=== PATIENT | female | born 1945 | race Caucasian/White ===

== ENCOUNTER 2019-05-13 13:25 | Emergency (ER) | payer MEDICARE, OTHER, SELFPAY ==
[2019-05-13 13:25] VITALS: BP 145/59; PULSE 76; RESP 16; TEMP 36.4; O2SAT 98; BMI 27.6
[2019-05-13 13:34] VITALS: BP 143/65; PULSE 70; RESP 15; O2SAT 99
--- NOTE | 2019-05-13 13:55 | CT_ITS ---
STUDY: CT ABDOMEN AND PELVIS WITHOUT CONTRAST REASON FOR EXAM: Female, 73 years old. Abdominal pain and fever, nausea RADIATION DOSAGE (If Supplied By Facility): CTDIvol = ( 7.25 ) mGy, DLP = ( 326.16 ) mGycm TECHNIQUE: Transaxial images were obtained from the dome of the diaphragm to the symphysis pubis without oral contrast, and without intravenous contrast. Sagittal and coronal images were reconstructed. Individualized dose optimization techniques were used for this CT. COMPARISON: None. FINDINGS: The visualized lung bases are unremarkable. The visualized portions of the heart are within normal limits. Normal liver. Normal gallbladder and extrahepatic biliary system. Normal spleen. Normal pancreas. Normal bilateral adrenal glands. Normal right kidney. Normal left kidney. Normal visualized stomach. Normal small intestine. There are multiple colonic diverticula consistent with diverticulosis. The appendix is visualized and appears normal. Appendix best seen on coronal recon image 51 Normal abdominal aorta. Normal inferior vena cava. Normal retroperitoneum. Normal urinary bladder. Normal visualized uterus. Normal abdominal wall. There are diffuse degenerative changes of the visualized lumbar spine. CT/Abdomen/Pelvis without Cont IMPRESSION: Colonic diverticulosis, no CT evidence of acute diverticulitis. No suspicious solid organ abnormality No free intraperitoneal fluid, air, or suspicious adenopathy Electronically Signed: Ford Chanel MD at 14:41 EDT , Service support ,
--- NOTE | 2019-05-13 13:56 | ED.DCSUM_ITS ---
History of Present Illness Chief Complaint: Nausea/Vomiting Informant: Patient, Family Onset: Yesterday Narrative: Currently nausea since yesterday. Constipation feeling. Stool softener taken yesterday with a bowel movement yesterday. Positive flatus. No fevers. Cu rrently nausea subsided. Had diverticulitis diagnosed by CT from urgent care [facility] [place] 3 to 4 weeks ago. Finished a 7-day course of Cipro and Flagyl. Saw PCP office on follow-up 2 days ago. Was doing well at that time. Reports had fever and diarrhea with her diverticulitis. Colonoscopy 8 years ago finding diverticulosis. Currently symptoms subsided. Feelings of urine urgency. Prior similar symptoms: Yes Past Medical History - Allergies and Home Meds Allergies/Adverse Reactions: Allergies Sulfa (Sulfonamide Antibiotics) Allergy (Verified 05/13/19 13:28) Hives Primary Care Physician: Alisha Gutierrez MD [STAFF PHYSICIAN] - Smoking Status: Never smoker Review of Systems General: Denies: Chills, Fever, Sweats Eyes: Denies: Visual changes - bilaterally, Diplopia ENT: Denies: Rhinorrhea, Sore throat Cardiovascular: Denies: Chest pain, Palpitations Respiratory: Denies: Dyspnea, Cough, Dyspnea on exertion Gastrointestinal: Reports: Nausea, Constipation. Denies: Abdominal pain, Vomiting, Diarrhea, Melena, Hematochezia Genitourinary: Denies: Dysuria, Hematuria, Frequency Musculoskeletal: Denies: Back pain, Extremity Pain Skin: Denies: Rash, Wounds Neurological: Denies: Headache, Weakness, Numbness Physical Exam Vital Signs/Narrative: Vital Signs Temp Pulse Resp BP Pulse Ox 05/13/19 13:34 70 15 143/65 H 99 05/13/19 13:25 97.6 F L 76 16 145/59 H 98 Inital Vital Signs reviewed: Yes General: Well nourished, Well developed, No Acute Distress Head: Normocephalic, Atraumatic Eyes: Perrl, EOMI ENT: Moist mucous membranes, No rhinorrhea Neck: Supple, Nontender Cardiovascular: Regular rate, Regular rhythm, No murmurs Respiratory: No distress, CTA bilaterally, Chest nontender Abdomen: Soft, Nondistended, Normal bowel sounds, - - Minimal suprapubic discomfort. Negative Muller's or McBurney's tenderness. Back: Nontender, Normal Inspection Extremities: Nontender, No edema Skin: Normal color, No rash Neurological: Alert, Oriented x3, Cranial nerves II-XII grossly intact, Normal Strength, Normal Sensation Psychological: Normal affect, Normal Mood Diagnostic/Tx/Re-eval Clinical Impression(s) from Imaging Studies Abdomen/Pelvis CT 05/13/19 13:55 IMPRESSION: Colonic diverticulosis, no CT evidence of acute diverticulitis. No suspicious solid organ abnormality No free intraperitoneal fluid, air, or suspicious adenopathy Electronically Signed: Ford Chanel MD at 14:41 EDT , Service support , Abnormal Lab Results 05/13/19 05/13/19 05/13/19 13:35 13:35 14:30 WBC 4.5 RBC 3.89 L Hgb 12.0 Hct 34.8 L MCV 89.5 MCH 30.8 MCHC 34.5 RDW Std Deviation 39.2 RDW Coeff of Kris 12.2 Plt Count 252 MPV 9.5 Immature Gran % (Auto) 0.200 Neut % (Auto) 44.4 L Lymph % (Auto) 46.2 H Lassen % (Auto) 8.1 Eos % (Auto) 1.1 Baso % (Auto) 0.0 Absolute Neuts (auto) 2.0 Absolute Lymphs (auto) 2.06 Absolute Nucleated RBC 0.00 Nucleated RBC % 0 Sodium 133 L Potassium 4.2 Chloride 103 Carbon Dioxide 23.0 Anion Gap 7 BUN 10 Creatinine 0.84 Estim Creat Clear Calc 54.47 Est GFR (MDRD) Af Amer 85 Est GFR (MDRD) Non-Af 70 BUN/Creatinine Ratio 11.8 Glucose 99 Calcium 9.0 Total Bilirubin 1.00 AST 19 ALT 19 Alkaline Phosphatase 86 Total Protein 7.8 Albumin 4.0 Globulin 3.8 Albumin/Globulin Ratio 1.1 Lipase 218 Urine Color Yellow Urine Clarity Clear Urine pH 8.0 Ur Specific [place] 1.010 Urine Protein Negative Urine Glucose (UA) Normal Urine Ketones 5 H Urine Occult Blood 10 H Urine Nitrite Negative Urine Bilirubin Negative Urine Urobilinogen Normal Ur Leukocyte Esterase Negative Urine RBC 0-5 SEEN Urine WBC 0-5 SEEN Ur Squamous Epith Cells 0 SEEN Urine Bacteria 0 SEEN Urine Mucus 0 SEEN - Medical Decision Making Patient currently asymptomatic, there is minimal suprapubic tenderness with no surgical belly. With her recent diverticulitis with constipation complaints, reimaging the labs to rule out any early diverticulitis. Results are negative. Labs are stable. Reevaluation remains asymptomatic. Discussed monitoring symptoms. Prescription for Zofran to use as needed. Signs and symptoms discussed return. Otherwise follow-up with her PCP. All questions were answered. ED Disposition - Plan for ED Patient: Disposition: Home or Assisted Living Diagnosis: Nausea, Nonspecific abdominal pain Instructions: ABDOMINAL PAIN, Unknown Cause, (Female) Prescriptions: Ondansetron [Zofran Odt] 4 mg PO Q8H PRN PRN #10 tablet PRN Reason: Nausea Referrals: Lucía Ortiz MD [Primary Care Provider] - 3-5 Days Additional Instructions: Negative CT scan. Labs stable. Monitor symptoms. Return if any worsening symptoms otherwise follow-up with your doctor.
[2019-05-13 14:05] LABS: Absolute Lymphocyte Count 2.06 X10^3/uL (0.83-4.51); Eosinophil# 0.05 X10^3/uL; Eosinophils% 1.1 % (0-5); Hematocrit 34.8 % (37-47); Lymphocyte # 2.06 X10^3/ul (4.0); Lymphocyte % 46.2 % (19-41); Mean Corp Hgb Conc 34.5 g/dL (32-36); Mean Corpuscular Hgb 30.8 pg (27.0-32.0); Mean Corpuscular Volume 89.5 fL (81-99); Mean Platelet Vol. 9.5 fl (6.2-12.0); Monocyte# 0.36 X10^3/uL; Monocyte% 8.1 % (0-10); NRBC Flagged by Analyzer 0 % (0-5); Neutrophil # 1.98 X10^3/uL (2.7-7.7); Neutrophil % 44.4 % (47-70); Platelet Count 252 K/mm3 (150-450); RBC Distribution Width CV 12.2 % (11.6-14.6); RBC Distribution Width SD 39.2 fl (35.1-43.9); Red Blood Count 3.89 M/mm3 (4.2-5.4); White Blood Count 4.5 K/mm3 (4.4-11.0)
[2019-05-13] MEDS: 0.9% Normal Saline 1,000 ML 1000 ML IV (14:11)
[2019-05-13 14:16] LABS: ALB/GLOB Ratio 1.1 RATIO (0.9-2.4); AST(SGOT) 19 U/L (15-37); Alanine Aminotransfer ALT/SGPT 19 U/L (13-56); Alkaline Phosphatase 86 U/L (45-117); Anion Gap 7 (5-15); BUN 10 mg/dL (7-18); BUN/Creat Ratio 11.8 RATIO (10-20); Chloride 103 mmol/L (98-107); Creatinine, Serum 0.84 mg/dL (0.55-1.02); EST Glomerular Filtration Rate 70 mL/min (>60); Est Glom Filt Rate - Afr Amer 85 mL/min (>60); Estimated Creatinine Clearance 54.47 ml/min; Globulin 3.8 g/dL (2.2-4.2); Glucose 99 mg/dL (74-106); Lipase 218 U/L (73-393); Potassium 4.2 mmol/L (3.5-5.1); Protein, Total 7.8 g/dL (6.4-8.2); Sodium Level 133 mmol/L (136-145)
[2019-05-13 14:42] LABS: Bacteria 0 SEEN /hpf (None Seen); Mucous, Urine 0 SEEN /hpf (<or=2+); Squamous Epithelial Cells - UA 0 SEEN /hpf (5-10)
[2019-05-13 14:44] LABS: Color, Urine Yellow (Yellow); Glucose, Dipstick Normal (Normal); Ketone-Dipstick 5 mg/dl (Negative); Leukocyte Esterase-Dipstick Negative /ul (Negative); Nitrite-Dipstick Negative (Negative); Occult Blood-Urine 10 /ul (Negative); Protein-Dipstick Negative (Negative); Urine Bilirubin Dipstick Negative (Negative); Urine Clarity Clear (Clear); Urine Urobilinogen Normal (Normal)
[2019-05-13 14:51] LABS: Red Blood Cells-Urine 0-5 SEEN /hpf (0-5); White Blood Cells 0-5 SEEN /hpf (0-5)
== END 2019-05-13 16:00 | disposition home or self-care (01) ==
PROVIDERS: Emergency Provider Emergency Medicine; Family Provider Internal Medicine; PCP Internal Medicine
DX: R10.30 Lower abdominal pain, unspecified (principal); R11.2 Nausea with vomiting, unspecified
CPT/HCPCS: 74176; 80053; 81001; 83690; 85025; 96360; 99285; J7030

== ENCOUNTER → 2019-07-22 | Outpatient (CLI) | payer MEDICARE, OTHER, SELFPAY | END | disposition home or self-care (01) | LOC: SL 22:42 | PROVIDERS: Family Provider Internal Medicine; PCP Internal Medicine; Referring Provider Internal Medicine; Visit Provider Internal Medicine | DX: G47.33 Obstructive sleep apnea (adult) (pediatric) (principal); G47.00 Insomnia, unspecified | CPT/HCPCS: 95810 ==

== ENCOUNTER 2020-10-04 11:25 | Emergency (ER) | payer MEDICARE, OTHER, SELFPAY ==
[2020-10-04 11:31] VITALS: BP 135/60; PULSE 75; RESP 19; TEMP 36.6; O2SAT 100; BMI 23.1
[2020-10-04 11:41] VITALS: O2SAT 100
--- NOTE | 2020-10-04 11:51 | EKG12_ITS ---
Test Reason : SOB Blood Pressure : / mmHG Vent. Rate : 060 BPM Atrial Rate : 060 BPM P-R Int : 164 ms QRS Dur : 088 ms QT Int : 452 ms P-R-T Axes : 043 -37 047 degrees QTc Int : 452 ms Normal sinus rhythm Left axis deviation Abnormal ECG Confirmed by ZECHARIAH WYMAN, PABLO ([id number]), non linear editor ANA VENTURA ([id number]) on 10/12/2020 10:18:12 AM Referred By: BROWN Confirmed By:VINCENT APPLE MD
--- NOTE | 2020-10-04 11:55 | NURSING ---
NO OLD EKGS
--- NOTE | 2020-10-04 11:57 | ED.VIS.GEN ---
History of Present Illness Chief Complaint: Shortness of Breath Informant: Patient Narrative: Patient is a 75-year-old female with a past medical history of Parkinson's disease, anxiety who presents to the emergency department for shortness of breath. Her symptoms have been intermittent and occur multiple times per day. This has been going on since before . She has around 6 episodes per day. Talking on the phone seems to make her symptoms worse. She does get some palpitations during these episodes and feels very anxious. She tries to talk herself out of it. Taking Ativan does help her symptoms but makes her feel groggy afterward so she does not like to take it. His anxiety is playing a large portion to this. She does not have any chest pain during these episodes. She has not had a cough. No leg swelling or calf pain. She denies any history of DVT/PE. No history of heart attacks. Past Medical History - Allergies and Home Meds Allergies/Adverse Reactions: Allergies Sulfa (Sulfonamide Antibiotics) Allergy (Verified 10/04/20 11:35) [facility] Primary Care Physician: Lucía Ortiz MD [Primary Care Provider] - 1 Day Prior records reviewed: Yes Smoking Status: Never smoker Review of Systems All systems negative except as indicated General: Denies: Chills, Fever, Sweats Eyes: Denies: Visual changes - bilaterally, Diplopia ENT: Denies: Rhinorrhea, Sore throat Cardiovascular: Denies: Chest pain, Palpitations Respiratory: Reports: Dyspnea. Denies: Cough Gastrointestinal: Denies: Abdominal pain, Nausea, Vomiting, Diarrhea Genitourinary: Denies: Dysuria, Hematuria, Frequency Musculoskeletal: Denies: Back pain, Extremity Pain Skin: Denies: Rash, Wounds Neurological: Denies: Headache, Weakness, Numbness Physical Exam Vital Signs/Narrative: Vital Signs Temp Pulse Resp BP Pulse Ox 10/04/20 11:31 98 F 75 19 H 135/60 H 100 Inital Vital Signs reviewed: Yes General: Well nourished, Well developed, No Acute Distress Head: Normocephalic, Atraumatic Eyes: Perrl, EOMI ENT: Moist mucous membranes, No rhinorrhea Neck: Supple, Nontender Cardiovascular: Regular rate, Regular rhythm, No murmurs Respiratory: No distress, CTA bilaterally, Chest nontender Abdomen: Soft, Nontender, Nondistended, Normal bowel sounds Back: Nontender, Normal Inspection Extremities: Nontender, No edema. Negative for: Calf Tenderness Skin: Normal color, No rash Neurological: Alert, Oriented x3 Psychological: Normal affect, Normal Mood Diagnostic/Tx/Re-eval - EKG Initial EKG Interpretation: - - Rate of 60 bpm and normal sinus rhythm. Normal intervals. Left axis deviation. No significant ST elevations or depressions. No T wave abnormalities. - Medical Decision Making Patient presents to the emergency department for intermittent shortness of breath. Upon arrival to the emergency department she is not tachycardic and satting well on room air. No increased work of breathing. Has clear lung sounds. This does appear to have a significant anxiety component to it as Ativan helps her symptoms when she takes it. Will check basic lab work, EKG and chest x-ray. Patient's work-up did not reveal any significant acute abnormality. I believe a lot of this is anxiety related. Her PCP did give her many resources that she does have a counselor she wants to start seeing. Is going to contact them tomorrow. I did commend she talk to her doctor about switching off the BuSpar to another antianxiety medication. I have low concern for PE as these come and go and she relates them to her stress especially with taking pills that do not make her feel well. She does feel countable going home at this time. Will discharge home in stable condition. All questions answered. ED Disposition - Plan for ED Patient: Disposition: Home or Assisted Living Diagnosis: Dyspnea, Anxiety Instructions: ED Anxiety Reaction, ED Dyspnea Referrals: Lucía Ortiz MD [Primary Care Provider] - 1 Day
--- NOTE | 2020-10-04 12:20 | RAD_ITS ---
STUDY: X-RAY CHEST REASON FOR EXAM: Female, 75 years old. DYSPNEA TECHNIQUE: Single AP portable view of the chest. COMPARISON: None. FINDINGS: EKG are seen. The lungs are clear and expanded. There is no demonstrated pleural abnormality. Normal size heart. Normal mediastinum and erik. Normal visualized pulmonary arteries. There is atherosclerotic tortuosity of the aortic arch and descending thoracic aorta. Normal visualized thoracic spine. Normal visualized ribs, clavicles, and shoulders. There is no demonstrated abnormality of the visualized soft tissue structures of the upper abdomen. RAD/Chest 1 View (Portable) IMPRESSION: No acute abnormality is seen. Electronically Signed: Helder Napoles, at 12:37 EST , Service support ,
[2020-10-04 12:23] LABS: Absolute Lymphocyte Count 1.46 X10^3/uL (0.83-4.51); Absolute Neutrophil Count 2.9 X10^3/uL (2.0-7.7); Basophil# 0.02 X10^3/uL; Basophil% 0.4 % (0-1); Eosinophil# 0.04 X10^3/uL; Eosinophils% 0.8 % (0-5); Hematocrit 35.1 % (37-47); Hemoglobin 12.2 g/dL (12.0-15.0); Lymphocyte # 1.46 X10^3/ul (4.0); Lymphocyte % 30.9 % (19-41); Mean Corp Hgb Conc 34.8 g/dL (32-36); Mean Corpuscular Hgb 31.4 pg (27.0-32.0); Mean Corpuscular Volume 90.5 fL (81-99); Mean Platelet Vol. 9.7 fl (6.2-12.0); Monocyte# 0.32 X10^3/uL; Monocyte% 6.8 % (0-10); NRBC Flagged by Analyzer 0 % (0-5); Neutrophil # 2.87 X10^3/uL (2.7-7.7); Neutrophil % 60.9 % (47-70); Platelet Count 236 K/mm3 (150-450); RBC Distribution Width CV 11.7 % (11.6-14.6); RBC Distribution Width SD 38.7 fl (35.1-43.9); Red Blood Count 3.88 M/mm3 (4.2-5.4); White Blood Count 4.7 K/mm3 (4.4-11.0)
[2020-10-04 12:42] LABS: Anion Gap 7 (5-15); BUN 21 mg/dL (7-18); BUN/Creat Ratio 23.6 RATIO (10-20); Calcium,Total 9.4 mg/dL (8.5-10.1); Chloride 111 mmol/L (98-107); Creatinine, Serum 0.89 mg/dL (0.55-1.02); EST Glomerular Filtration Rate 66 mL/min (>60); Est Glom Filt Rate - Afr Amer 80 mL/min (>60); Estimated Creatinine Clearance 47.89 ml/min; Glucose 92 mg/dL (74-106); Magnesium 2.3 mg/dL (1.6-2.6); Sodium Level 142 mmol/L (136-145)
[2020-10-04 13:19] VITALS: BP 146/65; PULSE 57; RESP 19; O2SAT 99
[2020-10-04 13:53] VITALS: BP 137/69; PULSE 63; RESP 15; O2SAT 99
--- NOTE | 2020-10-04 13:54 | ED.RN ---
DAUGHTER LICO AND SISTER IN LAW ALLIE UPDATED ON PT'S CONDITION, FINDINGS PER PT REQUEST. ALLIE WILL TRANSPORT PT HOME.
== END 2020-10-04 14:22 | disposition home or self-care (01) ==
PROVIDERS: Emergency Provider Emergency Medicine; PCP Internal Medicine
DX: R06.00 Dyspnea, unspecified (principal); F41.9 Anxiety disorder, unspecified; G20 Parkinson's disease; Z79.899 Other long term (current) drug therapy
CPT/HCPCS: 71045; 80048; 83735; 84484; 85025; 93005; 99285; A4216

== ENCOUNTER → 2020-10-07 12:31 | Outpatient (CLI) | payer MEDICARE, OTHER, SELFPAY ==
[2020-10-04 11:31] VITALS: BMI 23.1
== END ==
PROVIDERS: PCP Internal Medicine; Referring Provider Psychiatry & Neurology Sleep Medicine; Visit Provider Psychiatry & Neurology Sleep Medicine
DX: R00.2 Palpitations (principal); R06.02 Shortness of breath
CPT/HCPCS: 93225; 93226

== ENCOUNTER 2023-05-31 14:34 | Emergency (ER) | payer MEDICARE, OTHER, SELFPAY ==
[2023-05-31 14:36] VITALS: BP 109/44; PULSE 77; RESP 14; TEMP 36.6; O2SAT 94; BMI 25.8
--- NOTE | 2023-05-31 15:03 | EKG12_ITS ---
Test Reason : SYNCOPE Blood Pressure : / mmHG Vent. Rate : 075 BPM Atrial Rate : 075 BPM P-R Int : 184 ms QRS Dur : 086 ms QT Int : 398 ms P-R-T Axes : 046 -38 049 degrees QTc Int : 444 ms Normal sinus rhythm Left axis deviation Abnormal ECG Confirmed by ZECHARIAH WYMAN, PABLO ([id number]), editorial intern ELIZABETH RODRIGUEZ ([id number]) on 06/03/2023 8:43:40 AM Referred By: Confirmed By:VINCENT APPLE MD
--- NOTE | 2023-05-31 15:08 | RAD_ITS ---
STUDY: X-RAY CHEST REASON FOR EXAM: Female, 78 years old. Chest pain TECHNIQUE: Single AP portable view of the chest. COMPARISON: Comparison is made with prior study dated July 05, 2020. FINDINGS: EKG electrodes are seen. Minimal increased linear markings in the left mid lung suggests atelectasis. There is no demonstrated pleural abnormality. Normal size heart. Normal mediastinum and erik. Normal visualized pulmonary arteries. There is atherosclerotic tortuosity of the aortic arch and descending thoracic aorta. Normal visualized thoracic spine. Normal visualized ribs, clavicles, and shoulders. There is no demonstrated abnormality of the visualized soft tissue structures of the upper abdomen. RAD/Chest 1 View (Portable) IMPRESSION: Minimal atelectasis in the left midlung. Electronically Signed: Helder Napoles MD at 15:29 EDT ,
--- NOTE | 2023-05-31 15:13 | EDS_ITS ---
HPI History of Present Illness Chief Complaint: Syncope Detail of Chief Complaint: Passed out at a restaurant. Informant: patient Onset/Context/Timing Onset: Today Context: Sudden Onset Timing: Intermittent Current Severity: Gone Maximum Severity: Moderate Narrative Narrative: 78-year-old female history of Parkinson's disease. States that the Parkinson's medications have been causing her to have episodes of low blood pressure. They have been running relatively well this week 111/60 or so. Today she was in a dance class. After that she and friends went out to eat. While in the restaurant she felt lightheaded with standing and they lowered her to the ground. She did not fall or get hurt. Denies any headache, chest pain, shortness of breath or abdominal pain. Denies any nausea, vomiting, diarrhea or fever. No melena. No cardiac history. Prior similar symptoms: No Recent Illness/Hospitalization: No [facility] Medical History High cholesterol Hyperthyroidism Parkinson disease Home Medications pravastatin 20 mg tablet 20 mg PO QHS 05/13/19 [History Last Taken Unknown] carbidopa 25 mg-levodopa 100 mg tablet 1 ea PO .QID 10/04/20 [History Last Taken 05/31/23] carbidopa ER 50 mg-levodopa 200 mg tablet,extended release 1 tab PO BID 10/04/20 [History Last Taken 05/31/23] fludrocortisone 0.1 mg tablet 0.1 mg PO BID #60 tabs 05/31/23 [Rx Last Taken Unknown] gabapentin 100 mg capsule 100 mg PO TID 05/31/23 [History Last Taken 05/31/23] levothyroxine 75 mcg tablet 75 mcg PO .QD 05/31/23 [History Last Taken 05/31/23] lorazepam 0.5 mg tablet 0.5 mg PO DAILY PRN PRN anxiety 05/31/23 [History Last Taken Unknown] sertraline 100 mg tablet 100 mg PO DAILY 05/31/23 [History Last Taken 05/31/23] Allergy/AdvReac Type Severity Reaction Status Date / Time Sulfa (Sulfonamide Allergy Hives Verified 05/31/23 14:40 Antibiotics) Social History Smoking Status: Never smoker ROS ROS ED ROS Narrative Denies recent illness. Review of Systems ROS Unobtainable: Denies due to encephalopathy Constitutional Constitutional ED: Denies chills or fever(s) Eyes Eyes: Denies blurry vision ENT ENT ED: Denies ear pain Cardiovascular Cardiovascular: Denies chest pain Respiratory/Chest Respiratory/Chest: Denies cough or dyspnea Gastrointestinal Gastrointestinal: Denies abdominal pain, diarrhea, melena, nausea or vomiting Genitourinary Genitourinary ED: Denies dysuria Musculoskeletal Musculoskeletal: Denies arthralgias Integumentary Denies abscess Neurologic Neurologic: Denies headache(s) Psychiatric Psychiatric: Denies anxiety Endocrine Endocrinology: Denies cold intolerance Hematologic/Lymphatic Hematologic/Lymphatic: Reports none Allergic/Immunologic Allergic/Immunologic ED: Denies mouth swelling, tongue swelling or urticaria EXAM Physical Exam Narrative Exam Narrative: ?-year-old female no acute distress. Vital signs stable afebrile. Sitting upright in bed. Does not look ill. Clinically doing well at this time. Initial blood pressure 109/44. She does not look septic or toxic. H EENT exam unremarkable. Neck nontender no lymphadenopathy. Lungs clear to auscultation bilaterally. Heart regular rhythm rate about 75 no murmur. Chest wall nontender. Abdomen soft nontender. Moving all 4 extremities. Nontender no edema. Normal range of motion. Normal take away attendant strength. Neurologically she is awake and alert with no focal motor deficits. Const Vital Signs: 05/31/23 14:36 05/31/23 14:44 05/31/23 15:09 Temperature 98 F Temperature Source Temporal Pulse Rate 77 Pulse Rate [Lying] Pulse Rate [Standing (for 1 minute prior to obtaining)] Respiratory Rate 14 Respiratory Effort Normal Non-Labored Respiratory Pattern Normal Blood Pressure 109/44 L Blood Pressure [Lying] Blood Pressure [Sitting (for 1 minute prior to obtaining)] Blood Pressure [Standing (for 1 minute prior to obtaining)] Blood Pressure Mean 65 Blood Pressure Mean [Lying] Blood Pressure Mean [Sitting (for 1 minute prior to obtaining)] Blood Pressure Mean [Standing (for 1 minute prior to obtaining)] Pulse Ox 94 Oxygen Delivery Method Room Air Room Air 05/31/23 16:50 05/31/23 16:59 Temperature Temperature Source Pulse Rate 71 Pulse Rate [Lying] 71 Pulse Rate [Standing (for 1 minute prior to obtaining)] 87 Respiratory Rate Respiratory Effort Respiratory Pattern Blood Pressure 131/71 H Blood Pressure [Lying] 124/77 H Blood Pressure [Sitting (for 1 minute prior to obtaining)] 123/77 H Blood Pressure [Standing (for 1 minute prior to obtaining)] 79/51 L Blood Pressure Mean 91 Blood Pressure Mean [Lying] 92 Blood Pressure Mean [Sitting (for 1 minute prior to obtaining)] 92 Blood Pressure Mean [Standing (for 1 minute prior to obtaining)] 60 Pulse Ox Oxygen Delivery Method Positive well nourished and well developed; Negative for cachectic, contractures or unkempt General Appearance ED: well developed and NAD; Negative for unkempt, cachectic, contractures, cyanotic, diaphoretic or pallor Nutritional Appearance: Negative for cachectic HEENT Reports moist mucous membranes; Denies dry mucous membranes Negative for trauma or tenderness Mouth ED: No dry mucous membranes Mouth: No dry mucous membranes Eyes PERRL and EOMs intact bilaterally General Eye ED: Negative for pale conjunctiva or scleral icterus Neck no lymphadenopathy, supple and no JVD General: Negative for tenderness Chest Wall inspection of chest normal and palpation of chest normal Chest: Negative for other Resp normal respiratory effort and clear to auscultation bilaterally Effort and Inspection: Negative for retractions Auscultation: Negative for rales, rhonchi or wheezes Cardio regular rate, regular rhythm, S1 normal heart sound, S2 normal heart sound and no murmurs GI normal to inspection, nondistended, normoactive bowel sounds, non-tender, non- distended and no masses Inspection: Negative for abdominal distention Auscultation: normoactive bowel sounds Palpation: soft; Negative for tender, guarding, splenomegaly or mass Back/Spine no CVA tenderness General Back: Negative for CVA tenderness Cervical Spine: Negative for cervical spine tenderness Thoracic Spine / Upper Back: Negative for thoracic spinal tenderness or paraspinal muscle tenderness Extremity normal to inspection General Extremety ED: Negative for edema or tenderness General Extremity: Negative for edema Neuro oriented x3, CN's II-XII intact bilaterally and no sensory deficits noted Sensorium / Orientation: alert; Negative for orientation impaired Motor Exam: strength 5/5 throughout Psych mental status grossly normal Appearance: Negative for unkempt Attitude: No agitated Mood & Affect: Negative for depressed, anxious or tearful Skin no rashes or lesions noted, no wounds and skin turgor normal General Skin Exam: elasticity normal; Negative for jaundice or pallor Lesions: No lesion noted Rashes: No rashes noted Trauma: Negative for abrasion Wounds: Negative for wounds noted MDM MDM MDM Narrative Medical decision making narrative: 78-year-old female Parkinson's with a syncopal episode. Currently vital signs and exam are unremarkable. She undergo cardiac work-up. Repeat exam patient doing well at 4:17 PM. Blood pressure is 137/65. She is clinically doing well. She passed out several weeks ago also. She has not had any work-up for this. It is being assumed that her Parkinson's medication is causing her low blood pressure. They have adjusted her meds but she has had continued problems. Repeat exam patient is doing well at 5 PM. I did speak to her neurologist Dr. Allen Connolly out of [place]. He states the patient's had difficulty with autonomic dysfunction which lowers her blood pressure and also the medication are used to treat her Parkinson's disease. They are going to switch meds but the patient could not afford the other medication. So he has been adjusting the dosages. Patient was orthostatic positive so was treated with a liter normal saline. On repeat exam at 7:05 PM she is doing well standing up in the room. Orthostatics will be rechecked. She will be discharged home. She will be started on Florinef which Dr. Connolly and I discussed. And she will follow-up with his office. Lab Data Attestation: I reviewed the patient's lab results. Lab results narrative: CBC shows white count 5.6. H&H 10.7 and 31.2. Platelets are 182. Electrolytes show a gap of 3. BUN and creatinine 21.1. Glucose 113. Troponin is normal at 4. EKG is a sinus rhythm at 75. Chest x-ray remarkable. Orthostatic vital signs were positive when she stood up her blood pressure went to 81 systolic. She had symptoms. Labs: Laboratory Results - last 24 hr 05/31/23 15:20 WBC 5.6 RBC 3.37 L Hgb 10.7 L Hct 31.2 L MCV 92.6 MCH 31.8 MCHC 34.3 RDW Std Deviation 41.5 RDW Coeff of Kris 12.1 Plt Count 182 MPV 9.9 Immature Gran % (Auto) 0.400 Neut % (Auto) 65.5 Lymph % (Auto) 25.2 [place] % (Auto) 7.3 Eos % (Auto) 1.2 Baso % (Auto) 0.4 Absolute Neuts (auto) 3.7 Absolute Lymphs (auto) 1.42 Nucleated RBC % 0 Sodium 138 Potassium 3.9 Chloride 107 Carbon Dioxide 28.0 Anion Gap 3 L BUN 20 H Creatinine 1.10 H Estim Creat Clear Calc 36.98 Est GFR (MDRD) Af Amer 62 Est GFR (MDRD) Non-Af 51 L BUN/Creatinine Ratio 18.2 Glucose 113 H Calcium 8.4 L Troponin I High Sens 4 Radiography Chest X-Ray - ED: 1 View, Read by ED Physician, Read by Radiologist, Normal, Heart, Lungs, Mediastinum, Bony Structures, No Acute Disease and Chronic Changes Diagnostic Testing: Clinical Impression(s) from Imaging Studies Chest X-Ray 05/31/23 15:08 IMPRESSION: Minimal atelectasis in the left midlung. Electronically Signed: Helder Napoles MD at 15:29 EDT , Chest x-ray, portable, single view shows no acute abnormality. Interpreted by myself and radiologist. Normal cardiac silhouette and mediastinum. Rhythm Strip Rhythm Strip: Sinus Rhythm Rate: 75 Ectopy: None EKG Initial EKG: Attestation: I personally reviewed and interpreted this EKG as follows: Interpretation: Sinus Rhythm and No Acute Injury Pattern Comments: Sinus rhythm rate 75 no acute signs of MT, ischemia or dysrhythmia. Discharge Plan Triage Chief Complaint: Syncope ED Provider: Bay Barton Dx/Rx/DC Orders Clinical Impression: Acute dehydration, History of Parkinson's disease, Orthostatic hypotension, Syncope Instructions: ED Hypotension, Orthostatic Prescriptions: New fludrocortisone 0.1 mg tablet 0.1 mg PO BID Qty: 60 0RF No Action pravastatin 20 MG tablet 20 mg PO QHS Patient Comments: TAKE 1 TABLET BY MOUTH EVERYDAY AT BEDTIME carbidopa-levodopa 1 TABLET tablet extended release 1 tab PO BID Rx Instructions: AM AND HS carbidopa-levodopa 1 EACH tablet 1 ea PO .QID gabapentin 100 mg capsule 100 mg PO TID Patient Comments: TAKE 1 CAPSULE BY MOUTH THREE TIMES DAILY FOR 180 DAYS. lorazepam 0.5 mg tablet 0.5 mg PO DAILY PRN PRN (Reason: anxiety) Patient Comments: TAKE 1 TABLET BY MOUTH ONCE DAILY NEEDED (ANXIETY, PANIC) FOR UP TO 30 DAYS. levothyroxine 75 mcg tablet 75 mcg PO .QD Patient Comments: TAKE 1 TABLET BY MOUTH ONCE DAILY. TAKE ON EMPTY STOMACH. FOR THYROID. sertraline 100 mg tablet 100 mg PO DAILY Patient Comments: TAKE 1 TABLET BY MOUTH EVERY DAY Primary Care Provider: Lucía Ortiz Referrals: Lucía Ortiz MD [Primary Care Provider] - As Needed Ranjan Connolly MD [Non-Staff] - As soon as possible Activity Restrictions/Additional Instructions: You have low blood pressure with standing called orthostatic hypotension. It is probably from a combination of being mildly dehydrated and also from the Parkinson's medication. Continue your current meds. Plenty of fluids. Follow-up with Dr. Connolly for further evaluation and adjustments as needed of your Parkinson's meds. You will be started on a new medication called Florinef which is a steroid which will help you retain fluids and hopefully increase your blood pressure Disposition Disposition: Home, Self Care
[2023-05-31 15:38] LABS: Absolute Lymphocyte Count 1.42 X10^3/uL (0.83-4.51); Absolute Neutrophil Count 3.7 X10^3/uL (2.0-7.7); Basophil# 0.02 X10^3/uL; Basophil% 0.4 % (0-1); Eosinophil# 0.07 X10^3/uL; Eosinophils% 1.2 % (0-5); Hematocrit 31.2 % (37-47); Hemoglobin 10.7 g/dL (12.0-15.0); Lymphocyte # 1.42 X10^3/ul (0.83-4.51); Lymphocyte % 25.2 % (19-41); Mean Corp Hgb Conc 34.3 g/dL (32-36); Mean Corpuscular Hgb 31.8 pg (27.0-32.0); Mean Corpuscular Volume 92.6 fL (81-99); Mean Platelet Vol. 9.9 fl (6.2-12.0); Monocyte# 0.41 X10^3/uL; Monocyte% 7.3 % (0-10); NRBC Flagged by Analyzer 0 % (0-5); Neutrophil % 65.5 % (47-70); Platelet Count 182 K/mm3 (150-450); RBC Distribution Width CV 12.1 % (11.6-14.6); RBC Distribution Width SD 41.5 fl (35.1-43.9); Red Blood Count 3.37 M/mm3 (4.2-5.4); White Blood Count 5.6 K/mm3 (4.4-11.0)
[2023-05-31 15:57] LABS: Anion Gap 3 (5-15); BUN 20 mg/dL (7-18); BUN/Creat Ratio 18.2 RATIO (10-20); Calcium,Total 8.4 mg/dL (8.5-10.1); Chloride 107 mmol/L (98-107); EST Glomerular Filtration Rate 51 mL/min (>60); Est Glom Filt Rate - Afr Amer 62 mL/min (>60); Estimated Creatinine Clearance 36.98 ml/min; Glucose 113 mg/dL (74-106); Potassium 3.9 mmol/L (3.5-5.1); Sodium Level 138 mmol/L (136-145); Troponin-I HS 4 pg/mL (3.0-54.0)
[2023-05-31 16:50] VITALS: BP 123/77; BP 124/77; BP 79/51; PULSE 71; PULSE 87
[2023-05-31] MEDS: Acetaminophen 500 MG Tablet 1000 MG PO (16:57)
[2023-05-31] MEDS: 0.9% Normal Saline 1,000 ML 999 ML IV (16:58)
[2023-05-31 16:59] VITALS: BP 131/71; PULSE 71
[2023-05-31 19:16] VITALS: BP 127/72; BP 141/67; BP 80/35; PULSE 59; PULSE 82
--- NOTE | 2023-05-31 19:31 | ED.RN ---
ORTHOS POSITIVE, PER DR CID STILL OKAY TO DISCHARGE AT THIS TIME
== END 2023-05-31 19:32 | disposition home or self-care (01) ==
PROVIDERS: Emergency Provider Emergency Medicine; PCP Internal Medicine; Visit Provider Emergency Medicine
DX: R55 Syncope and collapse (principal); G20 Parkinson's disease; E86.0 Dehydration; I95.9 Hypotension, unspecified; E78.00 Pure hypercholesterolemia, unspecified; Z79.899 Other long term (current) drug therapy
CPT/HCPCS: 71045; 80048; 84484; 85025; 93005; 96360; 96361; 99285; A4216

== ENCOUNTER 2023-09-20 20:04 | Emergency (ER) | payer MEDICARE, OTHER, SELFPAY ==
[2023-09-20 20:06] VITALS: BP 106/53; PULSE 93; RESP 16; TEMP 36.9; O2SAT 98
[2023-09-20 20:08] VITALS: BP 106/53; PULSE 94; RESP 16; TEMP 36.9; O2SAT 98
[2023-09-20 20:20] VITALS: BMI 22.8
--- NOTE | 2023-09-20 20:31 | RAD_ITS ---
INDICATION: cough EXAMINATION/TECHNIQUE: X-RAY - XR Chest 1 View COMPARISON: Prior study dated: 05/31/2023. FINDINGS: LINES/DEVICES: None. LUNGS: No consolidation, edema or effusion. No pneumothorax. MEDIASTINUM AND CARDIOVASCULAR STRUCTURES: Cardiac silhouette not enlarged. Central airways and mediastinal contour are unremarkable. BONES AND SOFT TISSUES: Unremarkable. RAD/Chest 1 View (Portable) IMPRESSION: No radiographic evidence of acute cardiopulmonary disease. Electronically Signed: Fadi Zamora MD at 21:20 EST ,
--- NOTE | 2023-09-20 20:31 | EDS_ITS ---
HPI History of Present Illness Chief Complaint: General Illness Informant: patient Onset/Context/Timing Onset: Yesterday Narrative Narrative: Patient presents with URI symptoms that started yesterday. She describes body aches and generalized weakness. She states she feels as if she may have the flu. Symptoms started yesterday. Tonight she laid down for a nap and woke up around 5:30 or 6 PM. She was confused and thought it was early Saturday morning. She reports a fever up to 100.2 yesterday. [facility] Medical History High cholesterol Hyperthyroidism Parkinson disease Home Medications pravastatin 20 mg tablet 20 mg PO QHS 05/13/19 [History Last Taken Unknown] carbidopa 25 mg-levodopa 100 mg tablet 1 ea PO .5x\day 10/04/20 [History Last Taken 05/31/23] carbidopa ER 50 mg-levodopa 200 mg tablet,extended release 1 tab PO BID 10/04/20 [History Last Taken 05/31/23] gabapentin 100 mg capsule 100 mg PO TID 05/31/23 [History Last Taken 05/31/23] levothyroxine 75 mcg tablet 75 mcg PO DAILY 05/31/23 [History Last Taken 05/31/23] lorazepam 0.5 mg tablet 0.5 mg PO DAILY PRN PRN anxiety 05/31/23 [History Last Taken Unknown] sertraline 100 mg tablet 100 mg PO DAILY 05/31/23 [History Last Taken 05/31/23] fludrocortisone 0.1 mg tablet 0.1 mg PO DAILY 09/20/23 [History Last Taken Unknown] nirmatrelvir 300 mg (150 mg x2)-ritonavir 100 mg tablet,dose pack (Paxlovid) See Rx Instructions PO .COMPLEX #30 tabs 09/20/23 [Rx Last Taken Unknown] Allergy/AdvReac Type Severity Reaction Status Date / Time Sulfa (Sulfonamide Allergy Hives Verified 09/20/23 20:05 Antibiotics) Social History Smoking Status: Never smoker ROS ROS ED Constitutional Constitutional ED: Reports fever(s); Denies chills Eyes Eyes: Denies change in vision or discharge from eye(s) ENT ENT ED: Denies discharge from eye(s), rhinorrhea or sore throat Cardiovascular Cardiovascular: Denies chest pain or palpitations Respiratory/Chest Respiratory/Chest: Reports cough; Denies dyspnea Gastrointestinal Gastrointestinal: Denies abdominal pain, nausea or vomiting Genitourinary Genitourinary ED: Denies dysuria Musculoskeletal Musculoskeletal: Reports myalgias; Denies extremity pain Integumentary Denies Abrasions or rash Neurologic Neurologic: Reports weakness; Denies headache(s) Psychiatric Psychiatric: Denies anxiety or depression Allergic/Immunologic Allergic/Immunologic ED: Denies lip swelling or urticaria EXAM Physical Exam Const Vital Signs: 09/20/23 20:06 09/20/23 20:08 09/20/23 20:20 Temperature 98.4 F 98.4 F Temperature Source Temporal Temporal Pulse Rate 93 94 Respiratory Rate 16 16 Respiratory Pattern Normal Blood Pressure 106/53 L 106/53 L Blood Pressure Mean 70 70 Pulse Ox 98 98 Oxygen Delivery Method Room Air Room Air 09/20/23 21:16 Temperature 99 F Temperature Source Oral Pulse Rate 69 Respiratory Rate 18 Respiratory Pattern Blood Pressure 117/51 L Blood Pressure Mean 73 Pulse Ox 91 Oxygen Delivery Method Room Air Positive well nourished and well developed General Appearance ED: well developed HEENT Reports moist mucous membranes Eyes EOMs intact bilaterally Chest Wall inspection of chest normal and palpation of chest normal Resp normal respiratory effort and clear to auscultation bilaterally Cardio regular rate and regular rhythm GI non-tender Palpation: soft Extremity normal to inspection Neuro oriented x3 Neuro Narrative: No focal neurologic deficit. Psych mental status grossly normal Skin no rashes or lesions noted MDM MDM MDM Narrative Medical decision making narrative: Patient placed on cardiac rehabilitation specialist. EKG obtained to evaluate for cardiac arrhythmia/ischemia. Chest x-ray obtained to evaluate for acute lung pathology, cardiac size, or mediastinal abnormality. Labwork obtained to evaluate for leukocytosis, anemia, and electrolyte derangement. Urinalysis obtained to evaluate for infection/hematuria. Swab for COVID and influenza obtained. History & Record Review Discussion w/independent historian: Patient and Family Lab Data Attestation: I reviewed the patient's lab results. Labs: Laboratory Results - last 24 hr 09/20/23 09/20/23 20:25 21:10 WBC 5.3 RBC 3.66 L Hgb 11.1 L Hct 33.6 L MCV 91.8 MCH 30.3 MCHC 33.0 RDW Std Deviation 40.9 RDW Coeff of Kris 12.1 Plt Count 188 MPV 9.7 Immature Gran % (Auto) 0.400 Neut % (Auto) 80.0 H Lymph % (Auto) 13.0 L [place] % (Auto) 6.2 Eos % (Auto) 0.2 Baso % (Auto) 0.2 Absolute Neuts (auto) 4.2 Absolute Lymphs (auto) 0.69 L Nucleated RBC % 0 Sodium 137 Potassium 3.6 Chloride 106 Carbon Dioxide 26.0 Anion Gap 5 BUN 18 Creatinine 0.87 Estim Creat Clear Calc 46.76 Est GFR (MDRD) Af Amer 81 Est GFR (MDRD) Non-Af 67 BUN/Creatinine Ratio 20.7 H Glucose 122 H Calcium 8.5 Urine Color Yellow Urine Clarity Sl. Cloudy Urine pH 7.0 Ur Specific [place] 1.010 Urine Protein 30 H Urine Glucose (UA) Normal Urine Ketones 15 H Urine Occult Blood 150 H Urine Nitrite Negative Urine Bilirubin 1 H Urine Urobilinogen 4 H Ur Leukocyte Esterase 100 H Urine RBC 10-25 SEEN Urine WBC 25-50 SEEN Ur Squamous Epith Cells 0-5 SEEN Amorphous Sediment 1+ PHOS Urine Bacteria RARE Urine Mucus 0 SEEN Radiography Chest X-Ray - ED: 1 View, Read by ED Physician, Chronic Changes and No Infil trates Diagnostic Testing: Clinical Impression(s) from Imaging Studies Chest X-Ray 09/20/23 20:31 IMPRESSION: No radiographic evidence of acute cardiopulmonary disease. Electronically Signed: Fadi Zamora MD at 21:20 EST , EKG Initial EKG: Attestation: I personally reviewed and interpreted this EKG as follows: Interpretation: Sinus Rhythm (Sinus at 80 with no acute ischemia.) Treatment and Re-Evaluation :: CBC was a white count of 5.3 with a hemoglobin 11.1. 80% neutrophils noted. Chemistry studies unremarkable with normal renal function. Glucose is 122. Urinalysis reveals rare bacteria. She has no nitrites, but does have 25-50 white cells. Patient has no current urinary symptoms to this will be sent for culture but not empirically treated. Her COVID test is positive. Her influenza test is negative. Portable chest x-ray per my interpretation reveals chronic changes with no focal infiltrate. Radiology interpretation reviewed and agrees. Test results are discussed with the patient and daughter at bedside. While sitting at rest her O2 sat is 92% but will intermittently drop to 89. In light of this I did asked nursing staff to ambulate her. O2 sat is been 91 to 92%. She is interested in Paxlovid. I did review her current medication regimen and I do not see any significant interactions. I will send this prescription to the pharmacy for her to pick up driver tomorrow. Return instructions were provided. Discharge Plan Triage Chief Complaint: General Illness ED Provider: Dennise Ramires Dx/Rx/DC Orders Clinical Impression: COVID-19 Instructions: Coronavirus Disease 2019 (COVID-19): Overview, Coronavirus Disease 2019 (COVID-19): Caring for Yourself or Others Prescriptions: New Paxlovid 300 mg (150 mg x 2)-100 mg tablets,dose pack See Rx Instructions .ROUTE .COMPLEX Qty: 30 0RF Rx Instructions: take TWO 150 mg tablets of nirmatrelvir with ONE 100 mg tablet of ritonavir twice daily for 5 days No Action pravastatin 20 MG tablet 20 mg PO QHS Patient Comments: TAKE 1 TABLET BY MOUTH EVERYDAY AT BEDTIME carbidopa-levodopa 1 TABLET tablet extended release 1 tab PO BID Rx Instructions: AM AND HS carbidopa-levodopa 1 EACH tablet 1 ea PO .5x\day fludrocortisone 0.1 mg tablet 0.1 mg PO DAILY gabapentin 100 mg capsule 100 mg PO TID Patient Comments: TAKE 1 CAPSULE BY MOUTH THREE TIMES DAILY FOR 180 DAYS. lorazepam 0.5 mg tablet 0.5 mg PO DAILY PRN PRN (Reason: anxiety) Patient Comments: TAKE 1 TABLET BY MOUTH ONCE DAILY NEEDED (ANXIETY, PANIC) FOR UP TO 30 DAYS. levothyroxine 75 mcg tablet 75 mcg PO DAILY Patient Comments: TAKE 1 TABLET BY MOUTH ONCE DAILY. TAKE ON EMPTY STOMACH. FOR THYROID. sertraline 100 mg tablet 100 mg PO DAILY Patient Comments: TAKE 1 TABLET BY MOUTH EVERY DAY Primary Care Provider: Lucía Ortiz Referrals: Lucía Ortiz MD [Primary Care Provider] - 1 Week Disposition Disposition: Home, Self Care
--- NOTE | 2023-09-20 20:31 | EKG12_ITS ---
Test Reason : DYSRHYTHMIA Blood Pressure : / mmHG Vent. Rate : 080 BPM Atrial Rate : 080 BPM P-R Int : 174 ms QRS Dur : 082 ms QT Int : 354 ms P-R-T Axes : 033 -44 045 degrees QTc Int : 408 ms Normal sinus rhythm Left axis deviation Nonspecific ST abnormality Abnormal ECG Confirmed by ARVIN WYMAN, AMANDA ([id number]), city editor ELIZABETH RODRIGUEZ ([id number]) on 09/23/2023 10:47:11 AM Referred By: SAMIA Confirmed By:AMANDA SHERDIAN MD
[2023-09-20 20:48] LABS: Absolute Lymphocyte Count 0.69 X10^3/uL (0.83-4.51); Absolute Neutrophil Count 4.2 X10^3/uL (2.0-7.7); Basophil# 0.01 X10^3/uL; Basophil% 0.2 % (0-1); Eosinophil# 0.01 X10^3/uL; Eosinophils% 0.2 % (0-5); Hematocrit 33.6 % (37-47); Hemoglobin 11.1 g/dL (12.0-15.0); Lymphocyte # 0.69 X10^3/ul (0.83-4.51); Mean Corpuscular Hgb 30.3 pg (27.0-32.0); Mean Corpuscular Volume 91.8 fL (81-99); Mean Platelet Vol. 9.7 fl (6.2-12.0); Monocyte# 0.33 X10^3/uL; Monocyte% 6.2 % (0-10); NRBC Flagged by Analyzer 0 % (0-5); Neutrophil # 4.23 X10^3/uL (2.7-7.7); Platelet Count 188 K/mm3 (150-450); RBC Distribution Width CV 12.1 % (11.6-14.6); RBC Distribution Width SD 40.9 fl (35.1-43.9); Red Blood Count 3.66 M/mm3 (4.2-5.4); White Blood Count 5.3 K/mm3 (4.4-11.0)
[2023-09-20 21:02] LABS: Anion Gap 5 (5-15); BUN 18 mg/dL (7-18); BUN/Creat Ratio 20.7 RATIO (10-20); Calcium,Total 8.5 mg/dL (8.5-10.1); Chloride 106 mmol/L (98-107); Creatinine, Serum 0.87 mg/dL (0.55-1.02); EST Glomerular Filtration Rate 67 mL/min (>60); Est Glom Filt Rate - Afr Amer 81 mL/min (>60); Estimated Creatinine Clearance 46.76 ml/min; Glucose 122 mg/dL (74-106); Potassium 3.6 mmol/L (3.5-5.1); Sodium Level 137 mmol/L (136-145)
[2023-09-20 21:16] VITALS: BP 117/51; PULSE 69; RESP 18; TEMP 37.2; O2SAT 91
[2023-09-20 21:23] LABS: Mucous, Urine 0 SEEN /hpf (<or=2+)
[2023-09-20 21:29] LABS: Color, Urine Yellow (Yellow); Glucose, Dipstick Normal (Normal); Ketone-Dipstick 15 mg/dl (Negative); Leukocyte Esterase-Dipstick 100 /ul (Negative); Nitrite-Dipstick Negative (Negative); Occult Blood-Urine 150 /ul (Negative); Protein-Dipstick 30 mg/dl (Negative); Urine Clarity Sl. Cloudy (Clear); Urine Urobilinogen 4 mg/dl (Normal)
[2023-09-20 21:35] LABS: Urine Bilirubin Dipstick 1 mg/dL (Negative)
[2023-09-20 21:38] LABS: Red Blood Cells-Urine 10-25 SEEN /hpf (0-5); Squamous Epithelial Cells - UA 0-5 SEEN /hpf (5-10); White Blood Cells 25-50 SEEN /hpf (0-5)
[2023-09-20 21:39] LABS: Amorphous Sediment 1+ PHOS; Bacteria RARE /hpf (None Seen)
[2023-09-20 22:15] VITALS: BP 115/56; PULSE 76; O2SAT 91
--- NOTE | 2023-09-20 22:25 | ED.RN ---
ambulated pt on ra. spo2 varied from 91-95%. aware.
== END 2023-09-20 22:49 | disposition home or self-care (01) ==
PROVIDERS: Emergency Provider Emergency Medicine; PCP Internal Medicine; Visit Provider Emergency Medicine
DX: U07.1 COVID-19 (principal); E78.00 Pure hypercholesterolemia, unspecified; R41.0 Disorientation, unspecified; G20.A1 Parkinson's disease without dyskinesia, without mention of fluctuations
CPT/HCPCS: 71045; 80048; 81001; 85025; 87086; 87428; 93005; 99283; A4216

== ENCOUNTER 2024-08-12 13:04 | Observation (INO) | payer MEDICARE, OTHER, SELFPAY ==
[2024-08-12] VITALS (7 sets, daily range): BP systolic 82–149; BP diastolic 48–94; PULSE 61–74; RESP 16–18; TEMP 36.6–36.7; O2SAT 94–99; BMI 21.6; BMI 24.1
--- NOTE | 2024-08-12 14:44 | EKG12_ITS ---
Test Reason : SYNCOPE Blood Pressure : / mmHG Vent. Rate : 064 BPM Atrial Rate : 064 BPM P-R Int : 162 ms QRS Dur : 088 ms QT Int : 436 ms P-R-T Axes : 041 -42 054 degrees QTc Int : 449 ms Normal sinus rhythm Left axis deviation Abnormal ECG Confirmed by ARVIN WYMAN, AMANDA ([id number]), makeup editor ANA VENTURA ([id number]) on 08/13/2024 9:24:49 AM Referred By: Confirmed By:AMANDA SHERIDAN MD
--- NOTE | 2024-08-12 14:45 | EDS_ITS ---
HPI History of Present Illness Chief Complaint: Syncope Narrative Narrative: Chief complaint and HPI: Near syncope. 79-year-old female with history of Parkinson's disease and hypotension on fludrocortisone as well as midodrine 5 mg 3 times daily presents for evaluation of near syncope. Patient states she has been struggling with orthostatic hypotension. She states that she gets very lightheaded with near syncope symptoms when she changes positions. Patient states she was in the car today in which she stood up too fast and had an episode of near syncope. She was able to recover and sit back down on the car. She again had another episode while sitting in the car. Patient endorses decreased p.o. intake secondary to her carbidopa levodopa causing nausea. She admits to not drinking enough fluids. She denies any fever, chills, chest pain, headache, shortness of breath abdominal pain, nausea, vomiting, dysuria. Review of systems: See HPI Medications: As listed on the chart Allergies: As listed on the chart PFSH: Per chart Vital signs: As listed on the chart. Reviewed. Physical exam: Gen: A&O x3, NAD Head: Normocephalic, atraumatic Eyes: No sclera icterus, conjunctiva clear ENT: Moist mucous membranes Neck: Trachea midline, No JVD CV: RRR, no murmurs, no peripheral edema Resp: Lungs CTA BL, no w/r/c GI: Abd soft, non-distended, non-tender, no r/r/g Musc: Full ROM, no deformity Skin: Warm, dry Neuro: Alert, oriented, grossly intact, sensation intact Psych: Cooperative, appropriate mood and affect [facility] Medical History High cholesterol Hyperthyroidism Parkinson disease Home Medications ?Medication ?Instructions ?Recorded ?Last Taken ?Type pravastatin 20 mg tablet 20 mg PO QHS 05/13/19 Unknown History carbidopa 25 mg-levodopa 100 mg 1 ea PO .5x\day 10/04/20 05/31/23 History tablet carbidopa ER 50 mg-levodopa 200 mg 1 tab PO BID 10/04/20 05/31/23 History tablet,extended release gabapentin 100 mg capsule 100 mg PO BID 05/31/23 05/31/23 History levothyroxine 75 mcg tablet 75 mcg PO DAILY 05/31/23 05/31/23 History lorazepam 0.5 mg tablet 0.5 mg PO DAILY PRN PRN anxiety 05/31/23 Unknown History sertraline 100 mg tablet 100 mg PO DAILY 05/31/23 05/31/23 History fludrocortisone 0.1 mg tablet 0.1 mg PO DAILY 09/20/23 Unknown History Allergy/AdvReac Type Severity Reaction Status Date / Time Sulfa (Sulfonamide Allergy Hives Verified 09/20/23 20:05 Antibiotics) Social History (Updated 08/12/24 @ 13:11 by Kassidy Sun) household members: none Smoking Status: Never smoker EXAM Physical Exam Const Vital Signs: 08/12/24 13:05 08/12/24 13:11 08/12/24 15:04 Temperature 97.9 F Temperature Source Oral Pulse Rate 68 64 Pulse Rate [Lying] Pulse Rate [Sitting (for 1 minute prior to obtaining)] Respiratory Rate 18 16 Respiratory Effort Normal Non-Labored Respiratory Pattern Normal Blood Pressure 92/56 L 115/59 L Blood Pressure [Lying] Blood Pressure [Sitting (for 1 minute prior to obtaining)] Blood Pressure [Standing (for 1 minute prior to obtaining)] Blood Pressure Mean 68 77 Blood Pressure Mean [Lying] Blood Pressure Mean [Sitting (for 1 minute prior to obtaining)] Blood Pressure Mean [Standing (for 1 minute prior to obtaining)] Pulse Ox 94 99 Oxygen Delivery Method Room Air 08/12/24 15:24 Temperature Temperature Source Pulse Rate Pulse Rate [Lying] 68 Pulse Rate [Sitting (for 1 minute prior to obtaining)] 74 Respiratory Rate Respiratory Effort Respiratory Pattern Blood Pressure Blood Pressure [Lying] 129/68 H Blood Pressure [Sitting (for 1 minute prior to obtaining)] 133/76 H Blood Pressure [Standing (for 1 minute prior to obtaining)] 82/48 L Blood Pressure Mean Blood Pressure Mean [Lying] 88 Blood Pressure Mean [Sitting (for 1 minute prior to obtaining)] 95 Blood Pressure Mean [Standing (for 1 minute prior to obtaining)] 59 Pulse Ox Oxygen Delivery Method MDM MDM MDM Narrative Medical decision making narrative: 79-year-old female with history of Parkinson's disease and hypotension presents for evaluation of near syncope. Patient had 2 episodes of near syncope today. One while changing positions the other sitting. Differential diagnosis includes but is not limited to symptomatic hypotension, orthostatic hypotension, electrolyte abnormality, dehydration UTI. Suspect less likely ACS. NS bolus ordered. Orthostatic vital signs were positive here in the emergency department. This was after 1 L NS bolus was given. Patient went from a blood pressure of 133/76 with a heart rate of 74 at sitting at standing she was 82/48. EKG and chest x-ray reviewed see below. CBC without leukocytosis. Patient has baseline anemia with a hemoglobin of 10.3. BMP shows renal insufficiency versus HOOD. Creatinine is 1.06. Her creatinine in September was 0.87. Troponin unremarkable. UA concerning for UTI. Patient has blood, leuk esterase, WBCs, +1 bacteria. Urine culture sent. Rocephin ordered. UTI may be contributing to patient's symptoms. Patient will warrant admission to the hospital. Patient was discussed with hospitalist, Dr. Pringle. She agrees with admission for observation and continued hydration. Patient was updated of all the results and confirmed understand the plan. EKG: Interpreted by me/EM physician: EKG shows normal sinus rhythm without any acute ischemic changes. Heart rate 64. Diagnostic: Interpreted by me/EM physician: Chest x-ray without pneumonia, cardiomegaly, pneumothorax, effusion Impression: 1. Orthostatic hypotension with near syncope 2. Renal insufficiency 3. UTI 5. History of Parkinson's disease with orthostatic hypotension Lab Data Labs: Laboratory Results - last 24 hr 08/12/24 14:48 WBC 5.8 RBC 3.41 L Hgb 10.3 L Hct 32.3 L MCV 94.7 MCH 30.2 MCHC 31.9 L RDW Std Deviation 43.5 RDW Coeff of Kris 12.5 Plt Count 217 MPV 9.6 Immature Gran % (Auto) 0.300 Neut % (Auto) 66.1 Lymph % (Auto) 24.4 [place] % (Auto) 7.8 Eos % (Auto) 0.9 Baso % (Auto) 0.5 Absolute Neuts (auto) 3.8 Absolute Lymphs (auto) 1.41 Nucleated RBC % 0 Sodium 142 Potassium 4.0 Chloride 110 H Carbon Dioxide 27.0 Anion Gap 6 BUN 23 H Creatinine 1.06 H Estim Creat Clear Calc 37.77 Est GFR (MDRD) Af Amer 64 Est GFR (MDRD) Non-Af 53 L BUN/Creatinine Ratio 21.7 H Glucose 98 Calcium 8.9 Troponin I High Sens 5 Urine Color Yellow Urine Clarity Clear Urine pH 7.0 Ur Specific [place] 1.005 Urine Protein Negative Urine Glucose (UA) Normal Urine Ketones Negative Urine Occult Blood 10 H Urine Nitrite Negative Urine Bilirubin Negative Urine Urobilinogen Normal Ur Leukocyte Esterase 500 H Urine RBC 0 SEEN Urine WBC 5-10 SEEN Ur Squamous Epith Cells 0 SEEN Urine Bacteria 1+ Urine Mucus 0 SEEN Radiography Diagnostic Testing: Clinical Impression(s) from Imaging Studies Chest X-Ray 08/12/24 14:50 IMPRESSION: No acute abnormality is seen. Electronically Signed: Helder Napoles MD at 15:12 EDT , Discharge Plan Triage Chief Complaint: Syncope ED Provider: Keven Bello Dx/Rx/DC Orders Prescriptions: No Action pravastatin 20 MG tablet 20 mg PO QHS Patient Comments: TAKE 1 TABLET BY MOUTH EVERYDAY AT BEDTIME carbidopa-levodopa 1 TABLET tablet extended release 1 tab PO BID Rx Instructions: AM AND HS carbidopa-levodopa 1 EACH tablet 1 ea PO .5x\day fludrocortisone 0.1 mg tablet 0.1 mg PO DAILY gabapentin 100 mg capsule 100 mg PO BID Patient Comments: TAKE 1 CAPSULE BY MOUTH THREE TIMES DAILY FOR 180 DAYS. lorazepam 0.5 mg tablet 0.5 mg PO DAILY PRN PRN (Reason: anxiety) Patient Comments: TAKE 1 TABLET BY MOUTH ONCE DAILY NEEDED (ANXIETY, PANIC) FOR UP TO 30 DAYS. levothyroxine 75 mcg tablet 75 mcg PO DAILY Patient Comments: TAKE 1 TABLET BY MOUTH ONCE DAILY. TAKE ON EMPTY STOMACH. FOR THYROID. sertraline 100 mg tablet 100 mg PO DAILY Patient Comments: TAKE 1 TABLET BY MOUTH EVERY DAY Primary Care Provider: Lucía Ortiz Referrals: Lucía Ortiz MD [Primary Care Provider] - Print Language: Spanish
--- NOTE | 2024-08-12 14:50 | RAD_ITS ---
STUDY: X-RAY CHEST REASON FOR EXAM: Female, 79 years old. Near syncope TECHNIQUE: Single AP portable view of the chest. COMPARISON: Comparison is made with prior study dated September 20, 2023. FINDINGS: EKG electrodes are seen. The lungs are clear and expanded. There is no demonstrated pleural abnormality. Normal size heart. Normal mediastinum and erik. Normal visualized pulmonary arteries. There is atherosclerotic calcification of the aortic arch with tortuosity. There are degenerative changes of the visualized thoracic spine. Normal visualized ribs, clavicles, and shoulders. There is no demonstrated abnormality of the visualized soft tissue structures of the upper abdomen. RAD/Chest 1 View (Portable) IMPRESSION: No acute abnormality is seen. Electronically Signed: Helder Napoles MD at 15:12 EDT ,
[2024-08-12 15:00] LABS: Mucous, Urine 0 SEEN /hpf (<or=2+); Red Blood Cells-Urine 0 SEEN /hpf (0-5); Squamous Epithelial Cells - UA 0 SEEN /hpf (5-10)
[2024-08-12] MEDS: 0.9% Normal Saline (1000mL) 1,000 ML 999 ML IV (15:07)
[2024-08-12 15:24] LABS: Color, Urine Yellow (Yellow); Glucose, Dipstick Normal (Normal); Ketone-Dipstick Negative (Negative); Leukocyte Esterase-Dipstick 500 /ul (Negative); Nitrite-Dipstick Negative (Negative); Occult Blood-Urine 10 /ul (Negative); Protein-Dipstick Negative (Negative); Specific Gravity, Urine 1.005 (1.002-1.030); Urine Bilirubin Dipstick Negative (Negative); Urine Clarity Clear (Clear); Urine Urobilinogen Normal (Normal)
[2024-08-12 15:28] LABS: Absolute Lymphocyte Count 1.41 X10^3/uL (0.83-4.51); Absolute Neutrophil Count 3.8 X10^3/uL (2.0-7.7); Basophil# 0.03 X10^3/uL; Basophil% 0.5 % (0-1); Eosinophil# 0.05 X10^3/uL; Eosinophils% 0.9 % (0-5); Hematocrit 32.3 % (37-47); Hemoglobin 10.3 g/dL (12.0-15.0); Lymphocyte # 1.41 X10^3/ul (0.83-4.51); Lymphocyte % 24.4 % (19-41); Mean Corp Hgb Conc 31.9 g/dL (32-36); Mean Corpuscular Hgb 30.2 pg (27.0-32.0); Mean Corpuscular Volume 94.7 fL (81-99); Mean Platelet Vol. 9.6 fl (6.2-12.0); Monocyte# 0.45 X10^3/uL; Monocyte% 7.8 % (0-10); NRBC Flagged by Analyzer 0 % (0-5); Neutrophil # 3.83 X10^3/uL (2.7-7.7); Neutrophil % 66.1 % (47-70); Platelet Count 217 K/mm3 (150-450); RBC Distribution Width CV 12.5 % (11.6-14.6); RBC Distribution Width SD 43.5 fl (35.1-43.9); Red Blood Count 3.41 M/mm3 (4.2-5.4); White Blood Count 5.8 K/mm3 (4.4-11.0)
[2024-08-12 15:32] LABS: Bacteria 1+ /hpf (None Seen)
[2024-08-12 15:33] LABS: White Blood Cells 5-10 SEEN /hpf (0-5)
[2024-08-12 15:39] LABS: Anion Gap 6 (5-15); BUN 23 mg/dL (7-18); BUN/Creat Ratio 21.7 RATIO (10-20); Calcium,Total 8.9 mg/dL (8.5-10.1); Chloride 110 mmol/L (98-107); Creatinine, Serum 1.06 mg/dL (0.55-1.02); EST Glomerular Filtration Rate 53 mL/min (>60); Est Glom Filt Rate - Afr Amer 64 mL/min (>60); Estimated Creatinine Clearance 37.77 ml/min; Glucose 98 mg/dL (74-106); Sodium Level 142 mmol/L (136-145); Troponin-I HS 5 pg/mL (3.0-54.0)
[2024-08-12] MEDS: Ceftriaxone 1 GM/50 ML BAG IV (16:12)
--- NOTE | 2024-08-12 16:44 | HP.PCM.HOS_ITS ---
HPI - General General Date of Admission: 08/12/24 Date of Service: 08/12/24 Chief Complaint: Presyncope HPI Narrative ANEL HERNANDEZ, is a 79 F with a history of Parkinson's, orthostatic hypotension, hypothyroidism who presented to [facility] ED 08/12/2024 due to 2 presyncopal episodes. Patient was found to have slightly elevated BUN and creatinine in the ED and was also orthostatic positive hospitalist contacted for admission. Patient evaluated with family member at bedside. Patient reports that she is struggled with orthostatic hypotension in relation to her Parkinson's for a long time and has been on fludrocortisone, was admitted at [facility] about a month ago for a fall secondary to her orthostatic hypotension and she was started on midodrine. This has been helpful to her however today she had an episode when she got out of the car and she was standing and friend was nearby and helped lower her to the ground, she was responding during this event though not purposefully and she does not remember it fully but does remember feeling dizzy/lightheaded prior to this episode, lasted less than 1 to 2 minutes. Later she was still with her friend and was going to get out of the car and was sitting on the side of the seat waiting for her friend to come around to her side when she had a similar episode with decreased level of consciousness, still responding per friend but not purposeful and she does not remember the episode well, this lasted less than 2 minutes. She has frequent problems with the lightheaded/dizziness but usually resolves when she lays her head down on her arms and sits down but this time was just worse than usual. Patient reports she has not felt well over this past month as she had COVID 3 weeks ago but symptoms have now resolved. She has had decreased p.o. intake over the past year so that is worsened recently despite her attempts to drink protein shakes and eat her daughter estimates she consumes less than 1000 carlitos a day. Patient attributes this to her carbidopa levodopa as it makes her nauseous. Following with Dr. Mitchell at [facility] for this. Patient denies any urinary burning, frequency, suprapubic tenderness, no fevers or chills. Reports she has had urinary tract infections in the past and she does not think she has 1 now. No abdominal pain no or swelling in the legs. [facility] Medical History High cholesterol Hyperthyroidism Parkinson disease Home Medications ?Medication ?Instructions ?Recorded ?Last Taken ?Type pravastatin 20 mg tablet 20 mg PO QHS 05/13/19 Unknown History carbidopa 25 mg-levodopa 100 mg 1 ea PO .5x\day 10/04/20 05/31/23 History tablet carbidopa ER 50 mg-levodopa 200 mg 1 tab PO BID 10/04/20 05/31/23 History tablet,extended release gabapentin 100 mg capsule 100 mg PO BID 05/31/23 05/31/23 History levothyroxine 75 mcg tablet 75 mcg PO DAILY 05/31/23 05/31/23 History lorazepam 0.5 mg tablet 0.5 mg PO DAILY PRN PRN anxiety 05/31/23 Unknown History sertraline 100 mg tablet 100 mg PO DAILY 05/31/23 05/31/23 History fludrocortisone 0.1 mg tablet 0.1 mg PO DAILY 09/20/23 Unknown History Allergy/AdvReac Type Severity Reaction Status Date / Time Sulfa (Sulfonamide Allergy Hives Verified 09/20/23 20:05 Antibiotics) Social History (Updated 08/12/24 @ 13:11 by Kassidy Sun) household members: none Smoking Status: Never smoker ROS ROS Narrative General: Denies fever/chills HENT: Denies headache, denies stuffy nose, denies sore throat EYES: Denies changes in vision Resp: Denies cough, denies shortness of breath Cardiac: Denies chest pain GI: Denies abdominal pain, denies changes in bowel, some nausea with her Sinemet : Denies changes in urination Extremity: Denies swelling MSK: Denies weakness Neuro: Denies any numbness/tingling, positive for dizzy spells when she stands up and known orthostatic hypotension Heme: Denies any bleeding or bruising Skin: Denies rashes Psychiatric: No complaints voiced Vital Signs Vital Signs Vital Signs: 08/12/24 13:05 08/12/24 13:11 08/12/24 15:04 Temperature 97.9 F Temperature Source Oral Pulse Rate 68 64 Pulse Rate [Lying] Pulse Rate [Sitting (for 1 minute prior to obtaining)] Respiratory Rate 18 16 Respiratory Effort Normal Non-Labored Respiratory Pattern Normal Blood Pressure 92/56 L 115/59 L Blood Pressure [Lying] Blood Pressure [Sitting (for 1 minute prior to obtaining)] Blood Pressure [Standing (for 1 minute prior to obtaining)] Blood Pressure Mean 68 77 Blood Pressure Mean [Lying] Blood Pressure Mean [Sitting (for 1 minute prior to obtaining)] Blood Pressure Mean [Standing (for 1 minute prior to obtaining)] Pulse Ox 94 99 Oxygen Delivery Method Room Air 08/12/24 15:24 Temperature Temperature Source Pulse Rate Pulse Rate [Lying] 68 Pulse Rate [Sitting (for 1 minute prior to obtaining)] 74 Respiratory Rate Respiratory Effort Respiratory Pattern Blood Pressure Blood Pressure [Lying] 129/68 H Blood Pressure [Sitting (for 1 minute prior to obtaining)] 133/76 H Blood Pressure [Standing (for 1 minute prior to obtaining)] 82/48 L Blood Pressure Mean Blood Pressure Mean [Lying] 88 Blood Pressure Mean [Sitting (for 1 minute prior to obtaining)] 95 Blood Pressure Mean [Standing (for 1 minute prior to obtaining)] 59 Pulse Ox Oxygen Delivery Method Weight Weight: 57.062 kg Body Mass Index (BMI) 21.6 Physical Exam Narrative General: Alert, oriented, no apparent distress HEENT: Atraumatic, normocephalic Eyes: Anicteric, normal conjunctiva, extraocular movements grossly intact Neck: Supple Respiratory: Clear to auscultation bilaterally, normal respiratory effort Cardiovascular: Regular rate and rhythm GI: Soft, nontender, nondistended Extremities: No edema Musculoskeletal: Moving all extremities Neuro: No overt focal neurological deficits Skin: No rashes appreciated Psych: Cooperative Results Lab / Micro Data 08/12/24 14:48 08/12/24 14:48 Labs: Laboratory Results - last 24 hr 08/12/24 14:48: WBC 5.8, RBC 3.41 L, Hgb 10.3 L, Hct 32.3 L, MCV 94.7, MCH 30.2, MCHC 31.9 L, RDW Std Deviation 43.5, RDW Coeff of Kris 12.5, Plt Count 217, MPV 9.6, Immature Gran % (Auto) 0.300, Neut % (Auto) 66.1, Lymph % (Auto) 24.4, [place] % (Auto) 7.8, Eos % (Auto) 0.9, Baso % (Auto) 0.5, Absolute Neuts (auto) 3.8, Absolute Lymphs (auto) 1.41, Nucleated RBC % 0, Sodium 142, Potassium 4.0, C hloride 110 H, Carbon Dioxide 27.0, Anion Gap 6, BUN 23 H, Creatinine 1.06 H, Estim Creat Clear Calc 37.77, Est GFR (MDRD) Af Amer 64, Est GFR (MDRD) Non-Af 53 L, BUN/Creatinine Ratio 21.7 H, Glucose 98, Calcium 8.9, Troponin I High Sens 5, Urine Color Yellow, Urine Clarity Clear, Urine pH 7.0, Ur Specific [place] 1.005, Urine Protein Negative, Urine Glucose (UA) Normal, Urine Ketones Negative, Urine Occult Blood 10 H, Urine Nitrite Negative, Urine Bilirubin Negative, Urine Urobilinogen Normal, Ur Leukocyte Esterase 500 H, Urine RBC 0 SEEN, Urine WBC 5-10 SEEN, Ur Squamous Epith Cells 0 SEEN, Urine Bacteria 1+, Urine Mucus 0 SEEN Imaging Radiology Impression Chest X-Ray 08/12/24 14:50 IMPRESSION: No acute abnormality is seen. Electronically Signed: Helder Napoles MD at 15:12 EDT , Assessment & Plan Assessment/Plan (1) Pre-syncope: PLAN: Plan # Presyncope secondary to orthostatic hypotension -Admit to telemetry, EKG in the ED showed normal sinus rhythm with heart rate of 64 and QTc 449 -Patient has known orthostatic hypotension and is on fludrocortisone and 5 3 times daily of midodrine, patient's episodes today were worse than usual and she usually does not have any episodes sitting down which prompted a large part of their concern -Patient with slight elevation in BUN/creatinine and reports poor p.o. intake, will give gentle IV fluids -Increase midodrine -Continue fludrocortisone -Suspect this is all autonomic dysfunction due to her Parkinson's -Will not repeat orthostats in the a.m., would go symptomatically for patient as she reports her systolic often drops to 60s and she is virtually always orthostatic positive -Will need to follow-up with her neurologist upon discharge -She does report recent complete syncopal workup at [facility] last month including echocardiogram and reports everything was normal, also previously had event monitor which was also unrevealing -Will not repeat this workup at this time -Did discuss patient's medicines, she is on gabapentin and she usually takes this twice daily, she does not find this helpful for her feet and is agreeable to stopping this as this may be contributing to the above #Hypothyroidism -Continue Synthroid # Parkinson's disease -Continue home medications -Will need to follow with her neurologist on discharge #Depression -Sertraline increased to 150 mg 4 to 6 months ago, will continue -Patient reports she has not required the Ativan in a long time so do not think that this is contributing #Abnormal UA -Mildly abnormal UA, patient reports she has had UTIs in the past and does not feel like she has been currently -Denies urinary burning, frequency, suprapubic pain -Urine culture sent, if positive can continue antibiotics however will hold off on empiric antibiotics at this time given lack of symptoms #DVT ppx: SCDs Rika Pringle MD Time spent in the patient's overall evaluation,decision-making process, review of diagnostic data, adjustment of management, discussion with other providers, nursing nursing and ancillary staff involved in patient's care documentation, 56 Minutes Charges/Coding Visit Charges Inpatient E&M: 05675 Init Hosp L2
[2024-08-12] MEDS: 0.9% Normal Saline (1000mL) 1,000 ML 50 ML IV (18:39)
[2024-08-12] MEDS: 0.9% Saline Lock 10 ML Syringe IV (18:41)
[2024-08-12] MEDS: Midodrine HCl 5 MG Tablet 10 MG PO (18:50)
--- OUTSIDE RECORDS SUMMARY | 2024-08-12 19:46 | XMS RPT_ITS | CCD ---
Author Organization [facility] Care Team Providers Care Healthcare Or Medical Name Role Phone Angel WYMAN, Marvel Primary Care Provider Angel WYMAN, Marvel Primary Care Provider Robert BENZ, Kim Unavailable ZHANE SYLVESTER Referring Unavailable GANTA, MARVEL Primary Care Unavailable ZHANE SYLVESTER Referring Unavailable GANTA, MARVEL Primary Care Unavailable ZHANE SYLVESTER Referring Unavailable GANTA, MARVEL Primary Care Unavailable RAMSEY MAYORGA Attending Unavailable ALEXA WATERS Admitting Unavailable GANTA, MARVEL Primary Care Unavailable GANTA, MARVEL Primary Care Unavailable AMINATA ROYAL Referring Unavailable GANTA, MARVEL Primary Care Unavailable SILVANO VANCE Attending Unavailable GANTA, MARVEL Primary Care Unavailable GANTA, MARVEL Primary Care Unavailable GANTA, MARVEL Primary Care Unavailable ERA GAGNON Attending Unavailable GANTA, MARVEL Primary Care Unavailable JUDDBOW SILVANO L Attending Unavailable GANTA, MARVEL Primary Care Unavailable ZHANE SYLVESTER Attending Unavailable GANTA, MARVEL Primary Care Unavailable DENBOW, SILVANO L Referring Unavailable GANTA, MARVEL Primary Care Unavailable OLDER AMINATA Attending Unavailable GANTA, MARVEL Attending Unavailable GANTA, MARVEL Primary Care Unavailable GANTA, MARVEL Primary Care Unavailable MELLORS, MARY Referring Unavailable GANTA, MARVEL Primary Care Unavailable MELLORS, MARY Referring Unavailable MELLORS, MARY Attending Unavailable GANTA, MARVEL Primary Care Unavailable RANJAN CONNOLLY JR Attending Unavailable GANTA, MARVEL Primary Care Unavailable WANDA KRUGER Attending Unavailable GANTA, MARVEL Primary Care Unavailable MELLORS, MARY Referring Unavailable GANTA, MARVEL Primary Care Unavailable GANTA, MARVEL Attending Unavailable GANTA, MARVEL Primary Care Unavailable SAYRA MABRY Attending Unavailable THUESTALOREE WrightA Trinidad Referring Unavailable KALKA, ERA Referring Unavailable KALKA, ERA Attending Unavailable GANTA, MARVEL Primary Care Unavailable GANTA, MARVEL Primary Care Unavailable GANTA, MARVEL Primary Care Unavailable KALKA, ERA Attending Unavailable GANTA, MARVEL Primary Care Unavailable SILVANO VANCE Referring Unavailable CLOTILDE, SAYRA Attending Unavailable DIAZ, JAK Attending Unavailable GANTA, MARVEL Primary Care Unavailable PREBISH, GRACE Attending Unavailable GANTA, MARVEL Primary Care Unavailable HODAKIEVICDORISEN JAMILA Referring Unavailab le DIAZ, JAK Attending Unavailable GANTA, MARVEL Primary Care Unavailable HODAKIEVIC, ESTELLE JAMILA Attending Unavailab le GANTA, MARVEL Primary Care Unavailable DIAZ, JAK Attending Unavailable DIAZ, JAK Referring Unavailable GANTA, MARVEL Primary Care Unavailable GANTA, MARVEL Primary Care Unavailable GIULIANA ERNST Attending Unavailable GANTA, MARVEL Primary Care Unavailable CLOTILDE, SAYRA Referring Unavailable GANTA, MARVEL Primary Care Unavailable DIAZ, JAK Attending Unavailable PREBISH, GRACE Referring Unavailable GANTA, MARVEL Primary Care Unavailable SELF Referring Unavailable PREBISH, GRACE Attending Unavailable GANTA, MARVEL Primary Care Unavailable DIAZ, JAK Attending Unavailable GANTA, MARVEL Primary Care Unavailable PREBISH, GRACE Attending Unavailable DIAZ, JAK Referring Unavailable GANTA, MARVEL Primary Care Unavailable PREBISH, GRACE Attending Unavailable GANTA, MARVEL Primary Care Unavailable DIAZ, JAK Attending Unavailable GANTA, MARVEL Primary Care Unavailable KALKA, ERA STANISLAV Referring Unavailable RAVI ALLEN Attending Unavailable Allergies Allergy Classification Reported Allergen(s) Allergy Type Date of Onset Reaction(s) Facility Sulfonamides (antibiotic) (3 sources) Sulfonamides (Antibiotic) Drug Allergy 6 [facility] (20 sources) Sulfonamides (Antibiotic); Translations: [SULFA (SULFONAMIDE ANTIBIOTICS)] Drug Intolerance 6 [facility] Medications Current Medications Medication Drug Class(es) Dates Sig (Normalized) Sig (Original) carbidopa 25 mg / levodopa 100 mg oral tablet (20 sources) Aromatic Amino Acid Decarboxylation Inhibitor, Aromatic Amino Acid Start: 10-25-2023 End: 05-04-2024 carbidopa-levodopa (SINEMET 25-100) 25-100 mg per tablet Indications: Parkinson's disease, unspecified whether dyskinesia present, unspecified whether manifestations fluctuate (HCC) TAKE 1 TAB AT 7AM, 1.5 TO 2 TABS AT 11AM, 1.5 TABS AT 3PM AND 1 TAB AT 7PM. 495 tablet 1 05/04/2024 Active Start: 03-25-2023 End: 07-08-2023 carbidopa-levodopa (SINEMET) 25-100 mg per tablet Indications: Parkinson disease (HCC) Take 1.5 tabs QID as instructed. 540 tablet 3 03/25/2023 07/08/2023 Discontinued (Course of therapy completed) Start: 10-27-2021 End: 11-23-2023 take 1 tablet by mouth five times daily carbidopa-levodopa (SINEMET) 25-100 mg per tablet Indications: Parkinson disease (HCC) Take 1 tablet by mouth five times daily. . 450 tablet 3 11/23/2022 03/25/2023 Discontinued Start: 06-30-2021 End: 10-25-2023 take 1 tablet by mouth once at bedtime carbidopa-levodopa CR (SINEMET CR) 50-200 mg per tablet Indications: Parkinson disease (HCC) TAKE 1 TABLET BY MOUTH in Morning and before bedtime as instructed. 180 tablet 3 10/25/2023 Active Comment on above: Take 1 tablet by mary th five times daily. . TAKE 1 TABLET BY MARY TH AT 11PM AND 1 TABLET IN THE AM. TAKE 1 TABLET BY MARY TH AT BEDTIME (1130PM) Take 1.5 tabs QID as instructed. TAKE 1 TABLET BY MARY TH in Morning and before bedtime as instructed. Take 1 tab at 7AM, 1 .5 to 2 tabs at 11AM, 1.5 tabs at 3PM and 1 tab at 7PM. cholecalciferol 0.05 mg oral capsule (20 sources) Vitamin D take 1 capsule by mouth once daily Cholecalciferol, Vitamin D3, 50 mcg (2,000 unit) cap Take 2,000 Units by mouth once daily. Active Comment on above: Take 2,000 Units by mouth once daily. docusate sodium 100 mg oral capsule (20 sources) Start: End: take 1 capsule by mouth twice daily docusate sodium (COLACE) 100 mg capsule Indications: Other constipation Take 1 capsule by mouth two times a day. 180 capsule 2 03/23/2024 12/18/2024 Active End: 03-23-2024 docusate sodium (COLACE ORAL ) Take by mouth as needed. 03/23/2024 Discontinued (Changing Therapy/Dosage Form) End: 03-23-2024 docusate sodium (COLACE ORAL ) Take by mouth as needed. 0 03/23/2024 Discontinued (Changing Therapy/Dosage Form) docusate sodium (COLACE ORAL) Take by mouth as needed. 0 Active Comment on above: Take by mouth as nee ded. fludrocortisone acetate 0.1 mg oral tablet (20 sources) Start: 10-15-20 End: 05-15-20 take 1 tablet by mouth once daily fludrocortisone (FLORINEF) 0.1 mg tablet Indications: Hypotension, unspecified hypotension type Take 1 tablet by mouth once daily. 90 tablet 3 05/15/2024 Active Start: 06-05-2023 End: 07-08-2023 take 1 tablet by mouth once daily fludrocortisone (FLORINEF) 0.1 mg tablet Indications: Hypotension, unspecified hypotension type Take 1 tablet by mouth once daily. 30 tablet 2 07/08/2023 Active Comment on above: Take 1 tablet by mary th once daily. take 1 tablet by mary th every day gabapentin 100 mg oral capsule (20 sources) Anti-epileptic Agent Start: 10-25-2023 End: 04-22-2024 take 1 capsule by mouth twice daily gabapentin (NEURONTIN) 100 mg capsule Take 1 capsule by mouth two times a day for 180 days. 180 capsule 1 10/25/2023 Active Start: 05-21-2022 End: 10-25-2023 take 1 capsule by mouth three times daily gabapentin (NEURONTIN) 100 mg capsule Take 1 capsule by mouth three times daily for 180 days. 270 capsule 1 03/25/2023 10/25/2023 Discontinued Comment on above: Take 1 capsule by mo ut three times daily for 90 days. Take 1 capsule by mo uth three times daily for 180 days. Take 1 capsule by mo uth two times a day for 180 days. iv contrast (will be provided with radiology test) (1 source) Start: 2022 End: 2022 inject 1 dose intravenously once iv contrast (will be provided with radiology test) MRI Brain Inject, intravenously, once for 1 dose.No IV access, insert saline lock prior to beginning of sedation, infusion, injection of imaging exam.Discontinue saline lock post exam. If Pt. has a central line or IVAD, may access for administration according to line specific nursing protocol.Once exam is complete flush line and de-access according to line specific nursing protocol in the MR contrast administration guidelines link 1 Each 0 05/06/2023 05/07/2023 Active Comment on above: MRI Brain Inject, in travenously, once for 1 dose.No IV access, insert saline lock prior to beginning of sedation, infusion, injection of imaging exam.Discontinue saline lock post exam. If Pt. has a central line or IVAD, may access for administration according to line specific nursing protocol.Once exam is complete flush line and de-access according to line specific nursing protocol in the MR contrast administration guidelines link levothyroxine sodium 0.075 mg oral tablet (20 sources) l-Thyroxine Start: 2020 End: 2023 take 1 tablet by mouth once daily for thyroid dysfunction levothyroxine (SYNTHROID) 75 mcg tablet Indications: Hypothyroidism, unspecified type Take 1 tablet by mouth once daily. Take on empty stomach. For Thyroid 90 tablet 3 05/15/2024 Active Comment on above: Take 1 tablet by mary th once daily. Take on empty stomach. For Thyroid lidocaine 0.05 mg/mg medicated patch (20 sources) Antiarrhythmic, Amide Local Anesthetic Start: 2023 End: 2023 lidocaine (LIDODERM) 5 % Apply 2 Patches as directed once daily. Remove patch after 12 hours. 60 Patch 5 11/28/2023 05/26/2024 Active Start: 10-02-2023 End: 10-02-2023 lidocaine (PF) 20 mg/mL (2 % ) 200 mg injection (XYLOCAINE) Start: 08-26-2023 End: 08-26-2023 lidocaine (PF) 10 mg/mL (1 % ) 100 mg injection (XYLOCAINE) Start: 08-07-2023 End: 08-07-2023 lidocaine (PF) 10 mg/mL (1 % ) 100 mg injection (XYLOCAINE) Comment on above: Apply 2 Patches as d irected once daily. Remove patch after 12 hours. LORazepam 0.5 mg oral tablet (20 sources) Benzodiazepine Start: 2022 End: 2022 LORazepam (ATIVAN) 0.5 mg Take 0.5 mg by mouth as needed. 05/31/2023 Active Comment on above: Take 1 tablet by mary once daily as needed (anxiety, panic) for up to 30 days. Take by mouth. methylPREDNISolone (3 sources) Corticosteroid Start: 2023 End: 2023 methylPREDNISolone (MEDROL, KATHARINA,) 4 mg Dose-Pack Indications: Rash Follow dosing instructions, take with food. 21 tablet 0 03/22/2024 03/28/2024 Active midodrine hydrochloride 5 mg oral tablet (7 sources) alpha-Adrenergic Agonist Start: 2023 take 1 tablet by mouth every eight hours midodrine (PROAMITINE) 5 mg tablet Take 1 tablet by mouth every 8 hours. 90 tablet 07/15/2024 Active nitrofurantoin, macrocrystals 25 mg / nitrofurantoin, monohydrate 75 mg oral capsule (1 source) Nitrofuran Antibacterial Start: 2023 End: 2023 take 1 capsule by mouth twice daily nitrofurantoin monohydrate and macrocrystal (MACROBID) 100 mg capsule Take 1 capsule by mouth two times a day for 5 days. 10 capsule 0 03/13/2024 03/18/2024 Active olopatadine 2 mg/ml ophthalmic solution (18 sources) Histamine-1 Receptor Inhibitor Start: 2023 take 1 drop(s) into the eye(s) once daily Olopatadine (PATADAY ONCE DAILY RELIEF) 0.2 % drop Use 1 Drop in both eyes once daily. 5 mL 05/04/2024 Active ondansetron 4 mg disintegrating oral tablet (20 sources) Serotonin-3 Receptor Antagonist Start: 2023 take 1 tablet by mouth every eight hours as needed for nausea ondansetron orally disintegrating (ZOFRAN ODT) 4 mg disintegrating tablet Indications: Gastroesophageal reflux disease with esophagitis without hemorrhage Take 1 tablet by mouth every 8 hours as needed for nausea/vomiting. 30 tablet 2 03/23/2024 Active Start: 08-12-2023 End: 03-23-2024 take 1 tablet by mouth every six hours as needed ondansetron orally disintegrating (ZOFRAN ODT) 4 mg disintegrating tablet Take 1 tablet by mouth every 6 hours as needed for nausea/vomiting. 15 tablet 1 08/12/2023 03/23/2024 Discontinued Comment on above: Take 1 tablet by mary th every 6 hours as needed for nausea/vomiting. pantoprazole 40 mg delayed release oral tablet (20 sources) Proton Pump Inhibitor Start: End: take 1 tablet by mouth once daily pantoprazole DR (PROTONIX) 40 mg tablet Take 1 tablet by mouth once daily. On empty stomach at least 30 minutes before eating. 90 tablet 3 06/25/2024 Active Comment on above: Take 1 tablet by mary th once daily. On empty stomach at least 30 minutes before eating. pravastatin sodium 20 mg oral tablet (20 sources) HMG-CoA Reductase Inhibitor Start: take 1 tablet by mouth once daily at bedtime pravastatin (PRAVACHOL) 20 mg tablet Indications: Mixed hyperlipidemia Take 1 tablet by mouth daily at bedtime. 90 tablet 3 12/02/2023 Active Start: 07-16-2022 End: 2023 take 1 tablet by mouth once daily at bedtime pravastatin (PRAVACHOL) 20 mg tablet Indications: Mixed hyperlipidemia Take 1 tablet by mouth daily at bedtime. 90 tablet 3 07/16/2022 2023 Discontinued Start: 05-05-2020 take 1 tablet by mary th once daily at bedtime pravastatin (PRAVACHOL) 20 mg tablet Indications: Mixed hyperlipidemia Take 1 tablet by mouth daily at bedtime. 90 tablet 3 05/05/2020 Active Comment on above: Take 1 tablet by mary th daily at bedtime. TAKE 1 TABLET BY MARY TH EVERYDAY AT BEDTIME predniSONE 10 mg oral tablet (1 source) Start: 04-10-2022 End: 04-19-2022 predniSONE (DELTASONE) 10 mg tablet Take 4 tabs daily for 3 days, then 2 tabs daily for 3 days, then 1 tab daily for 3 days with food. 21 tablet 0 04/10/2022 04/19/2022 Active Comment on above: Take 4 tabs daily fo r 3 days, then 2 tabs daily for 3 days, then 1 tab daily for 3 days with food. sertraline 50 mg oral tablet (20 sources) Serotonin Reuptake Inhibitor Start: 06-05-2024 End: 12-02-2024 take 1 tablet by mouth once daily sertraline (ZOLOFT) 50 mg tablet Indications: Anxiety Take 1 tablet by mouth once daily. Take a total of 150 mgs daily. 30 tablet 5 06/05/2024 12/02/2024 Active Start: 05-15-2023 End: 05-15-2024 take 1 tablet by mouth once daily sertraline (ZOLOFT) 100 mg tablet Indications: Adjustment disorder with anxiety Take 1 tablet by mouth once daily. 90 tablet 3 05/15/2024 Active Start: 07-16-2022 End: 05-15-2023 take 1 tablet by mouth once daily sertraline (ZOLOFT) 50 mg tablet Indications: Severe depression (HCC) , Moderate anxiety Take 1 tablet by mouth once daily. 90 tablet 3 07/16/2022 05/15/2023 Discontinued Start: 12-28-2021 End: 06-26-2022 take 1 tablet by mouth once daily sertraline (ZOLOFT) 50 mg tablet Indications: Severe depression (HCC) , Moderate anxiety Take 1 tablet by mouth once daily. 90 tablet 1 12/28/2021 06/26/2022 Active Comment on above: Take 1 tablet by [facility] once daily. Completed/Discontinued Medications Medication Drug Class(es) Dates Sig (Normalized) Sig (Original) 0.9% NaCl 10 mL flush (1 source) Start: 10-02-2023 End: 10-02-2023 0.9% NaCl 10 mL flush Bupivacaine (6 sources) Amide Local Anesthetic Start: 07-02-2024 End: 07-02-2024 BUPivacaine HCl 2.5 mg injection (SENSORCAINE) Start: 07-02-2024 End: 07-02-2024 2.5 mg, OTHER, ONCE, 1 dose, On Alice 07/02/24 at 1430 Start: 03-19-2024 End: 03-20-2024 BUPivacaine HCl 7.5 mg injec tion (SENSORCAINE) Start: 10-02-2023 End: 10-02-2023 bupivacaine(PF) 0.75 % (7.5 mg/mL) 7.5 mg injection (MARCAINE PF) Start: 08-26-2023 End: 08-26-2023 BUPivacaine (PF) 0.5 % (5 mg /mL) 5 mg injection Start: 08-07-2023 End: 08-07-2023 BUPivacaine (PF) 0.5 % (5 mg /mL) 5 mg injection cephalexin 500 mg oral capsule (1 source) Cephalosporin Antibacterial Start: 03-11-2024 End: 03-13-2024 take 1 capsule by mouth twice daily cephALEXin (KEFLEX) 500 mg capsule Take 1 capsule by mouth two times a day for 7 days. 14 capsule 0 03/11/2024 03/13/2024 Discontinued dexamethasone phosphate 10 mg/ml injectable solution (1 source) Corticosteroid Start: 10-02-2023 End: 10-02-2023 dexAMETHasone sodium phosphate 10 mg injection (DECADRON) diclofenac sodium 0.01 mg/mg topical gel (20 sources) Nonsteroidal Anti-inflammatory Drug Start: 08-11-2020 apply 2 g topically four times daily diclofenac sodium (VOLTAREN) 1 % topical gel APPLY 2 GRAMS TO AFFECTED AREA 4 TIMES A DAY 200 g 2 08/11/2020 Suspended Comment on above: APPLY 2 GRAMS TO AFF ECTED AREA 4 TIMES A DAY iohexol 300 mg IV injection (OMNIPAQUE 300) (2 sources) Start: 08-26-2023 End: 08-26-2023 iohexol 300 mg IV injection (OMNIPAQUE 300) Start: 08-07-2023 End: 08-07-2023 iohexol 300 mg IV injection (OMNIPAQUE 300) THERAPEUTIC MULTIVITAMIN TAB (20 sources) Start: 10-26-2005 End: 11-19-2023 THERAPEUTIC MULTIVITAMIN TAB Take by mouth. 0 10/26/2005 11/19/2023 Discontinued (Discontinued by Patient) Start: 10-26-2005 THERAPEUTIC MU LTIVITAMIN TAB Take by mouth. 0 10/26/2005 Active Comment on above: Take by mouth. triamcinolone acetonide 1 mg/ml topical cream (11 sources) Corticosteroid Start: 05-04-2024 triamcinolone acetonide (KENALOG) 0.1 % cream Apply 1 application to affected area three times a day. Apply sparingly to area for rash/itching. 30 g 05/04/2024 Suspended Problems Active Problems Problem Classification Problem Date Documented Da te Episodic/Chronic Adjustment disorders (2 sources) Adjustment disorder with anxious mood; Translations: [Adjustment disorder with anxiety] 06-05-2023 Chronic Administrative/social admission (3 sources) Other reduced mobility; Translations: [Other specified conditions influencing health status] Onset: 4 08-10-2024 Episodic Allergic reactions (1 source) Allergic contact dermatitis caused by plant material; Translations: [Allergic contact dermatitis due to plants, except food] Episodic Anxiety disorders (20 sources) Anxiety state; Translations: [Generalized anxiety disorder] Onset: 7 05-16-2019 Chronic Disorders of lipid metabolism (20 sources) Mixed hyperlipidemia; Translations: [Mixed hyperlipidemia] Onset: 0 07-26-2017 Chronic Esophageal disorders (6 sources) Gastroesophageal reflux disease; Translations: [Gastro-esophageal reflux disease without esophagitis] Onset: 3 08-14-2023 Chronic Esophageal disorders (1 source) Esophageal disorders; Translations: [Gastroesophageal reflux disease with esophagitis without hemorrhage] Onset: 4 Essential hypertension (20 sources) Benign essential hypertension; Translations: [Essential (primary) hypertension] Onset: 7 06-30-2021 Chronic Fluid and electrolyte disorders (2 sources) Hyponatremia; Translations: [Hypo-osmolality and hyponatremia] Onset: 4 07-21-2024 Episodic Headache; including migraine (20 sources) Migraine without aura; Translations: [Migraine without aura] Onset: 7 04-04-2007 Chronic Immunizations and screening for infectious disease (1 source) Needs influenza immunization; Translations: [Encounter for immunization] 07-19-2023 Episodic Malaise and fatigue (2 sources) Fatigue; Translations: [Other fatigue] Onset: 4 06-05-2024 Episodic Mood disorders (20 sources) Recurrent major depression; Translations: [Major depressive disorder, recurrent, unspecified] Onset: 4 Chronic Mood disorders (1 source) Mood disorders; Translations: [Depression, unspecified depression type] Onset: 4 Nutritional deficiencies (4 sources) Vitamin D deficiency; Translations: [Vitamin D deficiency, unspecified] Onset: 4 Chronic Nutritional deficiencies (3 sources) Cobalamin deficiency; Translations: [Deficiency of other specified B group vitamins] Onset: 4 Episodic Other acquired deformities (3 sources) Kyphosis of thoracic spine; Translations: [Unspecified kyphosis, thoracic region] Chronic Other acquired deformities (1 source) Acquired deformity of neck; Translations: [Acquired deformity of neck] Episodic Other and unspecified benign neoplasm (20 sources) Intracranial meningioma; Translations: [Benign neoplasm of cerebral meninges] Onset: 0 07-18-2020 Chronic Other and unspecified benign neoplasm (1 source) Benign neoplasm of brain; Translations: [Benign neoplasm of brain, unspecified] Chronic Other and unspecified benign neoplasm (7 sources) Neoplasm of meninges; 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, unspecified] Chronic Other and unspecified benign neoplasm (1 source) Benign neoplasm of meninges, unspecified; Translations: [Meningioma (HCC)] Onset: 4 Chronic Other and unspecified benign neoplasm (1 source) Benign neoplasm of cerebral meninges; Translations: [Intracranial meningioma (HCC)] Onset: 0 Chronic Other circulatory disease (6 sources) Low blood pressure; Translations: [Hypotension, unspecified] 06-05-2023 Episodic Other circulatory disease (11 sources) Orthostatic hypotension; Translations: [Orthostatic hypotension] Onset: 4 06-18-2023 Episodic Other circulatory disease (2 sources) Orthostatic hypotension; Translations: [Orthostatic hypotension] Onset: 4 07-25-2023 Episodic Other connective tissue disease (8 sources) Myofascial pain; Translations: [Myalgia, other site] 07-04-2023 Episodic Other gastrointestinal disorders (7 sources) Dysphagia; Translations: [Dysphagia, unspecified] 06-18-2023 Episodic Other gastrointestinal disorders (1 source) Abdominal bloating; Translations: [Abdominal distension (gaseous)] 07-19-2023 Episodic Other gastrointestinal disorders (2 sources) Constipation; Translations: [Other constipation] 03-23-2024 Episodic Other gastrointestinal disorders (1 source) Other constipation; Translations: [Other constipation] Onset: 4 Episodic Other nervous system disorders (4 sources) Small fiber neuropathy; Translations: [Polyneuropathy, unspecified] Chronic Other nervous system disorders (1 source) Disorder of autonomic nervous system; Translations: [Disorder of the autonomic nervous system, unspecified] 06-05-2024 Chronic Other nervous system disorders (1 source) Disorder of the autonomic nervous system, unspecified; Translations: [Autonomic dysfunction] Onset: 4 Chronic Other nervous system disorders (2 sources) Impairment of balance; Translations: [Other abnormalities of gait and mobility] Episodic Other nervous system disorders (1 source) Numbness and tingling sensation of skin; Translations: [Anesthesia of skin] Episodic Other nutritional; endocrine; and metabolic disorders (1 source) Weight gain; Translations: [Abnormal weight gain] 06-05-2024 Episodic Other nutritional; endocrine; and metabolic disorders (1 source) Weight loss; Translations: [Abnormal weight loss] 07-21-2024 Episodic Other nutritional; endocrine; and metabolic disorders (1 source) Abnormal weight loss; Translations: [Weight loss] Onset: 4 Episodic Other nutritional; endocrine; and metabolic disorders (1 source) Abnormal weight gain; Translations: [Weight gain] Onset: 4 Episodic Other skin disorders (2 sources) Eruption; Translations: [Rash and other nonspecific skin eruption] 03-22-2024 Episodic Other upper respiratory infections (1 source) Sore throat symptom; Translations: [Acute pharyngitis, unspecified] 03-22-2024 Episodic Parkinson`s disease (20 sources) Parkinson's disease; Translations: [Parkinson's disease] Onset: 0 07-18-2020 Chronic Parkinson`s disease (6 sources) Parkinson`s disease; Translations: [Parkinson's disease with dyskinesia, unspecified whether manifestations fluctuate (HCC)] Onset: 0 Residual codes; unclassified (2 sources) REM sleep behavior disorder; Translations: [REM sleep behavior disorder] Chronic Spondylosis; intervertebral disc disorders; other back problems (20 sources) Cervical spondylosis without myelopathy; Translations: [Spondylosis without myelopathy or radiculopathy, cervical region] Onset: 0 05-18-2020 Chronic Superficial injury; contusion (10 sources) Hematoma of scalp; Translations: [Contusion of scalp, initial encounter] Onset: 4 07-14-2024 Episodic Thyroid disorders (20 sources) Hypothyroidism; Translations: [Hypothyroidism, unspecified] Onset: 7 10-04-2015 Chronic Past or Other Problems Problem Classification Problem Date Documented Da te Episodic/Chronic Cardiac dysrhythmias (20 sources) Palpitations; Translations: [Palpitations] Onset: 0 10-03-2020 Episodic Other circulatory disease (1 source) Hypotension, unspecified; Translations: [Hypotension, unspecified hypotension type] Onset: 4 Episodic Other connective tissue disease (20 sources) Pes anserinus bursitis of left knee; Translations: [Other bursitis of knee, left knee] Onset: 4 10-29-2013 Episodic Other connective tissue disease (1 source) Myalgia, other site; Translations: [Myofascial pain] Onset: 4 Episodic Other gastrointestinal disorders (2 sources) Dysphagia, unspecified; Translations: [Dysphagia, unspecified type] Onset: 3 Episodic Other lower respiratory disease (20 sources) Dyspnea; Translations: [Shortness of breath] Onset: 0 10-03-2020 Episodic Other non-traumatic joint disorders (20 sources) Pain in left knee; Translations: [Pain in joint, lower leg] Onset: 4 10-29-2013 Episodic Other screening for suspected conditions (not mental disorders or infectious disease) (2 sources) Gastrointestinal tract finding; Translations: [Abnormal findings on diagnostic imaging of other parts of digestive tract] Onset: 4 11-29-2023 Episodic Spondylosis; intervertebral disc disorders; other back problems (20 sources) Spinal stenosis in cervical region; Translations: [Spinal stenosis, cervical region] Onset: 0 07-18-2020 Episodic Syncope (15 sources) Syncope; Translations: [Syncope and collapse] Onset: 4 Resolved: 4 05-08-2023 Episodic Results Test Name Value Interpretation Reference Range Facility [id number] 08-10-2024 [id number] HNO ID: [id number] Author: SHARA TAPIA PT Service: ? Author Type: Physical Therapist Type: [id number] Filed: 08/10/2024 13:10 Note Text: [facility] Physical Therapy Plan of Care Certification Patient Name: Lou Oliver : 1945 [facility] #: [id number] Date: 08/10/2024 To: Sayra Mabry MD From Therapist: Shara Tapia, HANS RE: Patient Certification/ Recertification Your review, approval and electronic signature are required in order to comply with Payor: MEDICARE / Plan: MEDICARE A AND B / Product Type: Medicare / regulations. The identified Physical Therapy PLAN OF CARE for the patient is as follows: Z74.09 Impaired functional mobility, balance, gait, and endurance (primary encounter diagnosis) G20.B1 Parkinson's disease with dyskinesia, unspecified whether manifestations fluctuate (HCC) PLAN OF CARE: Assessment: Lou Oliver presents with diagnosis of PD that interferes with standing, walking, stair negotiation, physical activities, recreational activities, sleeping, driving, carrying . The patient presents with impairments in ADL's, balance, gait, independence in exercise, overall function, posture, and symptom management. PROMIS? (Patient-Reported Outcomes Measurement Information System) scores were reviewed and identified as a rehabilitation concern. Prognosis for therapy is Fair due to: clinical presentation, chronic nature of impairments .The patient will benefit from skilled therapy services to meet the goals established for this plan of care as noted below. Classification Diagnosis Grouping: Parkinson?s Disease Goals for Episode of Care: established 08/10/24 [place] in PD specific home exercise program. Improve 5x sit to stand test to 14 sec to improve endurance and functional mobility Improve score on Timed Up and Go to <10 seconds to decrease risk of falls Pt will improve 10 meter walk test to 6 seconds to decrease fall risk Patient will report no falls or verbalize understanding of recommendations to reduce fall risk. Improve postural awareness. Hierarchy Goals: Decrease difficulty with 1)car transfers 2)handwriting 3)turning when walking 4)standing 5) sit to stand Patient Goals: decrease falls and learn PD specific ex. Time Frame for Goals and Treatment : 10/09/24 Planned Interventions, Frequency, and Duration: Current Frequency: 2x/week Duration: 5 weeks Total Number of Visits Planned: 10 Planned Treatment Interventions: Therapeutic exercise (64354), Neuromuscular re-education (12120), Therapeutic activities (34044), Self-group home management (88891), Gait Training (60452), Patient/Family/Caregiv er Education, Body Mechanics Training, Functional training, General Conditioning PLAN FOR NEXT VISIT: Check 4 stage balance. Patient demonstrates good understanding of plan of care and treatment. The above goals and plan of care were discussed and agreed upon by patient/family. For further details regarding this patient refer to the Physical Therapy electronically documented visit dated 08/10/2024. Provider Attestation I have reviewed the treatment plan for Lou Olivier Oliver, [facility]# [id number] for the period of 08/10/24 -- 11/08/24, established on 08/10/2024. Signature certifies the need for therapy services. Normal [facility] CNTHERAPYon 08-10-2024 CNTHERAPY OT/PT/Speech Visit (AKPTLK) LOU OLIVER ([id number]) 1945 F Date Time Provider Department 08/10/24 11:45 AM SHARA TAPIA Date Time Provider Department Center 08/10/2024 11:45 AM [id number] TAPIA [facility] Reason for Visit: PT Eval [747] Primary Visit Diagnosis:Impaired functional mobility, balance, gait, and endurance [Z74.09] Other Visit Diagnosis:Parkinson's disease with dyskinesia, unspecified whether manifestations fluctuate ([facility]) [G20.B1] Allergies As of Date: 08/10/2024 Noted Allergy Reaction SULFA (SULFONAMIDE ANTIBIOTICS) 10/26/2005 4 - Hives Date Reviewed: 07/31/2024 Reviewed by: Sayra Mabry MD - Fully Assessed Prescriptions as of 08/10/2024 - midodrine (PROAMITINE) 5 mg tablet Take 1 tablet by mouth every 8 hours. - pantoprazole DR (PROTONIX) 40 mg tablet Take 1 tablet by mouth once daily. On empty stomach at least 30 minutes before eating. - sertraline (ZOLOFT) 50 mg tablet Take 1 tablet by mouth once daily. Take a total of 150 mgs daily. - sertraline (ZOLOFT) 100 mg tablet Take 1 tablet by mouth once daily. - fludrocortisone (FLORINEF) 0.1 mg tablet Take 1 tablet by mouth once daily. - levothyroxine (SYNTHROID) 75 mcg tablet Take 1 tablet by mouth once daily. Take on empty stomach. For Thyroid - carbidopa-levodopa (SINEMET 25-100) 25-100 mg per tablet TAKE 1 TAB AT 7AM, 1.5 TO 2 TABS AT 11AM, 1.5 TABS AT 3PM AND 1 TAB AT 7PM. - Olopatadine (PATADAY ONCE DAILY RELIEF) 0.2 % drop Use 1 Drop in both eyes once daily. - ondansetron orally disintegrating (ZOFRAN ODT) 4 mg disintegrating tablet Take 1 tablet by mouth every 8 hours as needed for nausea/vomiting. - docusate sodium (COLACE) 100 mg capsule Take 1 capsule by mouth two times a day. - pravastatin (PRAVACHOL) 20 mg tablet Take 1 tablet by mouth daily at bedtime. - carbidopa-levodopa CR (SINEMET CR) 50-200 mg per tablet TAKE 1 TABLET BY MOUTH in Morning and before bedtime as instructed. - gabapentin (NEURONTIN) 100 mg capsule Take 1 capsule by mouth two times a day for 180 days. - LORazepam (ATIVAN) 0.5 mg Take 0.5 mg by mouth as needed. - Cholecalciferol, Vitamin D3, 50 mcg (2,000 unit) cap Take 2,000 Units by mouth once daily. Normal [facility] CNOVon 07-31-2024 [facility] Office Visit (NRMDN) LOU OLIVER ([id number]) 1945 F Date Time Provider Department 07/31/24 9:30 AM SAYRA MABRY During your visit today, we recorded the following information about you: Weight 56.7 kg Sayra Mabry MD 07/31/2024 10:14 AM Addendum Guidelines for the Treatment of orthostatic hypotension (low blood pressure upon standing) 1. Make all postural changes from lying to sitting or sitting to standing, slowly. 2. Drink to 2.0 -2.5 L of fluids per day. 3. Increase sodium in the diet to 3 - 5 g per day. IF THIS IS OK with your medical doctor. 4. Avoid large meals which can cause low blood pressure during digestion. It is better to eat smaller meals more often than three large meals. 5. Avoid alcohol. Alcohol can cause blood to pool in the legs which may worsen low blood pressure reactions when standing. 6. Perform lower extremity exercises to improve strength of the leg muscles. This will help prevent blood from a pooling in the legs when standing and walking. 7. Raise the head of the bed by 6 to 10 inches. The entire bed must be at an angle. Raising only the head portion of the bed at waist level or using pillows will not be effective. Raising the head of the bed will reduce urine formation overnight and there will be more volume in the circulation in the morning. 8. Drink 500 cc of water quickly as soon as you wake up in the morning BEFORE you even get out of bed. This will result in an increased blood pressure within 5 minutes of drinking the water. The effect will last up to one hour and may improve orthostatic intolerance. 9. Use custom fitted elastic support stockings. These will reduce a tendency for blood to pool in the legs when standing and may improve orthostatic intolerance. These have to be Thigh-high. Compression stockings that only reach the knees are not as helpful. 10. Use physical counter maneuvers such as leg crossing, squatting, or raising and resting the leg on a chair. These maneuvers increase blood pressure. Constipation and Other Gastrointestinal Problems in Parkinson's Disease As you know, Parkinson?s disease (PD) affects many body systems, not just movement. This includes the autonomic nervous system -- that is, the part of the nervous system that controls ?automatic? bodily functions such as heart rate, blood pressure, sweating, sexual function and both gastrointestinal and urinary function. These can be among the most serious and complex issues faced by people with PD. Constipation, cramping and bloating are all common among people with Parkinson?s. These issues can be caused both by the disease itself and by the medications used to treat it. The good news is that there are steps that you can take to lessen its impact on your life. Stomach Problems Impaired ability to empty the contents of the stomach, called gastroparesis, is a potential complication of PD. This may produce a bloated sensation and cause you to feel full even if you have eaten very little. Sometimes nausea may develop. Failure of the stomach to empty in a timely fashion may also impair or delay the effectiveness of PD medications, especially levodopa. Levodopa is absorbed from the small intestine and cannot get to its destination if it is trapped in the stomach. Unfortunately, treatment of gastroparesis in PD has not been extensively studied, and there are not many treatment options. Domperidone is an effective medication, but it is not available in the [place]. FDA approved Duopa?, a form of levodopa designed to be delivered directly into the small intestine, may be helpful for some people experiencing gastroparesis. New levodopa delivery methods that bypass the stomach might help in the future, such as a skin patch, supplemental treatment with DBS, sublingual, or subcutaneous agonists. Constipation Constipation means difficulty passing stools (bowel movement, feces), a decrease in the number of stools, or both. It is often accompanied by one or more of the following symptoms: No stool (bowel movement) for days Distention (bloating) of abdomen, cramping, a feeling of pressure in the lower abdomen Straining to eliminate Incomplete evacuation of stool Hard, pellet stools Constipation can be acute (sudden onset of short duration) or chronic (persisting for several weeks or longer). In PD, constipation is likely to be chronic. When constipation is severe, the stool stays in the colon and ?backs up?, causing a condition called impaction. Most healthcare providers describe constipation as having less than three bowel movements a week and recommend treatment after three days without a bowel movement, but everyone is slightly different. The frequency of bowel movements depends on what you have been eating and drinking, and the unique functioning of your own (more content not included)... Normal [facility] CNOVon 07-21-2024 CNOV Office Visit (INTMWS ) LOU OLIVER ([id number]) 1945 F Date Time Provider Department 07/21/24 4:00 PM MARVEL RIZZO During your visit today, we recorded the following information about you: Pulse Respiration Blood pressure Weight 60/minute 16/minute 92/60 55.8 kg Marvel Rizzo MD 07/21/2024 5:15 PM Signed Patient presents with: Hospital Follow Up Lou Oliver is a 79 year old female who presents here today for Above Complaints.. Health Maintenance Depression Screening BP Controlled (<130/80) DTaP,Tdap,Td Vaccine(1 - Tdap) RSV Vaccine(1 - 1-dose 60+ series) Shingrix Vaccine(2 of 3) Covid-19 Vaccine( season) Advance Directive Discussion HPI Lou is a very pleasant 79-year-old woman with a past medical history of migraine without aura, Parkinson's disease, intracranial meningioma, essential hypertension, mixed hyperlipidemia, palpitations, hypothyroidism, anxiety state. Lou is here for hospital follow-up. She sustained a fall while getting out of the car while going to her neurology appointment she states that she may have suffered a syncopal event. She has been having multiple of these events from low blood pressures despite being on fludrocortisone to help with her blood pressure. Despite that her blood pressures sometimes have been as low as 70. She had a CT of the head that was done and showed scalp hematoma but no intracranial bleeding. She was admitted to monitor her blood pressures and was started on midodrine 2.5 mg which did not improve the blood pressure enough so she was placed on midodrine 3 times a day to help her with the blood pressures. She has been keeping a log of her blood pressures after midodrine of 5 mg 3 times a day was started. Notes that the highest blood pressure she gets is 123 and most of them are in the 90s. Prior to that she was getting blood pressures in the 60s and 70s. The 60s and 70s systolic over the. But she was more dizzy. She did note that she is less dizzy but dizziness still remains especially if she gets up quickly. During the hospital stay she was orthostatic and she continues to be orthostatic. Currently she is on salt pill midodrine and fludrocortisone. We discussed the ability to stop or reduce medications of blood pressure goes high. An interesting finding is that she now has much less abdominal pain and less nausea. She is to have nausea and abdominal pain almost every day. Concerned with weight loss. She has been having less appetite because of the nausea and not been eating as much. She will try to eat better and stabilize her weight. Was happy to report that she has a new friend and he takes good care of her. No problem-specific Assessment AND Plan notes found for this encounter. PAST MEDICAL HISTORY Diagnosis Date Diverticulosis of colon (without mention of hemorrhage) Essential hypertension, benign 04/04/2007 Mental disorder Migraine without aura 04/04/2007 Parkinson disease (HCC) Unspecified hypothyroidism 04/04/2007 PAST SURGICAL HISTORY Procedure Laterality Date DELIVERY ONLY , low cervical x2 COLONOSCOPY FLX DX W/COLLJ SPEC WHEN PFRMD 1994 Colonoscopy COLONOSCOPY FLX DX W/COLLJ SPEC WHEN PFRMD 04/07/2012 Colonoscopy COLONOSCOPY FLX DX W/COLLJ SPEC WHEN PFRMD 06/17/2019 Colonoscopy DILATION AND CURETTAGE DXAND/THER NONOBSTETRIC 09/1982 Dilation AND curettage EGD W/O [facility] SPEC VARICIES INJ 11/29/2023 PAST SURGICAL HISTORY OF 02/1996 EMB TONSILLECTOMY AND ADENOIDECTOMY T/A (under age 12 years) FAMILY HISTORY Problem Relation Age of Onset Hypertension Mother Arthritis Mother Heart disease Mother Diabetes Father adult onset Emphysema Father Cancer Father lung Psychiatry Maternal Grandmother Ischemic Heart Disease Maternal Grandfather Diabetes Paternal Grandmother Asthma Daughter Allergic Rhinitis Daughter Colon Cancer No Family History Social History Tobacco Use Smoking status: Never Smokeless tobacco: Never Tobacco comments: Father smoked in childhood home. 2 spouses were smokers. Vaping Use Vaping status: Never Used Substance Use Topics Alcohol use: No Drug use: No Past medical history, appointments, medications, allergies reviewed. Pertinent Lab/Diagnostic Studies are reviewed and discussed today Current Outpatient Medications: midodrine (PROAMITINE) [address] (PROTONIX) 40 mg tablet sertraline (ZOLOFT) 50 mg tablet sertraline (ZOLOFT) 100 mg tablet fludrocortisone (FLORINEF) 0.1 mg tablet levothyroxine (SYNTHROID) 75 mcg tablet carbidopa-levodopa (SINEMET 25-100) 25-100 mg per tablet Olopatadine (PATADAY ONCE DAILY RELIEF) 0.2 % drop ondansetron orally disintegrating (ZOFRAN ODT) 4 mg disintegrating tablet docusate sodium (COLACE) 100 mg capsule pravastatin (PRAVACHOL) 20 m (more content not included)... Normal [facility] Basic metabolic 2000 panelon 07-15-2024 Anion gap [Moles/Vol] 10 mmol/L Normal 8-15 [facility] Comment on above: Order Comment: Speci men Type: BLOOD SPECIMENOrdering Facility: [facility] Address: [address] [place] [address] Performed By: #### 2 4321-2 ####[facility] LABORATORYCLIA [id number] [place] [address] [place] Calcium [Mass/Vol] 9.1 mg/dL Normal 8.5-10.2 [facility] Comment on above: Order Comment: Speci men Type: BLOOD SPECIMENOrdering Facility: [facility] Address: [address] [place] [address] Performed By: #### 2 4321-2 ####ENRIQUEZ LABORATORYCLIA [id number] [place] [address] [place] Chloride [Moles/Vol] 103 mmol/L Normal 98-107 [facility] Comment on above: Order Comment: Speci men Type: BLOOD SPECIMENOrdering Facility: [facility] Address: [address] [place] [address] Performed By: #### 2 4321-2 ####ENRIQUEZ LABORATORYCLIA [id number] [place] [address] [place] CO2 [Moles/Vol] 25 mmol/L Normal 22-30 [facility] Comment on above: Order Comment: Speci men Type: BLOOD SPECIMENOrdering Facility: [facility] Address: [address] [place] [address] Performed By: #### 2 4321-2 ####ENRIQUEZ LABORATORYCLIA [id number] [address] [place] Creatinine [Mass/Vol] 0.88 mg/dL Normal 0.58-0.96 [facility] Comment on above: Order Comment: Musa badillo Type: BLOOD SPECIMENOrdering Facility: [facility] Address: [address] [place] [address] Performed By: #### 2 4321-2 ####ENRIQUEZ LABORATORYCLIA [id number] [address] Creatinine and Glomerular filtration rate.predicted panel (S/P/Bld) 67 mL/min/1.73m??? Normal >=60 [facility] Comment on above: Order Comment: Musa badillo Type: BLOOD SPECIMENOrdering Facility: [facility] Address: [address] [place] [address] Result Comment: Afia mated Glomerular Filtration Rate (eGFR) is calculated using the 2020 CKD-EPI creatinine equation. This equation utilizes serum creatinine, sex, and age as parameters. The creatinine assay has traceable calibration to isotope dilution-mass spectrometry. Refer to KDIGO guidelines for clinical interpretation. In patients with unstable renal function, e.g. those with acute kidney injury, the eGFR may not accurately reflect actual GFR. Performed By: #### 2 4321-2 ####ENRIQUEZ LABORATORYCLIA [id number] [address] Glucose [Mass/Vol] 128 mg/dL High 74-99 [facility] Comment on above: Order Comment: Musa badillo Type: BLOOD SPECIMENOrdering Facility: [facility] Address: [address] [place] [address] Result Comment: The [place] Diabetes Association (ADA) provides guidance for cutoff values for fasting glucose and random glucose. The ADA defines fasting as no caloric intake for at least 8 hours. Fasting plasma glucose results between 100 to 125 mg/dL indicate increased risk for diabetes (prediabetes). Fasting plasma glucose results greater than or equal to 126 mg/dL meet the criteria for diagnosis of diabetes. In the absence of unequivocal hyperglycemia, results should be confirmed by repeat testing. In a patient with classic symptoms of hyperglycemia or hyperglycemic crisis, random plasma glucose results greater than or equal to 200 mg/dL meet the criteria for diagnosis of diabetes. Reference: Standards of Medical Care in Diabetes 2016, [place] [employer] Association. Diabetes Care. 2016.39(Suppl 1). Performed By: #### 2 4321-2 ####ENRIQUE[facility] LABORATORYCLIA [id number] [address] Potassium [Moles/Vol] 4.1 mmol/L Normal 3.7-5.1 [facility] Comment on above: Order Comment: Musa badillo Type: BLOOD SPECIMENOrdering Facility: [facility] Address: [address] [place] [address] Performed By: #### 2 4321-2 ####ENRIQUEZ LABORATORYCLIA [id number] [address] Sodium [Moles/Vol] 138 mmol/L Normal 136-144 [facility] Comment on above: Order Comment: Musa badillo Type: BLOOD SPECIMENOrdering Facility: [facility] Address: [address] [place] [address] Performed By: #### 2 4321-2 ####ENRIQUEZ LABORATORYCLIA [id number] [address] STATES [facility] Urea nitrogen [Mass/Vol] 21 mg/dL Normal 7-21 [facility] Comment on above: Order Comment: Musa badillo Type: BLOOD SPECIMENOrdering Facility: [facility] Address: [address] [place] [address] Performed By: #### 2 4321-2 ####ENRIQUEZ LABORATORYCLIA [id number] [place] [id number] [facility] CASE MANAGEMon 07-15-2024 CASE MANAGEM HNO ID: [id number] Author: MADONNA CARROLL RN Service: ? Author Type: Registered Nurse Type: Care Mgt Progress Note Filed: 07/15/2024 16:40 Note Text: CARE MANAGEMENT DISCHARGE NOTE SERVICE DATE: July 15, 2024 SERVICE TIME: 4:38 PM Admission Date: 07/14/2024 LOS: 0 days Discharge Arrangement Discharge Arrangement: Home with Relative Services Arranged D/C Home with Family Provider Name: NA Phone: NA Caregiver Assessment Caregiver is ready, willing and able to meet the patient's needs as recommended by the inter-professional team: No Caregiver needed Transportation Arrangements Transportation Arrangements: Car Date of Trip: 07/15/24 Time of Trip: 1700 Destination: Pts' Home Address Handoff Communication: Handoff to: Primary Care Physician Primary Care Physician Name/Phone: Marvel Rizzo MD Additional Information: NA SIGNATURE: Madonna Carroll RN,BSN, ACM PATIENT NAME: Lou Oliver DATE: July 15, 2024 TIME: 4:38 PM CONTACT #: [phone] [facility] CASE MGT INIT ASSESon 2023 CASE MGT [facility] HNO ID: [id number] Author: MADONNA CARROLL RN Service: ? Author Type: Registered Nurse Type: Care Mgt Initial Assessment Filed: 07/15/2024 10:21 Note Text: CARE MANAGEMENT: ASSESSMENT AND DISCHARGE PLAN SERVICE DATE: July 15, 2024 SERVICE TIME: 10:19 AM PCP: Marvel Rizzo MD Primary Contact: Extended Emergency Contact Information Primary Emergency Contact: Debra Burt [facility] Mobile Relation: Daughter Secondary Emergency Contact: Nia aWrren [facility] Relation: Daughter Admission Status: Observation Insurance Provider: BALDEMAR Discharge Planning requested by: Per Department Practice Potential Transition Plans Home;To Be Determined Advance Directives Current Advance Directive: Health Care Power of State Game Warden;Living Will In Chart: Yes Up To Date and Valid: Yes Current Living Arrangements and Support Lives with: Alone Type of Residence: Private Residence (House) Does the patient have to climb stairs at home?: No Support: Family members How do you manage to accomplish the following: Independent: Ambulation;Bathe/Showe r;Dress;Meals/Meal Prep;Going to the bathroom;Medication Management Dependent: Transportation to appointments/community Current Services/Equipment Current Post-Acute Service(s): DME Current DME Type: Cane, Walker Discharge Planning Patient Goal(s): [place] of Choice Explained: Are you interested in bedside delivery of your medications? No, uses [facility], [place], [place] Discharge Planning Participant(s): Children Patient/Family Comments: Alison May Caregiver Assessment: Caregiver is ready, willing and able to meet the patient's needs as recommended by the inter-professional team: No Caregiver needed Transport at Discharge: Transportation Arrangements: Car Needs Prior to Discharge: Needs Prior to Discharge: To Be Determined Post-Acute Discharge Plan: 79 yr female admitted after Fall with Scalp Hematoma. Pt. 2 Daus, Nia and Debra. in Room for Assessment. Pt. lives alone in 1 story home, has Meals on wheels Delivery and Family Support. Pt. ahs Cane and Walker at Home. Pt. plans to return Home at D/C. SIGNATURE: Madonna Carroll RN,BSN, ACM PATIENT NAME: Lou Oliver DATE: July 15, 2024 TIME: 10:18 AM CONTACT #: [phone] Normal [facility] CBC panel Auto (Bld)on 07-15 Erythrocyte distribution width (RBC) [Ratio] 11.8 % Normal 11.5-15.0 [facility] Comment on above: Order Comment: Musa badillo Type: BLOOD SPECIMENOrdering Facility: [facility] Address: [address] [place] [address] Performed By: #### 5 8410-2 ####[facility]ORATORYCLIA [id number] [address] [place] Hematocrit (Bld) [Volume fraction] 33.8 % Low 36.0-46.0 [facility] Comment on above: Order Comment: Musa badillo Type: BLOOD SPECIMENOrdering Facility: [facility] Address: [address] [place] [address] Performed By: #### 5 8410-2 ####[facility]ORATORYCLIA [id number] [place] [address] [place] Hemoglobin (Bld) [Mass/Vol] 11.4 g/dL Low 11.5-15.5 [facility] Comment on above: Order Comment: Musa badillo Type: BLOOD SPECIMENOrdering Facility: [facility] Address: [address] [place] [address] Performed By: #### 5 8410-2 ####[facility]ORATORYCLIA [id number] [place] [address] [place] MCH (RBC) [Entitic mass] 31.1 pg Normal 26.0-34.0 [facility] Comment on above: Order Comment: Speci men Type: BLOOD SPECIMENOrdering Facility: [facility] Address: [address] [place] [address] Performed By: #### 5 8410-2 ####[facility] LABORATORYCLIA [id number] [address] MCHC (RBC) [Mass/Vol] 33.7 g/dL Normal 30.5-36.0 [facility] Comment on above: Order Comment: Speci men Type: BLOOD SPECIMENOrdering Facility: [facility] Address: [address] [place] [address] Performed By: #### 5 8410-2 ####[facility]ORATORYCLIA [id number] [address] MCV (RBC) [Entitic vol] 92.3 fL Normal 80.0-100.0 [facility] Comment on above: Order Comment: Speci men Type: BLOOD SPECIMENOrdering Facility: [facility] Address: [address] [place] [address] Performed By: #### 5 8410-2 ####[facility]ORATORYCLIA [id number] [address] Nucleated RBC (Bld) [#/Vol] 10*3/uL Normal <0.01 [facility] Comment on above: Order Comment: Speci men Type: BLOOD SPECIMENOrdering Facility: [facility] Address: [address] [place] [address] Performed By: #### 5 8410-2 ####[facility]ORATORYCLIA [id number] [address] Platelet mean volume (Bld) [Entitic vol] 10.0 fL Normal 9.0-12.7 [facility] Comment on above: Order Comment: Speci men Type: BLOOD SPECIMENOrdering Facility: [facility] Address: [address] [place] [address] Performed By: #### 5 8410-2 ####[facility]ORATORYCLIA [id number] [address] [place] Platelets (Bld) [#/Vol] 192 10*3/uL Normal 150-400 [facility] Comment on above: Order Comment: Musa badillo Type: BLOOD SPECIMENOrdering Facility: [facility] Address: [address] [place] [address] Performed By: #### 5 8410-2 ####[facility] LABORATORYCLIA [id number] [place], [place] [id number] [place] [address] RBC (Bld) [#/Vol] 3.66 10*6/uL Low 3.90-5.20 [facility] Comment on above: Order Comment: Musa badillo Type: BLOOD SPECIMENOrdering Facility: [facility] Address: [address] [place] [address] Performed By: #### 5 8410-2 ####[facility]ORATORYCLIA [id number] [address] WBC (Bld) [#/Vol] 5.21 10*3/uL Normal 3.70-11.00 [facility] Comment on above: Order Comment: Miguel Ai justino Type: BLOOD SPECIMENOrdering Facility: [facility] Address: [address] [place] [address] Performed By: #### 5 8410-2 ####[facility] LABORATORYCLIA [id number] [address] CNDSon 07-15-2024 CNDS HNO ID: [id number] Author: RAMSEY MAYORGA MD Service: Hospital Medicine Author Type: Physician Type: Discharge Summary Filed: 07/15/2024 15:40 Note Text: DISCHARGE SUMMARY PATIENT NAME: Lou Oliver ADMISSION DATE: 07/14/2024 DISCHARGE DATE: 07/15/2024 ATTENDING PHYSICIAN: Ramsey Mayorga MD Code Status: Full Code PCP: Marvel Rizzo MD Highest Readmission Risk Score: 10 The 30 day readmissions risk score is derived from an internally validated risk model which evaluates patient level characteristics, utilization history, medication orders and lab results up until the day of discharge. Patients with a score of 40 or above are considered highest risk for readmission. Specific patient level drivers will be listed at the bottom of the summary. TRANSITIONS OF CARE CRITICAL ISSUES: COOL MEDICATION CHANGES: Midodrine 5 mg TID FOLLOW UP APPOINTMENTS: neurology and PCP REASON FOR HOSPITALIZATION/PRINCI PAL DIAGNOSES: Syncope HOSPITAL PROBLEMS: Principal Problem (Resolved): Syncope and collapse (POA: Yes) Active Problems: Hypothyroidism (POA: Yes) Parkinson disease (HCC) (POA: Yes) Hematoma of scalp (POA: Yes) HOSPITAL COURSE: Admission Information Admission Information ADMIT DATE: 07/14/2024 DISCHARGE DATE: 07/15/2024 MY DOCTORS AND MEDICAL TEAM: My Main Hospital Doctor: Ramsey Mayorga MD Primary Care Provider: Marvel Rizzo MD My Medical Team Members: Treatment Team: Attending Provider: Ramsey Mayorga MD Primary Service: 1, [facility] MY CONDITION AT DISCHARGE: Stable REASON I WAS IN THE HOSPITAL: Syncope due to low BP SUMMARY OF WHAT HAPPENED WHILE I WAS IN THE HOSPITAL: This is a 79 year old female with a PMH of Parkinson's disease, intracranial meningioma, Migraines, hypothyroidism, GERD, HTN, and depression presents to ED after fall getting out of the car going to her neurology appointment. States she may suffered syncopal event. Reports multiple episodes of syncope and presyncope ongoing for the past several months. Reports that she often feels lightheadedness and will often fall. Reports today she struck the back of her head on the concrete. Not currently on any anticoagulation. CT of the head showed scalp hematoma. Daughter reports that at home patient's blood pressure has been low of 70 systolic. States that she has been started on fludrocortisone due to blood pressure issues in the setting of Sinemet use. In the ED labs were completed. Imaging was significant for large scalp hematoma without acute intracranial findings. C-spine CT was negative for acute fractures. Given patient's ongoing symptoms of presyncope/syncope she is admitted under hospital service for admission. Seen and examined at the bedside. BP stable at this time. Discussed plans for admission and neurology consult. Patient started on Midodrine 2.5 mg, but did not improve the BP well enough. Will DC with 5 mg three times daily. Did discuss potentially using twice daily with third tab as needed. Did recommend sylvie hoses as may decrease the drop in BP when standing. Outpatient follow up with Dr. Mabry. Did decline [facility] at this time. OTHER PROBLEMS/DIAGNOSIS: Principal Problem (Resolved): Syncope and collapse Active Problems: Hypothyroidism Parkinson disease (HCC) Hematoma of scalp OPERATIONS PERFORMED WHILE IN THE HOSPITAL: None IMPORTANT TEST/PROCEDURES: No procedures performed TEST RESULTS NOT AVAILABLE AT THIS TIME: No pending results Discharge Disposition Discharge Disposition: Home With Self Care Activity When You Leave the Hospital Resume pre-hospital activity Risk for fall - please use chairs etc when ambulation to hold on to or able to sit down if needed Diet Instructions Resume your pre-hospital diet OPERATIONS/PROCEDURE DURING THIS HOSPITALIZATION: * No surgery found * CONSULTS DURING HOSPITALIZATION: Treatment Team: Attending Provider: Ramsey Mayorga MD Primary Service: 1, [facility] PATIENT CONDITION AT DISCHARGE: Stable DISCHARGE DISPOSITION: Home with Self Care Discharge Physical Exam: VITAL SIGNS: Blood Pressure 142/67 Pulse 69 Temperature 36.4 ?C (97.5 ?F) (Oral) Respiration 16 Height 160 cm (5' 3 ) Weight 56.2 kg (123 lb 14.4 oz) Oxygen Saturation 99% Body Mass Index 21.95 kg/m? GENERAL: Alert, no distress, cooperative SKIN: Skin color, texture, turgor normal. No rashes or lesions. HEAD/SINUSES: No significant findings EYES: PERRLA, EOMI LUNGS: Lungs clear to auscultation, Good diaphragmatic excursion CARDIAC: Normal S1 and S2; no rubs, murmurs, or gallops ABDOMEN: Abdomen soft, non-tender, BS normal, No masses or organomegaly EXTREMITIES: Extremities normal, no deformities, edema, clubbing or skin discoloration. Good capillary refill., No ulcers NEURO: Cranial nerves II-XII intact PULSES: 2+ radial, 2+ carotid WOUND/SURGICAL SITE CARE: None SUPPLIES OR EQUIPMENT: None DIET: (more content not included)... Normal [facility] CONSULTon 07-15-2024 CONSULT HNO ID: [id number] Author: SHELIA MALDONADO MD Service: Neurology General Author Type: Physician Type: Consults Filed: 07/15/2024 16:43 Note Text: The Teleneurologist or [facility] is available from 8 am to 5 pm on weekdays. On weekends, at [place] and [place], the Teleneurologist or [facility] is available from 8 am to 5 pm, [facility] 8 am to 12 pm, [facility] 1 pm to 5 pm, [facility] 8 am to 12 pm, [place] 1 pm to 5 pm. Statutory holidays do not have teleneuro coverage. [facility]: During Off hours for Teleneurology please page (not call) [place] [facility] [phone] blue print control clerk for concerns. [facility]: During Off hours for Teleneurology please page (not call) [place] [facility] [phone] blue print control clerk for concerns. [facility]: There is no off-hours coverage for Teleneurology. NEUROLOGY CONSULTATION Thank you for the consultation request. Name: Lou Oliver Age: [age] year old Gender: female Chief Complaint:Fall Admission Date: 07/14/2024 Consult Requested By: , recommendations will be communicated by shared medical record. HPI: Lou is a 79 year old female presenting with recurrent episodes of syncope. This is a patient who has history of Parkinson's disease worse on the left than the right. She is currently on levodopa 5 times a day. She has nausea with the medications. She has had problems controlling her blood pressure. Her blood pressure tends to drop to as low as 70 systolic. She has had a total of seven syncopal episodes. She becomes lightheaded and has to sit down most of the time. She fell and hit her head. She did not have any major injuries but has a bruise on the back of her head. She says that she is usually dizzy around 11 AM and 7 PM. Past medical history: She has history of intracranial meningioma for which she has had radiation therapy. Limited inpatient notes copied for reference This is a 79 year old female with a PMH of Parkinson's disease, intracranial meningioma, Migraines, hypothyroidism, GERD, HTN, and depression presents to ED after fall getting out of the car going to her neurology appointment. States she may suffered syncopal event. Reports multiple episodes of syncope and presyncope ongoing for the past several months. Reports that she often feels lightheadedness and will often fall. Reports today she struck the back of her head on the concrete. Not currently on any anticoagulation. CT of the head showed scalp hematoma. Daughter reports that at home patient's blood pressure has been low of 70 systolic. States that she has been started on fludrocortisone due to blood pressure issues in the setting of Sinemet use. In the ED labs were completed. Imaging was significant for large scalp hematoma without acute intracranial findings. C-spine CT was negative for acute fractures. Given patient's ongoing symptoms of presyncope/syncope she is admitted under hospital service for admission. Seen and examined at the bedside. BP stable at this time. Discussed plans for admission and neurology consult. Physical examination BP 142/82 Pulse 69 Temp 36.4 ?C (97.5 ?F) (Temporal) Resp 20 Ht 160 cm (5' 3 ) Wt 56.2 kg (123 lb 14.4 oz) SpO2 95% BMI 21.95 kg/m? She is awake alert and oriented. Speech and language are normal. Vision and visual alberts are intact. Eye movements are intact. Facial movements are intact. There is minimal facial asymmetry which she attributes to radiation for meningioma. Tongue and palate movements are normal. Motor examination shows minimal dyskinesia of the left side. There is no obvious tremor. Sensation is minimally decreased on the left. Impression and Recommendations Orthostatic hypotension with syncope. This is a common problem in Parkinson's disease. She is on fludrocortisone. I recommend adding midodrine twice a day. She can take this in the morning and around 3 PM. I told her that she may be able to adjust this based on her symptoms. If she has a headache she should check her blood pressure to make sure that it is not too high. Parkinson's disease with dyskinesia. This is stable. She will follow-up with Dr. Mabry. Closed head injury. Due to fall. Assessment AND Plan Syncope and collapse Hypothyroidism Parkinson disease (HCC) Hematoma of scalp Teleneurology will not follow this patient. Please call for additional assistance. Sehlia Maldonado MD Staff Neurologist Neurological [facility] Patient was seen using telemedicine services on this date. Examination was completed by Teleneurology video ([employer] crowdmarketing system) assisted by Teleneurology nurse at bedside. I spent a total of approximately 60 minutes on the date of service that included preparing to see the patient, video evaluation including examination by Teleneurology nurse, completing clinical documentation, obtaining and/or reviewing separately obtained history, counseling and educating the patient/family/caregiv er, ordering medicat (more content not included)... Normal [facility] ECHOon 07-15-2024 Echocardiography Echocardiography Report: Transthoracic Echo [facility] Date of service: 07/15/2024 11:00:49 AM Ordering physician: NELLIE JJ Indication: hypotension Technologist: Sravanthi Purcell [facility] Interpreting physician: Diamond Morris MD PATIENT: Name: MS. LOU OLIVER : 1945 Age: 79 years Gender: F History of hypertension and dyslipidemia. Primary rhythm: sinus. Height: 162.60 cm BSA: 1.61 m Weight: 57.42 kg BMI: 21.7 kg/m Heart rate 72 bpm Blood pressure 142/82 mmHg Technically difficult exam due to body habitus and parkinsons disease, shaking. Color Doppler was utilized to interrogate the cardiac valves assessed and spectral Doppler was utilized to determine the flow velocities and pressure gradients reported in this exam. MEASUREMENTS: Value Indexed Normal Max aortic dimension 3.3 cm Ao < 3.8 Left atrial volume 52 ml (biplane A-L) 32 ml/m Shilpa <= 34 LV ID (diastole) 4.2 cm (2D) 2.64 cm/m LV ID (systole) 3.0 cm (2D) 1.89 cm/m IVS, leaflet tips 1.0 cm (2D) Posterior wall thickness 1.2 cm (2D) Left ventricular mass 153 g (2D) 95 g/m LV stroke volume 53 ml (2D biplane) LV end diastolic volume 91 ml (2D biplane) 56.2 ml/m 29<=EDVi<62 LV end systolic volume 38 ml (2D biplane) 23.5 ml/m Ejection Fraction 58 % (2D biplane) EF > 54 FINDINGS: LEFT VENTRICLE The left ventricle is normal in size. Left ventricular systolic function is normal. Grade I left ventricular diastolic dysfunction. Mitral annular lateral E/e': 9.3. Mitral annular septal E/e': 11.6. Wall Motion: All scored segments are normal. RIGHT VENTRICLE The right ventricle is normal in size. Right ventricular systolic function is normal. RV systolic tissue Doppler velocity is 14.0 cm/s. Tricuspid annular displacement is 2.0 cm. Estimated right ventricular systolic pressure is 19 mmHg consistent with normal pulmonary artery pressures. Estimated right atrial pressure is 3 mmHg based on IVC assessment. LEFT ATRIUM The left atrial cavity is normal in size. Pulmonary Veins: The pulmonary venous pattern showed blunted systolic flow. RIGHT ATRIUM The right atrial cavity is normal in size. Inferior Vena Cava: The inferior vena cava appears normal measuring 1.9 cm. The vessel decreases greater than 50 percent with inspiration. MITRAL VALVE The mitral valve leaflets are structurally normal. There is mild (1+) mitral valve regurgitation. The pressure half time is 75 msec. The peak mitral E/A ratio is 0.55. The average mitral E/e' ratio is 10.4. The mitral flow deceleration time is 259 msec. TRICUSPID VALVE The tricuspid valve leaflets are structurally normal. There is trace tricuspid valve regurgitation. AORTIC VALVE The aortic valve cusps are structurally normal. There is mild (1+) aortic valve regurgitation. Tricuspid aortic valve. PULMONIC VALVE The pulmonic valve cusps are structurally normal. There is trace (trace - 1+) pulmonic valve regurgitation. AORTA The visualized aorta is normal in size. Measurements - Sinus: 3.3 cm. Mid ascending aorta 3.3 cm. PERICARDIUM There is no pericardial effusion. CONCLUSIONS: - Technically difficult exam due to body habitus and parkinsons disease, shaking. - Exam indication: hypotension - The left ventricle is normal in size. Left ventricular systolic function is normal. EF = 58 5% (2D biplane) Grade I left ventricular diastolic dysfunction. - The right ventricle is normal in size. Right ventricular systolic function is normal. - There are no significant valvular abnormalities. - There is mild (1+) mitral regurgitation. - There is mild (1+) aortic regurgitaion. - The patient has not had a prior CC echocardiographic exam for comparison. * * * Final * * * [facility] Image : [id number] [facility] THERAPY NTon 07-15-2024 THERAPY NT HNO ID: [id number] Author: FRANCISCO CABRALES PT Service: Physical Therapy Author Type: Physical Therapist Type: Therapy (PT/OT/Speech/Resp) Filed: 07/16/2024 14:52 Note Text: Summary: PT evaluation Physical Therapy Evaluation Summary SERVICE DATE: 07/15/2024 SERVICE TIME: 1400 to 1447 ROOM: [id number] PT 6 Clicks Score: 18 DISCHARGE RECOMMENDATIONS Home PT Recommended Discharge Disposition Comments: for safety assessment and to increase strength and progress safe functional mobility to support safe home going Recommended Discharge Equipment: No equipment needs anticipated ASSESSMENT Response to Therapy Interventions: Good Participation in Activities, Improved Tolerance for Activity, Multiple Ongoing Medical Issues, Pain, Notable Progression with Functional Activities/Skills, On-Track to Achieve Discharge Goals patient presents with general weakness, +orthostatic s ymptoms, impared functional mobility and history f falls and +fall risk. Patient has improved stability with walker and cues for activity dosing. patient AANDO x 3 and follows through with cues. patient receptive to education for activity dosing.patient is safe for mobility with supervision and monitoring tolerance/vitals PRECAUTIONS Bed/Chair Alarm, Fall Risk, Lines/Tubes/Drains standard CURRENT HOSPITAL COURSE Patient presents with: Fall . patient admitted to step down unit Dx: Syncope and collapse. Relevant Past Medical History: diverticulitis, HTN, mental disorder, migraine without aura, Parkinson disease, hypothyroidism, GERD, Parkinson's disease HOME LIVING Patient Lives With: Self/Alone Assistance Available: PRN (2 daughters within area and siblings) Entry To Home: Stairs, Without Rail Number Of Stairs Into Home: 1 Number Of Stairs To Bed/Bath: one story home Tub/Shower Type: walk in shower and tub shower Laundry: patient completes Equipment Owned: Cane, Rollator PRIOR FUNCTIONAL LEVEL Within Functional Limits ind with amb with cane however uses Rollator for distances. patient ind with ADL/IADL, drives short distances and manages own medications. patient intially reports fall 1 time/month however with fatigue admits to falling at least 1 time and up to a couple times/day due to syncopal symptoms SUBJECTIVE Patient agreeable to PT and cleared by RN. noted heavt head symptoms with upright positions. Per RN, +orthostatic vitals THERAPY DIAGNOSIS Reduced mobility-other TREATMENT INTERVENTIONS Evaluation, Therapeutic Activity (10647), Gait Training (49898), Therapeutic Exercise (96962) Timed Code Treatment (minutes): 28 Skilled Treatment Time (minutes): 45 $ Evaluation-Moderate (90634) Billed Units: 1 unit Therapeutic Exercise (10208) Treatment Minutes: 5 $ Therapeutic Exercise (39977) Billed Units: 0 units Therapeutic Activity (62015) Treatment Minutes: 15 $ Therapeutic Activity (91266) Billed Units: 1 unit Gait Training (50069) Treatment Minutes: 8 $ Gait Training (80982) Billed Units: 1 unit Range of Motion: WFL Strength: WFL Except, Strength Limitation Comments Strength Limitation Comments: seated MMT bilat LE's grossly 4- to 4/5 TRAINING AND EDUCATION PROVIDED Anatomy and Impact on Deficits, Bed Mobility, Benefits of In-Hospital Mobility, Discharge Planning, Expected Functional Level, Falls Prevention, Equipment, Gait Pattern, Reduction of Deviations, Positioning, Precautions/Restrictio ns, Role of Physical Therapy, Sitting Balance, Transfers, Pre-gait Activities, Standing Balance THERAPEUTIC SKILLS USED Activity Dosing, Assessment of Tolerance Including Vitals Response to Activity, Cuing Verbal, Cues for Sequencing/Proper Technique for Activity, Management of Critical Lines, Tubes and/or Drains, Muscle Activation Facilitation, Physical Assist, Postural Alignment Correction FUNCTIONAL STATUS Bed Mobility Supine To Sit: Stand By Assistance Sit to Supine: Stand By Assistance Scooting: Stand By Assistance in sitting, fwd and retro at EOB Transfers Sit To Stand: Contact Guard Assistance, Additional Information cues to scoot to edge before attempt to transfer to standing, cues for hand placement. CGA with noted instability. Stand To Sit: Additional Information, Contact Guard Assistance cues for safe approach of sitting surface with device, positioning at HOB, hand placement and controlled descent Bed to Chair Gait Minimal Assistance, Additional Information recommendation for FWW and educaiton for adjusting walker. rollator would be recommended if able to negotiate in home setting. cues for walker negotiation and sequencing. education for activity dosing. Gait Device: Wheeled Walker General Deviations/Observation s: Rosa decreased, Difficulty changing direction/turning, Flexed trunk (more content not included)... Normal [facility] THERAPY NT HNO ID: [id number] Author: ALEXANDRIA FOUNTAIN OTR/María Service: Occupational Therapy Author Type: Occupational Therapist Type: Therapy (PT/OT/Speech/Resp) Filed: 07/15/2024 14:40 Note Text: Summary: OT eval Occupational Therapy Evaluation Summary SERVICE DATE: 07/15/2024 SERVICE TIME: 1319 to 1403 ROOM: [place] [address] OT 6 Clicks Score: 20 DISCHARGE RECOMMENDATIONS Home OT Recommended Discharge Disposition Comments: Once BP stabilized feel patient would benefit from continued therapy at home to increase overall ease independence and safety with ADLS and functional mobiltiy tasks within home Anticipated Discharge Needs: Physical Assist at Home, Supervision at Home Physical Assist at Home for: Cleaning, Laundry, Meals, Safety, Shopping, Transportation Supervision at Home due to: Other: See Comment ASSESSMENT Response to Therapy Interventions: Labile Vital Signs PRECAUTIONS Bed/Chair Alarm, Fall Risk, Lines/Tubes/Drains standard CURRENT HOSPITAL COURSE Admitted after syncope and fall Relevant Past Medical History: Parkinson's disease, intracranial meningioma, Migraines, hypothyroidism, GERD, HTN, and depression HOME LIVING Patient Lives With: Self/Alone Assistance Available: PRN (2 daughters within area and siblings) Entry To Home: Stairs, Without Rail Number Of Stairs Into Home: 1 Number Of Stairs To Bed/Bath: one story home Tub/Shower Type: walk in shower and tub shower Laundry: patient completes Equipment Owned: Cane, Rollator PRIOR FUNCTIONAL LEVEL Within Functional Limits Independent with ADLS, and IADLS, limited driving, Utilized cane at all times and rollator at times for longer distances Limited driving, Independent with medication management SUBJECTIVE Patient cleared by nursing supine in bed agreeable to OT with daughters present COGNITION Responsiveness: Alert, Awake Follows Commands: Cueing Needed Cueing to Follow Commands: Minimum THERAPY DIAGNOSIS Reduced mobility-other, Decreased activities of daily living (ADL), General symptoms and signs-other TREATMENT INTERVENTIONS Evaluation, Self Half-Way Management (64057) Timed Code Treatment (minutes): 20 Skilled Treatment Time (minutes): 35 TRAINING AND EDUCATION PROVIDED Activity Adaptation/Parts Analyst y Strategies, Assistive Device Use, Adaptive Equipment/DME, Bed Mobility, Benefits of In-Hospital Mobility, Discharge Planning, Functional Mobility Involving ADLs, Grooming Tasks, Lower Extremity Dressing, Role of Occupational Therapy, Safety/Judgment, Transfer - Sit to Stand THERAPEUTIC SKILLS USED Activity Dosing, Assessment of Tolerance Including Vitals Response to Activity, Cues for Sequencing/Proper Technique for Activity, Cuing Tactile, Cuing Verbal, Physical Assist FUNCTIONAL STATUS Activities of Daily Living Assist Level Additional Information Feeding Independent Grooming Additional Information, Minimal Assistance seated, did not ambulate to bathroom due to + orthostatic, If BP stabilized per clinical judgement would be able to complete with CG Bathing Upper Body Stand By Assistance, Additional Information per clinical judgement seated Bathing Lower Body Additional Information, Minimal Assistance per clinical judgement seated Dressing Upper Body Stand By Assistance, Additional Information seated Dressing Lower Body Contact Guard Assistance, Additional Information for safety, able to don doff socks seated EOB, reports she dons doffs socks in standing with patient educated on safety and recommendation to sit to don doff socks Toileting Minimal Assistance, Additional Information per clinical judgement Mobility Assist Level Additional Information Bed Mobility Supine To Sit: Contact Guard Assistance Sit To Supine: Contact Guard Assistance Sit to Stand Contact Guard Assistance, Additional Information cues for hand placement, EOB to walker however patient +orthostatic with complaints of legs feeling watery and head feeling heavy Stand to Sit Contact Guard Assistance, Additional Information cues to reach back to control descent Bed to Chair Toilet/Commode Shower Functional Mobility Additional Information Due to + orthostatic did not ambulate away from bed GOALS Patient will demonstrate progress with self-care, cognitive and/or coping needs identified to allow safe discharge to home with available support and/or physical assistance. Progress Toward Goals: Progressing slower than expected Rehab Potential: Good PLAN OT Frequency: 3 Times Per Week Treatment Interventions: Education, Self Care/Home Management, Strengthening, Functional Mobility Training, Balance Training Plan for Next Visit: Bed Mobility, Dressing Training, Chair/Commode Transfer Training, Grooming Training, Sit to Stand Transf (more content not included)... [facility] THERAPY NT HNO ID: [id number] Author: FRANCISCO CABRALES PT Service: Physical Therapy Author Type: Physical Therapist Type: Therapy (PT/OT/Speech/Resp) Filed: 07/15/2024 11:01 Note Text: Summary: PT missed visit PHYSICAL THERAPY MISSED VISIT SERVICE DATE: 07/15/2024 SERVICE TIME: 1100 ROOM: [address] Patient not seen due to Patient Not Available. Will approach as patient available and appropriate. SIGNATURE: Francisco Cabrales PT PATIENT NAME: Lou Oliver DATE: July 15, 2024 TIME: 11:00 AM [facility] ALLIED HEALTHon 07-14-2024 ALLIED HEALTH HNO ID: [id number] Author: ZHANE AMIN, OBIE Service: Radiology Author Type: Technologist Type: Allied Health Filed: 07/14/2024 15:07 Note Text: Radiology Service Progress Note PATIENT NAME: Lou Oliver DATE OF SERVICE: July 14, 2024 TIME: 3:06 PM PATIENT IDENTITY VERIFICATION COMPLETED USING TWO (2) IDENTIFIERS: Name and Date of confirmed by patient verbally and Name and Date of confirmed by identification band. FALL SCREENING: Has the patient had 2 falls in the last year or 1 fall with injury or currently using an Ambulatory Assistive Device (Walker, Cane, Wheelchair, Crutches, etc.)? Emergency Room Patient: Screened in ED PATIENT GENDER DATA: Female. status: : No status: NO. PATIENT RELEVANT IMPLANT DATA REVIEWED: Not Applicable PATIENT PRESENTS WITH AN IMPLANTABLE OR ATTACHED FUEL CELL BUILDER: No RADIOLOGY DEPARTMENT: CT; Exam(s) Completed: Brain and Spine PERIPHERAL IV DATA: Not applicable SIGNED BY: OBIE Mix July 14, 2024 3:06 PM Normal [facility] ALLIED HEALTH HNO ID: [id number] Author: NAINA MARAVILLA RT(Aki) Service: Radiology Author Type: Head Sulfide Operator Type: Allied Health Filed: 07/14/2024 14:49 Note Text: Radiology Service Progress Note PATIENT NAME: Lou Oliver DATE OF SERVICE: July 14, 2024 TIME: 2:49 PM PATIENT IDENTITY VERIFICATION COMPLETED USING TWO (2) IDENTIFIERS: Name and Date of confirmed by patient verbally. FALL SCREENING: Has the patient had 2 falls in the last year or 1 fall with injury or currently using an Ambulatory Assistive Device (Walker, Cane, Wheelchair, Crutches, etc.)? Emergency Room Patient: Screened in ED PATIENT GENDER DATA: Female. status: : No status: NO. PATIENT RELEVANT IMPLANT DATA REVIEWED: Not Applicable PATIENT PRESENTS WITH AN IMPLANTABLE OR ATTACHED FUEL CELL BUILDER: No RADIOLOGY DEPARTMENT: General X-ray: Exam(s) Completed: Chest X-Ray PERIPHERAL IV DATA: Not applicable SIGNED BY: RT Scottie(R) July 14, 2024 2:49 PM Normal [facility] CBC W Auto Differential pane l (Bld)on 07-14-2024 Basophils (Bld) [#/Vol] 10*3/uL Normal <0.11 [facility] Comment on above: Order Comment: Speci men Type: BLOOD SPECIMENOrdering Facility: [facility] Address: [address] [place] [address] Performed By: #### 5 7021-8 ####[facility] LABORATORYCLIA [id number] [address] [place] Basophils/100 WBC (Bld) 0.4 % Normal [facility] Comment on above: Order Comment: Speci men Type: BLOOD SPECIMENOrdering Facility: [facility] Address: [address] [place] [address] Performed By: #### 5 7021-8 ####[facility] LABORATORYCLIA [id number] [place] [address] [place] Differential cell count method Nom (Bld) Auto Normal [facility] Comment on above: Order Comment: Speci men Type: BLOOD SPECIMENOrdering Facility: [facility] Address: [address] [place] [address] Performed By: #### 5 7021-8 ####[facility] LABORATORYCLIA [id number] [place] [address] [place] Eosinophils (Bld) [#/Vol] 0.06 10*3/uL Normal <0.46 [facility] Comment on above: Order Comment: Speci men Type: BLOOD SPECIMENOrdering Facility: [facility] Address: [address] [place] [address] Performed By: #### 5 7021-8 ####EN[facility] LABORATORYCLIA [id number] [address] [place] Eosinophils/100 WBC (Bld) 1.1 % Normal [facility] Comment on above: Order Comment: Speci men Type: BLOOD SPECIMENOrdering Facility: [facility] Address: [address] [place] [address] Performed By: #### 5 7021-8 ####[facility] LABORATORYCLIA [id number] [place] [address] [place] Erythrocyte distribution width (RBC) [Ratio] 11.9 % Normal 11.5-15.0 [facility] Comment on above: Order Comment: Speci men Type: BLOOD SPECIMENOrdering Facility: [facility] Address: [address] [place] [address] Performed By: #### 5 7021-8 ####ENRI[facility] LABORATORYCLIA [id number] [place] [address] [place] Hematocrit (Bld) [Volume fraction] 32.1 % Low 36.0-46.0 [facility] Comment on above: Order Comment: Speci men Type: BLOOD SPECIMENOrdering Facility: [facility] Address: [address] [place] [address] Performed By: #### 5 7021-8 ####ENRI[facility] LABORATORYCLIA [id number] [place] [address] [place] Hemoglobin (Bld) [Mass/Vol] 10.7 g/dL Low 11.5-15.5 [facility] Comment on above: Order Comment: Speci men Type: BLOOD SPECIMENOrdering Facility: [facility] Address: [address] [place] [address] Performed By: #### 5 7021-8 ####ENRI[facility] LABORATORYCLIA [id number] [place] [address] [place] Immature granulocytes (Bld) [#/Vol] 10*3/uL Normal <0.10 [facility] Comment on above: Order Comment: Speci men Type: BLOOD SPECIMENOrdering Facility: [facility] Address: [address] [place] [address] Performed By: #### 5 7021-8 ####EN[facility] LABORATORYCLIA [id number] [place] [address] [place] Immature granulocytes/100 WBC (Bld) 0.4 % Normal [facility] Comment on above: Order Comment: Speci men Type: BLOOD SPECIMENOrdering Facility: [facility] Address: [address] [place] [address] Performed By: #### 5 7021-8 ####EN[facility] LABORATORYCLIA [id number] [place] [address] [place] Lymphocytes (Bld) [#/Vol] 1.65 10*3/uL Normal 1.00-4.00 [facility] Comment on above: Order Comment: Speci men Type: BLOOD SPECIMENOrdering Facility: [facility] Address: [address] [place] [address] Performed By: #### 5 7021-8 ####EN[facility] LABORATORYCLIA [id number] [address] [place] Lymphocytes/100 WBC (Bld) 30.9 % Normal [facility] Comment on above: Order Comment: Speci men Type: BLOOD SPECIMENOrdering Facility: [facility] Address: [address] [place] [address] Performed By: #### 5 7021-8 ####EN[facility] LABORATORYCLIA [id number] [address] [place] MCH (RBC) [Entitic mass] 30.9 pg Normal 26.0-34.0 [facility] Comment on above: Order Comment: Speci men Type: BLOOD SPECIMENOrdering Facility: [facility] Address: [address] [place] [address] Performed By: #### 5 7021-8 ####ENRI[facility] LABORATORYCLIA [id number] [address] [place] MCHC (RBC) [Mass/Vol] 33.3 g/dL Normal 30.5-36.0 [facility] Comment on above: Order Comment: Speci men Type: BLOOD SPECIMENOrdering Facility: [facility] Address: [address] [place] [address] Performed By: #### 5 7021-8 ####ENRIQUE[facility] LABORATORYCLIA [id number] [address] MCV (RBC) [Entitic vol] 92.8 fL Normal 80.0-100.0 [facility] Comment on above: Order Comment: Speci men Type: BLOOD SPECIMENOrdering Facility: [facility] Address: [address] [place] [address] Performed By: #### 5 7021-8 ####ENRI[facility] LABORATORYCLIA [id number] [address] [place] Monocytes (Bld) [#/Vol] 0.44 10*3/uL Normal <0.87 [facility] Comment on above: Order Comment: Speci men Type: BLOOD SPECIMENOrdering Facility: [facility] Address: [address] [place] [address] Performed By: #### 5 7021-8 ####ENRI[facility] LABORATORYCLIA [id number] [place] [address] [place] Monocytes/100 WBC (Bld) 8.2 % Normal [facility] Comment on above: Order Comment: Speci men Type: BLOOD SPECIMENOrdering Facility: [facility] Address: [address] [place] [address] Performed By: #### 5 7021-8 ####ENRI[facility] LABORATORYCLIA [id number] [place] [address] [place] Neutrophils (Bld) [#/Vol] 3.15 10*3/uL Normal 1.45-7.50 [facility] Comment on above: Order Comment: Speci men Type: BLOOD SPECIMENOrdering Facility: [facility] Address: [address] [place] [address] Performed By: #### 5 7021-8 ####EN[facility] LABORATORYCLIA [id number] [place] [address] [place] Neutrophils/100 WBC (Bld) 59.0 % Normal [facility] Comment on above: Order Comment: Speci men Type: BLOOD SPECIMENOrdering Facility: [facility] Address: [address] [place] [address] Performed By: #### 5 7021-8 ####[facility] LABORATORYCLIA [id number] [place] [address] [place] Nucleated RBC (Bld) [#/Vol] 10*3/uL Normal <0.01 [facility] Comment on above: Order Comment: Speci men Type: BLOOD SPECIMENOrdering Facility: [facility] Address: [address] [place] [address] Performed By: #### 5 7021-8 ####EN[facility] LABORATORYCLIA [id number] [place] [address] [place] Nucleated RBC/100 WBC (Bld) [Ratio] 0.0 /100 WBC Normal [facility] Comment on above: Order Comment: Speci men Type: BLOOD SPECIMENOrdering Facility: [facility] Address: [address] [place] [address] Performed By: #### 5 7021-8 ####ENRI[facility] LABORATORYCLIA [id number] [place] [address] [facility] [place] Platelet mean volume (Bld) [Entitic vol] 9.8 fL Normal 9.0-12.7 [facility] Comment on above: Order Comment: Musa badillo Type: BLOOD SPECIMENOrdering Facility: [facility] Address: [address] [place] [address] Performed By: #### 5 7021-8 ####ENRI[facility] LABORATORYCLIA [id number] [place] [address] [place] Platelets (Bld) [#/Vol] 187 10*3/uL Normal 150-400 [facility] Comment on above: Order Comment: Miguel Ai men Type: BLOOD SPECIMENOrdering Facility: [facility] Address: [address] [place] [address] Performed By: #### 5 7021-8 ####[facility] LABORATORYCLIA [id number] [address] [place] RBC (Bld) [#/Vol] 3.46 10*6/uL Low 3.90-5.20 [facility] Comment on above: Order Comment: Miguel Ai men Type: BLOOD SPECIMENOrdering Facility: [facility] Address: [address] [place] [address] Performed By: #### 5 7021-8 ####ENRI[facility] LABORATORYCLIA [id number] [address] [place] WBC (Bld) [#/Vol] 5.34 10*3/uL Normal 3.70-11.00 [facility] Comment on above: Order Comment: Miguel Ai men Type: BLOOD SPECIMENOrdering Facility: [facility] Address: [address] [place] [address] Performed By: #### 5 7021-8 ####ENRIQUE[facility] LABORATORYCLIA [id number] [address] [place] 07-14-2024 ADRIANNAN Telephone ([facility]) LOU OLIVER ([id number]) 1945 F Date Time Provider Department 07/14/24 MARVEL RIZZO During your visit today, we recorded the following information about you: Magnolia Lindsey RN 07/14/2024 2:09 PM Signed Patient fell in the parking lot hitting the back of her head. 911 was called she was taken to [place] ED for Further evaluation. No open areas noted Ice pack applied. Allergies As of Date: 07/14/2024 Noted Allergy Reaction SULFA (SULFONAMIDE ANTIBIOTICS) 10/26/2005 4 - Hives Date Reviewed: 07/14/2024 Reviewed by: Jimena Cat RN - Fully Assessed Reason for Visit: Patient Update [1234] Prescriptions as of 07/14/2024 - pantoprazole DR (PROTONIX) 40 mg tablet Take 1 tablet by mouth once daily. On empty stomach at least 30 minutes before eating. - sertraline (ZOLOFT) 50 mg tablet Take 1 tablet by mouth once daily. Take a total of 150 mgs daily. - sertraline (ZOLOFT) 100 mg tablet Take 1 tablet by mouth once daily. - fludrocortisone (FLORINEF) 0.1 mg tablet Take 1 tablet by mouth once daily. - levothyroxine (SYNTHROID) 75 mcg tablet Take 1 tablet by mouth once daily. Take on empty stomach. For Thyroid - carbidopa-levodopa (SINEMET 25-100) 25-100 mg per tablet TAKE 1 TAB AT 7AM, 1.5 TO 2 TABS AT 11AM, 1.5 TABS AT 3PM AND 1 TAB AT 7PM. - triamcinolone acetonide (KENALOG) 0.1 % cream Apply 1 application to affected area three times a day. Apply sparingly to area for rash/itching. - Olopatadine (PATADAY ONCE DAILY RELIEF) 0.2 % drop Use 1 Drop in both eyes once daily. - ondansetron orally disintegrating (ZOFRAN ODT) 4 mg disintegrating tablet Take 1 tablet by mouth every 8 hours as needed for nausea/vomiting. - docusate sodium (COLACE) 100 mg capsule Take 1 capsule by mouth two times a day. - pravastatin (PRAVACHOL) 20 mg tablet Take 1 tablet by mouth daily at bedtime. - carbidopa-levodopa CR (SINEMET CR) 50-200 mg per tablet TAKE 1 TABLET BY MOUTH in Morning and before bedtime as instructed. - gabapentin (NEURONTIN) 100 mg capsule Take 1 capsule by mouth two times a day for 180 days. - LORazepam (ATIVAN) 0.5 mg Take 0.5 mg by mouth as needed. - Cholecalciferol, Vitamin D3, 50 mcg (2,000 unit) cap Take 2,000 Units by mouth once daily. - diclofenac sodium (VOLTAREN) 1 % topical gel APPLY 2 GRAMS TO AFFECTED AREA 4 TIMES A DAY Problem List As Of Date 07/14/2024 Noted Resolved Essential hypertension, benign [I10] 04/04/2007 Hypothyroidism [E03.9] 04/04/2007 COMMON MIGRAINE [346.1] 04/04/2007 Anxiety state [F41.1] 04/04/2007 Mixed hyperlipidemia [E78.2] 10/26/2009 Pes anserinus bursitis of left knee [M70.52] 10/29/2013 Left knee pain [M25.562] 10/29/2013 Cervical spondylosis without myelopathy [M47.81*05/18/2020 Parkinson disease (HCC) [G20.A1] 07/18/2020 Spinal stenosis of cervical region [M48.02] 07/18/2020 Intracranial meningioma (HCC) [D32.0] 07/18/2020 Palpitations [R00.2] 10/03/2020 Shortness of breath [R06.02] 10/03/2020 Tachycardia [R00.0] 06/12/2021 Neck pain [M54.2] 04/09/2023 Neck muscle weakness [M53.82] 04/09/2023 Major depressive disorder, single episode, nila*06/05/2024 Encounter Status:Closed by MAGNOLIA LINDSEY on 07/14/24 Normal [facility] Telephone (NRMDN) LOU OLIVER ([id number]) 1945 F Date Time Provider Department 07/14/24 SAYRA MABRY During your visit today, we recorded the following information about you: Arlene Russo 07/14/2024 2:15 PM Signed Patient will need contacted to reschedule appt on 07/14/2024 (Patient admitted to ED). Arlene Dent 07/15/2024 2:08 PM Signed Patient still admitted. Will contact Patient once discharged. Arlene Dent 07/15/2024 4:30 PM Signed Patient's daughter presented to office. She has scheduled Patient for 07/31/2024 at 9:30 AM. Arlene Russo Allergies As of Date: 07/14/2024 Noted Allergy Reaction SULFA (SULFONAMIDE ANTIBIOTICS) 10/26/2005 4 - Hives Date Reviewed: 07/14/2024 Reviewed by: Jimena Cat, RN - Fully Assessed Reason for Visit: Appointment [186] Prescriptions as of 07/15/2024 - midodrine (PROAMITINE) 5 mg tablet Take 1 tablet by mouth every 8 hours. - pantoprazole DR (PROTONIX) 40 mg tablet Take 1 tablet by mouth once daily. On empty stomach at least 30 minutes before eating. - sertraline (ZOLOFT) 50 mg tablet Take 1 tablet by mouth once daily. Take a total of 150 mgs daily. - sertraline (ZOLOFT) 100 mg tablet Take 1 tablet by mouth once daily. - fludrocortisone (FLORINEF) 0.1 mg tablet Take 1 tablet by mouth once daily. - levothyroxine (SYNTHROID) 75 mcg tablet Take 1 tablet by mouth once daily. Take on empty stomach. For Thyroid - carbidopa-levodopa (SINEMET 25-100) 25-100 mg per tablet TAKE 1 TAB AT 7AM, 1.5 TO 2 TABS AT 11AM, 1.5 TABS AT 3PM AND 1 TAB AT 7PM. - Olopatadine (PATADAY ONCE DAILY RELIEF) 0.2 % drop Use 1 Drop in both eyes once daily. - ondansetron orally disintegrating (ZOFRAN ODT) 4 mg disintegrating tablet Take 1 tablet by mouth every 8 hours as needed for nausea/vomiting. - docusate sodium (COLACE) 100 mg capsule Take 1 capsule by mouth two times a day. - pravastatin (PRAVACHOL) 20 mg tablet Take 1 tablet by mouth daily at bedtime. - carbidopa-levodopa CR (SINEMET CR) 50-200 mg per tablet TAKE 1 TABLET BY MOUTH in Morning and before bedtime as instructed. - gabapentin (NEURONTIN) 100 mg capsule Take 1 capsule by mouth two times a day for 180 days. - LORazepam (ATIVAN) 0.5 mg Take 0.5 mg by mouth as needed. - Cholecalciferol, Vitamin D3, 50 mcg (2,000 unit) cap Take 2,000 Units by mouth once daily. Facility-Administered Medications as of 07/15/2024 - LORazepam 0.5 mg tab(s) (ATIVAN) - pravastatin 20 mg tab(s) (PRAVACHOL) - docusate sodium 100 mg cap(s) (COLACE) - pantoprazole DR 40 mg tab(s) (PROTONIX) - fludrocortisone 0.1 mg tab(s) (FLORINEF) - levothyroxine 75 mcg tab(s) (SYNTHROID) - carbidopa-levodopa CR 50-200 mg 1 tablet (SINEMET CR) - NaCl 0.9% iv flush bag - ondansetron orally disintegrating 4 mg tab(s) (ZOFRAN ODT) - ondansetron (PF) 4 mg injection (ZOFRAN) - magnesium hydroxide 400 mg/5 mL 30 mL (MOM) - acetaminophen 650 mg tab(s) (TYLENOL) - oxyCODONE IR 5 mg tab(s) (ROXICODONE) - sodium chloride 0.9 % (flush) 2-10 mL (BD POSIFLUSH) - perflutren lipid microspheres 1.1 mg/mL 1.3 mL injection (DEFINITY) - midodrine 2.5 mg tab(s) (PROAMITINE) - carbidopa-levodopa 25-100 mg 1.5 tablet (SINEMET 25-100) - sertraline (ZOLOFT) tab(s) 150 mg Problem List As Of Date 07/14/2024 Noted Resolved Essential hypertension, benign [I10] 04/04/2007 Hypothyroidism [E03.9] 04/04/2007 COMMON MIGRAINE [346.1] 04/04/2007 Anxiety state [F41.1] 04/04/2007 Mixed hyperlipidemia [E78.2] 10/26/2009 Pes anserinus bursitis of left knee [M70.52] 10/29/2013 Left knee pain [M25.562] 10/29/2013 Cervical spondylosis without myelopathy [M47.81*05/18/2020 Parkinson disease (HCC) [G20.A1] 07/18/2020 Spinal stenosis of cervical region [M48.02] 07/18/2020 Intracranial meningioma (HCC) [D32.0] 07/18/2020 Palpitations [R00.2] 10/03/2020 Shortness of breath [R06.02] 10/03/2020 Tachycardia [R00.0] 06/12/2021 Neck pain [M54.2] 04/09/2023 Neck muscle weakness [M53.82] 04/09/2023 Major depressive disorder, single episode, nila*06/05/2024 Syncope and collapse [R55] 07/14/2024 Hematoma of scalp [S00.03XA] 07/14/2024 Encounter Status:Closed by [facility] ([id number]) 1945 F Date Time Provider Department 07/14/24 SAYRA MABRY During your visit today, we recorded the following information about you: Thea Luciano MA 07/14/2024 2:02 PM Signed Checked lobby and hallway patient not present at time of visit Janet De La Rosa RN 07/14/2024 2:08 PM Signed Patient fell in parking lot, transported to [facility] via squad. Allergies As of Date: 07/14/2024 Noted Allergy Reaction SULFA (SULFONAMIDE ANTIBIOTICS) 10/26/2005 4 - Hives Date Reviewed: 07/14/2024 Reviewed by: Jimena Cat RN - Fully Assessed Reason for Visit: Appointment [186] Prescriptions as of 07/14/2024 - pantoprazole DR (PROTONIX) 40 mg tablet Take 1 tablet by mouth once daily. On empty stomach at least 30 minutes before eating. - sertraline (ZOLOFT) 50 mg tablet Take 1 tablet by mouth once daily. Take a total of 150 mgs daily. - sertraline (ZOLOFT) 100 mg tablet Take 1 tablet by mouth once daily. - fludrocortisone (FLORINEF) 0.1 mg tablet Take 1 tablet by mouth once daily. - levothyroxine (SYNTHROID) 75 mcg tablet Take 1 tablet by mouth once daily. Take on empty stomach. For Thyroid - carbidopa-levodopa (SINEMET 25-100) 25-100 mg per tablet TAKE 1 TAB AT 7AM, 1.5 TO 2 TABS AT 11AM, 1.5 TABS AT 3PM AND 1 TAB AT 7PM. - triamcinolone acetonide (KENALOG) 0.1 % cream Apply 1 application to affected area three times a day. Apply sparingly to area for rash/itching. - Olopatadine (PATADAY ONCE DAILY RELIEF) 0.2 % drop Use 1 Drop in both eyes once daily. - ondansetron orally disintegrating (ZOFRAN ODT) 4 mg disintegrating tablet Take 1 tablet by mouth every 8 hours as needed for nausea/vomiting. - docusate sodium (COLACE) 100 mg capsule Take 1 capsule by mouth two times a day. - pravastatin (PRAVACHOL) 20 mg tablet Take 1 tablet by mouth daily at bedtime. - carbidopa-levodopa CR (SINEMET CR) 50-200 mg per tablet TAKE 1 TABLET BY MOUTH in Morning and before bedtime as instructed. - gabapentin (NEURONTIN) 100 mg capsule Take 1 capsule by mouth two times a day for 180 days. - LORazepam (ATIVAN) 0.5 mg Take 0.5 mg by mouth as needed. - Cholecalciferol, Vitamin D3, 50 mcg (2,000 unit) cap Take 2,000 Units by mouth once daily. - diclofenac sodium (VOLTAREN) 1 % topical gel APPLY 2 GRAMS TO AFFECTED AREA 4 TIMES A DAY Problem List As Of Date 07/14/2024 Noted Resolved Essential hypertension, benign [I10] 04/04/2007 Hypothyroidism [E03.9] 04/04/2007 COMMON MIGRAINE [346.1] 04/04/2007 Anxiety state [F41.1] 04/04/2007 Mixed hyperlipidemia [E78.2] 10/26/2009 Pes anserinus bursitis of left knee [M70.52] 10/29/2013 Left knee pain [M25.562] 10/29/2013 Cervical spondylosis without myelopathy [M47.81*05/18/2020 Parkinson disease (HCC) [G20.A1] 07/18/2020 Spinal stenosis of cervical region [M48.02] 07/18/2020 Intracranial meningioma (HCC) [D32.0] 07/18/2020 Palpitations [R00.2] 10/03/2020 Shortness of breath [R06.02] 10/03/2020 Tachycardia [R00.0] 06/12/2021 Neck pain [M54.2] 04/09/2023 Neck muscle weakness [M53.82] 04/09/2023 Major depressive disorder, single episode, nila*06/05/2024 Encounter Status:Closed by THEA LUCIANO on 07/14/24 [facility] CT BRAIN WO IVCONon 07-14-20 CT BRAIN WO IVCON * * *Final Report* * * DATE OF EXAM: Jul 14 2024 3:11PM [facility] [place] BRAIN [place] IVCON / PROCEDURE REASON: Head trauma, moderate-severe * * * * Physician Interpretation * * * * EXAMINATION: CT BRAIN WO IVCON, CT CERVICAL SPINE WO IVCON CLINICAL HISTORY: Fall. TECHNIQUE: Serial axial images without IV contrast were obtained from the vertex to the cervicothoracic junction with sagittal and coronal planar reconstructions. CT Radiation dose: Integrated Dose-Length Product (DLP) for this visit = 961 mGy*cm CT Dose Reduction Employed: Automated exposure control(AEC) and iterative recon COMPARISON: MR dated 06/16/2024. FINDINGS: Brain: There is no abnormal extra-axial fluid, intracranial hemorrhage, mass, mass effect, or midline shift. The ventricular system is unremarkable. Cisterns are patent. Focal left frontal white matter hypoattenuation corresponding to prior MR. Otoole-white differentiation is maintained. Paranasal sinuses and mastoid air cells are unopacified. Calvarium is intact. Large right parietal subgaleal hematoma. Cervical spine: There is no prevertebral soft tissue edema. The atlantooccipital and atlantoaxial articulations are maintained. Minimal anterolisthesis C4 upon C5 Vertebral body heights are maintained. Also loss of disc height most pronounced C5-C6 with adjacent endplate remodeling. Facet alignment is maintained. The posterior elements are intact. IMPRESSION: 1. Large scalp hematoma without acute intracranial findings. 2. No acute fracture of the cervical spine. 3. Chronic findings as detailed. Tenant Selector: [facility] CENTERLane Transcribe Date/Time: Jul 14 2024 3:33P Dictated by : NELLIE KHALIL MD This examination was interpreted and the report reviewed and electronically signed by: NELLIE KHALIL MD on Jul 14 2024 4:14PM EST [id number] [facility] CT CERVICAL SPINE WO IVCONon 07-14-2024 CT CERVICAL SPINE WO IVCON * * *Final Report* * * DATE OF EXAM: Jul 14 2024 3:11PM [facility] [place] CERVICAL SPINE WO IVCON / PROCEDURE REASON: Spine fracture, cervical, traumatic * * * * Physician Interpretation * * * * EXAMINATION: CT BRAIN WO IVCON, CT CERVICAL SPINE WO IVCON CLINICAL HISTORY: Fall. TECHNIQUE: Serial axial images without IV contrast were obtained from the vertex to the cervicothoracic junction with sagittal and coronal planar reconstructions. CT Radiation dose: Integrated Dose-Length Product (DLP) for this visit = 961 mGy*cm CT Dose Reduction Employed: Automated exposure control(AEC) and iterative recon COMPARISON: MR dated 06/16/2024. FINDINGS: Brain: There is no abnormal extra-axial fluid, intracranial hemorrhage, mass, mass effect, or midline shift. The ventricular system is unremarkable. Cisterns are patent. Focal left frontal white matter hypoattenuation corresponding to prior MR. Otoole-white differentiation is maintained. Paranasal sinuses and mastoid air cells are unopacified. Calvarium is intact. Large right parietal subgaleal hematoma. Cervical spine: There is no prevertebral soft tissue edema. The atlantooccipital and atlantoaxial articulations are maintained. Minimal anterolisthesis C4 upon C5 Vertebral body heights are maintained. Also loss of disc height most pronounced C5-C6 with adjacent endplate remodeling. Facet alignment is maintained. The posterior elements are intact. IMPRESSION: 1. Large scalp hematoma without acute intracranial findings. 2. No acute fracture of the cervical spine. 3. Chronic findings as detailed. Tenant Selector: [employer] Transcribe Date/Time: Jul 14 2024 3:33P Dictated by : NELLIE KHALIL MD This examination was interpreted and the report reviewed and electronically signed by: NELLIE KHALIL MD on Jul 14 2024 4:14PM EST [id number] Normal [facility] Comprehensive metabolic 2000 panelon 07-14-2024 Albumin [Mass/Vol] 4.3 g/dL Normal 3.9-4.9 [facility] Comment on above: Order Comment: Musa badillo Type: BLOOD SPECIMENOrdering Facility: [facility] Address: [address] [place] [address] Performed By: #### 2 4323-8, , [id number], 3016-3 ####[facility] LABORATORYCLIA [id number] [address] OF [facility] ALP [Catalytic activity/Vol] 82 U/L Normal 34-123 [facility] Comment on above: Order Comment: Musa badillo Type: BLOOD SPECIMENOrdering Facility: [facility] Address: [address] [place] [address] Performed By: #### 2 4323-8, 73723-6, [id number], 3016-3 ####[facility] LABORATORYCLIA [id number] [address] OF [facility] ALT [Catalytic activity/Vol] U/L Low 7-38 [facility] Comment on above: Order Comment: Musa badillo Type: BLOOD SPECIMENOrdering Facility: [facility] Address: [address] [place] [address] Performed By: #### 2 4323-8, 51269-4, [id number], 3016-3 ####[facility] LABORATORYCLIA [id number] [place] [address] [place] Anion gap [Moles/Vol] 11 mmol/L Normal 8-15 [facility] Comment on above: Order Comment: Speci men Type: BLOOD SPECIMENOrdering Facility: [facility] Address: [address] [place] [address] [place] [address] Performed By: #### 2 4323-8, 48968-8, [id number], 3016-3 ####[facility] LABORATORYCLIA [id number] [place] [address] [place] AST [Catalytic activity/Vol] 11 U/L Low 13-35 [facility] Comment on above: Order Comment: Speci men Type: BLOOD SPECIMENOrdering Facility: [facility] Address: [address] [place] [address] Performed By: #### 2 4323-8, 48848-6, [id number], 3016-3 ####[facility] LABORATORYCLIA [id number] [place] [address] [place] Bilirubin [Mass/Vol] 0.6 mg/dL Normal 0.2-1.3 [facility] Comment on above: Order Comment: Speci men Type: BLOOD SPECIMENOrdering Facility: [facility] Address: [address] [place] [address] Performed By: #### 2 4323-8, , [id number], 3016-3 ####[facility] LABORATORYCLIA [id number] [place] [address] [place] Calcium [Mass/Vol] 8.9 mg/dL Normal 8.5-10.2 [facility] Comment on above: Order Comment: Speci men Type: BLOOD SPECIMENOrdering Facility: [facility] Address: [address] [place] [address] Performed By: #### 2 4323-8, 51523-3, [id number], 3016-3 ####[facility] LABORATORYCLIA [id number] [place] [address] [place] Chloride [Moles/Vol] 103 mmol/L Normal 98-107 [facility] Comment on above: Order Comment: Speci men Type: BLOOD SPECIMENOrdering Facility: [facility] Address: [address] [place], [place] [address] Performed By: #### 2 4323-8, 15671-6, [id number], 3016-3 ####[facility] LABORATORYCLIA [id number] [address] CO2 [Moles/Vol] 25 mmol/L Normal 22-30 [facility] Comment on above: Order Comment: Speci men Type: BLOOD SPECIMENOrdering Facility: [facility] Address: [address] [place] [address] Performed By: #### 2 4323-8, 83475-8, [id number], 3016-3 ####[facility] LABORATORYCLIA [id number] [address] OF [facility] Creatinine [Mass/Vol] 0.92 mg/dL Normal 0.58-0.96 [facility] Comment on above: Order Comment: Speci men Type: BLOOD SPECIMENOrdering Facility: [facility] Address: [address] [place] [address] Performed By: #### 2 4323-8, 39253-1, [id number], 3016-3 ####[facility] LABORATORYCLIA [id number] [address] Creatinine and Glomerular filtration rate.predicted panel (S/P/Bld) 64 mL/min/1.73m??? Normal >=60 [facility] Comment on above: Order Comment: Speci men Type: BLOOD SPECIMENOrdering Facility: [facility] Address: [address] [place] [address] Result Comment: Afia mated Glomerular Filtration Rate (eGFR) is calculated using the 2020 CKD-EPI creatinine equation. This equation utilizes serum creatinine, sex, and age as parameters. The creatinine assay has traceable calibration to isotope dilution-mass spectrometry. Refer to KDIGO guidelines for clinical interpretation. In patients with unstable renal function, e.g. those with acute kidney injury, the eGFR may not accurately reflect actual GFR. Performed By: #### 2 4323-8, 25500-7, [id number], 3016-3 ####[facility] LABORATORYCLIA [id number] [place] [address] [place] Glucose [Mass/Vol] 90 mg/dL Normal 74-99 [facility] Comment on above: Order Comment: Musa badillo Type: BLOOD SPECIMENOrdering Facility: [facility] Address: [address] [place] [address] Result Comment: The [place] Diabetes Association (ADA) provides guidance for cutoff values for fasting glucose and random glucose. The ADA defines fasting as no caloric intake for at least 8 hours. Fasting plasma glucose results between 100 to 125 mg/dL indicate increased risk for diabetes (prediabetes). Fasting plasma glucose results greater than or equal to 126 mg/dL meet the criteria for diagnosis of diabetes. In the absence of unequivocal hyperglycemia, results should be confirmed by repeat testing. In a patient with classic symptoms of hyperglycemia or hyperglycemic crisis, random plasma glucose results greater than or equal to 200 mg/dL meet the criteria for diagnosis of diabetes. Reference: Standards of Medical Care in Diabetes 2016, [place] Diabetes Association. Diabetes Care. 2016.39(Suppl 1). Performed By: #### 2 4323-8, 57778-0, [id number], 3016-3 ####[facility] LABORATORYCLIA [id number] [place] [address] [place] Potassium [Moles/Vol] 4.3 mmol/L Normal 3.7-5.1 [facility] Comment on above: Order Comment: Musa badillo Type: BLOOD SPECIMENOrdering Facility: [facility] Address: [address] [place] [address] Performed By: #### 2 4323-8, 61083-2, [id number], 3016-3 ####[facility] LABORATORYCLIA [id number] [place] [id number] [place] Protein [Mass/Vol] 6.9 g/dL Normal 6.3-8.0 [facility] Comment on above: Order Comment: Musa badillo Type: BLOOD SPECIMENOrdering Facility: [facility] Address: [address] [place] [address] Performed By: #### 2 4323-8, 47242-9, PEG0476, 3016-3 ####[facility] LABORATORYCLIA [id number] [place] [id number] [place] Sodium [Moles/Vol] 139 mmol/L Normal 136-144 [facility] Comment on above: Order Comment: Speci men Type: BLOOD SPECIMENOrdering Facility: [facility] Address: [address] [place] [address] Performed By: #### 2 4323-8, 24502-4, [id number], 3016-3 ####[facility] LABORATORYCLIA [id number] [place] [address] [place] Urea nitrogen [Mass/Vol] 24 mg/dL High 7-21 [facility] Comment on above: Order Comment: Speci men Type: BLOOD SPECIMENOrdering Facility: [facility] Address: [address] [place], [place] [address] Performed By: #### 2 4323-8, 44483-2, [id number], 3016-3 ####[facility] LABORATORYCLIA [id number] [place] [address] [facility] ECG COMPLETEon 07-14-2024 ECG COMPLETE Ventricular Rate : 5 7 BPM Atrial Rate : 57 BPM P-R Interval : 172 ms QRS Duration : 86 ms Q-T Interval : 436 ms QTC Calculation(Bazett) : 424 ms Calculated P Livingston : 42 degrees Calculated R [place] : -35 degrees Calculated T Livingston : 30 degrees POOR DATA QUALITY, INTERPRETATION MAY BE ADVERSELY AFFECTED SINUS BRADYCARDIA LEFT AXIS DEVIATION ABNORMAL ECG no stemi Confirmed by KELLIE HENDERSON DO ([id number]), proposal editor JAMILA WARD ([id number]) on 07/15/2024 9:40:11 AM NAME : LOU OLIVER PID : [id number] : 1945 Gender : Female Race : ORD : [id number] Procedure Date : Jul 14 2024 14:34:04 Edit Date : Jul 15 2024 09:40:14 Diagnosis: POOR DATA QUALITY, INTERPRETATION MAY BE ADVERSELY AFFECTED SINUS BRADYCARDIA LEFT AXIS DEVIATION ABNORMAL ECG no stemi Confirmed by KELLIE HENDERSON DO ([id number]), proposal editor JAMILA WARD ([id number]) on 07/15/2024 9:40:11 AM Test Reason : Chest Pain Location : 1 : ER ED Overread By : KELLIE HENDERSON DO Edited By : JAMILA WARD Referred By : , Acquired by : rd, [facility] ED NOTEon 07-14-2024 ED NOTE HNO ID: [id number] Author: JIMENA CAT, TUYET Service: Nursing Author Type: Registered Nurse Type: ED Notes Filed: 07/14/2024 14:05 Note Text: Pt presents to ED via EMS LST for c/o fall, pt was in the office building behind [facility] AND fell getting out of her car. Pt DID hit her head. Large posterior hematoma noted to pt skull. Pt rates pain 8/10. [facility] ED NOTE HNO ID: [id number] Author: CYNDEE WELCH, Anna Service: ? Author Type: [employer] Type: ED Notes Filed: 07/14/2024 14:01 Note Text: Bed: ED-02 Expected date: 07/14/24 Expected time: 1:53 PM Means of arrival: [place] [facility] Comments: fall [facility] ED PROV NOTEon 07-14-2024 ED PROV NOTE HNO ID: [id number] Author: KELLIE HENDERSON DO Service: Emergency Medicine Author Type: Physician Type: ED Provider Notes Filed: 07/14/2024 19:21 Note Text: ED Provider Note Patient Name: Lou Oliver : 1945 SERVICE DATE: 07/14/24 History Patient presents with: Fall History provided by: Patient and relative 79-year-old female with history of hypertension, hypothyroidism, Parkinson disease presents for evaluation after a fall. Patient was getting out of the car heading into see her neurologist today. Daughter reports she turned around and patient was on the ground. Patient believes that she passed out. Reports feeling lightheadedness just prior to the fall. She struck the back of her head and is complaining of a headache. No anticoagulation. No neck pain or other injuries. No preemptive chest pain or dyspnea. Patient reports that she has been having lightheadedness for a few weeks now with intermittent syncope. Reports that her blood pressure has been as low as 70 systolic at home. PAST MEDICAL HISTORY Diagnosis Date Diverticulosis of colon (without mention of hemorrhage) Essential hypertension, benign 04/04/2007 Mental disorder Migraine without aura 04/04/2007 Parkinson disease (HCC) Unspecified hypothyroidism 04/04/2007 PAST SURGICAL HISTORY Procedure Laterality Date DELIVERY ONLY , low cervical x2 COLONOSCOPY FLX DX W/COLLJ SPEC WHEN PFRMD 1994 Colonoscopy COLONOSCOPY FLX DX W/COLLJ SPEC WHEN PFRMD 04/07/2012 Colonoscopy COLONOSCOPY FLX DX W/COLLJ SPEC WHEN PFRMD 06/17/2019 Colonoscopy DILATION AND CURETTAGE DXAND/THER NONOBSTETRIC 09/1982 [facility]/29/2023 PAST SURGICAL HISTORY OF 02/1996 EMB TONSILLECTOMY AND ADENOIDECTOMY T/A (under age 13 years) FAMILY HISTORY Problem Relation Age of Onset Hypertension Mother Arthritis Mother Heart disease Mother Diabetes Father adult onset Emphysema Father Cancer Father lung Psychiatry Maternal Grandmother Ischemic Heart Disease Maternal Grandfather Diabetes Paternal Grandmother Asthma Daughter Allergic Rhinitis Daughter Colon Cancer No Family History Social History Tobacco Use Smoking status: Never Smokeless tobacco: Never Tobacco comments: Father smoked in childhood home. 2 spouses were smokers. Vaping Use Vaping status: Never Used Substance and Sexual Activity Alcohol use: No Drug use: No Sexual activity: Yes Partners: Male ALLERGIES Allergen Reactions Sulfa (Sulfonamide * Hives Review of Systems Neurological: Positive for syncope, light-headedness and headaches. Physical Exam Vitals [07/14/24 1406] BP Pulse Temp Temp src Resp SpO2 Weight Height 127/87 71 37.1 ?C (98.7 ?F) Oral 18 98 % -- -- Physical Exam Vitals and nursing note reviewed. Constitutional: General: She is not in acute distress. Appearance: Normal appearance. She is not toxic-appearing or diaphoretic. HENT: Head: Normocephalic. Contusion present. No raccoon eyes or Ortega's sign. Right Ear: No hemotympanum. Left Ear: No hemotympanum. Mouth/Throat: Mouth: Mucous membranes are moist. Eyes: Extraocular Movements: Extraocular movements intact. Conjunctiva/sclera: Conjunctivae normal. Pupils: Pupils are equal, round, and reactive to light. Cardiovascular: Rate and Rhythm: Normal rate and regular rhythm. Pulmonary: Effort: Pulmonary effort is normal. Breath sounds: Normal breath sounds. Musculoskeletal: Cervical back: Normal range of motion. No deformity, tenderness or bony tenderness. Skin: General: Skin is warm. Neurological: General: No focal deficit present. Mental Status: She is alert and oriented to person, place, and time. GCS: GCS eye subscore is 4. GCS verbal subscore is 5. GCS motor subscore is 6. Psychiatric: Mood and Affect: Mood normal. Speech: Speech normal. Diagnostic Testing ED Labs Ordered and Reviewed COMPLETE BLOOD COUNT AND DIFFERENTIAL - Abnormal; Notable for the following components: Result Value Ref Range RBC 3.46 (*) 3.90 - 5.20 m/uL Hemoglobin 10.7 (*) 11.5 - 15.5 g/dL Hematocrit 32.1 (*) 36.0 - 46.0 % All other components within normal limits COMPREHENSIVE METABOLIC PANEL - Abnormal; Notable for the following components: AST 11 (*) 13 - 35 U/L ALT <5 (*) 7 - 38 U/L BUN 24 (*) 7 - 21 mg/dL All other components within normal limits MAGNESIUM - Normal HIGH SENSITIVITY TROPONIN T (INITIAL) - Normal THYROID STIMULATING HORMONE - Normal HIGH SENSITIVITY TROPONIN T (SECOND) - Normal Procedures ED Course / Clinical Impression ED Course as of 07/14/24 1715 Loraine Wilson's Documentation SatJul 14, 20[address] Rehman -- admit under Keven Yoon' Documentation SatJul 14, 2024 1437 EKG completed at 1434 Sinus bradycardia with left axis deviation Ventricular rate of 57, normal (more content not included)... Normal [facility] HIGH SENSITIVITY TROPONIN T (INITIAL)on 07-14-2024 Troponin T.cardiac High sensitivity method [Mass/Vol] 11 ng/L Normal <12 [facility] Comment on above: Order Comment: Musa badillo Type: BLOOD SPECIMENOrdering Facility: [facility] Address: [address] [place] [address] Performed By: #### 2 4323-8, 17271-7, [id number], 3016-3 ####[facility] LABORATORYCLIA [id number] [place] [id number] [place] HIGH SENSITIVITY TROPONIN T (SECOND)on 07-14-2024 Troponin T.cardiac High sensitivity method [Mass/Vol] 10 ng/L Normal <12 [facility] Comment on above: Order Comment: Musa badillo Type: BLOOD SPECIMENOrdering Facility: [facility] Address: [address], [place] [address] Performed By: #### L [id number] ####[facility] LABORATORYCLIA [id number] [place] [address] [place] [facility] HISTORY PHYSICALon HISTORY PHYSICAL HNO ID: [id number] Author: ALEXA WATERS MD Service: Hospital Medicine Author Type: Nurse Practitioner Type: H&P Filed: 07/15/2024 06:32 Note Text: Attestation signed by Alexa Waters MD at 07/15/2024 6:32 AM I reviewed the plan of care and reviewed the note. Plan of care discussed with the ASSEMBLING FABRICATOR in detail and I agree with it. Alexa Waters MD DEPARTMENT OF HOSPITAL MEDICINE HISTORY AND PHYSICAL EXAM SERVICE DATE: 07/14/2024 SERVICE TIME: 6:27 PM Primary Care Physician: Marvel Rizzo MD NIGHT AND WEEKEND COVERAGE: [facility] COVERAGE: Days: [phone], please page attending physician. Nights: [phone], please page [place] [facility] Night coverage pager [phone]. Subjective CHIEF COMPLAINT: Syncope HPI: This is a 79 year old female with a PMH of Parkinson's disease, intracranial meningioma, Migraines, hypothyroidism, GERD, HTN, and depression presents to ED after fall getting out of the car going to her neurology appointment. States she may suffered syncopal event. Reports multiple episodes of syncope and presyncope ongoing for the past several months. Reports that she often feels lightheadedness and will often fall. Reports today she struck the back of her head on the concrete. Not currently on any anticoagulation. CT of the head showed scalp hematoma. Daughter reports that at home patient's blood pressure has been low of 70 systolic. States that she has been started on fludrocortisone due to blood pressure issues in the setting of Sinemet use. In the ED labs were completed. Imaging was significant for large scalp hematoma without acute intracranial findings. C-spine CT was negative for acute fractures. Given patient's ongoing symptoms of presyncope/syncope she is admitted under hospital service for admission. Seen and examined at the bedside. BP stable at this time. Discussed plans for admission and neurology consult. PAST MEDICAL HISTORY Diagnosis Date Diverticulosis of colon (without mention of hemorrhage) Essential hypertension, benign 04/04/2007 Mental disorder Migraine without aura 04/04/2007 Parkinson disease (HCC) Unspecified hypothyroidism 04/04/2007 PAST SURGICAL HISTORY Procedure Laterality Date DELIVERY ONLY , low cervical x2 COLONOSCOPY FLX DX W/COLLJ SPEC WHEN PFRMD 1994 Colonoscopy COLONOSCOPY FLX DX W/COLLJ SPEC WHEN PFRMD 04/07/2012 Colonoscopy COLONOSCOPY FLX DX W/COLLJ SPEC WHEN PFRMD 06/17/2019 Colonoscopy DILATION AND CURETTAGE DXAND/THER NONOBSTETRIC 09/1982 Dilation AND curettage EGD W/O [facility] SPEC VARICIES INJ 11/29/2023 PAST SURGICAL HISTORY OF 02/1996 EMB TONSILLECTOMY AND ADENOIDECTOMY T/A (under age 13 years) FAMILY HISTORY Problem Relation Age of Onset Hypertension Mother Arthritis Mother Heart disease Mother Diabetes Father adult onset Emphysema Father Cancer Father lung Psychiatry Maternal Grandmother Ischemic Heart Disease Maternal Grandfather Diabetes Paternal Grandmother Asthma Daughter Allergic Rhinitis Daughter Colon Cancer No Family History Social History Tobacco Use Smoking status: Never Smokeless tobacco: Never Tobacco comments: Father smoked in childhood home. 2 spouses were smokers. Vaping Use Vaping status: Never Used Substance Use Topics Alcohol use: No Drug use: No PRIOR TO ADMISSION MEDICATIONS: (Not in a hospital admission) ALLERGIES Allergen Reactions Sulfa (Sulfonamide * Hives REVIEW OF SYSTEM: PAIN ASSESSMENT: Pain to scalp GENERAL: No weight loss, malaise or fevers HEENT: Negative for frequent or significant headaches, No changes in hearing or vision, no nose bleeds or other nasal problems NECK: Negative for lumps, goiter, pain and significant neck swelling RESPIRATORY: Negative for cough, hemoptysis, wheezing, COPD, dyspnea or shortness of breath CARDIOVASCULAR: Negative for chest pain, leg swelling, hypertension, CHF or palpitations MUSCULOSKELETAL: Negative for joint pain or swelling, back pain or muscle pain SKIN: Negative for lesions, rash, and itching PSYCH: Negative for sleep disturbance, mood disorder and recent psychosocial stressors NEURO: SEE HPI Objective PHYSICAL EXAM: BP 138/59 Pulse 72 Temp (Src) 98.7 (Oral) Resp 20 SpO2 93% Physical Exam Performed: Physical Exam Vitals reviewed. Constitutional: General: She is not in acute distress. Appearance: She is normal weight. She is not toxic-appearing. HENT: Head: Normocephalic and atraumatic. Nose: Nose normal. Mouth/Throat: Mouth: Mucous membranes are moist. Pharynx: Oropharynx is clear. Eyes: Pupils: Pupils are equal, round, and reactive to light. Cardiovascular: Rate and Rhythm: Normal rate and regular rhythm. Pulses: Normal pulses. Heart sounds: (more content not included)... Normal [facility] Magnesium SerPl-mCncon 07-14 Magnesium [Mass/Vol] 2.1 mg/dL Normal 1.7-2.3 [facility] Comment on above: Order Comment: Musa badillo Type: BLOOD SPECIMENOrdering Facility: [facility] Address: [address] [place] [address] Performed By: #### 2 4323-8, 23317-5, [id number], 3016-3 ####[facility]ORATORYCLIA [id number] [address] [place] TSH SerPl-aCncon 07-14-2024 TSH Qn 1.710 m[IU]/L Normal 0.270-4.200 [facility] Comment on above: Order Comment: Musa badillo Type: BLOOD SPECIMENOrdering Facility: [facility] Address: [address] [place] [address] Performed By: #### 2 4323-8, 10765-7, [id number], 3016-3 ####[facility] LABORATORYCLIA [id number] [place] [address] [place] XR CHEST 1V FRONTAL PORTon 0 07-14-2024 XR CHEST 1V FRONTAL PORT * * *Final Report* * * DATE OF EXAM: Jul 14 2024 2:48PM MDX 5376 - XR CHEST 1V FRONTAL PORT / PROCEDURE REASON: Chest pain * * * * Physician Interpretation * * * * EXAMINATION: CHEST RADIOGRAPH (PORTABLE SINGLE VIEW AP) Exam Date/Time: 07/14/2024 2:48 PM CLINICAL HISTORY: Chest pain MQ: XCPR_5 Comparison: None RESULT: Lines, tubes, and devices: None. Lungs and pleura: No focal consolidation. No discernible pleural effusion or pneumothorax. Cardiomediastinal silhouette: Normal cardiomediastinal silhouette. Other: Degenerative changes. IMPRESSION: No acute radiographic abnormality Tenant Selector: DOMENIC Transcribe Date/Time: Jul 14 2024 2:52P Dictated by : DOMINICK COX MD This examination was interpreted and the report reviewed and electronically signed by: DOMINICK COX MD on Jul 14 2024 2:52PM EST [id number] [facility] MR Brain WO and W contrast I Von 06-16-2024 IMPRESSION: Left frontal convexity meningioma appears similar to the previous study and overall slightly decreased in size compared to the exam from one year ago. No new or progressive neoplasm. Stable signal change in the left frontal operculum. Tenant Selector: DOMENIC Transcribe Date/Time: Jun 16 2024 11:25A Dictated by : DEBRA ALEMAN MD This examination was interpreted and the report reviewed and electronically signed by: DEBRA ALEMAN MD on Jun 16 2024 12:01PM EST DIVISION OF RADIOLOGY * * *Final Report* * * DATE OF EXAM: Jun 16 2024 10:35AM [facility] 0295 - MRI BRAIN WO/W IVCON / PROCEDURE REASON: Meningioma (HCC) * * * * Physician Interpretation * * * * EXAMINATION: MRI BRAIN WO/W IVCON CLINICAL HISTORY: Meningioma (HCC) TECHNIQUE: Routine brain MRI protocol without and with contrast including diffusion images. MQ: MRBWOW_2 Contrast: 12 mL Dotarem IV COMPARISON: 11/06/2023, 05/02/2023 RESULT: Acute Change: There is no evidence of restricted diffusion to suggest an acute infarct. Hemorrhage: Punctate susceptibility artifact subcortical left temporal convexity from a remote microhemorrhage versus tiny cavernoma, with minimal surrounding gliosis, unchanged. Mass Lesion/ Mass Effect: Extra-axial dural based mass overlying the left frontal operculum is appears nearly stable in size and configuration compared to 11/06/2023 and when compared to 05/02/2023 using coregistration software for direct comparison it appears to have very slightly decreased in size. Current measurements are 2.9 x 1.6 cm in maximum axial dimensions by 2.5 cm craniocaudal. Stable T2 and FLAIR hyperintense signal in the left frontal operculum from gliosis or residual edema. Chronic Change: The white matter is within normal limits of signal intensity for age. Parenchyma: No significant volume loss for age. The brain parenchyma is otherwise within normal limits of signal intensity and morphology. Ventricles: Normal caliber and morphology. Skull Base: Hypothalamic and pituitary region are grossly normal. Craniocervical junction is normal. No significant marrow replacement process. Vasculature: Right frontal opercular developmental venous anomaly. Major intracranial arterial structures, and dural venous sinuses show typical flow void, suggesting patency by spin echo criteria. Other: Mucosal thickening left ethmoid sinuses. The orbits and extracranial soft tissues are unremarkable. DIVISION OF RADIOLOGY Provider, [facility] - 06/16/2024 * * *Final Report* * * DATE OF EXAM: Jun 16 2024 10:35AM [facility] 0295 - MRI BRAIN WO/W IVCON / PROCEDURE REASON: Meningioma (HCC) * * * * Physician Interpretation * * * * EXAMINATION: MRI BRAIN WO/W IVCON CLINICAL HISTORY: Meningioma (HCC) TECHNIQUE: Routine brain MRI protocol without and with contrast including diffusion images. MQ: MRBWOW_2 Contrast: 12 mL Dotarem IV COMPARISON: 11/06/2023, 05/02/2023 RESULT: Acute Change: There is no evidence of restricted diffusion to suggest an acute infarct. Hemorrhage: Punctate susceptibility artifact subcortical left temporal convexity from a remote microhemorrhage versus tiny cavernoma, with minimal surrounding gliosis, unchanged. Mass Lesion/ Mass Effect: Extra-axial dural based mass overlying the left frontal operculum is appears nearly stable in size and configuration compared to 11/06/2023 and when compared to 05/02/2023 using coregistration software for direct comparison it appears to have very slightly decreased in size. Current measurements are 2.9 x 1.6 cm in maximum axial dimensions by 2.5 cm craniocaudal. Stable T2 and FLAIR hyperintense signal in the left frontal operculum from gliosis or residual edema. Chronic Change: The white matter is within normal limits of signal intensity for age. Parenchyma: No significant volume loss for age. The brain parenchyma is otherwise within normal limits of signal intensity and morphology. Ventricles: Normal caliber and morphology. Skull Base: Hypothalamic and pituitary region are grossly normal. Craniocervical junction is normal. No significant marrow replacement process. Vasculature: Right frontal opercular developmental venous anomaly. Major intracranial arterial structures, and dural venous sinuses show typical flow void, suggesting patency by spin echo criteria. Other: Mucosal thickening left ethmoid sinuses. The orbits and extracranial soft tissues are unremarkable. IMPRESSION IMPRESSION: Left frontal convexity meningioma appears similar to the previous study and overall slightly decreased in size compared to the exam from one year ago. No new or progressive neoplasm. Stable signal change in the left frontal operculum. Tenant Selector: DOMENIC Transcribe Date/Time: Jun 16 2024 11:25A Dictated by : DEBRA ALEMAN MD This examination was interpreted and the report reviewed and electronically signed by: DEBRA ALEMAN MD on Jun 16 2024 12:01PM EST [facility] Radiology Study observation (narrative) [facility] MR Brain WO and W contrast I VOrdered By: [facility] Provider on 06-16-2024 [facility] MRI BRAIN WO/W IVCONon 06-16 MRI BRAIN WO/W IVCON * * *Final Report* * * DATE OF EXAM: Jun 16 2024 10:35AM [facility] 0295 - MRI BRAIN WO/W IVCON / PROCEDURE REASON: Meningioma (HCC) * * * * Physician Interpretation * * * * EXAMINATION: MRI BRAIN WO/W IVCON CLINICAL HISTORY: Meningioma (HCC) TECHNIQUE: Routine brain MRI protocol without and with contrast including diffusion images. MQ: MRBWOW_2 Contrast: 12 mL Dotarem IV COMPARISON: 11/06/2023, 05/02/2023 RESULT: Acute Change: There is no evidence of restricted diffusion to suggest an acute infarct. Hemorrhage: Punctate susceptibility artifact subcortical left temporal convexity from a remote microhemorrhage versus tiny cavernoma, with minimal surrounding gliosis, unchanged. Mass Lesion/ Mass Effect: Extra-axial dural based mass overlying the left frontal operculum is appears nearly stable in size and configuration compared to 11/06/2023 and when compared to 05/02/2023 using coregistration software for direct comparison it appears to have very slightly decreased in size. Current measurements are 2.9 x 1.6 cm in maximum axial dimensions by 2.5 cm craniocaudal. Stable T2 and FLAIR hyperintense signal in the left frontal operculum from gliosis or residual edema. Chronic Change: The white matter is within normal limits of signal intensity for age. Parenchyma: No significant volume loss for age. The brain parenchyma is otherwise within normal limits of signal intensity and morphology. Ventricles: Normal caliber and morphology. Skull Base: Hypothalamic and pituitary region are grossly normal. Craniocervical junction is normal. No significant marrow replacement process. Vasculature: Right frontal opercular developmental venous anomaly. Major intracranial arterial structures, and dural venous sinuses show typical flow void, suggesting patency by spin echo criteria. Other: Mucosal thickening left ethmoid sinuses. The orbits and extracranial soft tissues are unremarkable. IMPRESSION: Left frontal convexity meningioma appears similar to the previous study and overall slightly decreased in size compared to the exam from one year ago. No new or progressive neoplasm. Stable signal change in the left frontal operculum. Tenant Selector: DOMENIC Transcribe Date/Time: Jun 16 2024 11:25A Dictated by : DEBRA ALEMAN MD This examination was interpreted and the report reviewed and electronically signed by: DEBRA ALEMAN MD on Jun 16 2024 12:01PM EST [id number] Normal [facility] CNOVon 06-11-2024 CNOV Office Visit (SPAGWO ) LOU OLIVER ([id number]) 1945 F Date Time Provider Department 06/11/24 1:30 PM DIAZJAK During your visit today, we recorded the following information about you: Pulse Respiration Blood pressure Normal [facility] CNOVon 06-05-2024 CN Office Visit (INTMWS ) LOU OLIVER ([id number]) 1945 F Date Time Provider Department 06/05/24 3:20 PM AMRVEL RIZZO INTMWS During your visit today, we recorded the following information about you: Pulse Blood pressure Weight 106/minute 98/70 57.4 kg Marvel Rizzo MD 06/05/2024 4:20 PM Signed Lou Grahamll is a 79 year old female here for a Medicare wellness visit. Medicare Health Risk Assessment General Health Good Exercise: Minutes/Day 40 min Exercise: Days/Week 5 days Alcohol: Daily Use Monthly or less Alcohol: Drinks/Day Patient does not drink Alcohol: 6 or more drinks Never Feel off balance Yes Concerns: Teeth/Dentures No Concerns: Sexual function No Troubled by feelings Anxious Frequency: Eating healthy diet More than half the days ADLs requiring help Housework; Driving Safety precautions in home/vehicle Yes Smoke, vape, chews tobacco No Difficulty hearing No Difficulty seeing No Current Providers Specialists: I have reviewed specialist-related care of the patient in the medical record. Medical/Family history review Reviewed and updated problem list, medical/surgical/famil y/social history, medications, and allergies. Opioid use review Opioid Medications (last 90 days) No data to display Anxiety/Depression screening PHQ-9 Score: 12 (Moderate Depression) Recommendation: medication management Cognitive screening Mini Cog Score: 5 Cognitive screening reviewed and No further action needed (score 3-5). Functional Observation Was the patient's Timed Up AND Go test unsteady or ? 12 seconds? No Advance Care Planning Surrogate decision maker and/or advance care plan documented Measurements BP 98/70 (BP Site: Left Arm) Pulse 106 Wt 57.4 kg (126 lb 9.6 oz) SpO2 97% BMI 21.73 kg/m? Vision Screening: Follows with optometry/ophthalmolog y Assessment/Plan Medicare annual wellness visit, subsequent (Z00.00) - Counseled on healthy diet and regular exercise - Fall avoidance information provided - Personalized prevention plan providedReason for Visit Patient presents with: Recheck: Panic attack, see phone note Lou Oliver is a 79 year old female who presents here today for Above Complaints.. Health Maintenance Depression Screening BP Controlled (<130/80) DTaP,Tdap,Td Vaccine(1 - Tdap) RSV Vaccine(1 - 1-dose 60+ series) Shingrix Vaccine(2 of 3) Covid-19 Vaccine( season) Advance Directive Discussion HPI Lou is a very pleasant 79-year-old woman with a past medical history of migraine without aura, Parkinson's disease, intracranial meningioma, essential hypertension, mixed hyperlipidemia, palpitations, hypothyroidism, anxiety state. She was seen in the past month for a rash in the urgent care, was also followed up by neurology Dr. Era Mitchell for orthostatic hypotension. She was started on florinef 0.1 mgs and she drinks more fluids and that helps her. She also has been having the wearing off time, happen to her like clock work. No trouble walking. More issues with balance, Has been having a little more anxiety and some anxiety attacks. No problem-specific Assessment AND Plan notes found for this encounter. PAST MEDICAL HISTORY No date: Diverticulosis of colon (without mention of hemorrhage) 04/04/2007: Essential hypertension, benign No date: Mental disorder 04/04/2007: Migraine without aura No date: Parkinson disease (HCC) 04/04/2007: Unspecified hypothyroidism PAST SURGICAL HISTORY : DELIVERY ONLY Comment: , low cervical x2 1994: COLONOSCOPY FLX DX W/COLLJ SPEC WHEN PFRMD Comment: Colonoscopy 04/07/2012: COLONOSCOPY FLX DX W/COLLJ SPEC WHEN PFRMD Comment: Colonoscopy 06/17/2019: COLONOSCOPY FLX DX W/COLLJ SPEC WHEN PFRMD Comment: Colonoscopy 09/1982: DILATION AND CURETTAGE DXAND/THER NONOBSTETRIC Comment: Dilation AND curettage 11/29/2023: EGD W/O [facility] SPEC VARICIES INJ 02/1996: PAST SURGICAL HISTORY OF Comment: EMB No date: TONSILLECTOMY AND ADENOIDECTOMY Comment: T/A (under age 13 years) FAMILY HISTORY Problem Relation Age of Onset Hypertension Mother Arthritis Mother Heart disease Mother Diabetes Father adult onset Emphysema Father Cancer Father lung Psychiatry Maternal Grandmother Ischemic Heart Disease Maternal Grandfather Diabetes Paternal Grandmother Asthma Daughter Allergic Rhinitis Daughter Colon Cancer No Family History Social History Tobacco Use Smoking status: Never Smokeless tobacco: Never Tobacco comments: Father smoked in childhood home. 2 spouses were smokers. Vaping Use Vaping Use: Never used Substance Use Topics Alcohol use: No Drug use: No Past medical history, appointments, medications, allergies reviewed. Pertinent Lab/Diagnostic Studies are reviewed and discussed today Current Outpatient Medications: (more content not included)... [facility] Tele[facility] (INTMWS) LOU OLIVER ([id number]) 1945 F Date Time Provider Department 06/03/24 MARVEL RIZZO INTWS During your visit today, we recorded the following information about you: Alberto Chaparro RN 06/03/2024 1:24 PM Signed Patient reports she was at an exercise class today, and the squad was called because she was having a panic attack. Reports she thinks it was brought on by parkinsons, because there were no triggers, no concerns, she wasn't nervous, it just came out of no where. Patient declined to go to hospital, stating there really wasn't anything a hospital could do. Reports she is currently taking zoloft, which helps with her depression, and she has ativan if needed. Reports during todays attack, she became SOB, weak, tremors became worse. EMS advised her to see her doctor. Scheduled appt for Saturday of this week. Allergies As of Date: 06/03/2024 Noted Allergy Reaction SULFA (SULFONAMIDE ANTIBIOTICS) 10/26/2005 4 - Hives Date Reviewed: 05/04/2024 Reviewed by: Radha Kent MA - Fully Assessed Reason for Visit: Panic attacks [Other] Prescriptions as of 06/03/2024 - sertraline (ZOLOFT) 100 mg tablet Take 1 tablet by mouth once daily. - fludrocortisone (FLORINEF) 0.1 mg tablet Take 1 tablet by mouth once daily. - levothyroxine (SYNTHROID) 75 mcg tablet Take 1 tablet by mouth once daily. Take on empty stomach. For Thyroid - carbidopa-levodopa (SINEMET 25-100) 25-100 mg per tablet TAKE 1 TAB AT 7AM, 1.5 TO 2 TABS AT 11AM, 1.5 TABS AT 3PM AND 1 TAB AT 7PM. - triamcinolone acetonide (KENALOG) 0.1 % cream Apply 1 application to affected area three times a day. Apply sparingly to area for rash/itching. - Olopatadine (PATADAY ONCE DAILY RELIEF) 0.2 % drop Use 1 Drop in both eyes once daily. - ondansetron orally disintegrating (ZOFRAN ODT) 4 mg disintegrating tablet Take 1 tablet by mouth every 8 hours as needed for nausea/vomiting. - docusate sodium (COLACE) 100 mg capsule Take 1 capsule by mouth two times a day. - pravastatin (PRAVACHOL) 20 mg tablet Take 1 tablet by mouth daily at bedtime. - pantoprazole DR (PROTONIX) 40 mg tablet Take 1 tablet by mouth once daily. On empty stomach at least 30 minutes before eating. - carbidopa-levodopa CR (SINEMET CR) 50-200 mg per tablet TAKE 1 TABLET BY MOUTH in Morning and before bedtime as instructed. - gabapentin (NEURONTIN) 100 mg capsule Take 1 capsule by mouth two times a day for 180 days. - LORazepam (ATIVAN) 0.5 mg Take by mouth. - Cholecalciferol, Vitamin D3, 50 mcg (2,000 unit) cap Take 2,000 Units by mouth once daily. - diclofenac sodium (VOLTAREN) 1 % topical gel APPLY 2 GRAMS TO AFFECTED AREA 4 TIMES A DAY Problem List As Of Date 06/03/2024 Noted Resolved Essential hypertension, benign [I10] 04/04/2007 Hypothyroidism [E03.9] 04/04/2007 COMMON MIGRAINE [346.1] 04/04/2007 Anxiety state [F41.1] 04/04/2007 Mixed hyperlipidemia [E78.2] 10/26/2009 Pes anserinus bursitis of left knee [M70.52] 10/29/2013 Left knee pain [M25.562] 10/29/2013 Cervical spondylosis without myelopathy [M47.81*05/18/2020 Parkinson disease (HCC) [G20.A1] 07/18/2020 Spinal stenosis of cervical region [M48.02] 07/18/2020 Intracranial meningioma (HCC) [D32.0] 07/18/2020 Palpitations [R00.2] 10/03/2020 Shortness of breath [R06.02] 10/03/2020 Tachycardia [R00.0] 06/12/2021 Neck pain [M54.2] 04/09/2023 Neck muscle weakness [M53.82] 04/09/2023 Encounter Status:Closed by Alberto CHAPARRO on 06/03/24 [facility] CNOVjose guadalupe 05-04-2024 CNOV Office Visit (UCWSTR ) LOU OLIVER ([id number]) 1945 F Date Time Provider Department 05/04/24 11:15 AM BRISSA YOUNG [facility] During your visit today, we recorded the following information about you: Temperature Pulse Respiration Blood pressure 98.3 degrees 76/minute 16/minute 134/78 Weight 58.6 kg Brissa Young APRN.CNP 05/04/2024 11:28 AM Signed Zyrtec or claritin 10 mg By mouth daily at bedtime Start Triamcinolone 0.1% ointment twice daily for itch, do not use near eye Pataday eye drops as needed for itching Benadryl srpay as needed Keep rash clean and dry. Allow to dry out. Brissa Young APRN.CNP 05/04/2024 11:47 AM Signed Subjective The history is provided by the patient. No hourly sign language interpreter was used. Patient presents with: Rash: left eye matting and itching, neck x 3 days Lou Oliver is a 78 year old female who presents with a complaint of a rash on neck, face, and right arm The patients reports recently working in the garden. The rash is discribed as itchy, red Past treatments otc anti-itch cream Does the patient have a personal history of: Seasonal allergies: no Recent travel: no Recent infections: no Beginning a new medication: no Symptoms are triggered by: heat Other symtoms include: none of the following - appetite change, weight change, fever, chills, malaise, and fatigue Review of Systems Constitutional: Negative for chills and fever. Musculoskeletal: Negative for joint pain and myalgias. Skin: Positive for itching and rash. All other systems reviewed and are negative. Objective Physical Exam Vitals and nursing note reviewed. Pulmonary: Effort: Pulmonary effort is normal. Skin: General: Skin is warm and dry. Findings: Rash present. Rash is papular and vesicular. Neurological: Mental Status: She is alert and oriented to person, place, and time. Psychiatric: Mood and Affect: Affect normal. ASSESSMENT/PLAN: 1. Rash - ICD9: 782.1, ICD10: R21 Appears to be contact dermatitis Triamcinolone cream, do not use near eye Zyrtec Pataday for eye itching Diagnosis and treatment plan were discussed and questions were answered to the patient's satisfaction. Pt acknowledged understanding of concepts and follow up plan. Specific signs and symptoms that would indicate the need for higher level of care were discussed in detail warranting prompt ER evaluation. Brissa Young APRN.ADRIANNA Allergies As of Date: 05/04/2024 Noted Allergy Reaction SULFA (SULFONAMIDE ANTIBIOTICS) 10/26/2005 4 - Hives Date Reviewed: 05/04/2024 Reviewed by: Radha Kent MA - Fully Assessed Reason for Visit: Rash [1087] Cmt: left eye matting and itching, neck x 3 days Primary Visit Diagnosis:Rash [R21] Order(s):triamcinolone acetonide (KENALOG) 0.1 % creamApply 1 application to affected area three times a day. Apply sparingly to area for rash/itching.Disp: 30 gRfl: 0 Olopatadine (PATADAY ONCE DAILY RELIEF) 0.2 % dropUse 1 Drop in both eyes once daily.Disp: 5 mLRfl: 0 Prescriptions as of 05/04/2024 - triamcinolone acetonide (KENALOG) 0.1 % cream Apply 1 application to affected area three times a day. Apply sparingly to area for rash/itching. - Olopatadine (PATADAY ONCE DAILY RELIEF) 0.2 % drop Use 1 Drop in both eyes once daily. - ondansetron orally disintegrating (ZOFRAN ODT) 4 mg disintegrating tablet Take 1 tablet by mouth every 8 hours as needed for nausea/vomiting. - docusate sodium (COLACE) 100 mg capsule Take 1 capsule by mouth two times a day. - pravastatin (PRAVACHOL) 20 mg tablet Take 1 tablet by mouth daily at bedtime. - lidocaine (LIDODERM) 5 % Apply 2 Patches as directed once daily. Remove patch after 12 hours. - pantoprazole DR (PROTONIX) 40 mg tablet Take 1 tablet by mouth once daily. On empty stomach at least 30 minutes before eating. - carbidopa-levodopa CR (SINEMET CR) 50-200 mg per tablet TAKE 1 TABLET BY MOUTH in Morning and before bedtime as instructed. - carbidopa-levodopa (SINEMET) 25-100 mg per tablet Take 1 tab at 7AM, 1.5 to 2 tabs at 11AM, 1.5 tabs at 3PM and 1 tab at 7PM. - gabapentin (NEURONTIN) 100 mg capsule Take 1 capsule by mouth two times a day for 180 days. - fludrocortisone (FLORINEF) 0.1 mg tablet take 1 tablet by mouth every day - LORazepam (ATIVAN) 0.5 mg Take by mouth. - levothyroxine (SYNTHROID) 75 mcg tablet Take 1 tablet by mouth once daily. Take on empty stomach. For Thyroid - sertraline (ZOLOFT) 100 mg tablet Take 1 tablet by mouth once daily. - Cholecalciferol, Vitamin D3, 50 mcg (2,000 unit) cap Take 2,000 Units by mouth once daily. - diclofenac sodium (VOLTAREN) 1 % topical gel APPLY 2 GRAMS TO AFFECTED AREA 4 TIMES A DAY Problem List As Of Date 05/04/2024 Noted Resolved Essential hypertension, benign [I10] 04/04/2007 Hypothyroidism [E03.9] 04/04/2007 COMMON MIGRAINE [346.1] (more content not included)... Normal [facility] CNPNon 05-01-2024 CNPN Telephone (AGSPINE3) LOU OLIVER ([id number]) 1945 F Date Time Provider Department 05/01/24 PREBICARMEN, GRACE AGSPINE3 During your visit today, we recorded the following information about you: Prudence Barnhart 05/01/2024 8:09 AM Signed ----- Message from Diane Haji sent at 04/30/2024 4:52 PM EDT ----- Regarding: Spine AND Pain / Prebish, Grace (BUCKET PUSHER) / Procedure / Injection Spine AND Pain / Prebish, Grace (BUCKET PUSHER) / Procedure / Injection = Patient: Lou Oliver Date of : 1945 Primary Care Provider: Marvel Rizzo MD Patient has been identified by name and Date of (Y/N): y Patient: Lou Oliver Date of : 1945 Provider for this encounter: Marvel Rizzo MD Reason for the call/escalation: Patient saw Grace Preniko but wanted to know if she needs to set up her next TPI. She would like a call back to discuss this Was Patient Referred to [facility]/Seek Emergency Treatment (Y/N): n Did Patient Agree (Y/N): n.a Was An Attempt Made To Transfer The Patient To The Office (Y/N): n Were You Able To Reach Someone At The Office (Y/N): n.a If Yes - Patient Was Transferred To (Caregivers Name): n.a If No - Which [facility] Or [facility] Did You Speak With Regarding This Patient: n.a Was an appointment scheduled (Y/N): n Reason patient was requesting visit (RFV/signs and symptoms/diagnosis) : injection Person calling if other than patient: self Return call to if other than patient: self Best contact number: [phone] Thank you, Diane Haji April 30, 2024 4:53 PM Jade Collins 05/01/2024 10:47 AM Signed Patient was called and spoken with. She was confused when she was scheduled for her next appointment since they didn't schedule her tpi. Patient was wondering if Grace thinks she needs more injections since she benefots from them.? Patient is scheduled to come in on 06/[address] Diaz for 3 mos follow up and was wondering if she has to wait until then to Dr. Diaz or if an order could be placed now if Grace so she can be scheduled for that and maybe get it done when she come in? Grace Vargas APRN.CNP 05/01/2024 1:09 PM Signed I didn't get the impression she wanted more TPI's ordered at yesterdays appt however, I am happy to have her schedule TPI's periodically. I added an order to be done X3 please schedule every 4-6 weeks. Thanks. Grace Hunt APRN.CNP 05/01/2024 1:09 PM Signed Addended by: GRACE HUNT on: 05/01/2024 01:09 PM Modules accepted: Jade Monge 05/01/2024 1:36 PM Signed Patient was called and informed there are now an order for trigger points in place for her. When she calls we will schedule 3 of them 4-6 weeks apart. Referral will be built. So please schedule from that. Jade Collins Allergies As of Date: 05/01/2024 Noted Allergy Reaction SULFA (SULFONAMIDE ANTIBIOTICS) 10/26/2005 4 - Hives Date Reviewed: 03/25/2024 Reviewed by: Sayra Mabry MD - Fully Assessed Reason for Visit: Returning Patient's Call [408] Primary Visit Diagnosis:Myofascial pain [M79.18] Order(s):PRE-CERT ORDER (AG) [[id number]] Order #: [id number]: 1 Prescriptions as of 05/01/2024 - ondansetron orally disintegrating (ZOFRAN ODT) 4 mg disintegrating tablet Take 1 tablet by mouth every 8 hours as needed for nausea/vomiting. - docusate sodium (COLACE) 100 mg capsule Take 1 capsule by mouth two times a day. - pravastatin (PRAVACHOL) 20 mg tablet Take 1 tablet by mouth daily at bedtime. - lidocaine (LIDODERM) 5 % Apply 2 Patches as directed once daily. Remove patch after 12 hours. - pantoprazole DR (PROTONIX) 40 mg tablet Take 1 tablet by mouth once daily. On empty stomach at least 30 minutes before eating. - carbidopa-levodopa CR (SINEMET CR) 50-200 mg per tablet TAKE 1 TABLET BY MOUTH in Morning and before bedtime as instructed. - carbidopa-levodopa (SINEMET) 25-100 mg per tablet Take 1 tab at 7AM, 1.5 to 2 tabs at 11AM, 1.5 tabs at 3PM and 1 tab at 7PM. - gabapentin (NEURONTIN) 100 mg capsule Take 1 capsule by mouth two times a day for 180 days. - fludrocortisone (FLORINEF) 0.1 mg tablet take 1 tablet by mouth every day - LORazepam (ATIVAN) 0.5 mg Take by mouth. - levothyroxine (SYNTHROID) 75 mcg tablet Take 1 tablet by mouth once daily. Take on empty stomach. For Thyroid - sertraline (ZOLOFT) 100 mg tablet Take 1 tablet by mouth once daily. - Cholecalciferol, Vitamin D3, 50 mcg (2,000 unit) cap Take 2,000 Units by mouth once daily. - diclofenac sodium (VOLTAREN) 1 % topical gel APPLY 2 GRAMS TO AFFECTED AREA 4 TIMES A DAY Problem List As Of Date 05/01/2024 Noted Resolved Essential hypertension, benign [I10] 04/04/2007 Hypothyroidism [E03.9] 04/04/2007 COMMON MIGRAINE [346.1] 04/04/2007 Anxiety state [F41.1] 04/04 (more content not included)... Normal [facility] CNPAngela 04-30-2024 CNPN Telephone (AGSPHWG) LOU OLIVER ([id number]) 1945 F Date Time Provider Department 04/30/24 GRACE HUNT AGSPHWG During your visit today, we recorded the following information about you: Zoltan Gomez 04/30/2024 3:41 PM Signed LVM with patient to call back/[facility]. 2 month follow up. Zoltan Whaley 05/01/2024 2:26 PM Signed LVM (2nd one) with patient to call back/[facility]. 2 month follow up. Zoltan Gomez Allergies As of Date: 04/30/2024 Noted Allergy Reaction SULFA (SULFONAMIDE ANTIBIOTICS) 10/26/2005 4 - Hives Date Reviewed: 03/25/2024 Reviewed by: Sayra Mabry MD - Fully Assessed Reason for Visit: Appointment [186] Prescriptions as of 05/01/2024 - ondansetron orally disintegrating (ZOFRAN ODT) 4 mg disintegrating tablet Take 1 tablet by mouth every 8 hours as needed for nausea/vomiting. - docusate sodium (COLACE) 100 mg capsule Take 1 capsule by mouth two times a day. - pravastatin (PRAVACHOL) 20 mg tablet Take 1 tablet by mouth daily at bedtime. - lidocaine (LIDODERM) 5 % Apply 2 Patches as directed once daily. Remove patch after 12 hours. - pantoprazole DR (PROTONIX) 40 mg tablet Take 1 tablet by mouth once daily. On empty stomach at least 30 minutes before eating. - carbidopa-levodopa CR (SINEMET CR) 50-200 mg per tablet TAKE 1 TABLET BY MOUTH in Morning and before bedtime as instructed. - carbidopa-levodopa (SINEMET) 25-100 mg per tablet Take 1 tab at 7AM, 1.5 to 2 tabs at 11AM, 1.5 tabs at 3PM and 1 tab at 7PM. - gabapentin (NEURONTIN) 100 mg capsule Take 1 capsule by mouth two times a day for 180 days. - fludrocortisone (FLORINEF) 0.1 mg tablet take 1 tablet by mouth every day - LORazepam (ATIVAN) 0.5 mg Take by mouth. - levothyroxine (SYNTHROID) 75 mcg tablet Take 1 tablet by mouth once daily. Take on empty stomach. For Thyroid - sertraline (ZOLOFT) 100 mg tablet Take 1 tablet by mouth once daily. - Cholecalciferol, Vitamin D3, 50 mcg (2,000 unit) cap Take 2,000 Units by mouth once daily. - diclofenac sodium (VOLTAREN) 1 % topical gel APPLY 2 GRAMS TO AFFECTED AREA 4 TIMES A DAY Problem List As Of Date 04/30/2024 Noted Resolved Essential hypertension, benign [I10] 04/04/2007 Hypothyroidism [E03.9] 04/04/2007 COMMON MIGRAINE [346.1] 04/04/2007 Anxiety state [F41.1] 04/04/2007 Mixed hyperlipidemia [E78.2] 10/26/2009 Pes anserinus bursitis of left knee [M70.52] 10/29/2013 Left knee pain [M25.562] 10/29/2013 Cervical spondylosis without myelopathy [M47.81*05/18/2020 Parkinson disease (HCC) [G20.A1] 07/18/2020 Spinal stenosis of cervical region [M48.02] 07/18/2020 Intracranial meningioma (HCC) [D32.0] 07/18/2020 Palpitations [R00.2] 10/03/2020 Shortness of breath [R06.02] 10/03/2020 Tachycardia [R00.0] 06/12/2021 Neck pain [M54.2] 04/09/2023 Neck muscle weakness [M53.82] 04/09/2023 Encounter Status:Closed by ZOLTAN GOMEZ on 04/30/24 [facility] CNOVon 03-25-2024 CNOV Office Visit (NRMDN) LOU OLIVER ([id number]) 1945 F Date Time Provider Department 03/25/24 2:00 PM SAYRA MABRY NRMDN During your visit today, we recorded the following information about you: Weight Height 56.9 kg 1.626 m Sayra Mabry MD 03/25/2024 3:20 PM Signed [facility] - NEW PATIENT EVALUATION Silvano Vance [address] [facility] [id number] Marvel Rizzo MD [address] [facility] [id number] Dear Ms. Vance: Thank you for referring Ms. Oliver to our clinic today. As you know she is a 78 year old ambidextrous female who is seen in consultation for evaluation of PD since 2019. She is seen with 2 daughers. Subjective HISTORY OF PRESENT ILLNESS: Initial HPI Patient of Dr. Connolly. PCP suggested 2nd opinion. Lately main problem is syncope. Few times trouble at exercise class. Often more obvious with exercise classes. But can happen any time of the day. On Florinef and worked well for awhile. Tried twice daily and felt better but reduced it back on her own. Has compression stockings but doesn't consistently wear them. Drinks 40 ounces water per day. Doesn't eat much. Gets bloated through the day. Sees GI for chronic IBS, GERD. Falls related to low BP more than imbalance. Sinemet caused nausea from the beginning. Better lately, not as often. Now has it 4/7 days. When due for medication or shortly after she takes it. Off symptoms are also slow speech, imbalance, pain, maybe some anxiety. Off earlier today. Often linked to low BP. Not linked to BP doses. Always on for doctor visits. Takes Zofran for nausea very sparingly and it is very effective. Daughter feels she could take it more often. Also multiple GI issues. Exercises regularly at PD exercise classes in [place]. Active her whole life. Movement Disorders Medications Schedule - as of the start of the visit: Medications 7 11 3 7 11 Sinemet IR 25/100 1 2 1.5 1 Sinemet CR 50/200 1 1 Parkinson's Motor Complications Wearing off: no (Comment: mild) Dyskinesia: yes (Comment: more than before) Questionnaires: In addition, the following areas that may be affected by abnormal involuntary movements were evaluated: Daily activities Difficulties with eating: Yes (slight) Difficulties in dressing: Yes (mild) Difficulties with hygiene activities: Yes (slight) Difficulties with handwriting: Yes (slight) Difficulties with doing hobbies and other activities: Yes (mild) Difficulties turning in bed: Yes (slight) Difficulties getting out of bed, car or chair: Yes (mild) Tremors/Gait/Balance Shaking or tremors: Yes (mild) Walking and balance problems: Yes (moderate) Number of falls in the Last Month: 2019 Gait freezing: Yes (moderate) Autonomic/Pain Lightheadeness on standing: Yes (moderate) Urinary problems: Yes (mild) Constipation problems: Yes (mild) Pain and other sensations: Yes (moderate) Speech/Swallowing Speech problems: Yes (mild) Drooling: Yes (moderate) Chewing and swallowing problems: Yes (slight) Sleep/Fatigue Sleep problems: Yes (mild) Daytime sleepiness: Yes (mild) Fatigue: Yes (mild) Mood/Behavior Depression: PHQ-9 Score: 10 usually representing moderate (10-14) depression. Anxiety: DIANNE-7 Total Score: 8 usually representing mild (5-9) anxiety. Finally, the following table shows the patient's overall global physical and mental health using the PROMIS scale: PROMIS-10 Flowsheet Row Office Visit from 03/25/2024 in Neurology Office Visit from 10/25/2023 in Neurology Global Physical Health T Score 39.8 39.8 Global Mental Health T Score 45.8 43.5 0-10 Standard Pain Scale 3 3 *PROMIS-10 scoring scale: mean = 50, over 50 is above average, under 50 is below average In addition, the following Parkinson Lifestyle-associated features were evaluated: Conditions Prior to Dx: Depression: Yes Anxiety: Yes Melanoma: No Constipation: Yes Yelling: No Head Trauma: No Habits/exposures Prior to Dx Smoking: No Caffeinated coffee (1-cup+): No Caffeinated soda/tea (2 cups+): No Alcohol (1 bottle/shot/glass+): No Exercise (3x/wk+): Yes (and still do) Ibuprofen use (1x/wk+): Yes (but quit) Pesticides: Yes (but quit) Welding: No Review of Systems Review of Systems Constitutional Positive for Weight Loss Negative for Fevers, Night Sweats, Weight Gain and Fatigue Eyes Negative for Change in vison not corrected by glasses and Vision loss or change Hent Positive for Difficulty Swallowing Negative for Hearing Loss, Tinnitus and Recent change in speech or voice Cardiovascular Positive for Lightheadedness Negative for Chest Pain and Leg pain with walking Respiratory Positive for SOB at rest Negative for SOB with exertion, Cough, Wheezing and Snoring GI Positive for Constipation, Nausea/Vomiting and Heartburn Negative for Blood (more content not included)... Normal [facility] CNOVon 03-23-2024 CNOV Office Visit (GSTNOR ) LOU OLIVER ([id number]) 1945 F Date Time Provider Department 03/23/24 10:55 AM ERA GAGNON During your visit today, we recorded the following information about you: Pulse Blood pressure Weight Height 76/minute 112/70 57.3 kg 1.626 m Era Gagnon PA-C 03/23/2024 11:26 AM Signed CHIEF COMPLAINT: Patient presents with: Recheck: Dysphagia- pt states she is doing a little better HPI Accompanied by daughter Lou Oliver is a 78 year old female PMHx positive for Parkinson's here today for Recheck (Dysphagia- pt states she is doing a little better ). Seen previously for dysphagia. On Protonix 40 mg daily. S/P EGD w/ dilation 11/2023 with good improvement. Includes that her acid reflux has reduced. Some residual nausea, attributes this to her dopamine. Includes she only gets returning acid reflux when she is not eating. Zofran PRN helps her to eat. Weight loss of 3 lbs since last OV. Bms are persistently alternating between constipated/diarrhea, no blood. States she thinks is related to her IBS. Only taking Colace once daily. EGD 11/2023 Impression: - Tortuous esophagus. - Z-line regular, 39 cm from the incisors. - Non-obstructing and mild Schatzki ring. Dilated. - Normal stomach. Biopsied. - Normal examined duodenum. FINAL DIAGNOSIS Stomach, biopsies: - Minimal chronic gastritis. Negative for morphologic features of Helicobacter pylori on routine staining. Colon 2018 Impression: - Diverticulosis in the sigmoid colon and in the transverse colon. - Non-bleeding external and internal hemorrhoids. - No specimens collected. Cookie swallow 08/2023 Impression: 1. No evidence of aspiration 2. There appears to be marked narrowing of the distal esophagus or gastroesophageal junction. Formal esophagram recommended 3. See Speech and Hearing therapist report for further evaluation OV 10/2023 Accompanied by daughter Lou Oliver is a 78 year old female with PMHx positive for Parkinson's who presents for Trouble swallowing (Barium swallow 09/17/23. Has the most trouble swallowing water. Acid reflux concerns.). Admits to chronic sx of dysphagia since dx of Parkinson's. Feels as though sx have worsened recently. Notes sensations of dysphagia in mid-esophagus with solids. Bms are daily, chronically constipated, no blood/black coloring, drinking more water helps sx. Takes Colace PRN with relief. Regular bloating, no identifiable triggers. Unintentional weight loss of 5 lbs in the past month. Takes excedrin 3x per month for migraines. Current Outpatient Medications Medication Sig methylPREDNISolone (MEDROL, KATHARINA,) 4 mg Dose-Pack Follow dosing instructions, take with food. pravastatin (PRAVACHOL) 20 mg tablet Take 1 tablet by mouth daily at bedtime. lidocaine (LIDODERM) 5 % Apply 2 Patches as directed once daily. Remove patch after [address] (PROTONIX) 40 mg tablet Take 1 tablet by mouth once daily. On empty stomach at least 30 minutes before eating. carbidopa-levodopa CR (SINEMET CR) 50-200 mg per tablet TAKE 1 TABLET BY MOUTH in Morning and before bedtime as instructed. carbidopa-levodopa (SINEMET) 25-100 mg per tablet Take 1 tab at 7AM, 1.5 to 2 tabs at 11AM, 1.5 tabs at 3PM and 1 tab at 7PM. (Patient taking differently: Take 1 tab at 7AM, 2 tabs at 11AM, 1.5 tabs at 3PM and 1 tab at 7PM.) gabapentin (NEURONTIN) 100 mg capsule Take 1 capsule by mouth two times a day for 180 days. fludrocortisone (FLORINEF) 0.1 mg tablet take 1 tablet by mouth every day ondansetron orally disintegrating (ZOFRAN ODT) 4 mg disintegrating tablet Take 1 tablet by mouth every 6 hours as needed for nausea/vomiting. LORazepam (ATIVAN) 0.5 mg Take by mouth. levothyroxine (SYNTHROID) 75 mcg tablet Take 1 tablet by mouth once daily. Take on empty stomach. For Thyroid sertraline (ZOLOFT) 100 mg tablet Take 1 tablet by mouth once daily. Cholecalciferol, Vitamin D3, 50 mcg (2,000 unit) cap Take 2,000 Units by mouth once daily. diclofenac sodium (VOLTAREN) 1 % topical gel APPLY 2 GRAMS TO AFFECTED AREA 4 TIMES A DAY docusate sodium (COLACE ORAL) Take by mouth as needed. No current facility-administered medications for this visit. ALLERGIES Allergen Reactions Sulfa (Sulfonamide * Hives Social History Tobacco Use Smoking status: Never Smokeless tobacco: Never Tobacco comments: Father smoked in childhood home. 2 spouses were smokers. Vaping Use Vaping Use: Never used Substance Use Topics Alcohol use: No Drug use: No PAST MEDICAL HISTORY Diagnosis Date Diverticulosis of colon (without mention of hemorrhage) Essential hypertension, benign 04/04/2007 Mental disorder Migraine without aura 04/04/2007 Parkinson disease (HCC) Unspecified hypothyroidism 04/04/2007 PAST SURGICAL HISTORY Procedure Laterality Date DE (more content not included)... Normal [facility] CNOVon 03-22-2024 CNOV Office Visit (UCWSTR ) LOU OLIVER ([id number]) 1945 F Date Time Provider Department 03/22/24 12:00 PM OC ROSE UCWSTR During your visit today, we recorded the following information about you: Temperature Pulse Respiration Blood pressure 97.3 degrees 70/minute 18/minute 116/66 Weight 58 kg Oc Rose APRN.BUCKET PUSHER 03/22/2024 12:28 PM Signed Subjective Patient has rash yet under left eye and on right side and neck. Says it is itchy. Says she had an some poison dana. Patient also complains of a sore throat. [place] any other symptoms. The history is provided by the patient. No hourly sign language interpreter was used. Hives Review of Systems Constitutional: Negative. Skin: Negative. Objective Physical Exam Constitutional: Appearance: Normal appearance. HENT: Mouth/Throat: Mouth: Mucous membranes are moist. Pharynx: Posterior oropharyngeal erythema present. No pharyngeal swelling, oropharyngeal exudate or uvula swelling. Cardiovascular: Rate and Rhythm: Normal rate and regular rhythm. Heart sounds: Normal heart sounds. Pulmonary: Effort: Pulmonary effort is normal. Breath sounds: Normal breath sounds. Neurological: Mental Status: She is alert. PAST MEDICAL HISTORY Diagnosis Date Diverticulosis of colon (without mention of hemorrhage) Essential hypertension, benign 04/04/2007 Mental disorder Migraine without aura 04/04/2007 Parkinson disease (HCC) Unspecified hypothyroidism 04/04/2007 PAST SURGICAL HISTORY Procedure Laterality Date DELIVERY ONLY , low cervical x2 COLONOSCOPY FLX DX W/COLLJ SPEC WHEN PFRMD 1994 Colonoscopy COLONOSCOPY FLX DX W/COLLJ SPEC WHEN PFRMD 04/07/2012 Colonoscopy COLONOSCOPY FLX DX W/COLLJ SPEC WHEN PFRMD 06/17/2019 Colonoscopy DILATION AND CURETTAGE DXAND/THER NONOBSTETRIC 09/1982 Dilation AND curettage EGD W/O [facility] SPEC VARICIES INJ 11/29/2023 PAST SURGICAL HISTORY OF 02/1996 EMB TONSILLECTOMY AND ADENOIDECTOMY T/A (under age 12 years) ALLERGIES Sulfa (Sulfonamide Antibiotics) MEDICATIONS pravastatin (PRAVACHOL) 20 mg tablet Take 1 tablet by mouth daily at bedtime. lidocaine (LIDODERM) 5 % Apply 2 Patches as directed once daily. Remove patch after [address] (PROTONIX) 40 mg tablet Take 1 tablet by mouth once daily. On empty stomach at least 30 minutes before eating. carbidopa-levodopa CR (SINEMET CR) 50-200 mg per tablet TAKE 1 TABLET BY MOUTH in Morning and before bedtime as instructed. carbidopa-levodopa (SINEMET) 25-100 mg per tablet Take 1 tab at 7AM, 1.5 to 2 tabs at 11AM, 1.5 tabs at 3PM and 1 tab at 7PM. (Patient taking differently: Take 1 tab at 7AM, 2 tabs at 11AM, 1.5 tabs at 3PM and 1 tab at 7PM.) gabapentin (NEURONTIN) 100 mg capsule Take 1 capsule by mouth two times a day for 180 days. fludrocortisone (FLORINEF) 0.1 mg tablet take 1 tablet by mouth every day ondansetron orally disintegrating (ZOFRAN ODT) 4 mg disintegrating tablet Take 1 tablet by mouth every 6 hours as needed for nausea/vomiting. LORazepam (ATIVAN) 0.5 mg Take by mouth. levothyroxine (SYNTHROID) 75 mcg tablet Take 1 tablet by mouth once daily. Take on empty stomach. For Thyroid sertraline (ZOLOFT) 100 mg tablet Take 1 tablet by mouth once daily. Cholecalciferol, Vitamin D3, 50 mcg (2,000 unit) cap Take 2,000 Units by mouth once daily. diclofenac sodium (VOLTAREN) 1 % topical gel APPLY 2 GRAMS TO AFFECTED AREA 4 TIMES A DAY docusate sodium (COLACE ORAL) Take by mouth as needed. methylPREDNISolone (MEDROL, KATHARINA,) 4 mg Dose-Pack Follow dosing instructions, take with food. FAMILY HISTORY Problem Relation Age of Onset Hypertension Mother Arthritis Mother Heart disease Mother Diabetes Father adult onset Emphysema Father Cancer Father lung Psychiatry Maternal Grandmother Ischemic Heart Disease Maternal Grandfather Diabetes Paternal Grandmother Asthma Daughter Allergic Rhinitis Daughter Colon Cancer No Family History Social History Tobacco Use Smoking status: Never Smokeless tobacco: Never Tobacco comments: Father smoked in childhood home. 2 spouses were smokers. Vaping Use Vaping Use: Never used Substance Use Topics Alcohol use: No Drug use: No ASSESSMENT/PLAN: 1. Rash - ICD9: 782.1, ICD10: R21 (primary diagnosis) - METHYLPREDNISOLONE 4 MG TABLETS IN A DOSE PACK 2. Sore throat - ICD9: 462, ICD10: J02.9 - STREP A MOLECULAR (POC) - neg talked about proper use of medication supportive therapies. Patient will follow-up with signs and symptoms seem to getting worse not better. Patient was okay with this care plan. Oc Rose APRN.BUCKET PUSHER Allergies As of Date: 03/22/2024 Noted Allergy Reaction SULFA (SULFONAMIDE ANTIBIOTICS) 10/26/2005 4 - Hives Date Reviewed: 03/22/2024 Reviewed by: Constance Whitfield LPN - Fully Assessed Reason for Visit: Hiv (more content not included)... Normal [facility] STREP A MOLECULAR (POC)on Procedural Control Valid [facility] Strep A (POCT) Negative Negative [facility] CNPNon 03-13-2024 CNPN Telephone (UCWSTR) LOU OLIVER ([id number]) 1945 F Date Time Provider Department 03/13/24 OC ROSE [facility] During your visit today, we recorded the following information about you: Oc Rose APRN.BUCKET PUSHER 03/13/2024 10:58 AM Signed Please call and let patient know that the antibiotic was changed to Macrobid twice a day for 5 days. Patient should discontinue the other antibiotic. If patient's symptoms do not improve patient needs to follow-up with primary care. Constance Whitfield LPN 03/13/2024 11:26 AM Signed Left message for patient to return call. ALEXIS Tomas Sherrie, RN 03/13/2024 3:29 PM Signed Patient returned call and given provider's message below and patient verbalized understanding. Nathalia Gomez RN Allergies As of Date: 03/13/2024 Noted Allergy Reaction SULFA (SULFONAMIDE ANTIBIOTICS) 10/26/2005 4 - Hives Date Reviewed: 03/11/2024 Reviewed by: Emily Herrera LPN - Fully Assessed Reason for Visit: Results [95] Orders [681] Order(s):nitrofurantoi n monohydrate and macrocrystal (MACROBID) 100 mg capsuleTake 1 capsule by mouth two times a day for 5 days.Disp: 10 capsuleRfl: 0 Prescriptions as of 03/13/2024 - nitrofurantoin monohydrate and macrocrystal (MACROBID) 100 mg capsule Take 1 capsule by mouth two times a day for 5 days. - pravastatin (PRAVACHOL) 20 mg tablet Take 1 tablet by mouth daily at bedtime. - lidocaine (LIDODERM) 5 % Apply 2 Patches as directed once daily. Remove patch after 12 hours. - pantoprazole DR (PROTONIX) 40 mg tablet Take 1 tablet by mouth once daily. On empty stomach at least 30 minutes before eating. - carbidopa-levodopa CR (SINEMET CR) 50-200 mg per tablet TAKE 1 TABLET BY MOUTH in Morning and before bedtime as instructed. - carbidopa-levodopa (SINEMET) 25-100 mg per tablet Take 1 tab at 7AM, 1.5 to 2 tabs at 11AM, 1.5 tabs at 3PM and 1 tab at 7PM. - gabapentin (NEURONTIN) 100 mg capsule Take 1 capsule by mouth two times a day for 180 days. - fludrocortisone (FLORINEF) 0.1 mg tablet take 1 tablet by mouth every day - ondansetron orally disintegrating (ZOFRAN ODT) 4 mg disintegrating tablet Take 1 tablet by mouth every 6 hours as needed for nausea/vomiting. - LORazepam (ATIVAN) 0.5 mg Take by mouth. - levothyroxine (SYNTHROID) 75 mcg tablet Take 1 tablet by mouth once daily. Take on empty stomach. For Thyroid - sertraline (ZOLOFT) 100 mg tablet Take 1 tablet by mouth once daily. - Cholecalciferol, Vitamin D3, 50 mcg (2,000 unit) cap Take 2,000 Units by mouth once daily. - diclofenac sodium (VOLTAREN) 1 % topical gel APPLY 2 GRAMS TO AFFECTED AREA 4 TIMES A DAY - docusate sodium (COLACE ORAL) Take by mouth as needed. Problem List As Of Date 03/13/2024 Noted Resolved Essential hypertension, benign [I10] 04/04/2007 Hypothyroidism [E03.9] 04/04/2007 COMMON MIGRAINE [346.1] 04/04/2007 Anxiety state [F41.1] 04/04/2007 Mixed hyperlipidemia [E78.2] 10/26/2009 Pes anserinus bursitis of left knee [M70.52] 10/29/2013 Left knee pain [M25.562] 10/29/2013 Cervical spondylosis without myelopathy [M47.81*05/18/2020 Parkinson disease (HCC) [G20.A1] 07/18/2020 Spinal stenosis of cervical region [M48.02] 07/18/2020 Intracranial meningioma (HCC) [D32.0] 07/18/2020 Palpitations [R00.2] 10/03/2020 Shortness of breath [R06.02] 10/03/2020 Tachycardia [R00.0] 06/12/2021 Neck pain [M54.2] 04/09/2023 Neck muscle weakness [M53.82] 04/09/2023 Prescriptions ordered this encounter Disp Refills Start End NITROFURANTOIN MONOHYDRATE AND MACROCR* 10 c* 0 03/13/2024 03/18/2024 Route: ORAL Sig: Take 1 capsule by mouth two times a day for 5 days. Medications Discontinued During This Encounter Prescriptions - cephALEXin (KEFLEX) 500 mg capsule (Discontinued) Take 1 capsule by mouth two times a day for 7 days. Encounter Status:Closed by SARIAH GOMEZ on 03/13/24 [facility] Bacteria Ur Culton 4 Bacteria identified Cx Nom (U) ORGANISM ID: [id number] 50,000-<100,000 CFU/ml Citrobacter freundii complex ORGANISM ID: 1 (CITROBACTER FREUNDII COMPLEX) -- ANTIBIOTIC INTERPRETATION JEN STATUS REFERENCE RANGE -- Ampicillin R >=32 F Susceptible <=8 , Intermediate >8 , Resistant >16 Cefepime S <=1 F Susceptible <=2 , Susceptible-Dose Dependent >2 , Resistant >=16 Ertapenem S <=0.5 F Susceptible <=0.5 , Intermediate >.5 , Resistant >1 Meropenem S <=0.25 F Susceptible <=1 , Intermediate >1 , Resistant >2 Ampicillin/Sulbact R >=32 F Susceptible <=8 , Intermediate >8 , Resistant >16 Piperacillin/Tazobac S <=4 F Susceptible <16 , Susceptible-Dose Dependent >=16 , Resistant >=32 Gentamicin S <=1 F Susceptible <=2 , Intermediate >2 , Resistant >=8 Tobramycin S <=1 F Susceptible <4 , Intermediate >=4 , Resistant >=8 Trimeth sulfameth S <=20 F Susceptible <=40 , Resistant >40 Ciprofloxacin S <=0.25 F Susceptible <0.5 , Intermediate >=.5 , Resistant >=1 Nitrofurantoin S 32 F Susceptible <=32 , Intermediate >32 , Resistant >64 Abnormal [facility] Comment on above: Performed By: #### 6 30-4 ####[facility] [id number] [place] [id number] [facility] CNOVon 03-11-2024 CNOV Office Visit (UCWSTR ) LOU OLIVER ([id number]) 1945 F Date Time Provider Department 03/11/24 10:00 AM [facility] During your visit today, we recorded the following information about you: Temperature Pulse Respiration Blood pressure 97.4 degrees 78/minute 18/minute 104/64 Weight 58.1 kg Paula Pacheco APRN.CNP 03/11/2024 10:46 AM Signed This note was created using NoteWriter. Subjective Lou Oliver is a 78 year old female. 78 year old female with PMH Parkinsons, thyroid, migraine presents for UTI Acute onset 4 to 5 days ago +dysuria +frequency +hesitancy Endorses she has a history of stomach issues and she had recent bout of diarrhea And I sometimes get these Denies vaginal bleeding. Denies vaginal discharge Denies abdominal pain Denies skin rash or lesions. Denies fever or chills. Denies concerns for STI. The history is provided by the patient. No hourly sign language interpreter was used. UTI This is a new problem. The current episode started more than 2 days ago. The problem occurs every urination. The problem has not changed since onset.The quality of the pain is described as burning. The pain is at a severity of 5/10. The pain is moderate. There has been no fever. She is Not sexually active. There is No history of pyelonephritis. Associated symptoms include frequency, hesitancy and urgency. Pertinent negatives include no chills, no sweats, no nausea, no vomiting, no discharge, no hematuria, no possible and no flank pain. She has tried nothing for the symptoms. Her past medical history does not include kidney stones, single kidney, urological procedure, recurrent UTIs, urinary stasis or catheterization. PAST MEDICAL HISTORY Diagnosis Date Diverticulosis of colon (without mention of hemorrhage) Essential hypertension, benign 04/04/2007 Mental disorder Migraine without aura 04/04/2007 Parkinson disease (HCC) Unspecified hypothyroidism 04/04/2007 PAST SURGICAL HISTORY Procedure Laterality Date DELIVERY ONLY , low cervical x2 COLONOSCOPY FLX DX W/COLLJ SPEC WHEN PFRMD 1994 Colonoscopy COLONOSCOPY FLX DX W/COLLJ SPEC WHEN PFRMD 04/07/2012 Colonoscopy COLONOSCOPY FLX DX W/COLLJ SPEC WHEN PFRMD 06/17/2019 Colonoscopy DILATION AND CURETTAGE DXAND/THER NONOBSTETRIC 09/1982 Dilation AND curettage PAST SURGICAL HISTORY OF 02/1996 EMB TONSILLECTOMY AND ADENOIDECTOMY T/A (under age 12 years) ALLERGIES Sulfa (Sulfonamide Antibiotics) MEDICATIONS pravastatin (PRAVACHOL) 20 mg tablet Take 1 tablet by mouth daily at bedtime. lidocaine (LIDODERM) 5 % Apply 2 Patches as directed once daily. Remove patch after [address] (PROTONIX) 40 mg tablet Take 1 tablet by mouth once daily. On empty stomach at least 30 minutes before eating. carbidopa-levodopa CR (SINEMET CR) 50-200 mg per tablet TAKE 1 TABLET BY MOUTH in Morning and before bedtime as instructed. carbidopa-levodopa (SINEMET) 25-100 mg per tablet Take 1 tab at 7AM, 1.5 to 2 tabs at 11AM, 1.5 tabs at 3PM and 1 tab at 7PM. (Patient taking differently: Take 1 tab at 7AM, 2 tabs at 11AM, 1.5 tabs at 3PM and 1 tab at 7PM.) gabapentin (NEURONTIN) 100 mg capsule Take 1 capsule by mouth two times a day for 180 days. fludrocortisone (FLORINEF) 0.1 mg tablet take 1 tablet by mouth every day ondansetron orally disintegrating (ZOFRAN ODT) 4 mg disintegrating tablet Take 1 tablet by mouth every 6 hours as needed for nausea/vomiting. LORazepam (ATIVAN) 0.5 mg Take by mouth. levothyroxine (SYNTHROID) 75 mcg tablet Take 1 tablet by mouth once daily. Take on empty stomach. For Thyroid Cholecalciferol, Vitamin D3, 50 mcg (2,000 unit) cap Take 2,000 Units by mouth once daily. diclofenac sodium (VOLTAREN) 1 % topical gel APPLY 2 GRAMS TO AFFECTED AREA 4 TIMES A DAY docusate sodium (COLACE ORAL) Take by mouth as needed. cephALEXin (KEFLEX) 500 mg capsule Take 1 capsule by mouth two times a day for 7 days. sertraline (ZOLOFT) 100 mg tablet Take 1 tablet by mouth once daily. FAMILY HISTORY Problem Relation Age of Onset Hypertension Mother Arthritis Mother Heart disease Mother Diabetes Father adult onset Emphysema Father Cancer Father lung Psychiatry Maternal Grandmother Ischemic Heart Disease Maternal Grandfather Diabetes Paternal Grandmother Asthma Daughter Allergic Rhinitis Daughter Colon Cancer No Family History Social History Tobacco Use Smoking status: Never Smokeless tobacco: Never Tobacco comments: Father smoked in childhood home. 2 spouses were smokers. Vaping Use Vaping Use: Never used Substance Use Topics Alcohol use: No Drug use: No Review of Systems Constitutional: Negative for chills. Respiratory: Negative for apnea, choking and chest tightness. Cardiovascular: Negative for chest pain, palpitat (more content not included)... Normal [facility] CNOVon 02-27-2024 CNOV Office Visit (SPAGWO ) LOU OLIVER ([id number]) 1945 F Date Time Provider Department 02/27/24 1:00 PM JAK DIAZ SPAGWIrma During your visit today, we recorded the following information about you: Pulse Respiration 79/minute 16/minute Jak Diaz MD 02/27/2024 1:10 PM Signed [facility] Today's Date: 02/27/2024 Last visit: 11/28/2023 Name: Lou Oliver : 1945 Purpose: Follow-up Patient Evaluation - This is an established patient, returning today for continued evaluation and management of the chief complaint noted below Chief complaint: neck pain Referring Clinician: Marvel Rizzo MD Pertinent Past Medical History: Migraine, Lt. Knee pain, Parkinson disease, Neck pain, Intracranial meningioma, HTN, HLD, Tachycardia, Hypothyroidism, Cervical spondylosis, Anxiety, Pes anserinus bursitis of left knee, Neck muscle weakness, Spinal stenosis of cervical region, Pertinent Past Surgeries: none Plan at last visit: Medications: Ibuprofen Gel Caps 400mg BID PRN (prefer smaller pills given issues swallowing, but Mobic contraindicated due to Sulfa allergy) Neurontin 100mg BID Lidocaine patches, 2 daily, #60 Functional Shinto: Advised soft tissue massage Referrals: No additional considerations at present Follow-up: 3 months Depending on response to the above plan, consider: Repeat RFA vs SPRINT Interval History: Overall pain and functional disability since last visit: Better New Complaints since last visit: No She reports that her neck pain overall has been better since the ablation. However, on days when her Parkinson's symptoms are flared-up, or in between doses of medication, she has more pain. Her family notes that she is sitting more upright most days. She also finds that her pain worsens as the day progresses, typically after 430pm. She reports her Dopaminergic medications have been adjusted by her Parkinson's doctor. She is able to garden and be more active around the house. However, she still is unable to go for long walks. Pain Description: Timing: intermittant Character: aching and burning Primary Location: axial neck and upper traps Radiation: none Exacerbating factors: walking and lying flat Relieving factors: ice and heat, C-collar (uses sparingly) Interferes with: physical activity The patient denies difficulty with bowel or bladder control, unintentional weight loss, and fevers, chills, or night sweats. Post RFA MOUNIKA: Pain level: 2/10 (on good days) Pain Intensity 0 Personal Care (Washing/Dressing) 0 - I can look after myself normally without causing extra pain Lifting 2 - Pain prevents me from lifting heavy weights off the floor, but I can manage if conveniently positioned (e.g. on a table) Walking 2 Sitting 2 Standing 2 Sleeping 0 - Pain does not prevent me from sleeping well Sex Life 0 - My sex life is normal and causes no pain Social Life 2 Traveling 3 Total Score 13 Interpretation 0-20% - mild disability Current Pain Medications: Neuropathics: Gabapentin 100mg BID - for foot tingling/numbness, helps (Neurology) NSAIDS: Ibuprofen Gel Caps 400mg BID PRN (prefer smaller pills given issues swallowing, but Mobic contraindicated due to Sulfa allergy) Muscle Relaxants: Topicals: Voltaren gel, THC cream - helps a little bit, Lidocaine patches, 2 daily, #60 Other Prescription or OTC Pain Medications: Tylenol OTC Opioids (when applicable): No question data found. Tolerating Medication: Yes Medications helping improve ADL's and Self-care: Yes Anti-depressants or Mood-Stabilizers: None Anti-Coagulants: None Therapies Attended (Current or Most Recent): Physical Therapy : March - Jul, 2023 Notable Events During Course of Treatment: 07/04/2023 - Initial HPI (Obtained by Jak Diaz M.D.). Referred by Marvel Rizzo MD, for evaluation AND management of neck pain Duration: 10 years Sudden onset? no, Trauma? no Prior Treatments: Medications (See below), Modalities (eg. Heat, Ice), Physical Therapy , Home Exercise Program , and Activity Modification PT - 12 visits (04/09/2023 - 06/11/2023) Worked for years at a [employer], reports she frequently hunched in her job Seen previously (last on ) by an Anesthesia Pain Physician. She had trigger point injections multiple times, without sustained relief. This is her first evaluation by a [facility] Pain Physician. Takes Tylenol OTC, minimal relief Has Parkinson's Treatment History: PAIN PROCEDURES: DATE PROCEDURE IMPROVEMENT 10/02/2023 RFA, Bilat C4-5 and C5-6 >50% (02/27/2024) (more content not included)... Normal [facility] CNOVon 01-13-2024 CNOV Office Visit (INTMWS ) LOU OLIVER ([id number]) 1945 F Date Time Provider Department 01/13/24 12:20 PM SILVANO VANCE During your visit today, we recorded the following information about you: Temperature Pulse Respiration Blood pressure 97.2 degrees 82/minute 12/minute 110/62 Weight Height 59 kg 1.626 m Silvano Vance PA-C 01/14/2024 10:22 AM Signed CC: Patient presents with: Follow Up: labs, fell December 26 at movement class fell after standing up from a sitting position HPI Lou Oliver is a 78 year old female who presents today for 6 weeks f/u to reassess low BP episodes/syncope and to f/u re: recheck lipids since being back on statin. LV was on 12/02/23. See updated lab results below: Latest Ref Rng 12/31/2023 Cholesterol, Total <200 mg/dL 136 Triglyceride <150 mg/dL 69 HDL Cholesterol >39 mg/dL 54 Non HDL Cholesterol <130 mg/dL 82 Fasting Time hrs 12 VLDL Cholesterol <30 mg/dL 14 TC:HDL Ratio <5.10 2.52 LDL Cholesterol <100 mg/dL 68 LDL:HDL Ratio <2.54 1.26 Had another syncopal episode at her exercise/movement class on 12/26 - for which she notified her neuro PAReza, Zhane Sylvester, but no changes were made to medication at that time. Pt believes the sinemet to be the culprit, as she never had these syncopal episodes prior to starting the medication. Uses a cane to ambulate most of the time or at least I like to have it with me. Pt reports that she's in the process of getting a walker. Hyperlipidemia. Ms. Oliver reports doing well on current therapy of pravastatin (Pravachol). Denies side effects of muscle weakness or achiness. Her most recent lipid panels are: Cholesterol, Total (mg/dL) Date Value 12/31/2023 136 11/11/2023 216 03/08/2021 193 12/15/2018 185 HDL Cholesterol (mg/dL) Date Value 12/31/2023 54 11/11/2023 56 03/08/2021 71 12/15/2018 45 LDL Cholesterol (mg/dL) Date Value 12/31/2023 68 11/11/2023 142 03/08/2021 108 12/15/2018 111 Triglyceride (mg/dL) Date Value 12/31/2023 69 11/11/2023 92 03/08/2021 71 12/15/2018 144 The 10-year ASCVD risk score (Lia BAUTISTA, et al., 2019) is: 15% Values used to calculate the score: Age: 78 years Sex: Female Is Non- : No Diabetic: No Tobacco smoker: No Systolic Blood Pressure: 110 mmHg Is BP treated: No HDL Cholesterol: 54 mg/dL Total Cholesterol: 136 mg/dL REVIEW OF SYSTEMS See HPI All other systems negative. PAST MEDICAL HISTORY Diagnosis Date Diverticulosis of colon (without mention of hemorrhage) Essential hypertension, benign 04/04/2007 Mental disorder Migraine without aura 04/04/2007 Parkinson disease (HCC) Unspecified hypothyroidism 04/04/2007 PAST SURGICAL HISTORY Procedure Laterality Date DELIVERY ONLY , low cervical x2 COLONOSCOPY FLX DX W/COLLJ SPEC WHEN PFRMD 1994 Colonoscopy COLONOSCOPY FLX DX W/COLLJ SPEC WHEN PFRMD 04/07/2012 Colonoscopy COLONOSCOPY FLX DX W/COLLJ SPEC WHEN PFRMD 06/17/2019 Colonoscopy DILATION AND CURETTAGE DXAND/THER NONOBSTETRIC 09/1982 Dilation AND curettage PAST SURGICAL HISTORY OF 02/1996 EMB TONSILLECTOMY AND ADENOIDECTOMY T/A (under age 12 years) ALLERGIES Sulfa (Sulfonamide Antibiotics) MEDICATIONS pravastatin (PRAVACHOL) 20 mg tablet Take 1 tablet by mouth daily at bedtime. lidocaine (LIDODERM) 5 % Apply 2 Patches as directed once daily. Remove patch after [address] (PROTONIX) 40 mg tablet Take 1 tablet by mouth once daily. On empty stomach at least 30 minutes before eating. carbidopa-levodopa CR (SINEMET CR) 50-200 mg per tablet TAKE 1 TABLET BY MOUTH in Morning and before bedtime as instructed. carbidopa-levodopa (SINEMET) 25-100 mg per tablet Take 1 tab at 7AM, 1.5 to 2 tabs at 11AM, 1.5 tabs at 3PM and 1 tab at 7PM. (Patient taking differently: Take 1 tab at 7AM, 2 tabs at 11AM, 1.5 tabs at 3PM and 1 tab at 7PM.) gabapentin (NEURONTIN) 100 mg capsule Take 1 capsule by mouth two times a day for 180 days. fludrocortisone (FLORINEF) 0.1 mg tablet take 1 tablet by mouth every day ondansetron orally disintegrating (ZOFRAN ODT) 4 mg disintegrating tablet Take 1 tablet by mouth every 6 hours as needed for nausea/vomiting. LORazepam (ATIVAN) 0.5 mg Take by mouth. levothyroxine (SYNTHROID) 75 mcg tablet Take 1 tablet by mouth once daily. Take on empty stomach. For Thyroid sertraline (ZOLOFT) 100 mg tablet Take 1 tablet by mouth once daily. Cholecalciferol, Vitamin D3, 50 mcg (2,000 unit) cap Take 2,000 Units by mouth once daily. diclofenac sodium (VOLTAREN) 1 % topical gel APPLY 2 GRAMS TO AFFECTED AREA 4 TIMES A DAY docusate sodium (COLACE ORAL) Take by mouth as needed. FAMILY HISTORY Problem Relation Age of Onset Hypertension Mother Arthritis Mother Heart disease Mother Diabetes Father adult onset Emphyse (more content not included)... Normal [facility] Lipid 1996 panelon 4 Cholesterol [Mass/Vol] 136 mg/dL Normal <200 Cl [facility] Comment on above: Order Comment: Musa badillo Type: BLOOD SPECIMENOrdering Facility: [facility] Address: [address] [place] [address] Result Comment: <200 mg/dL, Desirable 200-239 mg/dL, Borderline high >239 mg/dL, High Performed By: #### 2 4331-1 ####[facility] LABCLIA [id number] [place] [address] [place] Cholesterol in HDL [Mass/Vol] 54 mg/dL Normal >39 [facility] Comment on above: Order Comment: Musa badillo Type: BLOOD SPECIMENOrdering Facility: [facility] Address: [address] [place] [address] Result Comment: 40-5 9 mg/dL, Acceptable >59 mg/dL, High: Negative risk factor for coronary heart disease <40 mg/dL, Low: Positive risk factor for coronary heart disease Performed By: #### 2 4331-1 ####[facility] LABCLIA [id number] [place] [address] [place] Cholesterol in LDL [Mass/Vol] 68 mg/dL Normal <100 [facility] Comment on above: Order Comment: Speci men Type: BLOOD SPECIMENOrdering Facility: [facility] Address: [address] [place] [address] Result Comment: <100 mg/dL, Optimal 100-129 mg/dL, Near optimal/above optimal 130-159 mg/dL, Borderline high 160-189 mg/dL, High >189 mg/dL, Very high Secondary prevention optimal LDL Cholesterol levels are recommended to be < 70 mg/dL Performed By: #### 2 4331-1 ####[facility] LABIA [id number] [place] [address] [place] Cholesterol in LDL/Cholesterol in HDL [Mass ratio] 1.26 {ratio} Normal <2.54 [facility] Comment on above: Order Comment: Speci men Type: BLOOD SPECIMENOrdering Facility: [facility] Address: [address] [place] [address] Result Comment: Refe bharati: 1. National Cholesterol Education Program ATP III Guideline At-A-Glance Quick Desk Reference: National Heart, Lung, and Blood Vina. National Institutes of Health. 2001: NIH Publication No. 01-3305. 2. An International Atherosclerosis Society position paper: global recommendations for the management of dyslipidemia: executive summary, Atherosclerosis. 2014: 232(2):410-413. Performed By: #### 2 4331-1 ####[facility] LABCLIA [id number] [place] [address] [place] Cholesterol in VLDL [Mass/Vol] 14 mg/dL Normal <30 [facility] Comment on above: Order Comment: Speci men Type: BLOOD SPECIMENOrdering Facility: [facility] Address: [address] [place] [address] Performed By: #### 2 4331-1 ####[facility] LABCLIA [id number] [place] [address] [place] Cholesterol non HDL [Mass/Vol] 82 mg/dL Normal <130 [facility] Comment on above: Order Comment: Speci men Type: BLOOD SPECIMENOrdering Facility: [facility] Address: [address] [place] [address] Result Comment: <130 mg/dL, Optimal 130-159 mg/dL, Near optimal/above optimal 160-189 mg/dL, Borderline high 190-219 mg/dL, High >219 mg/dL, Very high Secondary prevention optimal non HDL Cholesterol levels are recommended to be <100 mg/dL Performed By: #### 2 4331-1 ####[facility] LABIA [id number] [place] [address] [place] Cholesterol.total/Chol esterol in HDL [Mass ratio] 2.52 {ratio} Normal <5.10 [facility] Comment on above: Order Comment: Speci men Type: BLOOD SPECIMENOrdering Facility: [facility] Address: [address] [place] [address] Performed By: #### 2 4331-1 ####[facility] LABIA [id number] [place] [address] [place] FASTING TIME 12 hrs Normal [facility] Comment on above: Order Comment: Speci men Type: BLOOD SPECIMENOrdering Facility: [facility] Address: [address] [place] [address] Performed By: #### 2 4331-1 ####[facility] LABIA [id number] [place] [address] [place] Triglyceride [Mass/Vol] 69 mg/dL Normal <150 [facility] Comment on above: Order Comment: Speci men Type: BLOOD SPECIMENOrdering Facility: [facility] Address: [address] [place] [address] Result Comment: <150 mg/dL, Normal 150-199 mg/dL, Borderline high 200-499 mg/dL, High >499 mg/dL, Very high Performed By: #### 2 4331-1 ####[facility] LABSETH [id number] [place] [id number] [place] CNOVon 12-24-2023 CNOV Office Visit (NEMOWS ) LOU OLIVER ([id number]) 1945 F Date Time Provider Department 12/24/23 2:45 PM ZHANE SYLVESTER During your visit today, we recorded the following information about you: Pulse Respiration Blood pressure Weight 70/minute 16/minute 110/55 59 kg Zhane Sylvester PA-C 12/24/2023 3:42 PM Signed ESTABLISHED PATIENT VISIT Last visit: 10/25/[address] Connolly Assessment and Plan: 1. Parkinson's disease, unspecified whether dyskinesia present, unspecified whether manifestations fluctuate - ICD9: 332.0, ICD10: G20.A1 (primary diagnosis) Overall, worsening per provided history with changes on exam as well including increase in muscle tone in the LUE. Patient reports does worst between 2nd and 3rd dose of Sinemet and question if higher dose (2nd dosing) is needed. Thus will attempt to increase the 11AM or 2nd dose of Sinemet as follows with no other med changes being made: Sinemet 25/100mg dose: -Take 1 tabs at 7AM (after eating something). -Take 1.5 to 2 tabs at 11AM. -Take 1.5 tabs at 3PM (after lunch). -Take 1 tabs at 7PM 2. Sinemet CR 50/200mg dose: -Take 1 tablet with your 7AM dose of short acting Sinemet. -Take 1 tablet at 11 PM. 2. 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 3. Small fiber neuropathy - ICD9: 356.9, ICD10: G62.9 Note that patient is only taking gabapentin 100mg BID. States it does alleviate discomfort secondary to neuropathy without side effect. Will continue dose. Note has not filled since late April 2023, but that Rx was for 3 tabs daily. Ranjan Connolly MD CHIEF COMPLAINT: follow up HISTORY OF PRESENT ILLNESS: Lou Oliver is a 78 year old female, There were no vitals taken for this visit. with a PMH significant for Parkinson's disease, hypertension, migraine, intracranial meningioma, hypothyroidism, anxiety. Last saw Dr. Connolly on 10/25/22 for PD. Worsening symptoms and exam. Increased 2nd dose to two tablets. PCP reached out noting patient with recent syncopal event last week. On florinef as well. Telephone encounter from PCP: I just wanted to reach out due to patient having recent syncopal episode last week -- seems to be less frequent than the bouts were previously, but I just worry about her and the fact that she resides alone. Just wanted to send you this FYI in the case her Florinef or Sinemet needed adjusted accordingly. Per patient: Patient presents with her daughter for follow-up appointment. Patient notes that she had 1 episode of syncope when she was at exercise class. Notes that she went to put on her coat when she passed out, her friend caught her and slowly lowered her to the ground. No injury required. Notes that she was out for a few minutes and then regained consciousness. No tongue biting or incontinence. No seizure-like activity. Notes this is been consistent with her previous episodes of syncope in the past, no new symptoms with this. Notes that she gets vision changes before she passes out, experiences some tunnel vision. Symptoms if she sits down and puts her head between her legs this will resolve within seconds. Notes most of her episodes of lightheadedness occur from 3 PM to 7 PM or when she is active during her exercise class. Notes that she has improved her water intake and drinks her Jefferson flask 2-3 times a day. She does wear compression socks regularly but is unsure if it has been beneficial for her lightheadedness. Did have increase in her Sinemet to 2 tablets at 11 AM and notes significant benefit with this. However this is also around the time where she has had increased in her lightheadedness. She feels the benefit of the increase in Sinemet outweighs the lightheaded risk and would like to further treat the lightheadedness. Sleep is stable, physical activity is stable. No new concerns today. REVIEW OF SYSTEMS GENERAL:No weight loss, malaise or fevers. HEENT:Negative for frequent or significant headaches, No changes in hearing or vision, no nose bleeds or other nasal problems NECK:Negative for lumps, goiter, pain and significant neck swelling RESPIRATORY: Negative for cough, wheezing or shortness of breath. CARDIOVASCULAR: Negative for chest pain, leg swelling or palpitations. GASTROINTESTINAL: Negative for abdominal discomfort, blood in stools or black stools or change in bowel habits GENITOURINARY: No history of dysuria, frequency or incontinence MUSCULOSKELETAL: Negative for joint pain or swelling, back pain or muscle pain. NEUROLOGIC:Negative for focal numbness or weakness, headaches and dizziness or syncope, vision changes, speech/languag changes - EXCEPT that as per HPI above. SKIN:Negative for lesions, rash, and itching. PSYCHIATRIC: Negative for sleep disturbance, mood disorder and recent psychosocial stressors. HEMATOLOGIC/LYMPHATIC/ IMM (more content not included)... [facility] ([id number]) 1945 F Date Time Provider Department 12/10/23 SILVANO VANCE [facility] During your visit today, we recorded the following information about you: Robina Quijano LPN 12/10/2023 9:04 AM Signed Last appt: 12/02/23 Pt calls to report that provider wanted pt to see neurology(pt's bp running low-pt passing out). Pt reports she had an appt with neuro for 12/04 but was unable to go to appt because of transportation. Pt reports appt was rescheduled for 12/23. Pt is asking if it is ok to wait until 12/23 for appt with neuro. Pt is also asking is she does wait until then if any of her meds need changed while she is waiting. Please review and advise. ALEXIS Ahmadi Rachel, PA-C 12/11/2023 2:43 PM Signed Please call patient and let her know I'm okay with that if she doesn't feel she needs seen sooner. How are her Bps at home? LUIS MANUEL Hernandez LPN, Kim E 12/11/2023 2:57 PM Signed BP at home average: 110/ 50. Patient says the bottom number has been low. please advise. Patient does note that she is dizzy and wanted to know if it could be meds or just BP or both? Silvano Peacock LPN, PA-C 12/13/2023 3:05 PM Signed Please call patient and let her know it could be, but could also be Parkinson's or be associated meds related. Would she feel comfortable seeing me sooner? If she is really feeling bad she can be evaluated in the urgent care or ER in the interim. LUIS MANUEL Hernandez LPN, Kim E 12/13/2023 3:13 PM Signed Patient is continuing to monitor BP and is thinking it maybe it is the gabapentin, not sure? Patient will be calling in next week to let us know how she is doing, but she is wanting to wait until she sees Zhane. Please review. Leia Ceja LPN Allergies As of Date: 12/10/2023 Noted Allergy Reaction SULFA (SULFONAMIDE ANTIBIOTICS) 10/26/2005 4 - Hives Date Reviewed: 12/02/2023 Reviewed by: Leia Ceja LPN - Fully Assessed Reason for Visit: appointment question [Other] Prescriptions as of 12/24/2023 - pravastatin (PRAVACHOL) 20 mg tablet Take 1 tablet by mouth daily at bedtime. - lidocaine (LIDODERM) 5 % Apply 2 Patches as directed once daily. Remove patch after 12 hours. - pantoprazole DR (PROTONIX) 40 mg tablet Take 1 tablet by mouth once daily. On empty stomach at least 30 minutes before eating. - carbidopa-levodopa CR (SINEMET CR) 50-200 mg per tablet TAKE 1 TABLET BY MOUTH in Morning and before bedtime as instructed. - carbidopa-levodopa (SINEMET) 25-100 mg per tablet Take 1 tab at 7AM, 1.5 to 2 tabs at 11AM, 1.5 tabs at 3PM and 1 tab at 7PM. - gabapentin (NEURONTIN) 100 mg capsule Take 1 capsule by mouth two times a day for 180 days. - fludrocortisone (FLORINEF) 0.1 mg tablet take 1 tablet by mouth every day - ondansetron orally disintegrating (ZOFRAN ODT) 4 mg disintegrating tablet Take 1 tablet by mouth every 6 hours as needed for nausea/vomiting. - LORazepam (ATIVAN) 0.5 mg Take by mouth. - levothyroxine (SYNTHROID) 75 mcg tablet Take 1 tablet by mouth once daily. Take on empty stomach. For Thyroid - sertraline (ZOLOFT) 100 mg tablet Take 1 tablet by mouth once daily. - Cholecalciferol, Vitamin D3, 50 mcg (2,000 unit) cap Take 2,000 Units by mouth once daily. - diclofenac sodium (VOLTAREN) 1 % topical gel APPLY 2 GRAMS TO AFFECTED AREA 4 TIMES A DAY - docusate sodium (COLACE ORAL) Take by mouth as needed. Problem List As Of Date 12/10/2023 Noted Resolved Essential hypertension, benign [I10] 04/04/2007 Hypothyroidism [E03.9] 04/04/2007 COMMON MIGRAINE [346.1] 04/04/2007 Anxiety state [F41.1] 04/04/2007 Mixed hyperlipidemia [E78.2] 10/26/2009 Pes anserinus bursitis of left knee [M70.52] 10/29/2013 Left knee pain [M25.562] 10/29/2013 Cervical spondylosis without myelopathy [M47.81*05/18/2020 Parkinson disease (HCC) [G20.A1] 07/18/2020 Spinal stenosis of cervical region [M48.02] 07/18/2020 Intracranial meningioma (HCC) [D32.0] 07/18/2020 Palpitations [R00.2] 10/03/2020 Shortness of breath [R06.02] 10/03/2020 Tachycardia [R00.0] 06/12/2021 Neck pain [M54.2] 04/09/2023 Neck muscle weakness [M53.82] 04/09/2023 Encounter Status:Closed by ROBINA [facility]ANO [facility] ([id number]) 1945 F Date Time Provider Department 12/03/23 RANJAN CONNOLLY JR During your visit today, we recorded the following information about you: Paula Quiroz LPN 12/03/2023 7:07 AM Signed ----- Message ----- From: Silvano Vance PA-C Sent: 12/02/2023 12:23 PM EST To: Zhane Sylvester PA-C; Ranjan Connolly Jr., MD Ia! I just wanted to reach out due to patient having recent syncopal episode last week -- seems to be less frequent than the bouts were previously, but I just worry about her and the fact that she resides alone. Just wanted to send you this FYI in the case her Florinef or Sinemet needed adjusted accordingly. Paula Quiroz LPN 12/03/2023 7:07 AM Signed Please try to get pt in with me, or Alberto RIVERA. Also would advise PCP office that it might be best she again have an event monitor. MD Jovanna Reagan Jessica, LPN 12/03/2023 9:49 AM Signed Pt scheduled. Paula Quiroz LPN Allergies As of Date: 12/03/2023 Noted Allergy Reaction SULFA (SULFONAMIDE ANTIBIOTICS) 10/26/2005 4 - Hives Date Reviewed: 12/02/2023 Reviewed by: Leia Ceja LPN - Fully Assessed Reason for Visit: Appointment [186] Prescriptions as of 12/03/2023 - pravastatin (PRAVACHOL) 20 mg tablet Take 1 tablet by mouth daily at bedtime. - lidocaine (LIDODERM) 5 % Apply 2 Patches as directed once daily. Remove patch after 12 hours. - pantoprazole DR (PROTONIX) 40 mg tablet Take 1 tablet by mouth once daily. On empty stomach at least 30 minutes before eating. - carbidopa-levodopa CR (SINEMET CR) 50-200 mg per tablet TAKE 1 TABLET BY MOUTH in Morning and before bedtime as instructed. - carbidopa-levodopa (SINEMET) 25-100 mg per tablet Take 1 tab at 7AM, 1.5 to 2 tabs at 11AM, 1.5 tabs at 3PM and 1 tab at 7PM. - gabapentin (NEURONTIN) 100 mg capsule Take 1 capsule by mouth two times a day for 180 days. - fludrocortisone (FLORINEF) 0.1 mg tablet take 1 tablet by mouth every day - ondansetron orally disintegrating (ZOFRAN ODT) 4 mg disintegrating tablet Take 1 tablet by mouth every 6 hours as needed for nausea/vomiting. - LORazepam (ATIVAN) 0.5 mg Take by mouth. - levothyroxine (SYNTHROID) 75 mcg tablet Take 1 tablet by mouth once daily. Take on empty stomach. For Thyroid - sertraline (ZOLOFT) 100 mg tablet Take 1 tablet by mouth once daily. - Cholecalciferol, Vitamin D3, 50 mcg (2,000 unit) cap Take 2,000 Units by mouth once daily. - diclofenac sodium (VOLTAREN) 1 % topical gel APPLY 2 GRAMS TO AFFECTED AREA 4 TIMES A DAY - docusate sodium (COLACE ORAL) Take by mouth as needed. Problem List As Of Date 12/03/2023 Noted Resolved Essential hypertension, benign [I10] 04/04/2007 Hypothyroidism [E03.9] 04/04/2007 COMMON MIGRAINE [346.1] 04/04/2007 Anxiety state [F41.1] 04/04/2007 Mixed hyperlipidemia [E78.2] 10/26/2009 Pes anserinus bursitis of left knee [M70.52] 10/29/2013 Left knee pain [M25.562] 10/29/2013 Cervical spondylosis without myelopathy [M47.81*05/18/2020 Parkinson disease (HCC) [G20.A1] 07/18/2020 Spinal stenosis of cervical region [M48.02] 07/18/2020 Intracranial meningioma (HCC) [D32.0] 07/18/2020 Palpitations [R00.2] 10/03/2020 Shortness of breath [R06.02] 10/03/2020 Tachycardia [R00.0] 06/12/2021 Neck pain [M54.2] 04/09/2023 Neck muscle weakness [M53.82] 04/09/2023 Encounter Status:Closed by PAULA QUIROZ on 12/03/23 [facility] CNOVon 12-02-2023 CNOV Office Visit (INTMWS ) LOU OLIVER ([id number]) 1945 F Date Time Provider Department 12/02/23 11:00 AM SILVANO VANCE INTMWS During your visit today, we recorded the following information about you: Temperature Pulse Respiration Blood pressure 97.1 degrees 80/minute 12/minute 130/62 Weight Height 59.9 kg 1.626 m Leia Ceja LPN 12/02/2023 11:10 AM Signed Eye doctor is , [facility] due in December for appt Silvano Vance PA-C 12/02/2023 12:24 PM Signed CC: Patient presents with: Follow Up: 3 month follow up, passed out at exercise class on 11/27/23 [facility] Lou Oliver is a 78 year old female who presents today for 3 month f/u for routine issues and to discuss labs. LV was with Aminata Royal CNP on 08/12/23. At that time, pt was referred to speech language pathologist and GI for dysphagia and had cookie swallow performed, as well as EGD performed on 11/29/23. Pt reports that they had to perform dilatation to stretch my esophagus. Notices that the globus sensation is much improved, and she has not had any GERD symptoms since before her procedure. Syncope/hypotension: Patient would also like to discuss recent episode of syncope that occurred at her parkinsons exercise class on 11/27/2023. [place] like she was lightheaded prior to. Her friend was helping with her coat at the time so she caught her and lowered her to the floor. She was told she was out for a minute or two. Denies any injury to head on the way down. Her therapist took her BP following the incident and one of the numbers was 60. Previously had her Florinef adjusted d/t episodes of hypotension, so she's currently taking one .1 mg florinef daily. She does live alone, with her daughters coming and going to check in on her. She uses her cane or walker to get around. Typically notices when the lightheadedness comes on, so she can sit back down if she starts to acknowledge this feeling. Pt reports that she hasn't been checking her BP very often because she thought it was stable recently. Had 3 other episodes (two at home ,one at [facility])- but they have not occurred since before . My balance has been really bad lately. Reports she spoke to Dr. Connolly about this, and he has been adjusting her medication (Sinemet) Her last appt was w/ Dr. Connolly on 10/24/23- at that time, he increased Sinemet. She will be seeing him again 12/24/23. Also having more rigidity in left arm and progression of tremors. Also notes having had COVID twice within a short period of time (once in August, again in September). Feeling improved at this point in time. Cervical spondylosis: Had radiofrequency ablation in 10/[address] Jak Diaz, and she notes that her cervicalgia is about 50% better at ths time. Hyperlipidemia: Ms. Oliver reports that she discontinued her pravastatin 8-9 months d/t acid-reflux symptoms. Her most recent lipid panels are: Cholesterol, Total (mg/dL) Date Value 11/11/2023 216 03/08/2021 193 12/15/2018 185 HDL Cholesterol (mg/dL) Date Value 11/11/2023 56 03/08/2021 71 12/15/2018 45 LDL Cholesterol (mg/dL) Date Value 11/11/2023 142 03/08/2021 108 12/15/2018 111 Triglyceride (mg/dL) Date Value 11/11/2023 92 03/08/2021 71 12/15/2018 144 The 10-year ASCVD risk score (Lia BAUTISTA, et al., 2019) is: 20.3% Values used to calculate the score: Age: 78 years Sex: Female Is Non- : No Diabetic: No Tobacco smoker: No Systolic Blood Pressure: 130 mmHg Is BP treated: No HDL Cholesterol: 56 mg/dL Total Cholesterol: 216 mg/dL REVIEW OF SYSTEMS See HPI All other systems negative. PAST MEDICAL HISTORY Diagnosis Date Diverticulosis of colon (without mention of hemorrhage) Essential hypertension, benign 04/04/2007 Mental disorder Migraine without aura 04/04/2007 Parkinson disease Unspecified hypothyroidism 04/04/2007 PAST SURGICAL HISTORY Procedure Laterality Date DELIVERY ONLY , low cervical x2 COLONOSCOPY FLX DX W/COLLJ SPEC WHEN PFRMD 1994 Colonoscopy COLONOSCOPY FLX DX W/COLLJ SPEC WHEN PFRMD 04/07/2012 Colonoscopy COLONOSCOPY FLX DX W/COLLJ SPEC WHEN PFRMD 06/17/2019 Colonoscopy DILATION AND CURETTAGE DXAND/THER NONOBSTETRIC 09/1982 Dilation AND curettage PAST SURGICAL HISTORY OF 02/1996 EMB TONSILLECTOMY AND ADENOIDECTOMY T/A (under age 12 years) ALLERGIES Sulfa (Sulfonamide Antibiotics) MEDICATIONS lidocaine (LIDODERM) 5 % Apply 2 Patches as directed once daily. Remove patch after [address] (PROTONIX) 40 mg tablet Take 1 tablet by mouth once daily. On empty stomach at least 30 minutes before eating. carbidopa-levodopa CR (SINEMET CR) 50-200 mg per tablet TAKE 1 TABLET BY MOUTH in Morning and before bedtime as instructed. carbidopa-levodopa (SINEMET) 25-100 mg per ta (more content not included)... Normal [facility] ANES POSTPROC EVALon 024 ANES POSTPROC EVAL HNO ID: [id number] Author: ROYA ULRICH DO Service: Anesthesiology Author Type: Physician Type: Anesthesia Postprocedure Evaluation Filed: 11/29/2023 11:35 Note Text: POST ANESTHESIA EVALUATION NOTE : 1945 Procedure Summary Date: 11/29/23 Room / Location: [place] [facility] Anesthesia Start: 1011 Anesthesia Stop: 1034 Procedure: EGD DIAGNOSTIC Diagnosis: Dysphagia, unspecified type Abnormal findings on diagnostic imaging of digestive system (Dysphagia) Scheduled Providers: Ravi Allen MD Responsible Provider: Roya Ulrich DO Anesthesia Type: MAC ASA Status: 3 Anesthesia Type: MAC Last Vitals Vitals Value Taken Time BP 105/88 11/29/23 1047 Temp 36.4 ?C (97.5 ?F) 11/29/23 1032 Pulse 69 11/29/23 1047 Resp 20 11/29/23 1047 SpO2 97 % 11/29/23 1047 Post Anesthesia Patient Status Patient Evaluation: PACU. PACU/ICU Patient Condition: stable. Anticipated Disposition: phase 2 then home. Neurological Status: sleepy but arousable. Pulmonary Status: breathing comfortably on supplemental oxygen Airway Control: returned to baseline unsupported. Cardiovascular Status: stable. Pain Management: clinically adequate Postoperative Hydration: acceptable. Intraoperative Events: no significant anesthesia events Post Operative Nausea/Vomiting Status: no significant post operative nausea or vomiting Recommendation: continue current plan of care. Anesthesia Observations No Documentation SIGNATURE: Roya Ulrich DO PATIENT NAME: Lou Oliver DATE: November 29, 2023 TIME: 11:35 AM CSN: [id number] Normal [facility] ANES PRE-OPon 11-29-2023 ANES PRE-OP HNO ID: [id number] Author: ROYA ULRICH DO Service: Anesthesiology Author Type: Physician Type: Anesthesia Preprocedure Evaluation Filed: 11/29/2023 10:03 Note Text: ANESTHESIOLOGY DAY OF SURGERY NOTE : 1945 Procedure Information Date/Time: 11/29/23 1000 Scheduled providers: Ravi Allen MD Procedure: EGD DIAGNOSTIC Location: [facility] Estimated body mass index is 22.14 kg/m? as calculated from the following: Height as of 11/19/23: 162.6 cm (5' 4 ). Weight as of 11/19/23: 58.5 kg (129 lb). Most recent hematocrit and potassium results: Hematocrit 36.2 11/11/2023 Potassium 4.2 11/11/2023 Relevant Problems CARDIO (+) Essential hypertension, benign (+) Migraine without aura ENDO (+) Hypothyroidism NEURO-PSYCH (+) Migraine without aura PULMONARY (+) Shortness of breath I - PHYSICAL EVALUATION AIRWAY Patient intubated: No. Tracheostomy tube not present Mallampati: III. TM distance: >3 FB. Neck ROM: limited extension. Mouth opening: adequate. Short neck: no. Thick neck: no DENTAL Dental findings: teeth intact. Additional exam findings: no II - ANESTHESIA PLAN ASA Score: 3 Anesthetic Plan: MAC The patient is not a current smoker. NPO Status: adequate Beta Jonny Monitoring Plan Monitoring plan: standard ASA. Post Procedure Analgesic Plan Postoperative analgesic plan: multimodal analgesia and parenteral or oral opioids. Patient / Surrogate agrees to blood products: blood products not planned Significant changes in the patient condition since the History and Physical, not otherwise documented in primary service progress note: no. Potential Anesthesia issues that may suggest increased risk of complications or contraindication to planned procedure: none. Vitals Value Taken Time BP Pulse 71 11/29/23932 Resp 11 11/29/23932 Temp 36.7 ?C (98 ?F) 11/29/23932 SpO2 97 % 11/29/23932 Outpatient Medications as of 11/29/2023 Medication Sig - pantoprazole DR (PROTONIX) 40 mg tablet Take 1 tablet by mouth once daily. On empty stomach at least 30 minutes before eating. - carbidopa-levodopa CR (SINEMET CR) 50-200 mg per tablet TAKE 1 TABLET BY MOUTH in Morning and before bedtime as instructed. - carbidopa-levodopa (SINEMET) 25-100 mg per tablet Take 1 tab at 7AM, 1.5 to 2 tabs at 11AM, 1.5 tabs at 3PM and 1 tab at 7PM. (Patient taking differently: Take 1 tab at 7AM, 2 tabs at 11AM, 1.5 tabs at 3PM and 1 tab at 7PM.) - gabapentin (NEURONTIN) 100 mg capsule Take 1 capsule by mouth two times a day for 180 days. - fludrocortisone (FLORINEF) 0.1 mg tablet take 1 tablet by mouth every day - ondansetron orally disintegrating (ZOFRAN ODT) 4 mg disintegrating tablet Take 1 tablet by mouth every 6 hours as needed for nausea/vomiting. - LORazepam (ATIVAN) 0.5 mg Take by mouth. - levothyroxine (SYNTHROID) 75 mcg tablet Take 1 tablet by mouth once daily. Take on empty stomach. For Thyroid - sertraline (ZOLOFT) 100 mg tablet Take 1 tablet by mouth once daily. - Cholecalciferol, Vitamin D3, 50 mcg (2,000 unit) cap Take 2,000 Units by mouth once daily. - docusate sodium (COLACE ORAL) Take by mouth as needed. - lidocaine (LIDODERM) 5 % Apply 2 Patches as directed once daily. Remove patch after 12 hours. - diclofenac sodium (VOLTAREN) 1 % topical gel APPLY 2 GRAMS TO AFFECTED AREA 4 TIMES A DAY Facility-Administered Medications as of 11/29/2023 Medication Dose Route Frequency - lactated ringers iv infusion 30 mL/hr INTRAVENOUS CONTINUOUS I have interviewed and examined the patient. I have reviewed the medical record and/or the pre-anesthesia evaluation, pertinent labs, and test results. This contains updated information obtained within 48 hours of Surgery/Procedure. SIGNATURE: Roya Ulrich DO PATIENT NAME: Lou Oliver DATE: November 29, 2023 TIME: 10:03 AM CSN: [id number] Normal [facility] EGD Study observation Narrat iveon 11-29-2023 [facility] SURGICAL PATHOLOGYon 024 CASE REPORT Normal [facility] Comment on above: Order Comment: Speci men Type: TISSUE SPECIMENOrdering Facility: [facility] Address: [address] [place] [address] Result Comment: Surg ica Pathology Report Case: [id number] Authorizing Provider: Ravi Allen MD Collected: 11/29/2023 10:25 AM Ordering Location: [facility] Received: 12/02/2023 01:46 PM Pathologist: Gisselle Lopez MD Specimen: STOMACH BIOPSY, r/o h pylori Performed By: #### S ####[facility] LABORATORY[facility]IA [id number] [address] [place] FINAL DIAGNOSIS Normal [facility] Comment on above: Order Comment: Musa [place] Type: TISSUE SPECIMENOrdering Facility: [facility] Address: [address] [place] [address] Result Comment: Stom ach, biopsies: - Minimal chronic gastritis. Negative for morphologic features of Helicobacter pylori on routine staining. Performed By: #### S ####[facility]ORATORYCLIA [id number] [address] FINAL PERFORMING LAB Normal [facility] Comment on above: Order Comment: Speci men Type: TISSUE SPECIMENOrdering Facility: [facility] Address: [address] [place] [address] Result Comment: Diag nostic interpretation performed at [facility], [address] [place] [address] CLIA# [id number] Automatic Folder Seamer: Gerhard Willis M.D. Performed By: #### S ####[facility]ORATORYCLIA [id number] [address] GROSS DESCRIPTION Normal [facility] Comment on above: Order Comment: Speci men Type: TISSUE SPECIMENOrdering Facility: [facility] Address: [address] [place] [address] Result Comment: A. S TOMACH BIOPSY Received in formalin labeled stomach biopsy are multiple lilly soft segments of tissue aggregating to 0.7 x 0.4 x 0.1 cm. The specimens are totally submitted in formalin in 1 cassette. Gross examination performed at [facility], [address] [place] [address] KVB December 02, 2023 2:22 PM Performed By: #### S ####[facility]ATORYCLIA [id number] [address] Upper GI endoscopyon 024 Upper GI endoscopy [facility] Gastrointestinal Endoscopy Patient Name: Lou Oliver Procedure Date: 11/29/2023 9:44 AM Date of : 1945 Admit Type: Outpatient Room: [place] [address] Gender: Female Note Status: Finalized Attending MD: Ravi Allen MD, [id number] Procedure: Upper GI endoscopy Indications: Dysphagia, Heartburn Providers: Ravi Allen MD Patient Profile: This is a 78 year old female. Refer to note in patient chart for documentation of history and physical. Referring Physician: Era (pa) Kalka (Referring MD) Medicines: Monitored Anesthesia Care Complications: No immediate complications. Procedure: Pre-Anesthesia Assessment: - Prior to the procedure, a History and Physical was performed, and patient medications and allergies were reviewed. The patient's tolerance of previous anesthesia was also reviewed. The risks and benefits of the procedure and the sedation options and risks were discussed with the patient. All questions were answered, and informed consent was obtained. Prior Anticoagulants: The patient has taken no anticoagulant or antiplatelet agents. ASA Grade Assessment: II - A patient with mild systemic disease. After reviewing the risks and benefits, the patient was deemed in satisfactory condition to undergo the procedure. After obtaining informed consent, the endoscope was passed under direct vision. Throughout the procedure, the patient's blood pressure, pulse, and oxygen saturations were monitored continuously. The Endoscope was introduced through the mouth, and advanced to the second part of duodenum. I was present and participated during the entire procedure, including non-cool portions, and during the administration and monitoring of Moderate Sedation. The upper GI endoscopy was accomplished without difficulty. The patient tolerated the procedure well. Moderate Sedation: Exam was performed under monitored anesthesia care (MAC) Findings: The examined esophagus was mildly tortuous. The Z-line was regular and was found 39 cm from the incisors. A non-obstructing and mild Schatzki ring was found in the lower third of the esophagus. A TTS dilator was passed through the scope. Dilation with a 15-16.5-18 mm balloon dilator was performed to 18 mm. The dilation site was examined following endoscope reinsertion and showed no change. Estimated blood loss was minimal. The entire examined stomach was normal. Biopsies were taken with a cold forceps for Helicobacter pylori testing. Verification of patient identification for the specimen was done. Estimated blood loss was minimal. The examined duodenum was normal. Estimated Blood Loss: Estimated blood loss: none. Impression: - Tortuous esophagus. - Z-line regular, 39 cm from the incisors. - Non-obstructing and mild Schatzki ring. Dilated. - Normal stomach. Biopsied. - Normal examined duodenum. Recommendation: - Discharge patient to home. - Resume previous diet. - Continue present medications. - Await pathology results. Procedure Code(s): --- Professional --- 55247, Esophagogastroduodenos copy, flexible, transoral; with transendoscopic balloon dilation of esophagus (less than 30 mm diameter) 23504, 59, Esophagogastroduodenos copy, flexible, transoral; with biopsy, single or multiple --- Technical --- 17271, Esophagogastroduodenos copy, flexible, transoral; with transendoscopic balloon dilation of esophagus (less than 30 mm diameter) 57583, 59, Esophagogastroduodenos copy, flexible, transoral; with biopsy, single or multiple Diagnosis Code(s): --- Professional --- Q39.9, Congenital malformation of esophagus, unspecified K22.2, Esophageal obstruction R13.10, Dysphagia, unspecified R12, Heartburn --- Technical --- Q39.9, Congenital malformation of esophagus, unspecified K22.2, Esophageal obstruction R13.10, Dysphagia, unspecified R12, Heartburn CPT copyright 2020 [employer]. All rights reserved. The codes documented in this report are preliminary and upon antique furniture repairer review may be revised to meet current compliance requirements. Attending Participation: I personally performed the entire procedure. Scope In: 10:16:08 AM Scope Out: 10:24:34 AM MD Ravi Seymour MD 11/29/2023 10:37:50 AM This report has been signed electronically by Ravi Allen MD Number of Addenda: 0 Note Initiated On: 11/29/2023 9:44 AM Normal [facility] CNOVon 11-28-2023 CNOV Office Visit (SPAGWO ) LOU OLIVER ([id number]) 1945 F Date Time Provider Department 11/28/23 1:00 PM JAK DIAZ During your visit today, we recorded the following information about you: Pulse Respiration 86/minute 16/minute Jak Diaz MD 11/28/2023 1:23 PM Signed [facility] Today's Date: 11/28/2023 Last visit: 07/04/2023 08/13/2023 , 08/28/2023 , 10/31/2023 Name: Lou Oliver : 1945 Purpose: Follow-up Patient Evaluation - This is an established patient, returning today for continued evaluation and management of the chief complaint noted below Chief complaint: neck pain Referring Clinician: Marvel Rizzo MD Pertinent Past Medical History: Migraine, Lt. Knee pain, Parkinson disease, Neck pain, Intracranial meningioma, HTN, HLD, Tachycardia, Hypothyroidism, Cervical spondylosis, Anxiety, Pes anserinus bursitis of left knee, Neck muscle weakness, Spinal stenosis of cervical region, Pertinent Past Surgeries: none 08/13/2023 - Lou Oliver is a 78 year old female seen for 08/07/23 #1.Medial Branch Block (Diagnostic only, NO STEROIDS) under fluoroscopic guidance BILATERAL at C4-5 and C5-6 Pain level today: 2/10 Pain Intensity 0 - I have no pain at the moment Personal Care (Washing/Dressing) 0 - I can look after myself normally without causing extra pain Lifting 2 - Pain prevents me from lifting heavy weights off the floor, but I can manage if conveniently positioned (e.g. on a table) Walking 4 - Pain prevents me from walking more than 100 yards Sitting 3 - Pain prevents me from sitting more than 1/2 hour Standing 4 - Pain prevents me from standing more than 10 minutes Sleeping 0 - Pain does not prevent me from sleeping well Sex Life 0 - My sex life is normal and causes no pain Social Life 3 - Pain has restricted my social life and I do not go out as often Traveling 5 - Pain prevents me from traveling except to receive treatment Total Score 21 Interpretation 21% - 40% - moderate disability PLAN: Keep appointment for #2 Medial Branch Block (Diagnostic only, NO STEROIDS) under fluoroscopic guidance BILATERAL SIDES at C4-5 and C5-6 08/28/2023 - Lou Oliver is a 78 year old female seen for neck pain, pain score 2/10 She had a second cervical medial branch block on 08/26/[address] Diaz that is helped the pain here by 90% for 6-10 hours. During this time she was able to walk, move her head and even go to the sore and carry groceries. She has not sustained relief. She is wondering about the RFA. PLAN: We will plan on the bilateral C4/5 5/6 RFA for the long lasting mechanical neck pain. She has had 2 + MBB 10/31/2023 DH - Lou Oliver is a 78 year old female seen for after RFA. Patient states she received 50% relief at least from the radiofrequency ablation for her neck. Patient had this procedure done 10/02/2023 from C4-C6. Patient stating it is hard for her to say the amount of relief that may be more than that but she has COVID. Patient stating this is the second time she has had COVID in the last few months. Patient states that she is just achy all over. Patient also states that she feels her Parkinson's will cause her to tense up and that will make her neck pain worse. But overall she does feel that the ablation did help with her symptoms. Date Procedure relief 10/02/2023 B/L RFA C4-C6 50% PLAN: Pt will continue current activity as tolerated Follow up in 5 months Pt is to call if pain level increases and is no longer managed Plan at last visit: Lou Oliver would benefit from the following to reach personal goals for decreasing pain, improving function and work participation, and/or improving quality of life: -Interventional Procedure: Medial branch blocks bilateral C4-5,5-6 under fluoroscopic guidance x 2, RFA if positive x 2 Medication(s): Ibuprofen Gel Caps 400mg BID PRN (prefer smaller pills given issues swallowing, but Mobic contraindicated due to Sulfa allergy) Functional Shinto: No changes-continue current regimen Depending on response to the above plan, consider: RFA -Follow-up: 3 months Interval History: Overall pain and functional disability since last visit: Worse New Complaints since last visit: No She reports that her neck pain overall has been better since the ablation. However, on days when her Parkinson's symptoms are flared-up (like today), she has severe pain in her neck. Her family notes that she is sitting more upright most days. She also finds that her pain worsens as the day progresses, typically after 430pm. She reports her Dopaminergic medications are being adjusted by her Parkinson's doctor. Pain Descriptio (more content not included)... Normal [facility] CNCOon 11-19-2023 CNCO Letter Text Normal [facility] CNOVon 11-19-2023 CNOV Office Visit (GSTNOR ) LOU OLIVER ([id number]) 1945 F Date Time Provider Department 11/19/23 1:25 PM ERA GAGNON GSTNOR During your visit today, we recorded the following information about you: Pulse Blood pressure Weight Height 69/minute 98/62 58.5 kg 1.626 m Era Gagnon PA-C 11/19/2023 2:15 PM Signed CHIEF COMPLAINT: Patient presents with: Trouble swallowing: Barium swallow 09/17/23. Has the most trouble swallowing water. Acid reflux concerns. HPI: Accompanied by daughter Lou Oliver is a 78 year old female with PMHx positive for Parkinson's who presents for Trouble swallowing (Barium swallow 09/17/23. Has the most trouble swallowing water. Acid reflux concerns.). Admits to chronic sx of dysphagia since dx of Parkinson's. Feels as though sx have worsened recently. Notes sensations of dysphagia in mid-esophagus with solids. Bms are daily, chronically constipated, no blood/black coloring, drinking more water helps sx. Takes Colace PRN with relief. Regular bloating, no identifiable triggers. Unintentional weight loss of 5 lbs in the past month. Takes excedrin 3x per month for migraines. Colon 2018 Impression: - Diverticulosis in the sigmoid colon and in the transverse colon. - Non-bleeding external and internal hemorrhoids. - No specimens collected. Cookie swallow 08/2023 Impression: 1. No evidence of aspiration 2. There appears to be marked narrowing of the distal esophagus or gastroesophageal junction. Formal esophagram recommended 3. See Speech and Hearing therapist report for further evaluation Component Latest Ref Rng AND Units 11/11/2023 WBC 3.70 - 11.00 k/uL 4.13 RBC 3.90 - 5.20 m/uL 3.79 (L) Hemoglobin 11.5 - 15.5 g/dL 11.6 Hematocrit 36.0 - 46.0 % 36.2 MCV 80.0 - 100.0 fL 95.5 MCH 26.0 - 34.0 pg 30.6 MCHC 30.5 - 36.0 g/dL 32.0 RDW-CV 11.5 - 15.0 % 12.8 Platelet Count 150 - 400 k/uL 240 MPV 9.0 - 12.7 fL 10.1 Absolute nRBC <0.01 k/uL <0.01 Glucose 74 - 99 mg/dL 101 (H) BUN 7 - 21 mg/dL 24 (H) Creatinine 0.58 - 0.96 mg/dL 0.66 Sodium 136 - 144 mmol/L 142 Potassium 3.7 - 5.1 mmol/L 4.2 Chloride 97 - 105 mmol/L 105 CO2 22 - 30 mmol/L 29 Anion Gap 9 - 18 mmol/L 8 (L) Calcium 8.5 - 10.2 mg/dL 9.4 eGFR >=60 mL/min/1.73mA? 90 TSH 0.270 - 4.200 mIU/L 2.390 Record Review: [facility] / Outside records reviewed. PAST MEDICAL HISTORY Diagnosis Date - Diverticulosis of colon (without mention of hemorrhage) - Essential hypertension, benign 04/04/2007 - Mental disorder - Migraine without aura 04/04/2007 - Parkinson disease - Unspecified hypothyroidism 04/04/2007 PAST SURGICAL HISTORY Procedure Laterality Date - DELIVERY ONLY , low cervical x2 - COLONOSCOPY FLX DX W/COLLJ SPEC WHEN PFRMD 1994 Colonoscopy - COLONOSCOPY FLX DX W/COLLJ SPEC WHEN PFRMD 04/07/2012 Colonoscopy - COLONOSCOPY FLX DX W/COLLJ SPEC WHEN PFRMD 06/17/2019 Colonoscopy - DILATION AND CURETTAGE DXAND/THER NONOBSTETRIC 09/1982 Dilation AND curettage - PAST SURGICAL HISTORY OF 02/1996 EMB - TONSILLECTOMY AND ADENOIDECTOMY T/A (under age 12 years) Allergies: ALLERGIES Allergen Reactions - Sulfa (Sulfonamide * Hives Medications: - carbidopa-levodopa CR (SINEMET CR) 50-200 mg per tablet TAKE 1 TABLET BY MOUTH in Morning and before bedtime as instructed. - carbidopa-levodopa (SINEMET) 25-100 mg per tablet Take 1 tab at 7AM, 1.5 to 2 tabs at 11AM, 1.5 tabs at 3PM and 1 tab at 7PM. - gabapentin (NEURONTIN) 100 mg capsule Take 1 capsule by mouth two times a day for 180 days. - fludrocortisone (FLORINEF) 0.1 mg tablet take 1 tablet by mouth every day - ondansetron orally disintegrating (ZOFRAN ODT) 4 mg disintegrating tablet Take 1 tablet by mouth every 6 hours as needed for nausea/vomiting. - LORazepam (ATIVAN) 0.5 mg Take by mouth. - levothyroxine (SYNTHROID) 75 mcg tablet Take 1 tablet by mouth once daily. Take on empty stomach. For Thyroid - sertraline (ZOLOFT) 100 mg tablet Take 1 tablet by mouth once daily. - Cholecalciferol, Vitamin D3, 50 mcg (2,000 unit) cap Take 2,000 Units by mouth once daily. - diclofenac sodium (VOLTAREN) 1 % topical gel APPLY 2 GRAMS TO AFFECTED AREA 4 TIMES A DAY - docusate sodium (COLACE ORAL) Take by mouth as needed. - pravastatin (PRAVACHOL) 20 mg tablet TAKE 1 TABLET BY MOUTH EVERYDAY AT BEDTIME - THERAPEUTIC MULTIVITAMIN TAB Take by mouth. 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 Normal [facility] 25(OH)D3 SerPl-mCncon 2023 25-hydroxyvitamin D3 [Mass/Vol] 39.0 ng/mL Normal 31.0-80.0 [facility] Comment on above: Order Comment: Speci men Type: BLOOD SPECIMENOrdering Facility: [facility] Address: [address] [place] [address] Result Comment: Clas sification of 25 OH Vitamin D status: Deficiency/Insufficiency: < or = 30 ng/ml. Sufficiency/Optimal Levels: 31-80 ng/mL Toxicity: > 100 ng/mL. Test performed by chemiluminescent immunoassay. Performed By: #### 1 989-3 ####[facility] LABIA [id number] [place] [address] [place] Basic metabolic 2000 panelon 11-11-2023 Anion gap [Moles/Vol] 8 mmol/L Low 9-18 [facility] Comment on above: Order Comment: Speci men Type: BLOOD SPECIMENOrdering Facility: [facility] Address: [address] [place] [address] Performed By: #### 3 024-7, 3016-3, 29509-7, 45843-1 ####[facility] LABIA [id number] [place] [address] [place] Calcium [Mass/Vol] 9.4 mg/dL Normal 8.5-10.2 [facility] Comment on above: Order Comment: Speci men Type: BLOOD SPECIMENOrdering Facility: [facility] Address: [address] [place] [address] Performed By: #### 3 024-7, 3016-3, 45169-9, 00870-7 ####[facility] LABIA [id number] [place] [address] [place] Chloride [Moles/Vol] 105 mmol/L Normal 97-105 [facility] Comment on above: Order Comment: Speci men Type: BLOOD SPECIMENOrdering Facility: [facility] Address: [address] [place] [address] Performed By: #### 3 024-7, 3016-3, 27174-3, 78841-5 ####[facility] LABCLIA [id number] [place] [address] [place] CO2 [Moles/Vol] 29 mmol/L Normal 22-30 [facility] Comment on above: Order Comment: Speci men Type: BLOOD SPECIMENOrdering Facility: [facility] Address: [address] [place] [address] Performed By: #### 3 024-7, 3016-3, 36011-7, 29927-7 ####[facility] LABCLIA [id number] [place] [address] [place] Creatinine [Mass/Vol] 0.66 mg/dL Normal 0.58-0.96 [facility] Comment on above: Order Comment: Speci men Type: BLOOD SPECIMENOrdering Facility: [facility] Address: [address] [place] [address] Performed By: #### 3 024-7, 3016-3, 42792-6, 93523-0 ####[facility] LABCLIA [id number] [place] [address] [place] Creatinine and Glomerular filtration rate.predicted panel (S/P/Bld) 90 mL/min/1.73m??? Normal >=60 [facility] Comment on above: Order Comment: Speci men Type: BLOOD SPECIMENOrdering Facility: [facility] Address: [address] [place] [address] Result Comment: Afia mated Glomerular Filtration Rate (eGFR) is calculated using the 2020 CKD-EPI creatinine equation. This equation utilizes serum creatinine, sex, and age as parameters. The creatinine assay has traceable calibration to isotope dilution-mass spectrometry. Refer to KDIGO guidelines for clinical interpretation. In patients with unstable renal function, e.g. those with acute kidney injury, the eGFR may not accurately reflect actual GFR. Performed By: #### 3 024-7, 3016-3, 07028-6, 38222-9 ####[facility] LABCLIA [id number] [place] [address] [place] Glucose [Mass/Vol] 101 mg/dL High 74-99 [facility] Comment on above: Order Comment: Speci men Type: BLOOD SPECIMENOrdering Facility: [facility] Address: [address] [place] [address] Result Comment: The [place] [employer] (ADA) provides guidance for cutoff values for fasting glucose and random glucose. The ADA defines fasting as no caloric intake for at least 8 hours. Fasting plasma glucose results between 100 to 125 mg/dL indicate increased risk for diabetes (prediabetes). Fasting plasma glucose results greater than or equal to 126 mg/dL meet the criteria for diagnosis of diabetes. In the absence of unequivocal hyperglycemia, results should be confirmed by repeat testing. In a patient with classic symptoms of hyperglycemia or hyperglycemic crisis, random plasma glucose results greater than or equal to 200 mg/dL meet the criteria for diagnosis of diabetes. Reference: Standards of Medical Care in Diabetes 2016, [place] [employer]. Diabetes Care. 2016.39(Suppl 1). Performed By: #### 3 024-7, 3016-3, 21797-2, 79659-9 ####[facility] LABCLIA [id number] [place] [address] [place] Potassium [Moles/Vol] 4.2 mmol/L Normal 3.7-5.1 [facility] Comment on above: Order Comment: Speci men Type: BLOOD SPECIMENOrdering Facility: [facility] Address: [address] [place] [address] Performed By: #### 3 024-7, 3016-3, 84640-9, 29412-9 ####[facility] LABCLIA [id number] [place] [address] [place] Sodium [Moles/Vol] 142 mmol/L Normal 136-144 [facility] Comment on above: Order Comment: Speci men Type: BLOOD SPECIMENOrdering Facility: [facility] Address: [address] [place] [address] Performed By: #### 3 024-7, 3016-3, 35876-1, 40525-4 ####[facility] LABCLIA [id number] [place] [address] [place] Urea nitrogen [Mass/Vol] 24 mg/dL High 7- [facility] Comment on above: Order Comment: Speci men Type: BLOOD SPECIMENOrdering Facility: [facility] Address: [address] [place] [address] Performed By: #### 3 024-7, 3016-3, 42143-5, 39523-8 ####[facility] LABCLIA [id number] [place] [address] [place] CBC panel Auto (Bld)on 11-11 Erythrocyte distribution width (RBC) [Ratio] 12.8 % Normal 11.5-15.0 [facility] Comment on above: Order Comment: Speci men Type: BLOOD SPECIMENOrdering Facility: [facility] Address: [address] [place] [address] Performed By: #### 5 8410-2 ####[facility] LABCLIA [id number] [place] [address] [place] Hematocrit (Bld) [Volume fraction] 36.2 % Normal 36.0-46.0 [facility] Comment on above: Order Comment: Speci men Type: BLOOD SPECIMENOrdering Facility: [facility] Address: [address] [place] [address] Performed By: #### 5 8410-2 ####[facility] LABCLIA [id number] [place] [id number] [place] Hemoglobin (Bld) [Mass/Vol] 11.6 g/dL Normal 11.5-15.5 [facility] Comment on above: Order Comment: Speci men Type: BLOOD SPECIMENOrdering Facility: [facility] Address: [address] [place] [address] Performed By: #### 5 8410-2 ####[facility] LABCLIA [id number] [place] [address] [place] MCH (RBC) [Entitic mass] 30.6 pg Normal 26.0-34.0 [facility] Comment on above: Order Comment: Speci men Type: BLOOD SPECIMENOrdering Facility: [facility] Address: [address] [place] [address] Performed By: #### 5 8410-2 ####[facility] LABIA [id number] [place] [address] [place] MCHC (RBC) [Mass/Vol] 32.0 g/dL Normal 30.5-36.0 [facility] Comment on above: Order Comment: Speci men Type: BLOOD SPECIMENOrdering Facility: [facility] Address: [address] [place] [address] Performed By: #### 5 8410-2 ####[facility] LABIA [id number] [place] [address] [place] MCV (RBC) [Entitic vol] 95.5 fL Normal 80.0-100.0 [facility] Comment on above: Order Comment: Speci men Type: BLOOD SPECIMENOrdering Facility: [facility] Address: [address] [place] [address] Performed By: #### 5 8410-2 ####[facility] LABIA [id number] [place] [address] [place] Nucleated RBC (Bld) [#/Vol] 10*3/uL Normal <0.01 [facility] Comment on above: Order Comment: Speci men Type: BLOOD SPECIMENOrdering Facility: [facility] Address: [address] [place] [address] Performed By: #### 5 8410-2 ####[facility] LABCLIA [id number] [place] [address] [place] Platelet mean volume (Bld) [Entitic vol] 10.1 fL Normal 9.0-12.7 [facility] Comment on above: Order Comment: Speci men Type: BLOOD SPECIMENOrdering Facility: [facility] Address: [address] [place] [address] Performed By: #### 5 8410-2 ####[facility] LABCLIA [id number] [place] [address] [place] Platelets (Bld) [#/Vol] 240 10*3/uL Normal 150-400 [facility] Comment on above: Order Comment: Speci men Type: BLOOD SPECIMENOrdering Facility: [facility] Address: [address] [place] [address] Performed By: #### 5 8410-2 ####[facility] LABIA [id number] [place] [address] [place] RBC (Bld) [#/Vol] 3.79 10*6/uL Low 3.90-5.20 [facility] Comment on above: Order Comment: Speci men Type: BLOOD SPECIMENOrdering Facility: [facility] Address: [address] [place] [address] Performed By: #### 5 8410-2 ####[facility] LABIA [id number] [place] [address] [place] WBC (Bld) [#/Vol] 4.13 10*3/uL Normal 3.70-11.00 [facility] Comment on above: Order Comment: Speci men Type: BLOOD SPECIMENOrdering Facility: [facility] Address: [address] [place] [address] Performed By: #### 5 8410-2 ####[facility] LABIA [id number] [place] [address] [place] Lipid 1996 panelon 4 Cholesterol [Mass/Vol] 216 mg/dL High <200 [facility] Comment on above: Order Comment: Speci men Type: BLOOD SPECIMENOrdering Facility: [facility] Address: [address] [place] [address] Result Comment: <200 mg/dL, Desirable 200-239 mg/dL, Borderline high >239 mg/dL, High Performed By: #### 3 024-7, 3016-3, 39684-1, 27041-0 ####[facility] LABCLIA [id number] [address] [place] Cholesterol in HDL [Mass/Vol] 56 mg/dL Normal >39 [facility] Comment on above: Order Comment: Speci men Type: BLOOD SPECIMENOrdering Facility: [facility] Address: [address] [place] [address] Result Comment: 40-5 9 mg/dL, Acceptable >59 mg/dL, High: Negative risk factor for coronary heart disease <40 mg/dL, Low: Positive risk factor for coronary heart disease Performed By: #### 3 024-7, 6-3, 06410-7, 65024-1 ####[facility] LABCLIA [id number] [address] Cholesterol in LDL [Mass/Vol] 142 mg/dL High <100 [facility] Comment on above: Order Comment: Speci men Type: BLOOD SPECIMENOrdering Facility: [facility] Address: [address] [place] [address] Result Comment: <100 mg/dL, Optimal 100-129 mg/dL, Near optimal/above optimal 130-159 mg/dL, Borderline high 160-189 mg/dL, High >189 mg/dL, Very high Secondary prevention optimal LDL Cholesterol levels are recommended to be < 70 mg/dL Performed By: #### 3 024-7, 3016-3, 93758-9, 68481-7 ####[facility] LABCLIA [id number] [address] [place] Cholesterol in LDL/Cholesterol in HDL [Mass ratio] 2.54 {ratio} High <2.54 [facility] Comment on above: Order Comment: Speci men Type: BLOOD SPECIMENOrdering Facility: [facility] Address: [address] [place] [address] Result Comment: Refe rence: 1. National Cholesterol Education Program ATP III Guideline At-A-Glance Quick Desk Reference: National Heart, Lung, and Blood [place]. National Institutes of Health. 2001: NIH Publication No. 01-3305. 2. An International Atherosclerosis Society position paper: global recommendations for the management of dyslipidemia: executive summary, Atherosclerosis. 2014: 232(2):410-413. Performed By: #### 3 024-7, 3016-3, 12158-4, 55492-5 ####[facility] LABCLIA [id number] [place] [address] [place] Cholesterol in VLDL [Mass/Vol] 18 mg/dL Normal <30 [facility] Comment on above: Order Comment: Speci men Type: BLOOD SPECIMENOrdering Facility: [facility] Address: [address] [place] [address] Performed By: #### 3 024-7, 3016-3, 98867-6, 74494-4 ####[facility] LABCLIA [id number] [place] [address] [place] Cholesterol non HDL [Mass/Vol] 160 mg/dL High <130 [facility] Comment on above: Order Comment: Speci men Type: BLOOD SPECIMENOrdering Facility: [facility] Address: [address] [place] [address] Result Comment: <130 mg/dL, Optimal 130-159 mg/dL, Near optimal/above optimal 160-189 mg/dL, Borderline high 190-219 mg/dL, High >219 mg/dL, Very high Secondary prevention optimal non HDL Cholesterol levels are recommended to be <100 mg/dL Performed By: #### 3 024-7, 3016-3, 83609-7, 73771-0 ####[facility] LABCLIA [id number] [place] [address] [place] Cholesterol.total/Chol esterol in HDL [Mass ratio] 3.86 {ratio} Normal <5.10 [facility] Comment on above: Order Comment: Speci men Type: BLOOD SPECIMENOrdering Facility: [facility] Address: [address] [place] [address] Performed By: #### 3 024-7, 3016-3, 54314-5, 13976-9 ####[facility] LABCLIA [id number] [place] [address] [place] FASTING TIME 12 hrs Normal [facility] Comment on above: Order Comment: Speci men Type: BLOOD SPECIMENOrdering Facility: [facility] Address: [address] [place] [address] Performed By: #### 3 024-7, 6-3, 04194-2, 21553-5 ####[facility] LABCLIA [id number] [place] [address] [place] Triglyceride [Mass/Vol] 92 mg/dL Normal <150 [facility] Comment on above: Order Comment: Speci men Type: BLOOD SPECIMENOrdering Facility: [facility] Address: [address] [place] [address] Result Comment: <150 mg/dL, Normal 150-199 mg/dL, Borderline high 200-499 mg/dL, High >499 mg/dL, Very high Performed By: #### 3 024-7, 6-3, 85813-3, 16520-5 ####[facility] LABCLIA [id number] [place] [address] [place] T4 Free SerPl-mCncon 024 Free T4 [Mass/Vol] 1.4 ng/dL Normal 0.9-1.7 [facility] Comment on above: Order Comment: Speci men Type: BLOOD SPECIMENOrdering Facility: [facility] Address: [address] [place] [address] Performed By: #### 3 024-7, 3016-3, 54137-5, 01113-9 ####[facility] LABCLIA [id number] [place] [address] [place] TSH SerPl-aCncon 11-11-2023 TSH Qn 2.390 m[IU]/L Normal 0.270-4.200 [facility] Comment on above: Order Comment: Speci men Type: BLOOD SPECIMENOrdering Facility: [facility] Address: [address] [facility] [place] [address] Performed By: #### 3 024-7, 3016-3, 46737-7, 89510-7 ####[facility] LABCLIA [id number] [facility] [id number] [address] [place] MRI BRAIN WO/W IVCONon 11-06 MRI BRAIN WO/W IVCON * * *Final Report* * * DATE OF EXAM: Nov 06 2023 2:30PM WRM [id number] - MRI BRAIN WO/W IVCON / PROCEDURE REASON: Meningioma (HCC) * * * * Physician Interpretation * * * * EXAMINATION: MRI BRAIN WO/W IVCON CLINICAL HISTORY: Meningioma follow-up examination. Status post radiation therapy. TECHNIQUE: Routine brain MRI protocol without and with contrast including diffusion images. MQ: MRBWOW_2 Contrast: 12 mL Dotarem IV COMPARISON: 05/02/2023 RESULT: Acute Change: There is no evidence of restricted diffusion to suggest an acute infarct. Hemorrhage: No evidence of prior parenchymal hemorrhage on the gradient echo images. Mass Lesion/ Mass Effect: Extra-axial enhancing soft tissue inferior lateral to the left frontal lobe is similar in thickness compared to the prior study, and compatible with the provided history of meningioma. There is mild localized mass effect. There are FLAIR changes in the adjacent left frontal lobe that are unchanged from the prior study. The maximal thickness of the meningioma as measured on axial series that 13 image 77 is approximately 18 mm, grossly unchanged from the prior study. No significant mass effect. Chronic Change: Mild microvascular ischemic change not significantly different from the prior study. Parenchyma: No significant volume loss for age. The brain parenchyma is otherwise within normal limits of signal intensity and morphology. Ventricles: Normal caliber and morphology. Skull Base: Hypothalamic and pituitary region are grossly normal. Craniocervical junction is normal. No significant marrow replacement process. Vasculature: Major intracranial arterial structures, and dural venous sinuses show typical flow void, suggesting patency by spin echo criteria. Other: The visualized paranasal sinuses and mastoid air cells are clear. The orbits and extracranial soft tissues are unremarkable. IMPRESSION: Overall stable appearance of the brain since the prior examination. Left frontal extra-axial mass compatible with meningioma with mild localized mass effect and adjacent brain parenchymal signal changes is similar in appearance to what was seen on the prior study. Tenant Selector: DOMENIC Transcribe Date/Time: Nov 06 2023 2:46P Dictated by : JIM AGUIRRE MD This examination was interpreted and the report reviewed and electronically signed by: JIM AGUIRRE MD on Nov 06 2023 2:48PM EST [id number] Normal [facility] CNOVon 10-25-2023 CNOV Office Visit (NEMOWS ) LOU OLIVER ([id number]) 1945 F Date Time Provider Department 10/25/23 3:20 PM RANJAN CONNOLLY JR During your visit today, we recorded the following information about you: Pulse Respiration Blood pressure Weight 70/minute 16/minute 128/76 59.8 kg Margarette Leos LPN 10/25/2023 5:45 PM Signed 10/22/2023 PROMIS Global Health Physical Health Summary Physical health: Good Everyday physical activity, ability: Moderately Fatigue: Moderate Pain level: 6 General health: Good Social activities/roles, ability: Good Physical Health T-Score 39.8 (Fair) Physical Health Percentile 15 PROMIS Global Health Mental Health Summary Quality of life: Good Mental health (mood,thinking): Good Social satisfaction: Good Emotional problems (anxious,depressed): Sometimes Mental Health T-Score 43.5 (Good) Mental Health Percentile 26 PHQ-9 Score: 8(Mild Depression) PHQ-9 Self-Harm: Not at all DIANNE-7 Score: 7(Mild Anxiety) NEURO-QOL Cognitive Function T-Score 37(Moderate Dysfunction) Neuro-Qol Cognitive Function Percentile 10 PROMIS Physical Function T-Score 38(Moderate Dysfunction) PROMIS Physical Function Percentile 12 PROMIS Pain Interference T-Score 67(Moderate) PROMIS Pain Interference Percentile 4 Percentiles provide an indication of how a patient's score ranks in relation to the [place] general population. > 31st percentile is within normal limits or better *< 31st percentile is at least ? SD worse than population, which may be clinically relevant < 16th percentile is at least 1 SD worse than population and warrants attention Ranjan Connolly Jr., MD 10/25/2023 5:45 PM Signed ESTABLISHED PATIENT VISIT CHIEF COMPLAINT: Follow Up HISTORY OF PRESENT ILLNESS: Lou Oliver is a 78 year old female, BMI 22.62 kg/m2 with a PMH significant for and per last office visit of 07/25/23 with Alberto SHI.: Regarding Parkinson's, patient is pleased with current regimen, still endorsing some nausea when taking her Sinemet throughout the day, no vomiting. Wearing compression socks with improvement in her symptoms as well. Notes that her sleeping is improved as well since last appointment. Overall, patient is doing well, no changes in regimen today. Did prescribe U step walker at last appointment, patient has yet to get this. Encouraged her to do so, states that she tried her friends U step walker and did like this. Patient also continuing to do exercise classes as well. Patient is endorsing some issues with swallowing liquids, has appointment with speech therapy next week and encouraged to keep this appointment. Per my last note of 03/25/23: 1. Parkinson disease (HCC) - ICD9: 332.0, ICD10: G20 (primary diagnosis) Patient with increasing on-off effect of Sinemet as noted above. Most of visit was spent focused on this condition and discussing ways to treat. We did discuss meds such as Rytary and Comtan but pt concerned about costs of such and/or increased number of meds needing to be taken. After further discussion, attempt will be made to take Sinemet less frequent through the day but at a higher dose with superimposed dosing of Sinemet CR in attempt to avoid complete off effect of medication. Dosing as follows: Sinemet 25/100mg dose: -Take 1.5 tabs at 730AM (after eating something). -Take 1.5 tabs at 1130AM. -Take 1.5 tabs at 330PM (after lunch). -Take 1.5 tabs at 730 PM 2. Sinemet CR 50/200mg dose: -Take 1 tablet with your 730AM dose of short acting Sinemet. -Take 1 tablet at 10-11 PM. SE and ADRs d/w pt and her daughter. They agree with plan. 2. 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 No additional meds at this time per patient request. Warned of injury risks with such disorder and d/w them both treatment options. Pt will consider if symptoms worsen. For now no additional meds. 3. Small fiber neuropathy - ICD9: 356.9, ICD10: G62.9 Stable on gabapentin 100mg TID. No changes in dosing today. Confirmed current Sinemet regimen with pt. Note she on an off period right now as just took Sinemet 15 minutes ago. She feels off periods are becoming longer and feels the 11AM to 3PM is not doing much. Good in morning and evening but from 1030AM to 2PM per daughter is when she is at her worst -- as result does not get to her PD classes -- increased tremor and limited mobility. Sinemet 25/100mg dose: -Take 1 tabs at 7AM (after eating something). -Take 1 tabs at 11AM. -Take 1.5 tabs at 3PM (after lunch). -Take 1 tabs at 7PM 2. Sinemet CR 50/200mg dose: -Take 1 tablet with your 7AM dose of short acting Sinemet. -Take 1 tablet at 11 PM. Pt did have cervical RFA 3 weeks ago and neck is still sore. States does not feels any improvement in symptoms. Currently feels like she is doing well on the (more content not included)... Normal [facility] CNTHERAPYon 09-17-2023 CNTHERAPY OT/PT/Speech Visit (SPMBME) LOU OLIVER ([id number]) 1945 F Date Time Provider Department 09/17/23 9:30 AM AMNA SYLWIADORIS CARSONLA SPMBME Date Time Provider Department Jeremiah 09/17/2023 9:30 AM [id number] SCHUSTER [facility] Reason for Visit: Speech Instrumental Swallow Eval [3660] Speech Discharge [3488] Primary Visit Diagnosis:Dysphagia, unspecified type [R13.10] Other Visit Diagnosis:Parkinson's disease, unspecified whether dyskinesia present, unspecified whether manifestations fluctuate [G20.A1] Allergies As of Date: 09/17/2023 Noted Allergy Reaction SULFA (SULFONAMIDE ANTIBIOTICS) 10/26/2005 4 - Hives Date Reviewed: 08/28/2023 Reviewed by: Estelle Dodge APRN.BUCKET PUSHER - Fully Assessed Prescriptions as of 09/17/2023 - ondansetron orally disintegrating (ZOFRAN ODT) 4 mg disintegrating tablet Take 1 tablet by mouth every 6 hours as needed for nausea/vomiting. - fludrocortisone (FLORINEF) 0.1 mg tablet Take 1 tablet by mouth once daily. - LORazepam (ATIVAN) 0.5 mg Take by mouth. - pravastatin (PRAVACHOL) 20 mg tablet TAKE 1 TABLET BY MOUTH EVERYDAY AT BEDTIME - levothyroxine (SYNTHROID) 75 mcg tablet Take 1 tablet by mouth once daily. Take on empty stomach. For Thyroid - sertraline (ZOLOFT) 100 mg tablet Take 1 tablet by mouth once daily. - carbidopa-levodopa CR (SINEMET CR) 50-200 mg per tablet TAKE 1 TABLET BY MOUTH in Morning and before bedtime as instructed. - gabapentin (NEURONTIN) 100 mg capsule Take 1 capsule by mouth three times daily for 180 days. - Cholecalciferol, Vitamin D3, 50 mcg (2,000 unit) cap Take 2,000 Units by mouth once daily. - diclofenac sodium (VOLTAREN) 1 % topical gel APPLY 2 GRAMS TO AFFECTED AREA 4 TIMES A DAY - docusate sodium (COLACE ORAL) Take by mouth as needed. - THERAPEUTIC MULTIVITAMIN TAB Take by mouth. Letter Text Normal [facility] XR MOD BARIUM SWALLOW W JACQUE Tomlin 09-17-2023 XR MOD BARIUM SWALLOW W SPEECH * * *Final Report* * * DATE OF EXAM: Sep 17 2023 9:55AM MDX [id number] - XR MOD BARIUM SWALLOW W SPEECH / PROCEDURE REASON: R13.10-Dysphagia, unspecified type * * * * Physician Interpretation * * * * Videoesophagus HISTORY: Indication: Dysphagia, unspecified type TECHNIQUE: The examination was monitored by the speech pathologist. The patient was given different consistencies of barium and barium-coated foods to swallow. Fluoroscopic Radiation Summary: Plane A, Air Kerma: 29.2 mGy Dose Area Product (DAP): 3765.8 mGy*cm^2 Fluoro time: 2:12 min:sec Images obtained: Follow Cineflouroscopy images under fluoroscopic guidance. Images were stored in a permanent archive Images obtained: Multiple spot film images under fluoroscopic guidance. Comparison: NONE. RESULT: Findings: Marked narrowing at the gastroesophageal junction noted on image which extends down to this level. No evidence of aspiration Impression: 1. No evidence of aspiration 2. There appears to be marked narrowing of the distal esophagus or gastroesophageal junction. Formal esophagram recommended 3. See Speech and Hearing therapist report for further evaluation Tenant Selector: DOMENIC Transcribe Date/Time: Sep 18 2023 1:47P Dictated by : HOSEA STEWART DO This examination was interpreted and the report reviewed and electronically signed by: HOSEA STEWART DO on Sep 18 2023 1:50PM EST [id number] [facility] CNCOon 08-28-2023 CNCO Letter Text Normal [facility] CNPAngela 08-28-2023 CNPN Telephone (AGSPINE3) LOU OLIVER ([id number]) 1945 F Date Time Provider Department 08/28/23 JAK DIAZ AGSPINE3 During your visit today, we recorded the following information about you: Hawk Leonard 08/28/2023 2:11 PM Signed Procedure(s) being scheduled: 1.Are you diabetic No 2. Are you on any blood thinners? No If yes, does it require a hold? No If yes, was approval letter sent? No 3. Are you taking any aspirin? No 4. Are you currently taking any antibiotics? No If yes, is it prophylactic or for treatment of an infection? 5. Do you have any allergies to latex? No 6. Do you have any allergies to seafood or shellfish? No 7. Do you have any allergies to x-ray dye? No 8. Did the physician instruct you to take any medication prior to your procedure? No 9. Does this procedure require a lyft driver? Yes If yes, has patient been notified that a lyft driver is needed and must be present at check in? Yes 10. Were the pre-procedure instructions explained and provided to the patient? Yes 11. Do you have a pacemaker? No 12. Do you have an internal stimulator of any kind? No If yes, please bring the remote with you to your procedure visit. 13. Have you received the COVID-19 Vaccine? Yes. If yes, date(s) received: 2021 (Patient should not receive a procedure including steroids 14 days prior to their first dose of the COVID vaccine. They should not receive any procedure containing steroids in the time frame between their 1st and 2nd doses of the COVID vaccine. They should not receive a procedure containing steroids 14 days after their 2nd dose of the COVID vaccine.) Hawk Leonard Allergies As of Date: 08/28/2023 Noted Allergy Reaction SULFA (SULFONAMIDE ANTIBIOTICS) 10/26/2005 4 - Hives Date Reviewed: 08/28/2023 Reviewed by: Estelle Dodge APRN.BUCKET PUSHER - Fully Assessed Prescriptions as of 08/28/2023 - ondansetron orally disintegrating (ZOFRAN ODT) 4 mg disintegrating tablet Take 1 tablet by mouth every 6 hours as needed for nausea/vomiting. - fludrocortisone (FLORINEF) 0.1 mg tablet Take 1 tablet by mouth once daily. - LORazepam (ATIVAN) 0.5 mg Take by mouth. - pravastatin (PRAVACHOL) 20 mg tablet TAKE 1 TABLET BY MOUTH EVERYDAY AT BEDTIME - levothyroxine (SYNTHROID) 75 mcg tablet Take 1 tablet by mouth once daily. Take on empty stomach. For Thyroid - sertraline (ZOLOFT) 100 mg tablet Take 1 tablet by mouth once daily. - carbidopa-levodopa CR (SINEMET CR) 50-200 mg per tablet TAKE 1 TABLET BY MOUTH in Morning and before bedtime as instructed. - gabapentin (NEURONTIN) 100 mg capsule Take 1 capsule by mouth three times daily for 180 days. - Cholecalciferol, Vitamin D3, 50 mcg (2,000 unit) cap Take 2,000 Units by mouth once daily. - diclofenac sodium (VOLTAREN) 1 % topical gel APPLY 2 GRAMS TO AFFECTED AREA 4 TIMES A DAY - docusate sodium (COLACE ORAL) Take by mouth as needed. - THERAPEUTIC MULTIVITAMIN TAB Take by mouth. Problem List As Of Date 08/28/2023 Noted Resolved Essential hypertension, benign [I10] 04/04/2007 Hypothyroidism [E03.9] 04/04/2007 COMMON MIGRAINE [346.1] 04/04/2007 Anxiety state [F41.1] 04/04/2007 Mixed hyperlipidemia [E78.2] 10/26/2009 Pes anserinus bursitis of left knee [M70.52] 10/29/2013 Left knee pain [M25.562] 10/29/2013 Cervical spondylosis without myelopathy [M47.81*05/18/2020 Parkinson disease (HCC) [G20.A1] 07/18/2020 Spinal stenosis of cervical region [M48.02] 07/18/2020 Intracranial meningioma (HCC) [D32.0] 07/18/2020 Palpitations [R00.2] 10/03/2020 Shortness of breath [R06.02] 10/03/2020 Tachycardia [R00.0] 06/12/2021 Neck pain [M54.2] 04/09/2023 Neck muscle weakness [M53.82] 04/09/2023 Encounter Status:Closed by HAWK LEONARD on 08/28/23 [facility] CNOVon 08-12-2023 CNOV Office Visit (INTMWS ) LOU OLIVER ([id number]) 1945 F Date Time Provider Department 08/12/23 3:20 PM AMINATA ROYAL INTSHAYAN During your visit today, we recorded the following information about you: Pulse Respiration Blood pressure Weight 68/minute 16/minute 118/80 61.7 kg Aminata Royal APRN.BUCKET PUSHER 08/14/2023 7:33 AM Signed CC: Patient presents with: Recheck: 3 month follow up HPI Lou Oliver is a 78 year old female who presents today for routine follow up. Was seen recently by other provider for hypotension which is well controlled with florinef now. Parkinsons Disease: Follows with neurology and on sinemet. Tremors and symptoms patient reports are overall controlled with this. She is able to care for herself but is finding that activities, even dressing, seem to be more difficult, take longer, and then also makes her tired. Has been having trouble swallowing so was consulted to speech therapy and GI as ordered by neurology. Awaiting cookie swallow. States even water feels like there is a lump in her throat. Does have some heartburn recently. Also with nasea and bloating with eating. Does not take anything as it can interact with her sinemet. Denies cough, wheezing, fever, chills, abdominal pain, dark sticky stools, blood in stools, vomiting, shortness of breath, or chest pressure. Hypothyroidism: Takes medication as ordered. Denies any abnormal changes in weight. Depression: Feels well controlled on current treatment. Sleep: is described as normal but will get on average of 4 hours at a time, be up for a while then nap. Alcohol use: does not drink any alcohol Drug use: No Appetite: good Suicidal Thoughts: No suicidal ideation, intent or plan Support: Comes from multiple sources including family REVIEW OF SYSTEMS General: no fevers, no chills, no night sweats, no recurrent infections, no change in appetite, no change in energy, and no significant changes in weight Respiratory: no cough, no wheezing, no shortness of breath, no hemoptysis Cardiovascular: no chest pain, no chest pressure, no palpitations, and no swelling Neurologic: No headache, weakness, dizziness, memory loss, syncope. PAST MEDICAL HISTORY Diagnosis Date Diverticulosis of colon (without mention of hemorrhage) Essential hypertension, benign 04/04/2007 Mental disorder Migraine without aura 04/04/2007 Parkinson disease Unspecified hypothyroidism 04/04/2007 PAST SURGICAL HISTORY Procedure Laterality Date DELIVERY ONLY , low cervical x2 COLONOSCOPY FLX DX W/COLLJ SPEC WHEN PFRMD 1994 Colonoscopy COLONOSCOPY FLX DX W/COLLJ SPEC WHEN PFRMD 04/07/2012 Colonoscopy COLONOSCOPY FLX DX W/COLLJ SPEC WHEN PFRMD 06/17/2019 Colonoscopy DILATION AND CURETTAGE DXAND/THER NONOBSTETRIC 09/1982 Dilation AND curettage PAST SURGICAL HISTORY OF 02/1996 EMB TONSILLECTOMY AND ADENOIDECTOMY T/A (under age 12 years) ALLERGIES Sulfa (Sulfonamide Antibiotics) MEDICATIONS fludrocortisone (FLORINEF) 0.1 mg tablet Take 1 tablet by mouth once daily. LORazepam (ATIVAN) 0.5 mg Take by mouth. pravastatin (PRAVACHOL) 20 mg tablet TAKE 1 TABLET BY MOUTH EVERYDAY AT BEDTIME levothyroxine (SYNTHROID) 75 mcg tablet Take 1 tablet by mouth once daily. Take on empty stomach. For Thyroid sertraline (ZOLOFT) 100 mg tablet Take 1 tablet by mouth once daily. carbidopa-levodopa CR (SINEMET CR) 50-200 mg per tablet TAKE 1 TABLET BY MOUTH in Morning and before bedtime as instructed. gabapentin (NEURONTIN) 100 mg capsule Take 1 capsule by mouth three times daily for 180 days. Cholecalciferol, Vitamin D3, 50 mcg (2,000 unit) cap Take 2,000 Units by mouth once daily. diclofenac sodium (VOLTAREN) 1 % topical gel APPLY 2 GRAMS TO AFFECTED AREA 4 TIMES A DAY docusate sodium (COLACE ORAL) Take by mouth as needed. THERAPEUTIC MULTIVITAMIN TAB Take by mouth. FAMILY HISTORY Problem Relation Age of Onset Hypertension Mother Arthritis Mother Heart disease Mother Diabetes Father adult onset Emphysema Father Cancer Father lung Asthma Daughter Allergic Rhinitis Daughter Diabetes Paternal Grandmother Ischemic Heart Disease Maternal Grandfather Psychiatry Maternal Grandmother Social History Tobacco Use Smoking status: Never Smokeless tobacco: Never Tobacco comments: Father smoked in childhood home. 2 spouses were smokers. Vaping Use Vaping Use: Never used Substance Use Topics Alcohol use: No Drug use: No PHYSICAL EXAM BP 118/80 Pulse 68 Resp 16 Wt 61.7 kg (136 lb) SpO2 100% BMI 23.34 kg/m? General Appearance: well appearing, in no acute distress, alert Pysch: mood and affect broad and appropriate Skin: Skin color, texture, turgor normal for age; Eyes: conjunctiva pink and moist, no icterus, sclera white, non-injected Lungs: Lungs clear to auscultation. No wh (more content not included)... Normal [facility] CNTHERAPYon 08-01-2023 CNTHERAPY OT/PT/Speech Visit (MARTHAMMMaría) LOU OLIVER ([id number]) 1945 F Date Time Provider Department 08/01/23 1:30 PM KAREN FRANCIS Date Time Provider Department Jeremiah 08/01/2023 1:30 PM [id number] FRANCIS [facility] Reason for Visit: Speech Evaluation [1647] Speech Discharge [8478] Visit Diagnoses:Parkinson's disease, unspecified whether dyskinesia present, unspecified whether manifestations fluctuate [G20.A1] Dysphagia, unspecified type [R13.10] Allergies As of Date: 08/01/2023 Noted Allergy Reaction SULFA (SULFONAMIDE ANTIBIOTICS) 10/26/2005 4 - Hives Date Reviewed: 07/25/2023 Reviewed by: Zhane Sylvester PA-C - Fully Assessed Prescriptions as of 08/01/2023 - carbidopa-levodopa CR (SINEMET CR) 50-200 mg per tablet TAKE 1 TABLET BY MOUTH in Morning and before bedtime as instructed. - Cholecalciferol, Vitamin D3, 50 mcg (2,000 unit) cap Take 2,000 Units by mouth once daily. - diclofenac sodium (VOLTAREN) 1 % topical gel APPLY 2 GRAMS TO AFFECTED AREA 4 TIMES A DAY - docusate sodium (COLACE ORAL) Take by mouth as needed. - fludrocortisone (FLORINEF) 0.1 mg tablet Take 1 tablet by mouth once daily. - gabapentin (NEURONTIN) 100 mg capsule Take 1 capsule by mouth three times daily for 180 days. - levothyroxine (SYNTHROID) 75 mcg tablet Take 1 tablet by mouth once daily. Take on empty stomach. For Thyroid - LORazepam (ATIVAN) 0.5 mg Take by mouth. - pravastatin (PRAVACHOL) 20 mg tablet TAKE 1 TABLET BY MOUTH EVERYDAY AT BEDTIME - sertraline (ZOLOFT) 100 mg tablet Take 1 tablet by mouth once daily. - THERAPEUTIC MULTIVITAMIN TAB Take by mouth. Letter Text [facility] No Panel InformationOrdered By: Cc Provider on 04-08-2023 [facility] XR Cervical spine AP and Lat eral and obliqueon 04-08-2023 * * *Final Report* * * DATE OF EXAM: Apr 05 2023 2:59PM WOX [id number] - XR CERVICAL 4V AP/LAT/OBL / PROCEDURE REASON: Neck pain * * * * Physician Interpretation * * * * EXAM: CERVICAL SPINE, 4 VIEWS; THORACIC SPINE 2 VIEWS CLINICAL: 77-year-old female with neck pain and kyphosis TECHNIQUE: AP, lateral, obliques of the cervical spine; AP and lateral view thoracic spine COMPARISON: 04/06/2020 cervical spine RESULTS: Counting reference: Craniocervical junction.. Straightening of normal cervical lordosis. Mild amount narrowing C4/C5 moderate to marked narrowing C5/C6 disc spaces. Osteophytes anteriorly at C5-C6 and uncovertebral osteophytes at C5-C6. Less than 2 mm anterior subluxation C4 and C5. Facet degenerative changes throughout the cervical spine with hypertrophic changes at C2-C3 5. The left neural foraminal obliques are overrotated with neuroforaminal narrowing at C3/C4 and C4/C5. Neuroforaminal narrowing at C3/C4 and C4/C5 on the right. Thoracic spine counting reference: The first rib-bearing vertebral bodies considered T1. There are 12 rib-bearing vertebral bodies. Proximally 73 degree kyphosis centered at T6/T7. Vertebral bodies and pedicles are intact. Degenerative disc disease from T1/T2 13th T7/T8. DIVISION OF RADIOLOGY Provider, [facility] - 04/08/2023 * * *Final Report* * * DATE OF EXAM: Apr 05 2023 2:59PM WOX [id number] - XR CERVICAL 4V AP/LAT/OBL / PROCEDURE REASON: Neck pain * * * * Physician Interpretation * * * * EXAM: CERVICAL SPINE, 4 VIEWS; THORACIC SPINE 2 VIEWS CLINICAL: 77-year-old female with neck pain and kyphosis TECHNIQUE: AP, lateral, obliques of the cervical spine; AP and lateral view thoracic spine COMPARISON: 04/06/2020 cervical spine RESULTS: Counting reference: Craniocervical junction.. Straightening of normal cervical lordosis. Mild amount narrowing C4/C5 moderate to marked narrowing C5/C6 disc spaces. Osteophytes anteriorly at C5-C6 and uncovertebral osteophytes at C5-C6. Less than 2 mm anterior subluxation C4 and C5. Facet degenerative changes throughout the cervical spine with hypertrophic changes at C2-C3 5. The left neural foraminal obliques are overrotated with neuroforaminal narrowing at C3/C4 and C4/C5. Neuroforaminal narrowing at C3/C4 and C4/C5 on the right. Thoracic spine counting reference: The first rib-bearing vertebral bodies considered T1. There are 12 rib-bearing vertebral bodies. Proximally 73 degree kyphosis centered at T6/T7. Vertebral bodies and pedicles are intact. Degenerative disc disease from T1/T2 13th T7/T8. 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 Tenant Selector: [employer] Transcribe Date/Time: Avinash 19 2023 3:48P Dictated by : ANA MARIA JALLOH MD This examination was interpreted and the report reviewed and electronically signed by: ANA MARIA JALLOH MD on Apr 08 2023 3:55PM [facility] XR Thoracic spine AP and Lat [facility] 04-08-2023 * * *Final Report* * * DATE OF EXAM: Apr 05 2023 2:59PM WOX [id number] - XR THORACIC 2V AP/LAT / PROCEDURE REASON: Kyphosis of thoracic region, unspecified kyphosis type * * * * Physician Interpretation * * * * EXAM: CERVICAL SPINE, 4 VIEWS; THORACIC SPINE 2 VIEWS CLINICAL: 77-year-old female with neck pain and kyphosis TECHNIQUE: AP, lateral, obliques of the cervical spine; AP and lateral view thoracic spine COMPARISON: 04/06/2020 cervical spine RESULTS: Counting reference: Craniocervical junction.. Straightening of normal cervical lordosis. Mild amount narrowing C4/C5 moderate to marked narrowing C5/C6 disc spaces. Osteophytes anteriorly at C5-C6 and uncovertebral osteophytes at C5-C6. Less than 2 mm anterior subluxation C4 and C5. Facet degenerative changes throughout the cervical spine with hypertrophic changes at C2-C3 5. The left neural foraminal obliques are overrotated with neuroforaminal narrowing at C3/C4 and C4/C5. Neuroforaminal narrowing at C3/C4 and C4/C5 on the right. Thoracic spine counting reference: The first rib-bearing vertebral bodies considered T1. There are 12 rib-bearing vertebral bodies. Proximally 73 degree kyphosis centered at T6/T7. Vertebral bodies and pedicles are intact. Degenerative disc disease from T1/T2 13th T7/T8. DIVISION OF RADIOLOGY Provider, [facility] - 04/08/2023 * * *Final Report* * * DATE OF EXAM: Apr 05 2023 2:59PM WOX [id number] - XR THORACIC 2V AP/LAT / PROCEDURE REASON: Kyphosis of thoracic region, unspecified kyphosis type * * * * Physician Interpretation * * * * EXAM: CERVICAL SPINE, 4 VIEWS; THORACIC SPINE 2 VIEWS CLINICAL: 77-year-old female with neck pain and kyphosis TECHNIQUE: AP, lateral, obliques of the cervical spine; AP and lateral view thoracic spine COMPARISON: 04/06/2020 cervical spine RESULTS: Counting reference: Craniocervical junction.. Straightening of normal cervical lordosis. Mild amount narrowing C4/C5 moderate to marked narrowing C5/C6 disc spaces. Osteophytes anteriorly at C5-C6 and uncovertebral osteophytes at C5-C6. Less than 2 mm anterior subluxation C4 and C5. Facet degenerative changes throughout the cervical spine with hypertrophic changes at C2-C3 5. The left neural foraminal obliques are overrotated with neuroforaminal narrowing at C3/C4 and C4/C5. Neuroforaminal narrowing at C3/C4 and C4/C5 on the right. Thoracic spine counting reference: The first rib-bearing vertebral bodies considered T1. There are 12 rib-bearing vertebral bodies. Proximally 73 degree kyphosis centered at T6/T7. Vertebral bodies and pedicles are intact. Degenerative disc disease from T1/T2 13th T7/T8. 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 [facility] Selector[facility] Transcribe Date/Time: Apr 08 2023 3:48P Dictated by : ANA MARIA JALLOH MD This examination was interpreted and the report reviewed and electronically signed by: ANA MARIA JALLOH MD on Apr 08 2023 3:55PM EST [facility] No Panel Informationon 04-05 Radiology Study observation (narrative) [facility] Basic metabolic 2000 panelon 03-21-2023 Anion gap [Moles/Vol] 10 mmol/L 9 - 18 mmol/L [facility] Calcium [Mass/Vol] 9.2 mg/dL 8.5 - 10. 2 mg/dL [facility] Chloride [Moles/Vol] 105 mmol/L 97 - 10 5 mmol/L [facility] CO2 [Moles/Vol] 24 mmol/L 22 - 30 mmol/L [facility] Creatinine [Mass/Vol] 0.74 mg/dL 0.58 - 0.96 mg/dL [facility] Estimated Glomerular Filtration Rate 84 mL/min/1.73m >=60 mL/min/1.73m [facility] Glucose [Mass/Vol] 94 mg/dL 74 - 99 mg/dL [facility] Potassium [Moles/Vol] 4.1 mmol/L 3.7 - 5.1 mmol/L [facility] Sodium [Moles/Vol] 139 mmol/L 136 - 144 mmol/L [facility] Urea nitrogen [Mass/Vol] 19 mg/dL 7 - 21 mg/dL [facility] TSH BLDon 03-21-2023 TSH Qn 1.010 m[IU]/L 0.270 - 4.200 mIU/L [facility] CT BRAIN WO IVCONon 08-07-20 [facility] MRI BRAIN WO/W IVCONon 03-26 [facility] Vital Signs Date Time Vital Sign Value Performing Clinician Nick yi 08-10-2024 11:00-0400 Diastolic blood pressure 52 mm[Hg] Shara Tapia PT Work Phone: [facility] 08-10-2024 11:00-0400 Heart rate 75 /min Shara Tapia PT Work Phone: [facility] 08-10-2024 11:00-0400 Systolic blood pressure 91 mm[Hg] Shara Tapia PT Work Phone: [facility] 07-31-2024 09:31-0400 Body mass index (BMI) [Ratio] 22.14 kg/m2 Sayra Mabry MD Work Phone: [facility] 07-31-2024 09:31-0400 Body weight 56.7 kg Sayra Mabry MD Work Phone: [facility] 07-31-2024 09:31-0400 SaO2% (BldA) [Mass fraction] 98 % Sayra Mabry MD Work Phone: [facility] 07-21-2024 16:08-0400 Body mass index (BMI) [Ratio] 21.79 kg/m2 Marvel Rizzo MD Work Phone: [facility] 07-21-2024 16:08-0400 Body weight 55.79 kg Marvel Rizzo MD Work Phone: [facility] 07-21-2024 16:08-0400 Diastolic blood pressure 60 mm[Hg] Marvel Rizzo MD Work Phone: [facility] 07-21-2024 16:08-0400 Heart rate 60 /min Marvel Rizzo MD Work Phone: [facility] 07-21-2024 16:08-0400 Respiratory rate 16 /min Marvel Rizzo MD Work Phone: [facility] 07-21-2024 16:08-0400 Systolic blood pressure 92 mm[Hg] Marvel Rizzo MD Work Phone: [facility] 07-02-2024 13:56-0400 Heart rate 75 /min Jak Diaz MD Work Phone: [facility] 07-02-2024 13:56-0400 Respiratory rate 14 /min Jak Diaz MD Work Phone: [facility] 07-02-2024 13:56-0400 SaO2% (BldA) [Mass fraction] 97 % Jak Diaz MD Work Phone: [facility] 06-11-2024 13:52-0400 Diastolic blood pressure 61 mm[Hg] Jak Diaz MD Work Phone: [facility] 06-11-2024 13:52-0400 Heart rate 74 /min Jak Diaz MD Work Phone: [facility] 06-11-2024 13:52-0400 Respiratory rate 18 /min Jak Diaz MD Work Phone: [facility] 06-11-2024 13:52-0400 SaO2% (BldA) [Mass fraction] 98 % Jak Diaz MD Work Phone: [facility] 06-11-2024 13:52-0400 Systolic blood pressure 104 mm[Hg] Jak Diaz MD Work Phone: [facility] 06-05-2024 15:13-0400 Body mass index (BMI) [Ratio] 21.73 kg/m2 Mavrel Rizzo MD Work Phone: [facility] 06-05-2024 15:13-0400 Body weight 57.42 kg Marvel Rizzo MD Work Phone: [facility] 06-05-2024 15:13-0400 Diastolic blood pressure 70 mm[Hg] Marvel Rizzo MD Work Phone: [facility] 06-05-2024 15:13-0400 Heart rate 106 /min Marvel Rizzo MD Work Phone: [facility] 06-05-2024 15:13-0400 SaO2% (BldA) [Mass fraction] 97 % Marvel Rizzo MD Work Phone: [facility] 06-05-2024 15:13-0400 Systolic blood pressure 98 mm[Hg] Marvel Rizzo MD Work Phone: [facility] 05-04-2024 11:20-0400 Body mass index (BMI) [Ratio] 22.18 kg/m2 Brissa Hannah MMI TEACHER.BUCKET PUSHER Work Phone: [facility] 05-04-2024 11:20-0400 Body temperature 98.29 [degF] Brissa Hannah MMI TEACHER.BUCKET PUSHER Work Phone: [facility] 05-04-2024 11:20-0400 Body weight 58.6 kg Brissaana Young MMI TEACHER.BUCKET PUSHER Work Phone: [facility] 05-04-2024 11:20-0400 Diastolic blood pressure 78 mm[Hg] Brissa Hannah MMI TEACHER.BUCKET PUSHER Work Phone: [facility] 05-04-2024 11:20-0400 Heart rate 76 /min Brissa Hannah MMI TEACHER.BUCKET PUSHER Work Phone: [facility] 05-04-2024 11:20-0400 Respiratory rate 16 /min Brissa Hannah MMI TEACHER.BUCKET PUSHER Work Phone: [facility] 05-04-2024 11:20-0400 SaO2% (BldA) [Mass fraction] 98 % Brissa Young MMI TEACHER.BUCKET PUSHER Work Phone: [facility] 05-04-2024 11:20-0400 Systolic blood pressure 134 mm[Hg] Brissa Hannah MMI TEACHER.BUCKET PUSHER Work Phone: [facility] 03-25-2024 13:56-0400 Body height 162.6 cm Sayra Mabry MD Work Phone: [facility] 03-25-2024 13:56-0400 Body mass index (BMI) [Ratio] 21.53 kg/m2 Sayra Mabry MD Work Phone: [facility] 03-25-2024 13:56-0400 Body weight 56.9 kg Sayra Mabry MD Work Phone: [facility] 03-25-2024 13:56-0400 SaO2% (BldA) [Mass fraction] 96 % Sayra Mabry MD Work Phone: [facility] 03-23-2024 10:52-0400 Body height 162.6 cm Era Kalka PA-C Work Phone: [facility] 03-23-2024 10:52-0400 Body mass index (BMI) [Ratio] 21.7 kg/m2 Era Kalka PA-C Work Phone: [facility] 03-23-2024 10:52-0400 Body weight 57.34 kg Era Kalka PA-C Work Phone: [facility] 03-23-2024 10:52-0400 Diastolic blood pressure 70 mm[Hg] Era Kalka PA-C Work Phone: [facility] 03-23-2024 10:52-0400 Heart rate 76 /min Era Kalka PA-C Work Phone: [facility] 03-23-2024 10:52-0400 Systolic blood pressure 112 mm[Hg] Era Kalka PA-C Work Phone: [facility] 03-22-2024 11:58-0400 Body mass index (BMI) [Ratio] 21.95 kg/m2 Oc Rose APRN.BUCKET PUSHER Work Phone: [facility] 03-22-2024 11:58-0400 Body temperature 97.3 [degF] Oc Rose APRN.BUCKET PUSHER Work Phone: [facility] 03-22-2024 11:58-0400 Body weight 58 kg Oc Rose MMI TEACHER.BUCKET PUSHER Work Phone: [facility] 03-22-2024 11:58-0400 Diastolic blood pressure 66 mm[Hg] Oc Rose MMI TEACHER.BUCKET PUSHER Work Phone: [facility] 03-22-2024 11:58-0400 Heart rate 70 /min Oc Rose MMI TEACHER.BUCKET PUSHER Work Phone: [facility] 03-22-2024 11:58-0400 Respiratory rate 18 /min Oc Rose MMI TEACHER.BUCKET PUSHER Work Phone: [facility] 03-22-2024 11:58-0400 SaO2% (BldA) [Mass fraction] 99 % Oc Rose MMI TEACHER.BUCKET PUSHER Work Phone: [facility] 03-22-2024 11:58-0400 Systolic blood pressure 116 mm[Hg] Oc Rose MMI TEACHER.BUCKET PUSHER Work Phone: [facility] 03-19-2024 13:43-0400 Heart rate 74 /min Grace Prebish MMI TEACHER.BUCKET PUSHER Work Phone: [facility] 03-19-2024 13:43-0400 Respiratory rate 16 /min Grace Prebish MMI TEACHER.BUCKET PUSHER Work Phone: [facility] 03-19-2024 13:43-0400 SaO2% (BldA) [Mass fraction] 97 % Grace Prebish MMI TEACHER.BUCKET PUSHER Work Phone: [facility] 02-27-2024 12:58-0400 Heart rate 79 /min Jak Diaz MD Work Phone: [facility] 02-27-2024 12:58-0400 Respiratory rate 16 /min Jak Diaz MD Work Phone: [facility] 02-27-2024 12:58-0400 SaO2% (BldA) [Mass fraction] 95 % Jak Diaz MD Work Phone: [facility] 01-13-2024 11:49-0400 Body height 162.6 cm Silvano Denbow PA-C Work Phone: [facility] 01-13-2024 11:49-0400 Body temperature 97.2 [degF] Silvano Denbow PA-C Work Phone: [facility] 01-13-2024 11:49-0400 Body weight 58.97 kg Silvano Denbow PA-C Work Phone: [facility] 01-13-2024 11:49-0400 Diastolic blood pressure 62 mm[Hg] Silvano Denbow PA-C Work Phone: [facility] 01-13-2024 11:49-0400 Heart rate 82 /min Silvano Denbow PA-C Work Phone: [facility] 01-13-2024 11:49-0400 Respiratory rate 12 /min Silvano Denbow PA-C Work Phone: [facility] 01-13-2024 11:49-0400 SaO2% (BldA) [Mass fraction] 99 % Silvano Denbow PA-C Work Phone: [facility] 01-13-2024 11:49-0400 Systolic blood pressure 110 mm[Hg] Silvano Denbow PA-C Work Phone: [facility] 12-02-2023 11:05-0500 Body height 162.6 cm Silvano Denbow PA-C Work Phone: [facility] 12-02-2023 11:05-0500 Body temperature 97.11 [degF] Silvano Denbow PA-C Work Phone: [facility] 12-02-2023 11:05-0500 Body weight 59.88 kg Silvano Denbow PA-C Work Phone: [facility] 12-02-2023 11:05-0500 Diastolic blood pressure 62 mm[Hg] Silvano Denbow PA-C Work Phone: [facility] 12-02-2023 11:05-0500 Heart rate 80 /min Silvano Denbow PA-C Work Phone: [facility] 12-02-2023 11:05-0500 Respiratory rate 12 /min Silvano Denbow PA-C Work Phone: [facility] 12-02-2023 11:05-0500 SaO2% (BldA) [Mass fraction] 100 % Silvano Denbow PA-C Work Phone: [facility] 12-02-2023 11:05-0500 Systolic blood pressure 130 mm[Hg] Silvano Denbow PA-C Work Phone: [facility] 11-29-2023 10:47-0500 Diastolic blood pressure 88 mm[Hg] Ravi Allen MD Work Phone: [facility] 11-29-2023 10:47-0500 Heart rate 69 /min Ravi Allen MD Work Phone: [facility] 11-29-2023 10:47-0500 Respiratory rate 20 /min Ravi Allen MD Work Phone: [facility] 11-29-2023 10:47-0500 SaO2% (BldA) [Mass fraction] 97 % Ravi Allen MD Work Phone: [facility] 11-29-2023 10:47-0500 Systolic blood pressure 105 mm[Hg] Ravi Allen MD Work Phone: [facility] 11-29-2023 10:32-0500 Body temperature 97.5 [degF] Ravi Allen MD Work Phone: [facility] 11-28-2023 13:01-0500 Heart rate 86 /min Jak Diaz MD Work Phone: [facility] 11-28-2023 13:01-0500 Respiratory rate 16 /min Jak Diaz MD Work Phone: [facility] 11-28-2023 13:01-0500 SaO2% (BldA) [Mass fraction] 98 % Jak Diaz MD Work Phone: [facility] 10-02-2023 10:30-0500 Diastolic blood pressure 75 mm[Hg] Jak Diaz MD Work Phone: [facility] 10-02-2023 10:30-0500 Heart rate 65 /min Jak Diaz MD Work Phone: [facility] 10-02-2023 10:30-0500 Respiratory rate 15 /min Jak Diaz MD Work Phone: [facility] 10-02-2023 10:30-0500 SaO2% (BldA) [Mass fraction] 94 % Jak Diaz MD Work Phone: [facility] 10-02-2023 10:30-0500 Systolic blood pressure 145 mm[Hg] Jak Diaz MD Work Phone: [facility] 08-28-2023 13:30-0500 Body height 162.6 cm Estelle Dodge MMI TEACHER.BUCKET PUSHER Work Phone: [facility] 08-28-2023 13:30-0500 Body weight 61.69 kg Estelle Dodge MMI TEACHER.BUCKET PUSHER Work Phone: [facility] 08-26-2023 14:14-0500 Diastolic blood pressure 76 mm[Hg] Jak Diaz MD Work Phone: [facility] 08-26-2023 14:14-0500 Heart rate 66 /min Jak Diaz MD Work Phone: [facility] 08-26-2023 14:14-0500 Respiratory rate 17 /min Jak Diaz MD Work Phone: [facility] 08-26-2023 14:14-0500 SaO2% (BldA) [Mass fraction] 94 % Jak Diaz MD Work Phone: [facility] 08-26-2023 14:14-0500 Systolic blood pressure 162 mm[Hg] Jak Diaz MD Work Phone: [facility] 08-12-2023 15:32-0400 Body weight 61.69 kg Aminata Older MMI TEACHER.BUCKET PUSHER Work Phone: [facility] 08-12-2023 15:32-0400 Diastolic blood pressure 80 mm[Hg] Aminata Older MMI TEACHER.BUCKET PUSHER Work Phone: [facility] 08-12-2023 15:32-0400 Heart rate 68 /min Aminata Older MMI TEACHER.BUCKET PUSHER Work Phone: [facility] 08-12-2023 15:32-0400 Respiratory rate 16 /min Aminata Older MMI TEACHER.BUCKET PUSHER Work Phone: [facility] 08-12-2023 15:32-0400 SaO2% (BldA) [Mass fraction] 100 % Aminata Older MMI TEACHER.BUCKET PUSHER Work Phone: [facility] 08-12-2023 15:32-0400 Systolic blood pressure 118 mm[Hg] Aminata Older MMI TEACHER.BUCKET PUSHER Work Phone: [facility] 08-12-2023 14:44-0400 Body height 162.6 cm Giuliana Ernst MMI TEACHER.BUCKET PUSHER Work Phone: [facility] 08-12-2023 14:44-0400 Body weight 61.69 kg Giuliana Ernst MMI TEACHER.BUCKET PUSHER Work Phone: [facility] 08-07-2023 10:34-0400 Diastolic blood pressure 70 mm[Hg] Jak Diaz MD Work Phone: [facility] 08-07-2023 10:34-0400 Heart rate 68 /min Jak Diaz MD Work Phone: [facility] 08-07-2023 10:34-0400 Respiratory rate 14 /min Jak Diaz MD Work Phone: [facility] 08-07-2023 10:34-0400 SaO2% (BldA) [Mass fraction] 97 % Jak Diaz MD Work Phone: [facility] 08-07-2023 10:34-0400 Systolic blood pressure 118 mm[Hg] Jak Diaz MD Work Phone: [facility] 07-25-2023 15:41-0400 Body height 163.8 cm Zhane Romeoer PA-C Work Phone: [facility] 07-25-2023 15:41-0400 Body weight 61.69 kg Zhane Romeoer PA-C Work Phone: [facility] 07-25-2023 15:41-0400 Diastolic blood pressure 76 mm[Hg] Zhane Romeoer PA-C Work Phone: [facility] 07-25-2023 15:41-0400 Heart rate 64 /min Zhane Romeoer PA-C Work Phone: [facility] 07-25-2023 15:41-0400 Systolic blood pressure 156 mm[Hg] Zhane Romeoer PA-C Work Phone: [facility] 07-19-2023 12:56-0400 Body height 163.8 cm Silvano Denbow PA-C Work Phone: [facility] 07-19-2023 12:56-0400 Body temperature 97.5 [degF] Silvano Denbow PA-C Work Phone: [facility] 07-19-2023 12:56-0400 Body weight 61.69 kg Silvano Denbow PA-C Work Phone: [facility] 07-19-2023 12:56-0400 Diastolic blood pressure 70 mm[Hg] Silvano Denbow PA-C Work Phone: [facility] 07-19-2023 12:56-0400 Heart rate 68 /min Silvano Denbow PA-C Work Phone: [facility] 07-19-2023 12:56-0400 Respiratory rate 12 /min Silvano Denbow PA-C Work Phone: [facility] 07-19-2023 12:56-0400 SaO2% (BldA) [Mass fraction] 92 % Silvano Denbow PA-C Work Phone: [facility] 07-19-2023 12:56-0400 Systolic blood pressure 140 mm[Hg] Silvano Denbow PA-C Work Phone: [facility] 07-08-2023 11:04-0400 Body weight 62.14 kg Raman Greenwood MD Work Phone: [facility] 07-08-2023 11:04-0400 Diastolic blood pressure 63 mm[Hg] Raman Greenwood MD Work Phone: [facility] 07-08-2023 11:04-0400 Heart rate 75 /min Raman Greenwood MD Work Phone: [facility] 07-08-2023 11:04-0400 SaO2% (BldA) [Mass fraction] 97 % Raman Greenwood MD Work Phone: [facility] 07-08-2023 11:04-0400 Systolic blood pressure 116 mm[Hg] Raman Greenwood MD Work Phone: [facility] 07-04-2023 11:15-0400 Heart rate 71 /min Jak Diaz MD Work Phone: [facility] 07-04-2023 11:15-0400 Respiratory rate 16 /min Jak Diaz MD Work Phone: [facility] 07-04-2023 11:15-0400 SaO2% (BldA) [Mass fraction] 96 % Jak Diaz MD Work Phone: [facility] 06-18-2023 12:54-0400 Body weight 62.96 kg Zhane Sylvester PA-C Work Phone: [facility] 06-18-2023 12:54-0400 Diastolic blood pressure 60 mm[Hg] Zhane Romeoer PA-C Work Phone: [facility] 06-18-2023 12:54-0400 Heart rate 69 /min Zhane Romeoer PA-C Work Phone: [facility] 06-18-2023 12:54-0400 Respiratory rate 16 /min Zhane Romeoer PA-C Work Phone: [facility] 06-18-2023 12:54-0400 SaO2% (BldA) [Mass fraction] 98 % Zhanelouie Romeoer PA-C Work Phone: [facility] 06-18-2023 12:54-0400 Systolic blood pressure 118 mm[Hg] Zhanelouie Romeoer PA-C Work Phone: [facility] 06-05-2023 12:40-0400 Body height 163.8 cm Silvano Denbow PA-C Work Phone: [facility] 06-05-2023 12:40-0400 Body temperature 97.2 [degF] Silvano Denbow PA-C Work Phone: [facility] 06-05-2023 12:40-0400 Body weight 63.5 kg Silvano Denbow PA-C Work Phone: [facility] 06-05-2023 12:40-0400 Diastolic blood pressure 56 mm[Hg] Silvano Denbow PA-C Work Phone: [facility] 06-05-2023 12:40-0400 Heart rate 58 /min Silvano Denbow PA-C Work Phone: [facility] 06-05-2023 12:40-0400 Respiratory rate 12 /min Silvano Denbow PA-C Work Phone: [facility] 06-05-2023 12:40-0400 SaO2% (BldA) [Mass fraction] 100 % Silvano Denbow PA-C Work Phone: [facility] 06-05-2023 12:40-0400 Systolic blood pressure 106 mm[Hg] Silvano Denbow PA-C Work Phone: [facility] 05-21-2023 14:45-0400 Body temperature 97.81 [degF] Zhane er PA-C Work Phone: [facility] 05-21-2023 14:45-0400 Body weight 62.87 kg Zhane er PA-C Work Phone: [facility] 05-21-2023 14:45-0400 Diastolic blood pressure 48 mm[Hg] Zhane Romeoer PA-C Work Phone: [facility] 05-21-2023 14:45-0400 Heart rate 73 /min Zhane Romeoer PA-C Work Phone: [facility] 05-21-2023 14:45-0400 Respiratory rate 16 /min Zhane Romeoer PA-C Work Phone: [facility] 05-21-2023 14:45-0400 SaO2% (BldA) [Mass fraction] 96 % Zhane Romeoer PA-C Work Phone: [facility] 05-21-2023 14:45-0400 Systolic blood pressure 97 mm[Hg] Zhane Romeoer PA-C Work Phone: [facility] 04-05-2023 13:39-0400 Body temperature 97.5 [degF] Marvel Rizzo MD Work Phone: [facility] 04-05-2023 13:39-0400 Body weight 66.68 kg Marvel Rizzo MD Work Phone: [facility] 04-05-2023 13:39-0400 Diastolic blood pressure 72 mm[Hg] Marvel Rizzo MD Work Phone: [facility] 04-05-2023 13:39-0400 Heart rate 74 /min Marvel Rizzo MD Work Phone: [facility] 04-05-2023 13:39-0400 Respiratory rate 16 /min Marvel Rizzo MD Work Phone: [facility] 04-05-2023 13:39-0400 SaO2% (BldA) [Mass fraction] 97 % Marvel Rizzo MD Work Phone: [facility] 04-05-2023 13:39-0400 Systolic blood pressure 124 mm[Hg] Marvel Rizzo MD Work Phone: [facility] 03-25-2023 15:14-0400 Body temperature 97.7 [degF] Ranjan Connolly Jr., MD Work Phone: [facility] 03-25-2023 15:14-0400 Body weight 67.22 kg Ranjan Connolly Jr., MD Work Phone: [facility] 03-25-2023 15:14-0400 Diastolic blood pressure 66 mm[Hg] Ranjan Connolly Jr., MD Work Phone: [facility] 03-25-2023 15:14-0400 Heart rate 77 /min Ranjan Connolly Jr., MD Work Phone: [facility] 03-25-2023 15:14-0400 Respiratory rate 18 /min Ranjan Connolly Jr., MD Work Phone: [facility] 03-25-2023 15:14-0400 SaO2% (BldA) [Mass fraction] 97 % Ranjan Connolly Jr., MD Work Phone: [facility] 03-25-2023 15:14-0400 Systolic blood pressure 101 mm[Hg] Ranjan Connolly Jr., MD Work Phone: [facility] 12-28-2022 14:06-0500 Body height 163.8 cm Marvel Rizzo MD Work Phone: [facility] 12-28-2022 14:06-0500 Body temperature 98.01 [degF] Marvel Rizzo MD Work Phone: [facility] 12-28-2022 14:06-0500 Body weight 69.4 kg Marvel Rizzo MD Work Phone: [facility] 12-28-2022 14:06-0500 Diastolic blood pressure 66 mm[Hg] Marvel Rizzo MD Work Phone: [facility] 12-28-2022 14:06-0500 Heart rate 74 /min Marvel Rizzo MD Work Phone: [facility] 12-28-2022 14:06-0500 Respiratory rate 12 /min Marvel Rizzo MD Work Phone: [facility] 12-28-2022 14:06-0500 SaO2% (BldA) [Mass fraction] 97 % Marvel Rizzo MD Work Phone: [facility] 12-28-2022 14:06-0500 Systolic blood pressure 122 mm[Hg] Marvel Rizzo MD Work Phone: [facility] 11-23-2022 15:20-0500 Body temperature 97.81 [degF] Ranjan Connolly Jr., MD Work Phone: [facility] 11-23-2022 15:20-0500 Body weight 68.31 kg Ranjan Connolly Jr., MD Work Phone: [facility] 11-23-2022 15:20-0500 Diastolic blood pressure 82 mm[Hg] Ranjan Connolly Jr., MD Work Phone: [facility] 11-23-2022 15:20-0500 Heart rate 78 /min Ranjan Connolly Jr., MD Work Phone: [facility] 11-23-2022 15:20-0500 Respiratory rate 16 /min Ranjan Connolly Jr., MD Work Phone: [facility] 11-23-2022 15:20-0500 SaO2% (BldA) [Mass fraction] 100 % Ranjan Connolly Jr., MD Work Phone: [facility] 11-23-2022 15:20-0500 Systolic blood pressure 124 mm[Hg] Ranjan Connolly Jr., MD Work Phone: [facility] 07-26-2022 14:26-0400 Body temperature 98.1 [degF] Era Dahlhausen MMI TEACHER.BUCKET PUSHER Work Phone: [facility] 07-26-2022 14:26-0400 Body weight 65.95 kg Era Dahlhausen MMI TEACHER.BUCKET PUSHER Work Phone: [facility] 07-26-2022 14:26-0400 Diastolic blood pressure 68 mm[Hg] Era Dahlhausen MMI TEACHER.BUCKET PUSHER Work Phone: [facility] 07-26-2022 14:26-0400 Heart rate 74 /min Era Dahlhausen MMI TEACHER.BUCKET PUSHER Work Phone: [facility] 07-26-2022 14:26-0400 Respiratory rate 16 /min Era Dahlhausen MMI TEACHER.BUCKET PUSHER Work Phone: [facility] 07-26-2022 14:26-0400 SaO2% (BldA) [Mass fraction] 96 % Era Dahlhausen MMI TEACHER.BUCKET PUSHER Work Phone: [facility] 07-26-2022 14:26-0400 Systolic blood pressure 100 mm[Hg] Era Dahlhausen MMI TEACHER.BUCKET PUSHER Work Phone: [facility] 06-11-2022 10:07-0400 Body height 163.8 cm Raman Greenwood MD Work Phone: [facility] 06-11-2022 10:07-0400 Body weight 63.5 kg Raman Greenwood MD Work Phone: [facility] 06-11-2022 10:07-0400 Diastolic blood pressure 76 mm[Hg] Raman Greenwood MD Work Phone: [facility] 06-11-2022 10:07-0400 Heart rate 66 /min Raman Greenwood MD Work Phone: [facility] 06-11-2022 10:07-0400 Systolic blood pressure 120 mm[Hg] Raman Greenwood MD Work Phone: [facility] 05-21-2022 16:44-0400 Body temperature 97.7 [degF] Ranjan Connolly Jr., MD Work Phone: [facility] 05-21-2022 16:44-0400 Body weight 64.32 kg Ranjan oCnnolly Jr., MD Work Phone: [facility] 05-21-2022 16:44-0400 Diastolic blood pressure 56 mm[Hg] Ranjan Connolly Jr., MD Work Phone: [facility] 05-21-2022 16:44-0400 Heart rate 60 /min Ranjan Connolly Jr., MD Work Phone: [facility] 05-21-2022 16:44-0400 Respiratory rate 18 /min Ranjan Connolly Jr., MD Work Phone: [facility] 05-21-2022 16:44-0400 SaO2% (BldA) [Mass fraction] 96 % Ranjan Connolly Jr., MD Work Phone: [facility] 05-21-2022 16:44-0400 Systolic blood pressure 104 mm[Hg] Ranjan Connolly Jr., MD Work Phone: [facility] 05-01-2022 14:05-0400 Body height 163.8 cm Marvel Rizzo MD Work Phone: [facility] 05-01-2022 14:05-0400 Body temperature 98.2 [degF] Marvel Rizzo MD Work Phone: [facility] 05-01-2022 14:05-0400 Body weight 65.32 kg Marvel Rizzo MD Work Phone: [facility] 05-01-2022 14:05-0400 Diastolic blood pressure 60 mm[Hg] Marvel Rizzo MD Work Phone: [facility] 05-01-2022 14:05-0400 Heart rate 67 /min Marvel Rizzo MD Work Phone: [facility] 05-01-2022 14:05-0400 Respiratory rate 12 /min Marvel Rizzo MD Work Phone: [facility] 05-01-2022 14:05-0400 SaO2% (BldA) [Mass fraction] 97 % Marvel Rizzo MD Work Phone: [facility] 05-01-2022 14:05-0400 Systolic blood pressure 110 mm[Hg] Marvel Rizzo MD Work Phone: [facility] 04-10-2022 11:23-0400 Body temperature 97.5 [degF] Hina Murillo PA-C Work Phone: [facility] 04-10-2022 11:23-0400 Body weight 65.68 kg Hina Athy PA-C Work Phone: [facility] 04-10-2022 11:23-0400 Diastolic blood pressure 68 mm[Hg] Hina Athy PA-C Work Phone: [facility] 04-10-2022 11:23-0400 Heart rate 72 /min Hina Athy PA-C Work Phone: [facility] 04-10-2022 11:23-0400 Respiratory rate 16 /min Hina Athy PA-C Work Phone: [facility] 04-10-2022 11:23-0400 SaO2% (BldA) [Mass fraction] 98 % Hina Athy PA-C Work Phone: [facility] 04-10-2022 11:23-0400 Systolic blood pressure 122 mm[Hg] Hina Athy PA-C Work Phone: [facility] Encounters Encounter Date Encounter Type Care Provider Facility Start: 08-11-2024 End: 08-11-2024 Orders Only Sayra Mabry MD Work Phone: Neurology Comment on above: Parkinson's disease with dyskinesia, unspecified whether manifestations fluctuate (HCC) (Primary Dx); Dysphagia, unspecified type Start: 08-10-2024 End: 08-10-2024 ambulatory Shara Tapia PT Work Phone: [facility] Comment on above: Impaired functional mobility, balance, gait, and endurance (Primary Dx); Parkinson's disease with dyskinesia, unspecified whether manifestations fluctuate (HCC) Start: 07-31-2024 End: 07-31-2024 ambulatory MARVEL RIZZO Facility:[facility] Start: 07-31-2024 End: 07-31-2024 Office outpatient visit 40 minutes Sayra Mabry MD Work Phone: Neurology Comment on above: Parkinson's disease with dyskinesia, unspecified whether manifestations fluctuate (HCC) (Primary Dx) Start: 07-23-2024 End: 07-23-2024 ambulatory Kim Madrigal RN Work Phone: [employer] Start: 07-23-2024 End: 07-23-2024 Telephone follow-up Kim Madrigal RN Work Phone: [employer] Comment on above: Transition Of Care ( Follow up day 8) Weekly phone contact (Recurring) for Transitional Care Management Start: 07-21-2024 End: 07-21-2024 Office outpatient visit 25 minutes Marvel Rizzo MD Work Phone: [facility] [place] Comment on above: Hyponatremia (Primar y Dx); Hypotension, unspecified hypotension type; Parkinson's disease with dyskinesia, unspecified whether manifestations fluctuate (HCC); Orthostatic hypotension; Weight loss Start: 07-21-2024 End: 07-21-2024 [facility] Facility:[facility] Start: 07-16-2024 End: 07-16-2024 Patient Outreach Kim Madrigal RN Work Phone: [employer] Comment on above: Transition Of Care ( Hospital discharge [facility] 07/15 - Initial outreach/) Initial phone contact for Transitional Care Management Start: 07-14-2024 End: 07-15-2024 ambulatory RAMSEY MAYORGA Facility:[facility] Start: 07-14-2024 End: 07-15-2024 Telephone encounter Marvel Rizzo MD Work Phone: [facility] Comment on above: Patient Update Appointment Start: 07-02-2024 End: 07-02-2024 ambulatory [facility] Facility:[facility] Start: 07-02-2024 End: 07-02-2024 Patient encounter procedure Jak Diaz MD Work Phone: [facility] Comment on above: Trigger Point Inject ion (tpi); Neck Pain (Bilateral - left is worse); Pain (Shoulder Pain) (Bilateral) Start: 06-30-2024 End: 06-30-2024 ambulatory Grace Hunt APRN.BUCKET PUSHER Work Phone: [facility] Comment on above: Myofascial pain (Anabelle ligia Dx); Cervical spondylosis without myelopathy; Parkinson's disease with dyskinesia, unspecified whether manifestations fluctuate (HCC) Start: 06-30-2024 End: 06-30-2024 Telemedicine consultation with patient Grace Hunt APRN.ADRIANNA Work Phone: [facility] Start: 06-25-2024 End: 06-25-2024 ambulatory [facility] Kalin ISSA [facility] Comment on above: Gastroesophageal ref lux disease with esophagitis without hemorrhage (Primary Dx); Other constipation Start: 06-25-2024 End: 06-25-2024 Telemedicine consultation with patient Era Kalin ISSA [facility] Start: 06-16-2024 End: 06-16-2024 ambulatory MARVEL RIZZO Facility:[facility] Start: 06-16-2024 End: 06-16-2024 Subsequent [facility] Work Phone: Radiology Comment on above: Meningioma (HCC) [D3 2.9] Start: 06-11-2024 End: 06-11-2024 Patient encounter procedure Jak Diaz MD [facility] Comment on above: Myofascial pain (Anabelle ligia Dx); Cervical spondylosis without myelopathy Start: 06-11-2024 End: 06-11-2024 ambulatory MARVEL RIZZO Facility:[facility] Start: 06-05-2024 End: 06-05-2024 Office outpatient visit 25 minutes Marvel Rizzo MD Work Phone: [facility] [place] Comment on above: Depression, unspecif ied depression type (Primary Dx); Panic attacks; Anxiety; Major depressive disorder, single episode, 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); Autonomic dysfunction; Intracranial meningioma (HCC); Hyperlipidemia, mixed; Weight gain; Fatigue, unspecified type; Vitamin D deficiency; Vitamin B12 deficiency Start: 06-05-2024 End: 06-05-2024 ambulatory MARVEL RIZZO Facility:[facility] Start: 06-03-2024 Telephone encounter Marvel porter MD Work Phone: [facility] [place] Comment on above: Panic attacks Start: 05-15-2024 Refill Marvel Wright Work Phone: [facility] [place] Comment on above: Refill Request Start: 05-04-2024 End: 05-04-2024 [facility] Facility:[facility] Start: 05-04-2024 End: 05-04-2024 Patient encounter procedure Brissa Young APRN.BUCKET PUSHER Work Phone: [facility] Comment on above: Rash (Primary Dx) Start: 05-03-2024 Refill Ranjan paredes MD Work Phone: Neurology Comment on above: Refill Request Start: 05-01-2024 Telephone encounter Grace morales APRN.BUCKET PUSHER Work Phone: [facility] Comment on above: Returning Patient's Call Start: 04-30-2024 Telephone encounter Grace morales APRN.BUCKET PUSHER Work Phone: [facility] Comment on above: Appointment Start: 04-30-2024 End: 04-30-2024 Telemedicine consultation with patient Grace Gonzalezcarmen MMI TEACHER.BUCKET PUSHER Work Phone: [facility] Start: 04-30-2024 End: 04-30-2024 ambulatory Grace Keeniko MMI TEACHER.BUCKET PUSHER Work Phone: [facility] Comment on above: Myofascial pain (Anabelle ligia Dx); Cervical spondylosis without myelopathy; Parkinson's disease with dyskinesia, unspecified whether manifestations fluctuate (HCC) Start: 03-25-2024 End: 03-25-2024 ambulatory [facility] Facility:[facility] Start: 03-25-2024 End: 03-25-2024 Patient encounter procedure Sayra Mabry MD Work Phone: Neurology Comment on above: Orthostatic hypotens ion; Syncope, unspecified syncope type; Parkinson's disease with dyskinesia, unspecified whether manifestations fluctuate (HCC) Start: 03-23-2024 End: 03-23-2024 [facility] Facility:[facility] Start: 03-23-2024 End: 03-23-2024 Patient encounter procedure Era Gagnon PA-C Work Phone: [facility] [place] Comment on above: Gastroesophageal ref lux disease with esophagitis without hemorrhage (Primary Dx); Schatzki's ring; Other constipation Start: 03-22-2024 End: 03-22-2024 [facility] Facility:[facility] Start: 03-22-2024 End: 03-22-2024 Patient encounter procedure Oc Rose APRN.BUCKET PUSHER Work Phone: [facility] Comment on above: Rash (Primary Dx); Sore throat Start: 03-19-2024 End: 03-19-2024 Patient encounter procedure Grace Hunt APRN.BUCKET PUSHER Work Phone: [facility] Comment on above: Trigger Point Inject ion (Neck and shoulder) Start: 03-19-2024 End: 03-19-2024 [facility] Start: 03-13-2024 Telephone encounter Oc Rose APRN.BUCKET PUSHER Work Phone: [facility] Comment on above: Results; Orders Start: 03-11-2024 End: 03-11-2024 [facility] Facility:[facility] Start: 02-27-2024 End: 02-27-2024 Patient encounter procedure Jak Diaz MD Work [facility] Comment on above: Cervical spondylosis without myelopathy (Primary Dx); Myofascial pain Start: 02-27-2024 End: 02-27-2024 [facility] Start: 01-13-2024 End: 01-13-2024 [facility] Facility:[facility] Start: 01-13-2024 End: 01-13-2024 Patient encounter procedure Silvano Vance PA-C Work Phone: [facility] [place] Comment on above: Orthostatic hypotens ion (Primary Dx); Syncope, unspecified syncope type; Parkinson's disease with dyskinesia, unspecified whether manifestations fluctuate (HCC); Mixed hyperlipidemia Start: 12-31-2023 End: 12-31-2023 ambulatory [facility] Facility:[facility] Start: 12-27-2023 ambulatory Zhane pruitt PA-C Work Phone: Neurology Comment on above: Ruby Start: 12-27-2023 E-mail encounter angie alvarez caregiver Zhane Sylvester PA-C Work Phone: [facility] Start: 12-24-2023 End: 12-24-2023 ambulatory [facility] Facility:[facility] Start: 12-03-2023 Telephone encounter Ranjan Connolly MD Work Phone: Neurology Comment on above: Appointment Start: 12-02-2023 End: 12-02-2023 [facility] Facility:[facility] Start: 12-02-2023 End: 12-02-2023 Patient encounter procedure Silvano Vance PA-C Work Phone: [facility] [place] Comment on above: Syncope, unspecified syncope type (Primary Dx); Mixed hyperlipidemia; Parkinson's disease with dyskinesia, unspecified whether manifestations fluctuate; Gastroesophageal reflux disease, unspecified whether esophagitis present Start: 11-29-2023 [facility] Facility:[facility] Start: 11-29-2023 End: 11-29-2023 Subsequent hospital visit by physician Ravi Allen MD Work Phone: [facility] Comment on above: Dysphagia, unspecifi ed type [R13.10] Start: 11-28-2023 Refill Jak Diaz MD Work Phone: [facility] Comment on above: Med Change Request Start: 11-28-2023 End: 11-28-2023 Patient encounter procedure Jak Diaz MD Work Phone: [facility] Comment on above: Cervical spondylosis without myelopathy (Primary Dx); Myofascial pain; Parkinson's disease with dyskinesia, unspecified whether manifestations fluctuate Start: 11-28-2023 End: 11-28-2023 ambulatory JAK DIAZ [facility] Start: 11-19-2023 End: 11-19-2023 [facility] Start: 11-11-2023 End: 11-11-2023 ambulatory [facility] Facility:[facility] Start: 11-07-2023 End: 11-07-2023 ambulatory [facility] Facility:[facility] Start: 11-06-2023 End: 11-06-2023 ambulatory [facility] Facility:[facility] Start: 10-31-2023 End: 10-31-2023 ambulatory GRACE PREBISH Facility:[facility] Start: 10-29-2023 End: 10-29-2023 ambulatory [facility] Facility:[facility] Start: 10-25-2023 End: 10-25-2023 ambulatory [facility] Facility:[facility] Start: 10-02-2023 End: 10-02-2023 Patient encounter procedure Jak Diaz MD Work Phone: [facility] Start: 10-02-2023 End: 10-02-2023 ambulatory Jak Diaz MD Work Phone: [facility] Comment on above: Injections (CRFA) Start: 09-17-2023 End: 09-18-2023 ambulatory Marley Amna Hill CCC-MARKETING PROJECT COORDINATOR Work Phone: [facility] Comment on above: Dysphagia, unspecifi ed type (Primary Dx); Parkinson's disease, unspecified whether dyskinesia present, unspecified whether manifestations fluctuate Start: 09-17-2023 End: 09-17-2023 Subsequent hospital visit by physician [facility] Work Phone: Radiology Comment on above: Dysphagia, unspecifi ed type [R13.10] Start: 08-28-2023 End: 08-28-2023 ambulatory Estelle Jamila Dodge MMI TEACHER.BUCKET PUSHER Work Phone: [facility] Comment on above: Cervical spondylosis without myelopathy (Primary Dx) Start: 08-28-2023 End: 08-28-2023 Telemedicine consultation with patient Estelle Dodge MMI TEACHER.BUCKET PUSHER Work Phone: [facility] Start: 08-26-2023 End: 08-26-2023 FQ visit, estab pt Jak Diaz MD Work Phone: [facility] Comment on above: Established Patient; Procedure; Neck Pain Start: 08-26-2023 End: 08-26-2023 Patient encounter procedure Jak Diaz MD Work Phone: [facility] Start: 08-26-2023 End: 08-26-2023 ambulatory JAK DIAZ Facility:[facility] Start: 08-13-2023 End: 08-13-2023 ambulatory Giuliana Ernst MMI TEACHER.BUCKET PUSHER Work Phone: [facility] Comment on above: Cervical spondylosis without myelopathy (Primary Dx) Start: 08-13-2023 End: 08-13-2023 Telemedicine consultation with patient Giuliana Ernst MMI TEACHER.BUCKET PUSHER Work Phone: [facility] Start: 08-12-2023 End: 08-12-2023 ambulatory [facility] Facility:[facility] Start: 08-12-2023 End: 08-12-2023 Patient encounter procedure Aminata Genny [place].BUCKET PUSHER Work Phone: [facility] [place] Comment on above: Parkinson's disease, unspecified whether dyskinesia present, unspecified whether manifestations fluctuate (Primary Dx); Mixed hyperlipidemia; Hypothyroidism, unspecified type; Gastroesophageal reflux disease, unspecified whether esophagitis present; Hypotension, unspecified hypotension type; Vitamin D deficiency Start: 08-09-2023 Telephone encounter Jak Diaz MD Work Phone: [facility] Comment on above: Procedure Follow Up (DR DIAZ 08/07/23) Start: 08-07-2023 End: 08-07-2023 [facility] visit, estab pt Jak Diaz MD Work Phone: [facility] Comment on above: Established Patient; Neck Pain; Procedure Start: 08-07-2023 End: 08-07-2023 Patient encounter procedure Jak Diaz MD Work Phone: [facility] Start: 08-02-2023 ambulatory Zhane pruitt PA-C Work Phone: Neurology Comment on above: Speech evaluation Start: 08-02-2023 E-mail encounter angie alvarez caregiver Zhane Sylvester PA-C Work Phone: [facility] Start: 08-01-2023 End: 08-01-2023 ambulatory Karen Francis CCC-MARKETING PROJECT COORDINATOR Work Phone: [facility] Comment on above: Parkinson's disease, unspecified whether dyskinesia present, unspecified whether manifestations fluctuate; Dysphagia, unspecified type Start: 07-25-2023 End: 07-25-2023 Patient encounter procedure Zhane Sylvester PA-C Work Phone: Neurology Comment on above: Parkinson's disease, unspecified whether dyskinesia present, unspecified whether manifestations fluctuate (Primary Dx); Orthostatic intolerance Start: 07-19-2023 End: 07-19-2023 Patient encounter procedure Silvano Vance PA-C Work Phone: [facility] [place] Comment on above: Hypotension, unspeci fied hypotension type (Primary Dx); Abdominal bloating; Need for influenza vaccination Start: 07-08-2023 End: 07-08-2023 Refill Marvel Rizzo MD Work Phone: [facility] [place] Comment on above: Refill Request Tachycardia (Primary Dx); Mixed hyperlipidemia Start: 07-04-2023 Telephone encounter Jak Diaz MD [facility] Comment on above: Injection Questions Start: 07-04-2023 End: 07-04-2023 Patient encounter procedure Jak Diaz MD Work [facility] Comment on above: Cervical spondylosis without myelopathy (Primary Dx); Myofascial pain Start: 06-18-2023 End: 06-18-2023 Patient encounter procedure Zhane Sylvester PA-C Work Phone: Neurology Comment on above: Parkinson's disease (HCC) (Primary Dx); Orthostatic hypotension; Imbalance; Dysphagia, unspecified type Start: 06-05-2023 Telephone encounter Ranjan Connolly MD Work Phone: Neurology Comment on above: Appointment; Hospita l Follow Up Start: 06-05-2023 End: 06-05-2023 Patient encounter procedure Silvano Vance PA-C Work Phone: [facility] [place] Comment on above: Hypotension, unspeci fied hypotension type (Primary Dx); Parkinson disease (HCC); Adjustment disorder with anxiety; Panic attacks Start: 06-03-2023 End: 06-03-2023 ambulatory Steve Chavez PT Work Phone: [facility] Comment on above: Neck pain (Primary D x); Neck muscle weakness Start: 05-31-2023 ambulatory Marvel Alvarez D Work Phone: [facility] [place] Comment on above: low blood pressure; Dizziness Start: 05-28-2023 End: 05-28-2023 ambulatory Steve Chavez PT Work Phone: [facility] Comment on above: Neck pain (Primary D x); Neck muscle weakness Start: 05-25-2023 Refill Aminata Royal APRN, .CNP Work Phone: [facility] Comment on above: Refill Request Start: 05-22-2023 ambulatory Zhane pruitt PA-C Work Phone: Neurology Comment on above: Medication change Start: 05-22-2023 E-mail encounter fro m caregiver Zhane Sylvester PA-C Work Phone: [facility] Start: 05-21-2023 End: 05-21-2023 Patient encounter procedure Zhane Sylvester PA-C Work Phone: Neurology Comment on above: Parkinson disease (H CC) (Primary Dx); Intracranial meningioma (HCC) Start: 05-20-2023 End: 05-20-2023 ambulatory Steve Chavez PT Work Phone: [facility] Comment on above: Neck pain (Primary D x); Neck muscle weakness Start: 05-08-2023 End: 05-08-2023 Patient encounter procedure Paula Pacheco MMI TEACHER.BUCKET PUSHER Work Phone: [facility] Comment on above: Syncope, unspecified syncope type (Primary Dx) Start: 05-06-2023 End: 05-06-2023 ambulatory Mary Ely MMI TEACHER.BUCKET PUSHER Work Phone: Neurosurgery Comment on above: Meningioma (HCC) (Pr imary Dx) Start: 05-06-2023 End: 05-06-2023 Telemedicine consultation with patient Mary Ely APRN.BUCKET PUSHER Work Phone: [facility] Start: 05-02-2023 End: 05-02-2023 ambulatory Steve Kathy PT Work Phone: [facility] Comment on above: Neck pain (Primary D x); Neck muscle weakness Start: 04-29-2023 End: 04-29-2023 ambulatory Steve Kathy PT Work Phone: [facility] Comment on above: Neck pain (Primary D x); Neck muscle weakness Start: 04-22-2023 End: 04-22-2023 ambulatory Steve Kathy PT Work Phone: [facility] Comment on above: Neck pain (Primary D x); Neck muscle weakness Start: 04-18-2023 End: 04-18-2023 ambulatory Steve Kathy PT, DPT Work Phone: [facility] Comment on above: Neck pain (Primary D x); Neck muscle weakness Start: 04-15-2023 End: 04-15-2023 ambulatory Steve Kathy PT, DPT Work Phone: [facility] Comment on above: Neck pain (Primary D x); Neck muscle weakness Start: 04-11-2023 Telephone encounter Marvel porter MD Work Phone: [facility] [place] Comment on above: Results Start: 04-11-2023 End: 04-11-2023 ambulatory Steve Kathy PT, DPT Work Phone: [facility] Comment on above: Neck pain (Primary D x); Neck muscle weakness Start: 04-09-2023 End: 04-09-2023 ambulatory Steve Chavez PT, DPT Work Phone: [facility] Comment on above: Neck pain (Primary D x); Neck muscle weakness Start: 04-05-2023 End: 04-05-2023 Subsequent hospital visit by physician [facility] [facility] Work Phone: Radiology Comment on above: Neck pain [M54.2] Start: 04-05-2023 End: 04-05-2023 Patient encounter procedure Marvel Rizzo MD Work Phone: Internal Medicine [place] Comment on above: Neck pain (Primary D x); Neck muscle weakness; Kyphosis of thoracic region, unspecified kyphosis type Start: 03-25-2023 End: 03-25-2023 Patient encounter procedure Ranjan Connolly MD Work Phone: Neurology Comment on above: Parkinson disease (H CC) (Primary Dx); RBD (REM behavioral disorder); Small fiber neuropathy; Intracranial meningioma (HCC) Start: 03-19-2023 ambulatory Marvel Wright Work Phone: Internal Medicine [facility] Start: 12-28-2022 End: 12-28-2022 Patient encounter procedure Marvel Rizzo MD Work Phone: Internal Medicine [place] Comment on above: Recurrent major depr essive disorder, remission status unspecified (HCC) (Primary Dx); Intracranial meningioma (HCC); Parkinson disease (HCC); Essential hypertension, benign; Mixed hyperlipidemia; Major depressive disorder, single episode, 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) Start: 11-23-2022 End: 11-23-2022 Patient encounter procedure Ranjan Connolly MD Work Phone: Neurology Comment on above: Parkinson disease (H CC) (Primary Dx); RBD (REM behavioral disorder); Small fiber neuropathy; Intracranial meningioma (HCC) Start: 08-17-2022 Patient encounter procedure Momo Keene MD Work Phone: [facility] Start: 08-17-2022 Radiation Oncology Note Momo Keene MD Work Phone: Radiation Oncology Comment on above: Procedure Start: 08-16-2022 End: 08-16-2022 Patient encounter procedure Mask Placement Neus Ca LLD Work Phone: Neurosurgery Comment on above: Meningioma (HCC) (Pr imary Dx) Start: 08-16-2022 Radiation Oncology Note Manohar Muller MD Work Phone: Radiation Oncology Comment on above: Procedure Start: 08-15-2022 End: 08-15-2022 Patient encounter procedure Mask Placement Neus Ca LLD Work Phone: Neurosurgery Comment on above: Meningioma (HCC) (Pr imary Dx) Start: 08-15-2022 Radiation Oncology Note [facility] Provider [facility] Comment on above: Procedure Start: 08-14-2022 End: 08-14-2022 Patient encounter procedure Mask Placement Neus Ca LLD Work Phone: Neurosurgery Comment on above: Meningioma (HCC) (Pr imary Dx) Intracranial meningi rickie (HCC) (Primary Dx) Start: 08-14-2022 Radiation Oncology Note Momo Keene MD Work Phone: Radiation Oncology Comment on above: Procedure Start: 08-07-2022 Patient encounter procedure Momo Keene MD Work Phone: [facility] Start: 08-07-2022 Radiation Oncology Note Momo Keene MD Work Phone: Radiation Oncology Comment on above: Simulation Note Treatment Planning Start: 08-07-2022 End: 08-07-2022 Subsequent hospital visit by physician [facility] Work Phone: Radiology Start: 08-06-2022 Telephone encounter Eunice navarrete Therapist Radiation Oncology Comment on above: Patient Education (M ask simulation instructions) Start: 07-26-2022 End: 07-26-2022 Patient encounter procedure Era Madden APRN.BUCKET PUSHER Work Phone: Neurology Comment on above: Parkinson disease (H CC) (Primary Dx); Intracranial meningioma (HCC); Small fiber neuropathy Start: 06-11-2022 End: 06-11-2022 Patient encounter procedure Raman Greenwood MD Work Phone: Cardiology Comment on above: Essential hypertensi on, benign (Primary Dx) Start: 05-21-2022 End: 05-21-2022 Patient encounter procedure Ranjan Connolly MD Work Phone: Neurology Comment on above: Parkinson disease (H CC) (Primary Dx); Intracranial meningioma (HCC); Small fiber neuropathy Start: 05-03-2022 End: 05-03-2022 ambulatory Semaj Rodriguez MD Work Phone: [facility] Comment on above: Meningioma (HCC) (Pr imary Dx) Intracranial meningi rickie (HCC) (Primary Dx) Start: 05-03-2022 End: 05-03-2022 Telemedicine consultation with patient Semaj Rodriguez MD Work Phone: [facility] Start: 05-01-2022 End: 05-01-2022 Patient encounter procedure Marvel Rizzo MD Work Phone: Internal Medicine [place] Comment on above: Balance problem (Anabelle ligia Dx); Hypothyroidism, unspecified type; Numbness and tingling; Vitamin D deficiency; Vitamin B12 deficiency Start: 04-10-2022 End: 04-10-2022 Patient encounter procedure Hina Murillo PA-C Work Phone: [facility] Comment on above: Allergic contact ame matitis due to plants, except food (Primary Dx) Start: 04-05-2022 Telephone encounter Mary saini APRN.CNP Work Phone: [facility] Comment on above: Patient Update Start: 03-28-2022 End: 03-28-2022 ambulatory Mary Ely APRN.BUCKET PUSHER Work Phone: [facility] Comment on above: Intracranial meningi rickie (HCC) (Primary Dx) Start: 03-28-2022 End: 03-28-2022 Telemedicine consultation with patient Mary Ely APRN.CNP Work Phone: [facility] Start: 03-26-2022 End: 03-26-2022 Subsequent hospital visit by physician [employer] [facility] (I-Stat/1.5t) Work Phone: Radiology Comment on above: Benign neoplasm of b rain, 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] Start: 03-11-2022 ambulatory Ranjan paredes MD Work Phone: Neurology Comment on above: Concerns regarding n ew Parkinson s developments Procedures Date Procedure Procedure Detail Performing Clinician Start: 06-16-2024 Mri brain brain stem w/o w/contrast material Mary Ely APRN.BUCKET PUSHER Work Phone: Start: 03-22-2024 STREP A MOLECULAR (POC) [facility] Provider Start: 11-29-2023 Esophagogastroduodenoscopy transoral diagnostic Era Gagnon PA-C Work Phone: Start: 07-19-2023 INFLUENZA VACCINE, PRSV FREE, AGE 65+ YR, HIGH DOSE, QUADRIVALENT (FLUZONE HIGH-DOSE) Silvano Vance PA-C Work Phone: Start: 04-05-2023 Radex spine cervical 4 or 5 views Marvel Rizzo MD Work Phone: Start: 08-07-2022 Ct head/brain w/o contrast material Alonso Rodriguez MD Work Phone: Start: 03-26-2022 Mri brain brain stem w/o w/contrast material Mary Ely APRN.BUCKET PUSHER Work Phone: Start: 12-24-2021 Adult depression screening assessment Ranjan Connolly Jr., MD Work Phone: Start: 06-17-2019 Colonoscopy Ranjan Connolly Jr., MD Work Phone: Plan of Treatment Date Care Activity Detail Author Start: 07-14-2034 Urine microalbumin profile DTaP,Tdap,Td Vaccine (2 - Td or Tdap) [facility] Start: 06-17-2029 Colonoscopy COLONOSCOPY [facility] Start: 06-17-2029 COLORECTAL CANCER SCREENING COLORECTAL CANCER SCREENING [facility] Start: 07-15-2027 Diabetes Screening Diabetes Screening [facility] Start: 07-14-2027 Diabetes Screening Diabetes Screening [facility] Start: 11-11-2026 Diabetes Screening Diabetes Screening [facility] Start: 05-15-2026 DIABETES SCREEN DIABETES SCREEN [facility] Start: 05-15-2026 Diabetes Screening Diabetes Screening [facility] Start: 03-21-2026 DIABETES SCREEN DIABETES SCREEN [facility] Start: 03-08-2026 LIPID SCREEN LIPID SCREEN [facility] Start: 08-10-2025 BP Controlled (<130/80) BP Controlled (<130/80) [facility] Start: 07-21-2025 Annual PCP Team Chronic Disease Visit Annual PCP Team Chronic Disease Visit [facility] Start: 07-21-2025 BP Controlled (<130/80) BP Controlled (<130/80) [facility] Start: 06-17-2025 End: 06-17-2025 Patient encounter procedure 06/17/2025 10:00 AM EDT Appointment Radiology [address] [place], [place] [address] Meningioma (HCC) [D32.9] Radiology Comment on above: Meningioma (HCC) [D32.9] Start: 06-11-2025 BP Controlled (<130/80) BP Controlled (<130/80) [facility] Start: 06-05-2025 Annual PCP Team Chronic Disease Visit Annual PCP Team Chronic Disease Visit [facility] Start: 06-05-2025 BP Controlled (<130/80) BP Controlled (<130/80) [facility] Start: 05-04-2025 DIABETES SCREEN DIABETES SCREEN [facility] Start: 03-23-2025 BP Controlled (<130/80) BP Controlled (<130/80) [facility] Start: 03-22-2025 BP Controlled (<130/80) BP Controlled (<130/80) [facility] Start: 03-11-2025 BP Controlled (<130/80) BP Controlled (<130/80) [facility] Start: 01-12-2025 Annual PCP Team Chronic Disease Visit Annual PCP Team Chronic Disease Visit [facility] Start: 01-12-2025 BP Controlled (<130/80) BP Controlled (<130/80) [facility] Start: 12-23-2024 BP Controlled (<130/80) BP Controlled (<130/80) [facility] Start: 12-19-2024 DIABETES SCREEN DIABETES SCREEN [facility] Start: 12-07-2024 End: 12-07-2024 Patient encounter procedure 12/07/2024 11:40 AM EST Office Visit Internal [facility] [place] [address] [place] [address] Marvel Rizzo MD [address] [place] [address] 6 month follow up [facility] Medicine [place] Comment on above: 6 month follow up Start: 12-07-2024 End: 12-07-2024 ambulatory 12/07/2024 8:45 AM EST Results Only [place] [facility] Draw Station [address] [place] [address] [place] [facility] Start: 12-06-2024 End: 03-07-2025 CBC W Auto Differential panel - Blood COMPLETE BLOOD COUNT AND DIFFERENTIAL Lab Routine Panic attacks Major depressive disorder, single episode, 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) Expected: 12/06/2024, Expires: 03/07/2025 [facility] Comment on above: Expected: 12/06/2024, Expires: Start: 12-06-2024 End: 03-07-2025 Cobalamin (Vitamin B12) [Mass/volume] in Serum or Plasma VITAMIN B12 Lab Routine Vitamin B12 deficiency Expected: 12/06/2024, Expires: 03/07/2025 [facility] Comment on above: Expected: 12/06/2024, Expires: Start: 12-06-2024 End: 03-07-2025 Comprehensive metabolic 2000 panel - Serum or Plasma COMPREHENSIVE METABOLIC PANEL Lab Routine Hyperlipidemia, mixed Expected: 12/06/2024, Expires: 03/07/2025 [facility] Comment on above: Expected: 12/06/2024, Expires: Start: 12-06-2024 End: 03-07-2025 Lipid 1996 panel - Serum or Plasma LIPID PANEL BASIC Lab Routine Hyperlipidemia, mixed Expected: 12/06/2024, Expires: 03/07/2025 [facility] Work Phone: Comment on above: Expected: 12/06/2024, Expires: Start: 12-06-2024 End: 03-07-2025 Thyrotropin [Units/volume] in Serum or Plasma THYROID STIMULATING HORMONE Lab Routine Weight gain Fatigue, unspecified type Expected: 12/06/2024, Expires: 03/07/2025 [facility] Comment on above: Expected: 12/06/2024, Expires: Start: 12-02-2024 Annual PCP Team Chronic Disease Visit Annual PCP Team Chronic Disease Visit [facility] Start: 11-19-2024 BP Controlled (<130/80) BP Controlled (<130/80) [facility] Start: 11-05-2024 End: 11-05-2024 Patient encounter procedure 11/05/2024 10:00 AM EST Office Visit Neurology [address] [phone] Sayra Mabry MD [address] [address] Return in about 3 months (around 10/31/2024). Neurology Comment on above: Return in about 3 months (around 10/31/19). Start: 10-29-2024 Annual PCP Team Chronic Disease Visit Annual PCP Team Chronic Disease Visit [facility] Start: 10-08-2024 End: 10-08-2024 Patient encounter procedure 10/08/2024 11:00 AM EST Procedure [facility] [address] [place] [place] [address] Grace Hunt APRN.BUCKET PUSHER [address] [place] [address] AUTH GOOD (MEDICARE A&B) CAD - TPI (3 OF 3 FOR YEAR) [facility] Comment on above: AUTH GOOD (MEDICARE A&B) CAD - TPI (3 OF 3 FOR YEAR) Start: 09-10-2024 End: 09-10-2024 Patient encounter procedure 09/10/2024 10:45 AM EST Office Visit [facility] [address] [address] Grace Hunt APRN.BUCKET PUSHER [address] [place] [address] Follow up visit [facility] Comment on above: Follow up visit Start: 09-01-2024 End: 09-01-2024 Patient encounter procedure 09/01/2024 11:00 AM EST Office Visit Family Medicine [place] [address] [place] [address] Henny Resendiz PA-C [address] [place] [address] 6 wk follow up; labs [facility] [place] Comment on above: 6 wk follow up; labs Start: 08-31-2024 End: 08-31-2024 ambulatory 08/31/2024 2:30 PM EST OT/PT/Speech Visit [facility] [address] [place] [address] Shara Tapia, PT [address] [place] [address] Parkinson's disease with dyskinesia, unspecified whether manifestations fluctuate (HCC) [G20.B1] [facility] Comment on above: Parkinson's disease with dyskinesia, uns pecified whether manifestations fluctuate (HCC) [G20.B1] Start: 08-27-2024 End: 08-27-2024 Patient encounter procedure 08/27/2024 10:30 AM EST Procedure [facility] [address] [place] [address] Grace Hunt APRN.BUCKET PUSHER [address] [place] [address] AUTH GOOD (MEDICARE A&B) CAD - TPI (2 OF 3 FOR YEAR) [facility] Comment on above: AUTH GOOD (MEDICARE A&B) CAD - TPI (2 OF 3 FOR YEAR) Start: 08-25-2024 End: 08-25-2024 ambulatory 08/25/2024 11:45 AM EST OT/PT/Speech Visit [facility] [address] [place] [address] Shara Tapia, PT [address] [place], [place] [phone] Parkinson's disease with dyskinesia, unspecified whether manifestations fluctuate (HCC) [G20.B1] [facility] Comment on above: Parkinson's disease with dyskinesia, uns pecified whether manifestations fluctuate (HCC) [G20.B1] Start: 08-24-2024 End: 08-24-2024 ambulatory 08/24/2024 9:30 AM EST OT/PT/Speech Visit [facility] [address] [place] [address] Shara Tapia, PT [address] [place], [place] [id number] Parkinson's disease with dyskinesia, unspecified whether manifestations fluctuate (HCC) [G20.B1] [facility] Comment on above: Parkinson's disease with dyskinesia, uns pecified whether manifestations fluctuate (HCC) [G20.B1] Start: 08-21-2024 End: 11-20-2024 Basic metabolic 2000 panel - Serum or Plasma BASIC METABOLIC PANEL Lab Routine Hyponatremia Expected: 08/21/2024, Expires: 11/20/2024 [facility] Work Phone: Comment on above: Expected: 08/21/2024, Expires: Start: 08-20-2024 End: 08-20-2024 Patient encounter procedure 08/20/2024 10:45 AM EDT Procedure [facility] [address] [place] [address] Grace Hunt APRN.BUCKET PUSHER [address] [place] [address] TPIs [facility] Comment on above: TPIs Start: 08-18-2024 End: 08-18-2024 ambulatory 08/18/2024 5:00 PM EDT OT/PT/Speech Visit [facility] [address] [facility] [place] [address] Shara Tapia, PT [address] [place], [place] [phone] Parkinson's disease with dyskinesia, unspecified whether manifestations fluctuate (HCC) [G20.B1] [facility] Comment on above: Parkinson's disease with dyskinesia, uns pecified whether manifestations fluctuate (HCC) [G20.B1] Start: 08-13-2024 End: 08-13-2024 ambulatory 08/13/2024 8:15 AM EDT Results Only [facility] Draw Station [address] [facility] [place] [address] [facility] Start: 08-12-2024 Annual PCP Team Chronic Disease Visit Annual PCP Team Chronic Disease Visit [facility] Start: 08-10-2024 End: 08-10-2024 ambulatory 08/10/2024 11:45 AM EDT OT/PT/Speech Visit [facility] [address] [facility] [place] [place] [address] Shara Tapia, PT [address] [place], [place] [phone] Parkinson's disease with dyskinesia, unspecified whether manifestations fluctuate (HCC) [G20.B1] [facility] Comment on above: Parkinson's disease with dyskinesia, uns pecified whether manifestations fluctuate (HCC) [G20.B1] Start: 07-31-2024 End: 07-31-2024 Patient encounter procedure 07/31/2024 9:30 AM EDT Office Visit Neurology [address] [facility] [address] [place] [phone] Sayra Mabry MD [address] [facility] [address] [place] [address] Hospital follow up (R/S from 07/14) Neurology Comment on above: Hospital follow up (R/S from 07/14) Start: 07-21-2024 End: 07-21-2024 Patient encounter procedure 07/21/2024 4:00 PM EDT Office Visit [facility] [place] [address] [place] [address] Marvel Rizzo MD [address] [place] [address] hosp f/u [facility] [place] Comment on above: hosp f/u Start: 07-19-2024 Annual PCP Team Chronic Disease Visit Annual PCP Team Chronic Disease Visit [facility] Start: 07-14-2024 End: 07-14-2024 Patient encounter procedure 07/14/2024 2:00 PM EDT Office Visit Neurology [address] [phone] Sayra Mabry MD [address] [address] Return in about 3 months (around 06/25/2024). 60 minutes per [facility] Neurology Comment on above: Return in about 3 months (around ). 60 minutes per [facility] Start: 07-08-2024 BP Controlled (<130/80) BP Controlled (<130/80) [facility] Start: 06-30-2024 End: 06-30-2024 Follow-up encounter 06/30/2024 4:15 PM EDT [facility] [address] [facility] [address] [place] [address] Grace Hunt APRN.BUCKET PUSHER [address] [place] [address] 2 month follow up [facility] Comment on above: 2 month follow up Start: 06-25-2024 End: 06-25-2024 Follow-up encounter 06/25/2024 12:30 PM EDT Distance [facility] [place] [address] [facility] [phone] Era Gagnon PA-C [address] [facility] [place], [place] [phone] follow up, GERD, schatzki's ring, other constipation [facility] [place] Comment on above: follow up, GERD, schatzki's ring, other constipation Start: 06-21-2024 Covid-19 Vaccine ( season) Covid-19 Vaccine () [facility] Start: 06-21-2024 Covid-19 Vaccine () Covid-19 Vaccine () [facility] Start: 06-21-2024 Influenza vaccination Influenza Vaccine (#1) [facility] Start: 06-18-2024 BP CONTROLLED (<130/80) BP CONTROLLED (<130/80) [facility] Start: 06-16-2024 End: 06-16-2024 Patient encounter procedure 06/16/2024 10:00 AM EDT Appointment Radiology [address] [place] [address] Meningioma (HCC) [D32.9] Radiology Comment on above: Meningioma (HCC) [D32.9] Start: 06-11-2024 End: 06-11-2024 Patient encounter procedure 06/11/2024 1:30 PM EDT Office Visit [facility] [address] [place] [address] Jak Diaz MD [address] [facility] [address] [place] [address] 3 month follow up [facility] Comment on above: 3 month follow up Start: 06-05-2024 End: 06-05-2024 Patient encounter procedure 06/05/2024 3:20 PM EDT Office Visit [facility] [place] [address] [place], [place] [phone] Marvel Rizzo MD [address] [place] [address] 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 See phone encounter. [facility] [place] Comment on above: 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 See phone encounter. Start: 06-05-2024 End: 09-04-2024 25-hydroxyvitamin D3 [Mass/volume] in Serum or Plasma VITAMIN D 25 HYDROXY Lab Routine Vitamin D deficiency Expected: 06/05/2024, Expires: 09/04/2024 [facility] Comment on above: Expected: 06/05/2024, Expires: Start: 06-05-2024 ANNUAL PCP TEAM CHRONIC DISEASE VISIT ANNUAL PCP TEAM CHRONIC DISEASE VISIT [facility] Start: 06-05-2024 BP CONTROLLED (<130/80) BP CONTROLLED (<130/80) [facility] Start: 05-21-2024 BP CONTROLLED (<130/80) BP CONTROLLED (<130/80) [facility] Start: 05-15-2024 ANNUAL PCP TEAM CHRONIC DISEASE VISIT ANNUAL PCP TEAM CHRONIC DISEASE VISIT [facility] Start: 05-15-2024 BP CONTROLLED (<130/80) BP CONTROLLED (<130/80) [facility] Start: 04-30-2024 End: 04-30-2024 Follow-up encounter 04/30/2024 10:15 AM EDT [facility] [address] [place], [place] [phone] Grace Hunt APRN.BUCKET PUSHER [address] [place] [address] 6 week follow up to discuss TPI [facility] Comment on above: 6 week follow up to discuss TPI Start: 04-05-2024 ANNUAL PCP TEAM CHRONIC DISEASE VISIT ANNUAL PCP TEAM CHRONIC DISEASE VISIT [facility] Start: 04-05-2024 BP CONTROLLED (<130/80) BP CONTROLLED (<130/80) [facility] Start: 03-27-2024 End: 03-27-2024 Patient encounter procedure 03/27/2024 2:20 PM EDT Office Visit Neurology [address] [place] [address] Ranjan Connolly Jr., MD [address] [facility] [address] [place] [phone] 3 month follow up parkinsons Neurology Comment on above: 3 month follow up parkinsons Start: 03-25-2024 BP CONTROLLED (<130/80) BP CONTROLLED (<130/80) [facility] Start: 03-25-2024 End: 03-25-2024 Patient encounter procedure 03/25/2024 2:00 PM EDT Office Visit Neurology [address] [facility] [address] [place] [address] Sayra Mabry MD [address] [facility] [address] [place] [address] PCP wants pt to see this provider Neurology Comment on above: PCP wants pt to see this provider Start: 03-23-2024 End: 03-23-2024 Patient encounter procedure 03/23/2024 10:55 AM EDT Office Visit Gastroenterology [place] [address] [place] [phone] Era Gagnon PA-C [address] [place] [address] follow up for dysphagia [facility]ology [facility] Comment on above: follow up for dysphagia Start: 03-19-2024 End: 03-19-2024 Patient encounter procedure [facility] Comment on above: TPIs cervical paraspinals, upper traps, bilaterally [(MEDICARE A&B) 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] TPIs cervical paraspinals, upper traps, bilaterally Start: 12-31-2023 End: 03-31-2024 Lipid 1996 panel - Serum or Plasma LIPID PANEL BASIC Lab Routine Mixed hyperlipidemia Expected: 12/31/2023, Expires: 03/31/2024 [facility] Work Phone: Comment on above: Expected: 12/31/2023, Expires: Start: 12-29-2023 ANNUAL PCP TEAM CHRONIC DISEASE VISIT ANNUAL PCP TEAM CHRONIC DISEASE VISIT [facility] Start: 12-29-2023 BP CONTROLLED (<130/80) BP CONTROLLED (<130/80) [facility] Start: 11-04-2023 End: 02-03-2024 25-hydroxyvitamin D3 [Mass/volume] in Serum or Plasma VITAMIN D 25 HYDROXY Lab Routine Vitamin D deficiency Expected: 11/04/2023 (Approximate), Expires: 02/03/2024 [facility] Work Phone: Comment on above: Expected: 11/04/2023 (Approximate), Expi res: 02/03/2024 Start: 11-04-2023 End: 02-03-2024 Basic metabolic 2000 panel - Serum or Plasma BASIC METABOLIC PNL Lab Routine Hypotension, unspecified hypotension type Expected: 11/04/2023 (Approximate), Expires: 02/03/2024 [facility] Work Phone: Comment on above: Expected: 11/04/2023 (Approximate), Expi res: 02/03/2024 Start: 11-04-2023 End: 02-03-2024 CBC panel - Blood by Automated count CBC Lab Routine Hypotension, unspecified hypotension type Expected: 11/04/2023 (Approximate), Expires: 02/03/2024 [facility] Work Phone: Comment on above: Expected: 11/04/2023 (Approximate), Expi res: 02/03/2024 Start: 11-04-2023 End: 02-03-2024 Lipid 1996 panel - Serum or Plasma LIPID PANEL BASIC Lab Routine Mixed hyperlipidemia Expected: 11/04/2023 (Approximate), Expires: 02/03/2024 [facility] Work Phone: Comment on above: Expected: 11/04/2023 (Approximate), Expi res: 02/03/2024 Start: 11-04-2023 End: 02-03-2024 Thyrotropin [Units/volume] in Serum or Plasma TSH BLD Lab Routine Hypothyroidism, unspecified type Expected: 11/04/2023 (Approximate), Expires: 02/03/2024 [facility] Work Phone: Comment on above: Expected: 11/04/2023 (Approximate), Expi res: 02/03/2024 Start: 11-04-2023 End: 02-03-2024 Thyroxine (T4) free [Mass/volume] in Serum or Plasma T4 FREE/FREE THYROX Lab Routine Hypothyroidism, unspecified type Expected: 11/04/2023 (Approximate), Expires: 02/03/2024 [facility] Work Phone: Comment on above: Expected: 11/04/2023 (Approximate), Expi res: 02/03/2024 Start: 10-21-2023 Advance Directive Discussion Advance Directive Discussion [facility] Start: 10-21-2023 Depression Assessment Depression Assessment [facility] Start: 07-31-2023 ANNUAL PCP TEAM CHRONIC DISEASE VISIT ANNUAL PCP TEAM CHRONIC DISEASE VISIT [facility] Start: 07-31-2023 BP CONTROLLED (<130/80) BP CONTROLLED (<130/80) [facility] Start: 07-26-2023 BP CONTROLLED (<130/80) BP CONTROLLED (<130/80) [facility] Start: 06-21-2023 Covid-19 Vaccine () Covid-19 Vaccine () [facility] Start: 06-21-2023 Influenza vaccination [facility] Start: 06-11-2023 BP CONTROLLED (<130/80) BP CONTROLLED (<130/80) [facility] Start: 05-21-2023 BP CONTROLLED (<130/80) BP CONTROLLED (<130/80) [facility] Start: 05-01-2023 ANNUAL PCP TEAM CHRONIC DISEASE VISIT ANNUAL PCP TEAM CHRONIC DISEASE VISIT [facility] Start: 05-01-2023 BP CONTROLLED (<130/80) BP CONTROLLED (<130/80) [facility] Start: 04-10-2023 BP CONTROLLED (<130/80) BP CONTROLLED (<130/80) [facility] Start: 12-28-2022 ANNUAL PCP TEAM CHRONIC DISEASE VISIT ANNUAL PCP TEAM CHRONIC DISEASE VISIT [facility] Start: 12-24-2022 Adult depression screening assessment DEPRESSION SCREENING [facility] Start: 11-27-2022 COVID-19 VACCINE (6 - Moderna series) COVID-19 VACCINE (6 - Moderna series) [facility] Start: 10-21-2022 ADVANCE DIRECTIVE DISCUSSION ADVANCE DIRECTIVE DISCUSSION [facility] Start: 10-21-2022 DEPRESSION ASSESSMENT DEPRESSION ASSESSMENT [facility] Start: 06-21-2022 Influenza vaccination INFLUENZA (#1) [facility] Start: 08-08-2022 COVID-19 VACCINE (5 - Booster for Moderna series) COVID-19 VACCINE (5 - Booster for Moderna series) [facility] Start: 05-01-2022 End: 07-01-2022 25-hydroxyvitamin D3 [Mass/volume] in Serum or Plasma VITAMIN D 25 HYDROXY Lab Routine Vitamin D deficiency Expected: 05/01/2022, Expires: 07/01/2022 [facility] Work Phone: Comment on above: Expected: 05/01/2022, Expires: 2 Start: 05-01-2022 End: 07-01-2022 CBC W Auto Differential panel - Blood CBC + DIFF Lab Routine Numbness and tingling Expected: 05/01/2022, Expires: 07/01/2022 [facility] Work Phone: Comment on above: Expected: 05/01/2022, Expires: 2 Start: 05-01-2022 End: 07-01-2022 Cobalamin (Vitamin B12) [Mass/volume] in Serum or Plasma VITAMIN B12 BLOOD Lab Routine Numbness and tingling Expected: 05/01/2022, Expires: 07/01/2022 [facility] Work Phone: Comment on above: Expected: 05/01/2022, Expires: 2 Start: 05-01-2022 End: 07-01-2022 Comprehensive metabolic 2000 panel - Serum or Plasma COMP METABOLIC PANEL Lab Routine Numbness and tingling Expected: 05/01/2022, Expires: 07/01/2022 [facility] Work Phone: Comment on above: Expected: 05/01/2022, Expires: 2 Start: 05-01-2022 End: 07-01-2022 Thyrotropin [Units/volume] in Serum or Plasma TSH BLD Lab Routine Hypothyroidism, unspecified type Expected: 05/01/2022, Expires: 07/01/2022 [facility] Work Phone: Comment on above: Expected: 05/01/2022, Expires: 2 Start: 12-30-2021 COVID-19 VACCINE (4 - Booster for Moderna series) COVID-19 VACCINE (4 - Booster for Moderna series) [facility] Start: 10-21-2021 ADVANCE DIRECTIVE DISCUSSION ADVANCE DIRECTIVE DISCUSSION [facility] Start: 10-21-2021 DEPRESSION ASSESSMENT DEPRESSION ASSESSMENT [facility] Start: 2021 RSV Vaccine (1 - 1-dose 75+ series) RSV Vaccine (1 - 1-dose 75+ series) [facility] Start: 08-11-2012 SHINGRIX VACCINE (2 of 3) SHINGRIX VACCINE (2 of 3) [facility] Start: 2006 RSV Vaccine (1 - 1-dose 60+ series) RSV Vaccine (1 - 1-dose 60+ series) [facility] Start: 05-22-2004 Urine microalbumin profile [facility] Start: 1991 COLOGUARD (FIT-DNA) COLOGUARD (FIT-DNA) [facility] Start: [address] COLONOGRAPHY [facility] Start: 1991 FECAL OCCULT BLOOD FECAL OCCULT BLOOD [facility] Start: 1991 SIGMOIDOSCOPY SIGMOIDOSCOPY [facility] Start: 1964 BP CONTROLLED (<130/80) BP CONTROLLED (<130/80) [facility] Start: 1964 Depression Screening Depression Screening [facility] Dstr nrolytc agnt parverteb fct addl crvcl/thora DSTR NROLYTC AGNT PARVERTEB FCT ADDL CRVCL/THORA Procedures Routine Cervical spondylosis without myelopathy Ordered: 10/02/2023 [facility] Work Phone: Comment on above: Ordered: 10/02/2023 Dstr nrolytc agnt parverteb fct sngl crvcl/thora DSTR NROLYTC AGNT PARVERTEB FCT SNGL CRVCL/THORA Procedures Routine Cervical spondylosis without myelopathy Ordered: 10/02/2023 [facility] Work Phone: Comment on above: Ordered: 10/02/2023 Injection single/equipment maintenance tech trigger point 3/> muscles TRIGGER POINT INJECTION MULTI 3+ MUSCLE GRP Procedures Routine Myofascial pain Ordered: 03/19/2024 [facility] Work Phone: Comment on above: Ordered: 03/19/2024 Injection single/equipment maintenance tech trigger point 3/> muscles TRIGGER POINT INJECTION MULTI 3+ MUSCLE GRP Procedures Routine Myofascial pain Ordered: 07/02/2024 [facility] Work Phone: Comment on above: Ordered: 07/02/2024 End: 06-04-2024 Mri brain brain stem w/o w/contrast material MRI BRAIN WO/W IVCON Radiology Routine Meningioma (HCC) 1 Occurrences starting 05/06/2023 until 06/04/2024 [facility] Work Phone: Comment on above: 1 Occurrences starting 05/06/2023 until 06/04/2024 Njx dx/ther agt pvrt facet jt crv/thrc 1 level NJX DX/THER AGT PVRT FACET JT CRV/THRC 1 LEVEL Procedures Routine Cervical spondylosis without myelopathy Ordered: 08/07/2023 [facility] Work Phone: Comment on above: Ordered: 08/07/2023 Njx dx/ther agt pvrt facet jt crv/thrc 1 level NJX DX/THER AGT PVRT FACET JT CRV/THRC 1 LEVEL Procedures Routine Cervical spondylosis without myelopathy Ordered: 08/26/2023 [facility] Work Phone: Comment on above: Ordered: 08/26/2023 Njx dx/ther agt pvrt facet jt crv/thrc 2nd level NJX DX/THER AGT PVRT FACET JT CRV/THRC 2ND LEVEL Procedures Routine Cervical spondylosis without myelopathy Ordered: 08/07/2023 [facility] Work Phone: Comment on above: Ordered: 08/07/2023 Njx dx/ther agt pvrt facet jt crv/thrc 2nd level NJX DX/THER AGT PVRT FACET JT CRV/THRC 2ND LEVEL Procedures Routine Cervical spondylosis without myelopathy Ordered: 08/26/2023 [facility] Work Phone: Comment on above: Ordered: 08/26/2023 PT PLAN OF CARE CERTIFICATION PT PLAN OF CARE CERTIFICATION Procedures Routine Neck pain Neck muscle weakness Ordered: 04/09/2023 [facility] Work Phone: Comment on above: Ordered: 04/09/2023 PT PLAN OF CARE CERTIFICATION PT PLAN OF CARE CERTIFICATION Procedures Routine Neck pain Neck muscle weakness Ordered: 05/02/2023 [facility] Work Phone: Comment on above: Ordered: 05/02/2023 End: 05-04-2024 Radex spine cervical 4 or 5 views XR CERV OTHER 4V AP/LAT/OBL Radiology Routine Neck pain 1 Occurrences starting 04/05/2023 until 05/04/2024 [facility] Work Phone: Comment on above: 1 Occurrences starting 04/05/2023 until 05/04/2024 Radex spine cervical 4 or 5 views XR CERV OTHER 4V AP/LAT/OBL Radiology Routine Neck pain 04/05/2023 2:59 PM EDT [facility] Work Phone: End: 05-04-2024 Radex spine thoracic 2 views XR THORACIC LIMITED 2V AP/LAT Radiology Routine Kyphosis of thoracic region, unspecified kyphosis type 1 Occurrences starting 04/05/2023 until 05/04/2024 [facility] Work Phone: Comment on above: 1 Occurrences starting 04/05/2023 until 05/04/2024 Radex spine thoracic 2 views XR THORACIC LIMITED 2V AP/LAT Radiology Routine Kyphosis of thoracic region, unspecified kyphosis type 04/05/2023 2:59 PM EDT [facility] Work Phone: STREP A MOLECULAR (POC) STREP A MOLECULAR (POC) Microbiology Routine Sore throat Ordered: 03/22/2024 [facility] Work Phone: Comment on above: Ordered: 03/22/2024 SURGICAL PATHOLOGY SURGICAL PATH OLOGY Lab Routine Dysphagia, unspecified type Abnormal findings on diagnostic imaging of digestive system Release Upon Ordering for 1 Occurrences starting 11/29/2023 [facility] Work Phone: Comment on above: Release Upon Ordering for 1 Occurrences starting 11/29/2023 End: 08-31-2024 XR MODIFIED BARIUM SWALLOW W SPEECH THERAPY XR MODIFIED BARIUM SWALLOW W SPEECH THERAPY Radiology Routine Dysphagia, unspecified type 1 Occurrences starting 08/02/2023 until 08/31/2024 [facility] Work Phone: Comment on above: 1 Occurrences starting 08/02/2023 until 08/31/2024 XR MODIFIED BARIUM SWALLOW W SPEECH THERAPY XR MODIFIED BARIUM SWALLOW W SPEECH THERAPY Radiology Routine Dysphagia, unspecified type 09/17/2023 10:10 AM EST [facility] Work Phone: [facility] Immunizations Immunization Date Immunization Notes Care Provider [facility] 07-14-2024 tetanus toxoid, redu stephany diphtheria toxoid, and acellular pertussis vaccine, adsorbed Sayra Mabry MD Work Phone: [facility] 07-19-2023 influenza (HD-IIV4) vaccine, age 65+ yr, high dose, quadrivalent, PF (FLUZONE HIGH-DOSE) Silvano Vance PA-C Work Phone: [facility] Work Phone: 07-19-2023 influenza virus vacc ine, unspecified formulation Grace Hunt APRN.CNP Work Phone: [facility] 07-31-2022 influenza, high-dose , quadrivalent vaccine (FLUZONE HIGH DOSE QUADRIVALENT) Eunice Camarena Therapist [facility] Work Phone: 07-31-2022 influenza virus vacc ine, unspecified formulation Jak Diaz MD Work Phone: [facility] 07-27-2022 COVID-19 booster vaccine, age 12+ yr, bivalent (PFIZER-BIONTECH) Eunice Camarena Therapist [facility] Work Phone: 04-02-2022 COVID-19 vaccine, booster dose (MODERNA) Mary Ely APRN.[facility] Work Phone: [facility] Work Phone: 06-30-2021 influenza, high-dose , quadrivalent vaccine (FLUZONE HIGH DOSE QUADRIVALENT) Ranjan Connolly Jr., MD Work Phone: [facility] Work Phone: 01-13-2021 COVID-19 vaccine, fu ll dose (MODERNA) Ranjan Connolly Jr., MD Work Phone: [facility] Work Phone: 12-16-2020 COVID-19 vaccine, fu ll dose (MODERNA) Ranjan Connolly Jr., MD Work Phone: [facility] 07-04-2020 influenza, high-dose , quadrivalent vaccine (FLUZONE HIGH DOSE QUADRIVALENT) Ranjan Connolly Jr., MD Work Phone: [facility] 08-03-2019 influenza, high dose seasonal, preservative-free Ranjan Connolly Jr., MD Work Phone: [facility] 08-03-2019 Seasonal trivalent influenza vaccine, adjuvanted, preservative free Ranjan Connolly Jr., MD Work Phone: [facility] 07-28-2018 influenza, high dose seasonal, preservative-free Ranjan Connolly Jr., MD Work Phone: [facility] 07-28-2018 Seasonal trivalent influenza vaccine, adjuvanted, preservative free Ranjan Connolly Jr., MD Work Phone: [facility] 07-29-2017 influenza, high dose seasonal, preservative-free Ranjan Connolly Jr., MD Work Phone: [facility] Work Phone: 07-29-2017 Seasonal trivalent influenza vaccine, adjuvanted, preservative free Ranjan Connolly Jr., MD Work Phone: [facility] 07-30-2016 influenza, high dose seasonal, preservative-free Ranjan Connolly Jr., MD Work Phone: [facility] 10-24-2015 pneumococcal conjuga te vaccine, 13 valent Ranjan Connolly Jr., MD Work Phone: [facility] 07-21-2015 influenza, high dose seasonal, preservative-free Ranjan Connolly Jr., MD Work Phone: [facility] 07-30-2014 influenza, high dose seasonal, preservative-free Ranjan Connolly Jr., MD Work Phone: [facility] 07-29-2012 influenza virus vacc ine, unspecified formulation Ranjan Connolly Jr., MD Work Phone: [facility] 06-16-2012 zoster vaccine, live Ranjan Connolly Jr., MD Work Phone: [facility] 01-01-2012 pneumococcal polysaccharide vaccine, 23 valent Ranjan Connolly Jr., MD Work Phone: [facility] 07-27-2010 influenza virus vacc ine, unspecified formulation Ranjan Connolly Jr., MD Work Phone: [facility] 08-16-2009 influenza virus vacc ine, unspecified formulation Ranjan Connolly Jr., MD Work Phone: [facility] Work Phone: 05-21-2004 tetanus and diphther ia toxoids, adsorbed, preservative free, for adult use (2 Lf of tetanus toxoid and 2 Lf of diphtheria toxoid) Ranjan Connolly Jr., MD Work Phone: [facility] Work Phone: Payers Date Payer Category Payer Unknown [id number] 2020 Private Health Insurance [facility] AARP SUPPLEMENT [id number] 2020-Present [phone] [address] [place] [address] Indemnity [id number] 2020 Private Health Insurance [facility] AARP SUPPLEMENT [id number] 2020-Present [phone] [address] [place] [address] Indemnity [id number] 2020 Unknown [id number] 2011 Medicare MEDICARE MEDICAR E A AND B [id number] 2011-Present [phone] [place] [address] Medicare [id number] 2011 Medicare MEDICARE MEDICAR E A AND B [id number] 2011-Present [phone] [place] [address] Medicare [id number] 2011 Medicare [id number] Social History Date Type Detail Facility Start: 06-11-2022 Tobacco smoking stat us [facility]IS Never smoked tobacco [facility] Start: 01-04-2022 End: 07-31-2024 Alcohol intake Current non-drinker of alcohol (finding) [facility] Start: 12-25-2021 End: 12-22-2022 History SDOH Alcohol Frequency 2 [facility] Start: 12-25-2021 End: 12-22-2022 History SDOH Alcohol Std Drinks 1 [facility] Start: 12-25-2021 End: 12-22-2022 History SDOH Social Connections Phone 5 [facility] Start: 12-25-2021 End: 12-22-2022 History SDOH Social Connections Get Together 3 [facility] Start: 12-25-2021 History SDOH Social Connections Restorationist 98 [facility] Start: 12-25-2021 End: 12-22-2022 History SDOH Financial 4 [facility] Start: 04-03-2020 Education 21 [facility] Start: 11-28-2020 End: 06-11-2022 Tobacco Comment Father smoked in childhood home. 2 spouses were smokers. [facility] Start: 1945 Sex Assigned At Female [facility] Start: 03-31-2022 End: 08-07-2022 Exposure to SARS-CoV-2 (event) Not sure [facility] Work Phone: Start: 06-11-2022 Tobacco use and exposure Smoke less tobacco non-user [facility] Work Phone: Start: 12-22-2022 End: 03-25-2023 History of Social function [facility] Start: 12-22-2022 End: 03-25-2023 Social connection and isolation panel [facility] Do you belong to any clubs or organizations such as latter day groups, unions, fraternal or athletic groups, or school groups? Yes [facility] Are you now , , , , never or living with a partner? [facility] How often to you hav e a drink containing alcohol? Monthly or less [facility] How many standard dr inks containing alcohol do you have on a typical day? 1 or 2 [facility] How often do you hav e 6 or more drinks on 1 occasion? Never [facility] How hard is it for y ou to pay for the very basics like food, housing, medical care, and heating Not very hard [facility] Adult Depression Screening Assessment 2 [facility] Do you feel stress - tense, restless, nervous, or anxious, or unable to sleep at night because your mind is troubled all the time - these days [OSQ] Only a little [facility] (I/We) worried wheth er (my/our) food would run out before (I/we) got money to buy more. Never true [facility] In the past 12 month s, was there a time when you were not able to pay the mortgage or rent on time? No [facility] Start: 07-30-2024 Gender identity Identifies as female gender (finding) [facility] Clinical Notes 03-12-2022 to 08-10-2024 Shara Tapia, PT - 08/10/2024 11:54 AM Sayra Shah MD - 07/31/2024 4:53 PM EDTPatient Kim Michael RN - 07/23/2024 2:07 PM Marvel Bailey MD - 07/21/2024 4:11 PM EDT Note Date & Type Note Facility 08-10-2024 Note HNO ID: [id number] Author: SHARA TAPIA, HANS Service: ? Author Type: Physical Therapist Type: Progress Notes Filed: 08/10/2024 13:10 Note Text: Episode Visit Count: 1 Therapist That Will Accept/Oversee The Plan Of Care: Shara Tapia PT Start of Care Date: 08/10/24 Onset Date: 04/20/20 (approx date) Plan of Care Certification Date: 08/10/24 Next Certification Due Date: 11/08/24 Patient Identified by Name and Date of : Yes REHABILITATION AND SPORTS THERAPY PHYSICAL THERAPY EVALUATION PLAN OF CARE: Assessment: Lou Oliver presents with diagnosis of PD that interferes with standing, walking, stair negotiation, physical activities, recreational activities, sleeping, driving, carrying . The patient presents with impairments in ADL's, balance, gait, independence in exercise, overall function, posture, and symptom management. PROMIS? (Patient-Reported Outcomes Measurement Information System) scores were reviewed and identified as a rehabilitation concern. Prognosis for therapy is Fair due to: clinical presentation, chronic nature of impairments .The patient will benefit from skilled therapy services to meet the goals established for this plan of care as noted below. Classification Diagnosis Grouping: Parkinson?s Disease Goals for Episode of Care: established 08/10/24 Keller in PD specific home exercise program. Improve 5x sit to stand test to 14 sec to improve endurance and functional mobility Improve score on Timed Up and Go to <10 seconds to decrease risk of falls Pt will improve 10 meter walk test to 6 seconds to decrease fall risk Patient will report no falls or verbalize understanding of recommendations to reduce fall risk. Improve postural awareness. Hierarchy Goals: Decrease difficulty with 1)car transfers 2)handwriting 3)turning when walking 4)standing 5) sit to stand Patient Goals: decrease falls and learn PD specific ex. Time Frame for Goals and Treatment : 10/09/24 Planned Interventions, Frequency, and Duration: Current Frequency: 2x/week Duration: 5 weeks Total Number of Visits Planned: 10 Planned Treatment Interventions: Therapeutic exercise (76800), Neuromuscular re-education (31731), Therapeutic activities (19928), Self-group home management (04587), Gait Training (15277), Patient/Family/Caregiver Education, Body Mechanics Training, Functional training, General Conditioning PLAN FOR NEXT VISIT: Check 4 stage balance. Patient demonstrates good understanding of plan of care and treatment. The above goals and plan of care were discussed and agreed upon by patient/family. SUBJECTIVE: Pt has hx of PD with recent increase in falls and reports of orthostatic hypotension. States this makes her faint and fall. Patient Goals: decrease falls and learn PD specific ex. 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) Recreation / Current Exercise: Delay the Disease 3x a week Parkinson's Class, movement class 1x/wk Hobbies / Interests: walking, gardening, liked to bicycle Home Environment Patient Lives With: Self/Alone Assistance Available: PRN Home Type: Ranch Entry To Home: Stairs, Without Rail Number Of Stairs Into Home: 2 Tub/Shower Type: walk in shower and tub shower Laundry: 1st floor laundry Equipment Owned: Cane, Rollator Intake Information: Prescription present Previous Treatment: (PD exercise classes) Falls Interview: Two or more falls in the last year, Uses an assistive device, Fall with injury in the last year Falls Intervention: Falls Specific Functional Performance Tests Aquatic Screen: No Medications: Independent with managing medication Reported Movement Impairments: Tremors, Dyskinesia, Freezing, Festination, Dystonia (dystonia bilat toe curls R worse than L) Freezing: Off State Reported Speech/Swallowing Difficulties: Hypophonia, Difficulty swallowing, Choking History of Deep Brain Stimulator (DBS) Implant: No Sleep Habits: takes up to 2 hrs/day nap REM Sleep Behavior: vivid dreams, acts out dreams Pain: PROMIS Scales 08/08/2024 10/22/2023 06/02/2023 Higher is Better Phys Func - Score 38 (moderate dysfunction) 38 (moderate dysfunction) Phys Func - Percentile 12 12 Self-Eff Symptom - Score 41 (Average) 35 (Low) Self-Eff Symptom - Percentile 18 7 T-scores: mean of general population = 50. 5 points is clinically meaningfully difference Percentiles provide an indication of how the patient's score ranks in relation to the general population. Higher percentile rankings indicate better function/quality of life. 50th perc (more content not included)... [facility] 08-10-2024 History of Present illness Narrative Images from the original note were not included. Episode Visit Count: 1 Therapist That Will Accept/Oversee The Plan Of Care: Shara Tapia PT Start of Care Date: 08/10/24 Onset Date: 04/20/20 (approx date) Plan of Care Certification Date: 08/10/24 Next Certification Due Date: 11/08/24 Patient Identified by Name and Date of : Yes REHABILITATION AND SPORTS THERAPY PHYSICAL THERAPY EVALUATION PLAN OF CARE: Assessment: Lou Oliver presents with diagnosis of PD that interferes with standing, walking, stair negotiation, physical activities, recreational activities, sleeping, driving, carrying . The patient presents with impairments in ADL's, balance, gait, independence in exercise, overall function, posture, and symptom management. PROMIS (Patient-Reported Outcomes Measurement Information System) scores were reviewed and identified as a rehabilitation concern. Prognosis for therapy is Fair due to: clinical presentation, chronic nature of impairments .The patient will benefit from skilled therapy services to meet the goals established for this plan of care as noted below. Classification Diagnosis Grouping: Parkinson s Disease Goals for Episode of Care: established 08/10/24 Keller in PD specific home exercise program. Improve 5x sit to stand test to 14 sec to improve endurance and functional mobility Improve score on Timed Up and Go to <10 seconds to decrease risk of falls Pt will improve 10 meter walk test to 6 seconds to decrease fall risk Patient will report no falls or verbalize understanding of recommendations to reduce fall risk. Improve postural awareness. Hierarchy Goals: Decrease difficulty with 1)car transfers 2)handwriting 3)turning when walking 4)standing 5) sit to stand Patient Goals: decrease falls and learn PD specific ex. Time Frame for Goals and Treatment : 10/09/24 Planned Interventions, Frequency, and Duration: Current Frequency: 2x/week Duration: 5 weeks Total Number of Visits Planned: 10 Planned Treatment Interventions: Therapeutic exercise (43644), Neuromuscular re-education (27568), Therapeutic activities (15900), Self-group home management (66438), Gait Training (29667), Patient/Family/Caregiver Education, Body Mechanics Training, Functional training, General Conditioning PLAN FOR NEXT VISIT: Check 4 stage balance. Patient demonstrates good understanding of plan of care and treatment. The above goals and plan of care were discussed and agreed upon by patient/family. SUBJECTIVE: Pt has hx of PD with recent increase in falls and reports of orthostatic hypotension. States this makes her faint and fall. Patient Goals: decrease falls and learn PD specific ex. 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) Recreation / Current Exercise: Delay the Disease 3x a week Parkinson's Class, movement class 1x/wk Hobbies / Interests: walking, gardening, liked to bicycle Home Environment Patient Lives With: Self/Alone Assistance Available: PRN Home Type: [place] Entry To Home: Stairs, Without Rail Number Of Stairs Into Home: 2 Tub/Shower Type: walk in shower and tub shower Laundry: 1st floor laundry Equipment Owned: Cane, Rollator Intake Information: Prescription present Previous Treatment: (PD exercise classes) Falls Interview: Two or more falls in the last year, Uses an assistive device, Fall with injury in the last year Falls Intervention: Falls Specific Functional Performance Tests Aquatic Screen: No Medications: Independent with managing medication Reported Movement Impairments: Tremors, Dyskinesia, Freezing, Festination, Dystonia (dystonia bilat toe curls R worse than L) Freezing: Off State Reported Speech/Swallowing Difficulties: Hypophonia, Difficulty swallowing, Choking History of Deep Brain Stimulator (DBS) Implant: No Sleep Habits: takes up to 2 hrs/day nap REM Sleep Behavior: vivid dreams, acts out dreams Pain: PROMIS Scales 08/08/2024 10/22/2023 06/02/2023 Higher is Better Phys Func - Score 38 (moderate dysfunction) 38 (moderate dysfunction) Phys Func - Percentile 12 12 Self-Eff Symptom - Score 41 (Average) 35 (Low) Self-Eff Symptom - Percentile 18 7 T-scores: mean of general population = 50. 5 points is clinically meaningfully difference Percentiles provide an indication of how the patient's score ranks in relation to the general population. Higher percentile rankings indicate better function/quality of life. 50th percentile is the average of the general population and indicates half of respondents had a worse score. OBJECTIVE MEASURES WITH LEVEL OF FUNCTION: Vision Vision Deficits: (has hallucinations) Posture / Alignment Posture: Forward head, Increased thoracic kyphosis, Rounded shoulders Gait Gait: Supervision Gait Distance (feet): 100 Gait Device: Cane Gait Observation: forward head posture with narrow OCTAVIA. Functional Performance Test Results Assistive Device: Cane 10 Meter Walk Test Fast Gait Trial 1 (seconds): 6.83 10 Meter Walk Test Fast Gait Average (m/sec): 0.88 5 Times Sit to Stand Test : 17.79 sec Timed Up and Go (sec): 10.89 sec Vitals BP: 91/52 Pulse: 75 Education: Education Learning Preferences: Demonstration, Explanation, Performance, Printed Materials Barriers: None Learning/educational needs: Lifestyle changes, Health promotion, Safety, Home exercise program, Plan of Care, Posture, Gait Training, Body Mechanics, Speech Skills, Language Skills Education Provided: Yes, see treatment interventions for education provided Education Provided To: Patient, Family Education Mode/Type: Explanation/Discussion Response to Education/Teach Back: States/Identifies, Requires Review/Additional Education TREATMENT: PT Treatment Interventions: Therapeutic Activity Evaluation Evaluation Therapeutic Activity: 1: Pt/family ed regarding clinical findings, POC and goals. 2: Pt/family ed regarding PD. 3: Pt/family ed regarding shower safety. Recommend grab bars in shower and railings on steps into home. 4: Pt ed regarding drinking water to help manage orthostatic hypotension. Recommended abdominal binder and compression knee high stockings. Skilled Intervention: Education : See above. Billing * Evaluation Low Complexity: 1 Unit Therapeutic Activity Treatment Minutes: 23 Skilled Treatment Time Minutes (timed and untimed codes): 55 Total Session Time (minutes): 55 Session Start Time : 1150 Session Stop Time : 1245 Shara Tapia PT documented in this encounter [facility] 07-31-2024 Note HNO ID: [id number] Author: SAYRA MABRY MD Service: ? Author Type: Physician Type: Progress Notes Filed: 07/31/2024 17:03 Note Text: [facility] - FOLLOW UP EVALUATION Ramsey Mayorga [address] [facility] [place] [address] Marvel Rizzo MD [address] [facility] [id number] I had the pleasure of seeing Ms. Olvier for follow up today. She is a 79 year old ambidextrous female with a history of PD since 2019. She is seen with daughters. Subjective Previous Plan-03/25/2024 Visit: Increase the fluids to at least 60 ounces. Gatorade is helpful too. See more tips below. Increase Florinef back to 2/day - No change to Sinemet - Continue exercise - - Interval History: On 07/14 she presented for follow-up with me and fell in the parking lot. There was a sizable hematoma on her head so she was taken to ED. Fall possibly related to syncope. NOH was brought under better control with midodrine. Feeling less lightheadedness. Numbers are still low but better than before. Was doing well on the water intake (72 ounces) but less lately, maybe 24 ounces. Doesn't get hungry so she forgets to eat. Family trying to increase her food. Thought about snacking with doses. Worst time of day is 4-7p. Sinemet doses lasting 2 hours. Less nausea since starting midodrine but appetite hasn't increased. Not using compression garments. Bloats through the day which limits abdominal binder. Given knee highs. Could not put on the waist high ones. Falls. Unclear if balance or BP. Once while getting dressed. Did PT for her neck which she didn't find helpful. Goes to Parkinson's exercise when she feels good enough. Was doing 4 classes per week. She doesn't want to give them up due to social aspect. EMS has been called for her at classes multiple times. Parkinson's Medication Schedule - as of the start of the visit: Medications 7 11 3 7 11 Sinemet IR 25/100 1 2 1.5 1 Sinemet CR 50/200 1 1 Parkinson's Motor Complications Medication benefit onset: 45 minutes Medication duration: 2 hours Wearing off: no (Comment: mild) Dyskinesia: yes Questionnaires In addition, the following areas that may be affected by abnormal involuntary movements were evaluated: Daily activities Difficulties with eating: Yes (mild) Difficulties in dressing: Yes (mild) Difficulties with hygiene activities: Yes (slight) Difficulties with handwriting: Yes (mild) Difficulties with doing hobbies and other activities: Yes (mild) Difficulties turning in bed: Yes (slight) Difficulties getting out of bed, car or chair: Yes (moderate) Tremors/Gait/Balance Shaking or tremors: Yes (moderate) Walking and balance problems: Yes (moderate) Number of falls in the Last Month: 4 Gait freezing: Yes (mild) Autonomic/Pain Lightheadeness on standing: Yes (moderate) Urinary problems: Yes (mild) Constipation problems: Yes (mild) Pain and other sensations: Yes (mild) Speech/Swallowing Speech problems: Yes (mild) Drooling: Yes (mild) Chewing and swallowing problems: Yes (slight) Sleep/Fatigue Sleep problems: Yes (mild) Daytime sleepiness: Yes (mild) Fatigue: Yes (mild) ALLERGIES Allergen Reactions Sulfa (Sulfonamide * Hives Current Outpatient Medications Medication Sig midodrine (PROAMITINE) 5 mg tablet Take 1 tablet by mouth every [address] (PROTONIX) 40 mg tablet Take 1 tablet by mouth once daily. On empty stomach at least 30 minutes before eating. sertraline (ZOLOFT) 50 mg tablet Take 1 tablet by mouth once daily. Take a total of 150 mgs daily. sertraline (ZOLOFT) 100 mg tablet Take 1 tablet by mouth once daily. fludrocortisone (FLORINEF) 0.1 mg tablet Take 1 tablet by mouth once daily. levothyroxine (SYNTHROID) 75 mcg tablet Take 1 tablet by mouth once daily. Take on empty stomach. For Thyroid carbidopa-levodopa (SINEMET 25-100) 25-100 mg per tablet TAKE 1 TAB AT 7AM, 1.5 TO 2 TABS AT 11AM, 1.5 TABS AT 3PM AND 1 TAB AT 7PM. Olopatadine (PATADAY ONCE DAILY RELIEF) 0.2 % drop Use 1 Drop in both eyes once daily. ondansetron orally disintegrating (ZOFRAN ODT) 4 mg disintegrating tablet Take 1 tablet by mouth every 8 hours as needed for nausea/vomiting. docusate sodium (COLACE) 100 mg capsule Take 1 capsule by mouth two times a day. pravastatin (PRAVACHOL) 20 mg tablet Take 1 tablet by mouth daily at bedtime. carbidopa-levodopa CR (SINEMET CR) 50-200 mg per tablet TAKE 1 TABLET BY MOUTH in Morning and before bedtime as instructed. gabapentin (NEURONTIN) 100 mg capsule Take 1 capsule by mouth two times a day for 180 days. LORazepam (ATIVAN) 0.5 mg Take 0.5 mg by mouth as needed. Cholecalciferol, Vitamin D3, 50 mcg (2,000 unit) cap Take 2,000 Units by mouth once daily. No current facility-administered medications for this visit. Objective Vital Signs: Wt 56.7 kg (125 lb) SpO2 98% BMI 22.14 kg/m? Orthostatic Vitals: Sitting: BP 110/50 Pulse 71 Standi (more content not included)... [facility] 07-31-2024 History of Present illness Narrative [facility] - FOLLOW UP EVALUATION Ramsey Mayorga [address] [facility] [address] Marvel Rizzo MD [id number] [facility] [id number] I had the pleasure of seeing Ms. Oliver for follow up today. She is a 79 year old ambidextrous female with a history of PD since 2019. She is seen with daughters. Subjective Previous Plan-03/25/2024 Visit: Increase the fluids to at least 60 ounces. Gatorade is helpful too. See more tips below. Increase Florinef back to 2/day - No change to Sinemet - Continue exercise - - Interval History: On 07/14 she presented for follow-up with me and fell in the parking lot. There was a sizable hematoma on her head so she was taken to ED. Fall possibly related to syncope. NOH was brought under better control with midodrine. Feeling less lightheadedness. Numbers are still low but better than before. Was doing well on the water intake (72 ounces) but less lately, maybe 24 ounces. Doesn't get hungry so she forgets to eat. Family trying to increase her food. Thought about snacking with doses. Worst time of day is 4-7p. Sinemet doses lasting 2 hours. Less nausea since starting midodrine but appetite hasn't increased. Not using compression garments. Bloats through the day which limits abdominal binder. Given knee highs. Could not put on the waist high ones. Falls. Unclear if balance or BP. Once while getting dressed. Did PT for her neck which she didn't find helpful. Goes to Parkinson's exercise when she feels good enough. Was doing 4 classes per week. She doesn't want to give them up due to social aspect. EMS has been called for her at classes multiple times. Parkinson's Medication Schedule - as of the start of the visit: Medications 7 11 3 7 11 Sinemet IR 25/100 1 2 1.5 1 Sinemet CR 50/200 1 1 Parkinson's Motor Complications Medication benefit onset: 45 minutes Medication duration: 2 hours Wearing off: no (Comment: mild) Dyskinesia: yes Questionnaires In addition, the following areas that may be affected by abnormal involuntary movements were evaluated: Daily activities Difficulties with eating: Yes (mild) Difficulties in dressing: Yes (mild) Difficulties with hygiene activities: Yes (slight) Difficulties with handwriting: Yes (mild) Difficulties with doing hobbies and other activities: Yes (mild) Difficulties turning in bed: Yes (slight) Difficulties getting out of bed, car or chair: Yes (moderate) Tremors/Gait/Balance Shaking or tremors: Yes (moderate) Walking and balance problems: Yes (moderate) Number of falls in the Last Month: 4 Gait freezing: Yes (mild) Autonomic/Pain Lightheadeness on standing: Yes (moderate) Urinary problems: Yes (mild) Constipation problems: Yes (mild) Pain and other sensations: Yes (mild) Speech/Swallowing Speech problems: Yes (mild) Drooling: Yes (mild) Chewing and swallowing problems: Yes (slight) Sleep/Fatigue Sleep problems: Yes (mild) Daytime sleepiness: Yes (mild) Fatigue: Yes (mild) ALLERGIES Allergen Reactions Sulfa (Sulfonamide * Hives Current Outpatient Medications Medication Sig midodrine (PROAMITINE) 5 mg tablet Take 1 tablet by mouth every [address] (PROTONIX) 40 mg tablet Take 1 tablet by mouth once daily. On empty stomach at least 30 minutes before eating. sertraline (ZOLOFT) 50 mg tablet Take 1 tablet by mouth once daily. Take a total of 150 mgs daily. sertraline (ZOLOFT) 100 mg tablet Take 1 tablet by mouth once daily. fludrocortisone (FLORINEF) 0.1 mg tablet Take 1 tablet by mouth once daily. levothyroxine (SYNTHROID) 75 mcg tablet Take 1 tablet by mouth once daily. Take on empty stomach. For Thyroid carbidopa-levodopa (SINEMET 25-100) 25-100 mg per tablet TAKE 1 TAB AT 7AM, 1.5 TO 2 TABS AT 11AM, 1.5 TABS AT 3PM AND 1 TAB AT 7PM. Olopatadine (PATADAY ONCE DAILY RELIEF) 0.2 % drop Use 1 Drop in both eyes once daily. ondansetron orally disintegrating (ZOFRAN ODT) 4 mg disintegrating tablet Take 1 tablet by mouth every 8 hours as needed for nausea/vomiting. docusate sodium (COLACE) 100 mg capsule Take 1 capsule by mouth two times a day. pravastatin (PRAVACHOL) 20 mg tablet Take 1 tablet by mouth daily at bedtime. carbidopa-levodopa CR (SINEMET CR) 50-200 mg per tablet TAKE 1 TABLET BY MOUTH in Morning and before bedtime as instructed. gabapentin (NEURONTIN) 100 mg capsule Take 1 capsule by mouth two times a day for 180 days. LORazepam (ATIVAN) 0.5 mg Take 0.5 mg by mouth as needed. Cholecalciferol, Vitamin D3, 50 mcg (2,000 unit) cap Take 2,000 Units by mouth once daily. No current facility-administered medications for this visit. Objective Vital Signs: Wt 56.7 kg (125 lb) SpO2 98% BMI 22.14 kg/m Orthostatic Vitals: Sitting: BP 110/50 Pulse 71 Standing: BP 82/47 Pulse 82 Weight: 56.7 kg (125 lb) No LMP recorded. Patient is postmenopausal. Body mass index is 22.14 kg/m . General Physical Examination: General: Awake, alert, interactive, no acute distress, good nutritional status, normal development, well-kept General Neurological Examination: Neurological Exam Mental Status Awake and alert. Language is fluent with no aphasia. Motor No tremor. Frequent mild dyskinesia. Gait Ambulates with walker. Assessment and Plan: Assessment Ms. Oliver is a ambidextrous 79 year old year old female with PD. Patient of Dr. Connolly referred by PCP for second opinion. Main issue lately is NOH. Her motor symptoms are manageable. She has dyskinesia and off time which she tolerates. She may benefit from switch to Rytary vs subcutaneous levodopa infusion when it is FDA approved. Reducing Sinemet to address NOH would likely cause more off time. At some point could consider amantadine for dyskinesia and off time but it can worsen NOH too. She is losing weight which could be related to her GI issues vs excess calorie burn from dyskinesia. Her BP is still low but better. No change to Parkinson's medications today. Needs to increase fluids. Discussed abdominal binder as alternative to compression stockings since felt to be just as effective and easier to put on. Continue working on BP with PCP. She is falling often due to imbalance. Recommend Parkinson's PT. Daughter lives in [place] and willing to take her to [place]. Take a break from the more strenuous exercises classes for now. The following are the current problems noted and addressed during this visit: Parkinson's disease with dyskinesia, unspecified whether manifestations fluctuate (hcc) (primary encounter diagnosis) Plan 07/31/2024 Visit: Continue your medications as you have been taking them. We are not making any changes today. If you feel you are not tolerating them or your symptoms are changing before your next appointment, please feel free to send me a [employer] message or contact the office - Parkinson's PT - For the BP - continue midodrine and Florinef. Increase fluids. Discussed other conservative treatment Interested in clinical research? Not discussed Updated Movement Disorders Medication Schedule: Medications 7 11 3 7 11 Sinemet IR 25/100 1 2 1.5 1 Sinemet CR 50/200 1 1 Return at or around: 10/31/24 Level of service : 38034 (40-68 min). Time spent 49 min on the day of service, which included preparing to see the patient, [id number] patient care, completing clinical documentation, obtaining and/or reviewing separately obtained history, and counseling and educating the patient/family/caregiver. Thank you for allowing me to be part of the clinical care of this patient! I look forward to continued participation in the patient s care with you. Please do not hesitate to call with any questions. Sincerely, Sayra Mabry MD documented in this encounter [facility] 07-31-2024 Instructions Sayra Mabry MD - 07/31/2024 10:14 AM EDT Images from the original note were not included. Guidelines for the Treatment of orthostatic hypotension (low blood pressure upon standing) 1. Make all postural changes from lying to sitting or sitting to standing, slowly. 2. Drink to 2.0 -2.5 L of fluids per day. 3. Increase sodium in the diet to 3 - 5 g per day. IF THIS IS OK with your medical doctor. 4. Avoid large meals which can cause low blood pressure during digestion. It is better to eat smaller meals more often than three large meals. 5. Avoid alcohol. Alcohol can cause blood to pool in the legs which may worsen low blood pressure reactions when standing. 6. Perform lower extremity exercises to improve strength of the leg muscles. This will help prevent blood from a pooling in the legs when standing and walking. 7. Raise the head of the bed by 6 to 10 inches. The entire bed must be at an angle. Raising only the head portion of the bed at waist level or using pillows will not be effective. Raising the head of the bed will reduce urine formation overnight and there will be more volume in the circulation in the morning. 8. Drink 500 cc of water quickly as soon as you wake up in the morning BEFORE you even get out of bed. This will result in an increased blood pressure within 5 minutes of drinking the water. The effect will last up to one hour and may improve orthostatic intolerance. 9. Use custom fitted elastic support stockings. These will reduce a tendency for blood to pool in the legs when standing and may improve orthostatic intolerance. These have to be Thigh-high. Compression stockings that only reach the knees are not as helpful. 10. Use physical counter maneuvers such as leg crossing, squatting, or raising and resting the leg on a chair. These maneuvers increase blood pressure. Constipation and Other Gastrointestinal Problems in Parkinson's Disease As you know, Parkinson s disease (PD) affects many body systems, not just movement. This includes the autonomic nervous system -- that is, the part of the nervous system that controls automatic bodily functions such as heart rate, blood pressure, sweating, sexual function and both gastrointestinal and urinary function. These can be among the most serious and complex issues faced by people with PD. Constipation, cramping and bloating are all common among people with Parkinson s. These issues can be caused both by the disease itself and by the medications used to treat it. The good news is that there are steps that you can take to lessen its impact on your life. Stomach Problems Impaired ability to empty the contents of the stomach, called gastroparesis, is a potential complication of PD. This may produce a bloated sensation and cause you to feel full even if you have eaten very little. Sometimes nausea may develop. Failure of the stomach to empty in a timely fashion may also impair or delay the effectiveness of PD medications, especially levodopa. Levodopa is absorbed from the small intestine and cannot get to its destination if it is trapped in the stomach. Unfortunately, treatment of gastroparesis in PD has not been extensively studied, and there are not many treatment options. Domperidone is an effective medication, but it is not available in the [place]. FDA approved Duopa , a form of levodopa designed to be delivered directly into the small intestine, may be helpful for some people experiencing gastroparesis. New levodopa delivery methods that bypass the stomach might help in the future, such as a skin patch, supplemental treatment with DBS, sublingual, or subcutaneous agonists. Constipation Constipation means difficulty passing stools (bowel movement, feces), a decrease in the number of stools, or both. It is often accompanied by one or more of the following symptoms: No stool (bowel movement) for days Distention (bloating) of abdomen, cramping, a feeling of pressure in the lower abdomen Straining to eliminate Incomplete evacuation of stool Hard, pellet stools Constipation can be acute (sudden onset of short duration) or chronic (persisting for several weeks or longer). In PD, constipation is likely to be chronic. When constipation is severe, the stool stays in the colon and backs up , causing a condition called impaction. Most healthcare providers describe constipation as having less than three bowel movements a week and recommend treatment after three days without a bowel movement, but everyone is slightly different. The frequency of bowel movements depends on what you have been eating and drinking, and the unique functioning of your own body. If you are experiencing fewer than three bowel movements in a week or have any of the symptoms listed, talk to your healthcare provider. Why Do I Get Constipated? We are still learning about constipation in PD and why it happens. Here is what we know: Parkinson s Disease The same changes that occur in brain cells in Parkinson s disease may also occur in nerve cells in the spinal cord and the intestinal wall. These changes may slow down the muscles that push food through the intestines. Medications Medications used to treat PD -- in particular, the class called anticholinergics and the medication amantadine, used to treat dyskinesia -- are known for causing constipation. If you are on these medications, your healthcare provider may be able to reduce your dose or switch you to a different one. But for some people, the benefits of the medication outweigh the possibility of constipation. Decrease in Physical Activity Because people with Parkinson s disease experience difficulty with their movement, they often become less active. People with PD who increase their movement experience better overall functioning, which includes their digestive system. Decreased Water Intake Many people with Parkinson s disease limit their fluids to avoid making frequent trips to the bathroom. When a person drinks less liquid, the gut may not have the lubrication it needs to have a bowel movement, which contributes to constipation. Genetic Predisposition It is possible to have a family predisposition to constipation. Ask family members what solutions work for them. Your body may respond to the same strategies. Individual Body Chemistry Genetics aside, you are unique. Pay attention to your body and what is normal for you. Preventing Constipation Will your constipation get better? It is possible, but it depends in part on your own efforts. Of course, your healthcare provider and the medications he or she recommends play an important role. Still, constipation may persist despite your doctor s recommendations. That s where you come in. It is critical to put a daily plan in place -- one that can even prevent constipation before it begins. This is called creating a bowel program - Here are some strategies: Drink a lot of fluid (i.e., at least eight 8-oz glasses, excluding caffeine and alcohol, which act as diuretics and can aggravate constipation). It can be especially helpful to drink warm liquids, such as flavored sparkling guidry or lemonade, on rising and with breakfast, as warm liquid and food start bowel activity. Eat meals at the same times each day. Increase your fiber (e.g., cooked dried beans or fruits and vegetables with edible skins). Eat more foods that create bulk (e.g., whole grains and vegetables). Minimize your intake of low fiber starchy foods (e.g., breads, cookies, cake) or avoid them completely. Starchy foods do a great job at plugging up the digestive system! Try to establish a relaxed, regular time of the day for bowel movements. (About 1/2 hour after a meal is best as there is normally greater bowel activity at this time.) However, it also will help to train yourself to honor the urge to have a bowel movement. It may not always occur first thing in the morning or only at home! Be aware that the natural position for evacuating the bowel is squatting. Raised toilet seat devices may aid mobility but are not ideal for bowel function. Try hiking your feet up on a small bench while sitting on the toilet. Exercise more. Walk, dance, ride bikes or swim. Living with PD Constipation and Other Gastrointestinal Problems in PD Keep in mind that what works for one person may not work for another. You are unique. Pay attention to your body s individual habits and needs. The best way to do this is to keep an activity log or diary, like the Constipation Tracker on Page 8, where you can keep track of when you experience constipation. Record what else happened that day -- what you ate, if you exercised, when you took medications -- and look for patterns. This will help you figure out what triggers your constipation, how long it lasts, and what it responds to under varying circumstances. Then take steps to help prevent the constipation. It may take trial and error, but with time (can take weeks to months) and effort, you can begin to understand what works for you. Managing Constipation If you have tried the tips above but they did not work, what should you do next? The primary goals will be to manage your symptoms, avoid complications (such as impaction, hemorrhoids and a dependence on laxatives), and prevent future constipation. Treatments fall into two categories: kpbp-een-yitibyz and prescription therapies. Remember: consult with your healthcare provider before deciding on how to treat your constipation. The best treatment for constipation will vary from person to person, taking into account a variety of factors, including: other medical condition(s), medications or allergies that impact your treatment, the cost of treatment, the type of treatment used, how often the treatment must be taken/done in a day and your own convenience and preference. Vjkt-dqh-Ejhlbdx Products Eijs-rzi-kshlgch treatments for constipation can be purchased at your local pharmacy. There are several categories listed on the following pages, all of which work in different ways. They are offered in a variety of forms including capsule, powder, granule, syrup, gum, tablet, liquid and wafer. The best choice for you will depend on personal preferences and how your body responds. Preferred products are those that mimic the way the body works normally, i.e., by increasing bulk, fluids or lubricants in the intestines. It is important to note that stimulating laxatives, enemas, suppositories and combination products create dependence and are considered a last option, and should be used only when all others have been exhausted. Here are some things to keep in mind before selecting any products to address your constipation Relatively mild laxatives may be used while establishing a bowel program, but they are NOT a replacement for diet and bulk formers. Use them sparingly while you continue with your program. All laxatives should be used with caution. They activate the bowel by chemical irritation. Long-term use may actually harm the bowel. The bowel can easily become dependent on enemas. We recommend that you use enemas only when nothing else works. You may need to use suppositories while establishing a bowel program. If needed, use Glycerin daily or every other day. DO NOT use Dulcolax , as it is habit-forming and irritates the bowel. The following are listed in order of ease of consumption, cost, volume of therapeutic dose, taste. See list of common side effects. Senna Teas (caffeine free) These teas are herbal products whose use dates back to physicians in the ninth century! Drink a cup with dinner or in the evening and you should experience gentle, overnight relief from constipation in PD. Use senna teas with caution if you have a heart condition and are using Lanoxin (digoxin) or a diuretic. It also comes as a capsule (Senna [place] Smooth Move ). ving with PD Constipation and Other Gastrointestinal Problems in PD Emollients (stool softeners) These work by allowing more fluid into the fecal material. They contain wetting agents that improve the ability of water to mix with stool, which softens the stool. They do not stimulate bowel movements or increase bowel movement frequency. They make the stool softer and easier to pass. These can be used regional intermodal truck driver but should not be used in combination with products containing mineral oil. Some people with PD find the stool is soft, but difficult to pass as the muscles in the lower abdomen may not be strong enough or the momentum is slowed due to the disease. Examples include docusate (Colace and Surfak ). Bulk Formers These work by creating bulk in the intestinal tract.Many types of fiber products bind with water in the intestine, keeping the water in the intestine to soften the stool, while adding bulk/volume to it. They must be taken with at least eight ounces of water. Bulk formers produce results in 12 to 72 hours and are safe for long-term use. Examples include guar gum (Benefiber ); inulin (FiberSure ); methylcellulose (Citrucel ); malt soup extract (Maltsupex ); polycarbophil (Fibercon ); psyllium (Konsyl ). Lubricants These work by lubricating the intestinal tract. They contain mineral oil, which coats the particles of stool, making it softer. Mineral oil does not stimulate a bowel movement or increase bowel movement frequency. Like emollients, it makes the stool easier to pass. They should only be used for short periods of time or periodically, as the oil can absorb some vitamins. They should not be used when taking warfarin (Coumadin ). An example is mineral oil (Fleet ). When purchasing, be sure to purchase just mineral oil, without any additives. Os motic Laxatives These work by drawing fluids into the intestinal tract. They are indigestible, nonabsorbable compounds that assist in retaining water in the colon, thereby softening the stool. Osmotic laxatives produce a bowel movement within one to three days. They may cause gas initially, but this usually resolves. Osmotic laxatives are safe for long-term use. Diabetics need to be especially careful in their choice of an osmotic laxative as large sugar molecules (e.g. sorbitol) are sometimes used. Examples include lactulose (Kristalose ); polyethylene glycol 3350 (MiraLax ); polyethylene glycol (GlycoLax ); sorbitol. Saline Laxatives These contain magnesium, sulfate, phosphate or citrate. They cause a softening of the stool by retaining water in the colon. They generally work within several hours. In general, they should not be used on a regular basis as they can cause dehydration and electrolyte problems. People with kidney disease, congestive heart failure, or those who are advised by their healthcare provider to control salt and water intake should not take saline laxatives. For mild results, examples include magnesium hydroxide (Milk of Magnesia ), sodium biphosphate and sodium phosphate (Fleet , Phospho-Soda , Visicol ). For strong results, examples include magnesium sulfate (Epsom salt). Stimulant Laxatives (Not for long-term use) These should be used sparingly with PD and only after other remedies have failed. Among the hckq-oap-pcejnnc laxatives, they are most likely to cause diarrhea and cramping. Chronic use can lead to colon damage. They work by causing the muscles of the small intestine and colon to propel their contents more rapidly. Some stimulant laxatives increase the absorption of water in the small intestine. Examples include bisacodyl (Dulcolax , Correctol ); castor oil; casanthranol; cascara (Nature s Remedy ) senna. Enemas Enemas stimulate the colon to contract and eliminate stool. They are useful in PD when there is impaction. In most cases, routine use should be avoided as they affect the fluid and electrolyte balance in the body. Soap suds enemas, commonly used in the past, should not be used as they can damage the rectum. Examples of common enema preparations include docusate sodium (Colace ), saline enema, microenema, tap water enema, mineral oil enemas. Suppositories A suppository is a wax-like form which is lubricated and inserted directly into the rectum as high as the finger can put it. Suppositories provide rectal stimulation to empty the bowel. Stool must be present in the rectum for suppositories to be effective. Suppositories must make contact with the inside wall of the rectum to work. They should be refrigerated until used or they can melt. Glycerin suppositories provide lubrication, while bisacodyl suppositories contain the stimulant laxative bisacodyl. Examples include bisacodyl (Dulcolax ) and glycerin. Combination Products These products combine two or three of thepreviously mentioned ingredients and stimulate bodily and intestinal functions. They can be convenient and effective. Those containing artificial stimulants should not be used in most long-term situations. Examples includecasanthranol (Sof-Lax Overnight ); docusate (Anais-Colace , Senokot ); glycerin; senna; senna and glycerin (Gupta s Laxative ); and senna and psyllium (Perdiem ). Common Side Effects of Pyms-yjr-Mrreupx Products for Constipation Emollient (Stool Softeners) Skin rash Stomach and/or intestinal cramping Bulk Forming Skin rash or itching Difficulty swallowing Intestinal blockage Difficulty breathing Lubricant Skin irritation surrounding rectal area Aspiration (medication sucked into lungs) Os motic Bloating Cramping Gas Increased thirst Nausea Saline Confusion Dizziness or lightheadedness Irregular heartbeat Muscle cramps Unusual tiredness or weakness Stimulants Belching Cramping Diarrhea Nausea Confusion Irregular heartbeat Muscle cramps Discoloration of urine (for cascara and/or senna only), e.g. pink to red, red to arcelia, red to brownish color Skin rash Unusual tiredness or weakness Note: side effects very from person to person. Please consult your healthcare provider if you have concerns about any side effects listed. Prescription Products When envk-srq-bmhmrdp remedies fail, your healthcare provider may recommend prescription products to treat constipation. Right now, there are two remedies approved by the U.S. Food and Drug Administration (FDA). They are often available by generic name or trade name (the trade name product is generally more expensive). Lubiprostone (Amitiza): works by increasing stool water content. Side effects include headache, nausea, diarrhea, abdominal pain and vomiting. Linaclotide (Linzess): increases bowel movement frequency. Its most common side effect is diarrhea. Living with PD Constipation and Other Gastrointestinal Problems in PD What s Right for Me? Your objective is to be as comfortable as possible. Know What to Avoid Impaction (i.e., solid bulk of stool in the rectum that must be manually removed). Hemorrhoids (distention of veins in area of anus). Chronic dependence on laxatives. Complications from other diseases you have that can be worsened by treatments for constipation. Know Your Normal Habits Assess your normal by logging your elimination habits versus your dietary intake, the fluids you consume and exercise for one normal week. Note any changes in your bowel movements early, so you can intervene sooner rather than later (consult your healthcare provider as appropriate). Select the Right Management Plan Consult your healthcare provider. Discuss a trial and error process that considers your medical condition(s), all the drugs you take, and your preferences (form in which taken, frequency/time of administration, taste, effectiveness, etc.). List of Oral Laxatives This list is incomplete, but will help to familiarize you with some products on the market. The list is in alphabetical order with no preference to one brand over another. Brand Name Category Non-Stimulation Stimulating A-3 Revised Combination X Alocass Stimulant X Bisacodyl (Dulcolax ) Stimulant X [place] Oil Stimulant X Cellulose (Unifiber ) Bulk X Dehydrocholic Acid (Cholan-HMB ) Stimulant X Docusate Sodium (Colace ) Emollient X Docusate and Senna (Doc-Q-Lax ) Stimulant X Docusate (Docucal ) Emollient X Docusate (Surfak ) Emollient X Fleet Mineral Oil Lubricant X Guar Gum (Benefiber ) Bulk X Lactulose (Kristalose ) Osmotic X Magnesium Citrate (Citrate Of Magnesia) Saline X Magnesium Hydroxide (Carroll Milk of Magnesia) Saline X Magnesium Supplement (Mag-Gel 600 ) Stimulant X Methylcellulose (Citrucel ) Bulk X Phospho-Soda (Fleet Phospho-Soda) Saline X Polyethylene Glycol (GaviLAX ) Osmotic X Polyethylene Glycol (GaviLyte-N with Flavor Pack) Osmotic X Polyethylene Glycol (GlycoLax ) Osmotic X Polycarbophil (Fibercon ) Bulk X Polyethylene Glycol (NuLYTELY ) Combination X Psyllium (Metamucil ) Bulk X [employer] Senna Stimulant X Senna (Black-Draught ) Stimulant X Senna and Docusate (Senna-S) Stimulant X Senna and Docusate (Senokot ) Stimulant X Adapted from: [facility] Website, accessed February 14, 2016, www.[email or web address]/health/druginfo rmation/ [id number] Special Precautions For your safety, consult your healthcare provider before taking any products. Of particular concern should be any of the following: Over-using laxatives could create dependence. Watch for: Signs and symptoms of appendicitis, which could include fever, abdominal pain, loss of appetite. Rectal bleeding from unknown cause. Intestinal blockage. Be careful if you have any of these conditions: Colostomy: potential for diarrhea when bag fills quickly. Ileostomy: potential for diarrhea when bag fills quickly. Type 2 diabetes: some laxatives are high in sugar. Heart disease: straining to eliminate stool can strain the heart, and it may not be able to compensate. High blood pressure: some laxatives are high in sodium. Kidney disease: some laxatives have magnesium and potassium in them. Swallowing difficulty: of concern would be aspiration of the laxative into the lungs causing pneumonia or blockage of the esophagus. Living with PD can be challenging. Motor and non-motor symptoms impact daily life, but there are many things a patient can do to lessen this impact. Daily attention to bowel function is important to feeling one s best and to avoid serious complications such as impaction. If you need further guidance, please contact your health care provider. Contributing authors: Hamzah Ha, Ph.D., R.N., and Esequiel Meredith, M.S.N., C.R.N.P. Constipation Tracker Day/Date Time Food(s) Eaten Activities Emotional Status Stool Description Feel free to photocopy this page and use it throughout the year to track your symptoms and share with your doctor. This is a patient education material provided by the [employer]. For more information and resources see https://www.parkinson.org/. [facility] is a Center of Excellence for the [employer] [facility] [employer]. documented in this encounter [facility] 07-23-2024 Note HNO ID: [id number] Author: KIM MADRIGAL RN Service: ? Author Type: Registered Nurse Type: Progress Notes Filed: 07/23/2024 14:12 Note Text: Transitional Care Management (TCM) Follow-Up Note PCP Update / Actionable Items Called spoke with patient for follow up , continues do well at home. Patient was a little unsure if her BP reading was too low - reading was 113/56. Informed patient this is a great reading and much better then it was in the past. She did have some diastolic readings of 46-47 but BP sounds to improve throughout the day. No further concerns at this time Recently saw PCP 07/21 N/A - No specialty updates needed Patient Source: In-Network Discharge Follow-up outreach: TCM enrolled patient Outreach Summary: Patient discharged from [facility] Discharge date: 07/15/2024 Admitted for: syncope Readmission Risk: 10 Value-Based Contract: ACO Contact: Contact made with patient: Yes Spoke to: Patient Validation: Validated the person spoken to is actively involved in the patient's care. The patient was identified by Name and Date of . I'd like to get an update on how you're doing since our last phone call. Is now a good time to talk? Yes Symptoms: Are you feeling about the same, better or worse since leaving the hospital? Better Weekly Outreach: 1st Outreach Medications: Do you have any questions about taking your medications, including which medications you should be on, or do you need refills on your medications? No Patient Questions / Concerns: Do you have any questions related to your discharge? No Appointment / TCM Follow-Up: Have you had a follow-up visit with your Primary Care Provider or Specialist since you were discharged? Yes Do you need any assistance with scheduling or changing your follow-up appointments? Already seen Education Is Patient aware of blood pressure target: Yes Targets addressed / completed during outreach: N/A Outreach Outcome: Continue TCM Outreach for remainder of 30 days Care Management partners utilized: N/A Kim Madrigal RN July 23, 2024 2:11 PM [facility] 07-23-2024 History of Present illness Narrative Transitional Care Management (TCM) Follow-Up Note PCP Update / Actionable Items Called spoke with patient for follow up , continues do well at home. Patient was a little unsure if her BP reading was too low - reading was 113/56. Informed patient this is a great reading and much better then it was in the past. She did have some diastolic readings of 46-47 but BP sounds to improve throughout the day. No further concerns at this time Recently saw PCP 07/21 N/A - No specialty updates needed Patient Source: In-Network Discharge Follow-up outreach: TCM enrolled patient Outreach Summary: Patient discharged from [facility] Discharge date: 07/15/2024 Admitted for: syncope Readmission Risk: 10 Value-Based Contract: ACO Contact: Contact made with patient: Yes Spoke to: Patient Validation: Validated the person spoken to is actively involved in the patient's care. The patient was identified by Name and Date of . I'd like to get an update on how you're doing since our last phone call. Is now a good time to talk? Yes Symptoms: Are you feeling about the same, better or worse since leaving the hospital? Better Weekly Outreach: 1st Outreach Medications: Do you have any questions about taking your medications, including which medications you should be on, or do you need refills on your medications? No Patient Questions / Concerns: Do you have any questions related to your discharge? No Appointment / TCM Follow-Up: Have you had a follow-up visit with your Primary Care Provider or Specialist since you were discharged? Yes Do you need any assistance with scheduling or changing your follow-up appointments? Already seen Education Is Patient aware of blood pressure target: Yes Targets addressed / completed during outreach: N/A Outreach Outcome: Continue TCM Outreach for remainder of 30 days Care Management partners utilized: N/A Kim Madrigal RN July 23, 2024 2:11 PM documented in this encounter [facility] 07-23-2024 Note Patient Outreach ([facility] [place]) LOU OLIVER ([id number]) 1945 F Date Time Provider Department 07/23/24 KIM MADRIGAL During your visit today, we recorded the following information about you: Kim Madrigal RN 07/23/2024 2:12 PM Signed Transitional Care Management (TCM) Follow-Up Note PCP Update / Actionable Items Called spoke with patient for follow up , continues do well at home. Patient was a little unsure if her BP reading was too low - reading was 113/56. Informed patient this is a great reading and much better then it was in the past. She did have some diastolic readings of 46-47 but BP sounds to improve throughout the day. No further concerns at this time Recently saw PCP 07/21 N/A - No specialty updates needed Patient Source: In-Network Discharge Follow-up outreach: TCM enrolled patient Outreach Summary: Patient discharged from [facility] Discharge date: 07/15/2024 Admitted for: syncope Readmission Risk: 10 Value-Based Contract: ACO Contact: Contact made with patient: Yes Spoke to: Patient Validation: Validated the person spoken to is actively involved in the patient's care. The patient was identified by Name and Date of . I'd like to get an update on how you're doing since our last phone call. Is now a good time to talk? Yes Symptoms: Are you feeling about the same, better or worse since leaving the hospital? Better Weekly Outreach: 1st Outreach Medications: Do you have any questions about taking your medications, including which medications you should be on, or do you need refills on your medications? No Patient Questions / Concerns: Do you have any questions related to your discharge? No Appointment / TCM Follow-Up: Have you had a follow-up visit with your Primary Care Provider or Specialist since you were discharged? Yes Do you need any assistance with scheduling or changing your follow-up appointments? Already seen Education Is Patient aware of blood pressure target: Yes Targets addressed / completed during outreach: N/A Outreach Outcome: Continue TCM Outreach for remainder of 30 days Care Management partners utilized: N/A Kim Madrigal RN July 23, 2024 2:11 PM Allergies As of Date: 07/23/2024 Noted Allergy Reaction SULFA (SULFONAMIDE ANTIBIOTICS) 10/26/2005 4 - Hives Date Reviewed: 07/21/2024 Reviewed by: Silvano Myrick MA - Fully Assessed Reason for Visit: Transition Of Care [4074] Cmt: Follow up day 8 Prescriptions as of 07/23/2024 - midodrine (PROAMITINE) 5 mg tablet Take 1 tablet by mouth every 8 hours. - pantoprazole DR (PROTONIX) 40 mg tablet Take 1 tablet by mouth once daily. On empty stomach at least 30 minutes before eating. - sertraline (ZOLOFT) 50 mg tablet Take 1 tablet by mouth once daily. Take a total of 150 mgs daily. - sertraline (ZOLOFT) 100 mg tablet Take 1 tablet by mouth once daily. - fludrocortisone (FLORINEF) 0.1 mg tablet Take 1 tablet by mouth once daily. - levothyroxine (SYNTHROID) 75 mcg tablet Take 1 tablet by mouth once daily. Take on empty stomach. For Thyroid - carbidopa-levodopa (SINEMET 25-100) 25-100 mg per tablet TAKE 1 TAB AT 7AM, 1.5 TO 2 TABS AT 11AM, 1.5 TABS AT 3PM AND 1 TAB AT 7PM. - Olopatadine (PATADAY ONCE DAILY RELIEF) 0.2 % drop Use 1 Drop in both eyes once daily. - ondansetron orally disintegrating (ZOFRAN ODT) 4 mg disintegrating tablet Take 1 tablet by mouth every 8 hours as needed for nausea/vomiting. - docusate sodium (COLACE) 100 mg capsule Take 1 capsule by mouth two times a day. - pravastatin (PRAVACHOL) 20 mg tablet Take 1 tablet by mouth daily at bedtime. - carbidopa-levodopa CR (SINEMET CR) 50-200 mg per tablet TAKE 1 TABLET BY MOUTH in Morning and before bedtime as instructed. - gabapentin (NEURONTIN) 100 mg capsule Take 1 capsule by mouth two times a day for 180 days. - LORazepam (ATIVAN) 0.5 mg Take 0.5 mg by mouth as needed. - Cholecalciferol, Vitamin D3, 50 mcg (2,000 unit) cap Take 2,000 Units by mouth once daily. Problem List As Of Date 07/23/2024 Noted Resolved Essential hypertension, benign [I10] 04/04/2007 Hypothyroidism [E03.9] 04/04/2007 COMMON MIGRAINE [346.1] 04/04/2007 Anxiety state [F41.1] 04/04/2007 Mixed hyperlipidemia [E78.2] 10/26/2009 Pes anserinus bursitis of left knee [M70.52] 10/29/2013 Left knee pain [M25.562] 10/29/2013 Cervical spondylosis without myelopathy [M47.81*05/18/2020 Parkinson disease (HCC) [G20.A1] 07/18/2020 Spinal stenosis of cervical region [M48.02] 07/18/2020 Intracranial meningioma (HCC) [D32.0] 07/18/2020 Palpitations [R00.2] 10/03/2020 Shortness of breath [R06.02] 10/03/2020 Tachycardia [R00.0] 06/12/2021 Neck pain [M54.2] 04/09/2023 Neck muscle weakness [M53.82] 04/09/2023 Major depressive disorder, single episode, nila*06/05/2024 Syncope and collapse [R55] 09 (more content not included)... [facility] 07-21-2024 Note HNO ID: [id number] Author: MARVEL RIZZO MD Service: ? Author Type: Physician Type: Progress Notes Filed: 07/21/2024 17:15 Note Text: Patient presents with: Hospital Follow Up Lou Oliver is a 79 year old female who presents here today for Above Complaints.. Health Maintenance Depression Screening BP Controlled (<130/80) DTaP,Tdap,Td Vaccine(1 - Tdap) RSV Vaccine(1 - 1-dose 60+ series) Shingrix Vaccine(2 of 3) Covid-19 Vaccine(2022- season) Advance Directive Discussion HPI Lou is a very pleasant 79-year-old woman with a past medical history of migraine without aura, Parkinson's disease, intracranial meningioma, essential hypertension, mixed hyperlipidemia, palpitations, hypothyroidism, anxiety state. Lou is here for hospital follow-up. She sustained a fall while getting out of the car while going to her neurology appointment she states that she may have suffered a syncopal event. She has been having multiple of these events from low blood pressures despite being on fludrocortisone to help with her blood pressure. Despite that her blood pressures sometimes have been as low as 70. She had a CT of the head that was done and showed scalp hematoma but no intracranial bleeding. She was admitted to monitor her blood pressures and was started on midodrine 2.5 mg which did not improve the blood pressure enough so she was placed on midodrine 3 times a day to help her with the blood pressures. She has been keeping a log of her blood pressures after midodrine of 5 mg 3 times a day was started. Notes that the highest blood pressure she gets is 123 and most of them are in the 90s. Prior to that she was getting blood pressures in the 60s and 70s. The 60s and 70s systolic over the. But she was more dizzy. She did note that she is less dizzy but dizziness still remains especially if she gets up quickly. During the hospital stay she was orthostatic and she continues to be orthostatic. Currently she is on salt pill midodrine and fludrocortisone. We discussed the ability to stop or reduce medications of blood pressure goes high. An interesting finding is that she now has much less abdominal pain and less nausea. She is to have nausea and abdominal pain almost every day. Concerned with weight loss. She has been having less appetite because of the nausea and not been eating as much. She will try to eat better and stabilize her weight. Was happy to report that she has a new friend and he takes good care of her. No problem-specific Assessment AND Plan notes found for this encounter. PAST MEDICAL HISTORY Diagnosis Date Diverticulosis of colon (without mention of hemorrhage) Essential hypertension, benign 04/04/2007 Mental disorder Migraine without aura 04/04/2007 Parkinson disease (HCC) Unspecified hypothyroidism 04/04/2007 PAST SURGICAL HISTORY Procedure Laterality Date DELIVERY ONLY , low cervical x2 COLONOSCOPY FLX DX W/COLLJ SPEC WHEN PFRMD 1994 Colonoscopy COLONOSCOPY FLX DX W/COLLJ SPEC WHEN PFRMD 04/07/2012 Colonoscopy COLONOSCOPY FLX DX W/COLLJ SPEC WHEN PFRMD 06/17/2019 Colonoscopy DILATION AND CURETTAGE DXAND/THER NONOBSTETRIC 09/1982 Dilation AND curettage EGD W/O [facility] SPEC VARICIES INJ 11/29/2023 PAST SURGICAL HISTORY OF 02/1996 EMB TONSILLECTOMY AND ADENOIDECTOMY T/A (under age 13 years) FAMILY HISTORY Problem Relation Age of Onset Hypertension Mother Arthritis Mother Heart disease Mother Diabetes Father adult onset Emphysema Father Cancer Father lung Psychiatry Maternal Grandmother Ischemic Heart Disease Maternal Grandfather Diabetes Paternal Grandmother Asthma Daughter Allergic Rhinitis Daughter Colon Cancer No Family History Social History Tobacco Use Smoking status: Never Smokeless tobacco: Never Tobacco comments: Father smoked in childhood home. 2 spouses were smokers. Vaping Use Vaping status: Never Used Substance Use Topics Alcohol use: No Drug use: No Past medical history, appointments, medications, allergies reviewed. Pertinent Lab/Diagnostic Studies are reviewed and discussed today Current Outpatient Medications: midodrine (PROAMITINE) [address] (PROTONIX) 40 mg tablet sertraline (ZOLOFT) 50 mg tablet sertraline (ZOLOFT) 100 mg tablet fludrocortisone (FLORINEF) 0.1 mg tablet levothyroxine (SYNTHROID) 75 mcg tablet carbidopa-levodopa (SINEMET 25-100) 25-100 mg per tablet Olopatadine (PATADAY ONCE DAILY RELIEF) 0.2 % drop ondansetron orally disintegrating (ZOFRAN ODT) 4 mg disintegrating tablet docusate sodium (COLACE) 100 mg capsule pravastatin (PRAVACHOL) 20 mg tablet carbidopa-levodopa CR (SINEMET CR) 50-200 mg per tablet LORazepam (ATIVAN) 0.5 mg Cholecalciferol, Vitamin D3, 50 mcg (2,000 unit) cap gabapentin (NEURONTIN) 100 mg capsule Review of Systems CONSTITUTIONAL: No fevers, chills night sweats, unintended (more content not included)... [facility] 07-21-2024 History of Present illness Narrative Patient presents with: Hospital Follow Up Lou Oliver is a 79 year old female who presents here today for Above Complaints.. Health Maintenance Depression Screening BP Controlled (<130/80) DTaP,Tdap,Td Vaccine(1 - Tdap) RSV Vaccine(1 - 1-dose 60+ series) Shingrix Vaccine(2 of 3) Covid-19 Vaccine(2022- season) Advance Directive Discussion HPI Lou is a very pleasant 79-year-old woman with a past medical history of migraine without aura, Parkinson's disease, intracranial meningioma, essential hypertension, mixed hyperlipidemia, palpitations, hypothyroidism, anxiety state. Lou is here for hospital follow-up. She sustained a fall while getting out of the car while going to her neurology appointment she states that she may have suffered a syncopal event. She has been having multiple of these events from low blood pressures despite being on fludrocortisone to help with her blood pressure. Despite that her blood pressures sometimes have been as low as 70. She had a CT of the head that was done and showed scalp hematoma but no intracranial bleeding. She was admitted to monitor her blood pressures and was started on midodrine 2.5 mg which did not improve the blood pressure enough so she was placed on midodrine 3 times a day to help her with the blood pressures. She has been keeping a log of her blood pressures after midodrine of 5 mg 3 times a day was started. Notes that the highest blood pressure she gets is 123 and most of them are in the 90s. Prior to that she was getting blood pressures in the 60s and 70s. The 60s and 70s systolic over the. But she was more dizzy. She did note that she is less dizzy but dizziness still remains especially if she gets up quickly. During the hospital stay she was orthostatic and she continues to be orthostatic. Currently she is on salt pill midodrine and fludrocortisone. We discussed the ability to stop or reduce medications of blood pressure goes high. An interesting finding is that she now has much less abdominal pain and less nausea. She is to have nausea and abdominal pain almost every day. Concerned with weight loss. She has been having less appetite because of the nausea and not been eating as much. She will try to eat better and stabilize her weight. Was happy to report that she has a new friend and he takes good care of her. No problem-specific Assessment & Plan notes found for this encounter. PAST MEDICAL HISTORY Diagnosis Date Diverticulosis of colon (without mention of hemorrhage) Essential hypertension, benign 04/04/2007 Mental disorder Migraine without aura 04/04/2007 Parkinson disease (HCC) Unspecified hypothyroidism 04/04/2007 PAST SURGICAL HISTORY Procedure Laterality Date DELIVERY ONLY , low cervical x2 COLONOSCOPY FLX DX W/COLLJ SPEC WHEN PFRMD 1994 Colonoscopy COLONOSCOPY FLX DX W/COLLJ SPEC WHEN PFRMD 04/07/2012 Colonoscopy COLONOSCOPY FLX DX W/COLLJ SPEC WHEN PFRMD 06/17/2019 Colonoscopy DILATION & CURETTAGE DX&/THER NONOBSTETRIC 09/1982 Dilation & curettage EGD W/O [facility] SPEC VARICIES INJ 11/29/2023 PAST SURGICAL HISTORY OF 02/1996 EMB TONSILLECTOMY & ADENOIDECTOMY <AGE 12 T/A (under age 13 years) FAMILY HISTORY Problem Relation Age of Onset Hypertension Mother Arthritis Mother Heart disease Mother Diabetes Father adult onset Emphysema Father Cancer Father lung Psychiatry Maternal Grandmother Ischemic Heart Disease Maternal Grandfather Diabetes Paternal Grandmother Asthma Daughter Allergic Rhinitis Daughter Colon Cancer No Family History Social History Tobacco Use Smoking status: Never Smokeless tobacco: Never Tobacco comments: Father smoked in childhood home. 2 spouses were smokers. Vaping Use Vaping status: Never Used Substance Use Topics Alcohol use: No Drug use: No Past medical history, appointments, medications, allergies reviewed. Pertinent Lab/Diagnostic Studies are reviewed and discussed today Current Outpatient Medications: midodrine (PROAMITINE) [address] (PROTONIX) 40 mg tablet sertraline (ZOLOFT) 50 mg tablet sertraline (ZOLOFT) 100 mg tablet fludrocortisone (FLORINEF) 0.1 mg tablet levothyroxine (SYNTHROID) 75 mcg tablet carbidopa-levodopa (SINEMET 25-100) 25-100 mg per tablet Olopatadine (PATADAY ONCE DAILY RELIEF) 0.2 % drop ondansetron orally disintegrating (ZOFRAN ODT) 4 mg disintegrating tablet docusate sodium (COLACE) 100 mg capsule pravastatin (PRAVACHOL) 20 mg tablet carbidopa-levodopa CR (SINEMET CR) 50-200 mg per tablet LORazepam (ATIVAN) 0.5 mg Cholecalciferol, Vitamin D3, 50 mcg (2,000 unit) cap gabapentin (NEURONTIN) 100 mg capsule Review of Systems CONSTITUTIONAL: No fevers, chills night sweats, unintended weight loss CARDIOVASCULAR: No chest pain, dyspnea, palpitations, orthopnea, PND, ankle edema. PULM: No dyspnea, unexplained cough. GI: No dysphagia/odynophagia, problematic reflux, constipation, diarrhea, changes in stool habits, hematochezia, melena. : No new urinary complaints, including dysuria, gross hematuria or pyuria. NEURO: No new balance problems, peripheral weakness/paresthesias or numbness of concern. Physical Exam BP 92/60 Pulse 60 Resp 16 Wt 55.8 kg (123 lb) BMI 21.79 kg/m General appearance: Well appearing, alert, in no acute distress, well nourished. Skin: Skin color, texture, turgor normal, no suspicious rashes or lesions Head: Normocephalic, no masses, lesions, tenderness or abnormalities Eyes: Anicteric sclera. Pupils are equally round and reactive to light. Extraocular movements are intact. Lungs: Lungs clear to auscultation. No wheezing, rhonchi, rales Heart: RRR without murmur, gallop, or rubs. Extremities: No deformities, edema, skin discoloration, clubbing or cyanosis. Good capillary refill. ASSESSMENT/PLAN: 1. Hyponatremia - ICD9: 276.1, ICD10: E87.1 (primary diagnosis) - BASIC METABOLIC PANEL 2. Hypotension, unspecified hypotension type - ICD9: 458.9, ICD10: I95.9 Currently blood pressure is controlled on midodrine, she can titrate up or down as needed 3. Parkinson's disease with dyskinesia, unspecified whether manifestations fluctuate (HCC) - ICD9: 332.0, ICD10: G20.B1 She can go for her parkinsons exercises , to always be cautious and use a cane 4. Orthostatic hypotension - ICD9: 458.0, ICD10: I95.1 We discussed different type of leggings and tight socks to help her with the compression 5. Weight loss - ICD9: 783.21, ICD10: R63.4 Dense calories and foods to ingest, to eat 3 meals a day and with company Marvel Rizzo MD documented in this encounter [facility] 07-16-2024 Note HNO ID: [id number] Author: KIM MADRIGAL RN Service: ? Author Type: Registered Nurse Type: Progress Notes Filed: 07/16/2024 11:51 Note Text: Transition Care Management (TCM) Initial Outreach PCP Update / Actionable Items Called and spoke with patient and daughter eDbra. Patient doing well at home, at first patient states she is not well but she was referring to her recent stay at the hospital. Mornings are also hard for the patient due to her parkinsons' it takes some time to get herself going. She confirms she is not any worse compared to her hospital stay. Daughter is caring for the patient and staying wither her for the next couple of weeks. Daughter was unaware how many times patient had been falling. She is using her walker at all times. She is encouraging her to take her time when going for sitting to standing. BP was checked - 89/50 which is better then what it was during her hospital admission Daughter has not yet picked up medications but is about to go and do so. COOL MEDICATION CHANGES: Midodrine 5 mg TID - aware this is a flexible dose and was recommended to start taking BID at 9am and and 2pm. If needed can take TID Neurology 07/31/2024 PCP 07/21/2024 - assisted with scheduling this appt N/A - No specialty updates needed Patient Source: In-Network Discharge Initial outreach: TCM discharge report Outreach Summary: Patient discharged from [facility] Discharge date: 07/15/2024 Admitted for: syncope and collapse Readmission Risk: 10 Value-Based Contract: ACO Contact: Contact made with patient: Yes Hi, my name is Kim Madrigal RN and I am calling from the [facility] on behalf of your Primary Care Provider, Marvel Rizzo MD. I understand you were recently in the hospital, so I am calling to check in with you to ensure you are feeling well now that you are home. May I ask you a few questions related to your hospital stay and well-being? Yes Spoke to: Patient and DaughterDebra Validation: Validated the person spoken to is actively involved in the patient's care. The patient was identified by Name and Date of . Symptoms: Are you feeling about the same, better or worse since leaving the hospital? Better Medications: Do you have any questions about taking your medications, including which medications you should be on, or do you need refills on your medications? No Medication Review: Partial mediation review completed, per patient preference daughter confirms medications were discussed fully at discharge. Discharge Instructions: Your Discharge Instructions / After Visit Summary (AVS) are important in guiding you through the recovery process. Do you have any questions related to your discharge instructions? No Home Care: Were you discharged with home care? No Equipment: Do you have all the necessary equipment and supplies needed at your home? Yes The patient verbalizes understanding the use of the equipment and supplies Social: We would like to make sure you have what you need so that your basics needs are met - including your personal safety, food, housing and medications. Would you like to speak with a social work steaming cabinet tender to help give you support for any of these needs? No It can be normal to feel anxious or down during a time like this. Would you like to talk to a mental health professional about how you have been feeling? Has parkinsons' and established with neurology Action Taken: No needs verbalized. No action required. Follow-Up Appointment: [Appointment / TCM Follow-up within 14 days] I would like to help you schedule a hospital follow-up virtual or telephone visit with your PCP. This is a great way for you to connect with your provider to ensure you have safely transitioned home. If you are agreeable, I will send your request to a straw hat washer operator who will contact and assist you with that appointment. This will give you an opportunity to ask any questions or address any concerns you may have with your PCP. Inform the patient that if they have any questions or concerns prior to that appointment, to call their PCP's office right away. Appointment Action: TCM Nurse assisted patient with scheduling follow up appointment. [NOTES to review before scheduling appointments. Ensure that you are scheduling the appropriate length of visit. Appointment scheduled must be for TCM follow up. Do not add the TCM visit type to another scheduled appointment. If patient has a previously scheduled follow-up appointment, route to [facility] for updated appointment type or to schedule Hospital Discharge follow up appointment.] Hospital Discharge follow-up appointment date and time: 07/21 Education Patient and family educated on issues/questions related to reason for admission, transition of care topics, and follow-up needed upon discharge. Targets addressed / completed during outreach: Contact sima (more content not included)... [facility] 07-16-2024 History of Present illness Narrative Transition Care Management (TCM) Initial Outreach PCP Update / Actionable Items Called and spoke with patient and daughter Debra. Patient doing well at home, at first patient states she is not well but she was referring to her recent stay at the hospital. Mornings are also hard for the patient due to her parkinsons' it takes some time to get herself going. She confirms she is not any worse compared to her hospital stay. Daughter is caring for the patient and staying wither her for the next couple of weeks. Daughter was unaware how many times patient had been falling. She is using her walker at all times. She is encouraging her to take her time when going for sitting to standing. BP was checked - 89/50 which is better then what it was during her hospital admission Daughter has not yet picked up medications but is about to go and do so. COOL MEDICATION CHANGES: Midodrine 5 mg TID - aware this is a flexible dose and was recommended to start taking BID at 9am and and 2pm. If needed can take TID Neurology 07/31/2024 PCP 07/21/2024 - assisted with scheduling this appt N/A - No specialty updates needed Patient Source: In-Network Discharge Initial outreach: TCM discharge report Outreach Summary: Patient discharged from [facility] Discharge date: 07/15/2024 Admitted for: syncope and collapse Readmission Risk: 10 Value-Based Contract: ACO Contact: Contact made with patient: Yes Hi, my name is Kim Madrigal RN and I am calling from the [facility] on behalf of your Primary Care Provider, Marvel Rizzo MD. I understand you were recently in the hospital, so I am calling to check in with you to ensure you are feeling well now that you are home. May I ask you a few questions related to your hospital stay and well-being? Yes Spoke to: Patient and Daughter, Debra Validation: Validated the person spoken to is actively involved in the patient's care. The patient was identified by Name and Date of . Symptoms: Are you feeling about the same, better or worse since leaving the hospital? Better Medications: Do you have any questions about taking your medications, including which medications you should be on, or do you need refills on your medications? No Medication Review: Partial mediation review completed, per patient preference daughter confirms medications were discussed fully at discharge. Discharge Instructions: Your Discharge Instructions / After Visit Summary (AVS) are important in guiding you through the recovery process. Do you have any questions related to your discharge instructions? No Home Care: Were you discharged with home care? No Equipment: Do you have all the necessary equipment and supplies needed at your home? Yes The patient verbalizes understanding the use of the equipment and supplies Social: We would like to make sure you have what you need so that your basics needs are met - including your personal safety, food, housing and medications. Would you like to speak with a social work steaming cabinet tender to help give you support for any of these needs? No It can be normal to feel anxious or down during a time like this. Would you like to talk to a mental health professional about how you have been feeling? Has parkinsons' and established with neurology Action Taken: No needs verbalized. No action required. Follow-Up Appointment: [Appointment / TCM Follow-up within 14 days] I would like to help you schedule a hospital follow-up virtual or telephone visit with your PCP. This is a great way for you to connect with your provider to ensure you have safely transitioned home. If you are agreeable, I will send your request to a straw hat washer operator who will contact and assist you with that appointment. This will give you an opportunity to ask any questions or address any concerns you may have with your PCP. Inform the patient that if they have any questions or concerns prior to that appointment, to call their PCP's office right away. Appointment Action: TCM Nurse assisted patient with scheduling follow up appointment. [NOTES to review before scheduling appointments. Ensure that you are scheduling the appropriate length of visit. Appointment scheduled must be for TCM follow up. Do not add the TCM visit type to another scheduled appointment. If patient has a previously scheduled follow-up appointment, route to [facility] for updated appointment type or to schedule Hospital Discharge follow up appointment.] Hospital Discharge follow-up appointment date and time: 07/21 Education Patient and family educated on issues/questions related to reason for admission, transition of care topics, and follow-up needed upon discharge. Targets addressed / completed during outreach: Contact patient within two (2) business days Outreach Outcome: Enrolled in TCM Care Management partners utilized: N/A Kim Madrigal RN July 16, 2024 11:49 AM documented in this encounter [facility] 07-16-2024 Note Patient Outreach ([facility]) LOU OLIVER ([id number]) 1945 F Date Time Provider Department 07/16/24 KIM MADRIGAL During your visit today, we recorded the following information about you: Kim Madrigal RN 07/16/2024 11:51 AM Signed Transition Care Management (TCM) Initial Outreach PCP Update / Actionable Items Called and spoke with patient and daughter Debra. Patient doing well at home, at first patient states she is not well but she was referring to her recent stay at the hospital. Mornings are also hard for the patient due to her parkinsons' it takes some time to get herself going. She confirms she is not any worse compared to her hospital stay. Daughter is caring for the patient and staying wither her for the next couple of weeks. Daughter was unaware how many times patient had been falling. She is using her walker at all times. She is encouraging her to take her time when going for sitting to standing. BP was checked - 89/50 which is better then what it was during her hospital admission Daughter has not yet picked up medications but is about to go and do so. COOL MEDICATION CHANGES: Midodrine 5 mg TID - aware this is a flexible dose and was recommended to start taking BID at 9am and and 2pm. If needed can take TID Neurology 07/31/2024 PCP 07/21/2024 - assisted with scheduling this appt N/A - No specialty updates needed Patient Source: In-Network Discharge Initial outreach: TCM discharge report Outreach Summary: Patient discharged from [facility] Discharge date: 07/15/2024 Admitted for: syncope and collapse Readmission Risk: 10 Value-Based Contract: ACO Contact: Contact made with patient: Yes Hi, my name is Kim Madrigal RN and I am calling from the [facility] on behalf of your Primary Care Provider, Marvel Rizzo MD. I understand you were recently in the hospital, so I am calling to check in with you to ensure you are feeling well now that you are home. May I ask you a few questions related to your hospital stay and well-being? Yes Spoke to: Patient and Daughter, Debra Validation: Validated the person spoken to is actively involved in the patient's care. The patient was identified by Name and Date of . Symptoms: Are you feeling about the same, better or worse since leaving the hospital? Better Medications: Do you have any questions about taking your medications, including which medications you should be on, or do you need refills on your medications? No Medication Review: Partial mediation review completed, per patient preference daughter confirms medications were discussed fully at discharge. Discharge Instructions: Your Discharge Instructions / After Visit Summary (AVS) are important in guiding you through the recovery process. Do you have any questions related to your discharge instructions? No Home Care: Were you discharged with home care? No Equipment: Do you have all the necessary equipment and supplies needed at your home? Yes The patient verbalizes understanding the use of the equipment and supplies Social: We would like to make sure you have what you need so that your basics needs are met - including your personal safety, food, housing and medications. Would you like to speak with a social work steaming cabinet tender to help give you support for any of these needs? No It can be normal to feel anxious or down during a time like this. Would you like to talk to a mental health professional about how you have been feeling? Has parkinsons' and established with neurology Action Taken: No needs verbalized. No action required. Follow-Up Appointment: [Appointment / TCM Follow-up within 14 days] I would like to help you schedule a hospital follow-up virtual or telephone visit with your PCP. This is a great way for you to connect with your provider to ensure you have safely transitioned home. If you are agreeable, I will send your request to a straw hat washer operator who will contact and assist you with that appointment. This will give you an opportunity to ask any questions or address any concerns you may have with your PCP. Inform the patient that if they have any questions or concerns prior to that appointment, to call their PCP's office right away. Appointment Action: TCM Nurse assisted patient with scheduling follow up appointment. [NOTES to review before scheduling appointments. Ensure that you are scheduling the appropriate length of visit. Appointment scheduled must be for TCM follow up. Do not add the TCM visit type to another scheduled appointment. If patient has a previously scheduled follow-up appointment, route to [facility] for updated appointment type or to schedule Hospital Discharge follow up appointment.] Hospital Discharge follow-up appointment date and time: 07/21 Education Patient and family educa (more content not included)... [facility] 07-15-2024 Telephone encounter Note Patient's daughter presented to office. She has scheduled Patient for 07/31/2024 at 9:30 AM. Arlene Russo [facility] 07-15-2024 Miscellaneous Notes Patient's daughter presented to office. She has scheduled Patient for 07/31/2024 at 9:30 AM. Arlene Russo Patient still admitted. Will contact Patient once discharged. Arlene Russo Patient will need contacted to reschedule appt on 07/14/2024 (Patient admitted to ED). Arlene Russo documented in this encounter [facility] 07-15-2024 Telephone encounter Note Patient still admitted. Will contact Patient once discharged. Arlene Russo [facility] 07-14-2024 Telephone encounter Note Patient will need contacted to reschedule appt on 07/14/2024 (Patient admitted to ED). Arlene Russo [facility] 07-14-2024 Telephone encounter Note Patient fell in the parking lot hitting the back of her head. 911 was called she was taken to [place] ED for Further evaluation. No open areas noted Ice pack applied. [facility] Work Phone: 07-14-2024 Telephone encounter Note Patient fell in parking lot, transported to [place] ED via squad. [facility] 07-14-2024 Miscellaneous Notes Patient fell in the parking lot hitting the back of her head. 911 was called she was taken to [place] ED for Further evaluation. No open areas noted Ice pack applied. documented in this encounter [facility] 07-14-2024 Miscellaneous Notes Patient fell in parking lot, transported to [place] ED via squad. Checked konstantin mihaela dawood patient not present at time of visit documented in this encounter [facility] 07-14-2024 Telephone encounter Note Checked konstantin chairez puneetramesh patient not present at time of visit [facility] 07-02-2024 Note HNO ID: [id number] Author: ANNE-MARIE GHOTRA LPN Service: ? Author Type: LICENSED NURSE Type: Progress Notes Filed: 07/02/2024 14:20 Note Text: Review of Systems Constitutional: Positive for activity change and unexpected weight change. Negative for chills and fever. Gastrointestinal: Negative for bowel retention or incontinence Genitourinary: Negative for difficulty urinating. Negative for bladder retention or incontinence Musculoskeletal: Positive for arthralgias, back pain, gait problem, joint swelling, neck pain and neck stiffness. Negative for myalgias. Neurological: Positive for weakness and numbness. Negative for headaches. Psychiatric/Behavioral: Positive for dysphoric mood. Negative for sleep disturbance and suicidal ideas. The patient is nervous/anxious. [facility] 07-02-2024 History of Present illness Narrative Review of Systems Constitutional: Positive for activity change and unexpected weight change. Negative for chills and fever. Gastrointestinal: Negative for bowel retention or incontinence Genitourinary: Negative for difficulty urinating. Negative for bladder retention or incontinence Musculoskeletal: Positive for arthralgias, back pain, gait problem, joint swelling, neck pain and neck stiffness. Negative for myalgias. Neurological: Positive for weakness and numbness. Negative for headaches. Psychiatric/Behavioral: Positive for dysphoric mood. Negative for sleep disturbance and suicidal ideas. The patient is nervous/anxious. [facility] Patient name: Lou Oliver Patient Date of : 1945 Today's Date: 07/02/2024 Provider performing procedure: Jak Diaz MD Procedure: bilateral cervical paraspinals, upper trapezius Trigger Point Injection(s) Injectate: A total of 5cc of 0.25% Bupivacaine Diagnosis (Indication for procedure): (M79.18) Myofascial pain (primary encounter diagnosis) Comments: Repeat TPI (#2 of 3) scheduled on 08/27, #3/3 on 10/08 HPI: Lou Oliver is an 79 year old FEMALE who presents today, in pain, for the procedure noted above. PAST MEDICAL HISTORY No date: Diverticulosis of colon (without mention of hemorrhage) 04/04/2007: Essential hypertension, benign No date: Mental disorder 04/04/2007: Migraine without aura No date: Parkinson disease (HCC) 04/04/2007: Unspecified hypothyroidism PAST SURGICAL HISTORY : DELIVERY ONLY Comment: , low cervical x2 1994: COLONOSCOPY FLX DX W/COLLJ SPEC WHEN PFRMD Comment: Colonoscopy 04/07/2012: COLONOSCOPY FLX DX W/COLLJ SPEC WHEN PFRMD Comment: Colonoscopy 06/17/2019: COLONOSCOPY FLX DX W/COLLJ SPEC WHEN PFRMD Comment: Colonoscopy 09/1982: DILATION & CURETTAGE DX&/THER NONOBSTETRIC Comment: Dilation & curettage 11/29/2023: EGD W/O [facility] SPEC VARICIES INJ 02/1996: PAST SURGICAL HISTORY OF Comment: EMB No date: TONSILLECTOMY & ADENOIDECTOMY <AGE 13 Comment: T/A (under age 13 years) FAMILY HISTORY Problem Relation Age of Onset Hypertension Mother Arthritis Mother Heart disease Mother Diabetes Father adult onset Emphysema Father Cancer Father lung Psychiatry Maternal Grandmother Ischemic Heart Disease Maternal Grandfather Diabetes Paternal Grandmother Asthma Daughter Allergic Rhinitis Daughter Colon Cancer No Family History Social History Tobacco Use Smoking status: Never Smokeless tobacco: Never Tobacco comments: Father smoked in childhood home. 2 spouses were smokers. Vaping Use Vaping status: Never Used Substance Use Topics Alcohol use: No Drug use: No Current Outpatient Medications on File Prior to Visit Medication Sig nitrofurantoin monohydrate and macrocrystal (MACROBID) 100 mg capsule Take 1 capsule by mouth two times a day for 5 days. pravastatin (PRAVACHOL) 20 mg tablet Take 1 tablet by mouth daily at bedtime. lidocaine (LIDODERM) 5 % Apply 2 Patches as directed once daily. Remove patch after [address] (PROTONIX) 40 mg tablet Take 1 tablet by mouth once daily. On empty stomach at least 30 minutes before eating. carbidopa-levodopa CR (SINEMET CR) 50-200 mg per tablet TAKE 1 TABLET BY MOUTH in Morning and before bedtime as instructed. carbidopa-levodopa (SINEMET) 25-100 mg per tablet Take 1 tab at 7AM, 1.5 to 2 tabs at 11AM, 1.5 tabs at 3PM and 1 tab at 7PM. (Patient taking differently: Take 1 tab at 7AM, 2 tabs at 11AM, 1.5 tabs at 3PM and 1 tab at 7PM.) gabapentin (NEURONTIN) 100 mg capsule Take 1 capsule by mouth two times a day for 180 days. fludrocortisone (FLORINEF) 0.1 mg tablet take 1 tablet by mouth every day ondansetron orally disintegrating (ZOFRAN ODT) 4 mg disintegrating tablet Take 1 tablet by mouth every 6 hours as needed for nausea/vomiting. LORazepam (ATIVAN) 0.5 mg Take by mouth. levothyroxine (SYNTHROID) 75 mcg tablet Take 1 tablet by mouth once daily. Take on empty stomach. For Thyroid sertraline (ZOLOFT) 100 mg tablet Take 1 tablet by mouth once daily. Cholecalciferol, Vitamin D3, 50 mcg (2,000 unit) cap Take 2,000 Units by mouth once daily. diclofenac sodium (VOLTAREN) 1 % topical gel APPLY 2 GRAMS TO AFFECTED AREA 4 TIMES A DAY docusate sodium (COLACE ORAL) Take by mouth as needed. No current facility-administered medications on file prior to visit. ALLERGIES Allergen Reactions Sulfa (Sulfonamide * Hives Data Reviewed: Current Medications, Past Medical History, Past Surgical History, Family History, Social History and Review of Systems: On Today's date, noted in the attribution, I have confirmed and edited as necessary, the PFSH and ROS obtained by others. Objective Exam: Vitals: As per nursing documentation Constitutional: Normal Appearance, Oriented to Time, Place and Person Head: No lacerations, no external signs of trauma Eyes: Conjunctiva clear. No discharge from the eyes Cardiovascular: Appears well-perfused Pulmonary: Non-labored respirations Abdominal: Non-distended Skin: No visible rashes or ecchymosis Psychiatric: Mood appropriate for given condition Neurological: Gross movements are limited by pain, but otherwise unremarkable MSK: trigger points to palpation of the muscle groups listed above [facility] protocol documentation / Pre-Procedure Checklist: Consent: Obtained verbally prior to procedure I had a nice discussion with the patient today about their current pain and the pathology that could be causing it We discussed different treatment options, including risks, benefits and alternatives. We agreed to proceed as previously discussed, or the plan was modified in accordance with the comments noted above Patient identifiers, including name and date of , were confirmed After discussing risks and benefits, reviewing patient's allergy list to ensure all medications being given are tolerated to the best of our known information, the in-office procedure of Trigger Point Injections was performed at the locations noted above. The region(s) noted above were prepped using sterile technique. A 1.5 inch 25 gauge needle was used to multiple areas of muscle spasm using dry needle technique. The medication noted above was injected in equal parts at 8 total site(s) within the region(s) mentioned above. All points elicited local twitch responses which softened after the injection. After careful removal of the needle, there was minimal bleeding. The injection site was covered with appropriate sterile dressing where needed. The patient was noted to have tolerated the procedure well and was discharged after an appropriate period of post-procedure observation. The patient was instructed to contact us if there were any complications. The patient was advised to follow-up with the requesting physician within one to two weeks or as per their requested follow-up plan. Post procedure visit summary with written instructions was offered to the patient. Jak Diaz MD Pain Management [facility] documented in this encounter [facility] 07-02-2024 Note HNO ID: [id number] Author: JAK DIAZ MD Service: ? Author Type: Physician Type: Progress Notes Filed: 07/02/2024 14:20 Note Text: [facility] Patient name: Lou Oliver Patient Date of : 1945 Today's Date: 07/02/2024 Provider performing procedure: Jak Diaz MD Procedure: bilateral cervical paraspinals, upper trapezius Trigger Point Injection(s) Injectate: A total of 5cc of 0.25% Bupivacaine Diagnosis (Indication for procedure): (M79.18) Myofascial pain (primary encounter diagnosis) Comments: Repeat TPI (#2 of 3) scheduled on 08/27, #3/3 on 10/08 HPI: Lou Oliver is an 79 year old FEMALE who presents today, in pain, for the procedure noted above. PAST MEDICAL HISTORY No date: Diverticulosis of colon (without mention of hemorrhage) 04/04/2007: Essential hypertension, benign No date: Mental disorder 04/04/2007: Migraine without aura No date: Parkinson disease (HCC) 04/04/2007: Unspecified hypothyroidism PAST SURGICAL HISTORY : DELIVERY ONLY Comment: , low cervical x2 1994: COLONOSCOPY FLX DX W/COLLJ SPEC WHEN PFRMD Comment: Colonoscopy 04/07/2012: COLONOSCOPY FLX DX W/COLLJ SPEC WHEN PFRMD Comment: Colonoscopy 06/17/2019: COLONOSCOPY FLX DX W/COLLJ SPEC WHEN PFRMD Comment: Colonoscopy 09/1982: DILATION AND CURETTAGE DXAND/THER NONOBSTETRIC Comment: Dilation AND curettage 11/29/2023: EGD W/O [facility] SPEC VARICIES INJ 02/1996: PAST SURGICAL HISTORY OF Comment: EMB No date: TONSILLECTOMY AND ADENOIDECTOMY Comment: T/A (under age 13 years) FAMILY HISTORY Problem Relation Age of Onset Hypertension Mother Arthritis Mother Heart disease Mother Diabetes Father adult onset Emphysema Father Cancer Father lung Psychiatry Maternal Grandmother Ischemic Heart Disease Maternal Grandfather Diabetes Paternal Grandmother Asthma Daughter Allergic Rhinitis Daughter Colon Cancer No Family History Social History Tobacco Use Smoking status: Never Smokeless tobacco: Never Tobacco comments: Father smoked in childhood home. 2 spouses were smokers. Vaping Use Vaping status: Never Used Substance Use Topics Alcohol use: No Drug use: No Current Outpatient Medications on File Prior to Visit Medication Sig nitrofurantoin monohydrate and macrocrystal (MACROBID) 100 mg capsule Take 1 capsule by mouth two times a day for 5 days. pravastatin (PRAVACHOL) 20 mg tablet Take 1 tablet by mouth daily at bedtime. lidocaine (LIDODERM) 5 % Apply 2 Patches as directed once daily. Remove patch after [address] (PROTONIX) 40 mg tablet Take 1 tablet by mouth once daily. On empty stomach at least 30 minutes before eating. carbidopa-levodopa CR (SINEMET CR) 50-200 mg per tablet TAKE 1 TABLET BY MOUTH in Morning and before bedtime as instructed. carbidopa-levodopa (SINEMET) 25-100 mg per tablet Take 1 tab at 7AM, 1.5 to 2 tabs at 11AM, 1.5 tabs at 3PM and 1 tab at 7PM. (Patient taking differently: Take 1 tab at 7AM, 2 tabs at 11AM, 1.5 tabs at 3PM and 1 tab at 7PM.) gabapentin (NEURONTIN) 100 mg capsule Take 1 capsule by mouth two times a day for 180 days. fludrocortisone (FLORINEF) 0.1 mg tablet take 1 tablet by mouth every day ondansetron orally disintegrating (ZOFRAN ODT) 4 mg disintegrating tablet Take 1 tablet by mouth every 6 hours as needed for nausea/vomiting. LORazepam (ATIVAN) 0.5 mg Take by mouth. levothyroxine (SYNTHROID) 75 mcg tablet Take 1 tablet by mouth once daily. Take on empty stomach. For Thyroid sertraline (ZOLOFT) 100 mg tablet Take 1 tablet by mouth once daily. Cholecalciferol, Vitamin D3, 50 mcg (2,000 unit) cap Take 2,000 Units by mouth once daily. diclofenac sodium (VOLTAREN) 1 % topical gel APPLY 2 GRAMS TO AFFECTED AREA 4 TIMES A DAY docusate sodium (COLACE ORAL) Take by mouth as needed. No current facility-administered medications on file prior to visit. ALLERGIES Allergen Reactions Sulfa (Sulfonamide * Hives Data Reviewed: Current Medications, Past Medical History, Past Surgical History, Family History, Social History and Review of Systems: On Today's date, noted in the attribution, I have confirmed and edited as necessary, the PFSH and ROS obtained by others. Objective Exam: Vitals: As per nursing documentation Constitutional: Normal Appearance, Oriented to Time, Place and Person Head: No lacerations, no external signs of trauma Eyes: Conjunctiva clear. No discharge from the eyes Cardiovascular: Appears well-perfused Pulmonary: Non-labored respirations Abdominal: Non-distended Skin: No visible rashes or ecchymosis Psychiatric: Mood appropriate for given condition Neurological: Gross movements are limited by pain, but otherwise unremarkable MSK: trigger points to palpation of the muscle groups listed above [facility] protocol documentation / Pre-Procedure Checklist: Consent: O (more content not included)... [facility] 06-30-2024 Instructions Grace Hunt APRN.CNP - 06/30/2024 4:31 PM EDT Ice and heat as tolerated Activity as tolerated documented in this encounter [facility] 06-30-2024 History of Present illness Narrative VIRTUAL VISIT PROGRESS NOTE This is a virtual visit using Audio Only Visit. It required patient-provider interaction for the medical decision making as documented below. I have communicated my name and active licensure. The patient's identity and physical location were verified at the time of this visit. Either the patient or their legal outside medical sales representative has been informed of the risks and benefits of -- and alternatives to -- treatment through a remote evaluation and consents to proceed with the evaluation remotely. [facility] Today's Date: 06/30/2024 Name: Lou Oliver : 1945 Purpose: Follow-up Patient Evaluation - This is an established patient, returning today for continued evaluation and management of the chief complaint noted below Chief complaint: neck pain Referring Clinician: Marvel Rizzo MD Pertinent Past Medical History: Migraine, Lt. Knee pain, Parkinson disease, Neck pain, Intracranial meningioma, HTN, HLD, Tachycardia, Hypothyroidism, Cervical spondylosis, Anxiety, Pes anserinus bursitis of left knee, Neck muscle weakness, Spinal stenosis of cervical region, Pertinent Past Surgeries: none Medications: Ibuprofen Gel Caps 400mg BID PRN (prefer smaller pills given issues swallowing, but Mobic contraindicated due to Sulfa allergy) Neurontin 100mg BID (Neurology) Lidocaine patches, 2 daily, #60 - using OTC Interventional Procedures: trigger point injection - repeat injection Studies: None Functional Shinto: Advised soft tissue massage Referrals: No additional considerations at present Follow-up: after trigger point injections ([facility]) Depending on response to the above plan, consider: Repeat RFA vs SPRINT Interval History: Overall pain and functional disability since last visit: Better New Complaints since last visit: No She reports that her neck pain overall has been better since the ablation and the trigger point injections. Patient states she felt the trigger point injections really helped with her neck pain. Patient would like to reschedule more trigger point injections. She thought somewhere ordered but they have not been scheduled. Patient continues to say that walking interferes with her neck pain. Stating that she feels like she has a hard time holding up her neck when she is walking due to the pain. Patient feels that the trigger point injections really helped with these issues. Pain Description: Timing: intermittant Character: aching and burning Primary Location: axial neck and upper traps Radiation: none Exacerbating factors: walking and lying flat Relieving factors: ice and heat, C-collar (uses sparingly) Interferes with: physical activity The patient denies difficulty with bowel or bladder control, unintentional weight loss, and fevers, chills, or night sweats. Current Pain Medications: Neuropathics: Gabapentin 100mg BID - for foot tingling/numbness, helps (Neurology) NSAIDS: Ibuprofen Gel Caps 400mg BID PRN (prefer smaller pills given issues swallowing, but Mobic contraindicated due to Sulfa allergy) Muscle Relaxants: Topicals: Voltaren gel, THC cream - helps a little bit, Lidocaine patches, 2 daily, #60 Other Prescription or OTC Pain Medications: Tylenol OTC Opioids (when applicable): No question data found. Tolerating Medication: Yes Medications helping improve ADL's and Self-care: Yes Anti-depressants or Mood-Stabilizers: None Anti-Coagulants: None Therapies Attended (Current or Most Recent): Physical Therapy : March - Jul, 2023 Notable Events During Course of Treatment: 07/04/2023 - Initial HPI (Obtained by Jak Diaz M.D.). Referred by Marvel Rizzo MD, for evaluation & management of neck pain Duration: 10 years Sudden onset? no, Trauma? no Prior Treatments: Medications (See below), Modalities (eg. Heat, Ice), Physical Therapy , Home Exercise Program , and Activity Modification PT - 12 visits (04/09/2023 - 06/11/2023) Worked for years at a [employer], reports she frequently hunched in her job Seen previously (last on ) by an Anesthesia Pain Physician. She had trigger point injections multiple times, without sustained relief. This is her first evaluation by a PM&R Pain Physician. Takes Tylenol OTC, minimal relief Has Parkinson's Treatment History: PAIN PROCEDURES: DATE PROCEDURE IMPROVEMENT 03/19/2024 TPI >50% x 2 months 10/02/2023 RFA, Bilat C4-5 and C5-6 50% (06/11/2024 ) 08/17/2021 TPI 50% relief x 6 weeks MEDICATIONS Taken TO DATE (for the chief complaint(s)): Neuropathics: Neurontin (Gabapentin) NSAIDS: Naprosyn (Naproxen), Mobic (Meloxicam) Muscle Relaxants: Zanaflex (Tizanidine) Topicals: Voltaren (Gel) Other Prescription or OTC Pain Medications: Tylenol (Acetaminophen), Sinemet, Florinef, Ativan, Opioids: None Data Reviewed Today: Allergies: ALLERGIES Allergen Reactions Sulfa (Sulfonamide * Hives Social History Tobacco Use Smoking status: Never Smokeless tobacco: Never Tobacco comments: Father smoked in childhood home. 2 spouses were smokers. Vaping Use Vaping status: Never Used Substance Use Topics Alcohol use: No Drug use: No 06/22/2024 06/27/2024 INTAKE PAIN ASSESSMENT Are you having pain associated with your visit today? No No Compliance: PDMP website checked and validated on 06/30/2024 by Grace Hunt APRN.BUCKET PUSHER All prescriptions have been APPROPRIATELY filled. No suspicious activity was identified. 05/12/2020 06/22/2021 07/04/2023 06/11/2024 AG SPINE COMBINATION Questionnaire GREENLIGHT GREENLIGHT Completed Date 05/12/2020 07/04/2023 Questionnaire Opiod Risk Tool Opiod Risk Tool Opiod Risk Tool Opiod Risk Tool Completed Date 05/12/2020 06/22/2021 07/04/2023 06/11/2024 Comments 1 (All drug screens are appropriate unless indicated otherwise) Risk Assessment: DIANNE-7: 10/22/2023 11/30/2023 03/24/2024 DIANNE - 7 SCORES Score 7 7 8 (0-4) minimal anxiety, (5-9) mild anxiety, (10-14) moderate anxiety, (15-21) severe anxiety PHQ-9: 11/30/2023 03/24/2024 06/04/2024 PHQ-9 Score 8 10 12 (0-4) minimal depression, (5-9) mild depression, (10-14) moderate depression, (15-19) moderately severe depression, (20-27) severe depression Diagnostic Studies: Relevant Imaging: MRI Spine Report MRI CERVICAL SPINE WO IVCON Exam End: 05/10/2020 8:23 AM (Final result) Narrative: * * *Final Report* * * DATE OF EXAM: May 10 2020 8:15AM REMA [id number] - MRI CERVICAL SPINE WO IVCON / PROCEDURE REASON: multiple diagnoses * * * * Physician Interpretation * * * * EXAMINATION: MRI CERVICAL SPINE WO IVCON CLINICAL HISTORY: Spinal stenosis of cervical region - Cervicalgia - Spinal stenosis, spondylolisthesis, torticollis, radiculopathy, trauma - C-spine stenosis, Neck pain, chronic, mechanical TECHNIQUE: Routine cervical spine MR protocol without gadolinium. MQ: [id number] COMPARISON: Cervical spine radiographs 04/06/2020 RESULT: Counting reference: Craniocervical junction. Anatomic Variants: None. Alignment: Straightening of the cervical lordosis with trace grade 1 degenerative spondylolisthesis at C4-5, and minimal retrolisthesis at C5-6. Moderate intervertebral disc space narrowing at C4-5. Craniocervical junction: Craniocervical junction is normal. Cord: Minimal cord abutment at C4-5 due to spondylotic changes, further detailed below. No intramedullary signal abnormality. Bone marrow signal/fracture: Patchy likely reactive marrow edema at the left C3-4 facet joint. No evidence of confluent abnormal marrow replacement or an acute fracture. Small T1/T2 hyperintense lesion suggesting small intraosseous hemangioma within the left T5 pedicle and articular facets. Cervical soft tissues: The paraspinal soft tissues are within normal limits. C2-C3: Shallow disc bulging partially effacing the ventral thecal sac without cord contact. Patent foramina. C3-C4: Small central disc protrusion partially effacing the ventral thecal sac without cord impact. Mild bilateral foraminal stenosis due to uncovertebral and facet hypertrophy. C4-C5: Mild canal stenosis due to shallow disc/osteophyte complex and dorsal ligamentous hypertrophy. No significant cord impact. Patent foramina. C5-C6: Minimal retrolisthesis and disc/osteophyte complex effacing the ventral thecal sac without cord impact. Patent foramina. C6-C7: Canal and foramina are patent. C7-T1: Canal and foramina are patent. No significant canal or foraminal stenosis in the imaged upper thoracic spine to the level of T5-6. Impression: IMPRESSION: Mild cervical spondylosis without high-grade canal or foraminal stenosis. Anatomic Variant: None. Assume 7 cervical vertebrae with counting from the craniocervical junction. Tenant Selector: [facility] Transcribe Date/Time: May 10 2020 8:36A Dictated by : MARIS REMY MD This examination was interpreted and the report reviewed and electronically signed by: MARIS REMY MD on May 10 2020 8:46AM EST X-ray Thoracic and Cervical 03/2023 RESULTS: Counting reference: Craniocervical junction.. Straightening of normal cervical lordosis. Mild amount narrowing C4/C5 moderate to marked narrowing C5/C6 disc spaces. Osteophytes anteriorly at C5-C6 and uncovertebral osteophytes at C5-C6. Less than 2 mm anterior subluxation C4 and C5. Facet degenerative changes throughout the cervical spine with hypertrophic changes at C2-C3 5. The left neural foraminal obliques are over rotated with neuroforaminal narrowing at C3/C4 and C4/C5. Neuroforaminal narrowing at C3/C4 and C4/C5 on the right. Thoracic spine counting reference: The first rib-bearing vertebral bodies considered T1. There are 12 rib-bearing vertebral bodies. Proximally 73 degree kyphosis centered at T6/T7. Vertebral bodies and pedicles are intact. Degenerative disc disease from T1/T2 13th T7/T8. 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 Electrodiagnostic Study (EMG): None Recent Labs: Creatinine Date Value Ref Range Status 11/11/2023 0.66 0.58 - 0.96 mg/dL Final No results found for: EGFR No results found for: PCGLUCOSE Post-RFA MOUNIKA (04/30/2024) Pain level: 2/10 (on good days) Pain Intensity 0 Personal Care (Washing/Dressing) 0 - I can look after myself normally without causing extra pain Lifting 2 - Pain prevents me from lifting heavy weights off the floor, but I can manage if conveniently positioned (e.g. on a table) Walking 2 Sitting 2 Standing 2 Sleeping 0 - Pain does not prevent me from sleeping well Sex Life 0 - My sex life is normal and causes no pain Social Life 2 Traveling 3 Total Score 13 Interpretation 0-20% - mild disability Current Medications, Past Medical History, Past Surgical History, Family History, Social History and Review of Systems: On today's date, noted above, I have confirmed and edited as necessary, the PFSH and ROS obtained by others. Physical Exam: There were no vitals filed for this visit. REVIEW OF SYSTEMS: GENERAL: feeling well without fatigue, no recent change in weight HEENT: denies [place], change in hearing or vision, no other ENT complaints NECK: reports pain in neck RESPIRATORY: no cough, no wheezing or shortness of breath CARDIOVASCULAR: no chest pain, no palpitations MUSCULOSKELETAL: denies any painful or swollen joints, no muscle aches SKIN: no rash PSYCH: denies depressed or anxious mood, sleep is normal NEURO: no numbness or paresthesias and no weakness of the extremities PHYSICAL EXAMINATION: Audio only due to technical difficulties. IMPRESSION: 79 year old female presents with complaint(s) of axial neck pain, facet-mediated, myofascial overlay. Patient was ordered trigger point injections have not been scheduled yet we will have the staff call to schedule these injections. Diagnoses: (M79.18) Myofascial pain (primary encounter diagnosis) (M47.812) Cervical spondylosis without myelopathy (G20.B1) Parkinson's disease with dyskinesia, unspecified whether manifestations fluctuate (HCC) PLAN: Lou Oliver would benefit from the following to reach personal goals for decreasing pain, improving function and work participation, and/or improving quality of life: Medications: Ibuprofen Gel Caps 400mg BID PRN (prefer smaller pills given issues swallowing, but Mobic contraindicated due to Sulfa allergy) Neurontin 100mg BID (Neurology) Lidocaine patches, 2 daily, #60 - using OTC Interventional Procedures: trigger point injection - repeat injection Already ordered in with orders. Studies: None Functional Shinto: Advised soft tissue massage Referrals: No additional considerations at present Follow-up: after trigger point injections (EDWIN) Depending on response to the above plan, consider: Repeat RFA vs SPRINT Compliance and Clinic Policies Reviewed and/or Discussed Today: None Attribution: In addition to reviewing the information noted above, some elements copied from my most recent clinical note(s), including the physical exam (completed in entirety today), and the impression and plan sections, have been updated where appropriate. All reflect current medical decision making from today's date. Grace Hunt APRN.CNP Pain Management [facility] documented in this encounter [facility] 06-30-2024 Note HNO ID: [id number] Author: GRACE HUNT APRN.CNP Service: ? Author Type: Nurse Practitioner Type: Progress Notes Filed: 06/30/2024 16:32 Note Text: VIRTUAL VISIT PROGRESS NOTE This is a virtual visit using Audio Only Visit. It required patient-provider interaction for the medical decision making as documented below. I have communicated my name and active licensure. The patient's identity and physical location were verified at the time of this visit. Either the patient or their legal outside medical sales representative has been informed of the risks and benefits of -- and alternatives to -- treatment through a remote evaluation and consents to proceed with the evaluation remotely. [facility] Today's Date: 06/30/2024 Name: Lou Oliver : 1945 Purpose: Follow-up Patient Evaluation - This is an established patient, returning today for continued evaluation and management of the chief complaint noted below Chief complaint: neck pain Referring Clinician: Marvel Rizzo MD Pertinent Past Medical History: Migraine, Lt. Knee pain, Parkinson disease, Neck pain, Intracranial meningioma, HTN, HLD, Tachycardia, Hypothyroidism, Cervical spondylosis, Anxiety, Pes anserinus bursitis of left knee, Neck muscle weakness, Spinal stenosis of cervical region, Pertinent Past Surgeries: none Medications: Ibuprofen Gel Caps 400mg BID PRN (prefer smaller pills given issues swallowing, but Mobic contraindicated due to Sulfa allergy) Neurontin 100mg BID (Neurology) Lidocaine patches, 2 daily, #60 - using OTC Interventional Procedures: trigger point injection - repeat injection Studies: None Functional Shinto: Advised soft tissue massage Referrals: No additional considerations at present Follow-up: after trigger point injections (EDWIN) Depending on response to the above plan, consider: Repeat RFA vs SPRINT Interval History: Overall pain and functional disability since last visit: Better New Complaints since last visit: No She reports that her neck pain overall has been better since the ablation and the trigger point injections. Patient states she felt the trigger point injections really helped with her neck pain. Patient would like to reschedule more trigger point injections. She thought somewhere ordered but they have not been scheduled. Patient continues to say that walking interferes with her neck pain. Stating that she feels like she has a hard time holding up her neck when she is walking due to the pain. Patient feels that the trigger point injections really helped with these issues. Pain Description: Timing: intermittant Character: aching and burning Primary Location: axial neck and upper traps Radiation: none Exacerbating factors: walking and lying flat Relieving factors: ice and heat, C-collar (uses sparingly) Interferes with: physical activity The patient denies difficulty with bowel or bladder control, unintentional weight loss, and fevers, chills, or night sweats. Current Pain Medications: Neuropathics: Gabapentin 100mg BID - for foot tingling/numbness, helps (Neurology) NSAIDS: Ibuprofen Gel Caps 400mg BID PRN (prefer smaller pills given issues swallowing, but Mobic contraindicated due to Sulfa allergy) Muscle Relaxants: Topicals: Voltaren gel, THC cream - helps a little bit, Lidocaine patches, 2 daily, #60 Other Prescription or OTC Pain Medications: Tylenol OTC Opioids (when applicable): No question data found. Tolerating Medication: Yes Medications helping improve ADL's and Self-care: Yes Anti-depressants or Mood-Stabilizers: None Anti-Coagulants: None Therapies Attended (Current or Most Recent): Physical Therapy : March - Jul, 2023 Notable Events During Course of Treatment: 07/04/2023 - Initial HPI (Obtained by Jak Diaz M.D.). Referred by Marvel Rizzo MD, for evaluation AND management of neck pain Duration: 10 years Sudden onset? no, Trauma? no Prior Treatments: Medications (See below), Modalities (eg. Heat, Ice), Physical Therapy , Home Exercise Program , and Activity Modification PT - 12 visits (04/09/2023 - 06/11/2023) Worked for years at a [employer], reports she frequently hunched in her job Seen previously (last on ) by an Anesthesia Pain Physician. She had trigger point injections multiple times, without sustained relief. This is her [facility]. Takes Tylenol OTC, minimal relief Has Parkinson's Treatment History: PAIN PROCEDURES: DATE PROCEDURE IMPROVEMENT 03/19/2024 TPI >50% x 2 months 10/02/2023 RFA, Bilat C4-5 and C5-6 50% (06/11/2024 ) 08/17/2021 TPI 50% relief x 6 weeks MED (more content not included)... [facility] 06-25-2024 History of Present illness Narrative VIRTUAL VISIT FOLLOW UP I have communicated my name and active licensure. The patient's identity and physical location were verified at the time of this visit. Either the patient or their legal outside medical sales representative has been informed of the risks and benefits of -- and alternatives to -- treatment through a remote evaluation and consents to proceed with the evaluation remotely. I had a virtual visit with Ms. Oliver today for follow up of GERD, Schatzki's, constipation. PMHx positive for Parkinson's UPDATED HISTORY: On Protonix 40 mg daily, Zofran PRN S/P EGD w/ dilation 11/2023 with good improvement. Taking all pills with applesauce to help her swallow With Colace BID she had increased bloating so reduced to once daily. Bms are 1-2 per day, formed consistency, no blood. Denies abd pain, emesis, weight loss EGD 11/2023 Impression: - Tortuous esophagus. - Z-line regular, 39 cm from the incisors. - Non-obstructing and mild Schatzki ring. Dilated. - Normal stomach. Biopsied. - Normal examined duodenum. FINAL DIAGNOSIS Stomach, biopsies: - Minimal chronic gastritis. Negative for morphologic features of Helicobacter pylori on routine staining. Colon 2018 Impression: - Diverticulosis in the sigmoid colon and in the transverse colon. - Non-bleeding external and internal hemorrhoids. - No specimens collected. Cookie swallow 08/2023 Impression: 1. No evidence of aspiration 2. There appears to be marked narrowing of the distal esophagus or gastroesophageal junction. Formal esophagram recommended 3. See Speech and Hearing therapist report for further evaluation OV 03/2024 Accompanied by daughter Lou Oliver is a 78 year old female PMHx positive for Parkinson's here today for Recheck (Dysphagia- pt states she is doing a little better ). Seen previously for dysphagia. On Protonix 40 mg daily. S/P EGD w/ dilation 11/2023 with good improvement. Includes that her acid reflux has reduced. Some residual nausea, attributes this to her dopamine. Includes she only gets returning acid reflux when she is not eating. Zofran PRN helps her to eat. Weight loss of 3 lbs since last OV. Bms are persistently alternating between constipated/diarrhea, no blood. States she thinks is related to her IBS. Only taking Colace once daily. PAST MEDICAL HISTORY No date: Diverticulosis of colon (without mention of hemorrhage) 04/04/2007: Essential hypertension, benign No date: Mental disorder 04/04/2007: Migraine without aura No date: Parkinson disease (HCC) 04/04/2007: Unspecified hypothyroidism PAST SURGICAL HISTORY : DELIVERY ONLY Comment: , low cervical x2 1994: COLONOSCOPY FLX DX W/COLLJ SPEC WHEN PFRMD Comment: Colonoscopy 04/07/2012: COLONOSCOPY FLX DX W/COLLJ SPEC WHEN PFRMD Comment: Colonoscopy 06/17/2019: COLONOSCOPY FLX DX W/COLLJ SPEC WHEN PFRMD Comment: Colonoscopy 09/1982: DILATION & CURETTAGE DX&/THER NONOBSTETRIC Comment: Dilation & curettage 11/29/2023: EGD W/O [facility] SPEC VARICIES INJ 02/1996: PAST SURGICAL HISTORY OF Comment: EMB No date: TONSILLECTOMY & ADENOIDECTOMY <AGE 13 Comment: T/A (under age 13 years) FAMILY HISTORY Problem Relation Age of Onset Hypertension Mother Arthritis Mother Heart disease Mother Diabetes Father adult onset Emphysema Father Cancer Father lung Psychiatry Maternal Grandmother Ischemic Heart Disease Maternal Grandfather Diabetes Paternal Grandmother Asthma Daughter Allergic Rhinitis Daughter Colon Cancer No Family History Social History Tobacco Use Smoking status: Never Smokeless tobacco: Never Tobacco comments: Father smoked in childhood home. 2 spouses were smokers. Vaping Use Vaping status: Never Used Substance Use Topics Alcohol use: No Drug use: No Current Outpatient Medications Medication Sig Dispense Refill sertraline (ZOLOFT) 50 mg tablet Take 1 tablet by mouth once daily. Take a total of 150 mgs daily. 30 tablet 5 sertraline (ZOLOFT) 100 mg tablet Take 1 tablet by mouth once daily. 90 tablet 3 fludrocortisone (FLORINEF) 0.1 mg tablet Take 1 tablet by mouth once daily. 90 tablet 3 levothyroxine (SYNTHROID) 75 mcg tablet Take 1 tablet by mouth once daily. Take on empty stomach. For Thyroid 90 tablet 3 carbidopa-levodopa (SINEMET 25-100) 25-100 mg per tablet TAKE 1 TAB AT 7AM, 1.5 TO 2 TABS AT 11AM, 1.5 TABS AT 3PM AND 1 TAB AT 7PM. 495 tablet 1 triamcinolone acetonide (KENALOG) 0.1 % cream Apply 1 application to affected area three times a day. Apply sparingly to area for rash/itching. 30 g 0 Olopatadine (PATADAY ONCE DAILY RELIEF) 0.2 % drop Use 1 Drop in both eyes once daily. 5 mL 0 ondansetron orally disintegrating (ZOFRAN ODT) 4 mg disintegrating tablet Take 1 tablet by mouth every 8 hours as needed for nausea/vomiting. 30 tablet 2 docusate sodium (COLACE) 100 mg capsule Take 1 capsule by mouth two times a day. 180 capsule 2 pravastatin (PRAVACHOL) 20 mg tablet Take 1 tablet by mouth daily at bedtime. [address] (PROTONIX) 40 mg tablet Take 1 tablet by mouth once daily. On empty stomach at least 30 minutes before eating. 90 tablet 2 carbidopa-levodopa CR (SINEMET CR) 50-200 mg per tablet TAKE 1 TABLET BY MOUTH in Morning and before bedtime as instructed. 180 tablet 3 gabapentin (NEURONTIN) 100 mg capsule Take 1 capsule by mouth two times a day for 180 days. 180 capsule 1 LORazepam (ATIVAN) 0.5 mg Take 0.5 mg by mouth as needed. Cholecalciferol, Vitamin D3, 50 mcg (2,000 unit) cap Take 2,000 Units by mouth once daily. diclofenac sodium (VOLTAREN) 1 % topical gel APPLY 2 GRAMS TO AFFECTED AREA 4 TIMES A DAY 200 g 2 No current facility-administered medications for this visit. ALLERGIES Allergen Reactions Sulfa (Sulfonamide * Hives REVIEW OF SYSTEMS: PAIN ASSESSMENT: Negative for pain, history of chronic pain, or current treatment for a chronic pain condition. GENERAL: No weight loss, malaise or fevers RESPIRATORY: Negative for cough, hemoptysis, wheezing, COPD, dyspnea or shortness of breath CARDIOVASCULAR: Negative for chest pain, leg swelling, hypertension, CHF or palpitations GI: See HPI : No history of dysuria, frequency or incontinence BEAN SNIPPER: Negative for abnormal vaginal bleeding, abnormal vaginal discharge PHYSICAL FINDINGS OF NOTE: General - Normal, healthy, cooperative, in no acute distress Able to interact verbally by video conference Psych - ORIENTATION: normal to time place, person and situation Mood/Affect: AFFECT AND MOOD: Normal Head/Neuro - Normal size and shape Facial appearance normal Pulmonary - respiratory effort normal Cardiovascular - patient describes extremities normal, warm, no cyanosis,no clubbing, and no edema Abdominal - Not performed Skin - abnormal lesions not visualized Motor - patient seen sitting with Normal appearing strength and coordination Anorectal exam - Not Performed Assessment/Plan (K21.00) Gastroesophageal reflux disease with esophagitis without hemorrhage (primary encounter diagnosis) (K59.09) Other constipation 1. Gastroesophageal reflux disease with esophagitis without hemorrhage - Continue Protonix 40 mg daily, working very well to control dysphagia - Informed risk/benefit with long-term PPI usage, pt comfortable with staying on PPI to avoid risk of returning dysphagia, uncontrolled GERD - Notes that she has identified her Sinemet gives her nausea, will take Zofran PRN with some relief. Encouraged continued follow up with her Neuro to address 2. Other constipation - Taking Colace daily with good relief Follow up in office 12 months/PRN. Recommended to please call office/go to ER if fever, chills, chest pain, SOB, diarrhea, nausea, emesis, worsening abdominal pain, dehydration occurs I spent a total of 10 minutes on the date of the service which included preparing to see the patient, [id number] patient care, completing clinical documentation, obtaining and/or reviewing separately obtained history, performing a medically appropriate examination, counseling and educating the patient/family/caregiver, ordering medications, tests, or procedures, communicating with other HCPs (not separately reported), independently interpreting results (not separately reported), communicating results to the patient/family/caregiver, and care coordination (not separately reported). Era Gagnon PA-C June 25, 2024 12:31 PM documented in this encounter [facility] 06-25-2024 Note HNO ID: [id number] Author: ERA GAGNON PA-C Service: ? Author Type: Physician Housing Inspectors Type: Progress Notes Filed: 06/25/2024 12:40 Note Text: VIRTUAL VISIT FOLLOW UP I have communicated my name and active licensure. The patient's identity and physical location were verified at the time of this visit. Either the patient or their legal outside medical sales representative has been informed of the risks and benefits of -- and alternatives to -- treatment through a remote evaluation and consents to proceed with the evaluation remotely. I had a virtual visit with Ms. Oliver today for follow up of GERD, Schatzki's, constipation. PMHx positive for Parkinson's UPDATED HISTORY: On Protonix 40 mg daily, Zofran PRN S/P EGD w/ dilation 11/2023 with good improvement. Taking all pills with applesauce to help her swallow With Colace BID she had increased bloating so reduced to once daily. Bms are 1-2 per day, formed consistency, no blood. Denies abd pain, emesis, weight loss EGD 11/2023 Impression: - Tortuous esophagus. - Z-line regular, 39 cm from the incisors. - Non-obstructing and mild Schatzki ring. Dilated. - Normal stomach. Biopsied. - Normal examined duodenum. FINAL DIAGNOSIS Stomach, biopsies: - Minimal chronic gastritis. Negative for morphologic features of Helicobacter pylori on routine staining. Colon 2018 Impression: - Diverticulosis in the sigmoid colon and in the transverse colon. - Non-bleeding external and internal hemorrhoids. - No specimens collected. Cookie swallow 08/2023 Impression: 1. No evidence of aspiration 2. There appears to be marked narrowing of the distal esophagus or gastroesophageal junction. Formal esophagram recommended 3. See Speech and Hearing therapist report for further evaluation OV 03/2024 Accompanied by daughter Lou Oliver is a 78 year old female PMHx positive for Parkinson's here today for Recheck (Dysphagia- pt states she is doing a little better ). Seen previously for dysphagia. On Protonix 40 mg daily. S/P EGD w/ dilation 11/2023 with good improvement. Includes that her acid reflux has reduced. Some residual nausea, attributes this to her dopamine. Includes she only gets returning acid reflux when she is not eating. Zofran PRN helps her to eat. Weight loss of 3 lbs since last OV. Bms are persistently alternating between constipated/diarrhea, no blood. States she thinks is related to her IBS. Only taking Colace once daily. PAST MEDICAL HISTORY No date: Diverticulosis of colon (without mention of hemorrhage) 04/04/2007: Essential hypertension, benign No date: Mental disorder 04/04/2007: Migraine without aura No date: Parkinson disease (HCC) 04/04/2007: Unspecified hypothyroidism PAST SURGICAL HISTORY : DELIVERY ONLY Comment: , low cervical x2 1994: COLONOSCOPY FLX DX W/COLLJ SPEC WHEN PFRMD Comment: Colonoscopy 04/07/2012: COLONOSCOPY FLX DX W/COLLJ SPEC WHEN PFRMD Comment: Colonoscopy 06/17/2019: COLONOSCOPY FLX DX W/COLLJ SPEC WHEN PFRMD Comment: Colonoscopy 09/1982: DILATION AND CURETTAGE DXAND/THER NONOBSTETRIC Comment: Dilation AND curettage 11/29/2023: EGD W/O [facility] SPEC VARICIES INJ 02/1996: PAST SURGICAL HISTORY OF Comment: EMB No date: TONSILLECTOMY AND ADENOIDECTOMY Comment: T/A (under age 13 years) FAMILY HISTORY Problem Relation Age of Onset Hypertension Mother Arthritis Mother Heart disease Mother Diabetes Father adult onset Emphysema Father Cancer Father lung Psychiatry Maternal Grandmother Ischemic Heart Disease Maternal Grandfather Diabetes Paternal Grandmother Asthma Daughter Allergic Rhinitis Daughter Colon Cancer No Family History Social History Tobacco Use Smoking status: Never Smokeless tobacco: Never Tobacco comments: Father smoked in childhood home. 2 spouses were smokers. Vaping Use Vaping status: Never Used Substance Use Topics Alcohol use: No Drug use: No Current Outpatient Medications Medication Sig Dispense Refill sertraline (ZOLOFT) 50 mg tablet Take 1 tablet by mouth once daily. Take a total of 150 mgs daily. 30 tablet 5 sertraline (ZOLOFT) 100 mg tablet Take 1 tablet by mouth once daily. 90 tablet 3 fludrocortisone (FLORINEF) 0.1 mg tablet Take 1 tablet by mouth once daily. 90 tablet 3 levothyroxine (SYNTHROID) 75 mcg tablet Take 1 tablet by mouth once daily. Take on empty stomach. For Thyroid 90 tablet 3 carbidopa-levodopa (SINEMET 25-100) 25-100 mg per tablet TAKE 1 TAB AT 7AM, 1.5 TO 2 TABS AT 11AM, 1.5 TABS AT 3PM AND 1 TAB AT 7PM. 495 tablet 1 triamcinolone acetonide (KENALOG) 0.1 % cream Apply 1 application to affected area three times a day. Apply sparingly to area for rash/itching. 30 g 0 Olopatadine (PATADAY ONCE DAILY RELIEF) 0.2 % drop Use 1 Drop in both eyes once daily. 5 mL 0 ondansetron orally disintegrating (ZOFRAN ODT) 4 mg disintegrating tablet Take 1 tablet by mouth every 8 hour (more content not included)... [facility] 06-16-2024 History of Present illness Narrative Radiology Service Progress Note DATE OF SERVICE: June 16, 2024 TIME: 10:16 AM PATIENT IDENTITY VERIFICATION COMPLETED USING TWO (2) STANDARD IDENTIFIERS: Name and Date of confirmed by patient verbally. FALL SCREENING: Has the patient had 2 falls in the last year or 1 fall with injury or currently using an Ambulatory Assistive Device (Walker, Cane, Wheelchair, Crutches, etc.)? Yes, Patient High Risk for Falls What interventions were put in place to prevent falls during this visit? Instructed Patient to Call for Help if Needed, Offered Assistance with Transfers/Clothing, Instructed Patient to Remain Seated (Not on Exam Table) Until Exam, and Increased Observations by Caregivers PATIENT GENDER DATA: Female. status: : No status: NO. PATIENT RELEVANT IMPLANT DATA REVIEWED: Yes PATIENT PRESENTS WITH AN IMPLANTABLE OR ATTACHED FUEL CELL BUILDER: No ALLERGIES: Reviewed and unchanged CONTRAST ALLERGY: NO. EXAM: MRI - CONTRAST TYPE: GROUP II PERIPHERAL IV DATA: Ambulatory: A peripheral IV was started in the Left antecubital site with a Angio cath: 22 gauge. RADIOLOGY DEPARTMENT: MR; Exam(s) Completed: Head: Routine Brain SIGNATURE: JEREMI Garcia) PATIENT NAME: Lou Oliver DATE: June 16, 2024 TIME: 10:16 AM documented in this encounter [facility] 06-16-2024 Note HNO ID: [id number] Author: GRACE GONZALEZ RT (R) Service: ? Author Type: Technologist Type: Progress Notes Filed: 06/16/2024 10:17 Note Text: Radiology Service Progress Note DATE OF SERVICE: June 16, 2024 TIME: 10:16 AM PATIENT IDENTITY VERIFICATION COMPLETED USING TWO (2) STANDARD IDENTIFIERS: Name and Date of confirmed by patient verbally. FALL SCREENING: Has the patient had 2 falls in the last year or 1 fall with injury or currently using an Ambulatory Assistive Device (Walker, Cane, Wheelchair, Crutches, etc.)? Yes, Patient High Risk for Falls What interventions were put in place to prevent falls during this visit? Instructed Patient to Call for Help if Needed, Offered Assistance with Transfers/Clothing, Instructed Patient to Remain Seated (Not on Exam Table) Until Exam, and Increased Observations by Caregivers PATIENT GENDER DATA: Female. status: : No status: NO. PATIENT RELEVANT IMPLANT DATA REVIEWED: Yes PATIENT PRESENTS WITH AN IMPLANTABLE OR ATTACHED FUEL CELL BUILDER: No ALLERGIES: Reviewed and unchanged CONTRAST ALLERGY: NO. EXAM: MRI - CONTRAST TYPE: GROUP II PERIPHERAL IV DATA: Ambulatory: A peripheral IV was started in the Left antecubital site with a Angio cath: 22 gauge. RADIOLOGY DEPARTMENT: MR; Exam(s) Completed: Head: Routine Brain SIGNATURE: RT Radha(R) PATIENT NAME: Lou Oliver DATE: June 16, 2024 TIME: 10:16 AM [facility] 06-11-2024 Note HNO ID: [id number] Author: JOSE AG LPN Service: ? Author Type: LICENSED NURSE Type: Progress Notes Filed: 06/11/2024 14:38 Note Text: Review of Systems Constitutional: Positive for activity change. Negative for chills, fever and unexpected weight change. Gastrointestinal: Negative for bowel retention or incontinence Genitourinary: Negative for difficulty urinating. Negative for bladder retention or incontinence Musculoskeletal: Positive for arthralgias, back pain, gait problem, neck pain and neck stiffness. Negative for joint swelling and myalgias. Neurological: Positive for weakness. Negative for numbness and headaches. Psychiatric/Behavioral: Positive for dysphoric mood. Negative for sleep disturbance and suicidal ideas. The patient is nervous/anxious. [facility] 06-11-2024 History of Present illness Narrative Review of Systems Constitutional: Positive for activity change. Negative for chills, fever and unexpected weight change. Gastrointestinal: Negative for bowel retention or incontinence Genitourinary: Negative for difficulty urinating. Negative for bladder retention or incontinence Musculoskeletal: Positive for arthralgias, back pain, gait problem, neck pain and neck stiffness. Negative for joint swelling and myalgias. Neurological: Positive for weakness. Negative for numbness and headaches. Psychiatric/Behavioral: Positive for dysphoric mood. Negative for sleep disturbance and suicidal ideas. The patient is nervous/anxious. Images from the original note were not included. [facility] Today's Date: 06/11/2024 Name: Lou Oliver : 1945 Purpose: Follow-up Patient Evaluation - This is an established patient, returning today for continued evaluation and management of the chief complaint noted below Chief complaint: neck pain Referring Clinician: Marvel Rizzo MD Pertinent Past Medical History: Migraine, Lt. Knee pain, Parkinson disease, Neck pain, Intracranial meningioma, HTN, HLD, Tachycardia, Hypothyroidism, Cervical spondylosis, Anxiety, Pes anserinus bursitis of left knee, Neck muscle weakness, Spinal stenosis of cervical region, Pertinent Past Surgeries: none DH 04/30/2024 - Grace Hunt APRN.BUCKET PUSHER Patient stating her pain is currently managed. States she feels on a 1-10 scale her pain level in her neck is at a 2 or 3. Patient states that the pain is worse when her Parkinson's.'s are off. Patient feels the trigger point injections helped greater than the radiofrequency ablation did. Patient does not feel she needs to repeat at this time but would like to remain the patient in order to have access to more trigger point injections if needed. Plan at last visit: (Seen on 02/27/2024 by David Diaz MD) Medications: Ibuprofen Gel Caps 400mg BID PRN (prefer smaller pills given issues swallowing, but Mobic contraindicated due to Sulfa allergy) Neurontin 100mg BID (Neurology) Lidocaine patches, 2 daily, #60 - using OTC Interventional Procedures: TRIGGER POINT INJECTION: Location (muscle groups): cervical paraspinals, upper traps, bilaterally Functional Shinto: Advised soft tissue massage Follow-up: 3 months Depending on response to the above plan, consider: Repeat RFA vs SPRINT Interval History: Overall pain and functional disability since last visit: Better New Complaints since last visit: No She reports that her neck pain overall has been better since the ablation and the trigger point injections. She reports overall having about 50% relief. She reports that the ablation had started wearing off and the trigger point injection helped improve the pain control. She continues with Neurology for Parkinson's. She reports her Dopaminergic medications have been adjusted. However, on days when her Parkinson's symptoms are flared-up, or in between doses of medication, she has more pain. Her family notes that she is sitting more upright most days. She also finds that her pain worsens as the day progresses, typically after 430pm. She is able to garden and be more active around the house. However, she still is unable to go for long walks, as it triggers her neck pain. Pain Description: Timing: intermittant Character: aching and burning Primary Location: axial neck and upper traps Radiation: none Exacerbating factors: walking and lying flat Relieving factors: ice and heat, C-collar (uses sparingly) Interferes with: physical activity The patient denies difficulty with bowel or bladder control, unintentional weight loss, and fevers, chills, or night sweats. Current Pain Medications: Neuropathics: Gabapentin 100mg BID - for foot tingling/numbness, helps (Neurology) NSAIDS: Ibuprofen Gel Caps 400mg BID PRN (prefer smaller pills given issues swallowing, but Mobic contraindicated due to Sulfa allergy) Muscle Relaxants: Topicals: Voltaren gel, THC cream - helps a little bit, Lidocaine patches, 2 daily, #60 Other Prescription or OTC Pain Medications: Tylenol OTC Opioids (when applicable): Opioid Risk Tool Opiod Risk Tool Date Completed 06/11/2024 Comments 1 Tolerating Medication: Yes Medications helping improve ADL's and Self-care: Yes Anti-depressants or Mood-Stabilizers: None Anti-Coagulants: None Therapies Attended (Current or Most Recent): Physical Therapy : March - Jul, 2023 Notable Events During Course of Treatment: 07/04/2023 - Initial HPI (Obtained by Jak Diaz M.D.). Referred by Marvel Rizzo MD, for evaluation & management of neck pain Duration: 10 years Sudden onset? no, Trauma? no Prior Treatments: Medications (See below), Modalities (eg. Heat, Ice), Physical Therapy , Home Exercise Program , and Activity Modification PT - 12 visits (04/09/2023 - 06/11/2023) Worked for years at [employer], reports she frequently hunched in her job Seen previously (last on ) by an Anesthesia Pain Physician. She had trigger point injections multiple times, without sustained relief. This is her first evaluation by a PM&R Pain Physician. Takes Tylenol OTC, minimal relief Has Parkinson's Treatment History: PAIN PROCEDURES: DATE PROCEDURE IMPROVEMENT 03/19/2024 TPI >50% x 2 months 10/02/2023 RFA, Bilat C4-5 and C5-6 50% (06/11/2024 ) 08/17/2021 TPI 50% relief x 6 weeks MEDICATIONS Taken TO DATE (for the chief complaint(s)): Neuropathics: Neurontin (Gabapentin) NSAIDS: Naprosyn (Naproxen), Mobic (Meloxicam) Muscle Relaxants: Zanaflex (Tizanidine) Topicals: Voltaren (Gel) Other Prescription or OTC Pain Medications: Tylenol (Acetaminophen), Sinemet, Florinef, Ativan, Opioids: None Data Reviewed Today: Allergies: ALLERGIES Allergen Reactions Sulfa (Sulfonamide * Hives Social History Tobacco Use Smoking status: Never Smokeless tobacco: Never Tobacco comments: Father smoked in childhood home. 2 spouses were smokers. Vaping Use Vaping status: Never Used Substance Use Topics Alcohol use: No Drug use: No 06/04/2024 06/11/2024 INTAKE PAIN ASSESSMENT Are you having pain associated with your visit today? No Yes, Provider notified Pain Scales Verbal (Numeric Rating or Visual Analog Scale) Pain Level 5 Pain Location Neck Description Aching;Burning;Shooting;Stabbing;T hrobbing;Sharp;Tightness Duration Units Years Frequency Continuous Intervention/Comfort measure Medication;Reposition;Relaxation;C old;Heat;Exercise;Pillow support;Positioning;Massage Compliance: PDMP website checked and validated on 06/11/2024 by Jak Diaz MD All prescriptions have been APPROPRIATELY filled. No suspicious activity was identified. 05/12/2020 06/22/2021 07/04/2023 06/11/2024 AG SPINE COMBINATION Questionnaire GREENLIGHT GREENLIGHT Completed Date 05/12/2020 07/04/2023 Questionnaire Opiod Risk Tool Opiod Risk Tool Opiod Risk Tool Opiod Risk Tool Completed Date 05/12/2020 06/22/2021 07/04/2023 06/11/2024 Comments 1 (All drug screens are appropriate unless indicated otherwise) Risk Assessment: DIANNE-7: 10/22/2023 11/30/2023 03/24/2024 DIANNE - 7 SCORES Score 7 7 8 (0-4) minimal anxiety, (5-9) mild anxiety, (10-14) moderate anxiety, (15-21) severe anxiety PHQ-9: 11/30/2023 03/24/2024 06/04/2024 PHQ-9 Score 8 10 12 (0-4) minimal depression, (5-9) mild depression, (10-14) moderate depression, (15-19) moderately severe depression, (20-27) severe depression Diagnostic Studies: Relevant Imaging: MRI Spine Report MRI CERVICAL SPINE WO IVCON Exam End: 05/10/2020 8:23 AM (Final result) Narrative: * * *Final Report* * * DATE OF EXAM: May 10 2020 8:15AM REMA [id number] - MRI CERVICAL SPINE WO IVCON / PROCEDURE REASON: multiple diagnoses * * * * Physician Interpretation * * * * EXAMINATION: MRI CERVICAL SPINE WO IVCON CLINICAL HISTORY: Spinal stenosis of cervical region - Cervicalgia - Spinal stenosis, spondylolisthesis, torticollis, radiculopathy, trauma - C-spine stenosis, Neck pain, chronic, mechanical TECHNIQUE: Routine cervical spine MR protocol without gadolinium. MQ: [id number] COMPARISON: Cervical spine radiographs 04/06/2020 RESULT: Counting reference: Craniocervical junction. Anatomic Variants: None. Alignment: Straightening of the cervical lordosis with trace grade 1 degenerative spondylolisthesis at C4-5, and minimal retrolisthesis at C5-6. Moderate intervertebral disc space narrowing at C4-5. Craniocervical junction: Craniocervical junction is normal. Cord: Minimal cord abutment at C4-5 due to spondylotic changes, further detailed below. No intramedullary signal abnormality. Bone marrow signal/fracture: Patchy likely reactive marrow edema at the left C3-4 facet joint. No evidence of confluent abnormal marrow replacement or an acute fracture. Small T1/T2 hyperintense lesion suggesting small intraosseous hemangioma within the left T5 pedicle and articular facets. Cervical soft tissues: The paraspinal soft tissues are within normal limits. C2-C3: Shallow disc bulging partially effacing the ventral thecal sac without cord contact. Patent foramina. C3-C4: Small central disc protrusion partially effacing the ventral thecal sac without cord impact. Mild bilateral foraminal stenosis due to uncovertebral and facet hypertrophy. C4-C5: Mild canal stenosis due to shallow disc/osteophyte complex and dorsal ligamentous hypertrophy. No significant cord impact. Patent foramina. C5-C6: Minimal retrolisthesis and disc/osteophyte complex effacing the ventral thecal sac without cord impact. Patent foramina. C6-C7: Canal and foramina are patent. C7-T1: Canal and foramina are patent. No significant canal or foraminal stenosis in the imaged upper thoracic spine to the level of T5-6. Impression: IMPRESSION: Mild cervical spondylosis without high-grade canal or foraminal stenosis. Anatomic Variant: None. Assume 7 cervical vertebrae with counting from the craniocervical junction. Tenant Selector: DOMENIC Transcribe Date/Time: May 10 2020 8:36A Dictated by : MARIS REMY MD This examination was interpreted and the report reviewed and electronically signed by: MARIS REMY MD on May 10 2020 8:46AM EST X-ray Thoracic and Cervical 03/2023 RESULTS: Counting reference: Craniocervical junction.. Straightening of normal cervical lordosis. Mild amount narrowing C4/C5 moderate to marked narrowing C5/C6 disc spaces. Osteophytes anteriorly at C5-C6 and uncovertebral osteophytes at C5-C6. Less than 2 mm anterior subluxation C4 and C5. Facet degenerative changes throughout the cervical spine with hypertrophic changes at C2-C3 5. The left neural foraminal obliques are over rotated with neuroforaminal narrowing at C3/C4 and C4/C5. Neuroforaminal narrowing at C3/C4 and C4/C5 on the right. Thoracic spine counting reference: The first rib-bearing vertebral bodies considered T1. There are 12 rib-bearing vertebral bodies. Proximally 73 degree kyphosis centered at T6/T7. Vertebral bodies and pedicles are intact. Degenerative disc disease from T1/T2 13th T7/T8. 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 Electrodiagnostic Study (EMG): None Recent Labs: Creatinine Date Value Ref Range Status 11/11/2023 0.66 0.58 - 0.96 mg/dL Final No results found for: EGFR No results found for: PCGLUCOSE Post-RFA MOUNIKA (04/30/2024) Pain level: 2/10 (on good days) Pain Intensity 0 Personal Care (Washing/Dressing) 0 - I can look after myself normally without causing extra pain Lifting 2 - Pain prevents me from lifting heavy weights off the floor, but I can manage if conveniently positioned (e.g. on a table) Walking 2 Sitting 2 Standing 2 Sleeping 0 - Pain does not prevent me from sleeping well Sex Life 0 - My sex life is normal and causes no pain Social Life 2 Traveling 3 Total Score 13 Interpretation 0-20% - mild disability Current Medications, Past Medical History, Past Surgical History, Family History, Social History and Review of Systems: On today's date, noted above, I have confirmed and edited as necessary, the PFSH and ROS obtained by others. Physical Exam: 06/11/24 1352 BP: 104/61 Pulse: 74 Resp: 18 SpO2: 98% Neuro-Upper: Sensation: Grossly intact to light touch in both upper limbs (C5-T1) dermatomes Strength: Deltoid (C5): 5 left, 5 Right Biceps (C6): 5 left, 5 Right Triceps (C7): 5 left, 5 Right Wrist Extensors (C8): 5 left, 5 Right Abduct. Pollicis Brevis (T1): 5 left, 5 Right Muscle Tone: Normal and symmetric throughout, without clonus Reflexes: Increased 3+ and symmetric biceps, triceps, brachioradialis Eisenberg: Negative (Normal) bilaterally Musculoskeletal-Upper: Inspection: Symmetric without atrophy Palpation: Cervical Paraspinal Tenderness: Concordant Greater Occipital Nerves: no tenderness in overlying tissue Paraspinal spasm: Moderate Range of Motion: Flexion/Extension: Decreased 50% With end range pain Lateral Bending: Decreased 50% With end range pain Lateral Rotation: Decreased 50% With end range pain IMPRESSION: 79 year old female presents with complaint(s) of axial neck pain, facet-mediated, myofascial overlay. She has not had sustained relief with trigger point injections. Has completed course of PT without improvement. Now s/p RFA, with significantly improved neck pain, except during flare-ups. There is some residual myofascial pain that may respond to trigger point injections now that the facet-mediated pain is better-controlled. Diagnoses: (M79.18) Myofascial pain (primary encounter diagnosis) (M47.812) Cervical spondylosis without myelopathy PLAN: Lou Oliver would benefit from the following to reach personal goals for decreasing pain, improving function and work participation, and/or improving quality of life: Medications: Ibuprofen Gel Caps 400mg BID PRN (prefer smaller pills given issues swallowing, but Mobic contraindicated due to Sulfa allergy) Neurontin 100mg BID (Neurology) Lidocaine patches, 2 daily, #60 - using OTC Interventional Procedures: trigger point injection - repeat injection Studies: None Functional Shinto: Advised soft tissue massage Referrals: No additional considerations at present Follow-up: after trigger point injections (EDWIN) Depending on response to the above plan, consider: Repeat RFA vs SPRINT Compliance and Clinic Policies Reviewed and/or Discussed Today: None Attribution: In addition to reviewing the information noted above, some elements copied from my most recent clinical note(s), including the physical exam (completed in entirety today), and the impression and plan sections, have been updated where appropriate. All reflect current medical decision making from today's date. Jak Diaz MD Pain Management [facility] documented in this encounter [facility] 06-10-2024 Note HNO ID: [id number] Author: JAK DIAZ MD Service: ? Author Type: Physician Type: Progress Notes Filed: 06/11/2024 14:38 Note Text: [facility] Today's Date: 06/11/2024 Name: Lou Oliver : 1945 Purpose: Follow-up Patient Evaluation - This is an established patient, returning today for continued evaluation and management of the chief complaint noted below Chief complaint: neck pain Referring Clinician: Marvel Rizzo MD Pertinent Past Medical History: Migraine, Lt. Knee pain, Parkinson disease, Neck pain, Intracranial meningioma, HTN, HLD, Tachycardia, Hypothyroidism, Cervical spondylosis, Anxiety, Pes anserinus bursitis of left knee, Neck muscle weakness, Spinal stenosis of cervical region, Pertinent Past Surgeries: none 04/30/2024 - Grace Hunt APRN.BUCKET PUSHER Patient stating her pain is currently managed. States she feels on a 1-10 scale her pain level in her neck is at a 2 or 3. Patient states that the pain is worse when her Parkinson's.'s are off. Patient feels the trigger point injections helped greater than the radiofrequency ablation did. Patient does not feel she needs to repeat at this time but would like to remain the patient in order to have access to more trigger point injections if needed. Plan at last visit: (Seen on 02/27/2024 by David iDaz MD) Medications: Ibuprofen Gel Caps 400mg BID PRN (prefer smaller pills given issues swallowing, but Mobic contraindicated due to Sulfa allergy) Neurontin 100mg BID (Neurology) Lidocaine patches, 2 daily, #60 - using OTC Interventional Procedures: TRIGGER POINT INJECTION: Location (muscle groups): cervical paraspinals, upper traps, bilaterally Functional Shinto: Advised soft tissue massage Follow-up: 3 months Depending on response to the above plan, consider: Repeat RFA vs SPRINT Interval History: Overall pain and functional disability since last visit: Better New Complaints since last visit: No She reports that her neck pain overall has been better since the ablation and the trigger point injections. She reports overall having about 50% relief. She reports that the ablation had started wearing off and the trigger point injection helped improve the pain control. She continues with Neurology for Parkinson's. She reports her Dopaminergic medications have been adjusted. However, on days when her Parkinson's symptoms are flared-up, or in between doses of medication, she has more pain. Her family notes that she is sitting more upright most days. She also finds that her pain worsens as the day progresses, typically after 430pm. She is able to garden and be more active around the house. However, she still is unable to go for long walks, as it triggers her neck pain. Pain Description: Timing: intermittant Character: aching and burning Primary Location: axial neck and upper traps Radiation: none Exacerbating factors: walking and lying flat Relieving factors: ice and heat, C-collar (uses sparingly) Interferes with: physical activity The patient denies difficulty with bowel or bladder control, unintentional weight loss, and fevers, chills, or night sweats. Current Pain Medications: Neuropathics: Gabapentin 100mg BID - for foot tingling/numbness, helps (Neurology) NSAIDS: Ibuprofen Gel Caps 400mg BID PRN (prefer smaller pills given issues swallowing, but Mobic contraindicated due to Sulfa allergy) Muscle Relaxants: Topicals: Voltaren gel, THC cream - helps a little bit, Lidocaine patches, 2 daily, #60 Other Prescription or OTC Pain Medications: Tylenol OTC Opioids (when applicable): Opioid Risk Tool Opiod Risk Tool Date Completed 06/11/2024 Comments 1 Tolerating Medication: Yes Medications helping improve ADL's and Self-care: Yes Anti-depressants or Mood-Stabilizers: None Anti-Coagulants: None Therapies Attended (Current or Most Recent): Physical Therapy : March - Jul, 2023 Notable Events During Course of Treatment: 07/04/2023 - Initial HPI (Obtained by Jak Diaz M.D.). Referred by Marvel Rizzo MD, for evaluation AND management of neck pain Duration: 10 years Sudden onset? no, Trauma? no Prior Treatments: Medications (See below), Modalities (eg. Heat, Ice), Physical Therapy , Home Exercise Program , and Activity Modification PT - 12 visits (04/09/2023 - 06/11/2023) Worked for years at a [employer], reports she frequently hunched in her job Seen previously (last on ) by an Anesthesia Pain Physician. She had trigger point injections multiple times, without sustained relief. This [facility]. Takes Tylenol OTC, minimal relief Has Parkinson's (more content not included)... [facility] 06-05-2024 History of Present illness Narrative Images from the original note were not included. Lou Oliver is a 79 year old female here for a Medicare wellness visit. Medicare Health Risk Assessment General Health Good Exercise: Minutes/Day 40 min Exercise: Days/Week 5 days Alcohol: Daily Use Monthly or less Alcohol: Drinks/Day Patient does not drink Alcohol: 6 or more drinks Never Feel off balance Yes Concerns: Teeth/Dentures No Concerns: Sexual function No Troubled by feelings Anxious Frequency: Eating healthy diet More than half the days ADLs requiring help Housework; Driving Safety precautions in home/vehicle Yes Smoke, vape, chews tobacco No Difficulty hearing No Difficulty seeing No Current Providers Specialists: I have reviewed specialist-related care of the patient in the medical record. Medical/Family history review Reviewed and updated problem list, medical/surgical/family/social history, medications, and allergies. Opioid use review Opioid Medications (last 90 days) No data to display Anxiety/Depression screening PHQ-9 Score: 12 (Moderate Depression) Recommendation: medication management Cognitive screening Mini Cog Score: 5 Cognitive screening reviewed and No further action needed (score 3-5). Functional Observation Was the patient's Timed Up & Go test unsteady or ? 12 seconds? No Advance Care Planning Surrogate decision maker and/or advance care plan documented Measurements BP 98/70 (BP Site: Left Arm) Pulse 106 Wt 57.4 kg (126 lb 9.6 oz) SpO2 97% BMI 21.73 kg/m Vision Screening: Follows with optometry/ophthalmology Assessment/Plan Medicare annual wellness visit, subsequent (Z00.00) - Counseled on healthy diet and regular exercise - Fall avoidance information provided - Personalized prevention plan providedReason for Visit Patient presents with: Recheck: Panic attack, see phone note Lou Oliver is a 79 year old female who presents here today for Above Complaints.. Health Maintenance Depression Screening BP Controlled (<130/80) DTaP,Tdap,Td Vaccine(1 - Tdap) RSV Vaccine(1 - 1-dose 60+ series) Shingrix Vaccine(2 of 3) Covid-19 Vaccine( season) Advance Directive Discussion LUIGI Blake is a very pleasant 79-year-old woman with a past medical history of migraine without aura, Parkinson's disease, intracranial meningioma, essential hypertension, mixed hyperlipidemia, palpitations, hypothyroidism, anxiety state. She was seen in the past month for a rash in the urgent care, was also followed up by neurology Dr. Era Mitchell for orthostatic hypotension. She was started on florinef 0.1 mgs and she drinks more fluids and that helps her. She also has been having the wearing off time, happen to her like clock work. No trouble walking. More issues with balance, Has been having a little more anxiety and some anxiety attacks. No problem-specific Assessment & Plan notes found for this encounter. PAST MEDICAL HISTORY No date: Diverticulosis of colon (without mention of hemorrhage) 04/04/2007: Essential hypertension, benign No date: Mental disorder 04/04/2007: Migraine without aura No date: Parkinson disease (HCC) 04/04/2007: Unspecified hypothyroidism PAST SURGICAL HISTORY : DELIVERY ONLY Comment: , low cervical x2 1994: COLONOSCOPY FLX DX W/COLLJ SPEC WHEN PFRMD Comment: Colonoscopy 04/07/2012: COLONOSCOPY FLX DX W/COLLJ SPEC WHEN PFRMD Comment: Colonoscopy 06/17/2019: COLONOSCOPY FLX DX W/COLLJ SPEC WHEN PFRMD Comment: Colonoscopy 09/1982: DILATION & CURETTAGE DX&/THER NONOBSTETRIC Comment: Dilation & curettage 11/29/2023: EGD W/O [facility] SPEC VARICIES INJ 02/1996: PAST SURGICAL HISTORY OF Comment: EMB No date: TONSILLECTOMY & ADENOIDECTOMY <AGE 13 Comment: T/A (under age 13 years) FAMILY HISTORY Problem Relation Age of Onset Hypertension Mother Arthritis Mother Heart disease Mother Diabetes Father adult onset Emphysema Father Cancer Father lung Psychiatry Maternal Grandmother Ischemic Heart Disease Maternal Grandfather Diabetes Paternal Grandmother Asthma Daughter Allergic Rhinitis Daughter Colon Cancer No Family History Social History Tobacco Use Smoking status: Never Smokeless tobacco: Never Tobacco comments: Father smoked in childhood home. 2 spouses were smokers. Vaping Use Vaping Use: Never used Substance Use Topics Alcohol use: No Drug use: No Past medical history, appointments, medications, allergies reviewed. Pertinent Lab/Diagnostic Studies are reviewed and discussed today Current Outpatient Medications: sertraline (ZOLOFT) 100 mg tablet fludrocortisone (FLORINEF) 0.1 mg tablet levothyroxine (SYNTHROID) 75 mcg tablet carbidopa-levodopa (SINEMET 25-100) 25-100 mg per tablet triamcinolone acetonide (KENALOG) 0.1 % cream Olopatadine (PATADAY ONCE DAILY RELIEF) 0.2 % drop ondansetron orally disintegrating (ZOFRAN ODT) 4 mg disintegrating tablet pravastatin (PRAVACHOL) 20 mg tablet carbidopa-levodopa CR (SINEMET CR) 50-200 mg per tablet gabapentin (NEURONTIN) 100 mg capsule LORazepam (ATIVAN) 0.5 mg Cholecalciferol, Vitamin D3, 50 mcg (2,000 unit) cap docusate sodium (COLACE) [address] (PROTONIX) 40 mg tablet diclofenac sodium (VOLTAREN) 1 % topical gel Review of Systems CONSTITUTIONAL: No fevers, chills night sweats, unintended weight loss CARDIOVASCULAR: No chest pain, dyspnea, palpitations, orthopnea, PND, ankle edema. PULM: No dyspnea, unexplained cough. GI: No dysphagia/odynophagia, problematic reflux, constipation, diarrhea, changes in stool habits, hematochezia, melena. : No new urinary complaints, including dysuria, gross hematuria or pyuria. NEURO: No new balance problems, peripheral weakness/paresthesias or numbness of concern. Physical Exam BP 98/70 (BP Site: Left Arm) Pulse 106 Wt 57.4 kg (126 lb 9.6 oz) SpO2 97% BMI 21.73 kg/m General appearance: Well appearing, alert, in no acute distress, well nourished. Skin: Skin color, texture, turgor normal, no suspicious rashes or lesions Head: Normocephalic, no masses, lesions, tenderness or abnormalities Eyes: Anicteric sclera. Pupils are equally round and reactive to light. Extraocular movements are intact. Lungs: Lungs clear to auscultation. No wheezing, rhonchi, rales Heart: RRR without murmur, gallop, or rubs. Extremities: No deformities, edema, skin discoloration, clubbing or cyanosis. Good capillary refill. ASSESSMENT/PLAN: 1. Depression, unspecified depression type - ICD9: 311, ICD10: F32.A (primary diagnosis) On zoloft at 100, her depression has been controlled but has been having more anxiety lately 2. Panic attacks - ICD9: 300.01, ICD10: F41.0 - COMPLETE BLOOD COUNT AND DIFFERENTIAL 3. Anxiety - ICD9: 300.00, ICD10: F41.9 - SERTRALINE 50 MG TABLET 4. Major depressive disorder, single episode, 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) - ICD9: 296.23, ICD10: F32.2 - COMPLETE BLOOD COUNT AND DIFFERENTIAL 5. Autonomic dysfunction - ICD9: 337.9, ICD10: G90.9 On florinef, patient is doing better. 6. Intracranial meningioma (HCC) - ICD9: 225.2, ICD10: D32.0 Needs to have another follow up scan in oct, we will help her schedule 7. Hyperlipidemia, mixed - ICD9: 272.2, ICD10: E78.2 - Controlled - Counseled on healthy diet and regular exercise - LIPID PANEL BASIC - COMPREHENSIVE METABOLIC PANEL 8. Weight gain - ICD9: 783.1, ICD10: R63.5 - THYROID STIMULATING HORMONE 9. Fatigue, unspecified type - ICD9: 780.79, ICD10: R53.83 - THYROID STIMULATING HORMONE 10. Vitamin D deficiency - ICD9: 268.9, ICD10: E55.9 - VITAMIN D 25 HYDROXY 11. Vitamin B12 deficiency - ICD9: 266.2, ICD10: E53.8 - VITAMIN B12 Marvel Rizzo MD documented in this encounter [facility] 06-05-2024 Note HNO ID: [id number] Author: MARVEL RIZZO MD Service: ? Author Type: Physician Type: Progress Notes Filed: 06/05/2024 16:20 Note Text: Lou Oliver is a 79 year old female here for a Medicare wellness visit. Medicare Health Risk Assessment General Health Good Exercise: Minutes/Day 40 min Exercise: Days/Week 5 days Alcohol: Daily Use Monthly or less Alcohol: Drinks/Day Patient does not drink Alcohol: 6 or more drinks Never Feel off balance Yes Concerns: Teeth/Dentures No Concerns: Sexual function No Troubled by feelings Anxious Frequency: Eating healthy diet More than half the days ADLs requiring help Housework; Driving Safety precautions in home/vehicle Yes Smoke, vape, chews tobacco No Difficulty hearing No Difficulty seeing No Current Providers Specialists: I have reviewed specialist-related care of the patient in the medical record. Medical/Family history review Reviewed and updated problem list, medical/surgical/family/social history, medications, and allergies. Opioid use review Opioid Medications (last 90 days) No data to display Anxiety/Depression screening PHQ-9 Score: 12 (Moderate Depression) Recommendation: medication management Cognitive screening Mini Cog Score: 5 Cognitive screening reviewed and No further action needed (score 3-5). Functional Observation Was the patient's Timed Up AND Go test unsteady or ? 12 seconds? No Advance Care Planning Surrogate decision maker and/or advance care plan documented Measurements BP 98/70 (BP Site: Left Arm) Pulse 106 Wt 57.4 kg (126 lb 9.6 oz) SpO2 97% BMI 21.73 kg/m? Vision Screening: Follows with optometry/ophthalmology Assessment/Plan Medicare annual wellness visit, subsequent (Z00.00) - Counseled on healthy diet and regular exercise - Fall avoidance information provided - Personalized prevention plan providedReason for Visit Patient presents with: Recheck: Panic attack, see phone note Lou Oliver is a 79 year old female who presents here today for Above Complaints.. Health Maintenance Depression Screening BP Controlled (<130/80) DTaP,Tdap,Td Vaccine(1 - Tdap) RSV Vaccine(1 - 1-dose 60+ series) Shingrix Vaccine(2 of 3) Covid-19 Vaccine( season) Advance Directive Discussion LUIGI Lou is a very pleasant 79-year-old woman with a past medical history of migraine without aura, Parkinson's disease, intracranial meningioma, essential hypertension, mixed hyperlipidemia, palpitations, hypothyroidism, anxiety state. She was seen in the past month for a rash in the urgent care, was also followed up by neurology Dr. Era Mitchell for orthostatic hypotension. She was started on florinef 0.1 mgs and she drinks more fluids and that helps her. She also has been having the wearing off time, happen to her like clock work. No trouble walking. More issues with balance, Has been having a little more anxiety and some anxiety attacks. No problem-specific Assessment AND Plan notes found for this encounter. PAST MEDICAL HISTORY No date: Diverticulosis of colon (without mention of hemorrhage) 04/04/2007: Essential hypertension, benign No date: Mental disorder 04/04/2007: Migraine without aura No date: Parkinson disease (HCC) 04/04/2007: Unspecified hypothyroidism PAST SURGICAL HISTORY : DELIVERY ONLY Comment: , low cervical x2 1994: COLONOSCOPY FLX DX W/COLLJ SPEC WHEN PFRMD Comment: Colonoscopy 04/07/2012: COLONOSCOPY FLX DX W/COLLJ SPEC WHEN PFRMD Comment: Colonoscopy 06/17/2019: COLONOSCOPY FLX DX W/COLLJ SPEC WHEN PFRMD Comment: Colonoscopy 09/1982: DILATION AND CURETTAGE DXAND/THER NONOBSTETRIC Comment: Dilation AND curettage 11/29/2023: EGD W/O [facility] SPEC VARICIES INJ 02/1996: PAST SURGICAL HISTORY OF Comment: EMB No date: TONSILLECTOMY AND ADENOIDECTOMY Comment: T/A (under age 13 years) FAMILY HISTORY Problem Relation Age of Onset Hypertension Mother Arthritis Mother Heart disease Mother Diabetes Father adult onset Emphysema Father Cancer Father lung Psychiatry Maternal Grandmother Ischemic Heart Disease Maternal Grandfather Diabetes Paternal Grandmother Asthma Daughter Allergic Rhinitis Daughter Colon Cancer No Family History Social History Tobacco Use Smoking status: Never Smokeless tobacco: Never Tobacco comments: Father smoked in childhood home. 2 spouses were smokers. Vaping Use Vaping Use: Never used Substance Use Topics Alcohol use: No Drug use: No Past medical history, appointments, medications, allergies reviewed. Pertinent Lab/Diagnostic Studies are reviewed and discussed today Current Outpatient Medications: sertraline (ZOLOFT) 100 mg tablet fludrocortisone (FLORINEF) 0.1 mg tablet levothyroxine (SYNTHROID) 75 mcg tablet carbidopa-levodopa (SINEMET 25-100) 25-100 mg per tablet triamcinolone acetonide (KENALOG) 0.1 % cream Olopatadine (PATADA (more content not included)... [facility] 06-03-2024 Telephone encounter Note Patient reports she was at an exercise class today, and the squad was called because she was having a panic attack. Reports she thinks it was brought on by parkinsons, because there were no triggers, no concerns, she wasn't nervous, it just came out of no where. Patient declined to go to hospital, stating there really wasn't anything a hospital could do. Reports she is currently taking zoloft, which helps with her depression, and she has ativan if needed. Reports during todays attack, she became SOB, weak, tremors became worse. EMS advised her to see her doctor. Scheduled appt for Saturday of this week. [facility] 06-03-2024 Miscellaneous Notes Patient reports she was at an exercise class today, and the squad was called because she was having a panic attack. Reports she thinks it was brought on by parkinsons, because there were no triggers, no concerns, she wasn't nervous, it just came out of no where. Patient declined to go to hospital, stating there really wasn't anything a hospital could do. Reports she is currently taking zoloft, which helps with her depression, and she has ativan if needed. Reports during todays attack, she became SOB, weak, tremors became worse. EMS advised her to see her doctor. Scheduled appt for Saturday of this week. documented in this encounter [facility] 05-15-2024 Telephone encounter Note Prescription Refill Information The patient has been identified by name and date of : Yes Caregiver verified no other encounters exist for this prescription request: Yes Caregiver confirmed with patient/requestor that no other refills are due, in the near future, with this provider at this time: Yes The last office visit in the department: 05/04/24 Does the patient have a future office visit with this provider/department: No Requested Prescriptions Pending Prescriptions Disp Refills sertraline (ZOLOFT) 100 mg tablet 90 tablet 3 Sig: Take 1 tablet by mouth once daily. fludrocortisone (FLORINEF) 0.1 mg tablet 90 tablet 3 Sig: Take 1 tablet by mouth once daily. levothyroxine (SYNTHROID) 75 mcg tablet 90 tablet 3 Sig: Take 1 tablet by mouth once daily. Take on empty stomach. For Thyroid [facility] May 15, 2024 10:46 AM [facility] 05-15-2024 Miscellaneous Notes Prescription Refill Information The patient has been identified by name and date of : Yes Caregiver verified no other encounters exist for this prescription request: Yes Caregiver confirmed with patient/requestor that no other refills are due, in the near future, with this provider at this time: Yes The last office visit in the department: 05/04/24 Does the patient have a future office visit with this provider/department: No Requested Prescriptions Pending Prescriptions Disp Refills sertraline (ZOLOFT) 100 mg tablet 90 tablet 3 Sig: Take 1 tablet by mouth once daily. fludrocortisone (FLORINEF) 0.1 mg tablet 90 tablet 3 Sig: Take 1 tablet by mouth once daily. levothyroxine (SYNTHROID) 75 mcg tablet 90 tablet 3 Sig: Take 1 tablet by mouth once daily. Take on empty stomach. For Thyroid [facility] May 15, 2024 10:46 AM documented in this encounter [facility] 05-04-2024 Note HNO ID: [id number] Author: BRISSA YOUNG APRN.BUCKET PUSHER Service: ? Author Type: Nurse Practitioner Type: Progress Notes Filed: 05/04/2024 11:47 Note Text: Subjective The history is provided by the patient. No hourly sign language interpreter was used. Patient presents with: Rash: left eye matting and itching, neck x 3 days Lou Oliver is a 78 year old female who presents with a complaint of a rash on neck, face, and right arm The patients reports recently working in the garden. The rash is discribed as itchy, red Past treatments otc anti-itch cream Does the patient have a personal history of: Seasonal allergies: no Recent travel: no Recent infections: no Beginning a new medication: no Symptoms are triggered by: heat Other symtoms include: none of the following - appetite change, weight change, fever, chills, malaise, and fatigue Review of Systems Constitutional: Negative for chills and fever. Musculoskeletal: Negative for joint pain and myalgias. Skin: Positive for itching and rash. All other systems reviewed and are negative. Objective Physical Exam Vitals and nursing note reviewed. Pulmonary: Effort: Pulmonary effort is normal. Skin: General: Skin is warm and dry. Findings: Rash present. Rash is papular and vesicular. Neurological: Mental Status: She is alert and oriented to person, place, and time. Psychiatric: Mood and Affect: Affect normal. ASSESSMENT/PLAN: 1. Rash - ICD9: 782.1, ICD10: R21 Appears to be contact dermatitis Triamcinolone cream, do not use near eye Zyrtec Pataday for eye itching Diagnosis and treatment plan were discussed and questions were answered to the patient's satisfaction. Pt acknowledged understanding of concepts and follow up plan. Specific signs and symptoms that would indicate the need for higher level of care were discussed in detail warranting prompt ER evaluation. Brissa Young APRN.[facility] 05-04-2024 History of Present illness Narrative Images from the original note were not included. Subjective The history is provided by the patient. No hourly sign language interpreter was used. Patient presents with: Rash: left eye matting and itching, neck x 3 days Lou Oliver is a 78 year old female who presents with a complaint of a rash on neck, face, and right arm The patients reports recently working in the garden. The rash is discribed as itchy, red Past treatments otc anti-itch cream Does the patient have a personal history of: Seasonal allergies: no Recent travel: no Recent infections: no Beginning a new medication: no Symptoms are triggered by: heat Other symtoms include: none of the following - appetite change, weight change, fever, chills, malaise, and fatigue Review of Systems Constitutional: Negative for chills and fever. Musculoskeletal: Negative for joint pain and myalgias. Skin: Positive for itching and rash. All other systems reviewed and are negative. Objective Physical Exam Vitals and nursing note reviewed. Pulmonary: Effort: Pulmonary effort is normal. Skin: General: Skin is warm and dry. Findings: Rash present. Rash is papular and vesicular. Neurological: Mental Status: She is alert and oriented to person, place, and time. Psychiatric: Mood and Affect: Affect normal. ASSESSMENT/PLAN: 1. Rash - ICD9: 782.1, ICD10: R21 Appears to be contact dermatitis Triamcinolone cream, do not use near eye Zyrtec Pataday for eye itching Diagnosis and treatment plan were discussed and questions were answered to the patient's satisfaction. Pt acknowledged understanding of concepts and follow up plan. Specific signs and symptoms that would indicate the need for higher level of care were discussed in detail warranting prompt ER evaluation. Brissa Young APRN.ADRIANNA documented in this encounter [facility] 05-04-2024 Instructions Brissa Young APRN.CNP - 05/04/2024 11:28 AM EDT Zyrtec or claritin 10 mg By mouth daily at bedtime Start Triamcinolone 0.1% ointment twice daily for itch, do not use near eye Pataday eye drops as needed for itching Benadryl srpay as needed Keep rash clean and dry. Allow to dry out. documented in this encounter [facility] 05-01-2024 Telephone encounter Note Patient was called and spoken with. She was confused when she was scheduled for her next appointment since they didn't schedule her tpi. Patient was wondering if Grace thinks she needs more injections since she benefots from them.? Patient is scheduled to come in on 06/[address] Diaz for 3 mos follow up and was wondering if she has to wait until then to Dr. Diaz or if an order could be placed now if Grace so she can be scheduled for that and maybe get it done when she come in? Jade Collins [facility] 05-01-2024 Miscellaneous Notes Patient was called and spoken with. She was confused when she was scheduled for her next appointment since they didn't schedule her tpi. Patient was wondering if Grace thinks she needs more injections since she benefots from them.? Patient is scheduled to come in on 06/[address] Diaz for 3 mos follow up and was wondering if she has to wait until then to Dr. Diaz or if an order could be placed now if Grace so she can be scheduled for that and maybe get it done when she come in? Jade Collins ----- Message from Diane Haji sent at 04/30/2024 4:52 PM EDT ----- Regarding: Spine & Pain / Prebish, Grace (BUCKET PUSHER) / Procedure / Injection Spine & Pain / Prebish, Grace (BUCKET PUSHER) / Procedure / Injection Patient: Lou Oliver Date of : 1945 Primary Care Provider: Marvel Rizzo MD Patient has been identified by name and Date of (Y/N): y Patient: Lou Oliver Date of : 1945 Provider for this encounter: Marvel Rizzo MD Reason for the call/escalation: Patient saw Grace Prebicarmen but wanted to know if she needs to set up her next TPI. She would like a call back to discuss this Was Patient Referred to 911/Seek Emergency Treatment (Y/N): n Did Patient Agree (Y/N): n.a Was An Attempt Made To Transfer The Patient To The Office (Y/N): n Were You Able To Reach Someone At The Office (Y/N): n.a If Yes - Patient Was Transferred To (Caregivers Name): n.a If No - Which [facility] Or Medical Did You Speak With Regarding This Patient: n.a Was an appointment scheduled (Y/N): n Reason patient was requesting visit (RFV/signs and symptoms/diagnosis) : injection Person calling if other than patient: self Return call to if other than patient: self Best contact number: [phone] Thank you, Diane Haji April 30, 2024 4:53 PM documented in this encounter [facility] 05-01-2024 Telephone encounter Note ----- Message from Diane Haji sent at 04/30/2024 4:52 PM EDT ----- Regarding: Spine & Pain / Prebish, Grace (BUCKET PUSHER) / Procedure / Injection Spine & Pain / Prebish, Grace (BUCKET PUSHER) / Procedure / Injection Patient: Lou Oliver Date of : 1945 Primary Care Provider: Marvel Rizzo MD Patient has been identified by name and Date of (Y/N): y Patient: Lou Oliver Date of : 1945 Provider for this encounter: Marvel Rizzo MD Reason for the call/escalation: Patient saw Grace Juliana but wanted to know if she needs to set up her next TPI. She would like a call back to discuss this Was Patient Referred to [facility]/Seek Emergency Treatment (Y/N): n Did Patient Agree (Y/N): n.a Was An Attempt Made To Transfer The Patient To The Office (Y/N): n Were You Able To Reach Someone At The Office (Y/N): n.a If Yes - Patient Was Transferred To (Caregivers Name): n.a If No - Which [facility] Or Medical Did You Speak With Regarding This Patient: n.a Was an appointment scheduled (Y/N): n Reason patient was requesting visit (RFV/signs and symptoms/diagnosis) : injection Person calling if other than patient: self Return call to if other than patient: self Best contact number: [phone] Thank you, Diane Raissa April 30, 2024 4:53 PM [facility] 04-30-2024 Telephone encounter Note LVM with patient to call back/[facility]. 2 month follow up. Zoltan Gomez [facility] 04-30-2024 Miscellaneous Notes LVM with patient to call back/[facility]. 2 month follow up. Zoltan Gomez documented in this encounter [facility] 04-30-2024 Instructions Grace Hunt APRN.CNP - 04/30/2024 10:27 AM EDT Ice and heat as tolerated Activity as tolerated documented in this encounter [facility] 04-30-2024 History of Present illness Narrative Images from the original note were not included. VIRTUAL VISIT PROGRESS NOTE This is a virtual visit using [employer] Video Visit. It required patient-provider interaction for the medical decision making as documented below. I have communicated my name and active licensure. The patient's identity and physical location were verified at the time of this visit. Either the patient or their legal outside medical sales representative has been informed of the risks and benefits of -- and alternatives to -- treatment through a remote evaluation and consents to proceed with the evaluation remotely. [facility] Today's Date: 04/30/2024 Name: Lou Oliver : 1945 Purpose: Follow-up Patient Evaluation - This is an established patient, returning today for continued evaluation and management of the chief complaint noted below Chief complaint: neck pain Pertinent Past Medical History: Migraine, Lt. Knee pain, Parkinson disease, Neck pain, Intracranial meningioma, HTN, HLD, Tachycardia, Hypothyroidism, Cervical spondylosis, Anxiety, Pes anserinus bursitis of left knee, Neck muscle weakness, Spinal stenosis of cervical region, Pertinent Past Surgeries: none Plan at last visit: Medications: Ibuprofen Gel Caps 400mg BID PRN (prefer smaller pills given issues swallowing, but Mobic contraindicated due to Sulfa allergy) Neurontin 100mg BID (Neurology) Lidocaine patches, 2 daily, #60 - using OTC Interventional Procedures: TRIGGER POINT INJECTION: Location (muscle groups): cervical paraspinals, upper traps, bilaterally Medication Injected: 0.25% Bupivacaine # Sessions Requested: 1 PURPOSE: To diagnose trigger points as a cause of patient's pain and immobility. To provide therapeutic pain relief to improve range of motion, ADL's and community participation. EXAM FINDINGS: Trigger Point Present (Hyper excitable area of the body, where the application of a stimulus provokes pain to a greater degree than the surrounding area): YES Addiction Therapist Needed: Trigger Point Injections - NO Anticoagulant - Hold Needed: N/A (Not currently on Anticoagulants) Anticoagulant - Currently Taking: None Allergies (relevant): None Scheduling - Mobility (Can Patient independently transfer on/off an OR or Procedure table?): YES (May schedule at any location) Scheduling - Additional Info: None Studies: None Functional Shinto: Advised soft tissue massage Referrals: No additional considerations at present Follow-up: 3 month Interval History: Overall pain and functional disability since last visit: Better New Complaints since last visit: No Pain Description: Timing: intermittant Character: aching and burning Primary Location: axial neck and upper traps Radiation: none Exacerbating factors: walking and lying flat Relieving factors: ice and heat, C-collar (uses sparingly) Interferes with: physical activity The patient denies difficulty with bowel or bladder control, unintentional weight loss, and fevers, chills, or night sweats. Patient stating her pain is currently managed. States she feels on a 1-10 scale her pain level in her neck is at a 2 or 3. Patient states that the pain is worse when her Parkinson's.'s are off. Patient feels the trigger point injections helped greater than the radiofrequency ablation did. Patient does not feel she needs to repeat at this time but would like to remain the patient in order to have access to more trigger point injections if needed. Current Pain Medications: Neuropathics: Gabapentin 100mg BID - for foot tingling/numbness, helps (Neurology) NSAIDS: Ibuprofen Gel Caps 400mg BID PRN (prefer smaller pills given issues swallowing, but Mobic contraindicated due to Sulfa allergy) Muscle Relaxants: Topicals: Voltaren gel, THC cream - helps a little bit, Lidocaine patches, 2 daily, #60 Other Prescription or OTC Pain Medications: Tylenol OTC Opioids (when applicable): No question data found. Tolerating Medication: Yes Medications helping improve ADL's and Self-care: Yes Anti-depressants or Mood-Stabilizers: None Anti-Coagulants: None Therapies Attended (Current or Most Recent): Physical Therapy : March - Jul, 2023 Notable Events During Course of Treatment: 07/04/2023 - Initial HPI (Obtained by Jak Diaz M.D.). Referred by Marvel Rizzo MD, for evaluation & management of neck pain Duration: 10 years Sudden onset? no, Trauma? no Prior Treatments: Medications (See below), Modalities (eg. Heat, Ice), Physical Therapy , Home Exercise Program , and Activity Modification PT - 12 visits (04/09/2023 - 06/11/2023) Worked for years at a [employer], reports she frequently hunched in her job Seen previously (last on ) by an Anesthesia Pain Physician. She had trigger point injections multiple times, without sustained relief. This is her first evaluation by a PM&R Pain Physician. Takes Tylenol OTC, minimal relief Has Parkinson's Treatment History: PAIN PROCEDURES: DATE PROCEDURE IMPROVEMENT 10/02/2023 RFA, Bilat C4-5 and C5-6 >50% (02/27/2024) 08/17/2021 TPI 50% relief x 6 weeks MEDICATIONS Taken TO DATE (for the chief complaint(s)): Neuropathics: Neurontin (Gabapentin) NSAIDS: Naprosyn (Naproxen), Mobic (Meloxicam) Muscle Relaxants: Zanaflex (Tizanidine) Topicals: Voltaren (Gel) Other Prescription or OTC Pain Medications: Tylenol (Acetaminophen), Sinemet, Florinef, Ativan, Opioids: None Data Reviewed Today: Allergies: ALLERGIES Allergen Reactions Sulfa (Sulfonamide * Hives Social History Tobacco Use Smoking status: Never Smokeless tobacco: Never Tobacco comments: Father smoked in childhood home. 2 spouses were smokers. Vaping Use Vaping Use: Never used Substance Use Topics Alcohol use: No Drug use: No 03/25/2024 04/27/2024 INTAKE PAIN ASSESSMENT Are you having pain associated with your visit today? No No Compliance: PDMP website checked and validated on 04/30/2024 by Grace Hunt APRN.BUCKET PUSHER All prescriptions have been APPROPRIATELY filled. No suspicious activity was identified. 05/12/2020 06/22/2021 07/04/2023 AG SPINE COMBINATION Questionnaire GREENLIGHT GREENLIGHT Completed Date 05/12/2020 07/04/2023 Questionnaire Opiod Risk Tool Opiod Risk Tool Opiod Risk Tool Completed Date 05/12/2020 06/22/2021 07/04/2023 (All drug screens are appropriate unless indicated otherwise) Risk Assessment: DIANNE-7: 10/22/2023 11/30/2023 03/24/2024 DIANNE - 7 SCORES Score 7 7 8 (0-4) minimal anxiety, (5-9) mild anxiety, (10-14) moderate anxiety, (15-21) severe anxiety PHQ-9: 10/22/2023 11/30/2023 03/24/2024 PHQ-9 Score 8 8 10 (0-4) minimal depression, (5-9) mild depression, (10-14) moderate depression, (15-19) moderately severe depression, (20-27) severe depression Diagnostic Studies: Relevant Imaging: MRI Spine Report MRI CERVICAL SPINE WO IVCON Exam End: 05/10/2020 8:23 AM (Final result) Narrative: * * *Final Report* * * DATE OF EXAM: May 10 2020 8:15AM [id number] - MRI CERVICAL SPINE WO IVCON / PROCEDURE REASON: multiple diagnoses * * * * Physician Interpretation * * * * EXAMINATION: MRI CERVICAL SPINE WO IVCON CLINICAL HISTORY: Spinal stenosis of cervical region - Cervicalgia - Spinal stenosis, spondylolisthesis, torticollis, radiculopathy, trauma - C-spine stenosis, Neck pain, chronic, mechanical TECHNIQUE: Routine cervical spine MR protocol without gadolinium. MQ: [id number] COMPARISON: Cervical spine radiographs 04/06/2020 RESULT: Counting reference: Craniocervical junction. Anatomic Variants: None. Alignment: Straightening of the cervical lordosis with trace grade 1 degenerative spondylolisthesis at C4-5, and minimal retrolisthesis at C5-6. Moderate intervertebral disc space narrowing at C4-5. Craniocervical junction: Craniocervical junction is normal. Cord: Minimal cord abutment at C4-5 due to spondylotic changes, further detailed below. No intramedullary signal abnormality. Bone marrow signal/fracture: Patchy likely reactive marrow edema at the left C3-4 facet joint. No evidence of confluent abnormal marrow replacement or an acute fracture. Small T1/T2 hyperintense lesion suggesting small intraosseous hemangioma within the left T5 pedicle and articular facets. Cervical soft tissues: The paraspinal soft tissues are within normal limits. C2-C3: Shallow disc bulging partially effacing the ventral thecal sac without cord contact. Patent foramina. C3-C4: Small central disc protrusion partially effacing the ventral thecal sac without cord impact. Mild bilateral foraminal stenosis due to uncovertebral and facet hypertrophy. C4-C5: Mild canal stenosis due to shallow disc/osteophyte complex and dorsal ligamentous hypertrophy. No significant cord impact. Patent foramina. C5-C6: Minimal retrolisthesis and disc/osteophyte complex effacing the ventral thecal sac without cord impact. Patent foramina. C6-C7: Canal and foramina are patent. C7-T1: Canal and foramina are patent. No significant canal or foraminal stenosis in the imaged upper thoracic spine to the level of T5-6. Impression: IMPRESSION: Mild cervical spondylosis without high-grade canal or foraminal stenosis. Anatomic Variant: None. Assume 7 cervical vertebrae with counting from the craniocervical junction. Tenant Selector: [facility] Transcribe Date/Time: May 10 2020 8:36A Dictated by : MARIS REMY MD This examination was interpreted and the report reviewed and electronically signed by: MARIS REMY MD on May 10 2020 8:46AM EST X-ray Thoracic and Cervical 03/2023 RESULTS: Counting reference: Craniocervical junction.. Straightening of normal cervical lordosis. Mild amount narrowing C4/C5 moderate to marked narrowing C5/C6 disc spaces. Osteophytes anteriorly at C5-C6 and uncovertebral osteophytes at C5-C6. Less than 2 mm anterior subluxation C4 and C5. Facet degenerative changes throughout the cervical spine with hypertrophic changes at C2-C3 5. The left neural foraminal obliques are over rotated with neuroforaminal narrowing at C3/C4 and C4/C5. Neuroforaminal narrowing at C3/C4 and C4/C5 on the right. Thoracic spine counting reference: The first rib-bearing vertebral bodies considered T1. There are 12 rib-bearing vertebral bodies. Proximally 73 degree kyphosis centered at T6/T7. Vertebral bodies and pedicles are intact. Degenerative disc disease from T1/T2 13th T7/T8. 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 Electrodiagnostic Study (EMG): None Recent Labs: Creatinine Date Value Ref Range Status 11/11/2023 0.66 0.58 - 0.96 mg/dL Final No results found for: EGFR No results found for: PCGLUCOSE Current Medications, Past Medical History, Past Surgical History, Family History, Social History and Review of Systems: On today's date, noted above, I have confirmed and edited as necessary, the PFSH and ROS obtained by others. Physical Exam: There were no vitals filed for this visit. REVIEW OF SYSTEMS: GENERAL: feeling well without fatigue, no recent change in weight HEENT: denies [place], change in hearing or vision, no other ENT complaints NECK: denies swelling or pain in neck RESPIRATORY: no cough, no wheezing or shortness of breath CARDIOVASCULAR: no chest pain, no palpitations MUSCULOSKELETAL: neck pain as described above SKIN: no rash PSYCH: denies depressed or anxious mood, sleep is normal NEURO: no numbness or paresthesias and no weakness of the extremities PHYSICAL EXAMINATION: VIDEO EXAM: (if completed, performed via video enabled technology) GENERAL: alert and appropriate, in no distress, well-hydrated, well nourished, and happy, smiling, interactive SKIN: no rash noted HEAD: normocephalic, no abnormality or lesion noted EYES: no injection and visual acuity is grossly normal EARS: hearing grossly normal NOSE: external nose normal without rhinorrhea NECK:decrease ROM of cervical spine due to pain RESPIRATORY: breathing non-labored CHEST: equal chest rise with normal respiratory effort HEART: no obvious deficit BACK: back normal in appearance, spine with FROM EXTREMITIES: no obvious deficit NEUROLOGIC: head tremor noted IMPRESSION: 78 year old female presents with complaint(s) of axial neck pain, facet-mediated, myofascial overlay. She has not had sustained relief with trigger point injections. Will repeat as needed. Diagnoses: (M79.18) Myofascial pain (primary encounter diagnosis) (M47.812) Cervical spondylosis without myelopathy (G20.B1) Parkinson's disease with dyskinesia, unspecified whether manifestations fluctuate (HCC) PLAN: Lou Oliver would benefit from the following to reach personal goals for decreasing pain, improving function and work participation, and/or improving quality of life: Medications: Ibuprofen Gel Caps 400mg BID PRN (prefer smaller pills given issues swallowing, but Mobic contraindicated due to Sulfa allergy) Neurontin 100mg BID (Neurology) Lidocaine patches, 2 daily, #60 - using OTC Interventional Procedures: none Studies: None Functional Shinto: Advised soft tissue massage Referrals: No additional considerations at present Follow-up: 2 months Depending on response to the above plan, consider: Repeat RFA vs SPRINT TIME ON VISIT: Virtual visit 20 minutes Compliance and Clinic Policies Reviewed and/or Discussed Today: None Attribution: In addition to reviewing the information noted above, some elements copied from my most recent clinical note(s), including the physical exam (completed in entirety today), and the impression and plan sections, have been updated where appropriate. All reflect current medical decision making from today's date. Grace Hunt APRN.CNP Pain Management [facility] documented in this encounter [facility] 04-30-2024 Note HNO ID: [id number] Author: GRACE HUNT APRN.CNP Service: ? Author Type: Nurse Practitioner Type: Progress Notes Filed: 04/30/2024 10:27 Note Text: VIRTUAL VISIT PROGRESS NOTE This is a virtual visit using [employer] Zoom Video Visit. It required patient-provider interaction for the medical decision making as documented below. I have communicated my name and active licensure. The patient's identity and physical location were verified at the time of this visit. Either the patient or their legal outside medical sales representative has been informed of the risks and benefits of -- and alternatives to -- treatment through a remote evaluation and consents to proceed with the evaluation remotely. [facility] Today's Date: 04/30/2024 Name: Lou Oliver : 1945 Purpose: Follow-up Patient Evaluation - This is an established patient, returning today for continued evaluation and management of the chief complaint noted below Chief complaint: neck pain Pertinent Past Medical History: Migraine, Lt. Knee pain, Parkinson disease, Neck pain, Intracranial meningioma, HTN, HLD, Tachycardia, Hypothyroidism, Cervical spondylosis, Anxiety, Pes anserinus bursitis of left knee, Neck muscle weakness, Spinal stenosis of cervical region, Pertinent Past Surgeries: none Plan at last visit: Medications: Ibuprofen Gel Caps 400mg BID PRN (prefer smaller pills given issues swallowing, but Mobic contraindicated due to Sulfa allergy) Neurontin 100mg BID (Neurology) Lidocaine patches, 2 daily, #60 - using OTC Interventional Procedures: TRIGGER POINT INJECTION: Location (muscle groups): cervical paraspinals, upper traps, bilaterally Medication Injected: 0.25% Bupivacaine # Sessions Requested: 1 PURPOSE: To diagnose trigger points as a cause of patient's pain and immobility. To provide therapeutic pain relief to improve range of motion, ADL's and community participation. EXAM FINDINGS: Trigger Point Present (Hyper excitable area of the body, where the application of a stimulus provokes pain to a greater degree than the surrounding area): YES Addiction Therapist Needed: Trigger Point Injections - NO Anticoagulant - Hold Needed: N/A (Not currently on Anticoagulants) Anticoagulant - Currently Taking: None Allergies (relevant): None Scheduling - Mobility (Can Patient independently transfer on/off an OR or Procedure table?): YES (May schedule at any location) Scheduling - Additional Info: None Studies: None Functional Shinto: Advised soft tissue massage Referrals: No additional considerations at present Follow-up: 3 month Interval History: Overall pain and functional disability since last visit: Better New Complaints since last visit: No Pain Description: Timing: intermittant Character: aching and burning Primary Location: axial neck and upper traps Radiation: none Exacerbating factors: walking and lying flat Relieving factors: ice and heat, C-collar (uses sparingly) Interferes with: physical activity The patient denies difficulty with bowel or bladder control, unintentional weight loss, and fevers, chills, or night sweats. Patient stating her pain is currently managed. States she feels on a 1-10 scale her pain level in her neck is at a 2 or 3. Patient states that the pain is worse when her Parkinson's.'s are off. Patient feels the trigger point injections helped greater than the radiofrequency ablation did. Patient does not feel she needs to repeat at this time but would like to remain the patient in order to have access to more trigger point injections if needed. Current Pain Medications: Neuropathics: Gabapentin 100mg BID - for foot tingling/numbness, helps (Neurology) NSAIDS: Ibuprofen Gel Caps 400mg BID PRN (prefer smaller pills given issues swallowing, but Mobic contraindicated due to Sulfa allergy) Muscle Relaxants: Topicals: Voltaren gel, THC cream - helps a little bit, Lidocaine patches, 2 daily, #60 Other Prescription or OTC Pain Medications: Tylenol OTC Opioids (when applicable): No question data found. Tolerating Medication: Yes Medications helping improve ADL's and Self-care: Yes Anti-depressants or Mood-Stabilizers: None Anti-Coagulants: None Therapies Attended (Current or Most Recent): Physical Therapy : March - Jul, 2023 Notable Events During Course of Treatment: 07/04/2023 - Initial HPI (Obtained by Jak Diaz M.D.). Referred by Marvel Rizzo MD, for evaluation AND management of neck pain Duration: 10 years Sudden onset? no, Trauma? no Prior Treatments: Medications (See below), Modalities (eg. Heat, Ice), Physical Therapy , Home Exercise Program , and Activity Modification PT - 12 visits (04/09/2023 - 06/11/2023) Work (more content not included)... [facility] 03-25-2024 Instructions Sayra Mabry MD - 03/25/2024 2:43 PM EDT It was a pleasure to see you today. We addressed the following diagnoses: Orthostatic hypotension Syncope, unspecified syncope type Parkinson's disease with dyskinesia, unspecified whether manifestations fluctuate (hcc) My recommendations are as follows: Increase the fluids to at least 60 ounces. Gatorade is helpful too. See more tips below. Increase Florinef back to 2/day - No change to Sinemet - Continue exercise - Movement Disorders Medication Schedule: Medications 7 11 3 7 11 Sinemet IR 25/100 1 2 1.5 1 Sinemet CR 50/200 1 1 No follow-ups on file. If there are any concerns before your next visit, please call or you can send a message through [employer]. You can also now schedule and select appointments through [employer]. Sayra Mabry MD Guidelines for the Treatment of orthostatic hypotension (low blood pressure upon standing) 1. Make all postural changes from lying to sitting or sitting to standing, slowly. 2. Drink to 2.0 -2.5 L of fluids per day. 3. Increase sodium in the diet to 3 - 5 g per day. IF THIS IS OK with your medical doctor. 4. Avoid large meals which can cause low blood pressure during digestion. It is better to eat smaller meals more often than three large meals. 5. Avoid alcohol. Alcohol can cause blood to pool in the legs which may worsen low blood pressure reactions when standing. 6. Perform lower extremity exercises to improve strength of the leg muscles. This will help prevent blood from a pooling in the legs when standing and walking. 7. Raise the head of the bed by 6 to 10 inches. The entire bed must be at an angle. Raising only the head portion of the bed at waist level or using pillows will not be effective. Raising the head of the bed will reduce urine formation overnight and there will be more volume in the circulation in the morning. 8. Drink 500 cc of water quickly as soon as you wake up in the morning BEFORE you even get out of bed. This will result in an increased blood pressure within 5 minutes of drinking the water. The effect will last up to one hour and may improve orthostatic intolerance. 9. Use custom fitted elastic support stockings. These will reduce a tendency for blood to pool in the legs when standing and may improve orthostatic intolerance. These have to be Thigh-high. Compression stockings that only reach the knees are not as helpful. 10. Use physical counter maneuvers such as leg crossing, squatting, or raising and resting the leg on a chair. These maneuvers increase blood pressure. documented in this encounter [facility] 03-25-2024 Note HNO ID: [id number] Author: SAYRA MABRY MD Service: ? Author Type: Physician Type: Progress Notes Filed: 03/25/2024 15:20 Note Text: [facility] - NEW PATIENT EVALUATION Silvano Vance [address] [facility] [id number] Marvel Rizzo MD [id number] [facility] [id number] Dear Ms. Vance: Thank you for referring Ms. Oliver to our clinic today. As you know she is a 78 year old ambidextrous female who is seen in consultation for evaluation of PD since 2019. She is seen with 2 daughers. Subjective HISTORY OF PRESENT ILLNESS: Initial HPI Patient of Dr. Connolly. PCP suggested 2nd opinion. Lately main problem is syncope. Few times trouble at exercise class. Often more obvious with exercise classes. But can happen any time of the day. On Florinef and worked well for awhile. Tried twice daily and felt better but reduced it back on her own. Has compression stockings but doesn't consistently wear them. Drinks 40 ounces water per day. Doesn't eat much. Gets bloated through the day. Sees GI for chronic IBS, GERD. Falls related to low BP more than imbalance. Sinemet caused nausea from the beginning. Better lately, not as often. Now has it 4/7 days. When due for medication or shortly after she takes it. Off symptoms are also slow speech, imbalance, pain, maybe some anxiety. Off earlier today. Often linked to low BP. Not linked to BP doses. Always on for doctor visits. Takes Zofran for nausea very sparingly and it is very effective. Daughter feels she could take it more often. Also multiple GI issues. Exercises regularly at PD exercise classes in [place]. Active her whole life. Movement Disorders Medications Schedule - as of the start of the visit: Medications 7 11 3 7 11 Sinemet IR 25/100 1 2 1.5 1 Sinemet CR 50/200 1 1 Parkinson's Motor Complications Wearing off: no (Comment: mild) Dyskinesia: yes (Comment: more than before) Questionnaires: In addition, the following areas that may be affected by abnormal involuntary movements were evaluated: Daily activities Difficulties with eating: Yes (slight) Difficulties in dressing: Yes (mild) Difficulties with hygiene activities: Yes (slight) Difficulties with handwriting: Yes (slight) Difficulties with doing hobbies and other activities: Yes (mild) Difficulties turning in bed: Yes (slight) Difficulties getting out of bed, car or chair: Yes (mild) Tremors/Gait/Balance Shaking or tremors: Yes (mild) Walking and balance problems: Yes (moderate) Number of falls in the Last Month: 2019 Gait freezing: Yes (moderate) Autonomic/Pain Lightheadeness on standing: Yes (moderate) Urinary problems: Yes (mild) Constipation problems: Yes (mild) Pain and other sensations: Yes (moderate) Speech/Swallowing Speech problems: Yes (mild) Drooling: Yes (moderate) Chewing and swallowing problems: Yes (slight) Sleep/Fatigue Sleep problems: Yes (mild) Daytime sleepiness: Yes (mild) Fatigue: Yes (mild) Mood/Behavior Depression: PHQ-9 Score: 10 usually representing moderate (10-14) depression. Anxiety: DIANNE-7 Total Score: 8 usually representing mild (5-9) anxiety. Finally, the following table shows the patient's overall global physical and mental health using the PROMIS scale: PROMIS-10 Flowsheet Row Office Visit from 03/25/2024 in Neurology Office Visit from 10/25/2023 in Neurology Global Physical Health T Score 39.8 39.8 Global Mental Health T Score 45.8 43.5 0-10 Standard Pain Scale 3 3 *PROMIS-10 scoring scale: mean = 50, over 50 is above average, under 50 is below average In addition, the following Parkinson Lifestyle-associated features were evaluated: Conditions Prior to Dx: Depression: Yes Anxiety: Yes Melanoma: No Constipation: Yes Yelling: No Head Trauma: No Habits/exposures Prior to Dx Smoking: No Caffeinated coffee (1-cup+): No Caffeinated soda/tea (2 cups+): No Alcohol (1 bottle/shot/glass+): No Exercise (3x/wk+): Yes (and still do) Ibuprofen use (1x/wk+): Yes (but quit) Pesticides: Yes (but quit) Welding: No Review of Systems Review of Systems Constitutional Positive for Weight Loss Negative for Fevers, Night Sweats, Weight Gain and Fatigue Eyes Negative for Change in vison not corrected by glasses and Vision loss or change Hent Positive for Difficulty Swallowing Negative for Hearing Loss, Tinnitus and Recent change in speech or voice Cardiovascular Positive for Lightheadedness Negative for Chest Pain and Leg pain with walking Respiratory Positive for SOB at rest Negative for SOB with exertion, Cough, Wheezing and Snoring GI Positive for Constipation, Nausea/Vomiting and Heartburn Negative for Blood in Stool, Abdominal Pain and Diarrhea Negative for Urgency and Incontinence Endocrine Negative for Heat Intolerance and Excessive Thirst Musculoskeletal Negative for Back Pain, Joint Swelling, Stiff Joints and (more content not included)... [facility] 03-25-2024 History of Present illness Narrative [facility] - NEW PATIENT EVALUATION Silvano Vance [address] [facility] [id number] Marvel Rizzo MD [id number] [facility] [id number] Dear Juddorion: Thank you for referring Ms. Oliver to our clinic today. As you know she is a 78 year old ambidextrous female who is seen in consultation for evaluation of PD since 2019. She is seen with 2 daughers. Subjective HISTORY OF PRESENT ILLNESS: Initial HPI Patient of Dr. Connolly. PCP suggested 2nd opinion. Lately main problem is syncope. Few times trouble at exercise class. Often more obvious with exercise classes. But can happen any time of the day. On Florinef and worked well for awhile. Tried twice daily and felt better but reduced it back on her own. Has compression stockings but doesn't consistently wear them. Drinks 40 ounces water per day. Doesn't eat much. Gets bloated through the day. Sees GI for chronic IBS, GERD. Falls related to low BP more than imbalance. Sinemet caused nausea from the beginning. Better lately, not as often. Now has it 4/7 days. When due for medication or shortly after she takes it. Off symptoms are also slow speech, imbalance, pain, maybe some anxiety. Off earlier today. Often linked to low BP. Not linked to BP doses. Always on for doctor visits. Takes Zofran for nausea very sparingly and it is very effective. Daughter feels she could take it more often. Also multiple GI issues. Exercises regularly at PD exercise classes in [place]. Active her whole life. Movement Disorders Medications Schedule - as of the start of the visit: Medications 7 11 3 7 11 Sinemet IR 25/100 1 2 1.5 1 Sinemet CR 50/200 1 1 Parkinson's Motor Complications Wearing off: no (Comment: mild) Dyskinesia: yes (Comment: more than before) Questionnaires: In addition, the following areas that may be affected by abnormal involuntary movements were evaluated: Daily activities Difficulties with eating: Yes (slight) Difficulties in dressing: Yes (mild) Difficulties with hygiene activities: Yes (slight) Difficulties with handwriting: Yes (slight) Difficulties with doing hobbies and other activities: Yes (mild) Difficulties turning in bed: Yes (slight) Difficulties getting out of bed, car or chair: Yes (mild) Tremors/Gait/Balance Shaking or tremors: Yes (mild) Walking and balance problems: Yes (moderate) Number of falls in the Last Month: 2019 Gait freezing: Yes (moderate) Autonomic/Pain Lightheadeness on standing: Yes (moderate) Urinary problems: Yes (mild) Constipation problems: Yes (mild) Pain and other sensations: Yes (moderate) Speech/Swallowing Speech problems: Yes (mild) Drooling: Yes (moderate) Chewing and swallowing problems: Yes (slight) Sleep/Fatigue Sleep problems: Yes (mild) Daytime sleepiness: Yes (mild) Fatigue: Yes (mild) Mood/Behavior Depression: PHQ-9 Score: 10 usually representing moderate (10-14) depression. Anxiety: DIANNE-7 Total Score: 8 usually representing mild (5-9) anxiety. Finally, the following table shows the patient's overall global physical and mental health using the PROMIS scale: PROMIS-10 Flowsheet Row Office Visit from 03/25/2024 in Neurology Office Visit from 10/25/2023 in Neurology Global Physical Health T Score 39.8 39.8 Global Mental Health T Score 45.8 43.5 0-10 Standard Pain Scale 3 3 *PROMIS-10 scoring scale: mean = 50, over 50 is above average, under 50 is below average In addition, the following Parkinson Lifestyle-associated features were evaluated: Conditions Prior to Dx: Depression: Yes Anxiety: Yes Melanoma: No Constipation: Yes Yelling: No Head Trauma: No Habits/exposures Prior to Dx Smoking: No Caffeinated coffee (1-cup+): No Caffeinated soda/tea (2 cups+): No Alcohol (1 bottle/shot/glass+): No Exercise (3x/wk+): Yes (and still do) Ibuprofen use (1x/wk+): Yes (but quit) Pesticides: Yes (but quit) Welding: No Review of Systems Review of Systems Constitutional Positive for Weight Loss Negative for Fevers, Night Sweats, Weight Gain and Fatigue Eyes Negative for Change in vison not corrected by glasses and Vision loss or change Hent Positive for Difficulty Swallowing Negative for Hearing Loss, Tinnitus and Recent change in speech or voice Cardiovascular Positive for Lightheadedness Negative for Chest Pain and Leg pain with walking Respiratory Positive for SOB at rest Negative for SOB with exertion, Cough, Wheezing and Snoring GI Positive for Constipation, Nausea/Vomiting and Heartburn Negative for Blood in Stool, Abdominal Pain and Diarrhea Negative for Urgency and Incontinence Endocrine Negative for Heat Intolerance and Excessive Thirst Musculoskeletal Negative for Back Pain, Joint Swelling, Stiff Joints and Muscle Pain Integumentary Negative for Rashes, Itching, Other Lesions and Hair Changes Heme/Lymph Positive for Easy Bruising Negative for Prolonged Bleeding and Swelling of Arm or Leg Allergy/Immunologic Negative for Nasal Congestion and Swollen Nodes Neurologic Positive for Memory Problems, Headache, Double Vision and Trouble Swallowing Negative for Numbness/Tingling, Weakness and Slurred Speech Psychiatric Positive for Hallucinations Negative for Stress or Conflicts, Depression, Anxiety, Irritability and Delusions Patient's Review of Systems has been reviewed with the patient and updated as appropriate. ALLERGIES Allergen Reactions Sulfa (Sulfonamide * Hives Current Outpatient Medications Medication Sig ondansetron orally disintegrating (ZOFRAN ODT) 4 mg disintegrating tablet Take 1 tablet by mouth every 8 hours as needed for nausea/vomiting. docusate sodium (COLACE) 100 mg capsule Take 1 capsule by mouth two times a day. methylPREDNISolone (MEDROL, KATHAIRNA,) 4 mg Dose-Pack Follow dosing instructions, take with food. pravastatin (PRAVACHOL) 20 mg tablet Take 1 tablet by mouth daily at bedtime. pantoprazole DR (PROTONIX) 40 mg tablet Take 1 tablet by mouth once daily. On empty stomach at least 30 minutes before eating. carbidopa-levodopa CR (SINEMET CR) 50-200 mg per tablet TAKE 1 TABLET BY MOUTH in Morning and before bedtime as instructed. carbidopa-levodopa (SINEMET) 25-100 mg per tablet Take 1 tab at 7AM, 1.5 to 2 tabs at 11AM, 1.5 tabs at 3PM and 1 tab at 7PM. (Patient taking differently: Take 1 tab at 7AM, 2 tabs at 11AM, 1.5 tabs at 3PM and 1 tab at 7PM.) gabapentin (NEURONTIN) 100 mg capsule Take 1 capsule by mouth two times a day for 180 days. fludrocortisone (FLORINEF) 0.1 mg tablet take 1 tablet by mouth every day LORazepam (ATIVAN) 0.5 mg Take by mouth. levothyroxine (SYNTHROID) 75 mcg tablet Take 1 tablet by mouth once daily. Take on empty stomach. For Thyroid sertraline (ZOLOFT) 100 mg tablet Take 1 tablet by mouth once daily. Cholecalciferol, Vitamin D3, 50 mcg (2,000 unit) cap Take 2,000 Units by mouth once daily. diclofenac sodium (VOLTAREN) 1 % topical gel APPLY 2 GRAMS TO AFFECTED AREA 4 TIMES A DAY lidocaine (LIDODERM) 5 % Apply 2 Patches as directed once daily. Remove patch after 12 hours. (Patient not taking: Reported on 03/25/2024) No current facility-administered medications for this visit. Past Medical and Surgical History: has a past medical history of Diverticulosis of colon (without mention of hemorrhage), Essential hypertension, benign (04/04/2007), Mental disorder, Migraine without aura (04/04/2007), Parkinson disease (HCC), and Unspecified hypothyroidism (04/04/2007). has a past surgical history that includes colonoscopy flx dx w/collj spec when pfrmd (1994); past surgical history of (02/1996); delivery only (); dilation & curettage dx&/ther nonobstetric (09/1982); tonsillectomy & adenoidectomy <age 13; colonoscopy flx dx w/collj spec when pfrmd (04/07/2012); colonoscopy flx dx w/collj spec when pfrmd (06/17/2019); and egd w/o [facility] spec varicies inj (11/29/2023). Social History Tobacco Use Smoking status: Never Smokeless tobacco: Never Tobacco comments: Father smoked in childhood home. 2 spouses were smokers. Vaping Use Vaping Use: Never used Substance Use Topics Alcohol use: No Drug use: No Family History: family history includes Allergic Rhinitis in her daughter; Arthritis in her mother; Asthma in her daughter; Cancer in her father; Diabetes in her father and paternal grandmother; Emphysema in her father; Heart disease in her mother; Hypertension in her mother; Ischemic Heart Disease in her maternal grandfather; Psychiatry in her maternal grandmother. Objective Vital Signs: Ht 162.6 cm (5' 4 ) Wt 56.9 kg (125 lb 7.1 oz) SpO2 96% BMI 21.53 kg/m Orthostatic Vitals: Sitting: BP 100/62 Pulse 73 Standing: BP 94/59 Pulse 86 Weight: 56.9 kg (125 lb 7.1 oz) Height: 162.6 cm (5' 4 ) No LMP recorded. Patient is postmenopausal. Body mass index is 21.53 kg/m . General Physical Examination: General: Awake, alert, interactive, no acute distress, good nutritional status, normal development, well-kept General Neurological Examination: Neurological Exam Mental Status Awake and alert. Language is fluent with no aphasia. Motor No tremor. Very frequent dyskinesia. Assessment and Plan: Assessment Ms. Oliver is a ambidextrous 78 year old year old female with PD. Patient of Dr. Connolly referred by PCP for second opinion. Main issue lately is NOH. This is a common symptom of PD and side effect of Sinemet. Her motor symptoms are manageable. She has dyskinesia and off time which she tolerates. She may benefit from switch to Rytary vs subcutaneous levodopa infusion when it is FDA approved. Reducing Sinemet to address NOH would likely cause more off time. At some point could consider amantadine for dyskinesia and off time but it can worsen NOH too. She is losing weight which could be related to her GI issues vs excess calorie burn from dyskinesia. For now, discussed measures to improve NOH including increasing fluids and salt, abdominal binder, etc. She will resume Florinef 2/day as it is prescribed. The following are the current problems noted and addressed during this visit: Orthostatic hypotension Syncope, unspecified syncope type Parkinson's disease with dyskinesia, unspecified whether manifestations fluctuate (hcc) Plan 03/25/2024 Visit: Increase the fluids to at least 60 ounces. Gatorade is helpful too. See more tips below. Increase Florinef back to 2/day - No change to Sinemet - Continue exercise - - Updated Parkinson's Medication Schedule: Medications 7 11 3 7 11 Sinemet IR 25/100 1 2 1.5 1 Sinemet CR 50/200 1 1 Level of service: Est level 5 + 2 units [id number] (>55 min, [id number] for each 15 min > 40). Time spent 70 min on the day of service, which included preparing to see the patient, [id number] patient care, completing clinical documentation, obtaining and/or reviewing separately obtained history, and counseling and educating the patient/family/caregiver. Thank you for allowing me to be part of the clinical care of this patient! I look forward to continued participation in the patient s care with you. Please do not hesitate to call with any questions. Sincerely, Sayra Mabry MD documented in this encounter [facility] 03-23-2024 Instructions Era Gagnon PA-C - 03/23/2024 11:23 AM EDT Contact me if no improvement with Colace twice daily documented in this encounter [facility] 03-23-2024 Note HNO ID: [id number] Author: ERA GAGNON PA-C Service: ? Author Type: Physician [employer] Type: Progress Notes Filed: 03/23/2024 11:26 Note Text: CHIEF COMPLAINT: Patient presents with: Recheck: Dysphagia- pt states she is doing a little better HPI Accompanied by daughter Lou Oliver is a 78 year old female PMHx positive for Parkinson's here today for Recheck (Dysphagia- pt states she is doing a little better ). Seen previously for dysphagia. On Protonix 40 mg daily. S/P EGD w/ dilation 11/2023 with good improvement. Includes that her acid reflux has reduced. Some residual nausea, attributes this to her dopamine. Includes she only gets returning acid reflux when she is not eating. Zofran PRN helps her to eat. Weight loss of 3 lbs since last OV. Bms are persistently alternating between constipated/diarrhea, no blood. States she thinks is related to her IBS. Only taking Colace once daily. EGD 11/2023 Impression: - Tortuous esophagus. - Z-line regular, 39 cm from the incisors. - Non-obstructing and mild Schatzki ring. Dilated. - Normal stomach. Biopsied. - Normal examined duodenum. FINAL DIAGNOSIS Stomach, biopsies: - Minimal chronic gastritis. Negative for morphologic features of Helicobacter pylori on routine staining. Colon 2018 Impression: - Diverticulosis in the sigmoid colon and in the transverse colon. - Non-bleeding external and internal hemorrhoids. - No specimens collected. Cookie swallow 08/2023 Impression: 1. No evidence of aspiration 2. There appears to be marked narrowing of the distal esophagus or gastroesophageal junction. Formal esophagram recommended 3. See Speech and Hearing therapist report for further evaluation OV 10/2023 Accompanied by daughter Lou Oliver is a 78 year old female with PMHx positive for Parkinson's who presents for Trouble swallowing (Barium swallow 09/17/23. Has the most trouble swallowing water. Acid reflux concerns.). Admits to chronic sx of dysphagia since dx of Parkinson's. Feels as though sx have worsened recently. Notes sensations of dysphagia in mid-esophagus with solids. Bms are daily, chronically constipated, no blood/black coloring, drinking more water helps sx. Takes Colace PRN with relief. Regular bloating, no identifiable triggers. Unintentional weight loss of 5 lbs in the past month. Takes excedrin 3x per month for migraines. Current Outpatient Medications Medication Sig methylPREDNISolone (MEDROL, KATHARINA,) 4 mg Dose-Pack Follow dosing instructions, take with food. pravastatin (PRAVACHOL) 20 mg tablet Take 1 tablet by mouth daily at bedtime. lidocaine (LIDODERM) 5 % Apply 2 Patches as directed once daily. Remove patch after [address] (PROTONIX) 40 mg tablet Take 1 tablet by mouth once daily. On empty stomach at least 30 minutes before eating. carbidopa-levodopa CR (SINEMET CR) 50-200 mg per tablet TAKE 1 TABLET BY MOUTH in Morning and before bedtime as instructed. carbidopa-levodopa (SINEMET) 25-100 mg per tablet Take 1 tab at 7AM, 1.5 to 2 tabs at 11AM, 1.5 tabs at 3PM and 1 tab at 7PM. (Patient taking differently: Take 1 tab at 7AM, 2 tabs at 11AM, 1.5 tabs at 3PM and 1 tab at 7PM.) gabapentin (NEURONTIN) 100 mg capsule Take 1 capsule by mouth two times a day for 180 days. fludrocortisone (FLORINEF) 0.1 mg tablet take 1 tablet by mouth every day ondansetron orally disintegrating (ZOFRAN ODT) 4 mg disintegrating tablet Take 1 tablet by mouth every 6 hours as needed for nausea/vomiting. LORazepam (ATIVAN) 0.5 mg Take by mouth. levothyroxine (SYNTHROID) 75 mcg tablet Take 1 tablet by mouth once daily. Take on empty stomach. For Thyroid sertraline (ZOLOFT) 100 mg tablet Take 1 tablet by mouth once daily. Cholecalciferol, Vitamin D3, 50 mcg (2,000 unit) cap Take 2,000 Units by mouth once daily. diclofenac sodium (VOLTAREN) 1 % topical gel APPLY 2 GRAMS TO AFFECTED AREA 4 TIMES A DAY docusate sodium (COLACE ORAL) Take by mouth as needed. No current facility-administered medications for this visit. ALLERGIES Allergen Reactions Sulfa (Sulfonamide * Hives Social History Tobacco Use Smoking status: Never Smokeless tobacco: Never Tobacco comments: Father smoked in childhood home. 2 spouses were smokers. Vaping Use Vaping Use: Never used Substance Use Topics Alcohol use: No Drug use: No PAST MEDICAL HISTORY Diagnosis Date Diverticulosis of colon (without mention of hemorrhage) Essential hypertension, benign 04/04/2007 Mental disorder Migraine without aura 04/04/2007 Parkinson disease (HCC) Unspecified hypothyroidism 04/04/2007 PAST SURGICAL HISTORY Procedure Laterality Date DELIVERY ONLY , low cervical x2 COLONOSCOPY FLX DX W/COLLJ SPEC WHEN PFRMD 1994 Colonoscopy COLONOSCOPY FLX DX W/COLLJ SPEC WHEN PFRMD 04/07/2012 Colonoscopy COLONOSCOPY FLX DX W/COLLJ SPEC WHEN PFRMD 06/17/2019 Colonoscopy (more content not included)... [facility] 03-23-2024 History of Present illness Narrative CHIEF COMPLAINT: Patient presents with: Recheck: Dysphagia- pt states she is doing a little better HPI Accompanied by daughter Lou Oliver is a 78 year old female PMHx positive for Parkinson's here today for Recheck (Dysphagia- pt states she is doing a little better ). Seen previously for dysphagia. On Protonix 40 mg daily. S/P EGD w/ dilation 11/2023 with good improvement. Includes that her acid reflux has reduced. Some residual nausea, attributes this to her dopamine. Includes she only gets returning acid reflux when she is not eating. Zofran PRN helps her to eat. Weight loss of 3 lbs since last OV. Bms are persistently alternating between constipated/diarrhea, no blood. States she thinks is related to her IBS. Only taking Colace once daily. EGD 11/2023 Impression: - Tortuous esophagus. - Z-line regular, 39 cm from the incisors. - Non-obstructing and mild Schatzki ring. Dilated. - Normal stomach. Biopsied. - Normal examined duodenum. FINAL DIAGNOSIS Stomach, biopsies: - Minimal chronic gastritis. Negative for morphologic features of Helicobacter pylori on routine staining. Colon 2018 Impression: - Diverticulosis in the sigmoid colon and in the transverse colon. - Non-bleeding external and internal hemorrhoids. - No specimens collected. Cookie swallow 08/2023 Impression: 1. No evidence of aspiration 2. There appears to be marked narrowing of the distal esophagus or gastroesophageal junction. Formal esophagram recommended 3. See Speech and Hearing therapist report for further evaluation OV 10/2023 Accompanied by daughter Lou Oliver is a 78 year old female with PMHx positive for Parkinson's who presents for Trouble swallowing (Barium swallow 09/17/23. Has the most trouble swallowing water. Acid reflux concerns.). Admits to chronic sx of dysphagia since dx of Parkinson's. Feels as though sx have worsened recently. Notes sensations of dysphagia in mid-esophagus with solids. Bms are daily, chronically constipated, no blood/black coloring, drinking more water helps sx. Takes Colace PRN with relief. Regular bloating, no identifiable triggers. Unintentional weight loss of 5 lbs in the past month. Takes excedrin 3x per month for migraines. Current Outpatient Medications Medication Sig methylPREDNISolone (MEDROL, KATHARINA,) 4 mg Dose-Pack Follow dosing instructions, take with food. pravastatin (PRAVACHOL) 20 mg tablet Take 1 tablet by mouth daily at bedtime. lidocaine (LIDODERM) 5 % Apply 2 Patches as directed once daily. Remove patch after [address] (PROTONIX) 40 mg tablet Take 1 tablet by mouth once daily. On empty stomach at least 30 minutes before eating. carbidopa-levodopa CR (SINEMET CR) 50-200 mg per tablet TAKE 1 TABLET BY MOUTH in Morning and before bedtime as instructed. carbidopa-levodopa (SINEMET) 25-100 mg per tablet Take 1 tab at 7AM, 1.5 to 2 tabs at 11AM, 1.5 tabs at 3PM and 1 tab at 7PM. (Patient taking differently: Take 1 tab at 7AM, 2 tabs at 11AM, 1.5 tabs at 3PM and 1 tab at 7PM.) gabapentin (NEURONTIN) 100 mg capsule Take 1 capsule by mouth two times a day for 180 days. fludrocortisone (FLORINEF) 0.1 mg tablet take 1 tablet by mouth every day ondansetron orally disintegrating (ZOFRAN ODT) 4 mg disintegrating tablet Take 1 tablet by mouth every 6 hours as needed for nausea/vomiting. LORazepam (ATIVAN) 0.5 mg Take by mouth. levothyroxine (SYNTHROID) 75 mcg tablet Take 1 tablet by mouth once daily. Take on empty stomach. For Thyroid sertraline (ZOLOFT) 100 mg tablet Take 1 tablet by mouth once daily. Cholecalciferol, Vitamin D3, 50 mcg (2,000 unit) cap Take 2,000 Units by mouth once daily. diclofenac sodium (VOLTAREN) 1 % topical gel APPLY 2 GRAMS TO AFFECTED AREA 4 TIMES A DAY docusate sodium (COLACE ORAL) Take by mouth as needed. No current facility-administered medications for this visit. ALLERGIES Allergen Reactions Sulfa (Sulfonamide * Hives Social History Tobacco Use Smoking status: Never Smokeless tobacco: Never Tobacco comments: Father smoked in childhood home. 2 spouses were smokers. Vaping Use Vaping Use: Never used Substance Use Topics Alcohol use: No Drug use: No PAST MEDICAL HISTORY Diagnosis Date Diverticulosis of colon (without mention of hemorrhage) Essential hypertension, benign 04/04/2007 Mental disorder Migraine without aura 04/04/2007 Parkinson disease (HCC) Unspecified hypothyroidism 04/04/2007 PAST SURGICAL HISTORY Procedure Laterality Date DELIVERY ONLY , low cervical x2 COLONOSCOPY FLX DX W/COLLJ SPEC WHEN PFRMD 1994 Colonoscopy COLONOSCOPY FLX DX W/COLLJ SPEC WHEN PFRMD 04/07/2012 Colonoscopy COLONOSCOPY FLX DX W/COLLJ SPEC WHEN PFRMD 06/17/2019 Colonoscopy DILATION & CURETTAGE DX&/THER NONOBSTETRIC 09/1982 Dilation & curettage EGD W/O [facility] SPEC VARICIES INJ 11/29/2023 PAST SURGICAL HISTORY OF 02/1996 EMB TONSILLECTOMY & ADENOIDECTOMY <AGE 13 T/A (under age 13 years) FAMILY HISTORY Problem Relation Age of Onset Hypertension Mother Arthritis Mother Heart disease Mother Diabetes Father adult onset Emphysema Father Cancer Father lung Psychiatry Maternal Grandmother Ischemic Heart Disease Maternal Grandfather Diabetes Paternal Grandmother Asthma Daughter Allergic Rhinitis Daughter Colon Cancer No Family History REVIEW OF SYSTEMS Review of Systems Constitutional: Positive for activity change, appetite change, fatigue and unexpected weight change. HENT: Positive for sore throat and trouble swallowing. Respiratory: Positive for cough and choking. Cardiovascular: Positive for palpitations. Gastrointestinal: Positive for abdominal distention, constipation, diarrhea and nausea. Gas, Heartburn All other systems reviewed and are negative. PHYSICAL EXAM BP 112/70 Pulse 76 Ht 162.6 cm (5' 4 ) Wt 57.3 kg (126 lb 6.4 oz) BMI 21.70 kg/m Physical Exam Constitutional: General: She is not in acute distress. Appearance: Normal appearance. She is normal weight. She is not ill-appearing, toxic-appearing or diaphoretic. HENT: Head: Normocephalic and atraumatic. Nose: Nose normal. Eyes: General: No scleral icterus. Right eye: No discharge. Left eye: No discharge. Extraocular Movements: Extraocular movements intact. Conjunctiva/sclera: Conjunctivae normal. Pupils: Pupils are equal, round, and reactive to light. Cardiovascular: Rate and Rhythm: Normal rate and regular rhythm. Pulses: Normal pulses. Heart sounds: Normal heart sounds. No murmur heard. No friction rub. No gallop. Pulmonary: Effort: No respiratory distress. Breath sounds: Normal breath sounds. No stridor. No wheezing, rhonchi or rales. Chest: Chest wall: No tenderness. Abdominal: General: Abdomen is flat. Bowel sounds are normal. There is no distension. Palpations: Abdomen is soft. There is no mass. Tenderness: There is no abdominal tenderness. There is no right CVA tenderness, left CVA tenderness, guarding or rebound. Hernia: No hernia is present. Musculoskeletal: General: Normal range of motion. Cervical back: Normal range of motion and neck supple. Skin: General: Skin is warm and dry. Neurological: General: No focal deficit present. Mental Status: She is alert and oriented to person, place, and time. Psychiatric: Mood and Affect: Mood normal. Behavior: Behavior normal. Assessment/Plan (K21.00) Gastroesophageal reflux disease with esophagitis without hemorrhage (primary encounter diagnosis) (K22.2) Schatzki's ring (K59.09) Other constipation 1. Gastroesophageal reflux disease with esophagitis without hemorrhage - ondansetron orally disintegrating (ZOFRAN ODT) 4 mg disintegrating tablet; Take 1 tablet by mouth every 8 hours as needed for nausea/vomiting. Dispense: 30 tablet; Refill: 2 - S/P dilation 11/2023 with notable improvement - Continue Protonix 40 mg daily, Zofran PRN - Follow anti-reflux precautions 2. Schatzki's ring - As noted above 3. Other constipation - docusate sodium (COLACE) 100 mg capsule; Take 1 capsule by mouth two times a day. Dispense: 180 capsule; Refill: 2 - Limits fiber and dairy - S/Es with probiotics - May continue Gas-X PRN - Increase Colace to BID - Is to contact me if lack of improvement prior to next follow up Follow up in office 3 months/PRN. I spent a total of 20 minutes on the date of the service which included preparing to see the patient, [id number] patient care, completing clinical documentation, obtaining and/or reviewing separately obtained history, performing a medically appropriate examination, counseling and educating the patient/family/caregiver, ordering medications, tests, or procedures, communicating with other HCPs (not separately reported), independently interpreting results (not separately reported), communicating results to the patient/family/caregiver, and care coordination (not separately reported). Era Gagnon PA-C March 23, 2024 11:20 AM documented in this encounter [facility] 03-22-2024 Note HNO ID: [id number] Author: OC ROSE APRN.BUCKET PUSHER Service: ? Author Type: Nurse Practitioner Type: Progress Notes Filed: 03/22/2024 12:28 Note Text: Subjective Patient has rash yet under left eye and on right side and neck. Says it is itchy. Says she had an some poison dana. Patient also complains of a sore throat. [place] any other symptoms. The history is provided by the patient. No hourly sign language interpreter was used. Hives Review of Systems Constitutional: Negative. Skin: Negative. Objective Physical Exam Constitutional: Appearance: Normal appearance. HENT: Mouth/Throat: Mouth: Mucous membranes are moist. Pharynx: Posterior oropharyngeal erythema present. No pharyngeal swelling, oropharyngeal exudate or uvula swelling. Cardiovascular: Rate and Rhythm: Normal rate and regular rhythm. Heart sounds: Normal heart sounds. Pulmonary: Effort: Pulmonary effort is normal. Breath sounds: Normal breath sounds. Neurological: Mental Status: She is alert. PAST MEDICAL HISTORY Diagnosis Date Diverticulosis of colon (without mention of hemorrhage) Essential hypertension, benign 04/04/2007 Mental disorder Migraine without aura 04/04/2007 Parkinson disease (HCC) Unspecified hypothyroidism 04/04/2007 PAST SURGICAL HISTORY Procedure Laterality Date DELIVERY ONLY , low cervical x2 COLONOSCOPY FLX DX W/COLLJ SPEC WHEN PFRMD 1994 Colonoscopy COLONOSCOPY FLX DX W/COLLJ SPEC WHEN PFRMD 04/07/2012 Colonoscopy COLONOSCOPY FLX DX W/COLLJ SPEC WHEN PFRMD 06/17/2019 Colonoscopy DILATION AND CURETTAGE DXAND/THER NONOBSTETRIC 09/1982 Dilation AND curettage EGD W/O [facility] SPEC VARICIES INJ 11/29/2023 PAST SURGICAL HISTORY OF 02/1996 EMB TONSILLECTOMY AND ADENOIDECTOMY T/A (under age 12 years) ALLERGIES Sulfa (Sulfonamide Antibiotics) MEDICATIONS pravastatin (PRAVACHOL) 20 mg tablet Take 1 tablet by mouth daily at bedtime. lidocaine (LIDODERM) 5 % Apply 2 Patches as directed once daily. Remove patch after [address] (PROTONIX) 40 mg tablet Take 1 tablet by mouth once daily. On empty stomach at least 30 minutes before eating. carbidopa-levodopa CR (SINEMET CR) 50-200 mg per tablet TAKE 1 TABLET BY MOUTH in Morning and before bedtime as instructed. carbidopa-levodopa (SINEMET) 25-100 mg per tablet Take 1 tab at 7AM, 1.5 to 2 tabs at 11AM, 1.5 tabs at 3PM and 1 tab at 7PM. (Patient taking differently: Take 1 tab at 7AM, 2 tabs at 11AM, 1.5 tabs at 3PM and 1 tab at 7PM.) gabapentin (NEURONTIN) 100 mg capsule Take 1 capsule by mouth two times a day for 180 days. fludrocortisone (FLORINEF) 0.1 mg tablet take 1 tablet by mouth every day ondansetron orally disintegrating (ZOFRAN ODT) 4 mg disintegrating tablet Take 1 tablet by mouth every 6 hours as needed for nausea/vomiting. LORazepam (ATIVAN) 0.5 mg Take by mouth. levothyroxine (SYNTHROID) 75 mcg tablet Take 1 tablet by mouth once daily. Take on empty stomach. For Thyroid sertraline (ZOLOFT) 100 mg tablet Take 1 tablet by mouth once daily. Cholecalciferol, Vitamin D3, 50 mcg (2,000 unit) cap Take 2,000 Units by mouth once daily. diclofenac sodium (VOLTAREN) 1 % topical gel APPLY 2 GRAMS TO AFFECTED AREA 4 TIMES A DAY docusate sodium (COLACE ORAL) Take by mouth as needed. methylPREDNISolone (MEDROL, KATHARINA,) 4 mg Dose-Pack Follow dosing instructions, take with food. FAMILY HISTORY Problem Relation Age of Onset Hypertension Mother Arthritis Mother Heart disease Mother Diabetes Father adult onset Emphysema Father Cancer Father lung Psychiatry Maternal Grandmother Ischemic Heart Disease Maternal Grandfather Diabetes Paternal Grandmother Asthma Daughter Allergic Rhinitis Daughter Colon Cancer No Family History Social History Tobacco Use Smoking status: Never Smokeless tobacco: Never Tobacco comments: Father smoked in childhood home. 2 spouses were smokers. Vaping Use Vaping Use: Never used Substance Use Topics Alcohol use: No Drug use: No ASSESSMENT/PLAN: 1. Rash - ICD9: 782.1, ICD10: R21 (primary diagnosis) - METHYLPREDNISOLONE 4 MG TABLETS IN A DOSE PACK 2. Sore throat - ICD9: 462, ICD10: J02.9 - STREP A MOLECULAR (POC) - neg talked about proper use of medication supportive therapies. Patient will follow-up with signs and symptoms seem to getting worse not better. Patient was okay with this care plan. Oc Rose APRN.[facility] 03-22-2024 History of Present illness Narrative Subjective Patient has rash yet under left eye and on right side and neck. Says it is itchy. Says she had an some poison dana. Patient also complains of a sore throat. [place] any other symptoms. The history is provided by the patient. No hourly sign language interpreter was used. Hives Review of Systems Constitutional: Negative. Skin: Negative. Objective Physical Exam Constitutional: Appearance: Normal appearance. HENT: Mouth/Throat: Mouth: Mucous membranes are moist. Pharynx: Posterior oropharyngeal erythema present. No pharyngeal swelling, oropharyngeal exudate or uvula swelling. Cardiovascular: Rate and Rhythm: Normal rate and regular rhythm. Heart sounds: Normal heart sounds. Pulmonary: Effort: Pulmonary effort is normal. Breath sounds: Normal breath sounds. Neurological: Mental Status: She is alert. PAST MEDICAL HISTORY Diagnosis Date Diverticulosis of colon (without mention of hemorrhage) Essential hypertension, benign 04/04/2007 Mental disorder Migraine without aura 04/04/2007 Parkinson disease (HCC) Unspecified hypothyroidism 04/04/2007 PAST SURGICAL HISTORY Procedure Laterality Date DELIVERY ONLY , low cervical x2 COLONOSCOPY FLX DX W/COLLJ SPEC WHEN PFRMD 1994 Colonoscopy COLONOSCOPY FLX DX W/COLLJ SPEC WHEN PFRMD 04/07/2012 Colonoscopy COLONOSCOPY FLX DX W/COLLJ SPEC WHEN PFRMD 06/17/2019 Colonoscopy DILATION & CURETTAGE DX&/THER NONOBSTETRIC 09/1982 Dilation & curettage EGD W/O [facility] SPEC VARICIES INJ 11/29/2023 PAST SURGICAL HISTORY OF 02/1996 EMB TONSILLECTOMY & ADENOIDECTOMY <AGE 12 T/A (under age 13 years) ALLERGIES Sulfa (Sulfonamide Antibiotics) MEDICATIONS pravastatin (PRAVACHOL) 20 mg tablet Take 1 tablet by mouth daily at bedtime. lidocaine (LIDODERM) 5 % Apply 2 Patches as directed once daily. Remove patch after [address] (PROTONIX) 40 mg tablet Take 1 tablet by mouth once daily. On empty stomach at least 30 minutes before eating. carbidopa-levodopa CR (SINEMET CR) 50-200 mg per tablet TAKE 1 TABLET BY MOUTH in Morning and before bedtime as instructed. carbidopa-levodopa (SINEMET) 25-100 mg per tablet Take 1 tab at 7AM, 1.5 to 2 tabs at 11AM, 1.5 tabs at 3PM and 1 tab at 7PM. (Patient taking differently: Take 1 tab at 7AM, 2 tabs at 11AM, 1.5 tabs at 3PM and 1 tab at 7PM.) gabapentin (NEURONTIN) 100 mg capsule Take 1 capsule by mouth two times a day for 180 days. fludrocortisone (FLORINEF) 0.1 mg tablet take 1 tablet by mouth every day ondansetron orally disintegrating (ZOFRAN ODT) 4 mg disintegrating tablet Take 1 tablet by mouth every 6 hours as needed for nausea/vomiting. LORazepam (ATIVAN) 0.5 mg Take by mouth. levothyroxine (SYNTHROID) 75 mcg tablet Take 1 tablet by mouth once daily. Take on empty stomach. For Thyroid sertraline (ZOLOFT) 100 mg tablet Take 1 tablet by mouth once daily. Cholecalciferol, Vitamin D3, 50 mcg (2,000 unit) cap Take 2,000 Units by mouth once daily. diclofenac sodium (VOLTAREN) 1 % topical gel APPLY 2 GRAMS TO AFFECTED AREA 4 TIMES A DAY docusate sodium (COLACE ORAL) Take by mouth as needed. methylPREDNISolone (MEDROL, KATHARINA,) 4 mg Dose-Pack Follow dosing instructions, take with food. FAMILY HISTORY Problem Relation Age of Onset Hypertension Mother Arthritis Mother Heart disease Mother Diabetes Father adult onset Emphysema Father Cancer Father lung Psychiatry Maternal Grandmother Ischemic Heart Disease Maternal Grandfather Diabetes Paternal Grandmother Asthma Daughter Allergic Rhinitis Daughter Colon Cancer No Family History Social History Tobacco Use Smoking status: Never Smokeless tobacco: Never Tobacco comments: Father smoked in childhood home. 2 spouses were smokers. Vaping Use Vaping Use: Never used Substance Use Topics Alcohol use: No Drug use: No ASSESSMENT/PLAN: 1. Rash - ICD9: 782.1, ICD10: R21 (primary diagnosis) - METHYLPREDNISOLONE 4 MG TABLETS IN A DOSE PACK 2. Sore throat - ICD9: 462, ICD10: J02.9 - STREP A MOLECULAR (POC) - neg talked about proper use of medication supportive therapies. Patient will follow-up with signs and symptoms seem to getting worse not better. Patient was okay with this care plan. Oc Rose APRN.BUCKET PUSHER documented in this encounter [facility] 03-19-2024 Instructions Grace Hunt APRN.CNP - 03/19/2024 2:23 PM EDT Procedure: Other: trigger point injection Post Procedure Instructions: You may resume normal activities the day after the procedure, as tolerated., Pain should gradually subside over the next 2-3 weeks., Apply cold compresses to injection site if needed. and Increased pain the day after the procedure may occur. Please increase water intake for the next 24 hours as this will help the soreness. If you have any of the following signs or symptoms, please call our office at Fever and/or chills Swelling and/or drainage from injection site New pain that is different than your normal pain (other than soreness at the site of the procedure) Stiff neck Shortness of breath Severe increase in pain Motor dysfunctions, such as difficulty walking, bowel or bladder dysfunction and/or incontinence Headache that is severe, light sensitive or develops when changing positions (positional headache) Nausea and/or vomiting accompanied by headache that started 24-48 hours after the procedure If you have any emergent concerns, please call 911 or go to your local emergency room. Please also contact our office to let us know you will be seeking emergency care and why. documented in this encounter [facility] 03-19-2024 Note HNO ID: [id number] Author: BEULAH HUYNH MA Service: ? Author Type: Radiotelegraph Operator Type: Progress Notes Filed: 03/19/2024 14:23 Note Text: Review of Systems Constitutional: Negative for activity change, chills, fever and unexpected weight change. Gastrointestinal: Negative for bowel retention or incontinence Genitourinary: Negative for difficulty urinating. Negative for bladder retention or incontinence Musculoskeletal: Positive for arthralgias, back pain, gait problem, joint swelling, myalgias, neck pain and neck stiffness. Neurological: Negative for weakness, numbness and headaches. Psychiatric/Behavioral: Positive for dysphoric mood and sleep disturbance. Negative for suicidal ideas. The patient is nervous/anxious. [facility] 03-19-2024 History of Present illness Narrative Review of Systems Constitutional: Negative for activity change, chills, fever and unexpected weight change. Gastrointestinal: Negative for bowel retention or incontinence Genitourinary: Negative for difficulty urinating. Negative for bladder retention or incontinence Musculoskeletal: Positive for arthralgias, back pain, gait problem, joint swelling, myalgias, neck pain and neck stiffness. Neurological: Negative for weakness, numbness and headaches. Psychiatric/Behavioral: Positive for dysphoric mood and sleep disturbance. Negative for suicidal ideas. The patient is nervous/anxious. documented in this encounter [facility] 03-19-2024 Note HNO ID: [id number] Author: GRACE HUNT APRN.CNP Service: ? Author Type: Nurse Practitioner Type: Procedures Filed: 03/19/2024 14:23 Note Text: [facility], [facility] Patient name: Lou Oliver Patient Date of : 1945 Today's Date: 03/18/2024 Provider performing procedure: Grace Hunt APRN.BUCKET PUSHER Procedure: bilateral cervical paraspinals, upper trapezius Trigger Point Injection(s) Injectate: A total of 5cc of 0.25% Bupivacaine Diagnosis (Indication for procedure): Myofacial pain Comments: none HPI: Lou Oliver is an 78 year old FEMALE who presents today, in pain, for the procedure noted above. PAST MEDICAL HISTORY Diagnosis Date Diverticulosis of colon (without mention of hemorrhage) Essential hypertension, benign 04/04/2007 Mental disorder Migraine without aura 04/04/2007 Parkinson disease (HCC) Unspecified hypothyroidism 04/04/2007 PAST SURGICAL HISTORY Procedure Laterality Date DELIVERY ONLY , low cervical x2 COLONOSCOPY FLX DX W/COLLJ SPEC WHEN PFRMD 1994 Colonoscopy COLONOSCOPY FLX DX W/COLLJ SPEC WHEN PFRMD 04/07/2012 Colonoscopy COLONOSCOPY FLX DX W/COLLJ SPEC WHEN PFRMD 06/17/2019 Colonoscopy DILATION AND CURETTAGE DXAND/THER NONOBSTETRIC 09/1982 Dilation AND curettage PAST SURGICAL HISTORY OF 02/1996 EMB TONSILLECTOMY AND ADENOIDECTOMY T/A (under age 13 years) FAMILY HISTORY Problem Relation Age of Onset Hypertension Mother Arthritis Mother Heart disease Mother Diabetes Father adult onset Emphysema Father Cancer Father lung Psychiatry Maternal Grandmother Ischemic Heart Disease Maternal Grandfather Diabetes Paternal Grandmother Asthma Daughter Allergic Rhinitis Daughter Colon Cancer No Family History Social History Tobacco Use Smoking status: Never Smokeless tobacco: Never Tobacco comments: Father smoked in childhood home. 2 spouses were smokers. Vaping Use Vaping Use: Never used Substance Use Topics Alcohol use: No Drug use: No Current Outpatient Medications on File Prior to Visit Medication Sig nitrofurantoin monohydrate and macrocrystal (MACROBID) 100 mg capsule Take 1 capsule by mouth two times a day for 5 days. pravastatin (PRAVACHOL) 20 mg tablet Take 1 tablet by mouth daily at bedtime. lidocaine (LIDODERM) 5 % Apply 2 Patches as directed once daily. Remove patch after [address] (PROTONIX) 40 mg tablet Take 1 tablet by mouth once daily. On empty stomach at least 30 minutes before eating. carbidopa-levodopa CR (SINEMET CR) 50-200 mg per tablet TAKE 1 TABLET BY MOUTH in Morning and before bedtime as instructed. carbidopa-levodopa (SINEMET) 25-100 mg per tablet Take 1 tab at 7AM, 1.5 to 2 tabs at 11AM, 1.5 tabs at 3PM and 1 tab at 7PM. (Patient taking differently: Take 1 tab at 7AM, 2 tabs at 11AM, 1.5 tabs at 3PM and 1 tab at 7PM.) gabapentin (NEURONTIN) 100 mg capsule Take 1 capsule by mouth two times a day for 180 days. fludrocortisone (FLORINEF) 0.1 mg tablet take 1 tablet by mouth every day ondansetron orally disintegrating (ZOFRAN ODT) 4 mg disintegrating tablet Take 1 tablet by mouth every 6 hours as needed for nausea/vomiting. LORazepam (ATIVAN) 0.5 mg Take by mouth. levothyroxine (SYNTHROID) 75 mcg tablet Take 1 tablet by mouth once daily. Take on empty stomach. For Thyroid sertraline (ZOLOFT) 100 mg tablet Take 1 tablet by mouth once daily. Cholecalciferol, Vitamin D3, 50 mcg (2,000 unit) cap Take 2,000 Units by mouth once daily. diclofenac sodium (VOLTAREN) 1 % topical gel APPLY 2 GRAMS TO AFFECTED AREA 4 TIMES A DAY docusate sodium (COLACE ORAL) Take by mouth as needed. No current facility-administered medications on file prior to visit. ALLERGIES Allergen Reactions Sulfa (Sulfonamide * Hives Data Reviewed: Current Medications, Past Medical History, Past Surgical History, Family History, Social History and Review of Systems: On Today's date, noted in the attribution, I have confirmed and edited as necessary, the PFSH and ROS obtained by others. Objective Exam: Vitals: As per nursing documentation Constitutional: Normal Appearance, Oriented to Time, Place and Person Head: No lacerations, no external signs of trauma Eyes: Conjunctiva clear. No discharge from the eyes Cardiovascular: Appears well-perfused Pulmonary: Non-labored respirations Abdominal: Non-distended Skin: No visible rashes or ecchymosis Psychiatric: Mood appropriate for given condition Neurological: Gross movements are limited by pain, but otherwise unremarkable MSK: trigger points to palpation of the muscle groups listed above Assessment and Plan: -repeat TPIs as needed pending outcome of the TPIs done today Will have a VV in 6 weeks to discuss results of the [facility] [place] protocol documentation / Pre-Procedure Checklist: Consent: Obtained verbally prior to procedur (more content not included)... [facility] 03-19-2024 Procedure note [facility], [facility] Patient name: Lou Oliver Patient Date of : 1945 Today's Date: 03/18/2024 Provider performing procedure: Grace Hunt APRN.CNP Procedure: bilateral cervical paraspinals, upper trapezius Trigger Point Injection(s) Injectate: A total of 5cc of 0.25% Bupivacaine Diagnosis (Indication for procedure): Myofacial pain Comments: none HPI: Lou Oliver is an 78 year old FEMALE who presents today, in pain, for the procedure noted above. PAST MEDICAL HISTORY Diagnosis Date Diverticulosis of colon (without mention of hemorrhage) Essential hypertension, benign 04/04/2007 Mental disorder Migraine without aura 04/04/2007 Parkinson disease (HCC) Unspecified hypothyroidism 04/04/2007 PAST SURGICAL HISTORY Procedure Laterality Date DELIVERY ONLY , low cervical x2 COLONOSCOPY FLX DX W/COLLJ SPEC WHEN PFRMD 1994 Colonoscopy COLONOSCOPY FLX DX W/COLLJ SPEC WHEN PFRMD 04/07/2012 Colonoscopy COLONOSCOPY FLX DX W/COLLJ SPEC WHEN PFRMD 06/17/2019 Colonoscopy DILATION & CURETTAGE DX&/THER NONOBSTETRIC 09/1982 Dilation & curettage PAST SURGICAL HISTORY OF 02/1996 EMB TONSILLECTOMY & ADENOIDECTOMY T/A (under age 13 years) FAMILY HISTORY Problem Relation Age of Onset Hypertension Mother Arthritis Mother Heart disease Mother Diabetes Father adult onset Emphysema Father Cancer Father lung Psychiatry Maternal Grandmother Ischemic Heart Disease Maternal Grandfather Diabetes Paternal Grandmother Asthma Daughter Allergic Rhinitis Daughter Colon Cancer No Family History Social History Tobacco Use Smoking status: Never Smokeless tobacco: Never Tobacco comments: Father smoked in childhood home. 2 spouses were smokers. Vaping Use Vaping Use: Never used Substance Use Topics Alcohol use: No Drug use: No Current Outpatient Medications on File Prior to Visit Medication Sig nitrofurantoin monohydrate and macrocrystal (MACROBID) 100 mg capsule Take 1 capsule by mouth two times a day for 5 days. pravastatin (PRAVACHOL) 20 mg tablet Take 1 tablet by mouth daily at bedtime. lidocaine (LIDODERM) 5 % Apply 2 Patches as directed once daily. Remove patch after [address] (PROTONIX) 40 mg tablet Take 1 tablet by mouth once daily. On empty stomach at least 30 minutes before eating. carbidopa-levodopa CR (SINEMET CR) 50-200 mg per tablet TAKE 1 TABLET BY MOUTH in Morning and before bedtime as instructed. carbidopa-levodopa (SINEMET) 25-100 mg per tablet Take 1 tab at 7AM, 1.5 to 2 tabs at 11AM, 1.5 tabs at 3PM and 1 tab at 7PM. (Patient taking differently: Take 1 tab at 7AM, 2 tabs at 11AM, 1.5 tabs at 3PM and 1 tab at 7PM.) gabapentin (NEURONTIN) 100 mg capsule Take 1 capsule by mouth two times a day for 180 days. fludrocortisone (FLORINEF) 0.1 mg tablet take 1 tablet by mouth every day ondansetron orally disintegrating (ZOFRAN ODT) 4 mg disintegrating tablet Take 1 tablet by mouth every 6 hours as needed for nausea/vomiting. LORazepam (ATIVAN) 0.5 mg Take by mouth. levothyroxine (SYNTHROID) 75 mcg tablet Take 1 tablet by mouth once daily. Take on empty stomach. For Thyroid sertraline (ZOLOFT) 100 mg tablet Take 1 tablet by mouth once daily. Cholecalciferol, Vitamin D3, 50 mcg (2,000 unit) cap Take 2,000 Units by mouth once daily. diclofenac sodium (VOLTAREN) 1 % topical gel APPLY 2 GRAMS TO AFFECTED AREA 4 TIMES A DAY docusate sodium (COLACE ORAL) Take by mouth as needed. No current facility-administered medications on file prior to visit. ALLERGIES Allergen Reactions Sulfa (Sulfonamide * Hives Data Reviewed: Current Medications, Past Medical History, Past Surgical History, Family History, Social History and Review of Systems: On Today's date, noted in the attribution, I have confirmed and edited as necessary, the PFSH and ROS obtained by others. Objective Exam: Vitals: As per nursing documentation Constitutional: Normal Appearance, Oriented to Time, Place and Person Head: No lacerations, no external signs of trauma Eyes: Conjunctiva clear. No discharge from the eyes Cardiovascular: Appears well-perfused Pulmonary: Non-labored respirations Abdominal: Non-distended Skin: No visible rashes or ecchymosis Psychiatric: Mood appropriate for given condition Neurological: Gross movements are limited by pain, but otherwise unremarkable MSK: trigger points to palpation of the muscle groups listed above Assessment and Plan: -repeat TPIs as needed pending outcome of the TPIs done today Will have a VV in 6 weeks to discuss results of the [facility] [place] protocol documentation / Pre-Procedure Checklist: Consent: Obtained verbally prior to procedure I had a nice discussion with the patient today about their current pain and the pathology that could be causing it We discussed different treatment options, including risks, benefits and alternatives. We agreed to proceed as previously discussed, or the plan was modified in accordance with the comments noted above Patient identifiers, including name and date of , were confirmed After discussing risks and benefits, reviewing patient's allergy list to ensure all medications being given are tolerated to the best of our known information, the in-office procedure of Trigger Point Injections was performed at the locations noted above. The region(s) noted above were prepped using sterile technique. A 1.5 inch 25 gauge needle was used to multiple areas of muscle spasm using dry needle technique. The medication noted above was injected in equal parts at 8 total site(s) within the region(s) mentioned above. All points elicited local twitch responses which softened after the injection. After careful removal of the needle, there was minimal bleeding. The injection site was covered with appropriate sterile dressing where needed. The patient was noted to have tolerated the procedure well and was discharged after an appropriate period of post-procedure observation. The patient was instructed to contact us if there were any complications. The patient was advised to follow-up with the requesting physician within one to two weeks or as per their requested follow-up plan. Post procedure visit summary with written instructions was offered to the patient. Grace Hunt APRN.CNP Pain Management [facility] 03-19-2024 Procedure note [facility] Patient name: Lou Oliver Patient Date of : 1945 Today's Date: 03/18/2024 Provider performing procedure: Grace Hunt APRN.BUCKET PUSHER Procedure: bilateral cervical paraspinals, upper trapezius Trigger Point Injection(s) Injectate: A total of 5cc of 0.25% Bupivacaine Diagnosis (Indication for procedure): Myofacial pain Comments: none HPI: Lou Oliver is an 78 year old FEMALE who presents today, in pain, for the procedure noted above. PAST MEDICAL HISTORY Diagnosis Date Diverticulosis of colon (without mention of hemorrhage) Essential hypertension, benign 04/04/2007 Mental disorder Migraine without aura 04/04/2007 Parkinson disease (HCC) Unspecified hypothyroidism 04/04/2007 PAST SURGICAL HISTORY Procedure Laterality Date DELIVERY ONLY , low cervical x2 COLONOSCOPY FLX DX W/COLLJ SPEC WHEN PFRMD 1994 Colonoscopy COLONOSCOPY FLX DX W/COLLJ SPEC WHEN PFRMD 04/07/2012 Colonoscopy COLONOSCOPY FLX DX W/COLLJ SPEC WHEN PFRMD 06/17/2019 Colonoscopy DILATION & CURETTAGE DX&/THER NONOBSTETRIC 09/1982 Dilation & curettage PAST SURGICAL HISTORY OF 02/1996 EMB TONSILLECTOMY & ADENOIDECTOMY <AGE 12 T/A (under age 12 years) FAMILY HISTORY Problem Relation Age of Onset Hypertension Mother Arthritis Mother Heart disease Mother Diabetes Father adult onset Emphysema Father Cancer Father lung Psychiatry Maternal Grandmother Ischemic Heart Disease Maternal Grandfather Diabetes Paternal Grandmother Asthma Daughter Allergic Rhinitis Daughter Colon Cancer No Family History Social History Tobacco Use Smoking status: Never Smokeless tobacco: Never Tobacco comments: Father smoked in childhood home. 2 spouses were smokers. Vaping Use Vaping Use: Never used Substance Use Topics Alcohol use: No Drug use: No Current Outpatient Medications on File Prior to Visit Medication Sig nitrofurantoin monohydrate and macrocrystal (MACROBID) 100 mg capsule Take 1 capsule by mouth two times a day for 5 days. pravastatin (PRAVACHOL) 20 mg tablet Take 1 tablet by mouth daily at bedtime. lidocaine (LIDODERM) 5 % Apply 2 Patches as directed once daily. Remove patch after [address] (PROTONIX) 40 mg tablet Take 1 tablet by mouth once daily. On empty stomach at least 30 minutes before eating. carbidopa-levodopa CR (SINEMET CR) 50-200 mg per tablet TAKE 1 TABLET BY MOUTH in Morning and before bedtime as instructed. carbidopa-levodopa (SINEMET) 25-100 mg per tablet Take 1 tab at 7AM, 1.5 to 2 tabs at 11AM, 1.5 tabs at 3PM and 1 tab at 7PM. (Patient taking differently: Take 1 tab at 7AM, 2 tabs at 11AM, 1.5 tabs at 3PM and 1 tab at 7PM.) gabapentin (NEURONTIN) 100 mg capsule Take 1 capsule by mouth two times a day for 180 days. fludrocortisone (FLORINEF) 0.1 mg tablet take 1 tablet by mouth every day ondansetron orally disintegrating (ZOFRAN ODT) 4 mg disintegrating tablet Take 1 tablet by mouth every 6 hours as needed for nausea/vomiting. LORazepam (ATIVAN) 0.5 mg Take by mouth. levothyroxine (SYNTHROID) 75 mcg tablet Take 1 tablet by mouth once daily. Take on empty stomach. For Thyroid sertraline (ZOLOFT) 100 mg tablet Take 1 tablet by mouth once daily. Cholecalciferol, Vitamin D3, 50 mcg (2,000 unit) cap Take 2,000 Units by mouth once daily. diclofenac sodium (VOLTAREN) 1 % topical gel APPLY 2 GRAMS TO AFFECTED AREA 4 TIMES A DAY docusate sodium (COLACE ORAL) Take by mouth as needed. No current facility-administered medications on file prior to visit. ALLERGIES Allergen Reactions Sulfa (Sulfonamide * Hives Data Reviewed: Current Medications, Past Medical History, Past Surgical History, Family History, Social History and Review of Systems: On Today's date, noted in the attribution, I have confirmed and edited as necessary, the PFSH and ROS obtained by others. Objective Exam: Vitals: As per nursing documentation Constitutional: Normal Appearance, Oriented to Time, Place and Person Head: No lacerations, no external signs of trauma Eyes: Conjunctiva clear. No discharge from the eyes Cardiovascular: Appears well-perfused Pulmonary: Non-labored respirations Abdominal: Non-distended Skin: No visible rashes or ecchymosis Psychiatric: Mood appropriate for given condition Neurological: Gross movements are limited by pain, but otherwise unremarkable MSK: trigger points to palpation of the muscle groups listed above Assessment and Plan: -repeat TPIs as needed pending outcome of the TPIs done today Will have a VV in 6 weeks to discuss results of the TPI [place] protocol documentation / Pre-Procedure Checklist: Consent: Obtained verbally prior to procedure I had a nice discussion with the patient today about their current pain and the pathology that could be causing it We discussed different treatment options, including risks, benefits and alternatives. We agreed to proceed as previously discussed, or the plan was modified in accordance with the comments noted above Patient identifiers, including name and date of , were confirmed After discussing risks and benefits, reviewing patient's allergy list to ensure all medications being given are tolerated to the best of our known information, the in-office procedure of Trigger Point Injections was performed at the locations noted above. The region(s) noted above were prepped using sterile technique. A 1.5 inch 25 gauge needle was used to multiple areas of muscle spasm using dry needle technique. The medication noted above was injected in equal parts at 8 total site(s) within the region(s) mentioned above. All points elicited local twitch responses which softened after the injection. After careful removal of the needle, there was minimal bleeding. The injection site was covered with appropriate sterile dressing where needed. The patient was noted to have tolerated the procedure well and was discharged after an appropriate period of post-procedure observation. The patient was instructed to contact us if there were any complications. The patient was advised to follow-up with the requesting physician within one to two weeks or as per their requested follow-up plan. Post procedure visit summary with written instructions was offered to the patient. Grace Hunt APRN.[facility] Pain [facility] documented in this encounter [facility] 03-13-2024 Telephone encounter Note Patient returned call and given provider's message below and patient verbalized understanding. Nathalia Gomez RN [facility] 03-13-2024 Miscellaneous Notes Patient returned call and given provider's message below and patient verbalized understanding. Nathalia Gomez RN Left message for patient to return call. Constance Whitfield LPN Please call and let patient know that the antibiotic was changed to Macrobid twice a day for 5 days. Patient should discontinue the other antibiotic. If patient's symptoms do not improve patient needs to follow-up with primary care. documented in this encounter [facility] 03-13-2024 Telephone encounter Note Left message for patient to return call. Constance Whitfield LPN [facility] 03-13-2024 Telephone encounter Note Please call and let patient know that the antibiotic was changed to Macrobid twice a day for 5 days. Patient should discontinue the other antibiotic. If patient's symptoms do not improve patient needs to follow-up with primary care. [facility] 03-11-2024 Note HNO ID: [id number] Author: PAULA PACHECO APRN.ADRIANNA Service: ? Author Type: Nurse Practitioner Type: Progress Notes Filed: 03/11/2024 10:46 Note Text: This note was created using NoteWriter. Subjective Lou Oliver is a 78 year old female. 78 year old female with PMH Parkinsons, thyroid, migraine presents for UTI Acute onset 4 to 5 days ago +dysuria +frequency +hesitancy Endorses she has a history of stomach issues and she had recent bout of diarrhea And I sometimes get these Denies vaginal bleeding. Denies vaginal discharge Denies abdominal pain Denies skin rash or lesions. Denies fever or chills. Denies concerns for STI. The history is provided by the patient. No hourly sign language interpreter was used. UTI This is a new problem. The current episode started more than 2 days ago. The problem occurs every urination. The problem has not changed since onset.The quality of the pain is described as burning. The pain is at a severity of 5/10. The pain is moderate. There has been no fever. She is Not sexually active. There is No history of pyelonephritis. Associated symptoms include frequency, hesitancy and urgency. Pertinent negatives include no chills, no sweats, no nausea, no vomiting, no discharge, no hematuria, no possible and no flank pain. She has tried nothing for the symptoms. Her past medical history does not include kidney stones, single kidney, urological procedure, recurrent UTIs, urinary stasis or catheterization. PAST MEDICAL HISTORY Diagnosis Date Diverticulosis of colon (without mention of hemorrhage) Essential hypertension, benign 04/04/2007 Mental disorder Migraine without aura 04/04/2007 Parkinson disease (HCC) Unspecified hypothyroidism 04/04/2007 PAST SURGICAL HISTORY Procedure Laterality Date DELIVERY ONLY , low cervical x2 COLONOSCOPY FLX DX W/COLLJ SPEC WHEN PFRMD 1994 Colonoscopy COLONOSCOPY FLX DX W/COLLJ SPEC WHEN PFRMD 04/07/2012 Colonoscopy COLONOSCOPY FLX DX W/COLLJ SPEC WHEN PFRMD 06/17/2019 Colonoscopy DILATION AND CURETTAGE DXAND/THER NONOBSTETRIC 09/1982 Dilation AND curettage PAST SURGICAL HISTORY OF 02/1996 EMB TONSILLECTOMY AND ADENOIDECTOMY T/A (under age 12 years) ALLERGIES Sulfa (Sulfonamide Antibiotics) MEDICATIONS pravastatin (PRAVACHOL) 20 mg tablet Take 1 tablet by mouth daily at bedtime. lidocaine (LIDODERM) 5 % Apply 2 Patches as directed once daily. Remove patch after [address] (PROTONIX) 40 mg tablet Take 1 tablet by mouth once daily. On empty stomach at least 30 minutes before eating. carbidopa-levodopa CR (SINEMET CR) 50-200 mg per tablet TAKE 1 TABLET BY MOUTH in Morning and before bedtime as instructed. carbidopa-levodopa (SINEMET) 25-100 mg per tablet Take 1 tab at 7AM, 1.5 to 2 tabs at 11AM, 1.5 tabs at 3PM and 1 tab at 7PM. (Patient taking differently: Take 1 tab at 7AM, 2 tabs at 11AM, 1.5 tabs at 3PM and 1 tab at 7PM.) gabapentin (NEURONTIN) 100 mg capsule Take 1 capsule by mouth two times a day for 180 days. fludrocortisone (FLORINEF) 0.1 mg tablet take 1 tablet by mouth every day ondansetron orally disintegrating (ZOFRAN ODT) 4 mg disintegrating tablet Take 1 tablet by mouth every 6 hours as needed for nausea/vomiting. LORazepam (ATIVAN) 0.5 mg Take by mouth. levothyroxine (SYNTHROID) 75 mcg tablet Take 1 tablet by mouth once daily. Take on empty stomach. For Thyroid Cholecalciferol, Vitamin D3, 50 mcg (2,000 unit) cap Take 2,000 Units by mouth once daily. diclofenac sodium (VOLTAREN) 1 % topical gel APPLY 2 GRAMS TO AFFECTED AREA 4 TIMES A DAY docusate sodium (COLACE ORAL) Take by mouth as needed. cephALEXin (KEFLEX) 500 mg capsule Take 1 capsule by mouth two times a day for 7 days. sertraline (ZOLOFT) 100 mg tablet Take 1 tablet by mouth once daily. FAMILY HISTORY Problem Relation Age of Onset Hypertension Mother Arthritis Mother Heart disease Mother Diabetes Father adult onset Emphysema Father Cancer Father lung Psychiatry Maternal Grandmother Ischemic Heart Disease Maternal Grandfather Diabetes Paternal Grandmother Asthma Daughter Allergic Rhinitis Daughter Colon Cancer No Family History Social History Tobacco Use Smoking status: Never Smokeless tobacco: Never Tobacco comments: Father smoked in childhood home. 2 spouses were smokers. Vaping Use Vaping Use: Never used Substance Use Topics Alcohol use: No Drug use: No Review of Systems Constitutional: Negative for chills. Respiratory: Negative for apnea, choking and chest tightness. Cardiovascular: Negative for chest pain, palpitations and leg swelling. Gastrointestinal: Positive for diarrhea. Negative for abdominal pain, nausea and vomiting. Genitourinary: Positive for dysuria, frequency, hesitancy and urgency. Negative for flank pain and hematuria. Musculoskeletal: Negative for arthralgias and back pain. Sk (more content not included)... [facility] 02-27-2024 Note HNO ID: [id number] Author: BEULAH HUYNH MA Service: ? Author Type: Radiotelegraph Operator Type: Progress Notes Filed: 02/27/2024 13:10 Note Text: Review of Systems Constitutional: Negative for activity change, chills, fever and unexpected weight change. Gastrointestinal: Negative for bowel retention or incontinence Genitourinary: Negative for difficulty urinating. Negative for bladder retention or incontinence Musculoskeletal: Positive for arthralgias, gait problem, joint swelling, myalgias, neck pain and neck stiffness. Negative for back pain. Neurological: Negative for weakness, numbness and headaches. Psychiatric/Behavioral: Negative for dysphoric mood, sleep disturbance and suicidal ideas. The patient is not nervous/anxious. [facility] 02-27-2024 History of Present illness Narrative Review of Systems Constitutional: Negative for activity change, chills, fever and unexpected weight change. Gastrointestinal: Negative for bowel retention or incontinence Genitourinary: Negative for difficulty urinating. Negative for bladder retention or incontinence Musculoskeletal: Positive for arthralgias, gait problem, joint swelling, myalgias, neck pain and neck stiffness. Negative for back pain. Neurological: Negative for weakness, numbness and headaches. Psychiatric/Behavioral: Negative for dysphoric mood, sleep disturbance and suicidal ideas. The patient is not nervous/anxious. Images from the original note were not included. [facility] Today's Date: 02/27/2024 Last visit: 11/28/2023 Name: Lou Oliver : 1945 Purpose: Follow-up Patient Evaluation - This is an established patient, returning today for continued evaluation and management of the chief complaint noted below Chief complaint: neck pain Referring Clinician: Marvel Rizzo MD Pertinent Past Medical History: Migraine, Lt. Knee pain, Parkinson disease, Neck pain, Intracranial meningioma, HTN, HLD, Tachycardia, Hypothyroidism, Cervical spondylosis, Anxiety, Pes anserinus bursitis of left knee, Neck muscle weakness, Spinal stenosis of cervical region, Pertinent Past Surgeries: none Plan at last visit: Medications: Ibuprofen Gel Caps 400mg BID PRN (prefer smaller pills given issues swallowing, but Mobic contraindicated due to Sulfa allergy) Neurontin 100mg BID Lidocaine patches, 2 daily, #60 Functional Shinto: Advised soft tissue massage Referrals: No additional considerations at present Follow-up: 3 months Depending on response to the above plan, consider: Repeat RFA vs SPRINT Interval History: Overall pain and functional disability since last visit: Better New Complaints since last visit: No She reports that her neck pain overall has been better since the ablation. However, on days when her Parkinson's symptoms are flared-up, or in between doses of medication, she has more pain. Her family notes that she is sitting more upright most days. She also finds that her pain worsens as the day progresses, typically after 430pm. She reports her Dopaminergic medications have been adjusted by her Parkinson's doctor. She is able to garden and be more active around the house. However, she still is unable to go for long walks. Pain Description: Timing: intermittant Character: aching and burning Primary Location: axial neck and upper traps Radiation: none Exacerbating factors: walking and lying flat Relieving factors: ice and heat, C-collar (uses sparingly) Interferes with: physical activity The patient denies difficulty with bowel or bladder control, unintentional weight loss, and fevers, chills, or night sweats. Post RFA MOUNIKA: Pain level: 2/10 (on good days) Pain Intensity 0 Personal Care (Washing/Dressing) 0 - I can look after myself normally without causing extra pain Lifting 2 - Pain prevents me from lifting heavy weights off the floor, but I can manage if conveniently positioned (e.g. on a table) Walking 2 Sitting 2 Standing 2 Sleeping 0 - Pain does not prevent me from sleeping well Sex Life 0 - My sex life is normal and causes no pain Social Life 2 Traveling 3 Total Score 13 Interpretation 0-20% - mild disability Current Pain Medications: Neuropathics: Gabapentin 100mg BID - for foot tingling/numbness, helps (Neurology) NSAIDS: Ibuprofen Gel Caps 400mg BID PRN (prefer smaller pills given issues swallowing, but Mobic contraindicated due to Sulfa allergy) Muscle Relaxants: Topicals: Voltaren gel, THC cream - helps a little bit, Lidocaine patches, 2 daily, #60 Other Prescription or OTC Pain Medications: Tylenol OTC Opioids (when applicable): No question data found. Tolerating Medication: Yes Medications helping improve ADL's and Self-care: Yes Anti-depressants or Mood-Stabilizers: None Anti-Coagulants: None Therapies Attended (Current or Most Recent): Physical Therapy : March - Jul, 2023 Notable Events During Course of Treatment: 07/04/2023 - Initial HPI (Obtained by Jak Diaz M.D.). Referred by Marvel Rizzo MD, for evaluation & management of neck pain Duration: 10 years Sudden onset? no, Trauma? no Prior Treatments: Medications (See below), Modalities (eg. Heat, Ice), Physical Therapy , Home Exercise Program , and Activity Modification PT - 12 visits (04/09/2023 - 06/11/2023) Worked for years at a [employer], reports she frequently hunched in her job Seen previously (last on ) by an Anesthesia Pain Physician. She had trigger point injections multiple times, without sustained relief. This is her first evaluation by a PM&R Pain Physician. Takes Tylenol OTC, minimal relief Has Parkinson's Treatment History: PAIN PROCEDURES: DATE PROCEDURE IMPROVEMENT 10/02/2023 RFA, Bilat C4-5 and C5-6 >50% (02/27/2024) 08/17/2021 TPI 50% relief x 6 weeks MEDICATIONS Taken TO DATE (for the chief complaint(s)): Neuropathics: Neurontin (Gabapentin) NSAIDS: Naprosyn (Naproxen), Mobic (Meloxicam) Muscle Relaxants: Zanaflex (Tizanidine) Topicals: Voltaren (Gel) Other Prescription or OTC Pain Medications: Tylenol (Acetaminophen), Sinemet, Florinef, Ativan, Opioids: None Data Reviewed Today: Allergies: ALLERGIES Allergen Reactions Sulfa (Sulfonamide * Hives Social History Tobacco Use Smoking status: Never Smokeless tobacco: Never Tobacco comments: Father smoked in childhood home. 2 spouses were smokers. Vaping Use Vaping Use: Never used Substance Use Topics Alcohol use: No Drug use: No 01/13/2024 02/22/2024 INTAKE PAIN ASSESSMENT Are you having pain associated with your visit today? No Yes, Provider notified Pain Scales Verbal (Numeric Rating or Visual Analog Scale) Pain Level 3 Pain Location Neck-Posterior Description Cramping;Aching;Sore Duration Units Years Frequency Continuous Intervention/Comfort measure Reposition;Relaxation;Declined;Pos itioning Compliance: PDMP website checked and validated on 02/27/2024 by Jak Diaz MD All prescriptions have been APPROPRIATELY filled. No suspicious activity was identified. 05/12/2020 06/22/2021 07/04/2023 AG SPINE COMBINATION Questionnaire GREENLIGHT GREENLIGHT Completed Date 05/12/2020 07/04/2023 Questionnaire Opiod Risk Tool Opiod Risk Tool Opiod Risk Tool Completed Date 05/12/2020 06/22/2021 07/04/2023 (All drug screens are appropriate unless indicated otherwise) Risk Assessment: DIANNE-7: 07/04/2023 10/22/2023 11/30/2023 DIANNE - 7 SCORES Score 8 7 7 (0-4) minimal anxiety, (5-9) mild anxiety, (10-14) moderate anxiety, (15-21) severe anxiety PHQ-9: 07/04/2023 10/22/2023 11/30/2023 PHQ-9 Score 8 8 8 (0-4) minimal depression, (5-9) mild depression, (10-14) moderate depression, (15-19) moderately severe depression, (20-27) severe depression Diagnostic Studies: Relevant Imaging: MRI Spine Report MRI CERVICAL SPINE WO IVCON Exam End: 05/10/2020 8:23 AM (Final result) Narrative: * * *Final Report* * * DATE OF EXAM: May 10 2020 8:15AM REMA Vuong - MRI CERVICAL SPINE WO IVCON / PROCEDURE REASON: multiple diagnoses * * * * Physician Interpretation * * * * EXAMINATION: MRI CERVICAL SPINE WO IVCON CLINICAL HISTORY: Spinal stenosis of cervical region - Cervicalgia - Spinal stenosis, spondylolisthesis, torticollis, radiculopathy, trauma - C-spine stenosis, Neck pain, chronic, mechanical TECHNIQUE: Routine cervical spine MR protocol without gadolinium. MQ: [id number] COMPARISON: Cervical spine radiographs 04/06/2020 RESULT: Counting reference: Craniocervical junction. Anatomic Variants: None. Alignment: Straightening of the cervical lordosis with trace grade 1 degenerative spondylolisthesis at C4-5, and minimal retrolisthesis at C5-6. Moderate intervertebral disc space narrowing at C4-5. Craniocervical junction: Craniocervical junction is normal. Cord: Minimal cord abutment at C4-5 due to spondylotic changes, further detailed below. No intramedullary signal abnormality. Bone marrow signal/fracture: Patchy likely reactive marrow edema at the left C3-4 facet joint. No evidence of confluent abnormal marrow replacement or an acute fracture. Small T1/T2 hyperintense lesion suggesting small intraosseous hemangioma within the left T5 pedicle and articular facets. Cervical soft tissues: The paraspinal soft tissues are within normal limits. C2-C3: Shallow disc bulging partially effacing the ventral thecal sac without cord contact. Patent foramina. C3-C4: Small central disc protrusion partially effacing the ventral thecal sac without cord impact. Mild bilateral foraminal stenosis due to uncovertebral and facet hypertrophy. C4-C5: Mild canal stenosis due to shallow disc/osteophyte complex and dorsal ligamentous hypertrophy. No significant cord impact. Patent foramina. C5-C6: Minimal retrolisthesis and disc/osteophyte complex effacing the ventral thecal sac without cord impact. Patent foramina. C6-C7: Canal and foramina are patent. C7-T1: Canal and foramina are patent. No significant canal or foraminal stenosis in the imaged upper thoracic spine to the level of T5-6. Impression: IMPRESSION: Mild cervical spondylosis without high-grade canal or foraminal stenosis. Anatomic Variant: None. Assume 7 cervical vertebrae with counting from the craniocervical junction. Tenant Selector[facility] Transcribe Date/Time: May 10 2020 8:36A Dictated by : MARIS REMY MD This examination was interpreted and the report reviewed and electronically signed by: MARIS REMY MD on May 10 2020 8:46AM EST X-ray Thoracic and Cervical 03/2023 RESULTS: Counting reference: Craniocervical junction.. Straightening of normal cervical lordosis. Mild amount narrowing C4/C5 moderate to marked narrowing C5/C6 disc spaces. Osteophytes anteriorly at C5-C6 and uncovertebral osteophytes at C5-C6. Less than 2 mm anterior subluxation C4 and C5. Facet degenerative changes throughout the cervical spine with hypertrophic changes at C2-C3 5. The left neural foraminal obliques are over rotated with neuroforaminal narrowing at C3/C4 and C4/C5. Neuroforaminal narrowing at C3/C4 and C4/C5 on the right. Thoracic spine counting reference: The first rib-bearing vertebral bodies considered T1. There are 12 rib-bearing vertebral bodies. Proximally 73 degree kyphosis centered at T6/T7. Vertebral bodies and pedicles are intact. Degenerative disc disease from T1/T2 13th T7/T8. 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 Electrodiagnostic Study (EMG): None Recent Labs: Creatinine Date Value Ref Range Status 11/11/2023 0.66 0.58 - 0.96 mg/dL Final No results found for: EGFR No results found for: PCGLUCOSE Current Medications, Past Medical History, Past Surgical History, Family History, Social History and Review of Systems: On today's date, noted above, I have confirmed and edited as necessary, the PFSH and ROS obtained by others. Physical Exam: 02/27/24 1258 Pulse: 79 Resp: 16 SpO2: 95% Neuro-Upper: Sensation: Grossly intact to light touch in both upper limbs (C5-T1) dermatomes Strength: Deltoid (C5): 5 left, 5 Right Biceps (C6): 5 left, 5 Right Triceps (C7): 5 left, 5 Right Wrist Extensors (C8): 5 left, 5 Right Abduct. Pollicis Brevis (T1): 5 left, 5 Right Muscle Tone: Normal and symmetric throughout, without clonus Reflexes: Increased 3+ and symmetric biceps, triceps, brachioradialis Eisenberg: Negative (Normal) bilaterally Musculoskeletal-Upper: Inspection: Symmetric without atrophy Palpation: Cervical Paraspinal Tenderness: Concordant Greater Occipital Nerves: no tenderness in overlying tissue Paraspinal spasm: Moderate Range of Motion: Flexion/Extension: Decreased 50% With end range pain Lateral Bending: Decreased 50% With end range pain Lateral Rotation: Decreased 50% With end range pain IMPRESSION: 78 year old female presents with complaint(s) of axial neck pain, facet-mediated, myofascial overlay. She has not had sustained relief with trigger point injections. Has completed course of PT without improvement. Now s/p RFA, with significantly improved neck pain, except during flare-ups. There is some residual myofascial pain that may respond to trigger point injections now that the facet-mediated pain is better-controlled. Diagnoses: (M47.812) Cervical spondylosis without myelopathy (primary encounter diagnosis) (M79.18) Myofascial pain PLAN: Lou Oliver would benefit from the following to reach personal goals for decreasing pain, improving function and work participation, and/or improving quality of life: Medications: Ibuprofen Gel Caps 400mg BID PRN (prefer smaller pills given issues swallowing, but Mobic contraindicated due to Sulfa allergy) Neurontin 100mg BID (Neurology) Lidocaine patches, 2 daily, #60 - using OTC Interventional Procedures: TRIGGER POINT INJECTION: Location (muscle groups): cervical paraspinals, upper traps, bilaterally Medication Injected: 0.25% Bupivacaine # Sessions Requested: 1 PURPOSE: To diagnose trigger points as a cause of patient's pain and immobility. To provide therapeutic pain relief to improve range of motion, ADL's and community participation. EXAM FINDINGS: Trigger Point Present (Hyper excitable area of the body, where the application of a stimulus provokes pain to a greater degree than the surrounding area): YES Addiction Therapist Needed: Trigger Point Injections - NO Anticoagulant - Hold Needed: N/A (Not currently on Anticoagulants) Anticoagulant - Currently Taking: None Allergies (relevant): None Scheduling - Mobility (Can Patient independently transfer on/off an OR or Procedure table?): YES (May schedule at any location) Scheduling - Additional Info: None Studies: None Functional Shinto: Advised soft tissue massage Referrals: No additional considerations at present Follow-up: 3 months Depending on response to the above plan, consider: Repeat RFA vs SPRINT Compliance and Clinic Policies Reviewed and/or Discussed Today: None Attribution: In addition to reviewing the information noted above, some elements copied from my most recent clinical note(s), including the physical exam (completed in entirety today), and the impression and plan sections, have been updated where appropriate. All reflect current medical decision making from today's date. Jak Diaz MD Pain Management [facility] documented in this encounter [facility] 02-26-2024 Note HNO ID: [id number] Author: JAK DIAZ MD Service: ? Author Type: Physician Type: Progress Notes Filed: 02/27/2024 13:10 Note Text: [facility] Today's Date: 02/27/2024 Last visit: 11/28/2023 Name: Lou Oliver : 1945 Purpose: Follow-up Patient Evaluation - This is an established patient, returning today for continued evaluation and management of the chief complaint noted below Chief complaint: neck pain Referring Clinician: Marvel Rizzo MD Pertinent Past Medical History: Migraine, Lt. Knee pain, Parkinson disease, Neck pain, Intracranial meningioma, HTN, HLD, Tachycardia, Hypothyroidism, Cervical spondylosis, Anxiety, Pes anserinus bursitis of left knee, Neck muscle weakness, Spinal stenosis of cervical region, Pertinent Past Surgeries: none Plan at last visit: Medications: Ibuprofen Gel Caps 400mg BID PRN (prefer smaller pills given issues swallowing, but Mobic contraindicated due to Sulfa allergy) Neurontin 100mg BID Lidocaine patches, 2 daily, #60 Functional Shinto: Advised soft tissue massage Referrals: No additional considerations at present Follow-up: 3 months Depending on response to the above plan, consider: Repeat RFA vs SPRINT Interval History: Overall pain and functional disability since last visit: Better New Complaints since last visit: No She reports that her neck pain overall has been better since the ablation. However, on days when her Parkinson's symptoms are flared-up, or in between doses of medication, she has more pain. Her family notes that she is sitting more upright most days. She also finds that her pain worsens as the day progresses, typically after 430pm. She reports her Dopaminergic medications have been adjusted by her Parkinson's doctor. She is able to garden and be more active around the house. However, she still is unable to go for long walks. Pain Description: Timing: intermittant Character: aching and burning Primary Location: axial neck and upper traps Radiation: none Exacerbating factors: walking and lying flat Relieving factors: ice and heat, C-collar (uses sparingly) Interferes with: physical activity The patient denies difficulty with bowel or bladder control, unintentional weight loss, and fevers, chills, or night sweats. Post RFA MOUNIKA: Pain level: 2/10 (on good days) Pain Intensity 0 Personal Care (Washing/Dressing) 0 - I can look after myself normally without causing extra pain Lifting 2 - Pain prevents me from lifting heavy weights off the floor, but I can manage if conveniently positioned (e.g. on a table) Walking 2 Sitting 2 Standing 2 Sleeping 0 - Pain does not prevent me from sleeping well Sex Life 0 - My sex life is normal and causes no pain Social Life 2 Traveling 3 Total Score 13 Interpretation 0-20% - mild disability Current Pain Medications: Neuropathics: Gabapentin 100mg BID - for foot tingling/numbness, helps (Neurology) NSAIDS: Ibuprofen Gel Caps 400mg BID PRN (prefer smaller pills given issues swallowing, but Mobic contraindicated due to Sulfa allergy) Muscle Relaxants: Topicals: Voltaren gel, THC cream - helps a little bit, Lidocaine patches, 2 daily, #60 Other Prescription or OTC Pain Medications: Tylenol OTC Opioids (when applicable): No question data found. Tolerating Medication: Yes Medications helping improve ADL's and Self-care: Yes Anti-depressants or Mood-Stabilizers: None Anti-Coagulants: None Therapies Attended (Current or Most Recent): Physical Therapy : March - Jul, 2023 Notable Events During Course of Treatment: 07/04/2023 - Initial HPI (Obtained by Jak Diaz M.D.). Referred by Marvel Rizzo MD, for evaluation AND management of neck pain Duration: 10 years Sudden onset? no, Trauma? no Prior Treatments: Medications (See below), Modalities (eg. Heat, Ice), Physical Therapy , Home Exercise Program , and Activity Modification PT - 12 visits (04/09/2023 - 06/11/2023) Worked for years at a [employer], reports she frequently hunched in her job Seen previously (last on ) by an Anesthesia Pain Physician. She had trigger point injections multiple times, without sustained relief. This is her first evaluation by a [facility] Pain Physician. Takes Tylenol OTC, minimal relief Has Parkinson's Treatment History: PAIN PROCEDURES: DATE PROCEDURE IMPROVEMENT 10/02/2023 RFA, Bilat C4-5 and C5-6 >50% (02/27/2024) 08/17/2021 TPI 50% relief x 6 weeks MEDICATIONS Taken TO DATE (for the chief complaint(s)): Neuropathics: Neurontin (Gabapentin) NSAIDS: Naprosyn (Naproxen), Mobic (Meloxicam) Muscle Relaxants: Zanaflex (Tizanidine) (more content not included)... [facility] 01-13-2024 Note HNO ID: [id number] Author: SILVANO VANCE PA-C Service: ? Author Type: Physician Housing Inspectors Type: Progress Notes Filed: 01/14/2024 10:22 Note Text: CC: Patient presents with: Follow Up: labs, fell December 26 at movement class fell after standing up from a sitting position HPI Lou Oliver is a 78 year old female who presents today for 6 weeks f/u to reassess low BP episodes/syncope and to f/u re: recheck lipids since being back on statin. LV was on 12/02/23. See updated lab results below: Latest Ref Rng 12/31/2023 Cholesterol, Total <200 mg/dL 136 Triglyceride <150 mg/dL 69 HDL Cholesterol >39 mg/dL 54 Non HDL Cholesterol <130 mg/dL 82 Fasting Time hrs 12 VLDL Cholesterol <30 mg/dL 14 TC:HDL Ratio <5.10 2.52 LDL Cholesterol <100 mg/dL 68 LDL:HDL Ratio <2.54 1.26 Had another syncopal episode at her exercise/movement class on 12/26 - for which she notified her neuro PA-C, Zhane Sylvester, but no changes were made to medication at that time. Pt believes the sinemet to be the culprit, as she never had these syncopal episodes prior to starting the medication. Uses a cane to ambulate most of the time or at least I like to have it with me. Pt reports that she's in the process of getting a walker. Hyperlipidemia. Ms. Oliver reports doing well on current therapy of pravastatin (Pravachol). Denies side effects of muscle weakness or achiness. Her most recent lipid panels are: Cholesterol, Total (mg/dL) Date Value 12/31/2023 136 11/11/2023 216 03/08/2021 193 12/15/2018 185 HDL Cholesterol (mg/dL) Date Value 12/31/2023 54 11/11/2023 56 03/08/2021 71 12/15/2018 45 LDL Cholesterol (mg/dL) Date Value 12/31/2023 68 11/11/2023 142 03/08/2021 108 12/15/2018 111 Triglyceride (mg/dL) Date Value 12/31/2023 69 11/11/2023 92 03/08/2021 71 12/15/2018 144 The 10-year ASCVD risk score (Lia BAUTISTA, et al., 2019) is: 15% Values used to calculate the score: Age: 78 years Sex: Female Is Non- : No Diabetic: No Tobacco smoker: No Systolic Blood Pressure: 110 mmHg Is BP treated: No HDL Cholesterol: 54 mg/dL Total Cholesterol: 136 mg/dL REVIEW OF SYSTEMS See HPI All other systems negative. PAST MEDICAL HISTORY Diagnosis Date Diverticulosis of colon (without mention of hemorrhage) Essential hypertension, benign 04/04/2007 Mental disorder Migraine without aura 04/04/2007 Parkinson disease (HCC) Unspecified hypothyroidism 04/04/2007 PAST SURGICAL HISTORY Procedure Laterality Date DELIVERY ONLY , low cervical x2 COLONOSCOPY FLX DX W/COLLJ SPEC WHEN PFRMD 1994 Colonoscopy COLONOSCOPY FLX DX W/COLLJ SPEC WHEN PFRMD 04/07/2012 Colonoscopy COLONOSCOPY FLX DX W/COLLJ SPEC WHEN PFRMD 06/17/2019 Colonoscopy DILATION AND CURETTAGE DXAND/THER NONOBSTETRIC 09/1982 Dilation AND curettage PAST SURGICAL HISTORY OF 02/1996 EMB TONSILLECTOMY AND ADENOIDECTOMY T/A (under age 12 years) ALLERGIES Sulfa (Sulfonamide Antibiotics) MEDICATIONS pravastatin (PRAVACHOL) 20 mg tablet Take 1 tablet by mouth daily at bedtime. lidocaine (LIDODERM) 5 % Apply 2 Patches as directed once daily. Remove patch after [address] (PROTONIX) 40 mg tablet Take 1 tablet by mouth once daily. On empty stomach at least 30 minutes before eating. carbidopa-levodopa CR (SINEMET CR) 50-200 mg per tablet TAKE 1 TABLET BY MOUTH in Morning and before bedtime as instructed. carbidopa-levodopa (SINEMET) 25-100 mg per tablet Take 1 tab at 7AM, 1.5 to 2 tabs at 11AM, 1.5 tabs at 3PM and 1 tab at 7PM. (Patient taking differently: Take 1 tab at 7AM, 2 tabs at 11AM, 1.5 tabs at 3PM and 1 tab at 7PM.) gabapentin (NEURONTIN) 100 mg capsule Take 1 capsule by mouth two times a day for 180 days. fludrocortisone (FLORINEF) 0.1 mg tablet take 1 tablet by mouth every day ondansetron orally disintegrating (ZOFRAN ODT) 4 mg disintegrating tablet Take 1 tablet by mouth every 6 hours as needed for nausea/vomiting. LORazepam (ATIVAN) 0.5 mg Take by mouth. levothyroxine (SYNTHROID) 75 mcg tablet Take 1 tablet by mouth once daily. Take on empty stomach. For Thyroid sertraline (ZOLOFT) 100 mg tablet Take 1 tablet by mouth once daily. Cholecalciferol, Vitamin D3, 50 mcg (2,000 unit) cap Take 2,000 Units by mouth once daily. diclofenac sodium (VOLTAREN) 1 % topical gel APPLY 2 GRAMS TO AFFECTED AREA 4 TIMES A DAY docusate sodium (COLACE ORAL) Take by mouth as needed. FAMILY HISTORY Problem Relation Age of Onset Hypertension Mother Arthritis Mother Heart disease Mother Diabetes Father adult onset Emphysema Father Cancer Father lung Psychiatry Maternal Grandmother Ischemic Heart Disease Maternal Grandfather Diabetes Paternal Grandmother Asthma Daughter Allergic Rhinitis Daughter Colon Cancer No Family History Social History Tobacco Use Smoking status: Never Smokeless tobacco: Never (more content not included)... [facility] 01-13-2024 History of Present illness Narrative CC: Patient presents with: Follow Up: labs, fell December 26 at movement class fell after standing up from a sitting position HPI Lou Oliver is a 78 year old female who presents today for 6 weeks f/u to reassess low BP episodes/syncope and to f/u re: recheck lipids since being back on statin. LV was on 12/02/23. See updated lab results below: Latest Ref Rng 12/31/2023 Cholesterol, Total <200 mg/dL 136 Triglyceride <150 mg/dL 69 HDL Cholesterol >39 mg/dL 54 Non HDL Cholesterol <130 mg/dL 82 Fasting Time hrs 12 VLDL Cholesterol <30 mg/dL 14 TC:HDL Ratio <5.10 2.52 LDL Cholesterol <100 mg/dL 68 LDL:HDL Ratio <2.54 1.26 Had another syncopal episode at her exercise/movement class on 12/26 - for which she notified her neuro PA-C, Zhane Sylvester, but no changes were made to medication at that time. Pt believes the sinemet to be the culprit, as she never had these syncopal episodes prior to starting the medication. Uses a cane to ambulate most of the time or at least I like to have it with me. Pt reports that she's in the process of getting a walker. Hyperlipidemia. Ms. Oliver reports doing well on current therapy of pravastatin (Pravachol). Denies side effects of muscle weakness or achiness. Her most recent lipid panels are: Cholesterol, Total (mg/dL) Date Value 12/31/2023 136 11/11/2023 216 03/08/2021 193 12/15/2018 185 HDL Cholesterol (mg/dL) Date Value 12/31/2023 54 11/11/2023 56 03/08/2021 71 12/15/2018 45 LDL Cholesterol (mg/dL) Date Value 12/31/2023 68 11/11/2023 142 03/08/2021 108 12/15/2018 111 Triglyceride (mg/dL) Date Value 12/31/2023 69 11/11/2023 92 03/08/2021 71 12/15/2018 144 The 10-year ASCVD risk score (Lia BAUTISTA, et al., 2019) is: 15% Values used to calculate the score: Age: 78 years Sex: Female Is Non- : No Diabetic: No Tobacco smoker: No Systolic Blood Pressure: 110 mmHg Is BP treated: No HDL Cholesterol: 54 mg/dL Total Cholesterol: 136 mg/dL REVIEW OF SYSTEMS See HPI All other systems negative. PAST MEDICAL HISTORY Diagnosis Date Diverticulosis of colon (without mention of hemorrhage) Essential hypertension, benign 04/04/2007 Mental disorder Migraine without aura 04/04/2007 Parkinson disease (HCC) Unspecified hypothyroidism 04/04/2007 PAST SURGICAL HISTORY Procedure Laterality Date DELIVERY ONLY , low cervical x2 COLONOSCOPY FLX DX W/COLLJ SPEC WHEN PFRMD 1994 Colonoscopy COLONOSCOPY FLX DX W/COLLJ SPEC WHEN PFRMD 04/07/2012 Colonoscopy COLONOSCOPY FLX DX W/COLLJ SPEC WHEN PFRMD 06/17/2019 Colonoscopy DILATION & CURETTAGE DX&/THER NONOBSTETRIC 09/1982 Dilation & curettage PAST SURGICAL HISTORY OF 02/1996 EMB TONSILLECTOMY & ADENOIDECTOMY <AGE 12 T/A (under age 12 years) ALLERGIES Sulfa (Sulfonamide Antibiotics) MEDICATIONS pravastatin (PRAVACHOL) 20 mg tablet Take 1 tablet by mouth daily at bedtime. lidocaine (LIDODERM) 5 % Apply 2 Patches as directed once daily. Remove patch after [address] (PROTONIX) 40 mg tablet Take 1 tablet by mouth once daily. On empty stomach at least 30 minutes before eating. carbidopa-levodopa CR (SINEMET CR) 50-200 mg per tablet TAKE 1 TABLET BY MOUTH in Morning and before bedtime as instructed. carbidopa-levodopa (SINEMET) 25-100 mg per tablet Take 1 tab at 7AM, 1.5 to 2 tabs at 11AM, 1.5 tabs at 3PM and 1 tab at 7PM. (Patient taking differently: Take 1 tab at 7AM, 2 tabs at 11AM, 1.5 tabs at 3PM and 1 tab at 7PM.) gabapentin (NEURONTIN) 100 mg capsule Take 1 capsule by mouth two times a day for 180 days. fludrocortisone (FLORINEF) 0.1 mg tablet take 1 tablet by mouth every day ondansetron orally disintegrating (ZOFRAN ODT) 4 mg disintegrating tablet Take 1 tablet by mouth every 6 hours as needed for nausea/vomiting. LORazepam (ATIVAN) 0.5 mg Take by mouth. levothyroxine (SYNTHROID) 75 mcg tablet Take 1 tablet by mouth once daily. Take on empty stomach. For Thyroid sertraline (ZOLOFT) 100 mg tablet Take 1 tablet by mouth once daily. Cholecalciferol, Vitamin D3, 50 mcg (2,000 unit) cap Take 2,000 Units by mouth once daily. diclofenac sodium (VOLTAREN) 1 % topical gel APPLY 2 GRAMS TO AFFECTED AREA 4 TIMES A DAY docusate sodium (COLACE ORAL) Take by mouth as needed. FAMILY HISTORY Problem Relation Age of Onset Hypertension Mother Arthritis Mother Heart disease Mother Diabetes Father adult onset Emphysema Father Cancer Father lung Psychiatry Maternal Grandmother Ischemic Heart Disease Maternal Grandfather Diabetes Paternal Grandmother Asthma Daughter Allergic Rhinitis Daughter Colon Cancer No Family History Social History Tobacco Use Smoking status: Never Smokeless tobacco: Never Tobacco comments: Father smoked in childhood home. 2 spouses were smokers. Vaping Use Vaping Use: Never used Substance Use Topics Alcohol use: No Drug use: No PHYSICAL EXAM BP 110/62 (BP Site: Left Arm, BP Position: Sitting, BP Cuff Size: Regular Adult) Pulse 82 Temp 36.2 C (97.2 F) Resp 12 Ht 162.6 cm (5' 4 ) Wt 59 kg (130 lb) SpO2 99% BMI 22.31 kg/m General Appearance: well appearing, in no acute distress, alert Pysch: mood and affect broad and appropriate Skin: Skin color, texture, turgor normal for age; Head: normocephalic, atraumatic Lymph nodes: No cervical lymphadenopathy Lungs: Lungs clear to auscultation. No wheezing, rhonchi, rales. Heart: RRR without murmur, gallop, or rubs. No ectopy Abdomen: Normal abdominal exam Extremities: No gross deformities, significant edema, skin discoloration, clubbing or cyanosis. Neurological: Gait normal. No focal neurological deficits. Sensation grossly intact. DATA REVIEWED: Most recent labs ASSESSMENT/PLAN: 1. Orthostatic hypotension - ICD9: 458.0, ICD10: I95.1 (primary diagnosis) Positive orthostatic blood pressures in office, decreasing from lying down BP of 104/54 (HR 63)to 80/50 1 minute after sitting (HR 72) Unclear as to whether this is secondary to the Sinemet versus pathology of Parkinson's. Will send message to Zhane Sylvester PA-C to see if any changes are needed at this time. Continue current management for the time being. Patient is opting to see Dr. Clotilde, Parkinson's specialist, for another opinion. 2. Syncope, unspecified syncope type - ICD9: 780.2, ICD10: R55 With most recent episode 12/26 without any residual injuries, including any trauma to the head 3. Parkinson's disease with dyskinesia, unspecified whether manifestations fluctuate (HCC) - ICD9: 332.0, ICD10: G20.B1 See above 4. Mixed hyperlipidemia - ICD9: 272.2, ICD10: E78.2 - Improving control - Continue current medications - Counseled on healthy diet and regular exercise F/u 6 weeks syncopal episodes Prescription instructions reviewed with patient as applicable. Potential red flag symptoms discussed with the patient. Reviewed appropriate action plan to take if red flag symptoms occur. Patient agreeable to treatment plan. Silvano Vance PA-C documented in this encounter [facility] 12-27-2023 Miscellaneous Notes Patient calling to check if any information from Zhane SHI. Went over my chart message from Zhane SHI, patient said she was exercising again this morning and after stood up and fainted again. Advised to keep well hydrated. Patient said she was going to send her a [employer] chart message back. documented in this encounter [facility] 12-24-2023 Note HNO ID: [id number] Author: ZHANE SYLVESTER PA-C Service: ? Author Type: Physician Housing Inspectors Type: Progress Notes Filed: 12/24/2023 15:42 Note Text: ESTABLISHED PATIENT VISIT Last visit: 10/25/[address] Connolly Assessment and Plan: 1. Parkinson's disease, unspecified whether dyskinesia present, unspecified whether manifestations fluctuate - ICD9: 332.0, ICD10: G20.A1 (primary diagnosis) Overall, worsening per provided history with changes on exam as well including increase in muscle tone in the LUE. Patient reports does worst between 2nd and 3rd dose of Sinemet and question if higher dose (2nd dosing) is needed. Thus will attempt to increase the 11AM or 2nd dose of Sinemet as follows with no other med changes being made: Sinemet 25/100mg dose: -Take 1 tabs at 7AM (after eating something). -Take 1.5 to 2 tabs at 11AM. -Take 1.5 tabs at 3PM (after lunch). -Take 1 tabs at 7PM 2. Sinemet CR 50/200mg dose: -Take 1 tablet with your 7AM dose of short acting Sinemet. -Take 1 tablet at 11 PM. 2. 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 3. Small fiber neuropathy - ICD9: 356.9, ICD10: G62.9 Note that patient is only taking gabapentin 100mg BID. States it does alleviate discomfort secondary to neuropathy without side effect. Will continue dose. Note has not filled since late April 2023, but that Rx was for 3 tabs daily. Ranjan Connolly MD CHIEF COMPLAINT: follow up HISTORY OF PRESENT ILLNESS: Lou Oliver is a 78 year old female, There were no vitals taken for this visit. with a PMH significant for Parkinson's disease, hypertension, migraine, intracranial meningioma, hypothyroidism, anxiety. Last saw Dr. Connolly on 10/25/22 for PD. Worsening symptoms and exam. Increased 2nd dose to two tablets. PCP reached out noting patient with recent syncopal event last week. On florinef as well. Telephone encounter from PCP: I just wanted to reach out due to patient having recent syncopal episode last week -- seems to be less frequent than the bouts were previously, but I just worry about her and the fact that she resides alone. Just wanted to send you this FYI in the case her Florinef or Sinemet needed adjusted accordingly. Per patient: Patient presents with her daughter for follow-up appointment. Patient notes that she had 1 episode of syncope when she was at exercise class. Notes that she went to put on her coat when she passed out, her friend caught her and slowly lowered her to the ground. No injury required. Notes that she was out for a few minutes and then regained consciousness. No tongue biting or incontinence. No seizure-like activity. Notes this is been consistent with her previous episodes of syncope in the past, no new symptoms with this. Notes that she gets vision changes before she passes out, experiences some tunnel vision. Symptoms if she sits down and puts her head between her legs this will resolve within seconds. Notes most of her episodes of lightheadedness occur from 3 PM to 7 PM or when she is active during her exercise class. Notes that she has improved her water intake and drinks her Jefferson flask 2-3 times a day. She does wear compression socks regularly but is unsure if it has been beneficial for her lightheadedness. Did have increase in her Sinemet to 2 tablets at 11 AM and notes significant benefit with this. However this is also around the time where she has had increased in her lightheadedness. She feels the benefit of the increase in Sinemet outweighs the lightheaded risk and would like to further treat the lightheadedness. Sleep is stable, physical activity is stable. No new concerns today. REVIEW OF SYSTEMS GENERAL:No weight loss, malaise or fevers. HEENT:Negative for frequent or significant headaches, No changes in hearing or vision, no nose bleeds or other nasal problems NECK:Negative for lumps, goiter, pain and significant neck swelling RESPIRATORY: Negative for cough, wheezing or shortness of breath. CARDIOVASCULAR: Negative for chest pain, leg swelling or palpitations. GASTROINTESTINAL: Negative for abdominal discomfort, blood in stools or black stools or change in bowel habits GENITOURINARY: No history of dysuria, frequency or incontinence MUSCULOSKELETAL: Negative for joint pain or swelling, back pain or muscle pain. NEUROLOGIC:Negative for focal numbness or weakness, headaches and dizziness or syncope, vision changes, speech/languag changes - EXCEPT that as per HPI above. SKIN:Negative for lesions, rash, and itching. PSYCHIATRIC: Negative for sleep disturbance, mood disorder and recent psychosocial stressors. HEMATOLOGIC/LYMPHATIC/IMMUNOLOGIC: Negative for prolonged bleeding, bruising easily or swollen nodes. ENDOCRINE: Negative for cold or heat intolerance, polyuria, polydipsia and goiter. The remainder of the ROS was reviewed and is negative. LAB/IMAGING: Those performed since sima (more content not included)... [facility] 12-03-2023 Miscellaneous Notes Pt scheduled. Paula Quiroz LPN Please try to get pt in with me, or Alberto RIVERA. Also would advise PCP office that it might be best she again have an event monitor. Ranjan Connolly MD ----- Message ----- From: Silvano Vance PA-C Sent: 12/02/2023 12:23 PM EST To: Zhane Sylvester PA-C; Ranjan Connolly Jr., MD Ia! I just wanted to reach out due to patient having recent syncopal episode last week -- seems to be less frequent than the bouts were previously, but I just worry about her and the fact that she resides alone. Just wanted to send you this FYI in the case her Florinef or Sinemet needed adjusted accordingly. documented in this encounter [facility] 12-02-2023 Note HNO ID: [id number] Author: RANJAN CONNOLLY JR, MD Service: ? Author Type: Physician Type: Progress Notes Filed: 12/02/2023 18:05 Note Text: Please try to get pt in with me, or Alberto RIVERA. Also would advise PCP office that it might be best she again have an event monitor. Ranjan Connolly MD [facility] 12-02-2023 History of Present illness Narrative Please try to get pt in with me, or Alberto RIVERA. Also would advise PCP office that it might be best she again have an event monitor. Ranjan Connolly MD CC: Patient presents with: Follow Up: 3 month follow up, passed out at exercise class on 11/27/23 HPI Lou Oliver is a 78 year old female who presents today for 3 month f/u for routine issues and to discuss labs. LV was with Aminaat Royal CNP on 08/12/23. At that time, pt was referred to speech language pathologist and GI for dysphagia and had cookie swallow performed, as well as EGD performed on 11/29/23. Pt reports that they had to perform dilatation to stretch my esophagus. Notices that the globus sensation is much improved, and she has not had any GERD symptoms since before her procedure. Syncope/hypotension: Patient would also like to discuss recent episode of syncope that occurred at her parkinsons exercise class on 11/27/2023. [place] like she was lightheaded prior to. Her friend was helping with her coat at the time so she caught her and lowered her to the floor. She was told she was out for a minute or two. Denies any injury to head on the way down. Her therapist took her BP following the incident and one of the numbers was 60. Previously had her Florinef adjusted d/t episodes of hypotension, so she's currently taking one .1 mg florinef daily. She does live alone, with her daughters coming and going to check in on her. She uses her cane or walker to get around. Typically notices when the lightheadedness comes on, so she can sit back down if she starts to acknowledge this feeling. Pt reports that she hasn't been checking her BP very often because she thought it was stable recently. Had 3 other episodes (two at home ,one at [facility])- but they have not occurred since before . My balance has been really bad lately. Reports she spoke to Dr. Connolly about this, and he has been adjusting her medication (Sinemet) Her last appt was w/ Dr. Connolly on 10/24/23- at that time, he increased Sinemet. She will be seeing him again 12/24/23. Also having more rigidity in left arm and progression of tremors. Also notes having had COVID twice within a short period of time (once in August, again in September). Feeling improved at this point in time. Cervical spondylosis: Had radiofrequency ablation in 10/[address] Jak Diaz, and she notes that her cervicalgia is about 50% better at ths time. Hyperlipidemia: Ms. Oliver reports that she discontinued her pravastatin 8-9 months d/t acid-reflux symptoms. Her most recent lipid panels are: Cholesterol, Total (mg/dL) Date Value 11/11/2023 216 03/08/2021 193 12/15/2018 185 HDL Cholesterol (mg/dL) Date Value 11/11/2023 56 03/08/2021 71 12/15/2018 45 LDL Cholesterol (mg/dL) Date Value 11/11/2023 142 03/08/2021 108 12/15/2018 111 Triglyceride (mg/dL) Date Value 11/11/2023 92 03/08/2021 71 12/15/2018 144 The 10-year ASCVD risk score (Lia BAUTISTA, et al., 2019) is: 20.3% Values used to calculate the score: Age: 78 years Sex: Female Is Non- : No Diabetic: No Tobacco smoker: No Systolic Blood Pressure: 130 mmHg Is BP treated: No HDL Cholesterol: 56 mg/dL Total Cholesterol: 216 mg/dL REVIEW OF SYSTEMS See HPI All other systems negative. PAST MEDICAL HISTORY Diagnosis Date Diverticulosis of colon (without mention of hemorrhage) Essential hypertension, benign 04/04/2007 Mental disorder Migraine without aura 04/04/2007 Parkinson disease Unspecified hypothyroidism 04/04/2007 PAST SURGICAL HISTORY Procedure Laterality Date DELIVERY ONLY , low cervical x2 COLONOSCOPY FLX DX W/COLLJ SPEC WHEN PFRMD 1994 Colonoscopy COLONOSCOPY FLX DX W/COLLJ SPEC WHEN PFRMD 04/07/2012 Colonoscopy COLONOSCOPY FLX DX W/COLLJ SPEC WHEN PFRMD 06/17/2019 Colonoscopy DILATION & CURETTAGE DX&/THER NONOBSTETRIC 09/1982 Dilation & curettage PAST SURGICAL HISTORY OF 02/1996 EMB TONSILLECTOMY & ADENOIDECTOMY <AGE 12 T/A (under age 12 years) ALLERGIES Sulfa (Sulfonamide Antibiotics) MEDICATIONS lidocaine (LIDODERM) 5 % Apply 2 Patches as directed once daily. Remove patch after [address] (PROTONIX) 40 mg tablet Take 1 tablet by mouth once daily. On empty stomach at least 30 minutes before eating. carbidopa-levodopa CR (SINEMET CR) 50-200 mg per tablet TAKE 1 TABLET BY MOUTH in Morning and before bedtime as instructed. carbidopa-levodopa (SINEMET) 25-100 mg per tablet Take 1 tab at 7AM, 1.5 to 2 tabs at 11AM, 1.5 tabs at 3PM and 1 tab at 7PM. (Patient taking differently: Take 1 tab at 7AM, 2 tabs at 11AM, 1.5 tabs at 3PM and 1 tab at 7PM.) gabapentin (NEURONTIN) 100 mg capsule Take 1 capsule by mouth two times a day for 180 days. fludrocortisone (FLORINEF) 0.1 mg tablet take 1 tablet by mouth every day ondansetron orally disintegrating (ZOFRAN ODT) 4 mg disintegrating tablet Take 1 tablet by mouth every 6 hours as needed for nausea/vomiting. LORazepam (ATIVAN) 0.5 mg Take by mouth. levothyroxine (SYNTHROID) 75 mcg tablet Take 1 tablet by mouth once daily. Take on empty stomach. For Thyroid sertraline (ZOLOFT) 100 mg tablet Take 1 tablet by mouth once daily. Cholecalciferol, Vitamin D3, 50 mcg (2,000 unit) cap Take 2,000 Units by mouth once daily. diclofenac sodium (VOLTAREN) 1 % topical gel APPLY 2 GRAMS TO AFFECTED AREA 4 TIMES A DAY docusate sodium (COLACE ORAL) Take by mouth as needed. FAMILY HISTORY Problem Relation Age of Onset Hypertension Mother Arthritis Mother Heart disease Mother Diabetes Father adult onset Emphysema Father Cancer Father lung Psychiatry Maternal Grandmother Ischemic Heart Disease Maternal Grandfather Diabetes Paternal Grandmother Asthma Daughter Allergic Rhinitis Daughter Colon Cancer No Family History Social History Tobacco Use Smoking status: Never Smokeless tobacco: Never Tobacco comments: Father smoked in childhood home. 2 spouses were smokers. Vaping Use Vaping Use: Never used Substance Use Topics Alcohol use: No Drug use: No PHYSICAL EXAM BP 130/62 (BP Site: Left Arm, BP Position: Sitting, BP Cuff Size: Large Adult) Pulse 80 Temp 36.2 C (97.1 F) Resp 12 Ht 162.6 cm (5' 4 ) Wt 59.9 kg (132 lb) SpO2 100% BMI 22.66 kg/m General Appearance: well appearing, in no acute distress, alert, thin- ambulates with torres. Psych: mood and affect broad and appropriate Skin: Skin color, texture, turgor normal for age Lungs: Lungs clear to auscultation. No wheezing, rhonchi, rales. Heart: RRR without murmur, gallop, or rubs. Extremities: No gross deformities, significant edema, skin discoloration, clubbing or cyanosis. Neurological: Gait normal. No focal neurological deficits. Sensation grossly intact. Component Latest Ref Rng & Units 11/11/2023 WBC 3.70 - 11.00 k/uL 4.13 RBC 3.90 - 5.20 m/uL 3.79 (L) Hemoglobin 11.5 - 15.5 g/dL 11.6 Hematocrit 36.0 - 46.0 % 36.2 MCV 80.0 - 100.0 fL 95.5 MCH 26.0 - 34.0 pg 30.6 MCHC 30.5 - 36.0 g/dL 32.0 RDW-CV 11.5 - 15.0 % 12.8 Platelet Count 150 - 400 k/uL 240 MPV 9.0 - 12.7 fL 10.1 Absolute nRBC <0.01 k/uL <0.01 Glucose 74 - 99 mg/dL 101 (H) BUN 7 - 21 mg/dL 24 (H) Creatinine 0.58 - 0.96 mg/dL 0.66 Sodium 136 - 144 mmol/L 142 Potassium 3.7 - 5.1 mmol/L 4.2 Chloride 97 - 105 mmol/L 105 CO2 22 - 30 mmol/L 29 Anion Gap 9 - 18 mmol/L 8 (L) Calcium 8.5 - 10.2 mg/dL 9.4 eGFR >=60 mL/min/1.73m 90 Cholesterol, Total <200 mg/dL 216 (H) Triglyceride <150 mg/dL 92 HDL Cholesterol >39 mg/dL 56 Non HDL Cholesterol <130 mg/dL 160 (H) Fasting Time hrs 12 VLDL Cholesterol <30 mg/dL 18 TC:HDL Ratio <5.10 3.86 LDL Cholesterol <100 mg/dL 142 (H) LDL:HDL Ratio <2.54 2.54 (H) TSH 0.270 - 4.200 mIU/L 2.390 Free T4 0.9 - 1.7 ng/dL 1.4 Vitamin D 25 Hydroxy 31.0 - 80.0 ng/mL 39.0 ASSESSMENT/PLAN: 1. Syncope, unspecified syncope type - ICD9: 780.2, ICD10: R55 (primary diagnosis) Suspect to be related to low BP, as she has had these hypotensive episodes with the progression of her Parkinson's/associated adjustments of Sinemet. Will attempt to be more vigilant about checking BP TID. See below. Reviewed red flags with patient and when to seek care sooner. 2. Mixed hyperlipidemia - ICD9: 272.2, ICD10: E78.2 - Worsening control, has been off statin for the past 8-9 months d/t worsening reflux. Will trial back on statin now that GERD symptoms are markedly improved. Reassess with follow-up lab (lipid panel) in 6 weeks. 3. Parkinson's disease with dyskinesia, unspecified whether manifestations fluctuate - ICD9: 332.0, ICD10: G20.B1 Continue current management per neurology. Will collaborate with neuro regarding recent syncopal episode to determine if any further medication adjustments are needed. 4. Gastroesophageal reflux disease, unspecified whether esophagitis present - ICD9: 530.81, ICD10: K21.9 - Recently completed EGD w/ dilatation - having significant improvement in GERD sx since. CCM on Protonix, and following up with GI as discussed. F/u 6 weeks reassess low BP episodes/syncope, recheck lipids back on statin Prescription instructions reviewed with patient as applicable. Potential red flag symptoms discussed with the patient. Reviewed appropriate action plan to take if red flag symptoms occur. Patient agreeable to treatment plan. Silvano Vance PA-C documented in this encounter [facility] 12-02-2023 Miscellaneous Notes Duplicate. duplicate documented in this encounter [facility] 12-02-2023 Note HNO ID: [id number] Author: SILVANO VANCE PA-C Service: ? Author Type: Physician [employer] Type: Progress Notes Filed: 12/02/2023 12:24 Note Text: CC: Patient presents with: Follow Up: 3 month follow up, passed out at exercise class on 11/27/23 HPI Lou Oliver is a 78 year old female who presents today for 3 month f/u for routine issues and to discuss labs. LV was with Aminata Royal CNP on 08/12/23. At that time, pt was referred to speech language pathologist and GI for dysphagia and had cookie swallow performed, as well as EGD performed on 11/29/23. Pt reports that they had to perform dilatation to stretch my esophagus. Notices that the globus sensation is much improved, and she has not had any GERD symptoms since before her procedure. Syncope/hypotension: Patient would also like to discuss recent episode of syncope that occurred at her parkinsons exercise class on 11/27/2023. [place] like she was lightheaded prior to. Her friend was helping with her coat at the time so she caught her and lowered her to the floor. She was told she was out for a minute or two. Denies any injury to head on the way down. Her therapist took her BP following the incident and one of the numbers was 60. Previously had her Florinef adjusted d/t episodes of hypotension, so she's currently taking one .1 mg florinef daily. She does live alone, with her daughters coming and going to check in on her. She uses her cane or walker to get around. Typically notices when the lightheadedness comes on, so she can sit back down if she starts to acknowledge this feeling. Pt reports that she hasn't been checking her BP very often because she thought it was stable recently. Had 3 other episodes (two at home ,one at [facility])- but they have not occurred since before . My balance has been really bad lately. Reports she spoke to Dr. Connolly about this, and he has been adjusting her medication (Sinemet) Her last appt was w/ Dr. Connolly on 10/24/23- at that time, he increased Sinemet. She will be seeing him again 12/24/23. Also having more rigidity in left arm and progression of tremors. Also notes having had COVID twice within a short period of time (once in August, again in September). Feeling improved at this point in time. Cervical spondylosis: Had radiofrequency ablation in 10/[address] Jak Diaz, and she notes that her cervicalgia is about 50% better at ths time. Hyperlipidemia: Ms. Oliver reports that she discontinued her pravastatin 8-9 months d/t acid-reflux symptoms. Her most recent lipid panels are: Cholesterol, Total (mg/dL) Date Value 11/11/2023 216 03/08/2021 193 12/15/2018 185 HDL Cholesterol (mg/dL) Date Value 11/11/2023 56 03/08/2021 71 12/15/2018 45 LDL Cholesterol (mg/dL) Date Value 11/11/2023 142 03/08/2021 108 12/15/2018 111 Triglyceride (mg/dL) Date Value 11/11/2023 92 03/08/2021 71 12/15/2018 144 The 10-year ASCVD risk score (Lia BAUTISTA, et al., 2019) is: 20.3% Values used to calculate the score: Age: 78 years Sex: Female Is Non- : No Diabetic: No Tobacco smoker: No Systolic Blood Pressure: 130 mmHg Is BP treated: No HDL Cholesterol: 56 mg/dL Total Cholesterol: 216 mg/dL REVIEW OF SYSTEMS See HPI All other systems negative. PAST MEDICAL HISTORY Diagnosis Date Diverticulosis of colon (without mention of hemorrhage) Essential hypertension, benign 04/04/2007 Mental disorder Migraine without aura 04/04/2007 Parkinson disease Unspecified hypothyroidism 04/04/2007 PAST SURGICAL HISTORY Procedure Laterality Date DELIVERY ONLY , low cervical x2 COLONOSCOPY FLX DX W/COLLJ SPEC WHEN PFRMD 1994 Colonoscopy COLONOSCOPY FLX DX W/COLLJ SPEC WHEN PFRMD 04/07/2012 Colonoscopy COLONOSCOPY FLX DX W/COLLJ SPEC WHEN PFRMD 06/17/2019 Colonoscopy DILATION AND CURETTAGE DXAND/THER NONOBSTETRIC 09/1982 Dilation AND curettage PAST SURGICAL HISTORY OF 02/1996 EMB TONSILLECTOMY AND ADENOIDECTOMY T/A (under age 12 years) ALLERGIES Sulfa (Sulfonamide Antibiotics) MEDICATIONS lidocaine (LIDODERM) 5 % Apply 2 Patches as directed once daily. Remove patch after [address] (PROTONIX) 40 mg tablet Take 1 tablet by mouth once daily. On empty stomach at least 30 minutes before eating. carbidopa-levodopa CR (SINEMET CR) 50-200 mg per tablet TAKE 1 TABLET BY MOUTH in Morning and before bedtime as instructed. carbidopa-levodopa (SINEMET) 25-100 mg per tablet Take 1 tab at 7AM, 1.5 to 2 tabs at 11AM, 1.5 tabs at 3PM and 1 tab at 7PM. (Patient taking differently: Take 1 tab at 7AM, 2 tabs at 11AM, 1.5 tabs at 3PM and 1 tab at 7PM.) gabapentin (NEURONTIN) 100 mg capsule Take 1 capsule by mouth two times a day for 180 days. fludrocortisone (FLORINEF) 0.1 mg tablet take 1 tablet by mouth every day ondansetron orally disintegrating (ZOFRAN ODT) 4 mg disintegrating tablet Take (more content not included)... [facility] 12-02-2023 Nurse Note Eye doctor is , [facility] due in December for appt documented in this encounter [facility] 11-28-2023 Note HNO ID: [id number] Author: BEULAH HUYNH MA Service: ? Author Type: Radiotelegraph Operator Type: Progress Notes Filed: 11/28/2023 13:23 Note Text: Review of Systems Constitutional: Negative for activity change, chills, fever and unexpected weight change. Gastrointestinal: Negative for bowel retention or incontinence Genitourinary: Negative for difficulty urinating. Negative for bladder retention or incontinence Musculoskeletal: Positive for arthralgias, myalgias, neck pain and neck stiffness. Negative for back pain, gait problem and joint swelling. Neurological: Negative for weakness, numbness and headaches. Psychiatric/Behavioral: Positive for dysphoric mood. Negative for sleep disturbance and suicidal ideas. The patient is nervous/anxious. [facility] 11-28-2023 History of Present illness Narrative Review of Systems Constitutional: Negative for activity change, chills, fever and unexpected weight change. Gastrointestinal: Negative for bowel retention or incontinence Genitourinary: Negative for difficulty urinating. Negative for bladder retention or incontinence Musculoskeletal: Positive for arthralgias, myalgias, neck pain and neck stiffness. Negative for back pain, gait problem and joint swelling. Neurological: Negative for weakness, numbness and headaches. Psychiatric/Behavioral: Positive for dysphoric mood. Negative for sleep disturbance and suicidal ideas. The patient is nervous/anxious. Images from the original note were not included. [facility] Today's Date: 11/28/2023 Last visit: 07/04/2023 08/13/2023 , 08/28/2023 , 10/31/2023 Name: Lou Oliver : 1945 Purpose: Follow-up Patient Evaluation - This is an established patient, returning today for continued evaluation and management of the chief complaint noted below Chief complaint: neck pain Referring Clinician: Marvel Rizzo MD Pertinent Past Medical History: Migraine, Lt. Knee pain, Parkinson disease, Neck pain, Intracranial meningioma, HTN, HLD, Tachycardia, Hypothyroidism, Cervical spondylosis, Anxiety, Pes anserinus bursitis of left knee, Neck muscle weakness, Spinal stenosis of cervical region, Pertinent Past Surgeries: none 08/13/2023 - Lou Oliver is a 78 year old female seen for 08/07/23 #1.Medial Branch Block (Diagnostic only, NO STEROIDS) under fluoroscopic guidance BILATERAL at C4-5 and C5-6 Pain level today: 2/10 Pain Intensity 0 - I have no pain at the moment Personal Care (Washing/Dressing) 0 - I can look after myself normally without causing extra pain Lifting 2 - Pain prevents me from lifting heavy weights off the floor, but I can manage if conveniently positioned (e.g. on a table) Walking 4 - Pain prevents me from walking more than 100 yards Sitting 3 - Pain prevents me from sitting more than 1/2 hour Standing 4 - Pain prevents me from standing more than 10 minutes Sleeping 0 - Pain does not prevent me from sleeping well Sex Life 0 - My sex life is normal and causes no pain Social Life 3 - Pain has restricted my social life and I do not go out as often Traveling 5 - Pain prevents me from traveling except to receive treatment Total Score 21 Interpretation 21% - 40% - moderate disability PLAN: Keep appointment for #2 Medial Branch Block (Diagnostic only, NO STEROIDS) under fluoroscopic guidance BILATERAL SIDES at C4-5 and C5-6 08/28/2023 - Lou Oliver is a 78 year old female seen for neck pain, pain score 2/10 She had a second cervical medial branch block on 08/26/[address] Diaz that is helped the pain here by 90% for 6-10 hours. During this time she was able to walk, move her head and even go to the sore and carry groceries. She has not sustained relief. She is wondering about the RFA. PLAN: We will plan on the bilateral C4/5 5/6 RFA for the long lasting mechanical neck pain. She has had 2 + MBB 10/31/2023 - Lou Oliver is a 78 year old female seen for after RFA. Patient states she received 50% relief at least from the radiofrequency ablation for her neck. Patient had this procedure done 10/02/2023 from [facility]. Patient stating it is hard for her to say the amount of relief that may be more than that but she has COVID. Patient stating this is the second time she has had COVID in the last few months. Patient states that she is just achy all over. Patient also states that she feels her Parkinson's will cause her to tense up and that will make her neck pain worse. But overall she does feel that the ablation did help with her symptoms. Date Procedure relief 10/02/2023 B/L RFA C4-C6 50% PLAN: Pt will continue current activity as tolerated Follow up in 5 months Pt is to call if pain level increases and is no longer managed Plan at last visit: Lou Oliver would benefit from the following to reach personal goals for decreasing pain, improving function and work participation, and/or improving quality of life: -Interventional Procedure: Medial branch blocks bilateral C4-5,5-6 under fluoroscopic guidance x 2, RFA if positive x 2 Medication(s): Ibuprofen Gel Caps 400mg BID PRN (prefer smaller pills given issues swallowing, but Mobic contraindicated due to Sulfa allergy) Functional Shinto: No changes-continue current regimen Depending on response to the above plan, consider: RFA -Follow-up: 3 months Interval History: Overall pain and functional disability since last visit: Worse New Complaints since last visit: No She reports that her neck pain overall has been better since the ablation. However, on days when her Parkinson's symptoms are flared-up (like today), she has severe pain in her neck. Her family notes that she is sitting more upright most days. She also finds that her pain worsens as the day progresses, typically after 430pm. She reports her Dopaminergic medications are being adjusted by her Parkinson's doctor. Pain Description: Timing: intermittant Character: aching and burning Primary Location: axial neck and upper traps Radiation: none Exacerbating factors: walking and lying flat Relieving factors: ice and heat, C-collar (uses sparingly) Interferes with: physical activity The patient denies difficulty with bowel or bladder control, unintentional weight loss, and fevers, chills, or night sweats. Post RFA MOUNIKA: Pain level: 2/10 (on good days) Pain Intensity 0 Personal Care (Washing/Dressing) 0 - I can look after myself normally without causing extra pain Lifting 2 - Pain prevents me from lifting heavy weights off the floor, but I can manage if conveniently positioned (e.g. on a table) Walking 2 Sitting 2 Standing 2 Sleeping 0 - Pain does not prevent me from sleeping well Sex Life 0 - My sex life is normal and causes no pain Social Life 2 Traveling 3 Total Score 13 Interpretation 0-20% - mild disability Current Pain Medications: Neuropathics: Gabapentin 100mg BID - for foot tingling/numbness, helps NSAIDS: Muscle Relaxants: Topicals: Voltaren gel, THC cream - helps a little bit Other Prescription or OTC Pain Medications: Tylenol OTC Opioids (when applicable): No question data found. Tolerating Medication: Yes Medications helping improve ADL's and Self-care: Yes Anti-depressants or Mood-Stabilizers: None Anti-Coagulants: None Therapies Attended (Current or Most Recent): Physical Therapy : March - Jul, 2023 Notable Events During Course of Treatment: 07/04/2023 - Initial HPI (Obtained by Jak Diaz M.D.). Referred by Marvel Rizzo MD, for evaluation & management of neck pain Duration: 10 years Sudden onset? no, Trauma? no Prior Treatments: Medications (See below), Modalities (eg. Heat, Ice), Physical Therapy , Home Exercise Program , and Activity Modification PT - 12 visits (04/09/2023 - 06/11/2023) Worked for years at [employer], reports she frequently hunched in her job Seen previously (last on ) by an Anesthesia Pain Physician. She had trigger point injections multiple times, without sustained relief. This is her first evaluation by a PM&R Pain Physician. Takes Tylenol OTC, minimal relief Has Parkinson's Treatment History: PAIN PROCEDURES: DATE PROCEDURE IMPROVEMENT 10/02/2023 RFA Bilat C4-5 and C5-6 50% (11/28/2023 ) 08/17/2021 TPI 50% relief x 6 weeks 06/2021 MEDICATIONS Taken TO DATE (for the chief complaint(s)): Neuropathics: Neurontin (Gabapentin) NSAIDS: Naprosyn (Naproxen), Mobic (Meloxicam) Muscle Relaxants: Zanaflex (Tizanidine) Topicals: Voltaren (Gel) Other Prescription or OTC Pain Medications: Tylenol (Acetaminophen), Sinemet, Florinef, Ativan, Opioids: None Data Reviewed Today: Allergies: ALLERGIES Allergen Reactions Sulfa (Sulfonamide * Hives Social History Tobacco Use Smoking status: Never Smokeless tobacco: Never Tobacco comments: Father smoked in childhood home. 2 spouses were smokers. Vaping Use Vaping Use: Never used Substance Use Topics Alcohol use: No Drug use: No INTAKE PAIN ASSESSMENT 11/26/2023 11/26/2023 Are you having pain associated with your visit today? Yes, Provider notified Yes, Provider notified Pain Scales - - Pain Level 4 4 Pain Location Neck Neck Description Aching;Burning;Cramping;Dull;Spasm Aching;Burning;Cramping;Dull;Spasm Duration Amount of Time - - Duration Units - - Frequency Intermittent Intermittent Intervention/Comfort measure - - Comments Pain occurs during my Parkinson s off periods of time Pain occurs during my Parkinson s off periods of time Pain Assessment - - Compliance: PDMP website checked and validated on 11/28/2023 by Jak Diaz MD All prescriptions have been APPROPRIATELY filled. No suspicious activity was identified. [facility] 05/12/2020 06/22/2021 07/04/2023 Questionnaire [facility] - [facility] Completed Date 05/12/2020 - 07/04/2023 Questionnaire Opiod Risk Tool Opiod Risk Tool Opiod Risk Tool Completed Date 05/12/2020 06/22/2021 07/04/2023 (All drug screens are appropriate unless indicated otherwise) Risk Assessment: DIANNE-7: DIANNE - 7 SCORES 05/12/2023 07/04/2023 10/22/2023 DIANNE-7 Score 12 8 7 (0-4) minimal anxiety, (5-9) mild anxiety, (10-14) moderate anxiety, (15-21) severe anxiety PHQ-9: PHQ-9 05/12/2023 07/04/2023 10/22/2023 Score 16 8 8 (0-4) minimal depression, (5-9) mild depression, (10-14) moderate depression, (15-19) moderately severe depression, (20-27) severe depression Diagnostic Studies: Relevant Imaging: MRI Spine Report MRI CERVICAL SPINE WO IVCON Exam End: 05/10/2020 8:23 AM (Final result) Narrative: * * *Final Report* * * DATE OF EXAM: May 10 2020 8:15AM REMA [id number] - MRI CERVICAL SPINE WO IVCON / PROCEDURE REASON: multiple diagnoses * * * * Physician Interpretation * * * * EXAMINATION: MRI CERVICAL SPINE WO IVCON CLINICAL HISTORY: Spinal stenosis of cervical region - Cervicalgia - Spinal stenosis, spondylolisthesis, torticollis, radiculopathy, trauma - C-spine stenosis, Neck pain, chronic, mechanical TECHNIQUE: Routine cervical spine MR protocol without gadolinium. MQ: [id number] COMPARISON: Cervical spine radiographs 04/06/2020 RESULT: Counting reference: Craniocervical junction. Anatomic Variants: None. Alignment: Straightening of the cervical lordosis with trace grade 1 degenerative spondylolisthesis at C4-5, and minimal retrolisthesis at C5-6. Moderate intervertebral disc space narrowing at C4-5. Craniocervical junction: Craniocervical junction is normal. Cord: Minimal cord abutment at C4-5 due to spondylotic changes, further detailed below. No intramedullary signal abnormality. Bone marrow signal/fracture: Patchy likely reactive marrow edema at the left C3-4 facet joint. No evidence of confluent abnormal marrow replacement or an acute fracture. Small T1/T2 hyperintense lesion suggesting small intraosseous hemangioma within the left T5 pedicle and articular facets. Cervical soft tissues: The paraspinal soft tissues are within normal limits. C2-C3: Shallow disc bulging partially effacing the ventral thecal sac without cord contact. Patent foramina. C3-C4: Small central disc protrusion partially effacing the ventral thecal sac without cord impact. Mild bilateral foraminal stenosis due to uncovertebral and facet hypertrophy. C4-C5: Mild canal stenosis due to shallow disc/osteophyte complex and dorsal ligamentous hypertrophy. No significant cord impact. Patent foramina. C5-C6: Minimal retrolisthesis and disc/osteophyte complex effacing the ventral thecal sac without cord impact. Patent foramina. C6-C7: Canal and foramina are patent. C7-T1: Canal and foramina are patent. No significant canal or foraminal stenosis in the imaged upper thoracic spine to the level of T5-6. Impression: IMPRESSION: Mild cervical spondylosis without high-grade canal or foraminal stenosis. Anatomic Variant: None. Assume 7 cervical vertebrae with counting from the craniocervical junction. Tenant Selector: PSCB Transcribe Date/Time: May 10 2020 8:36A Dictated by : MARIS REMY MD This examination was interpreted and the report reviewed and electronically signed by: MARIS REMY MD on May 10 2020 8:46AM EST X-ray Thoracic and Cervical 03/2023 RESULTS: Counting reference: Craniocervical junction.. Straightening of normal cervical lordosis. Mild amount narrowing C4/C5 moderate to marked narrowing C5/C6 disc spaces. Osteophytes anteriorly at C5-C6 and uncovertebral osteophytes at C5-C6. Less than 2 mm anterior subluxation C4 and C5. Facet degenerative changes throughout the cervical spine with hypertrophic changes at C2-C3 5. The left neural foraminal obliques are over rotated with neuroforaminal narrowing at C3/C4 and C4/C5. Neuroforaminal narrowing at C3/C4 and C4/C5 on the right. Thoracic spine counting reference: The first rib-bearing vertebral bodies considered T1. There are 12 rib-bearing vertebral bodies. Proximally 73 degree kyphosis centered at T6/T7. Vertebral bodies and pedicles are intact. Degenerative disc disease from T1/T2 13th T7/T8. 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 Electrodiagnostic Study (EMG): None Recent Labs: Creatinine Date Value Ref Range Status 11/11/2023 0.66 0.58 - 0.96 mg/dL Final No results found for: EGFR No results found for: PCGLUCOSE Current Medications, Past Medical History, Past Surgical History, Family History, Social History and Review of Systems: On today's date, noted above, I have confirmed and edited as necessary, the PFSH and ROS obtained by others. Physical Exam: 11/28/23 1301 Pulse: 86 Resp: 16 SpO2: 98% Neuro-Upper: Sensation: Grossly intact to light touch in both upper limbs (C5-T1) dermatomes Strength: Deltoid (C5): 5 left, 5 Right Biceps (C6): 5 left, 5 Right Triceps (C7): 5 left, 5 Right Wrist Extensors (C8): 5 left, 5 Right Abduct. Pollicis Brevis (T1): 5 left, 5 Right Muscle Tone: Normal and symmetric throughout, without clonus Reflexes: Increased 3+ and symmetric biceps, triceps, brachioradialis Eisenberg: Negative (Normal) bilaterally Musculoskeletal-Upper: Inspection: Symmetric without atrophy Palpation: Cervical Paraspinal Tenderness: Concordant Greater Occipital Nerves: no tenderness in overlying tissue Paraspinal spasm: Severe Range of Motion: Flexion/Extension: Decreased 50% With end range pain Lateral Bending: Decreased 50% With end range pain Lateral Rotation: Decreased 50% With end range pain IMPRESSION: 78 year old female presents with complaint(s) of axial neck pain, facet-mediated, myofascial overlay. She has not had sustained relief with trigger point injections. Has completed course of PT without improvement. Now s/p RFA, with significantly improved neck pain, except during flare-ups. Diagnoses: (M47.812) Cervical spondylosis without myelopathy (primary encounter diagnosis) (M79.18) Myofascial pain (G20.B1) Parkinson's disease with dyskinesia, unspecified whether manifestations fluctuate PLAN: Lou Oliver would benefit from the following to reach personal goals for decreasing pain, improving function and work participation, and/or improving quality of life: Medications: Ibuprofen Gel Caps 400mg BID PRN (prefer smaller pills given issues swallowing, but Mobic contraindicated due to Sulfa allergy) Neurontin 100mg BID Lidocaine patches, 2 daily, #60 Interventional Procedures: none Studies: None Functional Shinto: Advised soft tissue massage Referrals: No additional considerations at present Follow-up: 3 months Depending on response to the above plan, consider: Repeat RFA vs SPRINT Compliance and Clinic Policies Reviewed and/or Discussed Today: None Attribution: In addition to reviewing the information noted above, some elements copied from my most recent clinical note(s), including the physical exam (completed in entirety today), and the impression and plan sections, have been updated where appropriate. All reflect current medical decision making from today's date. Jak Diaz MD [facility] documented in this encounter [facility] 11-25-2023 Note HNO ID: [id number] Author: JAK DIAZ MD Service: ? Author Type: Physician Type: Progress Notes Filed: 11/28/2023 13:23 Note Text: [facility] Today's Date: 11/28/2023 Last visit: 07/04/2023 08/13/2023 , 08/28/2023 , 10/31/2023 Name: Lou Oliver : 1945 Purpose: Follow-up Patient Evaluation - This is an established patient, returning today for continued evaluation and management of the chief complaint noted below Chief complaint: neck pain Referring Clinician: Marvel Rizzo MD Pertinent Past Medical History: Migraine, Lt. Knee pain, Parkinson disease, Neck pain, Intracranial meningioma, HTN, HLD, Tachycardia, Hypothyroidism, Cervical spondylosis, Anxiety, Pes anserinus bursitis of left knee, Neck muscle weakness, Spinal stenosis of cervical region, Pertinent Past Surgeries: none 08/13/2023 - Lou Oliver is a 78 year old female seen for 08/07/23 #1.Medial Branch Block (Diagnostic only, NO STEROIDS) under fluoroscopic guidance BILATERAL at C4-5 and C5-6 Pain level today: 2/10 Pain Intensity 0 - I have no pain at the moment Personal Care (Washing/Dressing) 0 - I can look after myself normally without causing extra pain Lifting 2 - Pain prevents me from lifting heavy weights off the floor, but I can manage if conveniently positioned (e.g. on a table) Walking 4 - Pain prevents me from walking more than 100 yards Sitting 3 - Pain prevents me from sitting more than 1/2 hour Standing 4 - Pain prevents me from standing more than 10 minutes Sleeping 0 - Pain does not prevent me from sleeping well Sex Life 0 - My sex life is normal and causes no pain Social Life 3 - Pain has restricted my social life and I do not go out as often Traveling 5 - Pain prevents me from traveling except to receive treatment Total Score 21 Interpretation 21% - 40% - moderate disability PLAN: Keep appointment for #2 Medial Branch Block (Diagnostic only, NO STEROIDS) under fluoroscopic guidance BILATERAL SIDES at C4-5 and C5-6 08/28/2023 - Lou Oliver is a 78 year old female seen for neck pain, pain score 2/10 She had a second cervical medial branch block on 08/26/[address] Diaz that is helped the pain here by 90% for 6-10 hours. During this time she was able to walk, move her head and even go to the sore and carry groceries. She has not sustained relief. She is wondering about the RFA. PLAN: We will plan on the bilateral C4/5 5/6 RFA for the long lasting mechanical neck pain. She has had 2 + MBB 10/31/2023 PHILIPPE - Lou Oliver is a 78 year old female seen for after RFA. Patient states she received 50% relief at least from the radiofrequency ablation for her neck. Patient had this procedure done 10/02/2023 from C4-C6. Patient stating it is hard for her to say the amount of relief that may be more than that but she has COVID. Patient stating this is the second time she has had COVID in the last few months. Patient states that she is just achy all over. Patient also states that she feels her Parkinson's will cause her to tense up and that will make her neck pain worse. But overall she does feel that the ablation did help with her symptoms. Date Procedure relief 10/02/2023 B/L RFA C4-C6 50% PLAN: Pt will continue current activity as tolerated Follow up in 5 months Pt is to call if pain level increases and is no longer managed Plan at last visit: Lou Oliver would benefit from the following to reach personal goals for decreasing pain, improving function and work participation, and/or improving quality of life: -Interventional Procedure: Medial branch blocks bilateral C4-5,5-6 under fluoroscopic guidance x 2, RFA if positive x 2 Medication(s): Ibuprofen Gel Caps 400mg BID PRN (prefer smaller pills given issues swallowing, but Mobic contraindicated due to Sulfa allergy) Functional Shinto: No changes-continue current regimen Depending on response to the above plan, consider: RFA -Follow-up: 3 months Interval History: Overall pain and functional disability since last visit: Worse New Complaints since last visit: No She reports that her neck pain overall has been better since the ablation. However, on days when her Parkinson's symptoms are flared-up (like today), she has severe pain in her neck. Her family notes that she is sitting more upright most days. She also finds that her pain worsens as the day progresses, typically after 430pm. She reports her Dopaminergic medications are being adjusted by her Parkinson's doctor. Pain Description: Timing: intermittant Character: aching and burning Primary Location: axial neck and upper traps Radiation: none Exacerbating factors: walking and lying flat Relieving factors: ice and heat, C-collar (uses sparingly) (more content not included)... [facility] 11-19-2023 Note HNO ID: [id number] Author: ERA GAGNON PA-C Service: ? Author Type: Physician Housing Inspectors Type: Progress Notes Filed: 11/19/2023 14:15 Note Text: CHIEF COMPLAINT: Patient presents with: Trouble swallowing: Barium swallow 09/17/23. Has the most trouble swallowing water. Acid reflux concerns. HPI: Accompanied by daughter Lou Oliver is a 78 year old female with PMHx positive for Parkinson's who presents for Trouble swallowing (Barium swallow 09/17/23. Has the most trouble swallowing water. Acid reflux concerns.). Admits to chronic sx of dysphagia since dx of Parkinson's. Feels as though sx have worsened recently. Notes sensations of dysphagia in mid-esophagus with solids. Bms are daily, chronically constipated, no blood/black coloring, drinking more water helps sx. Takes Colace PRN with relief. Regular bloating, no identifiable triggers. Unintentional weight loss of 5 lbs in the past month. Takes excedrin 3x per month for migraines. Colon 2019 Impression: - Diverticulosis in the sigmoid colon and in the transverse colon. - Non-bleeding external and internal hemorrhoids. - No specimens collected. Cookie swallow 08/2023 Impression: 1. No evidence of aspiration 2. There appears to be marked narrowing of the distal esophagus or gastroesophageal junction. Formal esophagram recommended 3. See Speech and Hearing therapist report for further evaluation Component Latest Ref Rng AND Units 11/11/2023 WBC 3.70 - 11.00 k/uL 4.13 RBC 3.90 - 5.20 m/uL 3.79 (L) Hemoglobin 11.5 - 15.5 g/dL 11.6 Hematocrit 36.0 - 46.0 % 36.2 MCV 80.0 - 100.0 fL 95.5 MCH 26.0 - 34.0 pg 30.6 MCHC 30.5 - 36.0 g/dL 32.0 RDW-CV 11.5 - 15.0 % 12.8 Platelet Count 150 - 400 k/uL 240 MPV 9.0 - 12.7 fL 10.1 Absolute nRBC <0.01 k/uL <0.01 Glucose 74 - 99 mg/dL 101 (H) BUN 7 - 21 mg/dL 24 (H) Creatinine 0.58 - 0.96 mg/dL 0.66 Sodium 136 - 144 mmol/L 142 Potassium 3.7 - 5.1 mmol/L 4.2 Chloride 97 - 105 mmol/L 105 CO2 22 - 30 mmol/L 29 Anion Gap 9 - 18 mmol/L 8 (L) Calcium 8.5 - 10.2 mg/dL 9.4 eGFR >=60 mL/min/1.73mA? 90 TSH 0.270 - 4.200 mIU/L 2.390 Record Review: [facility] / Outside records reviewed. PAST MEDICAL HISTORY Diagnosis Date - Diverticulosis of colon (without mention of hemorrhage) - Essential hypertension, benign 04/04/2007 - Mental disorder - Migraine without aura 04/04/2007 - Parkinson disease - Unspecified hypothyroidism 04/04/2007 PAST SURGICAL HISTORY Procedure Laterality Date - DELIVERY ONLY , low cervical x2 - COLONOSCOPY FLX DX W/COLLJ SPEC WHEN PFRMD 1994 Colonoscopy - COLONOSCOPY FLX DX W/COLLJ SPEC WHEN PFRMD 04/07/2012 Colonoscopy - COLONOSCOPY FLX DX W/COLLJ SPEC WHEN PFRMD 06/17/2019 Colonoscopy - DILATION AND CURETTAGE DXAND/THER NONOBSTETRIC 09/1982 Dilation AND curettage - PAST SURGICAL HISTORY OF 02/1996 EMB - TONSILLECTOMY AND ADENOIDECTOMY T/A (under age 12 years) Allergies: ALLERGIES Allergen Reactions - Sulfa (Sulfonamide * Hives Medications: - carbidopa-levodopa CR (SINEMET CR) 50-200 mg per tablet TAKE 1 TABLET BY MOUTH in Morning and before bedtime as instructed. - carbidopa-levodopa (SINEMET) 25-100 mg per tablet Take 1 tab at 7AM, 1.5 to 2 tabs at 11AM, 1.5 tabs at 3PM and 1 tab at 7PM. - gabapentin (NEURONTIN) 100 mg capsule Take 1 capsule by mouth two times a day for 180 days. - fludrocortisone (FLORINEF) 0.1 mg tablet take 1 tablet by mouth every day - ondansetron orally disintegrating (ZOFRAN ODT) 4 mg disintegrating tablet Take 1 tablet by mouth every 6 hours as needed for nausea/vomiting. - LORazepam (ATIVAN) 0.5 mg Take by mouth. - levothyroxine (SYNTHROID) 75 mcg tablet Take 1 tablet by mouth once daily. Take on empty stomach. For Thyroid - sertraline (ZOLOFT) 100 mg tablet Take 1 tablet by mouth once daily. - Cholecalciferol, Vitamin D3, 50 mcg (2,000 unit) cap Take 2,000 Units by mouth once daily. - diclofenac sodium (VOLTAREN) 1 % topical gel APPLY 2 GRAMS TO AFFECTED AREA 4 TIMES A DAY - docusate sodium (COLACE ORAL) Take by mouth as needed. - pravastatin (PRAVACHOL) 20 mg tablet TAKE 1 TABLET BY MOUTH EVERYDAY AT BEDTIME - THERAPEUTIC MULTIVITAMIN TAB Take by mouth. 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 [facility] 11-07-2023 Note HNO ID: [id number] Author: MARY ELY APRN.BUCKET PUSHER Service: ? Author Type: Nurse Practitioner Type: Progress Notes Filed: 11/07/2023 09:04 Note Text: [facility] NEURO-ONCOLOGY VIRTUAL VISIT NOTE I have communicated my name and active licensure. The patient's identity and physical location were verified at the time of this visit. Either the patient or their legal outside medical sales representative has been informed of the risks and benefits of -- and alternatives to -- treatment through a remote evaluation and consents to proceed with the evaluation remotely. 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 - MRI brain today appears stable - Images reviewed with the patient - Recommend follow up appointment with myself via virtual and new MRI brain in 12 months at [place] - Reviewed signs and symptoms that would prompt sooner evaluation - The patient has our contact information and was advised to call if new symptoms, questions or concerns arise prior to next scheduled visit. - All questions were answered. Mary Ely APRN.BUCKET PUSHER Certified Nurse Practitioner cc: Semaj Rodriguez MD--EPIC Subjective HISTORY OF PRESENT ILLNESS: Lou Oliver is a 78 year old year old left-handed female who is here for an incidentally discovered left frontal meningioma. This was discovered in workup for Parkinson's disease. The meningioma was found to have slow interval growth with increase FLAIR changes and she underwent 5 fractions of GKRS from 08/13/23-08/17/23. She presents today for follow up. INTERVAL HISTORY 03/16/21 Since she was last seen she states her Parkinsonian symptoms have improved. Her balance, tremors, anxiety, and depression have improved. She denies any new neurological symptoms or seizures. 03/28/22 Her Parkinson's is stable. She is still ambulatory and is taking PT/OT to help with balance. She denies any seizure like activity. 05/07/23 She has a cataract, which she will likely get removed. She is getting PT for her neck. No seizure activity. She does have ocular migraines. Flashing lights in bilateral peripheral alberts which started when she was in menopause. 11/06/23 Since she was last seen she had COVID x 2. She is doing well. She is having more issues with her Parkinson's such as imbalance. SOCIAL HISTORY: Social History Tobacco Use Smoking status: Never Smokeless tobacco: Never Tobacco comments: Father smoked in childhood home. 2 spouses were smokers. Vaping Use Vaping Use: Never used Substance Use Topics Alcohol use: No Drug use: No PAST MEDICAL HISTORY Diagnosis Date Diverticulosis of colon (without mention of hemorrhage) Essential hypertension, benign 04/04/2007 Mental disorder Migraine without aura 04/04/2007 Parkinson disease Unspecified hypothyroidism 04/04/2007 FAMILY HISTORY Problem Relation Age of Onset Hypertension Mother Arthritis Mother Heart disease Mother Diabetes Father adult onset Emphysema Father Cancer Father lung Asthma Daughter Allergic Rhinitis Daughter Diabetes Paternal Grandmother Ischemic Heart Disease Maternal Grandfather Psychiatry Maternal Grandmother Current Outpatient Medications Medication Sig carbidopa-levodopa CR (SINEMET CR) 50-200 mg per tablet TAKE 1 TABLET BY MOUTH in Morning and before bedtime as instructed. carbidopa-levodopa (SINEMET) 25-100 mg per tablet Take 1 tab at 7AM, 1.5 to 2 tabs at 11AM, 1.5 tabs at 3PM and 1 tab at 7PM. gabapentin (NEURONTIN) 100 mg capsule Take 1 capsule by mouth two times a day for 180 days. fludrocortisone (FLORINEF) 0.1 mg tablet take 1 tablet by mouth every day ondansetron orally disintegrating (ZOFRAN ODT) 4 mg disintegrating tablet Take 1 tablet by mouth every 6 hours as needed for nausea/vomiting. LORazepam (ATIVAN) 0.5 mg Take by mouth. pravastatin (PRAVACHOL) 20 mg tablet TAKE 1 TABLET BY MOUTH EVERYDAY AT BEDTIME levothyroxine (SYNTHROID) 75 mcg tablet Take 1 tablet by mouth once daily. Take on empty stomach. For Thyroid sertraline (ZOLOFT) 100 mg tablet Take 1 tablet by mouth once daily. Cholecalciferol, Vitamin D3, 50 mcg (2,000 unit) cap Take 2,000 Units by mouth once daily. diclofenac sodium (VOLTAREN) 1 % topical gel APPLY 2 GRAMS TO AFFECTED AREA 4 TIMES A DAY docusate sodium (COLACE ORAL) Take by mouth as needed. THERAPEUTIC MULTIVITAMIN TAB Take by mouth. No current facility-administered medications for this visit. REVIEW OF SYSTEMS : Neurological : No complaint of headache No complaint of tinnitus No complaint of decreased hearing No complaint of diplopia No complaints of blurred vision. No complaint of arm/leg numbness No problem with limb coordina (more content not included)... [facility] 11-06-2023 Note HNO ID: [id number] Author: GRACE GONZALEZ RT(Aki) Service: ? Author Type: Technologist Type: Progress Notes Filed: 11/06/2023 14:16 Note Text: Radiology Service Progress Note DATE OF SERVICE: November 06, 2023 TIME: 2:16 PM PATIENT IDENTITY VERIFICATION COMPLETED USING TWO (2) STANDARD IDENTIFIERS: Name and Date of confirmed by patient verbally. FALL SCREENING: Has the patient had 2 falls in the last year or 1 fall with injury or currently using an Ambulatory Assistive Device (Walker, Cane, Wheelchair, Crutches, etc.)? Yes, Patient High Risk for Falls What interventions were put in place to prevent falls during this visit? Instructed Patient to Call for Help if Needed, Offered Assistance with Transfers/Clothing, Instructed Patient to Remain Seated (Not on Exam Table) Until Exam, and Increased Observations by Caregivers PATIENT GENDER DATA: Female. status: : No status: NO. PATIENT RELEVANT IMPLANT DATA REVIEWED: Yes ALLERGIES: Reviewed and unchanged CONTRAST ALLERGY: NO. EXAM: MRI - CONTRAST TYPE: GROUP II PERIPHERAL IV DATA: Ambulatory: A peripheral IV was started in the Right antecubital site with a Angio cath: 22 gauge. RADIOLOGY DEPARTMENT: MR; Exam(s) Completed: Head: Routine Brain SIGNATURE: RT Radha(R) PATIENT NAME: Lou Oliver DATE: November 06, 2023 TIME: 2:16 PM [facility] 10-31-2023 Note HNO ID: [id number] Author: GRACE HUNT APRN.ADRIANNA Service: ? Author Type: Nurse Practitioner Type: Progress Notes Filed: 10/31/2023 14:01 Note Text: VIRTUAL VISIT PROGRESS NOTE This is a virtual visit using [employer] Video Visit. It required patient-provider interaction for the medical decision making as documented below. I have communicated my name and active licensure. The patient's identity and physical location were verified at the time of this visit. Either the patient or their legal outside medical sales representative has been informed of the risks and benefits of -- and alternatives to -- treatment through a remote evaluation and consents to proceed with the evaluation remotely. Lou Oliver is a 78 year old female seen for after RFA. Patient states she received 50% relief at least from the radiofrequency ablation for her neck. Patient had this procedure done 10/02/2023 from C4-C6. Patient stating it is hard for her to say the amount of relief that may be more than that but she has COVID. Patient stating this is the second time she has had COVID in the last few months. Patient states that she is just achy all over. Patient also states that she feels her Parkinson's will cause her to tense up and that will make her neck pain worse. But overall she does feel that the ablation did help with her symptoms. Date Procedure relief 10/02/2023 B/L RFA C4-C6 50% HISTORY REVIEWED (electronic chart updated): PAST MEDICAL HISTORY Diagnosis Date Diverticulosis of colon (without mention of hemorrhage) Essential hypertension, benign 04/04/2007 Mental disorder Migraine without aura 04/04/2007 Parkinson disease Unspecified hypothyroidism 04/04/2007 PAST SURGICAL HISTORY Procedure Laterality Date DELIVERY ONLY , low cervical x2 COLONOSCOPY FLX DX W/COLLJ SPEC WHEN PFRMD 1994 Colonoscopy COLONOSCOPY FLX DX W/COLLJ SPEC WHEN PFRMD 04/07/2012 Colonoscopy COLONOSCOPY FLX DX W/COLLJ SPEC WHEN PFRMD 06/17/2019 Colonoscopy DILATION AND CURETTAGE DXAND/THER NONOBSTETRIC 09/1982 Dilation AND curettage PAST SURGICAL HISTORY OF 02/1996 EMB TONSILLECTOMY AND ADENOIDECTOMY T/A (under age 13 years) FAMILY HISTORY Problem Relation Age of Onset Hypertension Mother Arthritis Mother Heart disease Mother Diabetes Father adult onset Emphysema Father Cancer Father lung Asthma Daughter Allergic Rhinitis Daughter Diabetes Paternal Grandmother Ischemic Heart Disease Maternal Grandfather Psychiatry Maternal Grandmother Social History Tobacco Use Smoking status: Never Smokeless tobacco: Never Tobacco comments: Father smoked in childhood home. 2 spouses were smokers. Vaping Use Vaping Use: Never used Substance Use Topics Alcohol use: No Drug use: No Current Outpatient Medications Medication Sig nirmatrelvir tablet 300 mg (150 mg x 2) and ritonavir tablet 100 mg in a dose pack (PAXLOVID) Administer TWO pink nirmatrelvir 150 mg tablets and ONE white ritonavir 100 mg tablet for a total of three tablets twice daily. carbidopa-levodopa CR (SINEMET CR) 50-200 mg per tablet TAKE 1 TABLET BY MOUTH in Morning and before bedtime as instructed. carbidopa-levodopa (SINEMET) 25-100 mg per tablet Take 1 tab at 7AM, 1.5 to 2 tabs at 11AM, 1.5 tabs at 3PM and 1 tab at 7PM. gabapentin (NEURONTIN) 100 mg capsule Take 1 capsule by mouth two times a day for 180 days. fludrocortisone (FLORINEF) 0.1 mg tablet take 1 tablet by mouth every day ondansetron orally disintegrating (ZOFRAN ODT) 4 mg disintegrating tablet Take 1 tablet by mouth every 6 hours as needed for nausea/vomiting. LORazepam (ATIVAN) 0.5 mg Take by mouth. pravastatin (PRAVACHOL) 20 mg tablet TAKE 1 TABLET BY MOUTH EVERYDAY AT BEDTIME levothyroxine (SYNTHROID) 75 mcg tablet Take 1 tablet by mouth once daily. Take on empty stomach. For Thyroid sertraline (ZOLOFT) 100 mg tablet Take 1 tablet by mouth once daily. Cholecalciferol, Vitamin D3, 50 mcg (2,000 unit) cap Take 2,000 Units by mouth once daily. diclofenac sodium (VOLTAREN) 1 % topical gel APPLY 2 GRAMS TO AFFECTED AREA 4 TIMES A DAY docusate sodium (COLACE ORAL) Take by mouth as needed. THERAPEUTIC MULTIVITAMIN TAB Take by mouth. No current facility-administered medications for this visit. ALLERGIES Allergen Reactions Sulfa (Sulfonamide * Hives REVIEW OF SYSTEMS: GENERAL: all over malaise due to covid HEENT: denies [place], change in hearing or vision, no other ENT complaints NECK: mild neck pain RESPIRATORY: no cough, no wheezing or shortness of breath CARDIOVASCULAR: no chest pain, no palpitations MUSCULOSKELETAL: denies any painful or swollen joints, no muscle aches SKIN: no rash PSYCH: denies depressed or anxious mood, sleep is normal NEURO: no numbness or paresthesias and no weakness of the extremities PHYSICAL EXAMINATION: VIDEO EXAM: (if completed, performed via video enabled technology) GENERAL: aler (more content not included)... [facility] 10-29-2023 Note HNO ID: [id number] Author: WANDA KRUGER APRN.BUCKET PUSHER Service: ? Author Type: Nurse Practitioner Type: Progress Notes Filed: 10/29/2023 13:02 Note Text: This Team Access Model visit is a virtual encounter. It required patient-provider interaction for the medical decision making as documented below. I have communicated my name and active licensure. The patient's identity and physical location were verified at the time of this visit. Either the patient or their legal outside medical sales representative has been informed of the risks and benefits of -- and alternatives to -- treatment through a remote evaluation and consents to proceed with the evaluation remotely. Patient Location: [place] CC: Patient presents with: Covid19 Concern HPI: Lou Oliver is a 78 year old female who is contacted today for a virtual visit. This is an established patient of Dr. Marvel Rizzo MD. COVID positive test on 10/29, day 2 of symptoms. Symptoms are mild REVIEW OF SYSTEMS See HPI PAST MEDICAL HISTORY Diagnosis Date Diverticulosis of colon (without mention of hemorrhage) Essential hypertension, benign 04/04/2007 Mental disorder Migraine without aura 04/04/2007 Parkinson disease Unspecified hypothyroidism 04/04/2007 PAST SURGICAL HISTORY Procedure Laterality Date DELIVERY ONLY , low cervical x2 COLONOSCOPY FLX DX W/COLLJ SPEC WHEN PFRMD 1994 Colonoscopy COLONOSCOPY FLX DX W/COLLJ SPEC WHEN PFRMD 04/07/2012 Colonoscopy COLONOSCOPY FLX DX W/COLLJ SPEC WHEN PFRMD 06/17/2019 Colonoscopy DILATION AND CURETTAGE DXAND/THER NONOBSTETRIC 09/1982 Dilation AND curettage PAST SURGICAL HISTORY OF 02/1996 EMB TONSILLECTOMY AND ADENOIDECTOMY T/A (under age 13 years) ALLERGIES Sulfa (Sulfonamide Antibiotics) MEDICATIONS carbidopa-levodopa CR (SINEMET CR) 50-200 mg per tablet TAKE 1 TABLET BY MOUTH in Morning and before bedtime as instructed. carbidopa-levodopa (SINEMET) 25-100 mg per tablet Take 1 tab at 7AM, 1.5 to 2 tabs at 11AM, 1.5 tabs at 3PM and 1 tab at 7PM. gabapentin (NEURONTIN) 100 mg capsule Take 1 capsule by mouth two times a day for 180 days. fludrocortisone (FLORINEF) 0.1 mg tablet take 1 tablet by mouth every day ondansetron orally disintegrating (ZOFRAN ODT) 4 mg disintegrating tablet Take 1 tablet by mouth every 6 hours as needed for nausea/vomiting. LORazepam (ATIVAN) 0.5 mg Take by mouth. pravastatin (PRAVACHOL) 20 mg tablet TAKE 1 TABLET BY MOUTH EVERYDAY AT BEDTIME (Patient not taking: Reported on 10/25/2023) levothyroxine (SYNTHROID) 75 mcg tablet Take 1 tablet by mouth once daily. Take on empty stomach. For Thyroid sertraline (ZOLOFT) 100 mg tablet Take 1 tablet by mouth once daily. Cholecalciferol, Vitamin D3, 50 mcg (2,000 unit) cap Take 2,000 Units by mouth once daily. diclofenac sodium (VOLTAREN) 1 % topical gel APPLY 2 GRAMS TO AFFECTED AREA 4 TIMES A DAY docusate sodium (COLACE ORAL) Take by mouth as needed. THERAPEUTIC MULTIVITAMIN TAB Take by mouth. (Patient not taking: Reported on 10/25/2023) FAMILY HISTORY Problem Relation Age of Onset Hypertension Mother Arthritis Mother Heart disease Mother Diabetes Father adult onset Emphysema Father Cancer Father lung Asthma Daughter Allergic Rhinitis Daughter Diabetes Paternal Grandmother Ischemic Heart Disease Maternal Grandfather Psychiatry Maternal Grandmother Social History Tobacco Use Smoking status: Never Smokeless tobacco: Never Tobacco comments: Father smoked in childhood home. 2 spouses were smokers. Vaping Use Vaping Use: Never used Substance Use Topics Alcohol use: No Drug use: No Exam Virtual visit completed using video, limited exam completed. GENERAL: Ill-appearing, but non-toxic HEENT: no conjunctival injection, pupils equal and moist mucous membranes PULMONARY: breathing comfortably on room air , no coughing noted, and no wheezing noted ASSESSMENT/PLAN: 1. COVID-19 virus infection - ICD9: 079.89, ICD10: U07.1 Nirmatrelvir/Ritonavir (Paxlovid) Eligibility and Patient Discussion [facility] Formulary Restriction Criteria: Adult outpatients 18 years and older with ALL of the following: [x] Patient has positive SARS-COV-2 viral test (PCR or antigen test) during current illness [x] Patient has symptoms for 5 days or less [x] Not requiring hospitalization at any time for management of COVID-19 [x] Not requiring supplemental oxygen or a change in baseline supplemental oxygen [x] Not utilized for pre-exposure or post-exposure prophylaxis for prevention of COVID-19 [x] Patient does not have severe renal impairment (eGFR < 30 mL/min) or severe hepatic impairment (Child-[place] Class C) [x] Meeting at least one of the criteria for high risk of progression to severe COVID-19: [x] Age over 65 years [] Cancer [] Chronic kidney disease [] Chronic liver disease [] Chronic lung diseases, including cystic fibrosis [] Samantha (more content not included)... [facility] 10-25-2023 Note HNO ID: [id number] Author: RANJAN CONNOLLY JR, MD Service: ? Author Type: Physician Type: Progress Notes Filed: 10/25/2023 17:45 Note Text: ESTABLISHED PATIENT VISIT CHIEF COMPLAINT: Follow Up HISTORY OF PRESENT ILLNESS: Lou Oliver is a 78 year old female, BMI 22.62 kg/m2 with a PMH significant for and per last office visit of 07/25/23 with Alberto SHI.: Regarding Parkinson's, patient is pleased with current regimen, still endorsing some nausea when taking her Sinemet throughout the day, no vomiting. Wearing compression socks with improvement in her symptoms as well. Notes that her sleeping is improved as well since last appointment. Overall, patient is doing well, no changes in regimen today. Did prescribe U step walker at last appointment, patient has yet to get this. Encouraged her to do so, states that she tried her friends U step walker and did like this. Patient also continuing to do exercise classes as well. Patient is endorsing some issues with swallowing liquids, has appointment with speech therapy next week and encouraged to keep this appointment. Per my last note of 03/25/23: 1. Parkinson disease (HCC) - ICD9: 332.0, ICD10: G20 (primary diagnosis) Patient with increasing on-off effect of Sinemet as noted above. Most of visit was spent focused on this condition and discussing ways to treat. We did discuss meds such as Rytary and Comtan but pt concerned about costs of such and/or increased number of meds needing to be taken. After further discussion, attempt will be made to take Sinemet less frequent through the day but at a higher dose with superimposed dosing of Sinemet CR in attempt to avoid complete off effect of medication. Dosing as follows: Sinemet 25/100mg dose: -Take 1.5 tabs at 730AM (after eating something). -Take 1.5 tabs at 1130AM. -Take 1.5 tabs at 330PM (after lunch). -Take 1.5 tabs at 730 PM 2. Sinemet CR 50/200mg dose: -Take 1 tablet with your 730AM dose of short acting Sinemet. -Take 1 tablet at 10-11 PM. SE and ADRs d/w pt and her daughter. They agree with plan. 2. 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 No additional meds at this time per patient request. Warned of injury risks with such disorder and d/w them both treatment options. Pt will consider if symptoms worsen. For now no additional meds. 3. Small fiber neuropathy - ICD9: 356.9, ICD10: G62.9 Stable on gabapentin 100mg TID. No changes in dosing today. Confirmed current Sinemet regimen with pt. Note she on an off period right now as just took Sinemet 15 minutes ago. She feels off periods are becoming longer and feels the 11AM to 3PM is not doing much. Good in morning and evening but from 1030AM to 2PM per daughter is when she is at her worst -- as result does not get to her PD classes -- increased tremor and limited mobility. Sinemet 25/100mg dose: -Take 1 tabs at 7AM (after eating something). -Take 1 tabs at 11AM. -Take 1.5 tabs at 3PM (after lunch). -Take 1 tabs at 7PM 2. Sinemet CR 50/200mg dose: -Take 1 tablet with your 7AM dose of short acting Sinemet. -Take 1 tablet at 11 PM. Pt did have cervical RFA 3 weeks ago and neck is still sore. States does not feels any improvement in symptoms. Currently feels like she is doing well on the Sinemet. Reports nausea was not as bad. No RBD symptoms. REVIEW OF SYSTEMS GENERAL:No weight loss, malaise or fevers. HEENT:Negative for frequent or significant headaches, No changes in hearing or vision, no nose bleeds or other nasal problems NECK:See HPI. RESPIRATORY: Negative for cough, wheezing or shortness of breath. CARDIOVASCULAR: Negative for chest pain, leg swelling or palpitations. GASTROINTESTINAL: Negative for abdominal discomfort, blood in stools or black stools or change in bowel habits GENITOURINARY: No history of dysuria, frequency or incontinence MUSCULOSKELETAL: See HPI. NEUROLOGIC:See HPI. LAB/IMAGING: Those performed since patient's last visit have been reviewed. WBC (k/uL) Date Value 05/15/2023 4.46 RBC (m/uL) Date Value 05/15/2023 3.68 (L) Hemoglobin (g/dL) Date Value 05/15/2023 11.5 Hematocrit (%) Date Value 05/15/2023 35.3 (L) MCV (fL) Date Value 05/15/2023 95.9 MCH (pg) Date Value 05/15/2023 31.3 MCHC (g/dL) Date Value 05/15/2023 32.6 RDW-CV (%) Date Value 05/15/2023 12.1 Platelet Count (k/uL) Date Value 05/15/2023 215 MPV (fL) Date Value 05/15/2023 10.8 Glucose (mg/dL) Date Value 05/15/2023 87 BUN (mg/dL) Date Value 05/15/2023 18 Creatinine (mg/dL) Date Value 05/15/2023 0.76 Sodium (mmol/L) Date Value 05/15/2023 137 Potassium (mmol/L) Date Value 05/15/2023 4.5 Chloride (mmol/L) Date Value 05/15/2023 103 CO2 (mmol/L) Date Value 05/15/2023 24 Protein, Total (g/dL) Date Value 05/15/2023 7.0 Albumin (g/dL) Date Value 05/15/2023 4.4 (more content not included)... [facility] 10-25-2023 Note HNO ID: [id number] Author: MARGARETTE LEOS LPN Service: ? Author Type: LICENSED NURSE Type: Progress Notes Filed: 10/25/2023 17:45 Note Text: 10/22/2023 PROMIS Global Health Physical Health Summary Physical health: Good Everyday physical activity, ability: Moderately Fatigue: Moderate Pain level: 6 General health: Good Social activities/roles, ability: Good Physical Health T-Score 39.8 (Fair) Physical Health Percentile 15 PROMIS Global Health Mental Health Summary Quality of life: Good Mental health (mood,thinking): Good Social satisfaction: Good Emotional problems (anxious,depressed): Sometimes Mental Health T-Score 43.5 (Good) Mental Health Percentile 26 PHQ-9 Score: 8(Mild Depression) PHQ-9 Self-Harm: Not at all DIANNE-7 Score: 7(Mild Anxiety) NEURO-QOL Cognitive Function T-Score 37(Moderate Dysfunction) Neuro-Qol Cognitive Function Percentile 10 PROMIS Physical Function T-Score 38(Moderate Dysfunction) PROMIS Physical Function Percentile 12 PROMIS Pain Interference T-Score 67(Moderate) PROMIS Pain Interference Percentile 4 Percentiles provide an indication of how a patient's score ranks in relation to the [place] general population. > 31st percentile is within normal limits or better *< 31st percentile is at least ? SD worse than population, which may be clinically relevant < 16th percentile is at least 1 SD worse than population and warrants attention [facility] 10-02-2023 Nurse Note Order has been placed in the patient's chart with the following parameters for discharge from the physician: Patient is alert and oriented Vitals: Diastolic/Systolic +/- 20mmHg Respirations: 12-18 Pulse: 60-100 SpO2 is greater than or equal to 90% Patient has no nausea or vomiting Patient has no dizziness Pain level is +/- 2 from initial evaluation Dressing, dry and intact with no evidence of bleeding Criteria has been met, patient is okay to be discharged per the physician. Physician has gone in and evaluated the patient. Dressing dry and intact. No drainage noted. The patient denies nausea, numbness, tingling, weakness, shortness of breath, dizziness, or headache. Pain level 8/10. Vital signs within normal limits. Patient denied needing walked out by clinical staff. Patient given discharge instructions and sent to transportation via wheelchair method. Patient left in good condition. Procedure to be performed: BILATERAL C4/C5,C5/C6 CERVICAL RADIOFREQUENCY ABLATION Patient was wheeled on stretcher from pre op bay to procedure room and assisted onto the procedure tablePatient s procedure was performed in an [facility] Procedure room. Pause completed at each level by provider to verify correct level and laterality placement Pressure was applied to patient s injection site(s) and bleeding was minimal. Patient had no complaint of shortness of breath, dizziness, headache, numbness, tingling, weakness or complications from procedure. Patient was assisted from the procedure table onto the stretcher and wheeled into a post op bay. Patient was advised a clinician will be to obtain another set of vitals. Time Out: 957 Confirmed patient name, date of , procedure site, laterality, and allergies Procedure Start: 1001 Procedure End: 1026 Addiction Therapist's Name: DEBRA Are you on a blood thinner: NO If yes, is a hold required: NO Last dose of blood thinner: NO INR Result today: NO Do you require a Lovenox bridge:NO Are you a diabetic:NO Are you/or could you be : NO Are you taking Xanax for the procedure: NO Are you currently on a steroid? NO Are you currently on an antibiotic: NO Have you had a COVID-19 vaccine in the last 14 days Or are you scheduled to receive one? NO documented in this encounter [facility] 10-02-2023 Note HNO ID: [id number] Author: Jak Diaz MD Service: ? Author Type: Physician Type: Progress Notes Filed: 10/02/2023 11:26 AM Note Text: [facility] Date: 10/02/2023 Patient name: Lou Oliver Physician performing procedure: Jak Diaz M.D., M.B.A. Diagnosis: (M47.812) Cervical spondylosis without myelopathy (primary encounter diagnosis) Procedure: Radiofrequency Ablation (Thermal RFA) - Cervical Medial Branches under fluoroscopic guidance BILATERAL SIDES at C4-5 and C5-6 Injectate: A total of 4 ml volume was injected The injectate consisted of: 1 ml of Dexamethasone (10mg/ml), The remainder consisting of 0.75% Bupivacaine, . Each site received equal volumes of this injectate. Comments: Weak motor stim throughout on left, moderate throughout on right. Improvement after today's procedure: as per nursing report HPI: Lou Oliver is an 78 year old FEMALE who presents today, in pain, for the procedure noted above. Review of Systems: Pertinent Positives: MSK: pain in the region being treated Neuro: no weakness or numbness in the region being treated Skin: Negative (No itching) Eyes: Negative (No blurred or double vision) Respiratory: Negative (No Cough, [id number], Dyspnea on exertion, wheezing) Cardiovascular: Negative (No Chest Pain, Tightness, Pressure, Palpitations) Gastrointestinal: Negative (No Abdominal pain, Nausea, Vomiting, Constipation, Diarrhea) Genitourinary: Negative (No dysuria) Hematologic: Negative (No bleeding, bruising) OB: is Denied or Not Applicable Endocrine: Negative (No hot/cold intolerance) Psychiatric: Negative (No depression, anxiety or suicidal ideation) PAST MEDICAL HISTORY Diagnosis Date Diverticulosis of colon (without mention of hemorrhage) Essential hypertension, benign 04/04/2007 Mental disorder Migraine without aura 04/04/2007 Parkinson disease Unspecified hypothyroidism 04/04/2007 PAST SURGICAL HISTORY Procedure Laterality Date DELIVERY ONLY , low cervical x2 COLONOSCOPY FLX DX W/COLLJ SPEC WHEN PFRMD 1994 Colonoscopy COLONOSCOPY FLX DX W/COLLJ SPEC WHEN PFRMD 04/07/2012 Colonoscopy COLONOSCOPY FLX DX W/COLLJ SPEC WHEN PFRMD 06/17/2019 Colonoscopy DILATION AND CURETTAGE DXAND/THER NONOBSTETRIC 09/1982 Dilation AND curettage PAST SURGICAL HISTORY OF 02/1996 EMB TONSILLECTOMY AND ADENOIDECTOMY T/A (under age 12 years) FAMILY HISTORY Problem Relation Age of Onset Hypertension Mother Arthritis Mother Heart disease Mother Diabetes Father adult onset Emphysema Father Cancer Father lung Asthma Daughter Allergic Rhinitis Daughter Diabetes Paternal Grandmother Ischemic Heart Disease Maternal Grandfather Psychiatry Maternal Grandmother Social History Tobacco Use Smoking status: Never Smokeless tobacco: Never Tobacco comments: Father smoked in childhood home. 2 spouses were smokers. Vaping Use Vaping Use: Never used Substance Use Topics Alcohol use: No Drug use: No Current Outpatient Medications on File Prior to Visit Medication Sig ondansetron orally disintegrating (ZOFRAN ODT) 4 mg disintegrating tablet Take 1 tablet by mouth every 6 hours as needed for nausea/vomiting. fludrocortisone (FLORINEF) 0.1 mg tablet Take 1 tablet by mouth once daily. LORazepam (ATIVAN) 0.5 mg Take by mouth. pravastatin (PRAVACHOL) 20 mg tablet TAKE 1 TABLET BY MOUTH EVERYDAY AT BEDTIME levothyroxine (SYNTHROID) 75 mcg tablet Take 1 tablet by mouth once daily. Take on empty stomach. For Thyroid sertraline (ZOLOFT) 100 mg tablet Take 1 tablet by mouth once daily. carbidopa-levodopa CR (SINEMET CR) 50-200 mg per tablet TAKE 1 TABLET BY MOUTH in Morning and before bedtime as instructed. gabapentin (NEURONTIN) 100 mg capsule Take 1 capsule by mouth three times daily for 180 days. Cholecalciferol, Vitamin D3, 50 mcg (2,000 unit) cap Take 2,000 Units by mouth once daily. diclofenac sodium (VOLTAREN) 1 % topical gel APPLY 2 GRAMS TO AFFECTED AREA 4 TIMES A DAY docusate sodium (COLACE ORAL) Take by mouth as needed. THERAPEUTIC MULTIVITAMIN TAB Take by mouth. No current facility-administered medications on file prior to visit. Objective Exam: Vitals: As per nursing documentation Constitutional: Normal Appearance, Oriented to Time, Place and Person Head: No lacerations, no external signs of trauma Eyes: Conjunctiva clear. No discharge from the eyes Cardiovascular: Appears well-perfused Pulmonary: Non-labored respirations Abdominal: Non-distended Skin: No visible rashes or ecchymosis Psychiatric: Mood appropriate for given condition Neurological: Gross movements are limited by pain, but otherwise unremarkable Data Reviewed: Nursing note and vitals reviewed. Additional imaging reviewed as appropriate Assessment and Plan: As noted abov (more content not included)... [facility] 10-02-2023 History of Present illness Narrative [facility] Date: 10/02/2023 Patient name: Lou Oliver Physician performing procedure: Jak Diaz M.D., M.B.A. Diagnosis: (M47.812) Cervical spondylosis without myelopathy (primary encounter diagnosis) Procedure: Radiofrequency Ablation (Thermal RFA) - Cervical Medial Branches under fluoroscopic guidance BILATERAL SIDES at C4-5 and C5-6 Injectate: A total of 4 ml volume was injected The injectate consisted of: 1 ml of Dexamethasone (10mg/ml), The remainder consisting of 0.75% Bupivacaine, . Each site received equal volumes of this injectate. Comments: Weak motor stim throughout on left, moderate throughout on right. Improvement after today's procedure: as per nursing report HPI: Lou Oliver is an 78 year old FEMALE who presents today, in pain, for the procedure noted above. Review of Systems: Pertinent Positives: MSK: pain in the region being treated Neuro: no weakness or numbness in the region being treated Skin: Negative (No itching) Eyes: Negative (No blurred or double vision) Respiratory: Negative (No Cough, [id number]-sjetyc, Dyspnea on exertion, wheezing) Cardiovascular: Negative (No Chest Pain, Tightness, Pressure, Palpitations) Gastrointestinal: Negative (No Abdominal pain, Nausea, Vomiting, Constipation, Diarrhea) Genitourinary: Negative (No dysuria) Hematologic: Negative (No bleeding, bruising) OB: is Denied or Not Applicable Endocrine: Negative (No hot/cold intolerance) Psychiatric: Negative (No depression, anxiety or suicidal ideation) PAST MEDICAL HISTORY Diagnosis Date Diverticulosis of colon (without mention of hemorrhage) Essential hypertension, benign 04/04/2007 Mental disorder Migraine without aura 04/04/2007 Parkinson disease Unspecified hypothyroidism 04/04/2007 PAST SURGICAL HISTORY Procedure Laterality Date DELIVERY ONLY , low cervical x2 COLONOSCOPY FLX DX W/COLLJ SPEC WHEN PFRMD 1994 Colonoscopy COLONOSCOPY FLX DX W/COLLJ SPEC WHEN PFRMD 04/07/2012 Colonoscopy COLONOSCOPY FLX DX W/COLLJ SPEC WHEN PFRMD 06/17/2019 Colonoscopy DILATION & CURETTAGE DX&/THER NONOBSTETRIC 09/1982 Dilation & curettage PAST SURGICAL HISTORY OF 02/1996 EMB TONSILLECTOMY & ADENOIDECTOMY <AGE 13 T/A (under age 13 years) FAMILY HISTORY Problem Relation Age of Onset Hypertension Mother Arthritis Mother Heart disease Mother Diabetes Father adult onset Emphysema Father Cancer Father lung Asthma Daughter Allergic Rhinitis Daughter Diabetes Paternal Grandmother Ischemic Heart Disease Maternal Grandfather Psychiatry Maternal Grandmother Social History Tobacco Use Smoking status: Never Smokeless tobacco: Never Tobacco comments: Father smoked in childhood home. 2 spouses were smokers. Vaping Use Vaping Use: Never used Substance Use Topics Alcohol use: No Drug use: No Current Outpatient Medications on File Prior to Visit Medication Sig ondansetron orally disintegrating (ZOFRAN ODT) 4 mg disintegrating tablet Take 1 tablet by mouth every 6 hours as needed for nausea/vomiting. fludrocortisone (FLORINEF) 0.1 mg tablet Take 1 tablet by mouth once daily. LORazepam (ATIVAN) 0.5 mg Take by mouth. pravastatin (PRAVACHOL) 20 mg tablet TAKE 1 TABLET BY MOUTH EVERYDAY AT BEDTIME levothyroxine (SYNTHROID) 75 mcg tablet Take 1 tablet by mouth once daily. Take on empty stomach. For Thyroid sertraline (ZOLOFT) 100 mg tablet Take 1 tablet by mouth once daily. carbidopa-levodopa CR (SINEMET CR) 50-200 mg per tablet TAKE 1 TABLET BY MOUTH in Morning and before bedtime as instructed. gabapentin (NEURONTIN) 100 mg capsule Take 1 capsule by mouth three times daily for 180 days. Cholecalciferol, Vitamin D3, 50 mcg (2,000 unit) cap Take 2,000 Units by mouth once daily. diclofenac sodium (VOLTAREN) 1 % topical gel APPLY 2 GRAMS TO AFFECTED AREA 4 TIMES A DAY docusate sodium (COLACE ORAL) Take by mouth as needed. THERAPEUTIC MULTIVITAMIN TAB Take by mouth. No current facility-administered medications on file prior to visit. Objective Exam: Vitals: As per nursing documentation Constitutional: Normal Appearance, Oriented to Time, Place and Person Head: No lacerations, no external signs of trauma Eyes: Conjunctiva clear. No discharge from the eyes Cardiovascular: Appears well-perfused Pulmonary: Non-labored respirations Abdominal: Non-distended Skin: No visible rashes or ecchymosis Psychiatric: Mood appropriate for given condition Neurological: Gross movements are limited by pain, but otherwise unremarkable Data Reviewed: Nursing note and vitals reviewed. Additional imaging reviewed as appropriate Assessment and Plan: As noted above [place] protocol documentation / Pre-Procedure Checklist: Consent: Obtained in writing prior to procedure I had a nice discussion with the patient today about their current pain and the pathology that could be causing it We discussed different treatment options, including risks, benefits and alternatives. We agreed to proceed as previously discussed, or the plan was modified in accordance with the comments noted above Unless stated otherwise in the procedure note, the risks include but are not limited to infection, allergic reaction, increased pain, lack of therapeutic benefit, steroid reaction, nerve damage, paralysis, stroke, epidural hematoma, syncope, headache, respiratory or cardiac arrest, pneumothorax, and scar formation Once the plan was agreed upon, the patient gave written consent to proceed and was transported into the procedure room Surgical/Procedure pause or Time Out : Time Out was led by the physician in the procedure room, with the patient and all staff present and participating The following information was verified during the Time Out process: Patient name, patient date of , procedure site (marked), laterality, anticoagulants and allergies Procedure: The patient was prepped and draped in a sterile fashion in the prone position after informed consent was signed and all patient questions were answered including the risks, benefits, alternative treatment options, and prognosis. The risks are as mentioned above. To denervate the facet joint nerves noted above, the lateral masses of these respective levels were localized under fluoroscopic visualization. An outer 10 cannula was inserted down the waist at the above-mentioned cervical levels. The needle was then walked off until it rested just lateral to the trough of the lateral mass of the medial branch nerve, which innervates the cervical facet joint, lies. For all these levels, the outer introducer needle was brought to the levels noted. Subsequently, AP and lateral images were used to confirm location. The denervation/stimulation probe was inserted into the cannula and stimulation was carried out at motor levels to make sure there was expected stimulation without a radicular pattern. Subsequently, this was removed and then 1-2 ccs. of 2% Lidocaine without Epinephrine were injected at each level. Subsequent to this, a pulsed neurotomy was carried out for 90 seconds at 55 degrees Celsius. Then, denervation of the facet nerves (medial branches of the dorsal rami which innervates the facet joints) was carried out at 80 degrees Celsius for 90 seconds. Then the cannulas were repositioned to get one additional lesion at each level for better efficacy. The above procedure was repeated for each facet joint nerve mentioned above. Radiographs were obtained at each level (unless otherwise noted) to verify probe placement during the neurotomy. Please see the nursing note for exact times (time out, procedure start, procedure end). After careful removal of the needle, there was minimal bleeding. The injection site was covered with appropriate sterile dressing. The patient was noted to have tolerated the procedure well and was discharged after an appropriate period of post-procedure observation. The patient was instructed to contact us if there were any complications. The patient was advised to follow-up with the requesting physician within one to two weeks or as per their requested follow-up plan. Post procedure visit summary with written instructions was offered to the patient. Jak Diaz MD, MBA Pain Management [facility] Review of Systems Constitutional: Positive for activity change. Negative for chills, fever and unexpected weight change. Gastrointestinal: Negative for bowel retention or incontinence Genitourinary: Negative for difficulty urinating. Negative for bladder retention or incontinence Musculoskeletal: Positive for arthralgias, gait problem, neck pain and neck stiffness. Negative for back pain, joint swelling and myalgias. Neurological: Positive for headaches. Negative for weakness and numbness. Psychiatric/Behavioral: Positive for sleep disturbance. Negative for dysphoric mood and suicidal ideas. The patient is nervous/anxious. documented in this encounter [facility] 10-02-2023 Note HNO ID: [id number] Author: Sheron Crowder LPN Service: ? Author Type: LICENSED NURSE Type: Progress Notes Filed: 10/02/2023 11:26 AM Note Text: Review of Systems Constitutional: Positive for activity change. Negative for chills, fever and unexpected weight change. Gastrointestinal: Negative for bowel retention or incontinence Genitourinary: Negative for difficulty urinating. Negative for bladder retention or incontinence Musculoskeletal: Positive for arthralgias, gait problem, neck pain and neck stiffness. Negative for back pain, joint swelling and myalgias. Neurological: Positive for headaches. Negative for weakness and numbness. Psychiatric/Behavioral: Positive for sleep disturbance. Negative for dysphoric mood and suicidal ideas. The patient is nervous/anxious. [facility] 10-02-2023 Instructions Nicole Flores LPN - 10/02/2023 9:19 AM EST PROCEDURE DISCHARGE INSTRUCTIONS 10/02/2023 Lou Oliver 1945 Physician: Jak Diaz MD Procedure: Facet Joint Branch Radiofrequency Denervation Post Procedure Instructions: If sedation not given, no driving for 3 hours after the procedure., If sedation given, no driving the day of the procedure., Rest the day of the procedure., You may resume normal activities the day after the procedure, as tolerated., Avoid movements that may aggravate pain., Apply cold compresses to injection site if needed., No hot baths, hot tubs or hot compresses for 24 hours., Increased pain the day after the procedure may occur., and Your pain should subside in the next 4-6 weeks. If you have any of the following signs or symptoms, please call our office at Fever and/or chills Swelling and/or drainage from injection site New pain that is different than your normal pain (other than soreness at the site of the procedure) Stiff neck Shortness of breath Severe increase in pain Motor dysfunctions, such as difficulty walking, bowel or bladder dysfunction and/or incontinence Headache that is severe, light sensitive or develops when changing positions (positional headache) Nausea and/or vomiting accompanied by headache that started 24-48 hours after the procedure If you have any emergent concerns, please call 911 or go to your local emergency room. Please also contact our office to let us know you will be seeking emergency care and why. documented in this encounter [facility] 09-17-2023 Note HNO ID: [id number] Author: Marley Schuster CCC-MARKETING PROJECT COORDINATOR Service: ? Author Type: Speech Language Pathologist Type: Progress Notes Filed: 09/17/2023 10:15 AM Note Text: Episode Visit Count: 2 Therapist That Will Accept/Oversee The Plan Of Care: Kevin Start of Care Date: 09/17/23 Onset Date: 10/21/22 Plan of Care Certification Date: 08/01/23 Patient Identified by Name and Date of : Alisha [facility] MODIFIED BARIUM SWALLOW PLAN OF CARE: Impression: Evidence of: -Concern for possible esophageal dysphagia (Intermittent esophageal retention while in the upright posture; possible narrowing of the pharyngoesophageal segment which does not obstruct bolus at this time) An elevated risk for aspiration: No Swallow Efficiency: Preserved RECOMMENDATION: Diet Recommendations: -Regular Consistency, -Thin Liquids IDDSI Level 0 Swallowing Precautions Recommendations: -Sit upright 90 degrees for all PO, -Feed / Eat at a slow rate, -Self-monitoring Recommended Consults: GI, Esophagram Results and Recommendations Discussed With: Patient, Family ([id number]) SUBJECTIVE: Lou Oliver is a 78 year old female seen today for a Modified Barium Swallow (MBS) Study. Dysphagia -pt is reporting that she has Parkinsons and is noticing an increased difficulty in swallowing -Pt states that it feels like there is a 'lump' high pharyngeal region -admits to increased difficulty with water / less difficulty with thicker liquid items -admits to the following: 'acid reflux', heartburn (not medicated), unexpected weight loss of 30 lbs over the course of 3 years, reports not eating well, daily nausea -denies the following: vomiting, SOB, PNA, pulmonary complications, pain with PO intake -Marylu ([id number]) accompanies patient to today's assessment Patient Goals: determine current swallowing skills Prior Functional Level: Required Assistance Assistance Required With: Transportation Assistance Available: PRN OBJECTIVE: MEASURES WITH LEVEL OF FUNCTION: Swallow Position Of Patient During Assessment: Standing Consistencies Presented: Thin Liquids IDDSI Level 0, Pureed IDDSI Level 4, Soft and Bite-Sized IDDSI Level 6, Solid -able to follow verbal directives for the completion of today's fluoroscopic assessment; -able to self-manage rate and volume of each bolus presentation Compensatory Strategies Utilized During Assessment: Double swallows Instrumental Swallow Assessment Type: Modified Barium Swallow Study Modified Barium Swallow Views: Lateral position Barium Consistencies Provided: Thin Liquids, Pureed Solids, Soft and Bite-Sized Solids, Regular Solids Oral Phase: Lip Closure: No labial escape/anterior loss of bolus Tongue Control During Bolus Hold: Cohesive bolus between tongue to palatal seal Bolus Preparation/Mastication: Slow prolonged mastication with complete re-collection necessary Bolus Transport/Lingual Motion: Delayed initiation of tongue motion for A-P movement of the bolus Oral Residue: Trace residue lining oral structures Initiation Of Pharyngeal Swallow: Bolus head at posterior angle of ramus Pharyngeal Phase: Soft Palate Elevation: No bolus between soft palate/pharyngeal wall Laryngeal Elevation: Complete superior movement of thyroid cartilage with contact of arytenoids to epiglottic petiole Anterior Hyoid Excursion: Complete anterior movement Epiglottic Movement: Complete inversion Laryngeal Vestibular Closure/Height of the Swallow: Complete - no air/contrast in laryngeal vestibule Pharyngeal Stripping Wave: Complete Pharyngoesophageal Segment Opening: Partial distension/partial duration with partial obstruction of flow of bolus Tongue Base Retraction: Trace column of contrast or air between tongue base and pharyngeal wall Pharyngeal Residue: Trace residue within or on the pharyngeal structures Esophageal Clearance In An Upright Position: Esophageal retention Penetration-Aspiration Scale Level 1-Material does not enter airway Education: Education Learning Preferences: Explanation Barriers: None Learning/Educational Needs: MBSs results Education Provided: Yes, see treatment interventions for education provided Education Provided To: Patient, Caregiver ([id number]) Education Mode/Type: Explanation/Discussion, Video Response to Education/Teach Back: States/Identifies TREATMENT: Performed Modified Barium Swallowing Study (86550). - Provided education related to a typical swallowing mechanism in a compare and contrast manner compared to this patient's current skill set. -utilized fluoroscopic images to support education provided this date -Education regarding findings from today's Modified Barium Swallowing study (fluoroscopic study) and suggested plans for treatment were provided to the patient and her family member through verbal / written instruction, images and/or (more content not included)... [facility] 09-17-2023 History of Present illness Narrative Episode Visit Count: 2 Therapist That Will Accept/Oversee The Plan Of Care: Kevin Start of Care Date: 09/17/23 Onset Date: 10/21/22 Plan of Care Certification Date: 08/01/23 Patient Identified by Name and Date of : Yes [facility] MODIFIED BARIUM SWALLOW PLAN OF CARE: Impression: Evidence of: -Concern for possible esophageal dysphagia (Intermittent esophageal retention while in the upright posture; possible narrowing of the pharyngoesophageal segment which does not obstruct bolus at this time) An elevated risk for aspiration: No Swallow Efficiency: Preserved RECOMMENDATION: Diet Recommendations: -Regular Consistency, -Thin Liquids IDDSI Level 0 Swallowing Precautions Recommendations: -Sit upright 90 degrees for all PO, -Feed / Eat at a slow rate, -Self-monitoring Recommended Consults: GI, Esophagram Results and Recommendations Discussed With: Patient, Family ([id number]) SUBJECTIVE: Lou Oliver is a 78 year old female seen today for a Modified Barium Swallow (MBS) Study. Dysphagia -pt is reporting that she has Parkinsons and is noticing an increased difficulty in swallowing -Pt states that it feels like there is a 'lump' high pharyngeal region -admits to increased difficulty with water / less difficulty with thicker liquid items -admits to the following: 'acid reflux', heartburn (not medicated), unexpected weight loss of 30 lbs over the course of 3 years, reports not eating well, daily nausea -denies the following: vomiting, SOB, PNA, pulmonary complications, pain with PO intake -Marylu ([id number]) accompanies patient to today's assessment Patient Goals: determine current swallowing skills Prior Functional Level: Required Assistance Assistance Required With: Transportation Assistance Available: PRN OBJECTIVE: MEASURES WITH LEVEL OF FUNCTION: Swallow Position Of Patient During Assessment: Standing Consistencies Presented: Thin Liquids IDDSI Level 0, Pureed IDDSI Level 4, Soft and Bite-Sized IDDSI Level 6, Solid -able to follow verbal directives for the completion of today's fluoroscopic assessment; -able to self-manage rate and volume of each bolus presentation Compensatory Strategies Utilized During Assessment: Double swallows Instrumental Swallow Assessment Type: Modified Barium Swallow Study Modified Barium Swallow Views: Lateral position Barium Consistencies Provided: Thin Liquids, Pureed Solids, Soft and Bite-Sized Solids, Regular Solids Oral Phase: Lip Closure: No labial escape/anterior loss of bolus Tongue Control During Bolus Hold: Cohesive bolus between tongue to palatal seal Bolus Preparation/Mastication: Slow prolonged mastication with complete re-collection necessary Bolus Transport/Lingual Motion: Delayed initiation of tongue motion for A-P movement of the bolus Oral Residue: Trace residue lining oral structures Initiation Of Pharyngeal Swallow: Bolus head at posterior angle of ramus Pharyngeal Phase: Soft Palate Elevation: No bolus between soft palate/pharyngeal wall Laryngeal Elevation: Complete superior movement of thyroid cartilage with contact of arytenoids to epiglottic petiole Anterior Hyoid Excursion: Complete anterior movement Epiglottic Movement: Complete inversion Laryngeal Vestibular Closure/Height of the Swallow: Complete - no air/contrast in laryngeal vestibule Pharyngeal Stripping Wave: Complete Pharyngoesophageal Segment Opening: Partial distension/partial duration with partial obstruction of flow of bolus Tongue Base Retraction: Trace column of contrast or air between tongue base and pharyngeal wall Pharyngeal Residue: Trace residue within or on the pharyngeal structures Esophageal Clearance In An Upright Position: Esophageal retention Penetration-Aspiration Scale Level 1-Material does not enter airway Education: Education Learning Preferences: Explanation Barriers: None Learning/Educational Needs: MBSs results Education Provided: Yes, see treatment interventions for education provided Education Provided To: Patient, Caregiver ([id number]) Education Mode/Type: Explanation/Discussion, Video Response to Education/Teach Back: States/Identifies TREATMENT: Performed Modified Barium Swallowing Study (70295). - Provided education related to a typical swallowing mechanism in a compare and contrast manner compared to this patient's current skill set. -utilized fluoroscopic images to support education provided this date -Education regarding findings from today's Modified Barium Swallowing study (fluoroscopic study) and suggested plans for treatment were provided to the patient and her family member through verbal / written instruction, images and/or demonstration. Patient and her family member appeared to be able to demonstrate understanding of education provided this date. Billing: Modified Barium Swallow (04585) Total time: 44 minutes Session Start Time : 929 Session Stop Time : 1013 Marley Alejandre CCC-MARKETING PROJECT COORDINATOR documented in this encounter [facility] 09-17-2023 History of Present illness Narrative Radiology Service Progress Note PATIENT NAME: Lou Oliver DATE OF SERVICE: September 17, 2023 TIME: 9:57 AM PATIENT IDENTITY VERIFICATION COMPLETED USING TWO (2) IDENTIFIERS: Name and Date of confirmed by patient verbally. FALL SCREENING: Has the patient had 2 falls in the last year or 1 fall with injury or currently using an Ambulatory Assistive Device (Walker, Cane, Wheelchair, Crutches, etc.)? No PATIENT GENDER DATA: Female. status: : No status: NO. PATIENT RELEVANT IMPLANT DATA REVIEWED: Not Applicable RADIOLOGY DEPARTMENT: General X-ray: Exam(s) Completed: GI/ Procedure(s): Modified barium swallow with barium contrast PERIPHERAL IV DATA: Not applicable SIGNED BY: OBIE Rich September 17, 2023 9:57 AM documented in this encounter [facility] 09-17-2023 Note HNO ID: [id number] Author: Candis Gordon CT Service: Radiology Author Type: Technologist Type: Progress Notes Filed: 09/17/2023 9:58 AM Note Text: Radiology Service Progress Note PATIENT NAME: Lou Oliver DATE OF SERVICE: September 17, 2023 TIME: 9:57 AM PATIENT IDENTITY VERIFICATION COMPLETED USING TWO (2) IDENTIFIERS: Name and Date of confirmed by patient verbally. FALL SCREENING: Has the patient had 2 falls in the last year or 1 fall with injury or currently using an Ambulatory Assistive Device (Walker, Cane, Wheelchair, Crutches, etc.)? No PATIENT GENDER DATA: Female. status: : No status: NO. PATIENT RELEVANT IMPLANT DATA REVIEWED: Not Applicable RADIOLOGY DEPARTMENT: General X-ray: Exam(s) Completed: GI/ Procedure(s): Modified barium swallow with barium contrast PERIPHERAL IV DATA: Not applicable SIGNED BY: OBIE Rich September 17, 2023 9:57 AM [facility] 08-28-2023 Note HNO ID: [id number] Author: Estelle Dodge APRN.BUCKET PUSHER Service: ? Author Type: Nurse Practitioner Type: Progress Notes Filed: 08/28/2023 1:42 PM Note Text: VIRTUAL VISIT PROGRESS NOTE This is a virtual visit using [employer] Video Visit. It required patient-provider interaction for the medical decision making as documented below. I have communicated my name and active licensure. The patient's identity and physical location were verified at the time of this visit. Either the patient or their legal outside medical sales representative has been informed of the risks and benefits of -- and alternatives to -- treatment through a remote evaluation and consents to proceed with the evaluation remotely. Lou Oliver is a 78 year old female seen for neck pain, pain score 2/10 She had a second cervical medial branch block on 08/26/[address] Daiz that is helped the pain here by 90% for 6-10 hours. During this time she was able to walk, move her head and even go to the sore and carry groceries. She has not sustained relief. She is wondering about the RFA. CMS Checklist, Response to Fluoroscopically-guided, Diagnostic (non-steroid) Facet Joint Blockade (aka ?Medial Branch Block?): Block: 2 of 2 Date: 08/26/2023 Pain response post procedure: 0-1/10 Pain response pre procedure: 3/10 % overall improvement: 80-90% Duration of improvement: 4-6 hours (Agent utilized: Bupivacaine 0.75%) Functional Metric Post-Injection (Oswestry Questionnaire at 2 hours post-injection): 14 Positive Diagnostic Response? yes Per CMS criteria, the patient has had two positive responses to diagnostic (non-steroid) medial branch blocks under fluoroscopic guidanceand is appropriate for Radiofrequency Ablation (RFA), aka ?Facet Joint Denervation? of the involved facet joints under fluoroscopic guidance. Pain Intensity 1 - The pain is very mild at the moment Personal Care (Washing/Dressing) 1 - I can look after myself normally but it causes extra pain Lifting 1 - I can lift heavy weights but it gives extra pain Walking 2 - Pain prevents me from walking more than 1/2 mile Sitting 2 - Pain prevents me from sitting more than 1 hour Standing 2 - Pain prevents me from standing more than 1 hour Sleeping 0 - Pain does not prevent me from sleeping well Sex Life 0 - My sex life is normal and causes no pain (NA) Social Life 2 - Pain has no significant effect on my social life apart from limiting my more energetic interests (e.g. sports, etc.) Traveling 3 - Pain restricts me to journeys of less than 1 hour Total Score 14 Interpretation 0% - 20% - minimal disability Ht 162.6 cm (5' 4 ) Wt 61.7 kg (136 lb) BMI 23.34 kg/m? DATE PROCEDURE IMPROVEMENT 08/26/2023 Cervical MBB 90% . HISTORY REVIEWED (electronic chart updated): PAST MEDICAL HISTORY Diagnosis Date Diverticulosis of colon (without mention of hemorrhage) Essential hypertension, benign 04/04/2007 Mental disorder Migraine without aura 04/04/2007 Parkinson disease Unspecified hypothyroidism 04/04/2007 PAST SURGICAL HISTORY Procedure Laterality Date DELIVERY ONLY , low cervical x2 COLONOSCOPY FLX DX W/COLLJ SPEC WHEN PFRMD 1994 Colonoscopy COLONOSCOPY FLX DX W/COLLJ SPEC WHEN PFRMD 04/07/2012 Colonoscopy COLONOSCOPY FLX DX W/COLLJ SPEC WHEN PFRMD 06/17/2019 Colonoscopy DILATION AND CURETTAGE DXAND/THER NONOBSTETRIC 09/1982 Dilation AND curettage PAST SURGICAL HISTORY OF 02/1996 EMB TONSILLECTOMY AND ADENOIDECTOMY T/A (under age 13 years) FAMILY HISTORY Problem Relation Age of Onset Hypertension Mother Arthritis Mother Heart disease Mother Diabetes Father adult onset Emphysema Father Cancer Father lung Asthma Daughter Allergic Rhinitis Daughter Diabetes Paternal Grandmother Ischemic Heart Disease Maternal Grandfather Psychiatry Maternal Grandmother Social History Tobacco Use Smoking status: Never Smokeless tobacco: Never Tobacco comments: Father smoked in childhood home. 2 spouses were smokers. Vaping Use Vaping Use: Never used Substance Use Topics Alcohol use: No Drug use: No Current Outpatient Medications Medication Sig ondansetron orally disintegrating (ZOFRAN ODT) 4 mg disintegrating tablet Take 1 tablet by mouth every 6 hours as needed for nausea/vomiting. fludrocortisone (FLORINEF) 0.1 mg tablet Take 1 tablet by mouth once daily. LORazepam (ATIVAN) 0.5 mg Take by mouth. pravastatin (PRAVACHOL) 20 mg tablet TAKE 1 TABLET BY MOUTH EVERYDAY AT BEDTIME levothyroxine (SYNTHROID) 75 mcg tablet Take 1 tablet by mouth once daily. Take on empty stomach. For Thyroid sertraline (ZOLOFT) 100 mg tablet Take 1 tablet by mouth once daily. carbidopa-levodopa CR (SINEMET CR) 50-200 mg per tablet TAKE 1 TABLET BY MOUTH in Morning and before bedtime as instructed. gabapentin (NEURONTIN) 100 mg capsule Take 1 capsule by mouth three times daily for 180 days. Cholecalci (more content not included)... [facility] 08-28-2023 History of Present illness Narrative VIRTUAL VISIT PROGRESS NOTE This is a virtual visit using MyChart Zoom Video Visit. It required patient-provider interaction for the medical decision making as documented below. I have communicated my name and active licensure. The patient's identity and physical location were verified at the time of this visit. Either the patient or their legal outside medical sales representative has been informed of the risks and benefits of -- and alternatives to -- treatment through a remote evaluation and consents to proceed with the evaluation remotely. Lou Oliver is a 78 year old female seen for neck pain, pain score 2/10 She had a second cervical medial branch block on 08/26/[address] Diaz that is helped the pain here by 90% for 6-10 hours. During this time she was able to walk, move her head and even go to the sore and carry groceries. She has not sustained relief. She is wondering about the RFA. CMS Checklist, Response to Fluoroscopically-guided, Diagnostic (non-steroid) Facet Joint Blockade (aka Medial Branch Block ): Block: 2 of 2 Date: 08/26/2023 Pain response post procedure: 0-1/10 Pain response pre procedure: 3/10 % overall improvement: 80-90% Duration of improvement: 4-6 hours (Agent utilized: Bupivacaine 0.75%) Functional Metric Post-Injection (Oswestry Questionnaire at 2 hours post-injection): 14 Positive Diagnostic Response? yes Per CMS criteria, the patient has had two positive responses to diagnostic (non-steroid) medial branch blocks under fluoroscopic guidanceand is appropriate for Radiofrequency Ablation (RFA), aka Facet Joint Denervation of the involved facet joints under fluoroscopic guidance. Pain Intensity 1 - The pain is very mild at the moment Personal Care (Washing/Dressing) 1 - I can look after myself normally but it causes extra pain Lifting 1 - I can lift heavy weights but it gives extra pain Walking 2 - Pain prevents me from walking more than 1/2 mile Sitting 2 - Pain prevents me from sitting more than 1 hour Standing 2 - Pain prevents me from standing more than 1 hour Sleeping 0 - Pain does not prevent me from sleeping well Sex Life 0 - My sex life is normal and causes no pain (NA) Social Life 2 - Pain has no significant effect on my social life apart from limiting my more energetic interests (e.g. sports, etc.) Traveling 3 - Pain restricts me to journeys of less than 1 hour Total Score 14 Interpretation 0% - 20% - minimal disability Ht 162.6 cm (5' 4 ) Wt 61.7 kg (136 lb) BMI 23.34 kg/m DATE PROCEDURE IMPROVEMENT 08/26/2023 Cervical MBB 90% . HISTORY REVIEWED (electronic chart updated): PAST MEDICAL HISTORY Diagnosis Date Diverticulosis of colon (without mention of hemorrhage) Essential hypertension, benign 04/04/2007 Mental disorder Migraine without aura 04/04/2007 Parkinson disease Unspecified hypothyroidism 04/04/2007 PAST SURGICAL HISTORY Procedure Laterality Date DELIVERY ONLY , low cervical x2 COLONOSCOPY FLX DX W/COLLJ SPEC WHEN PFRMD 1994 Colonoscopy COLONOSCOPY FLX DX W/COLLJ SPEC WHEN PFRMD 04/07/2012 Colonoscopy COLONOSCOPY FLX DX W/COLLJ SPEC WHEN PFRMD 06/17/2019 Colonoscopy DILATION & CURETTAGE DX&/THER NONOBSTETRIC 09/1982 Dilation & curettage PAST SURGICAL HISTORY OF 02/1996 EMB TONSILLECTOMY & ADENOIDECTOMY <AGE 13 T/A (under age 13 years) FAMILY HISTORY Problem Relation Age of Onset Hypertension Mother Arthritis Mother Heart disease Mother Diabetes Father adult onset Emphysema Father Cancer Father lung Asthma Daughter Allergic Rhinitis Daughter Diabetes Paternal Grandmother Ischemic Heart Disease Maternal Grandfather Psychiatry Maternal Grandmother Social History Tobacco Use Smoking status: Never Smokeless tobacco: Never Tobacco comments: Father smoked in childhood home. 2 spouses were smokers. Vaping Use Vaping Use: Never used Substance Use Topics Alcohol use: No Drug use: No Current Outpatient Medications Medication Sig ondansetron orally disintegrating (ZOFRAN ODT) 4 mg disintegrating tablet Take 1 tablet by mouth every 6 hours as needed for nausea/vomiting. fludrocortisone (FLORINEF) 0.1 mg tablet Take 1 tablet by mouth once daily. LORazepam (ATIVAN) 0.5 mg Take by mouth. pravastatin (PRAVACHOL) 20 mg tablet TAKE 1 TABLET BY MOUTH EVERYDAY AT BEDTIME levothyroxine (SYNTHROID) 75 mcg tablet Take 1 tablet by mouth once daily. Take on empty stomach. For Thyroid sertraline (ZOLOFT) 100 mg tablet Take 1 tablet by mouth once daily. carbidopa-levodopa CR (SINEMET CR) 50-200 mg per tablet TAKE 1 TABLET BY MOUTH in Morning and before bedtime as instructed. gabapentin (NEURONTIN) 100 mg capsule Take 1 capsule by mouth three times daily for 180 days. Cholecalciferol, Vitamin D3, 50 mcg (2,000 unit) cap Take 2,000 Units by mouth once daily. diclofenac sodium (VOLTAREN) 1 % topical gel APPLY 2 GRAMS TO AFFECTED AREA 4 TIMES A DAY docusate sodium (COLACE ORAL) Take by mouth as needed. THERAPEUTIC MULTIVITAMIN TAB Take by mouth. No current facility-administered medications for this visit. ALLERGIES Allergen Reactions Sulfa (Sulfonamide * Hives REVIEW OF SYSTEMS: GENERAL: no fever HEENT: no nasal congestion or rhinorrhea NECK: decreased ROM of neck with spasm, tenderness, and pain RESPIRATORY: no cough, no wheezing or shortness of breath CARDIOVASCULAR: no chest pain, no palpitations GI: no abdominal pain : urination is normal MUSCULOSKELETAL: as above, no other joint pain/muscle ache SKIN: no rash PSYCH: sleep is normal HEMATOLOGY/LYMPHOLOGY: negative for prolonged bleeding ENDOCRINE: denies cold/heat intolerance NEURO: no numbness or paresthesias and no weakness of the extremities PHYSICAL EXAMINATION: VIDEO EXAM: (if completed, performed via video enabled technology) GENERAL: alert and appropriate, in no distress, well-hydrated, well nourished, and happy, smiling, interactive SKIN: no rash noted HEAD: normocephalic, no abnormality or lesion noted EYES: no injection and visual acuity is grossly normal EARS: hearing grossly normal NOSE: external nose normal without rhinorrhea NECK: stiffness seen RESPIRATORY: breathing non-labored CHEST: equal chest rise with normal respiratory effort BACK: back normal in appearance, spine with FROM EXTREMITIES: no weakness seen NEUROLOGIC: no obvious deficit ASSESSMENT: (M47.812) Cervical spondylosis without myelopathy (primary encounter diagnosis) PLAN: Risks, benefits, and alternatives to the procedure were discussed with the patient. The patient was educated about special protocols to mitigate any exposure or infection risk in our facility and patient wishes to proceed with the procedure. H&P done 08/28/2023 We will plan on the bilateral C4/5 5/6 RFA for the long lasting mechanical neck pain. She has had 2 + MBB Patient Instructions Ice and heat as tolerated Activity as tolerated I spent a total of 15 minutes on the date of the service which included preparing to see the patient, [id number] patient care, completing clinical documentation, and ordering medications, tests, or procedures Estelle Dodge, MMI TEACHER.BUCKET PUSHER I have communicated my name and active licensure. The patient's identity and physical location were verified at the time of this visit. Either the patient or their legal outside medical sales representative has been informed of the risks and benefits of -- and alternatives to -- treatment through a remote evaluation and consents to proceed with the evaluation remotely. documented in this encounter [facility] 08-28-2023 Instructions Estelle Dodge APRN.CNP - 08/28/2023 1:31 PM EST Ice and heat as tolerated Activity as tolerated documented in this encounter [facility] 08-26-2023 Nurse Note Order has been placed in the patient's chart with the following parameters for discharge from the physician: Patient is alert and oriented Vitals: Diastolic/Systolic +/- 20mmHg Respirations: 12-18 Pulse: 60-100 SpO2 is greater than or equal to 90% Patient has no nausea or vomiting Patient has no dizziness Pain level is +/- 2 from initial evaluation Dressing, dry and intact with no evidence of bleeding Criteria has been met, patient is okay to be discharged per the physician. Physician has gone in and evaluated the patient. Dressing dry and intact. No drainage noted. The patient denies nausea, numbness, tingling, weakness, shortness of breath, dizziness, or headache. Pain level 3/10. Vital signs within normal limits. Patient denied needing walked out by clinical staff and denied needing a wheelchair. Patient given discharge instructions and sent to transportation via ambulatory method. Patient left in good condition. Procedure to be performed: C4/5 -C5/6 Bilateral Medial Branch Block without steroid Patient was wheeled on stretcher from pre op bay to procedure room and assisted onto the procedure tablePatient s procedure was performed in an [facility] Procedure room. Pause completed at each level by provider to verify correct level and laterality placement Pressure was applied to patient s injection site(s) and bleeding was minimal. Patient had no complaint of shortness of breath, dizziness, headache, numbness, tingling, weakness or complications from procedure. Patient was assisted from the procedure table onto the stretcher and wheeled into a post op bay. Patient was advised a clinician will be to obtain another set of vitals. Time Out: 1354 Confirmed patient name, date of , procedure site, laterality, and allergies Procedure Start: 1357 Procedure End: 1408 Addiction Therapist's Name: DEBRA Are you on a blood thinner: NO If yes, is a hold required: NO Last dose of blood thinner: NO INR Result today: NO Do you require a Lovenox bridge: O Are you a diabetic:NO Are you/or could you be : NO Are you taking Xanax for the procedure: NO Are you currently on a steroid? NO Are you currently on an antibiotic: NO Have you had a COVID-19 vaccine in the last 14 days Or are you scheduled to receive one? NO documented in this encounter [facility] 08-26-2023 Instructions Jose Ag LPN - 08/26/2023 1:46 PM EST PROCEDURE DISCHARGE INSTRUCTIONS 08/26/2023 Lou Oliver 1945 Physician: Jak Diaz MD Procedure: Facet Joint Injection/Medial Branch Block Post Procedure Instructions: If sedation not given, no driving for 3 hours after the procedure., Perform activities that typically make you have pain and monitor your pain level during these activities for the next 3-4 hours., Avoid movements that may aggravate pain., Apply cold compresses to injection site if needed., If medically acceptable, take over the counter anti-inflammatories such as ibuprofen or Aleve if needed for post procedure discomfort., No hot baths, hot tubs or hot compresses for 24 hours., and Increased pain the day after the procedure may occur. If you have any of the following signs or symptoms, please call our office at Fever and/or chills Swelling and/or drainage from injection site New pain that is different than your normal pain (other than soreness at the site of the procedure) Stiff neck Shortness of breath Severe increase in pain Motor dysfunctions, such as difficulty walking, bowel or bladder dysfunction and/or incontinence Headache that is severe, light sensitive or develops when changing positions (positional headache) Nausea and/or vomiting accompanied by headache that started 24-48 hours after the procedure If you have any emergent concerns, please call 911 or go to your local emergency room. Please also contact our office to let us know you will be seeking emergency care and why. documented in this encounter [facility] 08-26-2023 Note HNO ID: [id number] Author: Nicole Flores LPN Service: ? Author Type: LICENSED NURSE Type: Progress Notes Filed: 08/26/2023 2:28 PM Note Text: Review of Systems Constitutional: Positive for activity change. Negative for chills, fever and unexpected weight change. Genitourinary: Negative for difficulty urinating. Musculoskeletal: Positive for gait problem, myalgias, neck pain and neck stiffness. Negative for arthralgias, back pain and joint swelling. Neurological: Positive for weakness and headaches. Negative for numbness. Psychiatric/Behavioral: Positive for dysphoric mood. Negative for sleep disturbance and suicidal ideas. The patient is nervous/anxious. [facility] 08-26-2023 History of Present illness Narrative Review of Systems Constitutional: Positive for activity change. Negative for chills, fever and unexpected weight change. Genitourinary: Negative for difficulty urinating. Musculoskeletal: Positive for gait problem, myalgias, neck pain and neck stiffness. Negative for arthralgias, back pain and joint swelling. Neurological: Positive for weakness and headaches. Negative for numbness. Psychiatric/Behavioral: Positive for dysphoric mood. Negative for sleep disturbance and suicidal ideas. The patient is nervous/anxious. [facility] Date: 08/26/2023 Patient name: Lou Oliver Physician performing procedure: Jak Diaz M.D., M.B.A. Diagnosis: (M47.812) Cervical spondylosis without myelopathy (primary encounter diagnosis) Procedure: Medial Branch Block (Diagnostic only, NO STEROIDS) under fluoroscopic guidance BILATERAL SIDES at C4-5 and C5-6 Injectate: A total of 3 ml volume was injected The injectate consisted of: 3 ml of 0.5% Bupivacaine, . Each site received equal volumes of this injectate. Comments: None Improvement after today's procedure: as per nursing report HPI: Lou Oliver is an 78 year old FEMALE who presents today, in pain, for the procedure noted above. Review of Systems: Pertinent Positives: MSK: pain in the region being treated Neuro: no weakness or numbness in the region being treated Skin: Negative (No itching) Eyes: Negative (No blurred or double vision) Respiratory: Negative (No Cough, [id number], Dyspnea on exertion, wheezing) Cardiovascular: Negative (No Chest Pain, Tightness, Pressure, Palpitations) Gastrointestinal: Negative (No Abdominal pain, Nausea, Vomiting, Constipation, Diarrhea) Genitourinary: Negative (No dysuria) Hematologic: Negative (No bleeding, bruising) OB: is Denied or Not Applicable Endocrine: Negative (No hot/cold intolerance) Psychiatric: Negative (No depression, anxiety or suicidal ideation) PAST MEDICAL HISTORY Diagnosis Date Diverticulosis of colon (without mention of hemorrhage) Essential hypertension, benign 04/04/2007 Mental disorder Migraine without aura 04/04/2007 Parkinson disease Unspecified hypothyroidism 04/04/2007 PAST SURGICAL HISTORY Procedure Laterality Date DELIVERY ONLY , low cervical x2 COLONOSCOPY FLX DX W/COLLJ SPEC WHEN PFRMD 1994 Colonoscopy COLONOSCOPY FLX DX W/COLLJ SPEC WHEN PFRMD 04/07/2012 Colonoscopy COLONOSCOPY FLX DX W/COLLJ SPEC WHEN PFRMD 06/17/2019 Colonoscopy DILATION & CURETTAGE DX&/THER NONOBSTETRIC 09/1982 Dilation & curettage PAST SURGICAL HISTORY OF 02/1996 EMB TONSILLECTOMY & ADENOIDECTOMY <AGE 13 T/A (under age 13 years) FAMILY HISTORY Problem Relation Age of Onset Hypertension Mother Arthritis Mother Heart disease Mother Diabetes Father adult onset Emphysema Father Cancer Father lung Asthma Daughter Allergic Rhinitis Daughter Diabetes Paternal Grandmother Ischemic Heart Disease Maternal Grandfather Psychiatry Maternal Grandmother Social History Tobacco Use Smoking status: Never Smokeless tobacco: Never Tobacco comments: Father smoked in childhood home. 2 spouses were smokers. Vaping Use Vaping Use: Never used Substance Use Topics Alcohol use: No Drug use: No Current Outpatient Medications on File Prior to Visit Medication Sig ondansetron orally disintegrating (ZOFRAN ODT) 4 mg disintegrating tablet Take 1 tablet by mouth every 6 hours as needed for nausea/vomiting. fludrocortisone (FLORINEF) 0.1 mg tablet Take 1 tablet by mouth once daily. LORazepam (ATIVAN) 0.5 mg Take by mouth. pravastatin (PRAVACHOL) 20 mg tablet TAKE 1 TABLET BY MOUTH EVERYDAY AT BEDTIME levothyroxine (SYNTHROID) 75 mcg tablet Take 1 tablet by mouth once daily. Take on empty stomach. For Thyroid sertraline (ZOLOFT) 100 mg tablet Take 1 tablet by mouth once daily. carbidopa-levodopa CR (SINEMET CR) 50-200 mg per tablet TAKE 1 TABLET BY MOUTH in Morning and before bedtime as instructed. gabapentin (NEURONTIN) 100 mg capsule Take 1 capsule by mouth three times daily for 180 days. Cholecalciferol, Vitamin D3, 50 mcg (2,000 unit) cap Take 2,000 Units by mouth once daily. diclofenac sodium (VOLTAREN) 1 % topical gel APPLY 2 GRAMS TO AFFECTED AREA 4 TIMES A DAY docusate sodium (COLACE ORAL) Take by mouth as needed. THERAPEUTIC MULTIVITAMIN TAB Take by mouth. No current facility-administered medications on file prior to visit. Objective Exam: Vitals: As per nursing documentation Constitutional: Normal Appearance, Oriented to Time, Place and Person Head: No lacerations, no external signs of trauma Eyes: Conjunctiva clear. No discharge from the eyes Cardiovascular: Appears well-perfused Pulmonary: Non-labored respirations Abdominal: Non-distended Skin: No visible rashes or ecchymosis Psychiatric: Mood appropriate for given condition Neurological: Gross movements are limited by pain, but otherwise unremarkable Data Reviewed: Nursing note and vitals reviewed. Additional imaging reviewed as appropriate Assessment and Plan: As noted above [facility] protocol documentation / Pre-Procedure Checklist: Consent: Obtained in writing prior to procedure I had a nice discussion with the patient today about their current pain and the pathology that could be causing it We discussed different treatment options, including risks, benefits and alternatives. We agreed to proceed as previously discussed, or the plan was modified in accordance with the comments noted above Unless stated otherwise in the procedure note, the risks include but are not limited to infection, allergic reaction, increased pain, lack of therapeutic benefit, steroid reaction, nerve damage, paralysis, stroke, epidural hematoma, syncope, headache, respiratory or cardiac arrest, pneumothorax, and scar formation Once the plan was agreed upon, the patient gave written consent to proceed and was transported into the procedure room Surgical/Procedure pause or Time Out : Time Out was led by the physician in the procedure room, with the patient and all staff present and participating The following information was verified during the Time Out process: Patient name, patient date of , procedure site (marked), laterality, anticoagulants and allergies Procedure: The patient was prepped and draped in a sterile fashion in the prone position after informed consent was signed and all patient questions were answered including the risks, benefits, alternative treatment options, and prognosis. The risks are as mentioned above. To block the facet joint nerves from C4 through C6, the lateral masses of these respective levels were localized under fluoroscopic visualization. A spinal needle was inserted down to the waist at the above-mentioned cervical levels. Using biplanar imaging, the needle was then walked off until it rested just lateral to the trough of the lateral mass of the medial branch nerve lies, which innervates the cervical facet joint. After contact with periosteum and negative aspirate for blood and CSF, correct placement of each needle without intravascular or epidural spread was confirmed by injecting 0.2cc of Omnipaque 300. A spot radiograph was obtained of this image. Next, a 0.5cc volume of the injectate noted above was then injected. Please see the nursing note for exact times (time out, procedure start, procedure end). After careful removal of the needle, there was minimal bleeding. The injection site was covered with appropriate sterile dressing. The patient was noted to have tolerated the procedure well and was discharged after an appropriate period of post-procedure observation. The patient was instructed to contact us if there were any complications. The patient was advised to follow-up with the requesting physician within one to two weeks or as per their requested follow-up plan. Post procedure visit summary with written instructions was offered to the patient. Jak Diaz MD, MBA Pain Management [facility] documented in this encounter [facility] 08-26-2023 Note HNO ID: [id number] Author: Jak Diaz MD Service: ? Author Type: Physician Type: Progress Notes Filed: 08/26/2023 2:28 PM Note Text: [facility] Date: 08/26/2023 Patient name: Lou Oliver Physician performing procedure: Jak Diaz M.D., M.B.A. Diagnosis: (M47.812) Cervical spondylosis without myelopathy (primary encounter diagnosis) Procedure: Medial Branch Block (Diagnostic only, NO STEROIDS) under fluoroscopic guidance BILATERAL SIDES at C4-5 and C5-6 Injectate: A total of 3 ml volume was injected The injectate consisted of: 3 ml of 0.5% Bupivacaine, . Each site received equal volumes of this injectate. Comments: None Improvement after today's procedure: as per nursing report HPI: Lou Oliver is an 78 year old FEMALE who presents today, in pain, for the procedure noted above. Review of Systems: Pertinent Positives: MSK: pain in the region being treated Neuro: no weakness or numbness in the region being treated Skin: Negative (No itching) Eyes: Negative (No blurred or double vision) Respiratory: Negative (No Cough, [id number], Dyspnea on exertion, wheezing) Cardiovascular: Negative (No Chest Pain, Tightness, Pressure, Palpitations) Gastrointestinal: Negative (No Abdominal pain, Nausea, Vomiting, Constipation, Diarrhea) Genitourinary: Negative (No dysuria) Hematologic: Negative (No bleeding, bruising) OB: is Denied or Not Applicable Endocrine: Negative (No hot/cold intolerance) Psychiatric: Negative (No depression, anxiety or suicidal ideation) PAST MEDICAL HISTORY Diagnosis Date Diverticulosis of colon (without mention of hemorrhage) Essential hypertension, benign 04/04/2007 Mental disorder Migraine without aura 04/04/2007 Parkinson disease Unspecified hypothyroidism 04/04/2007 PAST SURGICAL HISTORY Procedure Laterality Date DELIVERY ONLY , low cervical x2 COLONOSCOPY FLX DX W/COLLJ SPEC WHEN PFRMD 1994 Colonoscopy COLONOSCOPY FLX DX W/COLLJ SPEC WHEN PFRMD 04/07/2012 Colonoscopy COLONOSCOPY FLX DX W/COLLJ SPEC WHEN PFRMD 06/17/2019 Colonoscopy DILATION AND CURETTAGE DXAND/THER NONOBSTETRIC 09/1982 Dilation AND curettage PAST SURGICAL HISTORY OF 02/1996 EMB TONSILLECTOMY AND ADENOIDECTOMY T/A (under age 13 years) FAMILY HISTORY Problem Relation Age of Onset Hypertension Mother Arthritis Mother Heart disease Mother Diabetes Father adult onset Emphysema Father Cancer Father lung Asthma Daughter Allergic Rhinitis Daughter Diabetes Paternal Grandmother Ischemic Heart Disease Maternal Grandfather Psychiatry Maternal Grandmother Social History Tobacco Use Smoking status: Never Smokeless tobacco: Never Tobacco comments: Father smoked in childhood home. 2 spouses were smokers. Vaping Use Vaping Use: Never used Substance Use Topics Alcohol use: No Drug use: No Current Outpatient Medications on File Prior to Visit Medication Sig ondansetron orally disintegrating (ZOFRAN ODT) 4 mg disintegrating tablet Take 1 tablet by mouth every 6 hours as needed for nausea/vomiting. fludrocortisone (FLORINEF) 0.1 mg tablet Take 1 tablet by mouth once daily. LORazepam (ATIVAN) 0.5 mg Take by mouth. pravastatin (PRAVACHOL) 20 mg tablet TAKE 1 TABLET BY MOUTH EVERYDAY AT BEDTIME levothyroxine (SYNTHROID) 75 mcg tablet Take 1 tablet by mouth once daily. Take on empty stomach. For Thyroid sertraline (ZOLOFT) 100 mg tablet Take 1 tablet by mouth once daily. carbidopa-levodopa CR (SINEMET CR) 50-200 mg per tablet TAKE 1 TABLET BY MOUTH in Morning and before bedtime as instructed. gabapentin (NEURONTIN) 100 mg capsule Take 1 capsule by mouth three times daily for 180 days. Cholecalciferol, Vitamin D3, 50 mcg (2,000 unit) cap Take 2,000 Units by mouth once daily. diclofenac sodium (VOLTAREN) 1 % topical gel APPLY 2 GRAMS TO AFFECTED AREA 4 TIMES A DAY docusate sodium (COLACE ORAL) Take by mouth as needed. THERAPEUTIC MULTIVITAMIN TAB Take by mouth. No current facility-administered medications on file prior to visit. Objective Exam: Vitals: As per nursing documentation Constitutional: Normal Appearance, Oriented to Time, Place and Person Head: No lacerations, no external signs of trauma Eyes: Conjunctiva clear. No discharge from the eyes Cardiovascular: Appears well-perfused Pulmonary: Non-labored respirations Abdominal: Non-distended Skin: No visible rashes or ecchymosis Psychiatric: Mood appropriate for given condition Neurological: Gross movements are limited by pain, but otherwise unremarkable Data Reviewed: Nursing note and vitals reviewed. Additional imaging reviewed as appropriate Assessment and Plan: As noted above [place] protocol documentation / Pre-Procedure Checklist: Consent: Obtained in writing prior to procedure I had a nice discuss (more content not included)... [facility] 08-13-2023 Instructions Giuliana Ernst APRN.CNP - 08/13/2023 11:24 AM EDT Ice and heat as tolerated Activity as tolerated documented in this encounter [facility] 08-13-2023 History of Present illness Narrative VIRTUAL VISIT PROGRESS NOTE This is a virtual visit using [employer] Video Visit. It required patient-provider interaction for the medical decision making as documented below. I have communicated my name and active licensure. The patient's identity and physical location were verified at the time of this visit. Either the patient or their legal outside medical sales representative has been informed of the risks and benefits of -- and alternatives to -- treatment through a remote evaluation and consents to proceed with the evaluation remotely. Lou Oliver is a 78 year old female seen for 08/07/23 #1.Medial Branch Block (Diagnostic only, NO STEROIDS) under fluoroscopic guidance BILATERAL at C4-5 and C5-6 Pain level today: 11/30 Ht 162.6 cm (5' 4 ) Wt 61.7 kg (136 lb) BMI 23.34 kg/m Patient reports 80 % relief from procedure with pain score of 0/10 for 1 day length of time. Patient reports improved quality of life and increase in ability to perform ADL's. She was able to stand, walk and sit for longer periods of time. Pain Intensity 0 - I have no pain at the moment Personal Care (Washing/Dressing) 0 - I can look after myself normally without causing extra pain Lifting 2 - Pain prevents me from lifting heavy weights off the floor, but I can manage if conveniently positioned (e.g. on a table) Walking 4 - Pain prevents me from walking more than 100 yards Sitting 3 - Pain prevents me from sitting more than 1/2 hour Standing 4 - Pain prevents me from standing more than 10 minutes Sleeping 0 - Pain does not prevent me from sleeping well Sex Life 0 - My sex life is normal and causes no pain Social Life 3 - Pain has restricted my social life and I do not go out as often Traveling 5 - Pain prevents me from traveling except to receive treatment Total Score 21 Interpretation 21% - 40% - moderate disability HISTORY REVIEWED (electronic chart updated): PAST MEDICAL HISTORY Diagnosis Date Diverticulosis of colon (without mention of hemorrhage) Essential hypertension, benign 04/04/2007 Mental disorder Migraine without aura 04/04/2007 Parkinson disease Unspecified hypothyroidism 04/04/2007 PAST SURGICAL HISTORY Procedure Laterality Date DELIVERY ONLY , low cervical x2 COLONOSCOPY FLX DX W/COLLJ SPEC WHEN PFRMD 1994 Colonoscopy COLONOSCOPY FLX DX W/COLLJ SPEC WHEN PFRMD 04/07/2012 Colonoscopy COLONOSCOPY FLX DX W/COLLJ SPEC WHEN PFRMD 06/17/2019 Colonoscopy DILATION & CURETTAGE DX&/THER NONOBSTETRIC 09/1982 Dilation & curettage PAST SURGICAL HISTORY OF 02/1996 EMB TONSILLECTOMY & ADENOIDECTOMY <AGE 12 T/A (under age 13 years) FAMILY HISTORY Problem Relation Age of Onset Hypertension Mother Arthritis Mother Heart disease Mother Diabetes Father adult onset Emphysema Father Cancer Father lung Asthma Daughter Allergic Rhinitis Daughter Diabetes Paternal Grandmother Ischemic Heart Disease Maternal Grandfather Psychiatry Maternal Grandmother Social History Tobacco Use Smoking status: Never Smokeless tobacco: Never Tobacco comments: Father smoked in childhood home. 2 spouses were smokers. Vaping Use Vaping Use: Never used Substance Use Topics Alcohol use: No Drug use: No Current Outpatient Medications Medication Sig fludrocortisone (FLORINEF) 0.1 mg tablet Take 1 tablet by mouth once daily. LORazepam (ATIVAN) 0.5 mg Take by mouth. pravastatin (PRAVACHOL) 20 mg tablet TAKE 1 TABLET BY MOUTH EVERYDAY AT BEDTIME levothyroxine (SYNTHROID) 75 mcg tablet Take 1 tablet by mouth once daily. Take on empty stomach. For Thyroid sertraline (ZOLOFT) 100 mg tablet Take 1 tablet by mouth once daily. carbidopa-levodopa CR (SINEMET CR) 50-200 mg per tablet TAKE 1 TABLET BY MOUTH in Morning and before bedtime as instructed. gabapentin (NEURONTIN) 100 mg capsule Take 1 capsule by mouth three times daily for 180 days. Cholecalciferol, Vitamin D3, 50 mcg (2,000 unit) cap Take 2,000 Units by mouth once daily. diclofenac sodium (VOLTAREN) 1 % topical gel APPLY 2 GRAMS TO AFFECTED AREA 4 TIMES A DAY docusate sodium (COLACE ORAL) Take by mouth as needed. THERAPEUTIC MULTIVITAMIN TAB Take by mouth. ondansetron orally disintegrating (ZOFRAN ODT) 4 mg disintegrating tablet Take 1 tablet by mouth every 6 hours as needed for nausea/vomiting. No current facility-administered medications for this visit. ALLERGIES Allergen Reactions Sulfa (Sulfonamide * Hives REVIEW OF SYSTEMS: GENERAL: feeling well without fatigue, no recent change in weight HEENT: denies HOLLINGSWORTH, change in hearing or vision, no other ENT complaints NECK: denies swelling or pain in neck RESPIRATORY: no cough, no wheezing or shortness of breath CARDIOVASCULAR: no chest pain, no palpitations GI: normal appetite, tolerating PO well, BMs normal, and no abdominal pain : urination is normal MUSCULOSKELETAL: denies any painful or swollen joints, no muscle aches SKIN: no rash PSYCH: denies depressed or anxious mood, sleep is normal HEMATOLOGY/LYMPHOLOGY: negative for prolonged bleeding, no swollen lymph nodes ENDOCRINE: denies cold/heat intolerance, denies polyuria or polydipsia, no goiter NEURO: no numbness or paresthesias and no weakness of the extremities PHYSICAL EXAMINATION: VIDEO EXAM: (if completed, performed via video enabled technology) GENERAL: alert and appropriate, in no distress, well-hydrated, well nourished, and happy, smiling, interactive SKIN: no rash noted HEAD: normocephalic, no abnormality or lesion noted EYES: no injection and visual acuity is grossly normal EARS: hearing grossly normal NOSE: external nose normal without rhinorrhea BACK: back normal in appearance, spine with FROM EXTREMITIES: none NEUROLOGIC: no obvious deficit ASSESSMENT: (M47.812) Cervical spondylosis without myelopathy (primary encounter diagnosis) PLAN: Keep appointment for #2 Medial Branch Block (Diagnostic only, NO STEROIDS) under fluoroscopic guidance BILATERAL SIDES at C4-5 and C5-6 There are no Patient Instructions on file for this visit. I spent a total of 17 minutes on the date of the service which included preparing to see the patient, [id number] patient care, completing clinical documentation, obtaining and/or reviewing separately obtained history, performing a medically appropriate examination, and counseling and educating the patient/family/caregiver Patient verbalizes understanding of home going instructions and is in agreement with the discharge plan. Patient questions were answered to their satisfaction. Some elements may be copied from a previous office note and have been reviewed/updated where appropriate. All portions reflect current medical decision making from today Giuliana Ernst, ALEKSANDRA.BUCKET PUSHER MRI Spine Report MRI CERVICAL SPINE WO IVCON Exam End: 05/10/2020 8:23 AM (Final result) Narrative: * * *Final Report* * * DATE OF EXAM: May 10 2020 8:15AM LEONAlberto [id number] - MRI CERVICAL SPINE WO IVCON / PROCEDURE REASON: multiple diagnoses * * * * Physician Interpretation * * * * EXAMINATION: MRI CERVICAL SPINE WO IVCON CLINICAL HISTORY: Spinal stenosis of cervical region - Cervicalgia - Spinal stenosis, spondylolisthesis, torticollis, radiculopathy, trauma - C-spine stenosis, Neck pain, chronic, mechanical TECHNIQUE: Routine cervical spine MR protocol without gadolinium. MQ: [id number] COMPARISON: Cervical spine radiographs 04/06/2020 RESULT: Counting reference: Craniocervical junction. Anatomic Variants: None. Alignment: Straightening of the cervical lordosis with trace grade 1 degenerative spondylolisthesis at C4-5, and minimal retrolisthesis at C5-6. Moderate intervertebral disc space narrowing at C4-5. Craniocervical junction: Craniocervical junction is normal. Cord: Minimal cord abutment at C4-5 due to spondylotic changes, further detailed below. No intramedullary signal abnormality. Bone marrow signal/fracture: Patchy likely reactive marrow edema at the left C3-4 facet joint. No evidence of confluent abnormal marrow replacement or an acute fracture. Small T1/T2 hyperintense lesion suggesting small intraosseous hemangioma within the left T5 pedicle and articular facets. Cervical soft tissues: The paraspinal soft tissues are within normal limits. C2-C3: Shallow disc bulging partially effacing the ventral thecal sac without cord contact. Patent foramina. C3-C4: Small central disc protrusion partially effacing the ventral thecal sac without cord impact. Mild bilateral foraminal stenosis due to uncovertebral and facet hypertrophy. C4-C5: Mild canal stenosis due to shallow disc/osteophyte complex and dorsal ligamentous hypertrophy. No significant cord impact. Patent foramina. C5-C6: Minimal retrolisthesis and disc/osteophyte complex effacing the ventral thecal sac without cord impact. Patent foramina. C6-C7: Canal and foramina are patent. C7-T1: Canal and foramina are patent. No significant canal or foraminal stenosis in the imaged upper thoracic spine to the level of T5-6. Impression: IMPRESSION: Mild cervical spondylosis without high-grade canal or foraminal stenosis. Anatomic Variant: None. Assume 7 cervical vertebrae with counting from the craniocervical junction. Tenant Selector: DOMENIC Transcribe Date/Time: May 10 2020 8:36A Dictated by : MARIS REMY MD This examination was interpreted and the report reviewed and electronically signed by: MARIS REMY MD on May 10 2020 8:46AM EST PDMP website checked and validated. All prescriptions have been APPROPRIATELY filled. No suspicious activity was identified. 08/12/2023 by Giuliana Ernst APRN.BUCKET PUSHER documented in this encounter [facility] 08-13-2023 Note HNO ID: [id number] Author: Giuliana Ernst APRN.BUCKET PUSHER Service: ? Author Type: Nurse Practitioner Type: Progress Notes Filed: 08/13/2023 11:25 AM Note Text: VIRTUAL VISIT PROGRESS NOTE This is a virtual visit using [employer] Video Visit. It required patient-provider interaction for the medical decision making as documented below. I have communicated my name and active licensure. The patient's identity and physical location were verified at the time of this visit. Either the patient or their legal outside medical sales representative has been informed of the risks and benefits of -- and alternatives to -- treatment through a remote evaluation and consents to proceed with the evaluation remotely. Lou Oliver is a 78 year old female seen for 08/07/23 #1.Medial Branch Block (Diagnostic only, NO STEROIDS) under fluoroscopic guidance BILATERAL at C4-5 and C5-6 Pain level today: 11/30 Ht 162.6 cm (5' 4 ) Wt 61.7 kg (136 lb) BMI 23.34 kg/m? Patient reports 80 % relief from procedure with pain score of 0/10 for 1 day length of time. Patient reports improved quality of life and increase in ability to perform ADL's. She was able to stand, walk and sit for longer periods of time. Pain Intensity 0 - I have no pain at the moment Personal Care (Washing/Dressing) 0 - I can look after myself normally without causing extra pain Lifting 2 - Pain prevents me from lifting heavy weights off the floor, but I can manage if conveniently positioned (e.g. on a table) Walking 4 - Pain prevents me from walking more than 100 yards Sitting 3 - Pain prevents me from sitting more than 1/2 hour Standing 4 - Pain prevents me from standing more than 10 minutes Sleeping 0 - Pain does not prevent me from sleeping well Sex Life 0 - My sex life is normal and causes no pain Social Life 3 - Pain has restricted my social life and I do not go out as often Traveling 5 - Pain prevents me from traveling except to receive treatment Total Score 21 Interpretation 21% - 40% - moderate disability HISTORY REVIEWED (electronic chart updated): PAST MEDICAL HISTORY Diagnosis Date Diverticulosis of colon (without mention of hemorrhage) Essential hypertension, benign 04/04/2007 Mental disorder Migraine without aura 04/04/2007 Parkinson disease Unspecified hypothyroidism 04/04/2007 PAST SURGICAL HISTORY Procedure Laterality Date DELIVERY ONLY , low cervical x2 COLONOSCOPY FLX DX W/COLLJ SPEC WHEN PFRMD 1994 Colonoscopy COLONOSCOPY FLX DX W/COLLJ SPEC WHEN PFRMD 04/07/2012 Colonoscopy COLONOSCOPY FLX DX W/COLLJ SPEC WHEN PFRMD 06/17/2019 Colonoscopy DILATION AND CURETTAGE DXAND/THER NONOBSTETRIC 09/1982 Dilation AND curettage PAST SURGICAL HISTORY OF 02/1996 EMB TONSILLECTOMY AND ADENOIDECTOMY T/A (under age 13 years) FAMILY HISTORY Problem Relation Age of Onset Hypertension Mother Arthritis Mother Heart disease Mother Diabetes Father adult onset Emphysema Father Cancer Father lung Asthma Daughter Allergic Rhinitis Daughter Diabetes Paternal Grandmother Ischemic Heart Disease Maternal Grandfather Psychiatry Maternal Grandmother Social History Tobacco Use Smoking status: Never Smokeless tobacco: Never Tobacco comments: Father smoked in childhood home. 2 spouses were smokers. Vaping Use Vaping Use: Never used Substance Use Topics Alcohol use: No Drug use: No Current Outpatient Medications Medication Sig fludrocortisone (FLORINEF) 0.1 mg tablet Take 1 tablet by mouth once daily. LORazepam (ATIVAN) 0.5 mg Take by mouth. pravastatin (PRAVACHOL) 20 mg tablet TAKE 1 TABLET BY MOUTH EVERYDAY AT BEDTIME levothyroxine (SYNTHROID) 75 mcg tablet Take 1 tablet by mouth once daily. Take on empty stomach. For Thyroid sertraline (ZOLOFT) 100 mg tablet Take 1 tablet by mouth once daily. carbidopa-levodopa CR (SINEMET CR) 50-200 mg per tablet TAKE 1 TABLET BY MOUTH in Morning and before bedtime as instructed. gabapentin (NEURONTIN) 100 mg capsule Take 1 capsule by mouth three times daily for 180 days. Cholecalciferol, Vitamin D3, 50 mcg (2,000 unit) cap Take 2,000 Units by mouth once daily. diclofenac sodium (VOLTAREN) 1 % topical gel APPLY 2 GRAMS TO AFFECTED AREA 4 TIMES A DAY docusate sodium (COLACE ORAL) Take by mouth as needed. THERAPEUTIC MULTIVITAMIN TAB Take by mouth. ondansetron orally disintegrating (ZOFRAN ODT) 4 mg disintegrating tablet Take 1 tablet by mouth every 6 hours as needed for nausea/vomiting. No current facility-administered medications for this visit. ALLERGIES Allergen Reactions Sulfa (Sulfonamide * Hives REVIEW OF SYSTEMS: GENERAL: feeling well without fatigue, no recent change in weight HEENT: denies HOLLINGSWORTH, change in hearing or vision, no other ENT complaints NECK: denies swelling or pain in neck RESPIRATORY: no cough, no wheezing or shortness of breath CARDIOVASCULAR: no chest pain, no palpitations GI: nor (more content not included)... [facility] 08-12-2023 Instructions Aminata Royal APRN.CNP - 08/12/2023 3:56 PM EDT Try denny tea Also put something like a wedge pillow under your mattress to elevate the head of your bed. documented in this encounter [facility] 08-12-2023 Note HNO ID: [id number] Author: Aminata Royal APRN.BUCKET PUSHER Service: ? Author Type: Nurse Practitioner Type: Progress Notes Filed: 08/14/2023 7:33 AM Note Text: CC: Patient presents with: Recheck: 3 month follow up HPI Lou Oliver is a 78 year old female who presents today for routine follow up. Was seen recently by other provider for hypotension which is well controlled with florinef now. Parkinsons Disease: Follows with neurology and on sinemet. Tremors and symptoms patient reports are overall controlled with this. She is able to care for herself but is finding that activities, even dressing, seem to be more difficult, take longer, and then also makes her tired. Has been having trouble swallowing so was consulted to speech therapy and GI as ordered by neurology. Awaiting cookie swallow. States even water feels like there is a lump in her throat. Does have some heartburn recently. Also with nasea and bloating with eating. Does not take anything as it can interact with her sinemet. Denies cough, wheezing, fever, chills, abdominal pain, dark sticky stools, blood in stools, vomiting, shortness of breath, or chest pressure. Hypothyroidism: Takes medication as ordered. Denies any abnormal changes in weight. Depression: Feels well controlled on current treatment. Sleep: is described as normal but will get on average of 4 hours at a time, be up for a while then nap. Alcohol use: does not drink any alcohol Drug use: No Appetite: good Suicidal Thoughts: No suicidal ideation, intent or plan Support: Comes from multiple sources including family REVIEW OF SYSTEMS General: no fevers, no chills, no night sweats, no recurrent infections, no change in appetite, no change in energy, and no significant changes in weight Respiratory: no cough, no wheezing, no shortness of breath, no hemoptysis Cardiovascular: no chest pain, no chest pressure, no palpitations, and no swelling Neurologic: No headache, weakness, dizziness, memory loss, syncope. PAST MEDICAL HISTORY Diagnosis Date Diverticulosis of colon (without mention of hemorrhage) Essential hypertension, benign 04/04/2007 Mental disorder Migraine without aura 04/04/2007 Parkinson disease Unspecified hypothyroidism 04/04/2007 PAST SURGICAL HISTORY Procedure Laterality Date DELIVERY ONLY , low cervical x2 COLONOSCOPY FLX DX W/COLLJ SPEC WHEN PFRMD 1994 Colonoscopy COLONOSCOPY FLX DX W/COLLJ SPEC WHEN PFRMD 04/07/2012 Colonoscopy COLONOSCOPY FLX DX W/COLLJ SPEC WHEN PFRMD 06/17/2019 Colonoscopy DILATION AND CURETTAGE DXAND/THER NONOBSTETRIC 09/1982 Dilation AND curettage PAST SURGICAL HISTORY OF 02/1996 EMB TONSILLECTOMY AND ADENOIDECTOMY T/A (under age 12 years) ALLERGIES Sulfa (Sulfonamide Antibiotics) MEDICATIONS fludrocortisone (FLORINEF) 0.1 mg tablet Take 1 tablet by mouth once daily. LORazepam (ATIVAN) 0.5 mg Take by mouth. pravastatin (PRAVACHOL) 20 mg tablet TAKE 1 TABLET BY MOUTH EVERYDAY AT BEDTIME levothyroxine (SYNTHROID) 75 mcg tablet Take 1 tablet by mouth once daily. Take on empty stomach. For Thyroid sertraline (ZOLOFT) 100 mg tablet Take 1 tablet by mouth once daily. carbidopa-levodopa CR (SINEMET CR) 50-200 mg per tablet TAKE 1 TABLET BY MOUTH in Morning and before bedtime as instructed. gabapentin (NEURONTIN) 100 mg capsule Take 1 capsule by mouth three times daily for 180 days. Cholecalciferol, Vitamin D3, 50 mcg (2,000 unit) cap Take 2,000 Units by mouth once daily. diclofenac sodium (VOLTAREN) 1 % topical gel APPLY 2 GRAMS TO AFFECTED AREA 4 TIMES A DAY docusate sodium (COLACE ORAL) Take by mouth as needed. THERAPEUTIC MULTIVITAMIN TAB Take by mouth. FAMILY HISTORY Problem Relation Age of Onset Hypertension Mother Arthritis Mother Heart disease Mother Diabetes Father adult onset Emphysema Father Cancer Father lung Asthma Daughter Allergic Rhinitis Daughter Diabetes Paternal Grandmother Ischemic Heart Disease Maternal Grandfather Psychiatry Maternal Grandmother Social History Tobacco Use Smoking status: Never Smokeless tobacco: Never Tobacco comments: Father smoked in childhood home. 2 spouses were smokers. Vaping Use Vaping Use: Never used Substance Use Topics Alcohol use: No Drug use: No PHYSICAL EXAM BP 118/80 Pulse 68 Resp 16 Wt 61.7 kg (136 lb) SpO2 100% BMI 23.34 kg/m? General Appearance: well appearing, in no acute distress, alert Pysch: mood and affect broad and appropriate Skin: Skin color, texture, turgor normal for age; Eyes: conjunctiva pink and moist, no icterus, sclera white, non-injected Lungs: Lungs clear to auscultation. No wheezing, rhonchi, rales. Heart: RRR without murmur, gallop, or rubs. No ectopy Health maintenance reviewed with patient: BP Controlled (<130/80) Never done DTaP,Tdap,Td Vaccine(1 - Tdap) due on 05/22/2004 RSV Vaccine(1 - 1-dose 60+ series) Never d (more content not included)... [facility] 08-12-2023 History of Present illness Narrative CC: Patient presents with: Recheck: 3 month follow up HPI Lou Oliver is a 78 year old female who presents today for routine follow up. Was seen recently by other provider for hypotension which is well controlled with florinef now. Parkinsons Disease: Follows with neurology and on sinemet. Tremors and symptoms patient reports are overall controlled with this. She is able to care for herself but is finding that activities, even dressing, seem to be more difficult, take longer, and then also makes her tired. Has been having trouble swallowing so was consulted to speech therapy and GI as ordered by neurology. Awaiting cookie swallow. States even water feels like there is a lump in her throat. Does have some heartburn recently. Also with nasea and bloating with eating. Does not take anything as it can interact with her sinemet. Denies cough, wheezing, fever, chills, abdominal pain, dark sticky stools, blood in stools, vomiting, shortness of breath, or chest pressure. Hypothyroidism: Takes medication as ordered. Denies any abnormal changes in weight. Depression: Feels well controlled on current treatment. Sleep: is described as normal but will get on average of 4 hours at a time, be up for a while then nap. Alcohol use: does not drink any alcohol Drug use: No Appetite: good Suicidal Thoughts: No suicidal ideation, intent or plan Support: Comes from multiple sources including family REVIEW OF SYSTEMS General: no fevers, no chills, no night sweats, no recurrent infections, no change in appetite, no change in energy, and no significant changes in weight Respiratory: no cough, no wheezing, no shortness of breath, no hemoptysis Cardiovascular: no chest pain, no chest pressure, no palpitations, and no swelling Neurologic: No headache, weakness, dizziness, memory loss, syncope. PAST MEDICAL HISTORY Diagnosis Date Diverticulosis of colon (without mention of hemorrhage) Essential hypertension, benign 04/04/2007 Mental disorder Migraine without aura 04/04/2007 Parkinson disease Unspecified hypothyroidism 04/04/2007 PAST SURGICAL HISTORY Procedure Laterality Date DELIVERY ONLY , low cervical x2 COLONOSCOPY FLX DX W/COLLJ SPEC WHEN PFRMD 1994 Colonoscopy COLONOSCOPY FLX DX W/COLLJ SPEC WHEN PFRMD 04/07/2012 Colonoscopy COLONOSCOPY FLX DX W/COLLJ SPEC WHEN PFRMD 06/17/2019 Colonoscopy DILATION & CURETTAGE DX&/THER NONOBSTETRIC 09/1982 Dilation & curettage PAST SURGICAL HISTORY OF 02/1996 EMB TONSILLECTOMY & ADENOIDECTOMY <AGE 12 T/A (under age 12 years) ALLERGIES Sulfa (Sulfonamide Antibiotics) MEDICATIONS fludrocortisone (FLORINEF) 0.1 mg tablet Take 1 tablet by mouth once daily. LORazepam (ATIVAN) 0.5 mg Take by mouth. pravastatin (PRAVACHOL) 20 mg tablet TAKE 1 TABLET BY MOUTH EVERYDAY AT BEDTIME levothyroxine (SYNTHROID) 75 mcg tablet Take 1 tablet by mouth once daily. Take on empty stomach. For Thyroid sertraline (ZOLOFT) 100 mg tablet Take 1 tablet by mouth once daily. carbidopa-levodopa CR (SINEMET CR) 50-200 mg per tablet TAKE 1 TABLET BY MOUTH in Morning and before bedtime as instructed. gabapentin (NEURONTIN) 100 mg capsule Take 1 capsule by mouth three times daily for 180 days. Cholecalciferol, Vitamin D3, 50 mcg (2,000 unit) cap Take 2,000 Units by mouth once daily. diclofenac sodium (VOLTAREN) 1 % topical gel APPLY 2 GRAMS TO AFFECTED AREA 4 TIMES A DAY docusate sodium (COLACE ORAL) Take by mouth as needed. THERAPEUTIC MULTIVITAMIN TAB Take by mouth. FAMILY HISTORY Problem Relation Age of Onset Hypertension Mother Arthritis Mother Heart disease Mother Diabetes Father adult onset Emphysema Father Cancer Father lung Asthma Daughter Allergic Rhinitis Daughter Diabetes Paternal Grandmother Ischemic Heart Disease Maternal Grandfather Psychiatry Maternal Grandmother Social History Tobacco Use Smoking status: Never Smokeless tobacco: Never Tobacco comments: Father smoked in childhood home. 2 spouses were smokers. Vaping Use Vaping Use: Never used Substance Use Topics Alcohol use: No Drug use: No PHYSICAL EXAM BP 118/80 Pulse 68 Resp 16 Wt 61.7 kg (136 lb) SpO2 100% BMI 23.34 kg/m General Appearance: well appearing, in no acute distress, alert Pysch: mood and affect broad and appropriate Skin: Skin color, texture, turgor normal for age; Eyes: conjunctiva pink and moist, no icterus, sclera white, non-injected Lungs: Lungs clear to auscultation. No wheezing, rhonchi, rales. Heart: RRR without murmur, gallop, or rubs. No ectopy Health maintenance reviewed with patient: BP Controlled (<130/80) Never done DTaP,Tdap,Td Vaccine(1 - Tdap) due on 05/22/2004 RSV Vaccine(1 - 1-dose 60+ series) Never done Shingrix Vaccine(2 of 3) due on 08/11/2012 Advance Directive Discussion due on 10/21/2022 Covid-19 Vaccine( season) due on 06/21/2023 Annual PCP Team Chronic Disease Visit due on 08/12/2024 Diabetes Screening due on 05/15/2026 Bone Density Screening Completed Influenza Vaccine Completed Depression Assessment Completed Hepatitis C Screening Completed Pneumococcal Vaccine: 65+ Completed Mammogram Screening Discontinued Colorectal Cancer Screening Discontinued DATA REVIEWED: No new labs ASSESSMENT/PLAN: 1. Parkinson's disease, unspecified whether dyskinesia present, unspecified whether manifestations fluctuate - ICD9: 332.0, ICD10: G20.A1 (primary diagnosis) Disease progressing,. Patient still able to care for self but reporting some difficulty which takes tasks longer - possible cause of hypotension and difficulty swallowing. - continue with medications and recommendations by neurology. 2. Mixed hyperlipidemia - ICD9: 272.2, ICD10: E78.2 - Control undetermined, due for labs - Continue current medications - Counseled on healthy diet and regular exercise - Discussed need for and benefit of weight loss. BMI 22.98 kg/(m^2) - LIPID PANEL BASIC 3. Hypothyroidism, unspecified type - ICD9: 244.9, ICD10: E03.9 - Instructed patient on importance of taking on an empty stomach either first thing in the morning or at bedtime. - TSH BLD - T4 FREE/FREE THYROX 4. Gastroesophageal reflux disease, unspecified whether esophagitis present - ICD9: 530.81, ICD10: K21.9 - awaiting cookie swallow and visit with GI for further evaluation. - patient may benefit from PPI or pepcid but does not want anything to interact with her PD meds. - Discussed lifestyle modifications including losing weight, limiting caffeine, no meals three hours before sleep, and head of bed elevation 5. Hypotension, unspecified hypotension type - ICD9: 458.9, ICD10: I95.9 - controlled at this time with florinef - BASIC METABOLIC PNL - CBC 6. Vitamin D deficiency - ICD9: 268.9, ICD10: E55.9 - VITAMIN D 25 HYDROXY Prescription instructions reviewed with patient as applicable. Potential red flag symptoms discussed with the patient. Reviewed appropriate action plan to take if red flag symptoms occur. Patient agreeable to treatment plan. Aminata Royal APRN.ADRIANNA documented in this encounter [facility] 08-09-2023 Miscellaneous Notes Attempted to contact patient to follow up after procedure. Left a brief message asking patient to return call if they have any questions or concerns. Anne-Marie Ghotra LPN documented in this encounter [facility] 08-07-2023 Nurse Note Order has been placed in the patient's chart with the following parameters for discharge from the physician: Patient is alert and oriented Vitals: Diastolic/Systolic +/- 20mmHg Respirations: 12-18 Pulse: 60-100 SpO2 is greater than or equal to 90% Patient has no nausea or vomiting Patient has no dizziness Pain level is +/- 2 from initial evaluation Dressing, dry and intact with no evidence of bleeding Criteria has been met, patient is okay to be discharged per the physician. Physician has gone in and evaluated the patient. Dressing dry and intact. No drainage noted. The patient denies nausea, numbness, tingling, weakness, shortness of breath, dizziness, or headache. Pain level 6 /10. Vital signs within normal limits. Patient denied needing walked out by clinical staff and denied needing a wheelchair. Patient given discharge instructions and sent to transportation via ambulatory method. Patient left in good condition. Procedure to be performed: C4/5 -C5/6 Bilateral Medial Branch Block without steroid Patient was wheeled on stretcher from pre op bay to procedure room and assisted onto the procedure tablePatient s procedure was performed in an [facility] Procedure room. Pause completed at each level by provider to verify correct level and laterality placement Pressure was applied to patient s injection site(s) and bleeding was minimal. Patient had no complaint of shortness of breath, dizziness, headache, numbness, tingling, weakness or complications from procedure. Patient was assisted from the procedure table onto the stretcher and wheeled into a post op bay. Patient was advised a clinician will be to obtain another set of vitals. Time Out: 1008 Confirmed patient name, date of , procedure site, laterality, and allergies Procedure Start: 101 Procedure End: 102 Addiction Therapist's Name: KIM Are you on a blood thinner: NO If yes, is a hold required: NO Last dose of blood thinner: NO INR Result today: NO Do you require a Lovenox bridge:NO Are you a diabetic:NO Are you/or could you be : NO Are you taking Xanax for the procedure: NO Are you currently on a steroid? NO Are you currently on an antibiotic: NO Have you had a COVID-19 vaccine in the last 14 days Or are you scheduled to receive one? NO documented in this encounter [facility] 08-07-2023 History of Present illness Narrative [facility] Date: 08/07/2023 Patient name: Lou Oliver Physician performing procedure: Jak Diaz M.D., M.B.A. Diagnosis: (M47.812) Cervical spondylosis without myelopathy (primary encounter diagnosis) Procedure: Medial Branch Block (Diagnostic only, NO STEROIDS) under fluoroscopic guidance BILATERAL SIDES at C4-5 and C5-6 Injectate: A total of 3 ml volume was injected The injectate consisted of: 3 ml of 0.5% Bupivacaine, . Each site received equal volumes of this injectate. Comments: None Improvement after today's procedure: as per nursing report HPI: Lou Oliver is an 78 year old FEMALE who presents today, in pain, for the procedure noted above. Review of Systems: Pertinent Positives: MSK: pain in the region being treated Neuro: no weakness or numbness in the region being treated Skin: Negative (No itching) Eyes: Negative (No blurred or double vision) Respiratory: Negative (No Cough, [id number], Dyspnea on exertion, wheezing) Cardiovascular: Negative (No Chest Pain, Tightness, Pressure, Palpitations) Gastrointestinal: Negative (No Abdominal pain, Nausea, Vomiting, Constipation, Diarrhea) Genitourinary: Negative (No dysuria) Hematologic: Negative (No bleeding, bruising) OB: is Denied or Not Applicable Endocrine: Negative (No hot/cold intolerance) Psychiatric: Negative (No depression, anxiety or suicidal ideation) PAST MEDICAL HISTORY Diagnosis Date Diverticulosis of colon (without mention of hemorrhage) Essential hypertension, benign 04/04/2007 Mental disorder Migraine without aura 04/04/2007 Parkinson disease Unspecified hypothyroidism 04/04/2007 PAST SURGICAL HISTORY Procedure Laterality Date DELIVERY ONLY , low cervical x2 COLONOSCOPY FLX DX W/COLLJ SPEC WHEN PFRMD 1994 Colonoscopy COLONOSCOPY FLX DX W/COLLJ SPEC WHEN PFRMD 04/07/2012 Colonoscopy COLONOSCOPY FLX DX W/COLLJ SPEC WHEN PFRMD 06/17/2019 Colonoscopy DILATION & CURETTAGE DX&/THER NONOBSTETRIC 09/1982 Dilation & curettage PAST SURGICAL HISTORY OF 02/1996 EMB TONSILLECTOMY & ADENOIDECTOMY <AGE 12 T/A (under age 13 years) FAMILY HISTORY Problem Relation Age of Onset Hypertension Mother Arthritis Mother Heart disease Mother Diabetes Father adult onset Emphysema Father Cancer Father lung Asthma Daughter Allergic Rhinitis Daughter Diabetes Paternal Grandmother Ischemic Heart Disease Maternal Grandfather Psychiatry Maternal Grandmother Social History Tobacco Use Smoking status: Never Smokeless tobacco: Never Tobacco comments: Father smoked in childhood home. 2 spouses were smokers. Vaping Use Vaping Use: Never used Substance Use Topics Alcohol use: No Drug use: No Current Outpatient Medications on File Prior to Visit Medication Sig fludrocortisone (FLORINEF) 0.1 mg tablet Take 1 tablet by mouth once daily. LORazepam (ATIVAN) 0.5 mg Take by mouth. pravastatin (PRAVACHOL) 20 mg tablet TAKE 1 TABLET BY MOUTH EVERYDAY AT BEDTIME levothyroxine (SYNTHROID) 75 mcg tablet Take 1 tablet by mouth once daily. Take on empty stomach. For Thyroid sertraline (ZOLOFT) 100 mg tablet Take 1 tablet by mouth once daily. carbidopa-levodopa CR (SINEMET CR) 50-200 mg per tablet TAKE 1 TABLET BY MOUTH in Morning and before bedtime as instructed. gabapentin (NEURONTIN) 100 mg capsule Take 1 capsule by mouth three times daily for 180 days. Cholecalciferol, Vitamin D3, 50 mcg (2,000 unit) cap Take 2,000 Units by mouth once daily. diclofenac sodium (VOLTAREN) 1 % topical gel APPLY 2 GRAMS TO AFFECTED AREA 4 TIMES A DAY docusate sodium (COLACE ORAL) Take by mouth as needed. THERAPEUTIC MULTIVITAMIN TAB Take by mouth. No current facility-administered medications on file prior to visit. Objective Exam: Vitals: As per nursing documentation Constitutional: Normal Appearance, Oriented to Time, Place and Person Head: No lacerations, no external signs of trauma Eyes: Conjunctiva clear. No discharge from the eyes Cardiovascular: Appears well-perfused Pulmonary: Non-labored respirations Abdominal: Non-distended Skin: No visible rashes or ecchymosis Psychiatric: Mood appropriate for given condition Neurological: Gross movements are limited by pain, but otherwise unremarkable Data Reviewed: Nursing note and vitals reviewed. Additional imaging reviewed as appropriate Assessment and Plan: As noted above [place] protocol documentation / Pre-Procedure Checklist: Consent: Obtained in writing prior to procedure I had a nice discussion with the patient today about their current pain and the pathology that could be causing it We discussed different treatment options, including risks, benefits and alternatives. We agreed to proceed as previously discussed, or the plan was modified in accordance with the comments noted above Unless stated otherwise in the procedure note, the risks include but are not limited to infection, allergic reaction, increased pain, lack of therapeutic benefit, steroid reaction, nerve damage, paralysis, stroke, epidural hematoma, syncope, headache, respiratory or cardiac arrest, pneumothorax, and scar formation Once the plan was agreed upon, the patient gave written consent to proceed and was transported into the procedure room Surgical/Procedure pause or Time Out : Time Out was led by the physician in the procedure room, with the patient and all staff present and participating The following information was verified during the Time Out process: Patient name, patient date of , procedure site (marked), laterality, anticoagulants and allergies Procedure: The patient was prepped and draped in a sterile fashion in the prone position after informed consent was signed and all patient questions were answered including the risks, benefits, alternative treatment options, and prognosis. The risks are as mentioned above. To block the facet joint nerves from C4 through C6, the lateral masses of these respective levels were localized under fluoroscopic visualization. A spinal needle was inserted down to the waist at the above-mentioned cervical levels. Using biplanar imaging, the needle was then walked off until it rested just lateral to the trough of the lateral mass of the medial branch nerve lies, which innervates the cervical facet joint. After contact with periosteum and negative aspirate for blood and CSF, correct placement of each needle without intravascular or epidural spread was confirmed by injecting 0.2cc of Omnipaque 300. A spot radiograph was obtained of this image. Next, a 0.5cc volume of the injectate noted above was then injected. Please see the nursing note for exact times (time out, procedure start, procedure end). After careful removal of the needle, there was minimal bleeding. The injection site was covered with appropriate sterile dressing. The patient was noted to have tolerated the procedure well and was discharged after an appropriate period of post-procedure observation. The patient was instructed to contact us if there were any complications. The patient was advised to follow-up with the requesting physician within one to two weeks or as per their requested follow-up plan. Post procedure visit summary with written instructions was offered to the patient. Jak [facility] Review of Systems Constitutional: Positive for activity change and unexpected weight change. Negative for chills and fever. Genitourinary: Negative for difficulty urinating. Musculoskeletal: Positive for arthralgias, gait problem, myalgias, neck pain and neck stiffness. Negative for back pain and joint swelling. Neurological: Positive for weakness and headaches. Negative for numbness. Psychiatric/Behavioral: Positive for dysphoric mood and sleep disturbance. Negative for suicidal ideas. The patient is nervous/anxious. documented in this encounter [facility] 08-07-2023 Instructions Kori Dumas LPN - 08/07/2023 9:32 AM EDT PROCEDURE DISCHARGE INSTRUCTIONS 08/07/2023 Lou Oliver 1945 Physician: Jak Diaz MD Procedure: Facet Joint Injection/Medial Branch Block Post Procedure Instructions: If sedation not given, no driving for 3 hours after the procedure., Perform activities that typically make you have pain and monitor your pain level during these activities for the next 3-4 hours., Apply cold compresses to injection site if needed., If medically acceptable, take over the counter anti-inflammatories such as ibuprofen or Aleve if needed for post procedure discomfort., No hot baths, hot tubs or hot compresses for 24 hours., and Increased pain the day after the procedure may occur. If you have any of the following signs or symptoms, please call our office at Fever and/or chills Swelling and/or drainage from injection site New pain that is different than your normal pain (other than soreness at the site of the procedure) Stiff neck Shortness of breath Severe increase in pain Motor dysfunctions, such as difficulty walking, bowel or bladder dysfunction and/or incontinence Headache that is severe, light sensitive or develops when changing positions (positional headache) Nausea and/or vomiting accompanied by headache that started 24-48 hours after the procedure If you have any emergent concerns, please call 911 or go to your local emergency room. Please also contact our office to let us know you will be seeking emergency care and why. documented in this encounter [facility] 08-01-2023 Note HNO ID: [id number] Author: Karen Francis CCC-MARKETING PROJECT COORDINATOR Service: ? Author Type: Speech Language Pathologist Type: Progress Notes Filed: 08/01/2023 3:16 PM Note Text: Episode Visit Count: 1 Therapist That Will Accept/Oversee The Plan Of Care: Kevin Start of Care Date: 08/01/23 Onset Date: (last 6 months) Plan of Care Certification Date: 08/01/23 Patient Identified by Name and Date of : Yes [facility] SPEECH THERAPY CLINICAL SWALLOW EVALUATION PLAN OF CARE: Impression: Swallow Deficits Identified / Suspected: Concern for possible esophageal impairment, Oropharyngeal dysphagia Prognosis: Excellent Excellent: current objective clinical presentation RECOMMENDATION: Diet Recommendations: Regular Consistency, Thin Liquids IDDSI Level 0, Medications whole in puree (pudding/applesauce) Swallowing Precautions Recommendations: Self-monitoring, Small Bite/Sip, Sit upright 90 degrees for all PO, Use extra moistening agents, Controlled Volume with each drink presentation, Reduced bite size, Anti-Reflux precautions, Alternate bites and sips, Double swallows MARKETING PROJECT COORDINATOR Recommendations: Diet, Instrumental Swallow Assessment Recommendations, Swallowing Precautions, ---Discontinue Speech Therapy--may re-assess or require follow-up ST tx dependent on outcomes following MBS Instrumental Swallow Assessment Recommendations: Modified Barium Swallow Study (MBSS) Recommended Consults: GI Results and Recommendations Discussed With: Patient, Family Planned Interventions, Frequency, and Duration: Current Frequency: 1 visit Duration: 1 visit SUGGESTED TREATMENT OBJECTIVES: -Obtain Modified Barium Swallow results PLAN FOR NEXT VISIT: Modified Barium Swallow Study Patient demonstrates good understanding of results, recommendations, goals and plan of care. Patient and daughter Debra agreed with plan. SUBJECTIVE: Lou Oliver is a 78 year old female seen today for clinical swallowing assessment. increased coughing with liquids, difficulty with swallowing pills, globus sensation -Diagnosed with Parkinson's disease in 2020; has noticed dysphagia has gotten progressively worse -Endorses globus sensation with liquids at times, reports it is intermittent -Prefers to take pills in puree/pudding Relevant medical history/ comorbidities: Complaints of heartburn: Yes occasional Complaints of food items getting stuck: Yes -suspect esophageal component OBJECTIVE MEASURES WITH LEVEL OF FUNCTION: Swallow Position Of Patient During Assessment: Upright In Chair Consistencies Presented: Thin Liquids IDDSI Level 0, Pureed IDDSI Level 4, Solid Response to Consistencies Presented: -No coughing noted with PO trials -Endorses globus sensation with liquids and solids; reports occasional 'gurgling' noise in throat following PO intake -Reports sensation of needing to belch but unable to produce -Mastication appears timely with minimal oral residue post swallow; independent use of liquid wash is beneficial to clear residue Compensatory Strategies Utilized During Assessment: Alternate bites and sips, Anti-Reflux precautions, Check oral cavity for remaining food, Double swallows, Extended time between presentations, Self-monitoring, Use extra moistening agents Clinical Swallow [place] Swallow Protocol: Pass Oral Pharyngeal Swallow Assessment: Within Functional Limits Except Preparatory / Oral Phase: Within Functional Limits Except A-P Transit: Suspect impairment (with consecutive straw sips, delayed A-P transfer of liquids) Oral Residue: Mildly Impaired Pharyngeal Phase: Within Functional Limits Except Initiation of Swallow: Suspect impairment Reflexive Throat Clear and Cough after Swallowing: No Multiple Swallows: Yes, Post-Swallow Suspected Esophageal Deficits: yes Education Learning Preferences: Performance, Explanation Barriers: None Learning/Educational Needs: Family Education/Training, MBSs results Education Provided: Yes, see treatment interventions for education provided Education Provided To: Patient, Family Education Mode/Type: Explanation/Discussion Response to Education/Teach Back: States/Identifies, Return Demonstration TREATMENT: Evaluation: Swallow Eval Func (83362) Evaluation: Swallow Eval Func (96728) Swallow / Dysphagia (70602): Skilled Intervention: Provided education related to a typical swallowing mechanism in a compare and contrast manner compared to this patient's current skill set. , Educated and advised patient / caregiver on texture and liquid consistency recommendations., Instructed patient / caregiver on recommended compensatory strategies to maximize safety with oral intake while maintaining nutrition, hydration and medication stability. Current Home Program: -Swallow strategies; MBS results Billing: Clinical Swallow Evaluation (57334) and Dysphagia Treatment (21743) Total time / Length of visit: 4 (more content not included)... [facility] 08-01-2023 History of Present illness Narrative Episode Visit Count: 1 Therapist That Will Accept/Oversee The Plan Of Care: Kevin Start of Care Date: 08/01/23 Onset Date: (last 6 months) Plan of Care Certification Date: 08/01/23 Patient Identified by Name and Date of : Yes [facility] SPEECH THERAPY CLINICAL SWALLOW EVALUATION PLAN OF CARE: Impression: Swallow Deficits Identified / Suspected: Concern for possible esophageal impairment, Oropharyngeal dysphagia Prognosis: Excellent Excellent: current objective clinical presentation RECOMMENDATION: Diet Recommendations: Regular Consistency, Thin Liquids IDDSI Level 0, Medications whole in puree (pudding/applesauce) Swallowing Precautions Recommendations: Self-monitoring, Small Bite/Sip, Sit upright 90 degrees for all PO, Use extra moistening agents, Controlled Volume with each drink presentation, Reduced bite size, Anti-Reflux precautions, Alternate bites and sips, Double swallows MARKETING PROJECT COORDINATOR Recommendations: Diet, Instrumental Swallow Assessment Recommendations, Swallowing Precautions, ---Discontinue Speech Therapy--may re-assess or require follow-up ST tx dependent on outcomes following MBS Instrumental Swallow Assessment Recommendations: Modified Barium Swallow Study (MBSS) Recommended Consults: GI Results and Recommendations Discussed With: Patient, Family Planned Interventions, Frequency, and Duration: Current Frequency: 1 visit Duration: 1 visit SUGGESTED TREATMENT OBJECTIVES: -Obtain Modified Barium Swallow results PLAN FOR NEXT VISIT: Modified Barium Swallow Study Patient demonstrates good understanding of results, recommendations, goals and plan of care. Patient and daughter Debra agreed with plan. SUBJECTIVE: Lou Oliver is a 78 year old female seen today for clinical swallowing assessment. increased coughing with liquids, difficulty with swallowing pills, globus sensation -Diagnosed with Parkinson's disease in 2020; has noticed dysphagia has gotten progressively worse -Endorses globus sensation with liquids at times, reports it is intermittent -Prefers to take pills in puree/pudding Relevant medical history/ comorbidities: Complaints of heartburn: Yes occasional Complaints of food items getting stuck: Yes -suspect esophageal component OBJECTIVE MEASURES WITH LEVEL OF FUNCTION: Swallow Position Of Patient During Assessment: Upright In Chair Consistencies Presented: Thin Liquids IDDSI Level 0, Pureed IDDSI Level 4, Solid Response to Consistencies Presented: -No coughing noted with PO trials -Endorses globus sensation with liquids and solids; reports occasional 'gurgling' noise in throat following PO intake -Reports sensation of needing to belch but unable to produce -Mastication appears timely with minimal oral residue post swallow; independent use of liquid wash is beneficial to clear residue Compensatory Strategies Utilized During Assessment: Alternate bites and sips, Anti-Reflux precautions, Check oral cavity for remaining food, Double swallows, Extended time between presentations, Self-monitoring, Use extra moistening agents Clinical Swallow [place] Swallow Protocol: Pass Oral Pharyngeal Swallow Assessment: Within Functional Limits Except Preparatory / Oral Phase: Within Functional Limits Except A-P Transit: Suspect impairment (with consecutive straw sips, delayed A-P transfer of liquids) Oral Residue: Mildly Impaired Pharyngeal Phase: Within Functional Limits Except Initiation of Swallow: Suspect impairment Reflexive Throat Clear and Cough after Swallowing: No Multiple Swallows: Yes, Post-Swallow Suspected Esophageal Deficits: yes Education Learning Preferences: Performance, Explanation Barriers: None Learning/Educational Needs: Family Education/Training, MBSs results Education Provided: Yes, see treatment interventions for education provided Education Provided To: Patient, Family Education Mode/Type: Explanation/Discussion Response to Education/Teach Back: States/Identifies, Return Demonstration TREATMENT: Evaluation: Swallow Eval Func (08693) Evaluation: Swallow Eval Func (58970) Swallow / Dysphagia (35716): Skilled Intervention: Provided education related to a typical swallowing mechanism in a compare and contrast manner compared to this patient's current skill set. , Educated and advised patient / caregiver on texture and liquid consistency recommendations., Instructed patient / caregiver on recommended compensatory strategies to maximize safety with oral intake while maintaining nutrition, hydration and medication stability. Current Home Program: -Swallow strategies; MBS results Billing: Clinical Swallow Evaluation (17909) and Dysphagia Treatment (72971) Total time / Length of visit: 45 minutes Session Start Time : 1330 Session Stop Time : 1415 Karen Francis CCC-MARKETING PROJECT COORDINATOR documented in this encounter [facility] 07-25-2023 Instructions Zhane Sylvester PA-C - 07/25/2023 3:45 PM EDT Speech therapy for swallowing evaluation U-Step walker Increase water intake to 60 ounces a day Continue current regimen: florinef 0.1 mg a day Sinemet 25/100mg dose: -Take 1 tabs at 730AM (after eating something). -Take 1 tabs at 1130AM. -Take 1.5 tabs at 330PM (after lunch). -Take 1 tabs at 730 PM 2. Sinemet CR 50/200mg dose: -Take 1 tablet with your 730AM dose of short acting Sinemet. -Take 1 tablet at 10-11 PM. Follow up with Dr. Connolly in 4-5 months documented in this encounter [facility] 07-25-2023 History of Present illness Narrative ESTABLISHED PATIENT VISIT Last visit: 06/18/23 ASSESSMENT/PLAN: 1. Parkinson's disease (HCC) - ICD9: 332.0, ICD10: G20 (primary diagnosis) 2. Orthostatic hypotension - ICD9: 458.0, ICD10: I95.1 3. Imbalance - ICD9: 781.2, ICD10: R26.89 Patient with episode of severe hypotension on 06-11-2023, likely combination of Parkinson's, Sinemet, dehydration. Patient was given IV hydration and discharged. She has since followed up with primary care, started on Florinef 0.1 mg a day. Patient notes significant improvement after starting this medication, states that she no longer has positional lightheadedness. Notes that she also increased her water intake as well with a goal of 60 ounces a day. Patient notes some generalized achiness after starting the medication, but no other side effects. Blood pressure today is 118/60 and heart rate is 69. Patient tolerating this well, she has not had any further instances of hypotension, will continue at this dosage. Patient does have Parkinson's and is on Sinemet, both of which can cause hypotension, will refer to neuromuscular to rule out any other additional work-up versus treatment plan for her orthostatic intolerance. Regarding medications. Patient notes that she likes her current regiment, however feels her 330 dose wears off very quickly as she is very active during that time. After discussion with family and patient, will increase 330PM dose to 1.5 tablets. Discussed that this will likely further decrease her blood pressure around that time and to increase water intake and salt intake around that time as well. Patient agrees and understands. New regimen is detailed below. Additionally, patient having issues with gait. She is continuing to exercise with her Parkinson's exercise class IV times a week and does physical therapy exercises at home for her neck. Was recently given a walker from a family member, feel a U step walker may be more beneficial for her, order was placed. Sinemet 25/100mg dose: -Take 1 tabs at 730AM (after eating something). -Take 1 tabs at 1130AM. -Take 1.5 tabs at 330PM (after lunch). -Take 1 tabs at 730 PM 2. Sinemet CR 50/200mg dose: -Take 1 tablet with your 730AM dose of short acting Sinemet. -Take 1 tablet at 10-11 PM. Discussed other conservative measures for orthostatic hypotension including increasing water intake, increasing salt intake, compression and continued exercise. Patient and daughter agree and understand. Patient also endorsing some difficulty with swallowing and inability to belch. This is a longstanding issue that has slightly worsened over the last few months. Will consult to speech to evaluate need for swallow study. Patient and daughter agreeable to treatment plan, all questions were answered. Patient follow-up as planned in July. Zhane Sylvester PA-C CHIEF COMPLAINT: follow up HISTORY OF PRESENT ILLNESS: Lou Oliver is a 78 year old female, Ht 163.8 cm (5' 4.5 ) BMI 22.98 kg/m2 with a PMH significant for migraine, parkinson's disease, intracranial meningioma, hypothyroidism, anxiety. Last seen on 06/18/23 for syncopal episode. 0.1mg Florinef added to regimen. Referred to neuromuscular to rule out other cause of neuromuscular intolerance. Increased 330 dose to 1.5 tablets. Placed order for U step walker. Sent to speech therapy for difficulty with swallowing. Saw PCP 07/19/23, taking Florinef once daily and feels her blood pressures are jumping around. Today patient presents with daughter for follow up. Patient states that she has been doing well since last appointment. Notes that she is taking her blood pressures at home and her systolic is ranging from 98-1 36. Notes that she has not had any further episodes of lightheadedness since last appointment. No episodes of syncope, no falls. Has an appointment with speech therapy scheduled for next week, notes that she still has difficulty swallowing liquids. Continuing to take Florinef 0.1 mg daily without any issues. Does note that she received her med alert necklace yesterday. Also notes she has an appointment with pain management coming up in the next few weeks. Patient has been wearing compression socks and feels they are helpful. Was given a referral for a U step walker at last appointment, but patient states she has not gotten this yet. Does note that she tried one of her friends walkers who also has Parkinson's, this was a U step walker, and notes that she found this very useful and would like 1. States that she will go to a medical supply store and have his walker. At last appointment, patient reported that she was having worsening of her Parkinson symptoms in the afternoon, did increase her Sinemet dose at 330 to 1.5 tablets instead of 1. Patient notes she has noticed a significant improvement after increasing this, no lightheadedness or side effects with this. Believes this is helped her sleep. Notes that she is sleeping better throughout the night, up to 5 hours at once. Does take some naps throughout the day. Notes that she is still exercising, notes that she has her regular dance class scheduled for tomorrow. Regarding new symptoms, patient does note some GI distress. Notes that she will have episodes of constipation and then will need to take a laxative. After she takes that she has significant diarrhea. Daughter notes that this has been a lifelong issue and it is hard to know if this is secondary to medications, Parkinson's or just her normal GI issues. Patient was discussing this with primary care and has a follow-up appointment for this next week. Did discuss patient's hydration and states that yesterday was a bad day for constipation and also states she did not drink water throughout the day. I did asked the patient if her symptoms seem to be worse when she does not drink water and she believes they are. I asked patient what her diet typically consists of and states that it is improved since she is now doing meal meals. But that is much more balanced and nutritious. States that even if she eats a normal-sized meal she gets significant bloating, this bloating progresses throughout the day and she feels as if she is due to the bloating. No blood in stool, no vomiting. REVIEW OF SYSTEMS GENERAL:No weight loss, malaise or fevers. HEENT:Negative for frequent or significant headaches, No changes in hearing or vision, no nose bleeds or other nasal problems NECK:Negative for lumps, goiter, pain and significant neck swelling RESPIRATORY: Negative for cough, wheezing or shortness of breath. CARDIOVASCULAR: Negative for chest pain, leg swelling or palpitations. GASTROINTESTINAL: Negative for abdominal discomfort, blood in stools or black stools or change in bowel habits GENITOURINARY: No history of dysuria, frequency or incontinence MUSCULOSKELETAL: Negative for joint pain or swelling, back pain or muscle pain. NEUROLOGIC:Negative for focal numbness or weakness, headaches and dizziness or syncope, vision changes, speech/languag changes - EXCEPT that as per HPI above. SKIN:Negative for lesions, rash, and itching. PSYCHIATRIC: Negative for sleep disturbance, mood disorder and recent psychosocial stressors. HEMATOLOGIC/LYMPHATIC/IMMUNOLOGIC: Negative for prolonged bleeding, bruising easily or swollen nodes. ENDOCRINE: Negative for cold or heat intolerance, polyuria, polydipsia and goiter. The remainder of the ROS was reviewed and is negative. LAB/IMAGING: Those performed since patient's last visit have been reviewed. None since last appointment MEDICATIONS: fludrocortisone (FLORINEF) 0.1 mg tablet Take 1 tablet by mouth once daily. LORazepam (ATIVAN) 0.5 mg Take by mouth. pravastatin (PRAVACHOL) 20 mg tablet TAKE 1 TABLET BY MOUTH EVERYDAY AT BEDTIME levothyroxine (SYNTHROID) 75 mcg tablet Take 1 tablet by mouth once daily. Take on empty stomach. For Thyroid sertraline (ZOLOFT) 100 mg tablet Take 1 tablet by mouth once daily. carbidopa-levodopa CR (SINEMET CR) 50-200 mg per tablet TAKE 1 TABLET BY MOUTH in Morning and before bedtime as instructed. gabapentin (NEURONTIN) 100 mg capsule Take 1 capsule by mouth three times daily for 180 days. Cholecalciferol, Vitamin D3, 50 mcg (2,000 unit) cap Take 2,000 Units by mouth once daily. diclofenac sodium (VOLTAREN) 1 % topical gel APPLY 2 GRAMS TO AFFECTED AREA 4 TIMES A DAY docusate sodium (COLACE ORAL) Take by mouth as needed. THERAPEUTIC MULTIVITAMIN TAB Take by mouth. HISTORIES PAST MEDICAL HISTORY Diagnosis Date Diverticulosis of colon (without mention of hemorrhage) Essential hypertension, benign 04/04/2007 Mental disorder Migraine without aura 04/04/2007 Parkinson disease (HCC) Unspecified hypothyroidism 04/04/2007 FAMILY HISTORY Problem Relation Age of Onset Hypertension Mother Arthritis Mother Heart disease Mother Diabetes Father adult onset Emphysema Father Cancer Father lung Asthma Daughter Allergic Rhinitis Daughter Diabetes Paternal Grandmother Ischemic Heart Disease Maternal Grandfather Psychiatry Maternal Grandmother SOCIAL HISTORY Social History Tobacco Use Smoking status: Never Smokeless tobacco: Never Tobacco comments: Father smoked in childhood home. 2 spouses were smokers. Vaping Use Vaping Use: Never used Substance Use Topics Alcohol use: No Drug use: No PHYSICAL EXAMINATION Ht 163.8 cm (5' 4.5 ) Wt 61.7 kg (136 lb) BMI 22.98 kg/m GENERAL EXAM: General appearance: NAD, pleasant. HEENT: NC/AT, nasal congestion absent, no oral lesions, membranes moist. NECK: No masses, supple. Lungs: Breathing comfortably Extr: Moves all extremities without difficulty Skin: Cool to touch. No rash. NEUROLOGICAL EXAM: General: Awake, alert, oriented x3 (person,place,time), speech fluent, no dysarthria; comprehension, naming, repetition intact. 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 CN: PERRL, EOMI and without nystagmus, VFF to confrontation, facial sensation and strength are normal and symmetric, hearing is intact to finger rub bilaterally, palate and tongue movements are intact and symmetric. SCM and trapezius strength normal. Motor Slight rigidity to the RUE, normal bulk and strength (5/5) bilaterally (throughout extremities x4). Reflexes: 2/4 and symmetric Coordination: FNF intact. Slight intention tremor bilaterally (R>L) Sensation: No evidence of neglect. Gait: Narrow based and stable with normal stride and arm swing. Romberg with positive step. ++retropulsion. Assessment and Plan: ASSESSMENT/PLAN: 1. Parkinson's disease, unspecified whether dyskinesia present, unspecified whether manifestations fluctuate - ICD9: 332.0, ICD10: G20.A1 (primary diagnosis) 2. Orthostatic intolerance - ICD9: 458.0, ICD10: I95.1 Patient doing well with current regimen. Patient just took her 330 dose prior to this appointment, did note some rigidity in the right upper extremity, but otherwise exam was consistent with previous. At last appointment did increase her 330 dose of Sinemet from 1 tablet to 1.5 tablets. No side effects with this, tolerating this well. Continuing to take Florinef 0.1 mg daily and notes that her lightheadedness has completely resolved since taking this. Has been taking her blood pressures regularly at home with systolic readings ranging from 98-136. Notes prior to this they were as low as 40-60. No falls, no episodes of syncope, no new symptoms other than some GI distress noted above. Unclear etiology to this, patient notes that her constipation and bloating is worse when she does not drink water, encouraged her to increase her water intake as this will help with her abdominal issues, Parkinson's. No blood in her stool, notes that she has had lifelong issues with constipation and diarrhea. Encouraged her to follow-up with primary care as planned for possible referral to GI. Regarding Parkinson's, patient is pleased with current regimen, still endorsing some nausea when taking her Sinemet throughout the day, no vomiting. Wearing compression socks with improvement in her symptoms as well. Notes that her sleeping is improved as well since last appointment. Overall, patient is doing well, no changes in regimen today. Did prescribe U step walker at last appointment, patient has yet to get this. Encouraged her to do so, states that she tried her friends U step walker and did like this. Patient also continuing to do exercise classes as well. Patient is endorsing some issues with swallowing liquids, has appointment with speech therapy next week and encouraged to keep this appointment. Patient and daughter agreeable to treatment plan of care at this time, all questions were answered. As patient is been doing well, will have her follow-up in 4 to [address] Connolly. However, should she need to be seen sooner, discussed that she can schedule follow-up at any time with myself. Zhane Sylvester PA-C I spent a total of 45 minutes on the date of the service which included preparing to see the patient, [id number] patient care, completing clinical documentation, obtaining and/or reviewing separately obtained history, performing a medically appropriate examination, and counseling and educating the patient/family/caregiver. This document has been created with the use of voice recognition technology. It may contain inaccuracies: (e.g. misspellings, inaccurate syntax or word sense) that have escaped review. 06/10/2023 PROMIS [facility] Physical Health Summary Physical health: Fair Everyday physical activity, ability: Moderately Fatigue: Severe Pain level: 5 General health: Social activities/roles, ability: Fair Physical Health T-Score (Poor) Physical Health Percentile PROMIS [facility] Mental Health Summary Quality of life: Fair Mental health (mood,thinking): Good Social satisfaction: Fair Emotional problems (anxious,depressed): Sometimes Mental Health T-Score (Fair) Mental Health Percentile PROMIS NEUROQOL COGNITIVE FUNCTION SCORE 03/18/2023 Prom[facility] Neuroqol Cognitive Percentile 12 PROMIS PHYSICAL FUNCTION SCORE 05/17/2023 04/14/2023 03/18/2023 [facility] Physical Function Percentile 8 12 12 PROMIS PAIN INTERFERENCE SCORE 03/18/2023 11/16/2022 [facility] Pain Interference Percentile 12 12 Percentiles provide an indication of how a patient's score ranks in relation to the [place] general population. > 31st percentile is within normal limits or better *< 31st percentile is at least SD worse than population, which may be clinically relevant < 16th percentile is at least 1 SD worse than population and warrants attention 11/16/2022 Sleep Apnea Probability Snores loudly: No Tired, fatigued or sleepy in daytime: Yes Stops breathing or choking/gasping during sleep: No High blood pressure: No Sleep Apnea Probability Score: (Sleep study not recommended) documented in this encounter [facility] 07-19-2023 History of Present illness Narrative CC: Patient presents with: Follow Up: 6 week follow up Immunizations: Flu vaccination HPI Lou Oliver is a 78 year old female who presents today for 6 week f/u. She states she has felt much improved on the fludrocortisone - currently taking it once daily, initially was taking twice daily when she was started on this at discharge from the hospital. She states they thought these low Bps were either secondary to Parkinson's itself or the increase in Sinemet. She states that she has been checking her blood pressures at home, and they're 90s-130s/50-60s but it jumps around some. She will be seeing Zhane Sylvester PA-C next week. States she still feels the anxiety is better at this time. Pt does report a lot of abdominal bloating at the end of the day, and she had never had that previously before she had Parkinson's. Has gotten worse in the past 6 months. States this does not seem to correlate with what she eats. Has been taking gas-x. She states that she has a longstanding hx of constipation, but doesn't really have that issue anymore. Has been attempting to eat much smaller portions throughout the day and that seems to help. REVIEW OF SYSTEMS See HPI All other systems negative. PAST MEDICAL HISTORY Diagnosis Date Diverticulosis of colon (without mention of hemorrhage) Essential hypertension, benign 04/04/2007 Mental disorder Migraine without aura 04/04/2007 Parkinson disease (HCC) Unspecified hypothyroidism 04/04/2007 PAST SURGICAL HISTORY Procedure Laterality Date DELIVERY ONLY , low cervical x2 COLONOSCOPY FLX DX W/COLLJ SPEC WHEN PFRMD 1994 Colonoscopy COLONOSCOPY FLX DX W/COLLJ SPEC WHEN PFRMD 04/07/2012 Colonoscopy COLONOSCOPY FLX DX W/COLLJ SPEC WHEN PFRMD 06/17/2019 Colonoscopy DILATION & CURETTAGE DX&/THER NONOBSTETRIC 09/1982 Dilation & curettage PAST SURGICAL HISTORY OF 02/1996 EMB TONSILLECTOMY & ADENOIDECTOMY <AGE 12 T/A (under age 12 years) ALLERGIES Sulfa (Sulfonamide Antibiotics) MEDICATIONS fludrocortisone (FLORINEF) 0.1 mg tablet Take 1 tablet by mouth once daily. LORazepam (ATIVAN) 0.5 mg Take by mouth. pravastatin (PRAVACHOL) 20 mg tablet TAKE 1 TABLET BY MOUTH EVERYDAY AT BEDTIME levothyroxine (SYNTHROID) 75 mcg tablet Take 1 tablet by mouth once daily. Take on empty stomach. For Thyroid sertraline (ZOLOFT) 100 mg tablet Take 1 tablet by mouth once daily. carbidopa-levodopa CR (SINEMET CR) 50-200 mg per tablet TAKE 1 TABLET BY MOUTH in Morning and before bedtime as instructed. gabapentin (NEURONTIN) 100 mg capsule Take 1 capsule by mouth three times daily for 180 days. Cholecalciferol, Vitamin D3, 50 mcg (2,000 unit) cap Take 2,000 Units by mouth once daily. diclofenac sodium (VOLTAREN) 1 % topical gel APPLY 2 GRAMS TO AFFECTED AREA 4 TIMES A DAY docusate sodium (COLACE ORAL) Take by mouth as needed. THERAPEUTIC MULTIVITAMIN TAB Take by mouth. FAMILY HISTORY Problem Relation Age of Onset Hypertension Mother Arthritis Mother Heart disease Mother Diabetes Father adult onset Emphysema Father Cancer Father lung Asthma Daughter Allergic Rhinitis Daughter Diabetes Paternal Grandmother Ischemic Heart Disease Maternal Grandfather Psychiatry Maternal Grandmother Social History Tobacco Use Smoking status: Never Smokeless tobacco: Never Tobacco comments: Father smoked in childhood home. 2 spouses were smokers. Vaping Use Vaping Use: Never used Substance Use Topics Alcohol use: No Drug use: No PHYSICAL EXAM BP 140/70 (BP Site: Left Arm, BP Position: Sitting, BP Cuff Size: Regular Adult) Pulse 68 Temp 36.4 C (97.5 F) Resp 12 Ht 163.8 cm (5' 4.5 ) Wt 61.7 kg (136 lb) SpO2 92% BMI 22.98 kg/m General Appearance: well appearing, in no acute distress, alert Psych: mood and affect broad and appropriate Skin: Skin color, texture, turgor normal for age Lungs: Lungs clear to auscultation. No wheezing, rhonchi, rales. Heart: RRR without murmur, gallop, or rubs. Abdomen: Abdomen soft, no tenderness to palpation. Bowel sounds normal. No masses, organomegaly No rigidity, guarding, or other evidence of acute abdomen demonstrated on exam Extremities: No gross deformities, significant edema, skin discoloration, clubbing or cyanosis. Neurological: Gait normal. No focal neurological deficits. Sensation grossly intact. ASSESSMENT/PLAN: 1. Hypotension, unspecified hypotension type - ICD9: 458.9, ICD10: I95.9 (primary diagnosis) No longer having these episodes- much improved on the fludrocortisone. F/u as planned w/ neuroZhane PA-C, next week 2. Abdominal bloating - ICD9: 787.3, ICD10: R14.0 Likely related to Parkinson's versus medications. Will discuss more in depth with neuro. We can always refer to GI at some point 3. Need for influenza vaccination - ICD9: V04.81, ICD10: Z23 - INFLUENZA VACCINE, PRSV FREE, AGE 65+ YR, HIGH DOSE, QUADRIVALENT (FLUZONE HIGH-DOSE) F/u 3 months routine visit Prescription instructions reviewed with patient as applicable. Potential red flag symptoms discussed with the patient. Reviewed appropriate action plan to take if red flag symptoms occur. Patient agreeable to treatment plan. Silvano Vance PA-C documented in this encounter [facility] 07-08-2023 History of Present illness Narrative Images from the original note were not included. Raman Greenwood MD Interventional Cardiology [facility] [address], [place] [address] [phone] Chief Complaint Patient presents with: Established Patient Follow-Up HISTORY OF PRESENT ILLNESS: Ms. Oliver is a 78 year old female seen in office for follow-up prior history of sinus tachycardia diagnosed with Parkinson with orthostasis required Florinef Denies any palpitation No angina or cardiac symptoms Cardiac Risk Factors age (male over 45, female over 55), hyperlipidemia, family history of CAD PAST MEDICAL HISTORY Diagnosis Date Diverticulosis of colon (without mention of hemorrhage) Essential hypertension, benign 04/04/2007 Mental disorder Migraine without aura 04/04/2007 Parkinson disease (HCC) Unspecified hypothyroidism 04/04/2007 PAST SURGICAL HISTORY Procedure Laterality Date DELIVERY ONLY , low cervical x2 COLONOSCOPY FLX DX W/COLLJ SPEC WHEN PFRMD 1994 Colonoscopy COLONOSCOPY FLX DX W/COLLJ SPEC WHEN PFRMD 04/07/2012 Colonoscopy COLONOSCOPY FLX DX W/COLLJ SPEC WHEN PFRMD 06/17/2019 Colonoscopy DILATION & CURETTAGE DX&/THER NONOBSTETRIC 09/1982 Dilation & curettage PAST SURGICAL HISTORY OF 02/1996 EMB TONSILLECTOMY & ADENOIDECTOMY <AGE 12 T/A (under age 12 years) FAMILY HISTORY Problem Relation Age of Onset Hypertension Mother Arthritis Mother Heart disease Mother Diabetes Father adult onset Emphysema Father Cancer Father lung Asthma Daughter Allergic Rhinitis Daughter Diabetes Paternal Grandmother Ischemic Heart Disease Maternal Grandfather Psychiatry Maternal Grandmother Social History Tobacco Use Smoking status: Never Smokeless tobacco: Never Tobacco comments: Father smoked in childhood home. 2 spouses were smokers. Vaping Use Vaping Use: Never used Substance Use Topics Alcohol use: No Drug use: No ALLERGIES Allergen Reactions Sulfa (Sulfonamide * Hives Medications: Current Outpatient Medications Medication Sig Dispense Refill fludrocortisone (FLORINEF) 0.1 mg tablet Take 1 tablet by mouth once daily. 30 tablet 2 LORazepam (ATIVAN) 0.5 mg Take by mouth. pravastatin (PRAVACHOL) 20 mg tablet TAKE 1 TABLET BY MOUTH EVERYDAY AT BEDTIME 90 tablet 3 levothyroxine (SYNTHROID) 75 mcg tablet Take 1 tablet by mouth once daily. Take on empty stomach. For Thyroid 90 tablet 3 sertraline (ZOLOFT) 100 mg tablet Take 1 tablet by mouth once daily. 90 tablet 3 carbidopa-levodopa CR (SINEMET CR) 50-200 mg per tablet TAKE 1 TABLET BY MOUTH in Morning and before bedtime as instructed. 180 tablet 3 gabapentin (NEURONTIN) 100 mg capsule Take 1 capsule by mouth three times daily for 180 days. 270 capsule 1 Cholecalciferol, Vitamin D3, 50 mcg (2,000 unit) cap Take 2,000 Units by mouth once daily. diclofenac sodium (VOLTAREN) 1 % topical gel APPLY 2 GRAMS TO AFFECTED AREA 4 TIMES A DAY 200 g 2 docusate sodium (COLACE ORAL) Take by mouth as needed. THERAPEUTIC MULTIVITAMIN TAB Take by mouth. 0 No current facility-administered medications for this visit. Review of Systems Constitutional: Negative for chills, diaphoresis, fever, malaise/fatigue and weight loss. HENT: Negative for congestion, ear discharge, ear pain, hearing loss, nosebleeds, sinus pain, sore throat and tinnitus. Eyes: Negative for blurred vision, double vision, photophobia, pain, discharge and redness. Respiratory: Negative for cough, hemoptysis, sputum production, shortness of breath, wheezing and stridor. Cardiovascular: Negative for chest pain, palpitations, orthopnea, claudication, leg swelling and PND. Gastrointestinal: Negative for abdominal pain, blood in stool, constipation, diarrhea, heartburn, melena, nausea and vomiting. Genitourinary: Negative for dysuria, flank pain, frequency, hematuria and urgency. Musculoskeletal: Negative for back pain, falls, joint pain, myalgias and neck pain. Skin: Negative for itching and rash. Neurological: Negative for dizziness, tingling, tremors, sensory change, speech change, focal weakness, seizures, loss of consciousness, weakness and headaches. Endo/Heme/Allergies: Negative for environmental allergies and polydipsia. Does not bruise/bleed easily. Psychiatric/Behavioral: Negative for depression, hallucinations, memory loss, substance abuse and suicidal ideas. The patient is not nervous/anxious and does not have insomnia. Physical Examination: Vitals:BP 116/63 Pulse 75 Wt 137 lb (62.1kg) SpO2 97% BP w/Orthostatic Vitals Date and Time Orthostatic BP Orthostatic Pulse BP Pulse BP Position BP Site BP Cuff Size 07/08/23 1104 -- -- 116/63 75 Sitting Right Arm Regular Adult Last 2 Encounter Wt Readings: Date: Wt: 07/08/2023 62.1 kg (137 lb) 06/18/2023 63 kg (138 lb 12.8 oz) Physical Exam Constitutional: General: She is not in acute distress. Appearance: She is not diaphoretic. HENT: Head: Normocephalic and atraumatic. Right Ear: External ear normal. Left Ear: External ear normal. Nose: Nose normal. Mouth/Throat: Pharynx: Oropharynx is clear. Eyes: General: Right eye: No discharge. Left eye: No discharge. Conjunctiva/sclera: Conjunctivae normal. Pupils: Pupils are equal, round, and reactive to light. Cardiovascular: Rate and Rhythm: Normal rate and regular rhythm. Heart sounds: Normal heart sounds, S1 normal and S2 normal. No murmur heard. No friction rub. No gallop. No S3 or S4 sounds. Pulmonary: Effort: Pulmonary effort is normal. No respiratory distress. Breath sounds: Normal breath sounds. No wheezing or rales. Chest: Chest wall: No tenderness. Musculoskeletal: General: Normal range of motion. Cervical back: Normal range of motion and neck supple. Skin: General: Skin is warm and dry. Neurological: Mental Status: She is alert and oriented to person, place, and time. Psychiatric: Mood and Affect: Mood normal. Thought Content: Thought content normal. Pertinent Labs: CBC: Hemoglobin (g/dL) Date Value 05/15/2023 11.5 05/26/2019 11.6 Hematocrit (%) Date Value 05/15/2023 35.3 05/26/2019 34.3 WBC (k/uL) Date Value 05/15/2023 4.46 05/26/2019 4.94 Platelet Count (k/uL) Date Value 05/15/2023 215 05/26/2019 246 BMP: Glucose (mg/dL) Date Value 05/15/2023 87 12/15/2020 86 Potassium (mmol/L) Date Value 05/15/2023 4.5 12/15/2020 4.7 Sodium (mmol/L) Date Value 05/15/2023 137 12/15/2020 139 Chloride (mmol/L) Date Value 05/15/2023 103 12/15/2020 103 CO2 (mmol/L) Date Value 05/15/2023 24 12/15/2020 27 Creatinine (mg/dL) Date Value 05/15/2023 0.76 12/15/2020 0.69 BUN (mg/dL) Date Value 05/15/2023 18 12/15/2020 27 Anion Gap (mmol/L) Date Value 05/15/2023 10 12/15/2020 9 Calcium (mg/dL) Date Value 12/15/2020 9.7 Calcium, Total (mg/dL) Date Value 05/15/2023 9.5 INR: Lipid Profile: Cholesterol, Total Date Value Ref Range Status 03/08/2021 193 <200 mg/dL Final Comment: <200 mg/dL, Desirable 200-239 mg/dL, Borderline high >239 mg/dL, High HDL Cholesterol Date Value Ref Range Status 03/08/2021 71 >39 mg/dL Final Comment: 40-59 mg/dL, Acceptable >59 mg/dL, High: Negative risk factor for coronary heart disease <40 mg/dL, Low: Positive risk factor for coronary heart disease LDL Cholesterol Date Value Ref Range Status 03/08/2021 108 (H) <100 mg/dL Final Comment: <100 mg/dL, Optimal 100-129 mg/dL, Near optimal/above optimal 130-159 mg/dL, Borderline high 160-189 mg/dL, High >189 mg/dL, Very high Secondary prevention optimal LDL Cholesterol levels are recommended to be < 70 mg/dL Triglyceride Date Value Ref Range Status 03/08/2021 71 <150 mg/dL Final Comment: <150 mg/dL, Normal 150-199 mg/dL, Borderline high 200-499 mg/dL, High >499 mg/dL, Very high Hemoglobin A1C: No results found for: HGBA1C TSH: No results found for: TSHREFL Prior Cardiac Testing none Assessment and Plan: 78 years old female patient with prior history of sinus tachycardia ASSESSMENT/PLAN: 1. Tachycardia - ICD9: 785.0, ICD10: R00.0 (primary diagnosis) Heart rate within normal range No indication for treatment The jonny was discontinued because of orthostasis 2. Mixed hyperlipidemia - ICD9: 272.2, ICD10: E78.2 - Controlled - Continue current medications - Counseled on healthy diet and regular exercise Raman Greenwood MD Follow up planning: Follow up with PCP Electronically signed by Raman Greenwood MD on July 08, 2023, 12:27 PM The above note was partially created using a dictation recognition software. A reasonable attempt has been made to correct any errors. documented in this encounter [facility] 07-08-2023 Miscellaneous Notes LYNDON 01/18/23 NOV 07/30/23 Silvano Myrick MA Patient has been identified by name and date of : Yes Last office visit in this department: Visit date not found RX INSTRUCTIONS: Patient aware RX will be sent to pharmacy. No need to notify patient. Patient phones requesting refills as follows: Requested Prescriptions Pending Prescriptions Disp Refills fludrocortisone (FLORINEF) 0.1 mg tablet Sig: Take 1 tablet by mouth once daily. Please review and advise. Beulah Ochoa documented in this encounter [facility] 07-04-2023 Miscellaneous Notes Procedure(s) being scheduled: 1.Are you diabetic No 2. Are you on any blood thinners? No If yes, does it require a hold? No If yes, was approval letter sent? No 3. Are you taking any aspirin? No 4. Are you currently taking any antibiotics? No If yes, is it prophylactic or for treatment of an infection? NA 5. Do you have any allergies to latex? No 6. Do you have any allergies to seafood or shellfish? No 7. Do you have any allergies to x-ray dye? No 8. Did the physician instruct you to take any medication prior to your procedure? No 9. Does this procedure require a lyft driver? Yes If yes, has patient been notified that a lyft driver is needed and must be present at check in? NA 10. Were the pre-procedure instructions explained and provided to the patient? Yes 11. Do you have a pacemaker? No 12. Do you have an internal stimulator of any kind? No If yes, please bring the remote with you to your procedure visit. 13. Have you received the COVID-19 Vaccine? Yes. If yes, date(s) received: 07/2022 (Patient should not receive a procedure including steroids 14 days prior to their first dose of the COVID vaccine. They should not receive any procedure containing steroids in the time frame between their 1st and 2nd doses of the COVID vaccine. They should not receive a procedure containing steroids 14 days after their 2nd dose of the COVID vaccine.) Rere Kumar documented in this encounter [facility] 07-04-2023 History of Present illness Narrative Review of Systems Constitutional: Positive for activity change. Negative for chills, fever and unexpected weight change. Gastrointestinal: Negative for bowel retention or incontinence Genitourinary: Negative for difficulty urinating. Negative for bladder retention or incontinence Musculoskeletal: Positive for gait problem, neck pain and neck stiffness. Negative for arthralgias, back pain, joint swelling and myalgias. Neurological: Negative for weakness, numbness and headaches. Psychiatric/Behavioral: Negative for dysphoric mood, sleep disturbance and suicidal ideas. The patient is not nervous/anxious. Images from the original note were not included. [facility] Today's Date: 07/04/2023 Last Visit: N/A Name: Lou Oliver : 1945 Purpose: New Patient Consultation Chief complaint: neck pain Pain Description: Timing: intermittant Character: aching and burning Primary Location: axial neck and upper traps Radiation: none Exacerbating factors: walking and lying flat Relieving factors: ice and heat, C-collar (uses sparingly) Interferes with: physical activity The patient denies difficulty with bowel or bladder control, unintentional weight loss, and fevers, chills, or night sweats. Notable Events During Course of Treatment: 07/01/2023 - Initial HPI: Referred by Marvel Rizzo MD, for evaluation & management of neck pain Duration: 10 years Sudden onset? no, Trauma? no Prior Treatments: Medications (See below), Modalities (eg. Heat, Ice), Physical Therapy , Home Exercise Program , and Activity Modification PT - 12 visits (04/09/2023 - 06/11/2023) Worked for years at a [employer], reports she frequently hunched in her job Seen previously (last on ) by an Anesthesia Pain Physician. She had trigger point injections multiple times, without sustained relief. This is her first evaluation by a PM&R Pain Physician. Takes Tylenol OTC, minimal relief Has Parkinson's INTAKE PAIN ASSESSMENT 06/30/2023 07/04/2023 Are you having pain associated with your visit today? Yes, Provider notified Yes, Provider notified Pain Scales - Verbal (Numeric Rating or Visual Analog Scale) Pain Level 4 4 Pain Location Neck - Description Aching;Burning;Cramping;Dull;Spasm ;Stabbing/Not Incision;Stiffness;Tightness Aching;Burning Duration Amount of Time - - Duration Units - Years Frequency Intermittent Continuous Intervention/Comfort measure Reposition;Relaxation;Cold;Exercis e;Heat;Massage;Pillow support;Positioning Medication;Reposition;Relaxation Comments I am not sure how to fill out the duration section. I am aware of neck pain most of the time. - Pain Assessment - - Medications: CURRENT Pain Medications: Gabapentin 100mg TID - for foot tingling/numbness, helps Voltaren Topical - no relief Tylenol OTC - no relief THC cream - helps a little bit Pain Medications Taken TO DATE (for the chief complaint(s)): Membrane Stabilizers: Neurontin (Gabapentin) NSAIDS: Naprosyn (Naproxen) and Mobic (Meloxicam) Opioids: none Muscle Relaxants: Zanaflex (Tizanidine) Topicals: Voltaren Gel Other Prescription or OTC Pain Medications: Tylenol (Acetaminophen) Anti-depressants: Zoloft and Trazodone Non-Pain Meds of Note: Sinemet, Florinef, Ativan, Allergies: ALLERGIES Allergen Reactions Sulfa (Sulfonamide * Hives Compliance: PDMP website checked and validated. All prescriptions have been APPROPRIATELY filled. No suspicious activity was identified. on 07/04/2023 by Jak Diaz MD Lorazepam 0.5mg, #15 (05/15/2023) Recent Drug screens: AG SPINE COMBINATION 05/12/2020 06/22/2021 07/04/2023 Questionnaire GREENLIGHT - GREENLIGHT Completed Date 05/12/2020 - 07/04/2023 Questionnaire Opiod Risk Tool Opiod Risk Tool Opiod Risk Tool Completed Date 05/12/2020 06/22/2021 07/04/2023 Risk Assessment: DIANNE-7: DIANNE - 7 SCORES 03/18/2023 05/12/2023 07/04/2023 DIANNE-7 Score 4 12 8 (0-4) minimal anxiety, (5-9) mild anxiety, (10-14) moderate anxiety, (15-21) severe anxiety PHQ-9: PHQ-9 03/18/2023 05/12/2023 07/04/2023 Score 9 16 8 (0-4) minimal depression, (5-9) mild depression, (10-14) moderate depression, (15-19) moderately severe depression, (20-27) severe depression Opioid Risk Tool: Family History of Substance Abuse: 0 - No Personal History of Substance Abuse: 0 - No Age between 16-45: 0 - No History of Pre-Adolescence Sexual Abuse: 0 - No Psychological Disease: Yes Depression: 1 - Yes Risk Total: 1 Total Score Risk Category: Low Risk 0-3 (0-3, low risk or no risk; 4-7, moderate risk, 8+, high risk) Diagnostic Studies: Relevant Imaging: Reviewed Personally on today's date, noted above MRI Spine Report MRI CERVICAL SPINE WO IVCON Exam End: 05/10/2020 8:23 AM (Final result) Narrative: * * *Final Report* * * DATE OF EXAM: May 10 2020 8:15AM LEON [id number] - MRI CERVICAL SPINE WO IVCON / PROCEDURE REASON: multiple diagnoses * * * * Physician Interpretation * * * * EXAMINATION: MRI CERVICAL SPINE WO IVCON CLINICAL HISTORY: Spinal stenosis of cervical region - Cervicalgia - Spinal stenosis, spondylolisthesis, torticollis, radiculopathy, trauma - C-spine stenosis, Neck pain, chronic, mechanical TECHNIQUE: Routine cervical spine MR protocol without gadolinium. MQ: [id number] COMPARISON: Cervical spine radiographs 04/06/2020 RESULT: Counting reference: Craniocervical junction. Anatomic Variants: None. Alignment: Straightening of the cervical lordosis with trace grade 1 degenerative spondylolisthesis at C4-5, and minimal retrolisthesis at C5-6. Moderate intervertebral disc space narrowing at C4-5. Craniocervical junction: Craniocervical junction is normal. Cord: Minimal cord abutment at C4-5 due to spondylotic changes, further detailed below. No intramedullary signal abnormality. Bone marrow signal/fracture: Patchy likely reactive marrow edema at the left C3-4 facet joint. No evidence of confluent abnormal marrow replacement or an acute fracture. Small T1/T2 hyperintense lesion suggesting small intraosseous hemangioma within the left T5 pedicle and articular facets. Cervical soft tissues: The paraspinal soft tissues are within normal limits. C2-C3: Shallow disc bulging partially effacing the ventral thecal sac without cord contact. Patent foramina. C3-C4: Small central disc protrusion partially effacing the ventral thecal sac without cord impact. Mild bilateral foraminal stenosis due to uncovertebral and facet hypertrophy. C4-C5: Mild canal stenosis due to shallow disc/osteophyte complex and dorsal ligamentous hypertrophy. No significant cord impact. Patent foramina. C5-C6: Minimal retrolisthesis and disc/osteophyte complex effacing the ventral thecal sac without cord impact. Patent foramina. C6-C7: Canal and foramina are patent. C7-T1: Canal and foramina are patent. No significant canal or foraminal stenosis in the imaged upper thoracic spine to the level of T5-6. Impression: IMPRESSION: Mild cervical spondylosis without high-grade canal or foraminal stenosis. Anatomic Variant: None. Assume 7 cervical vertebrae with counting from the craniocervical junction. Tenant Selector: [facility] Transcribe Date/Time: May 10 2020 8:36A Dictated by : MARIS REMY MD This examination was interpreted and the report reviewed and electronically signed by: MARIS REMY MD on May 10 2020 8:46AM EST X-ray Thoracic and Cervical 03/2023 RESULTS: Counting reference: Craniocervical junction.. Straightening of normal cervical lordosis. Mild amount narrowing C4/C5 moderate to marked narrowing C5/C6 disc spaces. Osteophytes anteriorly at C5-C6 and uncovertebral osteophytes at C5-C6. Less than 2 mm anterior subluxation C4 and C5. Facet degenerative changes throughout the cervical spine with hypertrophic changes at C2-C3 5. The left neural foraminal obliques are over rotated with neuroforaminal narrowing at C3/C4 and C4/C5. Neuroforaminal narrowing at C3/C4 and C4/C5 on the right. Thoracic spine counting reference: The first rib-bearing vertebral bodies considered T1. There are 12 rib-bearing vertebral bodies. Proximally 73 degree kyphosis centered at T6/T7. Vertebral bodies and pedicles are intact. Degenerative disc disease from T1/T2 13th T7/T8. 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 Electrodiagnostic Study (EMG): None Recent Labs: Creatinine Date Value Ref Range Status 05/15/2023 0.76 0.58 - 0.96 mg/dL Final No results found for: GFR No results found for: PCGLUCOSE Pain Procedures: DATE PROCEDURE IMPROVEMENT 08/17/2021 TPI 50% relief x 6 weeks 06/2021 ... Current Medications, Past Medical History, Past Surgical History, Family History, Social History and Review of Systems: On today's date, noted above, I have confirmed and edited as necessary, the PFSH and ROS obtained by others. Physical Exam: 07/04/23 1115 Pulse: 71 Resp: 16 SpO2: 96% Constitutional:normal weight Eyes: Conjunctiva clear. No discharge from eyes Cardiovascular: Appears well perfused Lymphatic: No visible regional lymphadenopathy Skin: No visible rashes or ecchymosis Psychiatric: Full affect, Alert, Pleasant Neuro-Upper: Sensation: Grossly intact to light touch in both upper limbs (C5-T1) dermatomes Strength: Deltoid (C5): 5 left, 5 Right Biceps (C6): 5 left, 5 Right Triceps (C7): 5 left, 5 Right Wrist Extensors (C8): 5 left, 5 Right Abduct. Pollicis Brevis (T1): 5 left, 5 Right Muscle Tone: Normal and symmetric throughout, without clonus Reflexes: Increased 3+ and symmetric biceps, triceps, brachioradialis Eisenberg: Negative (Normal) bilaterally Musculoskeletal-Upper: Inspection: Symmetric without atrophy Palpation: Cervical Paraspinal Tenderness: Concordant Greater Occipital Nerves: no tenderness in overlying tissue Paraspinal spasm: Moderate Range of Motion: Flexion/Extension: Decreased 25% With end range pain Lateral Bending: Decreased 50% With end range pain Lateral Rotation: Decreased 50% With end range pain Diagnoses: (M47.812) Cervical spondylosis without myelopathy (primary encounter diagnosis) (M79.18) Myofascial pain Pertinent Past Medical History: Migraine, Lt. Knee pain, Parkinson disease, Neck pain, Intracranial meningioma, HTN, HLD, Tachycardia, Hypothyroidism, Cervical spondylosis, Anxiety, Pes anserinus bursitis of left knee, Neck muscle weakness, Spinal stenosis of cervical region, Impression: 78 year old female presents with complaint(s) of axial neck pain, facet-mediated, myofascial overlay. She has not had sustained relief with trigger point injections. Has completed course of PT without improvement. Plan: Lou Oliver would benefit from the following to reach personal goals for decreasing pain, improving function and work participation, and/or improving quality of life: -Interventional Procedure: Medial branch blocks bilateral C4-5,5-6 under fluoroscopic guidance x 2, RFA if positive x 2 The risks, benefits, alternative treatment options and prognosis of the procedure were discussed and all of the patient's questions/concerns were addressed to the patient s satisfaction. Patient was advised that they will need a lyft driver for after the procedure and that if no lyft driver is available and on site at the time of the procedure, the procedure will be cancelled. For any anticoagulants, the patient was advised on whether to continue or hold for this procedure. The patient expressed understanding and gave verbal consent to proceed. Medication(s): Ibuprofen Gel Caps 400mg BID PRN (prefer smaller pills given issues swallowing, but Mobic contraindicated due to Sulfa allergy) Additional Studies: none Referrals: No additional considerations at present Functional Shinto: No changes-continue current regimen Depending on response to the above plan, consider: RFA -Follow-up: 3 months Attribution: In addition to reviewing the information noted above, some elements copied from my most recent clinical note(s), including the physical exam (completed in entirety today), and the impression and plan sections, have been updated where appropriate. All reflect current medical decision making from today's date. Jak Diaz MD Pain Management [facility] documented in this encounter [facility] 06-18-2023 Miscellaneous Notes Addended by: ZHANE SYLVESTER on: 06/18/2023 02:01 PM Modules accepted: Orders documented in this encounter [facility] 06-18-2023 Instructions Zhane Sylvester PA-C - 06/18/2023 12:50 PM EDT Consult to neuromuscular Compression stockings or abdominal binder (bike shorts) Continue [facility] Increase 330PM dose of sinemet to 1.5 tablets Follow up in two months documented in this encounter [facility] 06-18-2023 History of Present illness Narrative ESTABLISHED PATIENT VISIT Last visit: 05/21/23 ASSESSMENT/PLAN: 1. Parkinson disease (HCC) - ICD9: 332.0, ICD10: G20 (primary diagnosis) Patient with hypotension and 1 episode of syncope secondary to lightheadedness after increase in Sinemet. Patient also has both factors that may be contribute to low blood pressure as well including low fluid intake, poor diet and hypothyroidism. However, recent TSH was normal. Patient also with recent abnormal urine culture, but due to mixed microbiota, unlikely to be infection. Patient without any signs or symptoms of infection. Patient does have appointment with cardiology next month, encouraged to keep this appointment for further evaluation of her episode of syncope. At this time, will decrease dosage of Sinemet 25/100 mg to 1 tablet instead of 1.5 tablet 4 times a day. We will still continue CR Sinemet 50/200mg twice daily as previously noted. Recent brain MRI did not show any signs of stroke or etiology of patient's symptoms. New regimen noted below. Patient does note significant nausea after medication which last for an hour or so after taking it. May consider adding carbidopa with her medication. Sinemet 25/100mg dose: -Take 1 tabs at 730AM (after eating something). -Take 1 tabs at 1130AM. -Take 1 tabs at 330PM (after lunch). -Take 1 tabs at 730 PM 2. Sinemet CR 50/200mg dose: -Take 1 tablet with your 730AM dose of short acting Sinemet. -Take 1 tablet at 10-11 PM. Physical exam is reassuring today with normal tone and gait, but significantly positive retropulsion. Patient encouraged to increase water intake as well as increase food intake throughout the day. Encouraged to continue with exercise and physical therapy for balance. Patient agrees and understands. Patient lives alone but has daily visitors including her neighbors and family. Had 1 fall secondary to syncope, but no other falls or concerns. Family not concerned with patient living alone. Patient continues to drive locally when she feels her medicine is working, no accidents at this time. Patient or family not expressing any concern with her driving. 2. Intracranial meningioma (HCC) - ICD9: 225.2, ICD10: D32.0 Stable, following with brain tumor. Recent MRI showed slight decrease in size of meningioma. Encourage continued follow-up with brain tumor. Patient and family agreeable to treatment plan of care at this time, all questions were answered. Due to medication adjustment and patient's lightheadedness, patient to follow-up in 8 weeks or sooner should any symptoms change or worsen. Zhane Sylvester PA-C CHIEF COMPLAINT: follow up HISTORY OF PRESENT ILLNESS: Lou Oliver is a 78 year old female, There were no vitals taken for this visit. with a PMH significant for migraine, parkinson's disease, intracranial meningioma, hypothyroidism, anxiety. Had hypotensive episode and was sent to the ER. Saw PCP 06/11/23 and Hypotension suspected to be related to mild dehydration, as well as Parkinson's medications. Orthostatic blood pressures were positive, so she was treated with 1 L of normal saline. Labs were obtained-normal WBC at 5.6. Hgb 10.7 HCT 31.2 creatinine 1.10 GFR 51 Gluc 113 CA 8.4 troponin within normal limits. CXR was obtained which revealed minimal atelectasis in the left midlung. EKG showed normal sinus rhythm, without any evidence of acute HI, ischemia, or abnormal rhythm. Patient was started on Florinef, as advised by Dr. Connolly. Patient was advised to follow-up with Dr. Connolly for for further evaluation and adjustments of Parkinson's medications. Patient states that she has been doing well since adding Florinef to her regimen. States that she no longer has positional lightheadedness when she stands, no other falls and no presyncope events. Also notes that she increased her water intake daily, her target is 60 ounces a day. Does not wear compression regularly. Does note some achiness after starting Florinef, but otherwise no other symptoms. Also notes that she has arthritis in her neck and attributes some of the achiness to this. Was having physical therapy twice a week on top of her four exercise classes for Parkinson's. States that she stopped doing the physical therapy and is only doing at home exercises because it was too much. Patient does note that her balance is poor, was recently given a walker by a family member but has yet to use it. She states that during the off periods of her medication she tends to ping-pong down the hallway without actually falling. Patient also reports some difficulty with swallowing water recently. Notices been a chronic issue for years but over the last few months she has noted increased choking on water. Is able to cough it up, does not occur with any other beverages or foods. Also notes that she cannot burp anymore. Does have shortness of breath during her off periods, but not at baseline on her medications. Also notes generalized weakness and cannot lift much day today. Notes that her housework is difficult. Patient also notes that she feels her symptoms significantly worsen around 530 until bedtime. Does take her 3:30 PM dose of Sinemet, but states that it feels as if it is wearing off faster than the others. Notes that her tremor is so significant in her extremities that it would make it impossible for her to drive if she needed to. However, taking the extended release dose at 10 PM at night causes her to sleep significantly better than she was previously. No other new symptoms, patient otherwise feels she is improved since last appointment. REVIEW OF SYSTEMS GENERAL:No weight loss, malaise or fevers. HEENT:Negative for frequent or significant headaches, No changes in hearing or vision, no nose bleeds or other nasal problems NECK:Negative for lumps, goiter, pain and significant neck swelling RESPIRATORY: Negative for cough, wheezing or shortness of breath. CARDIOVASCULAR: Negative for chest pain, leg swelling or palpitations. GASTROINTESTINAL: Negative for abdominal discomfort, blood in stools or black stools or change in bowel habits GENITOURINARY: No history of dysuria, frequency or incontinence MUSCULOSKELETAL: Negative for joint pain or swelling, back pain or muscle pain. NEUROLOGIC:Negative for focal numbness or weakness, headaches and dizziness or syncope, vision changes, speech/languag changes - EXCEPT that as per HPI above. SKIN:Negative for lesions, rash, and itching. PSYCHIATRIC: Negative for sleep disturbance, mood disorder and recent psychosocial stressors. HEMATOLOGIC/LYMPHATIC/IMMUNOLOGIC: Negative for prolonged bleeding, bruising easily or swollen nodes. ENDOCRINE: Negative for cold or heat intolerance, polyuria, polydipsia and goiter. The remainder of the ROS was reviewed and is negative. LAB/IMAGING: Those performed since patient's last visit have been reviewed. MRI brain W/WO 05/02/23 IMPRESSION: Slight interval decrease in size of presumed meningioma overlying the left inferior frontal gyrus and orbitofrontal gyri compared to 08/07/2022. Similar degree of vasogenic edema within the adjacent parenchyma. MEDICATIONS: LORazepam (ATIVAN) 0.5 mg Take by mouth. fludrocortisone (FLORINEF) 0.1 mg tablet Take 1 tablet by mouth once daily. pravastatin (PRAVACHOL) 20 mg tablet TAKE 1 TABLET BY MOUTH EVERYDAY AT BEDTIME levothyroxine (SYNTHROID) 75 mcg tablet Take 1 tablet by mouth once daily. Take on empty stomach. For Thyroid sertraline (ZOLOFT) 100 mg tablet Take 1 tablet by mouth once daily. carbidopa-levodopa (SINEMET) 25-100 mg per tablet Take 1.5 tabs QID as instructed. (Patient taking differently: 1 tablet. Take 1 tab QID as instructed.) carbidopa-levodopa CR (SINEMET CR) 50-200 mg per tablet TAKE 1 TABLET BY MOUTH in Morning and before bedtime as instructed. gabapentin (NEURONTIN) 100 mg capsule Take 1 capsule by mouth three times daily for 180 days. Cholecalciferol, Vitamin D3, 50 mcg (2,000 unit) cap Take 2,000 Units by mouth once daily. diclofenac sodium (VOLTAREN) 1 % topical gel APPLY 2 GRAMS TO AFFECTED AREA 4 TIMES A DAY docusate sodium (COLACE ORAL) Take by mouth as needed. THERAPEUTIC MULTIVITAMIN TAB Take by mouth. (Patient not taking: Reported on 06/18/2023) HISTORIES PAST MEDICAL HISTORY Diagnosis Date Diverticulosis of colon (without mention of hemorrhage) Essential hypertension, benign 04/04/2007 Mental disorder Migraine without aura 04/04/2007 Parkinson disease (HCC) Unspecified hypothyroidism 04/04/2007 FAMILY HISTORY Problem Relation Age of Onset Hypertension Mother Arthritis Mother Heart disease Mother Diabetes Father adult onset Emphysema Father Cancer Father lung Asthma Daughter Allergic Rhinitis Daughter Diabetes Paternal Grandmother Ischemic Heart Disease Maternal Grandfather Psychiatry Maternal Grandmother SOCIAL HISTORY Social History Tobacco Use Smoking status: Never Smokeless tobacco: Never Tobacco comments: Father smoked in childhood home. 2 spouses were smokers. Vaping Use Vaping Use: Never used Substance Use Topics Alcohol use: No Drug use: No PHYSICAL EXAMINATION BP 118/60 Pulse 69 Resp 16 Wt 63 kg (138 lb 12.8 oz) SpO2 98% BMI 23.46 kg/m GENERAL EXAM: General appearance: NAD, pleasant. HEENT: NC/AT, nasal congestion absent, no oral lesions, membranes moist. NECK: No masses, supple. Lungs: Breathing comfortably Extr: Moves all extremities without difficulty Skin: Cool to touch. No rash. NEUROLOGICAL EXAM: General: Awake, alert, oriented x3 (person,place,time), speech fluent, no dysarthria; comprehension, naming, repetition intact. Short and correction memory intact. CN: PERRL, EOMI and without nystagmus, VFF to confrontation, facial sensation and strength are normal and symmetric, hearing is intact to finger rub bilaterally, palate and tongue movements are intact and symmetric. SCM and trapezius strength normal. Voice is quiet. Motor: Normal tone, bulk and strength (5/5) bilaterally (throughout extremities x4). Reflexes: 2/4 and symmetric, plantar stimulation is flexor. Coordination: FNF intact. No tremors. FALLON slightly slowed on the left. Sensation: LT, PP, vibration, temperature intact throughout. No evidence of neglect. Gait: Narrow based and stable with normal stride and arm swing. Romberg positive today Assessment and Plan: ASSESSMENT/PLAN: 1. Parkinson's disease (HCC) - ICD9: 332.0, ICD10: G20 (primary diagnosis) 2. Orthostatic hypotension - ICD9: 458.0, ICD10: I95.1 3. Imbalance - ICD9: 781.2, ICD10: R26.89 Patient with episode of severe hypotension on 06-11-2023, likely combination of Parkinson's, Sinemet, dehydration. Patient was given IV hydration and discharged. She has since followed up with primary care, started on Florinef 0.1 mg a day. Patient notes significant improvement after starting this medication, states that she no longer has positional lightheadedness. Notes that she also increased her water intake as well with a goal of 60 ounces a day. Patient notes some generalized achiness after starting the medication, but no other side effects. Blood pressure today is 118/60 and heart rate is 69. Patient tolerating this well, she has not had any further instances of hypotension, will continue at this dosage. Patient does have Parkinson's and is on Sinemet, both of which can cause hypotension, will refer to neuromuscular to rule out any other additional work-up versus treatment plan for her orthostatic intolerance. Regarding medications. Patient notes that she likes her current regiment, however feels her 330 dose wears off very quickly as she is very active during that time. After discussion with family and patient, will increase 330PM dose to 1.5 tablets. Discussed that this will likely further decrease her blood pressure around that time and to increase water intake and salt intake around that time as well. Patient agrees and understands. New regimen is detailed below. Additionally, patient having issues with gait. She is continuing to exercise with her Parkinson's exercise class IV times a week and does physical therapy exercises at home for her neck. Was recently given a walker from a family member, feel a U step walker may be more beneficial for her, order was placed. Sinemet 25/100mg dose: -Take 1 tabs at 730AM (after eating something). -Take 1 tabs at 1130AM. -Take 1.5 tabs at 330PM (after lunch). -Take 1 tabs at 730 PM 2. Sinemet CR 50/200mg dose: -Take 1 tablet with your 730AM dose of short acting Sinemet. -Take 1 tablet at 10-11 PM. Discussed other conservative measures for orthostatic hypotension including increasing water intake, increasing salt intake, compression and continued exercise. Patient and daughter agree and understand. Patient also endorsing some difficulty with swallowing and inability to belch. This is a longstanding issue that has slightly worsened over the last few months. Will consult to speech to evaluate need for swallow study. Patient and daughter agreeable to treatment plan, all questions were answered. Patient follow-up as planned in July. Zhane Sylvester PA-C I spent a total of 50 minutes on the date of the service which included preparing to see the patient, [id number] patient care, completing clinical documentation, obtaining and/or reviewing separately obtained history, performing a medically appropriate examination, counseling and educating the patient/family/caregiver, and ordering medications, tests, or procedures. This document has been created with the use of voice recognition technology. It may contain inaccuracies: (e.g. misspellings, inaccurate syntax or word sense) that have escaped review. documented in this encounter [facility] 06-05-2023 Miscellaneous Notes Received a message the patient needs to be scheduled for a hospital follow-up appointment. Left the patient a voice message with the scheduled appointment information. Asked the patient to call the office to confirm the appointment date and time. Sent a [employer] message with the scheduled appointment. Mailed an appointment reminder. documented in this encounter [facility] 06-05-2023 History of Present illness Narrative CC: Patient presents with: ED Follow-up: faiting and low BP and labs HPI Lou Oliver is a 78 year old female who presents with daughter, Debra, today for 2-week follow-up on low BPs, as well as follow-up for recent ED visit. Regarding ED follow-up: Facility: [facility] ED Date of visit: 05/31/2023 Reason for visit: Hypotension --called into triage nurse with a blood pressure of 58/32 Hospital course: Hypotension suspected to be related to mild dehydration, as well as Parkinson's medications. Orthostatic blood pressures were positive, so she was treated with 1 L of normal saline. Labs were obtained-normal WBC at 5.6. Hgb 10.7 HCT 31.2 creatinine 1.10 GFR 51 Gluc 113 CA 8.4 troponin within normal limits. CXR was obtained which revealed minimal atelectasis in the left midlung. EKG showed normal sinus rhythm, without any evidence of acute HI, ischemia, or abnormal rhythm. Patient was started on Florinef, as advised by Dr. Connolly. Patient was advised to follow-up with Dr. Connolly for for further evaluation and adjustments of Parkinson's medications. Diagnosis: Acute dehydration, history of Parkinson's disease, orthostatic hypotension Current symptoms: Much improved in regards to both anxiety and lightheadedness. Last visit was with myself on 05/15/2023. At that time patient had been evaluated for both feeling faint as well as increased anxiety. Sertraline was increased at prior visit to 100 mg. Was also Rx'd short-term supply of lorazepam to take very sparingly for episodic panic attacks. Pt reports she has only increased the Zoloft, and is yet to use the lorazepam. Has not needed to because she has not had any more panic attacks since previous visit. Feels the florinef is helping; wonders if they should continue the medication when she runs out. Had seen Zhane Sylvester PA-C a few days after prior visit with me and they decided to decrease her Sinemet (2 tabs less/day) --this happened prior to initiation of Florinef. REVIEW OF SYSTEMS See HPI All other systems negative. PAST MEDICAL HISTORY Diagnosis Date Diverticulosis of colon (without mention of hemorrhage) Essential hypertension, benign 04/04/2007 Mental disorder Migraine without aura 04/04/2007 Parkinson disease (HCC) Unspecified hypothyroidism 04/04/2007 PAST SURGICAL HISTORY Procedure Laterality Date DELIVERY ONLY , low cervical x2 COLONOSCOPY FLX DX W/COLLJ SPEC WHEN PFRMD 1994 Colonoscopy COLONOSCOPY FLX DX W/COLLJ SPEC WHEN PFRMD 04/07/2012 Colonoscopy COLONOSCOPY FLX DX W/COLLJ SPEC WHEN PFRMD 06/17/2019 Colonoscopy DILATION & CURETTAGE DX&/THER NONOBSTETRIC 09/1982 Dilation & curettage PAST SURGICAL HISTORY OF 02/1996 EMB TONSILLECTOMY & ADENOIDECTOMY <AGE 12 T/A (under age 12 years) ALLERGIES Sulfa (Sulfonamide Antibiotics) MEDICATIONS pravastatin (PRAVACHOL) 20 mg tablet TAKE 1 TABLET BY MOUTH EVERYDAY AT BEDTIME levothyroxine (SYNTHROID) 75 mcg tablet Take 1 tablet by mouth once daily. Take on empty stomach. For Thyroid sertraline (ZOLOFT) 100 mg tablet Take 1 tablet by mouth once daily. LORazepam (ATIVAN) 0.5 mg Take 1 tablet by mouth once daily as needed (anxiety, panic) for up to 30 days. carbidopa-levodopa (SINEMET) 25-100 mg per tablet Take 1.5 tabs QID as instructed. carbidopa-levodopa CR (SINEMET CR) 50-200 mg per tablet TAKE 1 TABLET BY MOUTH in Morning and before bedtime as instructed. gabapentin (NEURONTIN) 100 mg capsule Take 1 capsule by mouth three times daily for 180 days. Cholecalciferol, Vitamin D3, 50 mcg (2,000 unit) cap Take 2,000 Units by mouth once daily. diclofenac sodium (VOLTAREN) 1 % topical gel APPLY 2 GRAMS TO AFFECTED AREA 4 TIMES A DAY docusate sodium (COLACE ORAL) Take by mouth as needed. THERAPEUTIC MULTIVITAMIN TAB Take by mouth. FAMILY HISTORY Problem Relation Age of Onset Hypertension Mother Arthritis Mother Heart disease Mother Diabetes Father adult onset Emphysema Father Cancer Father lung Asthma Daughter Allergic Rhinitis Daughter Diabetes Paternal Grandmother Ischemic Heart Disease Maternal Grandfather Psychiatry Maternal Grandmother Social History Tobacco Use Smoking status: Never Smokeless tobacco: Never Tobacco comments: Father smoked in childhood home. 2 spouses were smokers. Vaping Use Vaping Use: Never used Substance Use Topics Alcohol use: No Drug use: No PHYSICAL EXAM BP 106/56 (BP Site: Left Arm, BP Position: Sitting, BP Cuff Size: Large Adult) Pulse (!) 58 Temp 36.2 C (97.2 F) Resp 12 Ht 163.8 cm (5' 4.5 ) Wt 63.5 kg (140 lb) SpO2 100% BMI 23.66 kg/m General Appearance: Very thin stature, in no acute distress, alert Pysch: mood and affect broad and appropriate Skin: Skin color, texture, turgor normal for age; Head: normocephalic, atraumatic Lymph nodes: No cervical lymphadenopathy Lungs: Lungs clear to auscultation. No wheezing, rhonchi, rales. Heart: RRR without murmur, gallop, or rubs. No ectopy Abdomen: Normal abdominal exam Extremities: No gross deformities, significant edema, skin discoloration, clubbing or cyanosis. Neurological: Gait normal. No focal neurological deficits. Sensation grossly intact. ASSESSMENT/PLAN: 1. Hypotension, unspecified hypotension type - ICD9: 458.9, ICD10: I95.9 (primary diagnosis) Suspected to be orthostatic hypotension, multifactorial-possibly related to mild dehydration, in conjunction with effects of Parkinson's medication. Continue current management on Florinef for the time being, will defer long-term plan to neurology. Messaged Dr. Connolly regarding follow-up, and he advised that short-term follow-up with [facility] is okay. Message sent to ancillary staff to schedule follow-up. - FLUDROCORTISONE 0.1 MG TABLET 2. Parkinson disease (HCC) - ICD9: 332.0, ICD10: G20 See above 3. Adjustment disorder with anxiety - ICD9: 309.24, ICD10: F43.22 Much improved on 100 mg sertraline, without need for lorazepam at this time. Continue current management on sertraline. 4. Panic attacks - ICD9: 300.01, ICD10: F41.0 See above Prescription instructions reviewed with patient as applicable. Potential red flag symptoms discussed with the patient. Reviewed appropriate action plan to take if red flag symptoms occur. Patient agreeable to treatment plan. Silvano Vance PA-C documented in this encounter [facility] 06-03-2023 History of Present illness Narrative Episode Visit Count: 11 Therapist That Will Accept/Oversee The Plan Of Care: Steve Chavez, PT, DPT Start of Care Date: 04/09/23 Onset Date: 10/21/22 Plan of Care Certification Date: 05/02/23 Next Certification Due Date: 06/06/23 Patient Identified by Name and Date of : Yes REHABILITATION AND SPORTS THERAPY PHYSICAL THERAPY TREATMENT NOTE ASSESSMENT: Lou Oliver tolerated the session with fatigue and no issues. She demonstrated difficulty with tandem balancing initially, improved with repetitions. The patient will continue to benefit from ongoing skilled physical therapy to progress toward set goals. PLAN FOR NEXT VISIT: manual PRN; balancing progression. Assess what Dr. Vance had to say at patients appt. SUBJECTIVE: Pt. reports following last session she felt good; the next day patient recalls wanting to do yardwork/pulling and then falling outside without injury; she doesn't remember falling, she remembers getting up and using a lamp role to help get off the ground; doesn't know if it was a fall/faint however she ended up on the ground. The next patient went to her PD class and then went out with friends to lunch, she reports a fainting episode and was caught by friends , without injury. She then reported home, called the clinic and went to ER via ambulance. She was then diagnosed with orthostatic hypotension following evaluations. Patient sees Silvano Vance this Saturday. Pain: Pain Pain Level: 4 Pain Location: Neck, Neck - Left Description: Burning Frequency: Intermittent Post Treatment Pain Post Treatment Pain Level: No Change Post Treatment Pain Location: Neck, Neck - Left OBJECTIVE MEASURES WITH LEVEL OF FUNCTION: Improved postural awareness during balance this date. Multiple lateral sway instances during semi-tandem and tandem balancing this date. TREATMENT: Manual Therapy: 1: STM with hands to Phillip upper traps, levator scap & C/S paraspinals: Push to patient tolerance. Increased time spent on L Levator Scap this date. 2: Manual Cervical Traction: Pull to patient tolerance. Skilled Intervention: Manual skills to improve joint mobility, ROM, and decrease pain. Utilized anatomy knowledge of the therapist, and assessment of patient's response to intervention. Neuromuscular Re-Education: 1: Feet together, Airex, EC: 4x30 2: Semi-Tandem Standing on Airex, EC: 3x15 ea. foot forward (6 total) 3: Tandem Standing on Ground, EC: 3x15 ea. foot forward (6 total) Skilled Intervention: Skilled judgment used to assess appropriate program for balance and coordination activity. Ensured patient safety with use of gait belt & supervision. Self-Half-Way Management: 1: Long discussion about current POC along with patients othewr disease process of Parkinsons, Orthostatic Hypotension and recent increase in falls/fainting episodes. Discussion about neck stiffness being the least of therapists worries currently and wanting the patient to get back her health and for PT services to now overwhelm her currently. Patient agrees and is going to discuss with Dr. Vance overall plan with current symptoms. Skilled Intervention: Skilled judgment in the selection of proper modification for activity of daily living/home management based on clinical presentation, deficits, and needs. Reviewed patient specific diagnosis in relation to activities of daily living/home management. Activity progression based on professional judgement. Billing Manual TherapyTreatment Minutes: 15 Neuromuscular Re-Education Treatment Minutes: 10 Self-Care/Home Management Treatment Minutes: 15 Total Treatment Time Minutes (timed/untimed): 40 Session Start Time : 1500 Session Stop Time : 1540 Steve Chavez, PT documented in this encounter [facility] 05-31-2023 Miscellaneous Notes Can we check in on this next week? Pt will need hospital f/u when she is out. Also when appt is made, can we let her know she should bring her cuff to next visit to cross check her readings to ours. Silvano Vance PA-C Will send this note to PCP office as well as Neurologist for their update. Pt agreeable to follow triage recommendations as states below. Sariah Gomez RN Triage Protocol Recommends: Call 911 now. Patient agreeable. Pt at home with other people to assist her. Reason for Disposition [1] Systolic BP < 90 AND [2] dizzy, lightheaded, or weak Answer Assessment - Initial Assessment Questions Patient calling and states her blood pressure about 15 minutes ago was 58/32. Reports dizziness especially when standing. Reports she fainted earlier today at a restaurant. Denies injury. Pt calling from home with friends are with her. 1. BLOOD PRESSURE: 58/32 about 15 minutes ago 2. ONSET: earlier today but has had episodes in past 3. HOW: sitting down, using home BP cuff which was brought into OV in past for accuracy check, pt states it Might be about 5 numbers off 4. HISTORY:yes see history 5. MEDICATIONS: see medication list 6. PULSE RATE:not measured 7. OTHER SYMPTOMS: as above 8. : post menopausal Protocols used: Blood Pressure - [id number] documented in this encounter [facility] 05-28-2023 History of Present illness Narrative Episode Visit Count: 10 Therapist That Will Accept/Oversee The Plan Of Care: Steve Chavez, PT, DPT Start of Care Date: 04/09/23 Onset Date: 10/21/22 Plan of Care Certification Date: 05/02/23 Next Certification Due Date: 06/06/23 Patient Identified by Name and Date of : Yes REHABILITATION AND SPORTS THERAPY PHYSICAL THERAPY TREATMENT NOTE ASSESSMENT: Lou Oliver tolerated the session with expected muscle soreness and no issues. She demonstrated difficulty with tandem balancing michelle. With L foot forward. The patient will continue to benefit from ongoing skilled physical therapy to progress toward set goals. PLAN FOR NEXT VISIT: manual PRN; balance progressions. SUBJECTIVE: Pt. reports visits last week she was told her fainting spells were possibly a combination dehydration/not eating enough/blood pressure issues. Dr. Connolly advised a decrease in Sinemet last week due to blood pressure issues for last couple of weeks. She believes she is improving, and notes the blood pressure has leveled out recently. Last 3-4 days she noticed a burning/sharp sensation in L neck that is on/off in frequency. Pain: Pain Pain Level: 5 Pain Location: Neck, Neck - Left Description: Burning Frequency: Intermittent Post Treatment Pain Post Treatment Pain Level: No Change Post Treatment Pain Location: Neck, Neck - Left Post Treatment Pain Description: Other: See comment Post Treatment Symptoms: Neck is sore following return to standing postural strengthening and holding the head up for balance exercises. OBJECTIVE MEASURES WITH LEVEL OF FUNCTION: BP start of session in sittin/79 (MAP 84). Trigger point in L Levator Scap, referring pain above and below with increased pressure. TREATMENT: Therapeutic Exercise: 1: Standing Shoulder Extension: 2x15 [place] TB 2: Standing Rows: 2x15 [place] TB 3: Standing Horz. ABD Pull-Aparts with PTB: 2x15 ea. Skilled Intervention: Patient was educated in proper exercise technique and purpose for exercises. Skilled judgment was provided in selection of appropriate interventions. Correct performance of therapeutic exercises was facilitated with verbal and tactile cuing. Manual Therapy: 1: STM with hands to Phillip upper traps, levator scap & C/S paraspinals: Push to patient tolerance. Increased time spent on L Levator Scap this date. 2: Manual Cervical Traction: Pull to patient tolerance. 3: Trigger point release to L Levator Scap. Skilled Intervention: Manual skills to improve joint mobility, ROM, and decrease pain. Utilized anatomy knowledge of the therapist, and assessment of patient's response to intervention. Neuromuscular Re-Education: 1: Feet together, Airex, EC: 4x30 2: Tandem Standing on Ground: 4x15 ea. foot forward (8 total) 3: Fwd walking on foam balance beam: 2x20 feet 4: Lateral walking on foam balance beam: 1x20 feet ea. direction. Skilled Intervention: Skilled judgment used to assess appropriate program for balance and coordination activity. Ensured patient safety with use of gait belt & supervision. Billing Therapeutic Exercise Treatment Minutes: 10 Manual TherapyTreatment Minutes: 20 Neuromuscular Re-Education Treatment Minutes: 16 Total Treatment Time Minutes (timed/untimed): 46 Session Start Time : 1115 Session Stop Time : 1201 Steve Chavez PT documented in this encounter [facility] 2023 Miscellaneous Notes Patient has been identified by name and date of : No Patient phones for refill(s): Requested Prescriptions Pending Prescriptions Disp Refills pravastatin (PRAVACHOL) 20 mg tablet [Pharmacy Med Name: PRAVASTATIN SODIUM 20 MG TAB] 90 tablet 3 Sig: TAKE 1 TABLET BY MOUTH EVERYDAY AT BEDTIME Date of last office visit in primary care: 05/15/23 Last 2 Encounter Wt Readings: Date: Wt: 05/21/2023 62.9 kg (138 lb 9.6 oz) 05/15/2023 63 kg (139 lb) Previous labs/tests for medication: Cholesterol: HDL Cholesterol (mg/dL) Date Value 03/08/2021 71 LDL Cholesterol (mg/dL) Date Value 03/08/2021 108 ALT (U/L) Date Value 05/15/2023 5 03/29/2020 15 Non HDL Cholesterol (mg/dL) Date Value 03/08/2021 122 Please advise. Thank you. Leia Mancini LPN documented in this encounter [facility] 05-21-2023 Zhane Flores PA-C - 05/21/2023 3:01 PM EDT Follow with Dr. Greenwood as planned in June Increase water intake to 60 oz Increase food intake throughout the day Continue to stay active Change to medication as noted below: Sinemet 25/100mg dose: -Take 1 tabs at 730AM (after eating something). -Take 1 tabs at 1130AM. -Take 1 tabs at 330PM (after lunch). -Take 1 tabs at 730 PM 2. Sinemet CR 50/200mg dose: -Take 1 tablet with your 730AM dose of short acting Sinemet. -Take 1 tablet at 10-11 PM. Follow up in 8 weeks documented in this encounter [facility] 05-21-2023 History of Present illness Narrative ESTABLISHED PATIENT VISIT Last visit: 03/25/[address] Connolly ASSESSMENT/PLAN: 1. Parkinson disease (HCC) - ICD9: 332.0, ICD10: G20 (primary diagnosis) Patient with increasing on-off effect of Sinemet as noted above. Most of visit was spent focused on this condition and discussing ways to treat. We did discuss meds such as Rytary and Comtan but pt concerned about costs of such and/or increased number of meds needing to be taken. After further discussion, attempt will be made to take Sinemet less frequent through the day but at a higher dose with superimposed dosing of Sinemet CR in attempt to avoid complete off effect of medication. Dosing as follows: Sinemet 25/100mg dose: -Take 1.5 tabs at 730AM (after eating something). -Take 1.5 tabs at 1130AM. -Take 1.5 tabs at 330PM (after lunch). -Take 1.5 tabs at 730 PM 2. Sinemet CR 50/200mg dose: -Take 1 tablet with your 730AM dose of short acting Sinemet. -Take 1 tablet at 10-11 PM. SE and ADRs d/w pt and her daughter. They agree with plan. 2. 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 No additional meds at this time per patient request. Warned of injury risks with such disorder and d/w them both treatment options. Pt will consider if symptoms worsen. For now no additional meds. 3. Small fiber neuropathy - ICD9: 356.9, ICD10: G62.9 Stable on gabapentin 100mg TID. No changes in dosing today. 4. Intracranial meningioma (HCC) - ICD9: 225.2, ICD10: D32.0 Encouraged neurosurgery follow up. Per pt contacted by neurosurgeons regarding upcoming MRI and need to schedule. Ranjan Connolly MD CHIEF COMPLAINT: follow up HISTORY OF PRESENT ILLNESS: Lou Oliver is a 77 year old female, There were no vitals taken for this visit. with a PMH significant for migraine, parkinson's disease, intracranial meningioma, hypothyroidism, anxiety. Previously on Currently taking Sinemet 25/100mg - 730AM, 1030AM, 130PM, 430PM, 830PM, and then takes the CR 50/200 at bedtime. And changed to below at last appointment. Sinemet 25/100mg dose: -Take 1.5 tabs at 730AM (after eating something). -Take 1.5 tabs at 1130AM. -Take 1.5 tabs at 330PM (after lunch). -Take 1.5 tabs at 730 PM 2. Sinemet CR 50/200mg dose: -Take 1 tablet with your 730AM dose of short acting Sinemet. -Take 1 tablet at 10-11 PM. Follows with brain tumor for meningioma- stable and decrease in size on last MRI 05/02/23. Patient notes that since last appointment her Parkinson symptoms have improved with the increased Sinemet, but notes that she has noted significant positional lightheadedness and low blood pressures. She also notes some increase sleepiness since increasing this medication. Has brought a log with her, her blood pressure will go as low as 60/40, previously 110/60. Does report an episode of syncope, notes that she got up quickly to answer the door and when she reached the door she passed out. No head injuries with this, was out for a matter of seconds per family. Notes that she has passed out before, but this was 50 years ago, has never passed out while on Sinemet. Does note that she has always been lightheaded while on this medication, but never this severe. Patient also has follows with cardiology, Dr. Greenwood and has an appointment with him coming up next month. Recovered well from his injury, no further episodes of syncope. Patient denies any other medication adjustments, no blood pressure medications since last appointment. No chest pain or palpitations during this. Patient does note that she recently had laboratory studies done, TSH is normal. She had urine that was cultured but shows mixed microbiota. No fevers at home, no chills, no worsening confusion or altered mental status. Patient does note that she does not drink much water and family is concerned about how little she eats. Notes that she will eat a few snacks throughout the day, but has poor caloric intake. Patient also notes some weight loss as well. Patient still remains active, goes to physical therapy for neck and balance and has exercise classes with delay the disease 3-4 times a week. Family notes that she lives alone, no stairs in the house but she does have daily visitors with neighbors and family members. Family has no concerns with her living alone, patient without any other falls. Patient denies leaving stove on, does drive occasionally after she takes her medication and only locally. Family has not expressed any concerns with her driving. No car accidents or issues. Notes that she sees an eye doctor regularly. Patient still take gabapentin for her paresthesias in her feet, notes significant improvement with this but still has some symptoms. Patient denies any vision changes, no headaches. Notes that she does have some trouble with her memory and feels like she cannot get words out over the last 6 months. Recent MRI showed no evidence of stroke. Patient does state that she sees shadow people throughout the home that has been going on for many years, and was not acutely worsened after medication adjustment. REVIEW OF SYSTEMS GENERAL:No weight loss, malaise or fevers. HEENT:Negative for frequent or significant headaches, No changes in hearing or vision, no nose bleeds or other nasal problems NECK:Negative for lumps, goiter, pain and significant neck swelling RESPIRATORY: Negative for cough, wheezing or shortness of breath. CARDIOVASCULAR: Negative for chest pain, leg swelling or palpitations. GASTROINTESTINAL: Negative for abdominal discomfort, blood in stools or black stools or change in bowel habits GENITOURINARY: No history of dysuria, frequency or incontinence MUSCULOSKELETAL: Negative for joint pain or swelling, back pain or muscle pain. NEUROLOGIC:Negative for focal numbness or weakness, headaches and dizziness or syncope, vision changes, speech/languag changes - EXCEPT that as per HPI above. SKIN:Negative for lesions, rash, and itching. PSYCHIATRIC: Negative for sleep disturbance, mood disorder and recent psychosocial stressors. HEMATOLOGIC/LYMPHATIC/IMMUNOLOGIC: Negative for prolonged bleeding, bruising easily or swollen nodes. ENDOCRINE: Negative for cold or heat intolerance, polyuria, polydipsia and goiter. The remainder of the ROS was reviewed and is negative. LAB/IMAGING: Those performed since patient's last visit have been reviewed. MRI brain 05/02/23 IMPRESSION: Slight interval decrease in size of presumed meningioma overlying the left inferior frontal gyrus and orbitofrontal gyri compared to 08/07/2022. Similar degree of vasogenic edema within the adjacent parenchyma. MEDICATIONS: levothyroxine (SYNTHROID) 75 mcg tablet Take 1 tablet by mouth once daily. Take on empty stomach. For Thyroid sertraline (ZOLOFT) 100 mg tablet Take 1 tablet by mouth once daily. LORazepam (ATIVAN) 0.5 mg Take 1 tablet by mouth once daily as needed (anxiety, panic) for up to 30 days. carbidopa-levodopa (SINEMET) 25-100 mg per tablet Take 1.5 tabs QID as instructed. carbidopa-levodopa CR (SINEMET CR) 50-200 mg per tablet TAKE 1 TABLET BY MOUTH in Morning and before bedtime as instructed. gabapentin (NEURONTIN) 100 mg capsule Take 1 capsule by mouth three times daily for 180 days. pravastatin (PRAVACHOL) 20 mg tablet Take 1 tablet by mouth daily at bedtime. Cholecalciferol, Vitamin D3, 50 mcg (2,000 unit) cap Take 2,000 Units by mouth once daily. diclofenac sodium (VOLTAREN) 1 % topical gel APPLY 2 GRAMS TO AFFECTED AREA 4 TIMES A DAY docusate sodium (COLACE ORAL) Take by mouth as needed. THERAPEUTIC MULTIVITAMIN TAB Take by mouth. HISTORIES PAST MEDICAL HISTORY Diagnosis Date Diverticulosis of colon (without mention of hemorrhage) Essential hypertension, benign 04/04/2007 Mental disorder Migraine without aura 04/04/2007 Parkinson disease (HCC) Unspecified hypothyroidism 04/04/2007 FAMILY HISTORY Problem Relation Age of Onset Hypertension Mother Arthritis Mother Heart disease Mother Diabetes Father adult onset Emphysema Father Cancer Father lung Asthma Daughter Allergic Rhinitis Daughter Diabetes Paternal Grandmother Ischemic Heart Disease Maternal Grandfather Psychiatry Maternal Grandmother SOCIAL HISTORY Social History Tobacco Use Smoking status: Never Smokeless tobacco: Never Tobacco comments: Father smoked in childhood home. 2 spouses were smokers. Vaping Use Vaping Use: Never used Substance Use Topics Alcohol use: No Drug use: No PHYSICAL EXAMINATION BP (!) 97/48 Pulse 73 Temp 36.6 C (97.8 F) Resp 16 Wt 62.9 kg (138 lb 9.6 oz) SpO2 96% BMI 23.42 kg/m GENERAL EXAM: General appearance: NAD, pleasant. HEENT: NC/AT, nasal congestion absent, no oral lesions, membranes moist. NECK: No masses, supple. Lungs: Breathing comfortably Extr: Moves all extremities without difficulty Skin: Cool to touch. No rash. NEUROLOGICAL EXAM: General: Awake, alert, oriented x3 (person,place,time), speech fluent, no dysarthria; comprehension, naming, repetition intact. Short and correction memory intact. CN: PERRL, EOMI and without nystagmus, VFF to confrontation, facial sensation and strength are normal and symmetric, hearing is intact to finger rub bilaterally, palate and tongue movements are intact and symmetric. SCM and trapezius strength normal. Motor: Normal tone, bulk and strength (5/5) bilaterally (throughout extremities x4). Reflexes: 2/4 and symmetric Coordination: FNF intact. [id number] intact. Bilateral upper extremity tremor with finger-nose testing, slightly worse on the left. Finger tapping equal and brisk Sensation: LT throughout. No evidence of neglect. Gait: Narrow based and stable with normal stride and arm swing. Normal tandem. Romberg normal. ++ retropulsion Assessment and Plan: ASSESSMENT/PLAN: 1. Parkinson disease (HCC) - ICD9: 332.0, ICD10: G20 (primary diagnosis) Patient with hypotension and 1 episode of syncope secondary to lightheadedness after increase in Sinemet. Patient also has both factors that may be contribute to low blood pressure as well including low fluid intake, poor diet and hypothyroidism. However, recent TSH was normal. Patient also with recent abnormal urine culture, but due to mixed microbiota, unlikely to be infection. Patient without any signs or symptoms of infection. Patient does have appointment with cardiology next month, encouraged to keep this appointment for further evaluation of her episode of syncope. At this time, will decrease dosage of Sinemet 25/100 mg to 1 tablet instead of 1.5 tablet 4 times a day. We will still continue CR Sinemet 50/200mg twice daily as previously noted. Recent brain MRI did not show any signs of stroke or etiology of patient's symptoms. New regimen noted below. Patient does note significant nausea after medication which last for an hour or so after taking it. May consider adding carbidopa with her medication. Sinemet 25/100mg dose: -Take 1 tabs at 730AM (after eating something). -Take 1 tabs at 1130AM. -Take 1 tabs at 330PM (after lunch). -Take 1 tabs at 730 PM 2. Sinemet CR 50/200mg dose: -Take 1 tablet with your 730AM dose of short acting Sinemet. -Take 1 tablet at 10-11 PM. Physical exam is reassuring today with normal tone and gait, but significantly positive retropulsion. Patient encouraged to increase water intake as well as increase food intake throughout the day. Encouraged to continue with exercise and physical therapy for balance. Patient agrees and understands. Patient lives alone but has daily visitors including her neighbors and family. Had 1 fall secondary to syncope, but no other falls or concerns. Family not concerned with patient living alone. Patient continues to drive locally when she feels her medicine is working, no accidents at this time. Patient or family not expressing any concern with her driving. 2. Intracranial meningioma (HCC) - ICD9: 225.2, ICD10: D32.0 Stable, following with brain tumor. Recent MRI showed slight decrease in size of meningioma. Encourage continued follow-up with brain tumor. Patient and family agreeable to treatment plan of care at this time, all questions were answered. Due to medication adjustment and patient's lightheadedness, patient to follow-up in 8 weeks or sooner should any symptoms change or worsen. Zhane Sylvester PA-C I spent a total of 40 minutes on the date of the service which included preparing to see the patient, [id number] patient care, completing clinical documentation, obtaining and/or reviewing separately obtained history, performing a medically appropriate examination, counseling and educating the patient/family/caregiver, and ordering medications, tests, or procedures. This document has been created with the use of voice recognition technology. It may contain inaccuracies: (e.g. misspellings, inaccurate syntax or word sense) that have escaped review. documented in this encounter [facility] 05-20-2023 History of Present illness Narrative Episode Visit Count: 9 Therapist That Will Accept/Oversee The Plan Of Care: Steve Chavez, PT, DPT Start of Care Date: 04/09/23 Onset Date: 10/21/22 Plan of Care Certification Date: 05/02/23 Next Certification Due Date: 06/06/23 [facility] PHYSICAL THERAPY TREATMENT NOTE ASSESSMENT: Lou Oliver tolerated the session with decreased symptoms, expected muscle soreness, and no issues. She demonstrated improvements in symptom reduction and return to postural strengthening without issue. She struggled with the D2 Flexion pattern overall, however improved following verbal/tactile cues. The patient will continue to benefit from ongoing skilled physical therapy to progress toward set goals. PLAN FOR NEXT VISIT: Add Balance Exercises/possibly start with; continue postural mm strengthening. SUBJECTIVE: Patient Reason for Visit: Pt. reports back to PT following a 2-week absence due to fainting spells/with a fall without injury. Pt. states continued lightheadness and initial dizziness following transitional movements. Saw Dr. Vance and had lab work done/increased Zoloft. Pt. states they think it was more dehydration with that 1 fainting episode. Reports back to PCP in a couple weeks for recheck. Hasn't been able to keep up with exercises due to everything going on, neck pain feels about 5/10 today. Pain: Pain Pain Level: 5 Pain Location: Neck, Neck - Right, Neck - Left Description: Aching, Throbbing Frequency: Intermittent Post Treatment Pain Post Treatment Pain Level: Better Post Treatment Pain Location: Neck, Neck - Left, Neck - Right Post Treatment Pain Description: Other: See comment Post Treatment Symptoms: Less Stiffness/Pain. OBJECTIVE MEASURES WITH LEVEL OF FUNCTION: Increased tenderness and tissue restriction in the L UT this date. Improved following manual per patient. TREATMENT: Therapeutic Exercise: 1: Supine Chin Tucks: 3x10 5 hold 2: Supine Chin Tuck, Head Lift Off: 3x10. 3: Supine Horz. ABD Pull-Aparts with PTB: 2x10 ea. 4: Supine D2 Flexion Pull-Aparts with PTB: 2x10 ea. 5: Seated Y's: 2x10 (Scapular Squeeze before shoulder movement.) Skilled Intervention: Patient was educated in proper exercise technique and purpose for exercises. Skilled judgment was provided in selection of appropriate interventions. Correct performance of therapeutic exercises was facilitated with verbal, visual, and tactile cuing. Manual Therapy: 1: STM with hands to Phillip upper traps, suboccipitals, scalenes & C/S paraspinals: Push to patient tolerance. 2: Manual Cervical Traction: Pull to patient tolerance. 3: Suboccipital Release Skilled Intervention: Manual skills to improve joint mobility, ROM, and decrease pain. Utilized anatomy knowledge of the therapist, and assessment of patient's response to intervention. Billing Therapeutic Exercise Treatment Minutes: 20 Manual TherapyTreatment Minutes: 25 Total Treatment Time Minutes (timed/untimed): 45 Session Start Time : 1145 Session Stop Time : 1230 Steve Chavez PT documented in this encounter [facility] 05-08-2023 History of Present illness Narrative 77 year old female with PMH HTN, thyroid, and Parkinson presents for low BP and feeling faint Accompanied by family Patient endorses she passed out 6 days ago, but was not evaluated. She presented to [facility] today thinking she had an appointment, but it is next week. Discussed with family and patient her symptoms required further work up then [facility] can provide, Concerns for life anemia, cardiac, intracranial etc. Referred to ED. documented in this encounter [facility] 05-06-2023 History of Present illness Narrative Images from the original note were not included. [facility] NEURO-ONCOLOGY VIRTUAL VISIT NOTE I have communicated my name and active licensure. The patient's identity and physical location were verified at the time of this visit. Either the patient or their legal outside medical sales representative has been informed of the risks and benefits of -- and alternatives to -- treatment through a remote evaluation and consents to proceed with the evaluation remotely. 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 - MRI brain today appears to show decrease size of the meningioma and stable adjacent edema - Images reviewed with the patient - Recommend follow up appointment with myself via virtual and new MRI brain in 6 months at [place] - Reviewed signs and symptoms that would prompt sooner evaluation - The patient has our contact information and was advised to call if new symptoms, questions or concerns arise prior to next scheduled visit. - All questions were answered. Mary Ely APRN.BUCKET [employer] Certified Nurse Practitioner cc: Semaj Rodriguez MD--[facility] Subjective HISTORY OF PRESENT ILLNESS: Lou Oliver is a 77 year old year old left-handed female who is here for an incidentally discovered left frontal meningioma. This was discovered in workup for Parkinson's disease. The meningioma was found to have slow interval growth with increase FLAIR changes and she underwent 5 fractions of GKRS from 08/13/23-08/17/23. She presents today for follow up. INTERVAL HISTORY 03/16/21 Since she was last seen she states her Parkinsonian symptoms have improved. Her balance, tremors, anxiety, and depression have improved. She denies any new neurological symptoms or seizures. 03/28/22 Her Parkinson's is stable. She is still ambulatory and is taking PT/OT to help with balance. She denies any seizure like activity. 05/07/23 She has a cataract, which she will likely get removed. She is getting PT for her neck. No seizure activity. She does have ocular migraines. Flashing lights in bilateral peripheral alberts which started when she was in menopause. SOCIAL HISTORY: Social History Tobacco Use Smoking status: Never Smokeless tobacco: Never Tobacco comments: Father smoked in childhood home. 2 spouses were smokers. Vaping Use Vaping Use: Never used Substance Use Topics Alcohol use: No Drug use: No PAST MEDICAL HISTORY Diagnosis Date Diverticulosis of colon (without mention of hemorrhage) Essential hypertension, benign 04/04/2007 Mental disorder Migraine without aura 04/04/2007 Parkinson disease (HCC) Unspecified hypothyroidism 04/04/2007 FAMILY HISTORY Problem Relation Age of Onset Hypertension Mother Arthritis Mother Heart disease Mother Diabetes Father adult onset Emphysema Father Cancer Father lung Asthma Daughter Allergic Rhinitis Daughter Diabetes Paternal Grandmother Ischemic Heart Disease Maternal Grandfather Psychiatry Maternal Grandmother Current Outpatient Medications Medication Sig carbidopa-levodopa (SINEMET) 25-100 mg per tablet Take 1.5 tabs QID as instructed. carbidopa-levodopa CR (SINEMET CR) 50-200 mg per tablet TAKE 1 TABLET BY MOUTH in Morning and before bedtime as instructed. gabapentin (NEURONTIN) 100 mg capsule Take 1 capsule by mouth three times daily for 180 days. pravastatin (PRAVACHOL) 20 mg tablet Take 1 tablet by mouth daily at bedtime. sertraline (ZOLOFT) 50 mg tablet Take 1 tablet by mouth once daily. Cholecalciferol, Vitamin D3, 50 mcg (2,000 unit) cap Take 2,000 Units by mouth once daily. levothyroxine (SYNTHROID) 75 mcg tablet Take 1 tablet by mouth once daily. Take on empty stomach. For Thyroid diclofenac sodium (VOLTAREN) 1 % topical gel APPLY 2 GRAMS TO AFFECTED AREA 4 TIMES A DAY docusate sodium (COLACE ORAL) Take by mouth as needed. THERAPEUTIC MULTIVITAMIN TAB Take by mouth. No current facility-administered medications for this visit. REVIEW OF SYSTEMS : Neurological : No complaint of headache No complaint of tinnitus No complaint of decreased hearing No complaint of diplopia No complaints of blurred vision. No complaint of arm/leg numbness No problem with limb coordination No complaint of syncope No complaints of seizures. No complaints of memory changes or disorientation. + Parkinson's disease General : Constitutional: No recent fever or weight loss. Eyes: No history of glaucoma, + cataracts ENMT: No recent ear infection, nasal congestion, mouth sores or sore throat. CV: No history of chest pain, palpitations or leg swelling Respiratory: No history of SOB, wheezing or recent cough. Gastrointestinal: No history of nausea, vomiting, dysphagia or abdominal pain. Genitourinary: No history of hematuria or dysuria. Musculoskeletal: No complaint of arthritis, unstable gait or arm/leg weakness, + neck pain Psychiatric: No history of hallucinations, depression, or anxiety Objective NEUROLOGICAL EXAM: Higher integrative functions: Oriented to person, place & time. Memory: Good recent and remote. Attention Span and Concentration: Good. Language: Accurate naming of objects. Good comprehension. Fund of Knowledge: Good. IMAGING STUDIES: MRI Brain WO/W IVCON 05/02/23 MRI Report MRI BRAIN WO/W IVCON Exam End: 05/02/2023 3:46 PM (Final result) Narrative: * * *Final Report* * * DATE OF EXAM: May 02 2023 3:46PM REMA [id number] - MRI BRAIN WO/W IVCON / PROCEDURE REASON: Meningioma (HCC) * * * * Physician Interpretation * * * * EXAMINATION: MRI BRAIN WO/W IVCON HISTORY: Meningioma (HCC). Status post gamma knife on 08/09/2022. TECHNIQUE: Routine brain MRI protocol without and with contrast including diffusion and gradient echo images. MQ: [id number] Contrast: 13 mL Dotarem IV COMPARISON: Multiple prior MRIs of the brain, most recently localization MRI from 08/07/2022 RESULT: Acute Change: There is no evidence of restricted diffusion to suggest an acute infarct. Hemorrhage: Focus of susceptibility artifact in the lateral right temporal occipital junction, nonspecific. Mass Lesion/ Mass Effect: There is a 3.4 x 1.7 x 1.8 cm meningioma along the left frontal convexity, exerting moderate mass effect on the adjacent left inferior frontal gyrus. Lesion appears slightly decreased in size, previously measuring 3.4 x 1.9 x 1.9 cm on 08/07/2022. Similar degree of vasogenic edema within the adjacent parenchyma compared to 03/26/2022. No new lesions are identified. Perfusion imaging was obtained and appears technically adequate. There is significantly elevated cerebral blood volume within the presumed meningioma relative to the adjacent parenchyma. Chronic Change: Scattered punctate foci of increased T2 and FLAIR signal are noted in the supratentorial white matter which is a nonspecific finding, but likely represents minimal chronic microvascular ischemia. Parenchyma: There is mild generalized parenchymal volume loss. Ventricles: Normal caliber and morphology. Skull Base: Hypothalamic and pituitary region are grossly normal. Craniocervical junction is normal. No significant marrow replacement process. Vasculature: Major intracranial arterial structures, and dural venous sinuses show typical flow void, suggesting patency by spin echo criteria. Incidental developmental venous anomaly in the right frontal lobe. Other: The visualized paranasal sinuses and mastoid air cells are clear. The orbits and extracranial soft tissues are unremarkable. Impression: IMPRESSION: Slight interval decrease in size of presumed meningioma overlying the left inferior frontal gyrus and orbitofrontal gyri compared to 08/07/2022. Similar degree of vasogenic edema within the adjacent parenchyma. Tenant Selector: DOMENIC Transcribe Date/Time: May 02 2023 5:29P Dictated by : FELIX SAHNI MD This examination was interpreted and the report reviewed and electronically signed by: FELIX SAHNI MD on May 02 2023 5:40PM EST documented in this encounter [facility] 05-02-2023 History of Present illness Narrative Episode Visit Count: 8 Therapist That Will Accept/Oversee The Plan Of Care: Steve Chavez PT, DPT Start of Care Date: 04/09/23 Onset Date: 10/21/22 Plan of Care Certification Date: 05/02/23 Next Certification Due Date: 06/06/23 REHABILITATION AND SPORTS THERAPY PHYSICAL THERAPY PROGRESS REPORT PLAN OF CARE UPDATE: Assessment: Lou Oliver demonstrates minimal improvement in use hand with arm at shoulder level, dressing, grooming, pulling, and pushing. She has progressed toward goals. Patient continues to present with impairments in ADL's, balance, coordination, gait, independence in exercise, joint mobility, overall function, posture, range of motion, soft tissue healing, strength, symptom management, and tissue tenderness that interfere with cleaning, carrying, lifting, physical activities, recreational activities, walking in the community (Yardwork/raking) . Current prognosis is Fair due to: clinical presentation, chronic nature of impairments .She will benefit from continued skilled therapy services to meet the updated goals for this plan of care as noted below. Goals for Episode of Care: created on 04/09/23 through 06/04/23 1. Keller in home exercise program. - Goal Met 2. Patient will decrease pain rating by 2 points to meet minimal clinical important difference for numeric pain rating scale. - Progressing Towards 3. Patient will demonstrate increase in cervical strength to 5/5 during manual muscle testing in order to improve function for basic self-care tasks and light functional tasks. - Progressing Towards. 4. Restore pain free cervical ROM by 10 degrees each direction to allow for improved posture. - Progressing Towards 5. Patient will improve performance on Deep Neck Flexor Endurance Test to 20 seconds to demonstrate improved neuromuscular coordination & endurance. - Progressing Towards 6. Patient will improve performance on Cervical Neck Extensor Endurance Test to 12-15 seconds to demonstrate improved cervical paraspinal strength to improve posture & function for prior functional tasks. - Progressing Towards Patient Goals: Decrease cervical pain. Return to walking exercise Planned Interventions, Frequency, and Duration: 2x/week, 3 weeks Total Number of Visits Planned: 6 Patient to be seen for Therapeutic exercise (09231), Neuromuscular re-education (61553), Manual therapy (26323), Therapeutic activities (26744), Self-group home management ([id number]), Patient/Family/Caregiver Education, Body Mechanics Training PLAN FOR NEXT VISIT: Balance interventions, thoracic mobility. SUBJECTIVE: Patient Reason for Visit: Pt. reports minimal to moderate improvement with physical therapy thus far. Functional Limitations: cleaning, carrying, lifting, physical activities, recreational activities, walking in the community (Yardwork/raking) Pain: Pain Pain Level: 4 Pain Location: Neck, Neck - Right, Neck - Left Description: Aching, Sore Frequency: Intermittent Post Treatment Pain Post Treatment Pain Level: Better Post Treatment Pain Location: Neck, Neck - Left, Neck - Right Post Treatment Pain Description: Other: See comment Post Treatment Symptoms: Neck feels better/more loose following STM PROMIS Scales Higher is Better 04/14/2023 04/06/2023 03/18/2023 Phys Func - Score 38 (moderate dysfunction) - 38 (moderate dysfunction) Phys Func - Percentile 12 % - 12 % Self-Eff Symptom - Score - 41 (Average) - Self-Eff Symptom - Percentile - 18 % - T-scores: mean of general population = 50. 5 points is clinically meaningfully difference Percentiles provide an indication of how the patient's score ranks in relation to the general population. Higher percentile rankings indicate better function/quality of life. 50th percentile is the average of the general population and indicates half of respondents had a worse score. OBJECTIVE MEASURES WITH LEVEL OF FUNCTION: Cervical Spine ROM Cervical ROM : Measurement AROM Cervical Flexion AROM (degrees) : 55 Degrees Cervical Extension AROM (degrees) : 12 Degrees Cervical Side-Bend Right AROM (degrees): 40 Degrees Cervical Side-Bend Left AROM (degrees) : 40 Degrees Cervical Rotation Right AROM (degrees) : 45 Degrees Cervical Rotation Left AROM (degrees) : 50 Degrees UE and Cervical Strength Cervical Strength: Flex (4+/5), Ext (4/5), L Rot & side-bend (4+/5), R Rot & side-bend (4+/5) R UE Strength: Grossly 4+/5 L UE Strength: Grossly 4+/5 R Shoulder Shrug (C4): 5/5 L Shoulder Shrug (C4): 5/5 Special Tests - Hip and Spine Special Test Comments: Deep Neck Flexor Endurance Test (16.3 sec), Cervical Neck Extensor Endurance Test (8.4 sec). Functional Performance Test Results 30 Second Chair Stand Test: 10 reps Timed Up and Go (sec): 7.3 sec 4 Stage Balance Test Narrow base of support (sec): 10 sec Semi-tandem base of support (sec): 10 sec Tandem base of support (sec): 10 sec Single leg stance - right (sec): 10 sec Single leg stance - left (sec): 10 sec TREATMENT: Therapeutic Exercise: 1: Supine Chin Tucks: 3x12 5 hold 3: Seated Scapular W's: 3x15 1-2 squeeze. 5: Seated Y's: 2x10 (Scapular Squeeze before shoulder movement.) 6: *Progress Assessment & Testing* Skilled Intervention: Patient was educated in proper exercise technique and purpose for exercises. Skilled judgment was provided in selection of appropriate interventions. Correct performance of therapeutic exercises was facilitated with verbal, visual, and tactile cuing. Manual Therapy: 1: STM with hands to Phillip upper traps & C/S paraspinals. 2: Manual Cervical Traction: Pull to patient tolerance. Skilled Intervention: Manual skills to improve joint mobility, ROM, and decrease pain. Utilized anatomy knowledge of the therapist, and assessment of patient's response to intervention. Self-Half-Way Management: 1: Education regarding updated POC, HEP, current goals and the improvements she has made following first evaluation testing to today. Patient educated on remaining deficits continued to be found following progress assessment. Discussion with patient on priorities to be address with PT during updated POC: balance, neck motion/strengh, and postural control. Skilled Intervention: Skilled judgment in the selection of proper modification for activity of daily living/home management based on clinical presentation, deficits, and needs. Reviewed patient specific diagnosis in relation to activities of daily living/home management. Activity progression based on professional judgement. Billing Therapeutic Exercise Treatment Minutes: 20 Manual TherapyTreatment Minutes: 14 Self-Care/Home Management Treatment Minutes: 10 Total Treatment Time Minutes (timed/untimed): 44 Steve Chavez PT documented in this encounter [facility] 07-10-2023 History of Present illness Narrative Episode Visit Count: 7 Therapist That Will Accept/Oversee The Plan Of Care: Steve Chavez, PT, DPT Start of Care Date: 04/09/23 Onset Date: 10/21/22 Plan of Care Certification Date: 04/09/23 Next Certification Due Date: 05/14/23 REHABILITATION AND SPORTS THERAPY PHYSICAL THERAPY TREATMENT NOTE ASSESSMENT: Lou Oliver tolerated the session with fatigue, expected muscle soreness, and no issues. She demonstrated difficulty with dissociating the two-part movement intervention, chin tuck with head lift off - however improved following tactile cueing. The patient will continue to benefit from ongoing skilled physical therapy to progress toward set goals. PLAN FOR NEXT VISIT: Progress Assessment SUBJECTIVE: Patient Reason for Visit: Pt. reports slight tenderness in L-sided neck this date. Reports she is having increased carryover of decreased sxs and less neck pain following sessions. Pt. reports being able to tolerate more at home this past weekend with decreased neck sxs/pain such as driving and gardening without issue. Notes overall progression through POC. Pain: Pain Pain Level: 2 Pain Location: Neck, Neck - Left Description: Aching, Stiffness Frequency: Intermittent Post Treatment Pain Post Treatment Pain Level: No Change Post Treatment Pain Location: Neck, Neck - Left Post Treatment Pain Description: Other: See comment Post Treatment Symptoms: Postural Muscles Fatigued OBJECTIVE MEASURES WITH LEVEL OF FUNCTION: Less soft tissue C/S restriction & tenderness this date. Trigger point in L Upper Trap - symptoms & restriction reduced following manual. TREATMENT: Therapeutic Exercise: 1: Supine Chin Tucks: 3x12 5 hold 2: Supine Chin Tuck, Head Lift Off: 2x8 2-3 hold. 3: Seated Scapular W's: 3x15 4: UBE: 5 [place] (For cardiovascular endurance of whole body for PD as well as for muscle endurance of posterior neck to hold head up with arm movements. Subjective taken.) 5: Seated Y's: 2x10 (Scapular Squeeze before shoulder movement.) Skilled Intervention: Patient was educated in proper exercise technique and purpose for exercises. Skilled judgment was provided in selection of appropriate interventions. Correct performance of therapeutic exercises was facilitated with verbal and tactile cuing. Manual Therapy: 1: STM with hands to Phillip upper traps and levator scap w/ patient in supine; extra time spent on L UT. 2: Manual cervical stretching of Phillip upper traps, levator scapulae, SCMs w/ patient in supine 3: Active release L Upper Trap. Skilled Intervention: Manual skills to improve joint mobility, ROM, and decrease pain. Utilized anatomy knowledge of the therapist, and assessment of patient's response to intervention. Billing Therapeutic Exercise Treatment Minutes: 20 Manual TherapyTreatment Minutes: 25 Total Treatment Time Minutes (timed/untimed): 45 Steve Chavez PT documented in this encounter [facility] 04-22-2023 History of Present illness Narrative Episode Visit Count: 5 Therapist That Will Accept/Oversee The Plan Of Care: Steve Chavez PT, DPT Start of Care Date: 04/09/23 Onset Date: 10/21/22 Plan of Care Certification Date: 04/09/23 Next Certification Due Date: 05/14/23 REHABILITATION AND SPORTS THERAPY PHYSICAL THERAPY TREATMENT NOTE ASSESSMENT: Lou Oliver tolerated the session with decreased activity tolerance due to increased posterior neck pain this A.M causing patient to be a little more reliant on Phillip upper extremity use to hold head up today, decreased symptoms, and expected muscle soreness. She demonstrated improvements in neck pain and stiffness today following increased manual work this date, and was able to tolerate slight progressions in interventions following. The patient will continue to benefit from ongoing skilled physical therapy to progress toward set goals. Unable to begin balance exercises today due to increased neck pain this date. Will begin next visit as able and as chief complaint of neck pain allows. PLAN FOR NEXT VISIT: Add balance exercises. Continue manual for tissue tightness and restrictions PRN, michelle. Phillip UT. Progress ther ex as tolerated SUBJECTIVE: Patient Reason for Visit: Pt. reports neck is slightly more aggravated today. Midline C/S and boths sides. Does not have a precipitating reason as to why and denies increased activity this weekend, she is unsure if it is just the weather or aching from Parkinsons Disease. States continued compliance with HEP. Pain: Pain Pain Level: 4 Pain Location: Neck, Neck - Right, Neck - Left Description: Aching, Dull Frequency: Intermittent (Increased soreness this A.M.) Post Treatment Pain Post Treatment Pain Level: 3 Post Treatment Pain Location: Neck Post Treatment Pain Description: Sore OBJECTIVE MEASURES WITH LEVEL OF FUNCTION: Increased soft tissue restriction this date in bilateral upper traps (R > L). Increased tenderness to palpation and manual this date. Improved throughout and was able to tolerate increased push during STM/IaSTM. TREATMENT: Therapeutic Exercise: 1: Supine Chin Tucks: 3x10 3-5 hold 2: Seated Retractions Yellow TB:3x10 2 hold 3: Wall Pushups: 2x12 4: Sci-fit: 5 Minutes (For cardiovascular endurance of whole body for PD as well as for muscle endurance of posterior neck to hold head up with arm movements. Subjective taken.) 7: Standing Rows: 3x12 [place] TB 9: Serratus Punch: 2x15 3#db ea. Skilled Intervention: Patient was educated in proper exercise technique and purpose for exercises. Skilled judgment was provided in selection of appropriate interventions. Correct performance of therapeutic exercises was facilitated with verbal and tactile cuing. Manual Therapy: 1: STM with hands & IaSTM to Phillip upper traps and levator scap w/ patient in supine; extra time spent on R UT. 2: Manual cervical stretching of Phillip upper traps, levator scapulae, SCMs w/ patient in supine Skilled Intervention: Manual skills to improve joint mobility, ROM, and decrease pain. Utilized anatomy knowledge of the therapist, and assessment of patient's response to intervention. Billing Therapeutic Exercise Treatment Minutes: 20 Manual TherapyTreatment Minutes: 25 Total Treatment Time Minutes (timed/untimed): 45 Steve Chavez PT documented in this encounter [facility] 04-18-2023 History of Present illness Narrative Episode Visit Count: 4 Therapist That Will Accept/Oversee The Plan Of Care: Steve Chavez PT, DPT Start of Care Date: 04/09/23 Onset Date: 10/21/22 Plan of Care Certification Date: 04/09/23 Next Certification Due Date: 05/14/23 REHABILITATION AND SPORTS THERAPY PHYSICAL THERAPY TREATMENT NOTE ASSESSMENT: Lou Oliver tolerated the session with decreased symptoms, expected muscle soreness, and no issues. She demonstrated improvements in keeping her head up during postural strengthening and scapular stabilization exercises today with less need for verbal cues. The patient will continue to benefit from ongoing skilled physical therapy to progress toward set goals. Progress note to be completed next visit. PLAN FOR NEXT VISIT: Add balance exercises per pt. request. Continue manual for tissue tightness and restrictions PRN, michelle. Phillip UT. Progress ther ex as tolerated SUBJECTIVE: Patient Reason for Visit: Pt. reports slight tenderness on left side of the neck today. States overall she is noticing progress being made in tissue tightness, posture and strength. Major complaint remains a heavy head during prolonged positions due to forward head and T/S curvature. States adherance to HEP. Pain: Pain Pain Level: 2 Pain Location: Neck - Left Description: Aching Post Treatment Pain Post Treatment Pain Level: 1 Post Treatment Pain Location: Neck (Left UT) Post Treatment Pain Description: Sore Post Treatment Symptoms: (Feels Better) OBJECTIVE MEASURES WITH LEVEL OF FUNCTION: Moderate soft tissue restriction in mid belly and proximal left UT. Patient tolerated increased push during STM - states the Left Upper Trap felt better following. TREATMENT: Therapeutic Exercise: 1: Supine Chin Tucks: 3x10 3-5 hold 2: Seated Retractions Yellow TB:2x10 2 hold 3: Standing Pallof Press: 2x[address] [place] [address] 5: Fwd Step Ups: 2x10 ea. leg up 1st holding 2#db 6: Standing Shoulder Extension: 3x12 [place] TB 7: Standing Rows: 3x12 [place] TB 8: Marching in place w/ arenas carry: 2 Minutes 3lb. db in ea. hand 9: Serratus Punch: 2x10 2#db ea. Skilled Intervention: Patient was educated in proper exercise technique and purpose for exercises. Skilled judgment was provided in selection of appropriate interventions. Correct performance of therapeutic exercises was facilitated with verbal and tactile cuing. Manual Therapy: 1: STM to Phillip upper traps and levator scap w/ patient in supine; extra time spent on L UT. 2: Manual cervical stretching of Phillip upper traps, levator scapulae, SCMs w/ patient in supine Skilled Intervention: Manual skills to improve joint mobility, ROM, and decrease pain. Utilized anatomy knowledge of the therapist, and assessment of patient's response to intervention. Billing Therapeutic Exercise Treatment Minutes: 25 Manual TherapyTreatment Minutes: 20 Total Treatment Time Minutes (timed/untimed): 45 Steve Chavez PT, DPT documented in this encounter [facility] 04-15-2023 History of Present illness Narrative Episode Visit Count: 3 Therapist That Will Accept/Oversee The Plan Of Care: Steve Chavez, PT, DPT Start of Care Date: 04/09/23 Onset Date: 10/21/22 Plan of Care Certification Date: 04/09/23 Next Certification Due Date: 05/14/23 REHABILITATION AND SPORTS THERAPY PHYSICAL THERAPY TREATMENT NOTE ASSESSMENT: Lou Oliver tolerated the session with fatigue, no change in symptoms, and expected muscle soreness. She demonstrated difficulty with the soft tissue restriction in the R UT and was unable to tolerate deep manual work. She demonstrated improvements in overall exercise mechanics without associated muscle compensation. The patient will continue to benefit from ongoing skilled physical therapy to progress toward set goals. PLAN FOR NEXT VISIT: Continue manual for soft tissue restrictions PRN, michelle. R UT. Progress ther ex as tolerated SUBJECTIVE: Patient Reason for Visit: Pt. neck overall is doing good this morning. Lou reports Saturday the her neck felt more stiff & sore than usual, especially on the R side. Pt. states prolonged walking is the hardest/most painful for her due to trying to hold the head up. States compliance with HEP. Reports scheduled appt. with pain mgmt in June per Dr. Rizzo orders. Hoping she won't need the appt following PT. Pain: Pain Pain Level: 2 Pain Location: Neck - Right Description: Aching, Sore Frequency: Intermittent Post Treatment Pain Post Treatment Pain Level: No Change Post Treatment Pain Location: Neck Post Treatment Pain Description: Sore Post Treatment Symptoms: Neck & shoulders fatigued OBJECTIVE MEASURES WITH LEVEL OF FUNCTION: Soft tissue restriction in Right Upper trap. Tenderness to palpation, causing referral pain down to the shoulder with deep push. Went to patient tolerance. Patient unable to tolerate trigger point release. TREATMENT: Therapeutic Exercise: 1: Supine Chin Tucks: 2x15 3-5 hold 2: Isometric C/S Extension: 2x15 5 hold 3: *Standing Pallof Press: 2x[address] [place] [address] 4: Sci-fit: 5 Minutes (For cardiovascular endurance of whole body for PD as well as for muscle endurance of posterior neck to hold head up with arm movements. Subjective taken and HEP assessed.) 6: Standing Shoulder Extension: 3x12 [place] TB 7: *Standing Rows: 3x12 [place] TB 8: Marching in place w/ arenas carry: 2 Minutes 3lb. db in ea. hand 9: *Serratus Punch: 2x10 ea. Skilled Intervention: Patient was educated in proper exercise technique and purpose for exercises. Reviewed and educated patient on additions/changes for home exercise program as above (*). Skilled judgment was provided in selection of appropriate interventions. Correct performance of therapeutic exercises was facilitated with verbal, visual, and tactile cuing. Manual Therapy: 1: STM to Phillip upper traps and levator scap w/ patient in supine 2: Manual cervical stretching of Phillip upper traps, levator scapulae, SCMs w/ patient in supine Skilled Intervention: Manual skills to improve joint mobility, ROM, and decrease pain. Utilized anatomy knowledge of the therapist, and assessment of patient's response to intervention. Billing Therapeutic Exercise Treatment Minutes: 25 Manual TherapyTreatment Minutes: 15 Total Treatment Time Minutes (timed/untimed): 40 Steve Chavez PT DPT documented in this encounter [facility] 04-11-2023 Miscellaneous Notes Left detailed message on [employer]. 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 She demonstrated improvements in holding her head up against gravity without the use of her hands and not allowing her chin to reach her chest, still requiring minimum cueing, however much better than initial eval. The patient will continue to benefit from ongoing skilled physical therapy to progress toward set goals. PLAN FOR NEXT VISIT: Continue manual for soft tissue restrictions as needed. Strengthening exercises of posterior upper trunk and cervical muscles. SUBJECTIVE: Patient Reason for Visit: Patient's neck is feeling better this A.M., she states she had more movement this morning and didn't have to hold her head up the first part of the morning like she normally does when awaking everyday for 15 minutes. States overall compliance with HEP with no issue. Patient has her PD class following today's appt. Pain: Pain Pain Level: 2 Pain Location: Neck - Right Description: Aching, Pressure Frequency: Intermittent Additional Pain Information : Comments Additional Pain Information Comments: Neck seems a little more flexible this A.M. Post Treatment Pain Post Treatment Pain Level: No Change Post Treatment Pain Location: Neck Post Treatment Pain Description: Sore Post Treatment Symptoms: Posterior neck fatigued OBJECTIVE MEASURES WITH LEVEL OF FUNCTION: Patient posterior neck muscles fatigued appropriately with standing strengthening exercises of upper trunk and arms. Continuous cues for head up and eyes straight forward to work on posture and cervical paraspinal endurance. Soft tissue restrictions remain in upper traps (R>L). TREATMENT: Therapeutic Exercise: 1: Supine Chin Tucks: 2x10 3-5 hold 2: Isometric C/S Extension: 2x10 5 hold 3: Standing Pallof Press: 2x10 [address] 4: Sci-fit: 5 Minutes (For cardiovascular endurance of whole body for PD as well as for muscle endurance of posterior neck to hold head up with arm movements. Subjective taken and HEP assessed.) 5: Active cervical extension ROM w/ 3 eccentric lower into neutral: 3x10 6: Standing Shoulder Extension: 2x10 [place] TB 7: Standing Rows: 2x10 [place] TB 8: Marching in place w/ arenas carry: 2 Minutes 3lb. db in ea. hand Skilled Intervention: Patient was educated in proper exercise technique and purpose for exercises. Skilled judgment was provided in selection of appropriate interventions. Correct performance of therapeutic exercises was facilitated with verbal and tactile cuing. Manual Therapy: 1: STM to Phillip cervical paraspinals, upper traps and levator scap w/ patient in supine 2: Manual cervical stretching of Phillip upper traps, scalenes, levator scapulae, SCMs w/ patient in supine Skilled Intervention: Manual skills to improve joint mobility, ROM, and decrease pain. Utilized anatomy knowledge of the therapist, and assessment of patient's response to intervention. Billing Therapeutic Exercise Treatment Minutes: 30 Manual TherapyTreatment Minutes: 17 Total Treatment Time Minutes (timed/untimed): 47 Steve Chavez PT, DPT documented in this encounter [facility] 04-09-2023 History of Present illness Narrative Episode Visit Count: 1 Therapist That Will Accept/Oversee The Plan Of Care: Steve Chavez PT, DPT Start of Care Date: 04/09/23 Onset Date: 10/21/22 Plan of Care Certification Date: 04/09/23 Next Certification Due Date: 05/14/23 Patient Identified by Name and Date of : Yes REHABILITATION AND SPORTS THERAPY PHYSICAL THERAPY EVALUATION PLAN OF CARE: Assessment: Lou Oliver presents with chief complaint of cervical pain & weakness that interferes with cleaning, dressing, grooming, pulling, pushing, carrying, lifting, physical activities, recreational activities, walking in the community, use hand with arm at shoulder level (Yardwork/raking) . She presents with impairments in ADL's, balance, independence in exercise, joint mobility, overall function, posture, range of motion, soft tissue healing, strength, symptom management, and tissue tenderness. PROMIS (Patient-Reported Outcomes Measurement Information System) scores were reviewed and self efficacy domain identified as within normal limits. Prognosis for therapy is Fair due to: clinical presentation, chronic nature of impairments (Parkinson's Disease) . She will benefit from skilled therapy services to meet the goals established for this plan of care as noted below. Goals for Episode of Care: created on 04/09/23 through 06/04/23 [place] in home exercise program. Patient will decrease pain rating by 2 points to meet minimal clinical important difference for numeric pain rating scale. Patient will demonstrate increase in cervical strength to 5/5 during manual muscle testing in order to improve function for basic self-care tasks and light functional tasks. Restore pain free cervical ROM by 10 degrees each direction to allow for improved posture. Patient will improve performance on Deep Neck Flexor Endurance Test to 20 seconds to demonstrate improved neuromuscular coordination & endurance. Patient will improve performance on Cervical Neck Extensor Endurance Test to 12-15 seconds to demonstrate improved cervical paraspinal strength to improve posture & function for prior functional tasks. Patient Goals: Decrease cervical pain. Return to walking exercise Planned Interventions, Frequency, and Duration: Current Frequency: 2x/week Duration: 4 weeks Total Number of Visits Planned: 8 Planned Treatment Interventions: Therapeutic exercise (14051), Neuromuscular re-education (49793), Manual therapy (63421), Therapeutic activities ([id number]), Self-group home management ([id number]), Patient/Family/Caregiver Education, Body Mechanics Training Patient demonstrates good understanding of plan of care and treatment. The above goals and plan of care were discussed and agreed upon by patient/family. SUBJECTIVE: Lou Oliver is a 77 year old female seen today for Pt. with cheif complaint of Phillip posterior cervical pain (feels L worse than right). This concordant next pain has been ongoing for the past 3 years. She has received injections, had pain mgmt for it and completed PT prior (which she states helped initiallly), however over time condition seems to decline. Her major issue is her weakness in the neck causing the a forward flexing posture, [id number]. She is unable to hold her head up for prolonged time as it just feels to heavy, often she holds her head up with her UEs. Pt. has Parkinson's and attends classes for it and tries to stay as active as possible, but the neck pain/heaviness/posturing has limited her everyday function. Patient Goals: Decrease cervical pain. Return to walking exercise Functional Limitations: cleaning, dressing, grooming, pulling, pushing, carrying, lifting, physical activities, recreational activities, walking in the community, use hand with arm at shoulder level (Yardwork/raking) Prior Level of Function: Independent without limitations Relevant History Past Relevant Medical Conditions: Parkinson's Disease, Neuropathy Right or Left Handed: Left Employment: Retired Recreation / Current Exercise: Delay the Disease 3x a week Parkinson's Class Home Environment Patient Lives With: Self/Alone Assistance Available: Part-Time (Family) Home Type: Ranch Entry To Home: No Stairs Equipment Owned: Cane (Neck Brace) Intake Information: Prescription present Previous Treatment: Physical Therapy , Pain Management , Injections (Neck Brace, PD Classes) Falls Interview: No positive findings with falls interview Spine History Symptoms Location at Onset: Neck (Posterior) Symptoms Since Onset: Worsening Pain is Worse Always: Sitting, Standing, Walking Pain is Better Always: Lying, Rest Sleeping Position: Supine (Propped head) Sleep Affected by Pain: Not affected by pain Pain: Pain Pain Level: 7 Pain Location: Neck Description: Throbbing, Pressure (Heavy) Frequency: Intermittent, With movement Post Treatment Pain Post Treatment Pain Level: No Change Post Treatment Pain Location: Neck Post Treatment Pain Description: Sore PROMIS Scales Higher is Better 04/06/2023 03/18/2023 11/16/2022 Phys Func - Score - 38 (moderate dysfunction) 41 (mild dysfunction) Phys Func - Percentile - 12 % 18 % Self-Eff Symptom - Score 41 (Average) - - Self-Eff Symptom - Percentile 18 % - - T-scores: mean of general population = 50. 5 points is clinically meaningfully difference Percentiles provide an indication of how the patient's score ranks in relation to the general population. Higher percentile rankings indicate better function/quality of life. 50th percentile is the average of the general population and indicates half of respondents had a worse score. OBJECTIVE MEASURES WITH LEVEL OF FUNCTION: Posture / Alignment Posture: Forward head, Increased thoracic kyphosis, Rounded shoulders, Poor Tragus to wall (inches): 8 inches UE Observations: Dowager's hump/hyperkyphosis of the spine Sitting Posture: Poor Spine Observations R Cervical Spine Palpation Tenderness: Paraspinals, Upper trapezius, Levator scapulae L Cervical Spine Palpation Tenderness: Paraspinals, Upper trapezius, Levator scapulae Cervical Spine ROM Cervical ROM : Measurement AROM Cervical Flexion AROM (degrees) : 50 Degrees Cervical Extension AROM (degrees) : 10 Degrees Cervical Side-Bend Right AROM (degrees): 35 Degrees Cervical Side-Bend Left AROM (degrees) : 35 Degrees Cervical Rotation Right AROM (degrees) : 40 Degrees Cervical Rotation Left AROM (degrees) : 40 Degrees UE AROM R UE AROM: WNL L UE AROM: WNL UE and Cervical Strength Strength Tested: Cervical, Myotome Cervical/Shoulder Cervical Strength: Flex (4/5), Ext (3/5), L Rot & side-bend (4/5), R Rot & side-bend (4/5) R UE Strength: Grossly 4+/5 L UE Strength: Grossly 4+/5 R Shoulder Shrug (C4): 4/5 L Shoulder Shrug (C4): 4/5 Special Tests - Cervical Cervical Special Tests: Flexion-Rotation Test Flexion-Rotation Test: Right Negative, Left Negative Special Tests - Hip and Spine Special Test Comments: Deep Neck Flexor Endurance Test (15 sec), Cervical Neck Extensor Endurance Test (7 sec). Functional Performance Test Results 30 Second Chair Stand Test: 8 reps Timed Up and Go (sec): 9.1 sec 4 Stage Balance Test Narrow base of support (sec): 10 sec Semi-tandem base of support (sec): 10 sec Tandem base of support (sec): 6.81 sec Single leg stance - right (sec): 0 sec (Did not acheive this stage) Single leg stance - left (sec): 0 sec (Did not acheive this stage) Education: Education Learning Preferences: Demonstration, Explanation Barriers: None Learning/educational needs: Home exercise program, Plan of Care, Posture, Health promotion, Safety, Lifestyle changes, Body Mechanics TREATMENT: PT Treatment Interventions: Manual Therapy, Therapeutic Exercise, Self-Half-Way Management Evaluation Evaluation Therapeutic Exercise: 1: *Supine Chin Tucks: 2x10 3-5 hold 2: *Isometric C/S Extension: 2x10 5 hold 3: *Pec Doorway Stretch: 2x30 ea. 4: Seated Upper Trap Stretch: 2x30 ea. (Pt. didn't tolerate, will hold off for now and revisit) 5: *Active cervical extension ROM w/ 3 eccentric lower into neutral: 2x10 6: *Seated thoracic extension against chair back: 2x10 7: *Shoulder squeezes:2x15 Skilled Intervention: Patient was educated in proper exercise technique and purpose for exercises. Skilled judgment was provided in selection of appropriate interventions. Provided written instruction for home exercise program to facilitate proper performance and compliance. Correct performance of therapeutic exercises was facilitated with verbal and tactile cuing. Manual Therapy: 1: STM to Phillip cervical paraspinals, upper traps and levator scap w/ patient in supine 2: Manual cervical stretching of Phillip upper traps, scalenes & SCMs w/ patient in supine Skilled Intervention: Manual skills to improve joint mobility, ROM, and decrease pain. Utilized anatomy knowledge of the therapist, and assessment of patient's response to intervention. Self-Half-Way Management: 1: Education on anatomy & physiology of condition, shortening of cervical flexors and lengthening/weak cervical extensors altering her posture, along with Parksinon's disease progression and how that can impact current deficits. Education on POC, HEP, posture, sleeping position, home environment safety & setup due to patients balance concerns. Skilled Intervention: Skilled judgment in the selection of proper modification for activity of daily living/home management based on clinical presentation, deficits, and needs. Reviewed patient specific diagnosis in relation to activities of daily living/home management. 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 Tenant Selector: DOMENIC Transcribe Date/Time: Apr 08 2023 3:48P Dictated by : ANA MARIA JALLOH MD This examination was interpreted and the report reviewed and electronically signed by: ANA MARIA JALLOH MD on Apr 08 2023 3:55PM EST DIVISION OF RADIOLOGY 04-05-2023 History of Present illness Narrative Radiology Service Progress Note PATIENT NAME: Lou Oliver DATE OF SERVICE: April 05, 2023 TIME: 2:44 PM PATIENT IDENTITY VERIFICATION COMPLETED USING TWO (2) IDENTIFIERS: Name and Date of confirmed by patient verbally. FALL SCREENING: Has the patient had 2 falls in the last year or 1 fall with injury or currently using an Ambulatory Assistive Device (Walker, Cane, Wheelchair, Crutches, etc.)? No PATIENT GENDER DATA: Female. status: : No status: NO. PATIENT RELEVANT IMPLANT DATA REVIEWED: Not Applicable RADIOLOGY DEPARTMENT: General X-ray: Exam(s) Completed: Spine X-Ray(s): Cervical AP / LAT / OBL and Thoracic PERIPHERAL IV DATA: Not applicable SIGNED BY: RT Heidi(R) April 05, 2023 2:44 PM documented in this encounter [facility] 04-05-2023 History of Present illness Narrative Reason for Visit Patient presents with: Recheck: 3 months Lou Oliver is a 77 year old female who presents here today for Above Complaints.. Health Maintenance DTAP,TDAP,TD(1 - Tdap) SHINGRIX VACCINE(2 of 3) ADVANCE DIRECTIVE DISCUSSION HPI Neck pain: since her parkinsons diagnosis, she has been having a stoop in her neck , she is mostly having a posture with the chin touching the chest and it is become increasing difficult to hold it up. And recently there is more pain than before. The pain is not constant, certain movements and positions are triggering the pain. The pain is a 8/10 most of the time It gets hard for her to concentrate on anything when she has the pain., changing the position and heat relives it. Had been to pain management who gave injections that did not help . She did have Physical Therapy. And uses a collar occasionally. She does stoop her shoulders too. She is sleeping on recliner once in a while but not on purpose. Last week she had been to see Dr Connolly and her medication regimen got tritrated but it is too early to say how she is doing. The neck pain is caused her to not do as much as before, cannot do yard work, anything that involves heavy lifting, House hold chores takes her a while to do. She cannot ride her bycyle any more. Activities of daily living are intact. Sill able to drive to [facility]. Doing meals and wheels , does not eat as much because of nasuea. She does not miss her thyroid. Patient is very good about her medicine. No problem-specific Assessment & Plan notes found for this encounter. PAST MEDICAL HISTORY Diagnosis Date Diverticulosis of colon (without mention of hemorrhage) Essential hypertension, benign 04/04/2007 Mental disorder Migraine without aura 04/04/2007 Parkinson disease (HCC) Unspecified hypothyroidism 04/04/2007 PAST SURGICAL HISTORY Procedure Laterality Date DELIVERY ONLY , low cervical x2 COLONOSCOPY FLX DX W/COLLJ SPEC WHEN PFRMD 1994 Colonoscopy COLONOSCOPY FLX DX W/COLLJ SPEC WHEN PFRMD 04/07/2012 Colonoscopy COLONOSCOPY FLX DX W/COLLJ SPEC WHEN PFRMD 06/17/2019 Colonoscopy DILATION & CURETTAGE DX&/THER NONOBSTETRIC 09/1982 Dilation & curettage PAST SURGICAL HISTORY OF 02/1996 EMB TONSILLECTOMY & ADENOIDECTOMY <AGE 13 T/A (under age 13 years) FAMILY HISTORY Problem Relation Age of Onset Hypertension Mother Arthritis Mother Heart disease Mother Diabetes Father adult onset Emphysema Father Cancer Father lung Asthma Daughter Allergic Rhinitis Daughter Diabetes Paternal Grandmother Ischemic Heart Disease Maternal Grandfather Psychiatry Maternal Grandmother Social History Tobacco Use Smoking status: Never Smokeless tobacco: Never Tobacco comments: Father smoked in childhood home. 2 spouses were smokers. Vaping Use Vaping Use: Never used Substance Use Topics Alcohol use: No Drug use: No Past medical history, appointments, medications, allergies reviewed. Pertinent Lab/Diagnostic Studies are reviewed and discussed today Current Outpatient Medications: carbidopa-levodopa (SINEMET) 25-100 mg per tablet carbidopa-levodopa CR (SINEMET CR) 50-200 mg per tablet gabapentin (NEURONTIN) 100 mg capsule pravastatin (PRAVACHOL) 20 mg tablet sertraline (ZOLOFT) 50 mg tablet Cholecalciferol, Vitamin D3, 50 mcg (2,000 unit) cap levothyroxine (SYNTHROID) 75 mcg tablet diclofenac sodium (VOLTAREN) 1 % topical gel docusate sodium (COLACE ORAL) THERAPEUTIC MULTIVITAMIN TAB Review of Systems CONSTITUTIONAL: No fevers, chills night sweats, unintended weight loss CARDIOVASCULAR: No chest pain, dyspnea, palpitations, orthopnea, PND, ankle edema. PULM: No dyspnea, unexplained cough. GI: No dysphagia/odynophagia, problematic reflux, constipation, diarrhea, changes in stool habits, hematochezia, melena. : No new urinary complaints, including dysuria, gross hematuria or pyuria. NEURO: No new balance problems, peripheral weakness/paresthesias or numbness of concern. Physical Exam BP 124/72 Pulse 74 Temp 36.4 C (97.5 F) (Left Tympanic) Resp 16 Wt 66.7 kg (147 lb) SpO2 97% BMI 24.84 kg/m General appearance: Well appearing, alert, in no acute distress, well nourished. Skin: Skin color, texture, turgor normal, no suspicious rashes or lesions Head: Normocephalic, no masses, lesions, tenderness or abnormalities Eyes: Anicteric sclera. Pupils are equally round and reactive to light. Extraocular movements are intact. Lungs: Lungs clear to auscultation. No wheezing, rhonchi, rales Heart: RRR without murmur, gallop, or rubs. Extremities: No deformities, edema, skin discoloration, clubbing or cyanosis. Good capillary refill. ASSESSMENT/PLAN: 1. Neck pain - ICD9: 723.1, ICD10: M54.2 (primary diagnosis) - XR CERV OTHER 4V AP/LAT/OBL - CONSULT TO PHYSICAL THERAPY 2. Neck muscle weakness - ICD9: 723.9, ICD10: M53.82 - CONSULT TO PHYSICAL THERAPY 3. Kyphosis of thoracic region, unspecified kyphosis type - ICD9: 737.10, ICD10: M40.204 - XR THORACIC LIMITED 2V AP/LAT Marvel Rizzo MD documented in this encounter [facility] 03-25-2023 Instructions Rnajan Connolly Jr., MD - 03/25/2023 3:53 PM EDT Sinemet 25/100mg dose: -Take 1.5 tabs at 730AM (after eating something). -Take 1.5 tabs at 1130AM. -Take 1.5 tabs at 330PM (after lunch). -Take 1.5 tabs at 730 PM 2. Sinemet CR 50/200mg dose: -Take 1 tablet with your 730AM dose of short acting Sinemet. -Take 1 tablet at 10-11 PM. documented in this encounter [facility] 03-25-2023 History of Present illness Narrative ESTABLISHED PATIENT VISIT CHIEF COMPLAINT: Follow Up HISTORY OF PRESENT ILLNESS: Lou Oliver is a 77 year old female, BMI 25.05 kg/m2 with a PMH significant for and per last office visit of 11/23/22: 1. Parkinson disease (HCC) - ICD9: 332.0, ICD10: G20 (primary diagnosis) Overall doing well, with no evidence of decline in condition based on today's exam. Will make no changes to Sinemet dosing as above. Encouraged continued exercise and participation in the stop the disease program. Will need follow up during this coming summer or sooner prn. 2. 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 Discussed treatment options including starting with a trial of melatonin. Pt declines at this time. Explained risks of injury with RBD. Pt and daughter in full understanding and will contact us if condition worsens at which time will start on melatonin with possible transition to Klonopin if necessary. 3. Small fiber neuropathy - ICD9: 356.9, ICD10: G62.9 Stable. Will continue gabapentin 100mg TID as above. NO side effects. 4. Intracranial meningioma (HCC) - ICD9: 225.2, ICD10: D32.0 Encouraged follow up with neurosurgery. Patient wanted to be evaluated in her off phase, but feels good right now. States hard to explain to people the difference of feeling normal and that of a different person. States she notices this occurring between all her doses of Sinemet. Feels good for 3 hours and then feels crappy again . Currently taking Sinemet 25/100mg - 730AM, 1030AM, 130PM, 430PM, 830PM, and then takes the CR 50/200 at bedtime. States balance is not that good anymore. States she is doing therapy through [facility]Delay [facility] Disease. Active at home. Some nausea with Sinemet. Eats small meals through the day. No acting out dreams per pt since last visit. Pain in feet stable on gabapentin 100mg TID. REVIEW OF SYSTEMS GENERAL:No weight loss, malaise or fevers. HEENT:Negative for frequent or significant headaches, No changes in hearing or vision, no nose bleeds or other nasal problems NECK:Negative for lumps, goiter, pain and significant neck swelling RESPIRATORY: Negative for cough, wheezing or shortness of breath. CARDIOVASCULAR: Negative for chest pain, leg swelling or palpitations. GASTROINTESTINAL: Negative for abdominal discomfort, blood in stools or black stools or change in bowel habits GENITOURINARY: No history of dysuria, frequency or incontinence MUSCULOSKELETAL: Negative for joint pain or swelling, back pain or muscle pain. NEUROLOGIC:See HPI. LAB/IMAGING: Those performed since patient's last visit have been reviewed. WBC (k/uL) Date Value 05/04/2022 3.79 RBC (m/uL) Date Value 05/04/2022 3.99 Hemoglobin (g/dL) Date Value 05/04/2022 12.3 Hematocrit (%) Date Value 05/04/2022 38.2 MCV (fL) Date Value 05/04/2022 95.7 MCH (pg) Date Value 05/04/2022 30.8 MCHC (g/dL) Date Value 05/04/2022 32.2 RDW-CV (%) Date Value 05/04/2022 11.9 Platelet Count (k/uL) Date Value 05/04/2022 226 MPV (fL) Date Value 05/04/2022 9.8 Glucose (mg/dL) Date Value 03/21/2023 94 BUN (mg/dL) Date Value 03/21/2023 19 Creatinine (mg/dL) Date Value 03/21/2023 0.74 Sodium (mmol/L) Date Value 03/21/2023 139 Potassium (mmol/L) Date Value 03/21/2023 4.1 Chloride (mmol/L) Date Value 03/21/2023 105 CO2 (mmol/L) Date Value 03/21/2023 24 Protein, Total (g/dL) Date Value 05/04/2022 7.3 Albumin (g/dL) Date Value 05/04/2022 4.6 Calcium, Total (mg/dL) Date Value 03/21/2023 9.2 Alkaline Phosphatase (U/L) Date Value 05/04/2022 96 Bilirubin, Total (mg/dL) Date Value 05/04/2022 0.8 AST (U/L) Date Value 05/04/2022 18 ALT (U/L) Date Value 05/04/2022 <5 (L) Hep C Antibody IA (no units) Date Value 08/01/2016 Negative MEDICATIONS: gabapentin (NEURONTIN) 100 mg capsule Take 1 capsule by mouth three times daily for 180 days. carbidopa-levodopa (SINEMET) 25-100 mg per tablet Take 1 tablet by mouth five times daily. . carbidopa-levodopa CR (SINEMET CR) 50-200 mg per tablet TAKE 1 TABLET BY MOUTH AT BEDTIME (1130PM) pravastatin (PRAVACHOL) 20 mg tablet Take 1 tablet by mouth daily at bedtime. Cholecalciferol, Vitamin D3, 50 mcg (2,000 unit) cap Take 2,000 Units by mouth once daily. levothyroxine (SYNTHROID) 75 mcg tablet Take 1 tablet by mouth once daily. Take on empty stomach. For Thyroid diclofenac sodium (VOLTAREN) 1 % topical gel APPLY 2 GRAMS TO AFFECTED AREA 4 TIMES A DAY docusate sodium (COLACE ORAL) Take by mouth as needed. sertraline (ZOLOFT) 50 mg tablet Take 1 tablet by mouth once daily. THERAPEUTIC MULTIVITAMIN TAB Take by mouth. (Patient not taking: No sig reported) HISTORIES PAST MEDICAL HISTORY Diagnosis Date Diverticulosis of colon (without mention of hemorrhage) Essential hypertension, benign 04/04/2007 Mental disorder Migraine without aura 04/04/2007 Parkinson disease (HCC) Unspecified hypothyroidism 04/04/2007 FAMILY HISTORY Problem Relation Age of Onset Hypertension Mother Arthritis Mother Heart disease Mother Diabetes Father adult onset Emphysema Father Cancer Father lung Asthma Daughter Allergic Rhinitis Daughter Diabetes Paternal Grandmother Ischemic Heart Disease Maternal Grandfather Psychiatry Maternal Grandmother SOCIAL HISTORY Social History Tobacco Use Smoking status: Never Smokeless tobacco: Never Tobacco comments: Father smoked in childhood home. 2 spouses were smokers. Vaping Use Vaping Use: Never used Substance Use Topics Alcohol use: No Drug use: No PHYSICAL EXAMINATION BP 101/66 Pulse 77 Temp 36.5 C (97.7 F) Resp 18 Wt 67.2 kg (148 lb 3.2 oz) SpO2 97% BMI 25.05 kg/m (Sinemet taken 1 hour before visit) GENERAL EXAM: General appearance: NAD, pleasant. HEENT: NC/AT, nasal congestion absent, no oral lesions, membranes moist. NECK: No masses, supple. Lungs: CTA bilaterally. CV: RRR nl S1, S2. Extr: No cyanosis, clubbing or edema. Skin: Cool to touch. NEUROLOGICAL EXAM: General: Awake, alert, oriented x3 (person,place,time), speech fluent, no dysarthria; comprehension, naming, repetition intact. Short and correction memory intact. Fund of knowledge grossly normal by MOCA. CN: PERRL, EOMI and without nystagmus, VFF to confrontation, facial sensation and strength are normal and symmetric, hearing is intact to finger rub bilaterally, palate and tongue movements are intact and symmetric. SCM and trapezius strength normal. Motor: Normal tone, bulk and strength (5/5) bilaterally (throughout extremities x4). Coordination: FNF, FALLON, HTS intact. No tremors. Sensation: Light touch intact throughout. No evidence of neglect. Gait: Narrow based and stable with normal stride and arm swing. ++ Retropulsion. Assessment and Plan: ASSESSMENT/PLAN: 1. Parkinson disease (HCC) - ICD9: 332.0, ICD10: G20 (primary diagnosis) Patient with increasing on-off effect of Sinemet as noted above. Most of visit was spent focused on this condition and discussing ways to treat. We did discuss meds such as Rytary and Comtan but pt concerned about costs of such and/or increased number of meds needing to be taken. After further discussion, attempt will be made to take Sinemet less frequent through the day but at a higher dose with superimposed dosing of Sinemet CR in attempt to avoid complete off effect of medication. Dosing as follows: Sinemet 25/100mg dose: -Take 1.5 tabs at 730AM (after eating something). -Take 1.5 tabs at 1130AM. -Take 1.5 tabs at 330PM (after lunch). -Take 1.5 tabs at 730 PM 2. Sinemet CR 50/200mg dose: -Take 1 tablet with your 730AM dose of short acting Sinemet. -Take 1 tablet at 10-11 PM. SE and ADRs d/w pt and her daughter. They agree with plan. 2. 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 No additional meds at this time per patient request. Warned of injury risks with such disorder and d/w them both treatment options. Pt will consider if symptoms worsen. For now no additional meds. 3. Small fiber neuropathy - ICD9: 356.9, ICD10: G62.9 Stable on gabapentin 100mg TID. No changes in dosing today. 4. Intracranial meningioma (HCC) - ICD9: 225.2, ICD10: D32.0 Encouraged neurosurgery follow up. Per pt contacted by neurosurgeons regarding upcoming MRI and need to schedule. Ranjan Connolly MD I spent a total of 47 minutes on the date of the service which included preparing to see the patient, [id number] patient care, completing clinical documentation, obtaining and/or reviewing separately obtained history, performing a medically appropriate examination, counseling and educating the patient/family/caregiver, ordering medications, tests, or procedures, and communicating results to the patient/family/caregiver. documented in this encounter [facility] 12-28-2022 History of Present illness Narrative Reason for Visit Patient presents with: Follow Up Lou Oliver is a 77 year old female who presents here today for Above Complaints.. Health Maintenance BP CONTROLLED (<130/80) DTAP,TDAP,TD(1 - Tdap) SHINGRIX VACCINE(2 of 3) ADVANCE DIRECTIVE DISCUSSION DEPRESSION ASSESSMENT HPI Patient had a meningioma radiation procedure. Since them her balance is def not as it used to be. Saw Dr Connolly recently, no change in medication. They were pleased with how things were going on. Exercises and classes for delay the disease has helped her a lot. She is going to join a move with me classes She is taking the zoloft and patient notes it has helped her a lot. HPL: Reviewed test results with patient , takes medications regularly , does not report side effects. Conscious to avoid red meats, full fat dairy and its by products. Exercising 3 to 5 times a week. Patient has been taking her vit d with food. No problem-specific Assessment & Plan notes found for this encounter. PAST MEDICAL HISTORY Diagnosis Date Diverticulosis of colon (without mention of hemorrhage) Essential hypertension, benign 04/04/2007 Mental disorder Migraine without aura 04/04/2007 Parkinson disease (HCC) Unspecified hypothyroidism 04/04/2007 PAST SURGICAL HISTORY Procedure Laterality Date DELIVERY ONLY , low cervical x2 COLONOSCOPY FLX DX W/COLLJ SPEC WHEN PFRMD 1994 Colonoscopy COLONOSCOPY FLX DX W/COLLJ SPEC WHEN PFRMD 04/07/2012 Colonoscopy COLONOSCOPY FLX DX W/COLLJ SPEC WHEN PFRMD 06/17/2019 Colonoscopy DILATION & CURETTAGE DX&/THER NONOBSTETRIC 09/1982 Dilation & curettage PAST SURGICAL HISTORY OF 02/1996 EMB TONSILLECTOMY & ADENOIDECTOMY <AGE 12 T/A (under age 13 years) FAMILY HISTORY Problem Relation Age of Onset Hypertension Mother Arthritis Mother Heart disease Mother Diabetes Father adult onset Emphysema Father Cancer Father lung Asthma Daughter Allergic Rhinitis Daughter Diabetes Paternal Grandmother Ischemic Heart Disease Maternal Grandfather Psychiatry Maternal Grandmother Social History Tobacco Use Smoking status: Never Smokeless tobacco: Never Tobacco comments: Father smoked in childhood home. 2 spouses were smokers. Vaping Use Vaping Use: Never used Substance Use Topics Alcohol use: No Drug use: No Past medical history, appointments, medications, allergies reviewed. Pertinent Lab/Diagnostic Studies are reviewed and discussed today Current Outpatient Medications: gabapentin (NEURONTIN) 100 mg capsule carbidopa-levodopa (SINEMET) 25-100 mg per tablet carbidopa-levodopa CR (SINEMET CR) 50-200 mg per tablet pravastatin (PRAVACHOL) 20 mg tablet sertraline (ZOLOFT) 50 mg tablet Cholecalciferol, Vitamin D3, 50 mcg (2,000 unit) cap levothyroxine (SYNTHROID) 75 mcg tablet diclofenac sodium (VOLTAREN) 1 % topical gel docusate sodium (COLACE ORAL) THERAPEUTIC MULTIVITAMIN TAB Review of Systems CONSTITUTIONAL: No fevers, chills night sweats, unintended weight loss CARDIOVASCULAR: No chest pain, dyspnea, palpitations, orthopnea, PND, ankle edema. PULM: No dyspnea, unexplained cough. GI: No dysphagia/odynophagia, problematic reflux, constipation, diarrhea, changes in stool habits, hematochezia, melena. : No new urinary complaints, including dysuria, gross hematuria or pyuria. NEURO: No new balance problems, peripheral weakness/paresthesias or numbness of concern. Physical Exam BP 122/66 (BP Site: Left Arm, BP Position: Sitting, BP Cuff Size: Large Adult) Pulse 74 Temp 36.7 C (98 F) Resp 12 Ht 163.8 cm (5' 4.5 ) Wt 69.4 kg (153 lb) SpO2 97% BMI 25.86 kg/m General appearance: Well appearing, alert, in no acute distress, well nourished. Skin: Skin color, texture, turgor normal, no suspicious rashes or lesions Head: Normocephalic, no masses, lesions, tenderness or abnormalities Eyes: Anicteric sclera. Pupils are equally round and reactive to light. Extraocular movements are intact. Lungs: Lungs clear to auscultation. No wheezing, rhonchi, rales Heart: RRR without murmur, gallop, or rubs. Extremities: No deformities, edema, skin discoloration, clubbing or cyanosis. Good capillary refill. ASSESSMENT/PLAN: 1. Recurrent major depressive disorder, remission status unspecified (HCC) - ICD9: 296.30, ICD10: F33.9 (primary diagnosis) Well controlled on the zoloft 2. Intracranial meningioma (HCC) - ICD9: 225.2, ICD10: D32.0 3. Parkinson disease (HCC) - ICD9: 332.0, ICD10: G20 It seems to be better controled with the classes and better medication management 4. Essential hypertension, benign - ICD9: 401.1, ICD10: I10 - good control - Recommended regular aerobic exercise. - Recommend home blood pressure monitoring, to bring results in on next visit 5. Mixed hyperlipidemia - ICD9: 272.2, ICD10: E78.2 - good control - Continue current medication. Marvel Rizzo MD documented in this encounter [facility] 11-23-2022 History of Present illness Narrative ESTABLISHED PATIENT VISIT CHIEF COMPLAINT: Follow Up HISTORY OF PRESENT ILLNESS: Lou Oliver is a 77 year old female, with a PMH significant for and per last office visit of 07/26/22 with Erica Madden BUCKET PUSHER: G20 Parkinson disease (HCC) (primary encounter diagnosis) Comment: Pt reports concerns today similar to those at time of last OV. Neurological exam remains stable with only PD finding again being retropulsion. Gait is stable on ambulation. Only SE with medication is mild nausea which she reports has been chronic. Discussed medication and as there has been no changes on exam since time of previous visit, will continue with current Sinemet regimen. See below. -Sinemet 25/100mg 1 tab at 730AM, 1030AM, 1230PM, 430PM, 830PM -Sinemet CR 50/200 1 tab at midnight. She continues to participate in delay the disease and stays active at home. She denies falls and does use an assistive ambulatory device when needed. Discussed physical therapy for balance and she will notify the office following upcoming procedures if she feels she would like to proceed. G62.9 Small fiber neuropathy Comment: Numbness and tingling to both feet felt to be due to small fiber neuropathy. Past neuropathy lab work was unremarkable. Further evaluation discussed at time of last OV, however, pt deferred at that time. She was started on gabapentin 100mg TID and today she reports improvement in symptoms. Still noting mild n/t with occasional pain overnight, however, she feels symptoms are managed with current dose of medication. She denies SE. Will continue as previously prescribed. RF provided. D32.0 Intracranial meningioma (HCC) Comment: Following with neurosurgery. Plan is for Gamma Knife later this month. Continue follow up as scheduled. Patient reports hates having PD. However, trying to accept the fact that she is going to have it. Constant resting tremor of the RLE which limits driving. States medication (Sinemet) is good still for about 3 hours. No side effects. Still some nausea, but can occur anytime of day. Does have spasms in toes. Feels gabapentin still controlling numbness -- I am no longer constantly thinking about me feet because they are bothering me. No side effects on gabapentin. Sleep soundly for 5 hours nightly. Breakthrough RBD. S/p gamma knife on meningioma with no reported complications. Still living alone and independent. REVIEW OF SYSTEMS GENERAL:No weight loss, malaise or fevers. HEENT:Negative for frequent or significant headaches, No changes in hearing or vision, no nose bleeds or other nasal problems NECK:Negative for lumps, goiter, pain and significant neck swelling RESPIRATORY: Negative for cough, wheezing or shortness of breath. CARDIOVASCULAR: Negative for chest pain, leg swelling or palpitations. GASTROINTESTINAL: Negative for abdominal discomfort, blood in stools or black stools or change in bowel habits GENITOURINARY: No history of dysuria, frequency or incontinence MUSCULOSKELETAL: Negative for joint pain or swelling, back pain or muscle pain. NEUROLOGIC:See HPI. LAB/IMAGING: Those performed since patient's last visit have been reviewed. WBC (k/uL) Date Value 05/04/2022 3.79 RBC (m/uL) Date Value 05/04/2022 3.99 Hemoglobin (g/dL) Date Value 05/04/2022 12.3 Hematocrit (%) Date Value 05/04/2022 38.2 MCV (fL) Date Value 05/04/2022 95.7 MCH (pg) Date Value 05/04/2022 30.8 MCHC (g/dL) Date Value 05/04/2022 32.2 RDW-CV (%) Date Value 05/04/2022 11.9 Platelet Count (k/uL) Date Value 05/04/2022 226 MPV (fL) Date Value 05/04/2022 9.8 Glucose (mg/dL) Date Value 05/04/2022 93 BUN (mg/dL) Date Value 05/04/2022 15 Creatinine (mg/dL) Date Value 05/04/2022 0.78 Sodium (mmol/L) Date Value 05/04/2022 138 Potassium (mmol/L) Date Value 05/04/2022 4.1 Chloride (mmol/L) Date Value 05/04/2022 104 CO2 (mmol/L) Date Value 05/04/2022 25 Protein, Total (g/dL) Date Value 05/04/2022 7.3 Albumin (g/dL) Date Value 05/04/2022 4.6 Calcium, Total (mg/dL) Date Value 05/04/2022 9.6 Alkaline Phosphatase (U/L) Date Value 05/04/2022 96 Bilirubin, Total (mg/dL) Date Value 05/04/2022 0.8 AST (U/L) Date Value 05/04/2022 18 ALT (U/L) Date Value 05/04/2022 <5 (L) Hep C Antibody IA (no units) Date Value 08/01/2016 Negative MEDICATIONS: gabapentin (NEURONTIN) 100 mg capsule Take 1 capsule by mouth three times daily for 90 days. carbidopa-levodopa CR (SINEMET CR) 50-200 mg per tablet TAKE 1 TABLET BY MOUTH AT BEDTIME (1130PM) carbidopa-levodopa (SINEMET) 25-100 mg per tablet Take 1 tablet by mouth five times daily. . pravastatin (PRAVACHOL) 20 mg tablet Take 1 tablet by mouth daily at bedtime. sertraline (ZOLOFT) 50 mg tablet Take 1 tablet by mouth once daily. Cholecalciferol, Vitamin D3, 50 mcg (2,000 unit) cap Take 2,000 Units by mouth once daily. levothyroxine (SYNTHROID) 75 mcg tablet Take 1 tablet by mouth once daily. Take on empty stomach. For Thyroid diclofenac sodium (VOLTAREN) 1 % topical gel APPLY 2 GRAMS TO AFFECTED AREA 4 TIMES A DAY docusate sodium (COLACE ORAL) Take by mouth as needed. THERAPEUTIC MULTIVITAMIN TAB Take by mouth. (Patient not taking: No sig reported) HISTORIES PAST MEDICAL HISTORY Diagnosis Date Diverticulosis of colon (without mention of hemorrhage) Essential hypertension, benign 04/04/2007 Mental disorder Migraine without aura 04/04/2007 Parkinson disease (HCC) Unspecified hypothyroidism 04/04/2007 FAMILY HISTORY Problem Relation Age of Onset Hypertension Mother Arthritis Mother Heart disease Mother Diabetes Father adult onset Emphysema Father Cancer Father lung Asthma Daughter Allergic Rhinitis Daughter Diabetes Paternal Grandmother Ischemic Heart Disease Maternal Grandfather Psychiatry Maternal Grandmother SOCIAL HISTORY Social History Tobacco Use Smoking status: Never Smokeless tobacco: Never Tobacco comments: Father smoked in childhood home. 2 spouses were smokers. Vaping Use Vaping Use: Never used Substance Use Topics Alcohol use: No Drug use: No PHYSICAL EXAMINATION Blood pressure 124/82, pulse 78, temperature 36.6 C (97.8 F), resp. rate 16, weight 68.3 kg (150 lb 9.6 oz), SpO2 100 %. GENERAL EXAM: General appearance: NAD, pleasant. HEENT: NC/AT, nasal congestion absent, no oral lesions, membranes moist. NECK: ROM nml. Lungs: CTA bilaterally. CV: RRR nl S1, S2 Extr: No cyanosis, clubbing or edema. Skin: Cool to touch. NEUROLOGICAL EXAM: General: Awake, alert, oriented x3 (person,place,time), speech fluent, no dysarthria; comprehension, naming, repetition intact. CN: PERRL, EOMI and without nystagmus, VFF to confrontation, facial sensation and strength are normal and symmetric, hearing is intact, palate and tongue movements are intact and symmetric. SCM and trapezius strength normal. Motor: Normal tone, bulk and strength (5/5) bilaterally (throughout extremities x4). Coordination: FNF, FALLON, HTS intact. No tremors. Sensation: Light touch intact throughout. No evidence of neglect. Gait: No issues rising without upper exts. Stable gait, Normal stride and arm swing. +Retropulsion on pull testing. Romberg normal. Assessment and Plan: ASSESSMENT/PLAN: 1. Parkinson disease (HCC) - ICD9: 332.0, ICD10: G20 (primary diagnosis) Overall doing well, with no evidence of decline in condition based on today's exam. Will make no changes to Sinemet dosing as above. Encouraged continued exercise and participation in the stop the disease program. Will need follow up during this coming summer or sooner prn. 2. 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 Discussed treatment options including starting with a trial of melatonin. Pt declines at this time. Explained risks of injury with RBD. Pt and daughter in full understanding and will contact us if condition worsens at which time will start on melatonin with possible transition to Klonopin if necessary. 3. Small fiber neuropathy - ICD9: 356.9, ICD10: G62.9 Stable. Will continue gabapentin 100mg TID as above. NO side effects. 4. Intracranial meningioma (HCC) - ICD9: 225.2, ICD10: D32.0 Encouraged follow up with neurosurgery. Ranjan Connolly MD I spent a total of 35 minutes on the date of the service which included preparing to see the patient, [id number] patient care, completing clinical documentation, obtaining and/or reviewing separately obtained history, performing a medically appropriate examination, counseling and educating the patient/family/caregiver, and ordering medications, tests, or procedures. PDMP website checked and validated. All prescriptions have been APPROPRIATELY filled. No suspicious activity was identified. 11/23/2022 by Ranjan Connolly MD documented in this encounter [facility] 08-17-2022 History of Present illness Narrative LOU OLIVER [id number] 08/17/2022 [facility]isha De Olive[facility] STEREOTACTIC RADIOSURGERY (SRS) DAILY PROCEDURE NOTE DATE OF PROCEDURE: 08/17/2022 FRACTION NUMBER: 5 of 5 CUMULATIVE DOSE: 25 Gy (Out of a planned 25 Gy) DIAGNOSIS: 76 year old woman with L sphenoid wing/sphenoorbital meningioma discovered incidentally during workup for Parkinson's disease. PROCEDURE: Under my direct supervision the patient was set up on the treatment table and all treatment parameters were verified, including patient identity and treatment site. CBCT obtained which was co-registered using the treatment planning system. Adaptive replan was verified and approved. Once the beam was turned on, the patient position and target location were continuously monitored during delivery of the SRS using infrared tracking. At all points of decision-making with regard to patient setup, I conferred with the medical reimbursement specialist to approve the final setup. I was available throughout the SRS treatment to manage the execution of the treatment and make real-time adjustments in response to patient motion, target movement, or equipment issues to ensure accuracy and safety. The patient was evaluated by me after treatment and was discharged home in stable condition. DESCRIPTION OF IMMBOLIZATION/PROCE DURE: # ARCS/ALBERTS TREATED 5-point Orfit mask Dynamic Conformal Arcs Body Fix Inverse Plan Algorithm/IMRT Beams Abdominal compression-plunger device RapidArc Abdominal compression- belt device X Gamma Knife Active Breathing Coordinator (ABC) X ICON TREATMENT VOLUMES: GTV (Defined by neurosurgeon) DOSES: GTV total of 25 Gy PHYSICIST NAME: Jonathan Ron INTERVENTIONS: None ASSESSMENT/PLAN: Patient tolerated procedure well. We will continue as planned. Electronically Signed LUCIUS KEENE M.D. 25:01 PM documented in this encounter [facility] 08-16-2022 Instructions Ramona Flores RN - 08/16/2022 11:[address] Denny at [phone] documented in this encounter [facility] 08-16-2022 History of Present illness Narrative August 16, 2022 09 Lou Oliver here for treatment # 4 of 5 Transportation home verified: yes, with family Is patient on immunotherapy? No. 0925 Xanax 0.25 mg po given prior to Gamma Knife SRS per order of MD. 0924 Patient assisted to treatment room. Gamma Knife SRS begun. 1008 Gamma Knife Stereotactic Radiosurgery completed. 1015 Patient then discharged. Ramona Flores RN documented in this encounter [facility] 08-16-2022 History of Present illness Narrative LOU OLIVER [id number] 08/16/2022 [facility] Keisha De Oliveira [facility] STEREOTACTIC RADIOSURGERY (SRS) DAILY PROCEDURE NOTE DATE OF PROCEDURE: 08/16/2022 FRACTION NUMBER: 4 of 5 CUMULATIVE DOSE: 20 Gy (Out of a planned 25 Gy) DIAGNOSIS: 76 year old woman with L sphenoid wing/sphenoorbital meningioma discovered incidentally during workup for Parkinson's disease. PROCEDURE: Under my direct supervision the patient was set up on the treatment table and all treatment parameters were verified, including patient identity and treatment site. CBCT obtained which was co-registered using the treatment planning system. Adaptive replan was verified and approved. Once the beam was turned on, the patient position and target location were continuously monitored during delivery of the SRS using infrared tracking. At all points of decision-making with regard to patient setup, I conferred with the medical reimbursement specialist to approve the final setup. I was available throughout the SRS treatment to manage the execution of the treatment and make real-time adjustments in response to patient motion, target movement, or equipment issues to ensure accuracy and safety. The patient was evaluated by me after treatment and was discharged home in stable condition. DESCRIPTION OF IMMBOLIZATION/PROCE DURE: # ARCS/ALBERTS TREATED 5-point Orfit mask Dynamic Conformal Arcs Body Fix Inverse Plan Algorithm/IMRT Beams Abdominal compression-plunger device RapidArc Abdominal compression- belt device X Gamma Knife Active Breathing Coordinator (ABC) X ICON TREATMENT VOLUMES: GTV (Defined by neurosurgeon) DOSES: GTV total of 25 Gy PHYSICIST NAME: Jonathan Ron INTERVENTIONS: None ASSESSMENT/PLAN: Patient tolerated procedure well. We will continue as planned. Electronically Signed MANOHAR MULLER M.D. :02 PM documented in this encounter [facility] 08-15-2022 History of Present illness Narrative August 15, 2022 0940 Lou Oliver here for treatment # 3 of 5. Transportation home verified: yes, with daughter. Is patient on immunotherapy? No. No Decardon per Dr. Rodriguez. 0950 0.25 mg Xanax po given prior to Gamma Knife SRS per order of Dr. Rodriguez. 1000 Patient assisted to treatment room. Gamma Knife SRS begun. 1050 Gamma Knife Stereotactic Radiosurgery completed. 1055 Patient then discharged. Gisselle Lindsay RN documented in this encounter [facility] 08-15-2022 History of Present illness Narrative LOU OLIVER [id number] 08/15/2022 [facility] Keisha De Oliveira [facility] STEREOTACTIC RADIOSURGERY (SRS) DAILY PROCEDURE NOTE DATE OF PROCEDURE: 08/15/2022 FRACTION NUMBER: 3 of 5 CUMULATIVE DOSE: 15 Gy (Out of a planned 25 Gy) DIAGNOSIS: 76 year old woman with L sphenoid wing/sphenoorbital meningioma discovered incidentally during workup for Parkinson's disease. PROCEDURE: Under my direct supervision the patient was set up on the treatment table and all treatment parameters were verified, including patient identity and treatment site. CBCT obtained which was co-registered using the treatment planning system. Adaptive replan was verified and approved. Once the beam was turned on, the patient position and target location were continuously monitored during delivery of the SRS using infrared tracking. At all points of decision-making with regard to patient setup, I conferred with the medical reimbursement specialist to approve the final setup. I was available throughout the SRS treatment to manage the execution of the treatment and make real-time adjustments in response to patient motion, target movement, or equipment issues to ensure accuracy and safety. The patient was evaluated by me after treatment and was discharged home in stable condition. DESCRIPTION OF IMMBOLIZATION/PROCE DURE: # ARCS/ALBERTS TREATED 5-point Orfit mask Dynamic Conformal Arcs Body Fix Inverse Plan Algorithm/IMRT Beams Abdominal compression-plunger device RapidArc Abdominal compression- belt device X Gamma Knife Active Breathing Coordinator (ABC) X ICON TREATMENT VOLUMES: GTV (Defined by neurosurgeon) DOSES: GTV total of 25 Gy PHYSICIST NAME: Jonathan Ron INTERVENTIONS: None ASSESSMENT/PLAN: Patient tolerated procedure well. We will continue as planned. Electronically Signed JOEL MANTILLA M.D. 24:16 PM documented in this encounter [facility] 08-14-2022 History of Present illness Narrative Radiation Oncology - On Treatment Review (OTR) Note PATIENT NAME: Lou Oliver PATIENT DIAGNOSIS: 76 year old woman with L sphenoid wing/sphenoorbital meningioma discovered incidentally during workup for Parkinson's disease. COURSE: definitive Area Treated: GKRS -- Left SW menin Current dose: 1000 cGy in 2 fx Planned dose: 2500 cGy in 5 fx SUBJECTIVE: Tolerating treatment well. No new symptoms. Used Ativan today due to anxiety with treatment. PHYSICAL EXAM: KPS: 80 Neuro Function Score (NFS): NFS 1 (Minor neurologic symptoms; fully active at home/work without assistance) General Appearance: Alert and oriented. No acute distress. Oral Mucosa: Normal Alopecia: No Uses cane for ambulation. IMAGING/LAB RESULTS: None TOXICITY ASSESSMENT (CTC v4.0): Fatigue: grade 0 - No symptoms Alopecia: grade 0 - No hair loss Constipation: grade 0 - No symptoms Nausea: Grade 0 - No Symptoms Headache: grade 0 - No symptoms DATA: Diagnostic tests reviewed for today's visit: Most recent imaging Treatment chart checked: YES Patient treatment site reviewed and verified: YES Setup images reviewed and current: YES ASSESSMENT/PLAN: Clinically stable. Toxicity within expected parameters. Continue radiation treatment as planned. Signed by: Momo Keene MD documented in this encounter [facility] 08-14-2022 History of Present illness Narrative August 14, 2022 0928 Lou Oliver here for treatment # 2 of 5. Transportation home verified: yes, with daughter. Is patient on immunotherapy? No. 0955 Xanax 0.5 mg po given prior to Gamma Knife SRS per order of Dr. Rodriguez. 1000 Patient assisted to treatment room. Gamma Knife SRS begun. 1043 Gamma Knife Stereotactic Radiosurgery completed. 1045 Patient then discharged. 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 PROCEDURE: Under my direct supervision the patient was set up on the treatment table and all treatment parameters were verified, including patient identity and treatment site. CBCT obtained which was co-registered using the treatment planning system. Adaptive replan was verified and approved. Once the beam was turned on, the patient position and target location were continuously monitored during delivery of the SRS using infrared tracking. At all points of decision-making with regard to patient setup, I conferred with the medical reimbursement specialist to approve the final setup. I was available throughout the SRS treatment to manage the execution of the treatment and make real-time adjustments in response to patient motion, target movement, or equipment issues to ensure accuracy and safety. The patient was evaluated by me after treatment and was discharged home in stable condition. DESCRIPTION OF IMMBOLIZATION/PROCE DURE: # ARCS/ALBERTS TREATED 5-point Orfit mask Dynamic Conformal Arcs Body Fix Inverse Plan Algorithm/IMRT Beams Abdominal compression-plunger device RapidArc Abdominal compression- belt device X Gamma Knife Active Breathing Coordinator (ABC) X ICON TREATMENT VOLUMES: GTV (Defined by neurosurgeon) DOSES: GTV total of 25 Gy PHYSICIST NAME: Jontahan Ron INTERVENTIONS: None ASSESSMENT/PLAN: Patient tolerated procedure well. We will continue as planned. Electronically Signed LUCIUS KEENE M.D. 24:02 PM documented in this encounter [facility] 08-07-2022 History of Present illness Narrative Radiology Service Progress Note PATIENT NAME: Lou Oliver DATE OF SERVICE: August 07, 2022 TIME: 8:15 AM PATIENT IDENTITY VERIFICATION COMPLETED USING TWO (2) IDENTIFIERS: Name and Date of confirmed by patient verbally and Name and Date of confirmed by identification band. FALL SCREENING: Has the patient had 2 falls in the last year or 1 fall with injury or currently using an Ambulatory Assistive Device (Walker, Cane, Wheelchair, Crutches, etc.)? No PATIENT GENDER DATA: Female. status: : No status: NO. 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 AREA:Brain PATIENT POSITION: Supine CONTRAST: None PROTOCOL: None FIXATION DEVICE: In order to achieve accurate and reproducible treatments, the patient is immobilized with custom 3-point mask and mold care. PROCEDURE: A time-out was conducted and recorded by the therapist. Patient was simulated on the Gamma Knife for SRS therapy. ASSESSMENT/PLAN: Patient tolerated simulation procedure well. Treatments will be initiated after treatment planning. Electronically Signed Lucius Keene M.D. 1:49 AM documented in this encounter [facility] 08-07-2022 History of Present illness Narrative LOU OLIVER [id number] 08/07/2022 [facility] Department of Radiation Oncology [facility] RADIATION ONCOLOGY GAMMA KNIFE TREATMENT PLANNING NOTE For reasons stated in the consult note, LOU OLIVER is a candidate for definitive radiosurgery. Based on review and interpretation of the relevant diagnostic studies together with the exam findings, LOU OLIVER was imaged on 08/07/2022. The CT and MRI imaging was fused and checked in Gamma Plan by the radiation oncologist/neurosurgeon and physicist and the target volume to be treated as well as the critical normal structure(s) were delineated. After participating in the treatment planning process with neurosurgery and medical physics, I approved the best plan to deliver my prescribed course of radiosurgery. The target tissue was planned using Gamma Plan to allow for the best isodose distribution and dosimetry/DVH. The dose to normal tissue and target tissue was confirmed upon review of the calculated dose. A completed summary of this plan dated 08/07/2022 incorporated herein by reference includes dose, isodose distribution and DVH. Electronically Signed Lucius Keene M.D. / RLS 25:38 PM documented in this encounter [facility] 08-06-2022 Miscellaneous Notes I spoke with Lou regarding Gamma Knife Mask Simulation day on 08/07/2022. Instructed Lou to report to [facility]- at 7:00 am for mask simulation. Pt will then be escorted to imaging for MRI/CT. Does not have to be NPO. 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 Instructed to ignore MyChart reminders and voice messages. All questions answered and Lou receptive to information and verbalized understanding. Eunice Camarena Therapist documented in this encounter [facility] 07-26-2022 History of Present illness Narrative Images from the original note were not included. [facility] Follow-up Visit Follow-up note July 26, 2022 HPI: Ms. Oliver presents today for a follow-up visit. Per her previous visit with Dr. Connolly on 05/21/22: ASSESSMENT/PLAN: 1. Parkinson disease (HCC) - ICD9: 332.0, ICD10: G20 (primary diagnosis) Although pt with complaints as above, neurologic exam stable with only PD finding being retropulsion. Otherwise, exam with no focal neuro deficits. Reviewed prior exams, and patient with significant neuro impairments secondary to PD in 2019 before onset of treatment. With patient not having significant side effects on medications, I recommend that there be no changes to her current Sinemet regimen as documented above. I have also encouraged continued exercise and participation in the Slow the disease program. Patient and family did ask again about prognosis and explained the uncertainty of this. 2. Intracranial meningioma (HCC) - ICD9: 225.2, ICD10: D32.0 Encouraged follow up with neurosurgery. They had many questions and did my best to answer. However, many of these questions were specifically regarding surgery, post op... and explained that these best be discussed with the surgeons. As with PD, I cannot predict the growth of her meningioma and explained to the patient. However, I have reviewed the surgery office visit notes and agree with their concerns and considerations regarding treatment. 3. Small fiber neuropathy - ICD9: 356.9, ICD10: G62.9 Numbness in feet, based on exam, I suspect is due to small fiber neuropathy. Basic neuropathy lab workup has been unremarkable. Discussed further evaluations - I suspect EMG/NCV would be unremarkable and patient declines skin bx. Discussed treatment options and needing to weigh risks vs benefits. Pt would like to trial gabapentin. Will place on 100mg TID. SE and ADRs d/w pt. Follow up in 2 months. She has been taking Sinemet. Feels like medication is doing what it is supposed to do. Feels like the period between dosages is starting earlier. Three hours instead of four hours. Her last dose she took today as at 1PM (roughly 1.5 hours ago). States that around 4pm she will move slow and talk slowly. Might stumble more. Medication can make her feel nauseated. Has tried taking with food but still feels sick; has felt like that for two years. Feels like the timing she feels nauseated is shorter than before however. Denies falls. Balance has been off. Has been using her cane often. Has been yelling out in her sleep and acting out dreams. No wandering or getting out of bed. Denies speech changes; states she lives alone so sometimes it is hard to tell. Slightly more difficulty with fine motor coordination. Feels unstable. Goes to class three times per week; delay the disease. States this has been very helpful. Has been walking daily and using stationary bike. Has also been doing her own housekeeping as well. States she is sleeping much better. Has been sleeping 5-6 hours. Has been taking gabapentin which she feels has helped with her symptoms. Feet don't feel completely normal but it has helped. Feels a tingling and numbness. Feels like her socks are bunched or walking on something lumpy. Sometimes burning but this has improved with gabapentin. Denies feeling lightheaded. No leg swelling. Not fixating on these concerns like she was before. Does not want to increase. On August 07 will be going for headpiece fitting. Will be having gamma knife. Following with neurosurgery. PAST MEDICAL HISTORY Diagnosis Date Diverticulosis of colon (without mention of hemorrhage) Essential hypertension, benign 04/04/2007 Mental disorder Migraine without aura 04/04/2007 Parkinson disease (HCC) Unspecified hypothyroidism 04/04/2007 PAST SURGICAL HISTORY Procedure Laterality Date DELIVERY ONLY , low cervical x2 COLONOSCOPY FLX DX W/COLLJ SPEC WHEN PFRMD 1994 Colonoscopy COLONOSCOPY FLX DX W/COLLJ SPEC WHEN PFRMD 04/07/2012 Colonoscopy COLONOSCOPY FLX DX W/COLLJ SPEC WHEN PFRMD 06/17/2019 Colonoscopy DILATION & CURETTAGE DX&/THER NONOBSTETRIC 09/1982 Dilation & curettage PAST SURGICAL HISTORY OF 02/1996 EMB TONSILLECTOMY & ADENOIDECTOMY <AGE 12 T/A (under age 13 years) Current Outpatient Medications on File Prior to Visit Medication Sig pravastatin (PRAVACHOL) 20 mg tablet Take 1 tablet by mouth daily at bedtime. sertraline (ZOLOFT) 50 mg tablet Take 1 tablet by mouth once daily. Cholecalciferol, Vitamin D3, 50 mcg (2,000 unit) cap Take 2,000 Units by mouth once daily. gabapentin (NEURONTIN) 100 mg capsule Take 1 capsule by mouth three times daily for 90 days. carbidopa-levodopa CR (SINEMET CR) 50-200 mg per tablet TAKE 1 TABLET BY MOUTH AT BEDTIME (1130PM) carbidopa-levodopa (SINEMET) 25-100 mg per tablet Take 1 tablet by mouth five times daily. . levothyroxine (SYNTHROID) 75 mcg tablet Take 1 tablet by mouth once daily. Take on empty stomach. For Thyroid diclofenac sodium (VOLTAREN) 1 % topical gel APPLY 2 GRAMS TO AFFECTED AREA 4 TIMES A DAY docusate sodium (COLACE ORAL) Take by mouth as needed. THERAPEUTIC MULTIVITAMIN TAB Take by mouth. (Patient not taking: ) No current facility-administered medications on file prior to visit. Social History Tobacco Use Smoking status: Never Smokeless tobacco: Never Tobacco comments: Father smoked in childhood home. 2 spouses were smokers. Vaping Use Vaping Use: Never used Substance Use Topics Alcohol use: No Drug use: No ALLERGIES Allergen Reactions Sulfa (Sulfonamide * Hives Review of Systems: Cardiopulmonary: denies chest pain, palpitations Respiratory: denies shortness of breath GI/: denies recent + nausea, vomiting, diarrhea, + constipation (chronic concern), incontinence Musculoskeletal: denies weakness Back/spine: denies low back or + cervical pains Neuro: denies tremors, loss of feeling, dizziness, seizure, blackout, + paresthesia, facial paresthesia, facial weakness, difficulty in speech, slurring of words, dysarthria, dysphagia, memory loss, headache, vision changes Physical Exam: 07/26/22 1426 BP: 100/68 Pulse: 74 Resp: 16 Temp: 36.7 C (98.1 F) TempSrc: Temporal SpO2: 96% Weight: 66 kg (145 lb 6.4 oz) Patient is alert and in no distress. Dress is appropriate. Mood is appropriate Breathing appears regular and unstressed Neurologic examination: Cognitively intact. No deficits. No formal MMSE performed. CN: Pupils equal and reactive to light, extraocular movements intact with no nystagmus, face is symmetric with no facial droop, hearing intact bilaterally, symmetric evaluation of the soft palate, tongue is midline with no deviation, shoulder shrug is symmetric. Motor exam shows 5/5 strength symmetric through the upper and lower extremities in all groups tested. Sensory intact to light touch in all extremities. Deep tendon reflexes are symmetric at the biceps, brachioradialis, triceps, patella, and achilles bilaterally. Coordination: No dysmetria on finger to nose. RUE tremor with arms outstretched. No tremor at rest. No drift seen. FALLON of pronation and supination, finger and hand tapping intact. Toe tapping intact. There is no asterixis of the hands. No rigidity, cog wheeling, no bradykinesia. Retropulsion on pull test. Normal station and stride. Good arm swing and body turn. Rises from chair well without using arms. Labs/studies: Component Latest Ref Rng & Units 05/04/2022 WBC 3.70 - 11.00 k/uL 3.79 RBC 3.90 - 5.20 m/uL 3.99 Hemoglobin 11.5 - 15.5 g/dL 12.3 Hematocrit 36.0 - 46.0 % 38.2 MCV 80.0 - 100.0 fL 95.7 MCH 26.0 - 34.0 pg 30.8 MCHC 30.5 - 36.0 g/dL 32.2 RDW-CV 11.5 - 15.0 % 11.9 Platelet Count 150 - 400 k/uL 226 MPV 9.0 - 12.7 fL 9.8 Neut% % 43.3 Abs Neut (ANC) 1.45 - 7.50 k/uL 1.64 Lymph% % 43.5 Abs Lymph 1.00 - 4.00 k/uL 1.65 Ocean% % 9.5 Abs Ocean <0.87 k/uL 0.36 Eosin% % 2.9 Abs Eosin <0.46 k/uL 0.11 Baso% % 0.5 Abs Baso <0.11 k/uL <0.03 Immature Gran % % 0.3 IMMATURE GRANS (ABS) <0.10 k/uL <0.03 NRBC /100 WBC 0.0 Absolute nRBC <0.01 k/uL <0.01 DTYPE Auto Protein, Total 6.3 - 8.0 g/dL 7.3 Albumin 3.9 - 4.9 g/dL 4.6 Calcium 8.5 - 10.2 mg/dL 9.6 Bilirubin, Total 0.2 - 1.3 mg/dL 0.8 Alkaline Phosphatase 34 - 123 U/L 96 AST 13 - 35 U/L 18 ALT 7 - 38 U/L <5 (L) Glucose 74 - 99 mg/dL 93 BUN 7 - 21 mg/dL 15 Creatinine 0.58 - 0.96 mg/dL 0.78 Sodium 136 - 144 mmol/L 138 Potassium 3.7 - 5.1 mmol/L 4.1 Chloride 97 - 105 mmol/L 104 CO2 22 - 30 mmol/L 25 Anion Gap 9 - 18 mmol/L 9 eGFR >=60 mL/min/1.73m 79 Vitamin D 25 Hydroxy 31.0 - 80.0 ng/mL 28.5 (L) TSH 0.270 - 4.200 mIU/L 1.250 Vitamin B12 232-1,245 pg/mL 458 MRI Report MRI BRAIN WO/W IVCON Exam End: 03/26/2022 12:08 PM (Final result) Narrative: * * *Final Report* * * DATE OF EXAM: Mar 26 2022 12:08PM [facility] 0295 - MRI BRAIN WO/W IVCON / PROCEDURE REASON: Benign neoplasm of brain, unspecified brain region (HCC) * * * * Physician Interpretation * * * * EXAMINATION: MRI BRAIN WO/W IVCON CLINICAL HISTORY: Left spheno-orbital orbital meningioma. TECHNIQUE: Routine brain MRI protocol without and with contrast including diffusion and gradient echo images. MQ: [id number] Contrast: 13 mL Dotarem IV COMPARISON: 02/15/2021 RESULT: Acute Change: There is no evidence of an acute intracranial process. Hemorrhage: No evidence of prior parenchymal hemorrhage on the gradient echo images. Mass Lesion/ Mass Effect: Again noted is a large, dural based extra-axial soft tissue mass along the margins of the left lateral orbitofrontal and inferior frontal gyri. This mass is again noted to be essentially isointense to parenchyma on all pulse sequences and demonstrates prominent uniform enhancement following gadolinium administration compatible with the suspicion of a meningioma. This mass is again noted to overlie the lesser wing of the left sphenoid bone, orbital plate of the left frontal bone with marginal extension along the convexity. Overall, this mass measures approximately 3.6 x 2.0 x 2.0 cm in greatest AP, transverse, and CC dimensions, respectively., Upon correlation echo registered 3-D volumes, this is minimally increased in size and there has been mild interval increase in surrounding parenchymal edema. There continues to be mild compression of the overlying parenchyma, mild compression of the left frontal horn, but no significant subfalcine herniation. There is no evidence of an intracranial mass elsewhere. No abnormal parenchymal or leptomeningeal enhancement is appreciated otherwise following gadolinium administration. Chronic Change: The white matter is otherwise within normal limits of signal intensity for age. Parenchyma: No significant volume loss for age. The brain parenchyma is otherwise within normal limits of signal intensity and morphology. Ventricles: Normal caliber and morphology. Skull Base: Hypothalamic and pituitary region are grossly normal. Craniocervical junction is normal. No significant marrow replacement process. Vasculature: Major intracranial arterial structures, and dural venous sinuses show typical flow void, suggesting patency by spin echo criteria. Incidentally noted is developmental venous anomaly in the lateral inferior aspect of the right frontal pole, a normal variant. Other: The visualized paranasal sinuses and mastoid air cells are clear. The orbits and extracranial soft tissues are unremarkable. Impression: IMPRESSION: Slight interval increase in size of the left sphenoethmoidal orbital meningioma and mild increase in surrounding vasogenic edema since 02/15/2021. Otherwise stable appearance of the brain. Tenant Selector: DOMENIC Transcribe Date/Time: Mar 26 2022 12:43P Dictated by : TANYA ADAMES MD This examination was interpreted and the report reviewed and electronically signed by: TANYA ADAMES MD on Mar 26 2022 12:54PM EST Assessment/Plan: G20 Parkinson disease (HCC) (primary encounter diagnosis) Comment: Pt reports concerns today similar to those at time of last OV. Neurological exam remains stable with only PD finding again being retropulsion. Gait is stable on ambulation. Only SE with medication is mild nausea which she reports has been chronic. Discussed medication and as there has been no changes on exam since time of previous visit, will continue with current Sinemet regimen. See below. -Sinemet 25/100mg 1 tab at 730AM, 1030AM, 1230PM, 430PM, 830PM -Sinemet CR 50/200 1 tab at midnight. She continues to participate in delay the disease and stays active at home. She denies falls and does use an assistive ambulatory device when needed. Discussed physical therapy for balance and she will notify the office following upcoming procedures if she feels she would like to proceed. G62.9 Small fiber neuropathy Comment: Numbness and tingling to both feet felt to be due to small fiber neuropathy. Past neuropathy lab work was unremarkable. Further evaluation discussed at time of last OV, however, pt deferred at that time. She was started on gabapentin 100mg TID and today she reports improvement in symptoms. Still noting mild n/t with occasional pain overnight, however, she feels symptoms are managed with current dose of medication. She denies SE. Will continue as previously prescribed. RF provided. D32.0 Intracranial meningioma (HCC) Comment: Following with neurosurgery. Plan is for Gamma Knife later this month. Continue follow up as scheduled. Era Madden APRN.CNP I spent a total of 40 minutes on the date of the service which included preparing to see the patient, [id number] patient care, completing clinical documentation, obtaining and/or reviewing separately obtained history, performing a medically appropriate examination, counseling and educating the patient/family/caregiver, and ordering medications, tests, or procedures. PDMP website checked and validated. All prescriptions have been APPROPRIATELY filled. No suspicious activity was identified. July 26, 2022 Era Madden APRN.BUCKET PUSHER documented in this encounter [facility] 06-11-2022 History of Present illness Narrative Images from the original note were not included. Raman Greenwood MD Interventional Cardiology [facility] [address], [place] [address] [phone] Chief Complaint Patient presents with: Follow Up HISTORY OF PRESENT ILLNESS: Ms. Oliver is a 77 year old female seen in my office for follow-up prior history of sinus tachycardia related to medications she is doing well from the cardiac point of view EKG today sinus rhythm heart rate of 66 blood pressures well controlled without blood pressure medication no angina no signs or symptoms of congestive heart failure Patient is doing well from the cardiac point of view Diagnosed with meningioma she is he is undergoing, Cardiac Risk Factors age (male over 45, female over 55), hypertension PAST MEDICAL HISTORY Diagnosis Date Diverticulosis of colon (without mention of hemorrhage) Essential hypertension, benign 04/04/2007 Mental disorder Migraine without aura 04/04/2007 Parkinson disease (HCC) Unspecified hypothyroidism 04/04/2007 PAST SURGICAL HISTORY Procedure Laterality Date DELIVERY ONLY , low cervical x2 COLONOSCOPY FLX DX W/COLLJ SPEC WHEN PFRMD 1994 Colonoscopy COLONOSCOPY FLX DX W/COLLJ SPEC WHEN PFRMD 04/07/2012 Colonoscopy COLONOSCOPY FLX DX W/COLLJ SPEC WHEN PFRMD 06/17/2019 Colonoscopy DILATION & CURETTAGE DX&/THER NONOBSTETRIC 09/1982 Dilation & curettage PAST SURGICAL HISTORY OF 02/1996 EMB TONSILLECTOMY & ADENOIDECTOMY <AGE 12 T/A (under age 12 years) FAMILY HISTORY Problem Relation Age of Onset Hypertension Mother Arthritis Mother Heart disease Mother Diabetes Father adult onset Emphysema Father Cancer Father lung Asthma Daughter Allergic Rhinitis Daughter Diabetes Paternal Grandmother Ischemic Heart Disease Maternal Grandfather Psychiatry Maternal Grandmother Social History Tobacco Use Smoking status: Never Smokeless tobacco: Never Tobacco comments: Father smoked in childhood home. 2 spouses were smokers. Vaping Use Vaping Use: Never used Substance Use Topics Alcohol use: No Drug use: No ALLERGIES Allergen Reactions Sulfa (Sulfonamide * Hives Medications: Current Outpatient Medications Medication Sig Dispense Refill Cholecalciferol, Vitamin D3, 50 mcg (2,000 unit) cap Take 2,000 Units by mouth once daily. gabapentin (NEURONTIN) 100 mg capsule Take 1 capsule by mouth three times daily for 90 days. 90 capsule 2 carbidopa-levodopa CR (SINEMET CR) 50-200 mg per tablet TAKE 1 TABLET BY MOUTH AT BEDTIME (1130PM) 90 tablet 3 carbidopa-levodopa (SINEMET) 25-100 mg per tablet Take 1 tablet by mouth five times daily. . 450 tablet 3 levothyroxine (SYNTHROID) 75 mcg tablet Take 1 tablet by mouth once daily. Take on empty stomach. For Thyroid 90 tablet 3 sertraline (ZOLOFT) 50 mg tablet Take 1 tablet by mouth once daily. 90 tablet 1 diclofenac sodium (VOLTAREN) 1 % topical gel APPLY 2 GRAMS TO AFFECTED AREA 4 TIMES A DAY 200 g 2 pravastatin (PRAVACHOL) 20 mg tablet Take 1 tablet by mouth daily at bedtime. 90 tablet 3 docusate sodium (COLACE ORAL) Take by mouth as needed. THERAPEUTIC MULTIVITAMIN TAB Take by mouth. (Patient not taking: ) 0 No current facility-administered medications for this visit. Review of Systems Constitutional: Negative for chills, diaphoresis, fever, malaise/fatigue and weight loss. HENT: Negative for congestion, ear discharge, ear pain, hearing loss, nosebleeds, sinus pain, sore throat and tinnitus. Eyes: Negative for blurred vision, double vision, photophobia, pain, discharge and redness. Respiratory: Negative for cough, hemoptysis, sputum production, shortness of breath, wheezing and stridor. Cardiovascular: Negative for chest pain, palpitations, orthopnea, claudication, leg swelling and PND. Gastrointestinal: Negative for abdominal pain, blood in stool, constipation, diarrhea, heartburn, melena, nausea and vomiting. Genitourinary: Negative for dysuria, flank pain, frequency, hematuria and urgency. Musculoskeletal: Negative for back pain, falls, joint pain, myalgias and neck pain. Skin: Negative for itching and rash. Neurological: Negative for dizziness, tingling, tremors, sensory change, speech change, focal weakness, seizures, loss of consciousness, weakness and headaches. Endo/Heme/Allergies: Negative for environmental allergies and polydipsia. Does not bruise/bleed easily. Psychiatric/Behavioral: Negative for depression, hallucinations, memory loss, substance abuse and suicidal ideas. The patient is not nervous/anxious and does not have insomnia. Physical Examination: Vitals:BP 120/76 Pulse 66 Ht 5' 4.5 (1.64m) Wt 140 lb (63.5kg) BMI 23.67 kg/(m^2). BP w/Orthostatic Vitals Date and Time Orthostatic BP Orthostatic Pulse BP Pulse BP Position BP Site BP Cuff Size 06/11/22 1007 -- -- 120/76 66 -- -- -- Last 2 Encounter Wt Readings: Date: Wt: 06/11/2022 140 lb (63.5 kg) 05/21/2022 141 lb 12.8 oz (64.3 kg) Physical Exam Constitutional: General: She is not in acute distress. Appearance: She is not diaphoretic. HENT: Head: Normocephalic and atraumatic. Right Ear: External ear normal. Left Ear: External ear normal. Nose: Nose normal. Mouth/Throat: Pharynx: Oropharynx is clear. Eyes: General: Right eye: No discharge. Left eye: No discharge. Conjunctiva/sclera: Conjunctivae normal. Pupils: Pupils are equal, round, and reactive to light. Cardiovascular: Rate and Rhythm: Normal rate and regular rhythm. Heart sounds: Normal heart sounds, S1 normal and S2 normal. No murmur heard. No friction rub. No gallop. No S3 or S4 sounds. Pulmonary: Effort: Pulmonary effort is normal. No respiratory distress. Breath sounds: Normal breath sounds. No wheezing or rales. Chest: Chest wall: No tenderness. Musculoskeletal: General: Normal range of motion. Cervical back: Normal range of motion and neck supple. Skin: General: Skin is warm and dry. Neurological: Mental Status: She is alert and oriented to person, place, and time. Psychiatric: Mood and Affect: Mood normal. Thought Content: Thought content normal. Judgment: Judgment normal. Pertinent Labs: CBC: Hemoglobin (g/dL) Date Value 05/04/2022 12.3 05/26/2019 11.6 Hematocrit (%) Date Value 05/04/2022 38.2 05/26/2019 34.3 WBC (k/uL) Date Value 05/04/2022 3.79 05/26/2019 4.94 Platelet Count (k/uL) Date Value 05/04/2022 226 05/26/2019 246 BMP: Glucose (mg/dL) Date Value 05/04/2022 93 12/15/2020 86 Potassium (mmol/L) Date Value 05/04/2022 4.1 12/15/2020 4.7 Sodium (mmol/L) Date Value 05/04/2022 138 12/15/2020 139 Chloride (mmol/L) Date Value 05/04/2022 104 12/15/2020 103 CO2 (mmol/L) Date Value 05/04/2022 25 12/15/2020 27 Creatinine (mg/dL) Date Value 05/04/2022 0.78 12/15/2020 0.69 BUN (mg/dL) Date Value 05/04/2022 15 12/15/2020 27 Anion Gap (mmol/L) Date Value 05/04/2022 9 12/15/2020 9 Calcium (mg/dL) Date Value 12/15/2020 9.7 Calcium, Total (mg/dL) Date Value 05/04/2022 9.6 INR: Lipid Profile: Cholesterol, Total Date Value Ref Range Status 03/08/2021 193 <200 mg/dL Final Comment: <200 mg/dL, Desirable 200-239 mg/dL, Borderline high >239 mg/dL, High HDL Cholesterol Date Value Ref Range Status 03/08/2021 71 >39 mg/dL Final Comment: 40-59 mg/dL, Acceptable >59 mg/dL, High: Negative risk factor for coronary heart disease <40 mg/dL, Low: Positive risk factor for coronary heart disease LDL Cholesterol Date Value Ref Range Status 03/08/2021 108 (H) <100 mg/dL Final Comment: <100 mg/dL, Optimal 100-129 mg/dL, Near optimal/above optimal 130-159 mg/dL, Borderline high 160-189 mg/dL, High >189 mg/dL, Very high Secondary prevention optimal LDL Cholesterol levels are recommended to be < 70 mg/dL Triglyceride Date Value Ref Range Status 03/08/2021 71 <150 mg/dL Final Comment: <150 mg/dL, Normal 150-199 mg/dL, Borderline high 200-499 mg/dL, High >499 mg/dL, Very high Hemoglobin A1C: No results found for: HGBA1C TSH: No results found for: TSHREFL Prior Cardiac Testing EKG Assessment and Plan: 77 years old with prior history of sinus tachycardia related to medication we will continue with the same cardiac therapy no intervention Follow-up in 1 year Follow up planning: One year Electronically signed by Raman Greenwood MD on June 11, 2022, 10:19 AM The above note was partially created using a dictation recognition software. A reasonable attempt has been made to correct any errors. documented in this encounter [facility] 05-21-2022 History of Present illness Narrative ESTABLISHED PATIENT VISIT CHIEF COMPLAINT: Follow Up, New complaints. HISTORY OF PRESENT ILLNESS: Lou Oliver is a 76 year old female, BMI 23.96 kg/m2 with a PMH significant for and per last office visit note of 10/27/21: 1. Parkinson disease (HCC) - ICD9: 332.0, ICD10: G20 (primary diagnosis) Patient overall doing well, and in fact, minimal to no signs of PD during this afternoon's evaluation. Note this evaluation took place approximately 1-2 hours following her last dose of Sinemet. However, pt noting on-off effect of Sinemet with approximate 3 hour period of exacerbation of symptoms in late AM as described above. This appears due to the timing of dosing of her short acting Sinemet. Also pt does not feel CR dose of Sinemet impacting symptoms during the day. After d/w pt, will adjust medications as follows (note pt agrees with plan): -Continue Sinemet CR 50/200mg at 11PM. -Stop Sinemet CR at 10AM -Continue Sinemet 25/100mg at 7AM, Noon, 4PM, and 8PM. -Add Sinemet 25/100mg at 10AM. Encouraged continued exercise. Pt will contact us immediately if any side effects or if symptoms worsen. Otherwise will follow up in Summer 2021. 2. Intracranial meningioma (HCC) - ICD9: 225.2, ICD10: D32.0 Encouraged follow up with neurosurgery. Asx. Patient with multiple questions regarding meningioma. Reviewed MRI with patient and family. Discussed area and possibly symptoms including seizure. Pt states she feels off balance more and feels like veering into hill on the left side. She however states the RLE is twitching and feels poorly controlled and makes difficult to drive. No falls. States no increase in difficulties with fine motor tasks. No changes in speech. No new abnormal behaviors at night. Some degree of delayed response when trying to formulate thoughts or choose the right word. Sinemet 25/100mg 1 tab at 730AM, 1030AM, 1230PM, 430PM, 830PM Sinemet CR 50/200 1 tab at midnight. Patient states medication last for about 3 hours and then states things start to slow down a bit as well as movements. Can also feel anxious. States the 4-530PM hours are usually difficult for her and has a bad time from 930AM to noon. Does get mild nausea from medications. From exercise standpoint is in delay the disease 3 days per week. On days not at therapy, is ambulating at home and riding a stationary bike. States feet are always numb on the bottom. Not relieved with rest. Present all day. REVIEW OF SYSTEMS GENERAL:No weight loss, malaise or fevers. HEENT:Negative for frequent or significant headaches, No changes in hearing or vision, no nose bleeds or other nasal problems NECK:Negative for lumps, goiter, pain and significant neck swelling RESPIRATORY: Negative for cough, wheezing or shortness of breath. CARDIOVASCULAR: Negative for chest pain, leg swelling or palpitations. GASTROINTESTINAL: Negative for abdominal discomfort, blood in stools or black stools or change in bowel habits GENITOURINARY: No history of dysuria, frequency or incontinence MUSCULOSKELETAL: Negative for joint pain or swelling, back pain or muscle pain. NEUROLOGIC:See HPI. SKIN:Negative for lesions, rash, and itching. HEMATOLOGIC/LYMPHATIC/IMMUNOLOGIC: Negative for prolonged bleeding, bruising easily or swollen nodes. ENDOCRINE: Negative for cold or heat intolerance, polyuria, polydipsia and goiter. The remainder of the ROS was reviewed and is negative. LAB/IMAGING: Those performed since patient's last visit have been reviewed. WBC (k/uL) Date Value 05/04/2022 3.79 RBC (m/uL) Date Value 05/04/2022 3.99 Hemoglobin (g/dL) Date Value 05/04/2022 12.3 Hematocrit (%) Date Value 05/04/2022 38.2 MCV (fL) Date Value 05/04/2022 95.7 MCH (pg) Date Value 05/04/2022 30.8 MCHC (g/dL) Date Value 05/04/2022 32.2 RDW-CV (%) Date Value 05/04/2022 11.9 Platelet Count (k/uL) Date Value 05/04/2022 226 MPV (fL) Date Value 05/04/2022 9.8 Glucose (mg/dL) Date Value 05/04/2022 93 BUN (mg/dL) Date Value 05/04/2022 15 Creatinine (mg/dL) Date Value 05/04/2022 0.78 Sodium (mmol/L) Date Value 05/04/2022 138 Potassium (mmol/L) Date Value 05/04/2022 4.1 Chloride (mmol/L) Date Value 05/04/2022 104 CO2 (mmol/L) Date Value 05/04/2022 25 Protein, Total (g/dL) Date Value 05/04/2022 7.3 Albumin (g/dL) Date Value 05/04/2022 4.6 Calcium, Total (mg/dL) Date Value 05/04/2022 9.6 Alkaline Phosphatase (U/L) Date Value 05/04/2022 96 Bilirubin, Total (mg/dL) Date Value 05/04/2022 0.8 AST (U/L) Date Value 05/04/2022 18 ALT (U/L) Date Value 05/04/2022 <5 (L) Hep C Antibody IA (no units) Date Value 08/01/2016 Negative URINALYSIS Specific [place], Ur Date Value Ref Range Status 10/09/2013 1.015 1.005 - 1.030 Final Glucose, Urine Date Value Ref Range Status 10/09/2013 Negative NEGAT mg/dL Final Bilirubin, Urine Date Value Ref Range Status 10/09/2013 Negative NEGAT Final Ketones, Urine Date Value Ref Range Status 10/09/2013 Negative NEGAT Final Hemoglobin/Blood,Ur Date Value Ref Range Status 10/09/2013 Trace (A) NEGAT Final Protein, Urine Date Value Ref Range Status 10/09/2013 Negative NEGAT mg/dL Final WBC, Urine Date Value Ref Range Status 10/09/2013 0-5 R05 /HPF Final MEDICATIONS: Cholecalciferol, Vitamin D3, (VITAMIN D-3) 50 mcg (2,000 unit) cap Take 2,000 Units by mouth once daily. levothyroxine (SYNTHROID) 75 mcg tablet Take 1 tablet by mouth once daily. Take on empty stomach. For Thyroid sertraline (ZOLOFT) 50 mg tablet Take 1 tablet by mouth once daily. carbidopa-levodopa (SINEMET) 25-100 mg per tablet Take 1 tablet by mouth five times daily. . carbidopa-levodopa CR (SINEMET CR) 50-200 mg per tablet TAKE 1 TABLET BY MOUTH AT 11PM AND 1 TABLET IN THE AM. diclofenac sodium (VOLTAREN) 1 % topical gel APPLY 2 GRAMS TO AFFECTED AREA 4 TIMES A DAY pravastatin (PRAVACHOL) 20 mg tablet Take 1 tablet by mouth daily at bedtime. docusate sodium (COLACE ORAL) Take by mouth as needed. THERAPEUTIC MULTIVITAMIN TAB Take by mouth. HISTORIES PAST MEDICAL HISTORY Diagnosis Date Diverticulosis of colon (without mention of hemorrhage) Essential hypertension, benign 04/04/2007 Mental disorder Migraine without aura 04/04/2007 Parkinson disease (HCC) Unspecified hypothyroidism 04/04/2007 FAMILY HISTORY Problem Relation Age of Onset Hypertension Mother Arthritis Mother Heart disease Mother Diabetes Father adult onset Emphysema Father Cancer Father lung Asthma Daughter Allergic Rhinitis Daughter Diabetes Paternal Grandmother Ischemic Heart Disease Maternal Grandfather Psychiatry Maternal Grandmother SOCIAL HISTORY Social History Tobacco Use Smoking status: Never Smoker Smokeless tobacco: Never Used Tobacco comment: Father smoked in childhood home. 2 spouses were smokers. Vaping Use Vaping Use: Never used Substance Use Topics Alcohol use: No Drug use: No PHYSICAL EXAMINATION BP 104/56 Pulse 60 Temp 36.5 C (97.7 F) Resp 18 Wt 64.3 kg (141 lb 12.8 oz) SpO2 96% BMI 23.96 kg/m GENERAL EXAM: General appearance: NAD, pleasant but anxious. HEENT: NC/AT, nasal congestion absent, no oral lesions, membranes moist. NECK: No masses, supple. Lungs: CTA bilaterally. CV: RRR nl S1, S2 Extr: No cyanosis, clubbing or edema. Capillary refill <2 sec. Skin: Cool to touch. NEUROLOGICAL EXAM: General: Awake, alert, oriented x3 (person,place,time), speech fluent, no dysarthria; comprehension, naming, repetition intact. CN: PERRL, EOMI and without nystagmus, VFF to confrontation, facial sensation and strength are normal and symmetric, hearing is intact to finger rub bilaterally, palate and tongue movements are intact and symmetric. SCM and trapezius strength normal. Motor: Normal tone, bulk and strength (5/5) bilaterally (throughout extremities x4). Reflexes: 1/4 and symmetric, plantar stimulation is flexor. Coordination: FNF, FALLON, HTS intact. Mild high freq low amp tremor in fingers with posture. No tremor at rest. Sensation: Light touch and vibration intact throughout. Pin diminished distal to ankles. No evidence of neglect. Gait: Stable with normal stride and arm swing. Romberg normal. Retropulsion on pull testing. Upright posture. No difficulties turning 180 degrees. Able to rise from chair without assist of upper exts. Assessment and Plan: ASSESSMENT/PLAN: 1. Parkinson disease (HCC) - ICD9: 332.0, ICD10: G20 (primary diagnosis) Although pt with complaints as above, neurologic exam stable with only PD finding being retropulsion. Otherwise, exam with no focal neuro deficits. Reviewed prior exams, and patient with significant neuro impairments secondary to PD in 2019 before onset of treatment. With patient not having significant side effects on medications, I recommend that there be no changes to her current Sinemet regimen as documented above. I have also encouraged continued exercise and participation in the Slow the disease program. Patient and family did ask again about prognosis and explained the uncertainty of this. 2. Intracranial meningioma (HCC) - ICD9: 225.2, ICD10: D32.0 Encouraged follow up with neurosurgery. They had many questions and did my best to answer. However, many of these questions were specifically regarding surgery, post op... and explained that these best be discussed with the surgeons. As with PD, I cannot predict the growth of her meningioma and explained to the patient. However, I have reviewed the surgery office visit notes and agree with their concerns and considerations regarding treatment. 3. Small fiber neuropathy - ICD9: 356.9, ICD10: G62.9 Numbness in feet, based on exam, I suspect is due to small fiber neuropathy. Basic neuropathy lab workup has been unremarkable. Discussed further evaluations - I suspect EMG/NCV would be unremarkable and patient declines skin bx. Discussed treatment options and needing to weigh risks vs benefits. Pt would like to trial gabapentin. Will place on 100mg TID. SE and ADRs d/w pt. Follow up in 2 months. Ranjan Connolly MD PDMP website checked and validated. All prescriptions have been APPROPRIATELY filled. No suspicious activity was identified. 05/21/2022 by Ranjan Connolly MD I spent a total of 50+ minutes on the date of the service which included preparing to see the patient, [id number] patient care, completing clinical documentation, obtaining and/or reviewing separately obtained history, performing a medically appropriate examination, counseling and educating the patient/family/caregiver, ordering medications, tests, or procedures, independently interpreting results (not separately reported) and communicating results to the patient/family/caregiver. documented in this encounter [facility] 05-03-2022 History of Present illness Narrative Radiation Oncology - New Patient/Consult Note This visit was conducted as a virtual visit using a HIPAA-compliant platform. PATIENT NAME: Lou Oliver PATIENT REQUESTING PROVIDER: Semaj Rodriguez MD DIAGNOSIS: 76 year old woman with L sphenoid wing/sphenoorbital meningioma discovered incidentally during workup for Parkinson's disease. HPI: The patient is a 76 year old, left handed woman who presents with above diagnosis, for an opinion regarding the role of radiation therapy in the management of the patient's disease. Final recommendations will be communicated back to the requesting physician by way of the shared medical record, or letter to requesting physician via US mail. Ms. Oliver is a 76-year-old woman with Parkinson's disease who is referred to our service for management of intracranial meningioma in the margins of the left lateral orbitofrontal and inferior frontal gyri. She was diagnosed with Parkinson's disease in April 2020 when she described a constellation of symptoms to include tremors, difficulties with balance and shuffling gait, micrographia, difficulties with ADLs, hemiballismus, and softening of her voice. She further described concomitant neck pain radiating into her shoulders and numbness in the back of her head. MRI/MRA brain was obtained 04/13/20 showing an enhancing left lateral orbitofrontal dural based mass measuring 3.3 cm in greatest dimension with mild localized mass effect and without vasogenic edema. An MRI cervical spine was obtained 05/10/20 showing mild cervical spondylosis without high-grade canal or foraminal stenosis. Her Parkinsonian symptoms improved with Sinemet 25/100 mg TID and her neck discomfort improved with physical therapy. However her cervical discomfort recurred and spine injections were attempted. Repeat MRI brain was performed on 03/26/2022 and demonstrated interval increase in size of the left orbitofrontal mass, now measuring 3.6 x 2.0 x 2.0 cm with mild compression of the overlying parenchyma, mild compression of the left frontal horn, but no significant subfalcine herniation. She is accompanied by her daughters today and says that her primary concerns are balance difficulty. She is not sure what is causing her difficulty with balance. She does not feel that the room is spinning or that her limbs are uncoordinated. Sometimes she walks in the [place] and veers to the left. She also says she has a mild tremor that is bothersome. She also has lower extremity paresthesias, and her PCP checked vitamin B12 levels which were normal. She met with Dr. Rodriguez earlier today to discuss the possibility of surgery versus Gamma Knife. MRI Brain 03/26/22 IMPRESSION: Slight interval increase in size of the left sphenoethmoidal orbital meningioma and mild increase in surrounding vasogenic edema since 02/15/2021. Otherwise stable appearance of the brain. MRI brain 04/13/22 IMPRESSION: No acute intracranial abnormality including no acute infarction. Enhancing left lateral orbitofrontal dural based mass measuring up to 3.3 cm, likely representing a meningioma with only mild localized mass effect and without associated vasogenic edema. Essentially unremarkable appearance of the brain for age otherwise. Unremarkable intracranial MRA without significant/flow limiting stenosis or aneurysm. ALLERGIES Allergen Reactions Sulfa (Sulfonamide * Hives MEDICATIONS: levothyroxine (SYNTHROID) 75 mcg tablet Take 1 tablet by mouth once daily. Take on empty stomach. For Thyroid sertraline (ZOLOFT) 50 mg tablet Take 1 tablet by mouth once daily. carbidopa-levodopa (SINEMET) 25-100 mg per tablet Take 1 tablet by mouth five times daily. . carbidopa-levodopa CR (SINEMET CR) 50-200 mg per tablet TAKE 1 TABLET BY MOUTH AT 11PM AND 1 TABLET IN THE AM. diclofenac sodium (VOLTAREN) 1 % topical gel APPLY 2 GRAMS TO AFFECTED AREA 4 TIMES A DAY pravastatin (PRAVACHOL) 20 mg tablet Take 1 tablet by mouth daily at bedtime. docusate sodium (COLACE ORAL) Take by mouth as needed. THERAPEUTIC MULTIVITAMIN TAB Take by mouth. PAST MEDICAL HISTORY Diagnosis Date Diverticulosis of colon (without mention of hemorrhage) Essential hypertension, benign 04/04/2007 Mental disorder Migraine without aura 04/04/2007 Parkinson disease (HCC) Unspecified hypothyroidism 04/04/2007 Prior radiation therapy, collagen vascular disease, or inflammatory bowel disease: No status: Post-menopausal. Charlson Comorbidity Scale reviewed: Yes PAST SURGICAL HISTORY Procedure Laterality Date DELIVERY ONLY , low cervical x2 COLONOSCOPY FLX DX W/COLLJ SPEC WHEN PFRMD 1994 Colonoscopy COLONOSCOPY FLX DX W/COLLJ SPEC WHEN PFRMD 04/07/2012 Colonoscopy COLONOSCOPY FLX DX W/COLLJ SPEC WHEN PFRMD 06/17/2019 Colonoscopy DILATION & CURETTAGE DX&/THER NONOBSTETRIC 09/1982 Dilation & curettage PAST SURGICAL HISTORY OF 02/1996 EMB TONSILLECTOMY & ADENOIDECTOMY <AGE 13 T/A (under age 13 years) FAMILY HISTORY Problem Relation Age of Onset Hypertension Mother Arthritis Mother Heart disease Mother Diabetes Father adult onset Emphysema Father Cancer Father lung Asthma Daughter Allergic Rhinitis Daughter Diabetes Paternal Grandmother Ischemic Heart Disease Maternal Grandfather Psychiatry Maternal Grandmother SOCIAL HISTORY: Lives alone in [facility]. Manages ADLs fine on her own. Has adult children. COMPLETE REVIEW OF SYSTEMS: As noted in HPI Neuro detailed: Headache: No Pain: No Pain interventions: none required Fatigue: mild Decreased visual acuity: No Diplopia: No Visual Field Changes: No Tinnitus: Yes Hearing loss: none Dysphagia: No Decreased balance: mild Arm/leg numbness: no Focal weakness: No Limb discoordination: Yes Disorientation: none Decreased concentration: none Memory changes: none Word finding difficulty: mild Dysarthria: none Seizures: No PHYSICAL EXAM: VS: Virtual encounter. KPS: 80 Neuro function score (NFS): NFS 1 (Minor neurologic symptoms; fully active at home/work without assistance) General Appearance: Alert and oriented. No acute distress. Chest: No respiratory distress. Neuro: Speech fluent. Answers questions appropriately. No gross CN deficits RADIOLOGY/LABORATORY DATA: see HPI ASSESSMENT AND PLAN: 76 year old woman with left lateral sphenoid wing meningioma having grown approximately 1 mm/year since diagnosis in 2019. She described symptoms of word finding difficulties, gait instability, and lower extremity paraesthesia. Given that a sphenoid wing meningioma would classically present with cranial neuropathy and seizures, her symptoms may be better explained by her Parkinson's diagnosis. However, given the interval growth of the tumor, treating the meningioma now is reasonable given her current good performance status. Should her tumor progress, her health or age may limit her candidacy for surgery and Gamma Knife. The risks and benefits of Gamma Knife radiosurgery were discussed in detail with Mia Melody. Additionally, the expected side effect profile and logistics of Gamma Knife were fully explored. At this time she is leaning toward surgery or observation but would like to take time to consider the options. Our contact information was provided and reviewed with plan for titrating her if she elects to pursue radiation. Ronald Zuleta MD PGY-2, Radiation Oncology [id number] STAFF ADDENDUM I saw and evaluated the patient. I personally obtained the cool and critical portions of the history and physical exam. I reviewed the resident's documentation and discussed the patient with the resident. I agree with the resident's medical decision making as documented in the resident's note. 76 year old woman with left lateral sphenoid meningioma having grown approximately 1 mm/year since diagnosis in 2019. I discussed options, focusing on fractionated GKRS, also discussing conventionally fractionated RT. R/B/A/P of fractionated GKRS were discussed. She would like to think about her options including surgery, which she discussed with Dr. Rodriguez, and get back to us. Signed by: Momo Keene MD cc: Marvel Rizzo [address] [place] [address] Mary Ely [id number] [facility] [id number] Semaj Rodriguez MD - [facility] documented in this encounter [facility] 05-03-2022 History of Present illness Narrative Images from the original note were not included. SECTION OF SKULL BASE SURGERY MINIMALLY INVASIVE CRANIAL BASE & PITUITARY SURGERY PROGRAM [facility] TELEMEDICINE FOLLOW-UP VISIT This is a virtual visit. It required patient-provider interaction for the medical decision making as documented below. CC: MD Mary Lewis MD Assessment/Plan: Lou Oliver presents for follow-up of left lateral sphenoid wing meningioma that has demonstrated small amount of growth, approximately 1 mm/year over the last couple years with new adjacent brain edema. She does have some speech and cognitive symptoms but difficult to say whether meningioma has any relation or if this is due to Parkinson's disease or age. We discussed that at this trajectory, I am concerned that in 5 years or 10 years she may run into greater problems with brain edema and at that point may not be a good surgical candidate or GK candidate. Therefore we discussed treating this now given her good health and life expectancy. We discussed fractionated GK versus surgical resection in detail including pros and cons. My main concern with fractionated GK would be risk of worsening adjacent brain edema given presence of existing edema. My main concern with surgery is that she might have slightly more difficult recovery due to her Parkinson's. We discussed both in detail, we discussed the pros and cons and I told her I would be happy to do either depending on where her preference was to distribute risk over time. She will be meeting with radiation oncology later today and then can make a decision. I spent approximately 40 minutes of [id number] time with the patient of which >50% was spent in counseling the patient and/or coordinating care Semaj Rodriguez MD Staff, Skull Base & Cerebrovascular Surgery Department of Neurological Surgery [facility] Subjective: Left handed Mild WFD - finding words, remembering correct words; attributes to PD Balance worse, using a cane No new medical problems No seizures Current Outpatient Medications Medication Sig levothyroxine (SYNTHROID) 75 mcg tablet Take 1 tablet by mouth once daily. Take on empty stomach. For Thyroid sertraline (ZOLOFT) 50 mg tablet Take 1 tablet by mouth once daily. carbidopa-levodopa (SINEMET) 25-100 mg per tablet Take 1 tablet by mouth five times daily. . carbidopa-levodopa CR (SINEMET CR) 50-200 mg per tablet TAKE 1 TABLET BY MOUTH AT 11PM AND 1 TABLET IN THE AM. diclofenac sodium (VOLTAREN) 1 % topical gel APPLY 2 GRAMS TO AFFECTED AREA 4 TIMES A DAY pravastatin (PRAVACHOL) 20 mg tablet Take 1 tablet by mouth daily at bedtime. docusate sodium (COLACE ORAL) Take by mouth as needed. THERAPEUTIC MULTIVITAMIN TAB Take by mouth. No current facility-administered medications for this visit. Physical Examination: Awake, alert, conversant Oriented to person, place, and time Speech: Normal fluency and comprehension EOMI grossly intact Face symmetric No gross motor deficits Data Review: Imaging: MRI 2019 -slight growth in left lateral sphenoid wing meningioma, new mild brain edema not present in 2019 documented in this encounter [facility] 05-01-2022 History of Present illness Narrative Reason for Visit Patient presents with: Established Patient: 4 month follow up Lou Oliver is a 76 year old female who presents here today for Above Complaints.. Health Maintenance DTAP,TDAP,TD(1 - Tdap) SHINGRIX VACCINE(2 of 3) ADVANCE DIRECTIVE DISCUSSION HPI Patient had a follow up for her MRI- for meningioma. MRI recently showed 1. 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 She is going to have one sitting of radiation, it will be a day procedure. Parkinsons: for the past couple months she had a lot more trouble keeping her balance. Uses her can know. Side effect of the levodopa was nausea, started taking on empty stomach and it is better. The off periods are problematic, she feels sluggish, body pain, balance is off, fogginess of brain, The off periods last around an hour or 2 hours. She is taking the larger dose and extended release at night and she seems to be doing very well with that, sleeps well and no insomnia. During the day she takes medicine at 7, 10, 1 , 4:30 and then 8 30. And then 11:30 or 12. She has been going to her exercise classes, meeting the group for parkinsons Tingling numbness in the feet, they feel numb and tingly all the time. There is no back issues. Vit b12 levels are normal, this is giving rise to issues with balance. Her other issue is the worsening bloating, her thyroid test in the past few months was normal. Patient has expressed some disappointment with inability to get to neuromuscular. I did try to the [facility] as suggested by neurologist and hoping to hear back from No problem-specific Assessment & Plan notes found for this encounter. PAST MEDICAL HISTORY Diagnosis Date Diverticulosis of colon (without mention of hemorrhage) Essential hypertension, benign 04/04/2007 Mental disorder Migraine without aura 04/04/2007 Parkinson disease (HCC) Unspecified hypothyroidism 04/04/2007 PAST SURGICAL HISTORY Procedure Laterality Date DELIVERY ONLY , low cervical x2 COLONOSCOPY FLX DX W/COLLJ SPEC WHEN PFRMD 1994 Colonoscopy COLONOSCOPY FLX DX W/COLLJ SPEC WHEN PFRMD 04/07/2012 Colonoscopy COLONOSCOPY FLX DX W/COLLJ SPEC WHEN PFRMD 06/17/2019 Colonoscopy DILATION & CURETTAGE DX&/THER NONOBSTETRIC 09/1982 Dilation & curettage PAST SURGICAL HISTORY OF 02/1996 EMB TONSILLECTOMY & ADENOIDECTOMY <AGE 13 T/A (under age 13 years) FAMILY HISTORY Problem Relation Age of Onset Hypertension Mother Arthritis Mother Heart disease Mother Diabetes Father adult onset Emphysema Father Cancer Father lung Asthma Daughter Allergic Rhinitis Daughter Diabetes Paternal Grandmother Ischemic Heart Disease Maternal Grandfather Psychiatry Maternal Grandmother Social History Tobacco Use Smoking status: Never Smoker Smokeless tobacco: Never Used Tobacco comment: Father smoked in childhood home. 2 spouses were smokers. Vaping Use Vaping Use: Never used Substance Use Topics Alcohol use: No Drug use: No Past medical history, appointments, medications, allergies reviewed. Pertinent Lab/Diagnostic Studies are reviewed and discussed today Current Outpatient Medications: sertraline (ZOLOFT) 50 mg tablet carbidopa-levodopa (SINEMET) 25-100 mg per tablet levothyroxine (SYNTHROID) 75 mcg tablet carbidopa-levodopa CR (SINEMET CR) 50-200 mg per tablet diclofenac sodium (VOLTAREN) 1 % topical gel pravastatin (PRAVACHOL) 20 mg tablet docusate sodium (COLACE ORAL) THERAPEUTIC MULTIVITAMIN TAB Review of Systems CONSTITUTIONAL: No fevers, chills night sweats, unintended weight loss CARDIOVASCULAR: No chest pain, dyspnea, palpitations, orthopnea, PND, ankle edema. PULM: No dyspnea, unexplained cough. GI: No dysphagia/odynophagia, problematic reflux, constipation, diarrhea, changes in stool habits, hematochezia, melena. : No new urinary complaints, including dysuria, gross hematuria or pyuria. NEURO: No new balance problems, peripheral weakness/paresthesias or numbness of concern. Physical Exam BP 110/60 (BP Site: Left Arm, BP Position: Sitting, BP Cuff Size: Large Adult) Pulse 67 Temp 36.8 C (98.2 F) Resp 12 Ht 163.8 cm (5' 4.5 ) Wt 65.3 kg (144 lb) SpO2 97% BMI 24.34 kg/m General appearance: Well appearing, alert, in no acute distress, well nourished. Skin: Skin color, texture, turgor normal, no suspicious rashes or lesions Head: Normocephalic, no masses, lesions, tenderness or abnormalities Eyes: Anicteric sclera. Pupils are equally round and reactive to light. Extraocular movements are intact. Lungs: Lungs clear to auscultation. No wheezing, rhonchi, rales Heart: RRR without murmur, gallop, or rubs. Extremities: No deformities, very superficial calluses And abnormalities with the names of the first left heel but otherwise she also has significant spider veins. ASSESSMENT/PLAN: 1. Balance problem - ICD9: 781.99, ICD10: R26.89 (primary diagnosis) This could be neuropathy from Parkinson's itself. The also has a lot of loose fibrin formation 2. Hypothyroidism, unspecified type - ICD9: 244.9, ICD10: E03.9 - Instructed patient on importance of taking on an empty stomach either first thing in the morning or at bedtime. Stable - Continue current medications - LEVOTHYROXINE 75 MCG TABLET - TSH BLD 3. Numbness and tingling - ICD9: 782.0, ICD10: R20.0, R20.2 - CBC + DIFF - COMP METABOLIC PANEL - VITAMIN B12 BLOOD 4. Vitamin D deficiency - ICD9: 268.9, ICD10: E55.9 - VITAMIN D 25 HYDROXY 5. Vitamin B12 deficiency - ICD9: 266.2, ICD10: E53.8 Marvel Rizzo MD documented in this encounter [facility] 04-10-2022 History of Present illness Narrative Images from the original note were not included. This note was created using [employer]. Subjective Lou Oliver is a 76 year old female. HPI Patient presents with a rash on her face x2 days. She has had some poison dana in her flower beds and she thinks she got some on her face. Its on both sides but mostly on the left. Very itchy. Denies any other new exposures. She did try some topical Benadryl cream. No fever or chills. No cough or congestion. No sore throat. No other complaints today. Review of Systems Constitutional: Negative. HENT: Negative. Eyes: Negative. Respiratory: Negative. Cardiovascular: Negative. Gastrointestinal: Negative. Skin: Positive for rash. All other systems reviewed and are negative. PAST MEDICAL HISTORY Diagnosis Date Diverticulosis of colon (without mention of hemorrhage) Essential hypertension, benign 04/04/2007 Mental disorder Migraine without aura 04/04/2007 Parkinson disease (HCC) Unspecified hypothyroidism 04/04/2007 Current Outpatient Medications Medication Sig Dispense Refill sertraline (ZOLOFT) 50 mg tablet Take 1 tablet by mouth once daily. 90 tablet 1 carbidopa-levodopa (SINEMET) 25-100 mg per tablet Take 1 tablet by mouth five times daily. . 450 tablet 3 levothyroxine (SYNTHROID) 75 mcg tablet Take 1 tablet by mouth once daily. Take on empty stomach. For Thyroid 90 tablet 3 carbidopa-levodopa CR (SINEMET CR) 50-200 mg per tablet TAKE 1 TABLET BY MOUTH AT 11PM AND 1 TABLET IN THE AM. 180 tablet 1 diclofenac sodium (VOLTAREN) 1 % topical gel APPLY 2 GRAMS TO AFFECTED AREA 4 TIMES A DAY 200 g 2 pravastatin (PRAVACHOL) 20 mg tablet Take 1 tablet by mouth daily at bedtime. 90 tablet 3 docusate sodium (COLACE ORAL) Take by mouth as needed. THERAPEUTIC MULTIVITAMIN TAB Take by mouth. 0 predniSONE (DELTASONE) 10 mg tablet Take 4 tabs daily for 3 days, then 2 tabs daily for 3 days, then 1 tab daily for 3 days with food. 21 tablet 0 No current facility-administered medications for this visit. PAST SURGICAL HISTORY Procedure Laterality Date DELIVERY ONLY , low cervical x2 COLONOSCOPY FLX DX W/COLLJ SPEC WHEN PFRMD 1994 Colonoscopy COLONOSCOPY FLX DX W/COLLJ SPEC WHEN PFRMD 04/07/2012 Colonoscopy COLONOSCOPY FLX DX W/COLLJ SPEC WHEN PFRMD 06/17/2019 Colonoscopy DILATION & CURETTAGE DX&/THER NONOBSTETRIC 09/1982 Dilation & curettage PAST SURGICAL HISTORY OF 02/1996 EMB TONSILLECTOMY & ADENOIDECTOMY <AGE 13 T/A (under age 13 years) FAMILY HISTORY Problem Relation Age of Onset Hypertension Mother Arthritis Mother Heart disease Mother Diabetes Father adult onset Emphysema Father Cancer Father lung Asthma Daughter Allergic Rhinitis Daughter Diabetes Paternal Grandmother Ischemic Heart Disease Maternal Grandfather Psychiatry Maternal Grandmother Social History Tobacco Use Smoking status: Never Smoker Smokeless tobacco: Never Used Tobacco comment: Father smoked in childhood home. 2 spouses were smokers. Vaping Use Vaping Use: Never used Substance Use Topics Alcohol use: No Drug use: No Objective BP 122/68 Pulse 72 Temp 36.4 C (97.5 F) Resp 16 Wt 65.7 kg (144 lb 12.8 oz) SpO2 98% BMI 24.47 kg/m Physical Exam Vitals reviewed. Constitutional: Appearance: Normal appearance. HENT: Head: Atraumatic. Comments: Multiple raised erythematous papules on her face diffusely on both sides. No vesicles. Neurological: Mental Status: She is alert. Assessment and Plan ASSESSMENT/PLAN: 1. Allergic contact dermatitis due to plants, except food - ICD9: 692.6, ICD10: L23.7 - Oral Steriod tx -Prednisone taper - Anti itch therapy of claritin recommended prn - discussed skin care of rash - follow up if symptoms persist or worsen. Hina Murillo PA-C documented in this encounter [facility] 04-10-2022 Instructions Hina Murillo PA-C - 04/10/2022 11:32 AM EDT Claritin otc for itch documented in this encounter [facility] 04-05-2022 Miscellaneous Notes Reviewed patient's case with Dr. Rodriguez and he is recommending seeing both himself and rad onc for consideration of fractionated GK. Relayed to patient. Mary Ely APRN.CNP documented in this encounter [facility] 03-28-2022 History of Present illness Narrative Images from the original note were not included. [facility] NEURO-ONCOLOGY VIRTUAL VISIT NOTE This is a virtual visit using HIPAA compliant video platform. It required patient-provider interaction for the medical decision making as documented below. 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 - Images reviewed with the patient - Will review imaging with Dr. Rodriguez for final opinion of treatment vs observation - Reviewed signs and symptoms that would prompt sooner evaluation - The patient has our contact information and was advised to call if new symptoms, questions or concerns arise prior to next scheduled visit. - All questions were answered. I spent a total of 10 minutes on the date of the service which included preparing to see the patient, completing clinical documentation, obtaining and/or reviewing separately obtained history, performing a medically appropriate examination, counseling and educating the patient/family/caregiver, ordering medications, tests, or procedures, communicating results to the patient/family/caregiver and care coordination (not separately reported). Mary Ely APRN.BUCKET PUSHER Certified Nurse Practitioner cc: Semaj Rodriguez MD Subjective HISTORY OF PRESENT ILLNESS: Lou Oliver is a 76 year old year old left-handed female who is here for an incidentally discovered left frontal meningioma. This was discovered in workup for Parkinson's disease. She last saw Dr. Rodriguez on 06/01/20. INTERVAL HISTORY 03/16/21 Since she was last seen she states her Parkinsonian symptoms have improved. Her balance, tremors, anxiety, and depression have improved. She denies any new neurological symptoms or seizures. 03/28/22 Her Parkinson's is stable. She is still ambulatory and is taking PT/OT to help with balance. She denies any seizure like activity. SOCIAL HISTORY: Social History Tobacco Use Smoking status: Never Smoker Smokeless tobacco: Never Used Tobacco comment: Father smoked in childhood home. 2 spouses were smokers. Vaping Use Vaping Use: Never used Substance Use Topics Alcohol use: No Drug use: No PAST MEDICAL HISTORY Diagnosis Date Diverticulosis of colon (without mention of hemorrhage) Essential hypertension, benign 04/04/2007 Mental disorder Migraine without aura 04/04/2007 Parkinson disease (HCC) Unspecified hypothyroidism 04/04/2007 FAMILY HISTORY Problem Relation Age of Onset Hypertension Mother Arthritis Mother Heart disease Mother Diabetes Father adult onset Emphysema Father Cancer Father lung Asthma Daughter Allergic Rhinitis Daughter Diabetes Paternal Grandmother Ischemic Heart Disease Maternal Grandfather Psychiatry Maternal Grandmother Current Outpatient Medications Medication Sig sertraline (ZOLOFT) 50 mg tablet Take 1 tablet by mouth once daily. carbidopa-levodopa (SINEMET) 25-100 mg per tablet Take 1 tablet by mouth five times daily. . levothyroxine (SYNTHROID) 75 mcg tablet Take 1 tablet by mouth once daily. Take on empty stomach. For Thyroid carbidopa-levodopa CR (SINEMET CR) 50-200 mg per tablet TAKE 1 TABLET BY MOUTH AT 11PM AND 1 TABLET IN THE AM. diclofenac sodium (VOLTAREN) 1 % topical gel APPLY 2 GRAMS TO AFFECTED AREA 4 TIMES A DAY pravastatin (PRAVACHOL) 20 mg tablet Take 1 tablet by mouth daily at bedtime. docusate sodium (COLACE ORAL) Take by mouth as needed. THERAPEUTIC MULTIVITAMIN TAB Take by mouth. No current facility-administered medications for this visit. REVIEW OF SYSTEMS : Neurological : No complaint of headache No complaint of tinnitus No complaint of decreased hearing No complaint of diplopia No complaints of blurred vision. No complaint of arm/leg numbness No problem with limb coordination No complaint of syncope No complaints of seizures. No complaints of memory changes or disorientation. + hx of Parkinson's General : Constitutional: No recent fever or weight loss. Eyes: No history of glaucoma or cataracts ENMT: No recent ear infection, nasal congestion, mouth sores or sore throat. CV: No history of chest pain, palpitations or leg swelling Respiratory: No history of SOB, wheezing or recent cough. Gastrointestinal: No history of nausea, vomiting, dysphagia or abdominal pain. Genitourinary: No history of hematuria or dysuria. Musculoskeletal: No complaint of arthritis, unstable gait or arm/leg weakness Psychiatric: No history of hallucinations, + depression and anxiety Objective VIDEO EXAM : ( If completed, performed via video enable technology) NEUROLOGICAL EXAM: Higher integrative functions: Oriented to person, place & time. Memory: Good recent and remote. Attention Span and Concentration: Good. Language: Accurate naming of objects. Good comprehension. Fund of Knowledge: Good. IMAGING STUDIES: MRI Brain WO/W IVCON 03/26/22 MRI Report MRI BRAIN WO/W IVCON Exam End: 03/26/2022 12:08 PM (Final result) Narrative: * * *Final Report* * * DATE OF EXAM: Mar 26 2022 12:08PM LEONAlberto [id number] - MRI BRAIN WO/W IVCON / PROCEDURE REASON: Benign neoplasm of brain, unspecified brain region (HCC) * * * * Physician Interpretation * * * * EXAMINATION: MRI BRAIN WO/W IVCON CLINICAL HISTORY: Left spheno-orbital orbital meningioma. TECHNIQUE: Routine brain MRI protocol without and with contrast including diffusion and gradient echo images. MQ: [id number] Contrast: 13 mL Dotarem IV COMPARISON: 02/15/2021 RESULT: Acute Change: There is no evidence of an acute intracranial process. Hemorrhage: No evidence of prior parenchymal hemorrhage on the gradient echo images. Mass Lesion/ Mass Effect: Again noted is a large, dural based extra-axial soft tissue mass along the margins of the left lateral orbitofrontal and inferior frontal gyri. This mass is again noted to be essentially isointense to parenchyma on all pulse sequences and demonstrates prominent uniform enhancement following gadolinium administration compatible with the suspicion of a meningioma. This mass is again noted to overlie the lesser wing of the left sphenoid bone, orbital plate of the left frontal bone with marginal extension along the convexity. Overall, this mass measures approximately 3.6 x 2.0 x 2.0 cm in greatest AP, transverse, and CC dimensions, respectively., Upon correlation echo registered 3-D volumes, this is minimally increased in size and there has been mild interval increase in surrounding parenchymal edema. There continues to be mild compression of the overlying parenchyma, mild compression of the left frontal horn, but no significant subfalcine herniation. There is no evidence of an intracranial mass elsewhere. No abnormal parenchymal or leptomeningeal enhancement is appreciated otherwise following gadolinium administration. Chronic Change: The white matter is otherwise within normal limits of signal intensity for age. Parenchyma: No significant volume loss for age. The brain parenchyma is otherwise within normal limits of signal intensity and morphology. Ventricles: Normal caliber and morphology. Skull Base: Hypothalamic and pituitary region are grossly normal. Craniocervical junction is normal. No significant marrow replacement process. Vasculature: Major intracranial arterial structures, and dural venous sinuses show typical flow void, suggesting patency by spin echo criteria. Incidentally noted is developmental venous anomaly in the lateral inferior aspect of the right frontal pole, a normal variant. Other: The visualized paranasal sinuses and mastoid air cells are clear. The orbits and extracranial soft tissues are unremarkable. Impression: IMPRESSION: Slight interval increase in size of the left sphenoethmoidal orbital meningioma and mild increase in surrounding vasogenic edema since 02/15/2021. Otherwise stable appearance of the brain. Tenant Selector: DOMENIC Transcribe Date/Time: Mar 26 2022 12:43P Dictated by : TANYA ADAMES MD This examination was interpreted and the report reviewed and electronically signed by: TANYA ADAMES MD on Mar 26 2022 12:54PM EST Complete Results documented in this encounter [facility] 03-26-2022 History of Present illness Narrative Radiology Service Progress Note DATE OF SERVICE: March 26, 2022 TIME: 11:41 AM PATIENT IDENTITY VERIFICATION COMPLETED USING TWO (2) STANDARD IDENTIFIERS: Name and Date of confirmed by patient verbally. FALL SCREENING: Has the patient had 2 falls in the last year or 1 fall with injury or currently using an Ambulatory Assistive Device (Walker, Cane, Wheelchair, Crutches, etc.)? No PATIENT GENDER DATA: Female. status: : No status: NO. PATIENT RELEVANT IMPLANT DATA REVIEWED: Yes ALLERGIES: Reviewed and unchanged CONTRAST ALLERGY: NO. EXAM: MRI - CONTRAST TYPE: GROUP II PERIPHERAL IV DATA: Ambulatory: A peripheral IV was started in the Right antecubital site with a Angio cath: 22 gauge. RADIOLOGY DEPARTMENT: MR; Exam(s) Completed: Head: Routine Brain SIGNATURE: RT Radha(R) PATIENT NAME: Lou Oliver DATE: March 26, 2022 TIME: 11:41 AM documented in this encounter [facility] 03-12-2022 Miscellaneous Notes Please schedule appt with Erica RIVERA. If needed, perhaps movement disorders [facility] in [place] could also assist if willing. Thank you, Ranjan Connolly MD documented in this encounter [facility] Evaluation note Diagnosis Benign neoplasm of brain, unspecified brain region (HCC) [facility] Diagnosis Intracranial meningioma (HCC)- Primary Benign neoplasm of cerebral meninges [facility] Diagnosis Allergic contact dermatitis due to plants, except food- Primary Contact dermatitis and other eczema due to plants (except food) [facility] Diagnosis Balance problem- Primary Other symptoms involving nervous and musculoskeletal systems Hypothyroidism, unspecified type Numbness and tingling Disturbance of skin sensation Vitamin D deficiency Unspecified vitamin D deficiency Vitamin B12 deficiency Other B-complex deficiencies [facility] Diagnosis Meningioma (HCC)- Primary Benign neoplasm of cerebral meninges [facility]* Diagnosis Intracranial meningioma (HCC)- Primary Benign neoplasm of cerebral meninges [facility]* Diagnosis Parkinson disease (HCC)- Primary Paralysis agitans Intracranial meningioma (HCC) Benign neoplasm of cerebral meninges Small fiber 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 [facility] Diagnosis Essential hypertension, benign- Primary [facility]* Diagnosis Parkinson disease (HCC)- Primary Paralysis agitans Intracranial meningioma (HCC) Benign neoplasm of cerebral meninges Small fiber 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 Meningioma (HCC) Benign neoplasm of cerebral meninges Meningioma (HCC) Benign neoplasm of cerebral meninges Meningioma (HCC) Benign neoplasm of cerebral meninges Meningioma (HCC) Benign neoplasm of cerebral meninges Meningioma (HCC) Benign neoplasm of cerebral meninges Meningioma (HCC) Benign neoplasm of cerebral meninges [facility] Diagnosis Meningioma (HCC) Benign neoplasm of cerebral meninges Meningioma (HCC) Benign neoplasm of cerebral meninges Meningioma (HCC) Benign neoplasm of cerebral meninges Meningioma (HCC) Benign neoplasm of cerebral meninges Meningioma (HCC) Benign neoplasm of cerebral meninges Meningioma (HCC) Benign neoplasm of cerebral meninges [facility] Diagnosis Meningioma (HCC)- Primary Benign neoplasm of cerebral meninges Meningioma (HCC) Benign neoplasm of cerebral meninges Meningioma (HCC) Benign neoplasm of cerebral meninges Meningioma (HCC) Benign neoplasm of cerebral meninges [facility] Diagnosis Intracranial meningioma (HCC)- Primary Benign neoplasm of cerebral meninges Meningioma (HCC) Benign neoplasm of cerebral meninges Meningioma (HCC) Benign neoplasm of cerebral meninges Meningioma (HCC) Benign neoplasm of cerebral meninges [facility] Diagnosis Meningioma (HCC)- Primary Benign neoplasm of cerebral meninges Meningioma (HCC) Benign neoplasm of cerebral meninges Meningioma (HCC) Benign neoplasm of cerebral meninges [facility]* Diagnosis Meningioma (HCC)- Primary Benign neoplasm of cerebral meninges Meningioma (HCC) Benign neoplasm of cerebral meninges [facility]* Diagnosis Parkinson disease (HCC)- Primary Paralysis agitans 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 Small fiber 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 Intracranial meningioma (HCC) Benign neoplasm of cerebral meninges [facility] Diagnosis Recurrent major depressive disorder, remission status unspecified (HCC)- Primary Intracranial meningioma (HCC) Benign neoplasm of cerebral meninges Parkinson disease (HCC) Paralysis agitans Essential hypertension, benign Mixed hyperlipidemia Major depressive disorder, single episode, 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) Major depressive disorder, single episode, severe, without mention of psychotic behavior [facility]* Diagnosis Hypothyroidism Unspecified hypothyroidism Essential hypertension, benign [facility]* Diagnosis Parkinson disease (HCC)- Primary Paralysis agitans 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 Small fiber 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 Intracranial meningioma (HCC) Benign neoplasm of cerebral meninges [facility]* Diagnosis Neck pain- Primary Cervicalgia Neck muscle weakness Unspecified musculoskeletal disorders and symptoms referable to neck Kyphosis of thoracic region, unspecified kyphosis type [facility]* Diagnosis Neck pain- Primary Cervicalgia Neck muscle weakness Unspecified musculoskeletal disorders and symptoms referable to neck [facility]* Diagnosis Neck pain- Primary Cervicalgia Neck muscle weakness Unspecified musculoskeletal disorders and symptoms referable to neck [facility]* Diagnosis Other cervical disc degeneration at C5-C6 level- Primary Kyphosis of thoracic region, unspecified kyphosis type Neck muscle weakness Unspecified musculoskeletal disorders and symptoms referable to neck Neck deformity, acquired Acquired deformity of neck [facility]* Diagnosis Neck pain- Primary Cervicalgia Neck muscle weakness Unspecified musculoskeletal disorders and symptoms referable to neck [facility]* Diagnosis Neck pain- Primary Cervicalgia Neck muscle weakness Unspecified musculoskeletal disorders and symptoms referable to neck [facility]* Diagnosis Neck pain- Primary Cervicalgia Neck muscle weakness Unspecified musculoskeletal disorders and symptoms referable to neck [facility] [place] [facility] Diagnosis Neck pain- Primary Cervicalgia Neck muscle weakness Unspecified musculoskeletal disorders and symptoms referable to neck [facility] [place] [facility]* Diagnosis Neck pain- Primary Cervicalgia Neck muscle weakness Unspecified musculoskeletal disorders and symptoms referable to neck [facility] [place] [facility]* Diagnosis Meningioma (HCC)- Primary Benign neoplasm of cerebral meninges [facility] [place] [facility]* Diagnosis Syncope, unspecified syncope type- Primary [facility] [place] [facility]* Diagnosis Neck pain- Primary Cervicalgia Neck muscle weakness Unspecified musculoskeletal disorders and symptoms referable to neck [facility] [place] [facility]* Diagnosis Parkinson disease (HCC)- Primary Paralysis agitans Intracranial meningioma (HCC) Benign neoplasm of cerebral meninges [facility] [place] [facility]* Diagnosis Mixed hyperlipidemia [facility] [place] [facility]* Diagnosis Neck pain- Primary Cervicalgia Neck muscle weakness Unspecified musculoskeletal disorders and symptoms referable to neck [facility] [place] [facility]* Diagnosis Neck pain- Primary Cervicalgia Neck muscle weakness Unspecified musculoskeletal disorders and symptoms referable to neck [facility] [place] [facility]* Diagnosis Hypotension, unspecified hypotension type- Primary Parkinson disease (HCC) Paralysis agitans Adjustment disorder with anxiety Panic attacks Panic disorder without agoraphobia [facility] [place] [facility]* Diagnosis Parkinson's disease (HCC)- Primary Paralysis agitans Orthostatic hypotension Imbalance Abnormality of gait Dysphagia, unspecified type [facility] [place] [facility]* Diagnosis Cervical spondylosis without myelopathy- Primary Myofascial pain Mylagia and myositis, unspecified [facility] [place] [facility]* Diagnosis Hypotension, unspecified hypotension type [facility] [place] [facility]* Diagnosis Tachycardia- Primary Tachycardia, unspecified Mixed hyperlipidemia [facility] [place] [facility]* Diagnosis Hypotension, unspecified hypotension type- Primary Abdominal bloating Flatulence, eructation, and gas pain Need for influenza vaccination Need for prophylactic vaccination and inoculation against influenza [facility] [place] [facility]* Diagnosis Parkinson's disease, unspecified whether dyskinesia present, unspecified whether manifestations fluctuate- Primary Orthostatic intolerance documented in this encounter [facility]* Diagnosis Parkinson's disease, unspecified whether dyskinesia present, unspecified whether manifestations fluctuate Dysphagia, unspecified type documented in this encounter [facility] note* Diagnosis Dysphagia, unspecified type- Primary documented in this encounter [facility] note* Diagnosis Cervical spondylosis without myelopathy- Primary documented in this encounter [facility] note* Diagnosis Cervical spondylosis without myelopathy- Primary documented in this encounter [facility] note* Diagnosis Parkinson's disease, unspecified whether dyskinesia present, unspecified whether manifestations fluctuate- Primary Mixed hyperlipidemia Hypothyroidism, unspecified type Gastroesophageal reflux disease, unspecified whether esophagitis present Hypotension, unspecified hypotension type Vitamin D deficiency Unspecified vitamin D deficiency documented in this encounter [facility] note* Diagnosis Cervical spondylosis without myelopathy- Primary documented in this encounter [facility] note* Diagnosis Cervical spondylosis without myelopathy- Primary documented in this encounter [facility] note* Diagnosis Dysphagia, unspecified type- Primary Parkinson's disease, unspecified whether dyskinesia present, unspecified whether manifestations fluctuate documented in this encounter [facility] note* Diagnosis Dysphagia, unspecified type documented in this encounter [facility] note* Diagnosis Cervical spondylosis without myelopathy- Primary documented in this encounter [facility] note* Diagnosis Cervical spondylosis without myelopathy- Primary Myofascial pain Mylagia and myositis, unspecified Parkinson's disease with dyskinesia, unspecified whether manifestations fluctuate documented in this encounter [facility] note* Diagnosis Dysphagia, unspecified type Abnormal findings on diagnostic imaging of digestive system Nonspecific (abnormal) findings on radiological and other examination of gastrointestinal tract documented in this encounter [facility] note* Diagnosis Syncope, unspecified syncope type- Primary Mixed hyperlipidemia Parkinson's disease with dyskinesia, unspecified whether manifestations fluctuate Gastroesophageal reflux disease, unspecified whether esophagitis present documented in this encounter [facility] note* Diagnosis Orthostatic hypotension- Primary Syncope, unspecified syncope type Parkinson's disease with dyskinesia, unspecified whether manifestations fluctuate (HCC) Mixed hyperlipidemia documented in this encounter [facility] note* Diagnosis Myofascial pain- Primary Mylagia and myositis, unspecified [facility] [place] [facility]* Diagnosis Rash- Primary Rash and other nonspecific skin eruption Sore throat Acute pharyngitis [facility] [place] [facility] Diagnosis Gastroesophageal reflux disease with esophagitis without hemorrhage- Primary Schatzki's ring Congenital tracheoesophageal fistula, esophageal atresia and stenosis Other constipation [facility] [place] [facility]* Diagnosis Orthostatic hypotension Syncope, unspecified syncope type Parkinson's disease with dyskinesia, unspecified whether manifestations fluctuate (HCC) [facility] [place] [facility]* Diagnosis Myofascial pain- Primary Mylagia and myositis, unspecified Cervical spondylosis without myelopathy Parkinson's disease with dyskinesia, unspecified whether manifestations fluctuate (HCC) documented in this encounter [facility] note* Diagnosis Parkinson disease (HCC) Paralysis agitans [facility] [place] [facility]* Diagnosis Rash- Primary Rash and other nonspecific skin eruption [facility] [place] [facility]* Diagnosis Adjustment disorder with anxiety Hypotension, unspecified hypotension type Hypothyroidism, unspecified type [facility] [place] [facility]* Diagnosis Depression, unspecified depression type- Primary Panic attacks Panic disorder without agoraphobia Anxiety Anxiety state, unspecified Major depressive disorder, single episode, 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 note* Diagnosis Hypothyroidism, unspecified type- Primary Essential hypertension, benign Mixed hyperlipidemia Myofascial pain- Primary Mylagia and myositis, unspecified Cervical spondylosis without myelopathy [facility] [place] [facility]* Diagnosis Hypothyroidism, unspecified type- Primary Essential hypertension, benign Mixed hyperlipidemia Meningioma (HCC) Benign neoplasm of cerebral meninges [facility] [place] [facility]* Diagnosis Hypothyroidism, unspecified type- Primary Essential hypertension, benign Mixed hyperlipidemia Gastroesophageal reflux disease with esophagitis without hemorrhage- Primary Other constipation [facility] [place] [facility]* Diagnosis Hypothyroidism, unspecified type- Primary Essential hypertension, benign Mixed hyperlipidemia Myofascial pain- Primary Mylagia and myositis, unspecified Cervical spondylosis without myelopathy Parkinson's disease with dyskinesia, unspecified whether manifestations fluctuate (HCC) documented in this encounter [facility] note* Diagnosis Hypothyroidism, unspecified type- Primary Essential hypertension, benign Mixed hyperlipidemia Myofascial pain- Primary Mylagia and myositis, unspecified documented in this encounter [facility] note* Diagnosis Hypothyroidism, unspecified type- Primary Essential hypertension, benign Mixed hyperlipidemia Neck pain Cervicalgia Kyphosis of thoracic region, unspecified kyphosis type documented in this encounter [facility] note* Diagnosis Hypothyroidism, unspecified type- Primary Essential hypertension, benign Mixed hyperlipidemia Hyponatremia- Primary Hyposmolality and/or hyponatremia Hypotension, unspecified hypotension type Parkinson's disease with dyskinesia, unspecified whether manifestations fluctuate (HCC) Orthostatic hypotension Weight loss Loss of weight documented in this encounter [facility] note* Diagnosis Hypothyroidism, unspecified type- Primary Essential hypertension, benign Mixed hyperlipidemia Parkinson's disease with dyskinesia, unspecified whether manifestations fluctuate (HCC)- Primary documented in this encounter [facility] note* Diagnosis Hypothyroidism, unspecified type- Primary Essential hypertension, benign Mixed hyperlipidemia Impaired functional mobility, balance, gait, and endurance- Primary Parkinson's disease with dyskinesia, unspecified whether manifestations fluctuate (HCC) documented in this encounter [facility] note* Diagnosis Hypothyroidism, unspecified type- Primary Essential hypertension, benign Mixed hyperlipidemia Parkinson's disease with dyskinesia, unspecified whether manifestations fluctuate (HCC)- Primary Dysphagia, unspecified type documented in this encounter [facility] for referral (narrative)* Diagnostic Procedure Only (Routine) - Closed Specialty Diagnoses / Procedures Referred By Vipinac t Referred To Contact XR IMAGING Diagnoses Kyphosis of thoracic region, unspecified kyphosis type Procedures XR THORACIC LIMITED 2V AP/LAT RADEX SPINE THORACIC 2 VIEWS Marvel Rizzo MD [address] [place] [address] Xr Imaging Referral ID Status Reason Start Date Expiration Date V isits Requested Visits Authorized [id number] Closed Auto-Generate d Referral 04/05/2023 05/04/2024 1 1 * Physical Therapy (Routine) - Authorized Specialty Diagnoses / Procedures Referred By [facility] Referred To Contact [facility] Diagnoses Neck pain Neck muscle weakness Procedures CONSULT TO PHYSICAL THERAPY PHYSICAL THERAPY EVALUATION HIGH COMPLEX 45 MINS Marvel Rizzo MD [address] [place] [address] [facility] [address] [address] Referral ID Status Reason Start Date Expiration Date Visits Requested Visits Authorized [id number] Authorized PCP Requested Referral Auto-Generate d Referral 04/05/2023 04/04/2024 99 99 * Diagnostic Procedure Only (Routine) - Closed Specialty Diagnoses / Procedures Referred By Timothy ojeda Referred To Contact XR IMAGING Diagnoses Neck pain Procedures XR CERV OTHER 4V AP/LAT/OBL RADEX SPINE CERVICAL 4 OR 5 VIEWS Marvel Rizzo MD [address] [place] [address] Xr Imaging Referral ID Status Reason Start Date Expiration Date V isits Requested Visits Authorized [id number] Closed Auto-Generate d Referral 04/05/2023 05/04/2024 1 1 [facility] for referral (narrative)* Outpatient Procedure (Routine) - Closed Specialty Diagnoses / Procedures Referred By [facility] oj[facility] Referred To Contact [facility] Diagnoses Dysphagia, unspecified type Abnormal findings on diagnostic imaging of digestive system Procedures EGD DIAGNOSTIC EGD DIAGNOSTIC ESOPHAGOGASTRODUODENOSC OPY TRANSORAL DIAGNOSTIC Era Gagnon PA-C [address] [place] [address] [facility] [address] [place] [address] Referral ID Status Reason Start Date Expiration Date V isits Requested Visits Authorized [id number] Closed Auto-Generate d Referral 11/19/2023 11/19/2024 1 1 [facility] for referral (narrative)* Diagnostic Procedure Only (Routine) - Closed Specialty Diagnoses / Procedures Referred By Contac t Referred To Contact XR IMAGING Diagnoses Kyphosis of thoracic region, unspecified kyphosis type Procedures XR THORACIC LIMITED 2V AP/LAT RADEX SPINE THORACIC 2 VIEWS Marvel Rizzo MD [address] [place] [address] [place] [address] Referral ID Status Reason Start Date Expiration Date V isits Requested Visits Authorized [id number] Closed Auto-Generate d Referral 04/05/2023 05/04/2024 1 1 * Diagnostic Procedure Only (Routine) - Closed Specialty Diagnoses / Procedures Referred By Contac t Referred To Contact XR IMAGING Diagnoses Neck pain Procedures XR CERV OTHER 4V AP/LAT/OBL RADEX SPINE CERVICAL 4 OR 5 VIEWS Marvel Rizzo MD [address] [place] [address] [place] [address] Referral ID Status Reason Start Date Expiration Date V isits Requested Visits Authorized [id number] Closed Auto-Generate d Referral 04/05/2023 05/04/2024 1 1 [facility] for visit Narrative* Diagnostic Procedure Only (Routine) - Closed Specialty Diagnoses / Procedures Referred By [facility] Referred To Contact XR IMAGING Diagnoses Dysphagia, unspecified type Procedures XR MODIFIED BARIUM SWALLOW W SPEECH THERAPY RADIOLOGIC EXAM SWALLOW FUNCTION CONTRAST STUDY Zhane Sylvester PA-C [address] [place] [address] [place] [address] Referral ID Status Reason Start Date Expiration Date V isits Requested Visits Authorized [id number] Closed Auto-Generate d Referral 08/02/2023 08/31/2024 1 1 [facility] for visit Narrative* Outpatient Procedure (Routine) - Closed Specialty Diagnoses / Procedures Referred By [facility] Referred To Contact [facility] Diagnoses Dysphagia, unspecified type Abnormal findings on diagnostic imaging of digestive system Procedures EGD DIAGNOSTIC EGD DIAGNOSTIC ESOPHAGOGASTRODUODENOSC OPY TRANSORAL DIAGNOSTIC Era Gagnon PA-C [address] [place] [address] [facility] [address] [place] [address] Referral ID Status Reason Start Date Expiration Date V isits Requested Visits Authorized [id number] Closed Auto-Generate d Referral 11/19/2023 11/19/2024 1 1 [facility] Procedure Only (Routine) - Closed Specialty Diagnoses / Procedures Referred By Contac t Referred To Contact XR IMAGING Diagnoses Kyphosis of thoracic region, unspecified kyphosis type Procedures XR THORACIC LIMITED 2V AP/LAT RADEX SPINE THORACIC 2 VIEWS Marvel Rizzo MD [address] [place] [address] [place] [address] Referral ID Status Reason Start Date Expiration Date V isits Requested Visits Authorized [id number] Closed Auto-Generate d Referral 04/05/2023 05/04/2024 1 1 [facility] Advance Directives No Advanced Directives Records FoundDocuments on File Type Date Recorded 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 Advance Directive(s) 06/17/2019 8:38 AM Advance Directive(s) 06/17/2019 8:42 AM Advance Directive(s) 06/04/2019 12:21 PM Documents on File Type Date Recorded 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 Advance Directive(s) 06/17/2019 8:42 AM Documents on File Type Date Recorded 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 Advance Directive(s) 06/17/2019 8:42 AM Date Activated Date Inactivated Comments 07/14/2024 6:53 PM Question Answer Comments Full Code Order Discussed With: Patient Date Activated Date Inactivated Comments 07/14/2024 6:53 PM 07/15/2024 8:47 PM Date Activated Date Inactivated Comments 07/14/2024 6:53 PM 07/15/2024 8:47 PM Question Answer Comments Full Code Order Discussed With: Patient Reason for Referral Specialty Diagnoses / Procedures Referred By Contac t Referred To Contact [facility] Diagnoses Neck pain Neck muscle weakness Procedures PT REHAB FOLLOW UP ORDER THERAPEUTIC EXERCISES RE, EA 15 MIN. Pt [facility] [address] [place] [address] [facility] [address] [address] Referral ID Status Reason Start Date Expiration Date Visits Requested Visits Authorized [id number] Pending Review PCP Requested Referral Auto-Generate d Referral 04/09/2023 07/08/2023 1 1 Specialty Diagnoses / Procedures Referred By Contac t Referred To Contact Pain Management Diagnoses Kyphosis of thoracic region, unspecified kyphosis type Other cervical disc degeneration at C5-C6 level Neck muscle weakness Neck deformity, acquired Procedures CONSULT TO PAIN MGT OFFICE/OUTPATIENT [facility] 60-74 MINUTES Marvel Rizzo MD [address] [place] [address] Referral ID Status Reason Start Date Expiration Date Visits Requested Visits Authorized [id number] Authorized PCP Requested Referral 04/11/2023 07/10/2023 1 1 Specialty Diagnoses / Procedures Referred By Contac t Referred To Contact [facility] Diagnoses Neck pain Neck muscle weakness Procedures PT REHAB FOLLOW UP ORDER THERAPEUTIC EXERCISES RE, EA 15 MIN. Marvel Rizzo MD [address] [place] [address] [facility] [address] [address] Referral ID Status Reason Start Date Expiration Date Visits Requested Visits Authorized [id number] Pending Review PCP Requested Referral Auto-Generate d Referral 05/02/2023 07/31/2023 1 1 Specialty Diagnoses / Procedures Referred By Contac t Referred To Contact MR IMAGING Diagnoses Meningioma (HCC) Procedures MRI BRAIN WO/W IVCON MRI BRAIN BRAIN STEM W/O W/CONTRAST MATERIAL Mary Ely APRN.BUCKET PUSHER [address] [place] [address] Mr Imaging Referral ID Status Reason Start Date Expiration Date Visits Requested Visits Authorized [id number] Pending Review Auto-Generat ed Referral 05/06/2023 06/04/2024 1 1 Specialty Diagnoses / Procedures Referred By Contac t Referred To Contact Diagnoses Parkinson's disease (HCC) Dysphagia, unspecified type Procedures CONSULT TO SPEECH THERAPY Zhane Sylvester PA-C [address] [place] [id number] Referral ID Status Reason Start Date Expiration Date Visits Requested Visits Authorized [id number] Authorized PCP Requested Referral 06/18/2023 09/16/2023 99 99 Specialty Diagnoses / Procedures Referred By Contac t Referred To Contact Neurology Diagnoses Orthostatic hypotension Procedures CONSULT TO NEUROLOGY OFFICE/OUTPATIENT [facility] 60-74 MINUTES Zhane Sylvester PA-C [address] [place] [id number] Referral ID Status Reason Start Date Expiration Date Visits Requested Visits Authorized [id number] Authorized PCP Requested Referral 06/18/2023 06/17/2024 1 1 Specialty Diagnoses / Procedures Referred By Contac t Referred To Contact Gastroenterology Diagnoses Dysphagia, unspecified type Procedures CONSULT TO GASTROENTEROLOGY OFFICE/OUTPATIENT [facility] 60-74 MINUTES Zhane Sylvester PA-C [address] [place] [address] Referral ID Status Reason Start Date Expiration Date Visits Requested Visits Authorized [id number] Authorized PCP Requested Referral 3 08/01/2024 1 1 Specialty Diagnoses / Procedures Referred By Contac t Referred To Contact XR IMAGING Diagnoses Dysphagia, unspecified type Procedures XR MODIFIED BARIUM SWALLOW W SPEECH THERAPY RADIOLOGIC EXAM SWALLOW FUNCTION CONTRAST STUDY Zhane Sylvester PA-C [address] [place] [id number] [place] [id number] Referral ID Status Reason Start Date Expiration Date Visits Requested Visits Authorized [id number] Pending Review Auto-Generat ed Referral 3 08/31/2024 1 1 Specialty Diagnoses / Procedures Referred By Contac t Referred To Contact Jak Diaz MD [address] [address] Referral ID Status Reason Start Date Expiration Date Visits Re quested Visits Authorized [id number] Closed 1 1 Specialty Diagnoses / Procedures Referred By Contac t Referred To Contact Neurology Diagnoses Orthostatic hypotension Syncope, unspecified syncope type Parkinson's disease with dyskinesia, unspecified whether manifestations fluctuate (HCC) Procedures CONSULT TO NEUROLOGY OFFICE/OUTPATIENT NEW HIGH MDM 60 MINUTES Silvano Vance PA-C [address] [place] [address] Sayra Mabry MD [address] [address] Referral ID Status Reason Start Date Expiration Date Visits Requested Visits Authorized [id number] Authorized PCP Requested Referral 01/13/2024 01/12/2025 1 1 Specialty Diagnoses / Procedures Referred By Contac t Referred To Contact Diagnoses Parkinson's disease with dyskinesia, unspecified whether manifestations fluctuate (HCC) Procedures PROVIDER ORDERED FOLLOW UP OFFICE/OUTPATIENT NEW HIGH MDM 60 MINUTES Sayra Mabry MD [address] [address] Referral ID Status Reason Start Date Expiration Date Visits Requested Visits Authorized [id number] Authorized PCP Requested Referral 06/25/2024 03/25/2025 1 1 Specialty Diagnoses / Procedures Referred By Contac t Referred To Contact MR IMAGING Diagnoses Meningioma (HCC) Procedures MRI BRAIN WO/W IVCON MRI BRAIN BRAIN STEM W/O W/CONTRAST MATERIAL Mary Ely APRN.BUCKET PUSHER [address] [place] [id number] [facility] [place] [address] Referral ID Status Reason Start Date Expiration Date V isits Requested Visits Authorized [id number] Closed Auto-Generate d Referral 11/07/2023 12/06/2024 1 1 Referral ID Status Reason Start Date Expiration Date Visits Requested Visits Authorized [id number] Authorized PCP Requested Referral 10/31/2024 07/31/2025 1 1 Specialty Diagnoses / Procedures Referred By Contac t Referred To Contact [facility] Diagnoses Parkinson's disease with dyskinesia, unspecified whether manifestations fluctuate (HCC) Procedures CONSULT TO PHYSICAL THERAPY PHYSICAL THERAPY EVALUATION HIGH COMPLEX 45 MINS Sayra Mabry MD [address] [address] [facility] [address] [place] [address] Referral ID Status Reason Start Date Expiration Date Visits Requested Visits Authorized [id number] Pending Review PCP Requested Referral Auto-Generate d Referral 4 07/31/2025 99 99 Specialty Diagnoses / Procedures Referred By Contac t Referred To Contact [facility] Diagnoses Parkinson's disease with dyskinesia, unspecified whether manifestations fluctuate (HCC) Dysphagia, unspecified type Procedures CONSULT TO SPEECH THERAPY OFFICE/OUTPATIENT [facility] 60 MINUTES Sayra Mabry MD [address] [place] [phone] [facility] [address] [place] [address] Referral ID Status Reason Start Date Expiration Date Visits Requested Visits Authorized [id number] Pending Review Auto-Generat ed Referral 4 08/11/2025 1 1 Medications Administered Section Inactive Administered Medications - up to 3 most recent administrations Medication Order MAR Action Action Date Dose Rate Site BUPivacaine (PF) 0.5 % (5 mg/mL) 5 mg injection 5 mg, OTHER, ONCE, 1 dose, On Sat08/07/23 at 1030 Given by [facility] 08/07/2023 10:13 AM EDT 5 mg iohexol 300 mg IV injection (OMNIPAQUE 300) 300 mg, OTHER, ONCE, 1 dose, On Sat08/07/23 at 1030 Given by [facility] 08/07/2023 10:13 AM EDT 300 mg lidocaine (PF) 10 mg/mL (1 %) 100 mg injection (XYLOCAINE) 100 mg, OTHER, ONCE, 1 dose, On Sat08/07/23 at 1030 Given by [facility] 08/07/2023 10:13 AM EDT 100 mg Inactive Administered Medications - up to 3 most recent administrations Medication Order MAR Action Action Date Dose Rate Site BUPivacaine (PF) 0.5 % (5 mg/mL) 5 mg injection 5 mg, OTHER, ONCE, 1 dose, On Sat08/26/23 at 1000 Given by [facility] 08/26/2023 2:04 PM EST 5 mg iohexol 300 mg IV injection (OMNIPAQUE 300) 300 mg, OTHER, ONCE, 1 dose, On Sat08/26/23 at 1000 Given by [facility] 08/26/2023 2:05 PM EST 300 mg lidocaine (PF) 10 mg/mL (1 %) 100 mg injection (XYLOCAINE) 100 mg, OTHER, ONCE, 1 dose, On Sat08/26/23 at 1000 Given by [facility] 08/26/2023 2:04 PM EST 100 mg Inactive Administered Medications - up to 3 most recent administrations Medication Order MAR Action Action Date Dose Rate Site 0.9% NaCl 10 mL flush 10 mL, OTHER, ONCE, 1 dose, On Sat10/02/23 at 1000 Given by [facility] 10/02/2023 10:02 AM EST 10 mL bupivacaine(PF) 0.75 % (7.5 mg/mL) 7.5 mg injection (MARCAINE PF) 7.5 mg, OTHER, ONCE, 1 dose, On Sat10/02/23 at 1000 Given by [facility] 10/02/2023 10:02 AM EST 7.5 mg dexAMETHasone sodium phosphate 10 mg injection (DECADRON) 10 mg, OTHER, ONCE, 1 dose, On Sat10/02/23 at 1000 Given by [facility] 10/02/2023 10:02 AM EST 10 mg lidocaine (PF) 20 mg/mL (2 %) 200 mg injection (XYLOCAINE) 200 mg, OTHER, ONCE, 1 dose, On Sat10/02/23 at 1000 Given by [facility] 10/02/2023 10:03 AM EST 200 mg Summary Purpose Family History No Family History Records FoundNo Family History Records FoundNo Family History Records Found Additional Source Comments Source Comments (unrecognize d section and content) In the event this informatio n is protected by the Federal Confidentiality of Alcohol and Drug Abuse Patient Records regulations: The Federal rules restrict any use of the information to criminally investigate or prosecute any alcohol or drug abuse patient.[facility] the event this information is protected by the Federal Confidentiality of Alcohol and Drug Abuse Patient Records regulations: The Federal rules restrict any use of the information to criminally investigate or prosecute any alcohol or drug abuse patient.[facility] the event this information is protected by the Federal Confidentiality of Alcohol and Drug Abuse Patient Records regulations: The Federal rules restrict any use of the information to criminally investigate or prosecute any alcohol or drug abuse patient.[facility] the event this information is protected by the Federal Confidentiality of Alcohol and Drug Abuse Patient Records regulations: The Federal rules restrict any use of the information to criminally investigate or prosecute any alcohol or drug abuse patient.[facility] the event this information is protected by the Federal Confidentiality of Alcohol and Drug Abuse Patient Records regulations: The Federal rules restrict any use of the information to criminally investigate or prosecute any alcohol or drug abuse patient.[facility] the event this information is protected by the Federal Confidentiality of Alcohol and Drug Abuse Patient Records regulations: The Federal rules restrict any use of the information to criminally investigate or prosecute any alcohol or drug abuse patient.[facility] the event this information is protected by the Federal Confidentiality of Alcohol and Drug Abuse Patient Records regulations: The Federal rules restrict any use of the information to criminally investigate or prosecute any alcohol or drug abuse patient.[facility] the event this information is protected by the Federal Confidentiality of Alcohol and Drug Abuse Patient Records regulations: The Federal rules restrict any use of the information to criminally investigate or prosecute any alcohol or drug abuse patient.[facility] the event this information is protected by the Federal Confidentiality of Alcohol and Drug Abuse Patient Records regulations: The Federal rules restrict any use of the information to criminally investigate or prosecute any alcohol or drug abuse patient.[facility]In the event this information is protected by the Federal Confidentiality of Alcohol and Drug Abuse Patient Records regulations: The Federal rules restrict any use of the information to criminally investigate or prosecute any alcohol or drug abuse patient.[facility]In the event this information is protected by the Federal Confidentiality of Alcohol and Drug Abuse Patient Records regulations: The Federal rules restrict any use of the information to criminally investigate or prosecute any alcohol or drug abuse patient.[facility]In the event this information is protected by the Federal Confidentiality of Alcohol and Drug Abuse Patient Records regulations: The Federal rules restrict any use of the information to criminally investigate or prosecute any alcohol or drug abuse patient.[facility] the event this information is protected by the Federal Confidentiality of Alcohol and Drug Abuse Patient Records regulations: The Federal rules restrict any use of the information to criminally investigate or prosecute any alcohol or drug abuse patient.[facility] HospitalIn the event this information is protected by the Federal Confidentiality of Alcohol and Drug Abuse Patient Records regulations: The Federal rules restrict any use of the information to criminally investigate or prosecute any alcohol or drug abuse patient.[facility] HospitalIn the event this information is protected by the Federal Confidentiality of Alcohol and Drug Abuse Patient Records regulations: The Federal rules restrict any use of the information to criminally investigate or prosecute any alcohol or drug abuse patient.[facility] HospitalIn the event this information is protected by the Federal Confidentiality of Alcohol and Drug Abuse Patient Records regulations: The Federal rules restrict any use of the information to criminally investigate or prosecute any alcohol or drug abuse patient.[facility] HospitalIn the event this information is protected by the Federal Confidentiality of Alcohol and Drug Abuse Patient Records regulations: The Federal rules restrict any use of the information to criminally investigate or prosecute any alcohol or drug abuse patient.[facility] HospitalIn the event this information is protected by the Federal Confidentiality of Alcohol and Drug Abuse Patient Records regulations: The Federal rules restrict any use of the information to criminally investigate or prosecute any alcohol or drug abuse patient.[facility] HospitalIn the event this information is protected by the Federal Confidentiality of Alcohol and Drug Abuse Patient Records regulations: The Federal rules restrict any use of the information to criminally investigate or prosecute any alcohol or drug abuse patient.[facility] HospitalIn the event this information is protected by the Federal Confidentiality of Alcohol and Drug Abuse Patient Records regulations: The Federal rules restrict any use of the information to criminally investigate or prosecute any alcohol or drug abuse patient.[facility] HospitalIn the event this information is protected by the Federal Confidentiality of Alcohol and Drug Abuse Patient Records regulations: The Federal rules restrict any use of the information to criminally investigate or prosecute any alcohol or drug abuse patient.[facility] HospitalIn the event this information is protected by the Federal Confidentiality of Alcohol and Drug Abuse Patient Records regulations: The Federal rules restrict any use of the information to criminally investigate or prosecute any alcohol or drug abuse patient.[facility] HospitalIn the event this information is protected by the Federal Confidentiality of Alcohol and Drug Abuse Patient Records regulations: The Federal rules restrict any use of the information to criminally investigate or prosecute any alcohol or drug abuse patient.[facility] HospitalIn the event this information is protected by the Federal Confidentiality of Alcohol and Drug Abuse Patient Records regulations: The Federal rules restrict any use of the information to criminally investigate or prosecute any alcohol or drug abuse patient.[facility]In the event this information is protected by the Federal Confidentiality of Alcohol and Drug Abuse Patient Records regulations: The Federal rules restrict any use of the information to criminally investigate or prosecute any alcohol or drug abuse patient.[facility] HospitalIn the event this information is protected by the Federal Confidentiality of Alcohol and Drug Abuse Patient Records regulations: The Federal rules restrict any use of the information to criminally investigate or prosecute any alcohol or drug abuse patient.[facility] HospitalIn the event this information is protected by the Federal Confidentiality of Alcohol and Drug Abuse Patient Records regulations: The Federal rules restrict any use of the information to criminally investigate or prosecute any alcohol or drug abuse patient.[facility] HospitalIn the event this information is protected by the Federal Confidentiality of Alcohol and Drug Abuse Patient Records regulations: The Federal rules restrict any use of the information to criminally investigate or prosecute any alcohol or drug abuse patient.[facility] HospitalIn the event this information is protected by the Federal Confidentiality of Alcohol and Drug Abuse Patient Records regulations: The Federal rules restrict any use of the information to criminally investigate or prosecute any alcohol or drug abuse patient.[facility] HospitalIn the event this information is protected by the Federal Confidentiality of Alcohol and Drug Abuse Patient Records regulations: The Federal rules restrict any use of the information to criminally investigate or prosecute any alcohol or drug abuse patient.[facility] HospitalIn the event this information is protected by the Federal Confidentiality of Alcohol and Drug Abuse Patient Records regulations: The Federal rules restrict any use of the information to criminally investigate or prosecute any alcohol or drug abuse patient.[facility] HospitalIn the event this information is protected by the Federal Confidentiality of Alcohol and Drug Abuse Patient Records regulations: The Federal rules restrict any use of the information to criminally investigate or prosecute any alcohol or drug abuse patient.[facility] HospitalIn the event this information is protected by the Federal Confidentiality of Alcohol and Drug Abuse Patient Records regulations: The Federal rules restrict any use of the information to criminally investigate or prosecute any alcohol or drug abuse patient.[facility] HospitalIn the event this information is protected by the Federal Confidentiality of Alcohol and Drug Abuse Patient Records regulations: The Federal rules restrict any use of the information to criminally investigate or prosecute any alcohol or drug abuse patient.[facility] HospitalIn the event this information is protected by the Federal Confidentiality of Alcohol and Drug Abuse Patient Records regulations: The Federal rules restrict any use of the information to criminally investigate or prosecute any alcohol or drug abuse patient.[facility] HospitalIn the event this information is protected by the Federal Confidentiality of Alcohol and Drug Abuse Patient Records regulations: The Federal rules restrict any use of the information to criminally investigate or prosecute any alcohol or drug abuse patient.[facility] HospitalIn the event this information is protected by the Federal Confidentiality of Alcohol and Drug Abuse Patient Records regulations: The Federal rules restrict any use of the information to criminally investigate or prosecute any alcohol or drug abuse patient.[facility] HospitalIn the event this information is protected by the Federal Confidentiality of Alcohol and Drug Abuse Patient Records regulations: The Federal rules restrict any use of the information to criminally investigate or prosecute any alcohol or drug abuse patient.[facility] HospitalIn the event this information is protected by the Federal Confidentiality of Alcohol and Drug Abuse Patient Records regulations: The Federal rules restrict any use of the information to criminally investigate or prosecute any alcohol or drug abuse patient.[facility] HospitalIn the event this information is protected by the Federal Confidentiality of Alcohol and Drug Abuse Patient Records regulations: The Federal rules restrict any use of the information to criminally investigate or prosecute any alcohol or drug abuse patient.[facility] HospitalIn the event this information is protected by the Federal Confidentiality of Alcohol and Drug Abuse Patient Records regulations: The Federal rules restrict any use of the information to criminally investigate or prosecute any alcohol or drug abuse patient.[facility] HospitalIn the event this information is protected by the Federal Confidentiality of Alcohol and Drug Abuse Patient Records regulations: The Federal rules restrict any use of the information to criminally investigate or prosecute any alcohol or drug abuse patient.[facility] HospitalIn the event this information is protected by the Federal Confidentiality of Alcohol and Drug Abuse Patient Records regulations: The Federal rules restrict any use of the information to criminally investigate or prosecute any alcohol or drug abuse patient.[facility] HospitalIn the event this information is protected by the Federal Confidentiality of Alcohol and Drug Abuse Patient Records regulations: The Federal rules restrict any use of the information to criminally investigate or prosecute any alcohol or drug abuse patient.[facility] HospitalIn the event this information is protected by the Federal Confidentiality of Alcohol and Drug Abuse Patient Records regulations: The Federal rules restrict any use of the information to criminally investigate or prosecute any alcohol or drug abuse patient.[facility] HospitalIn the event this information is protected by the Federal Confidentiality of Alcohol and Drug Abuse Patient Records regulations: The Federal rules restrict any use of the information to criminally investigate or prosecute any alcohol or drug abuse patient.[facility] HospitalIn the event this information is protected by the Federal Confidentiality of Alcohol and Drug Abuse Patient Records regulations: The Federal rules restrict any use of the information to criminally investigate or prosecute any alcohol or drug abuse patient.[facility] HospitalIn the event this information is protected by the Federal Confidentiality of Alcohol and Drug Abuse Patient Records regulations: The Federal rules restrict any use of the information to criminally investigate or prosecute any alcohol or drug abuse patient.[facility] HospitalIn the event this information is protected by the Federal Confidentiality of Alcohol and Drug Abuse Patient Records regulations: The Federal rules restrict any use of the information to criminally investigate or prosecute any alcohol or drug abuse patient.[facility] HospitalIn the event this information is protected by the Federal Confidentiality of Alcohol and Drug Abuse Patient Records regulations: The Federal rules restrict any use of the information to criminally investigate or prosecute any alcohol or drug abuse patient.[facility] HospitalIn the event this information is protected by the Federal Confidentiality of Alcohol and Drug Abuse Patient Records regulations: The Federal rules restrict any use of the information to criminally investigate or prosecute any alcohol or drug abuse patient.[facility] HospitalIn the event this information is protected by the Federal Confidentiality of Alcohol and Drug Abuse Patient Records regulations: The Federal rules restrict any use of the information to criminally investigate or prosecute any alcohol or drug abuse patient.[facility] HospitalIn the event this information is protected by the Federal Confidentiality of Alcohol and Drug Abuse Patient Records regulations: The Federal rules restrict any use of the information to criminally investigate or prosecute any alcohol or drug abuse patient.[facility] HospitalIn the event this information is protected by the Federal Confidentiality of Alcohol and Drug Abuse Patient Records regulations: The Federal rules restrict any use of the information to criminally investigate or prosecute any alcohol or drug abuse patient.[facility] HospitalIn the event this information is protected by the Federal Confidentiality of Alcohol and Drug Abuse Patient Records regulations: The Federal rules restrict any use of the information to criminally investigate or prosecute any alcohol or drug abuse patient.[facility] HospitalIn the event this information is protected by the Federal Confidentiality of Alcohol and Drug Abuse Patient Records regulations: The Federal rules restrict any use of the information to criminally investigate or prosecute any alcohol or drug abuse patient.[facility] HospitalIn the event this information is protected by the Federal Confidentiality of Alcohol and Drug Abuse Patient Records regulations: The Federal rules restrict any use of the information to criminally investigate or prosecute any alcohol or drug abuse patient.[facility] HospitalIn the event this information is protected by the Federal Confidentiality of Alcohol and Drug Abuse Patient Records regulations: The Federal rules restrict any use of the information to criminally investigate or prosecute any alcohol or drug abuse patient.[facility] HospitalIn the event this information is protected by the Federal Confidentiality of Alcohol and Drug Abuse Patient Records regulations: The Federal rules restrict any use of the information to criminally investigate or prosecute any alcohol or drug abuse patient.[facility] HospitalIn the event this information is protected by the Federal Confidentiality of Alcohol and Drug Abuse Patient Records regulations: The Federal rules restrict any use of the information to criminally investigate or prosecute any alcohol or drug abuse patient.[facility] HospitalIn the event this information is protected by the Federal Confidentiality of Alcohol and Drug Abuse Patient Records regulations: The Federal rules restrict any use of the information to criminally investigate or prosecute any alcohol or drug abuse patient.[facility] HospitalIn the event this information is protected by the Federal Confidentiality of Alcohol and Drug Abuse Patient Records regulations: The Federal rules restrict any use of the information to criminally investigate or prosecute any alcohol or drug abuse patient.[facility] HospitalIn the event this information is protected by the Federal Confidentiality of Alcohol and Drug Abuse Patient Records regulations: The Federal rules restrict any use of the information to criminally investigate or prosecute any alcohol or drug abuse patient.[facility] HospitalIn the event this information is protected by the Federal Confidentiality of Alcohol and Drug Abuse Patient Records regulations: The Federal rules restrict any use of the information to criminally investigate or prosecute any alcohol or drug abuse patient.[facility] HospitalIn the event this information is protected by the Federal Confidentiality of Alcohol and Drug Abuse Patient Records regulations: The Federal rules restrict any use of the information to criminally investigate or prosecute any alcohol or drug abuse patient.[facility] HospitalIn the event this information is protected by the Federal Confidentiality of Alcohol and Drug Abuse Patient Records regulations: The Federal rules restrict any use of the information to criminally investigate or prosecute any alcohol or drug abuse patient.[facility] HospitalIn the event this information is protected by the Federal Confidentiality of Alcohol and Drug Abuse Patient Records regulations: The Federal rules restrict any use of the information to criminally investigate or prosecute any alcohol or drug abuse patient.[facility] HospitalIn the event this information is protected by the Federal Confidentiality of Alcohol and Drug Abuse Patient Records regulations: The Federal rules restrict any use of the information to criminally investigate or prosecute any alcohol or drug abuse patient.[facility] HospitalIn the event this information is protected by the Federal Confidentiality of Alcohol and Drug Abuse Patient Records regulations: The Federal rules restrict any use of the information to criminally investigate or prosecute any alcohol or drug abuse patient.[facility] HospitalIn the event this information is protected by the Federal Confidentiality of Alcohol and Drug Abuse Patient Records regulations: The Federal rules restrict any use of the information to criminally investigate or prosecute any alcohol or drug abuse patient.[facility] HospitalIn the event this information is protected by the Federal Confidentiality of Alcohol and Drug Abuse Patient Records regulations: The Federal rules restrict any use of the information to criminally investigate or prosecute any alcohol or drug abuse patient.[facility] HospitalIn the event this information is protected by the Federal Confidentiality of Alcohol and Drug Abuse Patient Records regulations: The Federal rules restrict any use of the information to criminally investigate or prosecute any alcohol or drug abuse patient.[facility] HospitalIn the event this information is protected by the Federal Confidentiality of Alcohol and Drug Abuse Patient Records regulations: The Federal rules restrict any use of the information to criminally investigate or prosecute any alcohol or drug abuse patient.[facility] HospitalIn the event this information is protected by the Federal Confidentiality of Alcohol and Drug Abuse Patient Records regulations: The Federal rules restrict any use of the information to criminally investigate or prosecute any alcohol or drug abuse patient.[facility] HospitalIn the event this information is protected by the Federal Confidentiality of Alcohol and Drug Abuse Patient Records regulations: The Federal rules restrict any use of the information to criminally investigate or prosecute any alcohol or drug abuse patient.[facility] HospitalIn the event this information is protected by the Federal Confidentiality of Alcohol and Drug Abuse Patient Records regulations: The Federal rules restrict any use of the information to criminally investigate or prosecute any alcohol or drug abuse patient.[facility] HospitalIn the event this information is protected by the Federal Confidentiality of Alcohol and Drug Abuse Patient Records regulations: The Federal rules restrict any use of the information to criminally investigate or prosecute any alcohol or drug abuse patient.[facility] HospitalIn the event this information is protected by the Federal Confidentiality of Alcohol and Drug Abuse Patient Records regulations: The Federal rules restrict any use of the information to criminally investigate or prosecute any alcohol or drug abuse patient.[facility] HospitalIn the event this information is protected by the Federal Confidentiality of Alcohol and Drug Abuse Patient Records regulations: The Federal rules restrict any use of the information to criminally investigate or prosecute any alcohol or drug abuse patient.[facility] HospitalIn the event this information is protected by the Federal Confidentiality of Alcohol and Drug Abuse Patient Records regulations: The Federal rules restrict any use of the information to criminally investigate or prosecute any alcohol or drug abuse patient.[facility] HospitalIn the event this information is protected by the Federal Confidentiality of Alcohol and Drug Abuse Patient Records regulations: The Federal rules restrict any use of the information to criminally investigate or prosecute any alcohol or drug abuse patient.[facility] HospitalIn the event this information is protected by the Federal Confidentiality of Alcohol and Drug Abuse Patient Records regulations: The Federal rules restrict any use of the information to criminally investigate or prosecute any alcohol or drug abuse patient.[facility] HospitalIn the event this information is protected by the Federal Confidentiality of Alcohol and Drug Abuse Patient Records regulations: The Federal rules restrict any use of the information to criminally investigate or prosecute any alcohol or drug abuse patient.[facility] HospitalIn the event this information is protected by the Federal Confidentiality of Alcohol and Drug Abuse Patient Records regulations: The Federal rules restrict any use of the information to criminally investigate or prosecute any alcohol or drug abuse patient.[facility] HospitalIn the event this information is protected by the Federal Confidentiality of Alcohol and Drug Abuse Patient Records regulations: The Federal rules restrict any use of the information to criminally investigate or prosecute any alcohol or drug abuse patient.[facility] HospitalIn the event this information is protected by the Federal Confidentiality of Alcohol and Drug Abuse Patient Records regulations: The Federal rules restrict any use of the information to criminally investigate or prosecute any alcohol or drug abuse patient.[facility] HospitalIn the event this information is protected by the Federal Confidentiality of Alcohol and Drug Abuse Patient Records regulations: The Federal rules restrict any use of the information to criminally investigate or prosecute any alcohol or drug abuse patient.[facility] HospitalIn the event this information is protected by the Federal Confidentiality of Alcohol and Drug Abuse Patient Records regulations: The Federal rules restrict any use of the information to criminally investigate or prosecute any alcohol or drug abuse patient.[facility] HospitalIn the event this information is protected by the Federal Confidentiality of Alcohol and Drug Abuse Patient Records regulations: The Federal rules restrict any use of the information to criminally investigate or prosecute any alcohol or drug abuse patient.[facility] HospitalIn the event this information is protected by the Federal Confidentiality of Alcohol and Drug Abuse Patient Records regulations: The Federal rules restrict any use of the information to criminally investigate or prosecute any alcohol or drug abuse patient.[facility] HospitalIn the event this information is protected by the Federal Confidentiality of Alcohol and Drug Abuse Patient Records regulations: The Federal rules restrict any use of the information to criminally investigate or prosecute any alcohol or drug abuse patient.[facility] HospitalIn the event this information is protected by the Federal Confidentiality of Alcohol and Drug Abuse Patient Records regulations: The Federal rules restrict any use of the information to criminally investigate or prosecute any alcohol or drug abuse patient.[facility] HospitalIn the event this information is protected by the Federal Confidentiality of Alcohol and Drug Abuse Patient Records regulations: The Federal rules restrict any use of the information to criminally investigate or prosecute any alcohol or drug abuse patient.[facility] HospitalIn the event this information is protected by the Federal Confidentiality of Alcohol and Drug Abuse Patient Records regulations: The Federal rules restrict any use of the information to criminally investigate or prosecute any alcohol or drug abuse patient.[facility] HospitalIn the event this information is protected by the Federal Confidentiality of Alcohol and Drug Abuse Patient Records regulations: The Federal rules restrict any use of the information to criminally investigate or prosecute any alcohol or drug abuse patient.[facility] HospitalIn the event this information is protected by the Federal Confidentiality of Alcohol and Drug Abuse Patient Records regulations: The Federal rules restrict any use of the information to criminally investigate or prosecute any alcohol or drug abuse patient.[facility] HospitalIn the event this information is protected by the Federal Confidentiality of Alcohol and Drug Abuse Patient Records regulations: The Federal rules restrict any use of the information to criminally investigate or prosecute any alcohol or drug abuse patient.[facility] HospitalIn the event this information is protected by the Federal Confidentiality of Alcohol and Drug Abuse Patient Records regulations: The Federal rules restrict any use of the information to criminally investigate or prosecute any alcohol or drug abuse patient.[facility] HospitalIn the event this information is protected by the Federal Confidentiality of Alcohol and Drug Abuse Patient Records regulations: The Federal rules restrict any use of the information to criminally investigate or prosecute any alcohol or drug abuse patient.[facility] HospitalIn the event this information is protected by the Federal Confidentiality of Alcohol and Drug Abuse Patient Records regulations: The Federal rules restrict any use of the information to criminally investigate or prosecute any alcohol or drug abuse patient.[facility] HospitalIn the event this information is protected by the Federal Confidentiality of Alcohol and Drug Abuse Patient Records regulations: The Federal rules restrict any use of the information to criminally investigate or prosecute any alcohol or drug abuse patient.[facility] HospitalIn the event this information is protected by the Federal Confidentiality of Alcohol and Drug Abuse Patient Records regulations: The Federal rules restrict any use of the information to criminally investigate or prosecute any alcohol or drug abuse patient.[facility] HospitalIn the event this information is protected by the Federal Confidentiality of Alcohol and Drug Abuse Patient Records regulations: The Federal rules restrict any use of the information to criminally investigate or prosecute any alcohol or drug abuse patient.[facility] Care Teams (unrecognized sec tion and content) Healthcare Or Medical Relationship Specialty Start Date End Date Marvel Rizzo MD [address] [place] [address] PCP - General Internal Medicine 08/06/16 Healthcare Or Medical Relationship Specialty Start Date End Date Marvel Rizzo MD [address] [place] [address] PCP - General Internal Medicine 08/06/16 Healthcare Or Medical Relationship Specialty Start Date End Date Marvel Rizzo MD [address] [place] [address] PCP - General Internal Medicine 08/06/16 Healthcare Or Medical Relationship Specialty Start Date End Date Marvel Rizzo MD [address] [place] [address] PCP - General Internal Medicine 08/06/16 Healthcare Or Medical Relationship Specialty Start Date End Date Marvel Rizzo MD [address] [place] [address] PCP - General Internal Medicine 08/06/16 Healthcare Or Medical Relationship Specialty Start Date End Date Marvel Rizzo MD [address] [place] [address] PCP - General Internal Medicine 08/06/16 Healthcare Or Medical Relationship Specialty Start Date End Date Marvel Rizzo MD [address] [place] [address] PCP - General Internal Medicine 08/06/16 Healthcare Or Medical Relationship Specialty Start Date End Date Marvel Rizzo MD [address] [place] [address] PCP - General Internal Medicine 08/06/16 Healthcare Or Medical Relationship Specialty Start Date End Date Marvel Rizzo MD [address] [place] [address] PCP - General Internal Medicine 08/06/16 Healthcare Or Medical Relationship Specialty Start Date End Date Marvel Rizzo MD [address] [place] [address] PCP - General Internal Medicine 08/06/16 Healthcare Or Medical Relationship Specialty Start Date End Date Marvel Rizzo MD [address] [place] [address] PCP - General Internal Medicine 08/06/16 Healthcare Or Medical Relationship Specialty Start Date End Date Marvel Rizzo MD [address] [place] [address] PCP - General Internal Medicine 08/06/16 Healthcare Or Medical Relationship Specialty Start Date End Date Marvel Rizzo MD [address] [place] [address] PCP - General Internal Medicine 08/06/16 Healthcare Or Medical Relationship Specialty Start Date End Date Marvel Rizzo MD [address] [place] [address] PCP - General Internal Medicine 08/06/16 Healthcare Or Medical Relationship Specialty Start Date End Date Marvel Rizzo MD [address] [place] [address] PCP - General Internal Medicine 08/06/16 Healthcare Or Medical Relationship Specialty Start Date End Date Marvel Rizzo MD [address] [place] [address] PCP - General Internal Medicine 08/06/16 Healthcare Or Medical Relationship Specialty Start Date End Date Marvel Rizzo MD [address] [place] [address] PCP - General Internal Medicine 08/06/16 Healthcare Or Medical Relationship Specialty Start Date End Date Marvel Rizzo MD [address] [place] [address] PCP - General Internal Medicine 08/06/16 Healthcare Or Medical Relationship Specialty Start Date End Date Marvel Rizzo MD [address] [place] [address] PCP - General Internal Medicine 08/06/16 Healthcare Or Medical Relationship Specialty Start Date End Date Marvel Rizzo MD [address] [place] [address] PCP - General Internal Medicine 08/06/16 Healthcare Or Medical Relationship Specialty Start Date End Date Marvel Rizzo MD [address] [place] [address] PCP - General Internal Medicine 08/06/16 Healthcare Or Medical Relationship Specialty Start Date End Date Marvel Rizzo MD [address] [place] [address] PCP - General Internal Medicine 08/06/16 Healthcare Or Medical Relationship Specialty Start Date End Date Marvel Rizzo MD [address] [place] [address] PCP - General Internal Medicine 08/06/16 Healthcare Or Medical Relationship Specialty Start Date End Date Marvel Rizzo MD [address] [facility] [place] [address] PCP - General Internal Medicine 08/06/16 Healthcare Or Medical Relationship Specialty Start Date End Date Marvel Rizzo MD [address] [facility] [place] [address] PCP - General Internal Medicine 08/06/16 Healthcare Or Medical Relationship Specialty Start Date End Date Marvel Rizzo MD [address] [facility] [place] [address] PCP - General Internal Medicine 08/06/16 Healthcare Or Medical Relationship Specialty Start Date End Date Mavrel Rizzo MD [address] [facility] [place] [address] PCP - General Internal Medicine 08/06/16 Healthcare Or Medical Relationship Specialty Start Date End Date Marvel Rizzo MD [address] [facility] [place] [address] PCP - General Internal Medicine 08/06/16 Healthcare Or Medical Relationship Specialty Start Date End Date Marvel Rizzo MD [address] [facility] [place] [address] PCP - General Internal Medicine 08/06/16 Healthcare Or Medical Relationship Specialty Start Date End Date Marvel Rizzo MD [address] [facility] [place] [address] PCP - General Internal Medicine 08/06/16 Healthcare Or Medical Relationship Specialty Start Date End Date Marvel Rizzo MD [address] [facility] [place] [address] PCP - General Internal Medicine 08/06/16 Healthcare Or Medical Relationship Specialty Start Date End Date Marvel Rizzo MD [address] [place] [address] PCP - General Internal Medicine 08/06/16 Healthcare Or Medical Relationship Specialty Start Date End Date Marvel Rizzo MD [address] [place] [address] PCP - General Internal Medicine 08/06/16 Healthcare Or Medical Relationship Specialty Start Date End Date Marvel Rizzo MD [address] [place] [address] PCP - General Internal Medicine 08/06/16 Healthcare Or Medical Relationship Specialty Start Date End Date Marvel Rizzo MD [address] [place] [address] PCP - General Internal Medicine 08/06/16 Healthcare Or Medical Relationship Specialty Start Date End Date Marvel Rizzo MD [address] [place] [address] PCP - General Internal Medicine 08/06/16 Healthcare Or Medical Relationship Specialty Start Date End Date Marvel Rizzo MD [address] [place] [address] PCP - General Internal Medicine 08/06/16 Healthcare Or Medical Relationship Specialty Start Date End Date Marvel Rizzo MD [address] [place] [address] PCP - General Internal Medicine 08/06/16 Healthcare Or Medical Relationship Specialty Start Date End Date Marvel Rizzo MD [address] [place] [address] PCP - General Internal Medicine 08/06/16 Healthcare Or Medical Relationship Specialty Start Date End Date Marvel Rizzo MD [address] [place] [address] PCP - General Internal Medicine 08/06/16 Healthcare Or Medical Relationship Specialty Start Date End Date Marvel Rizzo MD [address] [place] [address] PCP - General Internal Medicine 08/06/16 Healthcare Or Medical Relationship Specialty Start Date End Date Marvel Rizzo MD [address] [place] [address] PCP - General Internal Medicine 08/06/16 Healthcare Or Medical Relationship Specialty Start Date End Date Marvel Rizzo MD [address] [place] [address] PCP - General Internal Medicine 08/06/16 Healthcare Or Medical Relationship Specialty Start Date End Date Marvel Rizzo MD [address] [place] [address] PCP - General Internal Medicine 08/06/16 Healthcare Or Medical Relationship Specialty Start Date End Date Marvel Rizzo MD [address] [place] [address] PCP - General Internal Medicine 08/06/16 Healthcare Or Medical Relationship Specialty Start Date End Date Marvel Rizzo MD [address] [place] [address] PCP - General Internal Medicine 08/06/16 Healthcare Or Medical Relationship Specialty Start Date End Date Marvel Rizzo MD [address] [place] [address] PCP - General Internal Medicine 08/06/16 Healthcare Or Medical Relationship Specialty Start Date End Date Marvel Rizzo MD [address] [place] [address] PCP - General Internal Medicine 08/06/16 Healthcare Or Medical Relationship Specialty Start Date End Date Marvel Rizzo MD [address] [place] [address] PCP - General Internal Medicine 08/06/16 Healthcare Or Medical Relationship Specialty Start Date End Date Marvel Rizzo MD [address] [place] [address] PCP - General Internal Medicine 08/06/16 Healthcare Or Medical Relationship Specialty Start Date End Date Marvel Rizzo MD [address] [place] [address] PCP - General Internal Medicine 08/06/16 Healthcare Or Medical Relationship Specialty Start Date End Date Marvel Rizzo MD [address] [place] [address] PCP - General Internal Medicine 08/06/16 Healthcare Or Medical Relationship Specialty Start Date End Date Marvel Rizzo MD [address] [place] [address] PCP - General Internal Medicine 08/06/16 Healthcare Or Medical Relationship Specialty Start Date End Date Marvel Rizzo MD [address] [place] [address] PCP - General Internal Medicine 08/06/16 Healthcare Or Medical Relationship Specialty Start Date End Date Marvel Rizzo MD [address] [facility] [place] [address] PCP - General Internal Medicine 08/06/16 Kim Madrigal, RN [address] [facility] [place] [address] Primary Care [employer] 07/16/24 Healthcare Or Medical Relationship Specialty Start Date End Date Marvel Rizzo MD [address] [place] [address] PCP - General Internal Medicine 08/06/16 Kim Madrigal, RN [address] [place] [address] Primary Care [employer] 07/16/24 Healthcare Or Medical Relationship Specialty Start Date End Date Marvel Rizzo MD [address] [place] [address] PCP - General Internal Medicine 08/06/16 Kim Madrigal, RN [address] [place] [address] Primary Care [employer] 07/16/24 Healthcare Or Medical Relationship Specialty Start Date End Date Marvel Rizzo MD [address] [place] [address] PCP - General Internal Medicine 08/06/16 Kim Madrigal, TUYET [address] [facility] [place] [address] Primary Care [employer] 07/16/24 Healthcare Or Medical Relationship Specialty Start Date End Date Marvel Rizzo MD [address] [place] [address] PCP - General Internal Medicine 08/06/16 Kim Madrigal, RN [address] [place] [address] Primary Care [employer] 07/16/24 Reason for Visit (unrecogniz ed section and content) Reason Comments Established Patient Procedure Neck Pain Specialty Diagnoses / Procedures Referred By Contac t Referred To Contact Pain Management / PAIN MANAGEMENT Diagnoses Spondylosis without myelopathy or radiculopathy, cervical region Medial branch blocks bilateral C4-5,5-6 under fluoroscopic guidance x 2, RFA if positive x 2 Procedures NJX DX/THER AGT PVRT FACET JT CRV/THRC 1 LEVEL NJX DX/THER AGT PVRT FACET JT CRV/THRC 2ND LEVEL PROCEDURE 20 Jak Diaz MD [address] [place] [address] Jak Diaz MD [address] [place] [address] Referral ID Status Reason Start Date Expiration Date V isits Requested Visits Authorized [id number] Pending Review 08/26/2023 11/24/2023 1 1 Reason Comments PT Progress Note Specialty Diagnoses / Procedures Referred By Contac t Referred To Contact [facility] Diagnoses Neck pain Neck muscle weakness Procedures CONSULT TO PHYSICAL THERAPY PHYSICAL THERAPY EVALUATION HIGH COMPLEX 45 MINS Marvel Rizzo MD [address] [place] [address] [facility] [address] [address] Referral ID Status Reason Start Date Expiration Date Visits Requested Visits Authorized [id number] Authorized PCP Requested Referral Auto-Generate d Referral 04/05/2023 04/04/2024 99 99 Reason Comments Follow Up Reason Comments Patient Update Reason Comments Rash Pt reported possible poison dana x2 days face, neck, ears, (LT) eye denied visual changes Reason Comments Established Patient 4 month follow up Reason Comments Established Patient Reason Comments Consult Reason Comments F/U 6 months Reason Comments Patient Education Mask simulation inst ructions Reason Comments Radiology CT Specialty Diagnoses / Procedures Referred By Contac t Referred To Contact CT IMAGING Diagnoses Meningioma (HCC) Procedures CT BRAIN STEREOLOCAL WO IVCON CT GUIDANCE STEREOTACTIC LOCALIZATION Semaj Rodriguez MD [address] [place] [address] Ct Imaging Referral ID Status Reason Start Date Expiration Date V isits Requested Visits Authorized [id number] Closed Auto-Generate d Referral 06/15/2022 07/15/2023 1 1 Reason Comments Procedure Gamma Knife SRS Reason Comments Follow Up 6 month Reason Comments Recheck 3 months Reason Comments PT Eval Reason Comments Physical Therapy Specialty Diagnoses / Procedures Referred By Vipinac t Referred To Contact [facility] Diagnoses Neck pain Neck muscle weakness Procedures CONSULT TO PHYSICAL THERAPY PHYSICAL THERAPY EVALUATION HIGH COMPLEX 45 MINS Marvel Rizzo MD [address] [place] [address] [facility] [address] [place] [address] Reason Comments Results Reason Comments Follow Up Reason Comments Syncope Reason Comments New Patient Evaluation Reason Comments Refill Request Reason Comments Appointment Hospital Follow Up Reason Comments ED Follow-up faiting and low BP a nd labs, new med Reason Comments low blood pressure Dizziness Reason Comments New Patient Pt reported decrease d muscle tone, weakness. Reason Comments New Patient Neck Pain Bilateral Reason Comments Injection Questions Reason Onset Date Comments Refill Request 07/08/2023 Reason Comments Established Patient Follow-Up Reason Onset Date Comments Follow Up 6 week follow up Immunizations 07/19/2023 Flu vaccination Reason Comments Parkinsons Follow up Reason Comments Speech Evaluation Speech Discharge Specialty Diagnoses / Procedures Referred By Timothy t Referred To Contact Diagnoses Parkinson's disease Dysphagia, unspecified type Procedures CONSULT TO SPEECH THERAPY Zhane Sylvester PA-C [address] [place] [address] Referral ID Status Reason Start Date Expiration Date Visits Requested Visits Authorized [id number] Authorized PCP Requested Referral 06/18/2023 09/16/2023 99 99 Reason Comments Established Patient Neck Pain Procedure Referral ID Status Reason Start Date Expiration Date V isits Requested Visits Authorized [id number] Pending Review 08/07/2023 11/05/2023 1 1 Reason Comments Procedure Follow Up DR DIAZ 08/07/23 Reason Comments Follow Up Medial Branch Block (Diagnostic only, NO STEROIDS) under fluoroscopic guidance BILATERAL SIDES at C4-5 and C5-6 Reason Comments Recheck 3 month follow up Reason Comments Follow Up Cervical MBB Reason Comments Speech Instrumental Swallow Eval Speech Discharge Specialty Diagnoses / Procedures Referred By Timothy t Referred To Contact XR IMAGING Diagnoses Dysphagia, unspecified type Procedures XR MODIFIED BARIUM SWALLOW W SPEECH THERAPY RADIOLOGIC EXAM SWALLOW FUNCTION CONTRAST STUDY Zhane Sylvester PA-C [address] [place] [address] [place] [id number] Referral ID Status Reason Start Date Expiration Date V isits Requested Visits Authorized [id number] Closed Auto-Generate d Referral 08/02/2023 08/31/2024 1 1 Reason Comments Injections CRFA Specialty Diagnoses / Procedures Referred By Contac t Referred To Contact Pain Management / PAIN MANAGEMENT Diagnoses Spondylosis without myelopathy or radiculopathy, cervical region BILATERAL SIDES at C4-5 and C5-6 RFA Procedures DSTR NROLYTC AGNT PARVERTEB FCT SNGL CRVCL/THORA DSTR NROLYTC AGNT PARVERTEB FCT ADDL CRVCL/THORA PROCEDURE 30 Estelle Dodge, MMI TEACHER.BUCKET PUSHER [address] [place] [address] Jak Diaz MD [address] [facility] [address] [place] [address] Referral ID Status Reason Start Date Expiration Date V isits Requested Visits Authorized [id number] Pending Review 10/02/2023 12/31/2023 1 1 Reason Comments Follow Up Neck Pain Reason Comments Med Change Request Reason Comments Follow Up 3 month follow up, p assed out at exercise class on 11/27/23 Reason Comments Appointment Reason Comments Follow Up labs, fell December 26 a t movement class fell after standing up from a sitting position Reason Comments Follow Up Neck Pain Reason Comments Results Orders Reason Comments Trigger Point Injection Neck and shoulde r Specialty Diagnoses / Procedures Referred By Contac t Referred To Contact Pain Management / PAIN MANAGEMENT Diagnoses Myalgia, other site TPIs cervical paraspinals, upper traps, bilaterally Procedures TRIGGER POINT INJECTION MULTI 3+ MUSCLE GRP SPECIALTY INJECTION Jak Diaz MD [address] [facility] [address] [place] [address] Grace Hunt, MMI TEACHER.BUCKET PUSHER [address] [place] [address] Referral ID Status Reason Start Date Expiration Date Visits Re quested Visits Authorized [id number] Closed 03/04/2024 10/20/2024 1 1 Reason Comments Hives On R side of neck an d Left eye outer area, states she gets this every year from her garden x 3 days Reason Comments Recheck Dysphagia- pt states she is doing a little better Reason Comments New Patient Specialty Diagnoses / Procedures Referred By Timothy t Referred To Contact Neurology Diagnoses Orthostatic hypotension Syncope, unspecified syncope type Parkinson's disease with dyskinesia, unspecified whether manifestations fluctuate (HCC) Procedures CONSULT TO NEUROLOGY OFFICE/OUTPATIENT [facility] 60 MINUTES Silvano Vance PA-C [address] [place] [address] Sayra Mabry MD [address] [address] Referral ID Status Reason Start Date Expiration Date V isits Requested Visits Authorized [id number] Closed PCP Requested Referral 01/13/2024 01/12/2025 1 1 Reason Comments Returning Patient's Call Reason Comments Rash left eye matting and itching, neck x 3 days Reason Onset Date Comments Refill Request 05/15/2024 Reason Comments Panic attacks Reason Comments Recheck Panic attack, see ph one note Reason Comments Follow Up 3- month follow-up. Had Trigger Point Injection on last visit with Grace Hunt APRN.CNP and she stated that it helped. RFA in November did help. Neck Pain Bilateral - left issac e is worse Specialty Diagnoses / Procedures Referred By Timothy t Referred To Contact MR IMAGING Diagnoses Meningioma (HCC) Procedures MRI BRAIN WO/W IVCON MRI BRAIN BRAIN STEM W/O W/CONTRAST MATERIAL Mary Ely APRN.BUCKET PUSHER [address] [place] [address] [place] [id number] Referral ID Status Reason Start Date Expiration Date V isits Requested Visits Authorized [id number] Closed Auto-Generate d Referral 11/07/2023 12/06/2024 1 1 Reason Comments GERD Reason Comments Trigger Point Injection tpi Neck Pain Bilateral - left is worse Pain (Shoulder Pain) Bilateral Specialty Diagnoses / Procedures Referred By Contac t Referred To Contact Pain Management / PAIN MANAGEMENT Diagnoses Myalgia, other site TPI Procedures TRIGGER POINT INJECTION MULTI 3+ MUSCLE GRP SPECIALTY INJECTION Grace Hunt APRN.BUCKET PUSHER [address] [place] [address] Jak Diaz MD [address] [facility] [address] [place] [address] Referral ID Status Reason Start Date Expiration Date V isits Requested Visits Authorized [id number] New Request 07/02/2024 10/20/2024 3 3 Reason Onset Date Comments Transition Of Care 07/16/2024 Hospital [facility] 07/15 - Initial outreach Reason Comments Hospital Follow Up Reason Onset Date Comments Transition Of Care 07/23/2024 Follow up day 8 Reason Comments Follow Up Reason Comments PT Eval Specialty Diagnoses / Procedures Referred By Contac t Referred To Contact [facility] Diagnoses Parkinson's disease with dyskinesia, unspecified whether manifestations fluctuate (HCC) Procedures CONSULT TO PHYSICAL THERAPY PHYSICAL THERAPY EVALUATION HIGH COMPLEX 45 MINS Sayra Mabry MD [facility] [address] [facility] [address] [place] [address] [facility] [address] [place] [id number] Referral ID Status Reason Start Date Expiration Date Visits Requested Visits Authorized [id number] Authorized PCP Requested Referral Auto-Generate d Referral 10/20/2024 99 99 Inactive Administered Medications - up to 3 most recent administrations Administered Medications (un recognized section and content) Medication Order MAR Action Action Date Dose Rate Site lactated ringers iv infusion 30 mL/hr, INTRAVENOUS, CONTINUOUS, Starting on Sat11/29/23 at 1000, Until Sat11/29/23 at 1122, Preprocedure New Bag/Syringe/Bottle 11/29/2023 9:49 AM EST 30 mL/hr 30 mL/hr INFORMATION SOURCE (unrecogn ized section and content) DATE CREATED AUTHOR 07/17/2024 [facility] DATE CREATED AUTHOR AUTHOR'S ORGANIZ ATION 08/02/2024 [facility] DATE CREATED AUTHOR AUTHOR'S EDGARDO ATION 08/12/2024 [facility] FOR RECORDS PERTAINING TO PATIENTS WHO ARE OR HAVE BEEN ENROLLED IN A CHEMICAL DEPENDENCY/SUBSTANCEABUSE PROGRAM, SOME INFORMATION MAY BE OMITTED. This clinical summary was aggregated from multiple sources. Caution should be exercised in using it in the provision of clinical care. This summary normalizes information from multiple sources, and as a consequence, information in this document may materially change the coding, format and clinical context of patient data. In addition, data may be omitted in some cases. CLINICAL DECISIONS SHOULD BE BASED ON THE PRIMARY CLINICAL RECORDS. [facility] [employer] [facility]. provides no warranty or guarantee of the accuracy or completeness of information in this document.
[2024-08-12] MEDS: Carbidopa/Levodopa 25/100 Tablet PO (21:54)
[2024-08-12] MEDS: CARBIDOPA/LEVODOPA CR 50/200 Tablet PO (21:55)
[2024-08-13 03:01] VITALS: BP 101/74; PULSE 68; RESP 18; TEMP 36.4; O2SAT 95
[2024-08-13 04:35] LABS: Absolute Lymphocyte Count 1.47 X10^3/uL (0.83-4.51); Absolute Neutrophil Count 3.3 X10^3/uL (2.0-7.7); Basophil# 0.02 X10^3/uL; Basophil% 0.4 % (0-1); Eosinophil# 0.08 X10^3/uL; Eosinophils% 1.5 % (0-5); Hematocrit 31.1 % (37-47); Hemoglobin 10.2 g/dL (12.0-15.0); Lymphocyte # 1.47 X10^3/ul (0.83-4.51); Lymphocyte % 27.7 % (19-41); Mean Corp Hgb Conc 32.8 g/dL (32-36); Mean Corpuscular Hgb 30.9 pg (27.0-32.0); Mean Corpuscular Volume 94.2 fL (81-99); Mean Platelet Vol. 9.8 fl (6.2-12.0); Monocyte# 0.37 X10^3/uL; NRBC Flagged by Analyzer 0 % (0-5); Neutrophil # 3.34 X10^3/uL (2.7-7.7); Platelet Count 224 K/mm3 (150-450); RBC Distribution Width CV 12.6 % (11.6-14.6); RBC Distribution Width SD 43.1 fl (35.1-43.9); White Blood Count 5.3 K/mm3 (4.4-11.0)
[2024-08-13 04:53] LABS: Anion Gap 4 (5-15); BUN 24 mg/dL (7-18); BUN/Creat Ratio 27.4 RATIO (10-20); Calcium,Total 8.8 mg/dL (8.5-10.1); Chloride 111 mmol/L (98-107); Creatinine, Serum 0.88 mg/dL (0.55-1.02); EST Glomerular Filtration Rate 67 mL/min (>60); Est Glom Filt Rate - Afr Amer 80 mL/min (>60); Glucose 119 mg/dL (74-106); Magnesium 1.9 mg/dL (1.6-2.6); Potassium 3.7 mmol/L (3.5-5.1); Sodium Level 142 mmol/L (136-145)
[2024-08-13] MEDS: CARBIDOPA/LEVODOPA CR 50/200 Tablet PO (05:59)
[2024-08-13] MEDS: Carbidopa/Levodopa 25/100 Tablet PO ×3 (05:59→13:21)
[2024-08-13] MEDS: Levothyroxine 75 MCG Tablet PO (05:59)
[2024-08-13] MEDS: Midodrine HCl 5 MG Tablet 10 MG PO ×2 (08:27→11:22)
--- NOTE | 2024-08-13 08:44 | PN.HOSP_ITS ---
Reason for Visit Reason for Visit: Diagnoses Syncope and collapse (08/12/24) Subjective Subjective Feels ok despite orthostatic hypotension Objective Data Objective Data Vital Signs: Vital Signs Temp Pulse Resp BP Pulse Ox O2 Del Method 36.4 C L 68 18 101/74 95 Room Air 08/13/24 03:01 08/13/24 03:01 08/13/24 03:01 08/13/24 03:01 08/13/24 03:01 08/13/24 03:01 Oxygen Delivery Method Room Air Weight: 63.8 kg Body Mass Index (BMI) 24.1 Intake & Output: Intake and Output for Last 24 Hours 08/11/24 08/12/24 08/13/24 23:59 23:59 23:59 Intake Total 1150 / 1150 Balance 1150 / 1150 Lab / Micro Data 08/13/24 03:29 08/13/24 03:29 Labs: Laboratory Results - last 24 hr 08/12/24 14:48: WBC 5.8, RBC 3.41 L, Hgb 10.3 L, Hct 32.3 L, MCV 94.7, MCH 30.2, MCHC 31.9 L, RDW Std Deviation 43.5, RDW Coeff of Kris 12.5, Plt Count 217, MPV 9.6, Immature Gran % (Auto) 0.300, Neut % (Auto) 66.1, Lymph % (Auto) 24.4, Sharp % (Auto) 7.8, Eos % (Auto) 0.9, Baso % (Auto) 0.5, Absolute Neuts (auto) 3.8, Absolute Lymphs (auto) 1.41, Nucleated RBC % 0, Sodium 142, Potassium 4.0, C hloride 110 H, Carbon Dioxide 27.0, Anion Gap 6, BUN 23 H, Creatinine 1.06 H, Estim Creat Clear Calc 37.77, Est GFR (MDRD) Af Amer 64, Est GFR (MDRD) Non-Af 53 L, BUN/Creatinine Ratio 21.7 H, Glucose 98, Calcium 8.9, Troponin I High Sens 5, Urine Color Yellow, Urine Clarity Clear, Urine pH 7.0, Ur Specific [place] 1.005, Urine Protein Negative, Urine Glucose (UA) Normal, Urine Ketones Negative, Urine Occult Blood 10 H, Urine Nitrite Negative, Urine Bilirubin Negative, Urine Urobilinogen Normal, Ur Leukocyte Esterase 500 H, Urine RBC 0 SEEN, Urine WBC 5-10 SEEN, Ur Squamous Epith Cells 0 SEEN, Urine Bacteria 1+, Urine Mucus 0 SEEN 08/13/24 03:29: WBC 5.3, RBC 3.30 L, Hgb 10.2 L, Hct 31.1 L, MCV 94.2, MCH 30.9, MCHC 32.8, RDW Std Deviation 43.1, RDW Coeff of Kris 12.6, Plt Count 224, MPV 9.8, Immature Gran % (Auto) 0.400, Neut % (Auto) 63.0, Lymph % (Auto) 27.7, Sharp % (Auto) 7.0, Eos % (Auto) 1.5, Baso % (Auto) 0.4, Absolute Neuts (auto) 3.3, Absolute Lymphs (auto) 1.47, Nucleated RBC % 0, Sodium 142, Potassium 3.7, C hloride 111 H, Carbon Dioxide 27.0, Anion Gap 4 L, BUN 24 H, Creatinine 0.88, Estim Creat Clear Calc 45.50, Est GFR (MDRD) Af Amer 80, Est GFR (MDRD) Non-Af 67, BUN/Creatinine Ratio 27.4 H, Glucose 119 H, Calcium 8.8, Magnesium 1.9 Radiography Diagnostic Testing: Radiology Impression Chest X-Ray 08/12/24 14:50 IMPRESSION: No acute abnormality is seen. Electronically Signed: Helder Napoles MD at 15:12 EDT , Physical Exam Const alert and no apparent distress HEENT head/scalp atraumatic and moist oral mucous membranes Neuro oriented x3 Assessment & Plan Assessment/Plan (1) Pre-syncope: PLAN: Plan Orthostatic hypotension * already on fludrocortisone. Midodrine added. * Complicated by Parkinson's disease with known autonomic dysfunction with this disease process. * Encourage patient to drink more fluid, increased sodium intake. Patient is going to get some abdominal compression binder that is being prescribed by her neurologist to see if that would help with her orthostasis. Patient is still very orthostatic with a systolic dropping from 125-65 from laying to standing. She was asymptomatic and this is actually improved from home where she may not even get allaying systolic in the 100s. Told her to ease back into her routine and to get up slowly. Case was discussed with the patient's daughter who is present at bedside. chronic conditions: * Hypothyroidism-Continue levothyroxine. * Parkinson's disease-Continue home carbidopa/levodopa-Will need to follow with her neurologist on discharge * Depression-Sertraline increased to 150 mg 4 to 6 months ago, will continue- Patient reports she has not required the Ativan in a long time so do not think that this is contributing VTE prophylaxis: SCDs.
[2024-08-13 09:00] VITALS: BP 139/74; PULSE 68; RESP 18; TEMP 36.6; O2SAT 98
[2024-08-13] MEDS: Fludrocortisone Acetate 0.1 MG Tablet PO (11:21)
[2024-08-13] MEDS: Sertraline 100 MG Tablet 150 MG PO (11:22)
[2024-08-13 11:30] VITALS: BP 125/63; BP 65/36; BP 84/56; PULSE 105; PULSE 60; PULSE 79
--- NOTE | 2024-08-13 12:59 | DS.PCM_ITS ---
Providers Date of Admission: 08/12/24 Primary Care Physician: Dr. Lucía Ortiz MD Reason For Visit: SYMPTOMATIC ORTHOSTATIC HYPOTENSION Diagnosis Discharge Diagnosis (1) Pre-syncope: Status: Acute Code(s): R55 - Syncope and collapse Plan Orthostatic hypotension * already on fludrocortisone. Midodrine added. * Complicated by Parkinson's disease with known autonomic dysfunction with this disease process. * Encourage patient to drink more fluid, increased sodium intake. Patient is going to get some abdominal compression binder that is being prescribed by her neurologist to see if that would help with her orthostasis. Patient is still very orthostatic with a systolic dropping from 125-65 from laying to standing. She was asymptomatic and this is actually improved from home where she may not even get allaying systolic in the 100s. Told her to ease back into her routine and to get up slowly. Case was discussed with the patient's daughter who is present at bedside. chronic conditions: * Hypothyroidism-Continue levothyroxine. * Parkinson's disease-Continue home carbidopa/levodopa-Will need to follow with her neurologist on discharge * Depression-Sertraline increased to 150 mg 4 to 6 months ago, will continue- Patient reports she has not required the Ativan in a long time so do not think that this is contributing VTE prophylaxis: SCDs. Medications at Discharge Home Medications pravastatin 20 mg tablet 20 mg PO QHS 05/13/19 carbidopa 25 mg-levodopa 100 mg tablet 1 ea PO .5x\day 10/04/20 carbidopa ER 50 mg-levodopa 200 mg tablet,extended release 1 tab PO BID 10/04/20 gabapentin 100 mg capsule 100 mg PO BID 05/31/23 levothyroxine 75 mcg tablet 75 mcg PO DAILY 05/31/23 lorazepam 0.5 mg tablet 0.5 mg PO DAILY PRN PRN anxiety 05/31/23 sertraline 100 mg tablet 100 mg PO DAILY 05/31/23 fludrocortisone 0.1 mg tablet 0.1 mg PO DAILY 09/20/23 midodrine 5 mg tablet 10 mg (2 x 5 mg) PO TIDCM #90 tabs 08/13/24 Hospital Course Operations None Procedures None Summary of Care Provided Minutes Spent on Discharge: 40 Hospital Course: Patient with near syncope secondary to orthostatic hypotension. Patient has Parkinson disease and has autonomic insufficiency associated with the Parkinson's. Patient was already on Florinef for the orthostasis but was still profoundly orthostatic. Patient has been since started on midodrine. We checked orthostatics while she was here today and her systolic dropped from 1 25-65, from laying to standing. Patient was asymptomatic, however. Patient likely has able to tolerate to this autonomic insufficiency but there likely at times that she is can be very susceptible to that drop. But hopefully with the medications, diet modifications including increasing her fluid and sodium intake and getting up slowly will hopefully help. Weight / BMI Weight Weight: 63.8 kg Body Mass Index (BMI) 24.1 ABG / Lab / Microbiology Data 08/13/24 03:29 08/13/24 03:29 Laboratory: Laboratory Results - last 24 hr 08/12/24 14:48: WBC 5.8, RBC 3.41 L, Hgb 10.3 L, Hct 32.3 L, MCV 94.7, MCH 30.2, MCHC 31.9 L, RDW Std Deviation 43.5, RDW Coeff of Kris 12.5, Plt Count 217, MPV 9.6, Immature Gran % (Auto) 0.300, Neut % (Auto) 66.1, Lymph % (Auto) 24.4, [place] % (Auto) 7.8, Eos % (Auto) 0.9, Baso % (Auto) 0.5, Absolute Neuts (auto) 3.8, Absolute Lymphs (auto) 1.41, Nucleated RBC % 0, Sodium 142, Potassium 4.0, C hloride 110 H, Carbon Dioxide 27.0, Anion Gap 6, BUN 23 H, Creatinine 1.06 H, Estim Creat Clear Calc 37.77, Est GFR (MDRD) Af Amer 64, Est GFR (MDRD) Non-Af 53 L, BUN/Creatinine Ratio 21.7 H, Glucose 98, Calcium 8.9, Troponin I High Sens 5, Urine Color Yellow, Urine Clarity Clear, Urine pH 7.0, Ur Specific [place] 1.005, Urine Protein Negative, Urine Glucose (UA) Normal, Urine Ketones Negative, Urine Occult Blood 10 H, Urine Nitrite Negative, Urine Bilirubin Negative, Urine Urobilinogen Normal, Ur Leukocyte Esterase 500 H, Urine RBC 0 SEEN, Urine WBC 5-10 SEEN, Ur Squamous Epith Cells 0 SEEN, Urine Bacteria 1+, Urine Mucus 0 SEEN 10/24/24 03:29: WBC 5.3, RBC 3.30 L, Hgb 10.2 L, Hct 31.1 L, MCV 94.2, MCH 30.9, MCHC 32.8, RDW Std Deviation 43.1, RDW Coeff of Kris 12.6, Plt Count 224, MPV 9.8, Immature Gran % (Auto) 0.400, Neut % (Auto) 63.0, Lymph % (Auto) 27.7, [place] % (Auto) 7.0, Eos % (Auto) 1.5, Baso % (Auto) 0.4, Absolute Neuts (auto) 3.3, Absolute Lymphs (auto) 1.47, Nucleated RBC % 0, Sodium 142, Potassium 3.7, C hloride 111 H, Carbon Dioxide 27.0, Anion Gap 4 L, BUN 24 H, Creatinine 0.88, Estim Creat Clear Calc 45.50, Est GFR (MDRD) Af Amer 80, Est GFR (MDRD) Non-Af 67, BUN/Creatinine Ratio 27.4 H, Glucose 119 H, Calcium 8.8, Magnesium 1.9 Microbiology: Microbiology 08/12/24 14:48 Urine, Clean Catch Urine Culture - Preliminary Culture exhibits no growth. Radiography Diagnostic Testing: Radiology Impression Chest X-Ray 08/12/24 14:50 IMPRESSION: No acute abnormality is seen. Electronically Signed: Helder Napoles MD at 15:12 EDT Reading Location ID and State: [address] [place] [address] , Service support , D/C Instructions Discharge Diet: No restrictions (More fluids and liberal salt intake.) Meaningful Use Info Meaningful Use Meaningful Use Diagnoses (Choose all that apply): None applicable Ischemic Stroke Statin Dosing Therapy Reference: STATIN DOSE THERAPY REFERENCE: * Patients > 75 years receive moderate or high dose statin therapy. * Patients 75 years or YOUNGER should receive HIGH intensity statin dose unless contraindicated. You will be required to document reason for non-treatment if statin daily dose does not meet guidelines. HIGH DOSE STATIN THERAPY DAILY Atorvastatin > than or = to 40 mg Rosuvastatin > than or = to 20 mg Amlodipine + Atorvastatin > than or = to 2.5/40 mg Ezetimibe + Simvastatin 10/80 mg Simvastatin 80mg Discharge Plan Admission Admit Date/Time: 08/12/24 16:44 Primary Reason for Your Visit: Orthostatic hypotension Attending Provider: Gerhard Pires Primary Care Provider: Lucía Ortiz Consulting Providers: Rika Pringle Instructions Additional Instructions / Restrictions: Drink more fluids, any fluids. More salt. So feel free to add salt to food. Get up slowly from laying to seating, from sitting to standing. Discharge Orders/Prescriptions Prescriptions: New midodrine 5 mg Tablet 10 mg PO TIDCM Qty: 90 0RF Continued pravastatin 20 MG tablet 20 mg PO QHS Patient Comments: TAKE 1 TABLET BY MOUTH EVERYDAY AT BEDTIME carbidopa-levodopa 1 TABLET tablet extended release 1 tab PO BID Rx Instructions: AM AND HS carbidopa-levodopa 1 EACH tablet 1 ea PO .5x\day fludrocortisone 0.1 mg tablet 0.1 mg PO DAILY gabapentin 100 mg capsule 100 mg PO BID Patient Comments: TAKE 1 CAPSULE BY MOUTH THREE TIMES DAILY FOR 180 DAYS. lorazepam 0.5 mg tablet 0.5 mg PO DAILY PRN PRN (Reason: anxiety) Patient Comments: TAKE 1 TABLET BY MOUTH ONCE DAILY NEEDED (ANXIETY, PANIC) FOR UP TO 30 DAYS. levothyroxine 75 mcg tablet 75 mcg PO DAILY Patient Comments: TAKE 1 TABLET BY MOUTH ONCE DAILY. TAKE ON EMPTY STOMACH. FOR THYROID. sertraline 100 mg tablet 100 mg PO DAILY Patient Comments: TAKE 1 TABLET BY MOUTH EVERY DAY Referrals / Follow Up: Lucía Ortiz MD [Primary Care Provider] - Disposition Disposition (needs filled in before D/C Order can be placed): Home, Self Care Charges/Coding Visit Charges Inpatient E&M: 45185 Disch Hosp >30min
--- NOTE | 2024-08-13 14:15 | CASEMGMT ---
Patient has order for discharge. RN CM in to discuss needs at discharge, daughter at bedside. Patient denies needs or help at discharge. Patient and daughter had no further questions or concerns.
--- NOTE | 2024-08-13 15:48 | CHAPLAIN ---
Type of Pastoral Visit _x__ Initial Visit ___ Follow-up Visit ___ On-call Visit ___ General Patient Visit ___ Spiritual Assessment ___ Family Conference ___ Bereavement ___ Rapid Response ___ Code Blue ___ Other (describe below) Pastoral Care Referral From _x__ Patient ___ Family ___ Nurse ___ Physician ___ Distribution District Supervisor ___ Superintendent Of Schools ___ Other (describe below) Sacrament/Intervention _x__ Active listening ___ Anointing ___ Caodaism ___ Bereavement ___ Communion ___ Mavis exploration ___ ___ Life review ___ Prayer ___ Reconciliation ___ Sacrament of Sick _x__ Supportive presence ___ Wedding ___ Other (describe below) Pastoral Comments patient is ready to be discharged; pt states that the deacon was here already, said a prayer, and I'm all good to go ; pt admits being anxious to leave the hospital; pt acknowledges that she has Parkinson's and is offered support and understanding about how she is coping with that disease; pt speaks of it being difficult but her family members in the room state that she is a strong woman and can face the challenges; pt is reluctant to fully agree; pt denies any further needs; casual conversation
== END 2024-08-13 13:03 | disposition home or self-care (01) ==
LOC: ED 16:29 → PCU 16:47
PROVIDERS: Admitting Provider Internal Medicine; Emergency Provider Surgery; PCP Internal Medicine
DX: I95.1 Orthostatic hypotension (principal); G20.A1 Parkinson's disease without dyskinesia, without mention of fluctuations; Z86.16 Personal history of COVID-19; E78.00 Pure hypercholesterolemia, unspecified; Z79.899 Other long term (current) drug therapy; E03.9 Hypothyroidism, unspecified; Z79.890 Hormone replacement therapy; F32.A Depression, unspecified
CPT/HCPCS: 36415; 71045; 80048; 81001; 83735; 84484; 85025; 87086; 87088; 93005; 96365; 97162; 97166; 99221; 99285; J7030; A4216; G0378

== ENCOUNTER 2025-09-08 14:11 | Emergency (ER) | payer MEDICARE, OTHER, SELFPAY ==
[2025-09-08] VITALS (16 sets, daily range): BP systolic 94–120; BP diastolic 51–93; PULSE 68–88; RESP 15–25; TEMP 36.6–36.8; O2SAT 91–100; BMI 21.4
--- NOTE | 2025-09-08 14:25 | EX.ED.DYSGE1 ---
HPI History of Present Illness Chief Complaint: Syncope Informant: patient and EMS Narrative Narrative: 80-year-old female presenting to the emergency room with a chief complaint of syncope. Patient states she has had a little bit of Jell-O today but otherwise not anything else to eat or drink. She went to [facility] for physical therapy and began to walk when she suddenly began to feel lightheaded and reportedly had a syncopal episode. She states that she did not experience any chest pain palpitations shortness of breath sweating. She states that she feels good right now. She has chronic neck pain and was noticing pain in her neck when she started walking. She denies any diarrhea vomiting urinary symptoms. She states that the individual she was walking with caught her and she did not fall to the ground. Prehospital EKG was reviewed which shows a sinus rhythm with no concerning ST segments. Nursing reports a blood sugar of 95. Patient does have a history of syncope. It was felt that this was related to blood pressure being lower due to her Parkinson's meds. [facility] Medical History Depression Hypothyroidism Parkinson's disease High cholesterol Hyperthyroidism Parkinson disease Home Medications ?Medication ?Instructions ?Recorded ?Last Taken ?Type pravastatin 20 mg tablet 20 mg PO QHS 05/13/19 08/11/24 History carbidopa 25 mg-levodopa 100 mg 1 ea PO .5x\day 10/04/20 08/12/24 History tablet carbidopa ER 50 mg-levodopa 200 mg 1 tab PO BID 10/04/20 08/12/24 History tablet,extended release gabapentin 100 mg capsule 100 mg PO BID 05/31/23 08/12/24 History levothyroxine 75 mcg tablet 75 mcg PO DAILY 05/31/23 08/12/24 History lorazepam 0.5 mg tablet 0.5 mg PO DAILY PRN PRN anxiety 05/31/23 08/11/24 History sertraline 100 mg tablet 100 mg PO DAILY 05/31/23 08/12/24 History fludrocortisone 0.1 mg tablet 0.1 mg PO DAILY 09/20/23 08/12/24 History midodrine 5 mg tablet 10 mg (2 x 5 mg) PO TIDCM #90 tabs 08/13/24 Unknown Rx Allergy/AdvReac Type Severity Reaction Status Date / Time Sulfa (Sulfonamide Allergy Hives Verified 09/20/23 20:05 Antibiotics) Social History household members: none Smoking Status: Never smoker ROS ROS ED Constitutional Constitutional ED: Denies chills, fever(s) or weight loss Eyes Eyes: Denies change in vision or diplopia ENT ENT ED: Denies ear pain, rhinorrhea or sore throat Cardiovascular Cardiovascular: Denies chest pain, orthopnea, palpitations or racing heartbeat Respiratory/Chest Respiratory/Chest: Denies cough, dyspnea or orthopnea Gastrointestinal Gastrointestinal: Denies abdominal pain, diarrhea, nausea or vomiting Genitourinary Genitourinary ED: Denies dysuria, hematuria or urinary frequency Musculoskeletal Musculoskeletal: Reports neck pain; Denies arthralgias, back pain or myalgias Integumentary Denies abscess or rash Neurologic Neurologic: Denies headache(s) or weakness Psychiatric Psychiatric: Denies anxiety, depression, suicidal ideation or suicidal thoughts Endocrine Endocrinology: Denies polydipsia, polyphagia or polyuria Allergic/Immunologic Allergic/Immunologic ED: Denies mouth swelling, tongue swelling or urticaria EXAM Physical Exam Const Vital Signs: 09/08/25 14:11 09/08/25 14:16 09/08/25 14:19 Temperature 97.9 F Temperature Source Oral Pulse Rate 68 69 Respiratory Rate 15 16 Respiratory Effort Normal Respiratory Pattern Normal Blood Pressure 94/51 L Blood Pressure Mean 65 Pulse Ox 99 96 Oxygen Delivery Method Room Air 09/08/25 14:30 09/08/25 14:45 09/08/25 15:00 Temperature Temperature Source Pulse Rate 68 Respiratory Rate 18 Respiratory Effort Respiratory Pattern Blood Pressure 116/67 95/69 106/63 Blood Pressure Mean 83 79 76 Pulse Ox 97 98 100 Oxygen Delivery Method 09/08/25 15:15 09/08/25 15:27 09/08/25 15:30 Temperature Temperature Source Pulse Rate 88 70 Respiratory Rate 25 H 15 Respiratory Effort Respiratory Pattern Blood Pressure 106/52 L 113/56 L Blood Pressure Mean 69 71 Pulse Ox 98 91 97 Oxygen Delivery Method 09/08/25 15:45 09/08/25 16:00 Temperature Temperature Source Pulse Rate 71 74 Respiratory Rate 17 22 H Respiratory Effort Respiratory Pattern Blood Pressure 96/59 L Blood Pressure Mean 70 Pulse Ox 95 97 Oxygen Delivery Method Positive well nourished and well developed General Appearance ED: well developed and NAD HEENT Reports normocephalic, head/scalp atraumatic and moist mucous membranes Eyes PERRL and EOMs intact bilaterally Neck no lymphadenopathy, supple and no JVD Resp normal respiratory effort and clear to auscultation bilaterally Cardio regular rate, regular rhythm and no murmurs GI normal to inspection, nondistended, normoactive bowel sounds and non-tender Palpation: soft Back/Spine no CVA tenderness and normal ROM Back/Spine Narrative: Kyphotic upper back Extremity normal to inspection General Extremety ED: Negative for edema General Extremity: Negative for edema Neuro oriented x3, CN's II-XII intact bilaterally and no sensory deficits noted Neuro Narrative: Patient has movement disorder consistent with Parkinson's Sensorium / Orientation: alert Motor Exam: strength 5/5 throughout Psych mental status grossly normal Mood & Affect: Negative for depressed or tearful Skin no rashes or lesions noted and no wounds MDM MDM MDM Narrative Medical decision making narrative: Differential diagnosis includes syncope cardiogenic syncope vasovagal syncope dehydration electrolyte abnormalities cardiac dysrhythmia acute coronary syndrome EKG shows a sinus rhythm at a rate of 67. Basic blood work was obtained. Creatinine 1.59 with a BUN of 33. This is elevated roughly where it was but do not have any from this year. Hemoglobin is 11 white count 5.4. Initial troponin is 25. My independent interpretation of the chest x-ray is no acute process. A delta troponin will be obtained. Patient received a dose of IV fluids as well as given food and drink. I have not seen any cardiac dysrhythmias. History & Record Review Discussion w/independent historian: Patient Additional record(s) reviewed:: Prior ED visit and Prior labs Lab Data Attestation: I reviewed the patient's lab results. Labs: Laboratory Results - last 24 hr 09/08/25 09/08/25 09/08/25 14:00 14:14 15:30 WBC 5.4 RBC 3.61 L Hgb 11.0 L Hct 32.9 L MCV 91.1 MCH 30.5 MCHC 33.4 RDW Std Deviation 44.9 H RDW Coeff of Kris 13.3 Plt Count 204 MPV 10.4 Immature Gran % (Auto) 0.400 Neut % (Auto) 70.4 H Lymph % (Auto) 21.6 [place] % (Auto) 6.1 Eos % (Auto) 0.9 Baso % (Auto) 0.6 Absolute Neuts (auto) 3.8 Absolute Lymphs (auto) 1.16 Nucleated RBC % 0 Sodium 138 Potassium 4.1 Chloride 103 Carbon Dioxide 23.1 Anion Gap 12 BUN 33 H Creatinine 1.59 H Estim Creat Clear Calc 24.77 L Est GFR (MDRD) Non-Af 33 L BUN/Creatinine Ratio 20.5 H Glucose 105 H Calcium 9.3 Troponin T High Sens 25 H Urine Color Yellow Urine Clarity Cloudy Urine pH 6.0 Ur Specific [place] 1.020 Urine Protein 100 H Urine Glucose (UA) Normal Urine Ketones 15 H Urine Occult Blood 25 H Urine Nitrite Negative Urine Bilirubin 1 H Urine Urobilinogen 1 H Ur Leukocyte Esterase 500 H POC Glucose 95 Radiography Diagnostic Testing: Clinical Impression(s) from Imaging Studies Chest X-Ray 09/08/25 15:00 IMPRESSION: Stable examination. No acute abnormality is seen. Reading Location: [facility] EKG Initial EKG: Attestation: I personally reviewed and interpreted this EKG as follows: Comments: Normal sinus rhythm ventricular rate of 67 bpm Discharge Plan Triage Chief Complaint: Syncope ED Provider: Anthony Nguyễn Dx/Rx/DC Orders Clinical Impression: Syncope, Parkinson's disease Instructions: ED Fainting, Uncertain Cause Prescriptions: No Action pravastatin 20 MG tablet 20 mg PO QHS Patient Comments: TAKE 1 TABLET BY MOUTH EVERYDAY AT BEDTIME carbidopa-levodopa 1 TABLET tablet extended release 1 tab PO BID Rx Instructions: AM AND HS carbidopa-levodopa 1 EACH tablet 1 ea PO .5x\day fludrocortisone 0.1 mg tablet 0.1 mg PO DAILY gabapentin 100 mg capsule 100 mg PO BID Patient Comments: TAKE 1 CAPSULE BY MOUTH THREE TIMES DAILY FOR 180 DAYS. lorazepam 0.5 mg tablet 0.5 mg PO DAILY PRN PRN (Reason: anxiety) Patient Comments: TAKE 1 TABLET BY MOUTH ONCE DAILY NEEDED (ANXIETY, PANIC) FOR UP TO 30 DAYS. levothyroxine 75 mcg tablet 75 mcg PO DAILY Patient Comments: TAKE 1 TABLET BY MOUTH ONCE DAILY. TAKE ON EMPTY STOMACH. FOR THYROID. sertraline 100 mg tablet 100 mg PO DAILY Patient Comments: TAKE 1 TABLET BY MOUTH EVERY DAY midodrine 5 mg Tablet 10 mg PO TIDCM Qty: 90 0RF Primary Care Provider: Lucía Ortiz Referrals: Lucía Ortiz MD [Primary Care Provider, Internal Medicine] - As Needed Print Language: Malay
[2025-09-08 14:34] LABS: Hematocrit 32.9 % (37-47); Hemoglobin 11.0 g/dL (12.0-15.0); Immature Granulocytes Count 0.020 X10^3/uL (0.0-0.0); Mean Corp Hgb Conc 33.4 g/dL (32-36); Mean Corpuscular Volume 91.1 fL (81-99); Mean Platelet Vol. 10.4 fl (6.2-12.0); NRBC Flagged by Analyzer 0 % (0-5); Platelet Count 204 K/mm3 (150-450); RBC Distribution Width CV 13.3 % (11.6-14.6); RBC Distribution Width SD 44.9 fl (35.1-43.9); Red Blood Count 3.61 M/mm3 (4.2-5.4); White Blood Count 5.4 K/mm3 (4.4-11.0)
[2025-09-08 14:58] LABS: Anion Gap 12 (5-15); BUN 33 mg/dL (4-19); BUN/Creat Ratio 20.5 RATIO (10-20); Calcium,Total 9.3 mg/dL (7.6-11.0); Carbon Dioxide 23.1 mmol/L (21.0-32.0); Chloride 103 mmol/L (98-108); Estimated Creatinine Clearance 24.77 ml/min (50-250); Glucose 105 mg/dL (70-99); Potassium 4.1 mmol/L (3.3-5.1); Troponin T High Sensitivity 25 ng/L (<=14)
--- NOTE | 2025-09-08 15:00 | RAD_ITS ---
PROCEDURE: CHEST 1 VIEW (PORTABLE) 09/08/2025 REASON FOR EXAM: SYNCOPE TECHNIQUE: Frontal view of the chest. COMPARISON: August 12, 2024. FINDINGS: Hardware: EKG electrodes are seen. Heart: The heart is nonenlarged. Lungs: Scattered calcified granulomas. No acute abnormality is seen. Bones: Degenerative changes are identified within the thoracic spine. RAD/Chest 1 View (Portable) IMPRESSION: Stable examination. No acute abnormality is seen. Reading Location: [id number]
[2025-09-08] MEDS: 0.9% Normal Saline (500mL Bag) 500 ML 999 ML IV (15:33)
[2025-09-08 15:37] LABS: Mucous, Urine 0 SEEN /hpf (<or=2+); Squamous Epithelial Cells - UA 0 SEEN /hpf (5-10)
[2025-09-08 15:46] LABS: Color, Urine Yellow (Yellow); Glucose, Dipstick Normal (Normal); Ketone-Dipstick 15 mg/dl (Negative); Leukocyte Esterase-Dipstick 500 /ul (Negative); Nitrite-Dipstick Negative (Negative); Occult Blood-Urine 25 /ul (Negative); Protein-Dipstick 100 mg/dl (Negative); Specific Gravity, Urine 1.020 (1.002-1.030)
[2025-09-08 15:49] LABS: Urine Bilirubin Dipstick 1 mg/dL (Negative)
[2025-09-08 16:32] LABS: Troponin T High Sens 2 HR 20 ng/L (<=14)
[2025-09-08 17:22] LABS: Calcium Oxalate Crystals Ur RARE /hpf (<or=2+)
[2025-09-08 17:23] LABS: Red Blood Cells-Urine 5-10 SEEN /hpf (0-5)
== END 2025-09-08 17:29 | disposition home or self-care (01) ==
LOC: ED 15:37
PROVIDERS: Emergency Provider Emergency Medicine; PCP Internal Medicine; Visit Provider Emergency Medicine
DX: R55 Syncope and collapse (principal); G20.A1 Parkinson's disease without dyskinesia, without mention of fluctuations; E78.00 Pure hypercholesterolemia, unspecified; G89.29 Other chronic pain; Z79.899 Other long term (current) drug therapy
CPT/HCPCS: 71045; 80048; 81001; 82962; 84484; 85025; 93005; 96360; 99285; A4216

== ENCOUNTER 2025-09-20 11:09 | Inpatient (IN) | payer MEDICARE, OTHER, SELFPAY ==
[2025-09-20] VITALS (9 sets, daily range): BP systolic 135–159; BP diastolic 68–82; PULSE 69–87; RESP 14–19; TEMP 36.4–37.2; O2SAT 96–100; BMI 20.3; BMI 20.5
--- NOTE | 2025-09-20 11:21 | EKG12_ITS ---
Test Reason : FALL Blood Pressure : */* mmHG Vent. Rate : 72 BPM Atrial Rate : 72 BPM P-R Int : 158 ms QRS Dur : 86 ms QT Int : 430 ms P-R-T Axes : 58 -52 37 degrees QTcB Int : 470 ms Normal sinus rhythm Left anterior fascicular block Abnormal ECG Confirmed by Jorge Alberto Mann ([id number]), business editor ELIZABETH RODRIGUEZ ([id number]) on 09/22/2025 8:39:23 AM Referred By: Confirmed By: Jorge Alberto Mann
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
[2025-09-20 11:38] LABS: Hematocrit 35.8 % (37-47); Hemoglobin 11.9 g/dL (12.0-15.0); Immature Granulocytes Count 0.030 X10^3/uL (0.0-0.0); Mean Corp Hgb Conc 33.2 g/dL (32-36); Mean Corpuscular Volume 90.4 fL (81-99); Mean Platelet Vol. 10.0 fl (6.2-12.0); NRBC Flagged by Analyzer 0 % (0-5); Platelet Count 210 K/mm3 (150-450); RBC Distribution Width CV 13.6 % (11.6-14.6); RBC Distribution Width SD 45.3 fl (35.1-43.9); Red Blood Count 3.96 M/mm3 (4.2-5.4); White Blood Count 8.5 K/mm3 (4.4-11.0)
[2025-09-20] MEDS: 0.9% Normal Saline (1000mL) 1,000 ML 1000 ML IV (11:41)
[2025-09-20 11:47] LABS: Prothrombin Time (Protime)PT. 14.3 SECONDS (11.7-14.9)
[2025-09-20 11:48] LABS: Partial Thromboplast Time 28.0 Seconds (24.1-36.2)
[2025-09-20 11:51] LABS: Squamous Epithelial Cells - UA 0 SEEN /hpf (5-10)
--- NOTE | 2025-09-20 12:00 | RAD_ITS ---
PROCEDURE: PELVIS 1 OR 2 VIEWS 09/20/2025 REASON FOR EXAM: TRAUMA TECHNIQUE: Procedure Code: RADPEL Modality: DX Procedure: PELVIS 1 OR 2 VIEWS COMPARISON: None. FINDINGS: Hardware: None. Bones: No acute bony abnormalities. Joints: The hip joints are well aligned. soft tissues: No soft tissue abnormalities. RAD/Pelvis 1 or 2 Views IMPRESSION: No acute osseous abnormalities. Reading Location: [id number]
--- NOTE | 2025-09-20 12:00 | RAD_ITS ---
PROCEDURE: CHEST 1 VIEW (PORTABLE) 09/20/2025 REASON FOR EXAM: TRAUMA TECHNIQUE: Frontal view of the chest. COMPARISON: Chest x-ray 09/08/2025. FINDINGS: Hardware: Monitor electrodes overlie the chest. Heart: No cardiomegaly. Tortuosity of the aorta. Lungs: Clear. No pleural effusion or pneumothorax. Bones: No acute bony abnormalities. RAD/Chest 1 View (Portable) IMPRESSION: No acute cardiopulmonary abnormalities. Reading Location: [id number]
--- NOTE | 2025-09-20 12:00 | CT_ITS ---
PROCEDURE: BRAIN/HEAD WITHOUT CONTRAST; SPINE CERVICAL WITHOUT CONTRAS 09/20/2025 REASON FOR EXAM: INJURY; TRAUMA TECHNIQUE: Procedure Code: CTBR; CTSPC Modality: CT Procedure: BRAIN/HEAD WITHOUT CONTRAST; SPINE CERVICAL WITHOUT CONTRAS Coronal and Sagittal reconstruction series were provided. One or more dose reduction techniques were used (e.g., Automated exposure control, adjustment of the mA and/or kV according to patient size, use of iterative reconstruction technique. RADIATION DOSE SUMMARY: CTDlvol: 13.37 mGy DLP: 1082.65 mGycm COMPARISON: None. FINDINGS: CT head: Brain: No acute territorial infarction. No acute intracranial hemorrhage. No mass-effect or midline shift. Diffuse white matter hypodensities which are nonspecific but likely due to chronic small-vessel ischemia. Parenchymal volume loss consistent with brain atrophy. No ventriculomegaly. The orbits are unremarkable. The craniocervical junction is unremarkable. CSF Spaces: Moderate generalized cerebral atrophy Sinuses/Mastoids: Clear at visualized levels Bones: No acute bony abnormalities. CT cervical spine: Vertebral: No acute bony changes. Disc levels: Multilevel degenerate changes predominantly at C5-C6 where there is disc space narrowing, uncovertebral hypertrophy, facet joint arthropathy with moderate bilateral foramina stenosis and mild canal stenosis. Alignment: Anterolisthesis C4 on C5 by 2 mm. Soft tissues: No soft tissue abnormalities. The lungs are clear. CT/Brain/Head without Contrast IMPRESSION: No acute intracranial abnormalities. No acute injury to the cervical spine. Reading Location: [facility]
--- NOTE | 2025-09-20 12:00 | CT_ITS ---
PROCEDURE: BRAIN/HEAD WITHOUT CONTRAST; SPINE CERVICAL WITHOUT CONTRAS 09/20/2025 REASON FOR EXAM: INJURY; TRAUMA TECHNIQUE: Procedure Code: CTBR; CTSPC Modality: CT Procedure: BRAIN/HEAD WITHOUT CONTRAST; SPINE CERVICAL WITHOUT CONTRAS Coronal and Sagittal reconstruction series were provided. One or more dose reduction techniques were used (e.g., Automated exposure control, adjustment of the mA and/or kV according to patient size, use of iterative reconstruction technique. RADIATION DOSE SUMMARY: CTDlvol: 13.37 mGy DLP: 1082.65 mGycm COMPARISON: None. FINDINGS: CT head: Brain: No acute territorial infarction. No acute intracranial hemorrhage. No mass-effect or midline shift. Diffuse white matter hypodensities which are nonspecific but likely due to chronic small-vessel ischemia. Parenchymal volume loss consistent with brain atrophy. No ventriculomegaly. The orbits are unremarkable. The craniocervical junction is unremarkable. CSF Spaces: Moderate generalized cerebral atrophy Sinuses/Mastoids: Clear at visualized levels Bones: No acute bony abnormalities. CT cervical spine: Vertebral: No acute bony changes. Disc levels: Multilevel degenerate changes predominantly at C5-C6 where there is disc space narrowing, uncovertebral hypertrophy, facet joint arthropathy with moderate bilateral foramina stenosis and mild canal stenosis. Alignment: Anterolisthesis C4 on C5 by 2 mm. Soft tissues: No soft tissue abnormalities. The lungs are clear. CT/Spine Cervical without Contras IMPRESSION: No acute intracranial abnormalities. No acute injury to the cervical spine. Reading Location: [facility]
--- NOTE | 2025-09-20 12:00 | RAD_ITS ---
PROCEDURE: FEMUR MIN 2 VIEWS 09/20/2025 REASON FOR EXAM: TRAUMA TECHNIQUE: Procedure Code: RADFEM Modality: DX Procedure: FEMUR MIN 2 VIEWS Laterality: COMPARISON: None. FINDINGS: Bones: No acute bony abnormalities. Joints: Well aligned. Soft tissues: No soft tissue abnormalities. RAD/Femur Min 2 Views IMPRESSION: No acute osseous abnormalities. Reading Location: [id number]
[2025-09-20 12:05] LABS: Color, Urine Yellow (Yellow); Glucose, Dipstick Normal (Normal); Leukocyte Esterase-Dipstick 500 /ul (Negative); Nitrite-Dipstick Negative (Negative); Occult Blood-Urine 150 /ul (Negative); Protein-Dipstick 100 mg/dl (Negative); Specific Gravity, Urine 1.025 (1.002-1.030); Urine Bilirubin Dipstick Negative (Negative)
[2025-09-20 12:09] LABS: Ketone-Dipstick 150 mg/dl (Negative)
[2025-09-20 12:12] LABS: Calcium Oxalate Crystals Ur 1+ /hpf (<or=2+); Mucous, Urine 1+ /hpf (<or=2+); Red Blood Cells-Urine 0-5 SEEN /hpf (0-5)
[2025-09-20 12:13] LABS: Transitional Epithelial - Ur 0-5 SEEN /hpf (0-5)
[2025-09-20 12:19] LABS: Troponin T High Sensitivity 44 ng/L (<=14)
[2025-09-20 12:25] LABS: AST(SGOT) 48 U/L (<=31); Alanine Aminotransfer ALT/SGPT 11 U/L (<=34); Albumin, Serum 4.5 g/dL (3.4-4.8); Alkaline Phosphatase 100 U/L (35-104); Anion Gap 21 (5-15); BUN 34 mg/dL (4-19); BUN/Creat Ratio 33.0 RATIO (10-20); Bilirubin, Direct 0.54 mg/dL (0.00-0.30); CPK Total, Creatine Kinase 1935 U/L (24-195); Calcium,Total 9.5 mg/dL (7.6-11.0); Carbon Dioxide 18.4 mmol/L (21.0-32.0); Chloride 104 mmol/L (98-108); Estimated Creatinine Clearance 37.62 ml/min (50-250); Globulin 2.8 g/dL (2.2-4.2); Glucose 88 mg/dL (70-99); Lipase 34 U/L (13-75); Magnesium 2.3 mg/dL (1.5-2.2); Potassium 4.1 mmol/L (3.3-5.1)
[2025-09-20] MEDS: 0.9% Normal Saline (1000mL) 1,000 ML 150 ML IV (13:20)
[2025-09-20 14:05] LABS: Troponin T High Sens 2 HR 45 ng/L (<=14)
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
--- OUTSIDE RECORDS SUMMARY | 2025-09-20 19:52 | XMS RPT_ITS | CCD ---
Author Organization [facility] Care Team Providers Care Practice Support Specialist Name Role Phone Angel WYMAN, Lucía Primary Care Provider Lucía Rizzo MD Primary Care Provider Robert BENZ, Kim Unavailable ZHANE SYLVESTER Referring Unavailable GANTA, LUCÍA Primary Care Unavailable ZHANE SYLVESTER Referring Unavailable GANTA, LUCÍA Primary Care Unavailable ZHANE SYLVESTER Referring Unavailable GANTA, LUCÍA Primary Care Unavailable SHOLA MAYORGA Attending Unavailable ALEXA WATERS Admitting Unavailable GANTA, LUCÍA Primary Care Unavailable Sandra Centeno PA-C Unavailable Older TILE SETTER SUPERVISOR.DEALMAKER, Aminata Unavailable Jean Carlos Resendiz PA-C Unavailable GANTA, LUCÍA Primary Care Unavailable ROSCOE, SAYRA Referring Unavailable GANTA, LUCÍA Primary Care Unavailable ROSCOE, SAYRA Referring Unavailable GANTA, LUCÍA Primary Care Unavailable ROSCOE, SAYRA Referring Unavailable GANTA, LUCÍA Primary Care Unavailable ROSCOE, SAYRA Referring Unavailable GANTA, LUCÍA Primary Care Unavailable BOGNER, JEAN CARLOS Referring Unavailable GANTA, LUCÍA Primary Care Unavailable BOGNER, JEAN CARLOS Referring Unavailable GANTA, LUCÍA Primary Care Unavailable ROSCOE, SAYRA Referring Unavailable GANTA, LUCÍA Primary Care Unavailable ROSCOE, SAYRA Referring Unavailable GANTA, LUCÍA Primary Care Unavailable ROSCOE, SAYRA Referring Unavailable GANTA, LUCÍA Primary Care Unavailable ROSCOE, SAYRA Referring Unavailable GANTA, LUCÍA Primary Care Unavailable JULIANA THERESA Referring Unavailable JAK DIAZ Attending Unavailable GANTA, LUCÍA Primary Care Unavailable ROSCOE, SAYRA Referring Unavailable GANTA, LUCÍA Primary Care Unavailable ERA GAGNON Referring Unavailable CLAUDIO ALLEN Attending Unavailable GANTA, LUCÍA Primary Care Unavailable DIAZ, JAK Attending Unavailable GANTA, LUCÍA Primary Care Unavailable DIAZ, JAK Referring Unavailable PREBISH, THERESA Attending Unavailable GANTA, LUCÍA Primary Care Unavailable PREBISH, THERESA Attending Unavailable GANTA, LUCÍA Primary Care Unavailable DIAZ, JAK Attending Unavailable GANTA, LUCÍA Primary Care Unavailable DIAZ, JAK Attending Unavailable GANTA, LUCÍA Primary Care Unavailable SELF Referring Unavailable PREBISH, THERESA Attending Unavailable GANTA, LUCÍA Primary Care Unavailable ROSCOE, SAYRA Referring Unavailable Smita WYMAN, Juan Carlos Unavailable Juan Carlos Ordoñez MD Unavailable Taryn ISSA, Sandra Daniel Unavailable Astrid ISSA, Jean Carlos Unavailable [phone] Roscoe, Sayra Referring Unavailable Oglala, Sayra Attending Unavailable Ganta, Lucía Primary Care Unavailable GANTA, LUCÍA Primary Care Unavailable GANTA, LUCÍA Attending Unavailable GANTA, LUCÍA Primary Care Unavailable DEANDRA ELY Attending Unavailable GANTA, LUCÍA Primary Care Unavailable GANTA, LUCÍA Referring Unavailable GANTA, LUCÍA Primary Care Unavailable JUAN CARLOS ORDOÑEZ Referring Unavailable JUAN CARLOS ORDOÑEZ Attending Unavailable GANTA, LUCÍA Primary Care Unavailable ROSCOE, SAYRA Referring Unavailable AGUSTO BOWMANH Attending Unavailable GANTA, LUCÍA Primary Care Unavailable GANTA, LUCÍA Referring Unavailable GANTA, LUCÍA Primary Care Unavailable YOLANDA, KALLIE Attending Unavailable OC ROSE Attending Unavailable GANTA, LUCÍA Primary Care Unavailable GANTA, LUCÍA Primary Care Unavailable ROSCOE, SAYRA Referring Unavailable ROSCOE, SAYRA Attending Unavailable GANTA, LUCÍA Primary Care Unavailable YOLANDA, KALLIE Attending Unavailable GANTA, LUCÍA Primary Care Unavailable SUNDAY ALEXANDER Attending Unavailable GANTA, LUCÍA Primary Care Unavailable GANTA, LUCÍA Referring Unavailable GANTA, LUCÍA Primary Care Unavailable YOLANDA, KALLIE Attending Unavailable GANTA, LUCÍA Primary Care Unavailable GANTA, LUCÍA Attending Unavailable GANTA, LUCÍA Primary Care Unavailable GANTA, LUCÍA Attending Unavailable GANTA, LUCÍA Primary Care Unavailable ROSCOE, SAYRA Referring Unavailable ROSCOE, SAYRA Attending Unavailable GANTA, LUCÍA Primary Care Unavailable JUAN CARLOS ORDOÑEZ Referring Unavailable JUAN CARLOS ORDOÑEZ Attending Unavailable ISI HARDIN Attending Unavailable GANTA, LUCÍA Primary Care Unavailable GANTA, LUCÍA Primary Care Unavailable DEANDRA ELY Referring Unavailable GANTA, LUCÍA Primary Care Unavailable GANTA, LUCÍA Referring Unavailable GANTA, LUCÍA Primary Care Unavailable KAYLEY MABRYISTIN Referring Unavailable ROSCOE, SAYRA Attending Unavailable GANTA, LUCÍA Primary Care Unavailable ROSCOE, SAYRA Referring Unavailable JUAN CARLOS ORDOÑEZ Attending Unavailable GANTA, LUCÍA Primary Care Unavailable ROSCOE, SAYRA Referring Unavailable ROSCOE, SAYRA Attending Unavailable Unavailable Unavailable Unavailable Allergies Allergy Classification Reported Allergen(s) Allergy Type Date of Onset Reaction(s) Facility Sulfonamides (antibiotic) (3 sources) Sulfonamides (Antibiotic) Drug Allergy 10-26-2005 [facility] (20 sources) Sulfonamides (Antibiotic); Translations: [SULFA (SULFONAMIDE ANTIBIOTICS)] Allergy to substance 10-26-2005 [facility] Medications Current Medications Medication Drug Class(es) Dates Sig (Normalized) Sig (Original) carbidopa 25 mg / levodopa 100 mg oral tablet (20 sources) Aromatic Amino Acid Decarboxylation Inhibitor, Aromatic Amino Acid Start: 03-11-2025 carbidopa-levodop a (SINEMET 25-100) 25-100 mg per tablet Take 1 tab at 4AM, 1 tab at 7AM, 2 tabs at 11AM, 1/2 tab at 230pm on exercise days, 2 tabs at 3PM and 2 tabs at 7PM. 765 tablet 3 03/11/2025 Active Start: 10-25-2023 End: 10-20-2024 carbidopa-levodopa (SINEMET 25-100) 25-100 mg per tablet Take 1 tab at 4AM, 1 tab at 7AM, 2 tabs at 11AM, 2 tabs at 3PM and 1.5 tabs at 7PM. 675 tablet 3 10/20/2024 Active Start: 03-25-2023 End: 07-08-2023 carbidopa-levodopa (SINEMET) [...] 3 11/23/2022 03/25/2023 Discontinued Start: 06-30-2021 End: 10-20-2024 take 1 tablet by mouth once at bedtime carbidopa-levodopa CR (SINEMET CR) 50-200 mg per tablet TAKE 1 TABLET BY MOUTH in Morning and before bedtime as instructed. 180 tablet 3 10/20/2024 Active Start: 10-04-2020 Carbidopa/Levo dopa (Carbidopa-Levodopa 25-100 Tab) 1 EACH tablet Active 1 EA PO THREE TIMES A DAY October 04, 2020 11:35am Start: 10-04-2020 Carbidopa/Levo dopa 50/200 (Sinemet Cr 50/200) 1 TABLET tablet extended release Active 1 TAB PO AT BEDTIME October 04, 2020 11:35am Start: 10-04-2020 Carbidopa-Levo dopa Active 1 EACH PO .5x\day October 04, 2020 12:00am Start: 10-04-2020 take 1 tablet by lee th twice daily at bedtime Carbidopa-Levodopa Active 1 TABLET PO TWICE A DAY October 04, 2020 12:00am AM AND HS Start: 10-04-2020 Carbidopa-Levo dopa Active 1 EACH PO .QID October 04, 2020 1:00am Comment on above: Take 1 tablet by lee th five times daily. . TAKE 1 TABLET BY LEE TH AT 11PM AND 1 TABLET IN THE AM. TAKE 1 TABLET BY LEE TH AT BEDTIME (1130PM) Take 1.5 tabs QID as instructed. TAKE 1 TABLET BY LEE TH in Morning and before bedtime as [...] 100 mg oral capsule (20 sources) Start: 4 End: 02-28-202 5 take 1 capsule by mouth twice daily [...] 05/15/2024 Active Start: 06-05-2023 End: 07-08-2023 take 0.1 mg by mouth once daily Fludrocortisone Active 0.1 MG PO DAILY September 20, 2023 12:00am Start: 05-31-2023 End: 09-20-2023 take 0.1 mg by mouth twice daily Fludrocortisone Discontinued 0.1 MG PO TWICE A DAY 60 May 30, 2023 11:00pm September 20, 2023 8:29pm Comment on above: Take 1 tablet by lee once daily. take 1 tablet by lee th every day hydrOXYzine hydrochloride 25 mg oral tablet (20 sources) Antihistamine Start: 2024 End: 2025 take 1 tablet by mouth every eight hours as needed for anxiety and anxiety hydrOXYzine HCl (ATARAX) 25 mg tablet Indications: Anxiety Take 1 tablet by mouth three times a day as needed. 90 tablet 1 06/22/2025 03/19/2026 Active iv contrast (will be provided with radiology test) (2 sources) Start: 2024 End: 2024 inject 1 dose intravenously once iv contrast [...] the MR contrast administration guidelines link 1 each 06/23/2025 06/24/2025 Active Start: 05-06-2023 End: 05-07-2023 inject 1 dose intravenously once iv contrast [...] tablet (20 sources) l-Thyroxine Start: 2020 End: 2024 take 1 tablet by mouth once daily for thyroid dysfunction levothyroxine (SYNTHROID) 75 mcg tablet Indications: Hypothyroidism, unspecified type Take 1 tablet by mouth once daily. Take on empty stomach. For Thyroid 90 tablet 3 05/31/2025 Active Start: 05-13-2019 End: 05-31-2023 take 75 ug by mouth once daily Levothyroxine Discontin ued 75 MCG PO DAILY May 12, 2019 11:00pm May 31, 2023 3:31pm Comment on above: Take 1 tablet by lee th once daily. Take on empty stomach. For Thyroid lidocaine 0.05 mg/mg medicated patch (20 sources) Antiarrhythmic, Amide Local Anesthetic Start: 11-28-2023 End: 05-26-2024 lidocaine (LIDODERM) 5 % Apply 2 Patches [...] Comment on above: Take 1 tablet by lee once daily as needed (anxiety, panic) for up to 30 days. Take by mouth. methylPREDNISolone (3 sources) Corticosteroid Start: 2023 End: 2023 methylPREDNISolone (MEDROL, KATHARINA,) 4 mg Dose-Pack Indications: Rash Follow dosing instructions, take with food. 21 tablet 0 03/22/2024 03/28/2024 Active midodrine hydrochloride 10 mg oral tablet (20 sources) alpha-Adrenergic Agonist Start: 2023 take 1 tablet by mouth every eight hours midodrine (PROAMATINE) 10 mg tablet Indications: Orthostatic hypotension Take 1 tablet by mouth every 8 hours. 90 tablet 1 09/07/2024 Active Start: 07-15-2024 End: 09-07-2024 take 1 tablet by mouth every eight hours midodrine (PROAMITINE) 5 mg tablet Indications: Orthostatic hypotension Take 1 tablet by mouth every 8 hours. 90 tablet 3 09/01/2024 09/07/2024 Discontinued mirtazapine 7.5 mg oral tablet (20 sources) Start: 11-05-2024 End: 11-05-2025 take 1 tablet by mouth once daily at bedtime mirtazapine (REMERON) 7.5 mg tablet Indications: Parkinson's disease with dyskinesia, unspecified whether manifestations fluctuate (HCC) Take 1 tablet by mouth daily at bedtime. 30 tablet 11 11/05/2024 11/05/2025 Active Nirmatrelvir-Ritona vir (1 source) Start: 09-20-2023 Nirmatrelvir-Ritonavi r (Paxlovid) 300 mg (150 mg x 2)-100 mg tablets,dose pack Active 0 PO .COMPLEX September 20, 2023 12:00am take TWO 150 mg tablets of nirmatrelvir with ONE 100 mg tablet of ritonavir twice daily for 5 days nitrofurantoin, macrocrystals 25 mg / nitrofurantoin, monohydrate 75 mg oral capsule (1 source) Nitrofuran Antibacterial Start: 03-13-2024 End: 03-18-2024 take 1 capsule by mouth twice daily nitrofurantoin monohydrate and macrocrystal (MACROBID) 100 mg capsule Take 1 capsule by mouth two times a day for 5 days. 10 capsule 0 03/13/2024 03/18/2024 Active olopatadine 2 mg/ml ophthalmic solution (20 sources) Histamine-1 Receptor Inhibitor Start: 05-04-2024 take 1 drop(s) into the eye(s) once daily Olopatadine (PATADAY ONCE DAILY RELIEF) 0.2 % drop Use 1 Drop in both eyes once daily. 5 mL 05/04/2024 Active ondansetron 4 mg disintegrating oral tablet (20 sources) Serotonin-3 Receptor Antagonist Start: 03-23-2024 End: 09-01-2024 take 1 tablet by mouth every eight hours as needed for nausea ondansetron orally disintegrating (ZOFRAN ODT) 4 mg disintegrating tablet Indications: Gastroesophageal reflux disease with esophagitis without hemorrhage Take 1 tablet by mouth every 8 hours as needed for nausea/vomiting. 30 tablet 2 09/01/2024 Active Start: 08-12-2023 End: 03-23-2024 take 1 tablet by mouth every six hours as needed ondansetron orally disintegrating (ZOFRAN ODT) 4 mg disintegrating tablet Take 1 tablet by mouth every 6 hours as needed for nausea/vomiting. 15 tablet 1 08/12/2023 03/23/2024 Discontinued Comment on above: Take 1 tablet by lee th every 6 hours as needed for nausea/vomiting. pantoprazole 40 mg delayed release oral tablet (20 sources) Proton Pump Inhibitor Start: End: take 1 tablet by mouth once daily pantoprazole DR (PROTONIX) 40 mg tablet Take 1 tablet by mouth once daily. On empty stomach at least 30 minutes before eating. 90 tablet 3 06/25/2024 Active Comment on above: Take 1 tablet by lee th once daily. On empty stomach at least 30 minutes before eating. pravastatin sodium 20 mg oral tablet (20 sources) HMG-CoA Reductase Inhibitor Start: End: take 1 tablet by mouth once daily at bedtime pravastatin (PRAVACHOL) 20 mg tablet Indications: Mixed hyperlipidemia Take 1 tablet by mouth daily at bedtime. 90 tablet 3 10/23/2024 Active Start: 05-13-2019 End: 2023 take 1 tablet by mouth once daily at bedtime pravastatin (PRAVACHOL) 20 mg tablet Indications: Mixed hyperlipidemia Take 1 tablet by mouth daily at bedtime. 90 tablet 3 07/16/2022 2023 Discontinued Comment on above: Take 1 tablet by lee th daily at bedtime. TAKE 1 TABLET BY LEE TH EVERYDAY AT BEDTIME predniSONE 10 mg [...] daily for 3 days with food. sertraline 100 mg oral tablet (20 sources) Serotonin Reuptake Inhibitor Start: 02-10-2025 take 1 tablet by mouth once daily sertraline (ZOLOFT) 100 mg tablet Indications: Adjustment disorder with anxiety Take 1 tablet by mouth once daily. 90 tablet 3 02/10/2025 Active Start: 02-10-2025 End: 08-09-2025 take 1 tablet by mouth once daily sertraline (ZOLOFT) 50 mg tablet Indications: Anxiety Take 1 tablet by mouth once daily. Take a total of 150 mgs daily. 90 tablet 3 02/10/2025 08/09/2025 Active Start: 06-05-2024 End: 02-08-2025 take 1 tablet by mouth once daily sertraline (ZOLOFT) 50 mg tablet Indications: Anxiety Take 1 tablet by mouth once daily. Take a total of 150 mgs daily. 30 tablet 5 06/05/2024 02/08/2025 Discontinued Start: 05-15-2023 End: 02-08-2025 take 1 tablet by mouth once daily sertraline (ZOLOFT) 100 mg tablet Indications: Adjustment disorder with anxiety Take 1 tablet by mouth once daily. 90 tablet 3 05/15/2024 02/08/2025 Discontinued Start: 07-16-2022 End: 05-15-2023 take 1 tablet [...] Comment on above: Take 1 tablet by lee once daily. Completed/Discontinued Medications Medication Drug Class(es) [...] % (5 mg /mL) 5 mg injection busPIRone hydrochloride 10 mg oral tablet (6 sources) Start: 10-04-2020 End: 05-31-2023 take 1 tablet by mouth three times daily Buspirone Discontinued 0.5 - 1 TABLET PO THREE TIMES A DAY October 04, 2020 12:00am May 31, 2023 3:28pm Start: 10-04-2020 End: 05-31-2023 take 30 mg by mouth at bedtime Buspirone Discontinued 30 MG PO AT BEDTIME October 04, 2020 12:00am May 31, 2023 3:28pm cephalexin 500 mg oral capsule (1 source) [...] AFF ECTED AREA 4 TIMES A DAY gabapentin 100 mg oral capsule (20 sources) Anti-epileptic Agent Start: 10-25-2023 End: 10-20-2024 take 1 capsule by mouth twice daily gabapentin (NEURONTIN) 100 mg capsule Take 1 capsule by mouth two times a day for 180 days. 180 capsule 1 10/25/2023 10/20/2024 Discontinued Start: 05-21-2022 End: 10-25-2023 take 1 capsule [...] two times a day for 180 days. iohexol 300 mg IV injection (OMNIPAQUE 300) [...] Active Comment on above: Take by mouth. tiZANidine 2 mg oral tablet (3 sources) Central alpha-2 Adrenergic Agonist Start: 10-04-20 End: 05-31-20 take 2 mg by mouth every eight hours Tizanidine Discontinued 2 MG PO Q8H October 04, 2020 12:00am May 31, 2023 3:29pm triamcinolone acetonide 1 mg/ml topical cream (11 sources) Corticosteroid Start: 05-04-20 24 triamcinolone acetonide (KENALOG) 0.1 % cream Apply 1 application to affected area three times a day. Apply sparingly to area for rash/itching. 30 g 05/04/2024 Suspended Problems Active Problems Problem Classification Problem Date Documented Da te Episodic/Chronic Abdominal pain (3 sources) Nonspecific abdominal pain; Translations: [Unspecified abdominal pain] 05-14-2019 Episodic Adjustment disorders (3 sources) Adjustment disorder with anxious mood; Translations: [Adjustment disorder with anxiety] 06-05-2023 Chronic Allergic reactions (1 source) Allergic contact dermatitis caused by plant material; Translations: [Allergic contact dermatitis due to plants, except food] Episodic Anxiety disorders (20 sources) Anxiety; Translations: [Anxiety state] Onset: 7 05-16-2019 Chronic Short (2 sources) Epidermal burn of right hand; Translations: [Burn of first degree of right hand, unspecified site, initial encounter] Onset: 5 06-04-2025 Episodic Deficiency and other anemia (1 source) Anemia; Translations: [Anemia, unspecified] 01-04-2025 Episodic Deficiency and other anemia (1 source) Anemia, unspecified; Translations: [Anemia, unspecified type] Onset: 5 Episodic Disorders of lipid metabolism (20 sources) Mixed hyperlipidemia; Translations: [Mixed hyperlipidemia] Onset: 0 07-26-2017 Chronic Esophageal disorders (6 sources) Gastroesophageal reflux disease; Translations: [Gastro-esophageal reflux disease without esophagitis] 08-14-2023 Chronic Essential hypertension (20 sources) Benign essential hypertension; Translations: [Essential (primary) hypertension] Onset: 7 06-30-2021 Chronic Fluid and electrolyte disorders (4 sources) Dehydration; Translations: [Dehydration] 05-31-2023 Episodic Headache; including migraine (20 sources) Migraine without aura; Translations: [Migraine without aura] Onset: 7 04-04-2007 Chronic Immunizations and screening for infectious disease (2 sources) Needs influenza immunization; Translations: [Encounter for immunization] Onset: 5 07-19-2023 Episodic Mood disorders (20 sources) Recurrent major depression; Translations: [Major depressive disorder, recurrent, unspecified] Onset: 4 Resolved: 5 Chronic Nausea and vomiting (3 sources) Nausea; Translations: [Nausea] 05-14-2019 Episodic Neoplasms of unspecified nature or uncertain behavior (1 source) Neoplasm of meninges 06-17-2025 Episodic Nutritional deficiencies (3 sources) Vitamin D deficiency; Translations: [Vitamin D deficiency, unspecified] Chronic Other acquired deformities (3 sources) Kyphosis of [...] unspecified] Chronic Other and unspecified benign neoplasm (9 sources) Neoplasm of meninges; 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, unspecified] Chronic Other and unspecified benign neoplasm (2 sources) Benign neoplasm of meninges; 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, unspecified] 06-23-2025 Chronic Other and unspecified benign neoplasm (2 sources) Benign neoplasm of meninges, unspecified; 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 (HCC)] Onset: 5 Chronic Other circulatory disease (6 sources) Low blood pressure; Translations: [Hypotension, unspecified] 06-05-2023 Episodic Other connective tissue disease (8 sources) Myofascial pain; Translations: [Myalgia, other site] 07-04-2023 Episodic Other gastrointestinal disorders (10 sources) Dysphagia; Translations: [Dysphagia, unspecified] 06-18-2023 Episodic Other gastrointestinal disorders (1 source) Abdominal bloating; Translations: [Abdominal distension (gaseous)] 07-19-2023 Episodic Other gastrointestinal disorders (2 sources) Constipation; Translations: [Other constipation] 03-23-2024 Episodic Other gastrointestinal disorders (2 sources) Dysphagia, unspecified; Translations: [Dysphagia, unspecified type] Onset: Episodic Other nervous system disorders (4 sources) Small fiber neuropathy; Translations: [Polyneuropathy, unspecified] Chronic Other nervous system disorders (1 source) Disorder of autonomic nervous system; Translations: [Disorder of the autonomic nervous system, unspecified] 06-05-2024 Chronic Other nervous system disorders (2 sources) Impairment of balance; Translations: [Other abnormalities of gait and mobility] Episodic Other nervous system disorders (1 source) Numbness and tingling sensation of skin; Translations: [Anesthesia of skin] Episodic Other nervous system disorders (2 sources) H/O: brain disorder; Translations: [Personal history of other diseases of the nervous system and sense organs] 05-31-2023 Episodic Other nervous system disorders (2 sources) Difficulty producing voiced sounds; Translations: [Other speech disturbances] 09-28-2024 Episodic Other nutritional; endocrine; and metabolic disorders (1 source) Weight gain; Translations: [Abnormal weight gain] 06-05-2024 Episodic Other nutritional; endocrine; and metabolic disorders (1 source) Weight loss; Translations: [Abnormal weight loss] 07-21-2024 Episodic Other skin disorders (2 sources) Eruption; [...] radiculopathy, cervical region] Onset: 0 05-18-2020 Chronic Thyroid disorders (20 sources) Hypothyroidism; Translations: [Hypothyroidism, unspecified] Onset: 7 10-04-2015 Chronic Unclassified (1 source) Physical Therapy Onset: 4 Viral infection (1 source) Disease caused by 2019-nCoV; Translations: [COVID-19] 09-20-2023 Episodic Past or Other Problems Problem Classification Problem Date Documented Date Episodic/Chronic Administrative/socia l admission (20 sources) Other reduced mobility; Translations: [Other specified conditions influencing health status] Onset: 08-10-2024 08-10-2024 Episodic Anxiety disorders (20 sources) Anxiety disorder due to a general medical condition; Translations: [Anxiety disorder due to known physiological condition] Onset: 11-11-2024 Resolved: 04-12-2025 11-11-2024 Episodic Cardiac dysrhythmias (20 sources) Palpitations; Translations: [Palpitations] Onset: 10-03-2020 10-03-2020 Episodic Genitourinary symptoms and ill-defined conditions (2 sources) Dysuria; Translations: [Urgency of urination] Onset: 02-14-2025 Episodic Malaise and fatigue (2 sources) Fatigue; Translations: [Other fatigue] Onset: 12-24-2024 06-05-2024 Episodic Nutritional deficiencies (3 sources) Cobalamin deficiency; Translations: [Deficiency of other specified B group vitamins] Onset: 12-24-2024 Episodic Other circulatory disease (20 sources) Orthostatic hypotension; Translations: [Orthostatic hypotension] Onset: 07-15-2024 05-31-2023 Episodic Other circulatory disease (2 sources) Orthostatic hypotension; Translations: [Orthostatic hypotension] Onset: 07-15-2024 07-25-2023 Episodic Other connective tissue disease (20 sources) Pes anserinus bursitis of left knee; Translations: [Other bursitis of knee, left knee] Onset: 10-29-2013 10-29-2013 Episodic Other connective tissue disease (1 source) Myalgia, other site; Translations: [Myofascial pain] Onset: 07-02-2024 Episodic Other lower respiratory disease (20 sources) Dyspnea; Translations: [Shortness of breath] Onset: 10-03-2020 10-03-2020 Episodic Other non-traumatic joint disorders (20 sources) Pain in left knee; Translations: [Pain in joint, lower leg] Onset: 10-29-2013 10-29-2013 Episodic Other nutritional; endocrine; and metabolic disorders (1 source) Abnormal weight gain; Translations: [Weight gain] Onset: 12-24-2024 Episodic Other screening for suspected conditions (not mental disorders or infectious disease) (2 sources) Gastrointestinal tract finding; Translations: [Abnormal findings on diagnostic imaging of other parts of digestive tract] Onset: 11-29-2023 11-29-2023 Episodic Spondylosis; intervertebral disc disorders; other back problems (20 sources) Spinal stenosis in cervical region; Translations: [Spinal stenosis, cervical region] Onset: 07-18-2020 07-18-2020 Episodic Substance-related disorders (20 sources) Organic anxiety disorder; 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, 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] Onset: 11-11-2024 11-11-2024 Episodic Superficial injury; contusion (20 sources) Hematoma of scalp; Translations: [Contusion of scalp, initial encounter] Onset: 07-14-2024 07-14-2024 Episodic Syncope (20 sources) Syncope; Translations: [Syncope and collapse] Onset: 07-14-2024 Resolved: 07-15-2024 05-08-2023 Episodic Results Test Name Value Interpretation Reference Range Facility [facility] 09-01-2025 [facility] Telephone ([facility]) MELODYKARYLOU Olivier ([id number]) 1945 F Date Time Provider Department 09/01/25 CINDY GARCIA [facility] During your visit today, we recorded the following information about you: Cindy Garcia LSW 09/01/2025 11:42 AM Signed [facility] SAFE-T SERVICE DATE: 09/01/2025 SERVICE TIME: 11:40 am SW returned pt's call, no answer, left message with callback number. SIGNATURE: MARCIN Pizano PATIENT NAME: Lou Aguayo Melody DATE: September 01, 2025 TIME: 11:41 AM CARLOS Pizano, [facility] [phone] [id number] Allergies As of Date: 09/01/2025 Noted Allergy Reaction SULFA (SULFONAMIDE ANTIBIOTICS) 10/26/2005 4 - Hives Date Reviewed: 08/09/2025 Reviewed by: Denise Carpenter MA - Fully Assessed Reason for Visit: Social Work Consultation [26050] Prescriptions as of 09/01/2025 - QUEtiapine (SEROQUEL) 25 mg tablet Take 0.5-1 tablets by mouth daily at bedtime. - midodrine (PROAMITINE) 5 mg tablet Take 1 tablet by mouth three times a day as needed. - fludrocortisone (FLORINEF) 0.1 mg tablet Take 1 tablet by mouth once daily. - hydrOXYzine HCl (ATARAX) 25 mg tablet Take 1 tablet by mouth three times a day as needed. - Mirtazapine (REMERON) 7.5 mg tablet Take 1 tablet by mouth daily at bedtime. - sertraline (ZOLOFT) 100 mg tablet Take 1 tablet by mouth once daily. - pantoprazole DR (PROTONIX) 40 mg tablet Take 1 tablet by mouth once daily. On empty stomach at least 30 minutes before eating. - levothyroxine (SYNTHROID) 75 mcg tablet Take 1 tablet by mouth once daily. Take on empty stomach. For Thyroid - carbidopa-levodopa (SINEMET 25-100) 25-100 mg per tablet Take 1 tab at 4AM, 1 tab at 7AM, 2 tabs at 11AM, 1/2 tab at 230pm on exercise days, 2 tabs at 3PM and 2 tabs at 7PM. - sertraline (ZOLOFT) 50 mg tablet Take 1 tablet by mouth once daily. Take a total of 150 mgs daily. - pravastatin (PRAVACHOL) 20 mg tablet Take 1 tablet by mouth daily at bedtime. - carbidopa-levodopa CR (SINEMET CR) 50-200 mg per tablet TAKE 1 TABLET BY MOUTH in Morning and before bedtime as instructed. - ondansetron orally disintegrating (ZOFRAN ODT) 4 mg disintegrating tablet Take 1 tablet by mouth every 8 hours as needed for nausea/vomiting. - LORazepam (ATIVAN) 0.5 mg Take 0.5 mg by mouth as needed. - Cholecalciferol, Vitamin D3, 50 mcg (2,000 unit) cap Take 2,000 Units by mouth once daily. Problem List As Of Date 09/01/2025 Noted Resolved Essential hypertension, benign [I10] 04/04/2007 Hypothyroidism [E03.9] 04/04/2007 COMMON MIGRAINE [346.1] 04/04/2007 EVAN (generalized anxiety disorder) [F41.1] 04/04/2007 Mixed hyperlipidemia [E78.2] 10/26/2009 Pes anserinus bursitis of left knee [M70.52] 10/29/2013 Left knee pain [M25.562] 10/29/2013 Cervical spondylosis without myelopathy [M47.81*05/18/2020 Parkinson disease (HCC) [G20.A1] 07/18/2020 Spinal stenosis of cervical region [M48.02] 07/18/2020 Intracranial meningioma (HCC) [D32.0] 07/18/2020 Palpitations [R00.2] 10/03/2020 Shortness of breath [R06.02] 10/03/2020 Tachycardia [R00.0] 06/12/2021 Neck pain [M54.2] 04/09/2023 Neck muscle weakness [M53.82] 04/09/2023 Syncope and collapse [R55] 07/14/2024 07/15/2024 Hematoma of scalp [S00.03XA] 07/14/2024 Orthostatic hypotension [I95.1] 07/15/2024 Impaired functional mobility, balance, gait, an*08/10/2024 Recurrent major depressive disorder, in full re*11/11/2024 Anxiety disorder due to general medical conditi*11/11/2024 04/12/2025 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/11/2024 Moderate episode of recurrent major depressive *01/04/2025 04/12/2025 DDD (degenerative disc disease), cervical [M50.*08/09/2025 Encounter Status:Closed by CINDY GARCIA on 09/01/25 [facility] 08-30-2025 [facility] Telephone (NSCAMN) LOU OLIVER ([id number]) 1945 F Date Time Provider Department 08/30/25 CINDY GARCIA [facility] During your visit today, we recorded the following information about you: Cindy Garcia LSW 08/30/2025 2:40 PM Signed [facility] SAFE-T SERVICE DATE: 08/30/2025 SERVICE TIME: 2:40 pm SW attempted to call pt to assess, no answer, left a message with callback number. SIGNATURE: MARCIN Pizano PATIENT NAME: Lou Oliver DATE: August 30, 2025 TIME: 2:40 PM CARLOS Pizano, MARCIN [phone] [id number] Allergies As of Date: 08/30/2025 Noted Allergy Reaction SULFA (SULFONAMIDE ANTIBIOTICS) 10/26/2005 4 - Hives Date Reviewed: 08/09/2025 Reviewed by: Denise Carpenter MA - Fully Assessed Prescriptions as of 08/30/2025 - QUEtiapine (SEROQUEL) 25 mg tablet Take 0.5-1 tablets by mouth daily at bedtime. - midodrine (PROAMITINE) 5 mg tablet Take 1 tablet by mouth three times a day as needed. - fludrocortisone (FLORINEF) 0.1 mg tablet Take 1 tablet by mouth once daily. - hydrOXYzine HCl (ATARAX) 25 mg tablet Take 1 tablet by mouth three times a day as needed. - Mirtazapine (REMERON) 7.5 mg tablet Take 1 tablet by mouth daily at bedtime. - sertraline (ZOLOFT) 100 mg tablet Take 1 tablet by mouth once daily. - pantoprazole DR (PROTONIX) 40 mg tablet Take 1 tablet by mouth once daily. On empty stomach at least 30 minutes before eating. - levothyroxine (SYNTHROID) 75 mcg tablet Take 1 tablet by mouth once daily. Take on empty stomach. For Thyroid - carbidopa-levodopa (SINEMET 25-100) 25-100 mg per tablet Take 1 tab at 4AM, 1 tab at 7AM, 2 tabs at 11AM, 1/2 tab at 230pm on exercise days, 2 tabs at 3PM and 2 tabs at 7PM. - sertraline (ZOLOFT) 50 mg tablet Take 1 tablet by mouth once daily. Take a total of 150 mgs daily. - pravastatin (PRAVACHOL) 20 mg tablet Take 1 tablet by mouth daily at bedtime. - carbidopa-levodopa CR (SINEMET CR) 50-200 mg per tablet TAKE 1 TABLET BY MOUTH in Morning and before bedtime as instructed. - ondansetron orally disintegrating (ZOFRAN ODT) 4 mg disintegrating tablet Take 1 tablet by mouth every 8 hours as needed for nausea/vomiting. - LORazepam (ATIVAN) 0.5 mg Take 0.5 mg by mouth as needed. - Cholecalciferol, Vitamin D3, 50 mcg (2,000 unit) cap Take 2,000 Units by mouth once daily. Problem List As Of Date 08/30/2025 Noted Resolved Essential hypertension, benign [I10] 04/04/2007 Hypothyroidism [E03.9] 04/04/2007 COMMON MIGRAINE [346.1] 04/04/2007 EVAN (generalized anxiety disorder) [F41.1] 04/04/2007 Mixed hyperlipidemia [E78.2] 10/26/2009 Pes anserinus bursitis of left knee [M70.52] 10/29/2013 Left knee pain [M25.562] 10/29/2013 Cervical spondylosis without myelopathy [M47.81*05/18/2020 Parkinson disease (HCC) [G20.A1] 07/18/2020 Spinal stenosis of cervical region [M48.02] 07/18/2020 Intracranial meningioma (HCC) [D32.0] 07/18/2020 Palpitations [R00.2] 10/03/2020 Shortness of breath [R06.02] 10/03/2020 Tachycardia [R00.0] 06/12/2021 Neck pain [M54.2] 04/09/2023 Neck muscle weakness [M53.82] 04/09/2023 Syncope and collapse [R55] 07/14/2024 07/15/2024 Hematoma of scalp [S00.03XA] 07/14/2024 Orthostatic hypotension [I95.1] 07/15/2024 Impaired functional mobility, balance, gait, an*08/10/2024 Recurrent major depressive disorder, in full re*11/11/2024 Anxiety disorder due to general medical conditi*11/11/2024 04/12/2025 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/11/2024 Moderate episode of recurrent major depressive *01/04/2025 04/12/2025 DDD (degenerative disc disease), cervical [M50.*08/09/2025 Encounter Status:Closed by CINDY GARCIA on 08/30/25 [facility] 08-27-2025 [facility] Telephone (PSYRMN) LOU OLIVER ([id number]) 1945 F Date Time Provider Department 08/27/25 JONATANBeata SUNDAY NINAYRMN During your visit today, we recorded the following information about you: Nancy Camargo 08/27/2025 3:29 PM Signed Olu, Before scheduling the patient for a sooner appointment with you, on your schedule it seems that you only have in-person appointments available this upcoming Saturday and Saturday. The patient was wondering if we could schedule a virtual visit instead of in-person with you on either of those days. Thank you, Nancy and [facility] Triage Team Allergies As of Date: 08/27/2025 Noted Allergy Reaction SULFA (SULFONAMIDE ANTIBIOTICS) 10/26/2005 4 - Hives Date Reviewed: 08/09/2025 Reviewed by: Denise Carpenter MA - Fully Assessed Reason for Visit: Appointment [186] Returning Patient's Call [[id number]] Prescriptions as of 08/27/2025 - midodrine (PROAMITINE) 5 mg tablet Take 1 tablet by mouth three times a day as needed. - fludrocortisone (FLORINEF) 0.1 mg tablet Take 1 tablet by mouth once daily. - hydrOXYzine HCl (ATARAX) 25 mg tablet Take 1 tablet by mouth three times a day as needed. - Mirtazapine (REMERON) 7.5 mg tablet Take 1 tablet by mouth daily at bedtime. - sertraline (ZOLOFT) 100 mg tablet Take 1 tablet by mouth once daily. - pantoprazole DR (PROTONIX) 40 mg tablet Take 1 tablet by mouth once daily. On empty stomach at least 30 minutes before eating. - levothyroxine (SYNTHROID) 75 mcg tablet Take 1 tablet by mouth once daily. Take on empty stomach. For Thyroid - carbidopa-levodopa (SINEMET 25-100) 25-100 mg per tablet Take 1 tab at 4AM, 1 tab at 7AM, 2 tabs at 11AM, 1/2 tab at 230pm on exercise days, 2 tabs at 3PM and 2 tabs at 7PM. - sertraline (ZOLOFT) 50 mg tablet Take 1 tablet by mouth once daily. Take a total of 150 mgs daily. - pravastatin (PRAVACHOL) 20 mg tablet Take 1 tablet by mouth daily at bedtime. - carbidopa-levodopa CR (SINEMET CR) 50-200 mg per tablet TAKE 1 TABLET BY MOUTH in Morning and before bedtime as instructed. - ondansetron orally disintegrating (ZOFRAN ODT) 4 mg disintegrating tablet Take 1 tablet by mouth every 8 hours as needed for nausea/vomiting. - LORazepam (ATIVAN) 0.5 mg Take 0.5 mg by mouth as needed. - Cholecalciferol, Vitamin D3, 50 mcg (2,000 unit) cap Take 2,000 Units by mouth once daily. Problem List As Of Date 08/27/2025 Noted Resolved Essential hypertension, benign [I10] 04/04/2007 Hypothyroidism [E03.9] 04/04/2007 COMMON MIGRAINE [346.1] 04/04/2007 EVAN (generalized anxiety disorder) [F41.1] 04/04/2007 Mixed hyperlipidemia [E78.2] 10/26/2009 Pes anserinus bursitis of left knee [M70.52] 10/29/2013 Left knee pain [M25.562] 10/29/2013 Cervical spondylosis without myelopathy [M47.81*05/18/2020 Parkinson disease (HCC) [G20.A1] 07/18/2020 Spinal stenosis of cervical region [M48.02] 07/18/2020 Intracranial meningioma (HCC) [D32.0] 07/18/2020 Palpitations [R00.2] 10/03/2020 Shortness of breath [R06.02] 10/03/2020 Tachycardia [R00.0] 06/12/2021 Neck pain [M54.2] 04/09/2023 Neck muscle weakness [M53.82] 04/09/2023 Syncope and collapse [R55] 07/14/2024 07/15/2024 Hematoma of scalp [S00.03XA] 07/14/2024 Orthostatic hypotension [I95.1] 07/15/2024 Impaired functional mobility, balance, gait, an*08/10/2024 Recurrent major depressive disorder, in full re*11/11/2024 Anxiety disorder due to general medical conditi*11/11/2024 04/12/2025 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/11/2024 Moderate episode of recurrent major depressive *01/04/2025 04/12/2025 DDD (degenerative disc disease), cervical [M50.*08/09/2025 Encounter Status:Closed by NANCY CAMARGO on 08/27/25 [facility] 08-09-2025 CNOV Office Visit (INTMWS ) LOU OLIVER ([id number]) 1945 F Date Time Provider Department 08/09/25 11:20 AM LUCÍA RIZZO INTMWS During your visit today, we recorded the following information about you: Pulse Respiration Blood pressure Weight 81/minute 16/minute 75/41 57.6 kg Lucía Rizzo MD 08/09/2025 6:07 PM Signed Lou Aguayo Melody is a 80 year old female here for a Medicare wellness visit. Medicare Health Risk Assessment General Health Good Exercise: Minutes/Day 40 min Exercise: Days/Week 5 days Alcohol: Daily Use Monthly or less Alcohol: Drinks/Day Patient does not drink Alcohol: 6 or more drinks Never Feel off balance Yes Concerns: Teeth/Dentures No Concerns: Sexual function No Troubled by feelings Anxious; Stressed; Lonely; Isolated Frequency: Eating healthy diet Several days ADLs requiring help Grocery shopping; Housework; Sitting or standing; Walking; Taking medications Safety precautions in home/vehicle Yes Smoke, vape, chews tobacco No Difficulty hearing Yes Difficulty seeing Yes Current Providers Specialists: I have reviewed specialist-related care of the patient in the medical record. Medical/Family history review Reviewed and updated problem list, medical/surgical/famil y/social history, medications, and allergies. Opioid use review Prescribed: No opioid use on file in the last 90 days Patient-reported: No opioid use on file in the last 90 days Depression screening PHQ-2 Score: 2 (07/10/2025 9:08 PM) PHQ-9 Score: 12 (07/10/2025 9:08 PM) Based on score and interview, patient is not at risk for depression. Recommendation: no further intervention at this time Anxiety screening EVAN-2 Total Score: 2 (08/07/2025 1:46 PM) EVAN-7 Total Score: 8 (08/07/2025 1:46 PM) Cognitive screening Mini Cog Score: 5 Cognitive screening reviewed and No further action needed (score 3-5). Functional Observation Was the patient's Timed Up AND Go test unsteady or >= 12 seconds? Yes Advance Directives Surrogate decision maker and/or advance care plan documented Measurements BP (!) 75/41 Pulse 81 Resp 16 Wt 57.6 kg (127 lb) BMI 22.50 kg/m? Vision Screening: Follows with optometry/ophthalmolog y Assessment/Plan Medicare annual wellness visit, subsequent (00.00) - Counseled on healthy diet and regular exercise - Fall avoidance information provided - Personalized prevention plan provided Reason for Visit Medicare and falls. LUIGI Blake is a 80-year-old female with a history of Parkinson's disease and autonomic dysfunction, accompanied by her niece, presenting for recurrent falls and neck pain. Lou reports frequent falls, occurring approximately once or twice a week, often associated with episodes of syncope. She attributes these falls to both her Parkinson's disease and her neck pain, which she describes as a constant spasm affecting her 95% of the time. The pain is alleviated by her carbidopa medication, which she takes regularly. She notes that her medication schedule has been adjusted by Dr. Mabry, but she now finds it difficult to go more than 3 hours between doses, whereas she previously could manage 4 hours. Lou also reports significant fluctuations in her blood pressure, with readings varying from 77 mmHg to 147 mmHg. She is currently taking midodrine on an as-needed basis, typically 2-3 times a week, when her blood pressure falls below 110 mmHg. She has been hesitant to take it more frequently due to concerns about potential side effects, including the risk of myocardial infarction. Her niece, who is closely involved in her care, suggests that she should take a lower dose of midodrine (2.5 mg) daily to stabilize her blood pressure. Lou lives alone but has a strong support system, including her niece and two daughters, one of whom recently moved closer to provide additional assistance. She is currently undergoing physical therapy and uses a rollator for mobility. She also has a neck brace but finds it uncomfortable and does not wear it consistently. Her niece is concerned about her safety and well-being, particularly given her history of falls and fluctuating blood pressure. SOCIAL HISTORY[1] Past medical history, appointments, medications, allergies reviewed. Pertinent Lab/Diagnostic Studies are reviewed and discussed today Current Outpatient Medications: fludrocortisone (FLORINEF) 0.1 mg tablet hydrOXYzine HCl (ATARAX) 25 mg tablet Mirtazapine (REMERON) 7.5 mg tablet sertraline (ZOLOFT) [address] (PROTONIX) 40 mg tablet levothyroxine (SYNTHROID) 75 mcg tablet sertraline (ZOLOFT) 50 mg tablet pravastatin (PRAVACHOL) 20 mg tablet ondansetron orally disintegrating (ZOFRAN ODT) 4 mg disintegrating tablet LORazepam (ATIVAN) 0.5 mg Cholecalciferol, Vitamin D3, 50 mcg (2,000 unit) cap midodrine (PROAMI (more content not included)... [facility] LOU OLIVER ([id number]) 1945 F Date Time Provider Department 07/22/25 SAYRA MABRY During your visit today, we recorded the following information about you: Marcia Luciano MA 07/22/2025 12:42 PM Signed Received PT sebastian from [facility]. Placed on Dr. Mabry desk for review and signature Marcia Luciano MA 07/23/2025 3:00 PM Signed Forms faxed back and confirmation received Allergies As of Date: 07/22/2025 Noted Allergy Reaction SULFA (SULFONAMIDE ANTIBIOTICS) 10/26/2005 4 - Hives Date Reviewed: 07/12/2025 Reviewed by: Sayra Mabry MD - Fully Assessed Reason for Visit: Orders [681] Prescriptions as of 07/23/2025 - fludrocortisone (FLORINEF) 0.1 mg tablet Take 1 tablet by mouth once daily. - hydrOXYzine HCl (ATARAX) 25 mg tablet Take 1 tablet by mouth three times a day as needed. - Mirtazapine (REMERON) 7.5 mg tablet Take 1 tablet by mouth daily at bedtime. - sertraline (ZOLOFT) 100 mg tablet Take 1 tablet by mouth once daily. - pantoprazole DR (PROTONIX) 40 mg tablet Take 1 tablet by mouth once daily. On empty stomach at least 30 minutes before eating. - levothyroxine (SYNTHROID) 75 mcg tablet Take 1 tablet by mouth once daily. Take on empty stomach. For Thyroid - carbidopa-levodopa (SINEMET 25-100) 25-100 mg per tablet Take 1 tab at 4AM, 1 tab at 7AM, 2 tabs at 11AM, 1/2 tab at 230pm on exercise days, 2 tabs at 3PM and 2 tabs at 7PM. - sertraline (ZOLOFT) 50 mg tablet Take 1 tablet by mouth once daily. Take a total of 150 mgs daily. - pravastatin (PRAVACHOL) 20 mg tablet Take 1 tablet by mouth daily at bedtime. - carbidopa-levodopa CR (SINEMET CR) 50-200 mg per tablet TAKE 1 TABLET BY MOUTH in Morning and before bedtime as instructed. - midodrine (PROAMATINE) 10 mg tablet Take 1 tablet by mouth every 8 hours. - ondansetron orally disintegrating (ZOFRAN ODT) 4 mg disintegrating tablet Take 1 tablet by mouth every 8 hours as needed for nausea/vomiting. - LORazepam (ATIVAN) 0.5 mg Take 0.5 mg by mouth as needed. - Cholecalciferol, Vitamin D3, 50 mcg (2,000 unit) cap Take 2,000 Units by mouth once daily. Problem List As Of Date 07/22/2025 Noted Resolved Essential hypertension, benign [I10] 04/04/2007 Hypothyroidism [E03.9] 04/04/2007 COMMON MIGRAINE [346.1] 04/04/2007 EVAN (generalized anxiety disorder) [F41.1] 04/04/2007 Mixed hyperlipidemia [E78.2] 10/26/2009 Pes anserinus bursitis of left knee [M70.52] 10/29/2013 Left knee pain [M25.562] 10/29/2013 Cervical spondylosis without myelopathy [M47.81*05/18/2020 Parkinson disease (HCC) [G20.A1] 07/18/2020 Spinal stenosis of cervical region [M48.02] 07/18/2020 Intracranial meningioma (HCC) [D32.0] 07/18/2020 Palpitations [R00.2] 10/03/2020 Shortness of breath [R06.02] 10/03/2020 Tachycardia [R00.0] 06/12/2021 Neck pain [M54.2] 04/09/2023 Neck muscle weakness [M53.82] 04/09/2023 Syncope and collapse [R55] 07/14/2024 07/15/2024 Hematoma of scalp [S00.03XA] 07/14/2024 Orthostatic hypotension [I95.1] 07/15/2024 Impaired functional mobility, balance, gait, an*08/10/2024 Recurrent major depressive disorder, in full re*11/11/2024 Anxiety disorder due to general medical conditi*11/11/2024 04/12/2025 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/11/2024 Moderate episode of recurrent major depressive *01/04/2025 04/12/2025 Encounter Status:Closed by MARCIA LUCIANO on 07/23/25 Normal [facility] Inital Evaluation (1) - PTon 07-21-2025 Inital Evaluation (1) - PT [facility] [place] [address] / REHABILITATION SERVICES INITIAL EVALUATION MR#: [id number] Acct: [id number] Name: LOU OLIVER Rep #: [id number] : 1945 80 From: Gisselle MARLEY Referring Dr.: Dr. Sayra Mabry MD Status: REG RCR Insurance: MEDICARE PART A B AARP Patient's Visit Information Visit Information Visit Information: LOU OLIVER is a 80 year old F referred to Physical Therapy by Dr. Sayra Mabry MD with a diagnosis of PD. Date of Evaluation: 07/21/25 Physical Therapist: DONELL Agarwal Visit Plan Frequency: 2x /Week Duration: 2 Months Plan: USE GAIT BELT AT ALL TIMES. Pt has VERY POOR BALANCE. Instructed pt to use her rollator at all times. 2X/ week for 8 weeks for gait training, functional balance, gait with slow head turns (gait belt and start with rollator due to unsteadiness), functional strength, postural exercises as long as does not cause pain with HEP Subjective Subjective: Pt is not driving. she has fallen twice in the last week. The week before she fell 1-2 times. She has fallen down on carpet or plants. She has spinal stenosis. Her legs feel like they will just give out and once in awhile she does freeze. Her legs will collapse once in awhile. If she stands up too fast she will fall. She uses the cane and the rollator inside her home. She used to love to walk but she can not do it because of her neck. She lives in a house. She is on one floor. She lives alone. People check on her everyday (family and neighbors). She is starting to struggle to get into bed and lifting the covers. She stopped going to [place] [facility] and it is too far away. Pain C-spine: Pain Intensity (Out of 10): 5 Comment: Achy Objective Objective: Gait: walking back to the treatment with increase major veering to the point that the therapist had to hold onto her and she was using a cane. Had the pt walk with the rollator and even with the rollator and CGA she did manage to veer twice while walking. Pt sight is limited due to severe neck flexion LE MMT: R hip flex 10.7 and L 6.7 R knee ext 13.7 and L 12.5 R knee flex 11.5 and L 9.3 Seated hip abd R 7.9 and L 4.6 FGA 5 (Told pt that she needs to use the rollator at all times due to her poor balance) Sit to stand: able on first attempt but needs B UE to stand up Balance/Special Test Scores Functional Gait Assessment Score: 5 % Disability: 83.3400 Lower Extremity Functional Score: 20 Goals Goal 1:: I HEP Goal Time Frame: 8-12 Weeks Goal 2:: Increase balance (FGA was 5 on eval). Goal Time Frame: 8-12 Weeks Goal 3:: Be able to walk back to the treatment area with least restrictive device with no veering Goal Time Frame: 8-12 Weeks Goal 4:: Be able to walk with rollator with head turns without head turns. Goal Time Frame: 8-12 Weeks Rehabilitation Potential Rehabilitation Potential: Good Anticipated Interventions Patient/Client Instruction: Educate patient on: Condition and Plan of Care For the Purpose of:: To improve nutrient delivery to tissue, To improve muscle performance and motor function, To improve ability to perform ADL's, To increase tolerance to activity/condition/pos ition, To improve performance and independence with ADL's, To decrease level of supervision to perform tasks, To improve ability of physical actions for home/community/work/le isure, To improve gait and locomotor functions, To improve endurance, To improve balance and To improve safety with gait Therapeutic Exercise to Include: Strength training, Endurance training, Balance training, Coordination, Body mechanics, Postural training, Flexibilty training, Gait and locomotor training, Neuromotor development and Scapular Strength/Stabilization For the Purpose of:: To decrease pain, To increase ROM, To improve nutrient delivery to tissue, To improve muscle performance and motor function, To improve ability to perform ADL's, To increase tolerance to activity/condition/pos ition, To improve performance and independence with ADL's, To decrease level of supervision to perform tasks, To improve ability of physical actions for home/community/work/le isure, To improve gait and locomotor functions, To improve endurance, To improve balance and To improve safety with gait Functional Training to Include: Gait training For the Purpose of:: To improve gait and locomotor functions and To improve safety with gait Text: Thank you for the opportunity to evaluate your patient. For Medicare and Medicare HMO plans, please review the plan of care and approve it. It will need to be FAXED BACK to us at [phone] for Medicare purposes. For Medicare only, by signing this I certify the plan of care. Please let me know if there are questions or concerns regarding this (more content not included)... [facility] LOU OLIVER ([id number]) 1945 F Date Time Provider Department 07/12/25 11:00 AM SAYRA MABRY NRN During your visit today, we recorded the following information about you: Respiration Weight 16/minute 58.3 kg Sayra Mabry MD 07/18/2025 3:14 PM Signed [facility] - FOLLOW UP EVALUATION Recording using [employer] software for draft documentation of the visit was discussed with the patient/authorized auto service representative; all questions welcomed and answered. Patient/authorized auto service representative agreed to proceed Lucía Rizzo MD [id number] [facility] [id number] Dear Lucía Rizzo MD: I had the pleasure of seeing Ms. Oliver for follow-up today. As you know she is a 80 year old left-handed female with a history of PD since 2019. Subjective Previous Plan- 03/11/2025 Visit: 1. Parkinson's disease with dyskinesia, unspecified whether manifestations fluctuate (HCC) (G20.B1) - Experiencing increased off periods, particularly around 3:30 PM and 7:30 PM, with symptoms of bradykinesia and freezing episodes. - Current medication regimen includes Sinemet, with doses at 4:00 AM, 7:30 AM, 11:30 AM, 3:30 PM, 7:30 PM, and 11:00-11:15 PM. - Dyskinesia noted during examination- mild - Discussed potential addition of amantadine to manage dyskinesia and extend the duration of Sinemet's effect; patient prefers to avoid adding new medications at this time. - Advised taking Sinemet doses on an empty stomach, particularly the 3:30 PM and 7:30 PM doses, to enhance absorption and efficacy. - Increased 7:30 PM Sinemet dose to 2 tablets. - Added an extra half tablet of Sinemet at 2:30 PM on exercise days to prevent wearing off at 3:30. - Updated Sinemet prescription to reflect new dosing schedule - Follow-up in 4 months to reassess symptoms and medication efficacy. 2. Orthostatic hypotension (I95.1) - Blood pressure generally well-controlled with fludrocortisone; midodrine not currently being used. - Advised patient to monitor blood pressure more diligently, especially with changes in Parkinson's medication. - Educated on taking midodrine with breakfast, lunch, and dinner if needed, but not later to avoid supine hypertension. - Patient performing ggj-jw-zhorf exercises without dizziness. 3. Anxiety disorder, unspecified type (F41.9) - Anxiety symptoms improved with current treatment of mirtazapine. - Patient reports better sleep and increased appetite. - Continue current mirtazapine regimen. - continue follow-up with psychiatry Interval History: Lou Oliver is a 80-year-old female with Parkinson's disease and orthostatic hypotension presenting for follow-up. She is accompanied by her daughters who provide additional history. Lou reports improvement in her daily nausea, which now occurs only occasionally. She has found that eating smaller, more frequent meals helps manage her symptoms, while larger meals tend to worsen her condition. She continues to experience significant orthostatic hypotension, which she describes as her biggest enemy. She reports a recent blood pressure reading as low as 68/42, which made her feel sick and caused her legs to feel weak. She notes that her blood pressure readings are typically better in the morning and tend to drop at night. She continues to take midodrine as needed when her blood pressure is below 110, but she did not take it today because she forgot to check her blood pressure upon waking. Her current medication regimen includes carbidopa-levodopa. She reports that it takes 45 minutes to an hour after taking the medication to feel better. She has been adjusting the timing of her doses to accommodate her exercise classes, sometimes taking an extra half pill at 2:30 PM to prepare for a 3:30 PM class. She also takes a dose at 11:30 AM, which she moves around by about 30 minutes on exercise days. She also takes a dose at 4:00 AM along with her thyroid medication and steroids. Lou reports significant balance issues and falls at least once or twice a week. She describes her balance as terrible and notes that she can feel off balance even when her blood pressure is normal. She also experiences episodes during exercise classes where she feels lightheaded and has to sit down. She has not participated in one-on-one physical therapy at [facility] since September due to the distance and difficulty arranging transportation, but she continues to attend group exercise classes in [place]. She also reports neck pain due to stenosis and finds that Tylenol is ineffective. She has been told not to take Aleve, but notes that it is the only medication that provides relief. She is concerned about the potential impact of Aleve on her kidneys and heart. Her current medications include hydroxyzine, which she takes th (more content not included)... Normal [facility] CBC W Auto Differential pane l (Bld)on 07-07-2025 Basophils (Bld) [#/Vol] 0.03 10*3/uL Normal <0.11 [facility] Comment on above: Order Comment: Speci men Type: BLOOD SPECIMEN Ordering Facility: [facility] Address: [address] [place] [address] Performed By: #### 2 4323-8 #### [facility] CLIA [id number] [address] [place] [address] [place] #### 83308-4 #### [facility] CLIA [id number] [address] CLIA [id number] [address] [place] [address] [place] #### 3016-3, 9 #### [facility] CLIA [id number] [address] STATES [facility] Basophils/100 WBC (Bld) 0.7 % Normal [facility] Comment on above: Order Comment: Speci men Type: BLOOD SPECIMEN Ordering Facility: [facility] Address: [address] [place] [address] Performed By: #### 2 4323-8 #### [facility] CLIA [id number] [address] [place] [address] [place] #### 04349-5 #### [facility] CLIA [id number] [address] [place] [facility] CLIA [id number] [address] [place] [address] [place] #### 3016-3, 2132-06 #### [facility] CLIA [id number] [address] [place] [address] [place] Differential cell count method Nom (Bld) Auto Normal [facility] Comment on above: Order Comment: Speci men Type: BLOOD SPECIMEN Ordering Facility: [facility] Address: [address] [place] [address] Performed By: #### 2 4323-8 #### [facility] CLIA [id number] [address] [place] [address] [place] #### 01777-7 #### [facility] CLIA [id number] [address] [place] [address] [place] [facility] CLIA [id number] [address] [place] [address] [place] #### 3016-3, 2132-06 #### [facility] CLIA [id number] [address] [place] Eosinophils (Bld) [#/Vol] 0.18 10*3/uL Normal <0.46 [facility] Comment on above: Order Comment: Speci men Type: BLOOD SPECIMEN Ordering Facility: [facility] Address: [address] [place] [address] Performed By: #### 2 4323-8 #### [facility] CLIA [id number] [address] [place] [address] [place] #### 95913-2 #### [facility] CLIA [id number] [address] [place] [address] [place] [facility] CLIA [id number] [address] [place] [address] [place] #### 3016-3, 2132-06 #### [facility] CLIA [id number] [address] STATES [facility] Eosinophils/100 WBC (Bld) 4.5 % Normal [facility] Comment on above: Order Comment: Speci men Type: BLOOD SPECIMEN Ordering Facility: [facility] Address: [address] [place] [address] Performed By: #### 2 432-8 #### [facility] CLIA [id number] [address] [place] [address] [place] #### 40988-5 #### [facility] CLIA [id number] [address] STATES OF [facility] CLIA [id number] [address] [place] [address] [place] #### 3016-3, 2132-06 #### [facility] CLIA [id number] [address] [place] Erythrocyte distribution width (RBC) [Ratio] 13.2 % Normal 11.5-15.0 [facility] Comment on above: Order Comment: Speci men Type: BLOOD SPECIMEN Ordering Facility: [facility] Address: [address] [place] [address] Performed By: #### 2 4323-8 #### [facility] CLIA [id number] [address] [place] [address] [place] #### 52547-4 #### [facility] CLIA [id number] [address] [place] [facility] CLIA [id number] [address] [place] [address] [place] #### 3016-3, 2132-06 #### [facility] CLIA [id number] [address] Hematocrit (Bld) [Volume fraction] 33.3 % Low 36.0-46.0 [facility] Comment on above: Order Comment: Speci men Type: BLOOD SPECIMEN Ordering Facility: [facility] Address: [address] [place] [address] Performed By: #### 2 4323-8 #### [facility] CLIA [id number] [address] [place] [address] [place] #### 46742-3 #### [facility] CLIA [id number] [address] CLIA [id number] [address] [place] [address] [place] #### 3016-3, 2132-06 #### [facility] CLIA [id number] [address] Hemoglobin (Bld) [Mass/Vol] 11.2 g/dL Low 11.5-15.5 [facility] Comment on above: Order Comment: Speci men Type: BLOOD SPECIMEN Ordering Facility: [facility] Address: [address] [place] [address] Performed By: #### 2 4323-8 #### [facility] CLIA [id number] [address] [place] [address] [place] #### 43428-9 #### [facility] CLIA [id number] [address] [place] [facility] CLIA [id number] [address] [place] [address] [place] #### 3016-3, 2132-06 #### [facility] CLIA [id number] [address] [place] Immature granulocytes (Bld) [#/Vol] 10*3/uL Normal <0.10 [facility] Comment on above: Order Comment: Speci men Type: BLOOD SPECIMEN Ordering Facility: [facility] Address: [address] [place] [address] Performed By: #### 2 4323-8 #### [facility] CLIA [id number] [address] [place] [address] [place] #### 86910-6 #### [facility] CLIA [id number] [address] [place] [facility] CLIA [id number] [address] [place] [address] [place] #### 3016-3, 2132-06 #### [facility] CLIA [id number] [address] [place] Immature granulocytes/100 WBC (Bld) 0.2 % Normal [facility] Comment on above: Order Comment: Speci men Type: BLOOD SPECIMEN Ordering Facility: [facility] Address: [address] [place] [address] Performed By: #### 2 4323-8 #### [facility] CLIA [id number] [address] [place] [address] [place] #### 10634-2 #### [facility] CLIA [id number] [address] [place] [address] [place] [facility] CLIA [id number] [address] [place] [address] [place] #### 3016-3, 2132-06 #### [facility] CLIA [id number] 1 [place] [address] [place] Lymphocytes (Bld) [#/Vol] 1.45 10*3/uL Normal 1.00-4.00 [facility] Comment on above: Order Comment: Speci men Type: BLOOD SPECIMEN Ordering Facility: [facility] Address: [address] [place] [address] Performed By: #### 2 4323-8 #### [facility] CLIA [id number] [address] [place] [address] [place] #### 00804-6 #### [facility] CLIA [id number] [address] CLIA [id number] [address] [place] [address] [place] #### 3016-3, 2132-06 #### [facility] CLIA [id number] [address] Lymphocytes/100 WBC (Bld) 36.2 % Normal [facility] Comment on above: Order Comment: Speci men Type: BLOOD SPECIMEN Ordering Facility: [facility] Address: [address] [place] [address] Performed By: #### 2 4323-8 #### [facility] CLIA [id number] [address] [place] [address] [place] #### 91059-3 #### [facility] CLIA [id number] [address] CLIA [id number] [address] [place] [address] [place] #### 3016-3, 2132-06 #### [facility] CLIA [id number] [address] MCH (RBC) [Entitic mass] 30.5 pg Normal 26.0-34.0 [facility] Comment on above: Order Comment: Speci men Type: BLOOD SPECIMEN Ordering Facility: [facility] Address: [address] [place] [address] Performed By: #### 2 4323-8 #### [facility] CLIA [id number] [address] [place] [address] [place] #### 74244-5 #### [facility] CLIA [id number] [address] CLIA [id number] [address] [place] [address] [place] #### 3016-3, 2132-06 #### [facility] CLIA [id number] [address] [place] MCHC (RBC) [Mass/Vol] 33.6 g/dL Normal 30.5-36.0 [facility] Comment on above: Order Comment: Speci men Type: BLOOD SPECIMEN Ordering Facility: [facility] Address: [address] [place] [address] Performed By: #### 2 4323-8 #### [facility] CLIA [id number] [address] [place] [address] [place] #### 80436-2 #### [facility] CLIA [id number] [address] STATES OF [facility] CLIA [id number] [address] [place] [address] [place] #### 3016-3, 2132-06 #### [facility] CLIA [id number] [address] [place] MCV (RBC) [Entitic vol] 90.7 fL Normal 80.0-100.0 [facility] Comment on above: Order Comment: Speci men Type: BLOOD SPECIMEN Ordering Facility: [facility] Address: [address] [place] [address] Performed By: #### 2 4323-8 #### [facility] CLIA [id number] [address] [place] [address] [place] #### 07913-8 #### [facility] CLIA [id number] [address] [place] [address] [place] [facility] CLIA [id number] [address] [place] [address] [place] #### 3016-3, 2132-06 #### [facility] CLIA [id number] [address] [place] Monocytes (Bld) [#/Vol] 0.29 10*3/uL Normal <0.87 [facility] Comment on above: Order Comment: Speci men Type: BLOOD SPECIMEN Ordering Facility: [facility] Address: [address] [place] [address] Performed By: #### 2 4323-8 #### [facility] CLIA [id number] [address] [place] [address] [place] #### 80330-2 #### [facility] CLIA [id number] [address] STATES OF [facility] CLIA [id number] [address] [place] [address] [place] #### 3016-3, 2132-06 #### [facility] CLIA [id number] [address] [place] Monocytes/100 WBC (Bld) 7.2 % Normal [facility] Comment on above: Order Comment: Speci men Type: BLOOD SPECIMEN Ordering Facility: [facility] Address: [address] [place] [address] Performed By: #### 2 4323-8 #### [facility] CLIA [id number] [address] [place] [address] [place] #### 04833-3 #### [facility] CLIA [id number] [address] [place] [facility] CLIA [id number] [address] [place] [address] [place] #### 3016-3, 2132-06 #### [facility] CLIA [id number] [address] [place] [address] [place] Neutrophils (Bld) [#/Vol] 2.05 10*3/uL Normal 1.45-7.50 [facility] Comment on above: Order Comment: Speci men Type: BLOOD SPECIMEN Ordering Facility: [facility] Address: [address] [place] [address] Performed By: #### 2 4323-8 #### [facility] CLIA [id number] [address] [place] [address] [place] #### 95534-1 #### [facility] CLIA [id number] [address] STATES OF [facility] CLIA [id number] [address] [place] [address] [place] #### 3016-3, 2132-06 #### [facility] CLIA [id number] [address] [place] Neutrophils/100 WBC (Bld) 51.2 % Normal [facility] Comment on above: Order Comment: Speci men Type: BLOOD SPECIMEN Ordering Facility: [facility] Address: [address] [place] [address] Performed By: #### 2 4323-8 #### [facility] CLIA [id number] [address] [place] [address] [place] #### 93449-4 #### [facility] CLIA [id number] [address] [place] [facility] CLIA [id number] [address] [place] [address] [place] #### 3016-3, 2132-06 #### [facility] CLIA [id number] 1 [place] [address] [place] Nucleated RBC (Bld) [#/Vol] 10*3/uL Normal <0.01 [facility] Comment on above: Order Comment: Speci men Type: BLOOD SPECIMEN Ordering Facility: [facility] Address: [address] [place] [address] Performed By: #### 2 4323-8 #### [facility] CLIA [id number] [address] [place] [address] [place] #### 33963-4 #### [facility] CLIA [id number] 1 [place] [address] [place] [facility] CLIA [id number] [address] [place] [address] [place] #### 3016-3, 2132-06 #### [facility] CLIA [id number] [address] [place] Nucleated RBC/100 WBC (Bld) [Ratio] 0.0 /100 WBC Normal [facility] Comment on above: Order Comment: Speci men Type: BLOOD SPECIMEN Ordering Facility: [facility] Address: [address] [place] [address] Performed By: #### 2 4323-8 #### [facility] CLIA [id number] [address] [place] [address] [place] #### 46437-0 #### [facility] CLIA [id number] [address] [place] [address] [place] [facility] CLIA [id number] [address] [place] [address] [place] #### 3016-3, 2132-06 #### [facility] CLIA [id number] 1 [place] [address] [place] Platelet mean volume (Bld) [Entitic vol] 9.9 fL Normal 9.0-12.7 [facility] Comment on above: Order Comment: Speci men Type: BLOOD SPECIMEN Ordering Facility: [facility] Address: [address] [place] [address] Performed By: #### 2 4323-8 #### [facility] CLIA [id number] [address] [place] [address] [place] #### 66330-5 #### [facility] CLIA [id number] [address] CLIA [id number] [address] [place] [address] [place] #### 3016-3, 2132-06 #### [facility] CLIA [id number] [address] STATES OF [facility] Platelets (Bld) [#/Vol] 213 10*3/uL Normal 150-400 [facility] Comment on above: Order Comment: Speci men Type: BLOOD SPECIMEN Ordering Facility: [facility] Address: [address] [place] [address] Performed By: #### 2 4323-8 #### [facility] CLIA [id number] [address] [place] [address] [place] #### 94005-5 #### [facility] CLIA [id number] [address] OF [facility] CLIA [id number] [address] [place] [address] [place] #### 3016-3, 2132-06 #### [facility] CLIA [id number] [address] [place] [address] [place] RBC (Bld) [#/Vol] 3.67 10*6/uL Low 3.90-5.20 [facility] Comment on above: Order Comment: Speci men Type: BLOOD SPECIMEN Ordering Facility: [facility] Address: [address] [place] [address] Performed By: #### 2 4323-8 #### [facility] CLIA [id number] 1 [place] [address] [place] #### 11235-5 #### [facility] CLIA [id number] [address] [place] [address] [place] [facility] CLIA [id number] [address] [place] [address] [place] #### 3016-3, 2132-06 #### [facility] CLIA [id number] [address] [place] [address] [place] WBC (Bld) [#/Vol] 4.01 10*3/uL Normal 3.70-11.00 [facility] Comment on above: Order Comment: Speci men Type: BLOOD SPECIMEN Ordering Facility: [facility] Address: [address] [place] [address] Performed By: #### 2 4323-8 #### [facility] CLIA [id number] [address] [place] [address] [place] #### 84047-3 #### [facility] CLIA [id number] [address] [place] [address] [place] [facility] CLIA [id number] [address] [place] [address] [place] #### 3016-3, 2132-06 #### [facility] CLIA [id number] [address] [place] [address] [place] MR Brain WO and W contrast I Von 06-17-2025 IMPRESSION: Stable lateral left frontal convexity meningioma with mild local mass effect and adjacent brain parenchymal signal changes. Pot Fluxer: PSCB Transcribe Date/Time: Jun 17 2025 11:25A Dictated by : AYESHA FIGUEROA MD This examination was interpreted and the report reviewed and electronically signed by: AYESHA FIGUEROA MD on Jun 17 2025 11:38AM [facility] DIVISION OF RADIOLOGY * * *Final Report* * * DATE OF EXAM: Jun 17 2025 10:29AM [facility] 0295 - MRI BRAIN WO/W IVCON / PROCEDURE REASON: Meningioma (HCC) * * * * Physician Interpretation * * * * EXAMINATION: MRI BRAIN WO/W IVCON Clinical history: As provided by the ordering clinician via order question entries: Primary neoplasm/metastasis/po stop F/U. Meningioma. TECHNIQUE: Intracranial mass brain MRI protocol without and with contrast including diffusion. MQ: MRBWOW_2 Contrast: 6 mL Elucirem IV Comparison: 07/14/[address] and 06/16/2024 brain MRI without and with contrast RESULT: Acute Change: No abnormal restricted diffusion to suggest an acute infarct. Hemorrhage: Unchanged small clustered foci susceptibility along the posterior right temporal subcortical white matter (series 9, image 31) suggesting small foci of remote microhemorrhage. Mass Lesion/ Mass Effect: Unchanged extra-axial dural based 3.1 x 1.4 x 2.8 cm (anteroposterior, oblique transverse, oblique craniocaudal) T2 slightly heterogenous, patella isointense, FLAIR isointense, T1 slightly hypointense, avidly, although somewhat heterogenously enhancing mass without restricted diffusion along the lateral left orbital frontal convexity with mild local mass effect on the adjacent left inferior frontal and orbital frontal gyri and mild associated confluent T2/FLAIR signal hyperintensity in the adjacent left frontal white matter. Minimal local mass effect. No midline shift. Chronic Change: Scattered patchy areas of T2/FLAIR hyperintensity in the supratentorial white matter, nonspecific, but likely representing mild chronic microvascular ischemic change. Parenchyma: No significant volume loss for age. The brain parenchyma is otherwise within normal limits of signal intensity and morphology. Ventricles: Ventricular calibers are commensurate with the parenchymal volume and normal in configuration. Skull Base: Hypothalamic and pituitary region are grossly normal. Craniocervical junction is normal. No significant marrow replacement process. Vasculature: Major intracranial arterial structures, and dural venous sinuses show typical flow void, suggesting patency by spin echo criteria. Incidental small developmental venous anomaly along the right middle frontal gyrus, right parietal operculum, and large developmental venous anomaly along involving the right orbitofrontal gyrus. Other: Trace mucosal thickening in the anterior ethmoid air cells. Tiny mucous retention cyst along the inferior margin of the right maxillary sinus. The paranasal sinuses are otherwise clear. Small focus of presumed fluid along the inferomedial right mastoid air cells, but otherwise clear mastoid air cells and middle ear cavities. The orbits are unremarkable. The extracranial soft tissues are within normal limits. DIVISION OF RADIOLOGY Provider, Maria Esther Jameson - 06/17/2025 * * *Final Report* * * DATE OF EXAM: Jun 17 2025 10:29AM [facility] 0295 - MRI BRAIN WO/W IVCON / PROCEDURE REASON: Meningioma (HCC) * * * * Physician Interpretation * * * * EXAMINATION: MRI BRAIN WO/W IVCON Clinical history: As provided by the ordering clinician via order question entries: Primary neoplasm/metastasis/po stop F/U. Meningioma. TECHNIQUE: Intracranial mass brain MRI protocol without and with contrast including diffusion. MQ: MRBWOW_2 Contrast: 6 mL Elucirem IV Comparison: 07/14/[address] and 06/16/2024 brain MRI without and with contrast RESULT: Acute Change: No abnormal restricted diffusion to suggest an acute infarct. Hemorrhage: Unchanged small clustered foci susceptibility along the posterior right temporal subcortical white matter (series 9, image 31) suggesting small foci of remote microhemorrhage. Mass Lesion/ Mass Effect: Unchanged extra-axial dural based 3.1 x 1.4 x 2.8 cm (anteroposterior, oblique transverse, oblique craniocaudal) T2 slightly heterogenous, patella isointense, FLAIR isointense, T1 slightly hypointense, avidly, although somewhat heterogenously enhancing mass without restricted diffusion along the lateral left orbital frontal convexity with mild local mass effect on the adjacent left inferior frontal and orbital frontal gyri and mild associated confluent T2/FLAIR signal hyperintensity in the adjacent left frontal white matter. Minimal local mass effect. No midline shift. Chronic Change: Scattered patchy areas of T2/FLAIR hyperintensity in the supratentorial white matter, nonspecific, but likely representing mild chronic microvascular ischemic change. Parenchyma: No significant volume loss for age. The brain parenchyma is otherwise within normal limits of signal intensity and morphology. Ventricles: Ventricular calibers are commensurate with the parenchymal volume and normal in configuration. Skull Base: Hypothalamic and pituitary region are grossly normal. Craniocervical junction is normal. No significant marrow replacement process. Vasculature: Major intracranial arterial structures, and dural venous sinuses show typical flow void, suggesting patency by spin echo criteria. Incidental small developmental venous anomaly along the right middle frontal gyrus, right parietal operculum, and large developmental venous anomaly along involving the right orbitofrontal gyrus. Other: Trace mucosal thickening in the anterior ethmoid air cells. Tiny mucous retention cyst along the inferior margin of the right maxillary sinus. The paranasal sinuses are otherwise clear. Small focus of presumed fluid along the inferomedial right mastoid air cells, but otherwise clear mastoid air cells and middle ear cavities. The orbits are unremarkable. The extracranial soft tissues are within normal limits. IMPRESSION IMPRESSION: Stable lateral left frontal convexity meningioma with mild local mass effect and adjacent brain parenchymal signal changes. Pot Fluxer: [facility] Transcribe Date/Time: Jun 17 2025 11:25A Dictated by : AYESHA FIGUEROA MD This examination was interpreted and the report reviewed and electronically signed by: AYESHA FIGUEROA MD on Jun 17 2025 11:38AM EST [facility] Radiology Study observation (narrative) [facility] MR Brain WO and W contrast I VOrdered By: [facility] Provider on 06-17-2025 [facility] MRI BRAIN WO/W IVCONon 06-17 MRI BRAIN WO/W IVCON * * *Final Report* * * DATE OF EXAM: Jun 17 2025 10:29AM [facility] 0295 - MRI BRAIN WO/W IVCON / PROCEDURE REASON: Meningioma (HCC) * * * * Physician Interpretation * * * * EXAMINATION: MRI BRAIN WO/W IVCON Clinical history: As provided by the ordering clinician via order question entries: Primary neoplasm/metastasis/po stop F/U. Meningioma. TECHNIQUE: Intracranial mass brain MRI protocol without and with contrast including diffusion. MQ: MRBWOW_2 Contrast: 6 mL Elucirem IV Comparison: 07/14/[address] and 06/16/2024 brain MRI without and with contrast RESULT: Acute Change: No abnormal restricted diffusion to suggest an acute infarct. Hemorrhage: Unchanged small clustered foci susceptibility along the posterior right temporal subcortical white matter (series 9, image 31) suggesting small foci of remote microhemorrhage. Mass Lesion/ Mass Effect: Unchanged extra-axial dural based 3.1 x 1.4 x 2.8 cm (anteroposterior, oblique transverse, oblique craniocaudal) T2 slightly heterogenous, patella isointense, FLAIR isointense, T1 slightly hypointense, avidly, although somewhat heterogenously enhancing mass without restricted diffusion along the lateral left orbital frontal convexity with mild local mass effect on the adjacent left inferior frontal and orbital frontal gyri and mild associated confluent T2/FLAIR signal hyperintensity in the adjacent left frontal white matter. Minimal local mass effect. No midline shift. Chronic Change: Scattered patchy areas of T2/FLAIR hyperintensity in the supratentorial white matter, nonspecific, but likely representing mild chronic microvascular ischemic change. Parenchyma: No significant volume loss for age. The brain parenchyma is otherwise within normal limits of signal intensity and morphology. Ventricles: Ventricular calibers are commensurate with the parenchymal volume and normal in configuration. Skull Base: Hypothalamic and pituitary region are grossly normal. Craniocervical junction is normal. No significant marrow replacement process. Vasculature: Major intracranial arterial structures, and dural venous sinuses show typical flow void, suggesting patency by spin echo criteria. Incidental small developmental venous anomaly along the right middle frontal gyrus, right parietal operculum, and large developmental venous anomaly along involving the right orbitofrontal gyrus. Other: Trace mucosal thickening in the anterior ethmoid air cells. Tiny mucous retention cyst along the inferior margin of the right maxillary sinus. The paranasal sinuses are otherwise clear. Small focus of presumed fluid along the inferomedial right mastoid air cells, but otherwise clear mastoid air cells and middle ear cavities. The orbits are unremarkable. The extracranial soft tissues are within normal limits. IMPRESSION: Stable lateral left frontal convexity meningioma with mild local mass effect and adjacent brain parenchymal signal changes. Pot Fluxer: [facility] Transcribe Date/Time: Jun 17 2025 11:25A Dictated by : AYESHA FIGUEROA MD This examination was interpreted and the report reviewed and electronically signed by: AYESHA FIGUEROA MD on Jun 17 2025 11:38AM EST [id number] Normal [facility] CNOVon 06-04-2025 CNOV Office Visit (WOUCA) LOU OLIVER ([id number]) 1945 F Date Time Provider Department 06/04/25 12:00 PM ISI HARDIN During your visit today, we recorded the following information about you: Temperature Pulse Respiration Blood pressure 99 degrees 79/minute 20/minute 101/62 Weight 57.5 kg Isi Hardin APRN.CNP 06/04/2025 12:09 PM Signed Subjective Lou Oliver is a 80 year old female. HPI Patient presents today for evaluation of burn to the fingers of the right hand which happened about an hour ago. She states that she picked up the wrong end of her curling iron. She presents with superficial blisters to the distal aspect of the 2nd and 3rd finger and base of fifth finger with some small blistering beginning to show. Short are not circumferential. No other erythema or streaking noted. Patient's tetanus shot is within the last 5 years she Review of Systems As above Objective BP 101/62 Pulse 79 Temp 37.2 ?C (99 ?F) Resp 20 Wt 57.5 kg (126 lb 12.2 oz) SpO2 95% BMI 22.46 kg/m? Physical Exam Vitals and nursing note reviewed. Constitutional: General: She is not in acute distress. Appearance: Normal appearance. She is not ill-appearing. HENT: Head: Normocephalic. Pulmonary: Effort: Pulmonary effort is normal. Musculoskeletal: General: Normal range of motion. Skin: General: Skin is warm. Comments: Approximately 1.5 cm diameter superficial short with blisters over the palmar aspect, distal phalanx of the 2nd and 3rd digit and over the proximal phalanx of the fifth digit. Neurological: General: No focal deficit present. Mental Status: She is alert and oriented to person, place, and time. Psychiatric: Mood and Affect: Mood normal. Behavior: Behavior normal. ASSESSMENT/PLAN: 1. Superficial burn of right hand, unspecified site of hand, initial encounter - ICD9: 944.10, ICD10: T23.101A - Patient had noncircumferential short over very limited parts of the right fingers. Patient's tetanus shot was within the last 5 years per patient. Discussed with her the importance of monitoring for any increased redness or swelling along with applying topical antibiotic ointment if it anytime blisters were to open. She is to keep the wound clean and dry until the wound has healed. She will otherwise use Motrin or Tylenol as needed for pain. Isi Hardin APRN.ADRIANNA Allergies As of Date: 06/04/2025 Noted Allergy Reaction SULFA (SULFONAMIDE ANTIBIOTICS) 10/26/2005 4 - Hives Date Reviewed: 06/04/2025 Reviewed by: Isi Hardin APRN.DEALMAKER - Fully Assessed Reason for Visit: Burn [1748] Cmt: Burn on Right hand digits and some of palm, grabbed curling iron to stop it from falling x 45 mins ago Primary Visit Diagnosis:Superficial burn of right hand, unspecified site of hand, initial encounter [T23.101A] Prescriptions as of 06/04/2025 - levothyroxine (SYNTHROID) 75 mcg tablet Take 1 tablet by mouth once daily. Take on empty stomach. For Thyroid - hydrOXYzine HCl (ATARAX) 25 mg tablet Take 1 tablet by mouth three times a day as needed. - carbidopa-levodopa (SINEMET 25-100) 25-100 mg per tablet Take 1 tab at 4AM, 1 tab at 7AM, 2 tabs at 11AM, 1/2 tab at 230pm on exercise days, 2 tabs at 3PM and 2 tabs at 7PM. - sertraline (ZOLOFT) 100 mg tablet Take 1 tablet by mouth once daily. - sertraline (ZOLOFT) 50 mg tablet Take 1 tablet by mouth once daily. Take a total of 150 mgs daily. - mirtazapine (REMERON) 7.5 mg tablet Take 1 tablet by mouth daily at bedtime. - pravastatin (PRAVACHOL) 20 mg tablet Take 1 tablet by mouth daily at bedtime. - carbidopa-levodopa CR (SINEMET CR) 50-200 mg per tablet TAKE 1 TABLET BY MOUTH in Morning and before bedtime as instructed. - midodrine (PROAMATINE) 10 mg tablet Take 1 tablet by mouth every 8 hours. - ondansetron orally disintegrating (ZOFRAN ODT) 4 mg disintegrating tablet Take 1 tablet by mouth every 8 hours as needed for nausea/vomiting. - pantoprazole DR (PROTONIX) 40 mg tablet Take 1 tablet by mouth once daily. On empty stomach at least 30 minutes before eating. - fludrocortisone (FLORINEF) 0.1 mg tablet Take 1 tablet by mouth once daily. - LORazepam (ATIVAN) 0.5 mg Take 0.5 mg by mouth as needed. - Cholecalciferol, Vitamin D3, 50 mcg (2,000 unit) cap Take 2,000 Units by mouth once daily. Problem List As Of Date 06/04/2025 Noted Resolved Essential hypertension, benign [I10] 04/04/2007 Hypothyroidism [E03.9] 04/04/2007 COMMON MIGRAINE [346.1] 04/04/2007 EVAN (generalized anxiety disorder) [F41.1] 04/04/2007 Mixed hyperlipidemia [E78.2] 10/26/2009 Pes anserinus bursitis of left knee [M70.52] 10/29/2013 Left knee pain [M25.562] 10/29/2013 Cervical spondylosis without myelopathy [M47.81*05/18/2020 Parkinson disease (HCC) [G20.A1] 07/18/2020 Spinal stenosis of cervical region [M48.02] 07/18/2020 Intracra (more content not included)... Normal [facility] LOU OLIVER ([id number]) 1945 F Date Time Provider Department 05/05/25 SAYRA MABRY NREUS2 During your visit today, we recorded the following information about you: Alona Mcneal 05/05/2025 3:58 PM Signed Pt phoned to discuss recent changes in medication. She reports that she continues to have 2 times during the day with off-times and feels that this is increasing. [phone] Jamila Woods, TUYET 05/10/2025 3:56 PM Signed Changes to Sinemet made at last OV have been beneficial until last week. Wear off symptoms are muscle tension, feeling foggy, slower walking and talking. These symptoms improve after taking Sinemet. Has noticed she is less tolerant of heat and humidity. Has central air cooling and limits time spent outdoors. Did spend more time outdoors this past week. Gardening, pulling weeds, and planting. Did not eat as much, and fluid intake was not as good. Noticed an increase in wear off, and constipation on days with less fluid intake Fluid intake today around 24 ounces so far Yesterday about 72 ounces total Has been monitoring BP at least once a day 05/03/25 morning 130/70 This morning 115/55 Initially she reported taking midodrine more regularly over the past 2 weeks, but later stated for at least 6 months. Does not always check BP prior to taking. Yesterday took 5mg midodrine at: 0700 - BP was not checked 1100 - BP was not checked 1315 88/47, at this time she had generalized not feeling well Sinemet IR 0400 1 tablet if she is awake, does not set an alarm 0700 1 tablet 1100 2 tablets 1500 2 tablets 1900 2 tablets Sinemet CR 0700 1 tablet 2300 1 tablet No recent changes to medications Increased urgency Increased stress incontinence Does not always feel bladder empties. At least once daily passes urine twice when urinating. Urine is more concentrated when fluid intake is reduced Skipped exercise class today due to having company. Feeling pretty good off time was about 30 minutes before getting out of bed for the day. She did take her 0400 dose closer to 0300. Had a good visit with friends, felt well through visit. Feeling good during triage this is a good time. Yesterday did paperwork and worked outside. She reports stayed out too long doing yard work/gardening for about an hour. Came in around 1500. [place] better 45 minutes after taking Sinemet. Recommended checking BP prior to taking Midodrine. Reviewed indications for taking. Discussed taking breaks while working outdoors especially when temperatures and humidity are high and avoiding peak sun hours. Encouraged good fluid intake. Patient was forgetful during triage, accidentally terminated call twice, misplaced medication bottle a few times, scattered thoughts and unable to recall recent events. I did reach out to both daughters to see if either had noticed any recent changes. I was not able to reach either. I recommended she reach out to PCP to have urine checked to rule out infection Sayra Mabry MD 05/10/2025 6:03 PM Signed Sudden change argues for acute medical problem exacerbating neuro symptoms or low BP. Continue copious fluids, midodrine as prescribed Jamila Woods RN 05/11/2025 11:35 AM Signed Message from provider given Allergies As of Date: 05/05/2025 Noted Allergy Reaction SULFA (SULFONAMIDE ANTIBIOTICS) 10/26/2005 4 - Hives Date Reviewed: 04/12/2025 Reviewed by: Juan Carlos Ordoñez MD - Fully Assessed Reason for Visit: Medication Question [4908] Prescriptions as of 05/11/2025 - hydrOXYzine HCl (ATARAX) 25 mg tablet Take 1 tablet by mouth three times a day as needed. - carbidopa-levodopa (SINEMET 25-100) 25-100 mg per tablet Take 1 tab at 4AM, 1 tab at 7AM, 2 tabs at 11AM, 1/2 tab at 230pm on exercise days, 2 tabs at 3PM and 2 tabs at 7PM. - sertraline (ZOLOFT) 100 mg tablet Take 1 tablet by mouth once daily. - sertraline (ZOLOFT) 50 mg tablet Take 1 tablet by mouth once daily. Take a total of 150 mgs daily. - mirtazapine (REMERON) 7.5 mg tablet Take 1 tablet by mouth daily at bedtime. - pravastatin (PRAVACHOL) 20 mg tablet Take 1 tablet by mouth daily at bedtime. - carbidopa-levodopa CR (SINEMET CR) 50-200 mg per tablet TAKE 1 TABLET BY MOUTH in Morning and before bedtime as instructed. - midodrine (PROAMATINE) 10 mg tablet Take 1 tablet by mouth every 8 hours. - ondansetron orally disintegrating (ZOFRAN ODT) 4 mg disintegrating tablet Take 1 tablet by mouth every 8 hours as needed for nausea/vomiting. - pantoprazole DR (PROTONIX) 40 mg tablet Take 1 tablet by mouth once daily. On empty stomach at least 30 minutes before eating. - fludrocortisone (FLORINEF) 0.1 mg tablet Take 1 tablet by mouth once daily. - levothyroxine (SYNTHROID) 75 mcg tablet Take 1 tablet by mouth once daily. Take on empty stomach. For Thyroid (more content not included)... Normal [facility] CBC panel Auto (Bld)on 04-06 Erythrocyte distribution width (RBC) [Ratio] 12.8 % Normal 11.5-15.0 [facility] Comment on above: Order Comment: Speci men Type: BLOOD SPECIMEN Ordering Facility: [facility] Address: [address] [place] [address] Performed By: #### 5 8410-2 #### [facility] CLIA [id number] [address] [place] [address] [place] Hematocrit (Bld) [Volume fraction] 34.9 % Low 36.0-46.0 [facility] Comment on above: Order Comment: Speci men Type: BLOOD SPECIMEN Ordering Facility: [facility] Address: [address] [place] [address] Performed By: #### 5 8410-2 #### [facility] CLIA [id number] [address] [place] [address] [place] Hemoglobin (Bld) [Mass/Vol] 11.4 g/dL Low 11.5-15.5 [facility] Comment on above: Order Comment: Speci men Type: BLOOD SPECIMEN Ordering Facility: [facility] Address: [address] [place] [address] Performed By: #### 5 8410-2 #### [facility] CLIA [id number] [address] [place] [address] [place] MCH (RBC) [Entitic mass] 29.5 pg Normal 26.0-34.0 [facility] Comment on above: Order Comment: Speci men Type: BLOOD SPECIMEN Ordering Facility: [facility] Address: [address] [place] [address] Performed By: #### 5 8410-2 #### [facility] CLIA [id number] [address] [place] [address] [place] MCHC (RBC) [Mass/Vol] 32.7 g/dL Normal 30.5-36.0 [facility] Comment on above: Order Comment: Speci men Type: BLOOD SPECIMEN Ordering Facility: [facility] Address: [address] [place] [address] Performed By: #### 5 8410-2 #### [facility] CLIA [id number] [address] [place] [address] [place] MCV (RBC) [Entitic vol] 90.4 fL Normal 80.0-100.0 [facility] Comment on above: Order Comment: Speci men Type: BLOOD SPECIMEN Ordering Facility: [facility] Address: [address] [place] [address] Performed By: #### 5 8410-2 #### [facility] CLIA [id number] [address] [place] [address] [place] Nucleated RBC (Bld) [#/Vol] 10*3/uL Normal <0.01 [facility] Comment on above: Order Comment: Speci men Type: BLOOD SPECIMEN Ordering Facility: [facility] Address: [address] [place] [address] Performed By: #### 5 8410-2 #### [facility] CLIA [id number] [address] [place] [address] [place] Platelet mean volume (Bld) [Entitic vol] 10.1 fL Normal 9.0-12.7 [facility] Comment on above: Order Comment: Speci men Type: BLOOD SPECIMEN Ordering Facility: [facility] Address: [address] [place] [address] Performed By: #### 5 8410-2 #### [facility] CLIA [id number] [address] [place] [address] [place] Platelets (Bld) [#/Vol] 206 10*3/uL Normal 150-400 [facility] Comment on above: Order Comment: Speci men Type: BLOOD SPECIMEN Ordering Facility: [facility] Address: [address] [place] [address] Performed By: #### 5 8410-2 #### [facility] CLIA [id number] [address] [place] [address] [place] RBC (Bld) [#/Vol] 3.86 10*6/uL Low 3.90-5.20 [facility] Comment on above: Order Comment: Speci men Type: BLOOD SPECIMEN Ordering Facility: [facility] Address: [address] [place] [address] Performed By: #### 5 8410-2 #### [facility] CLIA [id number] [address] [place] [address] [place] WBC (Bld) [#/Vol] 4.07 10*3/uL Normal 3.70-11.00 [facility] Comment on above: Order Comment: Speci men Type: BLOOD SPECIMEN Ordering Facility: [facility] Address: [address] [place] [address] Performed By: #### 5 8410-2 #### [facility] CLIA [id number] [address] [place] [address] [place] CNOVon 04-06-2025 CNOV Office Visit (INTMWS ) LOU OLIVER ([id number]) 1945 F Date Time Provider Department 04/06/25 10:40 AM LUCÍA RIZZO INTMWS During your visit today, we recorded the following information about you: Pulse Respiration Blood pressure Weight 71/minute 16/minute 106/66 57.9 kg Lucía Rizzo MD 04/06/2025 3:12 PM Signed Reason for Visit Follow up HPI Lou Aguayo Melody is a 79-year-old female with a history of Parkinson's disease, hypotension, hypercholesterolemia, and depression, presenting for follow-up. Lou was seen by Dr. Manning approximately one month ago and was advised to add mirtazapine at night, continue Zoloft and Sinemet at the same doses, and increase fluid intake to 40-60 ounces of water and Gatorade daily to manage hypotension. She was also prescribed midodrine to be taken if her blood pressure falls below 110 mmHg. She reports that her blood pressure was stable for a few weeks but has recently started to decrease again, with a current reading of 106 mmHg. She is unsure of the cause but notes that she is drinking approximately 40-48 ounces of fluids daily, including water, juice, and occasional milk. She admits to not eating enough but reports improvement in stomach aches and a resolution of daily nausea. She denies feeling excessively tired or weak but notes a decrease in energy levels. She reports significant improvement in sleep quality since starting mirtazapine and denies daytime grogginess. She has limited her driving to short distances within [place]. She also reports a reduction in depressive symptoms. She reports persistent neck pain, which she believes is related to tension and the timing of her medication. She has tried physical therapy in the past but felt it aggravated her neck pain. She is currently taking five exercise classes per week and is participating in a balance class. She has been using a cane more frequently due to balance issues but reports that it helps her mobility. She has a supportive social network, including a friend named Guillermo who assists her with transportation and attends classes with her, as well as a large family and daughters who provide support. She also reports improvement in cholesterol levels since her last visit. Social History Tobacco Use Smoking status: Never Smokeless tobacco: Never Tobacco comments: Father smoked in childhood home. 2 spouses were smokers. Vaping Use Vaping status: Never Used Substance Use Topics Alcohol use: No Drug use: No Past medical history, appointments, medications, allergies reviewed. Pertinent Lab/Diagnostic Studies are reviewed and discussed today Current Outpatient Medications: carbidopa-levodopa (SINEMET 25-100) 25-100 mg per tablet sertraline (ZOLOFT) 100 mg tablet sertraline (ZOLOFT) 50 mg tablet hydrOXYzine HCl (ATARAX) 25 mg tablet mirtazapine (REMERON) 7.5 mg tablet pravastatin (PRAVACHOL) 20 mg tablet carbidopa-levodopa CR (SINEMET CR) 50-200 mg per tablet midodrine (PROAMATINE) 10 mg tablet ondansetron orally disintegrating (ZOFRAN ODT) 4 mg [address]integrating tablet pantoprazole DR (PROTONIX) 40 mg tablet fludrocortisone (FLORINEF) 0.1 mg tablet levothyroxine (SYNTHROID) 75 mcg tablet LORazepam (ATIVAN) 0.5 mg Cholecalciferol, Vitamin D3, 50 mcg (2,000 unit) cap Health Maintenance Medicare Annual Wellness Visit Shingrix Vaccine(2 of 3) RSV Vaccine(1 - 1-dose 75+ series) Covid-19 Vaccine(2023- season) Advance Directive Discussion@ Review Of Systems Constitutional: (-) daytime grogginess, (-) insomnia Neck: (+) neck pain Gastrointestinal: (-) nausea Physical Exam BP 106/66 Pulse 71 Resp 16 Wt 57.9 kg (127 lb 9.6 oz) SpO2 98% BMI 22.60 kg/m? GENERAL: NAD, alert and oriented. SKIN: Unremarkable, no rash or skin lesions. HEAD: Normocephalic. EYES: PERRLA, EOMI, conjunctiva clear NECK: Supple, no lymphadenopathy, normal thyroid, no carotid bruits. LUNGS: Clear to auscultation bilaterally, no wheezes/rhonchi/rales. HEART: Regular rate and rhythm, no murmurs. No ectopy. EXTREMITIES: Normal, no deformities, no skin discoloration, no edema. NEURO: Awake, alert and oriented x3, cranial nerves II-XII grossly intact, normal gait, no involuntary motions. Labs: - Cholesterol test: Markedly improved, no caution indicated Assessment and Plan 1. Orthostatic hypotension (I95.1) Blood pressure readings have been low, with a recent measurement of 106 mmHg. Patient is managing with increased fluid intake and Midodrine as needed when BP falls below 110 mmHg. - Continue monitoring blood pressure daily, particularly in the morning. - Continue Midodrine as needed when BP is below 110 mmHg. - Maintain hydration with 40-60 ounces of water and Gatorade daily. 2. Acute pain of left knee (M25.562) 3. Essential hypertension, benign (I10) (more content not included)... Normal [facility] CNOVon 03-11-2025 CNOV Office Visit (NRMDN) LOU OLIVER ([id number]) 1945 F Date Time Provider Department 03/11/25 9:30 AM SAYRA MABRY During your visit today, we recorded the following information about you: Blood pressure 88/52 Sayra Mabry MD 03/12/2025 4:30 PM Signed [facility] - FOLLOW UP EVALUATION Recording using [employer] Log[employer] software for draft documentation of the visit was discussed with the patient/authorized auto service representative; all questions welcomed and answered. Patient/authorized auto service representative agreed to proceed Lucía Rizzo MD [address] [facility] [address] Dear Lucía Rizzo MD: I had the pleasure of seeing Ms. Oliver for follow-up today. As you know she is a 79 year old left-handed female with a history of PD since 2019. Subjective Previous Plan- 11/05/2024 Visit: No change to Sinemet (carbidopa-levodopa) For the blood pressure, strive for 40-60 ounces of water per day. Gatorade is helpful too. No change to midodrine or fludrocortisone Continue with Zoloft, no change to it Add mirtazapine at bedtime for anxiety, sleep, and appetite Consults to psychiatry and psychology Appointment scheduling: Psychology: [phone], choose option 2: Psychiatry: General NI scheduling (operates 24 hrs) [phone] option 3 Interval History: Lou is a 79-year-old female with a history of Parkinson's disease presenting for follow-up. She is accompanied by her daughter, who provides additional history. Lou reports improvement in nausea, which was previously constant. She attributes this improvement to better management of anxiety and notes a weight gain of 15 pounds. Her appetite has also improved. She is currently taking mirtazapine, which she believes has contributed to better sleep and reduced anxiety. She reports that her off periods are becoming longer. During off periods, she experiences significant slowing of movement, sometimes to the point where she feels she almost can't walk. These episodes have been witnessed by her daughters and are described as freezing episodes. She believes these periods correlate with her medication dosing, with doses lasting approximately 2.5 to 3 hours. The 4:00 PM and 7:00 PM doses are particularly challenging, with medication effects wearing off before the next dose is due. She experiences cognitive fog during these times, which clears when the medication takes effect. Her medication seems most likely to wear off right after her Parkinson's exercise classes. Getting home from them can be very challenging. She reports dyskinetic movements, which are more pronounced when she is anxious or not engaged in an activity. These movements are sometimes bothersome, depending on the situation. Her blood pressure has been stable, with readings around 110 mmHg systolic. She is taking fludrocortisone daily but has not been using midodrine. She monitors her blood pressure regularly and has not experienced significant lightheadedness. She practices qbv-pn-stiel exercises without dizziness. She has been advised to only take it if ABP<110. Her current medication schedule includes Sinemet at 4:00 AM, 7:30 AM, 11:30 AM, 3:30 PM, 7:30 PM, and 11:00-11:15 PM. She takes her doses with a small amount of food and has been using applesauce to help swallow her pills. This seems to work better than pudding. She reports better luck drinking liquids with a straw. She participates in exercise classes, which she enjoys but notes that the classes can be intense and sometimes exacerbate her symptoms. She has been working outside more, increasing her physical activity. She is driving less due to tremors and concerns about safety during off periods. Her daughter notes that Lou is very schedule-oriented and manages her symptoms better when she maintains her routine. She also mentions that Lou has been more conscientious about drinking and eating regularly. Movement Disorders Medications Schedule - as of the start of the visit: Medications 7 11 3 7 11 4A Sinemet IR 25/100 (yellow) 1 2 2 1.5 1 Sinemet CR 50/200 (blue) 1 1 fludrocortisone midodrine as needed mirtazepine 7.5 mg 1 zoloft Parkinson's Motor Complications Medication duration: 2.8 hours Wearing off: yes Dyskinesia: yes Prior Anti-Parkinson Therapies Carbidopa/Levodopa Carbidopa/Levodopa CR Questionnaires: In addition, the following areas that may be affected by abnormal involuntary movements were evaluated: Daily activities Difficulties with eating: Yes (slight) Difficulties in dressing: Yes (mild) Difficulties with hygiene activities: Yes (mild) Difficulties with handwriting: Yes (mild) Difficulties with doing hobbies and other activities: Yes (mild) Difficulties turning in bed: Yes (slight) Difficulties getting out of bed, car or chair: Yes (m (more content not included)... Normal [facility] Bacteria Ur Culton 5 Bacteria identified Cx Nom (U) CULTURE, URINE: Mixed microbiota: ORGANISM ID: 1 10,000 -<50,000 CFU/ml Staphylococcus aureus Insignificant colony count. No further workup. ORGANISM ID: 2 10,000 -<50,000 CFU/ml Streptococcus anginosus Insignificant colony count. No further workup. Normal [facility] Comment on above: Performed By: #### 2 4323-8 #### [facility] CLIA [id number] [address] [place] [address] [place] #### 47094-6 #### [facility] CLIA [id number] [address] CLIA [id number] [address] [place] [address] [place] #### 3016-3, 2132-9 #### [facility] CLIA [id number] [address] CNOVon 02-14-2025 CNOV Office Visit (UCWSTR ) LOU OLIVER ([id number]) 1945 F Date Time Provider Department 02/14/25 1:45 PM OC ROSE UCWSTR During your visit today, we recorded the following information about you: Temperature Pulse Respiration Blood pressure 97.5 degrees 72/minute 16/minute 90/60 Weight 57.3 kg Oc Rose APRN.DEALMAKER 02/14/2025 2:51 PM Signed [facility] Subjective Lou Oliver is a 79 year old female. Patient presents with: Possible UTI d/t change in neurologial SX. Neurologist dahiana Patient was brought in to check her urine. Patient has been having some urgency incontinence at night. Her urologist and primary care's office was contacted throughout the week they both agreed that the urine sample should be checked before any medication is adjusted. Denies any other symptoms. The history is provided by the patient. No video software engineer was used. Review of Systems Constitutional: Negative. HENT: Negative. Objective BP 90/60 Pulse 72 Temp 36.4 ?C (97.5 ?F) (Left Tympanic) Resp 16 Wt 57.3 kg (126 lb 5.2 oz) SpO2 97% BMI 22.38 kg/m? Physical Exam Constitutional: Appearance: Normal appearance. Cardiovascular: Rate and Rhythm: Normal rate and regular rhythm. Heart sounds: Normal heart sounds. Pulmonary: Effort: Pulmonary effort is normal. Breath sounds: Normal breath sounds. Abdominal: Palpations: Abdomen is soft. Tenderness: There is no abdominal tenderness. There is no right CVA tenderness, left CVA tenderness or guarding. Neurological: Mental Status: She is alert. PAST [...] NONOBSTETRIC 09/1982 Dilation AND curettage EGD W/O [facility] SPEC VARICIES INJ 11/29/2023 PAST SURGICAL HISTORY OF 02/1996 EMB TONSILLECTOMY AND ADENOIDECTOMY T/A (under age 12 years) ALLERGIES Sulfa (Sulfonamide Antibiotics) MEDICATIONS sertraline (ZOLOFT) 100 mg tablet Take 1 tablet by mouth once daily. sertraline (ZOLOFT) 50 mg tablet Take 1 tablet by mouth once daily. Take a total of 150 mgs daily. hydrOXYzine HCl (ATARAX) 25 mg tablet Take 1 tablet by mouth three times a day as needed. mirtazapine (REMERON) 7.5 mg tablet Take 1 tablet by mouth daily at bedtime. pravastatin (PRAVACHOL) 20 mg tablet Take 1 tablet by mouth daily at bedtime. carbidopa-levodopa (SINEMET 25-100) 25-100 mg per tablet Take 1 tab at 4AM, 1 tab at 7AM, 2 tabs at 11AM, 2 tabs at 3PM and 1.5 tabs at 7PM. carbidopa-levodopa CR (SINEMET CR) 50-200 mg per tablet TAKE 1 TABLET BY MOUTH in Morning and before bedtime as instructed. midodrine (PROAMATINE) 10 mg tablet Take 1 tablet by mouth every 8 hours. ondansetron orally disintegrating (ZOFRAN ODT) 4 mg disintegrating tablet Take 1 tablet by mouth every 8 hours as needed for nausea/vomiting. pantoprazole DR (PROTONIX) 40 mg tablet Take 1 tablet by mouth once daily. On empty stomach at least 30 minutes before eating. fludrocortisone (FLORINEF) 0.1 mg tablet Take 1 tablet by mouth once daily. levothyroxine (SYNTHROID) 75 mcg tablet Take 1 tablet by mouth once daily. Take on empty stomach. For Thyroid LORazepam (ATIVAN) 0.5 mg Take 0.5 mg by mouth as needed. Cholecalciferol, Vitamin D3, 50 mcg (2,000 unit) cap Take 2,000 Units by mouth once daily. Olopatadine (PATADAY ONCE DAILY RELIEF) 0.2 % drop Use 1 Drop in both eyes once daily. (Patient not taking: Reported on 11/04/2024) FAMILY HISTORY Problem Relation Age of Onset [...] Topics Alcohol use: No Drug use: No {ASSESSMENT/PLAN: 1. Dysuria - ICD9: 788.1, ICD10: R30.0 (primary diagnosis) acute - Send urine for culture - Patient education for prevention given 2. Urgency of urination - ICD9: 788.63, ICD10: R39.15 - UA DIP, URINE (POC) - BACTERIAL CULTURE, URINE At t (more content not included)... Normal [facility] CNOVon 01-04-2025 CNOV Office Visit (INTMWS ) LOU OLIVER ([id number]) 1945 F Date Time Provider Department 01/04/25 9:00 AM LUCÍA RIZZO INTMWS During your visit today, we recorded the following information about you: Pulse Respiration Blood pressure Weight 85/minute 16/minute 113/67 58.4 kg Lucía Rizzo MD 01/04/2025 12:41 PM Signed Reason for Visit Lou is a 79-year-old female with a history of migraines, Parkinson's disease, meningioma, HTN, hyperlipidemia, palpitations, hypothyroidism, and anxiety, presenting for follow-up. HPI Anxiety and Depression: - Significant improvement in mood and anxiety since starting hydroxyzine 25 mg TID. - Previously experienced daily crying and severe depression; now feels more like myself. - Family has noticed improvement in mood. - Also taking sertraline and mirtazapine. - No major memory issues reported, though some difficulty recalling names. Orthostatic Hypotension: - Previously experienced extremely low blood pressures, sometimes as low as 50/50 mmHg. - Started on midodrine, which improved blood pressure readings to 120-130 mmHg. - Currently not taking midodrine as long as blood pressure remains above 110 mmHg. - Still experiences some dizziness when getting up quickly, but less severe than before. Weight Loss: - Previously had poor appetite and weight loss; advised to eat calorie-dense foods. - Has gained back 10 lbs and reports improved appetite. - No longer experiences chronic abdominal pain and nausea that lasted for 4 years. Parkinson's Disease: - Medication schedule adjusted, leading to improved symptom management. - Participates in Parkinson's exercise therapies and physical therapy 5 days a week. - Still able to drive. - Experiences tremors when medication is due. Meningioma: - Currently not causing any problems. Falls: - Has had falls in the past year, including two that required medical attention. - Falls have decreased in frequency with improved dizziness management. Social History Tobacco Use Smoking status: Never Smokeless tobacco: Never Tobacco comments: Father smoked in childhood home. 2 spouses were smokers. Vaping Use Vaping status: Never Used Substance Use Topics Alcohol use: No Drug use: No Past medical history, appointments, medications, allergies reviewed. Pertinent Lab/Diagnostic Studies are reviewed and discussed today @[facility] Health Maintenance Shingrix Vaccine(2 of 3) RSV Vaccine(1 - 1-dose 75+ series) Influenza Vaccine(1) Covid-19 Vaccine( season) Advance Directive Discussion@ Review Of Systems Neurological: (+) dizziness, (+) tremors, (+) mild forgetfulness Psychiatric: (-) depression, (-) anxiety Physical Exam BP 113/67 Pulse 85 Resp 16 Wt 58.4 kg (128 lb 12.8 oz) SpO2 97% BMI 22.82 kg/m? GENERAL: NAD, alert and oriented. SKIN: Unremarkable, no rash or skin lesions. HEAD: Normocephalic. EYES: PERRLA, EOMI, conjunctiva clear. EARS: External ears normal, canals clear, TM's normal. NOSE/SINUSES: Nares normal. Septum midline. OROPHARYNX: Lips, mucosa, and tongue normal, good dentition. No oral lesions noted. NECK: Supple, no lymphadenopathy, normal thyroid, no carotid bruits. LUNGS: Clear to auscultation bilaterally, no wheezes/rhonchi/rales. HEART: Regular rate and rhythm, no murmurs. No ectopy. EXTREMITIES: Normal, no deformities, no skin discoloration, no edema. NEURO: Awake, alert and oriented x3, cranial nerves II-XII grossly intact, normal gait, no involuntary motions. Assessment and Plan 1. Moderate episode of recurrent major depressive disorder (HCC) (F33.1) 2. EVAN (generalized anxiety disorder) (F41.1) - Significant improvement in mood, anxiety, and crying episodes since initiation of hydroxyzine [address] Trevino. - Continues sertraline and mirtazapine; no adverse effects reported. - Discussed anticholinergic effects of hydroxyzine, but benefits currently outweigh risks. - Monitor for any cognitive changes. 3. Meningioma (HCC) (D32.9) - Currently asymptomatic; no recent issues reported. - Continue regular monitoring. 4. Essential hypertension, benign (I10) 5. Orthostatic hypotension (I95.1) - Blood pressure stabilized with midodrine; readings consistently above 110 mmHg systolic. - Midodrine use adjusted based on BP readings; currently holding if BP remains above 110 mmHg. - Mild dizziness on rapid position changes persists; advised to continue wearing compression stockings. - Monitor BP regularly. 6. Parkinson's disease with dyskinesia, unspecified whether manifestations fluctuate (HCC) (G20.B1) - Improved symptom management with adjusted medication timing. - Engaged in Parkinson's exercise therapies and physical activities 5 days a week. - Continue current regimen and follow-up with neurology as scheduled (more content not included)... Normal [facility] Ferritin SerPl-mCncon 2024 Ferritin [Mass/Vol] 134.0 ng/mL Normal 14.7-205.1 [facility] Comment on above: Order Comment: Speci men Type: BLOOD SPECIMEN Ordering Facility: [facility] Address: [address] [place] [address] Performed By: #### 2 4323-8 #### [facility] CLIA [id number] [address] [place] [address] [place] #### 17436-5 #### [facility] CLIA [id number] [address] [place] [address] [place] [facility] CLIA [id number] [address] [place] [address] [place] #### 3016-3, 2132-06 #### [facility] CLIA [id number] [address] [place] [address] [place] Iron and Iron binding capaci ty panelon 01-04-2025 Iron [Mass/Vol] 78 ug/dL Normal 41-186 [facility] Comment on above: Order Comment: Speci men Type: BLOOD SPECIMEN Ordering Facility: [facility] Address: [address] [place], [place] [address] Performed By: #### 2 4323-8 #### [facility] CLIA [id number] [address] [place] [address] [place] #### 09883-8 #### [facility] CLIA [id number] [address] STATES OF [facility] CLIA [id number] [address] [place] [address] [place] #### 3016-3, 2132-06 #### [facility] CLIA [id number] [address] STATES [facility] Iron binding capacity [Mass/Vol] 300 ug/dL Normal 232-386 [facility] Comment on above: Order Comment: Speci men Type: BLOOD SPECIMEN Ordering Facility: [facility] Address: [address] [place], [place] [address] Performed By: #### 2 4323-8 #### [facility] CLIA [id number] [address] [place] [address] [place] #### 88489-7 #### [facility] CLIA [id number] [address] STATES [place] [facility] CLIA [id number] [address] [place] [address] [place] #### 3016-3, 2132-06 #### [facility] CLIA [id number] [address] [place] Iron/TIBC [Molar ratio] 26.0 % Normal 15.0-57.0 [facility] Comment on above: Order Comment: Speci men Type: BLOOD SPECIMEN Ordering Facility: [facility] Address: [address] [place] [address] Performed By: #### 2 4323-8 #### [facility] CLIA [id number] [address] [place] [address] OF [place] #### 64454-9 #### [facility] CLIA [id number] [address] STATES [facility] CLIA [id number] [address] [place] [address] [place] #### 3016-3, 2132-06 #### [facility] CLIA [id number] [address] CBC W Auto Differential pane l (Bld)on 12-24-2024 Basophils (Bld) [#/Vol] 10*3/uL Normal <0.11 [facility] Comment on above: Order Comment: Speci men Type: BLOOD SPECIMEN Ordering Facility: [facility] Address: [address] [place] [address] Performed By: #### 2 4323-8 #### [facility] CLIA [id number] [address] [place] [address] OF [place] #### 17654-3 #### [facility] CLIA [id number] [address] STATES OF [facility] CLIA [id number] [address] [place] [address] OF [place] #### 3016-3, 2132-06 #### [facility] CLIA [id number] [address] STATES [facility] Basophils/100 WBC (Bld) 0.4 % Normal [facility] Comment on above: Order Comment: Speci men Type: BLOOD SPECIMEN Ordering Facility: [facility] Address: [address] [place] [address] Performed By: #### 2 4323-8 #### [facility] CLIA [id number] [address] [place] [address] [place] #### 52963-9 #### [facility] CLIA [id number] [address] OF [facility] CLIA [id number] [address] [place] [address] [place] #### 3016-3, 2132-06 #### [facility] CLIA [id number] [address] STATES [place] Differential cell count method Nom (Bld) Auto Normal [facility] Comment on above: Order Comment: Speci men Type: BLOOD SPECIMEN Ordering Facility: [facility] Address: [address] [place] [address] Performed By: #### 2 4323-8 #### [facility] CLIA [id number] [address] [place] [address] [place] #### 55278-3 #### [facility] CLIA [id number] [address] OF [facility] CLIA [id number] [address] [place] [address] OF [place] #### 3016-3, 2132-06 #### [facility] CLIA [id number] [address] STATES OF [place] Eosinophils (Bld) [#/Vol] 0.17 10*3/uL Normal <0.46 [facility] Comment on above: Order Comment: Speci men Type: BLOOD SPECIMEN Ordering Facility: [facility] Address: [address] [facility] [place] [id number] Performed By: #### 2 4323-8 #### [facility] CLIA [id number] [address] [place] [address] [place] #### 38309-1 #### [facility] CLIA [id number] [address] [place] [address] [place] [facility] CLIA [id number] [address] [place] [address] [place] #### 3016-3, 2132-06 #### [facility] CLIA [id number] [address] [place] [address] [place] Eosinophils/100 WBC (Bld) 3.3 % Normal [facility] Comment on above: Order Comment: Speci men Type: BLOOD SPECIMEN Ordering Facility: [facility] Address: [address] [place] [address] Performed By: #### 2 4323-8 #### [facility] CLIA [id number] [address] [place] [address] [place] #### 11845-6 #### [facility] CLIA [id number] [address] [place] [address] [place] [facility] CLIA [id number] [address] [place] [address] [place] #### 3016-3, 2132-06 #### [facility] CLIA [id number] [address] [place] Erythrocyte distribution width (RBC) [Ratio] 13.0 % Normal 11.5-15.0 [facility] Comment on above: Order Comment: Speci men Type: BLOOD SPECIMEN Ordering Facility: [facility] Address: [address] [place] [address] Performed By: #### 2 4323-8 #### [facility] CLIA [id number] [address] [place] [address] [place] #### 85454-7 #### [facility] CLIA [id number] [address] STATES [place] [facility] CLIA [id number] [address] [place] [address] [place] #### 3016-3, 2132-06 #### [facility] CLIA [id number] [address] [place] [address] [place] Hematocrit (Bld) [Volume fraction] 33.4 % Low 36.0-46.0 [facility] Comment on above: Order Comment: Speci men Type: BLOOD SPECIMEN Ordering Facility: [facility] Address: [address] [place] [address] Performed By: #### 2 4323-8 #### [facility] CLIA [id number] [address] [place] [address] [place] #### 51227-8 #### [facility] CLIA [id number] [address] [place] [address] [place] [facility] CLIA [id number] [address] [place] [address] [place] #### 3016-3, 2132-06 #### [facility] CLIA [id number] [address] [place] Hemoglobin (Bld) [Mass/Vol] 11.0 g/dL Low 11.5-15.5 [facility] Comment on above: Order Comment: Speci men Type: BLOOD SPECIMEN Ordering Facility: [facility] Address: [address] [place] [address] Performed By: #### 2 4323-8 #### [facility] CLIA [id number] [address] [place] [address] [place] #### 87924-1 #### [facility] CLIA [id number] [address] [place] [address] [place] [facility] [id number] [address] [place] [address] [place] #### 3016-3, 2132-06 #### [facility] CLIA [id number] [address] STATES [facility] Immature granulocytes (Bld) [#/Vol] 10*3/uL Normal <0.10 [facility] Comment on above: Order Comment: Speci men Type: BLOOD SPECIMEN Ordering Facility: [facility] Address: [address] [place] [address] Performed By: #### 2 4328 #### [facility] CLIA [id number] [address] [place] [address] [place] #### 05411-7 #### [facility] CLIA [id number] [address] STATES OF [facility] CLIA [id number] [address] [place] [address] [place] #### 3016-3, 2132-06 #### [facility] CLIA [id number] [address] [place] Immature granulocytes/100 WBC (Bld) 0.4 % Normal [facility] Comment on above: Order Comment: Speci men Type: BLOOD SPECIMEN Ordering Facility: [facility] Address: [facility] [place] [address] Performed By: #### 2 4322-8 #### [facility] CLIA [id number] [address] [place] [address] [place] #### 11008-1 #### [facility] CLIA [id number] [address] [place] [facility] CLIA [id number] [address] [place] [address] [place] #### 3016-3, 2132-9 #### [facility] CLIA [id number] [address] [place] Lymphocytes (Bld) [#/Vol] 1.37 10*3/uL Normal 1.00-4.00 [facility] Comment on above: Order Comment: Speci men Type: BLOOD SPECIMEN Ordering Facility: [facility] Address: [address] [place] [address] Performed By: #### 2 4323-8 #### [facility] CLIA [id number] [address] [place] [address] [place] #### 56244-2 #### [facility] CLIA [id number] [address] STATES [facility] CLIA [id number] [address] [place] [address] [place] #### 3016-3, 2132-06 #### [facility] CLIA [id number] [address] [place] Lymphocytes/100 WBC (Bld) 26.3 % Normal [facility] Comment on above: Order Comment: Speci men Type: BLOOD SPECIMEN Ordering Facility: [facility] Address: [address] [place] [address] Performed By: #### 2 4323-8 #### [facility] CLIA [id number] [address] [place] [address] [place] #### 99527-1 #### [facility] CLIA [id number] [address] [place] [facility] CLIA [id number] [address] [place] [address] [place] #### 3016-3, 2132-06 #### [facility] CLIA [id number] [address] [place] MCH (RBC) [Entitic mass] 31.0 pg Normal 26.0-34.0 [facility] Comment on above: Order Comment: Speci men Type: BLOOD SPECIMEN Ordering Facility: [facility] Address: [address] [place] [address] Performed By: #### 2 4323-8 #### [facility] CLIA [id number] [address] [place] [address] [place] #### 88980-4 #### [facility] CLIA [id number] [address] [place] [facility] CLIA [id number] [address] [place] [address] [place] #### 3016-3, 2132-06 #### [facility] CLIA [id number] [address] [place] MCHC (RBC) [Mass/Vol] 32.9 g/dL Normal 30.5-36.0 [facility] Comment on above: Order Comment: Speci men Type: BLOOD SPECIMEN Ordering Facility: [facility] Address: [address] [place] [address] Performed By: #### 2 4323-8 #### [facility] CLIA [id number] [address] [place] [address] [place] #### 98259-0 #### [facility] CLIA [id number] [address] [place] [facility] CLIA [id number] [address] [place] [address] [place] #### 3016-3, 2132-06 #### [facility] CLIA [id number] [address] [place] MCV (RBC) [Entitic vol] 94.1 fL Normal 80.0-100.0 [facility] Comment on above: Order Comment: Speci men Type: BLOOD SPECIMEN Ordering Facility: [facility] Address: [address] [place] [address] Performed By: #### 2 4323-8 #### [facility] CLIA [id number] [address] [place] [address] [place] #### 06970-2 #### [facility] CLIA [id number] [address] OF [facility] CLIA [id number] [address] [place] [address] [place] #### 3016-3, 2132-06 #### [facility] CLIA [id number] [address] [place] Monocytes (Bld) [#/Vol] 0.31 10*3/uL Normal <0.87 [facility] Comment on above: Order Comment: Speci men Type: BLOOD SPECIMEN Ordering Facility: [facility] Address: [address] [place] [address] Performed By: #### 2 4323-8 #### [facility] CLIA [id number] [address] [place] [address] [place] #### 51491-3 #### [facility] CLIA [id number] [address] STATES OF [facility] CLIA [id number] [address] [place] [address] [place] #### 3016-3, 2132-06 #### [facility] CLIA [id number] [address] [place] Monocytes/100 WBC (Bld) 6.0 % Normal [facility] Comment on above: Order Comment: Speci men Type: BLOOD SPECIMEN Ordering Facility: [facility] Address: [address] [place] [address] Performed By: #### 2 4323-8 #### [facility] CLIA [id number] [address] [place] [address] [place] #### 78005-6 #### [facility] CLIA [id number] 1 [place] [address] [place] [facility] CLIA [id number] 1 [place] [address] [place] #### 3016-3, 2132-06 #### [facility] CLIA [id number] 1 [place] [address] [place] Neutrophils (Bld) [#/Vol] 3.31 10*3/uL Normal 1.45-7.50 [facility] Comment on above: Order Comment: Speci men Type: BLOOD SPECIMEN Ordering Facility: [facility] Address: [address] [place] [address] Performed By: #### 2 4323-8 #### [facility] CLIA [id number] [address] [place] [address] [place] #### 91253-9 #### [facility] CLIA [id number] [address] [place] [facility] CLIA [id number] [address] [place] [address] [place] #### 3016-3, 2132-06 #### [facility] CLIA [id number] [address] [place] Neutrophils/100 WBC (Bld) 63.6 % Normal [facility] Comment on above: Order Comment: Speci men Type: BLOOD SPECIMEN Ordering Facility: [facility] Address: [address] [place] [address] Performed By: #### 2 4323-8 #### [facility] CLIA [id number] [address] [place] [address] [place] #### 97001-7 #### [facility] CLIA [id number] 1 [place] [address] [place] [facility] CLIA [id number] [address] [place] [address] [place] #### 3016-3, 2132-06 #### [facility] CLIA [id number] 1 [place] [address] [place] Nucleated RBC (Bld) [#/Vol] 10*3/uL Normal <0.01 [facility] Comment on above: Order Comment: Speci men Type: BLOOD SPECIMEN Ordering Facility: [facility] Address: [address] [place] [address] Performed By: #### 2 4323-8 #### [facility] CLIA [id number] [address] [place] [address] [place] #### 99398-7 #### [facility] CLIA [id number] 1 [place] [address] [place] [facility] CLIA [id number] [address] [place] [address] [place] #### 3016-3, 2132-06 #### [facility] CLIA [id number] [address] [place] Nucleated RBC/100 WBC (Bld) [Ratio] 0.0 /100 WBC Normal [facility] Comment on above: Order Comment: Speci men Type: BLOOD SPECIMEN Ordering Facility: [facility] Address: [address] [place] [address] Performed By: #### 2 4323-8 #### [facility] CLIA [id number] [address] [place] [address] [place] #### 26430-5 #### [facility] CLIA [id number] 1 [place] [address] [place] [facility] CLIA [id number] [address] [place] [address] [place] #### 3016-3, 2132-06 #### [facility] CLIA [id number] 1 [place] [address] [place] Platelet mean volume (Bld) [Entitic vol] 9.5 fL Normal 9.0-12.7 [facility] Comment on above: Order Comment: Speci men Type: BLOOD SPECIMEN Ordering Facility: [facility] Address: [address] [place] [address] Performed By: #### 2 4323-8 #### [facility] CLIA [id number] [address] [place] [address] [place] #### 11155-8 #### [facility] CLIA [id number] [address] STATES OF [facility] CLIA [id number] [address] [place] [address] [place] #### 3016-3, 2132-06 #### [facility] CLIA [id number] 1 [place] [address] [place] Platelets (Bld) [#/Vol] 231 10*3/uL Normal 150-400 [facility] Comment on above: Order Comment: Speci men Type: BLOOD SPECIMEN Ordering Facility: [facility] Address: [address] [place] [address] Performed By: #### 2 4323-8 #### [facility] CLIA [id number] [address] [place] [address] [place] #### 08675-9 #### [facility] CLIA [id number] [address] [place] [facility] CLIA [id number] [address] [place] [address] [place] #### 3016-3, 2132-06 #### [facility] CLIA [id number] [address] RBC (Bld) [#/Vol] 3.55 10*6/uL Low 3.90-5.20 [facility] Comment on above: Order Comment: Speci men Type: BLOOD SPECIMEN Ordering Facility: [facility] Address: [address] [place] [address] Performed By: #### 2 4323-8 #### [facility] CLIA [id number] [address] [place] [address] [place] #### 08761-7 #### [facility] CLIA [id number] [address] CLIA [id number] [address] [place] [address] [place] #### 3016-3, 2132-06 #### [facility] CLIA [id number] [address] WBC (Bld) [#/Vol] 5.20 10*3/uL Normal 3.70-11.00 [facility] Comment on above: Order Comment: Speci men Type: BLOOD SPECIMEN Ordering Facility: [facility] Address: [address] [place] [address] Performed By: #### 2 4323-8 #### [facility] CLIA [id number] [address] [place] [address] [place] #### 70428-8 #### [facility] CLIA [id number] [address] OF [facility] CLIA [id number] [address] [place] [address] [place] #### 3016-3, 2132-06 #### [facility] CLIA [id number] [address] STATES OF [facility] Comprehensive metabolic 2000 panelon 12-24-2024 Albumin [Mass/Vol] 4.2 g/dL Normal 3.9-4.9 [facility] Comment on above: Order Comment: Speci men Type: BLOOD SPECIMEN Ordering Facility: [facility] Address: [address] [id number] Performed By: #### 2 4323-8 #### [facility] CLIA [id number] 1 [place] [address] [place] #### 77271-4 #### [facility] CLIA [id number] [address] STATES OF [facility] CLIA [id number] [address] [place] [address] [place] #### 3016-3, 2132-06 #### [facility] CLIA [id number] [address] [place] ALP [Catalytic activity/Vol] 133 U/L High 34-123 [facility] Comment on above: Order Comment: Speci men Type: BLOOD SPECIMEN Ordering Facility: [facility] Address: [address] [place] [address] Performed By: #### 2 4323-8 #### [facility] CLIA [id number] [address] [place] [address] [place] #### 39166-9 #### [facility] CLIA [id number] [address] [place] [facility] CLIA [id number] [address] [place] [address] [place] #### 3016-3, 2132-06 #### [facility] CLIA [id number] [address] [place] ALT [Catalytic activity/Vol] U/L Low 7-38 [facility] Comment on above: Order Comment: Speci men Type: BLOOD SPECIMEN Ordering Facility: [facility] Address: [address] [place] [address] Performed By: #### 2 4323-8 #### [facility] CLIA [id number] [address] [place] [address] [place] #### 71356-2 #### [facility] CLIA [id number] 1 [place] [address] [place] [facility] CLIA [id number] [address] [place] [address] [place] #### 3016-3, 2132-06 #### [facility] CLIA [id number] 1 [place] [address] [place] Anion gap [Moles/Vol] 10 mmol/L Normal 8-15 [facility] Comment on above: Order Comment: Speci men Type: BLOOD SPECIMEN Ordering Facility: [facility] Address: [address] [place] [address] Performed By: #### 2 4323-8 #### [facility] CLIA [id number] [address] [place] [address] [place] #### 89860-1 #### [facility] CLIA [id number] 1 [place] [address] [place] [facility] CLIA [id number] [address] [place] [address] [place] #### 3016-3, 2132-06 #### [facility] CLIA [id number] 1 [place] [address] [place] AST [Catalytic activity/Vol] 19 U/L Normal 13-35 [facility] Comment on above: Order Comment: Speci men Type: BLOOD SPECIMEN Ordering Facility: [facility] Address: [address] [place] [address] Performed By: #### 2 4323-8 #### [facility] CLIA [id number] 1 [place] [address] [place] #### 80335-7 #### [facility] CLIA [id number] [address] OF [facility] CLIA [id number] [address] [place] [address] [place] #### 3016-3, 2132-06 #### [facility] CLIA [id number] 1 [place] [address] [place] Bilirubin [Mass/Vol] 0.4 mg/dL Normal 0.2-1.3 [facility] Comment on above: Order Comment: Speci men Type: BLOOD SPECIMEN Ordering Facility: [facility] Address: [address] [place] [address] Performed By: #### 2 4323-8 #### [facility] CLIA [id number] [address] [place] [address] [place] #### 89515-0 #### [facility] CLIA [id number] [address] STATES OF [facility] CLIA [id number] [address] [place] [address] [place] #### 3016-3, 2132-06 #### [facility] CLIA [id number] [address] [place] Calcium [Mass/Vol] 9.1 mg/dL Normal 8.5-10.2 [facility] Comment on above: Order Comment: Speci men Type: BLOOD SPECIMEN Ordering Facility: [facility] Address: [address] [place] [address] Performed By: #### 2 4323-8 #### [facility] CLIA [id number] [address] [place] [address] [place] #### 81048-9 #### [facility] CLIA [id number] 1 [place] [address] [place] [facility] CLIA [id number] [address] [place] [address] [place] #### 3016-3, 2132-06 #### [facility] CLIA [id number] [address] [place] Chloride [Moles/Vol] 104 mmol/L Normal 98-107 [facility] Comment on above: Order Comment: Speci men Type: BLOOD SPECIMEN Ordering Facility: [facility] Address: [address] [id number] Performed By: #### 2 4323-8 #### [facility] CLIA [id number] [address] [place] [address] [place] #### 76985-8 #### [facility] CLIA [id number] 1 [place] [address] [place] [facility] CLIA [id number] [address] [place] [address] [place] #### 3016-3, 2132-06 #### [facility] CLIA [id number] 1 [place] [address] [place] CO2 [Moles/Vol] 26 mmol/L Normal 22-30 [facility] Comment on above: Order Comment: Speci men Type: BLOOD SPECIMEN Ordering Facility: [facility] Address: [address] [place] [address] Performed By: #### 2 4323-8 #### [facility] CLIA [id number] 1 [place] [address] [place] #### 56938-9 #### [facility] CLIA [id number] 1 [place] [address] [place] [facility] CLIA [id number] [address] [place] [address] [place] #### 3016-3, 2132-06 #### [facility] CLIA [id number] [address] STATES [facility] Creatinine [Mass/Vol] 0.62 mg/dL Normal 0.58-0.96 [facility] Comment on above: Order Comment: Speci men Type: BLOOD SPECIMEN Ordering Facility: [facility] Address: [address] [place] [address] Performed By: #### 2 4323-8 #### [facility] CLIA [id number] [address] [place] [address] #### 70588-3 #### [facility] CLIA [id number] [address] STATES [facility] CLIA [id number] [address] [place] [address] [place] #### 3016-3, 2132-06 #### [facility] CLIA [id number] [address] Creatinine and Glomerular filtration rate.predicted panel (S/P/Bld) 91 mL/min/1.73m??? Normal >=60 [facility] Comment on above: Order Comment: Speci men Type: BLOOD SPECIMEN Ordering Facility: [facility] Address: [address] [place] [address] Result Comment: Afia mated Glomerular Filtration Rate [...] reflect actual GFR. Performed By: #### 2 4323-8 #### [facility] CLIA [id number] [address] [place] [address] [place] #### 29278-9 #### [facility] CLIA [id number] 1 [place] [address] [place] [facility] CLIA [id number] 1 [place] [address] [place] #### 3016-3, 2132-06 #### [facility] CLIA [id number] [address] [place] Glucose [Mass/Vol] 101 mg/dL High 74-99 [facility] Comment on above: Order Comment: Speci men Type: BLOOD SPECIMEN Ordering Facility: [facility] Address: [address] [place] [address] Result Comment: The [place] Diabetes Association (ADA) provides guidance for cutoff [...] Standards of Medical Care in Diabetes 2016, [place] [employer]. Diabetes Care. 2016.39(Suppl 1). Performed By: #### 2 4323-8 #### [facility] CLIA [id number] [address] [place] [address] [place] #### 57368-3 #### [facility] CLIA [id number] 1 [place] [address] [place] [facility] CLIA [id number] [address] [place] [address] [place] #### 3016-3, 2132-06 #### [facility] CLIA [id number] [address] [place] Potassium [Moles/Vol] 3.8 mmol/L Normal 3.7-5.1 [facility] Comment on above: Order Comment: Speci men Type: BLOOD SPECIMEN Ordering Facility: [facility] Address: [address] [id number] Performed By: #### 2 4323-8 #### [facility] CLIA [id number] [address] [place] [address] [place] #### 79982-8 #### [facility] CLIA [id number] [address] [place] [facility] CLIA [id number] [address] [place] [address] [place] #### 3016-3, 2132-06 #### [facility] CLIA [id number] [address] [place] Protein [Mass/Vol] 6.8 g/dL Normal 6.3-8.0 [facility] Comment on above: Order Comment: Speci men Type: BLOOD SPECIMEN Ordering Facility: [facility] Address: [address] [place] [address] Performed By: #### 2 4323-8 #### [facility] CLIA [id number] [address] [place] [address] [place] #### 35254-6 #### [facility] CLIA [id number] [address] STATES OF [facility] CLIA [id number] [address] [place] [address] [place] #### 3016-3, 2132-06 #### [facility] CLIA [id number] 1 [place] [address] [place] Sodium [Moles/Vol] 140 mmol/L Normal 136-144 [facility] Comment on above: Order Comment: Speci men Type: BLOOD SPECIMEN Ordering Facility: [facility] Address: [address] [id number] Performed By: #### 2 4323-8 #### [facility] CLIA [id number] [address] [place] [address] [place] #### 78575-5 #### [facility] CLIA [id number] [address] OF [facility] CLIA [id number] [address] [place] [address] [place] #### 3016-3, 2132-06 #### [facility] CLIA [id number] [address] [place] Urea nitrogen [Mass/Vol] 24 mg/dL High 7- [facility] Comment on above: Order Comment: Speci men Type: BLOOD SPECIMEN Ordering Facility: [facility] Address: [address] [place] [address] Performed By: #### 2 4323-8 #### [facility] CLIA [id number] [address] [place] [address] [place] #### 83757-6 #### [facility] CLIA [id number] [address] STATES OF [facility] CLIA [id number] [address] [place] [address] [place] #### 3016-3, 2132-06 #### [facility] CLIA [id number] [address] OF [facility] Lipid 1996 panelon 5 Cholesterol [Mass/Vol] 169 mg/dL Normal <200 [facility] Comment on above: Order Comment: Speci men Type: BLOOD SPECIMEN Ordering Facility: [facility] Address: [address] [place] [address] Result Comment: <200 mg/dL, Desirable 200-239 mg/dL, Borderline high >239 mg/dL, High Performed By: #### 2 4323-8 #### [facility] CLIA [id number] [address] [place] [address] [place] #### 46873-3 #### [facility] CLIA [id number] 1 [place] [address] [place] [facility] CLIA [id number] [address] [place] [address] [place] #### 3016-3, 2132-06 #### [facility] CLIA [id number] 1 [place] [address] [place] Cholesterol in HDL [Mass/Vol] 61 mg/dL Normal >39 [facility] Comment on above: Order Comment: Speci men Type: BLOOD SPECIMEN Ordering Facility: [facility] Address: [address] [place] [address] Result Comment: 40-5 9 mg/dL, Acceptable >59 mg/dL, High: Negative risk factor for coronary heart disease <40 mg/dL, Low: Positive risk factor for coronary heart disease Performed By: #### 2 4323-8 #### [facility] CLIA [id number] [address] [place] [address] [place] #### 09335-0 #### [facility] CLIA [id number] [address] [place] [address] [place] [facility] CLIA [id number] [address] [place] [address] [place] #### 3016-3, 2132-06 #### [facility] CLIA [id number] [address] [place] [address] [place] Cholesterol in LDL [Mass/Vol] 98 mg/dL Normal <100 [facility] Comment on above: Order Comment: Speci men Type: BLOOD SPECIMEN Ordering Facility: [facility] Address: [address] [place] [address] Result Comment: <100 mg/dL, Optimal 100-129 mg/dL, Near optimal/above optimal 130-159 mg/dL, Borderline high 160-189 mg/dL, High >189 mg/dL, Very high Secondary prevention optimal LDL Cholesterol levels are recommended to be < 70 mg/dL Performed By: #### 2 4323-8 #### [facility] CLIA [id number] [address] [place] #### 61559-3 #### [facility] CLIA [id number] [address] CLIA [id number] [address] [place] [address] #### 3016-3, 2132-06 #### [facility] CLIA [id number] [address] Cholesterol in LDL/Cholesterol in HDL [Mass ratio] 1.61 {ratio} Normal <2.54 [facility] Comment on above: Order Comment: Speci men Type: BLOOD SPECIMEN Ordering Facility: [facility] Address: [address] [place] [address] Result Comment: Refe bharati: 1. National Cholesterol Education Program ATP III Guideline At-A-Glance Quick Desk Reference: National Heart, Lung, and Blood [place]. National Institutes of Health. 2001: NIH Publication No. [id number]. 2. An International Atherosclerosis Society position paper: global recommendations for the management of dyslipidemia: executive summary, Atherosclerosis. 2014: 232(2):410-413. Performed By: #### 2 4323-8 #### [facility] CLIA [id number] [address] [place] #### 39292-1 #### [facility] CLIA [id number] [address] CLIA [id number] [address] [place] [address] #### 3016-3, 2132-06 #### [facility] CLIA [id number] [address] Cholesterol in VLDL [Mass/Vol] 10 mg/dL Normal <30 [facility] Comment on above: Order Comment: Speci men Type: BLOOD SPECIMEN Ordering Facility: [facility] Address: [address] [place] [address] Performed By: #### 2 4323-8 #### [facility] CLIA [id number] [address] [place] #### 16704-7 #### [facility] CLIA [id number] [address] CLIA [id number] [address] [place] [address] [place] #### 3016-3, 2132-06 #### [facility] CLIA [id number] [address] Cholesterol non HDL [Mass/Vol] 108 mg/dL Normal <130 [facility] Comment on above: Order Comment: Speci men Type: BLOOD SPECIMEN Ordering Facility: [facility] Address: [address] [place] [address] Result Comment: <130 mg/dL, Optimal 130-159 mg/dL, Near optimal/above optimal 160-189 mg/dL, Borderline high 190-219 mg/dL, High >219 mg/dL, Very high Secondary prevention optimal non HDL Cholesterol levels are recommended to be <100 mg/dL Performed By: #### 2 4323-8 #### [facility] CLIA [id number] [address] OF [place] #### 23204-7 #### [facility] CLIA [id number] [address] STATES OF [facility] CLIA [id number] [address] [place] [address] [place] #### 3016-3, 2132-06 #### [facility] CLIA [id number] [address] Cholesterol.total/Choles terol in HDL [Mass ratio] 2.77 {ratio} Normal <5.10 [facility] Comment on above: Order Comment: Speci men Type: BLOOD SPECIMEN Ordering Facility: [facility] Address: [address] [place] [address] Performed By: #### 2 4323-8 #### [facility] CLIA [id number] [address] [place] #### 87365-1 #### [facility] CLIA [id number] [address] CLIA [id number] [address] [place] [address] [place] #### 3016-3, 2132-06 #### [facility] CLIA [id number] [address] FASTING TIME 11 hrs Normal [facility] Comment on above: Order Comment: Speci men Type: BLOOD SPECIMEN Ordering Facility: [facility] Address: [address] [place] [address] Performed By: #### 2 4323-8 #### [facility] CLIA [id number] [address] [place] [address] OF [place] #### 20949-6 #### [facility] CLIA [id number] [address] STATES OF [facility] CLIA [id number] [address] [place] [address] [place] #### 3016-3, 2132-06 #### [facility] CLIA [id number] [address] [place] Triglyceride [Mass/Vol] 52 mg/dL Normal <150 [facility] Comment on above: Order Comment: Speci men Type: BLOOD SPECIMEN Ordering Facility: [facility] Address: [facility] [place] [address] Result Comment: <150 mg/dL, Normal 150-199 mg/dL, Borderline high 200-499 mg/dL, High >499 mg/dL, Very high Performed By: #### 2 4323-8 #### [facility] CLIA [id number] [address] [place] [address] [place] #### 49003-9 #### [facility] CLIA [id number] [address] STATES OF [facility] CLIA [id number] [address] [place] [address] [place] #### 3016-3, 2132-06 #### [facility] CLIA [id number] [address] [place] TSH SerPl-aCncon 12-24-2024 TSH Qn 3.060 m[IU]/L Normal 0.270-4.200 [facility] Comment on above: Order Comment: Speci men Type: BLOOD SPECIMEN Ordering Facility: [facility] Address: [address] [place] [address] Performed By: #### 2 4323-8 #### [facility] CLIA [id number] [address] [place] [address] [place] #### 78811-2 #### [facility] CLIA [id number] 1 [place] [address] [place] [facility] CLIA [id number] [address] [place] [address] [place] #### 3016-3, 2132-06 #### [facility] CLIA [id number] 1 [place] [address] [place] Vit B12 SerPl-mCncon 025 Cobalamin (Vitamin B12) [Mass/Vol] 355 pg/mL Normal 232-1245 [facility] Comment on above: Order Comment: Speci men Type: BLOOD SPECIMEN Ordering Facility: [facility] Address: [address] [place] [address] Performed By: #### 2 4323-8 #### [facility] CLIA [id number] [address] [place] #### 33711-0 #### [facility] CLIA [id number] [address] CLIA [id number] [address] #### 3016-3, 2132-9 #### [facility] CLIA [id number] [address] CNPNon 11-20-2024 CNPN Telephone (NREUS2) LOU OLIVER ([id number]) 1945 F Date Time Provider Department 11/20/24 SAYRA MABRY NREUS2 During your visit today, we recorded the following information about you: Radha Cullen 11/20/2024 9:52 AM Signed Patient calling to speak with someone about her blood pressure. She says she experiencing almost like a panic attack. She has been having elevated blood pressures. Last night it was 201/82 and she called the squad. She was told it was a panic attack and didn't feel she needed to go to the ER. She says this is occurring 2-3 days out of the month. She has had panic attacks in the past and these don't seem as intense. They also occur around the same time (usually around 7 pm). She isn't sure if it's related to her medications. She has also increased her water intake to 60 oz daily. She is requesting advise/recommendations . Sayra Mabry MD 11/20/2024 2:14 PM Signed Just seen on 11/05 and referred to psychiatry which she luckily was already able to do on 11/09. At 11/05 visit there did not seem to be any correlation with panic and Sinemet timing. Perhaps after that discussion she is noticing a link. If that is the case then can move 7p dose to 630 for now. For the BP- please verify the times she is taking midodrine and other BP readings. Last dose of midodrine shouldn't be later than dinner time. Perhaps with taking in more water she needs hold parameters on midodrine- don't take if BP over 110 systolic Jamila Woods RN 11/23/2024 10:39 AM Signed Panic attacks normally occur during off times, in the evening around 1900. Sinemet is usually due within in one hour Midodrine 10mg three times daily. Does not check BP prior to taking. Taking half doses = 5mg since 11/21/24 0700 1100 1500 Activities prior to checking BP, normal ADLs, cleaning, or sitting in chair, does not lay down after taking midodrine. Elevated BP is before 1900 dose of sinemet. During call 115/56 HR 77 Fluid intake trying hard to increase it 50-60 ounces daily throughout the day Was started on hydroxyzine, feels this is helpful and also sleeping better. Most recent BP, does not have the dates or correct times (BP machine was never programed) 166/77 127/59 112/51 201/82 11/20/24 1930 191/81 11/20/24 1900 148/59 92/43 120/54 166/68 159/78 100/50 85/40 93/50 82/44 111/64 114/55 90/46 90/53 122/54 95/44 Patient has been advised to check BP prior to taking midodrine and to hold for SBP greater than 110. Allergies As of Date: 11/20/2024 Noted Allergy Reaction SULFA (SULFONAMIDE ANTIBIOTICS) 10/26/2005 4 - Hives Date Reviewed: 11/11/2024 Reviewed by: Juan Carlos Ordoñez MD - Fully Assessed Reason for Visit: Blood Pressure [15] Prescriptions as of 11/23/2024 - hydrOXYzine HCl (ATARAX) 25 mg tablet Take 1 tablet by mouth three times a day as needed. - mirtazapine (REMERON) 7.5 mg tablet Take 1 tablet by mouth daily at bedtime. - pravastatin (PRAVACHOL) 20 mg tablet Take 1 tablet by mouth daily at bedtime. - carbidopa-levodopa (SINEMET 25-100) 25-100 mg per tablet Take 1 tab at 4AM, 1 tab at 7AM, 2 tabs at 11AM, 2 tabs at 3PM and 1.5 tabs at 7PM. - carbidopa-levodopa CR (SINEMET CR) 50-200 mg per tablet TAKE 1 TABLET BY MOUTH in Morning and before bedtime as instructed. - midodrine (PROAMATINE) 10 mg tablet Take 1 tablet by mouth every 8 hours. - ondansetron orally disintegrating (ZOFRAN ODT) 4 mg disintegrating tablet Take 1 tablet by mouth every 8 hours as needed for nausea/vomiting. - pantoprazole DR (PROTONIX) 40 mg tablet [...] Take on empty stomach. For Thyroid - Olopatadine (PATADAY ONCE DAILY RELIEF) 0.2 % drop Use 1 Drop in both eyes once daily. - docusate sodium (COLACE) 100 mg capsule Take 1 capsule by mouth two times a day. - LORazepam (ATIVAN) 0.5 mg Take 0.5 mg by mouth as needed. - Cholecalciferol, Vitamin D3, 50 mcg (2,000 unit) cap Take 2,000 Units by mouth once daily. Problem List As Of Date 11/20/2024 Noted Resolved Essential hypertension, benign [I10] 04/04/2007 Hypothyroidism [E03.9] 04/04/2007 COMMON MIGRAINE [346.1] 04/04/2007 EVAN (generalized anxiety disorder) [F41.1] 04/04/2007 Mixed hyperlipidemia [E78.2] 10/26/2009 Pes anserinus bursitis of left knee [M70.52] 10/29/2013 Left knee pain [M25.562] 10/29/2013 Cervical spondylosis without myelopathy [M47.81*05/18/2020 Parkinson disease (more content not included)... Normal [facility] HISTORY PHYSICALon HISTORY PHYSICAL HNO ID: [id number] Author: JUAN CARLOS ORODÑEZ MD Service: ? Author Type: Physician Type: H&P Filed: 11/11/2024 11:17 Note Text: NEW - PSYCHIATRY INITIAL EVALUATION SERVICE DATE: November 09, 2024 Visit Type: Virtual Visit utilizing two-way audio and video for at least a portion of the visit. Consent for virtual visit obtained verbally. Confidentiality limitations with virtual visits reviewed with the patient and guardian, if present, who have accepted the risk verbally prior to proceeding with encounter. I have communicated my name and active licensure. The patient's identity and physical location were verified at the time of this visit. Either the patient or their legal auto service representative has been informed of the risks and benefits of -- and alternatives to -- treatment through a remote evaluation and consents to proceed with the evaluation remotely. CONSULTING SERVICE : Psychiatry, requested by Dr. Sayra Mabry REASON FOR CONSULTATION: anxiety Subjective IDENTIFYING INFO: This is a 79 y/o F w/ PMH PD, migraines, hypothyroidism, HTN and PPH MDD, unspecified anxiety who presents for initial evaluation. HISTORY OF PRESENT ILLNESS : Patient seen virtually for initial evaluation. She reports a history of both depression and anxiety. She had been seeing a therapist, however they relocated and she has not sought someone new. She has never seen a psychiatrist before, however has trialed various psychotropics from different providers. She feels that her anxiety has been 'creeping up' recently. It is particularly experienced as her Sinemet is wearing off- feels panicked, helpless and scared. She can sometimes calm herself down, otherwise calls her nearby niece who can visit which is helpful. This is in the setting of worsened gait issues over the last 6 months with multiple falls- typically uses rollator or cane. Additionally experiences persistent, generalized worrying patterns with associated task avoidance. After starting mirtazapine last week she is able to fall asleep relatively quickly (previously delayed). Wakes up for 4AM medications, able to fall back asleep quickly. Sometimes will take 1-2 short naps during the day. Occasional dream enactment- walking, punching her pillow. She describes recent symptoms of depression after the end of a romantic relationship- low mood, anhedonia, social withdrawal, apathy. Appetite unchanged, however feels disinclined to eat 2/2 nausea from Sinemet- does drink Ensures throughout the day. Fleeting moments of SI, denies persistence, denies progression to means/methods consideration. Strong protective factors in her supportive family. No history of NSSI/SA. Attending PT classes several times a week, which she enjoys. Has been limiting her driving, however has friends/family who help her get around. Has increasingly noticed movements in her peripheral vision, sometimes appears like insects or mice. Relatively frequent visual illusions. Non-distressing, insight intact. Denies complex, formed VH, denies AH. Some forgetfulness. Denied increase in seeking pleasurable activities- no increase/change in substance use, sexual habits, gambling. Does Patient Have Any Suicidal Ideations: denied at time of encounter STRESSORS: recent break up COLLATERAL INFORMATION: History obtained from chart review and direct patient evaluation PSYCHIATRIC REVIEW OF SYMPTOMS: Negative aside from as above in HPI MEDICAL REVIEW OF SYSTEMS: Pertinent Positives: gait instability The remainder was reviewed and unremarkable. PSYCHIATRIC HISTORY: Diagnoses: MDD, unspecified anxiety Current Psychiatrist: None Current Therapist: None Psychiatric Hospitalization(s): None History of Suicide Attempts: None Previous Psychiatric Medication Trials: Amitriptyline 10mg Buspirone 10mg TID Escitalopram 10mg Gabapentin Lorazepam 0.5mg Trazodone 50mg Current Outpatient Psychiatric Medications: Mirtazapine 7.5mg Sertraline 150mg SUBSTANCE ABUSE HISTORY: Denies significant use/misuse of EtOH, nicotine, illicit substances SOCIAL HISTORY: Two previous marriages, described as unhealthy. Two adult daughters. 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 FAMILY PSYCHIATRIC HISTORY: Several deaths by suicide on both maternal and paternal sides of her family FAMILY HISTORY Problem Relation Age of Onset Hypertension Mother Arthritis Mother Heart disease Mother Diabetes Father adult onset Emphysema Father Cancer Father lung Psychiatry Maternal Grandmother Ischemic Heart Disease Maternal Grandfather Diabetes Paternal Grandmother Asthma Daughter Allergic Rhinitis Daughter Colon Cancer No Family History PAST MEDICAL HISTORY Diagnosis Date Diverticulosis of colon (without mention of hemorrhage) Essential hypertension, benign 04/04/2007 Mental disorder Migraine without aura 04/04/2007 Parkinson disease (HCC) Unspecified hypot (more content not included)... Normal [facility] CNTHERAPYon 11-02-2024 CNTHERAPY OT/PT/Speech Visit (AKSTLK) OLU OLIVER ([id number]) 1945 F Date Time Provider Department 11/02/24 4:00 PM LOI SHERWOOD Date Time Provider Department Center 11/02/2024 4:00 PM [id number] SHERWOOD Reason for Visit: Speech Discharge [3488] Primary Visit Diagnosis:Dysphagia, unspecified type [R13.10] Allergies As of Date: 11/02/2024 Noted Allergy Reaction SULFA (SULFONAMIDE ANTIBIOTICS) 10/26/2005 4 - Hives Date Reviewed: 10/22/2024 Reviewed by: Sayra Mabry MD - Fully Assessed Prescriptions as of 11/02/2024 - pravastatin (PRAVACHOL) 20 mg tablet Take 1 tablet by mouth daily at bedtime. - carbidopa-levodopa (SINEMET 25-100) 25-100 mg per tablet Take 1 tab at 4AM, 1 tab at 7AM, 2 tabs at 11AM, 2 tabs at 3PM and 1.5 tabs at 7PM. - carbidopa-levodopa CR (SINEMET CR) 50-200 mg per tablet TAKE 1 TABLET BY MOUTH in Morning and before bedtime as instructed. - midodrine (PROAMATINE) 10 mg tablet Take 1 tablet by mouth every 8 hours. - ondansetron orally disintegrating (ZOFRAN ODT) 4 mg disintegrating tablet Take 1 tablet by mouth every 8 hours as needed for nausea/vomiting. - pantoprazole DR (PROTONIX) 40 mg tablet [...] Take on empty stomach. For Thyroid - Olopatadine (PATADAY ONCE DAILY RELIEF) 0.2 % drop Use 1 Drop in both eyes once daily. - docusate sodium (COLACE) 100 mg capsule Take 1 capsule by mouth two times a day. - LORazepam (ATIVAN) 0.5 mg Take 0.5 mg by mouth as needed. - Cholecalciferol, Vitamin D3, 50 mcg (2,000 unit) cap Take 2,000 Units by mouth once daily. Normal [facility] CNTHERAPY OT/PT/Speech Visit (AKPTLK) LOU OLIVER ([id number]) 1945 F Date Time Provider Department 11/02/24 2:30 PM SHARA TAPIA Date Time Provider Department Center 11/02/2024 2:30 PM [id number] TAPIA [facility] Reason for Visit: PT Discharge [752] Primary Visit Diagnosis:Impaired functional mobility, balance, gait, and endurance [Z74.09] Other Visit Diagnosis:Parkinson's disease with dyskinesia, unspecified whether manifestations fluctuate ([facility]) [G20.B1] Allergies As of Date: 11/02/2024 Noted Allergy Reaction SULFA (SULFONAMIDE ANTIBIOTICS) 10/26/2005 4 - Hives Date Reviewed: 10/22/2024 Reviewed by: Sayra Mabry MD - Fully Assessed Prescriptions as of 11/02/2024 - pravastatin (PRAVACHOL) 20 mg tablet Take 1 tablet by mouth daily at bedtime. - carbidopa-levodopa (SINEMET 25-100) 25-100 mg per tablet Take 1 tab at 4AM, 1 tab at 7AM, 2 tabs at 11AM, 2 tabs at 3PM and 1.5 tabs at 7PM. - carbidopa-levodopa CR (SINEMET CR) 50-200 mg per tablet TAKE 1 TABLET BY MOUTH in Morning and before bedtime as instructed. - midodrine (PROAMATINE) 10 mg tablet Take 1 tablet by mouth every 8 hours. - ondansetron orally disintegrating (ZOFRAN ODT) 4 mg disintegrating tablet Take 1 tablet by mouth every 8 hours as needed for nausea/vomiting. - pantoprazole DR (PROTONIX) 40 mg tablet [...] Take on empty stomach. For Thyroid - Olopatadine (PATADAY ONCE DAILY RELIEF) 0.2 % drop Use 1 Drop in both eyes once daily. - docusate sodium (COLACE) 100 mg capsule Take 1 capsule by mouth two times a day. - LORazepam (ATIVAN) 0.5 mg Take 0.5 mg by mouth as needed. - Cholecalciferol, Vitamin D3, 50 mcg (2,000 unit) cap Take 2,000 Units by mouth once daily. Normal [facility] CNTHERAPYon 10-05-2024 CNTHERAPY OT/PT/Speech Visit ([facility]) LOU OLIVER ([id number]) 1945 F Date Time Provider Department 10/05/24 3:15 PM LOI SHERWOOD Date Time Provider Department Center 10/05/2024 3:15 PM [id number] SHERWOOD Geovanny Wheeler Reason for Visit: Speech Therapy [3489] Primary Visit Diagnosis:Dysphagia, unspecified type [R13.10] Other Visit Diagnosis:Problem with voice production [R47.89] Allergies As of Date: 10/05/2024 Noted Allergy Reaction SULFA (SULFONAMIDE ANTIBIOTICS) 10/26/2005 4 - Hives Date Reviewed: 07/31/2024 Reviewed by: Sayra Mabry MD - Fully Assessed Prescriptions as of 10/05/2024 - midodrine (PROAMATINE) 10 mg tablet Take 1 tablet by mouth every 8 hours. - ondansetron orally disintegrating (ZOFRAN ODT) 4 mg disintegrating tablet Take 1 tablet by mouth every 8 hours as needed for nausea/vomiting. - pantoprazole DR (PROTONIX) 40 mg tablet [...] Drop in both eyes once daily. - docusate sodium (COLACE) 100 mg capsule [...] 2,000 Units by mouth once daily. Normal [facility] CNTHERAPY OT/PT/Speech Visit (AKPTLK) LOU OLIVER ([id number]) 1945 F Date Time Provider Department 10/05/24 2:30 PM SHARA TAPIA Date Time Provider Department Center 10/05/2024 2:30 PM [id number] TAPIA [facility] Reason for Visit: Physical Therapy [503] Primary Visit Diagnosis:Impaired functional mobility, balance, gait, and endurance [Z74.09] Other Visit Diagnosis:Parkinson's disease with dyskinesia, unspecified whether manifestations fluctuate ([facility]) [G20.B1] Allergies As of Date: 10/05/2024 Noted Allergy Reaction SULFA (SULFONAMIDE ANTIBIOTICS) 10/26/2005 4 - Hives Date Reviewed: 07/31/2024 Reviewed by: Sayra Mabry MD - Fully Assessed Prescriptions as of 10/05/2024 - midodrine (PROAMATINE) 10 mg tablet Take 1 tablet by mouth every 8 hours. - ondansetron orally disintegrating (ZOFRAN ODT) 4 mg disintegrating tablet Take 1 tablet by mouth every 8 hours as needed for nausea/vomiting. - pantoprazole DR (PROTONIX) 40 mg tablet [...] Drop in both eyes once daily. - docusate sodium (COLACE) 100 mg capsule [...] 2,000 Units by mouth once daily. Normal [facility] [id number] 09-28-2024 [id number] O ID: [id number] Author: LOI SHERWOOD CCC-JULIAN Service: ? Author Type: Speech Language Pathologist Type: [id number] Filed: 09/28/2024 18:19 Note Text: [facility] Speech Therapy Plan of Care Certification Patient Name: Lou Oliver : 1945 [facility] #: [id number] Date: 09/28/2024 To: Sayra Mabry MD From Therapist: Loi Sherwood CCC-CORPORATE SECURITY MANAGER RE: Patient Certification/ Recertification Your review, approval and electronic signature are required in order to comply with Payor: MEDICARE / Plan: MEDICARE A AND B / Product Type: Medicare / regulations. The identified Speech Therapy PLAN OF CARE for the patient is as follows: R47.89 Problem with voice production (primary encounter diagnosis) G20.B1 Parkinson's disease with dyskinesia, unspecified whether manifestations fluctuate (HCC) R13.10 Dysphagia, unspecified type PLAN OF CARE: Impression: Communication deficits identified: Voice disorder Swallow Deficits Identified / Suspected: Oropharyngeal dysphagia RECOMMENDATION: Diet Recommendations: Thin Liquids IDDSI Level 0, Soft and Bite-Sized IDDSI Level 6 Swallowing Precautions Recommendations: Effortful swallow, Feed / Eat at a slow rate (Three second hold with food and liquids, including liquids via straw) CORPORATE SECURITY MANAGER Recommendations: Outpatient Speech Therapy Results and Recommendations Discussed With: Patient Prognosis: Fair Fair: (limited to one visit a week due to transportation issues) Goals for Episode of Care: created on 09/28/2024 through 12/21/24 SWALLOWING GOALS Demonstrate knowledge and use of compensatory swallowing strategies in order to reduce signs/symptoms of possible aspiration with a Soft and Bite-Sized IDDSI Level 6 and Thin Liquids IDDSI Level 0 within 100% of trials. All goals to target the patient's overall ability to safely consume the highest appropriate diet level VOICE/LSVT GOALS Phonate with a LOUD voice > 70 dB SPL for medical and social needs during various speech tasks at sentence levels 80% of the time. All goals to target the patient's overall ability to facilitate functional communication of ADL medical / social needs. Planned Interventions, Frequency, and Duration: Planned Treatment Interventions: Dysphagia Reduction Training (29106), Patient / Caregiver Education/ Training, Voice Training (89041), Dysphagia Treatment (44819) Current Frequency: 1x/week Duration: 12 weeks PLAN FOR NEXT VISIT: vocal intensity and swallow exercises Patient demonstrates good understanding of plan of care and treatment. The above goals and plan of care were discussed and agreed upon by patient/family. For further details regarding this patient refer to the Speech Therapy electronically documented visit dated 09/28/2024. Provider Attestation I have reviewed the treatment plan for Lou Oliver, CC# [id number] for the period of 09/28/24 -- 12/21/24, established on 09/28/2024. Signature certifies the need for therapy services. [facility] CNTHERAPYon 09-28-2024 CNTHERAPY OT/PT/Speech Visit (AKSTLK) LOU OLIVER ([id number]) 1945 F Date Time Provider Department 09/28/24 3:15 PM LOI SHERWOOD Date Time Provider Department [place] 09/28/2024 3:15 PM [id number] SHERWOOD Reason for Visit: Speech Evaluation [1647] Primary Visit Diagnosis:Problem with voice production [R47.89] Other Visit Diagnoses:Parkinson's disease with dyskinesia, unspecified whether manifestations fluctuate (HCC) [G20.B1] Dysphagia, unspecified type [R13.10] Allergies As of Date: 09/28/2024 Noted Allergy Reaction SULFA (SULFONAMIDE ANTIBIOTICS) 10/26/2005 4 - Hives Date Reviewed: 07/31/2024 Reviewed by: Sayra Mabry MD - Fully Assessed Prescriptions as of 09/28/2024 - midodrine (PROAMATINE) 10 mg tablet Take 1 tablet by mouth every 8 hours. - ondansetron orally disintegrating (ZOFRAN ODT) 4 mg disintegrating tablet Take 1 tablet by mouth every 8 hours as needed for nausea/vomiting. - pantoprazole DR (PROTONIX) 40 mg tablet [...] Drop in both eyes once daily. - docusate sodium (COLACE) 100 mg capsule [...] 2,000 Units by mouth once daily. Normal [facility] CNTHERAPY OT/PT/Speech Visit (AKPTLK) LOU OLIVER ([id number]) 1945 F Date Time Provider Department 09/28/24 2:30 PM SHARA TAPIA Date Time Provider Department Center 09/28/2024 2:30 PM [id number] TAPIA [place] Reason for Visit: PT Progress Note [1596] Primary Visit Diagnosis:Impaired functional mobility, balance, gait, and endurance [Z74.09] Other Visit Diagnosis:Parkinson's disease with dyskinesia, unspecified whether manifestations fluctuate ([facility]) [G20.B1] Allergies As of Date: 09/28/2024 Noted Allergy Reaction SULFA (SULFONAMIDE ANTIBIOTICS) 10/26/2005 4 - Hives Date Reviewed: 07/31/2024 Reviewed by: Oglala, Sayra, MD - Fully Assessed Prescriptions as of 09/28/2024 - midodrine (PROAMATINE) 10 mg tablet Take 1 tablet by mouth every 8 hours. - ondansetron orally disintegrating (ZOFRAN ODT) 4 mg disintegrating tablet Take 1 tablet by mouth every 8 hours as needed for nausea/vomiting. - pantoprazole DR (PROTONIX) 40 mg tablet [...] Drop in both eyes once daily. - docusate sodium (COLACE) 100 mg capsule [...] 2,000 Units by mouth once daily. Normal [facility] CNTHERAPYon 08-31-2024 CNTHERAPY OT/PT/Speech Visit (AKPTLK) LOU OLIVER ([id number]) 1945 F Date Time Provider Department 08/31/24 2:30 PM SHARA TAPIA Date Time Provider Department [place] 08/31/2024 2:30 PM [id number] TAPIA Geovanny Wheeler Reason for Visit: Physical Therapy [503] Primary Visit Diagnosis:Impaired functional mobility, balance, gait, and endurance [Z74.09] Other Visit Diagnosis:Parkinson's disease with dyskinesia, unspecified whether manifestations fluctuate ([facility]) [G20.B1] Allergies As of Date: 08/31/2024 Noted Allergy Reaction SULFA (SULFONAMIDE ANTIBIOTICS) 10/26/2005 4 - Hives Date Reviewed: 07/31/2024 Reviewed by: Sayra Mabry MD - Fully Assessed Prescriptions as of 08/31/2024 - midodrine (PROAMITINE) 5 mg tablet Take [...] 2,000 Units by mouth once daily. Normal [facility] CNTHERAPYon 08-25-2024 CNTHERAPY OT/PT/Speech Visit (AKPTLK) LOU OLIVER ([id number]) 1945 F Date Time Provider Department 08/25/24 11:45 AM SHARA TAPIA Date Time Provider Department Center 08/25/2024 11:45 AM [id number] TAPIA [facility] Reason for Visit: Physical Therapy [503] Primary Visit Diagnosis:Impaired functional mobility, balance, gait, and endurance [Z74.09] Other Visit Diagnosis:Parkinson's disease with dyskinesia, unspecified whether manifestations fluctuate ([facility]) [G20.B1] Allergies As of Date: 08/25/2024 Noted Allergy Reaction SULFA (SULFONAMIDE ANTIBIOTICS) 10/26/2005 4 - Hives Date Reviewed: 07/31/2024 Reviewed by: Sayra Mabry MD - Fully Assessed Prescriptions as of 08/25/2024 - midodrine (PROAMITINE) 5 mg tablet Take [...] 2,000 Units by mouth once daily. Normal [facility] CNTHERAPYon 08-24-2024 CNTHERAPY OT/PT/Speech Visit (AKPTLK) LOU OLIVER ([id number]) 1945 F Date Time Provider Department 08/24/24 9:30 AM SHARA TAPIAPTLK Date Time Provider Department Center 08/24/2024 9:30 AM [id number] Geovanny Wheeler Reason for Visit: Physical Therapy [503] Primary Visit Diagnosis:Impaired functional mobility, balance, gait, and endurance [Z74.09] Allergies As of Date: 08/24/2024 Noted Allergy Reaction SULFA (SULFONAMIDE ANTIBIOTICS) 10/26/2005 4 - Hives Date Reviewed: 07/31/2024 Reviewed by: Sayra Mabry MD - Fully Assessed Prescriptions as of 08/24/2024 - midodrine (PROAMITINE) 5 mg tablet Take [...] 2,000 Units by mouth once daily. Normal [facility] CNTHERAPYon 08-18-2024 CNTHERAPY OT/PT/Speech Visit (AKPTLK) LOU OLIVER ([id number]) 1945 F Date Time Provider Department 08/18/24 5:00 PM SHARA TAPIA Date Time Provider Department Center 08/18/2024 5:00 PM [id number] TAPIA [facility] Reason for Visit: Physical Therapy [503] Primary Visit Diagnosis:Impaired functional mobility, balance, gait, and endurance [Z74.09] Allergies As of Date: 08/18/2024 Noted Allergy Reaction SULFA (SULFONAMIDE ANTIBIOTICS) 10/26/2005 4 - Hives Date Reviewed: 07/31/2024 Reviewed by: Sayra Mabry MD - Fully Assessed Prescriptions as of 08/18/2024 - midodrine (PROAMITINE) 5 mg tablet Take [...] 2,000 Units by mouth once daily. Normal [facility] [id number] 08-10-2024 [id number] O ID: [id number] Author: SHARA TAPIA PT Service: ? Author Type: Physical Therapist Type: [id number] Filed: 08/10/2024 13:10 Note Text: [facility] Physical Therapy Plan of Care Certification Patient Name: Lou Oliver : 1945 [facility] #: [id number] Date: 08/10/2024 To: Sayra Mabry MD From Therapist: Shara Tapia PT RE: Patient Certification/ Recertification Your review, approval [...] disease with dyskinesia, unspecified whether manifestations fluctuate ([facility]) PLAN OF CARE: Assessment: Lou Oliver presents [...] Goals for Episode of Care: established 08/10/24 [place] in PD specific home exercise program. Improve [...] Planned: 10 Planned Treatment Interventions: Therapeutic exercise (41133), Neuromuscular re-education (93261), Therapeutic activities (68497), Self-residential management (95466), Gait Training (42778), Patient/Family/Caregiv er Education, Body Mechanics Training, Functional [...] have reviewed the treatment plan for Lou Oliver, [facility]# [id number] for the period of 08/10/24 -- 11/08/24, established on 08/10/2024. Signature certifies the need for therapy services. Normal [facility] CNTHERAPYon 08-10-2024 CNTHERAPY OT/PT/Speech Visit (AKPTLK) LOU OLIVER ([id number]) 1945 F Date Time Provider Department 08/10/24 11:45 AM SHARA TAPIA Date Time Provider Department [place] 08/10/2024 11:45 AM [id number] TAPIA Geovanny Wheeler Reason for Visit: PT Eval [747] Primary Visit Diagnosis:Impaired functional mobility, balance, gait, and endurance [Z74.09] Other Visit Diagnosis:Parkinson's disease with dyskinesia, unspecified whether manifestations fluctuate ([facility]) [G20.B1] Allergies As of Date: 08/10/2024 Noted [...] 2,000 Units by mouth once daily. Normal [facility] Basic metabolic 2000 panelon 07-15-2024 Anion gap [Moles/Vol] 10 mmol/L Normal 8-15 [facility] Comment on above: Order Comment: Speci men Type: BLOOD SPECIMENOrdering Facility: [facility] Address: [address] [place] [address] Performed By: #### 2 4321-2 ####[facility] LABORATORYCLIA [id number] [place] [address] [place] Calcium [Mass/Vol] 9.1 mg/dL Normal 8.5-10.2 [facility] Comment on above: Order Comment: Speci men Type: BLOOD SPECIMENOrdering Facility: [facility] Address: [address] [place] [address] Performed By: #### 2 4321-2 ####EN[facility] LABORATORYCLIA [id number] [place] [id number] [place] Chloride [Moles/Vol] 103 mmol/L Normal 98-107 [facility] Comment on above: Order Comment: Speci men Type: BLOOD SPECIMENOrdering Facility: [facility] Address: [address] [place] [address] Performed By: #### 2 4321-2 ####[facility] LABORATORYCLIA [id number] [place] [address] [place] CO2 [Moles/Vol] 25 mmol/L Normal 22-30 [facility] Comment on above: Order Comment: Speci men Type: BLOOD SPECIMENOrdering Facility: [facility] Address: [address] [place] [address] Performed By: #### 2 4321-2 ####[facility] LABORATORYCLIA [id number] [address] Creatinine [Mass/Vol] 0.88 mg/dL Normal 0.58-0.96 [facility] Comment on above: Order Comment: Musa justino Type: BLOOD SPECIMENOrdering Facility: [facility] Address: [address] [place] [address] Performed By: #### 2 4321-2 ####[facility] LABORATORYCLIA [id number] [address] Creatinine and Glomerular filtration rate.predicted panel (S/P/Bld) 67 mL/min/1.73m??? Normal >=60 [facility] Comment on above: Order Comment: Musa justino Type: BLOOD SPECIMENOrdering Facility: [facility] Address: [address] [place] [address] Result Comment: Afia mated Glomerular Filtration Rate [...] Performed By: #### 2 4321-2 ####[facility] LABORATORYCLIA [id number] [address] STATES OF [facility] Glucose [Mass/Vol] 128 mg/dL High 74-99 [facility] Comment on above: Order Comment: Musa badillo Type: BLOOD SPECIMENOrdering Facility: [facility] Address: [address] [place] [address] Result Comment: The [place] Diabetes Association (ADA) provides guidance for cutoff [...] Standards of Medical Care in Diabetes 2016, [place] [employer]. Diabetes Care. 2016.39(Suppl 1). Performed By: #### 2 4321-2 ####[facility] LABORATORYCLIA [id number] [place] [address] [place] Potassium [Moles/Vol] 4.1 mmol/L Normal 3.7-5.1 [facility] Comment on above: Order Comment: uMsa badillo Type: BLOOD SPECIMENOrdering Facility: [facility] Address: [address] [place] [address] Performed By: #### 2 4321-2 ####[facility] LABORATORYCLIA [id number] [address] STATES OF [facility] Sodium [Moles/Vol] 138 mmol/L Normal 136-144 [facility] Comment on above: Order Comment: Musa badillo Type: BLOOD SPECIMENOrdering Facility: [facility] Address: [address] [place] [address] Performed By: #### 2 4321-2 ####[facility] LABORATORYCLIA [id number] [address] [place] Urea nitrogen [Mass/Vol] 21 mg/dL Normal 7-21 [facility] Comment on above: Order Comment: Musa badillo Type: BLOOD SPECIMENOrdering Facility: [facility] Address: [address] [place] [address] Performed By: #### 2 4321-2 ####ENRIQUE[facility] LABORATORYCLIA [id number] [place] [id number] [facility] CASE MANAGEMon 07-15-2024 CASE MANAGEM HNO ID: [id number] Author: MADONNA CARROLL RN Service: ? Author [...] Primary Care Physician Primary Care Physician Name/Phone: Lucía Rizzo MD Additional Information: NA SIGNATURE: Madonna Carroll RN,BSN, ACM PATIENT NAME: Lou Oliver DATE: July 15, 2024 TIME: 4:38 PM CONTACT #: [phone] [facility] HNO ID: [id number] Author: MADONNA CARROLL RN Service: ? Author Type: Registered Nurse Type: Care Mgt Initial Assessment Filed: 07/15/2024 10:21 Note Text: CARE MANAGEMENT: ASSESSMENT AND DISCHARGE PLAN SERVICE DATE: July 15, 2024 SERVICE TIME: 10:19 AM PCP: Lucía Rizzo MD Primary Contact: Extended Emergency Contact Information Primary Emergency Contact: Hiro Burt [facility] Mobile Relation: Daughter Secondary Emergency Contact: Nia Rios [facility] Relation: Daughter Admission Status: Observation Insurance Provider: [facility] Discharge Planning requested by: Per Department Practice Potential Transition Plans Home;To Be Determined Advance Directives Current Advance Directive: Health Care Power of Heel Attacher;Living Will In Chart: Yes Up To Date [...] Type: Cane, Walker Discharge Planning Patient Goal(s): [place] of Choice Explained: Are you interested in bedside delivery of your medications? No, uses [facility], [place], [place] Discharge Planning Participant(s): Children Patient/Family Comments: Alison Kramer and Hiro Caregiver Assessment: Caregiver is ready, willing and able to meet the patient's needs as recommended by the inter-professional team: No Caregiver needed Transport at Discharge: Transportation Arrangements: Car Needs Prior to Discharge: Needs Prior to Discharge: To Be Determined Post-Acute Discharge Plan: 79 yr female admitted after Fall with Scalp Hematoma. Pt. 2 Alison, Nia and Hiro. in Room for Assessment. Pt. lives alone in 1 story home, has Meals on wheels Delivery and Family Support. Pt. ahs Cane and Walker at Home. Pt. plans to return Home at D/C. SIGNATURE: Madonna Carroll RN,BSN, ACM PATIENT NAME: Lou Oliver DATE: July 15, 2024 TIME: 10:18 AM CONTACT #: [phone] Normal [facility] CBC panel Auto (Bld)on 07-15 Erythrocyte distribution width (RBC) [Ratio] 11.8 % Normal 11.5-15.0 [facility] Comment on above: Order Comment: Musa badillo Type: BLOOD SPECIMENOrdering Facility: [facility] Address: [address] [place] [address] Performed By: #### 5 8410-2 ####ENRIQUEZ LABORATORYCLIA [id number] [place] [address] [place] Hematocrit (Bld) [Volume fraction] 33.8 % Low 36.0-46.0 [facility] Comment on above: Order Comment: Musa badillo Type: BLOOD SPECIMENOrdering Facility: [facility] Address: [address] [place] [address] Performed By: #### 5 8410-2 ####[facility] LABORATORYCLIA [id number] [place] [address] [place] Hemoglobin (Bld) [Mass/Vol] 11.4 g/dL Low 11.5-15.5 [facility] Comment on above: Order Comment: Musa badillo Type: BLOOD SPECIMENOrdering Facility: [facility] Address: [address] [place] [address] Performed By: #### 5 8410-2 ####[facility] LABORATORYCLIA [id number] [address] MCH (RBC) [Entitic mass] 31.1 pg Normal 26.0-34.0 [facility] Comment on above: Order Comment: Speci men Type: BLOOD SPECIMENOrdering Facility: [facility] Address: [address] [place] [address] Performed By: #### 5 8410-2 ####[facility] LABORATORYCLIA [id number] [address] MCHC (RBC) [Mass/Vol] 33.7 g/dL Normal 30.5-36.0 [facility] Comment on above: Order Comment: Speci men Type: BLOOD SPECIMENOrdering Facility: [facility] Address: [address] [place] [address] Performed By: #### 5 8410-2 ####[facility] LABORATORYCLIA [id number] [address] MCV (RBC) [Entitic vol] 92.3 fL Normal 80.0-100.0 [facility] Comment on above: Order Comment: Speci men Type: BLOOD SPECIMENOrdering Facility: [facility] Address: [address] [place] [address] Performed By: #### 5 8410-2 ####[facility] LABORATORYCLIA [id number] [address] Nucleated RBC (Bld) [#/Vol] 10*3/uL Normal <0.01 [facility] Comment on above: Order Comment: Speci men Type: BLOOD SPECIMENOrdering Facility: [facility] Address: [address] [place] [address] Performed By: #### 5 8410-2 ####[facility] LABORATORYCLIA [id number] [address] Platelet mean volume (Bld) [Entitic vol] 10.0 fL Normal 9.0-12.7 [facility] Comment on above: Order Comment: Speci men Type: BLOOD SPECIMENOrdering Facility: [facility] Address: [address] [place] [address] Performed By: #### 5 8410-2 ####EN[facility] LABORATORYCLIA [id number] [place] [id number] [facility] [place] Platelets (Bld) [#/Vol] 192 10*3/uL Normal 150-400 [facility] Comment on above: Order Comment: Speci men Type: BLOOD SPECIMENOrdering Facility: [facility] Address: [address] [place] [address] Performed By: #### 5 8410-2 ####[facility] LABORATORYCLIA [id number] [address] OF [place] RBC (Bld) [#/Vol] 3.66 10*6/uL Low 3.90-5.20 [facility] Comment on above: Order Comment: Speci men Type: BLOOD SPECIMENOrdering Facility: [facility] Address: [address] [place] [address] Performed By: #### 5 8410-2 ####[facility] LABORATORYCLIA [id number] [place] [id number] [facility] WBC (Bld) [#/Vol] 5.21 10*3/uL Normal 3.70-11.00 [facility] Comment on above: Order Comment: Speci men Type: BLOOD SPECIMENOrdering Facility: [facility] Address: [address] [place] [address] Performed By: #### 5 8410-2 ####ENRI[facility] LABORATORYCLIA [id number] [address] CNDSon 07-15-2024 CNDS HNO ID: [id number] Author: SHOLA MAYORGA MD Service: Hospital Medicine Author Type: Physician Type: Discharge Summary Filed: 07/15/2024 15:40 Note Text: DISCHARGE SUMMARY PATIENT NAME: Lou Oliver ADMISSION DATE: 07/14/2024 DISCHARGE DATE: 07/15/2024 ATTENDING PHYSICIAN: Shola Mayorga MD Code Status: Full Code PCP: Lucía Rizzo MD Highest Readmission Risk Score: 10 [...] AND MEDICAL TEAM: My Main Hospital Doctor: Shola Mayorga MD Primary Care Provider: Lucía Rizzo MD My Medical Team Members: Treatment Team: Attending Provider: Shola Mayorga MD Primary Service: 1, [facility] MY CONDITION AT DISCHARGE: Stable REASON I [...] follow up with Dr. Mabry. Did decline [facility] at this time. OTHER PROBLEMS/DIAGNOSIS: Principal Problem [...] CONSULTS DURING HOSPITALIZATION: Treatment Team: Attending Provider: Shola Mayorga MD Primary Service: , [facility] PATIENT CONDITION AT DISCHARGE: Stable DISCHARGE DISPOSITION: Home with Self Care Discharge Physical Exam: VITAL SIGNS: Blood Pressure 142/67 Pulse 69 Temperature 36.4 ?C (97.5 ?F) (Oral) Respiration 16 Height 160 cm (5' 3) Weight 56.2 kg (123 lb 14.4 oz) [...] EQUIPMENT: None DIET: (more content not included)... [facility] CONSULTon 07-15-2024 CONSULT HNO ID: [id number] Author: JANAY MALDONADO MD Service: Neurology General Author Type: Physician Type: Consults Filed: 07/15/2024 16:43 Note Text: The Teleneurologist or EDWIN is available from 8 am to 5 pm on weekdays. On weekends, at [place] and [place], the Teleneurologist or EDWIN is available from 8 am to 5 pm, [facility] 8 am to 12 pm, [place] 1 pm to 5 pm, [place] 8 am to 12 pm, [place] 1 pm to 5 pm. Statutory holidays do not have teleneuro coverage. [place]: During Off hours for Teleneurology please page (not call) [place] neurolog[facility] [address] workforce consultant for concerns. [place]: During Off hours for Teleneurology please page (not call) [place] neurolog[facility] [phone] workforce consultant for concerns. [facility]: There is no off-hours coverage for Teleneurology. [...] (Temporal) Resp 20 Ht 160 cm (5' 3) Wt 56.2 kg (123 lb 14.4 oz) [...] this patient. Please call for additional assistance. Janay Maldonado MD Staff Neurologist Neurological [place] Patient was seen using telemedicine services on this date. Examination was completed by Teleneurology video ([employer] system) assisted by Teleneurology nurse at bedside. I spent a total of approximately 60 minutes on the date of service that included preparing to see the patient, video evaluation including examination by Teleneurology nurse, completing clinical documentation, obtaining and/or reviewing separately obtained history, counseling and educating the patient/family/caregiv er, ordering medicat (more content not included)... Normal [facility] ECHOon 07-15-2024 Echocardiography Echocardiography Report: Transthoracic Echo [facility] Date of service: 07/15/2024 11:00:49 AM Ordering physician: NELLIE JJ Indication: hypotension Technologist: Sravanthi Purcell RD Interpreting physician: Diamond Morris MD PATIENT: Name: [...] * * Final * * * CC [employer] [facility] Image : [id number] [facility] THERAPY NTon 07-15-2024 THERAPY NT HNO ID: [id number] Author: THAIS CABRALES PT Service: Physical Therapy Author Type: Physical Therapist Type: Therapy (PT/OT/Speech/Resp) Filed: 07/16/2024 14:52 Note Text: Summary: PT evaluation Physical Therapy Evaluation Summary SERVICE DATE: 07/15/2024 SERVICE TIME: 1400 to 1447 ROOM: [place] [address] PT 6 Clicks Score: 18 DISCHARGE RECOMMENDATIONS [...] Reduced mobility-other TREATMENT INTERVENTIONS Evaluation, Therapeutic Activity (10461), Gait Training (89048), Therapeutic Exercise (68655) Timed Code Treatment (minutes): 28 Skilled Treatment Time (minutes): 45 $ Evaluation-Moderate (77061) Billed Units: 1 unit Therapeutic Exercise (60244) Treatment Minutes: 5 $ Therapeutic Exercise (37997) Billed Units: 0 units Therapeutic Activity (36376) Treatment Minutes: 15 $ Therapeutic Activity (59946) Billed Units: 1 unit Gait Training (65837) Treatment Minutes: 8 $ Gait Training (92287) Billed Units: 1 unit Range of Motion: [...] direction/turning, Flexed trunk (more content not included)... [facility] THERAPY NT HNO ID: [id number] Author: [place] OTR/L Service: Occupational Therapy Author Type: Occupational Therapist Type: Therapy (PT/OT/Speech/Resp) Filed: 07/15/2024 14:40 Note Text: Summary: OT eval Occupational Therapy Evaluation Summary SERVICE DATE: 07/15/2024 SERVICE TIME: 1319 to 1403 ROOM: [place] [address] OT 6 Clicks Score: 20 DISCHARGE RECOMMENDATIONS [...] symptoms and signs-other TREATMENT INTERVENTIONS Evaluation, Self Mcc Management (06956) Timed Code Treatment (minutes): 20 Skilled Treatment Time (minutes): 35 TRAINING AND EDUCATION PROVIDED Activity Adaptation/Demolition Expert y Strategies, Assistive Device Use, Adaptive Equipment/DME, [...] to Stand Transf (more content not included)... [facility] THERAPY NT HNO ID: [id number] Author: THAIS CABRALES PT Service: Physical Therapy Author Type: Physical Therapist Type: Therapy (PT/OT/Speech/Resp) Filed: 07/15/2024 11:01 Note Text: Summary: PT missed visit PHYSICAL THERAPY MISSED VISIT SERVICE DATE: 07/15/2024 SERVICE TIME: 1100 ROOM: [id number] [facility]) Patient not seen due to Patient Not Available. Will approach as patient available and appropriate. SIGNATURE: Thais Cabrales PT PATIENT NAME: Lou Oliver DATE: July 15, 2024 TIME: 11:00 AM [facility] ALLIED HEALTHon 07-14-2024 ALLIED HEALTH HNO ID: [id number] Author: ZHANE AMIN, CT Service: Radiology Author Type: Technologist Type: Allied [...] PATIENT PRESENTS WITH AN IMPLANTABLE OR ATTACHED CLEANING SUPERVISOR: No RADIOLOGY DEPARTMENT: CT; Exam(s) Completed: Brain and Spine PERIPHERAL IV DATA: Not applicable SIGNED BY: OBIE Mix July 14, 2024 3:06 PM [facility] HEALTH HNO ID: [id number] Author: NAINA MARAVILLA RT(R) Service: Radiology Author Type: National Coverage Specialist Type: Allied Health Filed: 07/14/2024 14:49 Note [...] PATIENT PRESENTS WITH AN IMPLANTABLE OR ATTACHED CLEANING SUPERVISOR: No RADIOLOGY DEPARTMENT: General X-ray: Exam(s) Completed: Chest X-Ray PERIPHERAL IV DATA: Not applicable SIGNED BY: RT Scottie(Sonal) July 14, 2024 2:49 PM [facility] CBC W Auto Differential pane l (Bld)on 07-14-2024 Basophils (Bld) [#/Vol] 10*3/uL Normal <0.[address] [facility] Comment on above: Order Comment: Speci men Type: BLOOD SPECIMENOrdering Facility: [facility] Address: [address] [place] [address] Performed By: #### 5 7021-8 ####[facility] LABORATORYCLIA [id number] [place] [address] [place] Basophils/100 WBC (Bld) 0.4 % Normal [facility] Comment on above: Order Comment: Speci men Type: BLOOD SPECIMENOrdering Facility: [facility] Address: [address] [place] [address] Performed By: #### 5 7021-8 ####[facility] LABORATORYCLIA [id number] [place] [address] [place] Differential cell count method Nom (Bld) Auto Normal [facility] Comment on above: Order Comment: Speci men Type: BLOOD SPECIMENOrdering Facility: [facility] Address: [address] [place] [address] Performed By: #### 5 7021-8 ####[facility] LABORATORYCLIA [id number] [place] [address] [place] Eosinophils (Bld) [#/Vol] 0.06 10*3/uL Normal <0.46 [facility] Comment on above: Order Comment: Speci men Type: BLOOD SPECIMENOrdering Facility: [facility] Address: [address] [place] [address] Performed By: #### 5 7021-8 ####[facility] LABORATORYCLIA [id number] [address] [place] Eosinophils/100 WBC (Bld) 1.1 % Normal [facility] Comment on above: Order Comment: Speci men Type: BLOOD SPECIMENOrdering Facility: [facility] Address: [address] [place] [address] Performed By: #### 5 7021-8 ####ENRIQUEZ LABORATORYCLIA [id number] [place] [address] [place] Erythrocyte distribution width (RBC) [Ratio] 11.9 % Normal 11.5-15.0 [facility] Comment on above: Order Comment: Speci men Type: BLOOD SPECIMENOrdering Facility: [facility] Address: [address] [place] [address] Performed By: #### 5 7021-8 ####ENRIQUEZ LABORATORYCLIA [id number] [address] [place] Hematocrit (Bld) [Volume fraction] 32.1 % Low 36.0-46.0 [facility] Comment on above: Order Comment: Speci men Type: BLOOD SPECIMENOrdering Facility: [facility] Address: [address] [place] [address] Performed By: #### 5 7021-8 ####ENRIQUEZ LABORATORYCLIA [id number] [address] [place] Hemoglobin (Bld) [Mass/Vol] 10.7 g/dL Low 11.5-15.5 [facility] Comment on above: Order Comment: Speci men Type: BLOOD SPECIMENOrdering Facility: [facility] Address: [address] [place] [address] Performed By: #### 5 7021-8 ####ENRIQUEZ LABORATORYCLIA [id number] [address] [place] Immature granulocytes (Bld) [#/Vol] 10*3/uL Normal <0.10 [facility] Comment on above: Order Comment: Speci men Type: BLOOD SPECIMENOrdering Facility: [facility] Address: [address] [place] [address] Performed By: #### 5 7021-8 ####ENRIQUEZ LABORATORYCLIA [id number] [address] [place] Immature granulocytes/100 WBC (Bld) 0.4 % Normal [facility] Comment on above: Order Comment: Speci men Type: BLOOD SPECIMENOrdering Facility: [facility] Address: [address] [place] [address] Performed By: #### 5 7021-8 ####ENRIQUEZ LABORATORYCLIA [id number] [address] [place] Lymphocytes (Bld) [#/Vol] 1.65 10*3/uL Normal 1.00-4.00 [facility] Comment on above: Order Comment: Speci men Type: BLOOD SPECIMENOrdering Facility: [facility] Address: [address] [place] [address] Performed By: #### 5 7021-8 ####ENRIQUEZ LABORATORYCLIA [id number] [address] [place] Lymphocytes/100 WBC (Bld) 30.9 % Normal [facility] Comment on above: Order Comment: Speci men Type: BLOOD SPECIMENOrdering Facility: [facility] Address: [address] [place] [address] Performed By: #### 5 7021-8 ####ENRIQUEZ LABORATORYCLIA [id number] [address] [place] MCH (RBC) [Entitic mass] 30.9 pg Normal 26.0-34.0 [facility] Comment on above: Order Comment: Speci men Type: BLOOD SPECIMENOrdering Facility: [facility] Address: [address] [place] [address] Performed By: #### 5 7021-8 ####ENRIQUEZ LABORATORYCLIA [id number] [address] MCHC (RBC) [Mass/Vol] 33.3 g/dL Normal 30.5-36.0 [facility] Comment on above: Order Comment: Speci men Type: BLOOD SPECIMENOrdering Facility: [facility] Address: [address] [place] [address] Performed By: #### 5 7021-8 ####ENRIQUEZ LABORATORYCLIA [id number] [address] MCV (RBC) [Entitic vol] 92.8 fL Normal 80.0-100.0 [facility] Comment on above: Order Comment: Speci men Type: BLOOD SPECIMENOrdering Facility: [facility] Address: [address] [place] [address] Performed By: #### 5 7021-8 ####ENRIQUEZ LABORATORYCLIA [id number] [address] Monocytes (Bld) [#/Vol] 0.44 10*3/uL Normal <0.87 [facility] Comment on above: Order Comment: Speci men Type: BLOOD SPECIMENOrdering Facility: [facility] Address: [address] [place] [address] Performed By: #### 5 7021-8 ####ENRIQUEZ LABORATORYCLIA [id number] [place] [address] [place] Monocytes/100 WBC (Bld) 8.2 % Normal [facility] Comment on above: Order Comment: Speci men Type: BLOOD SPECIMENOrdering Facility: [facility] Address: [address] [place] [address] Performed By: #### 5 7021-8 ####ENRIQUEZ LABORATORYCLIA [id number] [place] [address] [place] Neutrophils (Bld) [#/Vol] 3.15 10*3/uL Normal 1.45-7.50 [facility] Comment on above: Order Comment: Speci men Type: BLOOD SPECIMENOrdering Facility: [facility] Address: [address] [place] [address] Performed By: #### 5 7021-8 ####ENRIQUEZ LABORATORYCLIA [id number] [place] [address] [place] Neutrophils/100 WBC (Bld) 59.0 % Normal [facility] Comment on above: Order Comment: Speci men Type: BLOOD SPECIMENOrdering Facility: [facility] Address: [address] [place] [address] Performed By: #### 5 7021-8 ####ENRIQUEZ LABORATORYCLIA [id number] [place] [address] [place] Nucleated RBC (Bld) [#/Vol] 10*3/uL Normal <0.01 [facility] Comment on above: Order Comment: Speci men Type: BLOOD SPECIMENOrdering Facility: [facility] Address: [address] [place] [address] Performed By: #### 5 7021-8 ####ENRIQUEZ LABORATORYCLIA [id number] [place] [address] [place] Nucleated RBC/100 WBC (Bld) [Ratio] 0.0 /100 WBC Normal [facility] Comment on above: Order Comment: Speci men Type: BLOOD SPECIMENOrdering Facility: [facility] Address: [address] [place] [address] Performed By: #### 5 7021-8 ####ENRIQUEZ LABORATORYCLIA [id number] [address] Platelet mean volume (Bld) [Entitic vol] 9.8 fL Normal 9.0-12.7 [facility] Comment on above: Order Comment: Speci men Type: BLOOD SPECIMENOrdering Facility: [facility] Address: [address] [place] [address] Performed By: #### 5 7021-8 ####ENRIQUEZ LABORATORYCLIA [id number] [address] [place] Platelets (Bld) [#/Vol] 187 10*3/uL Normal 150-400 [facility] Comment on above: Order Comment: Speci men Type: BLOOD SPECIMENOrdering Facility: [facility] Address: [address] [place] [address] Performed By: #### 5 7021-8 ####ENRIQUEZ LABORATORYCLIA [id number] [place] [address] [place] RBC (Bld) [#/Vol] 3.46 10*6/uL Low 3.90-5.20 [facility] Comment on above: Order Comment: Speci men Type: BLOOD SPECIMENOrdering Facility: [facility] Address: [address] [place] [address] Performed By: #### 5 7021-8 ####ENRIQUEZ LABORATORYCLIA [id number] [address] [place] WBC (Bld) [#/Vol] 5.34 10*3/uL Normal 3.70-11.00 [facility] Comment on above: Order Comment: Speci men Type: BLOOD SPECIMENOrdering Facility: [facility] Address: [address] [place] [address] Performed By: #### 5 7021-8 ####ENRIQUEZ LABORATORYCLIA [id number] [address] [place] [address] BRAIN WO IVCONon 07-14-[address] BRAIN WO IVCON * * *Final Report* * * DATE OF EXAM: Jul 14 2024 3:11PM [facility] 0504 - CT BRAIN WO IVCON / [...] cervical spine. 3. Chronic findings as detailed. [facility] Transcribe Date/Time: Jul 14 2024 3:33P Dictated by : NELLIE KHALIL MD This examination was interpreted and the report reviewed and electronically signed by: NELLIE KHALIL MD on Jul 14 2024 4:14PM EST [id number] [facility] CT CERVICAL SPINE WO IVCONon 07-14-2024 CT CERVICAL SPINE WO IVCON * * *Final Report* * * DATE OF EXAM: Jul 14 2024 3:11PM [facility] 0505 - CT CERVICAL SPINE WO IVCON [...] cervical spine. 3. Chronic findings as detailed. Pot Fluxer: PSCB Transcribe Date/Time: Jul 14 2024 3:33P Dictated by : NELLIE KHALIL MD This examination was interpreted and the report reviewed and electronically signed by: NELLIE KHALIL MD on Jul 14 2024 4:14PM EST [id number] Normal [facility] Comprehensive metabolic 2000 panelon 07-14-2024 Albumin [Mass/Vol] 4.3 g/dL Normal 3.9-4.9 [facility] Comment on above: Order Comment: Miguel Ai justino Type: BLOOD SPECIMENOrdering Facility: [facility] Address: [address] [id number] Performed By: #### 2 4323-8, 49488-6, [id number], 3016-3 ####[facility] LABORATORYCLIA [id number] [place] [address] [place] ALP [Catalytic activity/Vol] 82 U/L Normal 34-123 [facility] Comment on above: Order Comment: Musa men Type: BLOOD SPECIMENOrdering Facility: [facility] Address: [address] [place] [address] Performed By: #### 2 4323-8, 89421-0, [id number], 3016-3 ####ENRIQUEZ LABORATORYCLIA [id number] [address] [place] [facility] ALT [Catalytic activity/Vol] U/L Low 7-38 [facility] Comment on above: Order Comment: Speci men Type: BLOOD SPECIMENOrdering Facility: [facility] Address: [address] [place] [address] Performed By: #### 2 4323-8, 20636-1, UOT8102, 3016-3 ####ENRIQUEZ LABORATORYCLIA [id number] [place] [address] [place] Anion gap [Moles/Vol] 11 mmol/L Normal 8-15 [facility] Comment on above: Order Comment: Speci men Type: BLOOD SPECIMENOrdering Facility: [facility] Address: [address] [place] [address] Performed By: #### 2 4323-8, , [id number], 3016-3 ####ENRIQUEZ LABORATORYCLIA [id number] [address] OF [facility] AST [Catalytic activity/Vol] 11 U/L Low 13-35 [facility] Comment on above: Order Comment: Speci men Type: BLOOD SPECIMENOrdering Facility: [facility] Address: [address] [place] [address] Performed By: #### 2 4323-8, , KQR5125, 3016-3 ####ENRIQUEZ LABORATORYCLIA [id number] [place] [id number] [place] Bilirubin [Mass/Vol] 0.6 mg/dL Normal 0.2-1.3 [facility] Comment on above: Order Comment: Speci men Type: BLOOD SPECIMENOrdering Facility: [facility] Address: [address] [place] [address] Performed By: #### 2 4323-8, 08536-2, WQK6270, 3016-3 ####ENRIQUEZ LABORATORYCLIA [id number] [place] [address] [place] Calcium [Mass/Vol] 8.9 mg/dL Normal 8.5-10.2 [facility] Comment on above: Order Comment: Speci men Type: BLOOD SPECIMENOrdering Facility: [facility] Address: [address] [place] [address] Performed By: #### 2 4323-8, 47824-4, [id number], 3016-3 ####ENRIQUEZ LABORATORYCLIA [id number] [place] [address] [place] Chloride [Moles/Vol] 103 mmol/L Normal 98-107 [facility] Comment on above: Order Comment: Speci men Type: BLOOD SPECIMENOrdering Facility: [facility] Address: [address] [place] [address] Performed By: #### 2 4323-8, 73015-9, WOT5430, 3016-3 ####DAY[facility] LABORATORYCLIA [id number] [place] [address] [place] CO2 [Moles/Vol] 25 mmol/L Normal 22-30 [facility] Comment on above: Order Comment: Speci men Type: BLOOD SPECIMENOrdering Facility: [facility] Address: [address] [place] [address] Performed By: #### 2 4323-8, 96813-5, BVZ4796, 3016-3 ####DAY[facility] LABORATORYCLIA [id number] [place] [address] [place] Creatinine [Mass/Vol] 0.92 mg/dL Normal 0.58-0.96 [facility] Comment on above: Order Comment: Speci men Type: BLOOD SPECIMENOrdering Facility: [facility] Address: [address] [place], [place] [address] Performed By: #### 2 4323-8, 64016-1, XWH1249, 3016-3 ####ENRIQUEZ LABORATORYCLIA [id number] [address] [place] Creatinine and Glomerular filtration rate.predicted panel (S/P/Bld) 64 mL/min/1.73m??? Normal >=60 [facility] Comment on above: Order Comment: Musa badillo Type: BLOOD SPECIMENOrdering Facility: [facility] Address: [address] [id number] Result Comment: Afia mated Glomerular Filtration Rate [...] actual GFR. Performed By: #### 2 4323-8, 06436-5, PEX0366, 3016-3 ####ENRIQUEZ LABORATORYCLIA [id number] [place] [address] [place] Glucose [Mass/Vol] 90 mg/dL Normal 74-99 [facility] Comment on above: Order Comment: Musa badillo Type: BLOOD SPECIMENOrdering Facility: [facility] Address: [address] [place] [address] Result Comment: The [place] Diabetes Association (ADA) provides guidance for cutoff [...] Standards of Medical Care in Diabetes 2016, [place] [employer]. Diabetes Care. 2016.39(Suppl 1). Performed By: #### 2 4323-8, 82329-8, LJN5655, 3016-3 ####ENRIQUEZ LABORATORYCLIA [id number] [place] [address] [place] Potassium [Moles/Vol] 4.3 mmol/L Normal 3.7-5.1 [facility] Comment on above: Order Comment: Musa badillo Type: BLOOD SPECIMENOrdering Facility: [facility] Address: [address] [id number] Performed By: #### 2 4323-8, 08526-9, EOR4169, 3016-3 ####ENRIQUEZ LABORATORYCLIA [id number] [place] [address] [place] Protein [Mass/Vol] 6.9 g/dL Normal 6.3-8.0 [facility] Comment on above: Order Comment: Speci men Type: BLOOD SPECIMENOrdering Facility: [facility] Address: [address] [place] [address] Performed By: #### 2 4323-8, 31981-9, EHX3509, 3016-3 ####ENRIQUEZ LABORATORYCLIA [id number] [address] [place] Sodium [Moles/Vol] 139 mmol/L Normal 136-144 [facility] Comment on above: Order Comment: Speci men Type: BLOOD SPECIMENOrdering Facility: [facility] Address: [address] [place] [address] Performed By: #### 2 4323-8, 36425-7, WFT6990, 3016-3 ####ENRIQUEZ LABORATORYCLIA [id number] [place] [id number] [place] Urea nitrogen [Mass/Vol] 24 mg/dL High 7-21 [facility] Comment on above: Order Comment: Speci men Type: BLOOD SPECIMENOrdering Facility: [facility] Address: [address] [place] [address] Performed By: #### 2 4323-8, 45881-9, UOD0368, 3016-3 ####ENRIQUEZ LABORATORYCLIA [id number] [place] [id number] [place] ECG COMPLETEon 07-14-2024 ECG COMPLETE Ventricular Rate : 5 7 BPM Atrial Rate : 57 BPM P-R Interval : 172 ms QRS Duration : 86 ms Q-T Interval : 436 ms QTC Calculation(Bazett) : 424 ms Calculated P [place] : 42 degrees Calculated R [place] : -35 degrees Calculated T [place] : 30 degrees POOR DATA QUALITY, INTERPRETATION MAY BE ADVERSELY AFFECTED SINUS BRADYCARDIA LEFT AXIS DEVIATION ABNORMAL ECG no stemi Confirmed by KELLIE HENDERSON DO ([id number]), editor farm journal JAMILA WARD (1941) on 07/15/2024 9:40:11 AM NAME : LOU OLIVER PID : [id number] : 1945 Gender : Female Race : ORD : [id number] Procedure Date : Jul 14 2024 14:34:04 Edit Date : Jul 15 2024 09:40:14 Diagnosis: POOR DATA QUALITY, INTERPRETATION MAY BE ADVERSELY AFFECTED SINUS BRADYCARDIA LEFT AXIS DEVIATION ABNORMAL ECG no stemi Confirmed by KELLIE HENDERSON DO ([id number]), editor farm journal JAMILA WARD (1941) on 07/15/2024 9:40:11 AM Test Reason : Chest Pain Location : 1 : ER ED Overread By : KELLIE HENDERSON DO Edited By : JAMILA WARD Referred By : , Acquired by : tru, [facility] ED NOTEon 07-14-2024 ED NOTE HNO ID: [id number] Author: KYLEE CAT RN Service: Nursing Author Type: Registered Nurse Type: ED Notes Filed: 07/14/2024 14:05 Note Text: Pt presents to ED via EMS LST for c/o fall, pt was in the office building behind [facility] AND fell getting out of her car. Pt DID hit her head. Large posterior hematoma noted to pt skull. Pt rates pain 8/10. [facility] ED NOTE HNO ID: [id number] Author: CYNDEE WELCH, Anna Service: ? Author Type: Knot Borer and National Coverage Specialist Type: ED Notes Filed: 07/14/2024 14:01 Note Text: Bed: ED-02 Expected date: 07/14/24 Expected time: 1:53 PM Means of arrival: [facility] Team Comments: fall [facility] ED PROV NOTEon 07-14-2024 ED PROV NOTE HNO ID: [id number] Author: KELLIE HENDERSON DO Service: Emergency Medicine [...] NONOBSTETRIC 09/1982 Dilation AND curettage EGD W/O [facility] SPEC VARICIES INJ 11/29/2023 PAST SURGICAL [...] 57, normal (more content not included)... Normal [facility] HIGH SENSITIVITY TROPONIN T (INITIAL)on 07-14-2024 Troponin T.cardiac High sensitivity method [Mass/Vol] 11 ng/L Normal <12 [facility] Comment on above: Order Comment: Musa badillo Type: BLOOD SPECIMENOrdering Facility: [facility] Address: [address] [place] [address] Performed By: #### 2 4323-8, 27892-9, ORC5686, 3016-3 ####ENRIQUEZ LABORATORYCLIA [id number] [address] HIGH SENSITIVITY TROPONIN T (SECOND)on 07-14-2024 Troponin T.cardiac High sensitivity method [Mass/Vol] 10 ng/L Normal <12 [facility] Comment on above: Order Comment: Musa badillo Type: BLOOD SPECIMENOrdering Facility: [facility] Address: [address] [place] [address] Performed By: #### L ED6647 ####ENRIQUEZ LABORATORYCLIA [id number] [address] HISTORY PHYSICALon HISTORY PHYSICAL HNO ID: [id number] Author: ALEXA WATERS MD Service: Hospital Medicine Author Type: Nurse Practitioner Type: H&P Filed: 07/15/2024 06:32 Note Text: Attestation signed by Alexa Waters MD at 07/15/2024 6:32 AM I reviewed the plan of care and reviewed the note. Plan of care discussed with the INTER FOLD ROLL CUTTER in detail and I agree with it. Alexa Waters MD [facility] MEDICINE HISTORY AND PHYSICAL EXAM SERVICE DATE: 07/14/2024 SERVICE TIME: 6:27 PM Primary Care Physician: Lucía Rizzo MD NIGHT AND WEEKEND COVERAGE: [place] COVERAGE: Days: [phone], please page attending physician. Nights: [phone], please page [facility] Night coverage pager [phone]. Subjective CHIEF COMPLAINT: Syncope HPI: This is [...] NONOBSTETRIC 09/1982 [facility] 11/29/2023 PAST SURGICAL HISTORY [...] Heart sounds: (more content not included)... Normal [facility] Magn[facility]Pl[facility] Magnesium [Mass/Vol] 2.1 mg/dL Normal 1.7-2.3 [facility] Comment on above: Order Comment: Speci men Type: BLOOD SPECIMENOrdering Facility: [facility] Address: [address] [place] [address], [place] [address] Performed By: #### 2 4323-8, 94224-0, RBJ4044, 3016-3 ####[facility] LABORATORYCLIA [id number] [place] [id number] [facility] TSH SerPl-aCncon 07-14-2024 TSH Qn 1.710 m[IU]/L Normal 0.270-4.200 [facility] Comment on above: Order Comment: Speci men Type: BLOOD SPECIMENOrdering Facility: [facility] Address: [facility] [place] [address] Performed By: #### 2 4323-8, 79158-2, QRK5518, 3016-3 ####[facility] LABORATORYCLIA [id number] [address] [place] XR CHEST 1V FRONTAL PORTon 0 07-14-2024 XR CHEST 1V FRONTAL PORT * * *Final Repo rt* * * DATE OF EXAM: Jul 14 [...] Degenerative changes. IMPRESSION: No acute radiographic abnormality Pot Fluxer: DOMENIC Transcribe Date/Time: Jul 14 2024 2:52P Dictated by : DOMINICK COX MD This examination was interpreted and the report reviewed and electronically signed by: DOMINICK COX MD on Jul 14 2024 2:52PM EST [id number] Normal [facility] MR Brain WO and W contrast I Von 06-16-2024 IMPRESSION: Left frontal convexity meningioma appears similar to the previous study and overall slightly decreased in size compared to the exam from one year ago. No new or progressive neoplasm. Stable signal change in the left frontal operculum. Pot Fluxer: DOMENIC Transcribe Date/Time: Jun 16 2024 11:25A Dictated by : HIRO ALEMAN MD This examination was interpreted and the report reviewed and electronically signed by: HIRO ALEMAN MD on Jun 16 2024 12:01PM [facility] DIVISION OF RADIOLOGY * * *Final Report* * * DATE OF EXAM: Jun 16 2024 10:35AM [facility] 0295 - MRI BRAIN WO/W IVCON / [...] tissues are unremarkable. DIVISION OF RADIOLOGY Provider, [facility] - 06/16/2024 * * *Final Report* * * DATE OF EXAM: Jun 16 2024 10:35AM [facility] 0295 - MRI BRAIN WO/W IVCON / [...] signal change in the left frontal operculum. Pot Fluxer: PSCB Transcribe Date/Time: Jun 16 2024 11:25A Dictated by : HIRO ALEMAN MD This examination was interpreted and the report reviewed and electronically signed by: HIRO ALEMAN MD on Jun 16 2024 12:01PM [facility] Radiology Study observation (narrative) Hi [facility] MR Brain WO and W contrast I VOrdered By: Ccf Provider on 06-16-2024 [facility] CNOVon 06-11-2024 CNOV Office Visit (SPAGWO ) LOU OLIVER ([id number]) 1945 Date Time Provider Department 06/11/24 1:30 PM JAK DIAZ SPAGWO During your visit today, we recorded the following information about you: Pulse Respiration Blood pressure Normal [facility] CNPNon 05-01-2024 CNPN Telephone (AGSPINE3) LOU OLIVER ([id number]) 1945 Date Time Provider Department 05/01/24 THERESA HUNT AGSPINE3 During your visit today, we recorded the following information about you: Prudence Barnhart 05/01/2024 8:09 AM Signed ----- Message from Diane Haji sent at 04/30/2024 4:52 PM EDT ----- Regarding: Spine AND Pain / Prebish, Theresa (DEALMAKER) / Procedure / Injection Spine AND Pain / Prebish, Theresa (DEALMAKER) / Procedure / Injection = Patient: Lou Oliver Date of : 1945 Primary Care Provider: Lucía Rizzo MD Patient has been identified by name and Date of (Y/N): y Patient: Lou Oliver Date of : 1945 Provider for this encounter: Lucía Rizzo MD Reason for the call/escalation: Patient saw Theresa Hunt but wanted to know if she needs to set up her next TPI. She would like a call back to discuss this Was Patient Referred to [facility]/Seek Emergency Treatment (Y/N): n Did Patient Agree (Y/N): n.a Was An Attempt Made To Transfer The Patient To The Office (Y/N): n Were You Able To Reach Someone At The Office (Y/N): n.a If Yes - Patient Was Transferred To (Caregivers Name): n.a If No - Which [facility] Leadership Practice Support Specialist Did You Speak With Regarding This Patient: n.a Was an appointment scheduled (Y/N): n Reason patient was requesting visit (RFV/signs and symptoms/diagnosis) : injection Person calling if other than patient: self Return call to if other than patient: self Best contact number: [phone] Thank you, Diane Haji April 30, 2024 4:53 PM Jade Collins 05/01/2024 10:47 AM Signed Patient was called and spoken with. She was confused when she was scheduled for her next appointment since they didn't schedule her tpi. Patient was wondering if Theresa thinks she needs more injections since she benefots from them.? Patient is scheduled to come in on 06/[address] Diaz for 3 mos follow up and was wondering if she has to wait until then to Dr. Diaz or if an order could be placed now if Theresa so she can be scheduled for that and maybe get it done when she come in? Theresa Vargas APRN.DEALMAKER 05/01/2024 1:09 PM Signed I didn't get the impression she wanted more TPI's ordered at yesterdays appt however, I am happy to have her schedule TPI's periodically. I added an order to be done X3 please schedule every 4-6 weeks. Thanks. Theresa Hunt APRN.DEALMAKER 05/01/2024 1:09 PM Signed Addended by: THERESA HUNT on: 05/01/2024 01:09 PM Modules accepted: Eduar CollinsJade 05/01/2024 1:36 PM Signed Patient was called and informed there are now an order for trigger points in place for her. When she calls we will schedule 3 of them 4-6 weeks apart. Referral will be built. So please schedule from that. Jade Dennis Allergies As of Date: 05/01/2024 Noted Allergy Reaction SULFA (SULFONAMIDE ANTIBIOTICS) 10/26/2005 4 - Hives Date Reviewed: 03/25/2024 Reviewed by: Sayra Mabry MD - Fully Assessed Reason for Visit: Returning Patient's Call [408] Primary Visit Diagnosis:Myofascial pain [M79.18] Order(s):PRE-CERT ORDER (AG) [[id number]] Order #: [id number]: 1 Prescriptions as of 05/01/2024 - ondansetron [...] [F41.1] 04/04 (more content not included)... [facility] CNPNon 04-30-2024 CNPN Telephone (AGSPHWG) LOU OLIVER ([id number]) 1945 F Date Time Provider Department 04/30/24 THERESA HUNT AGSPHWG During your visit today, we recorded the following information about you: Zoltan Gomez 04/30/2024 3:41 PM Signed LVM with patient to call back/[facility]. 2 month follow up. Zoltan Whaley 05/01/2024 2:26 PM Signed LVM (2nd one) with patient to call back/[facility]. 2 month follow up. Zoltan Gomez Allergies [...] Encounter Status:Closed by ZOLTAN GOMEZ on 04/30/24 [facility] STREP A MOLECULAR (POC)on Procedural Control Valid [facility] Strep A (POCT) Negative Negative [facility] CNOVon 02-27-2024 CNOV Office Visit (SPAGWO ) LOU OLIVER ([id number]) 1945 F Date Time Provider Department 02/27/24 1:00 PM JAK DIAZGEULOGIO During your visit today, we recorded the following information about you: Pulse Respiration 79/minute 16/minute Jak Diaz MD 02/27/2024 1:10 PM Signed [facility] Today's Date: 02/27/2024 Last visit: 11/28/2023 Name: Lou Oliver : 1945 Purpose: Follow-up Patient Evaluation - This is an established patient, returning today for continued evaluation and management of the chief complaint noted below Chief complaint: neck pain Referring Clinician: Lucía Rizzo MD Pertinent Past Medical History: Migraine, [...] BID Lidocaine patches, 2 daily, #60 Functional Quaker: Advised soft tissue massage Referrals: No additional [...] (Obtained by Jak Diaz M.D.). Referred by Lucía Rizzo MD, for evaluation AND management of neck pain Duration: 10 years Sudden onset? no, Trauma? no Prior Treatments: Medications (See below), Modalities (eg. Heat, Ice), Physical Therapy , Home Exercise Program , and Activity Modification PT - 12 visits (04/09/2023 - 06/11/2023) Worked for years at a [employer], reports she frequently hunched in her job Seen previously (last on ) by an Anesthesia Pain Physician. She had trigger point injections multiple times, without sustained relief. This is her first evaluation by a [facility] Pain Physician. Takes Tylenol OTC, minimal relief Has Parkinson's Treatment History: PAIN PROCEDURES: DATE PROCEDURE IMPROVEMENT 10/02/2023 RFA, Bilat C4-5 and C5-6 >50% (02/27/2024) (more content not included)... [facility] ANES POSTPROC EVALon 024 ANES POSTPROC EVAL HNO ID: [id number] Author: ROYA ULRICH DO Service: Anesthesiology Author Type: Physician Type: Anesthesia Postprocedure Evaluation Filed: 11/29/2023 11:35 Note Text: POST ANESTHESIA EVALUATION NOTE : 1945 Procedure Summary Date: 11/29/23 Room / Location: [facility] Anesthesia Start: 1011 Anesthesia Stop: 1034 Procedure: EGD DIAGNOSTIC Diagnosis: Dysphagia, unspecified type Abnormal findings on diagnostic imaging of digestive system (Dysphagia) Scheduled Providers: Claudio Allen MD Responsible Provider: Roya Ulrich DO [...] November 29, 2023 TIME: 11:35 AM CSN: [id number] [facility] ANES PRE-OPon 11-29-2023 ANES PRE-OP HNO ID: [id number] Author: ROYA ULRICH DO Service: Anesthesiology Author Type: Physician Type: Anesthesia Preprocedure Evaluation Filed: 11/29/2023 10:03 Note Text: ANESTHESIOLOGY DAY OF SURGERY NOTE : 1945 Procedure Information Date/Time: 11/29/23 1000 Scheduled providers: Claudio Allen MD Procedure: EGD DIAGNOSTIC Location: [facility] Estimated body mass index is 22.14 kg/m? as calculated from the following: Height as of 11/19/23: 162.6 cm (5' 4). Weight as of 11/19/23: 58.5 kg (129 [...] November 29, 2023 TIME: 10:03 AM CSN: [id number] [facility] EGD Study observation Narrat iveon 11-29-2023 [facility] SURGICAL PATHOLOGYon 024 CASE REPORT [facility] Comment on above: Order Comment: Speci men Type: TISSUE SPECIMENOrdering Facility: [facility] Address: [address] [place] [address] Result Comment: Surg [facility] Pathology Report Case: [id number] Authorizing Provider: Claudio Allen MD Collected: 11/29/2023 10:25 AM Ordering Location: [facility] Received: 12/02/2023 01:46 PM Pathologist: Gisselle Lopez MD Specimen: STOMACH BIOPSY, r/o h pylori Performed By: #### S ####[facility] LABORATORYCLIA [id number] [place] [address] FINAL DIAGNOSIS [facility] Comment on above: Order Comment: Speci men Type: TISSUE SPECIMENOrdering Facility: [facility] Address: [address] [place] [address] Result Comment: Stom ach, biopsies: - Minimal chronic gastritis. Negative for morphologic features of Helicobacter pylori on routine staining. Performed By: #### S ####[facility] LABORATORYCLIA [id number] [address] FINAL PERFORMING LAB Normal [facility] Comment on above: Order Comment: Speci men Type: TISSUE SPECIMENOrdering Facility: [facility] Address: [address] [place] [address] Result Comment: Diag nostic interpretation performed at [facility], [address] [place] [address] CLIA# [id number] Principal Quality Engineer: Gerhard Willis M.D. Performed By: #### S ####[facility] LABORATORYCLIA [id number] [address] GROSS DESCRIPTION [facility] Comment on above: Order Comment: Speci men Type: TISSUE SPECIMENOrdering Facility: [facility] Address: [address] [place] [address] Result Comment: A. S TOMACH BIOPSY Received in formalin labeled stomach biopsy are multiple lilly soft segments of tissue aggregating to 0.7 x 0.4 x 0.1 cm. The specimens are totally submitted in formalin in 1 cassette. Gross examination performed at [facility], [address] [place] [address] KVB December 02, 2023 2:22 PM Performed By: #### S ####[facility] LABORATORYCLIA [id number] [address] OF [place] Upper GI endoscopyon 024 Upper GI endoscopy [facility] Gastrointestinal Endoscopy Patient Name: Lou Oliver Procedure Date: 11/29/2023 9:44 AM Date of : 1945 Admit Type: Outpatient Room: [facility] 23 Gender: Female Note Status: Finalized Attending MD: Claudio Allen MD, [id number] Procedure: Upper GI endoscopy Indications: Dysphagia, Heartburn Providers: Claudio Allen MD Patient Profile: This is a 78 year old female. Refer to note in patient chart for documentation of history and physical. Referring Physician: Era Gagnon (pa) (Referring MD) Medicines: Monitored Anesthesia Care Complications: [...] pathology results. Procedure Code(s): --- Professional --- 53113, Esophagogastroduodenos copy, flexible, transoral; with transendoscopic balloon dilation of esophagus (less than 30 mm diameter) 27092, 59, Esophagogastroduodenos copy, flexible, transoral; with biopsy, single or multiple --- Technical --- 51031, Esophagogastroduodenos copy, flexible, transoral; with transendoscopic balloon dilation of esophagus (less than 30 mm diameter) 40209, 59, Esophagogastroduodenos copy, flexible, transoral; with biopsy, single or multiple Diagnosis Code(s): --- Professional --- Q39.9, Congenital malformation of esophagus, unspecified K22.2, Esophageal obstruction R13.10, Dysphagia, unspecified R12, Heartburn --- Technical --- Q39.9, Congenital malformation of esophagus, unspecified K22.2, Esophageal obstruction R13.10, Dysphagia, unspecified R12, Heartburn CPT copyright 2020 [employer]. All rights reserved. The codes documented in this report are preliminary and upon die filer review may be revised to meet current compliance requirements. Attending Participation: I personally performed the entire procedure. Scope In: 10:16:08 AM Scope Out: 10:24:34 AM MD Claudio Seymour MD 11/29/2023 10:37:50 AM This report has been signed electronically by Claudio Allen MD Number of Addenda: 0 Note Initiated On: 11/29/2023 9:44 AM [facility] CNOVon 11-28-2023 CNOV Office Visit (SPAGWO ) LOU OLIVER ([id number]) 1945 Date Time Provider Department 11/28/23 1:00 PM JAK DIAZ During your visit today, we recorded the following information about you: Pulse Respiration 86/minute 16/minute Jak Diaz MD 11/28/2023 1:23 PM Signed [facility] Today's Date: 11/28/2023 Last visit: 07/04/2023 08/13/2023 , 08/28/2023 , 10/31/2023 Name: Lou Oliver : 1945 Purpose: Follow-up Patient Evaluation - This is an established patient, returning today for continued evaluation and management of the chief complaint noted below Chief complaint: neck pain Referring Clinician: Lucía Rizzo MD Pertinent Past Medical History: Migraine, [...] C4-5 and C5-6 Pain level today: 11/30 Pain Intensity 0 - I have no [...] Mobic contraindicated due to Sulfa allergy) Functional Quaker: No changes-continue current regimen Depending on response [...] Pain Descriptio (more content not included)... [facility] Absolute lymphocyte countOrd ered By: Dennise Ramires on 09-20-2023 Lymphocytes Auto (Unsp spec) [#/Vol] 0.69 10*3/uL 0.83-4.51 [facility] Amorphous sediment detection in urine sediment by light microscopyOrdered By: Dennise Ramires on 09-20-2023 Amorphous sediment LM Ql (Urine sed) 1+ PHOS [facility] Basophil percentageOrdered B y: Dennise Ramires on 09-20-2023 Basophil percentage 25-50 SEEN /hpf 0-5 [facility] Basophils/100 WBC (Bld) 0.2 % 0-1 [facility] Chloride [Moles/Vol] 106 mmol[facility]L 98-107 [facility] Eosinophils/100 WBC (Bld) 0.2 % 0-5 [facility] Glucose [Mass/Vol] 122 mg/dL 74-106 [facility] Comment on above: Fasting Glucose resu lt from 100 to 125 mg/dL suggests IMPAIRED HOMEOSTASIS per A.D.A. criteria. Neutrophils (Bld) [#/Vol] 4.2 10*3/uL 2.0-7.7 [facility] Neutrophils/100 WBC (Bld) 80.0 % 47-70 [facility] Potassium [Moles/Vol] 3.6 mmol/L 3.5-5.1 [facility] Sodium [Moles/Vol] 137 mmol/L 136-145 [facility] WBC (Bld) [#/Vol] 5.3 10*3/uL 4.4-11.0 [facility] Bilirubin Test strip Ql (U)O rdered By: Dennise Ramires on 09-20-2023 Bilirubin Ql (U) 1 mg/dL Negative [facility] Comment on above: COLOR OF URINE MAY A FFECT DIPSTICK RESULTS. Blood erythrocytes count (nu mber/volume)Ordered By: Dennise Ramires on 09-20-2023 RBC (Bld) [#/Vol] 3.66 10*6/uL 4.2-5.4 [facility] Blood hemoglobin measurement (mass/volume)Ordered By: Dennise Ramires on 09-20-2023 Hemoglobin (Bld) [Mass/Vol] 11.1 g/dL 12.0-15.0 [facility] Blood lymphocytes/100 leukoc ytesOrdered By: Dennise Ramires on 09-20-2023 Lymphocytes/100 WBC (Bld) 13.0 % 19-41 [facility] Blood monocytes/100 leukocyt esOrdered By: Dennise Ramires on 09-20-2023 Monocytes/100 WBC (Bld) 6.2 % 0-10 [facility] Blood platelet mean volumeOr dered By: Dennise Ramires on 09-20-2023 Platelet mean volume (Bld) [Entitic vol] 9.7 fL 6.2-12.0 [facility] Determination of erythrocyte mean corpuscular volume (MCV)Ordered By: Dennise Ramires on 09-20-2023 MCV (RBC) [Entitic vol] 91.8 fL 81-99 [facility] Hematocrit Auto (Bld) [Volum e fraction]Ordered By: Dennise Ramires on 09-20-2023 Hematocrit (Bld) [Volume fraction] 33.6 % 37-47 [facility] Influenza virus A and B and SARS-CoV-2 (COVID-19) Ag panel - Upper respiratory specimOrdered By: Dennise Ramires on 09-20-2023 SARS-CoV-2 & FLU Antigen (Rapid) SARS-CoV-2 (COVID 19) [facility] Ketones Test strip Ql (U)Ord ered By: Dennise Ramires on 09-20-2023 Ketones Ql (U) 15 mg/dl Negative [facility] Laboratory - Chemistry and C hemistry - challengeOrdered By: Dennise Ramires on 09-20-2023 CO2 [Moles/Vol] 26.0 mmol/L 21.0-32.0 [facility] Urea nitrogen/Creatinine [Mass ratio] 20.7 mg/mg 10-20 [facility] Laboratory - Hematology and Cell countsOrdered By: Dennise Ramires on 09-20-2023 Erythrocyte distribution width (RBC) [Entitic vol] 40.9 fL 35.1-43.9 [facility] Erythrocyte distribution width (RBC) [Ratio] 12.1 % 11.6-14.6 [facility] Immature granulocytes/100 WBC (Bld) 0.400 % 0.0-0.9 [facility] Comment on above: IG% - Immature Granu locytes (promyelocytes, myelocytes and metamyelocytes) > 1% indicates that a LEFT SHIFT is Present. MCH (RBC) [Entitic mass] 30.3 pg 27.0-32.0 [facility] Nucleated RBC/100 WBC (Bld) [Ratio] 0 % 0-5 [facility] MCHC Auto (RBC) [Mass/Vol]Or dered By: Dennise Ramires on 09-20-2023 MCHC (RBC) [Mass/Vol] 33.0 g/dL 32-36 [facility] Mucus LM Ql (Urine sed)Order ed By: Dennise Ramires on 09-20-2023 Mucus Ql (Urine sed) 0 SEEN /hpf [facility] Nitrite Test strip Ql (U)Ord ered By: Dennise Ramires on 09-20-2023 Nitrite Ql (U) Negative Negative [facility] No Panel InformationOrdered By: Dennise Ramires on 09-20-2023 Estimated Creatinine Clearance Calc 46.76 ml/min [facility] Estimated GFR (MDRD) Amer 81 mL/min >60 [facility] Comment on above: GFR Calc Estimated GFR (MDRD) Non-Af Amer 67 mL/min >60 [facility] Comment on above: Non- GFR Calc Platelets bldOrdered By: Michelle Ramires on 09-20-2023 Platelets (Bld) [#/Vol] 188 10*3/uL 150-450 [facility] Protein Test strip Ql (U)Ord ered By: Dennise Ramires on 09-20-2023 Protein Ql (U) 30 mg/dl Negative [facility] Serum or plasma calcium cinthia urement (mass/volume)Ordered By: Dennise Ramires on 09-20-2023 Calcium [Mass/Vol] 8.5 mg/dL 8.5-10.1 [facility] Serum or plasma creatinine m easurement (mass/volume)Ordered By: Dennise Ramires on 09-20-2023 Creatinine [Mass/Vol] 0.87 mg/dL 0.55-1.02 [facility] Comment on above: The validity of the calculated GFR & GFRAA in patients over 70 years has not been determined. Clinical correlation is essential. Serum or plasma urea nitroge n measurement (mass/volume)Ordered By: Dennise Ramires on 09-20-2023 Urea nitrogen [Mass/Vol] 18 mg/dL 7-18 [facility] Squamous epithelial cells de tection in urine sediment by light microscopyOrdered By: Dennise Ramires on 09-20-2023 Epithelial cells.squamous LM Ql (Urine sed) 0-5 SEEN /hpf 5-10 [facility] Thin prep Papanicolaou smear with manual screeningOrdered By: Dennise Ramires on 09-20-2023 Thin prep Papanicolaou smear with manual screening 5 5-15 [facility] Urine blood detectionOrdered By: Dennise Ramires on 09-20-2023 RBC Ql (U) 150 /ul Negative [facility] RBC Ql (U) 10-25 SEEN /hpf 0-5 [facility] Urine clarityOrdered By: Michelle Ramires on 09-20-2023 Clarity (U) Sl. Cloudy Clear [facility] Urine color determinationOrd ered By: Dennise Ramires on 09-20-2023 Color (U) Yellow Yellow [facility] Urine glucose detectionOrder ed By: Dennise Ramires on 09-20-2023 Glucose Ql (U) Normal mg/dl Normal [facility] Urine leukocyte esterase det ection by dipstickOrdered By: Dennise Ramires on 09-20-2023 Leukocyte esterase Test strip Ql (U) 100 /ul Negative [facility] Urine pHOrdered By: Dennise Ramires on 09-20-2023 pH (U) 7.0 [pH] 5.0 - 8.0 [facility] Urine sediment bacteria coun t by microscopy (number/high power field)Ordered By: Dennise Ramires on 09-20-2023 Bacteria LM.HPF (Urine sed) [#/Area] RARE /hpf None Seen [facility] Urine specific gravity measu rementOrdered By: Dennise Ramires on 09-20-2023 Specific gravity (U) [Rel density] 1.010 1.002-1.030 [facility] Urobilinogen Auto test strip Ql (U)Ordered By: Dennise Ramires on 09-20-2023 Urobilinogen Ql (U) 4 mg/dl Normal [facility] CNTHERAPYon 09-17-2023 CNTHERAPY OT/PT/Speech Visit (SPMBME) LOU OLIVER ([id number]) 1945 F Date Time Provider Department 09/17/23 9:30 AM NANO SCHUSTERBME Date Time Provider Department Center 09/17/2023 9:30 AM [id number] YOSTSPMBME [facility] Reason for Visit: Speech Instrumental Swallow Eval [3660] Speech Discharge [3488] Primary Visit Diagnosis:Dysphagia, unspecified type [R13.10] Other Visit Diagnosis:Parkinson's disease, unspecified whether dyskinesia present, unspecified whether manifestations fluctuate [G20.A1] Allergies As of Date: 09/17/2023 Noted Allergy Reaction SULFA (SULFONAMIDE ANTIBIOTICS) 10/26/2005 4 - Hives Date Reviewed: 08/28/2023 Reviewed by: Estelle Dodge APRN.DEALMAKER - Fully Assessed Prescriptions as of 09/17/2023 [...] MULTIVITAMIN TAB Take by mouth. Letter Text [facility] XR MOD BARIUM SWALLOW W JACQUE [place] [...] and Hearing therapist report for further evaluation Pot Fluxer: DOMENIC Transcribe Date/Time: Sep 18 2023 1:47P Dictated by : HOSEA STEWART DO This examination was interpreted and the report reviewed and electronically signed by: HOSEA STEWART DO on Sep 18 2023 1:50PM EST [id number] [facility] CNTHERAPYon 08-01-2023 CNTHERAPY OT/PT/Speech Visit (SPEMML) LOU OLIVER ([id number]) 1945 F Date Time Provider Department 08/01/23 1:30 PM NABEEL FRANCIS Date Time Provider Department Center 08/01/2023 1:30 PM [id number] FRANCIS [facility] Reason for Visit: Speech Evaluation [1647] Speech Discharge [1868] Visit Diagnoses:Parkinson's disease, unspecified whether dyskinesia present, [...] TAB Take by mouth. Letter Text Normal [facility] Absolute lymphocyte countOrd ered By: Bay Barton on 05-31-2023 Lymphocytes Auto (Unsp spec) [#/Vol] 1.42 10*3/uL 0.83-4.51 [facility] Basophil percentageOrdered B y: Bay Barton on 05-31-2023 Basophils/100 WBC (Bld) 0.4 % 0-1 [facility] Chloride [Moles/Vol] 107 mmol/L 98-107 [facility] Eosinophils/100 WBC (Bld) 1.2 % 0-5 [facility] Glucose [Mass/Vol] 113 mg/dL 74-106 [facility] Comment on above: Fasting Glucose resu lt from 100 to 125 mg/dL suggests IMPAIRED HOMEOSTASIS per A.D.A. criteria. Neutrophils (Bld) [#/Vol] 3.7 10*3/uL 2.0-7.7 [facility] Neutrophils/100 WBC (Bld) 65.5 % 47-70 [facility] Potassium [Moles/Vol] 3.9 mmol/L 3.5-5.1 [facility] Sodium [Moles/Vol] 138 mmol/L 136-145 [facility] WBC (Bld) [#/Vol] 5.6 10*3/uL 4.4-11.0 [facility] Blood erythrocytes count (nu mber/volume)Ordered By: Bay Barton on 05-31-2023 RBC (Bld) [#/Vol] 3.37 10*6/uL 4.2-5.4 [facility] Blood hemoglobin measurement (mass/volume)Ordered By: Bay Barton on 05-31-2023 Hemoglobin (Bld) [Mass/Vol] 10.7 g/dL 12.0-15.0 [facility] Blood lymphocytes/100 leukoc ytesOrdered By: Bay Barton on 05-31-2023 Lymphocytes/100 WBC (Bld) 25.2 % 19-41 [facility] Blood monocytes/100 leukocyt esOrdered By: Bay Barton on 05-31-2023 Monocytes/100 WBC (Bld) 7.3 % 0-10 [facility] Blood platelet mean volumeOr dered By: Bay Barton on 05-31-2023 Platelet mean volume (Bld) [Entitic vol] 9.9 fL 6.2-12.0 [facility] Determination of erythrocyte mean corpuscular volume (MCV)Ordered By: Bay Barton on 05-31-2023 MCV (RBC) [Entitic vol] 92.6 fL 81-99 [facility] Hematocrit Auto (Bld) [Volum e fraction]Ordered By: Bay Barton on 05-31-2023 Hematocrit (Bld) [Volume fraction] 31.2 % 37-47 [facility] Laboratory - Chemistry and C hemistry - challengeOrdered By: Bay Barton on 05-31-2023 CO2 [Moles/Vol] 28.0 mmol/L 21.0-32.0 [facility] Urea nitrogen/Creatinine [Mass ratio] 18.2 mg/mg 10-20 [facility] Laboratory - Hematology and Cell countsOrdered By: Bay Barton on 05-31-2023 Erythrocyte distribution width (RBC) [Entitic vol] 41.5 fL 35.1-43.9 [facility] Erythrocyte distribution width (RBC) [Ratio] 12.1 % 11.6-14.6 [facility] Immature granulocytes/100 WBC (Bld) 0.400 % 0.0-0.9 [facility] Comment on above: IG% - Immature Granu locytes (promyelocytes, myelocytes and metamyelocytes) > 1% indicates that a LEFT SHIFT is Present. MCH (RBC) [Entitic mass] 31.8 pg 27.0-32.0 [facility] Nucleated RBC/100 WBC (Bld) [Ratio] 0 % 0-5 [facility] MCHC Auto (RBC) [Mass/Vol]Or dered By: Bay Barton on 05-31-2023 MCHC (RBC) [Mass/Vol] 34.3 g/dL 32-36 [facility] No Panel InformationOrdered By: Bay Barton on 05-31-2023 Estimated Creatinine Clearance Calc 36.98 ml/min [facility] Estimated GFR (MDRD) Amer 62 mL/min >60 [facility] Comment on above: GFR Calc Estimated GFR (MDRD) Non-Af Amer 51 mL/min >60 [facility] Comment on above: Non- GFR Calc Troponin I High Sensitivity 4 pg/mL 3.0-54.0 [facility] Comment on above: Please Note: New Diane t Units and Gender Specific Reference Ranges. For more information see Policy Stat Procedure [place] High Sensitivity Troponin (TNIH) and attachments. Platelets bldOrdered By: Ozzie Barton on 05-31-2023 Platelets (Bld) [#/Vol] 182 10*3/uL 150-450 [facility] Serum or plasma calcium cinthia urement (mass/volume)Ordered By: Bay Barton on 05-31-2023 Calcium [Mass/Vol] 8.4 mg/dL 8.5-10.1 [facility] Serum or plasma creatinine m easurement (mass/volume)Ordered By: Bay Barton on 05-31-2023 Creatinine [Mass/Vol] 1.10 mg/dL 0.55-1.02 [facility] Comment on above: The validity of the calculated GFR & GFRAA in patients over 70 years has not been determined. Clinical correlation is essential. Serum or plasma urea nitroge n measurement (mass/volume)Ordered By: Bay Barton on 05-31-2023 Urea nitrogen [Mass/Vol] 20 mg/dL 7-18 [facility] Thin prep Papanicolaou smear with manual screeningOrdered By: Bay Barton on 05-31-2023 Thin prep Papanicolaou smear with manual screening 3 - [facility] No Panel InformationOrdered By: [facility] Provider on 04-08-2023 [facility] XR Cervical spine AP and Lat eral [...] T1/T2 13th T7/T8. DIVISION OF RADIOLOGY 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 [facility] Trans[facility] Date/Time: Apr 08 2023 3:48P Dictated by : ANA MARIA JALLOH MD This examination was interpreted and the report reviewed and electronically signed by: ANA MARIA JALLOH MD on Apr 08 2023 3:55PM [facility] XR Thoracic spine AP and Lat [facility] 04-08-2023 * * *Final Report* * * [...] T1/T2 13th T7/T8. 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 Pot Fluxer: [facility] Transcribe Date/Time: Apr 08 2023 3:48P Dictated by : ANA MARIA JALLOH MD This examination was interpreted and the report reviewed and electronically signed by: ANA MARIA JALLOH MD on Apr 08 2023 3:55PM EST [facility] No Panel Informationon 04-05 Radiology Study observation (narrative) [facility] Basic metabolic 2000 panelon 03-21-2023 Anion gap [Moles/Vol] 10 mmol/L 9 - 18 mmol/L [facility] Calcium [Mass/Vol] 9.2 mg/dL 8.5 - 10. 2 mg/dL [facility] Chloride [Moles/Vol] 105 mmol/L 97 - 10 5 mmol/L [facility] CO2 [Moles/Vol] 24 mmol/L 22 - 30 mmol/L [facility] Creatinine [Mass/Vol] 0.74 mg/dL 0.58 - 0.96 mg/dL [facility] Estimated Glomerular Filtration Rate 84 mL/min/1.73m >=60 mL/min/1.73m [facility] Glucose [Mass/Vol] 94 mg/dL 74 - 99 mg/dL [facility] Potassium [Moles/Vol] 4.1 mmol/L 3.7 - 5.1 mmol/L [facility] Sodium [Moles/Vol] 139 mmol/L 136 - 144 mmol/L [facility] Urea nitrogen [Mass/Vol] 19 mg/dL 7 - 21 mg/d L [facility] TSH BLDon 03-21-2023 TSH Qn 1.010 m[IU]/L 0.270 - 4.200 mIU/L [facility] CT BRAIN WO IVCONon 08-07-20 [facility] MRI BRAIN WO/W IVCONon 03-26 [facility] Absolute lymphocyte counton 10-04-2020 Lymphocytes Auto (Unsp spec) [#/Vol] 1.46 10*3/uL 0.83-4.51 [facility] Work Phone: Automated blood hematocrit ( percentage)on 10-04-2020 Hematocrit (Bld) [Volume fraction] 35.1 % 37-47 [facility] Work Phone: Basophil percentageon 2019 Basophils/100 WBC (Unsp spec) 0.4 % 0-1 [facility] Work Phone: Blood erythrocytes count (nu mber/volume)on 10-04-2020 RBC (Bld) [#/Vol] 3.88 M/mm3 4.2-5.4 [facility] Work Phone: Blood hemoglobin measurement (mass/volume)on 10-04-2020 Hemoglobin (Bld) [Mass/Vol] 12.2 g/dL 12.0-15.0 [facility] Work Phone: Blood platelet mean volumeon 10-04-2020 Platelet mean volume (Bld) [Entitic vol] 9.7 fL 6.2-12.0 [facility] Work Phone: Hematologyon 10-04-2020 Lymphocytes/100 WBC (Bld) 30.9 % 19-41 [facility] Work Phone: MCH (RBC) [Entitic mass] 31.4 pg 27.0-32.0 [facility] Work Phone: Monocytes/100 WBC (Bld) 6.8 % 0-10 [facility] Work Phone: Neutrophils/100 WBC (Bld) 60.9 % 47-70 [facility] Work Phone: Lymphocyte percentageon 12 Chloride [Moles/Vol] 111 mmol/L 98-107 [facility] Work Phone: Eosinophils/100 WBC (Bld) 0.8 % 0-5 [facility] Work Phone: Glucose [Mass/Vol] 92 mg/dL 74-106 [facility] Work Phone: Comment on above: Please note revised GLUCOSE reference range effective 2017. Neutrophils (Bld) [#/Vol] 2.9 10*3/uL 2.0-7.7 [facility] Work Phone: Potassium [Moles/Vol] 4.0 mmol/L 3.5-5.1 [facility] Work Phone: Sodium [Moles/Vol] 142 mmol/L 136-145 [facility] Work Phone: WBC (Bld) [#/Vol] 4.7 10*3/uL 4.4-11.0 [facility] Work Phone: MCHC [Mass/volume] by Automa sylvie counton 10-04-2020 MCHC (RBC) [Mass/Vol] 34.8 g/dL 32-36 [facility] Work Phone: MCV (mean corpuscular volume ) determinationon 10-04-2020 MCV (RBC) [Entitic vol] 90.5 fL 81-99 [facility] Work Phone: Metabolic Panelon 10-04-2020 CO2 [Moles/Vol] 24.0 mmol/L 21.0-32.0 [facility] Work Phone: Magnesium [Mass/Vol] 2.3 mg/dL 1.6-2.6 [facility] Work Phone: Urea nitrogen/Creatinine [Mass ratio] 23.6 RATIO 10-20 [facility] Work Phone: Otheron 10-04-2020 Erythrocyte distribution width (RBC) [Entitic vol] 38.7 fL 35.1-43.9 [facility] Work Phone: Erythrocyte distribution width (RBC) [Ratio] 11.7 % 11.6-14.6 [facility] Work Phone: Estimated Creatinine Clearance Calc 47.89 ml/min [facility] Work Phone: Estimated GFR (MDRD) Amer 80 mL/min >60 [facility] Work Phone: Comment on above: GFR Calc Estimated GFR (MDRD) Non-Af Amer 66 mL/min >60 [facility] Work Phone: Comment on above: Non- GFR Calc Immature granulocytes/100 WBC (Bld) 0.200 % 0.0-0.9 [facility] Work Phone: Comment on above: IG% - Immature Granu locytes (promyelocytes, myelocytes and metamyelocytes) > 1% indicates that a LEFT SHIFT is Present. Nucleated RBC/100 WBC (Bld) [Ratio] 0 % 0-5 [facility] Work Phone: Platelets bldon 10-04-2020 Platelets (Bld) [#/Vol] 236 10*3/uL 150-450 [facility] Work Phone: Serum or plasma calcium cinthia urement (mass/volume)on 10-04-2020 Calcium [Mass/Vol] 9.4 mg/dL 8.5-10.1 [facility] Work Phone: Serum or plasma creatinine m easurement (mass/volume)on 10-04-2020 Creatinine [Mass/Vol] 0.89 mg/dL 0.55-1.02 [facility] Work Phone: Comment on above: The validity of the calculated GFR & GFRAA in patients over 70 years has not been determined. Clinical correlation is essential. Serum or plasma troponin i.c ardiac measurement (mass/volume)on 10-04-2020 Troponin I.cardiac [Mass/Vol] ng/mL <0.045 [facility] Work Phone: Comment on above: TROPONIN-I EXPECTED VALUES <0.045 Negative 0.045 - 0.590 Consistent with Cardiac Damage > OR = 0.600 Critical Value Not every elevated troponin is indicative of TN. These values should be used with clinical judgement in examining the patient's clinical picture for diagnosis. To establish a diagnosis of TN versus myocardial injury, there must be a demonstrated rise and/or fall in the troponin values, in addition to ischemic symptoms, EKG changes, new regional wall motion abnormality, and/or angiographical evidence. PLEASE NOTE: REFERENCE RANGES EDITED 18 Serum or plasma urea nitroge n measurement (mass/volume)on 10-04-2020 Urea nitrogen [Mass/Vol] 21 mg/dL 05-07 [facility] Work Phone: Thin prep Papanicolaou smear with manual screeningon 10-04-2020 Anion gap [Moles/Vol] 7 03-04 [facility] Work Phone: Vital Signs Date Time Vital Sign Value Performing Clinician Facility 06-04-2025 11:59-0400 Body mass index (BMI) [Ratio] 22.46 kg/m2 Isi Moomaw TILE SETTER SUPERVISOR.DEALMAKER Work Phone: [facility] 06-04-2025 11:59-0400 Body temperature 99 [degF] Isi Moomaw TILE SETTER SUPERVISOR.DEALMAKER Work Phone: [facility] 06-04-2025 11:59-0400 Body weight 57.5 kg Isi Moomaw TILE SETTER SUPERVISOR.DEALMAKER Work Phone: [facility] 06-04-2025 11:59-0400 Diastolic blood pressure 62 mm[Hg] Isi Moomaw TILE SETTER SUPERVISOR.DEALMAKER Work Phone: [facility] 06-04-2025 11:59-0400 Heart rate 79 /min Isi Moomaw TILE SETTER SUPERVISOR.DEALMAKER Work Phone: [facility] 06-04-2025 11:59-0400 Respiratory rate 20 /min Iis Moomaw TILE SETTER SUPERVISOR.DEALMAKER Work Phone: [facility] 06-04-2025 11:59-0400 SaO2% (BldA) [Mass fraction] 95 % Isi Moomaw TILE SETTER SUPERVISOR.DEALMAKER Work Phone: [facility] 06-04-2025 11:59-0400 Systolic blood pressure 101 mm[Hg] Isi Moomaw TILE SETTER SUPERVISOR.DEALMAKER Work Phone: [facility] 04-06-2025 10:45-0400 Body mass index (BMI) [Ratio] 22.6 kg/m2 Lucía Rizzo MD Work Phone: [facility] 04-06-2025 10:45-0400 Body weight 57.88 kg Lucía Rizzo MD Work Phone: [facility] 04-06-2025 10:45-0400 Diastolic blood pressure 66 mm[Hg] Lucía Rizzo MD Work Phone: [facility] 04-06-2025 10:45-0400 Heart rate 71 /min Lucía Rizzo MD Work Phone: [facility] 04-06-2025 10:45-0400 Respiratory rate 16 /min Lucía Rizzo MD Work Phone: [facility] 04-06-2025 10:45-0400 SaO2% (BldA) [Mass fraction] 98 % Lucía Rizzo MD Work Phone: [facility] 04-06-2025 10:45-0400 Systolic blood pressure 106 mm[Hg] Lucía Rizzo MD Work Phone: [facility] 01-04-2025 08:56-0400 Body mass index (BMI) [Ratio] 22.82 kg/m2 Lucía Rizzo MD Work Phone: [facility] 01-04-2025 08:56-0400 Body weight 58.42 kg Lucía Rizzo MD Work Phone: [facility] 01-04-2025 08:56-0400 Diastolic blood pressure 67 mm[Hg] Lucía Rizzo MD Work Phone: [facility] 01-04-2025 08:56-0400 Heart rate 85 /min Lucía Rizzo MD Work Phone: [facility] 01-04-2025 08:56-0400 Respiratory rate 16 /min Lucía Rizzo MD Work Phone: [facility] 01-04-2025 08:56-0400 SaO2% (BldA) [Mass fraction] 97 % Lucía Rizzo MD Work Phone: [facility] 01-04-2025 08:56-0400 Systolic blood pressure 113 mm[Hg] Lucía Rizzo MD Work Phone: [facility] 09-01-2024 11:33-0500 Heart rate 70 /min Jean Carlos Bogner PA-C Work Phone: [facility] Comment on above: provider manual recheck 09-01-2024 11:17-0500 Body mass index (BMI) [Ratio] 21.43 kg/m2 Jean Carlos Bogner PA-C Work Phone: [facility] 09-01-2024 11:17-0500 Body temperature 96.6 [degF] Jean Carlos Bogner PA-C Work Phone: [facility] 09-01-2024 11:17-0500 Body weight 54.88 kg Jean Carlos Bogner PA-C Work Phone: [facility] 09-01-2024 11:17-0500 Diastolic blood pressure 70 mm[Hg] Jean Carlos Bogner PA-C Work Phone: [facility] 09-01-2024 11:17-0500 Respiratory rate 16 /min Jean Carlos Bogner PA-C Work Phone: [facility] 09-01-2024 11:17-0500 SaO2% (BldA) [Mass fraction] 99 % Jean Carlos Bogner PA-C Work Phone: [facility] 09-01-2024 11:17-0500 Systolic blood pressure 113 mm[Hg] Jean Carlos Bogner PA-C Work Phone: [facility] 08-24-2024 09:00-0500 Diastolic blood pressure 69 mm[Hg] Shara Depietro PT Work Phone: [facility] Comment on above: seated, standing /08-24-2024 09:00-0500 Systolic blood pressure 116 mm[Hg] Shara Depietro PT Work Phone: [facility] Comment on above: seated, standing 92/08-10-2024 11:00-0400 Diastolic blood pressure 52 mm[Hg] Shara Depietro PT Work Phone: [facility] 08-10-2024 11:00-0400 Heart rate 75 /min Shara Tapia PT Work Phone: [facility] 08-10-2024 11:00-0400 Systolic blood pressure 91 mm[Hg] Shara Ashleyro PT Work Phone: [facility] 07-31-2024 09:31-0400 Body mass index (BMI) [Ratio] 22.14 kg/m2 Sayra Mabry MD Work Phone: [facility] 07-31-2024 09:31-0400 Body weight 56.7 kg Sayra Mabry MD Work Phone: [facility] 07-31-2024 09:31-0400 SaO2% (BldA) [Mass fraction] 98 % Sayra Mabry MD Work Phone: [facility] 07-21-2024 16:08-0400 Body mass index (BMI) [Ratio] 21.79 kg/m2 Lucía Rizzo MD Work Phone: [facility] 07-21-2024 16:08-0400 Body weight 55.79 kg Lucía Rizzo MD Work Phone: [facility] 07-21-2024 16:08-0400 Diastolic blood pressure 60 mm[Hg] Lucía Rizzo MD Work Phone: [facility] 07-21-2024 16:08-0400 Heart rate 60 /min Lucía Rizzo MD Work Phone: [facility] 07-21-2024 16:08-0400 Respiratory rate 16 /min Lucía Rizzo MD Work Phone: [facility] 07-21-2024 16:08-0400 Systolic blood pressure 92 mm[Hg] Lucía Rizzo MD Work Phone: [facility] 07-02-2024 13:56-0400 Heart rate 75 /min Jak Diaz MD Work Phone: [facility] 07-02-2024 13:56-0400 Respiratory rate 14 /min Jak Diaz MD Work Phone: [facility] 07-02-2024 13:56-0400 SaO2% (BldA) [Mass fraction] 97 % Jak Diaz MD Work Phone: [facility] 06-11-2024 13:52-0400 Diastolic blood pressure 61 mm[Hg] Jak Diaz MD Work Phone: [facility] 06-11-2024 13:52-0400 Heart rate 74 /min Jak Diaz MD Work Phone: [facility] 06-11-2024 13:52-0400 Respiratory rate 18 /min Jak Diaz MD Work Phone: [facility] 06-11-2024 13:52-0400 SaO2% (BldA) [Mass fraction] 98 % Jak Diaz MD Work Phone: [facility] 06-11-2024 13:52-0400 Systolic blood pressure 104 mm[Hg] Jak Diaz MD Work Phone: [facility] 06-05-2024 15:13-0400 Body mass index (BMI) [Ratio] 21.73 kg/m2 Lucía Rizzo MD Work Phone: [facility] 06-05-2024 15:13-0400 Body weight 57.42 kg Lucía Rizzo MD Work Phone: [facility] 06-05-2024 15:13-0400 Diastolic blood pressure 70 mm[Hg] Lucía Rizzo MD Work Phone: [facility] 06-05-2024 15:13-0400 Heart rate 106 /min Lucía Rizzo MD Work Phone: [facility] 06-05-2024 15:13-0400 SaO2% (BldA) [Mass fraction] 97 % Lucía Rizzo MD Work Phone: [facility] 06-05-2024 15:13-0400 Systolic blood pressure 98 mm[Hg] Lucía Rizzo MD Work Phone: [facility] 05-04-2024 11:20-0400 Body mass index (BMI) [Ratio] 22.18 kg/m2 Brissa Hannah TILE SETTER SUPERVISOR.DEALMAKER Work Phone: [facility] 05-04-2024 11:20-0400 Body temperature 98.29 [degF] Brissa Hannah TILE SETTER SUPERVISOR.DEALMAKER Work Phone: [facility] 05-04-2024 11:20-0400 Body weight 58.6 kg Brissa Isaack TILE SETTER SUPERVISOR.DEALMAKER Work Phone: [facility] 05-04-2024 11:20-0400 Diastolic blood pressure 78 mm[Hg] Brissa Hannah TILE SETTER SUPERVISOR.DEALMAKER Work Phone: [facility] 05-04-2024 11:20-0400 Heart rate 76 /min Brissa Hannah TILE SETTER SUPERVISOR.DEALMAKER Work Phone: [facility] 05-04-2024 11:20-0400 Respiratory rate 16 /min Brissa Hannah TILE SETTER SUPERVISOR.DEALMAKER Work Phone: [facility] 05-04-2024 11:20-0400 SaO2% (BldA) [Mass fraction] 98 % Brissa Isaack TILE SETTER SUPERVISOR.DEALMAKER Work Phone: [facility] 05-04-2024 11:20-0400 Systolic blood pressure 134 mm[Hg] Brissa Isaack TILE SETTER SUPERVISOR.DEALMAKER Work Phone: [facility] 03-25-2024 13:56-0400 Body height 162.6 cm Sayra Mabry MD Work Phone: [facility] 03-25-2024 13:56-0400 Body mass index (BMI) [Ratio] 21.53 kg/m2 Sayra Mabry MD Work Phone: [facility] 03-25-2024 13:56-0400 Body weight 56.9 kg Sayra Mabry MD Work Phone: [facility] 03-25-2024 13:56-0400 SaO2% (BldA) [Mass fraction] 96 % Sayra Mabry MD Work Phone: [facility] 03-23-2024 10:52-0400 Body height 162.6 cm Era Kalka PA-C Work Phone: [facility] 03-23-2024 10:52-0400 Body mass index (BMI) [Ratio] 21.7 kg/m2 Era Kalka PA-C Work Phone: [facility] 03-23-2024 10:52-0400 Body weight 57.34 kg Era Kalka PA-C Work Phone: [facility] 03-23-2024 10:52-0400 Diastolic blood pressure 70 mm[Hg] Era Kalka PA-C Work Phone: [facility] 03-23-2024 10:52-0400 Heart rate 76 /min Era Kalka PA-C Work Phone: [facility] 03-23-2024 10:52-0400 Systolic blood pressure 112 mm[Hg] Era Kalka PA-C Work Phone: [facility] 03-22-2024 11:58-0400 Body mass index (BMI) [Ratio] 21.95 kg/m2 Oc Rose APRN.DEALMAKER Work Phone: [facility] 03-22-2024 11:58-0400 Body temperature 97.3 [degF] Oc Rose APRN.DEALMAKER Work Phone: [facility] 03-22-2024 11:58-0400 Body weight 58 kg Oc Rose APRN.DEALMAKER Work Phone: [facility] 03-22-2024 11:58-0400 Diastolic blood pressure 66 mm[Hg] Oc Rose APRN.DEALMAKER Work Phone: [facility] 03-22-2024 11:58-0400 Heart rate 70 /min Oc Rose APRN.DEALMAKER Work Phone: [facility] 03-22-2024 11:58-0400 Respiratory rate 18 /min Oc Rose APRN.DEALMAKER Work Phone: [facility] 03-22-2024 11:58-0400 SaO2% (BldA) [Mass fraction] 99 % Oc Rose TILE SETTER SUPERVISOR.DEALMAKER Work Phone: [facility] 03-22-2024 11:58-0400 Systolic blood pressure 116 mm[Hg] Oc Rose TILE SETTER SUPERVISOR.DEALMAKER Work Phone: [facility] 03-19-2024 13:43-0400 Heart rate 74 /min Theresa Prebish TILE SETTER SUPERVISOR.DEALMAKER Work Phone: [facility] 03-19-2024 13:43-0400 Respiratory rate 16 /min Theresa Prebish TILE SETTER SUPERVISOR.DEALMAKER Work Phone: [facility] 03-19-2024 13:43-0400 SaO2% (BldA) [Mass fraction] 97 % Theresa Prebish TILE SETTER SUPERVISOR.DEALMAKER Work Phone: [facility] 02-27-2024 12:58-0400 Heart rate 79 /min Jak Diaz MD Work Phone: [facility] 02-27-2024 12:58-0400 Respiratory rate 16 /min Jak Diaz MD Work Phone: [facility] 02-27-2024 12:58-0400 SaO2% (BldA) [Mass fraction] 95 % Jak Diaz MD Work Phone: [facility] 01-13-2024 11:49-0400 Body height 162.6 cm Sandra Denbow PA-C Work Phone: [facility] 01-13-2024 11:49-0400 Body temperature 97.2 [degF] Sandra Denbow PA-C Work Phone: [facility] 01-13-2024 11:49-0400 Body weight 58.97 kg Sandra Denbow PA-C Work Phone: [facility] 01-13-2024 11:49-0400 Diastolic blood pressure 62 mm[Hg] Sandra Denbow PA-C Work Phone: [facility] 01-13-2024 11:49-0400 Heart rate 82 /min Sandra Denbow PA-C Work Phone: [facility] 01-13-2024 11:49-0400 Respiratory rate 12 /min Sandra Denbow PA-C Work Phone: [facility] 01-13-2024 11:49-0400 SaO2% (BldA) [Mass fraction] 99 % Sandra Denbow PA-C Work Phone: [facility] 01-13-2024 11:49-0400 Systolic blood pressure 110 mm[Hg] Sandra Denbow PA-C Work Phone: [facility] 12-02-2023 11:05-0500 Body height 162.6 cm Sandra Denbow PA-C Work Phone: [facility] 12-02-2023 11:05-0500 Body temperature 97.11 [degF] Sandra Denbow PA-C Work Phone: [facility] 12-02-2023 11:05-0500 Body weight 59.88 kg Sandra Denbow PA-C Work Phone: [facility] 12-02-2023 11:05-0500 Diastolic blood pressure 62 mm[Hg] Sandra Denbow PA-C Work Phone: [facility] 12-02-2023 11:05-0500 Heart rate 80 /min Sandra Denbow PA-C Work Phone: [facility] 12-02-2023 11:05-0500 Respiratory rate 12 /min Sandra Denbow PA-C Work Phone: [facility] 12-02-2023 11:05-0500 SaO2% (BldA) [Mass fraction] 100 % Sandra Denbow PA-C Work Phone: [facility] 12-02-2023 11:05-0500 Systolic blood pressure 130 mm[Hg] Sandra Denbow PA-C Work Phone: [facility] 11-29-2023 10:47-0500 Diastolic blood pressure 88 mm[Hg] Claudio Allen MD Work Phone: [facility] 11-29-2023 10:47-0500 Heart rate 69 /min Claudio Allen MD Work Phone: [facility] 11-29-2023 10:47-0500 Respiratory rate 20 /min Claudio Allen MD Work Phone: [facility] 11-29-2023 10:47-0500 SaO2% (BldA) [Mass fraction] 97 % Claudio Allen MD Work Phone: [facility] 11-29-2023 10:47-0500 Systolic blood pressure 105 mm[Hg] Claudio Allen MD Work Phone: [facility] 11-29-2023 10:32-0500 Body temperature 97.5 [degF] Claudio Allen MD Work Phone: [facility] 11-28-2023 13:01-0500 Heart rate 86 /min Jak Diaz MD Work Phone: [facility] 11-28-2023 13:01-0500 Respiratory rate 16 /min Jak Diaz MD Work Phone: [facility] 11-28-2023 13:01-0500 SaO2% (BldA) [Mass fraction] 98 % Jak Diaz MD Work Phone: [facility] 10-02-2023 10:30-0500 Diastolic blood pressure 75 mm[Hg] Jak Diaz MD Work Phone: [facility] 10-02-2023 10:30-0500 Heart rate 65 /min Jak Diaz MD Work Phone: [facility] 10-02-2023 10:30-0500 Respiratory rate 15 /min Jak Diaz MD Work Phone: [facility] 10-02-2023 10:30-0500 SaO2% (BldA) [Mass fraction] 94 % Jak Diaz MD Work Phone: [facility] 10-02-2023 10:30-0500 Systolic blood pressure 145 mm[Hg] Jak Diaz MD Work Phone: [facility] 09-20-2023 22:15-0500 Diastolic blood pressure 56 mm[Hg] [facility] 09-20-2023 22:15-0500 Heart rate 76 /min [facility] 09-20-2023 22:15-0500 SaO2% (BldA) [Mass fraction] 91 % [facility] 09-20-2023 22:15-0500 Systolic blood pressure 115 mm[Hg] [facility] 09-20-2023 21:16-0500 Body temperature 99 [degF] [facility] 09-20-2023 21:16-0500 Respiratory rate 18 /min [facility] 09-20-2023 20:20-0500 Body mass index (BMI) [Ratio] 22.8 kg/m2 [facility] 09-20-2023 20:20-0500 Body weight 60.3 kg [facility] 09-20-2023 20:06-0500 Body height 162.56 cm [facility] 08-28-2023 13:30-0500 Body height 162.6 cm Estelle Rhodeslorin TILE SETTER SUPERVISOR.DEALMAKER Work Phone: [facility] 08-28-2023 13:30-0500 Body weight 61.69 kg Estelel Dodge TILE SETTER SUPERVISOR.DEALMAKER Work Phone: [facility] 08-26-2023 14:14-0500 Diastolic blood pressure 76 mm[Hg] Jak Diaz MD Work Phone: [facility] 08-26-2023 14:14-0500 Heart rate 66 /min Jak Diaz MD Work Phone: [facility] 08-26-2023 14:14-0500 Respiratory rate 17 /min Jak Diaz MD Work Phone: [facility] 08-26-2023 14:14-0500 SaO2% (BldA) [Mass fraction] 94 % Jak Diaz MD Work Phone: [facility] 08-26-2023 14:14-0500 Systolic blood pressure 162 mm[Hg] Jak Diaz MD Work Phone: [facility] 08-12-2023 15:32-0400 Body weight 61.69 kg Aminata Older TILE SETTER SUPERVISOR.DEALMAKER Work Phone: [facility] 08-12-2023 15:32-0400 Diastolic blood pressure 80 mm[Hg] Aminata Older TILE SETTER SUPERVISOR.DEALMAKER Work Phone: [facility] 08-12-2023 15:32-0400 Heart rate 68 /min Aminata Older TILE SETTER SUPERVISOR.DEALMAKER Work Phone: [facility] 08-12-2023 15:32-0400 Respiratory rate 16 /min Aminata Older TILE SETTER SUPERVISOR.DEALMAKER Work Phone: [facility] 08-12-2023 15:32-0400 SaO2% (BldA) [Mass fraction] 100 % Aminata Older TILE SETTER SUPERVISOR.DEALMAKER Work Phone: [facility] 08-12-2023 15:32-0400 Systolic blood pressure 118 mm[Hg] Aminata Older TILE SETTER SUPERVISOR.DEALMAKER Work Phone: [facility] 08-12-2023 14:44-0400 Body height 162.6 cm Giuliana Ernst TILE SETTER SUPERVISOR.DEALMAKER Work Phone: [facility] 08-12-2023 14:44-0400 Body weight 61.69 kg Giuliana Ernst TILE SETTER SUPERVISOR.DEALMAKER Work Phone: [facility] 08-07-2023 10:34-0400 Diastolic blood pressure 70 mm[Hg] Jak Diaz MD Work Phone: [facility] 08-07-2023 10:34-0400 Heart rate 68 /min Jak Diaz MD Work Phone: [facility] 08-07-2023 10:34-0400 Respiratory rate 14 /min Jak Diaz MD Work Phone: [facility] 08-07-2023 10:34-0400 SaO2% (BldA) [Mass fraction] 97 % Jak Diaz MD Work Phone: [facility] 08-07-2023 10:34-0400 Systolic blood pressure 118 mm[Hg] Jak Diaz MD Work Phone: [facility] 07-25-2023 15:41-0400 Body height 163.8 cm Zhane Queener PA-C Work Phone: [facility] 07-25-2023 15:41-0400 Body weight 61.69 kg Zhane Queener PA-C Work Phone: [facility] 07-25-2023 15:41-0400 Diastolic blood pressure 76 mm[Hg] Zhane Queener PA-C Work Phone: [facility] 07-25-2023 15:41-0400 Heart rate 64 /min Zhane Queener PA-C Work Phone: [facility] 07-25-2023 15:41-0400 Systolic blood pressure 156 mm[Hg] Zhnae Queener PA-C Work Phone: [facility] 07-19-2023 12:56-0400 Body height 163.8 cm Sandra Denbow PA-C Work Phone: [facility] 07-19-2023 12:56-0400 Body temperature 97.5 [degF] Sandra Denbow PA-C Work Phone: [facility] 07-19-2023 12:56-0400 Body weight 61.69 kg Sandra Denbow PA-C Work Phone: [facility] 07-19-2023 12:56-0400 Diastolic blood pressure 70 mm[Hg] Sandra Denbow PA-C Work Phone: [facility] 07-19-2023 12:56-0400 Heart rate 68 /min Sandra Denbow PA-C Work Phone: [facility] 07-19-2023 12:56-0400 Respiratory rate 12 /min Sandra Denbow PA-C Work Phone: [facility] 07-19-2023 12:56-0400 SaO2% (BldA) [Mass fraction] 92 % Sandra Centeno PA-C Work Phone: [facility] 07-19-2023 12:56-0400 Systolic blood pressure 140 mm[Hg] Sandra Centeno PA-C Work Phone: [facility] 07-08-2023 11:04-0400 Body weight 62.14 kg Raman Greenwood MD Work Phone: [facility] 07-08-2023 11:04-0400 Diastolic blood pressure 63 mm[Hg] Raman Greenwood MD Work Phone: [facility] 07-08-2023 11:04-0400 Heart rate 75 /min Raman Greenwood MD Work Phone: [facility] 07-08-2023 11:04-0400 SaO2% (BldA) [Mass fraction] 97 % Raman Greenwood MD Work Phone: [facility] 07-08-2023 11:04-0400 Systolic blood pressure 116 mm[Hg] Raman Greenwood MD Work Phone: [facility] 07-04-2023 11:15-0400 Heart rate 71 /min Jak Diaz MD Work Phone: [facility] 07-04-2023 11:15-0400 Respiratory rate 16 /min Jak Diaz MD Work Phone: [facility] 07-04-2023 11:15-0400 SaO2% (BldA) [Mass fraction] 96 % Jak Diaz MD Work Phone: [facility] 06-18-2023 12:54-0400 Body weight 62.96 kg Zhane Sylvester PA-C Work Phone: [facility] 06-18-2023 12:54-0400 Diastolic blood pressure 60 mm[Hg] Zhane Sylvester PA-C Work Phone: [facility] 06-18-2023 12:54-0400 Heart rate 69 /min Zhane Romeoer PA-C Work Phone: [facility] 06-18-2023 12:54-0400 Respiratory rate 16 /min Zhane Romeoer PA-C Work Phone: [facility] 06-18-2023 12:54-0400 SaO2% (BldA) [Mass fraction] 98 % Zhane Romeoer PA-C Work Phone: [facility] 06-18-2023 12:54-0400 Systolic blood pressure 118 mm[Hg] Zhane Romeoer PA-C Work Phone: [facility] 06-05-2023 12:40-0400 Body height 163.8 cm Sandra Denbow PA-C Work Phone: [facility] 06-05-2023 12:40-0400 Body temperature 97.2 [degF] Sandra Denbow PA-C Work Phone: [facility] 06-05-2023 12:40-0400 Body weight 63.5 kg Sandra Denbow PA-C Work Phone: [facility] 06-05-2023 12:40-0400 Diastolic blood pressure 56 mm[Hg] Sandra Denbow PA-C Work Phone: [facility] 06-05-2023 12:40-0400 Heart rate 58 /min Sandra Denbow PA-C Work Phone: [facility] 06-05-2023 12:40-0400 Respiratory rate 12 /min Sandra Denbow PA-C Work Phone: [facility] 06-05-2023 12:40-0400 SaO2% (BldA) [Mass fraction] 100 % Sandra Denbow PA-C Work Phone: [facility] 06-05-2023 12:40-0400 Systolic blood pressure 106 mm[Hg] Sandra Denbow PA-C Work Phone: [facility] 05-31-2023 19:16-0400 Diastolic blood pressure 35 mm[Hg] [facility] 05-31-2023 19:16-0400 Heart rate 82 /min [facility] 05-31-2023 19:16-0400 Systolic blood pressure 80 mm[Hg] [facility] 05-31-2023 14:36-0400 Body height 162.56 cm [facility] 05-31-2023 14:36-0400 Body mass index (BMI) [Ratio] 25.8 kg/m2 [facility] 05-31-2023 14:36-0400 Body temperature 98 [degF] [facility] 05-31-2023 14:36-0400 Body weight 68.2 kg [facility] 05-31-2023 14:36-0400 Respiratory rate 14 /min [facility] 05-31-2023 14:36-0400 SaO2% (BldA) [Mass fraction] 94 % [facility] 05-21-2023 14:45-0400 Body temperature 97.81 [degF] Zhane Queener PA-C Work Phone: [facility] 05-21-2023 14:45-0400 Body weight 62.87 kg Zhane Queener PA-C Work Phone: [facility] 05-21-2023 14:45-0400 Diastolic blood pressure 48 mm[Hg] Zhane Queener PA-C Work Phone: [facility] 05-21-2023 14:45-0400 Heart rate 73 /min Zhane Queener PA-C Work Phone: [facility] 05-21-2023 14:45-0400 Respiratory rate 16 /min Zhane Queener PA-C Work Phone: [facility] 05-21-2023 14:45-0400 SaO2% (BldA) [Mass fraction] 96 % Zhane Queener PA-C Work Phone: [facility] 05-21-2023 14:45-0400 Systolic blood pressure 97 mm[Hg] Zhane Queener PA-C Work Phone: [facility] 04-05-2023 13:39-0400 Body temperature 97.5 [degF] Lucía Rizzo MD Work Phone: [facility] 04-05-2023 13:39-0400 Body weight 66.68 kg Lucía Rizzo MD Work Phone: [facility] 04-05-2023 13:39-0400 Diastolic blood pressure 72 mm[Hg] Lucía Rizzo MD Work Phone: [facility] 04-05-2023 13:39-0400 Heart rate 74 /min Lucía Rizzo MD Work Phone: [facility] 04-05-2023 13:39-0400 Respiratory rate 16 /min Lucía Rizzo MD Work Phone: [facility] 04-05-2023 13:39-0400 SaO2% (BldA) [Mass fraction] 97 % Lucía Rizzo MD Work Phone: [facility] 04-05-2023 13:39-0400 Systolic blood pressure 124 mm[Hg] Lucía Rizzo MD Work Phone: [facility] 03-25-2023 15:14-0400 Body temperature 97.7 [degF] Ranjan Connolly Jr., MD Work Phone: [facility] 03-25-2023 15:14-0400 Body weight 67.22 kg Ranjan Connolly Jr., MD Work Phone: [facility] 03-25-2023 15:14-0400 Diastolic blood pressure 66 mm[Hg] Ranjan Connolly Jr., MD Work Phone: [facility] 03-25-2023 15:14-0400 Heart rate 77 /min Ranjan Connolly Jr., MD Work Phone: [facility] 03-25-2023 15:14-0400 Respiratory rate 18 /min Ranjan Connolly Jr., MD Work Phone: [facility] 03-25-2023 15:14-0400 SaO2% (BldA) [Mass fraction] 97 % Ranjan Connolly Jr., MD Work Phone: [facility] 03-25-2023 15:14-0400 Systolic blood pressure 101 mm[Hg] Ranjan Connolly Jr., MD Work Phone: [facility] 12-28-2022 14:06-0500 Body height 163.8 cm Lucía Rizzo MD Work Phone: [facility] 12-28-2022 14:06-0500 Body temperature 98.01 [degF] Lucía Rizzo MD Work Phone: [facility] 12-28-2022 14:06-0500 Body weight 69.4 kg Lucía Rizzo MD Work Phone: [facility] 12-28-2022 14:06-0500 Diastolic blood pressure 66 mm[Hg] Lucía Rizzo MD Work Phone: [facility] 12-28-2022 14:06-0500 Heart rate 74 /min Lucía Rizzo MD Work Phone: [facility] 12-28-2022 14:06-0500 Respiratory rate 12 /min Lucía Rizzo MD Work Phone: [facility] 12-28-2022 14:06-0500 SaO2% (BldA) [Mass fraction] 97 % Lucía Rizzo MD Work Phone: [facility] 12-28-2022 14:06-0500 Systolic blood pressure 122 mm[Hg] Lucía Rizzo MD Work Phone: [facility] 11-23-2022 15:20-0500 Body temperature 97.81 [degF] Ranjan Connolly Jr., MD Work Phone: [facility] 11-23-2022 15:20-0500 Body weight 68.31 kg Ranjan Connolly Jr., MD Work Phone: [facility] 11-23-2022 15:20-0500 Diastolic blood pressure 82 mm[Hg] Ranjan Connolly Jr., MD Work Phone: [facility] 11-23-2022 15:20-0500 Heart rate 78 /min Ranjan Connolly Jr., MD Work Phone: [facility] 11-23-2022 15:20-0500 Respiratory rate 16 /min Ranjan Connolly Jr., MD Work Phone: [facility] 11-23-2022 15:20-0500 SaO2% (BldA) [Mass fraction] 100 % Ranjan Connolly Jr., MD Work Phone: [facility] 11-23-2022 15:20-0500 Systolic blood pressure 124 mm[Hg] Ranjan Connolly Jr., MD Work Phone: [facility] 07-26-2022 14:26-0400 Body temperature 98.1 [degF] Era Dahlhausen TILE SETTER SUPERVISOR.DEALMAKER Work Phone: [facility] 07-26-2022 14:26-0400 Body weight 65.95 kg Era Dahlhausen TILE SETTER SUPERVISOR.DEALMAKER Work Phone: [facility] 07-26-2022 14:26-0400 Diastolic blood pressure 68 mm[Hg] Era Dahlhausen TILE SETTER SUPERVISOR.DEALMAKER Work Phone: [facility] 07-26-2022 14:26-0400 Heart rate 74 /min Era Dahlhausen TILE SETTER SUPERVISOR.DEALMAKER Work Phone: [facility] 07-26-2022 14:26-0400 Respiratory rate 16 /min Era Dahlhausen TILE SETTER SUPERVISOR.DEALMAKER Work Phone: [facility] 07-26-2022 14:26-0400 SaO2% (BldA) [Mass fraction] 96 % Era Dahlhausen TILE SETTER SUPERVISOR.DEALMAKER Work Phone: [facility] 07-26-2022 14:26-0400 Systolic blood pressure 100 mm[Hg] Era Dahlhausen TILE SETTER SUPERVISOR.DEALMAKER Work Phone: [facility] 06-11-2022 10:07-0400 Body height 163.8 cm Raman Greenwood MD Work Phone: [facility] 06-11-2022 10:07-0400 Body weight 63.5 kg Raman Greenwood MD Work Phone: [facility] 06-11-2022 10:07-0400 Diastolic blood pressure 76 mm[Hg] Raman Greenwood MD Work Phone: [facility] 06-11-2022 10:07-0400 Heart rate 66 /min Raman Greenwood MD Work Phone: [facility] 06-11-2022 10:07-0400 Systolic blood pressure 120 mm[Hg] Raman Greenwood MD Work Phone: [facility] 05-21-2022 16:44-0400 Body temperature 97.7 [degF] Ranjan Connolly Jr., MD Work Phone: [facility] 05-21-2022 16:44-0400 Body weight 64.32 kg Ranjan Connolly Jr., MD Work Phone: [facility] 05-21-2022 16:44-0400 Diastolic blood pressure 56 mm[Hg] Ranjan Connolly Jr., MD Work Phone: [facility] 05-21-2022 16:44-0400 Heart rate 60 /min Ranjan Connolly Jr., MD Work Phone: [facility] 05-21-2022 16:44-0400 Respiratory rate 18 /min Ranjan Connolly Jr., MD Work Phone: [facility] 05-21-2022 16:44-0400 SaO2% (BldA) [Mass fraction] 96 % Ranjan Connolly Jr., MD Work Phone: [facility] 05-21-2022 16:44-0400 Systolic blood pressure 104 mm[Hg] Ranjan Connolly Jr., MD Work Phone: [facility] 05-01-2022 14:05-0400 Body height 163.8 cm Lucía Rizzo MD Work Phone: [facility] 05-01-2022 14:05-0400 Body temperature 98.2 [degF] Lucía Rizzo MD Work Phone: [facility] 05-01-2022 14:05-0400 Body weight 65.32 kg Lucía Rizzo MD Work Phone: [facility] 05-01-2022 14:05-0400 Diastolic blood pressure 60 mm[Hg] Lucía Rizzo MD Work Phone: [facility] 05-01-2022 14:05-0400 Heart rate 67 /min Lucía Rizzo MD Work Phone: [facility] 05-01-2022 14:05-0400 Respiratory rate 12 /min Lucía Rizzo MD Work Phone: [facility] 05-01-2022 14:05-0400 SaO2% (BldA) [Mass fraction] 97 % Lucía Rizzo MD Work Phone: [facility] 05-01-2022 14:05-0400 Systolic blood pressure 110 mm[Hg] Lucía Rizzo MD Work Phone: [facility] 04-10-2022 11:23-0400 Body temperature 97.5 [degF] Hina Athy PA-C Work Phone: [facility] 04-10-2022 11:23-0400 Body weight 65.68 kg Hina Athy PA-C Work Phone: [facility] 04-10-2022 11:23-0400 Diastolic blood pressure 68 mm[Hg] Hina Athy PA-C Work Phone: [facility] 04-10-2022 11:23-0400 Heart rate 72 /min Hina Athy PA-C Work Phone: [facility] 04-10-2022 11:23-0400 Respiratory rate 16 /min Hina Athy PA-C Work Phone: [facility] 04-10-2022 11:23-0400 SaO2% (BldA) [Mass fraction] 98 % Hina Athy PA-C Work Phone: [facility] 04-10-2022 11:23-0400 Systolic blood pressure 122 mm[Hg] Hina Murillo PA-C Work Phone: [facility] 10-04-2020 13:53-0500 BP Diastolic 69 mm[Hg] [facility] Work Phone: 10-04-2020 13:53-0500 BP Systolic 137 mm[Hg] [facility] Work Phone: 10-04-2020 13:53-0500 Pulse (Heart Rate) 63 /min [facility] Work Phone: 10-04-2020 13:53-0500 Pulse Oximetry 99 % [facility] Work Phone: 10-04-2020 13:53-0500 Respiratory Rate 15 /min [facility] Work Phone: 10-04-2020 11:31-0500 BMI (Body Mass Index) 23.1 kg/m2 [facility] Work Phone: 10-04-2020 11:31-0500 Body Temperature 98 [degF] [facility] Work Phone: 10-04-2020 11:31-0500 Body weight 61.2 kg [facility] Work Phone: 10-04-2020 11:31-0500 Height 162.56 cm [facility] Work Phone: Encounters Encounter Date Encounter Type Care Provider Facility Start: 08-30-2025 End: 08-30-2025 ambulatory Sayra Mabry Facility:[facility] Start: 08-09-2025 End: 08-09-2025 ambulatory [facility] Facility:[facility] Start: 07-12-2025 End: 07-12-2025 ambulatory [facility] Facility:[facility] Start: 07-07-2025 End: 07-07-2025 ambulatory [facility] Facility:[facility] Start: 06-23-2025 End: 06-23-2025 ambulatory Deandra Ely APRN.CNP Work Phone: [facility] [place] Comment on above: 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) Start: 06-23-2025 End: 06-23-2025 Telemedicine consultation with patient Deandra Ely ALEKSANDRAMiaDEALMAKER Work Phone: [facility] [place] Start: 06-20-2025 End: 06-22-2025 Refill Juan Carlos Ordoñez MD Work Phone: [facility] Comment on above: Refill Request Start: 06-17-2025 ambulatory LUCÍA RIZZO [facility] Start: 06-17-2025 End: 06-17-2025 Subsequent hospital visit by physician Mri Radio [facility] (I-Stat/1.5t) Work Phone: Radiology Comment on above: Meningioma (HCC) [D3 2.9] Start: 06-04-2025 End: 06-04-2025 Patient encounter procedure Isi Hardin DEALMAKER Work Phone: [facility] [place] Comment on above: Superficial burn of right hand, unspecified site of hand, initial encounter (Primary Dx) Start: 06-04-2025 End: 06-04-2025 ambulatory ISI HARDIN Facility:[facility] Start: 05-31-2025 End: 05-31-2025 Refill Lucía Rizzo MD Work Phone: [facility] [place] Comment on above: Refill Request Start: 05-05-2025 End: 05-11-2025 Telephone encounter Sayra Mabry MD Work Phone: [facility] Comment on above: Medication Question Start: 04-16-2025 End: 04-19-2025 Refill Lucía Rizzo MD Work Phone: [address] [place] [address] Comment on above: Refill Request Start: 04-12-2025 End: 04-12-2025 [facility] Juan Carlos Ordoñez MD Work Phone: [facility] Comment on above: EVAN (generalized anx iety disorder) (Primary Dx); Recurrent major depressive disorder, in full remission; Substance or medication-induced anxiety disorder (HCC); Parkinson's disease with dyskinesia, unspecified whether manifestations fluctuate (HCC) Visit Summary Start: 04-06-2025 End: 04-06-2025 Office outpatient visit 25 minutes Lucía Rizzo MD Work Phone: [facility] [place] Comment on above: Orthostatic hypotens ion (Primary Dx); Acute pain of left knee; Essential hypertension, benign; Parkinson's disease with dyskinesia and fluctuating manifestations (HCC) Start: 04-06-2025 End: 04-06-2025 ambulatory [facility] Facility:[facility] Start: 04-06-2025 End: 04-06-2025 [facility] Facility:[facility] Start: 03-11-2025 End: 03-11-2025 [facility] Facility:[facility] Start: 02-15-2025 End: 02-15-2025 Follow-up encounter Brissa Young APRN.CNP Work Phone: [facility] Comment on above: Results Start: 02-14-2025 End: 02-14-2025 ambulatory [facility] Facility:[facility] Start: 02-10-2025 End: 02-10-2025 [facility] [employer] Work Phone: [facility] Comment on above: Generalized anxiety disorder (Primary Dx) Start: 02-08-2025 End: 02-10-2025 Refill Lucía Rizzo MD Work Phone: [facility] [place] Comment on above: Refill Request Start: 02-06-2025 End: 02-09-2025 ambulatory Sayra Mabry MD Work Phone: Neurology Comment on above: questions regarding medication Start: 01-13-2025 End: 01-13-2025 [facility] [employer] Work Phone: [facility] Comment on above: Generalized anxiety disorder (Primary Dx) Start: 01-07-2025 End: 01-07-2025 Follow-up encounter Lucía Rizzo MD Work Phone: Geriatrics Start: 01-04-2025 End: 01-04-2025 [facility] Start: 01-04-2025 End: 01-04-2025 Office outpatient visit 25 minutes Lucía Rizzo MD Work Phone: [facility] [place] Comment on above: Moderate episode of recurrent major depressive disorder (HCC) (Primary Dx); Meningioma (HCC); EVAN (generalized anxiety disorder); Essential hypertension, benign; Orthostatic hypotension; Parkinson's disease with dyskinesia, unspecified whether manifestations fluctuate (HCC); Anemia, unspecified type Start: 12-30-2024 End: 12-30-2024 [facility] Kallie Caballero Work Phone: [facility] Comment on above: Generalized anxiety disorder (Primary Dx) Start: 12-28-2024 End: 12-28-2024 [facility] Juan Carlos Ordoñez MD Work Phone: [facility] Comment on above: EVAN (generalized anx iety disorder) (Primary Dx); Parkinson's disease with dyskinesia, unspecified whether manifestations fluctuate (HCC); Recurrent major depressive disorder, in full remission (HCC) Visit Summary Start: 12-24-2024 End: 02-23-2025 Follow-up encounter Lucía Rizzo MD Work Phone: Geriatrics Start: 12-24-2024 End: 12-24-2024 ambulatory LUCÍA RIZZO Facility:[facility] Start: 11-23-2024 End: 11-23-2024 ambulatory Roger Bowman PSYD Work Phone: [facility] Comment on above: Anxiety (Primary Dx) ; Parkinson's disease with dyskinesia, unspecified whether manifestations fluctuate (HCC) Start: 11-23-2024 End: 11-23-2024 Telemedicine consultation with patient Roger Bowman PSYD Work Phone: [facility] Start: 11-20-2024 End: 11-23-2024 Telephone encounter Sayra Mabry MD Work Phone: [facility] Comment on above: Blood Pressure Start: 11-09-2024 End: 11-09-2024 [facility] Juan Carlos Ordoñez MD Work Phone: [facility] Comment on above: Moderate episode of recurrent major depressive disorder (HCC) (Primary Dx); Parkinson's disease with dyskinesia, unspecified whether manifestations fluctuate (HCC); Anxiety; EVAN (generalized anxiety disorder); Substance or medication-induced anxiety disorder (HCC) Start: 11-05-2024 End: 11-05-2024 ambulatory Sayra Mabry MD Work Phone: Neurology Comment on above: Anxiety (Primary Dx) ; Parkinson's disease with dyskinesia, unspecified whether manifestations fluctuate (HCC) Start: 11-05-2024 End: 11-05-2024 Telemedicine consultation with patient Sayra Mabry MD Work Phone: Neurology Start: 11-02-2024 End: 11-02-2024 ambulatory LUCÍA RIZZO [facility] Start: 11-02-2024 End: 11-02-2024 ambulatory Shara Tapia PT Work Phone: [facility] Comment on above: Impaired functional mobility, balance, gait, and endurance (Primary Dx); Parkinson's disease with dyskinesia, unspecified whether manifestations fluctuate (HCC) Dysphagia, unspecifi ed type (Primary Dx) Start: 10-22-2024 End: 10-23-2024 Refill Lucía Rizzo MD Work Phone: [facility] [place] Comment on above: Refill Request Start: 10-20-2024 End: 10-20-2024 ambulatory Sayra Mabry MD Work Phone: Neurology Comment on above: Parkinson's disease with dyskinesia, unspecified whether manifestations fluctuate (HCC) (Primary Dx); Orthostatic hypotension Start: 10-20-2024 End: 10-20-2024 Telemedicine consultation with patient Sayra Mabry MD Work Phone: Neurology Start: 10-05-2024 End: 10-05-2024 ambulatory LUCÍA RIZZO [facility] Start: 10-05-2024 End: 10-05-2024 ambulatory Shara Tapia PT Work Phone: [facility] Comment on above: Impaired functional mobility, balance, gait, and endurance (Primary Dx); Parkinson's disease with dyskinesia, unspecified whether manifestations fluctuate (HCC) Dysphagia, unspecifi ed type (Primary Dx); Problem with voice production Start: 09-28-2024 End: 09-28-2024 ambulatory LUCÍA RIZZO [facility] Start: 09-28-2024 End: 09-28-2024 ambulatory Shara Ramirezro PT Work Phone: [facility] Comment on above: Impaired functional mobility, balance, gait, and endurance (Primary Dx); Parkinson's disease with dyskinesia, unspecified whether manifestations fluctuate (HCC) Problem with voice p roduction (Primary Dx); Parkinson's disease with dyskinesia, unspecified whether manifestations fluctuate (HCC); Dysphagia, unspecified type Start: 09-07-2024 End: 09-07-2024 Refill Lucía Rizzo MD Work Phone: [facility] [place] Comment on above: Refill Request Start: 09-01-2024 End: 09-01-2024 Office outpatient visit 25 minutes Jean Carlos Resendiz PA-C Work Phone: [facility] [place] Comment on above: Hyponatremia (Primar y Dx); Gastroesophageal reflux disease with esophagitis without hemorrhage; Orthostatic hypotension Start: 08-31-2024 End: 08-31-2024 ambulatory Shara Ashleyro PT Work Phone: [employer] Comment on above: Impaired functional mobility, balance, gait, and endurance (Primary Dx); Parkinson's disease with dyskinesia, unspecified whether manifestations fluctuate (HCC) Start: 08-25-2024 End: 08-25-2024 ambulatory Shara Yasminietro PT Work Phone: [employer] Comment on above: Impaired functional mobility, balance, gait, and endurance (Primary Dx); Parkinson's disease with dyskinesia, unspecified whether manifestations fluctuate (HCC) Start: 08-24-2024 End: 08-24-2024 ambulatory Shara Yasminietro PT Work Phone: [employer] [facility] Comment on above: Impaired functional mobility, balance, gait, and endurance (Primary Dx) Start: 08-18-2024 End: 08-18-2024 ambulatory Shara Yasminietro PT Work Phone: [facility] Comment on above: Impaired functional mobility, balance, gait, and endurance (Primary Dx) Start: 08-11-2024 End: 08-11-2024 Orders Only Sayra Mabry MD Work Phone: Neurology Comment on above: Parkinson's disease with dyskinesia, unspecified whether manifestations fluctuate (HCC) (Primary Dx); Dysphagia, unspecified type Start: 08-10-2024 End: 08-10-2024 ambulatory Shara Tapia PT Work Phone: [facility] Comment on above: Impaired functional mobility, balance, gait, and endurance (Primary Dx); Parkinson's disease with dyskinesia, unspecified whether manifestations fluctuate (HCC) Start: 07-31-2024 End: 07-31-2024 Office outpatient visit 40 minutes Sayra Mabry MD Work Phone: Neurology Comment on above: Parkinson's disease with dyskinesia, unspecified whether manifestations fluctuate (HCC) (Primary Dx) Start: 07-23-2024 End: 07-23-2024 ambulatory Kim Crockett RN Work Phone: [employer] [facility] Start: 07-23-2024 End: 07-23-2024 Telephone follow-up Kim Crockett RN Work Phone: [facility] [employer] [facility] Comment on above: Transition Of Care ( Follow up day 8) Weekly phone contact (Recurring) for Transitional Care Management Start: 07-21-2024 End: 07-21-2024 Office outpatient visit 25 minutes Lucía Rizzo MD Work Phone: [facility] [place] Comment on above: Hyponatremia (Primar y Dx); Hypotension, unspecified hypotension type; Parkinson's disease with dyskinesia, unspecified whether manifestations fluctuate (HCC); Orthostatic hypotension; Weight loss Start: 07-16-2024 End: 07-16-2024 Patient Outreach Kim Crockett RN Work Phone: [employer] Operations Leader [facility] Comment on above: Transition Of Care ( [facility] 07/15 - Initial outreach/) Initial phone contact for Transitional Care Management Start: 07-14-2024 End: 07-15-2024 ambulatory SHOLA MAYORGA Facility[facility] Start: 07-14-2024 End: 07-15-2024 Telephone encounter Lucía Rizzo MD Work Phone: [facility] [place] Comment on above: Patient Update Appointment Start: 07-02-2024 End: 07-02-2024 ambulatory LUCÍA RIZZO Facility[facility] Start: 07-02-2024 End: 07-02-2024 Patient encounter procedure Jak Diaz MD Work Phone: [facility] Comment on above: Trigger Point Inject ion (tpi); Neck Pain (Bilateral - left is worse); Pain (Shoulder Pain) (Bilateral) Start: 06-30-2024 End: 06-30-2024 ambulatory Theresa Hunt DEALMAKER Work Phone: [facility] [place] Comment on above: Myofascial pain (Anabelle keerthi Dx); Cervical spondylosis without myelopathy; Parkinson's disease with dyskinesia, unspecified whether manifestations fluctuate (HCC) Start: 06-30-2024 End: 06-30-2024 Telemedicine consultation with patient Theresa Keeniko CASTRODEALMAKER Work Phone: [facility] [place] Start: 06-25-2024 End: 06-25-2024 ambulatory Era Gagnon PA-C Work Phone: [facility] [place] Comment on above: Gastroesophageal ref lux disease with esophagitis without hemorrhage (Primary Dx); Other constipation Start: 06-25-2024 End: 06-25-2024 Telemedicine consultation with patient [facility] Kalin ISSA [facility] Start: 06-16-2024 End: 06-16-2024 Subsequent hospital visit by physician Mri Radio [facility] (I-Stat/1.5t) Work Phone: Radiology Comment on above: Meningioma (HCC) [D3 2.9] Start: 06-11-2024 End: 06-11-2024 Patient encounter procedure Jak Diaz MD Work Phone: [facility] Comment on above: Myofascial pain (Anabelle keerthi Dx); Cervical spondylosis without myelopathy Start: 06-11-2024 End: 06-11-2024 ambulatory LUCÍA RIZZO [facility] Start: 06-05-2024 End: 06-05-2024 Office outpatient visit 25 minutes Lucía Rizzo MD Work Phone: [facility] [place] Comment on above: Depression, unspecif ied depression type (Primary Dx); Panic attacks; Anxiety; Major depressive disorder, single episode, 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); Autonomic dysfunction; Intracranial meningioma (HCC); Hyperlipidemia, mixed; Weight gain; Fatigue, unspecified type; Vitamin D deficiency; Vitamin B12 deficiency Start: 06-03-2024 Telephone encounter Lucía porter MD Work Phone: [facility] [place] Comment on above: Panic attacks Start: 05-15-2024 Refill Lucía Wright Work Phone: [facility] [place] Comment on above: Refill Request Start: 05-04-2024 End: 05-04-2024 Patient encounter procedure Brissa Young APRN.CNP Work Phone: [facility] Comment on above: Rash (Primary Dx) Start: 05-03-2024 Refill Ranjan paredes MD Work Phone: Neurology Comment on above: Refill Request Start: 05-01-2024 Telephone encounter Theresa morales APRN.CNP Work Phone: [facility] [place] Comment on above: Returning Patient's Call Start: 04-30-2024 Telephone encounter Theresa morales APRN.CNP Work Phone: [facility] [place] Comment on above: Appointment Start: 04-30-2024 End: 04-30-2024 Telemedicine consultation with patient Theresa Hunt APRN.CNP Work Phone: [facility] [place] Start: 04-30-2024 End: 04-30-2024 ambulatory Theresa Hunt APRN.CNP Work Phone: [facility] [place] Comment on above: Myofascial pain (Anabelle strong Dx); Cervical spondylosis without myelopathy; Parkinson's disease with dyskinesia, unspecified whether manifestations fluctuate (HCC) Start: 03-25-2024 End: 03-25-2024 Patient encounter procedure Sayra Mabry MD Work Phone: Neurology Comment on above: Orthostatic hypotens ion; Syncope, unspecified syncope type; Parkinson's disease with dyskinesia, unspecified whether manifestations fluctuate (HCC) Start: 03-23-2024 End: 03-23-2024 Patient encounter procedure Era Gagnon PA-C Work Phone: [facility] [place] Comment on above: Gastroesophageal ref lux disease with esophagitis without hemorrhage (Primary Dx); Schatzki's ring; Other constipation Start: 03-22-2024 End: 03-22-2024 Patient encounter procedure Oc Rose APRN.DEALMAKER Work Phone: [facility] Comment on above: Rash (Primary Dx); Sore throat Start: 03-19-2024 End: 03-19-2024 Patient encounter procedure Theresa Hunt APRN.DEALMAKER Work Phone: [facility] Comment on above: Trigger Point Inject ion (Neck and shoulder) Start: 03-19-2024 End: 03-19-2024 ambulatory [facility] Facility:[facility] Start: 03-13-2024 Telephone encounter Oc Rose APRN.DEALMAKER Work Phone: [facility] Comment on above: Results; Orders Start: 02-27-2024 End: 02-27-2024 Patient encounter procedure Jak Diaz MD Work Phone: [facility] Comment on above: Cervical spondylosis without myelopathy (Primary Dx); Myofascial pain Start: 02-27-2024 End: 02-27-2024 ambulatory [facility] Facility[facility] Start: 01-13-2024 End: 01-13-2024 Patient encounter procedure Sandra Centeno PA-C Work Phone: Internal Medicine [place] Comment on above: Orthostatic hypotens ion (Primary Dx); Syncope, unspecified syncope type; Parkinson's disease with dyskinesia, unspecified whether manifestations fluctuate (HCC); Mixed hyperlipidemia Start: 12-27-2023 ambulatory Zhane Reyez sonal ISSA Work Phone: Neurology Comment on above: Ruby Start: 12-27-2023 E-mail encounter angie alvarez caregiver Zhane Romeowendy ISSA Work Phone: [facility] Start: 12-03-2023 Telephone encounter Ranjan Connolly MD Work Phone: Neurology Comment on above: Appointment Start: 12-02-2023 End: 12-02-2023 Patient encounter procedure Sandra Centeno PA-C Work Phone: Internal Medicine [place] Comment on above: Syncope, unspecified syncope type (Primary Dx); Mixed hyperlipidemia; Parkinson's disease with dyskinesia, unspecified whether manifestations fluctuate; Gastroesophageal reflux disease, unspecified whether esophagitis present Start: 11-29-2023 ambulatory [facility] Start: 11-29-2023 End: 11-29-2023 Subsequent hospital visit by physician Claudio Allen MD Work Phone: [facility] Comment on above: Dysphagia, unspecifi ed type [R13.10] Start: 11-28-2023 Refill Jak Diaz MD Work Phone: [facility] Comment on above: Med Change Request Start: 11-28-2023 End: 11-28-2023 Patient encounter procedure Jak Diaz MD Work Phone: [facility] Comment on above: Cervical spondylosis without myelopathy (Primary Dx); Myofascial pain; Parkinson's disease with dyskinesia, unspecified whether manifestations fluctuate Start: 11-28-2023 End: 11-28-2023 ambulatory [facility] Facility:[facility] Start: 10-02-2023 End: 10-02-2023 ambulatory Jak Diaz MD Work Phone: [facility] [place] Comment on above: Injections (CRFA) Start: 10-02-2023 End: 10-02-2023 Patient encounter procedure Jak Diaz MD Work Phone: [facility] Start: 09-20-2023 End: 09-20-2023 Emergency department patient visit [facility] Work Phone: Start: 09-17-2023 End: 09-18-2023 ambulatory Nano Alejandre [employer] Work Phone: [facility] Therapy Comment on above: Dysphagia, unspecifi ed type (Primary Dx); Parkinson's disease, unspecified whether dyskinesia present, unspecified whether manifestations fluctuate Start: 09-17-2023 End: 09-17-2023 Subsequent hospital visit by physician Gi/Gu [address] [place] [address] Hosp Work Phone: Radiology Comment on above: Dysphagia, unspecifi ed type [R13.10] Start: 08-28-2023 End: 08-28-2023 ambulatory Estelle Marino Dar TILE SETTER SUPERVISOR.DEALMAKER Work Phone: [facility] [place] Comment on above: Cervical spondylosis without myelopathy (Primary Dx) Start: 08-28-2023 End: 08-28-2023 Telemedicine consultation with patient Estelle Marino Dar TILE SETTER SUPERVISOR.DEALMAKER Work Phone: [facility] Start: 08-26-2023 End: 08-26-2023 [facility]QHC visit, estab pt Jak Diaz MD Work Phone: [facility] [place] Comment on above: Established Patient; Procedure; Neck Pain Start: 08-26-2023 End: 08-26-2023 Patient encounter procedure Jak Diaz MD Work Phone: [facility] Start: 08-13-2023 End: 08-13-2023 ambulatory Giuliana Ernst TILE SETTER SUPERVISOR.DEALMAKER Work Phone: [facility] [place] Comment on above: Cervical spondylosis without myelopathy (Primary Dx) Start: 08-13-2023 End: 08-13-2023 Telemedicine consultation with patient Giuliana Ernst APRN.DEALMAKER Work Phone: [facility] Start: 08-12-2023 End: 08-12-2023 Patient encounter procedure Aminata Royal APRN.DEALMAKER Work Phone: Internal Medicine [place] Comment on above: Parkinson's disease, unspecified whether dyskinesia present, unspecified whether manifestations fluctuate (Primary Dx); Mixed hyperlipidemia; Hypothyroidism, unspecified type; Gastroesophageal reflux disease, unspecified whether esophagitis present; Hypotension, unspecified hypotension type; Vitamin D deficiency Start: 08-09-2023 Telephone encounter Jak Diaz MD Work Phone: [facility] [place] Comment on above: Procedure Follow Up (DR DIAZ 08/07/23) Start: 08-07-2023 End: 08-07-2023 FQHC visit, estab pt Jak Diaz MD Work Phone: [facility] [place] Comment on above: Established Patient; Neck Pain; Procedure Start: 08-07-2023 End: 08-07-2023 Patient encounter procedure Jak Diaz MD Work Phone: [facility] Start: 08-02-2023 ambulatory Zhane pruitt PA-C Work Phone: Neurology Comment on above: Speech evaluation Start: 08-02-2023 E-mail encounter fro m caregiver Zhane Sylvester PA-C Work Phone: [facility] Start: 08-01-2023 End: 08-01-2023 ambulatory Nabeel Francis CCC-CORPORATE SECURITY MANAGER Work Phone: [facility] Comment on above: Parkinson's disease, unspecified whether dyskinesia present, unspecified whether manifestations fluctuate; Dysphagia, unspecified type Start: 07-25-2023 End: 07-25-2023 Patient encounter procedure Zhane Sylvester PA-C Work Phone: Neurology Comment on above: Parkinson's disease, unspecified whether dyskinesia present, unspecified whether manifestations fluctuate (Primary Dx); Orthostatic intolerance Start: 07-19-2023 End: 07-19-2023 Patient encounter procedure Sandra Centeno PA-C Work Phone: [facility] [place] Comment on above: Hypotension, unspeci fied hypotension type (Primary Dx); Abdominal bloating; Need for influenza vaccination Start: 07-08-2023 End: 07-08-2023 Refill Lucía Rizzo MD Work Phone: Family [facility] [place] Comment on above: Refill Request Tachycardia (Primary Dx); Mixed hyperlipidemia Start: 07-04-2023 Telephone encounter Jak Diaz MD Work Phone: [facility] Comment on above: Injection Questions Start: 07-04-2023 End: 07-04-2023 Patient encounter procedure Jak Diaz MD Work Phone: [facility] Comment on above: [...] Start: 06-05-2023 End: 06-05-2023 Patient encounter procedure Sandra Centeno PA-C Work Phone: [facility] [place] Comment on above: Hypotension, unspeci fied hypotension type (Primary Dx); Parkinson disease (HCC); Adjustment disorder with anxiety; Panic attacks Start: 06-03-2023 End: 06-03-2023 ambulatory Steve Chavez PT Work Phone: [facility] Physical Therapy Comment on above: Neck pain (Primary D x); Neck muscle weakness Start: 05-31-2023 End: 05-31-2023 Emergency department patient visit [facility] Work Phone: Start: 05-31-2023 ambulatory Lucía Wright Work Phone: [facility] [place] Comment on above: low blood pressure; Dizziness Start: 05-28-2023 End: 05-28-2023 ambulatory Steve Chavez PT Work Phone: [facility] Comment on above: Neck pain (Primary D x); Neck muscle weakness Start: 05-25-2023 Refill Aminata Royal APRN .DEALMAKER Work Phone: [facility] Comment on above: Refill Request Start: 05-22-2023 ambulatory Zhane pruitt PA-C Work Phone: Neurology Comment on above: Medication change Start: 05-22-2023 E-mail encounter fro m caregiver Zhane Sylvester PA-C Work Phone: [facility] Start: 05-21-2023 End: 05-21-2023 Patient encounter procedure Zhane Sylvester PA-C Work Phone: Neurology Comment on above: Parkinson disease (H CC) (Primary Dx); Intracranial meningioma (HCC) Start: 05-20-2023 End: 05-20-2023 ambulatory Steve Chavez PT Work Phone: [facility] Comment on above: Neck pain (Primary D x); Neck muscle weakness Start: 05-08-2023 End: 05-08-2023 Patient encounter procedure Paula Abreu APRN.DEALMAKER Work Phone: [facility] Comment on above: Syncope, unspecified syncope type (Primary Dx) Start: 05-06-2023 End: 05-06-2023 ambulatory Deandra Caprishahrzad TILE SETTER SUPERVISOR.DEALMAKER Work Phone: Neurosurgery Comment on above: Meningioma (HCC) (Pr imary Dx) Start: 05-06-2023 End: 05-06-2023 Telemedicine consultation with patient Deandra Ely TILE SETTER SUPERVISOR.DEALMAKER Work Phone: [facility] Start: 05-02-2023 End: 05-02-2023 ambulatory Steve Chavez PT Work Phone: [facility] Comment on above: Neck pain (Primary D x); Neck muscle weakness Start: 04-29-2023 End: 04-29-2023 ambulatory Steve Chavez PT Work Phone: [facility] Comment on above: Neck pain (Primary D x); Neck muscle weakness Start: 04-22-2023 End: 04-22-2023 ambulatory Steve Kathy PT Work Phone: [facility] Comment on above: Neck pain (Primary D x); Neck muscle weakness Start: 04-18-2023 End: 04-18-2023 ambulatory Steve Kathy PT, DPT Work Phone: [facility] Comment on above: Neck pain (Primary D x); Neck muscle weakness Start: 04-15-2023 End: 04-15-2023 ambulatory Steve Kathy PT, DPT Work Phone: [facility] Comment on above: Neck pain (Primary D x); Neck muscle weakness Start: 04-11-2023 Telephone encounter Lucía porter MD Work Phone: Internal Medicine [place] Comment on above: Results Start: 04-11-2023 End: 04-11-2023 ambulatory Steve Kathy PT, DPT Work Phone: [facility] Comment on above: Neck pain (Primary D x); Neck muscle weakness Start: 04-09-2023 End: 04-09-2023 ambulatory Steve Kathy PT, DPT Work Phone: [facility] Comment on above: Neck pain (Primary D x); Neck muscle weakness Start: 04-05-2023 End: 04-05-2023 Subsequent hospital visit by physician [facility] Work Phone: Radiology Comment on above: Neck pain [M54.2] Start: 04-05-2023 End: 04-05-2023 Patient encounter procedure Lucía Rizzo MD Work Phone: Internal Medicine [place] Comment on above: Neck pain (Primary D x); Neck muscle weakness; Kyphosis of thoracic region, unspecified kyphosis type Start: 03-25-2023 End: 03-25-2023 Patient encounter procedure Ranjan Connolly MD Work Phone: Neurology Comment on above: Parkinson disease (H CC) (Primary Dx); RBD (REM behavioral disorder); Small fiber neuropathy; Intracranial meningioma (HCC) Start: 03-19-2023 ambulatory Lucía Wright Work Phone: [facility] [place] Start: 12-28-2022 End: 12-28-2022 Patient encounter procedure Lucía Rizzo MD Work Phone: Internal Medicine [place] Comment on above: Recurrent major depr essive [...] encounter procedure Momo Keene MD [facility] Start: 08-17-2022 Radiation Oncology Note Momo Keene MD Work Phone: Radiation Oncology Comment on above: Procedure Start: 08-16-2022 End: 08-16-2022 Patient encounter procedure Mask Placement Neus Ca LLD Work Phone: Neurosurgery Comment on above: Meningioma (HCC) (Pr imary Dx) Start: 08-16-2022 Radiation Oncology Note Xochilt Muller MD Work Phone: Radiation Oncology Comment on above: Procedure Start: 08-15-2022 End: 08-15-2022 Patient encounter procedure Mask Placement Neus Ca LLD Work Phone: Neurosurgery Comment on above: Meningioma (HCC) (Pr imary Dx) Start: 08-15-2022 Radiation Oncology Note [facility] Provider [facility] Department Comment on above: Procedure Start: 08-14-2022 End: 08-14-2022 Patient encounter procedure Mask Placement Neus Ca LLD Work Phone: Neurosurgery Comment on above: Meningioma (HCC) (Pr imary Dx) Intracranial meningi rickie (HCC) (Primary Dx) Start: 08-14-2022 Radiation Oncology Note Momo Keene MD Work Phone: Radiation Oncology Comment on above: Procedure Start: 08-07-2022 Patient encounter procedure Momo Keene MD Work Phone: [facility] Start: 08-07-2022 Radiation Oncology Note Momo Keene MD Work Phone: Radiation Oncology Comment on above: Simulation Note Treatment Planning Start: 08-07-2022 End: 08-07-2022 Subsequent hospital visit by physician [facility] Work Phone: Radiology Start: 08-06-2022 Telephone encounter Eunice navarrete Therapist Radiation Oncology Comment on above: Patient Education (M ask simulation instructions) Start: 07-26-2022 End: 07-26-2022 Patient encounter procedure Era Madden APRN.CNP Work Phone: Neurology Comment on above: Parkinson [...] 05-03-2022 ambulatory Semaj Rodriguez MD Work Phone: [facility] Comment on above: Meningioma (HCC) (Pr imary Dx) Intracranial meningi rickie (HCC) (Primary Dx) Start: 05-03-2022 End: 05-03-2022 Telemedicine consultation with patient Semaj Rodriguez MD Work Phone: [facility] Start: 05-01-2022 End: 05-01-2022 Patient encounter procedure Lucía Rizzo MD Work Phone: Internal Medicine [place] Comment on above: Balance problem (Anabelle keerthi Dx); Hypothyroidism, unspecified type; Numbness and tingling; Vitamin D deficiency; Vitamin B12 deficiency Start: 04-10-2022 End: 04-10-2022 Patient encounter procedure Hina Murillo PA-C Work Phone: [place] [facility] Comment on above: Allergic contact ame matitis due to plants, except food (Primary Dx) Start: 04-05-2022 Telephone encounter Deandra saini APRN.CNP Work Phone: [facility] [place] Comment on above: Patient Update Start: 03-28-2022 End: 03-28-2022 ambulatory Deandra Ely APRN.CNP Work Phone: [facility] Comment on above: Intracranial meningi rickie (HCC) (Primary Dx) Start: 03-28-2022 End: 03-28-2022 Telemedicine consultation with patient Deandra Ely APRN.CNP Work Phone: [facility] Start: 03-26-2022 End: 03-26-2022 Subsequent hospital visit by physician Mri [facility] (I-Stat/1.5t) Work Phone: Radiology Comment on above: Benign neoplasm of b rain, 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] Start: 03-11-2022 ambulatory Ranjan paredes MD Work Phone: Neurology Comment on above: Concerns regarding n ew Parkinson s developments Start: 10-04-2020 End: 10-04-2020 Emergency department patient visit [facility] Procedures Date Procedure Procedure Detail Performing Clinician Start: 06-17-2025 Mri brain brain stem w/o w/contrast material Deandra Ely APRN.CNP Work Phone: Start: 06-16-2024 Mri brain brain stem w/o w/contrast material Deandra Ely APRN.CNP Work Phone: Start: 03-22-2024 STREP A MOLECULAR (POC) [facility] Provider Start: 11-29-2023 Esophagogastroduodenoscopy transoral diagnostic Era Gagnon PA-C Work Phone: Start: 09-20-2023 Plain chest X-ray Start: 09-20-2023 SARS-CoV-2 & FLU Antigen (Rapid) Start: 07-19-2023 INFLUENZA VACCINE, PRSV FREE, AGE 65+ YR, HIGH DOSE, QUADRIVALENT (FLUZONE HIGH-DOSE) Sandra Centeno PA-C Work Phone: Start: 05-31-2023 Plain chest X-ray Start: 04-05-2023 Radex spine cervical 4 or 5 views Lucía Rizzo MD Work Phone: Start: 08-07-2022 Ct head/brain w/o contrast material Alonso Rodriguez MD Work Phone: Start: 03-26-2022 Mri brain brain stem w/o w/contrast material Deandra Ely APRN.CNP Work Phone: Start: 12-24-2021 Adult depression screening assessment Ranjan Connolly Jr., MD Work Phone: Start: 10-04-2020 Plain chest X-ray Start: 06-17-2019 Colonoscopy Ranjan Connolly Jr., MD Work Phone: Plan of Treatment Date Care Activity Detail Author Start: 07-14-2034 Urine microalbumin profile DTaP,Tdap,Td Vaccine (2 - Td or Tdap) [facility] Start: 06-17-2029 Colonoscopy COLONOSCOPY [facility] Start: 06-17-2029 COLORECTAL CANCER SCREENING COLORECTAL CANCER SCREENING [facility] Start: 12-25-2027 Diabetes Screening Diabetes Screening [facility] Start: 08-20-2027 Diabetes Screening Diabetes Screening [facility] Start: 07-15-2027 Diabetes Screening Diabetes Screening [facility] Start: 07-14-2027 Diabetes Screening Diabetes Screening [facility] Start: 11-11-2026 Diabetes Screening Diabetes Screening [facility] Start: 05-15-2026 DIABETES SCREEN DIABETES SCREEN [facility] Start: 05-15-2026 Diabetes Screening Diabetes Screening [facility] Start: 04-06-2026 Annual PCP Team Chronic Disease Visit Annual PCP Team Chronic Disease Visit [facility] Start: 03-21-2026 DIABETES SCREEN DIABETES SCREEN [facility] Start: 03-08-2026 LIPID SCREEN LIPID SCREEN [facility] Start: 02-14-2026 BP Controlled (<130/80) BP Controlled (<130/80) [facility] Start: 01-04-2026 Annual PCP Team Chronic Disease Visit Annual PCP Team Chronic Disease Visit [facility] Start: 01-04-2026 BP Controlled (<130/80) BP Controlled (<130/80) [facility] Start: 09-27-2025 End: 09-27-2025 ambulatory 09/27/2025 2:00 PM [facility] [address] [place] [address] Juan Carlos Ordoñez MD [address] [place] [address] [facility] Start: 09-01-2025 Annual PCP Team Chronic Disease Visit Annual PCP Team Chronic Disease Visit [facility] Start: 09-01-2025 BP Controlled (<130/80) BP Controlled (<130/80) [facility] Start: 08-24-2025 BP Controlled (<130/80) BP Controlled (<130/80) [facility] Start: 08-10-2025 BP Controlled (<130/80) BP Controlled (<130/80) [facility] Start: 08-09-2025 End: 08-09-2025 Patient encounter procedure 08/09/2025 11:20 AM EDT Office Visit [facility] [place] [address] [place], [place] [id number] Lucía Rizzo MD [address] [place] [address] medicare wellness [facility] [place] Comment on above: medicare wellness Start: 07-21-2025 Annual PCP Team Chronic Disease Visit Annual PCP Team Chronic Disease Visit [facility] Start: 07-21-2025 BP Controlled (<130/80) BP Controlled (<130/80) [facility] Start: 07-12-2025 End: 07-12-2025 Patient encounter procedure 07/12/2025 11:00 AM EDT Office Visit Neurology [address] [id number] Sayra Mabry MD [address] [facility] [address] [place] [address] Parkinson's disease with dyskinesia, unspecified whether manifestations fluctuate (HCC) [G20.B1] Neurology Comment on above: Parkinson's disease with dyskinesia, uns pecified whether manifestations fluctuate (HCC) [G20.B1] Start: 07-07-2025 End: 10-06-2025 CBC W Auto Differential panel - Blood COMPLETE BLOOD COUNT AND DIFFERENTIAL Lab Routine Anemia, unspecified type Expected: 07/07/2025, Expires: 10/06/2025 [facility] Comment on above: Expected: 07/07/2025, Expires: Start: 07-07-2025 End: 07-07-2025 ambulatory 07/07/2025 8:00 AM EDT Results Only [facility] [address] [place] [address] [facility] Start: 06-23-2025 End: 06-23-2025 ambulatory 06/23/2025 10:15 AM EDT [facility] [place] [address] [place] [address] Deandra Ely APRN.DEALMAKER [address] [facility] [place] [address] f/up 12 months [facility] [place] Comment on above: f/up 12 months Start: 06-21-2025 Influenza vaccination [facility] Start: 06-17-2025 End: 06-17-2025 Patient encounter procedure 06/17/2025 10:00 AM EDT Appointment Radiology [address] [place] [address] Meningioma (HCC) [D32.9] Radiology Comment on above: Meningioma (HCC) [D32.9] Start: 06-11-2025 BP Controlled (<130/80) BP Controlled (<130/80) [facility] Start: 06-05-2025 Annual PCP Team Chronic Disease Visit Annual PCP Team Chronic Disease Visit [facility] Start: 06-05-2025 BP Controlled (<130/80) BP Controlled (<130/80) [facility] Start: 05-04-2025 DIABETES SCREEN DIABETES SCREEN [facility] Start: 04-12-2025 End: 04-12-2025 ambulatory 04/12/2025 2:00 PM EDT [facility] Neu[facility] [address] [place] [address] Juan Carlos Ordoñez MD [address] [place] [address] [facility] Start: 04-06-2025 End: 07-06-2025 CBC panel - Blood by Automated count COMPLETE BLOOD COUNT Lab Routine Anemia, unspecified type Expected: 04/06/2025, Expires: 07/06/2025 [facility] Comment on above: Expected: 04/06/2025, Expires: Start: 04-06-2025 End: 04-06-2025 Patient encounter procedure 04/06/2025 10:40 AM EDT Office Visit [facility] [place] [address] [place] [address] Lucía Rizzo MD [address] [place] [address] 3 month f/u [facility] [place] Comment on above: 3 month f/u Start: 04-06-2025 End: 04-06-2025 ambulatory 04/06/2025 8:15 AM EDT Results Only [facility] [address] [facility] [place] [address] [facility] Start: 03-23-2025 BP Controlled (<130/80) BP Controlled (<130/80) [facility] Start: 03-22-2025 BP Controlled (<130/80) BP Controlled (<130/80) [facility] Start: 03-11-2025 BP Controlled (<130/80) BP Controlled (<130/80) [facility] Start: 03-11-2025 End: 03-11-2025 Patient encounter procedure 03/11/2025 9:30 AM EDT Office Visit Neurology [address] [facility] [address] [place] [address] Sayra Mabry MD [address] [facility] [address] [place] [address] Follow up appointment Neurology Comment on above: Follow up appointment Start: 02-10-2025 End: 02-10-2025 Follow-up encounter 02/10/2025 10:00 AM EDT [facility] [address] [place] [address] YolandaKallie Maldonado, HAND COOPER HELPER [address] [place] [address] FOLLOW UP [facility] Comment on above: FOLLOW UP Start: 01-27-2025 End: 01-27-2025 Follow-up encounter 01/27/2025 10:00 AM EDT [facility] [address] [place] [address] YolandaGen Maldonadoa, HAND COOPER HELPER [address] [place] [address] FOLLOW UP [facility] Comment on above: FOLLOW UP Start: 01-13-2025 End: 01-13-2025 Follow-up encounter 01/13/2025 10:00 AM EDT [facility] [address] [place] [address] YolandaGen Maldonadoa, HAND COOPER HELPER [address] [place] [address] FOLLOW UP [facility] Comment on above: FOLLOW UP Start: 01-12-2025 Annual PCP Team Chronic Disease Visit Annual PCP Team Chronic Disease Visit [facility] Start: 01-12-2025 BP Controlled (<130/80) BP Controlled (<130/80) [facility] Start: 01-04-2025 End: 04-05-2025 Ferritin [Mass/volume] in Serum or Plasma [facility] Comment on above: Expected: 01/04/2025, Expires: Start: 01-04-2025 End: 04-05-2025 Iron and Iron binding capacity panel - Serum or Plasma [facility] Work Phone: Comment on above: Expected: 01/04/2025, Expires: Start: 01-04-2025 End: 01-04-2025 Patient encounter procedure 01/04/2025 9:00 AM EDT Office Visit [facility] [place] [address] [place] [address] Lucía Rizzo MD [address] [place] [address] 6 month follow up Internal Medicine [place] Comment on above: 6 month follow up Start: 12-30-2024 End: 12-30-2024 Follow-up encounter 12/30/2024 10:00 AM EDT [facility] [address] [place] [address] Yolanda Kallie HAND COOPER HELPER [address] [facility] [place] [address] follow up [facility] Comment on above: follow up Start: 12-28-2024 End: 12-28-2024 ambulatory 12/28/2024 2:00 PM EDT [facility] [address] [place] [address] Juan Carlos Ordoñez MD [address] [place] [address] [facility] Start: 12-24-2024 End: 12-24-2024 ambulatory 12/24/2024 8:30 AM EST Results Only [facility] Station [address] [facility] [place] [address] [facility] Start: 12-23-2024 BP Controlled (<130/80) BP Controlled (<130/80) [facility] Start: 12-19-2024 DIABETES SCREEN DIABETES SCREEN [facility] Start: 12-07-2024 End: 12-07-2024 Patient encounter procedure 12/07/2024 11:40 AM EST Office Visit Internal Medicine [place] [address] [place] [address] Lucía Rizzo MD [address] [facility] 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) Expected: 12/06/2024, Expires: 03/07/2025 [facility] Comment on above: Expected: 12/06/2024, Expires: Start: 12-06-2024 End: 03-07-2025 Cobalamin (Vitamin B12) [Mass/volume] in Serum or Plasma VITAMIN B12 Lab Routine Vitamin B12 deficiency Expected: 12/06/2024, Expires: 03/07/2025 [facility] Comment on above: Expected: 12/06/2024, Expires: Start: 12-06-2024 End: 03-07-2025 Comprehensive metabolic 2000 panel - Serum or Plasma COMPREHENSIVE METABOLIC PANEL Lab Routine Hyperlipidemia, mixed Expected: 12/06/2024, Expires: 03/07/2025 [facility] Comment on above: Expected: 12/06/2024, Expires: Start: 12-06-2024 End: 03-07-2025 Lipid 1996 panel - Serum or Plasma LIPID PANEL BASIC Lab Routine Hyperlipidemia, mixed Expected: 12/06/2024, Expires: 03/07/2025 [facility] Work Phone: Comment on above: Expected: 12/06/2024, Expires: Start: 12-06-2024 End: 03-07-2025 Thyrotropin [Units/volume] in Serum or Plasma THYROID STIMULATING HORMONE Lab Routine Weight gain Fatigue, unspecified type Expected: 12/06/2024, Expires: 03/07/2025 [facility] Comment on above: Expected: 12/06/2024, Expires: Start: 12-02-2024 Annual PCP Team Chronic Disease Visit Annual PCP Team Chronic Disease Visit [facility] Start: 11-23-2024 End: 11-23-2024 Patient encounter procedure 11/23/2024 12:30 PM EST [facility] [address] [place] [address] Roger Bowman, TRISHA [address] [place] [address] CONSULT TO PSYCHOLOGY [facility] Comment on above: CONSULT TO PSYCHOLOGY Start: 11-19-2024 BP Controlled (<130/80) BP Controlled (<130/80) [facility] Start: 11-09-2024 End: 11-09-2024 Patient encounter procedure 11/09/2024 1:00 PM EST [facility] [address] [place] [address] Juan Carlos Ordoñez MD [address] [place] [address] CONSULT TO PSYCHIATRY [facility] Comment on above: CONSULT TO PSYCHIATRY Start: 11-05-2024 End: 11-05-2024 Patient encounter procedure 11/05/2024 10:00 AM EST Office Visit Neurology [address] [phone] Sayra Mabry MD [address] [facility] [address] [place] [address] Return in about 3 months (around 10/31/2024). Neurology Comment on above: Return in about 3 months (around 10/31/19 25). Start: 11-02-2024 End: 11-02-2024 ambulatory 11/02/2024 2:30 PM EST OT/PT/Speech Visit [facility] [address] [place] [address] Shara Tapia, PT [address] [place], [place] [id number] Parkinson's disease with dyskinesia, unspecified whether manifestations fluctuate (HCC) [G20.B1] [facility] Comment on above: Parkinson's disease with dyskinesia, uns pecified whether manifestations fluctuate (HCC) [G20.B1] Start: 10-29-2024 Annual PCP Team Chronic Disease Visit Annual PCP Team Chronic Disease Visit [facility] Start: 10-26-2024 End: 10-26-2024 ambulatory [facility] Comment on above: Parkinson's disease with dyskinesia, uns pecified whether manifestations fluctuate (HCC) [G20.B1] 2024 wrote up Start: 10-21-2024 Advance Directive Discussion Advance Directive Discussion [facility] Start: 10-20-2024 End: 10-20-2024 Follow-up encounter 10/20/2024 7:30 AM EST [facility] Neurology [address] [facility] [address] [place] [address] Sayra Mabry MD [address] [facility] [address] [place] [address] Follow up Neurology Comment on above: Follow up Start: 10-08-2024 End: 10-08-2024 Patient encounter procedure 10/08/2024 11:00 AM EST Procedure [facility] [address] [facility] [place] [address] Theresa Hunt APRN.DEALMAKER [address] [place] [address] AUTH GOOD (MEDICARE A&B) CAD - TPI (3 OF 3 FOR YEAR) [facility] Comment on above: AUTH GOOD (MEDICARE A&B) CAD - TPI (3 OF 3 FOR YEAR) Start: 10-05-2024 End: 10-05-2024 ambulatory 10/05/2024 2:30 PM EST OT/PT/Speech Visit [facility] [address] [place] [address] Shara Tapia, PT [address] [place], [place] [id number] Parkinson's disease with dyskinesia, unspecified whether manifestations fluctuate (HCC) [G20.B1] [facility] Comment on above: Parkinson's disease with dyskinesia, uns pecified whether manifestations fluctuate (HCC) [G20.B1] Start: 09-28-2024 End: 09-28-2024 ambulatory 09/28/2024 2:30 PM EST OT/PT/Speech Visit [facility] [address] [place] [address] Shara Tapia, PT [address] [place] [address] Parkinson's disease with dyskinesia, unspecified whether manifestations fluctuate (HCC) [G20.B1] [facility] Comment on above: Parkinson's disease with dyskinesia, uns pecified whether manifestations fluctuate (HCC) [G20.B1] Start: 09-22-2024 End: 09-22-2024 Patient encounter procedure 09/22/2024 2:30 PM EST Office Visit [facility] [address] [place] [address] Sayra Mabry MD [address] [address] ER Follow up [facility] Comment on above: ER Follow up Start: 09-10-2024 End: 09-10-2024 Patient encounter procedure 09/10/2024 10:45 AM EST Office Visit [facility] [address] [place] [address] Theresa Hunt APRN.DEALMAKER [address] [place] [address] Follow up visit [facility] Comment on above: Follow up visit Start: 09-01-2024 End: 09-01-2024 Patient encounter procedure 09/01/2024 11:00 AM EST Office Visit Family Medicine [place] [address] [place], [place] [address] Jean Carlos Resendiz PA-C [address] [place], [place] [phone] 6 wk follow up; labs [facility] [place] Comment on above: 6 wk follow up; labs Start: 08-31-2024 End: 08-31-2024 ambulatory [facility] Comment on above: Parkinson's disease with dyskinesia, uns pecified whether manifestations fluctuate (HCC) [G20.B1] Parkinson's disease with dyskinesia, unspecified whether manifestations fluctuate (HCC) [G20.B1]; Dysphagia, unspecified type [R13.10] Start: 08-27-2024 End: 08-27-2024 Patient encounter procedure 08/27/2024 10:30 AM EST Procedure [facility] [address] [place], [place] [address] Theresa Hunt APRN.DEALMAKER [address] [place] [address] AUTH GOOD (MEDICARE A&B) CAD - TPI (2 OF 3 FOR YEAR) [facility] Comment on above: AUTH GOOD (MEDICARE A&B) CAD - TPI (2 OF 3 FOR YEAR) Start: 08-25-2024 End: 08-25-2024 ambulatory 08/25/2024 11:45 AM EST OT/PT/Speech Visit [facility] [address] [place] [address] Shara Tapia, PT [address] [place], [place] [phone] Parkinson's disease with dyskinesia, unspecified whether manifestations fluctuate (HCC) [G20.B1] [facility] Comment on above: Parkinson's disease with dyskinesia, uns pecified whether manifestations fluctuate (HCC) [G20.B1] Start: 08-24-2024 End: 08-24-2024 ambulatory 08/24/2024 9:30 AM EST OT/PT/Speech Visit [facility] [address] [place] [address] Shara Tapia, PT [address] [place], [place] [phone] Parkinson's disease with dyskinesia, unspecified whether manifestations fluctuate (HCC) [G20.B1] [facility] Comment on above: Parkinson's disease with dyskinesia, uns pecified whether manifestations fluctuate (HCC) [G20.B1] Start: 08-21-2024 End: 11-20-2024 Basic metabolic 2000 panel - Serum or Plasma BASIC METABOLIC PANEL Lab Routine Hyponatremia Expected: 08/21/2024, Expires: 11/20/2024 [facility] Work Phone: Comment on above: Expected: 08/21/2024, Expires: Start: 08-20-2024 End: 08-20-2024 Patient encounter procedure 08/20/2024 10:45 AM EDT Procedure [facility] [address] [facility] [place] [address] Theresa Hunt APRN.DEALMAKER [address] [place], [place] [id number] TPIs [facility] Comment on above: TPIs Start: 08-20-2024 End: 08-20-2024 ambulatory 08/20/2024 8:15 AM EDT Results Only [facility] [address] [facility] [place] [address] [facility] Start: 08-18-2024 End: 08-18-2024 ambulatory 08/18/2024 5:00 PM EDT OT/PT/Speech Visit [facility] [address] [place] [address] Shara Tapia, PT [address] [facility] [place] [address] Parkinson's disease with dyskinesia, unspecified whether manifestations fluctuate (HCC) [G20.B1] [facility] Comment on above: Parkinson's disease with dyskinesia, uns pecified whether manifestations fluctuate (HCC) [G20.B1] Start: 08-13-2024 End: 08-13-2024 ambulatory 08/13/2024 8:15 AM EDT Results Only [facility] [address] [place] [address] [facility] Start: 08-12-2024 Annual PCP Team Chronic Disease Visit Annual PCP Team Chronic Disease Visit [facility] Start: 08-10-2024 End: 08-10-2024 ambulatory 08/10/2024 11:45 AM EDT OT/PT/Speech Visit [facility] [address] [place] [address] Shara Tapia, PT [address] [facility] [place] [address] Parkinson's disease with dyskinesia, unspecified whether manifestations fluctuate (HCC) [G20.B1] [facility] Comment on above: Parkinson's disease with dyskinesia, uns pecified whether manifestations fluctuate (HCC) [G20.B1] Start: 07-31-2024 End: 07-31-2024 Patient encounter procedure 07/31/2024 9:30 AM EDT Office Visit Neurology [address] [phone] Sayra Mabry MD [address] [address] Hospital follow up (R/S from 07/14) Neurology Comment on above: Hospital follow up (R/S from 07/14) Start: 07-21-2024 End: 07-21-2024 Patient encounter procedure 07/21/2024 4:00 PM EDT Office Visit Internal Medicine [place] [address] [place] [address] Lucía Rizzo MD [address] [place] [address] hosp f/u Internal Medicine [place] Comment on above: hosp f/u Start: 07-19-2024 Annual PCP Team Chronic Disease Visit Annual PCP Team Chronic Disease Visit [facility] Start: 07-14-2024 End: 07-14-2024 Patient encounter procedure 07/14/2024 2:00 PM EDT Office Visit Neurology [address] [phone] Sayra Mabry MD [address] [place], [place] [address], [place] [address] Return in about 3 months (around 06/25/2024). 60 minutes per [facility] Neurology Comment on above: Return in about 3 months (around ). 60 minutes per [facility] Start: 07-08-2024 BP Controlled (<130/80) BP Controlled (<130/80) [facility] Start: 06-30-2024 End: 06-30-2024 Follow-up encounter 06/30/2024 4:15 PM EDT [facility] [place] [address] [facility] [address] [place] [address] Theresa Hunt APRN.DEALMAKER [address] [place] [address] 2 month follow up [facility] [place] Comment on above: 2 month follow up Start: 06-25-2024 End: 06-25-2024 Follow-up encounter 06/25/2024 12:30 PM EDT [facility] [place] [address] [place] [phone] Era Gagnon PA-C [address] [place], [place] [phone] follow up, GERD, schatzki's ring, other constipation [facility] [place] Comment on above: follow up, GERD, schatzki's ring, other constipation Start: 06-21-2024 Covid-19 Vaccine ( season) Covid-19 Vaccine ( season) [facility] Start: 06-21-2024 Covid-19 Vaccine ( season) Covid-19 Vaccine ( season) [facility] Start: 06-21-2024 Influenza vaccination Influenza Vaccine (#[facility]) [facility] Start: 06-18-2024 BP CONTROLLED (<130/80) BP CONTROLLED (<130/80) [facility] Start: 06-16-2024 End: 06-16-2024 Patient encounter procedure 06/16/2024 10:00 AM EDT Appointment Radiology [address] [place] [address] Meningioma (HCC) [D32.9] Radiology Comment on above: Meningioma (HCC) [D32.9] Start: 06-11-2024 End: 06-11-2024 Patient encounter procedure 06/11/2024 1:30 PM EDT Office Visit [facility] [address] [place] [address] Jak Diaz MD [address] [facility] [address] [place] [address] [place] [address] 3 month follow up [facility] Comment on above: 3 month follow up Start: 06-05-2024 End: 06-05-2024 Patient encounter procedure 06/05/2024 3:20 PM EDT Office Visit Internal Medicine [place] [address] [place] [address] Lucía Rizzo MD [address] [place] [address] 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 See phone encounter. Internal Medicine [place] Comment on above: 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 See phone encounter. Start: 06-05-2024 End: 09-04-2024 25-hydroxyvitamin D3 [Mass/volume] in Serum or Plasma VITAMIN D 25 HYDROXY Lab Routine Vitamin D deficiency Expected: 06/05/2024, Expires: 09/04/2024 [facility] Comment on above: Expected: 06/05/2024, Expires: Start: 06-05-2024 ANNUAL PCP TEAM CHRONIC DISEASE VISIT ANNUAL PCP TEAM CHRONIC DISEASE VISIT [facility] Start: 06-05-2024 BP CONTROLLED (<130/80) BP CONTROLLED (<130/80) [facility] Start: 05-21-2024 BP CONTROLLED (<130/80) BP CONTROLLED (<130/80) [facility] Start: 05-15-2024 ANNUAL PCP TEAM CHRONIC DISEASE VISIT ANNUAL PCP TEAM CHRONIC DISEASE VISIT [facility] Start: 05-15-2024 BP CONTROLLED (<130/80) BP CONTROLLED (<130/80) [facility] Start: 04-30-2024 End: 04-30-2024 Follow-up encounter 04/30/2024 10:15 AM EDT [facility] [place] [address] [place] [address] Theresa Hunt APRN.DEALMAKER [address] [place] [address] 6 week follow up to discuss TPI [facility] [place] Comment on above: 6 week follow up to discuss TPI Start: 04-05-2024 ANNUAL PCP TEAM CHRONIC DISEASE VISIT ANNUAL PCP TEAM CHRONIC DISEASE VISIT [facility] Start: 04-05-2024 BP CONTROLLED (<130/80) BP CONTROLLED (<130/80) [facility] Start: 03-27-2024 End: 03-27-2024 Patient encounter procedure 03/27/2024 2:20 PM EDT Office Visit Neurology [address] [place] [address] Ranjan Connolly Jr., MD [address] [facility] [address] [place] [phone] 3 month follow up parkinsons Neurology Comment on above: 3 month follow up parkinsons Start: 03-25-2024 BP CONTROLLED (<130/80) BP CONTROLLED (<130/80) [facility] Start: 03-25-2024 End: 03-25-2024 Patient encounter procedure 03/25/2024 2:00 PM EDT Office Visit Neurology [address] [facility] [address] [place] [address] Sayra Mabry MD [address] [place] [address] [address] [place] [address] PCP wants pt to see this provider Neurology Comment on above: PCP wants pt to see this provider Start: 03-23-2024 End: 03-23-2024 Patient encounter procedure 03/23/2024 10:55 AM EDT Office Visit Gastroenterology [place] [address] [facility] [phone] Era Gagnon PA-C [address] [facility] [address] follow up for dysphagia Gastroenterology [place] Comment on above: follow up for dysphagia Start: 03-19-2024 End: 03-19-2024 Patient encounter procedure [facility] Comment on above: TPIs cervical paraspinals, upper traps, bilaterally [(MEDICARE A&B) AUTH GOOD INTER FOLD ROLL CUTTER] TPIs cervical paraspinals, upper traps, bilaterally Start: 12-31-2023 End: 03-31-2024 Lipid 1996 panel - Serum or Plasma LIPID PANEL BASIC Lab Routine Mixed hyperlipidemia Expected: 12/31/2023, Expires: 03/31/2024 [facility] Work Phone: Comment on above: Expected: 12/31/2023, Expires: Start: 12-29-2023 ANNUAL PCP TEAM CHRONIC DISEASE VISIT ANNUAL PCP TEAM CHRONIC DISEASE VISIT [facility] Start: 12-29-2023 BP CONTROLLED (<130/80) BP CONTROLLED (<130/80) [facility] Start: 11-04-2023 End: 02-03-2024 25-hydroxyvitamin D3 [Mass/volume] in Serum or Plasma VITAMIN D 25 HYDROXY Lab Routine Vitamin D deficiency Expected: 11/04/2023 (Approximate), Expires: 02/03/2024 [facility] Work Phone: Comment on above: Expected: 11/04/2023 (Approximate), Expi res: 02/03/2024 Start: 11-04-2023 End: 02-03-2024 Basic metabolic 2000 panel - Serum or Plasma BASIC METABOLIC PNL Lab Routine Hypotension, unspecified hypotension type Expected: 11/04/2023 (Approximate), Expires: 02/03/2024 [facility] Work Phone: Comment on above: Expected: 11/04/2023 (Approximate), Expi res: 02/03/2024 Start: 11-04-2023 End: 02-03-2024 CBC panel - Blood by Automated count CBC Lab Routine Hypotension, unspecified hypotension type Expected: 11/04/2023 (Approximate), Expires: 02/03/2024 [facility] Work Phone: Comment on above: Expected: 11/04/2023 (Approximate), Expi res: 02/03/2024 Start: 11-04-2023 End: 02-03-2024 Lipid 1996 panel - Serum or Plasma LIPID PANEL BASIC Lab Routine Mixed hyperlipidemia Expected: 11/04/2023 (Approximate), Expires: 02/03/2024 [facility] Work Phone: Comment on above: Expected: 11/04/2023 (Approximate), Expi res: 02/03/2024 Start: 11-04-2023 End: 02-03-2024 Thyrotropin [Units/volume] in Serum or Plasma TSH BLD Lab Routine Hypothyroidism, unspecified type Expected: 11/04/2023 (Approximate), Expires: 02/03/2024 [facility] Work Phone: Comment on above: Expected: 11/04/2023 (Approximate), Expi res: 02/03/2024 Start: 11-04-2023 End: 02-03-2024 Thyroxine (T4) free [Mass/volume] in Serum or Plasma T4 FREE/FREE THYROX Lab Routine Hypothyroidism, unspecified type Expected: 11/04/2023 (Approximate), Expires: 02/03/2024 [facility] Work Phone: Comment on above: Expected: 11/04/2023 (Approximate), Expi res: 02/03/2024 Start: 10-21-2023 Advance Directive Discussion Advance Directive Discussion [facility] Start: 10-21-2023 Depression Assessment Depression Assessment [facility] Start: 09-20-2023 End: 09-20-2023 [facility] Start: 09-20-2023 Ambulation therapy management [facility] Start: 07-31-2023 ANNUAL PCP TEAM CHRONIC DISEASE VISIT ANNUAL PCP TEAM CHRONIC DISEASE VISIT [facility] Start: 07-31-2023 BP CONTROLLED (<130/80) BP CONTROLLED (<130/80) [facility] Start: 07-26-2023 BP CONTROLLED (<130/80) BP CONTROLLED (<130/80) [facility] Start: 06-21-2023 Covid-19 Vaccine () Covid-19 Vaccine ( season) [facility] Start: 06-21-2023 Influenza vaccination [facility] Start: 06-11-2023 BP CONTROLLED (<130/80) BP CONTROLLED (<130/80) [facility] Start: 05-31-2023 [facility] Start: 05-21-2023 BP CONTROLLED (<130/80) BP CONTROLLED (<130/80) [facility] Start: 05-01-2023 ANNUAL PCP TEAM CHRONIC DISEASE VISIT ANNUAL PCP TEAM CHRONIC DISEASE VISIT [facility] Start: 05-01-2023 BP CONTROLLED (<130/80) BP CONTROLLED (<130/80) [facility] Start: 04-10-2023 BP CONTROLLED (<130/80) BP CONTROLLED (<130/80) [facility] Start: 12-28-2022 ANNUAL PCP TEAM CHRONIC DISEASE VISIT ANNUAL PCP TEAM CHRONIC DISEASE VISIT [facility] Start: 12-24-2022 Adult depression screening assessment DEPRESSION SCREENING [facility] Start: 11-27-2022 COVID-19 VACCINE (6 - Moderna series) COVID-19 VACCINE (6 - Moderna series) [facility] Start: 10-21-2022 ADVANCE DIRECTIVE DISCUSSION ADVANCE DIRECTIVE DISCUSSION [facility] Start: 10-21-2022 DEPRESSION ASSESSMENT DEPRESSION ASSESSMENT [facility] Start: 06-21-2022 Influenza vaccination INFLUENZA (#1) [facility] Start: 05-28-2022 COVID-19 VACCINE (5 - Booster for Moderna series) COVID-19 VACCINE (5 - Booster for Moderna series) [facility] Start: 05-01-2022 End: 07-01-2022 25-hydroxyvitamin D3 [Mass/volume] in Serum or Plasma VITAMIN D 25 HYDROXY Lab Routine Vitamin D deficiency Expected: 05/01/2022, Expires: 07/01/2022 [facility] Work Phone: Comment on above: Expected: 05/01/2022, Expires: Start: 05-01-2022 End: 07-01-2022 CBC W Auto Differential panel - Blood CBC + DIFF Lab Routine Numbness and tingling Expected: 05/01/2022, Expires: 07/01/2022 [facility] Work Phone: Comment on above: Expected: 05/01/2022, Expires: 2 Start: 05-01-2022 End: 07-01-2022 Cobalamin (Vitamin B12) [Mass/volume] in Serum or Plasma VITAMIN B12 BLOOD Lab Routine Numbness and tingling Expected: 05/01/2022, Expires: 07/01/2022 [facility] Work Phone: Comment on above: Expected: 05/01/2022, Expires: 2 Start: 05-01-2022 End: 07-01-2022 Comprehensive metabolic 2000 panel - Serum or Plasma COMP METABOLIC PANEL Lab Routine Numbness and tingling Expected: 05/01/2022, Expires: 07/01/2022 [facility] Work Phone: Comment on above: Expected: 05/01/2022, Expires: 2 Start: 05-01-2022 End: 07-01-2022 Thyrotropin [Units/volume] in Serum or Plasma TSH BLD Lab Routine Hypothyroidism, unspecified type Expected: 05/01/2022, Expires: 07/01/2022 [facility] Work Phone: Comment on above: Expected: 05/01/2022, Expires: 2 Start: 12-30-2021 COVID-19 VACCINE (4 - Booster for Moderna series) COVID-19 VACCINE (4 - Booster for Moderna series) [facility] Start: 10-21-2021 ADVANCE DIRECTIVE DISCUSSION ADVANCE DIRECTIVE DISCUSSION [facility] Start: 10-21-2021 DEPRESSION ASSESSMENT DEPRESSION ASSESSMENT [facility] Start: 2021 RSV Vaccine (1 - 1-dose 75+ series) RSV Vaccine (1 - 1-dose 75+ series) [facility] Start: 08-11-2012 SHINGRIX VACCINE (2 of 3) SHINGRIX VACCINE (2 of 3) [facility] Start: 08-21-2011 Medicare Annual Wellness Visit Medicare Annual Wellness Visit [facility] Start: 2006 RSV Vaccine (1 - 1-dose 60+ series) RSV Vaccine (1 - 1-dose 60+ series) [facility] Start: 05-22-2004 Urine microalbumin profile [facility] Start: 1991 COLOGUARD (FIT-DNA) COLOGUARD (FIT-DNA) [facility] Start: [address] COLONOGRAPHY [facility] Start: 1991 FECAL OCCULT BLOOD FECAL OCCULT BLOOD [facility] Start: 1991 SIGMOIDOSCOPY SIGMOIDOSCOPY [facility] Start: 1964 BP CONTROLLED (<130/80) BP CONTROLLED (<130/80) [facility] Start: 1964 Depression Screening Depression Screening [facility] Dstr nrolytc agnt parverteb fct addl crvcl/thora DSTR NROLYTC AGNT PARVERTEB FCT ADDL CRVCL/THORA Procedures Routine Cervical spondylosis without myelopathy Ordered: 10/02/2023 [facility] Work Phone: Comment on above: Ordered: 10/02/2023 Dstr nrolytc agnt parverteb fct sngl crvcl/thora DSTR NROLYTC AGNT PARVERTEB FCT SNGL CRVCL/THORA Procedures Routine Cervical spondylosis without myelopathy Ordered: 10/02/2023 [facility] Work Phone: Comment on above: Ordered: 10/02/2023 Hemoglobin.gastroint es tinal.lower [Presence] in Stool by Immunoassay IMMUNOCHEMICAL FECAL OCCULT BLOOD TEST Lab Routine Anemia, unspecified type Ordered: 01/04/2025 [facility] Comment on above: Ordered: 01/04/2025 Injection single/government contracts manager trigger point 3/> muscles TRIGGER POINT INJECTION MULTI 3+ MUSCLE GRP Procedures Routine Myofascial pain Ordered: 03/19/2024 [facility] Work Phone: Comment on above: Ordered: 03/19/2024 Injection single/government contracts manager trigger point 3/> muscles TRIGGER POINT INJECTION MULTI 3+ MUSCLE GRP Procedures Routine Myofascial pain Ordered: 07/02/2024 [facility] Work Phone: Comment on above: Ordered: 07/02/2024 End: 07-23-2026 MR Brain WO and W contrast IV MRI BRAIN WO/W IVCON Radiology Routine Benign neoplasm of meninges (HCC) 1 Occurrences starting 06/23/2025 until 07/23/2026 [facility] Work Phone: Comment on above: 1 Occurrences starting 06/23/2025 until 07/23/2026 End: 06-04-2024 Mri brain brain stem w/o w/contrast material MRI BRAIN WO/W IVCON Radiology Routine Meningioma (HCC) 1 Occurrences starting 05/06/2023 until 06/04/2024 [facility] Work Phone: Comment on above: 1 Occurrences starting 05/06/2023 until 06/04/2024 Njx dx/ther agt pvrt facet jt crv/thrc 1 level NJX DX/THER AGT PVRT FACET JT CRV/THRC 1 LEVEL Procedures Routine Cervical spondylosis without myelopathy Ordered: 08/07/2023 [facility] Work Phone: Comment on above: Ordered: 08/07/2023 Njx dx/ther agt pvrt facet jt crv/thrc 1 level NJX DX/THER AGT PVRT FACET JT CRV/THRC 1 LEVEL Procedures Routine Cervical spondylosis without myelopathy Ordered: 08/26/2023 [facility] Work Phone: Comment on above: Ordered: 08/26/2023 Njx dx/ther agt pvrt facet jt crv/thrc 2nd level NJX DX/THER AGT PVRT FACET JT CRV/THRC 2ND LEVEL Procedures Routine Cervical spondylosis without myelopathy Ordered: 08/07/2023 [facility] Work Phone: Comment on above: Ordered: 08/07/2023 Njx dx/ther agt pvrt facet jt crv/thrc 2nd level NJX DX/THER AGT PVRT FACET JT CRV/THRC 2ND LEVEL Procedures Routine Cervical spondylosis without myelopathy Ordered: 08/26/2023 [facility] Work Phone: Comment on above: Ordered: 08/26/2023 Patient Education [facility] Work Phone: Patient referral [facility] Work Phone: PT PLAN OF CARE CERTIFICATION PT PLAN OF CARE CERTIFICATION Procedures Routine Neck pain Neck muscle weakness Ordered: 04/09/2023 [facility] Work Phone: Comment on above: Ordered: 04/09/2023 PT PLAN OF CARE CERTIFICATION PT PLAN OF CARE CERTIFICATION Procedures Routine Neck pain Neck muscle weakness Ordered: 05/02/2023 [facility] Work Phone: Comment on above: Ordered: 05/02/2023 End: 05-04-2024 [facility] spine cervical 4 or 5 views XR CERV OTHER 4V AP/LAT/OBL Radiology Routine Neck pain 1 Occurrences starting 04/05/2023 until 05/04/2024 [facility] Work Phone: Comment on above: 1 Occurrences starting 04/05/2023 until 05/04/2024 [facility] spine cervical 4 or 5 views XR CERV OTHER 4V AP/LAT/OBL Radiology Routine Neck pain 04/05/2023 2:59 PM EDT [facility] Work Phone: End: 05-04-2024 [facility] spine thoracic 2 views XR THORACIC LIMITED 2V AP/LAT Radiology Routine Kyphosis of thoracic region, unspecified kyphosis type 1 Occurrences starting 04/05/2023 until 05/04/2024 [facility] Work Phone: Comment on above: 1 Occurrences starting 04/05/2023 until 05/04/2024 [facility] spine thoracic 2 views XR THORACIC LIMITED 2V AP/LAT Radiology Routine Kyphosis of thoracic region, unspecified kyphosis type 04/05/2023 2:59 PM EDT [facility] Work Phone: STREP A MOLECULAR (POC) STREP A MOLECULAR (POC) Microbiology Routine Sore throat Ordered: 03/22/2024 [facility] Work Phone: Comment on above: Ordered: 03/22/2024 SURGICAL PATHOLOGY SURGICAL PATH OLOGY Lab Routine Dysphagia, unspecified type Abnormal findings on diagnostic imaging of digestive system Release Upon Ordering for 1 Occurrences starting 11/29/2023 [facility] Work Phone: Comment on above: Release Upon Ordering for 1 Occurrences starting 11/29/2023 End: 08-31-2024 XR MODIFIED BARIUM SWALLOW W SPEECH THERAPY XR MODIFIED BARIUM SWALLOW W SPEECH THERAPY Radiology Routine Dysphagia, unspecified type 1 Occurrences starting 08/02/2023 until 08/31/2024 [facility] Work Phone: Comment on above: 1 Occurrences starting 08/02/2023 until 08/31/2024 XR MODIFIED BARIUM SWALLOW W SPEECH THERAPY XR MODIFIED BARIUM SWALLOW W SPEECH THERAPY Radiology Routine Dysphagia, unspecified type 09/17/2023 10:10 AM EST [facility] Work Phone: [facility] Immunizations Immunization Date Immunization Notes Care Provider [facility] 07-14-2024 tetanus toxoid, redu stephany diphtheria toxoid, and acellular pertussis vaccine, adsorbed Sayra Mabry MD Work Phone: [facility] 07-19-2023 influenza (HD-IIV4) vaccine, age 65+ yr, high dose, quadrivalent, PF (FLUZONE HIGH-DOSE) Sandra Centeno PA-C Work Phone: [facility] Work Phone: 07-19-2023 influenza virus vacc ine, unspecified formulation Theresa Hunt TILE SETTER SUPERVISOR.DEALMAKER Work Phone: [facility] 07-31-2022 influenza, high-dose , quadrivalent vaccine (FLUZONE HIGH DOSE QUADRIVALENT) Eunice Camarena Therapist [facility] Work Phone: 07-31-2022 influenza virus vacc ine, unspecified formulation Jak Diaz MD Work Phone: [facility] 07-27-2022 COVID-19 booster vaccine, age 12+ yr, bivalent (PFIZER-BIONTECH) Eunice Camarena Therapist [facility] Work Phone: 04-02-2022 COVID-19 vaccine, booster dose (MODERNA) Deandra Ely TILE SETTER SUPERVISOR.DEALMAKER Work Phone: [facility] Work Phone: 06-30-2021 influenza, high-dose , quadrivalent vaccine (FLUZONE HIGH DOSE QUADRIVALENT) Ranjan Connolly Jr., MD Work Phone: [facility] Work Phone: 01-13-2021 COVID-19 vaccine, fu ll dose (MODERNA) Ranjan Connolly Jr., MD Work Phone: [facility] Work Phone: 12-16-2020 COVID-19 vaccine, fu ll dose (MODERNA) Ranjan Connolly Jr., MD Work Phone: [facility] 07-04-2020 influenza, high-dose , quadrivalent vaccine (FLUZONE HIGH DOSE QUADRIVALENT) Ranjan Connolly Jr., MD Work Phone: [facility] 08-03-2019 influenza, high dose seasonal, preservative-free Ranjan Connolly Jr., MD Work Phone: [facility] 08-03-2019 Seasonal trivalent influenza vaccine, adjuvanted, preservative free Ranjan Connolly Jr., MD Work Phone: [facility] 07-28-2018 influenza, high dose seasonal, preservative-free Ranjan Connolly Jr., MD Work Phone: [facility] 07-28-2018 Seasonal trivalent influenza vaccine, adjuvanted, preservative free Ranjan Connolly Jr., MD Work Phone: [facility] 07-29-2017 influenza, high dose seasonal, preservative-free Ranjan Connolly Jr., MD Work Phone: [facility] Work Phone: 07-29-2017 Seasonal trivalent influenza vaccine, adjuvanted, preservative free Ranjan Connolly Jr., MD Work Phone: [facility] 07-30-2016 influenza, high dose seasonal, preservative-free Ranjan Connolly Jr., MD Work Phone: [facility] 10-24-2015 pneumococcal conjuga te vaccine, 13 valent Ranjan Connolly Jr., MD Work Phone: [facility] 07-21-2015 influenza, high dose seasonal, preservative-free Ranjan Connolly Jr., MD Work Phone: [facility] 07-30-2014 influenza, high dose seasonal, preservative-free Ranjan Connolly Jr., MD Work Phone: [facility] 07-29-2012 influenza virus vacc ine, unspecified formulation Ranjan Connolly Jr., MD Work Phone: [facility] 06-16-2012 zoster vaccine, live Ranjan Connolly Jr., MD Work Phone: [facility] 01-01-2012 pneumococcal polysaccharide vaccine, 23 valent Ranjan Connolly Jr., MD Work Phone: [facility] 07-27-2010 influenza virus vacc ine, unspecified formulation Ranjan Connolly Jr., MD Work Phone: [facility] 08-16-2009 influenza virus vacc ine, unspecified formulation Ranjan Connolly Jr., MD Work Phone: [facility] Work Phone: 05-21-2004 tetanus and diphther ia toxoids, adsorbed, preservative free, for adult use (2 Lf of tetanus toxoid and 2 Lf of diphtheria toxoid) Ranjan Connolly Jr., MD Work Phone: [facility] Work Phone: Payers Date Payer Category Payer Self-pay [id number] 2024 Unknown [id number] 2020 Private Health Insurance [facility] [employer] SUPPLEMENT [id number] 2020-Present [phone] [address] [place] [address] Indemnity [id number] 2020 Private Health Insurance [id number] 2020 Unknown [id number] 2011 Medicare MEDICARE MEDICAR E A AND B [id number] 2011-Present [phone] [address] [address] [place] [address] Medicare [id number] 2011 Medicare [id number] 2011 Medicare [id number] Unknown [id number] Unknown MED MUT SECONDARY [id number] Unknown [id number] Social History Date Type Detail Facility Start: 10-04-2020 End: 09-20-2023 Tobacco smoking status NHIS Unknown if ever smoked [facility] Start: 1945 Sex Assigned At Female C [facility] Start: 06-11-2022 Tobacco smoking stat us NHIS Never smoked tobacco [facility] Start: 01-04-2022 End: 06-04-2025 Alcohol intake Current non-drinker of alcohol (finding) [facility] Start: 12-25-2021 End: 12-22-2022 History SDOH Alcohol Frequency 2 [facility] Start: 12-25-2021 End: 12-22-2022 History SDOH Alcohol Std Drinks 1 [facility] Start: 12-25-2021 End: 12-22-2022 History SDOH Social Connections Phone 5 [facility] Start: 12-25-2021 End: 12-22-2022 History SDOH Social Connections Get Together 3 [facility] Start: 12-25-2021 History SDOH Social Connections Taoism 98 [facility] Start: 12-25-2021 End: 12-22-2022 History SDOH Financial 4 [facility] Start: 04-03-2020 Education 21 [facility] Start: 11-28-2020 End: 06-11-2022 Tobacco Comment Father smoked in childhood home. 2 spouses were smokers. [facility] Start: 03-31-2022 End: 08-07-2022 Exposure to SARS-CoV-2 (event) Not sure [facility] Work Phone: Start: 06-11-2022 Tobacco use and exposure Smoke less tobacco non-user [facility] Work Phone: Start: 12-22-2022 End: 03-25-2023 History of Social function [facility] Start: 12-22-2022 End: 03-25-2023 Social connection and isolation [facility] Do you belong to any clubs or organizations such as spiritism groups, unions, fraternal or athletic groups, or school groups? Yes [facility] Are you now , , , , never or living with a partner? [facility] How often to you hav e a drink containing alcohol? Monthly or less [facility] How many standard dr inks containing alcohol do you have on a typical day? 1 or 2 [facility] How often do you hav e 6 or more drinks on 1 occasion? Never [facility] How hard is it for y ou to pay for the very basics like food, housing, medical care, and heating Not very hard [facility] Start: 09-21-2012 Adult Depression Screening Assessment 2 [facility] Do you feel stress - tense, restless, nervous, or anxious, or unable to sleep at night because your mind is troubled all the time - these days [OSQ] Only a little [facility] (I/We) worried wheharjeet er (my/our) food would run out before (I/we) got money to buy more. Never true [facility] In the past 12 month s, was there a time when you were not able to pay the mortgage or rent on time? No [facility] Start: 07-30-2024 Gender identity Identifies as female gender (finding) [facility] Goals Date Patient Goal Desired Activity /State Functional Status Date Assessment Result Facility 07-15-2024 Are you deaf, or do you have serious difficulty hearing No 07/15/2024 5:15 PM Loraine Hunt RN No [facility] 07-15-2024 Are you blind, or do you have serious difficulty seeing, even when wearing glasses No 07/15/2024 5:15 PM Loraine Hunt RN No [facility] 07-15-2024 Do you have serious difficulty walking or climbing stairs Yes 07/15/2024 5:15 PM Loraine Hunt RN Yes [facility] 07-15-2024 Do you have difficul ty dressing or bathing Yes 07/15/2024 5:15 PM Loraine Hunt RN Yes [facility] 07-15-2024 Because of a physica l, mental, or emotional condition, do you have difficulty doing errands alone such as visiting a physician's office or shopping Yes 07/15/2024 5:15 PM Loraine Hunt RN Yes [facility] Mental Status Date Assessment Result Facility 07-15-2024 Because of a physica l, mental, or emotional condition, do you have serious difficulty concentrating, remembering, or making decisions Yes 07/15/2024 5:15 PM EDT Loraine Walker RN Yes [facility] 09-20-2023 Cognitive function Level Of Cons ciousness Awake;Alert;Appropriate;Fol lows Commands [facility] Work Phone: 05-31-2023 Cognitive function Level Of Cons ciousness Awake;Alert;Appropriate;Fol lows Commands [facility] Work Phone: Clinical Notes 03-12-2022 to 08-30-2025 Deandra Ely APRN.DEALMAKER - 06/23/2025 10:15 AM EDTTelephone Encounter - Navid Aguilera - 06/22/2025 8:17 AM EDTTelephone Encounter - Navid Aguilera - 06/22/2025 8:17 AM EDT Note Date & Type Note Facility 08-30-2025 Note HNO ID: [id number] Author: SUNDAY ALEXANDER PA-C Service: ? Author Type: Physician Platform Material Handling Supervisor Type: Progress Notes Filed: 08/30/2025 09:05 Note Text: FOLLOW UP - PSYCHIATRIC PROGRESS NOTE Visit Type:Virtual Visit utilizing two-way audio and video for at least a portion of the visit. Consent for virtual visit obtained verbally. Confidentiality limitations with virtual visits reviewed with the patient and guardian, if present, who have accepted the risk verbally prior to proceeding with encounter. I have communicated my name and active licensure. The patient's identity and physical location were verified at the time of this visit. Either the patient or their legal auto service representative has been informed of the risks and benefits of -- and alternatives to -- treatment through a remote evaluation and consents to proceed with the evaluation remotely. Reason for Visit: Outpatient follow-up and safety monitoring of previously prescribed psychiatric medication, psychotherapy or other treatment CC: Follow up HPI: Patient is a 80-year-old female with a history of Parkinson's disease, presenting for evaluation of increased hallucinations, anxiety, and sleep disturbances. She is accompanied by her daughter, who provides additional history. The patient reports a recent increase in hallucinations, which have become more distressing. Previously, she experienced pleasant hallucinations, but now she sees children accompanied by an adult male whom she finds frightening and untrustworthy. These hallucinations occur primarily in the evening and morning but can happen at any time. She hears noises associated with the hallucinations, such as footsteps and chairs moving, but the male figure does not speak to her. She also reports increased anxiety, which she believes is secondary to the hallucinations. Her sleep is significantly disrupted, with only about two hours of uninterrupted sleep per night. She has begun sleepwalking occasionally in the past month and a half, once attempting to leave the house during an episode. She is currently taking mirtazapine at 2300 hours for sleep and anxiety and hydroxyzine up to three times a day for panic episodes. She notes that hydroxyzine has been effective in managing her anxiety and refers to it as a mood stabilizer. Her last dose of hydroxyzine is at 1630 hours. She expresses concern about her fluctuating blood pressure, which can drop from 110 to 40, and is worried about the potential impact of new medications on her blood pressure. Risks and benefits of the medication, including any black box warnings, were discussed with the patient. Interval Progress: Worse PATIENT DATA: Generalized Anxiety Disorder Scale (EVAN-7) 07/10/2025 08/07/2025 08/29/2025 EVAN - 7 SCORES Score 9 8 16 (0-4) minimal anxiety, (5-9) mild anxiety, (10-14) moderate anxiety, (15-21) severe anxiety Patient Health Questionnaire (PHQ-9) 04/11/2025 07/10/2025 08/29/2025 PHQ-9 Score 8 12 15 (0-4) minimal depression, (5-9) mild depression, (10-14) moderate depression, (15-19) moderately severe depression, (20-27) severe depression PROMIS [employer] 12/23/2024 04/04/2025 07/10/2025 PROMIS Global Health - (T-Scores - the mean of general population = 50. Five points is a clinically meaningful difference.) Physical T-Score 42.3 42.3 37.4 39.8 Mental T-Score 43.5 43.5 48.3 43.5 PAST MEDICAL HISTORY Diagnosis Date Diverticulosis of [...] NONOBSTETRIC 09/1982 Dilation AND curettage EGD W/O BRSH SPEC VARICIES INJ 11/29/2023 PAST SURGICAL HISTORY OF 02/1996 EMB TONSILLECTOMY AND ADENOIDECTOMY T/A (under age 12 years) Current Outpatient Medications Medication Sig Dispense Refill midodrine (PROAMITINE) 5 mg tablet Take 1 tablet by mouth three times a day as needed. 30 tablet 2 fludrocortisone (FLORINEF) 0.1 mg tablet Take 1 tablet by mouth once daily. 90 tablet 3 hydrOXYzine HCl (ATARAX) 25 mg tablet Take 1 tablet by mouth three times a day as needed. 270 tablet 1 Mirtazapine (REMERON) 7.5 mg tablet Take 1 tablet by mouth daily at bedtime. 90 tablet 3 sertraline (ZOLOFT) 100 mg tablet Take 1 tablet by mouth once daily. [address] (PROTONIX) 40 mg tablet Take 1 tablet by mouth once daily. On empty stomach at least 30 minutes before eating. 90 tablet 3 levothyroxine (SYNTHROID) 75 mcg tablet Take 1 tablet by mouth once d (more content not included)... [facility] 08-09-2025 Note HNO ID: [id number] Author: LUCÍA RIZZO MD Service: ? Author Type: Physician Type: Progress Notes Filed: 08/09/2025 18:07 Note Text: Lou Oliver is a 80 year old female here for a Medicare wellness visit. Medicare Health Risk Assessment General Health Good Exercise: Minutes/Day 40 min Exercise: Days/Week 5 days Alcohol: Daily Use Monthly or less Alcohol: Drinks/Day Patient does not drink Alcohol: 6 or more drinks Never Feel off balance Yes Concerns: Teeth/Dentures No Concerns: Sexual function No Troubled by feelings Anxious; Stressed; Lonely; Isolated Frequency: Eating healthy diet Several days ADLs requiring help Grocery shopping; Housework; Sitting or standing; Walking; Taking medications Safety precautions in home/vehicle Yes Smoke, vape, chews tobacco No Difficulty hearing Yes Difficulty seeing Yes Current Providers Specialists: I have reviewed specialist-related care of the patient in the medical record. Medical/Family history review Reviewed and updated problem list, medical/surgical/family/social history, medications, and allergies. Opioid use review Prescribed: No opioid use on file in the last 90 days Patient-reported: No opioid use on file in the last 90 days Depression screening PHQ-2 Score: 2 (07/10/2025 9:08 PM) PHQ-9 Score: 12 (07/10/2025 9:08 PM) Based on score and interview, patient is not at risk for depression. Recommendation: no further intervention at this time Anxiety screening EVAN-2 Total Score: 2 (08/07/2025 1:46 PM) EVAN-7 Total Score: 8 (08/07/2025 1:46 PM) Cognitive screening Mini Cog Score: 5 Cognitive screening reviewed and No further action needed (score 3-5). Functional Observation Was the patient's Timed Up AND Go test unsteady or >= 12 seconds? Yes Advance Directives Surrogate decision maker and/or advance care plan documented Measurements BP (!) 75/41 Pulse 81 Resp 16 Wt 57.6 kg (127 lb) BMI 22.50 kg/m? Vision Screening: Follows with optometry/ophthalmology Assessment/Plan Medicare annual wellness visit, subsequent (Z00.00) - Counseled on healthy diet and regular exercise - Fall avoidance information provided - Personalized prevention plan provided Reason for Visit Medicare and falls. LUIGI Blake is a 80-year-old female with a history of Parkinson's disease and autonomic dysfunction, accompanied by her niece, presenting for recurrent falls and neck pain. Lou reports frequent falls, occurring approximately once or twice a week, often associated with episodes of syncope. She attributes these falls to both her Parkinson's disease and her neck pain, which she describes as a constant spasm affecting her 95% of the time. The pain is alleviated by her carbidopa medication, which she takes regularly. She notes that her medication schedule has been adjusted by Dr. Mabry, but she now finds it difficult to go more than 3 hours between doses, whereas she previously could manage 4 hours. Lou also reports significant fluctuations in her blood pressure, with readings varying from 77 mmHg to 147 mmHg. She is currently taking midodrine on an as-needed basis, typically 2-3 times a week, when her blood pressure falls below 110 mmHg. She has been hesitant to take it more frequently due to concerns about potential side effects, including the risk of myocardial infarction. Her niece, who is closely involved in her care, suggests that she should take a lower dose of midodrine (2.5 mg) daily to stabilize her blood pressure. Lou lives alone but has a strong support system, including her niece and two daughters, one of whom recently moved closer to provide additional assistance. She is currently undergoing physical therapy and uses a rollator for mobility. She also has a neck brace but finds it uncomfortable and does not wear it consistently. Her niece is concerned about her safety and well-being, particularly given her history of falls and fluctuating blood pressure. SOCIAL HISTORY[1] Past medical history, appointments, medications, allergies reviewed. Pertinent Lab/Diagnostic Studies are reviewed and discussed today Current Outpatient Medications: fludrocortisone (FLORINEF) 0.1 mg tablet hydrOXYzine HCl (ATARAX) 25 mg tablet Mirtazapine (REMERON) 7.5 mg tablet sertraline (ZOLOFT) [address] (PROTONIX) 40 mg tablet levothyroxine (SYNTHROID) 75 mcg tablet sertraline (ZOLOFT) 50 mg tablet pravastatin (PRAVACHOL) 20 mg tablet ondansetron orally disintegrating (ZOFRAN ODT) 4 mg disintegrating tablet LORazepam (ATIVAN) 0.5 mg Cholecalciferol, Vitamin D3, 50 mcg (2,000 unit) cap midodrine (PROAMITINE) 5 mg tablet carbidopa-levodopa (SINEMET 25-100) 25-100 mg per tablet carbidopa-levodopa CR (SINEMET CR) 50-200 mg per tablet Health Maintenance Shingrix Vaccine(2 of 3) RSV Vaccine(1 - 1-dose 75+ series) Advance Directive Discussion Covid-19 Vaccine(6 - 20 (more content not included)... [facility] 07-12-2025 Note HNO ID: [id number] Author: SAYRA MABRY MD Service: ? Author Type: Physician Type: Progress Notes Filed: 07/18/2025 15:14 Note Text: [facility] - FOLLOW UP EVALUATION Recording using [employer] software for draft documentation of the visit was discussed with the patient/authorized auto service representative; all questions welcomed and answered. Patient/authorized auto service representative agreed to proceed Lucía Rizzo MD [id number] [place] [address] Dear Lucía Rizzo MD: I had the pleasure of seeing Ms. Oliver for follow-up today. As you know she is a 80 year old left-handed female with a history of PD since 2019. Subjective Previous Plan- 03/11/2025 Visit: 1. Parkinson's disease with dyskinesia, unspecified whether manifestations fluctuate (HCC) (G20.B1) - Experiencing increased off periods, particularly around 3:30 PM and 7:30 PM, with symptoms of bradykinesia and freezing episodes. - Current medication regimen includes Sinemet, with doses at 4:00 AM, 7:30 AM, 11:30 AM, 3:30 PM, 7:30 PM, and 11:00-11:15 PM. - Dyskinesia noted during examination- mild - Discussed potential addition of amantadine to manage dyskinesia and extend the duration of Sinemet's effect; patient prefers to avoid adding new medications at this time. - Advised taking Sinemet doses on an empty stomach, particularly the 3:30 PM and 7:30 PM doses, to enhance absorption and efficacy. - Increased 7:30 PM Sinemet dose to 2 tablets. - Added an extra half tablet of Sinemet at 2:30 PM on exercise days to prevent wearing off at 3:30. - Updated Sinemet prescription to reflect new dosing schedule - Follow-up in 4 months to reassess symptoms and medication efficacy. 2. Orthostatic hypotension (I95.1) - Blood pressure generally well-controlled with fludrocortisone; midodrine not currently being used. - Advised patient to monitor blood pressure more diligently, especially with changes in Parkinson's medication. - Educated on taking midodrine with breakfast, lunch, and dinner if needed, but not later to avoid supine hypertension. - Patient performing [id number] exercises without dizziness. 3. Anxiety disorder, unspecified type (F41.9) - Anxiety symptoms improved with current treatment of mirtazapine. - Patient reports better sleep and increased appetite. - Continue current mirtazapine regimen. - continue follow-up with psychiatry Interval History: Lou Oliver is a 80-year-old female with Parkinson's disease and orthostatic hypotension presenting for follow-up. She is accompanied by her daughters who provide additional history. Lou reports improvement in her daily nausea, which now occurs only occasionally. She has found that eating smaller, more frequent meals helps manage her symptoms, while larger meals tend to worsen her condition. She continues to experience significant orthostatic hypotension, which she describes as her biggest enemy. She reports a recent blood pressure reading as low as 68/42, which made her feel sick and caused her legs to feel weak. She notes that her blood pressure readings are typically better in the morning and tend to drop at night. She continues to take midodrine as needed when her blood pressure is below 110, but she did not take it today because she forgot to check her blood pressure upon waking. Her current medication regimen includes carbidopa-levodopa. She reports that it takes 45 minutes to an hour after taking the medication to feel better. She has been adjusting the timing of her doses to accommodate her exercise classes, sometimes taking an extra half pill at 2:30 PM to prepare for a 3:30 PM class. She also takes a dose at 11:30 AM, which she moves around by about 30 minutes on exercise days. She also takes a dose at 4:00 AM along with her thyroid medication and steroids. Lou reports significant balance issues and falls at least once or twice a week. She describes her balance as terrible and notes that she can feel off balance even when her blood pressure is normal. She also experiences episodes during exercise classes where she feels lightheaded and has to sit down. She has not participated in one-on-one physical therapy at [place] since September due to the distance and difficulty arranging transportation, but she continues to attend group exercise classes in [place]. She also reports neck pain due to stenosis and finds that Tylenol is ineffective. She has been told not to take Aleve, but notes that it is the only medication that provides relief. She is concerned about the potential impact of Aleve on her kidneys and heart. Her current medications include hydroxyzine, which she takes three times a day, and mirtazapine, which helps her sleep. She also takes sertraline. She reports that hydroxyzine has been very helpful, but she is concerned about running out of refills before her next appointment in September. She (more content not included)... [facility] 06-23-2025 History of Present illness Narrative Images from the original note were not included. [facility] [place] [facility] NEURO-ONCOLOGY VIRTUAL VISIT NOTE I have communicated my name and active licensure. The patient's identity and physical location were verified at the time of this visit. Either the patient or their legal auto service representative has been informed of the risks [...] new MRI brain in 12 months at [place] - Reviewed signs and symptoms that would prompt sooner evaluation - The patient has our contact information and was advised to call if new symptoms, questions or concerns arise prior to next scheduled visit. - All questions were answered. Deandra Ely APRN.DEALMAKER Certified Nurse Practitioner cc: Semaj Rodriguez MD--EPIC Subjective HISTORY OF PRESENT ILLNESS: Lou Oliver is a 80 year old year old left-handed female who [...] issues with her Parkinson's such as imbalance. 06/23/35 Patient reports progression of Parkinson's disease symptoms, noting increased difficulty with daily activities and significant memory impairment. She believes she has moved into stage 3 of Parkinson's disease. Patient lives alone but has family members nearby who provide support. She reports feeling safe at home and continues to drive very minimally. Her daughter assists with transportation to medical appointments. SOCIAL HISTORY: Social History Tobacco Use Smoking [...] Rhinitis Daughter Colon Cancer No Family History Current Outpatient Medications Medication Sig levothyroxine (SYNTHROID) 75 mcg tablet Take 1 tablet by mouth once daily. Take on empty stomach. For Thyroid hydrOXYzine HCl (ATARAX) 25 mg tablet Take 1 tablet by mouth three times a day as needed. carbidopa-levodopa (SINEMET 25-100) 25-100 mg per tablet Take 1 tab at 4AM, 1 tab at 7AM, 2 tabs at 11AM, 1/2 tab at 230pm on exercise days, 2 tabs at 3PM and 2 tabs at 7PM. sertraline (ZOLOFT) 100 mg tablet Take 1 tablet by mouth once daily. sertraline (ZOLOFT) 50 mg tablet Take 1 tablet by mouth once daily. Take a total of 150 mgs daily. mirtazapine (REMERON) 7.5 mg tablet Take 1 tablet by mouth daily at bedtime. pravastatin (PRAVACHOL) 20 mg tablet Take 1 tablet by mouth daily at bedtime. carbidopa-levodopa CR (SINEMET CR) 50-200 mg per tablet TAKE 1 TABLET BY MOUTH in Morning and before bedtime as instructed. midodrine (PROAMATINE) 10 mg tablet Take 1 tablet by mouth every 8 hours. (Patient taking differently: Take 10 mg by mouth every 8 hours. Takes only if systolic is below 110) ondansetron orally disintegrating (ZOFRAN ODT) 4 mg disintegrating tablet Take 1 tablet by mouth every 8 hours as needed for nausea/vomiting. pantoprazole DR (PROTONIX) 40 mg tablet Take 1 tablet by mouth once daily. On empty stomach at least 30 minutes before eating. fludrocortisone (FLORINEF) 0.1 mg tablet Take 1 tablet by mouth once daily. LORazepam (ATIVAN) 0.5 mg Take 0.5 mg [...] Good. IMAGING STUDIES: MRI Brain WO/W IVCON MRI Report MRI BRAIN WO/W IVCON Exam End: 06/17/2025 10:29 AM (Final result) Narrative: * * *Final Report* * * DATE OF EXAM: Jun 17 2025 10:29AM [facility] 0295 - MRI BRAIN WO/W IVCON / PROCEDURE REASON: Meningioma (HCC) * * * * Physician Interpretation * * * * EXAMINATION: MRI BRAIN WO/W IVCON Clinical history: As provided by the ordering clinician via order question entries: Primary neoplasm/metastasis/postop F/U. Meningioma. TECHNIQUE: Intracranial mass brain MRI protocol without and with contrast including diffusion. MQ: [id number] Contrast: 6 mL Elucirem IV Comparison: 07/14/[address] and 06/16/2024 brain MRI without and with contrast RESULT: Acute Change: No abnormal restricted diffusion to suggest an acute infarct. Hemorrhage: Unchanged small clustered foci susceptibility along the posterior right temporal subcortical white matter (series 9, image 31) suggesting small foci of remote microhemorrhage. Mass Lesion/ Mass Effect: Unchanged extra-axial dural based 3.1 x 1.4 x 2.8 cm (anteroposterior, oblique transverse, oblique craniocaudal) T2 slightly heterogenous, patella isointense, FLAIR isointense, T1 slightly hypointense, avidly, although somewhat heterogenously enhancing mass without restricted diffusion along the lateral left orbital frontal convexity with mild local mass effect on the adjacent left inferior frontal and orbital frontal gyri and mild associated confluent T2/FLAIR signal hyperintensity in the adjacent left frontal white matter. Minimal local mass effect. No midline shift. Chronic Change: Scattered patchy areas of T2/FLAIR hyperintensity in the supratentorial white matter, nonspecific, but likely representing mild chronic microvascular ischemic change. Parenchyma: No significant volume loss for age. The brain parenchyma is otherwise within normal limits of signal intensity and morphology. Ventricles: Ventricular calibers are commensurate with the parenchymal volume and normal in configuration. Skull Base: Hypothalamic and pituitary region are grossly normal. Craniocervical junction is normal. No significant marrow replacement process. Vasculature: Major intracranial arterial structures, and dural venous sinuses show typical flow void, suggesting patency by spin echo criteria. Incidental small developmental venous anomaly along the right middle frontal gyrus, right parietal operculum, and large developmental venous anomaly along involving the right orbitofrontal gyrus. Other: Trace mucosal thickening in the anterior ethmoid air cells. Tiny mucous retention cyst along the inferior margin of the right maxillary sinus. The paranasal sinuses are otherwise clear. Small focus of presumed fluid along the inferomedial right mastoid air cells, but otherwise clear mastoid air cells and middle ear cavities. The orbits are unremarkable. The extracranial soft tissues are within normal limits. Impression: IMPRESSION: Stable lateral left frontal convexity meningioma with mild local mass effect and adjacent brain parenchymal signal changes. Pot Fluxer: DOMENIC Transcribe Date/Time: Jun 17 2025 11:25A Dictated by : AYESHA FIGUEROA MD This examination was interpreted and the report reviewed and electronically signed by: AYESHA FIGUEROA MD on Jun 17 2025 11:38AM EST documented in this encounter [facility] 06-23-2025 Note HNO ID: [id number] Author: DEANDRA ELY APRN.ADRIANNA Service: ? Author Type: Nurse Practitioner Type: Progress Notes Filed: 06/23/2025 10:24 Note Text: [facility] [place] [facility] NEURO-ONCOLOGY VIRTUAL VISIT NOTE I have communicated my name and active licensure. The patient's identity and physical location were verified at the time of this visit. Either the patient or their legal auto service representative has been informed of the risks [...] new MRI brain in 12 months at [place] - Reviewed signs and symptoms that would prompt sooner evaluation - The patient has our contact information and was advised to call if new symptoms, questions or concerns arise prior to next scheduled visit. - All questions were answered. Deandra Ely APRN.DEALMAKER Certified Nurse Practitioner cc: Semaj Rodriguez MD--EPIC Subjective HISTORY OF PRESENT ILLNESS: Lou Oliver is a 80 year old year old left-handed female who [...] issues with her Parkinson's such as imbalance. 06/23/35 Patient reports progression of Parkinson's disease symptoms, noting increased difficulty with daily activities and significant memory impairment. She believes she has moved into stage 3 of Parkinson's disease. Patient lives alone but has family members nearby who provide support. She reports feeling safe at home and continues to drive very minimally. Her daughter assists with transportation to medical appointments. SOCIAL HISTORY: Social History Tobacco Use Smoking [...] Rhinitis Daughter Colon Cancer No Family History Current Outpatient Medications Medication Sig levothyroxine (SYNTHROID) 75 mcg tablet Take 1 tablet by mouth once daily. Take on empty stomach. For Thyroid hydrOXYzine HCl (ATARAX) 25 mg tablet Take 1 tablet by mouth three times a day as needed. carbidopa-levodopa (SINEMET 25-100) 25-100 mg per tablet Take 1 tab at 4AM, 1 tab at 7AM, 2 tabs at 11AM, 1/2 tab at 230pm on exercise days, 2 tabs at 3PM and 2 tabs at 7PM. sertraline (ZOLOFT) 100 mg tablet Take 1 tablet by mouth once daily. sertraline (ZOLOFT) 50 mg tablet Take 1 tablet by mouth once daily. Take a total of 150 mgs daily. mirtazapine (REMERON) 7.5 mg tablet Take 1 tablet by mouth daily at bedtime. pravastatin (PRAVACHOL) 20 mg tablet Take 1 tablet by mouth daily at bedtime. carbidopa-levodopa CR (SINEMET CR) 50-200 mg per tablet TAKE 1 TABLET BY MOUTH in Morning and before bedtime as instructed. midodrine (PROAMATINE) 10 mg tablet Take 1 tablet by mouth every 8 hours. (Patient taking differently: Take 10 mg by mouth every 8 hours. Takes only if systolic (more content not included)... [facility] 06-22-2025 Telephone encounter Note Patient's request for medication has been refused. See reason and notify patient. Requested Prescriptions Refused Prescriptions Disp Refills hydrOXYzine HCl (ATARAX) 25 mg tablet [Pharmacy Med Name: hydrOXYzine HCl Oral Tablet 25 MG] 90 tablet 0 Sig: TAKE 1 TABLET BY MOUTH 3 TIMES A DAY NEEDED Refused By: NAVID AGUILERA Reason for Refusal: Refill currently being reviewed in another request [facility] 06-22-2025 Miscellaneous Notes Patient's request for medication has been refused. See reason and notify patient. Requested Prescriptions Refused Prescriptions Disp Refills hydrOXYzine HCl (ATARAX) 25 mg tablet [Pharmacy Med Name: hydrOXYzine HCl Oral Tablet 25 MG] 90 tablet 0 Sig: TAKE 1 TABLET BY MOUTH 3 TIMES A DAY NEEDED Refused By: NAVID AGUILERA Reason for Refusal: Refill currently being reviewed in another request documented in this encounter [facility] 06-22-2025 Telephone encounter Note Patient's request for medication is as follows: Requested Prescriptions Pending Prescriptions Disp Refills hydrOXYzine HCl (ATARAX) 25 mg tablet 90 tablet 1 Sig: Take 1 tablet by mouth three times a day as needed. Last seen 04/12 Prescription(s) as above. Please process accordingly. Navid Aguilera [facility] 06-22-2025 Miscellaneous Notes Patient's request for medication is as follows: Requested Prescriptions Pending Prescriptions Disp Refills hydrOXYzine HCl (ATARAX) 25 mg tablet 90 tablet 1 Sig: Take 1 tablet by mouth three times a day as needed. Last seen 04/12 Prescription(s) as above. Please process accordingly. Navid Aguilera documented in this encounter [facility] 06-17-2025 History of Present illness Narrative Radiology Service Progress Note DATE OF SERVICE: June 17, 2025 TIME: 10:14 AM PATIENT IDENTITY VERIFICATION COMPLETED USING TWO [...] Increased Observations by Caregivers PATIENT GENDER DATA: Assigned female at . status: : No status: NO. PATIENT RELEVANT IMPLANT DATA REVIEWED: Yes PATIENT PRESENTS WITH AN IMPLANTABLE OR ATTACHED CLEANING SUPERVISOR: No ALLERGIES: Reviewed and unchanged CONTRAST ALLERGY: NO. EXAM: MRI - CONTRAST TYPE: GROUP II PERIPHERAL IV DATA: Ambulatory: A peripheral IV was started in the Right antecubital site with a Angio cath: 22 gauge. RADIOLOGY DEPARTMENT: MR; Exam(s) Completed: Head: Routine Brain. Anesthesia: No. Aromatherapy Administered: No SIGNATURE: RT Kal(R) PATIENT NAME: Lou Oliver DATE: June 17, 2025 TIME: 10:14 AM documented in this encounter [facility] 06-17-2025 Note HNO ID: [id number] Author: KEERTHI CHACON RT(R) Service: ? Author Type: Technologist Type: Progress Notes Filed: 06/17/2025 10:15 Note Text: Radiology Service Progress Note DATE OF SERVICE: June 17, 2025 TIME: 10:14 AM PATIENT IDENTITY VERIFICATION COMPLETED USING TWO [...] Increased Observations by Caregivers PATIENT GENDER DATA: Assigned female at . status: : No status: NO. PATIENT RELEVANT IMPLANT DATA REVIEWED: Yes PATIENT PRESENTS WITH AN IMPLANTABLE OR ATTACHED CLEANING SUPERVISOR: No ALLERGIES: Reviewed and unchanged CONTRAST ALLERGY: NO. EXAM: MRI - CONTRAST TYPE: GROUP II PERIPHERAL IV DATA: Ambulatory: A peripheral IV was started in the Right antecubital site with a Angio cath: 22 gauge. RADIOLOGY DEPARTMENT: MR; Exam(s) Completed: Head: Routine Brain. Anesthesia: No. Aromatherapy Administered: No SIGNATURE: Keerthi Tong RT Jovana(R) PATIENT NAME: Lou Oliver DATE: June 17, 2025 TIME: 10:14 AM [facility] 06-04-2025 Note HNO ID: [id number] Author: ISI HARDIN APRN.ADRIANNA Service: ? Author Type: Nurse Practitioner Type: Progress Notes Filed: 06/04/2025 12:09 Note Text: Subjective Lou Oliver is a 80 year old female. HPI Patient presents today for evaluation of burn to the fingers of the right hand which happened about an hour ago. She states that she picked up the wrong end of her curling iron. She presents with superficial blisters to the distal aspect of the 2nd and 3rd finger and base of fifth finger with some small blistering beginning to show. Short are not circumferential. No other erythema or streaking noted. Patient's tetanus shot is within the last 5 years she Review of Systems As above Objective BP 101/62 Pulse 79 Temp 37.2 ?C (99 ?F) Resp 20 Wt 57.5 kg (126 lb 12.2 oz) SpO2 95% BMI 22.46 kg/m? Physical Exam Vitals and nursing note reviewed. Constitutional: General: She is not in acute distress. Appearance: Normal appearance. She is not ill-appearing. HENT: Head: Normocephalic. Pulmonary: Effort: Pulmonary effort is normal. Musculoskeletal: General: Normal range of motion. Skin: General: Skin is warm. Comments: Approximately 1.5 cm diameter superficial short with blisters over the palmar aspect, distal phalanx of the 2nd and 3rd digit and over the proximal phalanx of the fifth digit. Neurological: General: No focal deficit present. Mental Status: She is alert and oriented to person, place, and time. Psychiatric: Mood and Affect: Mood normal. Behavior: Behavior normal. ASSESSMENT/PLAN: 1. Superficial burn of right hand, unspecified site of hand, initial encounter - ICD9: 944.10, ICD10: T23.101A - Patient had noncircumferential short over very limited parts of the right fingers. Patient's tetanus shot was within the last 5 years per patient. Discussed with her the importance of monitoring for any increased redness or swelling along with applying topical antibiotic ointment if it anytime blisters were to open. She is to keep the wound clean and dry until the wound has healed. She will otherwise use Motrin or Tylenol as needed for pain. Isi Hardin APRN.[facility] 06-04-2025 History of Present illness Narrative Subjective Lou Oliver is a 80 year old female. HPI Patient presents today for evaluation of burn to the fingers of the right hand which happened about an hour ago. She states that she picked up the wrong end of her curling iron. She presents with superficial blisters to the distal aspect of the 2nd and 3rd finger and base of fifth finger with some small blistering beginning to show. Short are not circumferential. No other erythema or streaking noted. Patient's tetanus shot is within the last 5 years she Review of Systems As above Objective BP 101/62 Pulse 79 Temp 37.2 C (99 F) Resp 20 Wt 57.5 kg (126 lb 12.2 oz) SpO2 95% BMI 22.46 kg/m Physical Exam Vitals and nursing note reviewed. Constitutional: General: She is not in acute distress. Appearance: Normal appearance. She is not ill-appearing. HENT: Head: Normocephalic. Pulmonary: Effort: Pulmonary effort is normal. Musculoskeletal: General: Normal range of motion. Skin: General: Skin is warm. Comments: Approximately 1.5 cm diameter superficial short with blisters over the palmar aspect, distal phalanx of the 2nd and 3rd digit and over the proximal phalanx of the fifth digit. Neurological: General: No focal deficit present. Mental Status: She is alert and oriented to person, place, and time. Psychiatric: Mood and Affect: Mood normal. Behavior: Behavior normal. ASSESSMENT/PLAN: 1. Superficial burn of right hand, unspecified site of hand, initial encounter - ICD9: 944.10, ICD10: T23.101A - Patient had noncircumferential short over very limited parts of the right fingers. Patient's tetanus shot was within the last 5 years per patient. Discussed with her the importance of monitoring for any increased redness or swelling along with applying topical antibiotic ointment if it anytime blisters were to open. She is to keep the wound clean and dry until the wound has healed. She will otherwise use Motrin or Tylenol as needed for pain. Isi Hardin APRN.CNP documented in this encounter [facility] 05-31-2025 Telephone encounter Note Patient has been identified by name and date of : Yes Daughter phones for refill(s): Requested Prescriptions Pending Prescriptions Disp Refills levothyroxine (SYNTHROID) 75 mcg tablet 90 tablet 3 Sig: Take 1 tablet by mouth once daily. Take on empty stomach. For Thyroid Date of last office visit in primary care: 04/06/2025 Date of next office visit in primary care: 08/09/2025 Please advise. Thank you. Janet Wu. [facility] 05-31-2025 Miscellaneous Notes Patient has been identified by name and date of : Yes Daughter phones for refill(s): Requested Prescriptions Pending Prescriptions Disp Refills levothyroxine (SYNTHROID) 75 mcg tablet 90 tablet 3 Sig: Take 1 tablet by mouth once daily. Take on empty stomach. For Thyroid Date of last office visit in primary care: 04/06/2025 Date of next office visit in primary care: 08/09/2025 Please advise. Thank you. Janet Wu. documented in this encounter [facility] 05-11-2025 Telephone encounter Note Message from provider given [facility] 05-11-2025 Miscellaneous Notes Message from provider given Sudden change argues for acute medical problem exacerbating neuro symptoms or low BP. Continue copious fluids, midodrine as prescribed Changes to Sinemet made at last OV have been beneficial until last week. Wear off symptoms are muscle tension, feeling foggy, slower walking and talking. These symptoms improve after taking Sinemet. Has noticed she is less tolerant of heat and humidity. Has central air cooling and limits time spent outdoors. Did spend more time outdoors this past week. Gardening, pulling weeds, and planting. Did not eat as much, and fluid intake was not as good. Noticed an increase in wear off, and constipation on days with less fluid intake Fluid intake today around 24 ounces so far Yesterday about 72 ounces total Has been monitoring BP at least once a day 05/03/25 morning 130/70 This morning 115/55 Initially she reported taking midodrine more regularly over the past 2 weeks, but later stated for at least 6 months. Does not always check BP prior to taking. Yesterday took 5mg midodrine at: 0700 - BP was not checked 1100 - BP was not checked 1315 88/47, at this time she had generalized not feeling well Sinemet IR 0400 1 tablet if she is awake, does not set an alarm 0700 1 tablet 1100 2 tablets 1500 2 tablets 1900 2 tablets Sinemet CR 0700 1 tablet 2300 1 tablet No recent changes to medications Increased urgency Increased stress incontinence Does not always feel bladder empties. At least once daily passes urine twice when urinating. Urine is more concentrated when fluid intake is reduced Skipped exercise class today due to having company. Feeling pretty good off time was about 30 minutes before getting out of bed for the day. She did take her 0400 dose closer to 0300. Had a good visit with friends, felt well through visit. Feeling good during triage this is a good time. Yesterday did paperwork and worked outside. She reports stayed out too long doing yard work/gardening for about an hour. Came in around 1500. [place] better 45 minutes after taking Sinemet. Recommended checking BP prior to taking Midodrine. Reviewed indications for taking. Discussed taking breaks while working outdoors especially when temperatures and humidity are high and avoiding peak sun hours. Encouraged good fluid intake. Patient was forgetful during triage, accidentally terminated call twice, misplaced medication bottle a few times, scattered thoughts and unable to recall recent events. I did reach out to both daughters to see if either had noticed any recent changes. I was not able to reach either. I recommended she reach out to PCP to have urine checked to rule out infection Pt phoned to discuss recent changes in medication. She reports that she continues to have 2 times during the day with off-times and feels that this is increasing. [phone] documented in this encounter [facility] 05-10-2025 Telephone encounter Note Sudden change argues for acute medical problem exacerbating neuro symptoms or low BP. Continue copious fluids, midodrine as prescribed [facility] 05-10-2025 Telephone encounter Note Changes to Sinemet made at last OV have been beneficial until last week. Wear off symptoms are muscle tension, feeling foggy, slower walking and talking. These symptoms improve after taking Sinemet. Has noticed she is less tolerant of heat and humidity. Has central air cooling and limits time spent outdoors. Did spend more time outdoors this past week. Gardening, pulling weeds, and planting. Did not eat as much, and fluid intake was not as good. Noticed an increase in wear off, and constipation on days with less fluid intake Fluid intake today around 24 ounces so far Yesterday about 72 ounces total Has been monitoring BP at least once a day 05/03/25 morning 130/70 This morning 115/55 Initially she reported taking midodrine more regularly over the past 2 weeks, but later stated for at least 6 months. Does not always check BP prior to taking. Yesterday took 5mg midodrine at: 0700 - BP was not checked 1100 - BP was not checked 1315 88/47, at this time she had generalized not feeling well Sinemet IR 0400 1 tablet if she is awake, does not set an alarm 0700 1 tablet 1100 2 tablets 1500 2 tablets 1900 2 tablets Sinemet CR 0700 1 tablet 2300 1 tablet No recent changes to medications Increased urgency Increased stress incontinence Does not always feel bladder empties. At least once daily passes urine twice when urinating. Urine is more concentrated when fluid intake is reduced Skipped exercise class today due to having company. Feeling pretty good off time was about 30 minutes before getting out of bed for the day. She did take her 0400 dose closer to 0300. Had a good visit with friends, felt well through visit. Feeling good during triage this is a good time. Yesterday did paperwork and worked outside. She reports stayed out too long doing yard work/gardening for about an hour. Came in around 1500. [place] better 45 minutes after taking Sinemet. Recommended checking BP prior to taking Midodrine. Reviewed indications for taking. Discussed taking breaks while working outdoors especially when temperatures and humidity are high and avoiding peak sun hours. Encouraged good fluid intake. Patient was forgetful during triage, accidentally terminated call twice, misplaced medication bottle a few times, scattered thoughts and unable to recall recent events. I did reach out to both daughters to see if either had noticed any recent changes. I was not able to reach either. I recommended she reach out to PCP to have urine checked to rule out infection [facility] 05-05-2025 Telephone encounter Note Pt phoned to discuss recent changes in medication. She reports that she continues to have 2 times during the day with off-times and feels that this is increasing. [phone] [facility] 04-16-2025 Telephone encounter Note Prescription Refill Information The patient has been identified by name and date of : Yes Caregiver verified no other encounters exist for this prescription request: Yes Caregiver confirmed with patient/requestor that no other refills are due, in the near future, with this provider at this time: Yes The last office visit in the department: 04/06/25 Does the patient have a future office visit with this provider/department: Yes Requested Prescriptions Pending Prescriptions Disp Refills hydrOXYzine HCl (ATARAX) 25 mg tablet 90 tablet 1 Sig: Take 1 tablet by mouth three times a day as needed. Negar Rowley April 16, 2025 3:49 PM [facility] 04-16-2025 Miscellaneous Notes Prescription Refill Information The patient has been identified by name and date of : Yes Caregiver verified no other encounters exist for this prescription request: Yes Caregiver confirmed with patient/requestor that no other refills are due, in the near future, with this provider at this time: Yes The last office visit in the department: 04/06/25 Does the patient have a future office visit with this provider/department: Yes Requested Prescriptions Pending Prescriptions Disp Refills hydrOXYzine HCl (ATARAX) 25 mg tablet 90 tablet 1 Sig: Take 1 tablet by mouth three times a day as needed. Negar Rowley April 16, 2025 3:49 PM documented in this encounter [facility] 04-12-2025 Note HNO ID: [id number] Author: JUAN CARLOS ORDOÑEZ MD Service: ? Author Type: Physician Type: Progress Notes Filed: 04/12/2025 14:16 Note Text: [facility] FOLLOW UP SERVICE DATE: April 12, 2025 Visit Type: Virtual Visit utilizing two-way audio and video for at least a portion of the visit. Consent for virtual visit obtained verbally. Confidentiality limitations with virtual visits reviewed with the patient and guardian, if present, who have accepted the risk verbally prior to proceeding with encounter. I have communicated my name and active licensure. The patient's identity and physical location were verified at the time of this visit. Either the patient or their legal auto service representative has been informed of the risks and benefits of -- and alternatives to -- treatment through a remote evaluation and consents to proceed with the evaluation remotely. Subjective PRESENT HISTORY: Patient last seen 12/28 at which time she was continued on the same medication regimen. Seen virtually today she reports feeling really well. Sleeping well, largely uninterrupted. Nausea has not returned, appetite remains improved- eating small meals throughout the day. Better daytime energy. Anxiety mostly controlled, able to reason through worries as they come up. Working with neurology to optimize Sinemet timing, feels she has noticed an improvement in Off periods. Enjoying time outside gardening. No acute complaints. Does Patient Have Any Suicidal Ideations: No MEDICATIONS: Current Outpatient Medications Medication Sig Dispense Refill carbidopa-levodopa (SINEMET 25-100) 25-100 mg per tablet Take 1 tab at 4AM, 1 tab at 7AM, 2 tabs at 11AM, 1/2 tab at 230pm on exercise days, 2 tabs at 3PM and 2 tabs at 7PM. 765 tablet 3 sertraline (ZOLOFT) 100 mg tablet Take 1 tablet by mouth once daily. 90 tablet 3 sertraline (ZOLOFT) 50 mg tablet Take 1 tablet by mouth once daily. Take a total of 150 mgs daily. 90 tablet 3 hydrOXYzine HCl (ATARAX) 25 mg tablet Take 1 tablet by mouth three times a day as needed. 90 tablet 1 mirtazapine (REMERON) 7.5 mg tablet Take 1 tablet by mouth daily at bedtime. 30 tablet 11 pravastatin (PRAVACHOL) 20 mg tablet Take 1 tablet by mouth daily at bedtime. 90 tablet 3 carbidopa-levodopa CR (SINEMET CR) 50-200 mg per tablet TAKE 1 TABLET BY MOUTH in Morning and before bedtime as instructed. 180 tablet 3 midodrine (PROAMATINE) 10 mg tablet Take 1 tablet by mouth every 8 hours. (Patient taking differently: Take 10 mg by mouth every 8 hours. Takes only if systolic is below 110) 90 tablet 1 ondansetron orally disintegrating (ZOFRAN ODT) 4 mg disintegrating tablet Take 1 tablet by mouth every 8 hours as needed for nausea/vomiting. [address] (PROTONIX) 40 mg tablet Take 1 tablet by mouth once daily. On empty stomach at least 30 minutes before eating. 90 tablet 3 fludrocortisone (FLORINEF) 0.1 mg tablet Take 1 tablet by mouth once daily. 90 tablet 3 levothyroxine (SYNTHROID) 75 mcg tablet Take 1 tablet by mouth once daily. Take on empty stomach. For Thyroid 90 tablet 3 LORazepam (ATIVAN) 0.5 mg Take 0.5 mg by mouth as needed. Cholecalciferol, Vitamin D3, 50 mcg (2,000 unit) cap Take 2,000 Units by mouth once daily. No current facility-administered medications for this visit. Objective LABS : Lab Results Component Value Date/Time WBC 4.07 04/06/2025 08:06 AM WBC 4.94 05/26/2019 01:02 PM RBC 3.86 (L) 04/06/2025 08:06 AM RBC 3.70 (L) 05/26/2019 01:02 PM HCT 34.9 (L) 04/06/2025 08:06 AM HCT 34.3 (L) 05/26/2019 01:02 PM MCV 90.4 04/06/2025 08:06 AM MCV 92.7 05/26/2019 01:02 PM MCH 29.5 04/06/2025 08:06 AM MCH 31.4 05/26/2019 01:02 PM MCHC 32.7 04/06/2025 08:06 AM MCHC 33.8 05/26/2019 01:02 PM RDWCV 12.8 04/06/2025 08:06 AM RDWCV 12.5 05/26/2019 01:02 PM PLT 206 04/06/2025 08:06 AM PLT 246 05/26/2019 01:02 PM NEUTP 63.6 12/24/2024 08:27 AM NEUTP 32.4 (L) 10/09/2013 09:20 AM LYMPHP 26.3 12/24/2024 08:27 AM LYMPHP 54.2 (H) 10/09/2013 09:20 AM MONOP 6.0 12/24/2024 08:27 AM MONOP 8.6 10/09/2013 09:20 AM EODINP 3.3 12/24/2024 08:27 AM EODINP 4.3 10/09/2013 09:20 AM BASOP 0.4 12/24/2024 08:27 AM BASOP 0.5 10/09/2013 09:20 AM ABSNEUT 3.31 12/24/2024 08:27 AM ABSNEUT 1.20 (L) 10/09/2013 09:20 AM ABSMONO 0.31 12/24/2024 08:27 AM ABSMONO 0.32 10/09/2013 09:20 AM ABSEOSIN 0.17 12/24/2024 08:27 AM ABSEOSIN 0.16 10/09/2013 09:20 AM ABSBASO <0.03 12/24/2024 08:27 AM ABSBASO 0.02 10/09/2013 09:20 AM GLUC 101 (H) 12/24/2024 08:27 AM GLUC 86 12/15/2020 10:57 AM NA 140 12/24/2024 08:27 AM NA 139 12/15/2020 10:57 AM K 3.8 12/24/2024 08:27 AM K 4.7 12/15/2020 10:57 AM CHLOR 104 12/24/2024 08:27 AM CHLOR 103 12/15/2020 10:57 AM BUN 24 (H) 12/24/2024 08:27 AM BUN 27 (H) 12/15/2020 10:57 AM CREAT 0.62 12/24/2024 08:27 AM CREAT 0.69 12/15/2020 10:57 AM MG 2.1 07/14/2024 02:32 PM TSH 3 (more content not included)... [facility] 04-12-2025 History of Present illness Narrative [facility] FOLLOW UP SERVICE DATE: April 12, 2025 Visit Type: Virtual Visit utilizing two-way audio and video for at least a portion of the visit. Consent for virtual visit obtained verbally. Confidentiality limitations with virtual visits reviewed with the patient and guardian, if present, who have accepted the risk verbally prior to proceeding with encounter. I have communicated my name and active licensure. The patient's identity and physical location were verified at the time of this visit. Either the patient or their legal auto service representative has been informed of the risks and benefits of -- and alternatives to -- treatment through a remote evaluation and consents to proceed with the evaluation remotely. Subjective PRESENT HISTORY: Patient last seen 12/28 at which time she was continued on the same medication regimen. Seen virtually today she reports feeling really well. Sleeping well, largely uninterrupted. Nausea has not returned, appetite remains improved- eating small meals throughout the day. Better daytime energy. Anxiety mostly controlled, able to reason through worries as they come up. Working with neurology to optimize Sinemet timing, feels she has noticed an improvement in Off periods. Enjoying time outside gardening. No acute complaints. Does Patient Have Any Suicidal Ideations: No MEDICATIONS: Current Outpatient Medications Medication Sig Dispense Refill carbidopa-levodopa (SINEMET 25-100) 25-100 mg per tablet Take 1 tab at 4AM, 1 tab at 7AM, 2 tabs at 11AM, 1/2 tab at 230pm on exercise days, 2 tabs at 3PM and 2 tabs at 7PM. 765 tablet 3 sertraline (ZOLOFT) 100 mg tablet Take 1 tablet by mouth once daily. 90 tablet 3 sertraline (ZOLOFT) 50 mg tablet Take 1 tablet by mouth once daily. Take a total of 150 mgs daily. 90 tablet 3 hydrOXYzine HCl (ATARAX) 25 mg tablet Take 1 tablet by mouth three times a day as needed. 90 tablet 1 mirtazapine (REMERON) 7.5 mg tablet Take 1 tablet by mouth daily at bedtime. 30 tablet 11 pravastatin (PRAVACHOL) 20 mg tablet Take 1 tablet by mouth daily at bedtime. 90 tablet 3 carbidopa-levodopa CR (SINEMET CR) 50-200 mg per tablet TAKE 1 TABLET BY MOUTH in Morning and before bedtime as instructed. 180 tablet 3 midodrine (PROAMATINE) 10 mg tablet Take 1 tablet by mouth every 8 hours. (Patient taking differently: Take 10 mg by mouth every 8 hours. Takes only if systolic is below 110) 90 tablet 1 ondansetron orally disintegrating (ZOFRAN ODT) 4 mg disintegrating tablet Take 1 tablet by mouth every 8 hours as needed for nausea/vomiting. [address] (PROTONIX) 40 mg tablet Take 1 tablet by mouth once daily. On empty stomach at least 30 minutes before eating. 90 tablet 3 fludrocortisone (FLORINEF) 0.1 mg tablet Take 1 tablet by mouth once daily. 90 tablet 3 levothyroxine (SYNTHROID) 75 mcg tablet Take 1 tablet by mouth once daily. Take on empty stomach. For Thyroid 90 tablet 3 LORazepam (ATIVAN) 0.5 mg Take 0.5 mg by mouth as needed. Cholecalciferol, Vitamin D3, 50 mcg (2,000 unit) cap Take 2,000 Units by mouth once daily. No current facility-administered medications for this visit. Objective LABS : Lab Results Component Value Date/Time WBC 4.07 04/06/2025 08:06 AM WBC 4.94 05/26/2019 01:02 PM RBC 3.86 (L) 04/06/2025 08:06 AM RBC 3.70 (L) 05/26/2019 01:02 PM HCT 34.9 (L) 04/06/2025 08:06 AM HCT 34.3 (L) 05/26/2019 01:02 PM MCV 90.4 04/06/2025 08:06 AM MCV 92.7 05/26/2019 01:02 PM MCH 29.5 04/06/2025 08:06 AM MCH 31.4 05/26/2019 01:02 PM MCHC 32.7 04/06/2025 08:06 AM MCHC 33.8 05/26/2019 01:02 PM RDWCV 12.8 04/06/2025 08:06 AM RDWCV 12.5 05/26/2019 01:02 PM PLT 206 04/06/2025 08:06 AM PLT 246 05/26/2019 01:02 PM NEUTP 63.6 12/24/2024 08:27 AM NEUTP 32.4 (L) 10/09/2013 09:20 AM LYMPHP 26.3 12/24/2024 08:27 AM LYMPHP 54.2 (H) 10/09/2013 09:20 AM MONOP 6.0 12/24/2024 08:27 AM MONOP 8.6 10/09/2013 09:20 AM EODINP 3.3 12/24/2024 08:27 AM EODINP 4.3 10/09/2013 09:20 AM BASOP 0.4 12/24/2024 08:27 AM BASOP 0.5 10/09/2013 09:20 AM ABSNEUT 3.31 12/24/2024 08:27 AM ABSNEUT 1.20 (L) 10/09/2013 09:20 AM ABSMONO 0.31 12/24/2024 08:27 AM ABSMONO 0.32 10/09/2013 09:20 AM ABSEOSIN 0.17 12/24/2024 08:27 AM ABSEOSIN 0.16 10/09/2013 09:20 AM ABSBASO <0.03 12/24/2024 08:27 AM ABSBASO 0.02 10/09/2013 09:20 AM GLUC 101 (H) 12/24/2024 08:27 AM GLUC 86 12/15/2020 10:57 AM NA 140 12/24/2024 08:27 AM NA 139 12/15/2020 10:57 AM K 3.8 12/24/2024 08:27 AM K 4.7 12/15/2020 10:57 AM CHLOR 104 12/24/2024 08:27 AM CHLOR 103 12/15/2020 10:57 AM BUN 24 (H) 12/24/2024 08:27 AM BUN 27 (H) 12/15/2020 10:57 AM CREAT 0.62 12/24/2024 08:27 AM CREAT 0.69 12/15/2020 10:57 AM MG 2.1 07/14/2024 02:32 PM TSH 3.060 12/24/2024 08:27 AM TSH 1.000 06/19/2021 09:02 AM CO2 26 12/24/2024 08:27 AM CO2 27 12/15/2020 10:57 AM TPROT 6.8 12/24/2024 08:27 AM TPROT 7.1 03/29/2020 08:55 AM ALB 4.2 12/24/2024 08:27 AM ALB 4.6 03/29/2020 08:55 AM CA 9.1 12/24/2024 08:27 AM CA 9.7 12/15/2020 10:57 AM AST 19 12/24/2024 08:27 AM AST 26 03/29/2020 08:55 AM ALT <5 (L) 12/24/2024 08:27 AM ALT 15 03/29/2020 08:55 AM ALKPHOS 133 (H) 12/24/2024 08:27 AM ALKPHOS 73 03/29/2020 08:55 AM TBILI 0.4 12/24/2024 08:27 AM TBILI 0.7 03/29/2020 08:55 AM Vital Signs: There were no vitals filed for this visit. PHYSICAL EXAMINATION: Mild, persistent truncal movements MENTAL STATUS EXAMINATION: Appearance: Elderly F, appears stated age Behaviour: Easily engaged, pleasant Psychomotor Activity: mild PMA (as above) Speech: Spontaneous, fluent Mood: really well Affect: bright, euthymic Thought Processes: linear Associations: non-loosened Thought Content: no delusions or obsessions elicited Suicidal/Homicidal Ideation: denied PDW/SI/HI Perceptions/Experiences: did not appear internally preoccupied Insight: fair Judgement: fair Cognitive Exam: Focus/concentration conversationally intact Questionnaires: PHQ-9: 8 EVAN-7: 7 ASSESSMENT : This is a 79 y/o F w/ PMH PD, migraines, hypothyroidism, HTN and PPH MDD, EVAN and medication-induced anxiety (Sinemet) who presents for f/u. Patient has maintained improvements in anxiety, sleep, appetite. Agreed to leave medications at current doses, will discuss trialing lowered sertraline dose in future appointments. DIAGNOSIS: 1. MDD, recurrent, moderate 2. EVAN 3. Medication-induced anxiety disorder, onset during withdrawal (Sinemet) PLAN: #Safety no acute safety concerns; patient is appropriate to f/u in outpt setting #Management Continue Hydroxyzine 25mg TID PRN Continue mirtazapine 7.5mg qHS Continue sertraline 150mg daily Follow up: 5-6 months My final impression and recommendations will be communicated back to the requesting physician by way of the shared medical record. SIGNATURE: Juan Carlos Ordoñez MD PATIENT NAME: Lou Oliver DATE: April 12, 2025 TIME: 1:58 PM I spent a total of 35 minutes on the date of the service which included preparing to see the patient, [id number] patient care, completing clinical documentation, obtaining and/or reviewing separately obtained history, performing a medically appropriate examination, and counseling and educating the patient/family/caregiver Juan Carlos Ordoñez MD documented in this encounter [facility] 04-06-2025 Note HNO ID: [id number] Author: LUCÍA RIZZO MD Service: ? Author Type: Physician Type: Progress Notes Filed: 04/06/2025 15:12 Note Text: Reason for Visit Follow up HPI Lou Oliver is a 79-year-old female with a history of Parkinson's disease, hypotension, hypercholesterolemia, and depression, presenting for follow-up. Lou was seen by Dr. Manning approximately one month ago and was advised to add mirtazapine at night, continue Zoloft and Sinemet at the same doses, and increase fluid intake to 40-60 ounces of water and Gatorade daily to manage hypotension. She was also prescribed midodrine to be taken if her blood pressure falls below 110 mmHg. She reports that her blood pressure was stable for a few weeks but has recently started to decrease again, with a current reading of 106 mmHg. She is unsure of the cause but notes that she is drinking approximately 40-48 ounces of fluids daily, including water, juice, and occasional milk. She admits to not eating enough but reports improvement in stomach aches and a resolution of daily nausea. She denies feeling excessively tired or weak but notes a decrease in energy levels. She reports significant improvement in sleep quality since starting mirtazapine and denies daytime grogginess. She has limited her driving to short distances within [place]. She also reports a reduction in depressive symptoms. She reports persistent neck pain, which she believes is related to tension and the timing of her medication. She has tried physical therapy in the past but felt it aggravated her neck pain. She is currently taking five exercise classes per week and is participating in a balance class. She has been using a cane more frequently due to balance issues but reports that it helps her mobility. She has a supportive social network, including a friend named Guillermo who assists her with transportation and attends classes with her, as well as a large family and daughters who provide support. She also reports improvement in cholesterol levels since her last visit. Social History Tobacco Use Smoking status: Never Smokeless tobacco: Never Tobacco comments: Father smoked in childhood home. 2 spouses were smokers. Vaping Use Vaping status: Never Used Substance Use Topics Alcohol use: No Drug use: No Past medical history, appointments, medications, allergies reviewed. Pertinent Lab/Diagnostic Studies are reviewed and discussed today Current Outpatient Medications: carbidopa-levodopa (SINEMET 25-100) 25-100 mg per tablet sertraline (ZOLOFT) 100 mg tablet sertraline (ZOLOFT) 50 mg tablet hydrOXYzine HCl (ATARAX) 25 mg tablet mirtazapine (REMERON) 7.5 mg tablet pravastatin (PRAVACHOL) 20 mg tablet carbidopa-levodopa CR (SINEMET CR) 50-200 mg per tablet midodrine (PROAMATINE) 10 mg tablet ondansetron orally disintegrating (ZOFRAN ODT) 4 [address]integrating tablet pantoprazole DR (PROTONIX) 40 mg tablet fludrocortisone (FLORINEF) 0.1 mg tablet levothyroxine (SYNTHROID) 75 mcg tablet LORazepam (ATIVAN) 0.5 mg Cholecalciferol, Vitamin D3, 50 mcg (2,000 unit) cap Health Maintenance Medicare Annual Wellness Visit Shingrix Vaccine(2 of 3) RSV Vaccine(1 - 1-dose 75+ series) Covid-19 Vaccine( season) Advance Directive Discussion@ Review Of Systems Constitutional: (-) daytime grogginess, (-) insomnia Neck: (+) neck pain Gastrointestinal: (-) nausea Physical Exam BP 106/66 Pulse 71 Resp 16 Wt 57.9 kg (127 lb 9.6 oz) SpO2 98% BMI 22.60 kg/m? GENERAL: NAD, alert and oriented. SKIN: Unremarkable, no rash or skin lesions. HEAD: Normocephalic. EYES: PERRLA, EOMI, conjunctiva clear NECK: Supple, no lymphadenopathy, normal thyroid, no carotid bruits. LUNGS: Clear to auscultation bilaterally, no wheezes/rhonchi/rales. HEART: Regular rate and rhythm, no murmurs. No ectopy. EXTREMITIES: Normal, no deformities, no skin discoloration, no edema. NEURO: Awake, alert and oriented x3, cranial nerves II-XII grossly intact, normal gait, no involuntary motions. Labs: - Cholesterol test: Markedly improved, no caution indicated Assessment and Plan 1. Orthostatic hypotension (I95.1) Blood pressure readings have been low, with a recent measurement of 106 mmHg. Patient is managing with increased fluid intake and Midodrine as needed when BP falls below 110 mmHg. - Continue monitoring blood pressure daily, particularly in the morning. - Continue Midodrine as needed when BP is below 110 mmHg. - Maintain hydration with 40-60 ounces of water and Gatorade daily. 2. Acute pain of left knee (M25.562) 3. Essential hypertension, benign (I10) Blood pressure is generally well-controlled with current management strategies. 4. Parkinson's disease with dyskinesia and fluctuating manifestations (HCC) (G20.B2) Patient is on Zoloft, Sinemet, and Mirtazapine. Experiencing improved sleep and reduced depression. (more content not included)... [facility] 04-06-2025 History of Present illness Narrative Reason for Visit Follow up HPI Lou Oliver is a 79-year-old female with a history of Parkinson's disease, hypotension, hypercholesterolemia, and depression, presenting for follow-up. Lou was seen by Dr. Manning approximately one month ago and was advised to add mirtazapine at night, continue Zoloft and Sinemet at the same doses, and increase fluid intake to 40-60 ounces of water and Gatorade daily to manage hypotension. She was also prescribed midodrine to be taken if her blood pressure falls below 110 mmHg. She reports that her blood pressure was stable for a few weeks but has recently started to decrease again, with a current reading of 106 mmHg. She is unsure of the cause but notes that she is drinking approximately 40-48 ounces of fluids daily, including water, juice, and occasional milk. She admits to not eating enough but reports improvement in stomach aches and a resolution of daily nausea. She denies feeling excessively tired or weak but notes a decrease in energy levels. She reports significant improvement in sleep quality since starting mirtazapine and denies daytime grogginess. She has limited her driving to short distances within [place]. She also reports a reduction in depressive symptoms. She reports persistent neck pain, which she believes is related to tension and the timing of her medication. She has tried physical therapy in the past but felt it aggravated her neck pain. She is currently taking five exercise classes per week and is participating in a balance class. She has been using a cane more frequently due to balance issues but reports that it helps her mobility. She has a supportive social network, including a friend named Guillermo who assists her with transportation and attends classes with her, as well as a large family and daughters who provide support. She also reports improvement in cholesterol levels since her last visit. Social History Tobacco Use Smoking status: Never Smokeless tobacco: Never Tobacco comments: Father smoked in childhood home. 2 spouses were smokers. Vaping Use Vaping status: Never Used Substance Use Topics Alcohol use: No Drug use: No Past medical history, appointments, medications, allergies reviewed. Pertinent Lab/Diagnostic Studies are reviewed and discussed today Current Outpatient Medications: carbidopa-levodopa (SINEMET 25-100) 25-100 mg per tablet sertraline (ZOLOFT) 100 mg tablet sertraline (ZOLOFT) 50 mg tablet hydrOXYzine HCl (ATARAX) 25 mg tablet mirtazapine (REMERON) 7.5 mg tablet pravastatin (PRAVACHOL) 20 mg tablet carbidopa-levodopa CR (SINEMET CR) 50-200 mg per tablet midodrine (PROAMATINE) 10 mg tablet ondansetron orally disintegrating (ZOFRAN ODT) 4 mg disintegrating tablet pantoprazole DR (PROTONIX) 40 mg tablet fludrocortisone (FLORINEF) 0.1 mg tablet levothyroxine (SYNTHROID) 75 mcg tablet LORazepam (ATIVAN) 0.5 mg Cholecalciferol, Vitamin D3, 50 mcg (2,000 unit) cap Health Maintenance Medicare Annual Wellness Visit Shingrix Vaccine(2 of 3) RSV Vaccine(1 - 1-dose 75+ series) Covid-19 Vaccine(2023- season) Advance Directive Discussion@ Review Of Systems Constitutional: (-) daytime grogginess, (-) insomnia Neck: (+) neck pain Gastrointestinal: (-) nausea Physical Exam BP 106/66 Pulse 71 Resp 16 Wt 57.9 kg (127 lb 9.6 oz) SpO2 98% BMI 22.60 kg/m GENERAL: NAD, alert and oriented. SKIN: Unremarkable, no rash or skin lesions. HEAD: Normocephalic. EYES: PERRLA, EOMI, conjunctiva clear NECK: Supple, no lymphadenopathy, normal thyroid, no carotid bruits. LUNGS: Clear to auscultation bilaterally, no wheezes/rhonchi/rales. HEART: Regular rate and rhythm, no murmurs. No ectopy. EXTREMITIES: Normal, no deformities, no skin discoloration, no edema. NEURO: Awake, alert and oriented x3, cranial nerves II-XII grossly intact, normal gait, no involuntary motions. Labs: - Cholesterol test: Markedly improved, no caution indicated Assessment and Plan 1. Orthostatic hypotension (I95.1) Blood pressure readings have been low, with a recent measurement of 106 mmHg. Patient is managing with increased fluid intake and Midodrine as needed when BP falls below 110 mmHg. - Continue monitoring blood pressure daily, particularly in the morning. - Continue Midodrine as needed when BP is below 110 mmHg. - Maintain hydration with 40-60 ounces of water and Gatorade daily. 2. Acute pain of left knee (M25.562) 3. Essential hypertension, benign (I10) Blood pressure is generally well-controlled with current management strategies. 4. Parkinson's disease with dyskinesia and fluctuating manifestations (HCC) (G20.B2) Patient is on Zoloft, Sinemet, and Mirtazapine. Experiencing improved sleep and reduced depression. Neck pain noted, possibly related to cervical issues. Balance issues present, using a cane more frequently. - Continue current medication regimen. - Follow-up in 4 months to reassess symptoms and management. Voice recognition software was used to compose this office note. Please excuse any unintended typographical errors. Recording using ambient [email or web address] software for draft documentation of the visit was discussed with the patient/authorized auto service representative; all questions welcomed and answered. Patient/authorized auto service representative agreed to proceed Lucía Rizzo MD documented in this encounter [facility] 03-11-2025 Note HNO ID: [id number] Author: SAYRA MABRY MD Service: ? Author Type: Physician Type: Progress Notes Filed: 03/12/2025 16:30 Note Text: [facility] - FOLLOW UP EVALUATION Recording using ambient [email or web address] software for draft documentation of the visit was discussed with the patient/authorized auto service representative; all questions welcomed and answered. Patient/authorized auto service representative agreed to proceed Lucía Rizzo MD [address] [facility] [id number] Dear Lucía Rizzo MD: I had the pleasure of seeing Ms. Oliver for follow-up today. As you know she is a 79 year old left-handed female with a history of PD since 2019. Subjective Previous Plan- 11/05/2024 Visit: No change to Sinemet (carbidopa-levodopa) For the blood pressure, strive for 40-60 ounces of water per day. Gatorade is helpful too. No change to midodrine or fludrocortisone Continue with Zoloft, no change to it Add mirtazapine at bedtime for anxiety, sleep, and appetite Consults to psychiatry and psychology Appointment scheduling: Psychology: [phone], choose option 2: Psychiatry: General scheduling (operates 24 hrs) [phone] option 3 Interval History: Lou is a 79-year-old female with a history of Parkinson's disease presenting for follow-up. She is accompanied by her daughter, who provides additional history. Lou reports improvement in nausea, which was previously constant. She attributes this improvement to better management of anxiety and notes a weight gain of 15 pounds. Her appetite has also improved. She is currently taking mirtazapine, which she believes has contributed to better sleep and reduced anxiety. She reports that her off periods are becoming longer. During off periods, she experiences significant slowing of movement, sometimes to the point where she feels she almost can't walk. These episodes have been witnessed by her daughters and are described as freezing episodes. She believes these periods correlate with her medication dosing, with doses lasting approximately 2.5 to 3 hours. The 4:00 PM and 7:00 PM doses are particularly challenging, with medication effects wearing off before the next dose is due. She experiences cognitive fog during these times, which clears when the medication takes effect. Her medication seems most likely to wear off right after her Parkinson's exercise classes. Getting home from them can be very challenging. She reports dyskinetic movements, which are more pronounced when she is anxious or not engaged in an activity. These movements are sometimes bothersome, depending on the situation. Her blood pressure has been stable, with readings around 110 mmHg systolic. She is taking fludrocortisone daily but has not been using midodrine. She monitors her blood pressure regularly and has not experienced significant lightheadedness. She practices [id number] exercises without dizziness. She has been advised to only take it if ABP<110. Her current medication schedule includes Sinemet at 4:00 AM, 7:30 AM, 11:30 AM, 3:30 PM, 7:30 PM, and 11:00-11:15 PM. She takes her doses with a small amount of food and has been using applesauce to help swallow her pills. This seems to work better than pudding. She reports better luck drinking liquids with a straw. She participates in exercise classes, which she enjoys but notes that the classes can be intense and sometimes exacerbate her symptoms. She has been working outside more, increasing her physical activity. She is driving less due to tremors and concerns about safety during off periods. Her daughter notes that Lou is very schedule-oriented and manages her symptoms better when she maintains her routine. She also mentions that Lou has been more conscientious about drinking and eating regularly. Movement Disorders Medications Schedule - as of the start of the visit: Medications 7 11 3 7 11 4A Sinemet IR 25/100 (yellow) 1 2 2 1.5 1 Sinemet CR 50/200 (blue) 1 1 fludrocortisone midodrine as needed mirtazepine 7.5 mg 1 zoloft Parkinson's Motor Complications Medication duration: 2.8 hours Wearing off: yes Dyskinesia: yes Prior Anti-Parkinson Therapies Carbidopa/Levodopa Carbidopa/Levodopa CR Questionnaires: In addition, the following areas that may be affected by abnormal involuntary movements were evaluated: Daily activities Difficulties with eating: Yes (slight) Difficulties in dressing: Yes (mild) Difficulties with hygiene activities: Yes (mild) Difficulties with handwriting: Yes (mild) Difficulties with doing hobbies and other activities: Yes (mild) Difficulties turning in bed: Yes (slight) Difficulties getting out of bed, car or chair: Yes (mild) Tremors/Gait/Balance Shaking or tremors: Yes (moderate) Walking and balance problems: Yes (moderate) Number of falls in the Last Month: Once Gait freezing: Yes (moderate) Autonomic/Pain Lightheadeness (more content not included)... [facility] 02-15-2025 Telephone encounter Note Patient given results and verbalized understanding of instructions given. Radha Kent MA [facility] 02-15-2025 Miscellaneous Notes Patient given results and verbalized understanding of instructions given. Radha Kent MA Please inform patient that urine culture did not show any growth of bacteria requiring treatment. Advise to follow up with PCP for if continued symptoms. Brissa Young CNP documented in this encounter [facility] 02-15-2025 Telephone encounter Note Please inform patient that urine culture did not show any growth of bacteria requiring treatment. Advise to follow up with PCP for if continued symptoms. Brissa Young CNP [facility] 02-14-2025 Note HNO ID: [id number] Author: OC ROSE APRN.[facility] Service: ? Author Type: Nurse Practitioner Type: Progress Notes Filed: 02/14/2025 14:51 Note Text: [facility] Subjective Lou Oliver is a 79 year old female. Patient presents with: Possible UTI d/t change in neurologial SX. Neurologist dahiana Patient was brought in to check her urine. Patient has been having some urgency incontinence at night. Her urologist and primary care's office was contacted throughout the week they both agreed that the urine sample should be checked before any medication is adjusted. Denies any other symptoms. The history is provided by the patient. No video software engineer was used. Review of Systems Constitutional: Negative. HENT: Negative. Objective BP 90/60 Pulse 72 Temp 36.4 ?C (97.5 ?F) (Left Tympanic) Resp 16 Wt 57.3 kg (126 lb 5.2 oz) SpO2 97% BMI 22.38 kg/m? Physical Exam Constitutional: Appearance: Normal appearance. Cardiovascular: Rate and Rhythm: Normal rate and regular rhythm. Heart sounds: Normal heart sounds. Pulmonary: Effort: Pulmonary effort is normal. Breath sounds: Normal breath sounds. Abdominal: Palpations: Abdomen is soft. Tenderness: There is no abdominal tenderness. There is no right CVA tenderness, left CVA tenderness or guarding. Neurological: Mental Status: She is alert. PAST [...] NONOBSTETRIC 09/1982 Dilation AND curettage EGD W/O [facility] SPEC VARICIES INJ 11/29/2023 PAST SURGICAL HISTORY OF 02/1996 EMB TONSILLECTOMY AND ADENOIDECTOMY T/A (under age 12 years) ALLERGIES Sulfa (Sulfonamide Antibiotics) MEDICATIONS sertraline (ZOLOFT) 100 mg tablet Take 1 tablet by mouth once daily. sertraline (ZOLOFT) 50 mg tablet Take 1 tablet by mouth once daily. Take a total of 150 mgs daily. hydrOXYzine HCl (ATARAX) 25 mg tablet Take 1 tablet by mouth three times a day as needed. mirtazapine (REMERON) 7.5 mg tablet Take 1 tablet by mouth daily at bedtime. pravastatin (PRAVACHOL) 20 mg tablet Take 1 tablet by mouth daily at bedtime. carbidopa-levodopa (SINEMET 25-100) 25-100 mg per tablet Take 1 tab at 4AM, 1 tab at 7AM, 2 tabs at 11AM, 2 tabs at 3PM and 1.5 tabs at 7PM. carbidopa-levodopa CR (SINEMET CR) 50-200 mg per tablet TAKE 1 TABLET BY MOUTH in Morning and before bedtime as instructed. midodrine (PROAMATINE) 10 mg tablet Take 1 tablet by mouth every 8 hours. ondansetron orally disintegrating (ZOFRAN ODT) 4 mg disintegrating tablet Take 1 tablet by mouth every 8 hours as needed for nausea/vomiting. pantoprazole DR (PROTONIX) 40 mg tablet Take 1 tablet by mouth once daily. On empty stomach at least 30 minutes before eating. fludrocortisone (FLORINEF) 0.1 mg tablet Take 1 tablet by mouth once daily. levothyroxine (SYNTHROID) 75 mcg tablet Take 1 tablet by mouth once daily. Take on empty stomach. For Thyroid LORazepam (ATIVAN) 0.5 mg Take 0.5 mg by mouth as needed. Cholecalciferol, Vitamin D3, 50 mcg (2,000 unit) cap Take 2,000 Units by mouth once daily. Olopatadine (PATADAY ONCE DAILY RELIEF) 0.2 % drop Use 1 Drop in both eyes once daily. (Patient not taking: Reported on 11/04/2024) FAMILY HISTORY Problem Relation Age of Onset [...] Topics Alcohol use: No Drug use: No {ASSESSMENT/PLAN: 1. Dysuria - ICD9: 788.1, ICD10: R30.0 (primary diagnosis) acute - Send urine for culture - Patient education for prevention given 2. Urgency of urination - ICD9: 788.63, ICD10: R39.15 - UA DIP, URINE (POC) - BACTERIAL CULTURE, URINE At this time no treatment. Will send for the culture just to verify. Daughter agreeable Oc Rose APRN.[employer] MDM Procedures [facility] 02-10-2025 Telephone encounter Note Voicemail received February 09, 2025 1610 Patient returning call Call to patient, no answer. Message left for return call Last read by Lou Oliver at 4:14PM on 02/09/2025. [facility] 02-10-2025 Miscellaneous Notes Voicemail received February 09, 2025 1610 Patient returning call Call to patient, no answer. Message left for return call Last read by Lou Oliver at 4:14PM on 02/09/2025. Call to patient, no answer. Message left for return call. MC also sent documented in this encounter [facility] 02-10-2025 Note HNO ID: [id number] Author: KALLIE GUERRERO LISW Service: ? Author Type: Fisher Crab Type: Progress Notes Filed: 02/10/2025 10:52 Note Text: [facility] [place] Psychology Progress Note PSYCHOLOGY: FOLLOW-UP APPOINTMENT PROGRESS NOTE- Virtual Visit I have communicated my name and active licensure. The patient's identity and physical location were verified at the time of this visit. Either the patient or their legal auto service representative has been informed of the risks and benefits of -- and alternatives to -- treatment through a remote evaluation and consents to proceed with the evaluation remotely. Lou Oliver 02/10/2025 [id number] PROVIDER: LOVE Diaz Service: Psychotherapy, 45 minutes with patient and/or family- Virtual Visit Diagnosis: Generalized anxiety disorder (primary encounter diagnosis) Time spent doing therapy with patient: 247am-5532am Parties Present: Patient Interventions: History taking Cognitive Behavioral MENTAL STATUS: Mood: euthymic Affect: mood-congruent Thoughts/Associations: goal directed Suicidal/Homicidal Ideation: None expressed or evidenced MEDICATIONS: Per medical record: Current Outpatient Medications Medication Sig hydrOXYzine HCl (ATARAX) 25 mg tablet Take 1 tablet by mouth three times a day as needed. mirtazapine (REMERON) 7.5 mg tablet Take 1 tablet by mouth daily at bedtime. pravastatin (PRAVACHOL) 20 mg tablet Take 1 tablet by mouth daily at bedtime. carbidopa-levodopa (SINEMET 25-100) 25-100 mg per tablet Take 1 tab at 4AM, 1 tab at 7AM, 2 tabs at 11AM, 2 tabs at 3PM and 1.5 tabs at 7PM. carbidopa-levodopa CR (SINEMET CR) 50-200 mg per tablet TAKE 1 TABLET BY MOUTH in Morning and before bedtime as instructed. midodrine (PROAMATINE) 10 mg tablet Take 1 tablet by mouth every 8 hours. ondansetron orally disintegrating (ZOFRAN ODT) 4 mg disintegrating tablet Take 1 tablet by mouth every 8 hours as needed for nausea/vomiting. pantoprazole DR (PROTONIX) 40 mg tablet Take [...] daily. Take on empty stomach. For Thyroid Olopatadine (PATADAY ONCE DAILY RELIEF) 0.2 % drop Use 1 Drop in both eyes once daily. (Patient not taking: Reported on 11/04/2024) LORazepam (ATIVAN) 0.5 mg Take 0.5 mg by mouth as needed. Cholecalciferol, Vitamin D3, 50 mcg (2,000 unit) cap Take 2,000 Units by mouth once daily. No current facility-administered medications for this visit. Psychiatric Medication Issues: No change from previous appointment PROGRESS TO DATE/ASSESSMENT: Ms. Oliver presents with established diagnoses of EVAN. Today patient reports stability in symptoms of anxiety over past few weeks. Pt attributes this to improved sleep and attending exercise classes 5 days a week now. Pt states she has used learned skills (deep breathing, 5 senses) to fall back to sleep at night and this has helped. Again discussed pt's ex whom often stops by unannounced and this causes stress. Discussed how to utilize assertive communication using this example. Pt also states she expresses very poor self talk and does not value herself enough to stand up for herself; discussed how to combat this with positive self talk and considering positive qualities she possesses. Pt expressed anxiety related to planning for the future and asking for help when needed. Discussed using assertive communication to voice need for help with her children and friends when needed. Encouraged pt to try asking for help with small tasks first so when the time comes for increased help, she is more comfortable with the idea. Also discussed emphasizing thoughts surrounding what she is still able to do, rather than only considering what she is no longer able to do. TREATMENT PLAN/GOALS/OBJECTIVES: Homework: continue to use learned skills Next: Cognitive Restructuring Follow Up: [facility] 02-10-2025 History of Present illness Narrative [facility] Progress Note PSYCHOLOGY: FOLLOW-UP APPOINTMENT PROGRESS NOTE- Virtual Visit I have communicated my name and active licensure. The patient's identity and physical location were verified at the time of this visit. Either the patient or their legal auto service representative has been informed of the risks and benefits of -- and alternatives to -- treatment through a remote evaluation and consents to proceed with the evaluation remotely. Lou Oliver 02/10/2025 [id number] PROVIDER: LOVE Diaz Service: Psychotherapy, 45 minutes with patient and/or family- Virtual Visit Diagnosis: Generalized anxiety disorder (primary encounter diagnosis) Time spent doing therapy with patient: 957am-1042am Parties Present: Patient Interventions: History taking Cognitive Behavioral MENTAL STATUS: Mood: euthymic Affect: mood-congruent Thoughts/Associations: goal directed Suicidal/Homicidal Ideation: None expressed or evidenced MEDICATIONS: Per medical record: Current Outpatient Medications Medication Sig hydrOXYzine HCl (ATARAX) 25 mg tablet Take 1 tablet by mouth three times a day as needed. mirtazapine (REMERON) 7.5 mg tablet Take 1 tablet by mouth daily at bedtime. pravastatin (PRAVACHOL) 20 mg tablet Take 1 tablet by mouth daily at bedtime. carbidopa-levodopa (SINEMET 25-100) 25-100 mg per tablet Take 1 tab at 4AM, 1 tab at 7AM, 2 tabs at 11AM, 2 tabs at 3PM and 1.5 tabs at 7PM. carbidopa-levodopa CR (SINEMET CR) 50-200 mg per tablet TAKE 1 TABLET BY MOUTH in Morning and before bedtime as instructed. midodrine (PROAMATINE) 10 mg tablet Take 1 tablet by mouth every 8 hours. ondansetron orally disintegrating (ZOFRAN ODT) 4 mg disintegrating tablet Take 1 tablet by mouth every 8 hours as needed for nausea/vomiting. pantoprazole DR (PROTONIX) 40 mg tablet Take [...] daily. Take on empty stomach. For Thyroid Olopatadine (PATADAY ONCE DAILY RELIEF) 0.2 % drop Use 1 Drop in both eyes once daily. (Patient not taking: Reported on 11/04/2024) LORazepam (ATIVAN) 0.5 mg Take 0.5 mg by mouth as needed. Cholecalciferol, Vitamin D3, 50 mcg (2,000 unit) cap Take 2,000 Units by mouth once daily. No current facility-administered medications for this visit. Psychiatric Medication Issues: No change from previous appointment PROGRESS TO DATE/ASSESSMENT: Ms. Melody presents with established diagnoses of EVAN. Today patient reports stability in symptoms of anxiety over past few weeks. Pt attributes this to improved sleep and attending exercise classes 5 days a week now. Pt states she has used learned skills (deep breathing, 5 senses) to fall back to sleep at night and this has helped. Again discussed pt's ex whom often stops by unannounced and this causes stress. Discussed how to utilize assertive communication using this example. Pt also states she expresses very poor self talk and does not value herself enough to stand up for herself; discussed how to combat this with positive self talk and considering positive qualities she possesses. Pt expressed anxiety related to planning for the future and asking for help when needed. Discussed using assertive communication to voice need for help with her children and friends when needed. Encouraged pt to try asking for help with small tasks first so when the time comes for increased help, she is more comfortable with the idea. Also discussed emphasizing thoughts surrounding what she is still able to do, rather than only considering what she is no longer able to do. TREATMENT PLAN/GOALS/OBJECTIVES: Homework: continue to use learned skills Next: Cognitive Restructuring Follow Up: [facility] documented in this encounter [facility] 02-09-2025 Telephone encounter Note Call to patient, no answer. Message left for return call. MC also sent [facility] 02-08-2025 Telephone encounter Note Called and verified that Pt filled last refill on the 100 mg dose and [facility] [place] reports that it is waiting to be picked up now. Pts next OV: 04/06/25 [facility] 02-08-2025 Miscellaneous Notes Called and verified that Pt filled last refill on the 100 mg dose and [facility] [place] reports that it is waiting to be picked up now. Pts next OV: 04/06/25 Prescription Refill Information The patient has been identified by name and date of : Yes Caregiver verified no other encounters exist for this prescription request: Yes Caregiver confirmed with patient/requestor that no other refills are due, in the near future, with this provider at this time: Yes The last office visit in the department: 01-04-25 Does the patient have a future office visit with this provider/department: Yes Requested Prescriptions Pending Prescriptions Disp Refills sertraline (ZOLOFT) 100 mg tablet 90 tablet 3 Sig: Take 1 tablet by mouth once daily. sertraline (ZOLOFT) 50 mg tablet 30 tablet 5 Sig: Take 1 tablet by mouth once daily. Take a total of 150 mgs daily. Dennise Ochoa February 08, 2025 11:26 AM documented in this encounter [facility] 02-08-2025 Telephone encounter Note Prescription Refill Information The patient has been identified by name and date of : Yes Caregiver verified no other encounters exist for this prescription request: Yes Caregiver confirmed with patient/requestor that no other refills are due, in the near future, with this provider at this time: Yes The last office visit in the department: 01-04-25 Does the patient have a future office visit with this provider/department: Yes Requested Prescriptions Pending Prescriptions Disp Refills sertraline (ZOLOFT) 100 mg tablet 90 tablet 3 Sig: Take 1 tablet by mouth once daily. sertraline (ZOLOFT) 50 mg tablet 30 tablet 5 Sig: Take 1 tablet by mouth once daily. Take a total of 150 mgs daily. Dennise Ochoa February 08, 2025 11:26 AM [facility] 01-13-2025 History of Present illness Narrative [facility] Progress Note PSYCHOLOGY: FOLLOW-UP APPOINTMENT PROGRESS NOTE- Virtual Visit I have communicated my name and active licensure. The patient's identity and physical location were verified at the time of this visit. Either the patient or their legal auto service representative has been informed of the risks and benefits of -- and alternatives to -- treatment through a remote evaluation and consents to proceed with the evaluation remotely. Lou Oliver 01/13/2025 [id number] PROVIDER: LOVE Diaz Service: Psychotherapy, 45 minutes with patient and/or family- Virtual Visit Diagnosis: Generalized anxiety disorder (primary encounter diagnosis) Time spent doing therapy with patient: 1010-1054am Parties Present: Patient Interventions: History taking Cognitive Behavioral MENTAL STATUS: Mood: euthymic Affect: mood-congruent Thoughts/Associations: goal directed Suicidal/Homicidal Ideation: None expressed or evidenced MEDICATIONS: Per medical record: Current Outpatient Medications Medication Sig hydrOXYzine HCl (ATARAX) 25 mg tablet Take 1 tablet by mouth three times a day as needed. mirtazapine (REMERON) 7.5 mg tablet Take 1 tablet by mouth daily at bedtime. pravastatin (PRAVACHOL) 20 mg tablet Take 1 tablet by mouth daily at bedtime. carbidopa-levodopa (SINEMET 25-100) 25-100 mg per tablet Take 1 tab at 4AM, 1 tab at 7AM, 2 tabs at 11AM, 2 tabs at 3PM and 1.5 tabs at 7PM. carbidopa-levodopa CR (SINEMET CR) 50-200 mg per tablet TAKE 1 TABLET BY MOUTH in Morning and before bedtime as instructed. midodrine (PROAMATINE) 10 mg tablet Take 1 tablet by mouth every 8 hours. ondansetron orally disintegrating (ZOFRAN ODT) 4 mg disintegrating tablet Take 1 tablet by mouth every 8 hours as needed for nausea/vomiting. pantoprazole DR (PROTONIX) 40 mg tablet Take [...] daily. Take on empty stomach. For Thyroid Olopatadine (PATADAY ONCE DAILY RELIEF) 0.2 % drop Use 1 Drop in both eyes once daily. (Patient not taking: Reported on 11/04/2024) LORazepam (ATIVAN) 0.5 mg Take 0.5 mg by mouth as needed. Cholecalciferol, Vitamin D3, 50 mcg (2,000 unit) cap Take 2,000 Units by mouth once daily. No current facility-administered medications for this visit. Psychiatric Medication Issues: No change from previous appointment PROGRESS TO DATE/ASSESSMENT: Ms. Oliver presents with established diagnoses of EVAN. Today patient reports stability in symptoms of anxiety over past few weeks. Pt attributes this to medications prescribed by psychiatrist and decrease in stressors. Pt states she has used learned skills (deep breathing, 5 senses) to fall back to sleep at night and this has helped. Discussed assertive communication to voice her needs and opinions as pt states she is a very passive person and does not do well with setting boundaries. Pt's ex often stops by unannounced and this causes stress. Discussed how to utilize assertive communication using this example. Pt also states she expresses very poor self talk and does not value herself enough to stand up for herself. Discussed and processed this thought. Pt to challenge these thoughts by considering things she loves about herself and combat these thoughts with facts. TREATMENT PLAN/GOALS/OBJECTIVES: Homework: continue to trial learned skills Next: Cognitive Restructuring Follow Up: 2 weeks LOVE Diaz [place] [facility] documented in this encounter [facility] 01-13-2025 Note HNO ID: [id number] Author: KALLIE GUERRERO LISW Service: ? Author Type: [employer]ab Type: Progress Notes Filed: 01/13/2025 10:59 Note Text: [facility] [place] [facility] Progress Note PSYCHOLOGY: FOLLOW-UP APPOINTMENT PROGRESS NOTE- Virtual Visit I have communicated my name and active licensure. The patient's identity and physical location were verified at the time of this visit. Either the patient or their legal auto service representative has been informed of the risks and benefits of -- and alternatives to -- treatment through a remote evaluation and consents to proceed with the evaluation remotely. Lou Oliver 01/13/2025 [id number] PROVIDER: LOVE Diaz Service: Psychotherapy, 45 minutes with patient and/or family- Virtual Visit Diagnosis: Generalized anxiety disorder (primary encounter diagnosis) Time spent doing therapy with patient: 1010-1054am Parties Present: Patient Interventions: History taking Cognitive Behavioral MENTAL STATUS: Mood: euthymic Affect: mood-congruent Thoughts/Associations: goal directed Suicidal/Homicidal Ideation: None expressed or evidenced MEDICATIONS: Per medical record: Current Outpatient Medications Medication Sig hydrOXYzine HCl (ATARAX) 25 mg tablet Take 1 tablet by mouth three times a day as needed. mirtazapine (REMERON) 7.5 mg tablet Take 1 tablet by mouth daily at bedtime. pravastatin (PRAVACHOL) 20 mg tablet Take 1 tablet by mouth daily at bedtime. carbidopa-levodopa (SINEMET 25-100) 25-100 mg per tablet Take 1 tab at 4AM, 1 tab at 7AM, 2 tabs at 11AM, 2 tabs at 3PM and 1.5 tabs at 7PM. carbidopa-levodopa CR (SINEMET CR) 50-200 mg per tablet TAKE 1 TABLET BY MOUTH in Morning and before bedtime as instructed. midodrine (PROAMATINE) 10 mg tablet Take 1 tablet by mouth every 8 hours. ondansetron orally disintegrating (ZOFRAN ODT) 4 mg disintegrating tablet Take 1 tablet by mouth every 8 hours as needed for nausea/vomiting. pantoprazole DR (PROTONIX) 40 mg tablet Take [...] daily. Take on empty stomach. For Thyroid Olopatadine (PATADAY ONCE DAILY RELIEF) 0.2 % drop Use 1 Drop in both eyes once daily. (Patient not taking: Reported on 11/04/2024) LORazepam (ATIVAN) 0.5 mg Take 0.5 mg by mouth as needed. Cholecalciferol, Vitamin D3, 50 mcg (2,000 unit) cap Take 2,000 Units by mouth once daily. No current facility-administered medications for this visit. Psychiatric Medication Issues: No change from previous appointment PROGRESS TO DATE/ASSESSMENT: Ms. Oliver presents with established diagnoses of EVAN. Today patient reports stability in symptoms of anxiety over past few weeks. Pt attributes this to medications prescribed by psychiatrist and decrease in stressors. Pt states she has used learned skills (deep breathing, 5 senses) to fall back to sleep at night and this has helped. Discussed assertive communication to voice her needs and opinions as pt states she is a very passive person and does not do well with setting boundaries. Pt's ex often stops by unannounced and this causes stress. Discussed how to utilize assertive communication using this example. Pt also states she expresses very poor self talk and does not value herself enough to stand up for herself. Discussed and processed this thought. Pt to challenge these thoughts by considering things she loves about herself and combat these thoughts with facts. TREATMENT PLAN/GOALS/OBJECTIVES: Homework: continue to trial learned skills Next: Cognitive Restructuring Follow Up: 2 weeks LOVE Diaz [place] [facility] 01-04-2025 Instructions Lucía Rizzo MD - 01/04/2025 9:28 AM EDT - Continue taking Hydroxyzine 25 mg three times a day as prescribed by Dr. Trevino. - Monitor your blood pressure regularly. Only take Midodrine if your blood pressure falls below 110 mmHg. - Maintain your current schedule for Parkinson's medications. - Continue attending Parkinson's exercise therapies and physical therapies five days a week. - Wear leggings and tight socks to help manage orthostatic hypotension. - Eat calorie-dense foods to maintain weight. - Complete blood work to check iron levels; the lab is located downstairs. - Next follow-up appointment is in 3 months. documented in this encounter [facility] 01-04-2025 History of Present illness Narrative Reason for Visit Lou is a 79-year-old female with a history of migraines, Parkinson's disease, meningioma, HTN, hyperlipidemia, palpitations, hypothyroidism, and anxiety, presenting for follow-up. HPI Anxiety and Depression: - Significant improvement in mood and anxiety since starting hydroxyzine 25 mg TID. - Previously experienced daily crying and severe depression; now feels more like myself. - Family has noticed improvement in mood. - Also taking sertraline and mirtazapine. - No major memory issues reported, though some difficulty recalling names. Orthostatic Hypotension: - Previously experienced extremely low blood pressures, sometimes as low as 50/50 mmHg. - Started on midodrine, which improved blood pressure readings to 120-130 mmHg. - Currently not taking midodrine as long as blood pressure remains above 110 mmHg. - Still experiences some dizziness when getting up quickly, but less severe than before. Weight Loss: - Previously had poor appetite and weight loss; advised to eat calorie-dense foods. - Has gained back 10 lbs and reports improved appetite. - No longer experiences chronic abdominal pain and nausea that lasted for 4 years. Parkinson's Disease: - Medication schedule adjusted, leading to improved symptom management. - Participates in Parkinson's exercise therapies and physical therapy 5 days a week. - Still able to drive. - Experiences tremors when medication is due. Meningioma: - Currently not causing any problems. Falls: - Has had falls in the past year, including two that required medical attention. - Falls have decreased in frequency with improved dizziness management. Social History Tobacco Use Smoking status: Never Smokeless tobacco: Never Tobacco comments: Father smoked in childhood home. 2 spouses were smokers. Vaping Use Vaping status: Never Used Substance Use Topics Alcohol use: No Drug use: No Past medical history, appointments, medications, allergies reviewed. Pertinent Lab/Diagnostic Studies are reviewed and discussed today [facility] Maintenance Shingrix Vaccine(2 of 3) RSV Vaccine(1 - 1-dose 75+ series) Influenza Vaccine(1) Covid-19 Vaccine( season) Advance Directive Discussion@ Review Of Systems Neurological: (+) dizziness, (+) tremors, (+) mild forgetfulness Psychiatric: (-) depression, (-) anxiety Physical Exam BP 113/67 Pulse 85 Resp 16 Wt 58.4 kg (128 lb 12.8 oz) SpO2 97% BMI 22.82 kg/m GENERAL: NAD, alert and oriented. SKIN: Unremarkable, no rash or skin lesions. HEAD: Normocephalic. EYES: PERRLA, EOMI, conjunctiva clear. EARS: External ears normal, canals clear, TM's normal. NOSE/SINUSES: Nares normal. Septum midline. OROPHARYNX: Lips, mucosa, and tongue normal, good dentition. No oral lesions noted. NECK: Supple, no lymphadenopathy, normal thyroid, no carotid bruits. LUNGS: Clear to auscultation bilaterally, no wheezes/rhonchi/rales. HEART: Regular rate and rhythm, no murmurs. No ectopy. EXTREMITIES: Normal, no deformities, no skin discoloration, no edema. NEURO: Awake, alert and oriented x3, cranial nerves II-XII grossly intact, normal gait, no involuntary motions. Assessment and Plan 1. Moderate episode of recurrent major depressive disorder (HCC) (F33.1) 2. EVAN (generalized anxiety disorder) (F41.1) - Significant improvement in mood, anxiety, and crying episodes since initiation of hydroxyzine [address] Trevino. - Continues sertraline and mirtazapine; no adverse effects reported. - Discussed anticholinergic effects of hydroxyzine, but benefits currently outweigh risks. - Monitor for any cognitive changes. 3. Meningioma (HCC) (D32.9) - Currently asymptomatic; no recent issues reported. - Continue regular monitoring. 4. Essential hypertension, benign (I10) 5. Orthostatic hypotension (I95.1) - Blood pressure stabilized with midodrine; readings consistently above 110 mmHg systolic. - Midodrine use adjusted based on BP readings; currently holding if BP remains above 110 mmHg. - Mild dizziness on rapid position changes persists; advised to continue wearing compression stockings. - Monitor BP regularly. 6. Parkinson's disease with dyskinesia, unspecified whether manifestations fluctuate (HCC) (G20.B1) - Improved symptom management with adjusted medication timing. - Engaged in Parkinson's exercise therapies and physical activities 5 days a week. - Continue current regimen and follow-up with neurology as scheduled. 7. Anemia, unspecified type (D64.9) - Mild anemia noted on CBC with hemoglobin at 11 g/dL; chronic issue. - Vitamin B12 levels normal at 355 pg/mL. - Ordered iron studies to evaluate for iron deficiency. - Will initiate iron supplementation if indicated based on lab results. Voice recognition software was used to compose this office note. Please excuse any unintended typographical errors. The patient consented to the use of ambient [email or web address] software for draft documentation of the visit consistent with [facility] s Notice of Privacy Practices. Lucía Rizzo MD documented in this encounter [facility] 01-04-2025 Note HNO ID: [id number] Author: LUCÍA RIZZO MD Service: ? Author Type: Physician Type: Progress Notes Filed: 01/04/2025 12:41 Note Text: Reason for Visit Lou is a 79-year-old female with a history of migraines, Parkinson's disease, meningioma, HTN, hyperlipidemia, palpitations, hypothyroidism, and anxiety, presenting for follow-up. HPI Anxiety and Depression: - Significant improvement in mood and anxiety since starting hydroxyzine 25 mg TID. - Previously experienced daily crying and severe depression; now feels more like myself. - Family has noticed improvement in mood. - Also taking sertraline and mirtazapine. - No major memory issues reported, though some difficulty recalling names. Orthostatic Hypotension: - Previously experienced extremely low blood pressures, sometimes as low as 50/50 mmHg. - Started on midodrine, which improved blood pressure readings to 120-130 mmHg. - Currently not taking midodrine as long as blood pressure remains above 110 mmHg. - Still experiences some dizziness when getting up quickly, but less severe than before. Weight Loss: - Previously had poor appetite and weight loss; advised to eat calorie-dense foods. - Has gained back 10 lbs and reports improved appetite. - No longer experiences chronic abdominal pain and nausea that lasted for 4 years. Parkinson's Disease: - Medication schedule adjusted, leading to improved symptom management. - Participates in Parkinson's exercise therapies and physical therapy 5 days a week. - Still able to drive. - Experiences tremors when medication is due. Meningioma: - Currently not causing any problems. Falls: - Has had falls in the past year, including two that required medical attention. - Falls have decreased in frequency with improved dizziness management. Social History Tobacco Use Smoking status: Never Smokeless tobacco: Never Tobacco comments: Father smoked in childhood home. 2 spouses were smokers. Vaping Use Vaping status: Never Used Substance Use Topics Alcohol use: No Drug use: No Past medical history, appointments, medications, allergies reviewed. Pertinent Lab/Diagnostic Studies are reviewed and discussed today [facility] Maintenance Shingrix Vaccine(2 of 3) RSV Vaccine(1 - 1-dose 75+ series) Influenza Vaccine(1) Covid-19 Vaccine( season) Advance Directive Discussion@ Review Of Systems Neurological: (+) dizziness, (+) tremors, (+) mild forgetfulness Psychiatric: (-) depression, (-) anxiety Physical Exam BP 113/67 Pulse 85 Resp 16 Wt 58.4 kg (128 lb 12.8 oz) SpO2 97% BMI 22.82 kg/m? GENERAL: NAD, alert and oriented. SKIN: Unremarkable, no rash or skin lesions. HEAD: Normocephalic. EYES: PERRLA, EOMI, conjunctiva clear. EARS: External ears normal, canals clear, TM's normal. NOSE/SINUSES: Nares normal. Septum midline. OROPHARYNX: Lips, mucosa, and tongue normal, good dentition. No oral lesions noted. NECK: Supple, no lymphadenopathy, normal thyroid, no carotid bruits. LUNGS: Clear to auscultation bilaterally, no wheezes/rhonchi/rales. HEART: Regular rate and rhythm, no murmurs. No ectopy. EXTREMITIES: Normal, no deformities, no skin discoloration, no edema. NEURO: Awake, alert and oriented x3, cranial nerves II-XII grossly intact, normal gait, no involuntary motions. Assessment and Plan 1. Moderate episode of recurrent major depressive disorder (HCC) (F33.1) 2. EVNA (generalized anxiety disorder) (F41.1) - Significant improvement in mood, anxiety, and crying episodes since initiation of hydroxyzine [address] Trevino. - Continues sertraline and mirtazapine; no adverse effects reported. - Discussed anticholinergic effects of hydroxyzine, but benefits currently outweigh risks. - Monitor for any cognitive changes. 3. Meningioma (HCC) (D32.9) - Currently asymptomatic; no recent issues reported. - Continue regular monitoring. 4. Essential hypertension, benign (I10) 5. Orthostatic hypotension (I95.1) - Blood pressure stabilized with midodrine; readings consistently above 110 mmHg systolic. - Midodrine use adjusted based on BP readings; currently holding if BP remains above 110 mmHg. - Mild dizziness on rapid position changes persists; advised to continue wearing compression stockings. - Monitor BP regularly. 6. Parkinson's disease with dyskinesia, unspecified whether manifestations fluctuate (HCC) (G20.B1) - Improved symptom management with adjusted medication timing. - Engaged in Parkinson's exercise therapies and physical activities 5 days a week. - Continue current regimen and follow-up with neurology as scheduled. 7. Anemia, unspecified type (D64.9) - Mild anemia noted on CBC with hemoglobin at 11 g/dL; chronic issue. - Vitamin B12 levels normal at 355 pg/mL. - Ordered iron studies to evaluate for iron deficiency. - Will initiate iron supplementation if indicated based o (more content not included)... [facility] 12-30-2024 History of Present illness Narrative [facility] [place] [facility] Progress Note PSYCHOLOGY: FOLLOW-UP APPOINTMENT PROGRESS NOTE- Virtual Visit I have communicated my name and active licensure. The patient's identity and physical location were verified at the time of this visit. Either the patient or their legal auto service representative has been informed of the risks and benefits of -- and alternatives to -- treatment through a remote evaluation and consents to proceed with the evaluation remotely. Lou Oliver 12/30/2024 [id number] PROVIDER: LOVE Diaz Service: Psychotherapy, 30 minutes with patient and/or family- Virtual Visit Diagnosis: Generalized anxiety disorder (primary encounter diagnosis) Time spent doing therapy with patient: 1001am- 1035am Parties Present: Patient Interventions: History taking Cognitive Behavioral MENTAL STATUS: Mood: euthymic Affect: mood-congruent Thoughts/Associations: goal directed Suicidal/Homicidal Ideation: None expressed or evidenced MEDICATIONS: Per medical record: Current Outpatient Medications Medication Sig hydrOXYzine HCl (ATARAX) 25 mg tablet Take 1 tablet by mouth three times a day as needed. mirtazapine (REMERON) 7.5 mg tablet Take 1 tablet by mouth daily at bedtime. pravastatin (PRAVACHOL) 20 mg tablet Take 1 tablet by mouth daily at bedtime. carbidopa-levodopa (SINEMET 25-100) 25-100 mg per tablet Take 1 tab at 4AM, 1 tab at 7AM, 2 tabs at 11AM, 2 tabs at 3PM and 1.5 tabs at 7PM. carbidopa-levodopa CR (SINEMET CR) 50-200 mg per tablet TAKE 1 TABLET BY MOUTH in Morning and before bedtime as instructed. midodrine (PROAMATINE) 10 mg tablet Take 1 tablet by mouth every 8 hours. ondansetron orally disintegrating (ZOFRAN ODT) 4 mg disintegrating tablet Take 1 tablet by mouth every 8 hours as needed for nausea/vomiting. pantoprazole DR (PROTONIX) 40 mg tablet Take [...] daily. Take on empty stomach. For Thyroid Olopatadine (PATADAY ONCE DAILY RELIEF) 0.2 % drop Use 1 Drop in both eyes once daily. (Patient not taking: Reported on 11/04/2024) LORazepam (ATIVAN) 0.5 mg Take 0.5 mg by mouth as needed. Cholecalciferol, Vitamin D3, 50 mcg (2,000 unit) cap Take 2,000 Units by mouth once daily. No current facility-administered medications for this visit. Psychiatric Medication Issues: No change from previous appointment Mood/Behavior Depression: PHQ-9 Score: 8 usually representing mild (5-9) depression. Anxiety: EVAN-7 Total Score: 7 usually representing mild (5-9) anxiety. Finally, the following table shows the patient's overall global physical and mental health using the PROMIS scale: PROMIS-10 Flowsheet Row [facility] from 12/30/2024 in [facility] Most recent reading at 12/23/2024 8:47 AM [facility] from 12/28/2024 in [facility] Most recent reading at 12/23/2024 8:47 AM Global Physical Health T Score 42.3 42.3 Global Mental Health T Score 43.5 43.5 0-10 Standard Pain Scale 3 3 *PROMIS-10 scoring scale: mean = 50, over 50 is above average, under 50 is below average PROGRESS TO DATE/ASSESSMENT: Ms. Oliver presents with established diagnoses of EVAN. Today patient reports episodes of anxiety surrounding having difficult conversations such as planning for the future with PD and off periods between medication doses. Pt states much of her anxiety and depressive symptoms have decreased over the past few weeks since beginning a new medication for mood. Nausea from sinemet was a major contributor to lack of motivation, sadness, and lack of energy. She reports this has cleared up and she contributes this to improved mood and mental health. Discussed coping skills she is hoping to learn from these sessions. She already uses deep breathing, reading, and social supports as coping mechanisms. Discussed distraction tools, mindfulness, and self care methods. Also discussed learning assertive communication for difficult conversations she would like to have with her family regarding planning for the future with PD. TREATMENT PLAN/GOALS/OBJECTIVES: Homework: Trial provided coping skills Next: Cognitive Restructuring Assertiveness Training Follow Up: 2 weeks LOVE Diaz [place] [facility] documented in this encounter [facility] 12-30-2024 Note HNO ID: [id number] Author: KALLIE GUERRERO LISW Service: ? Author Type: [employer] Type: Progress Notes Filed: 12/30/2024 10:43 Note Text: [facility] [place] [facility] Progress Note PSYCHOLOGY: FOLLOW-UP APPOINTMENT PROGRESS NOTE- Virtual Visit I have communicated my name and active licensure. The patient's identity and physical location were verified at the time of this visit. Either the patient or their legal auto service representative has been informed of the risks and benefits of -- and alternatives to -- treatment through a remote evaluation and consents to proceed with the evaluation remotely. Lou Oliver 12/30/2024 [id number] PROVIDER: LOVE Diaz Service: Psychotherapy, 30 minutes with patient and/or family- Virtual Visit Diagnosis: Generalized anxiety disorder (primary encounter diagnosis) Time spent doing therapy with patient: 1001am- 1035am Parties Present: Patient Interventions: History taking Cognitive Behavioral MENTAL STATUS: Mood: euthymic Affect: mood-congruent Thoughts/Associations: goal directed Suicidal/Homicidal Ideation: None expressed or evidenced MEDICATIONS: Per medical record: Current Outpatient Medications Medication Sig hydrOXYzine HCl (ATARAX) 25 mg tablet Take 1 tablet by mouth three times a day as needed. mirtazapine (REMERON) 7.5 mg tablet Take 1 tablet by mouth daily at bedtime. pravastatin (PRAVACHOL) 20 mg tablet Take 1 tablet by mouth daily at bedtime. carbidopa-levodopa (SINEMET 25-100) 25-100 mg per tablet Take 1 tab at 4AM, 1 tab at 7AM, 2 tabs at 11AM, 2 tabs at 3PM and 1.5 tabs at 7PM. carbidopa-levodopa CR (SINEMET CR) 50-200 mg per tablet TAKE 1 TABLET BY MOUTH in Morning and before bedtime as instructed. midodrine (PROAMATINE) 10 mg tablet Take 1 tablet by mouth every 8 hours. ondansetron orally disintegrating (ZOFRAN ODT) 4 mg disintegrating tablet Take 1 tablet by mouth every 8 hours as needed for nausea/vomiting. pantoprazole DR (PROTONIX) 40 mg tablet Take [...] daily. Take on empty stomach. For Thyroid Olopatadine (PATADAY ONCE DAILY RELIEF) 0.2 % drop Use 1 Drop in both eyes once daily. (Patient not taking: Reported on 11/04/2024) LORazepam (ATIVAN) 0.5 mg Take 0.5 mg by mouth as needed. Cholecalciferol, Vitamin D3, 50 mcg (2,000 unit) cap Take 2,000 Units by mouth once daily. No current facility-administered medications for this visit. Psychiatric Medication Issues: No change from previous appointment Mood/Behavior Depression: PHQ-9 Score: 8 usually representing mild (5-9) depression. Anxiety: EVAN-7 Total Score: 7 usually representing mild (5-9) anxiety. Finally, the following table shows the patient's overall global physical and mental health using the PROMIS scale: PROMIS-10 Flowsheet Row [facility] from 12/30/2024 in [facility] Most recent reading at 12/23/2024 8:47 AM [facility] from 12/28/2024 in [facility] Most recent reading at 12/23/2024 8:47 AM Global Physical Health T Score 42.3 42.3 Global Mental Health T Score 43.5 43.5 0-10 Standard Pain Scale 3 3 *PROMIS-10 scoring scale: mean = 50, over 50 is above average, under 50 is below average PROGRESS TO DATE/ASSESSMENT: Ms. Oliver presents with established diagnoses of EVAN. Today patient reports episodes of anxiety surrounding having difficult conversations such as planning for the future with PD and off periods between medication doses. Pt states much of her anxiety and depressive symptoms have decreased over the past few weeks since beginning a new medication for mood. Nausea from sinemet was a major contributor to lack of motivation, sadness, and lack of energy. She reports this has cleared up and she contributes this to improved mood and mental health. Discussed coping skills she is hoping to learn from these sessions. She already uses deep breathing, reading, and social supports as coping mechanisms. Discussed distraction tools, mindfulness, and self care methods. Also discussed learning assertive communication for difficult conversations she would like to have with her family regarding planning for the future with PD. TREATMENT PLAN/GOALS/OBJECTIVES: Homework: Trial provided coping skills Next: Cognitive Restructuring Assertiveness Training Follow Up: 2 weeks [facility] [place] [facility] 12-28-2024 Note HNO ID: [id number] Author: JUAN CARLOS ORDOÑEZ MD Service: ? Author Type: Physician Type: Progress Notes Filed: 12/28/2024 14:20 Note Text: Psychiatry Follow-up Note SERVICE DATE: December 28, 2024 Visit Type: Virtual Visit utilizing two-way audio and video for at least a portion of the visit. Consent for virtual visit obtained verbally. Confidentiality limitations with virtual visits reviewed with the patient and guardian, if present, who have accepted the risk verbally prior to proceeding with encounter. I have communicated my name and active licensure. The patient's identity and physical location were verified at the time of this visit. Either the patient or their legal auto service representative has been informed of the risks and benefits of -- and alternatives to -- treatment through a remote evaluation and consents to proceed with the evaluation remotely. Subjective PRESENT HISTORY: Patient last seen 11/09 at which time PRN hydroxyzine was added to sertraline and mirtazapine. Seen virtually today she reports feeling much better. Anxiety and sleep significantly improved, also crying less often. Her Sinemet timing was adjusted which greatly improved her nausea- now eating more, gaining weight and experiencing better energy throughout the day. She has been taking hydroxyzine 3x/day consistently. Her daughters have reportedly noticed a great improvement in her mood. Does Patient Have Any Suicidal Ideations: No MEDICATIONS: Current Outpatient Medications Medication Sig Dispense Refill hydrOXYzine HCl (ATARAX) 25 mg tablet Take 1 tablet by mouth three times a day as needed. 90 tablet 2 mirtazapine (REMERON) 7.5 mg tablet Take 1 tablet by mouth daily at bedtime. 30 tablet 11 pravastatin (PRAVACHOL) 20 mg tablet Take 1 tablet by mouth daily at bedtime. 90 tablet 3 carbidopa-levodopa (SINEMET 25-100) 25-100 mg per tablet Take 1 tab at 4AM, 1 tab at 7AM, 2 tabs at 11AM, 2 tabs at 3PM and 1.5 tabs at 7PM. 675 tablet 3 carbidopa-levodopa CR (SINEMET CR) 50-200 mg per tablet TAKE 1 TABLET BY MOUTH in Morning and before bedtime as instructed. 180 tablet 3 midodrine (PROAMATINE) 10 mg tablet Take 1 tablet by mouth every 8 hours. 90 tablet 1 ondansetron orally disintegrating (ZOFRAN ODT) 4 mg disintegrating tablet Take 1 tablet by mouth every 8 hours as needed for nausea/vomiting. [address] (PROTONIX) 40 mg tablet Take 1 tablet by mouth once daily. On empty stomach at least 30 minutes before eating. 90 tablet 3 sertraline (ZOLOFT) 50 mg [...] empty stomach. For Thyroid 90 tablet 3 Olopatadine (PATADAY ONCE DAILY RELIEF) 0.2 % drop Use 1 Drop in both eyes once daily. (Patient not taking: Reported on 11/04/2024) 5 mL 0 LORazepam (ATIVAN) 0.5 mg Take 0.5 mg by mouth as needed. Cholecalciferol, Vitamin D3, 50 mcg (2,000 unit) cap Take 2,000 Units by mouth once daily. No current facility-administered medications for this visit. Objective LABS : Lab Results Component Value Date/Time WBC 5.20 12/24/2024 08:27 AM WBC 4.94 05/26/2019 01:02 PM RBC 3.55 (L) 12/24/2024 08:27 AM RBC 3.70 (L) 05/26/2019 01:02 PM HCT 33.4 (L) 12/24/2024 08:27 AM HCT 34.3 (L) 05/26/2019 01:02 PM MCV 94.1 12/24/2024 08:27 AM MCV 92.7 05/26/2019 01:02 PM MCH 31.0 12/24/2024 08:27 AM MCH 31.4 05/26/2019 01:02 PM MCHC 32.9 12/24/2024 08:27 AM MCHC 33.8 05/26/2019 01:02 PM RDWCV 13.0 12/24/2024 08:27 AM RDWCV 12.5 05/26/2019 01:02 PM PLT 231 12/24/2024 08:27 AM PLT 246 05/26/2019 01:02 PM NEUTP 63.6 12/24/2024 08:27 AM NEUTP 32.4 (L) 10/09/2013 09:20 AM LYMPHP 26.3 12/24/2024 08:27 AM LYMPHP 54.2 (H) 10/09/2013 09:20 AM MONOP 6.0 12/24/2024 08:27 AM MONOP 8.6 10/09/2013 09:20 AM EODINP 3.3 12/24/2024 08:27 AM EODINP 4.3 10/09/2013 09:20 AM BASOP 0.4 12/24/2024 08:27 AM BASOP 0.5 10/09/2013 09:20 AM ABSNEUT 3.31 12/24/2024 08:27 AM ABSNEUT 1.20 (L) 10/09/2013 09:20 AM ABSMONO 0.31 12/24/2024 08:27 AM ABSMONO 0.32 10/09/2013 09:20 AM ABSEOSIN 0.17 12/24/2024 08:27 AM ABSEOSIN 0.16 10/09/2013 09:20 AM ABSBASO <0.03 12/24/2024 08:27 AM ABSBASO 0.02 10/09/2013 09:20 AM GLUC 101 (H) 12/24/2024 08:27 AM GLUC 86 12/15/2020 10:57 AM NA 140 12/24/2024 08:27 AM NA 139 12/15/2020 10:57 AM K 3.8 12/24/2024 08:27 AM K 4.7 12/15/2020 10:57 AM CHLOR 104 12/24/2024 08:27 AM CHLOR 103 12/15/2020 10:57 AM BUN 24 (H) 12/24/2024 08:27 AM BUN 27 (H) 12/15/2020 10:57 AM CREAT 0.62 12/24/2024 08:27 AM CREAT 0.69 12/15/2020 10:57 AM MG 2.1 07/14/2024 02:32 PM TSH 3.060 12/24/2024 08:27 AM TSH 1.000 06/19/2021 09:02 AM CO2 26 03/0 (more content not included)... [facility] 12-28-2024 History of Present illness Narrative Psychiatry Follow-up Note SERVICE DATE: December 28, 2024 Visit Type: Virtual Visit utilizing two-way audio and video for at least a portion of the visit. Consent for virtual visit obtained verbally. Confidentiality limitations with virtual visits reviewed with the patient and guardian, if present, who have accepted the risk verbally prior to proceeding with encounter. I have communicated my name and active licensure. The patient's identity and physical location were verified at the time of this visit. Either the patient or their legal auto service representative has been informed of the risks and benefits of -- and alternatives to -- treatment through a remote evaluation and consents to proceed with the evaluation remotely. Subjective PRESENT HISTORY: Patient last seen 11/09 at which time PRN hydroxyzine was added to sertraline and mirtazapine. Seen virtually today she reports feeling much better. Anxiety and sleep significantly improved, also crying less often. Her Sinemet timing was adjusted which greatly improved her nausea- now eating more, gaining weight and experiencing better energy throughout the day. She has been taking h\ydroxyzine 3x/day consistently. Her daughters have reportedly noticed a great improvement in her mood. Does Patient Have Any Suicidal Ideations: No MEDICATIONS: Current Outpatient Medications Medication Sig Dispense Refill hydrOXYzine HCl (ATARAX) 25 mg tablet Take 1 tablet by mouth three times a day as needed. 90 tablet 2 mirtazapine (REMERON) 7.5 mg tablet Take 1 tablet by mouth daily at bedtime. 30 tablet 11 pravastatin (PRAVACHOL) 20 mg tablet Take 1 tablet by mouth daily at bedtime. 90 tablet 3 carbidopa-levodopa (SINEMET 25-100) 25-100 mg per tablet Take 1 tab at 4AM, 1 tab at 7AM, 2 tabs at 11AM, 2 tabs at 3PM and 1.5 tabs at 7PM. 675 tablet 3 carbidopa-levodopa CR (SINEMET CR) 50-200 mg per tablet TAKE 1 TABLET BY MOUTH in Morning and before bedtime as instructed. 180 tablet 3 midodrine (PROAMATINE) 10 mg tablet Take 1 tablet by mouth every 8 hours. 90 tablet 1 ondansetron orally disintegrating (ZOFRAN ODT) 4 mg disintegrating tablet Take 1 tablet by mouth every 8 hours as needed for nausea/vomiting. [address] (PROTONIX) 40 mg tablet Take 1 tablet by mouth once daily. On empty stomach at least 30 minutes before eating. 90 tablet 3 sertraline (ZOLOFT) 50 mg [...] empty stomach. For Thyroid 90 tablet 3 Olopatadine (PATADAY ONCE DAILY RELIEF) 0.2 % drop Use 1 Drop in both eyes once daily. (Patient not taking: Reported on 11/04/2024) 5 mL 0 LORazepam (ATIVAN) 0.5 mg Take 0.5 mg by mouth as needed. Cholecalciferol, Vitamin D3, 50 mcg (2,000 unit) cap Take 2,000 Units by mouth once daily. No current facility-administered medications for this visit. Objective LABS : Lab Results Component Value Date/Time WBC 5.20 12/24/2024 08:27 AM WBC 4.94 05/26/2019 01:02 PM RBC 3.55 (L) 12/24/2024 08:27 AM RBC 3.70 (L) 05/26/2019 01:02 PM HCT 33.4 (L) 12/24/2024 08:27 AM HCT 34.3 (L) 05/26/2019 01:02 PM MCV 94.1 12/24/2024 08:27 AM MCV 92.7 05/26/2019 01:02 PM MCH 31.0 12/24/2024 08:27 AM MCH 31.4 05/26/2019 01:02 PM MCHC 32.9 12/24/2024 08:27 AM MCHC 33.8 05/26/2019 01:02 PM RDWCV 13.0 12/24/2024 08:27 AM RDWCV 12.5 05/26/2019 01:02 PM PLT 231 12/24/2024 08:27 AM PLT 246 05/26/2019 01:02 PM NEUTP 63.6 12/24/2024 08:27 AM NEUTP 32.4 (L) 10/09/2013 09:20 AM LYMPHP 26.3 12/24/2024 08:27 AM LYMPHP 54.2 (H) 10/09/2013 09:20 AM MONOP 6.0 12/24/2024 08:27 AM MONOP 8.6 10/09/2013 09:20 AM EODINP 3.3 12/24/2024 08:27 AM EODINP 4.3 10/09/2013 09:20 AM BASOP 0.4 12/24/2024 08:27 AM BASOP 0.5 10/09/2013 09:20 AM ABSNEUT 3.31 12/24/2024 08:27 AM ABSNEUT 1.20 (L) 10/09/2013 09:20 AM ABSMONO 0.31 12/24/2024 08:27 AM ABSMONO 0.32 10/09/2013 09:20 AM ABSEOSIN 0.17 12/24/2024 08:27 AM ABSEOSIN 0.16 10/09/2013 09:20 AM ABSBASO <0.03 12/24/2024 08:27 AM ABSBASO 0.02 10/09/2013 09:20 AM GLUC 101 (H) 12/24/2024 08:27 AM GLUC 86 12/15/2020 10:57 AM NA 140 12/24/2024 08:27 AM NA 139 12/15/2020 10:57 AM K 3.8 12/24/2024 08:27 AM K 4.7 12/15/2020 10:57 AM CHLOR 104 12/24/2024 08:27 AM CHLOR 103 12/15/2020 10:57 AM BUN 24 (H) 12/24/2024 08:27 AM BUN 27 (H) 12/15/2020 10:57 AM CREAT 0.62 12/24/2024 08:27 AM CREAT 0.69 12/15/2020 10:57 AM MG 2.1 07/14/2024 02:32 PM TSH 3.060 12/24/2024 08:27 AM TSH 1.000 06/19/2021 09:02 AM CO2 26 12/24/2024 08:27 AM CO2 27 12/15/2020 10:57 AM TPROT 6.8 12/24/2024 08:27 AM TPROT 7.1 03/29/2020 08:55 AM ALB 4.2 12/24/2024 08:27 AM ALB 4.6 03/29/2020 08:55 AM CA 9.1 12/24/2024 08:27 AM CA 9.7 12/15/2020 10:57 AM AST 19 12/24/2024 08:27 AM AST 26 03/29/2020 08:55 AM ALT <5 (L) 12/24/2024 08:27 AM ALT 15 03/29/2020 08:55 AM ALKPHOS 133 (H) 12/24/2024 08:27 AM ALKPHOS 73 03/29/2020 08:55 AM TBILI 0.4 12/24/2024 08:27 AM TBILI 0.7 03/29/2020 08:55 AM Vital Signs: There were no vitals filed for this visit. PHYSICAL EXAMINATION: Mild, persistent truncal movements MENTAL STATUS EXAMINATION: Appearance: Elderly F, appears stated age Behaviour: Easily engaged, pleasant Psychomotor Activity: mild PMA (as above) Speech: Spontaneous, fluent Mood: much better' Affect: bright, euthymic Thought Processes: linear Associations: non-loosened Thought Content: no delusions or obsessions elicited Suicidal/Homicidal Ideation: denied PDW/SI/HI Perceptions/Experiences: did not appear internally preoccupied Insight: fair Judgement: fair Cognitive Exam: Focus/concentration conversationally intact Questionnaires: PHQ-9: 9 EVAN-7: 7 ASSESSMENT : This is a 79 y/o F w/ PMH PD, migraines, hypothyroidism, HTN and PPH MDD, EVAN and medication-induced anxiety (Sinemet) who presents for f/u. Doing much better today, I suspect this is largely from resolved nausea, return of appetite and improved caloric intake. Agreed to keep medications the same for now- will likely plan to reduce sertraline if she continues to do well to reduce polypharmacy- would not further increase sertraline or mirtazapine given pharmacologic redundancy and combined serotonergic activity. DIAGNOSIS: 1. MDD, recurrent, moderate 2. EVAN 3. Medication-induced anxiety disorder, onset during withdrawal (Sinemet) PLAN: #Safety -no acute safety concerns; patient is appropriate to f/u in outpt setting #Management Continue Hydroxyzine 25mg TID PRN Continue mirtazapine 7.5mg qHS Continue sertraline 150mg daily Follow up: 3-5 months My final impression and recommendations will be communicated back to the requesting physician by way of the shared medical record. SIGNATURE: Juan Carlos Ordoñez MD PATIENT NAME: Lou Oliver DATE: December 28, 2024 TIME: 1:58 PM I spent a total of 30 minutes on the date of the service which included preparing to see the patient, [id number] patient care, completing clinical documentation, obtaining and/or reviewing separately obtained history, performing a medically appropriate examination, and counseling and educating the patient/family/caregiver Juan Carlos Ordoñez MD documented in this encounter [facility] 11-23-2024 History of Present illness Narrative [facility] [place] Clinical Health Psychology Evaluation Time of Service: 12:35 pm to 1:30 pm CPT Code: - Virtual Psychological Diagnostic Interview Billing Code: Nancy I have communicated my name and active licensure. The patient's identity and physical location were verified at the time of this visit. Either the patient or their legal auto service representative has been informed of the risks and benefits of -- and alternatives to -- treatment through a remote evaluation and consents to proceed with the evaluation remotely. Identification and Presenting Problem: Ms. Oliver is a 79 year old female who was referred by Dr. Mabry from [facility] for a psychological evaluation and treatment recommendations. She presents with a history of Parkinson's disease since 2019. Per Neurology: Sinemet changes at last visit have addressed wearing off. She is now experiencing anxiety and depression that are felt to be consistent rather than OFF symptoms. This is keeping her from her social and exercise activities. She isn't sleeping or eating well. She has lost weight. Social History: Ms. Oliver was raised in [place] as one of five children in her family. Her parents remained throughout her childhood. Family history is significant for depression and anxiety as well as by suicide in her great grandfather, nephew, niece, and granddaughter. Ms. Oliver endorses a history of depression and anxiety which has been treated over the years via psychotropic medication, with reported benefit. The patient denies any history of alcohol or drug abuse in her family. Likewise, she denies any history of alcohol or drug abuse on her own part. Ms. Oliver denies any history of physical or sexual abuse in childhood. The patient previously worked at a [employer] for 35 years. She retired in 2019. The patient does not receive any disability payments, nor has she applied for any. Ms. Oliver is currently . Her first marriage lasted 27 years, and ended in divorce due to her 's alcoholism . . This marriage produced 2 children. She remarried for 3 years, which ended in divorce due to her 's unmanaged mental health problems. Social supports include her 2 daughters who live close to patient. ACTIVE PROBLEM LIST Essential Hypertension, Benign Hypothyroidism Migraine Without Aura Evan (Generalized Anxiety Disorder) Mixed Hyperlipidemia Pes Anserinus Bursitis of Left Knee Left Knee Pain Cervical Spondylosis Without Myelopathy Parkinson Disease (Hcc) Spinal Stenosis of Cervical Region Intracranial Meningioma (Hcc) Palpitations Shortness of Breath Tachycardia Neck Pain Neck Muscle Weakness Hematoma of Scalp Orthostatic Hypotension Impaired Functional Mobility, Balance, Gait, and Endurance Moderate Episode of Recurrent Major Depressive Disorder (Hcc) Anxiety Disorder Due to General Medical Condition Substance Or Medication-Induced Anxiety Disorder (Hcc) Current Functioning: Diagnosed 5 years ago. Describing adhering to a set routine. Met many new friends in support groups. Used to love camping and walking - but no longer can do this due to symptoms. Gone to the theater with daughter. Loves to read. Denies problems with sleep onset; though intermittently wakes up around 4am. Medications: Current Outpatient Medications Medication Sig hydrOXYzine HCl (ATARAX) 25 mg tablet Take 1 tablet by mouth three times a day as needed. mirtazapine (REMERON) 7.5 mg tablet Take 1 tablet by mouth daily at bedtime. pravastatin (PRAVACHOL) 20 mg tablet Take 1 tablet by mouth daily at bedtime. carbidopa-levodopa (SINEMET 25-100) 25-100 mg per tablet Take 1 tab at 4AM, 1 tab at 7AM, 2 tabs at 11AM, 2 tabs at 3PM and 1.5 tabs at 7PM. carbidopa-levodopa CR (SINEMET CR) 50-200 mg per tablet TAKE 1 TABLET BY MOUTH in Morning and before bedtime as instructed. midodrine (PROAMATINE) 10 mg tablet Take 1 tablet by mouth every 8 hours. ondansetron orally disintegrating (ZOFRAN ODT) 4 mg disintegrating tablet Take 1 tablet by mouth every 8 hours as needed for nausea/vomiting. pantoprazole DR (PROTONIX) 40 mg tablet Take [...] daily. Take on empty stomach. For Thyroid Olopatadine (PATADAY ONCE DAILY RELIEF) 0.2 % drop Use 1 Drop in both eyes once daily. (Patient not taking: Reported on 11/04/2024) docusate sodium (COLACE) 100 mg capsule Take 1 capsule by mouth two times a day. LORazepam (ATIVAN) 0.5 mg Take 0.5 mg by mouth as needed. Cholecalciferol, Vitamin D3, 50 mcg (2,000 unit) cap Take 2,000 Units by mouth once daily. No current facility-administered medications for this visit. -Intermittent mood symptoms: anhedonia, sleep disturbance, fatigue, appetite disturbance, self-criticism. Denies SI, intent, plan, or history -Mostly concerned about anxiety that occurs out of the blue (muscle tightness; trouble with breathing and adrenaline like a panic attack; would like to gain self-confidence back) -Attends 3-4 exercise PD groups for support Drug and alcohol screening and triage Caffeine use: The patient denies current caffeine use. Tobacco use: She is a nonsmoker. Current illicit drug use: None Current marijuana use: Ms. Oliver denied marijuana use within the past month. Current use of prescribed opioids, sedatives & benzodiazepines: Ms. Oliver does not use opioids or sedative/hypnotics. Alcohol use: Ms. Oliver has consumed no alcoholic beverages in the past week. She has not consumed more than 4 alcoholic beverages (3 if female) in a single sitting within the past month. Screening questions: - Has a family member, friend or physician expressed concern about your drug, alcohol, or prescription medication use? No. - Have you ever been evaluated or treated for problems with alcohol or other drugs, including prescribed drugs? No. - Have you ever been concerned that prescriptions, recreational drugs, or alcohol had become harmful to you? No. Impressions Ms. Oliver is a 79 year old female who was referred by Dr. Mabry from [facility] for a psychological evaluation and treatment recommendations. She presents with a history of Parkinson's disease since 2019. Per Neurology: Sinemet changes at last visit have addressed wearing off. She is now experiencing anxiety and depression that are felt to be consistent rather than OFF symptoms. This is keeping her from her social and exercise activities. She isn't sleeping or eating well. She has lost weight. Patient denies a significant mental health history and is interested in learning coping tools to manage anxiety that is often exacerbated during wearing off episodes. It is recommended that the patient be followed for Individual cognitive-behavioral therapy focusing on self-care, stress management, affect management, anxiety management, behavioral health, and coping with PD. Diagnoses: Anxiety (primary encounter diagnosis) Parkinson's disease with dyskinesia, unspecified whether manifestations fluctuate (hcc) Roger Bowman Psy.D. Staff, [facility] documented in this encounter [facility] 11-23-2024 Note HNO ID: [id number] Author: ROGER BOWMAN PSYD Service: ? Author Type: Physician Type: Progress Notes Filed: 12/07/2024 23:26 Note Text: [facility] [place] Clinical Health Psychology Evaluation Time of Service: 12:35 pm to 1:30 pm CPT Code: - Virtual Psychological Diagnostic Interview Billing Code: Nancy I have communicated my name and active licensure. The patient's identity and physical location were verified at the time of this visit. Either the patient or their legal auto service representative has been informed of the risks and benefits of -- and alternatives to -- treatment through a remote evaluation and consents to proceed with the evaluation remotely. Identification and Presenting Problem: Ms. Oliver is a 79 year old female who was referred by Dr. Mabry from [facility] for a psychological evaluation and treatment recommendations. She presents with a history of Parkinson's disease since 2019. Per Neurology: Sinemet changes at last visit have addressed wearing off. She is now experiencing anxiety and depression that are felt to be consistent rather than OFF symptoms. This is keeping her from her social and exercise activities. She isn't sleeping or eating well. She has lost weight. Social History: Ms. Oliver was raised in [place] as one of five children in her family. Her parents remained throughout her childhood. Family history is significant for depression and anxiety as well as by suicide in her great grandfather, nephew, niece, and granddaughter. Ms. Oliver endorses a history of depression and anxiety which has been treated over the years via psychotropic medication, with reported benefit. The patient denies any history of alcohol or drug abuse in her family. Likewise, she denies any history of alcohol or drug abuse on her own part. Ms. Oliver denies any history of physical or sexual abuse in childhood. The patient previously worked at a [employer] for 35 years. She retired in 2019. The patient does not receive any disability payments, nor has she applied for any. Ms. Oliver is currently . Her first marriage lasted 27 years, and ended in divorce due to her 's alcoholism . . This marriage produced 2 children. She remarried for 3 years, which ended in divorce due to her 's unmanaged mental health problems. Social supports include her 2 daughters who live close to patient. ACTIVE PROBLEM LIST Essential Hypertension, Benign Hypothyroidism Migraine Without Aura Evan (Generalized Anxiety Disorder) Mixed Hyperlipidemia Pes Anserinus Bursitis of Left Knee Left Knee Pain Cervical Spondylosis Without Myelopathy Parkinson Disease (Hcc) Spinal Stenosis of Cervical Region Intracranial Meningioma (Hcc) Palpitations Shortness of Breath Tachycardia Neck Pain Neck Muscle Weakness Hematoma of Scalp Orthostatic Hypotension Impaired Functional Mobility, Balance, Gait, and Endurance Moderate Episode of Recurrent Major Depressive Disorder (Hcc) Anxiety Disorder Due to General Medical Condition Substance Or Medication-Induced Anxiety Disorder (Hcc) Current Functioning: Diagnosed 5 years ago. Describing adhering to a set routine. Met many new friends in support groups. Used to love camping and walking - but no longer can do this due to symptoms. Gone to the theater with daughter. Loves to read. Denies problems with sleep onset; though intermittently wakes up around 4am. Medications: Current Outpatient Medications Medication Sig hydrOXYzine HCl (ATARAX) 25 mg tablet Take 1 tablet by mouth three times a day as needed. mirtazapine (REMERON) 7.5 mg tablet Take 1 tablet by mouth daily at bedtime. pravastatin (PRAVACHOL) 20 mg tablet Take 1 tablet by mouth daily at bedtime. carbidopa-levodopa (SINEMET 25-100) 25-100 mg per tablet Take 1 tab at 4AM, 1 tab at 7AM, 2 tabs at 11AM, 2 tabs at 3PM and 1.5 tabs at 7PM. carbidopa-levodopa CR (SINEMET CR) 50-200 mg per tablet TAKE 1 TABLET BY MOUTH in Morning and before bedtime as instructed. midodrine (PROAMATINE) 10 mg tablet Take 1 tablet by mouth every 8 hours. ondansetron orally disintegrating (ZOFRAN ODT) 4 mg disintegrating tablet Take 1 tablet by mouth every 8 hours as needed for nausea/vomiting. pantoprazole DR (PROTONIX) 40 mg tablet Take [...] daily. Take on empty stomach. For Thyroid Olopatadine (PATADAY ONCE DAILY RELIEF) 0.2 % drop Use 1 Drop in both eyes once daily. (Patient not taking: Reported on 11/04/2024) docusate sodium (COLACE) 100 mg capsule Ta (more content not included)... [facility] 11-23-2024 Miscellaneous Notes Panic attacks normally occur during off times, in the evening around 1900. Sinemet is usually due within in one hour Midodrine 10mg three times daily. Does not check BP prior to taking. Taking half doses = 5mg since 11/21/24 0700 1100 1500 Activities prior to checking BP, normal ADLs, cleaning, or sitting in chair, does not lay down after taking midodrine. Elevated BP is before 1900 dose of sinemet. During call 115/56 HR 77 Fluid intake trying hard to increase it 50-60 ounces daily throughout the day Was started on hydroxyzine, feels this is helpful and also sleeping better. Most recent BP, does not have the dates or correct times (BP machine was never programed) 166/77 127/59 112/51 201/82 11/20/24 1930 191/81 11/20/24 1900 148/59 92/43 120/54 166/68 159/78 100/50 85/40 93/50 82/44 111/64 114/55 90/46 90/53 122/54 95/44 Patient has been advised to check BP prior to taking midodrine and to hold for SBP greater than 110. Just seen on 11/05 and referred to psychiatry which she luckily was already able to do on 11/09. At 11/05 visit there did not seem to be any correlation with panic and Sinemet timing. Perhaps after that discussion she is noticing a link. If that is the case then can move 7p dose to 630 for now. For the BP- please verify the times she is taking midodrine and other BP readings. Last dose of midodrine shouldn't be later than dinner time. Perhaps with taking in more water she needs hold parameters on midodrine- don't take if BP over 110 systolic Patient calling to speak with someone about her blood pressure. She says she experiencing almost like a panic attack. She has been having elevated blood pressures. Last night it was 201/82 and she called the squad. She was told it was a panic attack and didn't feel she needed to go to the ER. She says this is occurring 2-3 days out of the month. She has had panic attacks in the past and these don't seem as intense. They also occur around the same time (usually around 7 pm). She isn't sure if it's related to her medications. She has also increased her water intake to 60 oz daily. She is requesting advise/recommendations. documented in this encounter [facility] 11-23-2024 Telephone encounter Note Panic attacks normally occur during off times, in the evening around 1900. Sinemet is usually due within in one hour Midodrine 10mg three times daily. Does not check BP prior to taking. Taking half doses = 5mg since 11/21/24 0700 1100 1500 Activities prior to checking BP, normal ADLs, cleaning, or sitting in chair, does not lay down after taking midodrine. Elevated BP is before 1900 dose of sinemet. During call 115/56 HR 77 Fluid intake trying hard to increase it 50-60 ounces daily throughout the day Was started on hydroxyzine, feels this is helpful and also sleeping better. Most recent BP, does not have the dates or correct times (BP machine was never programed) 166/77 127/59 112/51 201/82 11/20/24 1930 191/81 11/20/24 1900 148/59 92/43 120/54 166/68 159/78 100/50 85/40 93/50 82/44 111/64 114/55 90/46 90/53 122/54 95/44 Patient has been advised to check BP prior to taking midodrine and to hold for SBP greater than 110. [facility] 11-20-2024 Telephone encounter Note Just seen on 11/05 and referred to psychiatry which she luckily was already able to do on 11/09. At 11/05 visit there did not seem to be any correlation with panic and Sinemet timing. Perhaps after that discussion she is noticing a link. If that is the case then can move 7p dose to 630 for now. For the BP- please verify the times she is taking midodrine and other BP readings. Last dose of midodrine shouldn't be later than dinner time. Perhaps with taking in more water she needs hold parameters on midodrine- don't take if BP over 110 systolic [facility] 11-20-2024 Telephone encounter Note Patient calling to speak with someone about her blood pressure. She says she experiencing almost like a panic attack. She has been having elevated blood pressures. Last night it was 201/82 and she called the squad. She was told it was a panic attack and didn't feel she needed to go to the ER. She says this is occurring 2-3 days out of the month. She has had panic attacks in the past and these don't seem as intense. They also occur around the same time (usually around 7 pm). She isn't sure if it's related to her medications. She has also increased her water intake to 60 oz daily. She is requesting advise/recommendations. [facility] 11-09-2024 History and physical note NEW - PSYCHIATRY INITIAL EVALUATION SERVICE DATE: November 09, 2024 Visit Type: Virtual Visit utilizing two-way audio and video for at least a portion of the visit. Consent for virtual visit obtained verbally. Confidentiality limitations with virtual visits reviewed with the patient and guardian, if present, who have accepted the risk verbally prior to proceeding with encounter. I have communicated my name and active licensure. The patient's identity and physical location were verified at the time of this visit. Either the patient or their legal auto service representative has been informed of the risks and benefits of -- and alternatives to -- treatment through a remote evaluation and consents to proceed with the evaluation remotely. CONSULTING SERVICE : Psychiatry, requested by Dr. Sayra Mabry REASON FOR CONSULTATION: anxiety Subjective IDENTIFYING INFO: This is a 79 y/o F w/ PMH PD, migraines, hypothyroidism, HTN and PPH MDD, unspecified anxiety who presents for initial evaluation. HISTORY OF PRESENT ILLNESS : Patient seen virtually for initial evaluation. She reports a history of both depression and anxiety. She had been seeing a therapist, however they relocated and she has not sought someone new. She has never seen a psychiatrist before, however has trialed various psychotropics from different providers. She feels that her anxiety has been 'creeping up' recently. It is particularly experienced as her Sinemet is wearing off- feels panicked, helpless and scared. She can sometimes calm herself down, otherwise calls her nearby niece who can visit which is helpful. This is in the setting of worsened gait issues over the last 6 months with multiple falls- typically uses rollator or cane. Additionally experiences persistent, generalized worrying patterns with associated task avoidance. After starting mirtazapine last week she is able to fall asleep relatively quickly (previously delayed). Wakes up for 4AM medications, able to fall back asleep quickly. Sometimes will take 1-2 short naps during the day. Occasional dream enactment- walking, punching her pillow. She describes recent symptoms of depression after the end of a romantic relationship- low mood, anhedonia, social withdrawal, apathy. Appetite unchanged, however feels disinclined to eat 2/2 nausea from Sinemet- does drink Ensures throughout the day. Fleeting moments of SI, denies persistence, denies progression to means/methods consideration. Strong protective factors in her supportive family. No history of NSSI/SA. Attending PT classes several times a week, which she enjoys. Has been limiting her driving, however has friends/family who help her get around. Has increasingly noticed movements in her peripheral vision, sometimes appears like insects or mice. Relatively frequent visual illusions. Non-distressing, insight intact. Denies complex, formed VH, denies AH. Some forgetfulness. Denied increase in seeking pleasurable activities- no increase/change in substance use, sexual habits, gambling. Does Patient Have Any Suicidal Ideations: denied at time of encounter STRESSORS: recent break up COLLATERAL INFORMATION: History obtained from chart review and direct patient evaluation PSYCHIATRIC REVIEW OF SYMPTOMS: Negative aside from as above in HPI MEDICAL REVIEW OF SYSTEMS: Pertinent Positives: gait instability The remainder was reviewed and unremarkable. PSYCHIATRIC HISTORY: Diagnoses: MDD, unspecified anxiety Current Psychiatrist: None Current Therapist: None Psychiatric Hospitalization(s): None History of Suicide Attempts: None Previous Psychiatric Medication Trials: Amitriptyline 10mg Buspirone 10mg TID Escitalopram 10mg Gabapentin Lorazepam 0.5mg Trazodone 50mg Current Outpatient Psychiatric Medications: Mirtazapine 7.5mg Sertraline 150mg SUBSTANCE ABUSE HISTORY: Denies significant use/misuse of EtOH, nicotine, illicit substances SOCIAL HISTORY: Two previous marriages, described as unhealthy. Two adult daughters. 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 FAMILY PSYCHIATRIC HISTORY: Several deaths by suicide on both maternal and paternal sides of her family FAMILY HISTORY Problem Relation Age of Onset Hypertension Mother Arthritis Mother Heart disease Mother Diabetes Father adult onset Emphysema Father Cancer Father lung Psychiatry Maternal Grandmother Ischemic Heart Disease Maternal Grandfather Diabetes Paternal Grandmother Asthma Daughter Allergic Rhinitis Daughter Colon Cancer No Family History PAST MEDICAL HISTORY Diagnosis Date Diverticulosis of [...] NONOBSTETRIC 09/1982 Dilation & curettage EGD W/O [facility] SPEC VARICIES INJ 11/29/2023 PAST SURGICAL HISTORY OF 02/1996 EMB TONSILLECTOMY & ADENOIDECTOMY T/A (under age 13 years) Current Outpatient Medications Medication Sig hydrOXYzine HCl (ATARAX) 25 mg tablet Take 1 tablet by mouth three times a day as needed. mirtazapine (REMERON) 7.5 mg tablet Take 1 tablet by mouth daily at bedtime. pravastatin (PRAVACHOL) 20 mg tablet Take 1 tablet by mouth daily at bedtime. carbidopa-levodopa (SINEMET 25-100) 25-100 mg per tablet Take 1 tab at 4AM, 1 tab at 7AM, 2 tabs at 11AM, 2 tabs at 3PM and 1.5 tabs at 7PM. carbidopa-levodopa CR (SINEMET CR) 50-200 mg per tablet TAKE 1 TABLET BY MOUTH in Morning and before bedtime as instructed. midodrine (PROAMATINE) 10 mg tablet Take 1 tablet by mouth every 8 hours. ondansetron orally disintegrating (ZOFRAN ODT) 4 mg disintegrating tablet Take 1 tablet by mouth every 8 hours as needed for nausea/vomiting. pantoprazole DR (PROTONIX) 40 mg tablet Take [...] daily. Take on empty stomach. For Thyroid Olopatadine (PATADAY ONCE DAILY RELIEF) 0.2 % drop Use 1 Drop in both eyes once daily. (Patient not taking: Reported on 11/04/2024) docusate sodium (COLACE) 100 mg capsule Take 1 capsule by mouth two times a day. LORazepam (ATIVAN) 0.5 mg Take 0.5 mg by mouth as needed. Cholecalciferol, Vitamin D3, 50 mcg (2,000 unit) cap Take 2,000 Units by mouth once daily. No current facility-administered medications for this visit. ALLERGIES Allergen Reactions Sulfa (Sulfonamide * Hives Objective VITAL SIGNS: There were no vitals filed for this visit. PHYSICAL EXAMINATION: As appreciated via video- Persistent movements BUE, trunk MENTAL STATUS EXAMINATION: Appearance: Elderly F, appears stated age Behaviour: Easily engaged, pleasant Psychomotor Activity: moderate PMA (persistent BUE, trunk movements) Speech: Spontaneous, fluent Mood: 'pretty good' Affect: bright, euthymic Thought Processes: linear Associations: non-loosened Thought Content: no delusions or obsessions elicited Suicidal/Homicidal Ideation: denied PDW/SI/HI Perceptions/Experiences: did not appear internally preoccupied Insight: fair Judgement: fair Cognitive Exam: Oriented to self, location, date Immediate recall 12/21, delayed recall 12/21 MJ accurate forward, backward Rapid, accurate calculation 7 quarters = $1.75 17 F words in 60 sec 18 animals in 60 sec Center abstraction LABS : Lab Results Component Value Date/Time WBC 5.21 07/15/2024 05:15 AM WBC 4.94 05/26/2019 01:02 PM RBC 3.66 (L) 07/15/2024 05:15 AM RBC 3.70 (L) 05/26/2019 01:02 PM HCT 33.8 (L) 07/15/2024 05:15 AM HCT 34.3 (L) 05/26/2019 01:02 PM MCV 92.3 07/15/2024 05:15 AM MCV 92.7 05/26/2019 01:02 PM MCH 31.1 07/15/2024 05:15 AM MCH 31.4 05/26/2019 01:02 PM MCHC 33.7 07/15/2024 05:15 AM MCHC 33.8 05/26/2019 01:02 PM RDWCV 11.8 07/15/2024 05:15 AM RDWCV 12.5 05/26/2019 01:02 PM PLT 192 07/15/2024 05:15 AM PLT 246 05/26/2019 01:02 PM NEUTP 59.0 07/14/2024 02:32 PM NEUTP 32.4 (L) 10/09/2013 09:20 AM LYMPHP 30.9 07/14/2024 02:32 PM LYMPHP 54.2 (H) 10/09/2013 09:20 AM MONOP 8.2 07/14/2024 02:32 PM MONOP 8.6 10/09/2013 09:20 AM EODINP 1.1 07/14/2024 02:32 PM EODINP 4.3 10/09/2013 09:20 AM BASOP 0.4 07/14/2024 02:32 PM BASOP 0.5 10/09/2013 09:20 AM ABSNEUT 3.15 07/14/2024 02:32 PM ABSNEUT 1.20 (L) 10/09/2013 09:20 AM ABSMONO 0.44 07/14/2024 02:32 PM ABSMONO 0.32 10/09/2013 09:20 AM ABSEOSIN 0.06 07/14/2024 02:32 PM ABSEOSIN 0.16 10/09/2013 09:20 AM ABSBASO <0.03 07/14/2024 02:32 PM ABSBASO 0.02 10/09/2013 09:20 AM GLUC 101 (H) 08/20/2024 08:20 AM GLUC 86 12/15/2020 10:57 AM NA 140 08/20/2024 08:20 AM NA 139 12/15/2020 10:57 AM K 3.8 08/20/2024 08:20 AM K 4.7 12/15/2020 10:57 AM CHLOR 102 08/20/2024 08:20 AM CHLOR 103 12/15/2020 10:57 AM BUN 21 08/20/2024 08:20 AM BUN 27 (H) 12/15/2020 10:57 AM CREAT 0.76 08/20/2024 08:20 AM CREAT 0.69 12/15/2020 10:57 AM MG 2.1 07/14/2024 02:32 PM TSH 1.710 07/14/2024 02:32 PM TSH 1.000 06/19/2021 09:02 AM CO2 27 08/20/2024 08:20 AM CO2 27 12/15/2020 10:57 AM TPROT 6.9 07/14/2024 02:32 PM TPROT 7.1 03/29/2020 08:55 AM ALB 4.3 07/14/2024 02:32 PM ALB 4.6 03/29/2020 08:55 AM CA 9.3 08/20/2024 08:20 AM CA 9.7 12/15/2020 10:57 AM AST 11 (L) 07/14/2024 02:32 PM AST 26 03/29/2020 08:55 AM ALT <5 (L) 07/14/2024 02:32 PM ALT 15 03/29/2020 08:55 AM ALKPHOS 82 07/14/2024 02:32 PM ALKPHOS 73 03/29/2020 08:55 AM TBILI 0.6 07/14/2024 02:32 PM TBILI 0.7 03/29/2020 08:55 AM Urinalysis (past 7 days) No results for input(s): UPH, SPGR, UGLUC, UBILI, UKET, UHB, UPROT, UROBILINOGEN, NITRITES, UWBC in the last 168 hours. Urine Toxicology & Blood Alcohol No results found for: UQAMPH, UBARB, UBARB2, UBENZ, UQBUPRE, UQNORBUP, UCOC2, UTHC, UQCANN, UOPI, UQOXYC, UPCP, UETOH, ALCO IMAGING : MRI brain 06/16/24- some temporal atrophy R>L Acute Change: There is no evidence of [...] intensity and morphology. Ventricles: Normal caliber and morphology Questionnaires: PHQ-9: 20 EVAN-7: 18 ASSESSMENT : This is a 79 y/o F w/ PMH PD, migraines, hypothyroidism, HTN and PPH MDD, unspecified anxiety who presents for initial evaluation. Patient today describes moderate depressive symptoms, slowly improving after recent end of romantic relationship. She has had chronic, intermittent and short-lived suicidal thoughts which are ego-dystonic and fleeting in nature. No history of self-harm, strong protective factors in her family. Throughout our encounter she was spontaneously, consistently and specifically future-oriented. Her description of anxious symptoms appears suggestive of both EVAN features and a sense of panic emerging as her Sinemet wears off. The latter is poorly responsive to SSRI therapy, however we can consider alternatives in the future such as very low dose benzodiazepines or (if tolerated) propranolol, though typically this responds best to adjustments in PD medications to limit off times. For now, we agreed to trial PRN hydroxyzine given preferential profile in someone with PD and associated gait instabilities. She has begun to experience visual illusions and peripheral ?hallucinations, will continue to monitor, no indication for targeted medication at this time. As she was recently started on mirtazapine, will f/u and assess response. DIAGNOSIS: 1. MDD, recurrent, moderate 2. EVAN 3. Medication-induced anxiety disorder, onset during withdrawal (Sinemet) Global Assessment of Functionin-51 Moderate symptoms or moderate difficulty in social, occupational or school functioning. Clinical Global Impression--Severity of illness Scale: 4 = Moderately ill (overt symptoms, noticeable but modest functional impairment, may warrant meds) PLAN : #Safety -no acute safety concerns; patient is appropriate to f/u in outpt setting #Management Start Hydroxyzine 25mg TID PRN EKG reviewed, Qtc wnl Continue mirtazapine 7.5mg qHS Continue sertraline 150mg daily Follow up: 6-8 weeks My final impression and recommendations will be communicated back to the requesting physician by way of the shared medical record. SIGNATURE: Juan Carlos Ordoñez MD PATIENT NAME: Lou Oliver DATE: November 09, 2024 TIME: 6:36 PM I spent a total of 85 minutes on the date of the service which included preparing to see the patient, [id number] patient care, completing clinical documentation, obtaining and/or reviewing separately obtained history, and performing a medically appropriate examination Juan Carlos Ordoñez MD [facility] 11-09-2024 History and physical note NEW - PSYCHIATRY INITIAL EVALUATION SERVICE DATE: November 09, 2024 Visit Type: Virtual Visit utilizing two-way audio and video for at least a portion of the visit. Consent for virtual visit obtained verbally. Confidentiality limitations with virtual visits reviewed with the patient and guardian, if present, who have accepted the risk verbally prior to proceeding with encounter. I have communicated my name and active licensure. The patient's identity and physical location were verified at the time of this visit. Either the patient or their legal auto service representative has been informed of the risks and benefits of -- and alternatives to -- treatment through a remote evaluation and consents to proceed with the evaluation remotely. CONSULTING SERVICE : Psychiatry, requested by Dr. Sayra Mabry REASON FOR CONSULTATION: anxiety Subjective IDENTIFYING INFO: This is a 79 y/o F w/ PMH PD, migraines, hypothyroidism, HTN and PPH MDD, unspecified anxiety who presents for initial evaluation. HISTORY OF PRESENT ILLNESS : Patient seen virtually for initial evaluation. She reports a history of both depression and anxiety. She had been seeing a therapist, however they relocated and she has not sought someone new. She has never seen a psychiatrist before, however has trialed various psychotropics from different providers. She feels that her anxiety has been 'creeping up' recently. It is particularly experienced as her Sinemet is wearing off- feels panicked, helpless and scared. She can sometimes calm herself down, otherwise calls her nearby niece who can visit which is helpful. This is in the setting of worsened gait issues over the last 6 months with multiple falls- typically uses rollator or cane. Additionally experiences persistent, generalized worrying patterns with associated task avoidance. After starting mirtazapine last week she is able to fall asleep relatively quickly (previously delayed). Wakes up for 4AM medications, able to fall back asleep quickly. Sometimes will take 1-2 short naps during the day. Occasional dream enactment- walking, punching her pillow. She describes recent symptoms of depression after the end of a romantic relationship- low mood, anhedonia, social withdrawal, apathy. Appetite unchanged, however feels disinclined to eat 2/2 nausea from Sinemet- does drink Ensures throughout the day. Fleeting moments of SI, denies persistence, denies progression to means/methods consideration. Strong protective factors in her supportive family. No history of NSSI/SA. Attending PT classes several times a week, which she enjoys. Has been limiting her driving, however has friends/family who help her get around. Has increasingly noticed movements in her peripheral vision, sometimes appears like insects or mice. Relatively frequent visual illusions. Non-distressing, insight intact. Denies complex, formed VH, denies AH. Some forgetfulness. Denied increase in seeking pleasurable activities- no increase/change in substance use, sexual habits, gambling. Does Patient Have Any Suicidal Ideations: denied at time of encounter STRESSORS: recent break up COLLATERAL INFORMATION: History obtained from chart review and direct patient evaluation PSYCHIATRIC REVIEW OF SYMPTOMS: Negative aside from as above in HPI MEDICAL REVIEW OF SYSTEMS: Pertinent Positives: gait instability The remainder was reviewed and unremarkable. PSYCHIATRIC HISTORY: Diagnoses: MDD, unspecified anxiety Current Psychiatrist: None Current Therapist: None Psychiatric Hospitalization(s): None History of Suicide Attempts: None Previous Psychiatric Medication Trials: Amitriptyline 10mg Buspirone 10mg TID Escitalopram 10mg Gabapentin Lorazepam 0.5mg Trazodone 50mg Current Outpatient Psychiatric Medications: Mirtazapine 7.5mg Sertraline 150mg SUBSTANCE ABUSE HISTORY: Denies significant use/misuse of EtOH, nicotine, illicit substances SOCIAL HISTORY: Two previous marriages, described as unhealthy. Two adult daughters. 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 FAMILY PSYCHIATRIC HISTORY: Several deaths by suicide on both maternal and paternal sides of her family FAMILY HISTORY Problem Relation Age of Onset Hypertension Mother Arthritis Mother Heart disease Mother Diabetes Father adult onset Emphysema Father Cancer Father lung Psychiatry Maternal Grandmother Ischemic Heart Disease Maternal Grandfather Diabetes Paternal Grandmother Asthma Daughter Allergic Rhinitis Daughter Colon Cancer No Family History PAST MEDICAL HISTORY Diagnosis Date Diverticulosis of [...] NONOBSTETRIC 09/1982 Dilation & curettage EGD W/O [facility] SPEC VARICIES INJ 11/29/2023 PAST SURGICAL HISTORY OF 02/1996 EMB TONSILLECTOMY & ADENOIDECTOMY <AGE 13 T/A (under age 13 years) Current Outpatient Medications Medication Sig hydrOXYzine HCl (ATARAX) 25 mg tablet Take 1 tablet by mouth three times a day as needed. mirtazapine (REMERON) 7.5 mg tablet Take 1 tablet by mouth daily at bedtime. pravastatin (PRAVACHOL) 20 mg tablet Take 1 tablet by mouth daily at bedtime. carbidopa-levodopa (SINEMET 25-100) 25-100 mg per tablet Take 1 tab at 4AM, 1 tab at 7AM, 2 tabs at 11AM, 2 tabs at 3PM and 1.5 tabs at 7PM. carbidopa-levodopa CR (SINEMET CR) 50-200 mg per tablet TAKE 1 TABLET BY MOUTH in Morning and before bedtime as instructed. midodrine (PROAMATINE) 10 mg tablet Take 1 tablet by mouth every 8 hours. ondansetron orally disintegrating (ZOFRAN ODT) 4 mg disintegrating tablet Take 1 tablet by mouth every 8 hours as needed for nausea/vomiting. pantoprazole DR (PROTONIX) 40 mg tablet Take [...] daily. Take on empty stomach. For Thyroid Olopatadine (PATADAY ONCE DAILY RELIEF) 0.2 % drop Use 1 Drop in both eyes once daily. (Patient not taking: Reported on 11/04/2024) docusate sodium (COLACE) 100 mg capsule Take 1 capsule by mouth two times a day. LORazepam (ATIVAN) 0.5 mg Take 0.5 mg by mouth as needed. Cholecalciferol, Vitamin D3, 50 mcg (2,000 unit) cap Take 2,000 Units by mouth once daily. No current facility-administered medications for this visit. ALLERGIES Allergen Reactions Sulfa (Sulfonamide * Hives Objective VITAL SIGNS: There were no vitals filed for this visit. PHYSICAL EXAMINATION: As appreciated via video- Persistent movements BUE, trunk MENTAL STATUS EXAMINATION: Appearance: Elderly F, appears stated age Behaviour: Easily engaged, pleasant Psychomotor Activity: moderate PMA (persistent BUE, trunk movements) Speech: Spontaneous, fluent Mood: 'pretty good' Affect: bright, euthymic Thought Processes: linear Associations: non-loosened Thought Content: no delusions or obsessions elicited Suicidal/Homicidal Ideation: denied PDW/SI/HI Perceptions/Experiences: did not appear internally preoccupied Insight: fair Judgement: fair Cognitive Exam: Oriented to self, location, date Immediate recall 12/21, delayed recall 12/21 MJ accurate forward, backward Rapid, accurate calculation 7 quarters = $1.75 17 F words in 60 sec 18 animals in 60 sec Center abstraction LABS : Lab Results Component Value Date/Time WBC 5.21 07/15/2024 05:15 AM WBC 4.94 05/26/2019 01:02 PM RBC 3.66 (L) 07/15/2024 05:15 AM RBC 3.70 (L) 05/26/2019 01:02 PM HCT 33.8 (L) 07/15/2024 05:15 AM HCT 34.3 (L) 05/26/2019 01:02 PM MCV 92.3 07/15/2024 05:15 AM MCV 92.7 05/26/2019 01:02 PM MCH 31.1 07/15/2024 05:15 AM MCH 31.4 05/26/2019 01:02 PM MCHC 33.7 07/15/2024 05:15 AM MCHC 33.8 05/26/2019 01:02 PM RDWCV 11.8 07/15/2024 05:15 AM RDWCV 12.5 05/26/2019 01:02 PM PLT 192 07/15/2024 05:15 AM PLT 246 05/26/2019 01:02 PM NEUTP 59.0 07/14/2024 02:32 PM NEUTP 32.4 (L) 10/09/2013 09:20 AM LYMPHP 30.9 07/14/2024 02:32 PM LYMPHP 54.2 (H) 10/09/2013 09:20 AM MONOP 8.2 07/14/2024 02:32 PM MONOP 8.6 10/09/2013 09:20 AM EODINP 1.1 07/14/2024 02:32 PM EODINP 4.3 10/09/2013 09:20 AM BASOP 0.4 07/14/2024 02:32 PM BASOP 0.5 10/09/2013 09:20 AM ABSNEUT 3.15 07/14/2024 02:32 PM ABSNEUT 1.20 (L) 10/09/2013 09:20 AM ABSMONO 0.44 07/14/2024 02:32 PM ABSMONO 0.32 10/09/2013 09:20 AM ABSEOSIN 0.06 07/14/2024 02:32 PM ABSEOSIN 0.16 10/09/2013 09:20 AM ABSBASO <0.03 07/14/2024 02:32 PM ABSBASO 0.02 10/09/2013 09:20 AM GLUC 101 (H) 08/20/2024 08:20 AM GLUC 86 12/15/2020 10:57 AM NA 140 08/20/2024 08:20 AM NA 139 12/15/2020 10:57 AM K 3.8 08/20/2024 08:20 AM K 4.7 12/15/2020 10:57 AM CHLOR 102 08/20/2024 08:20 AM CHLOR 103 12/15/2020 10:57 AM BUN 21 08/20/2024 08:20 AM BUN 27 (H) 12/15/2020 10:57 AM CREAT 0.76 08/20/2024 08:20 AM CREAT 0.69 12/15/2020 10:57 AM MG 2.1 07/14/2024 02:32 PM TSH 1.710 07/14/2024 02:32 PM TSH 1.000 06/19/2021 09:02 AM CO2 27 08/20/2024 08:20 AM CO2 27 12/15/2020 10:57 AM TPROT 6.9 07/14/2024 02:32 PM TPROT 7.1 03/29/2020 08:55 AM ALB 4.3 07/14/2024 02:32 PM ALB 4.6 03/29/2020 08:55 AM CA 9.3 08/20/2024 08:20 AM CA 9.7 12/15/2020 10:57 AM AST 11 (L) 07/14/2024 02:32 PM AST 26 03/29/2020 08:55 AM ALT <5 (L) 07/14/2024 02:32 PM ALT 15 03/29/2020 08:55 AM ALKPHOS 82 07/14/2024 02:32 PM ALKPHOS 73 03/29/2020 08:55 AM TBILI 0.6 07/14/2024 02:32 PM TBILI 0.7 03/29/2020 08:55 AM Urinalysis (past 7 days) No results for input(s): UPH, SPGR, UGLUC, UBILI, UKET, UHB, UPROT, UROBILINOGEN, NITRITES, UWBC in the last 168 hours. Urine Toxicology & Blood Alcohol No results found for: UQAMPH, UBARB, UBARB2, UBENZ, UQBUPRE, UQNORBUP, UCOC2, UTHC, UQCANN, UOPI, UQOXYC, UPCP, UETOH, ALCO IMAGING : MRI brain 06/16/24- some temporal atrophy R>L Acute Change: There is no evidence of [...] intensity and morphology. Ventricles: Normal caliber and morphology Questionnaires: PHQ-9: 20 EVAN-7: 18 ASSESSMENT : This is a 79 y/o F w/ PMH PD, migraines, hypothyroidism, HTN and PPH MDD, unspecified anxiety who presents for initial evaluation. Patient today describes moderate depressive symptoms, slowly improving after recent end of romantic relationship. She has had chronic, intermittent and short-lived suicidal thoughts which are ego-dystonic and fleeting in nature. No history of self-harm, strong protective factors in her family. Throughout our encounter she was spontaneously, consistently and specifically future-oriented. Her description of anxious symptoms appears suggestive of both EVAN features and a sense of panic emerging as her Sinemet wears off. The latter is poorly responsive to SSRI therapy, however we can consider alternatives in the future such as very low dose benzodiazepines or (if tolerated) propranolol, though typically this responds best to adjustments in PD medications to limit off times. For now, we agreed to trial PRN hydroxyzine given preferential profile in someone with PD and associated gait instabilities. She has begun to experience visual illusions and peripheral ?hallucinations, will continue to monitor, no indication for targeted medication at this time. As she was recently started on mirtazapine, will f/u and assess response. DIAGNOSIS: 1. MDD, recurrent, moderate 2. EVAN 3. Medication-induced anxiety disorder, onset during withdrawal (Sinemet) Global Assessment of Functionin-51 Moderate symptoms or moderate difficulty in social, occupational or school functioning. Clinical Global Impression--Severity of illness Scale: 4 = Moderately ill (overt symptoms, noticeable but modest functional impairment, may warrant meds) PLAN : #Safety -no acute safety concerns; patient is appropriate to f/u in outpt setting #Management Start Hydroxyzine 25mg TID PRN EKG reviewed, Qtc wnl Continue mirtazapine 7.5mg qHS Continue sertraline 150mg daily Follow up: 6-8 weeks My final impression and recommendations will be communicated back to the requesting physician by way of the shared medical record. SIGNATURE: Juan Carlos Ordoñez MD PATIENT NAME: Lou Oliver DATE: November 09, 2024 TIME: 6:36 PM I spent a total of 85 minutes on the date of the service which included preparing to see the patient, [id number] patient care, completing clinical documentation, obtaining and/or reviewing separately obtained history, and performing a medically appropriate examination Juan Carlos Ordoñez MD documented in this encounter [facility] 11-05-2024 Instructions Sayra Mabry MD - 11/05/2024 10:38 AM EST It was a pleasure to see you today. We addressed the following diagnoses: Parkinson's disease with dyskinesia, unspecified whether manifestations fluctuate (hcc) Anxiety (primary encounter diagnosis) My recommendations are as follows: 11/05/2024 Visit: No change to Sinemet (carbidopa-levodopa) For the blood pressure, strive for 40-60 ounces of water per day. Gatorade is helpful too. No change to midodrine or fludrocortisone Continue with Zoloft, no change to it Add mirtazapine at bedtime for anxiety, sleep, and appetite Consults to psychiatry and psychology Appointment scheduling: Psychology: [phone], choose option 2: Psychiatry: General NI scheduling (operates 24 hrs) [phone] option 3 Movement Disorders Medication Schedule: Medications 7 11 3 7 11 4A Sinemet IR 25/100 (yellow) 1 2 2 1.5 1 Sinemet CR 50/200 (blue) 1 1 fludrocortisone midodrine mirtazepine 7.5 mg 1 zoloft Return at or around: 02/03/25 If there are any concerns before your next visit, please call or you can send a message through [employer]. You can also now schedule and select appointments through [employer]. Sayra Mabry MD documented in this encounter [facility] 11-05-2024 Note HNO ID: [id number] Author: SAYRA MABRY MD Service: ? Author Type: Physician Type: Progress Notes Filed: 11/05/2024 10:50 Note Text: [facility] - FOLLOW UP EVALUATION - VIRTUAL VISIT Primary Neurologist: Sayra Mabry MD Primary EDWIN: Lucía Rizzo MD [address] [place] [address] Dear Lucía Rizzo MD: I had the pleasure of seeing Ms. Oliver for follow-up today. As you know she is a 79 year old ambidextrous female with a history of PD since 2019. She is seen with a daughter. We had a visit using: [employer] I have communicated my name and active licensure. The patient's identity and physical location were verified at the time of this visit. Either the patient or their legal auto service representative has been informed of the risks and benefits of -- and alternatives to -- treatment through a remote evaluation and consents to proceed with the evaluation remotely. Subjective During her previous visit the following plan was made: Previous plan-10/20/2024 Visit: For Parkinson's - medication changes below. Continue exercise For blood pressure - keep taking the midodrine and keep up with the fluids and salt. Do not take midodrine before bed or before lying flat for a nap Interval History She is a 'hot mess.' Feels anxious and depressed all the time. Does have sources of stress right now. Relationship change and heartbreak. Nausea related to Sinemet before but now is more frequent. Can wake up and talk herself into the nausea and anxiety. Had a great daily routine with social and exercise classes but this is messed up. Motivation is decreased. Driving less. Friends and family will transport her but when she feels bad she won't call them to ask. Changes to Sinemet from last visit have helped stability and balance. Daughter feels current problems are mostly mood related. Panic attack this morning. Has them several times per week. Takes Ativan sometimes. Makes her sleep and reset. Only takes it if family insists. Sleeps [place] to 4A. Can take accidental naps if reading during the day. Attributes to anxiety. Up to bathroom and 4 and can't go back to sleep. Had a therapist for a year but she moved away and didn't get a new one. This was about a year ago. Movement Disorders Medications Schedule - as of the start of the visit: Medications 7 11 3 7 11 4A Sinemet IR 25/100 (yellow) 1 2 2 1.5 1 Sinemet CR 50/200 (blue) 1 1 Parkinson's Motor Complications Medication benefit onset: 45 minutes Medication duration: 2 hours Wearing off: yes Dyskinesia: yes ALLERGIES Allergen Reactions Sulfa (Sulfonamide * Hives Current Outpatient Medications Medication Sig pravastatin (PRAVACHOL) 20 mg tablet Take 1 tablet by mouth daily at bedtime. carbidopa-levodopa (SINEMET 25-100) 25-100 mg per tablet Take 1 tab at 4AM, 1 tab at 7AM, 2 tabs at 11AM, 2 tabs at 3PM and 1.5 tabs at 7PM. carbidopa-levodopa CR (SINEMET CR) 50-200 mg per tablet TAKE 1 TABLET BY MOUTH in Morning and before bedtime as instructed. midodrine (PROAMATINE) 10 mg tablet Take 1 tablet by mouth every 8 hours. ondansetron orally disintegrating (ZOFRAN ODT) 4 mg disintegrating tablet Take 1 tablet by mouth every 8 hours as needed for nausea/vomiting. pantoprazole DR (PROTONIX) 40 mg tablet Take [...] daily. Take on empty stomach. For Thyroid docusate sodium (COLACE) 100 mg capsule Take 1 capsule by mouth two times a day. LORazepam (ATIVAN) 0.5 mg Take 0.5 mg by mouth as needed. Cholecalciferol, Vitamin D3, 50 mcg (2,000 unit) cap Take 2,000 Units by mouth once daily. Olopatadine (PATADAY ONCE DAILY RELIEF) 0.2 % drop Use 1 Drop in both eyes once daily. (Patient not taking: Reported on 11/04/2024) No current facility-administered medications for this visit. Questionnaires: In addition, the following areas that [...] Number of falls in the Last Month: 3 Gait freezing: Yes (mild) Autonomic/Pain Lightheadeness on standing: Yes (mild) BP better but still low. SBP 90-114. sometimes (more content not included)... [facility] 11-05-2024 History of Present illness Narrative [facility] - FOLLOW UP EVALUATION - VIRTUAL VISIT Primary Neurologist: Sayra Mabry MD Primary EDWIN: Lucía Rizzo MD [address] [facility] [address] Dear Lucía Rizzo MD: I had the pleasure of seeing Ms. Oliver for follow-up today. As you know she is a 79 year old ambidextrous female with a history of PD since 2019. She is seen with a daughter. We had a visit using: [employer] I have communicated my name and active licensure. The patient's identity and physical location were verified at the time of this visit. Either the patient or their legal auto service representative has been informed of the risks and benefits of -- and alternatives to -- treatment through a remote evaluation and consents to proceed with the evaluation remotely. Subjective During her previous visit the following plan was made: Previous plan-10/20/2024 Visit: For Parkinson's - medication changes below. Continue exercise For blood pressure - keep taking the midodrine and keep up with the fluids and salt. Do not take midodrine before bed or before lying flat for a nap Interval History She is a 'hot mess.' Feels anxious and depressed all the time. Does have sources of stress right now. Relationship change and heartbreak. Nausea related to Sinemet before but now is more frequent. Can wake up and talk herself into the nausea and anxiety. Had a great daily routine with social and exercise classes but this is messed up. Motivation is decreased. Driving less. Friends and family will transport her but when she feels bad she won't call them to ask. Changes to Sinemet from last visit have helped stability and balance. Daughter feels current problems are mostly mood related. Panic attack this morning. Has them several times per week. Takes Ativan sometimes. Makes her sleep and reset. Only takes it if family insists. Sleeps [place] to 4A. Can take accidental naps if reading during the day. Attributes to anxiety. Up to bathroom and 4 and can't go back to sleep. Had a therapist for a year but she moved away and didn't get a new one. This was about a year ago. Movement Disorders Medications Schedule - as of the start of the visit: Medications 7 11 3 7 11 4A Sinemet IR 25/100 (yellow) 1 2 2 1.5 1 Sinemet CR 50/200 (blue) 1 1 Parkinson's Motor Complications Medication benefit onset: 45 minutes Medication duration: 2 hours Wearing off: yes Dyskinesia: yes ALLERGIES Allergen Reactions Sulfa (Sulfonamide * Hives Current Outpatient Medications Medication Sig pravastatin (PRAVACHOL) 20 mg tablet Take 1 tablet by mouth daily at bedtime. carbidopa-levodopa (SINEMET 25-100) 25-100 mg per tablet Take 1 tab at 4AM, 1 tab at 7AM, 2 tabs at 11AM, 2 tabs at 3PM and 1.5 tabs at 7PM. carbidopa-levodopa CR (SINEMET CR) 50-200 mg per tablet TAKE 1 TABLET BY MOUTH in Morning and before bedtime as instructed. midodrine (PROAMATINE) 10 mg tablet Take 1 tablet by mouth every 8 hours. ondansetron orally disintegrating (ZOFRAN ODT) 4 mg disintegrating tablet Take 1 tablet by mouth every 8 hours as needed for nausea/vomiting. pantoprazole DR (PROTONIX) 40 mg tablet Take [...] daily. Take on empty stomach. For Thyroid docusate sodium (COLACE) 100 mg capsule Take 1 capsule by mouth two times a day. LORazepam (ATIVAN) 0.5 mg Take 0.5 mg by mouth as needed. Cholecalciferol, Vitamin D3, 50 mcg (2,000 unit) cap Take 2,000 Units by mouth once daily. Olopatadine (PATADAY ONCE DAILY RELIEF) 0.2 % drop Use 1 Drop in both eyes once daily. (Patient not taking: Reported on 11/04/2024) No current facility-administered medications for this visit. Questionnaires: In addition, the following areas that [...] Number of falls in the Last Month: 3 Gait freezing: Yes (mild) Autonomic/Pain Lightheadeness on standing: Yes (mild) BP better but still low. SBP 90-114. sometimes 82. little more postural lightheadedness than before. not as good about the water Urinary problems: Yes (mild) Constipation problems: Yes (mild) Pain and other sensations: Yes (mild) Speech/Swallowing Speech problems: Yes (mild) Drooling: Yes (mild) Chewing and swallowing problems: Yes (slight) Sleep/Fatigue Sleep problems: Yes (mild) Daytime sleepiness: Yes (mild) Fatigue: Yes (mild) Objective General: Awake, alert, interactive, no acute distress, good nutritional status, normal development, well-kept Neurological Exam Mental Status Awake and alert. Language is fluent with no aphasia. Motor No visible tremor. Possibly subtle dyskinesia. Assessment and Plan: Assessment Ms. Oliver is a ambidextrous 79 year old female with PD. Patient of Dr. Connolly referred by PCP for second opinion. Sinemet changes at last visit have addressed wearing off. She is now experiencing anxiety and depression that are felt to be consistent rather than OFF symptoms. This is keeping her from her social and exercise activities. She isn't sleeping or eating well. She has lost weight. More postural lightheadedness lately likely since not eating or drinking like before. Increase fluids and continue Florinef and midodrine. The following are the current problems noted and addressed during this visit: Parkinson's disease with dyskinesia, unspecified whether manifestations fluctuate (hcc) Anxiety (primary encounter diagnosis) Plan 11/05/2024 Visit: No change to Sinemet (carbidopa-levodopa) For the blood pressure, strive for 40-60 ounces of water per day. Gatorade is helpful too. No change to midodrine or fludrocortisone Continue with Zoloft, no change to it Add mirtazapine at bedtime for anxiety, sleep, and appetite Consults to psychiatry and psychology Appointment scheduling: Psychology: [phone], choose option 2: Psychiatry: General NI scheduling (operates 24 hrs) [phone] option 3 Interested in clinical research? Not discussed Updated Movement Disorder Medication Schedule: Medications 7 11 3 7 11 4A Sinemet IR 25/100 (yellow) 1 2 2 1.5 1 Sinemet CR 50/200 (blue) 1 1 fludrocortisone midodrine mirtazepine 7.5 mg 1 zoloft Level of service : 90094 ( 30-39 min). Time spent 36 min on the day of service, which included preparing to see the patient, [id number] patient care, completing clinical documentation, counseling and educating the patient/family/caregiver, and ordering medications, tests, or procedures. Thank you for allowing me to be part of the clinical care of this patient! I look forward to continued participation in the patient s care with you. Please do not hesitate to call with any questions. Sincerely, Sayra Mabry MD documented in this encounter [facility] 11-02-2024 Note HNO ID: [id number] Author: LOI SHERWOOD, [employer] [facility]-CORPORATE SECURITY MANAGER Service: ? Author Type: Speech Language Pathologist Type: Progress Notes Filed: 11/02/2024 17:05 Note Text: Episode Visit Count: 3 Therapist That Will Accept/Oversee The Plan Of Care: Loi Sherwood Start of Care Date: 09/28/24 Onset Date: 10/21/23 Plan of Care Certification Date: 09/28/24 Next Certification Due Date: 12/21/24 [facility]ER[facility]Y SPEECH THERAPY DISCONTINUANCE OF CARE PLAN OF CARE UPDATE: Impression: Communication deficits identified: Voice disorder Swallow Deficits Identified / Suspected: Oropharyngeal dysphagia Progress Toward Goals: Progressing as expected Functional gains: Improved ability to manage oral intake Goals for Episode of Care Updated: 11/02/2024 Goals for Episode of Care: created on 09/28/2024 through 12/21/24 SWALLOWING GOALS Demonstrate knowledge and use of compensatory swallowing strategies in order to reduce signs/symptoms of possible aspiration with a Soft and Bite-Sized IDDSI Level 6 and Thin Liquids IDDSI Level 0 within 100% of trials. 11/02/24 GOAL MET All goals to target the patient's overall ability to safely consume the highest appropriate diet level VOICE/LSVT GOALS Phonate with a LOUD voice > 70 dB SPL for medical and social needs during various speech tasks at sentence levels 80% of the time. 11/02/24 GOAL NOT MET Pt requested D/C today to seek out therapy closer to home. All goals to target the patient's overall ability to facilitate functional communication of ADL medical / social needs. RECOMMENDATION: Discontinue skilled speech therapy services due to wanting to transfer therapy services closer to home. Therapy Program Summary: Patient was seen 3 times for 6 weeks and treatment included: dysphagia reduction and increasing vocal intensity. Recommendations: Continue with previously developed home program and functional maintenance strategies and seek out therapy for voice and swallowing closer to home per pt.'s desire. CORPORATE SECURITY MANAGER Recommendations: Discontinue Speech Therapy (Continue OP therapy closer to home per pt's desire) Planned Interventions, Frequency, and Duration: SUBJECTIVE: Lou reports that swallowing is better as she follows swallowing guidelines given last session. Pt's daughter stated at the end of the session that she enjoyed hearing her mom talk in a louder, stronger voice when she was in the lobby today OBJECTIVE MEASURES WITH LEVEL OF FUNCTION: Speech/Voice/Language Paragraph Reading (dB SPL): (sentence level; short [id number]-20-58 dB range with occasional cues) Conversation (dB SPL): (min cues to increase intent at word/phrase level, 69-72 dB with occasional cues) Use of video helped Lou to maintain increased volume without feeling self-conscious. Practice with making two laps in gym while using intent to increase volume of speech. Practice sitting in gym and talking with increased volume as well. Good performance with occasional cues. Pt education: provided for ways to increase variety at mealtime with use of different toppings for oatmeal and cottage cheese. Education provided on using other foods to help with taking pills since Lou is having a gag response to applesauce recently. Home Exercise Program: sentence level reading and carryover activities to practice speaking with intent. TREATMENT: Speech/Language Therapy (27057): Skilled Intervention: Educated and instructed patient on compensatory strategies for increased volume at word and sentence level. Teaching and review of safe swallow and pill-taking strategies. Billing: Speech Treatment ([id number]) Total time / Length of visit: 45 minutes Session Start Time : 1600 Session Stop Time : 1645 Loi Sherwood CCC-CORPORATE SECURITY MANAGER [facility] 11-02-2024 History of Present illness Narrative Episode Visit Count: 3 Therapist That Will Accept/Oversee The Plan Of Care: Loi Sherwood Start of Care Date: 09/28/24 Onset Date: 10/21/23 Plan of Care Certification Date: 09/28/24 Next Certification Due Date: 12/21/24 [facility]ORTS THERAPY SPEECH THERAPY DISCONTINUANCE OF CARE PLAN OF CARE UPDATE: Impression: Communication deficits identified: Voice disorder Swallow Deficits Identified / Suspected: Oropharyngeal dysphagia Progress Toward Goals: Progressing as expected Functional gains: Improved ability to manage oral intake Goals for Episode of Care Updated: 11/02/2024 Goals for Episode of Care: created on 09/28/2024 through 12/21/24 SWALLOWING GOALS Demonstrate knowledge and use of compensatory swallowing strategies in order to reduce signs/symptoms of possible aspiration with a Soft and Bite-Sized IDDSI Level 6 and Thin Liquids IDDSI Level 0 within 100% of trials. 11/02/24 GOAL MET All goals to target the patient's overall ability to safely consume the highest appropriate diet level VOICE/LSVT GOALS Phonate with a LOUD voice > 70 dB SPL for medical and social needs during various speech tasks at sentence levels 80% of the time. 11/02/24 GOAL NOT MET Pt requested D/C today to seek out therapy closer to home. All goals to target the patient's overall ability to facilitate functional communication of ADL medical / social needs. RECOMMENDATION: Discontinue skilled speech therapy services due to wanting to transfer therapy services closer to home. Therapy Program Summary: Patient was seen 3 times for 6 weeks and treatment included: dysphagia reduction and increasing vocal intensity. Recommendations: Continue with previously developed home program and functional maintenance strategies and seek out therapy for voice and swallowing closer to home per pt.'s desire. CORPORATE SECURITY MANAGER Recommendations: Discontinue Speech Therapy (Continue OP therapy closer to home per pt's desire) Planned Interventions, Frequency, and Duration: SUBJECTIVE: Lou reports that swallowing is better as she follows swallowing guidelines given last session. Pt's daughter stated at the end of the session that she enjoyed hearing her mom talk in a louder, stronger voice when she was in the lobby today OBJECTIVE MEASURES WITH LEVEL OF FUNCTION: Speech/Voice/Language Paragraph Reading (dB SPL): (sentence level; short [id number]-42-12 dB range with occasional cues) Conversation (dB SPL): (min cues to increase intent at word/phrase level, 69-72 dB with occasional cues) Use of video helped Lou to maintain increased volume without feeling self-conscious. Practice with making two laps in gym while using intent to increase volume of speech. Practice sitting in gym and talking with increased volume as well. Good performance with occasional cues. Pt education: provided for ways to increase variety at mealtime with use of different toppings for oatmeal and cottage cheese. Education provided on using other foods to help with taking pills since Lou is having a gag response to applesauce recently. Home Exercise Program: sentence level reading and carryover activities to practice speaking with intent. TREATMENT: Speech/Language Therapy ([id number]): Skilled Intervention: Educated and instructed patient on compensatory strategies for increased volume at word and sentence level. Teaching and review of safe swallow and pill-taking strategies. Billing: Speech Treatment ([id number]) Total time / Length of visit: 45 minutes Session Start Time : 1600 Session Stop Time : 1645 Loi Sherwood CCC-CORPORATE SECURITY MANAGER documented in this encounter [facility] 11-02-2024 Note HNO ID: [id number] Author: SHARA TAPIA, PT Service: ? Author Type: Physical Therapist Type: Progress Notes Filed: 11/02/2024 16:06 Note Text: Episode Visit Count: 8 Therapist That Will Accept/Oversee The Plan Of Care: Shara Tapia PT Start of Care Date: 08/10/24 Onset Date: 04/20/20 (approx date) Plan of Care Certification Date: 08/10/24 Next Certification Due Date: 11/08/24 REHABILITATION AND SPORTS THERAPY PHYSICAL THERAPY DISCONTINUANCE OF CARE PLAN OF CARE UPDATE: Assessment: Lou Oliver is discontinued from Physical Therapy services due to goal achievement and maximal benefit.. Patient was seen for 8 visits from Start of Care Date: 08/10/24 to 11/02/2024 and treatment included: Therapeutic exercise, Neuromuscular re-education, Therapeutic activities, Self-residential management, Gait training, Patient/Family/Caregiver Education, Body mechanics training, Functional training, and General conditioning. Goals for Episode of Care: established 08/10/24 Updated Progress Note 09/28/24 and 11/02/24 [place] in PD specific home exercise program. (Met. Has BIG DVD) Improve 5x sit to stand test to 14 sec to improve endurance and functional mobility (Met) Improve score on Timed Up and Go to <10 seconds to decrease risk of falls (Met) Pt will improve 10 meter walk test to 6 seconds to decrease fall risk (Met) Patient will report no falls or verbalize understanding of recommendations to reduce fall risk. (Reports 1 fall) Improve postural awareness. (Met with cues) Hierarchy Goals: Decrease difficulty with 1)car transfers 2)handwriting 3)turning when walking 4)standing 5) sit to stand (Met) Patient Goals: decrease falls and learn PD specific ex. (Met) SUBJECTIVE: Pain: PROMIS Scales 10/23/2024 09/27/2024 08/08/2024 Higher is Better Phys Func - Score 39 (moderate dysfunction) 39 (moderate dysfunction) 38 (moderate dysfunction) Phys Func - Percentile 14 14 12 Self-Eff Symptom - Score 38 (Low) 41 (Average) 41 (Average) Self-Eff Symptom - Percentile 12 18 18 T-scores: mean of general population = 50. 5 points is clinically meaningfully difference Percentiles provide an indication of how the patient's score ranks in relation to the general population. Higher percentile rankings indicate better function/quality of life. 50th percentile is the average of the general population and indicates half of respondents had a worse score. OBJECTIVE MEASURES WITH LEVEL OF FUNCTION: Functional Performance Test Results 10 Meter Walk Test Fast Gait Trial 1 (seconds): 6 10 Meter Walk Test Fast Gait Average (m/sec): 1 5 Times Sit to Stand Test : 13 sec Timed Up and Go (sec): 9 sec TREATMENT: Therapeutic Exercise: 1: NuStep L 5 x 10 min for neuro priming with assist to transfer on/off equip and for set up. 2: Seated chin tucks 10x 3: Seated sternal lifts 10x Skilled Intervention: Patient was educated in proper exercise technique and purpose for exercises. Skilled judgment was used in selection of appropriate interventions. Therapeutic Activity: 1: 5x sit to stand 2: TUG 3: 10 MWT 4: Discussed goals, progress and follow up plans. 5: Simulated car transfers at Nu Steps. Skilled Intervention: Activity progression based on professional judgment. Neuromuscular Re-Education: 1: Reviewed LSVT BIG HEP x 5 reps ea for HEP. Skilled Intervention: Skilled judgment used to assess appropriate program for balance and coordination activity. Billing Therapeutic Exercise Treatment Minutes: 12 Therapeutic Activity Treatment Minutes: 18 Neuromuscular Re-Education Treatment Minutes: 20 Skilled Treatment Time Minutes (timed and untimed codes): 40 Total Session Time (minutes): 45 Session Start Time : 1430 Session Stop Time : 1515 Shara Tapia, PT [facility] 11-02-2024 History of Present illness Narrative Images from the original note were not included. Episode Visit Count: 8 Therapist That Will Accept/Oversee The Plan Of Care: Shara Tapia PT Start of Care Date: 08/10/24 Onset Date: 04/20/20 (approx date) Plan of Care Certification Date: 08/10/24 Next Certification Due Date: 11/08/24 REHABILITATION AND SPORTS THERAPY PHYSICAL THERAPY DISCONTINUANCE OF CARE PLAN OF CARE UPDATE: Assessment: Lou Oliver is discontinued from Physical Therapy services due to goal achievement and maximal benefit.. Patient was seen for 8 visits from Start of Care Date: 08/10/24 to 11/02/2024 and treatment included: Therapeutic exercise, Neuromuscular re-education, Therapeutic activities, Self-residential management, Gait training, Patient/Family/Caregiver Education, Body mechanics training, Functional training, and General conditioning. Goals for Episode of Care: established 08/10/24 Updated Progress Note 09/28/24 and 11/02/24 [place] in PD specific home exercise program. (Met. Has BIG DVD) Improve 5x sit to stand test to 14 sec to improve endurance and functional mobility (Met) Improve score on Timed Up and Go to <10 seconds to decrease risk of falls (Met) Pt will improve 10 meter walk test to 6 seconds to decrease fall risk (Met) Patient will report no falls or verbalize understanding of recommendations to reduce fall risk. (Reports 1 fall) Improve postural awareness. (Met with cues) Hierarchy Goals: Decrease difficulty with 1)car transfers 2)handwriting 3)turning when walking 4)standing 5) sit to stand (Met) Patient Goals: decrease falls and learn PD specific ex. (Met) SUBJECTIVE: Pain: PROMIS Scales 10/23/2024 09/27/2024 08/08/2024 Higher is Better Phys Func - Score 39 (moderate dysfunction) 39 (moderate dysfunction) 38 (moderate dysfunction) Phys Func - Percentile 14 14 12 Self-Eff Symptom - Score 38 (Low) 41 (Average) 41 (Average) Self-Eff Symptom - Percentile 12 18 18 T-scores: mean of general population = 50. 5 points is clinically meaningfully difference Percentiles provide an indication of how the patient's score ranks in relation to the general population. Higher percentile rankings indicate better function/quality of life. 50th percentile is the average of the general population and indicates half of respondents had a worse score. OBJECTIVE MEASURES WITH LEVEL OF FUNCTION: Functional Performance Test Results 10 Meter Walk Test Fast Gait Trial 1 (seconds): 6 10 Meter Walk Test Fast Gait Average (m/sec): 1 5 Times Sit to Stand Test : 13 sec Timed Up and Go (sec): 9 sec TREATMENT: Therapeutic Exercise: 1: NuStep L 5 x 10 min for neuro priming with assist to transfer on/off equip and for set up. 2: Seated chin tucks 10x 3: Seated sternal lifts 10x Skilled Intervention: Patient was educated in proper exercise technique and purpose for exercises. Skilled judgment was used in selection of appropriate interventions. Therapeutic Activity: 1: 5x sit to stand 2: TUG 3: 10 MWT 4: Discussed goals, progress and follow up plans. 5: Simulated car transfers at Nu Steps. Skilled Intervention: Activity progression based on professional judgment. Neuromuscular Re-Education: 1: Reviewed LSVT BIG HEP x 5 reps ea for HEP. Skilled Intervention: Skilled judgment used to assess appropriate program for balance and coordination activity. Billing Therapeutic Exercise Treatment Minutes: 12 Therapeutic Activity Treatment Minutes: 18 Neuromuscular Re-Education Treatment Minutes: 20 Skilled Treatment Time Minutes (timed and untimed codes): 40 Total Session Time (minutes): 45 Session Start Time : 1430 Session Stop Time : 1515 Shara Tapia PT documented in this encounter [facility] 10-22-2024 Telephone encounter Note The patient has been identified by name and date of : Yes Caregiver verified no other encounters exist for this prescription request: Yes Caregiver confirmed with patient/requestor that no other refills are due, in the near future, with this provider at this time: Yes The last office visit in the department: 07/21/2024 Does the patient have a future office visit with this provider/department: 12/07/2024 Requested Prescriptions Pending Prescriptions Disp Refills pravastatin (PRAVACHOL) 20 mg tablet 90 tablet 3 Sig: Take 1 tablet by mouth daily at bedtime. Patient requested to change preferred pharmacy to [facility]. Updated. Adelita Thomas RN October 22, 2024 9:38 AM [facility] 10-22-2024 Miscellaneous Notes The patient has been identified by name and date of : Yes Caregiver verified no other encounters exist for this prescription request: Yes Caregiver confirmed with patient/requestor that no other refills are due, in the near future, with this provider at this time: Yes The last office visit in the department: 07/21/2024 Does the patient have a future office visit with this provider/department: 12/07/2024 Requested Prescriptions Pending Prescriptions Disp Refills pravastatin (PRAVACHOL) 20 mg tablet 90 tablet 3 Sig: Take 1 tablet by mouth daily at bedtime. Patient requested to change preferred pharmacy to [facility]. Updated. Adelita Thomas RN October 22, 2024 9:38 AM documented in this encounter [facility] 10-20-2024 Instructions Sayra Mabry MD - 10/20/2024 8:09 AM EST It was a pleasure to see you today. We addressed the following diagnoses: Parkinson's disease with dyskinesia, unspecified whether manifestations fluctuate (hcc) (primary encounter diagnosis) Orthostatic hypotension My recommendations are as follows: For Parkinson's - medication changes below. Continue exercise For blood pressure - keep taking the midodrine and keep up with the fluids and salt. Do not take midodrine before bed or before lying flat for a nap Movement Disorders Medication Schedule: Medications 7 11 3 7 11 4A Sinemet IR 25/100 1 2 2 1.5 1 Sinemet CR 50/200 1 1 No follow-ups on file. If there are any concerns before your next visit, please call or you can send a message through [employer]. You can also now schedule and select appointments through [employer]. Sayra Mabry MD documented in this encounter [facility] 10-20-2024 Note HNO ID: [id number] Author: SAYRA MABRY MD Service: ? Author Type: Physician Type: Progress Notes Filed: 10/22/2024 10:58 Note Text: [facility] - FOLLOW UP EVALUATION - VIRTUAL VISIT Primary Neurologist: Sayra Mabry MD Primary EDWIN: Lucía Rizzo MD [id number] [facility] [id number] Dear Lucía Rizzo MD: I had the pleasure of seeing Ms. Oliver for follow-up today. As you know she is a 79 year old ambidextrous female with a history of PD since 2019. She is seen alone. We had a visit using: [employer] I have communicated my name and active licensure. The patient's identity and physical location were verified at the time of this visit. Either the patient or their legal auto service representative has been informed of the risks and benefits of -- and alternatives to -- treatment through a remote evaluation and consents to proceed with the evaluation remotely. Subjective During her previous visit the following plan was made: Previous plan-07/31/2024 Visit: Continue your medications as you have been taking them. We are not making any changes today. If you feel you are not tolerating them or your symptoms are changing before your next appointment, please feel free to send me a [employer] message or contact the office - Parkinson's PT - For the BP - continue midodrine and Florinef. Increase fluids. Discussed other conservative treatment Interested in clinical research? Not discussed Interval History Anxious in the mornings. Wakes up feeling good but can make herself feel anxious. This is before first meds. Wakes up at 4a or earlier and takes thyroid med then. Up around 530a. First Sinemet dose at 7. Doses are lasting 2 hours before she can feel it start to fade. Can get to the point she cannot walk, more likely in the evening around 7p. BP has been very good. On midodrine 10 mg 3 times a day. Dyskinesia isn't all the time. Not when she is engaged in something. Wears off at 11a when she has [place] exercise classes. Wears off around 4-5p. Movement Disorders Medications Schedule - as of the start of the visit: Medications 7 11 3 7 11 Sinemet IR 25/100 1 2 1.5 1 Sinemet CR 50/200 1 1 Parkinson's Motor Complications Medication benefit onset: 45 minutes Medication duration: 2 hours Wearing off: yes Dyskinesia: yes ALLERGIES Allergen Reactions Sulfa (Sulfonamide * Hives Current Outpatient Medications Medication Sig midodrine (PROAMATINE) 10 mg tablet Take 1 tablet by mouth every 8 hours. ondansetron orally disintegrating (ZOFRAN ODT) 4 mg disintegrating tablet Take 1 tablet by mouth every 8 hours as needed for nausea/vomiting. pantoprazole DR (PROTONIX) 40 mg tablet Take [...] daily. Take on empty stomach. For Thyroid Olopatadine (PATADAY ONCE DAILY RELIEF) 0.2 % drop Use 1 Drop in both eyes once daily. docusate sodium (COLACE) 100 mg capsule Take 1 capsule by mouth two times a day. pravastatin (PRAVACHOL) 20 mg tablet Take 1 tablet by mouth daily at bedtime. LORazepam (ATIVAN) 0.5 mg Take 0.5 mg by mouth as needed. Cholecalciferol, Vitamin D3, 50 mcg (2,000 unit) cap Take 2,000 Units by mouth once daily. carbidopa-levodopa (SINEMET 25-100) 25-100 mg per tablet Take 1 tab at 4AM, 1 tab at 7AM, 2 tabs at 11AM, 2 tabs at 3PM and 1.5 tabs at 7PM. carbidopa-levodopa CR (SINEMET CR) 50-200 mg per tablet TAKE 1 TABLET BY MOUTH in Morning and before bedtime as instructed. No current facility-administered medications for this visit. Questionnaires: In addition, the following areas that [...] Yes (moderate) Tremors/Gait/Balance Shaking or tremors: Yes (mild) Walking and balance problems: Yes (moderate) Number of falls in the Last Month: Once Gait freezing: Yes (mild) Autonomic/Pain Lightheadeness on standing: Yes (moderate) better Urinary problems: Yes (mild) Constipation problems: Yes (moderate) Pain and other sensations: Yes (mild) Speech/Swallowing Speech problems: Yes (mild) Drooling: Yes (moderate) Chewing and swallowing problems: Yes (moderate) after covid. harder to swallow. seeing speech therapy which helps. Sleep/Fatigue Sl (more content not included)... [facility] 10-20-2024 History of Present illness Narrative [facility] - FOLLOW UP EVALUATION - VIRTUAL VISIT Primary Neurologist: Sayra Mabry MD Primary EDWIN: Lucía Rizzo MD [address] [facility] [id number] Dear Lucía Rzizo MD: I had the pleasure of seeing Ms. Oliver for follow-up today. As you know she is a 79 year old ambidextrous female with a history of PD since 2019. She is seen alone. We had a visit using: [employer] I have communicated my name and active licensure. The patient's identity and physical location were verified at the time of this visit. Either the patient or their legal auto service representative has been informed of the risks and benefits of -- and alternatives to -- treatment through a remote evaluation and consents to proceed with the evaluation remotely. Subjective During her previous visit the following plan was made: Previous plan-07/31/2024 Visit: Continue your medications as you have been taking them. We are not making any changes today. If you feel you are not tolerating them or your symptoms are changing before your next appointment, please feel free to send me a [employer] message or contact the office - Parkinson's PT - For the BP - continue midodrine and Florinef. Increase fluids. Discussed other conservative treatment Interested in clinical research? Not discussed Interval History Anxious in the mornings. Wakes up feeling good but can make herself feel anxious. This is before first meds. Wakes up at 4a or earlier and takes thyroid med then. Up around 530a. First Sinemet dose at 7. Doses are lasting 2 hours before she can feel it start to fade. Can get to the point she cannot walk, more likely in the evening around 7p. BP has been very good. On midodrine 10 mg 3 times a day. Dyskinesia isn't all the time. Not when she is engaged in something. Wears off at 11a when she has [place] exercise classes. Wears off around 4-5p. Movement Disorders Medications Schedule - as of the start of the visit: Medications 7 11 3 7 11 Sinemet IR 25/100 1 2 1.5 1 Sinemet CR 50/200 1 1 Parkinson's Motor Complications Medication benefit onset: 45 minutes Medication duration: 2 hours Wearing off: yes Dyskinesia: yes ALLERGIES Allergen Reactions Sulfa (Sulfonamide * Hives Current Outpatient Medications Medication Sig midodrine (PROAMATINE) 10 mg tablet Take 1 tablet by mouth every 8 hours. ondansetron orally disintegrating (ZOFRAN ODT) 4 mg disintegrating tablet Take 1 tablet by mouth every 8 hours as needed for nausea/vomiting. pantoprazole DR (PROTONIX) 40 mg tablet Take [...] daily. Take on empty stomach. For Thyroid Olopatadine (PATADAY ONCE DAILY RELIEF) 0.2 % drop Use 1 Drop in both eyes once daily. docusate sodium (COLACE) 100 mg capsule Take 1 capsule by mouth two times a day. pravastatin (PRAVACHOL) 20 mg tablet Take 1 tablet by mouth daily at bedtime. LORazepam (ATIVAN) 0.5 mg Take 0.5 mg by mouth as needed. Cholecalciferol, Vitamin D3, 50 mcg (2,000 unit) cap Take 2,000 Units by mouth once daily. carbidopa-levodopa (SINEMET 25-100) 25-100 mg per tablet Take 1 tab at 4AM, 1 tab at 7AM, 2 tabs at 11AM, 2 tabs at 3PM and 1.5 tabs at 7PM. carbidopa-levodopa CR (SINEMET CR) 50-200 mg per tablet TAKE 1 TABLET BY MOUTH in Morning and before bedtime as instructed. No current facility-administered medications for this visit. Questionnaires: In addition, the following areas that [...] Yes (moderate) Tremors/Gait/Balance Shaking or tremors: Yes (mild) Walking and balance problems: Yes (moderate) Number of falls in the Last Month: Once Gait freezing: Yes (mild) Autonomic/Pain Lightheadeness on standing: Yes (moderate) better Urinary problems: Yes (mild) Constipation problems: Yes (moderate) Pain and other sensations: Yes (mild) Speech/Swallowing Speech problems: Yes (mild) Drooling: Yes (moderate) Chewing and swallowing problems: Yes (moderate) after covid. harder to swallow. seeing speech therapy which helps. Sleep/Fatigue Sleep problems: Yes (moderate) Daytime sleepiness: Yes (mild) Fatigue: Yes (mild) Mood/Behavior Depression: PHQ-9 Score: 12 usually representing moderate (10-14) depression. Anxiety: EVAN-7 Total Score: 14 usually representing moderate (10-14) anxiety. Finally, the following table shows the patient's overall global physical and mental health using the PROMIS scale: PROMIS-10 Flowsheet Row OT/PT/Speech Visit from 10/05/2024 in [facility] Appointment from 07/14/2024 in Neurology Global Physical Health T Score 42.3 42.3 Global Mental Health T Score 43.5 48.3 0-10 Standard Pain Scale 3 3 *PROMIS-10 scoring scale: mean = 50, over 50 is above average, under 50 is below average Objective General: Awake, alert, interactive, no acute distress, good nutritional status, normal development, well-kept Assessment and Plan: Assessment Ms. Oliver is a ambidextrous 79 year old female with PD. Patient of Dr. Connolly referred by PCP for second opinion. She is experiencing wearing off. Changes to Sinemet made. She would like to keep her in-person appointment in October which will give sufficient time to see how these changes work. The following are the current problems noted and addressed during this visit: Parkinson's disease with dyskinesia, unspecified whether manifestations fluctuate (hcc) (primary encounter diagnosis) Orthostatic hypotension Parkinson's disease, unspecified whether dyskinesia present, unspecified whether manifestations fluctuate (hcc) Parkinson disease (hcc) Plan 10/20/2024 Visit: For Parkinson's - medication changes below. Continue exercise For blood pressure - keep taking the midodrine and keep up with the fluids and salt. Do not take midodrine before bed or before lying flat for a nap Interested in clinical research? Not discussed Updated Movement Disorder Medication Schedule: Medications 7 11 3 7 11 4A Sinemet IR 25/100 (yellow) 1 2 2 1.5 1 Sinemet CR 50/200 (blue) 1 1 Level of service : 96303 ( 30-39 min). Time spent 39 min on the day of service, which included preparing to see the patient, [id number] patient care, completing clinical documentation, counseling and educating the patient/family/caregiver, and ordering medications, tests, or procedures. Thank you for allowing me to be part of the clinical care of this patient! I look forward to continued participation in the patient s care with you. Please do not hesitate to call with any questions. Sincerely, Sayra Mabry MD documented in this encounter [facility] 10-05-2024 Note HNO ID: [id number] Author: LOI SHERWOOD CCC-CORPORATE SECURITY MANAGER Service: ? Author Type: Speech Language Pathologist Type: Progress Notes Filed: 10/05/2024 17:36 Note Text: Episode Visit Count: 2 Therapist That Will Accept/Oversee The Plan Of Care: Loi Sherwood Start of Care Date: 09/28/24 Onset Date: 10/21/23 Plan of Care Certification Date: 09/28/24 Next Certification Due Date: 12/21/24 [facility] REHABILITATION AND SPORTS THERAPY SPEECH THERAPY TREATMENT NOTE IMPRESSION: Communication deficits identified: Voice disorder Swallow Deficits Identified / Suspected: Oropharyngeal dysphagia PLAN: SUBJECTIVE: Patient is reporting difficulty swallowing gel tabs. OBJECTIVE: MEASURES WITH LEVEL OF FUNCTION: Professional training and skilled instructions were provided as follows: Swallowing skills: Instruction on use of hard swallow + pill in puree to facilitate swallowing a gel tab pt brought from home. Therapeutic snack with use of metal spoon, placing food anteriorly on tongue and using effortful swallow with PO intake. Instruction demonstration on Jose Guadalupe could not complete this exercise today. Home exercise program: written instruction detailing strategies practiced today. TREATMENT: Swallow / Dysphagia (87066): Skilled Intervention: Instructed patient / caregiver on recommended compensatory strategies to maximize safety with oral intake while maintaining nutrition, hydration and medication stability. Billing: Dysphagia Treatment ([id number]) Total time / Length of visit: 45 minutes Session Start Time : 1515 Session Stop Time : 1600 Loi Sherwood CCC-CORPORATE SECURITY MANAGER [facility] 10-05-2024 History of Present illness Narrative Episode Visit Count: 2 Therapist That Will Accept/Oversee The Plan Of Care: Loi Sherwood Start of Care Date: 09/28/24 Onset Date: 10/21/23 Plan of Care Certification Date: 09/28/24 Next Certification Due Date: 12/21/24 [facility] REHABILITATION AND SPORTS THERAPY SPEECH THERAPY TREATMENT NOTE IMPRESSION: Communication deficits identified: Voice disorder Swallow Deficits Identified / Suspected: Oropharyngeal dysphagia PLAN: SUBJECTIVE: Patient is reporting difficulty swallowing gel tabs. OBJECTIVE: MEASURES WITH LEVEL OF FUNCTION: Professional training and skilled instructions were provided as follows: Swallowing skills: Instruction on use of hard swallow + pill in puree to facilitate swallowing a gel tab pt brought from home. Therapeutic snack with use of metal spoon, placing food anteriorly on tongue and using effortful swallow with PO intake. Instruction demonstration on Jose Guadalupe could not complete this exercise today. Home exercise program: written instruction detailing strategies practiced today. TREATMENT: Swallow / Dysphagia ([id number]): Skilled Intervention: Instructed patient / caregiver on recommended compensatory strategies to maximize safety with oral intake while maintaining nutrition, hydration and medication stability. Billing: Dysphagia Treatment ([id number]) Total time / Length of visit: 45 minutes Session Start Time : 1515 Session Stop Time : 1600 Loi Sherwood [employer]-CORPORATE SECURITY MANAGER documented in this encounter [facility] 10-05-2024 Note HNO ID: [id number] Author: SHARA TAPIA, HANS Service: ? Author Type: Physical Therapist Type: Progress Notes Filed: 10/05/2024 15:15 Note Text: Episode Visit Count: 7 Therapist That Will Accept/Oversee The Plan Of Care: Shara Tapia PT Start of Care Date: 08/10/24 Onset Date: 04/20/20 ( date) Plan of Care Certification Date: 08/10/24 Next Certification Due Date: 11/08/24 REHABILITATION AND SPORTS THERAPY PHYSICAL THERAPY TREATMENT NOTE ASSESSMENT: Lou Oliver tolerated the session with no issues. She demonstrated improvements in tandem stance. The patient will continue to benefit from ongoing skilled physical therapy to progress toward set goals. Total Number of Visits Planned: 3 PLAN FOR NEXT VISIT: Progress PD specific exercise and balance activities. SUBJECTIVE: Pt states she has difficulty with tandem stance. Pain: OBJECTIVE MEASURES WITH LEVEL OF FUNCTION: 4 Stage Balance Test Tandem base of support (sec): 28 sec TREATMENT: Therapeutic Exercise: 1: NuStep L 4 x 5 min for neuro priming with assist to transfer on/off equip and for set up. 2: [place] stretch on slant board hold 60 sec. Skilled Intervention: Patient was educated in proper exercise technique and purpose for exercises. Skilled judgment was used in selection of appropriate interventions. Neuromuscular Re-Education: 1: Tandem stance 2: BOSU flat side up static stance, CW, CCW 3: BOSU convex side up step touch 10 x ea 4: Forward and lateral step and reach 10x ea bilat 5: Standing trunk rot with arms at [address] 6: BIG walking 350 ft S with emphasis on BIG arm swing. 7: [place] in ll bars CGA with UE support prn. Skilled Intervention: Skilled judgment used to assess appropriate program for balance and coordination activity. Billing Therapeutic Exercise Treatment Minutes: 7 Neuromuscular Re-Education Treatment Minutes: 38 Skilled Treatment Time Minutes (timed and untimed codes): 45 Total Session Time (minutes): 45 Session Start Time : 1430 Session Stop Time : 1515 Shara Tapia, PT [facility] 10-05-2024 History of Present illness Narrative Episode Visit Count: 7 Therapist That Will Accept/Oversee The Plan Of Care: Shara Tapia PT Start of Care Date: 08/10/24 Onset Date: 04/20/20 (approx date) Plan of Care Certification Date: 08/10/24 Next Certification Due Date: 11/08/24 REHABILITATION AND SPORTS THERAPY PHYSICAL THERAPY TREATMENT NOTE ASSESSMENT: Lou Oliver tolerated the session with no issues. She demonstrated improvements in tandem stance. The patient will continue to benefit from ongoing skilled physical therapy to progress toward set goals. Total Number of Visits Planned: 3 PLAN FOR NEXT VISIT: Progress PD specific exercise and balance activities. SUBJECTIVE: Pt states she has difficulty with tandem stance. Pain: OBJECTIVE MEASURES WITH LEVEL OF FUNCTION: 4 Stage Balance Test Tandem base of support (sec): 28 sec TREATMENT: Therapeutic Exercise: 1: NuStep L 4 x 5 min for neuro priming with assist to transfer on/off equip and for set up. 2: Heelcord stretch on slant board hold 60 sec. Skilled Intervention: Patient was educated in proper exercise technique and purpose for exercises. Skilled judgment was used in selection of appropriate interventions. Neuromuscular Re-Education: 1: Tandem stance 2: BOSU flat side up static stance, CW, CCW 3: BOSU convex side up step touch 10 x ea 4: Forward and lateral step and reach 10x ea bilat 5: Standing trunk rot with arms at [address] 6: BIG walking 350 ft S with emphasis on BIG arm swing. 7: [place] stones in ll bars CGA with UE support prn. Skilled Intervention: Skilled judgment used to assess appropriate program for balance and coordination activity. Billing Therapeutic Exercise Treatment Minutes: 7 Neuromuscular Re-Education Treatment Minutes: 38 Skilled Treatment Time Minutes (timed and untimed codes): 45 Total Session Time (minutes): 45 Session Start Time : 1430 Session Stop Time : 1515 Shara Tapia PT documented in this encounter [facility] 09-28-2024 Note HNO ID: [id number] Author: LOI SHERWOOD CCC-CORPORATE SECURITY MANAGER Service: ? Author Type: Speech Language Pathologist Type: Progress Notes Filed: 09/28/2024 18:20 Note Text: Episode Visit Count: 1 Therapist That Will Accept/Oversee The Plan Of Care: Loi Sherwood Start of Care Date: 09/28/24 Onset Date: 10/21/23 Plan of Care Certification Date: 09/28/24 Next Certification Due Date: 12/21/24 [facility] REHABILITATION AND SPORTS THERAPY SWALLOW and VOICE EVALUATION PLAN OF CARE: Impression: Communication deficits identified: Voice disorder Swallow Deficits Identified / Suspected: Oropharyngeal dysphagia RECOMMENDATION: Diet Recommendations: Thin Liquids IDDSI Level 0, Soft and Bite-Sized IDDSI Level 6 Swallowing Precautions Recommendations: Effortful swallow, Feed / Eat at a slow rate (Three second hold with food and liquids, including liquids via straw) CORPORATE SECURITY MANAGER Recommendations: Outpatient Speech Therapy Results and Recommendations Discussed With: Patient Prognosis: Fair Fair: (limited to one visit a week due to transportation issues) Goals for Episode of Care: created on 09/28/2024 through 12/21/24 SWALLOWING GOALS Demonstrate knowledge and use of compensatory swallowing strategies in order to reduce signs/symptoms of possible aspiration with a Soft and Bite-Sized IDDSI Level 6 and Thin Liquids IDDSI Level 0 within 100% of trials. All goals to target the patient's overall ability to safely consume the highest appropriate diet level VOICE/LSVT GOALS Phonate with a LOUD voice > 70 dB SPL for medical and social needs during various speech tasks at sentence levels 80% of the time. All goals to target the patient's overall ability to facilitate functional communication of ADL medical / social needs. Planned Interventions, Frequency, and Duration: Planned Treatment Interventions: Dysphagia Reduction Training (82090), Patient / Caregiver Education/ Training, Voice Training ([id number]), Dysphagia Treatment (14670) Current Frequency: 1x/week Duration: 12 weeks PLAN FOR NEXT VISIT: vocal intensity and swallow exercises Patient demonstrates good understanding of plan of care and treatment. The above goals and plan of care were discussed and agreed upon by patient/family. SUBJECTIVE: Lou Oliver is a 79 year old female seen today for a diagnostic. She reports that she was diagnosed with PD in 2019 and that her voice is very soft and that she has difficulty swallowing liquids and solids. Past Relevant Medical Conditions: Arthritis, Anxiety, Depression, Covid, Parkinson's Disease (Low blood pressure; tinnitus; meningioma) . Patient Goals: clear speech Prior Functional Level: Required Assistance OBJECTIVE MEASURES WITH LEVEL OF FUNCTION: Portions of the following standardized testing were utilized in the evaluation of the patient: Clinician directed non-standardized probes along with portions of standardized assessments were utilized to assess patient. . Current Status Dentition: Dentures-Lower Partial, Dentures-Upper Partial Current Feeding Method: Oral Current Diet Textures: Soft and Bite-Sized IDDSI Level 6, Thin Liquids IDDSI Level 0 Current Level Of Communication: Verbal Current Management Of Secretions: Poor management of oral secretions Oral Motor Exam: Within Functional Limits Except Lingual Strength Impaired: Lingual Strength Comments (bilateral and for protrusion) Speech/Voice/Language Voice Assessment: Yes Maximum Phonation Time (seconds): 8 High Pitch Fundamental Frequency (Hz): 246 Low Pitch Fundamental Frequency (Hz): 123 Paragraph Reading (dB SPL): (58-68 dB range for [place]) Conversation (dB SPL): (58-71 dB range for monologue) Vocal Quality: Hoarse (mild) COGNITIVE-LINGUISTIC SKILLS Swallow Position Of Patient During Assessment: Upright In Chair Feeding Method: Patient Self-Fed Consistencies Presented: Thin Liquids IDDSI Level 0, Pureed Solids IDDSI Level 4, Solid Thin Liquids Pharyngeal Phase: (Pt reports coughing on thins at home, with and without straw) Solid Oral Phase: (extra chewing to fully puree cracker) Solid Pharyngeal Phase: (Pt reports inconsistently feeling food stuck in area of esophagus after swallow when eating at home.) Response to Consistencies Presented: no s/s aspiration Compensatory Strategies Utilized During Assessment: Effortful swallow, Feed / Eat at a slow rate (Fully masticate solids. Pt reports using applesauce with pills at times.) Orient Swallow Protocol: Pass Education: Education Learning Preferences: Demonstration, Performance Barriers: Cognitive Limitations Learning/Educational Needs: Compensatory Strategies, Diet Modification(s), Family Education/Training, Plan of Care, Rehabilitation Techniques and Procedures, Voice Skills, Swallowing Skills, Home Exercise Program Education Provided: (Education provided about options for service delivery for speech therapy. Pt is limiited to once (more content not included)... [facility] 09-28-2024 History of Present illness Narrative Episode Visit Count: 1 Therapist That Will Accept/Oversee The Plan Of Care: Loi Sherwood Start of Care Date: 09/28/24 Onset Date: 10/21/23 Plan of Care Certification Date: 09/28/24 Next Certification Due Date: 12/21/24 [facility] REHABILITATION AND SPORTS THERAPY SWALLOW and VOICE EVALUATION PLAN OF CARE: Impression: Communication deficits identified: Voice disorder Swallow Deficits Identified / Suspected: Oropharyngeal dysphagia RECOMMENDATION: Diet Recommendations: Thin Liquids IDDSI Level 0, Soft and Bite-Sized IDDSI Level 6 Swallowing Precautions Recommendations: Effortful swallow, Feed / Eat at a slow rate (Three second hold with food and liquids, including liquids via straw) CORPORATE SECURITY MANAGER Recommendations: Outpatient Speech Therapy Results and Recommendations Discussed With: Patient Prognosis: Fair Fair: (limited to one visit a week due to transportation issues) Goals for Episode of Care: created on 09/28/2024 through 12/21/24 SWALLOWING GOALS Demonstrate knowledge and use of compensatory swallowing strategies in order to reduce signs/symptoms of possible aspiration with a Soft and Bite-Sized IDDSI Level 6 and Thin Liquids IDDSI Level 0 within 100% of trials. All goals to target the patient's overall ability to safely consume the highest appropriate diet level VOICE/LSVT GOALS Phonate with a LOUD voice > 70 dB SPL for medical and social needs during various speech tasks at sentence levels 80% of the time. All goals to target the patient's overall ability to facilitate functional communication of ADL medical / social needs. Planned Interventions, Frequency, and Duration: Planned Treatment Interventions: Dysphagia Reduction Training (20162), Patient / Caregiver Education/ Training, Voice Training (85341), Dysphagia Treatment (21509) Current Frequency: 1x/week Duration: 12 weeks PLAN FOR NEXT VISIT: vocal intensity and swallow exercises Patient demonstrates good understanding of plan of care and treatment. The above goals and plan of care were discussed and agreed upon by patient/family. SUBJECTIVE: Lou Oliver is a 79 year old female seen today for a diagnostic. She reports that she was diagnosed with PD in 2019 and that her voice is very soft and that she has difficulty swallowing liquids and solids. Past Relevant Medical Conditions: Arthritis, Anxiety, Depression, Covid, Parkinson's Disease (Low blood pressure; tinnitus; meningioma) . Patient Goals: clear speech Prior Functional Level: Required Assistance OBJECTIVE MEASURES WITH LEVEL OF FUNCTION: Portions of the following standardized testing were utilized in the evaluation of the patient: Clinician directed non-standardized probes along with portions of standardized assessments were utilized to assess patient. . Current Status Dentition: Dentures-Lower Partial, Dentures-Upper Partial Current Feeding Method: Oral Current Diet Textures: Soft and Bite-Sized IDDSI Level 6, Thin Liquids IDDSI Level 0 Current Level Of Communication: Verbal Current Management Of Secretions: Poor management of oral secretions Oral Motor Exam: Within Functional Limits Except Lingual Strength Impaired: Lingual Strength Comments (bilateral and for protrusion) Speech/Voice/Language Voice Assessment: Yes Maximum Phonation Time (seconds): 8 High Pitch Fundamental Frequency (Hz): 246 Low Pitch Fundamental Frequency (Hz): 123 Paragraph Reading (dB SPL): (58-68 dB range for [place]) Conversation (dB SPL): (58-71 dB range for monologue) Vocal Quality: Hoarse (mild) COGNITIVE-LINGUISTIC SKILLS Swallow Position Of Patient During Assessment: Upright In Chair Feeding Method: Patient Self-Fed Consistencies Presented: Thin Liquids IDDSI Level 0, Pureed Solids IDDSI Level 4, Solid Thin Liquids Pharyngeal Phase: (Pt reports coughing on thins at home, with and without straw) Solid Oral Phase: (extra chewing to fully puree cracker) Solid Pharyngeal Phase: (Pt reports inconsistently feeling food stuck in area of esophagus after swallow when eating at home.) Response to Consistencies Presented: no s/s aspiration Compensatory Strategies Utilized During Assessment: Effortful swallow, Feed / Eat at a slow rate (Fully masticate solids. Pt reports using applesauce with pills at times.) Orient Swallow Protocol: Pass Education: Education Learning Preferences: Demonstration, Performance Barriers: Cognitive Limitations Learning/Educational Needs: Compensatory Strategies, Diet Modification(s), Family Education/Training, Plan of Care, Rehabilitation Techniques and Procedures, Voice Skills, Swallowing Skills, Home Exercise Program Education Provided: (Education provided about options for service delivery for speech therapy. Pt is limiited to once a week due to distance and transportation issues.) TREATMENT: Evaluation: Behavior Quality analysis Voice ([id number]) Swallow Eval Func ([id number]) Billing: Behavior Quality analysis Voice ([id number]) and Clinical Swallow Evaluation (24459) Total time / Length of visit: 45 minutes Session Start Time : 1525 Session Stop Time : 1610 Loi Sherwood CCC-CORPORATE SECURITY MANAGER documented in this encounter [facility] 09-28-2024 Note HNO ID: [id number] Author: SHARA TAPIA PT Service: ? Author Type: Physical Therapist Type: Progress Notes Filed: 09/28/2024 16:14 Note Text: Episode Visit Count: 6 Therapist That Will Accept/Oversee The Plan Of Care: Shara Tapia PT Start of Care Date: 08/10/24 Onset Date: 04/20/20 (approx date) Plan of Care Certification Date: 08/10/24 Next Certification Due Date: 11/08/24 REHABILITATION AND SPORTS THERAPY PHYSICAL THERAPY PROGRESS REPORT PLAN OF CARE UPDATE: Assessment: Lou Grahamll demonstrates improvements in 10 MWT, SLS, 5x sit to stand and TUG. The patient has progressed toward goals. Patient continues to present with impairments in balance, gait, independence in exercise, posture, and symptom management that interfere with gait and functional mobility. Current prognosis is fair. The patient will benefit from continued skilled therapy services to meet the updated goals for this plan of care as noted below. Goals for Episode of Care: established 08/10/24 Updated Progress Note 09/28/24 [place] in PD specific home exercise program. (Ongoing) Improve 5x sit to stand test to 14 sec to improve endurance and functional mobility (Improved, ongoing) Improve score on Timed Up and Go to <10 seconds to decrease risk of falls (Met) Pt will improve 10 meter walk test to 6 seconds to decrease fall risk (Met) Patient will report no falls or verbalize understanding of recommendations to reduce fall risk. (Reports 1 fall) Improve postural awareness. (Ongoing) Hierarchy Goals: Decrease difficulty with 1)car transfers 2)handwriting 3)turning when walking 4)standing 5) sit to stand (Improving) Patient Goals: decrease falls and learn PD specific ex. Planned Interventions, Frequency, and Duration: 2x/week, 2 weeks Total Number of Visits Planned: 4 Patient to be seen for Therapeutic exercise (76149), Neuromuscular re-education (47254), Therapeutic activities (92415), Self-residential management (06200), Gait Training (60892), Patient/Family/Caregiver Education, Body Mechanics Training, Functional training, General Conditioning PLAN FOR NEXT VISIT: Progress PD specific exercise and balance activities. SUBJECTIVE: Pain: PROMIS Scales 09/27/2024 08/08/2024 10/22/2023 Higher is Better Phys Func - Score 39 (moderate dysfunction) 38 (moderate dysfunction) 38 (moderate dysfunction) Phys Func - Percentile 14 12 12 Self-Eff Symptom - Score 41 (Average) 41 (Average) Self-Eff Symptom - Percentile 18 18 T-scores: mean of general population = 50. 5 points is clinically meaningfully difference Percentiles provide an indication of how the patient's score ranks in relation to the general population. Higher percentile rankings indicate better function/quality of life. 50th percentile is the average of the general population and indicates half of respondents had a worse score. OBJECTIVE MEASURES WITH LEVEL OF FUNCTION: Functional Performance Test Results Assistive Device: Cane 10 Meter Walk Test Fast Gait Trial 1 (seconds): 5.37 10 Meter Walk Test Fast Gait Average (m/sec): 1.12 5 Times Sit to Stand Test : 16.16 sec Timed Up and Go (sec): 9.76 sec 4 Stage Balance Test Tandem base of support (sec): 28 sec Single leg stance - right (sec): 10 sec Single leg stance - left (sec): 11 sec TREATMENT: Therapeutic Exercise: 1: NuStep L 5 x 5 min for neuro priming with assist to transfer on/off equip and for set up. 2: [place]el[place] stretch on slant boared hold 60 sec. 3: UBE 2 min forward, 2 min backward for neuro priming, endurance and strengthening. Skilled Intervention: Patient was educated in proper exercise technique and purpose for exercises. Skilled judgment was used in selection of appropriate interventions. Therapeutic Activity: 1: TUG 2: 5x sit to stand 3: 10 MWT 4: Discussed goals and progress with patient. Skilled Intervention: Activity progression based on professional judgment. Neuromuscular Re-Education: 1: Tandem stance 2: SLS 3: Neuro gait training without device with cues for upright posture and bilat arm swing 350 ft. Skilled Intervention: Skilled judgment used to assess appropriate program for balance and coordination activity. Billing Therapeutic Exercise Treatment Minutes: 10 Therapeutic Activity Treatment Minutes: 15 Neuromuscular Re-Education Treatment Minutes: 20 Skilled Treatment Time Minutes (timed and untimed codes): 45 Total Session Time (minutes): 45 Session Start Time : 1430 Session Stop Time : 1515 Shara Tapia, PT [facility] 09-28-2024 History of Present illness Narrative Images from the original note were not included. Episode Visit Count: 6 Therapist That Will Accept/Oversee The Plan Of Care: Shara Tapia PT Start of Care Date: 08/10/24 Onset Date: 04/20/20 (approx date) Plan of Care Certification Date: 08/10/24 Next Certification Due Date: 11/08/24 REHABILITATION AND SPORTS THERAPY PHYSICAL THERAPY PROGRESS REPORT PLAN OF CARE UPDATE: Assessment: Lou Oliver demonstrates improvements in 10 MWT, SLS, 5x sit to stand and TUG. The patient has progressed toward goals. Patient continues to present with impairments in balance, gait, independence in exercise, posture, and symptom management that interfere with gait and functional mobility. Current prognosis is fair. The patient will benefit from continued skilled therapy services to meet the updated goals for this plan of care as noted below. Goals for Episode of Care: established 08/10/24 Updated Progress Note 09/28/24 [place] in PD specific home exercise program. (Ongoing) Improve 5x sit to stand test to 14 sec to improve endurance and functional mobility (Improved, ongoing) Improve score on Timed Up and Go to <10 seconds to decrease risk of falls (Met) Pt will improve 10 meter walk test to 6 seconds to decrease fall risk (Met) Patient will report no falls or verbalize understanding of recommendations to reduce fall risk. (Reports 1 fall) Improve postural awareness. (Ongoing) Hierarchy Goals: Decrease difficulty with 1)car transfers 2)handwriting 3)turning when walking 4)standing 5) sit to stand (Improving) Patient Goals: decrease falls and learn PD specific ex. Planned Interventions, Frequency, and Duration: 2x/week, 2 weeks Total Number of Visits Planned: 4 Patient to be seen for Therapeutic exercise (89976), Neuromuscular re-education (60781), Therapeutic activities (51944), Self-residential management (24737), Gait Training (65993), Patient/Family/Caregiver Education, Body Mechanics Training, Functional training, General Conditioning PLAN FOR NEXT VISIT: Progress PD specific exercise and balance activities. SUBJECTIVE: Pain: PROMIS Scales 09/27/2024 08/08/2024 10/22/2023 Higher is Better Phys Func - Score 39 (moderate dysfunction) 38 (moderate dysfunction) 38 (moderate dysfunction) Phys Func - Percentile 14 12 12 Self-Eff Symptom - Score 41 (Average) 41 (Average) Self-Eff Symptom - Percentile 18 18 T-scores: mean of general population = 50. 5 points is clinically meaningfully difference Percentiles provide an indication of how the patient's score ranks in relation to the general population. Higher percentile rankings indicate better function/quality of life. 50th percentile is the average of the general population and indicates half of respondents had a worse score. OBJECTIVE MEASURES WITH LEVEL OF FUNCTION: Functional Performance Test Results Assistive Device: Cane 10 Meter Walk Test Fast Gait Trial 1 (seconds): 5.37 10 Meter Walk Test Fast Gait Average (m/sec): 1.12 5 Times Sit to Stand Test : 16.16 sec Timed Up and Go (sec): 9.76 sec 4 Stage Balance Test Tandem base of support (sec): 28 sec Single leg stance - right (sec): 10 sec Single leg stance - left (sec): 11 sec TREATMENT: Therapeutic Exercise: 1: NuStep L 5 x 5 min for neuro priming with assist to transfer on/off equip and for set up. 2: [place] stretch on slant boared hold 60 sec. 3: UBE 2 min forward, 2 min backward for neuro priming, endurance and strengthening. Skilled Intervention: Patient was educated in proper exercise technique and purpose for exercises. Skilled judgment was used in selection of appropriate interventions. Therapeutic Activity: 1: TUG 2: 5x sit to stand 3: 10 MWT 4: Discussed goals and progress with patient. Skilled Intervention: Activity progression based on professional judgment. Neuromuscular Re-Education: 1: Tandem stance 2: SLS 3: Neuro gait training without device with cues for upright posture and bilat arm swing 350 ft. Skilled Intervention: Skilled judgment used to assess appropriate program for balance and coordination activity. Billing Therapeutic Exercise Treatment Minutes: 10 Therapeutic Activity Treatment Minutes: 15 Neuromuscular Re-Education Treatment Minutes: 20 Skilled Treatment Time Minutes (timed and untimed codes): 45 Total Session Time (minutes): 45 Session Start Time : 1430 Session Stop Time : 1515 Shara Tapia PT documented in this encounter [facility] 09-07-2024 Telephone encounter Note Patient's Daughter Hiro calls and states that midodrine was changed from 5 mg TID to 10 mg TID by [facility] at last hospital stay on 08/13/2024. Daughter asking if this prescription can be sent to [facility]? The patient has been identified by name and date of : Yes Caregiver verified no other encounters exist for this prescription request: Yes Caregiver confirmed with patient/requestor that no other refills are due, in the near future, with this provider at this time: Yes The last office visit in the department: 07/21/2024 Does the patient have a future office visit with this provider/department: Yes 12/07/2024 Requested Prescriptions Pending Prescriptions Disp Refills midodrine (PROAMATINE) 10 mg tablet 90 tablet 1 Sig: Take 1 tablet by mouth every 8 hours. Sylvia Dumas RN September 07, 2024 12:38 PM [facility] 09-07-2024 Miscellaneous Notes Patient's Daughter Hiro calls and states that midodrine was changed from 5 mg TID to 10 mg TID by [facility] at last hospital stay on 08/13/2024. Daughter asking if this prescription can be sent to [facility] [place]? The patient has been identified by name and date of : Yes Caregiver verified no other encounters exist for this prescription request: Yes Caregiver confirmed with patient/requestor that no other refills are due, in the near future, with this provider at this time: Yes The last office visit in the department: 07/21/2024 Does the patient have a future office visit with this provider/department: Yes 12/07/2024 Requested Prescriptions Pending Prescriptions Disp Refills midodrine (PROAMATINE) 10 mg tablet 90 tablet 1 Sig: Take 1 tablet by mouth every 8 hours. Sylvia Dumas RN September 07, 2024 12:38 PM documented in this encounter [facility] 09-01-2024 History of Present illness Narrative 09/01/2024 Patient presents with: 6 week follow up SUBJECTIVE: This is a 79 year old that is here today for follow up and med refills. Patient recently seen following an ED visit for syncope. BP medication adjusted with midodrine increased to 5 mg TID. Eating salty foods and trying to stay hydrated. Family is having protein shakes delivered, she does like the taste and communicated that she is drinking them. Overall has felt better the last 2 weeks since the medication adjustment and has not had any syncopal episodes. Needs refill. Also requesting refill for zofran for nausea prn. Recent BMP recheck was WNL, hyponatremia seen in ED resolved. Vitamin D level WNL, but low normal. Can double up on Vitamin D supplement 2-3 x week through the winter. Overall feeling well today. PAST MEDICAL HISTORY Diagnosis Date Diverticulosis of colon (without mention of hemorrhage) Essential hypertension, benign 04/04/2007 Mental disorder Migraine without aura 04/04/2007 Parkinson disease (HCC) Unspecified hypothyroidism 04/04/2007 ALLERGIES Sulfa (Sulfonamide Antibiotics) MEDICATIONS Current Outpatient Medications Medication Sig midodrine (PROAMITINE) [...] No current facility-administered medications for this visit. SOCIAL HISTORY Social History Tobacco Use Smoking status: Never Smokeless tobacco: Never Tobacco comments: Father smoked in childhood home. 2 spouses were smokers. Vaping Use Vaping status: Never Used Substance Use Topics Alcohol use: No Drug use: No REVIEW OF SYSTEMS See HPI OBJECTIVE: BP 113/70 Pulse 70 Temp (!) 35.9 C (96.6 F) Resp 16 Wt 54.9 kg (121 lb) SpO2 99% BMI 21.43 kg/m APPEARANCE Well appearing, alert, in no acute distress, well-hydrated, well nourished. ASSESSMENT/PLAN: 1. Hyponatremia - ICD9: 276.1, ICD10: E87.1 (primary diagnosis) Resolved. BMP WNL 2. Gastroesophageal reflux disease with esophagitis without hemorrhage - ICD9: 530.81, 530.10, ICD10: K21.00 - ONDANSETRON 4 MG DISINTEGRATING TABLET 3. Orthostatic hypotension - ICD9: 458.0, ICD10: I95.1 Refill, improved. Continue current dose. - MIDODRINE 5 MG TABLET The patient indicates understanding of these issues and agrees with the plan. Reviewed red flags and when to seek care sooner. Jean Carlos Resendiz PA-C 09/01/2024 documented in this encounter [facility] 08-31-2024 Note HNO ID: [id number] Author: SHARA TAPIA, PT Service: ? Author Type: Physical Therapist Type: Progress Notes Filed: 08/31/2024 15:18 Note Text: Episode Visit Count: 5 Therapist That Will Accept/Oversee The Plan Of Care: Shara Tapia PT Start of Care Date: 08/10/24 Onset Date: 04/20/20 (approx date) Plan of Care Certification Date: 08/10/24 Next Certification Due Date: 11/08/24 REHABILITATION AND SPORTS THERAPY PHYSICAL THERAPY TREATMENT NOTE ASSESSMENT: Lou Oliver tolerated the session with no issues. She demonstrated increased tremors RLE and Lhand due to forgetting her PD medicine. The patient will continue to benefit from ongoing skilled physical therapy to progress toward set goals. PLAN FOR NEXT VISIT: Progress PD specific exercise and balance activities. SUBJECTIVE: Pt states she forgot her PD meds at home. Pain: OBJECTIVE MEASURES WITH LEVEL OF FUNCTION: TREATMENT: Therapeutic Exercise: 1: Heelcord stretch on slant boared hold 60 sec. 2: NuStep L 5 x 5 min for neuro priming with assist to transfer on/off equip and for set up. Skilled Intervention: Patient was educated in proper exercise technique and purpose for exercises. Skilled judgment was used in selection of appropriate interventions. Neuromuscular Re-Education: 1: *Seated forward reach, down, up and out with 10 sec hold x 5 reps. 2: *Seated lateral step and reach 5x ea hold 10 sec. 3: *Forward and lateral step and reach with 1 UE support 8x ea. 4: *Backward step and reach with 1 UE support. 5: *Standing trunk rot with [address] support [address] 6: *Forward rock and reach with 1 UE support 10x ea. 7: *Large amplitude sit to stand 5x Skilled Intervention: Skilled judgment used to assess appropriate program for balance and coordination activity. Billing Therapeutic Exercise Treatment Minutes: 8 Neuromuscular Re-Education Treatment Minutes: 37 Skilled Treatment Time Minutes (timed and untimed codes): 45 Total Session Time (minutes): 45 Session Start Time : 1430 Session Stop Time : 151 Shara Tapia PT [facility] 08-31-2024 History of Present illness Narrative Episode Visit Count: 5 Therapist That Will Accept/Oversee The Plan Of Care: Shara Tapia PT Start of Care Date: 08/10/24 Onset Date: 04/20/20 (approx date) Plan of Care Certification Date: 08/10/24 Next Certification Due Date: 11/08/24 REHABILITATION AND SPORTS THERAPY PHYSICAL THERAPY TREATMENT NOTE ASSESSMENT: Lou Oliver tolerated the session with no issues. She demonstrated increased tremors RLE and Lhand due to forgetting her PD medicine. The patient will continue to benefit from ongoing skilled physical therapy to progress toward set goals. PLAN FOR NEXT VISIT: Progress PD specific exercise and balance activities. SUBJECTIVE: Pt states she forgot her PD meds at home. Pain: OBJECTIVE MEASURES WITH LEVEL OF FUNCTION: TREATMENT: Therapeutic Exercise: 1: Heelcord stretch on slant boared hold 60 sec. 2: NuStep L 5 x 5 min for neuro priming with assist to transfer on/off equip and for set up. Skilled Intervention: Patient was educated in proper exercise technique and purpose for exercises. Skilled judgment was used in selection of appropriate interventions. Neuromuscular Re-Education: 1: *Seated forward reach, down, up and out with 10 sec hold x 5 reps. 2: *Seated lateral step and reach 5x ea hold 10 sec. 3: *Forward and lateral step and reach with 1 UE support 8x ea. 4: *Backward step and reach with 1 UE support. 5: *Standing trunk rot with 1 UE support 10x e[address] way 6: *Forward rock and reach with 1 UE support 10x ea. 7: *Large amplitude sit to stand 5x Skilled Intervention: Skilled judgment used to assess appropriate program for balance and coordination activity. Billing Therapeutic Exercise Treatment Minutes: 8 Neuromuscular Re-Education Treatment Minutes: 37 Skilled Treatment Time Minutes (timed and untimed codes): 45 Total Session Time (minutes): 45 Session Start Time : 1430 Session Stop Time : 1514 Shara Tapia PT documented in this encounter [facility] 08-25-2024 Note HNO ID: [id number] Author: SHARA TAPIA PT Service: ? Author Type: Physical Therapist Type: Progress Notes Filed: 08/25/2024 12:38 Note Text: Episode Visit Count: 4 Therapist That Will Accept/Oversee The Plan Of Care: Shara Tapia PT Start of Care Date: 08/10/24 Onset Date: 04/20/20 (approx date) Plan of Care Certification Date: 08/10/24 Next Certification Due Date: 11/08/24 REHABILITATION AND SPORTS THERAPY PHYSICAL THERAPY TREATMENT NOTE ASSESSMENT: Lou Oliver tolerated the session with no issues. She demonstrated difficulty with weakness of cervical extensor postural muscles. The patient will continue to benefit from ongoing skilled physical therapy to progress toward set goals. PLAN FOR NEXT VISIT: Progress PD specific exercise and balance activities. SUBJECTIVE: Pt states she gets nauseous every day at 7 pm. She attributes this to her meds. Nausea lasts approximately 1 hour. Advised pt to let Dr Mabry know. Pain: OBJECTIVE MEASURES WITH LEVEL OF FUNCTION: Gait Stairs: Contact Guard Assistance TREATMENT: Therapeutic Exercise: 1: NuStep L 5 x 5 min for neuro priming with assist to transfer on/off equip and for set up. 2: Heelcord stretch on slant boared hold 60 sec. Skilled Intervention: Patient was educated in proper exercise technique and purpose for exercises. Skilled judgment was used in selection of appropriate interventions. Therapeutic Activity: 1: Stepping forward and lateral over 6 pastor in ll bars with UE support prn, CGA, 10x ea bilat 2: Ascended/descended 4 steps x 3 reps and 1 rail CGA. Skilled Intervention: Activity progression based on professional judgment. Neuromuscular Re-Education: 1: Tandem stance 2: Stepping stones in ll bars without UE support CGA 3: 7 step to 10x ea 4: Forward and lateral step and reach 10x ea bilat 5: Forward rock and reach 10x ea 6: Neuro gait training without device with cues for upright posture 350 ft, and an additional 175 ft with walking poles. Skilled Intervention: Skilled judgment used to assess appropriate program for balance and coordination activity. Billing Therapeutic Exercise Treatment Minutes: 6 Therapeutic Activity Treatment Minutes: 10 Neuromuscular Re-Education Treatment Minutes: 24 Skilled Treatment Time Minutes (timed and untimed codes): 40 Total Session Time (minutes): 40 Session Start Time : 1150 Session Stop Time : 1230 Shara Tapia, PT [facility] 08-25-2024 History of Present illness Narrative Episode Visit Count: 4 Therapist That Will Accept/Oversee The Plan Of Care: Shara Tapia PT Start of Care Date: 08/10/24 Onset Date: 04/20/20 (approx date) Plan of Care Certification Date: 08/10/24 Next Certification Due Date: 11/08/24 REHABILITATION AND SPORTS THERAPY PHYSICAL THERAPY TREATMENT NOTE ASSESSMENT: Lou Oliver tolerated the session with no issues. She demonstrated difficulty with weakness of cervical extensor postural muscles. The patient will continue to benefit from ongoing skilled physical therapy to progress toward set goals. PLAN FOR NEXT VISIT: Progress PD specific exercise and balance activities. SUBJECTIVE: Pt states she gets nauseous every day at 7 pm. She attributes this to her meds. Nausea lasts approximately 1 hour. Advised pt to let Dr Mabry know. Pain: OBJECTIVE MEASURES WITH LEVEL OF FUNCTION: Gait Stairs: Contact Guard Assistance TREATMENT: Therapeutic Exercise: 1: NuStep L 5 x 5 min for neuro priming with assist to transfer on/off equip and for set up. 2: Heelcord stretch on slant boared hold 60 sec. Skilled Intervention: Patient was educated in proper exercise technique and purpose for exercises. Skilled judgment was used in selection of appropriate interventions. Therapeutic Activity: 1: Stepping forward and lateral over 6 pastor in ll bars with UE support prn, CGA, 10x ea bilat 2: Ascended/descended 4 steps x 3 reps and 1 rail CGA. Skilled Intervention: Activity progression based on professional judgment. Neuromuscular Re-Education: 1: Tandem stance 2: Stepping stones in ll bars without UE support CGA 3: 7 step to 10x ea 4: Forward and lateral step and reach 10x ea bilat 5: Forward rock and reach 10x ea 6: Neuro gait training without device with cues for upright posture 350 ft, and an additional 175 ft with walking poles. Skilled Intervention: Skilled judgment used to assess appropriate program for balance and coordination activity. Billing Therapeutic Exercise Treatment Minutes: 6 Therapeutic Activity Treatment Minutes: 10 Neuromuscular Re-Education Treatment Minutes: 24 Skilled Treatment Time Minutes (timed and untimed codes): 40 Total Session Time (minutes): 40 Session Start Time : 1150 Session Stop Time : 1230 Shara Tapia PT documented in this encounter [facility] 08-24-2024 Note HNO ID: [id number] Author: SHARA TAPIA PT Service: ? Author Type: Physical Therapist Type: Progress Notes Filed: 08/24/2024 10:44 Note Text: Episode Visit Count: 3 Therapist That Will Accept/Oversee The Plan Of Care: Shara Tapia PT Start of Care Date: 08/10/24 Onset Date: 04/20/20 (approx date) Plan of Care Certification Date: 08/10/24 Next Certification Due Date: 11/08/24 REHABILITATION AND SPORTS THERAPY PHYSICAL THERAPY TREATMENT NOTE ASSESSMENT: Lou Oliver tolerated the session with no issues. She demonstrated difficulty with maintaining postural alignment. The patient will continue to benefit from ongoing skilled physical therapy to progress toward set goals. PLAN FOR NEXT VISIT: Progress PD specific exercise and balance activities. SUBJECTIVE: Pt reports no fainting episodes since before the last visit. Presents today with abdominal binder. Pain: OBJECTIVE MEASURES WITH LEVEL OF FUNCTION: Posture / Alignment Posture: Forward head, Rounded shoulders (retrograde trunk) Vitals BP: 116/69 (seated, standing 92/51) TREATMENT: Therapeutic Exercise: 1: NuStep L 5 x 5 min for neuro priming with assist to transfer on/off equip and for set up. 2: Heelcord stretch on slant boared hold 60 sec. Skilled Intervention: Patient was educated in proper exercise technique and purpose for exercises. Skilled judgment was used in selection of appropriate interventions. Therapeutic Activity: 1: Stepping forward and lateral over 6 pastor in ll bars with UE support prn, CGA. 2: Practiced standing with best posture with cues to correct retrograde trunk. 3: 6 step to 10x ea 4: Mini squats 10x Skilled Intervention: Activity progression based on professional judgment. Neuromuscular Re-Education: 1: Tandem stance 2: SLS 3: Rockerboard A/P and lat wt shifts 4: Forward and lateral step and reach 10x ea bilat 5: Forward rock and reach 10x ea Skilled Intervention: Skilled judgment used to assess appropriate program for balance and coordination activity. Billing Therapeutic Exercise Treatment Minutes: 6 Therapeutic Activity Treatment Minutes: 14 Neuromuscular Re-Education Treatment Minutes: 25 Skilled Treatment Time Minutes (timed and untimed codes): 45 Total Session Time (minutes): 45 Session Start Time : 929 Session Stop Time : 1015 Shara Tapia, PT [facility] 08-24-2024 History of Present illness Narrative Episode Visit Count: 3 Therapist That Will Accept/Oversee The Plan Of Care: Shara Tapia PT Start of Care Date: 08/10/24 Onset Date: 04/20/20 (approx date) Plan of Care Certification Date: 08/10/24 Next Certification Due Date: 11/08/24 REHABILITATION AND SPORTS THERAPY PHYSICAL THERAPY TREATMENT NOTE ASSESSMENT: Lou Oliver tolerated the session with no issues. She demonstrated difficulty with maintaining postural alignment. The patient will continue to benefit from ongoing skilled physical therapy to progress toward set goals. PLAN FOR NEXT VISIT: Progress PD specific exercise and balance activities. SUBJECTIVE: Pt reports no fainting episodes since before the last visit. Presents today with abdominal binder. Pain: OBJECTIVE MEASURES WITH LEVEL OF FUNCTION: Posture / Alignment Posture: Forward head, Rounded shoulders (retrograde trunk) Vitals BP: 116/69 (seated, standing 92/51) TREATMENT: Therapeutic Exercise: 1: NuStep L 5 x 5 min for neuro priming with assist to transfer on/off equip and for set up. 2: Heelcord stretch on slant boared hold 60 sec. Skilled Intervention: Patient was educated in proper exercise technique and purpose for exercises. Skilled judgment was used in selection of appropriate interventions. Therapeutic Activity: 1: Stepping forward and lateral over 6 pastor in ll bars with UE support prn, CGA. 2: Practiced standing with best posture with cues to correct retrograde trunk. 3: 6 step to 10x ea 4: Mini squats 10x Skilled Intervention: Activity progression based on professional judgment. Neuromuscular Re-Education: 1: Tandem stance 2: SLS 3: Rockerboard A/P and lat wt shifts 4: Forward and lateral step and reach 10x ea bilat 5: Forward rock and reach 10x ea Skilled Intervention: Skilled judgment used to assess appropriate program for balance and coordination activity. Billing Therapeutic Exercise Treatment Minutes: 6 Therapeutic Activity Treatment Minutes: 14 Neuromuscular Re-Education Treatment Minutes: 25 Skilled Treatment Time Minutes (timed and untimed codes): 45 Total Session Time (minutes): 45 Session Start Time : 929 Session Stop Time : 1014 Shara Tapia PT documented in this encounter [facility] 08-18-2024 Note HNO ID: [id number] Author: SHARA TAPIA PT Service: ? Author Type: Physical Therapist Type: Progress Notes Filed: 08/18/2024 17:55 Note Text: Episode Visit Count: 2 Therapist That Will Accept/Oversee The Plan Of Care: Shara Tapia PT Start of Care Date: 08/10/24 Onset Date: 04/20/20 (approx date) Plan of Care Certification Date: 08/10/24 Next Certification Due Date: 11/08/24 REHABILITATION AND SPORTS THERAPY PHYSICAL THERAPY TREATMENT NOTE ASSESSMENT: Lou Oliver tolerated the session with no issues. She demonstrated improvements in car transfer technique. The patient will continue to benefit from ongoing skilled physical therapy to progress toward set goals. PLAN FOR NEXT VISIT: Progress PD specific exercise. SUBJECTIVE: Pt states she fell twice in an hour last Saturday and was hospitalized. No injury reported. Pt reports she was dehydrated and has orthostatic hypotension, blacked out. Pain: OBJECTIVE MEASURES WITH LEVEL OF FUNCTION: 4 Stage Balance Test Narrow base of support (sec): 30 sec Semi-tandem base of support (sec): 30 sec Tandem base of support (sec): 6 sec Single leg stance - right (sec): 3 sec Single leg stance - left (sec): 5 sec TREATMENT: Therapeutic Exercise: 1: NuStep L 5 x 5 min for neuro priming with assist to transfer on/off equip and for set up. 2: UBE 2 min forward, 2 min backward. Skilled Intervention: Patient was educated in proper exercise technique and purpose for exercises. Skilled judgment was used in selection of appropriate interventions. Therapeutic Activity: 1: Simulated car transfers at Nu Step with cues to stand 10 sec to ensure BP prior to walking 2: Practiced handwriting onlined paper. 3: Standing x 1 min against wall with best posture. Skilled Intervention: Activity progression based on professional judgment. Neuromuscular Re-Education: 1: 4 stage balance test. 2: Instructed in flicking for neuro priming. 3: Neuro gait training without device 175 ft with cues for upright posture. Skilled Intervention: Skilled judgment used to assess appropriate program for balance and coordination activity. Billing Therapeutic Exercise Treatment Minutes: 10 Therapeutic Activity Treatment Minutes: 20 Neuromuscular Re-Education Treatment Minutes: 15 Skilled Treatment Time Minutes (timed and untimed codes): 45 Total Session Time (minutes): 45 Session Start Time : 1700 Session Stop Time : 1745 Shara Tapia, PT [facility] 08-18-2024 History of Present illness Narrative Episode Visit Count: 2 Therapist That Will Accept/Oversee The Plan Of Care: Shara Tapia PT Start of Care Date: 08/10/24 Onset Date: 04/20/20 (approx date) Plan of Care Certification Date: 08/10/24 Next Certification Due Date: 11/08/24 REHABILITATION AND SPORTS THERAPY PHYSICAL THERAPY TREATMENT NOTE ASSESSMENT: Lou Oliver tolerated the session with no issues. She demonstrated improvements in car transfer technique. The patient will continue to benefit from ongoing skilled physical therapy to progress toward set goals. PLAN FOR NEXT VISIT: Progress PD specific exercise. SUBJECTIVE: Pt states she fell twice in an hour last Saturday and was hospitalized. No injury reported. Pt reports she was dehydrated and has orthostatic hypotension, blacked out. Pain: OBJECTIVE MEASURES WITH LEVEL OF FUNCTION: 4 Stage Balance Test Narrow base of support (sec): 30 sec Semi-tandem base of support (sec): 30 sec Tandem base of support (sec): 6 sec Single leg stance - right (sec): 3 sec Single leg stance - left (sec): 5 sec TREATMENT: Therapeutic Exercise: 1: NuStep L 5 x 5 min for neuro priming with assist to transfer on/off equip and for set up. 2: UBE 2 min forward, 2 min backward. Skilled Intervention: Patient was educated in proper exercise technique and purpose for exercises. Skilled judgment was used in selection of appropriate interventions. Therapeutic Activity: 1: Simulated car transfers at Nu Step with cues to stand 10 sec to ensure BP prior to walking 2: Practiced handwriting onlined paper. 3: Standing x 1 min against wall with best posture. Skilled Intervention: Activity progression based on professional judgment. Neuromuscular Re-Education: 1: 4 stage balance test. 2: Instructed in flicking for neuro priming. 3: Neuro gait training without device 175 ft with cues for upright posture. Skilled Intervention: Skilled judgment used to assess appropriate program for balance and coordination activity. Billing Therapeutic Exercise Treatment Minutes: 10 Therapeutic Activity Treatment Minutes: 20 Neuromuscular Re-Education Treatment Minutes: 15 Skilled Treatment Time Minutes (timed and untimed codes): 45 Total Session Time (minutes): 45 Session Start Time : 1700 Session Stop Time : 1745 Shara Tapia PT documented in this encounter [facility] 08-10-2024 Note HNO ID: [id number] Author: SHARA TAPIA PT Service: ? Author [...] Goals for Episode of Care: established 08/10/24 [place] in PD specific home exercise program. Improve [...] Planned: 10 Planned Treatment Interventions: Therapeutic exercise (64709), Neuromuscular re-education (43579), Therapeutic activities (28066), Self-residential management (59400), Gait Training (92005), Patient/Family/Caregiver Education, Body Mechanics Training, Functional training, [...] Left Handed: Left Employment: Retired (worked in [employer]) Recreation / Current Exercise: Delay the Disease [...] life. 50th perc (more content not included)... [facility] 08-10-2024 History of Present illness Narrative [...] Goals for Episode of Care: established 08/10/24 [place] in PD specific home exercise program. Improve [...] Planned: 10 Planned Treatment Interventions: Therapeutic exercise (82098), Neuromuscular re-education (38412), Therapeutic activities (55900), Self-residential management (02952), Gait Training (61421), Patient/Family/Caregiver Education, Body Mechanics Training, Functional training, [...] Left Handed: Left Employment: Retired (worked in [place]) Recreation / Current Exercise: Delay the Disease [...] 1150 Session Stop Time : 1245 Shara Tapia, PT documented in this encounter [facility] 07-31-2024 History of Present illness Narrative [facility] - FOLLOW UP EVALUATION Shola Bravophu [address] [place] [address] Lucía Rizzo MD [address] [facility] [address] I had the pleasure of seeing Ms. [...] [place] and willing to take her to [place]. Take a break from the more strenuous [...] please feel free to send me a [employer] message or contact the office - Parkinson's PT - For the BP - continue midodrine and Florinef. Increase fluids. Discussed other conservative treatment Interested in clinical research? Not discussed Updated Movement Disorders Medication Schedule: Medications 7 11 3 7 11 Sinemet IR 25/100 1 2 1.5 1 Sinemet CR 50/200 1 1 Return at or around: 10/31/24 Level of service : 00982 (40-68 min). Time spent 49 min on the day of service, which included preparing to see the patient, qeds-bf-yipt patient care, completing clinical documentation, obtaining and/or reviewing separately obtained history, and counseling and educating the patient/family/caregiver. Thank you for allowing me to be part of the clinical care of this patient! I look forward to continued participation in the patient s care with you. Please do not hesitate to call with any questions. Sincerely, Sayra Mabry MD documented in this encounter [facility] 07-31-2024 Instructions Sayra Mabyr MD - 07/31/2024 10:14 AM EDT Images [...] future constipation. Treatments fall into two categories: okop-nee-imicjve and prescription therapies. Remember: consult with your [...] day and your own convenience and preference. Wnuk-nvk-Tpzrlxw Products Flrp-ggr-hdqfyqo treatments for constipation can be purchased at [...] It also comes as a capsule (Senna [place] Smooth Move ). ving with PD Constipation [...] easier to pass. These can be used long-term but should not be used in combination [...] after other remedies have failed. Among the adng-eem-rnjsmee laxatives, they are most likely to cause [...] psyllium (Perdiem ). Common Side Effects of Ynhs-pyq-Ptifadv Products for Constipation Emollient (Stool Softeners) Skin [...] any side effects listed. Prescription Products When crpm-obv-ikqjcdz remedies fail, your healthcare provider may recommend [...] Stimulant X Bisacodyl (Dulcolax ) Stimulant X [place] Oil Stimulant X Cellulose (Unifiber ) Bulk [...] Docusate (Senokot ) Stimulant X Adapted from: [facility] Website, accessed February 14, 2016, www.[employer]/health/druginfo rmation/ [id number] Special Precautions For your safety, consult your [...] Contributing authors: Hamzah Ha, Ph.D., R.N., and Razia Rogers., C.R.N.P. Constipation Tracker Day/Date Time Food(s) Eaten Activities Emotional Status Stool Description Feel free to photocopy this page and use it throughout the year to track your symptoms and share with your doctor. This is a patient education material provided by the [employer] s [employer]. For more information and resources see https://www.parkinson.org/. [facility] is a Center of Excellence for the [employer] s [facility]. documented in this encounter [facility] 07-23-2024 History of Present illness Narrative Transitional [...] enrolled patient Outreach Summary: Patient discharged from [facility] Discharge date: 07/15/2024 Admitted for: syncope [...] days Care Management partners utilized: N/A Kim Crockett RN July 23, 2024 2:11 PM documented in this encounter [facility] 07-21-2024 History of Present illness Narrative Patient [...] NONOBSTETRIC 09/1982 Dilation & curettage EGD W/O [facility] SPEC VARICIES INJ 11/29/2023 PAST SURGICAL [...] 3 meals a day and with company Lucía Rizzo MD documented in this encounter [facility] 07-16-2024 History of Present illness Narrative Transition Care Management (TCM) Initial Outreach PCP Update / Actionable Items Called and spoke with patient and daughter Hiro. Patient doing well at home, at first [...] discharge report Outreach Summary: Patient discharged from [facility] Discharge date: 07/15/2024 Admitted for: syncope and collapse Readmission Risk: 10 Value-Based Contract: ACO Contact: Contact made with patient: Yes Hi, my name is Kim Crockett RN and I am calling from the [facility] on behalf of your Primary Care Provider, Lucía Rizzo MD. I understand you were recently in the hospital, so I am calling to check in with you to ensure you are feeling well now that you are home. May I ask you a few questions related to your hospital stay and well-being? Yes Spoke to: Patient and Daughter, Hiro Validation: Validated the person spoken to is [...] like to speak with a social work steam cleaner to help give you support for any [...] I will send your request to a museum service scheduler who will contact and assist you with [...] a previously scheduled follow-up appointment, route to [facility] for updated appointment type or to schedule [...] TCM Care Management partners utilized: N/A Kim Crockett RN July 16, 2024 11:49 AM documented in this encounter [facility] 07-15-2024 Telephone encounter Note Patient's daughter presented to office. She has scheduled Patient for 07/31/2024 at 9:30 AM. Arlene Russo [facility] 07-15-2024 Miscellaneous Notes Patient's daughter presented to office. She has scheduled Patient for 07/31/2024 at 9:30 AM. Arlene Russo Patient still admitted. Will contact Patient once discharged. Arlene Russo Patient will need contacted to reschedule appt on 07/14/2024 (Patient admitted to ED). Arlene Russo documented in this encounter [facility] 07-15-2024 Telephone encounter Note Patient still admitted. Will contact Patient once discharged. Arlene Russo [facility] 07-14-2024 Telephone encounter Note Patient will need contacted to reschedule appt on 07/14/2024 (Patient admitted to ED). Arlene Russo [facility] 07-14-2024 Telephone encounter Note Patient fell in the parking lot hitting the back of her head. 911 was called she was taken to [place] ED for Further evaluation. No open areas noted Ice pack applied. [facility] Work Phone: 07-14-2024 Telephone encounter Note Patient fell in parking lot, transported to [place] ED via squad. [facility] 07-14-2024 Miscellaneous Notes Patient fell in the parking lot hitting the back of her head. 911 was called she was taken to [place] ED for Further evaluation. No open areas noted Ice pack applied. documented in this encounter [facility] 07-14-2024 Miscellaneous Notes Patient fell in parking lot, transported to [place] ED via squad. Checked konstantin and dawood patient not present at time of visit documented in this encounter [facility] 07-14-2024 Telephone encounter Note Checked lobby and [place] patient not present at time of visit [facility] 07-02-2024 Note HNO ID: [id number] Author: ANNE-MARIE GHOTRA LPN Service: ? Author [...] and suicidal ideas. The patient is nervous/anxious. [facility] 07-02-2024 History of Present illness Narrative [...] patient is nervous/anxious. [facility] [place] Patient name: Lou Oliver Patient Date [...] Comment: Dilation & curettage 11/29/2023: EGD W/O [facility] SPEC VARICIES [...] palpation of the muscle groups listed above [place] protocol documentation / Pre-Procedure Checklist: Consent: Obtained [...] MD Pain Management [facility] documented in this encounter [facility] 07-02-2024 Note HNO ID: [id number] Author: JAK DIAZ MD Service: ? Author Type: Physician Type: Progress Notes Filed: 07/02/2024 14:20 Note Text: [facility] [place] [facility] Patient name: Lou Oliver Patient Date [...] Comment: Dilation AND curettage 11/29/2023: EGD W/O [facility] SPEC VARICIES INJ 02/1996: PAST SURGICAL [...] palpation of the muscle groups listed above [place] protocol documentation / Pre-Procedure Checklist: Consent: O (more content not included)... [facility] 06-30-2024 Instructions Theresa Hunt APRN.DEALMAKER - 06/30/2024 4:31 PM EDT Ice and heat as tolerated Activity as tolerated documented in this encounter [facility] 06-30-2024 History of Present illness Narrative VIRTUAL VISIT PROGRESS NOTE This is a virtual visit using Audio Only Visit. It required patient-provider interaction for the medical decision making as documented below. I have communicated my name and active licensure. The patient's identity and physical location were verified at the time of this visit. Either the patient or their legal auto service representative has been informed of the risks and benefits of -- and alternatives to -- treatment through a remote evaluation and consents to proceed with the evaluation remotely. [facility] Today's Date: 06/30/2024 Name: Lou Oliver : 1945 Purpose: Follow-up Patient Evaluation - This is an established patient, returning today for continued evaluation and management of the chief complaint noted below Chief complaint: neck pain Referring Clinician: Lucía Rizzo MD Pertinent Past Medical History: Migraine, [...] injection - repeat injection Studies: None Functional Quaker: Advised soft tissue massage Referrals: No additional [...] (Obtained by Jak Diaz M.D.). Referred by Lucía Rizzo MD, for evaluation & management of neck pain Duration: 10 years Sudden onset? no, Trauma? no Prior Treatments: Medications (See below), Modalities (eg. Heat, Ice), Physical Therapy , Home Exercise Program , and Activity Modification PT - 12 visits (04/09/2023 - 06/11/2023) Worked for years at [employer], reports she frequently hunched in her job [...] website checked and validated on 06/30/2024 by Theresa Hunt APRN.DEALMAKER All prescriptions have been APPROPRIATELY filled. No suspicious activity was identified. 05/12/2020 06/22/2021 07/04/2023 06/11/2024 AG SPINE COMBINATION Questionnaire GREENLIGHT GREENLIGHT Completed Date 05/12/2020 07/04/2023 Questionnaire Opiod Risk Tool Opiod Risk Tool Opiod Risk Tool Opiod Risk Tool Completed Date 05/12/2020 06/22/2021 07/04/2023 06/11/2024 Comments 1 (All drug screens are appropriate unless indicated otherwise) Risk Assessment: EVAN-7: 10/22/2023 11/30/2023 03/24/2024 EVAN - 7 SCORES Score 7 7 8 [...] vertebrae with counting from the craniocervical junction. Pot Fluxer: [facility] Transcribe Date/Time: May 10 2020 [...] disease with dyskinesia, unspecified whether manifestations fluctuate ([facility]) PLAN: Lou Oliver would benefit from the [...] ordered in with orders. Studies: None Functional Quaker: Advised soft tissue massage Referrals: No additional [...] current medical decision making from today's date. Theresa Hunt APRN.CNP Pain Management [facility] [place] [facility] documented in this encounter [facility] 06-30-2024 Note HNO ID: [id number] Author: THERESA HUNT APRN.CNP Service: ? Author Type: Nurse [...] visit. Either the patient or their legal auto service representative has been informed of the risks and benefits of -- and alternatives to -- treatment through a remote evaluation and consents to proceed with the evaluation remotely. [facility] Today's Date: 06/30/2024 Name: Lou Oliver : 1945 Purpose: Follow-up Patient Evaluation - This is an established patient, returning today for continued evaluation and management of the chief complaint noted below Chief complaint: neck pain Referring Clinician: Lucía Rizzo MD Pertinent Past Medical History: Migraine, [...] injection - repeat injection Studies: None Functional Quaker: Advised soft tissue massage Referrals: No additional [...] (Obtained by Jak Diaz M.D.). Referred by Lucía Rizzo MD, for evaluation AND management of neck pain Duration: 10 years Sudden onset? no, Trauma? no Prior Treatments: Medications (See below), Modalities (eg. Heat, Ice), Physical Therapy , Home Exercise Program , and Activity Modification PT - 12 visits (04/09/2023 - 06/11/2023) Worked for years at [employer], reports she frequently hunched in her job Seen previously (last on ) by an Anesthesia Pain Physician. She had trigger point injections multiple times, without sustained relief. This is her first evaluation by a [facility] Pain Physician. Takes Tylenol OTC, minimal relief Has Parkinson's Treatment History: PAIN PROCEDURES: DATE PROCEDURE IMPROVEMENT 03/19/2024 TPI >50% x 2 months 10/02/2023 RFA, Bilat C4-5 and C5-6 50% (06/11/2024 ) 08/17/2021 TPI 50% relief x 6 weeks MED (more content not included)... [facility] 06-25-2024 History of Present illness Narrative VIRTUAL VISIT FOLLOW UP I have communicated my name and active licensure. The patient's identity and physical location were verified at the time of this visit. Either the patient or their legal auto service representative has been informed of the risks [...] Comment: Dilation & curettage 11/29/2023: EGD W/O [facility] SPEC VARICIES INJ 02/1996: PAST SURGICAL [...] No history of dysuria, frequency or incontinence INVENTORY CONTROL/SHIPPING RECEIVING: Negative for abnormal vaginal bleeding, abnormal vaginal [...] which included preparing to see the patient, [id number] patient care, completing clinical documentation, obtaining and/or reviewing separately obtained history, performing a medically appropriate examination, counseling and educating the patient/family/caregiver, ordering medications, tests, or procedures, communicating with other HCPs (not separately reported), independently interpreting results (not separately reported), communicating results to the patient/family/caregiver, and care coordination (not separately reported). Era Gagnon PA-C June 25, 2024 12:31 PM documented in this encounter [facility] 06-16-2024 History of Present illness Narrative Radiology [...] PATIENT PRESENTS WITH AN IMPLANTABLE OR ATTACHED CLEANING SUPERVISOR: No ALLERGIES: Reviewed and unchanged CONTRAST ALLERGY: NO. EXAM: MRI - CONTRAST TYPE: GROUP II PERIPHERAL IV DATA: Ambulatory: A peripheral IV was started in the Left antecubital site with a Angio cath: 22 gauge. RADIOLOGY DEPARTMENT: MR; Exam(s) Completed: Head: Routine Brain SIGNATURE: RT Radha(Sonal) PATIENT NAME: Lou Oliver DATE: June 16, 2024 TIME: 10:16 AM documented in this encounter [facility] 06-11-2024 Note HNO ID: [id number] Author: KAISER AG LPN Service: ? Author Type: LICENSED [...] and suicidal ideas. The patient is nervous/anxious. [facility] 06-11-2024 History of Present illness Narrative [...] not included. [facility] Today's Date: 06/11/2024 Name: Lou Oliver : 1945 Purpose: Follow-up Patient Evaluation - This is an established patient, returning today for continued evaluation and management of the chief complaint noted below Chief complaint: neck pain Referring Clinician: Lucía Rizzo MD Pertinent Past Medical History: Migraine, Lt. Knee pain, Parkinson disease, Neck pain, Intracranial meningioma, HTN, HLD, Tachycardia, Hypothyroidism, Cervical spondylosis, Anxiety, Pes anserinus bursitis of left knee, Neck muscle weakness, Spinal stenosis of cervical region, Pertinent Past Surgeries: none 04/30/2024 - Theresa Hunt APRN.DEALMAKER Patient stating her pain is currently managed. [...] groups): cervical paraspinals, upper traps, bilaterally Functional Quaker: Advised soft tissue massage Follow-up: 3 months [...] (Obtained by Jak Diaz M.D.). Referred by Lucía Rizzo MD, for evaluation & management of neck pain Duration: 10 years Sudden onset? no, Trauma? no Prior Treatments: Medications (See below), Modalities (eg. Heat, Ice), Physical Therapy , Home Exercise Program , and Activity Modification PT - 12 visits (04/09/2023 - 06/11/2023) Worked for years at a [employer], reports she frequently hunched in her job [...] are appropriate unless indicated otherwise) Risk Assessment: EVAN-7: 10/22/2023 11/30/2023 03/24/2024 EVAN - 7 SCORES Score 7 7 8 [...] vertebrae with counting from the craniocervical junction. Pot Fluxer: [facility] Transcribe Date/Time: May 10 2020 [...] Increased 3+ and symmetric biceps, triceps, brachioradialis Eisebnerg: Negative (Normal) bilaterally Musculoskeletal-Upper: Inspection: Symmetric without [...] injection - repeat injection Studies: None Functional Quaker: Advised soft tissue massage Referrals: No additional [...] MD Pain Management [facility] documented in this encounter [facility] 06-10-2024 Note HNO ID: [id number] Author: JAK DIAZ MD Service: ? Author Type: Physician Type: Progress Notes Filed: 06/11/2024 14:38 Note Text: [facility] Today's Date: 06/11/2024 Name: Lou Oliver : 1945 Purpose: Follow-up Patient Evaluation - This is an established patient, returning today for continued evaluation and management of the chief complaint noted below Chief complaint: neck pain Referring Clinician: Lucía Rizzo MD Pertinent Past Medical History: Migraine, Lt. Knee pain, Parkinson disease, Neck pain, Intracranial meningioma, HTN, HLD, Tachycardia, Hypothyroidism, Cervical spondylosis, Anxiety, Pes anserinus bursitis of left knee, Neck muscle weakness, Spinal stenosis of cervical region, Pertinent Past Surgeries: none 04/30/2024 - Theresa Hunt APRN.DEALMAKER Patient stating her pain is currently managed. [...] groups): cervical paraspinals, upper traps, bilaterally Functional Quaker: Advised soft tissue massage Follow-up: 3 months [...] (Obtained by Jak Diaz M.D.). Referred by Lucía Rizzo MD, for evaluation AND management of neck pain Duration: 10 years Sudden onset? no, Trauma? no Prior Treatments: Medications (See below), Modalities (eg. Heat, Ice), Physical Therapy , Home Exercise Program , and Activity Modification PT - 12 visits (04/09/2023 - 06/11/2023) Worked for years at a [employer], reports she frequently hunched in her job Seen previously (last on ) by an Anesthesia Pain Physician. She had trigger point injections multiple times, without sustained relief. This is her [facility] evaluation by a [facility]. Takes Tylenol OTC, minimal relief Has Parkinson's (more content not included)... [facility] 06-05-2024 History of Present illness Narrative [...] optometry/ophthalmology Assessment/Plan Medicare annual wellness visit, subsequent (.) - Counseled on healthy diet and regular [...] Comment: Dilation & curettage 11/29/2023: EGD W/O [facility] SPEC VARICIES [...] ICD9: 266.2, ICD10: E53.8 - VITAMIN B12 Lucía Rizzo MD documented in this encounter [facility] 06-03-2024 Telephone encounter Note Patient reports she [...] Scheduled appt for Saturday of this week. [facility] 06-03-2024 Miscellaneous Notes Patient reports she was [...] of this week. documented in this encounter [facility] 05-15-2024 Telephone encounter Note Prescription Refill Information [...] Take on empty stomach. For Thyroid Sherita Vieira [facility] May 15, 2024 10:46 AM [facility] 05-15-2024 Miscellaneous Notes Prescription Refill Information The [...] Take on empty stomach. For Thyroid Sherita Ochoa May 15, 2024 10:46 AM documented in this encounter [facility] 05-04-2024 History of Present illness Narrative Images from the original note were not included. Subjective The history is provided by the patient. No video software engineer was used. Patient presents with: Rash: left [...] Brissa Young APRN.ADRIANNA documented in this encounter [facility] 05-04-2024 Instructions Brissa Young APRN.CNP - 05/04/2024 11:28 AM EDT Zyrtec or claritin 10 mg By mouth daily at bedtime Start Triamcinolone 0.1% ointment twice daily for itch, do not use near eye Pataday eye drops as needed for itching Benadryl srpay as needed Keep rash clean and dry. Allow to dry out. documented in this encounter [facility] 05-01-2024 Telephone encounter Note Patient was called and spoken with. She was confused when she was scheduled for her next appointment since they didn't schedule her tpi. Patient was wondering if Theresa thinks she needs more injections since she benefots from them.? Patient is scheduled to come in on 06/[address] Diaz for 3 mos follow up and was wondering if she has to wait until then to Dr. Diaz or if an order could be placed now if Theresa so she can be scheduled for that and maybe get it done when she come in? Jade Collins [facility] 05-01-2024 Miscellaneous Notes Patient was called and spoken with. She was confused when she was scheduled for her next appointment since they didn't schedule her tpi. Patient was wondering if Theresa thinks she needs more injections since she benefots from them.? Patient is scheduled to come in on 06/[address] Diaz for 3 mos follow up and was wondering if she has to wait until then to Dr. Diaz or if an order could be placed now if Theresa so she can be scheduled for that and maybe get it done when she come in? Jade Collins ----- Message from Diane Chairezdrew sent at 04/30/2024 4:52 PM EDT ----- Regarding: Spine & Pain / Prebish, Theresa (DEALMAKER) / Procedure / Injection Spine & Pain / Prebish, Theresa (DEALMAKER) / Procedure / Injection Patient: Lou Oliver Date of : 1945 Primary Care Provider: Lucía Rizzo MD Patient has been identified by name and Date of (Y/N): y Patient: Lou Oliver Date of : 1945 Provider for this encounter: Lucía Rizzo MD Reason for the call/escalation: Patient saw Theresa Hunt but wanted to know if she needs to set up her next TPI. She would like a call back to discuss this Was Patient Referred to [facility]/Seek Emergency Treatment (Y/N): n Did Patient Agree (Y/N): n.a Was An Attempt Made To Transfer The Patient To The Office (Y/N): n Were You Able To Reach Someone At The Office (Y/N): n.a If Yes - Patient Was Transferred To (Caregivers Name): n.a If No - Which [facility] Leadership Practice Support Specialist Did You Speak With Regarding This Patient: n.a Was an appointment scheduled (Y/N): n Reason patient was requesting visit (RFV/signs and symptoms/diagnosis) : injection Person calling if other than patient: self Return call to if other than patient: self Best contact number: [phone] Thank you, Diane Haji April 30, 2024 4:53 PM documented in this encounter [facility] 05-01-2024 Telephone encounter Note ----- Message from Diane aRissa sent at 04/30/2024 4:52 PM EDT ----- Regarding: Spine & Pain / Prebish, Theresa (DEALMAKER) / Procedure / Injection Spine & Pain / Prebish, Theresa (DEALMAKER) / Procedure / Injection Patient: Lou Oliver Date of : 1945 Primary Care Provider: Lucía Rizzo MD Patient has been identified by name and Date of (Y/N): y Patient: Lou Oliver Date of : 1945 Provider for this encounter: Lucía Rizzo MD Reason for the call/escalation: Patient saw Theresa Juliana but wanted to know if she needs to set up her next TPI. She would like a call back to discuss this Was Patient Referred to [facility]/Seek Emergency Treatment (Y/N): n Did Patient Agree (Y/N): n.a Was An Attempt Made To Transfer The Patient To The Office (Y/N): n Were You Able To Reach Someone At The Office (Y/N): n.a If Yes - Patient Was Transferred To (Caregivers Name): n.a If No - Which [facility] Leadership Practice Support Specialist Did You Speak With Regarding This Patient: n.a Was an appointment scheduled (Y/N): n Reason patient was requesting visit (RFV/signs and symptoms/diagnosis) : injection Person calling if other than patient: self Return call to if other than patient: self Best contact number: [phone] Thank you, Diane Haji April 30, 2024 4:53 PM [facility] 04-30-2024 Telephone encounter Note LVM with patient to call back/frederick. 2 month follow up. Zoltan Gomez [facility] 04-30-2024 Miscellaneous Notes LVM with patient to call back/[facility]. 2 month follow up. Zoltan Gomez documented in this encounter [facility] 04-30-2024 Instructions Theresa Hunt APRN.CNP - 04/30/2024 10:27 AM EDT Ice and heat as tolerated Activity as tolerated documented in this encounter [facility] 04-30-2024 History of Present illness Narrative Images from the original note were not included. VIRTUAL VISIT PROGRESS NOTE This is a virtual visit using [employer] Video Visit. It required patient-provider interaction for the medical decision making as documented below. I have communicated my name and active licensure. The patient's identity and physical location were verified at the time of this visit. Either the patient or their legal auto service representative has been informed of the risks and benefits of -- and alternatives to -- treatment through a remote evaluation and consents to proceed with the evaluation remotely. [facility] Today's Date: 04/30/2024 Name: Lou Oliver [...] greater degree than the surrounding area): YES Machine Puller Needed: Trigger Point Injections - NO Anticoagulant - Hold Needed: N/A (Not currently on Anticoagulants) Anticoagulant - Currently Taking: None Allergies (relevant): None Scheduling - Mobility (Can Patient independently transfer on/off an OR or Procedure table?): YES (May schedule at any location) Scheduling - Additional Info: None Studies: None Functional Quaker: Advised soft tissue massage Referrals: No additional [...] (Obtained by Jak Diaz M.D.). Referred by Lucía Rizzo MD, for evaluation & management of neck pain Duration: 10 years Sudden onset? no, Trauma? no Prior Treatments: Medications (See below), Modalities (eg. Heat, Ice), Physical Therapy , Home Exercise Program , and Activity Modification PT - 12 visits (04/09/2023 - 06/11/2023) Worked for years at [employer], reports she frequently hunched in her job [...] website checked and validated on 04/30/2024 by Theresa Hunt APRN.DEALMAKER All prescriptions have been APPROPRIATELY filled. No suspicious activity was identified. 05/12/2020 06/22/2021 07/04/2023 AG SPINE COMBINATION Questionnaire GREENLIGHT GREENLIGHT Completed Date 05/12/2020 07/04/2023 Questionnaire Opiod Risk Tool Opiod Risk Tool Opiod Risk Tool Completed Date 05/12/2020 06/22/2021 07/04/2023 (All drug screens are appropriate unless indicated otherwise) Risk Assessment: EVAN-7: 10/22/2023 11/30/2023 03/24/2024 EVAN - 7 SCORES Score 7 7 8 [...] DATE OF EXAM: May 10 2020 8:15AM [id number] - MRI CERVICAL SPINE WO IVCON [...] vertebrae with counting from the craniocervical junction. Pot Fluxer: [facility] Transcribe Date/Time: May 10 2020 8:36A Dictated by : MARIS REMY MD This examination was interpreted and the report reviewed and electronically signed by: MARIS REYM MD on May 10 2020 8:46AM EST [...] unspecified whether manifestations fluctuate (HCC) PLAN: Lou Olivier Melody would benefit from the following to reach personal goals for decreasing pain, improving function and work participation, and/or improving quality of life: Medications: Ibuprofen Gel Caps 400mg BID PRN (prefer smaller pills given issues swallowing, but Mobic contraindicated due to Sulfa allergy) Neurontin 100mg BID (Neurology) Lidocaine patches, 2 daily, #60 - using OTC Interventional Procedures: none Studies: None Functional Quaker: Advised soft tissue massage Referrals: No additional [...] current medical decision making from today's date. Theresa Hunt APRN.CNP Pain Management [facility] [place] [facility] documented in this encounter [facility] 04-30-2024 Note HNO ID: [id number] Author: THERESA HUNT APRN.CNP Service: ? Author Type: Nurse Practitioner Type: Progress Notes Filed: 04/30/2024 10:27 Note Text: VIRTUAL VISIT PROGRESS NOTE This is a virtual visit using FilmTrackt Zoom Video Visit. It required patient-provider interaction for the medical decision making as documented below. I have communicated my name and active licensure. The patient's identity and physical location were verified at the time of this visit. Either the patient or their legal auto service representative has been informed of the risks and benefits of -- and alternatives to -- treatment through a remote evaluation and consents to proceed with the evaluation remotely. [facility] Today's Date: 04/30/2024 Name: Lou Oliver : [...] greater degree than the surrounding area): YES Machine Puller Needed: Trigger Point Injections - NO Anticoagulant - Hold Needed: N/A (Not currently on Anticoagulants) Anticoagulant - Currently Taking: None Allergies (relevant): None Scheduling - Mobility (Can Patient independently transfer on/off an OR or Procedure table?): YES (May schedule at any location) Scheduling - Additional Info: None Studies: None Functional Quaker: Advised soft tissue massage Referrals: No additional [...] (Obtained by Jak Diaz M.D.). Referred by Lucía Rizzo MD, for evaluation AND management of neck pain Duration: 10 years Sudden onset? no, Trauma? no Prior Treatments: Medications (See below), Modalities (eg. Heat, Ice), Physical Therapy , Home Exercise Program , and Activity Modification PT - 12 visits (04/09/2023 - 06/11/2023) Work (more content not included)... [facility] 03-25-2024 Instructions Sayra Mabry MD - [...] or you can send a message through Asurvest. You can also now schedule and select appointments through Asurvest. Sayra Mabry MD Guidelines for the Treatment [...] increase blood pressure. documented in this encounter [facility] 03-25-2024 History of Present illness Narrative [facility] - NEW PATIENT EVALUATION Sandra Centeno [address] [id number] Lucía Rizzo MD [address] [facility] [id number] Dear Ms. Centeno: Thank you for referring Ms. Oliver to [...] Exercises regularly at PD exercise classes in [place]. Active her whole life. Movement Disorders Medications [...] 10 usually representing moderate (10-14) depression. Anxiety: EVAN-7 Total Score: 8 usually representing mild (5-9) [...] mouth two times a day. methylPREDNISolone (MEDROL, KATHARINA,) 4 mg Dose-Pack Follow [...] spec when pfrmd (06/17/2019); and egd [facility] spec varicies inj (11/29/2023). Social History [...] Objective Vital Signs: Ht 162.6 cm (5' 4) Wt 56.9 kg (125 lb 7.1 oz) SpO2 96% BMI 21.53 kg/m Orthostatic Vitals: Sitting: BP 100/62 Pulse 73 Standing: BP 94/59 Pulse 86 Weight: 56.9 kg (125 lb 7.1 oz) Height: 162.6 cm (5' 4) No LMP recorded. Patient is postmenopausal. Body [...] service: Est level 5 + 2 units 33603 (>55 min, [id number] for each 15 min > 40). Time spent 70 min on the day of service, which included preparing to see the patient, [id number]-iwwn patient care, completing clinical documentation, obtaining and/or reviewing separately obtained history, and counseling and educating the patient/family/caregiver. Thank you for allowing me to be part of the clinical care of this patient! I look forward to continued participation in the patient s care with you. Please do not hesitate to call with any questions. Sincerely, Sayra Mabry MD documented in this encounter [facility] 03-23-2024 Instructions Era Gagnon PA-C - 03/23/2024 11:23 AM EDT Contact me if no improvement with Colace twice daily documented in this encounter [facility] 03-23-2024 History of Present illness Narrative CHIEF [...] of Helicobacter pylori on routine staining. Colon 2019 Impression: - Diverticulosis in the [...] NONOBSTETRIC 09/1982 Dilation & curettage EGD W/O [facility] SPEC VARICIES INJ 11/29/2023 PAST SURGICAL [...] 112/70 Pulse 76 Ht 162.6 cm (5' 4) Wt 57.3 kg (126 lb 6.4 oz) [...] which included preparing to see the patient, efqe-dm-imoc patient care, completing clinical documentation, obtaining and/or reviewing separately obtained history, performing a medically appropriate examination, counseling and educating the patient/family/caregiver, ordering medications, tests, or procedures, communicating with other HCPs (not separately reported), independently interpreting results (not separately reported), communicating results to the patient/family/caregiver, and care coordination (not separately reported). Era Gagnon PA-C March 23, 2024 11:20 AM documented in this encounter [facility] 03-22-2024 History of Present illness Narrative Subjective Patient has rash yet under left eye and on right side and neck. Says it is itchy. Says she had an some poison dana. Patient also complains of a sore throat. [place] any other symptoms. The history is provided by the patient. No video software engineer was used. Hives Review of Systems Constitutional: [...] NONOBSTETRIC 09/1982 Dilation & curettage EGD W/O [facility] SPEC VARICIES INJ 11/29/2023 PAST SURGICAL [...] okay with this care plan. Oc Rose APRN.ADRIANNA documented in this encounter [facility] 03-19-2024 Instructions Theresa Hunt APRN.CNP - 03/19/2024 2:23 PM EDT [...] care and why. documented in this encounter [facility] 03-19-2024 Note HNO ID: [id number] Author: BEULAH HUYNH MA Service: ? Author Type: Deputy Director Of Nursing Type: Progress Notes Filed: 03/19/2024 14:23 Note [...] for suicidal ideas. The patient is nervous/anxious. [facility] 03-19-2024 History of Present illness Narrative [...] patient is nervous/anxious. documented in this encounter [facility] 03-19-2024 Note HNO ID: [id number] Author: THERESA HUNT APRN.CNP Service: ? Author Type: Nurse Practitioner Type: Procedures Filed: 03/19/2024 14:23 Note Text: [facility] [place] [facility] Patient name: Lou Oliver Patient Date of : 1945 Today's Date: 03/18/2024 Provider performing procedure: Theresa Hunt APRN.DEALMAKER Procedure: bilateral cervical paraspinals, upper trapezius Trigger [...] weeks to discuss results of the TPI [place] protocol documentation / Pre-Procedure Checklist: Consent: Obtained verbally prior to procedur (more content not included)... [facility] 03-19-2024 Procedure note [facility] [place] [facility] Patient name: Lou Oliver Patient Date of : 1945 Today's Date: 03/18/2024 Provider performing procedure: Theresa Hunt APRN.CNP Procedure: bilateral cervical paraspinals, upper [...] weeks to discuss results of the TPI [place] protocol documentation / Pre-Procedure Checklist: Consent: Obtained [...] written instructions was offered to the patient. Theresa Hunt APRN.ADRIANNA Pain Management [facility] [place] [facility] 03-19-2024 Procedure note [facility] [place] [facility] Patient name: Lou Oliver Patient Date of : 1945 Today's Date: 03/18/2024 Provider performing procedure: Theresa Hunt APRN.DEALMAKER Procedure: bilateral cervical paraspinals, upper trapezius Trigger [...] weeks to discuss results of the TPI [place] protocol documentation / Pre-Procedure Checklist: Consent: Obtained [...] written instructions was offered to the patient. Theresa Hunt APRN.ADRIANNA Pain Management [facility] [place] [facility] documented in this encounter [facility] 03-13-2024 Telephone encounter Note Patient returned call and given provider's message below and patient verbalized understanding. Nathalia Gomez RN [facility] 03-13-2024 Miscellaneous Notes Patient returned call and given provider's message below and patient verbalized understanding. S. Wurst RN Left message for patient to return call. Constance Whitfield LPN Please call and let patient know that the antibiotic was changed to Macrobid twice a day for 5 days. Patient should discontinue the other antibiotic. If patient's symptoms do not improve patient needs to follow-up with primary care. documented in this encounter [facility] 03-13-2024 Telephone encounter Note Left message for patient to return call. Constance Whitfield LPN [facility] 03-13-2024 Telephone encounter Note Please call and let patient know that the antibiotic was changed to Macrobid twice a day for 5 days. Patient should discontinue the other antibiotic. If patient's symptoms do not improve patient needs to follow-up with primary care. [facility] 02-27-2024 Note HNO ID: [id number] Author: BEULAH HUYNH MA Service: ? Author Type: Deputy Director Of Nursing Type: Progress Notes Filed: 02/27/2024 13:10 Note [...] suicidal ideas. The patient is not nervous/anxious. [facility] 02-27-2024 History of Present illness Narrative [...] not included. [facility] Today's Date: 02/27/2024 Last visit: 11/28/2023 Name: Lou Oliver : 1945 Purpose: Follow-up Patient Evaluation - This is an established patient, returning today for continued evaluation and management of the chief complaint noted below Chief complaint: neck pain Referring Clinician: Lucía Rizzo MD Pertinent Past Medical History: Migraine, [...] BID Lidocaine patches, 2 daily, #60 Functional Quaker: Advised soft tissue massage Referrals: No additional [...] (Obtained by Jak Diaz M.D.). Referred by Lucía Rizzo MD, for evaluation & management of neck pain Duration: 10 years Sudden onset? no, Trauma? no Prior Treatments: Medications (See below), Modalities (eg. Heat, Ice), Physical Therapy , Home Exercise Program , and Activity Modification PT - 12 visits (04/09/2023 - 06/11/2023) Worked for years at [employer], reports she frequently hunched in her job [...] are appropriate unless indicated otherwise) Risk Assessment: EVAN-7: 07/04/2023 10/22/2023 11/30/2023 EVAN - 7 SCORES Score 8 7 7 [...] vertebrae with counting from the craniocervical junction. Pot Fluxer: DOMENIC Transcribe Date/Time: May 10 2020 8:36A [...] greater degree than the surrounding area): YES Machine Puller Needed: Trigger Point Injections - NO Anticoagulant - Hold Needed: N/A (Not currently on Anticoagulants) Anticoagulant - Currently Taking: None Allergies (relevant): None Scheduling - Mobility (Can Patient independently transfer on/off an OR or Procedure table?): YES (May schedule at any location) Scheduling - Additional Info: None Studies: None Functional Quaker: Advised soft tissue massage Referrals: No additional [...] MD Pain Management [facility] [place] [facility] documented in this encounter [facility] 02-26-2024 Note HNO ID: [id number] Author: JAK DIAZ MD Service: ? Author Type: Physician Type: Progress Notes Filed: 02/27/2024 13:10 Note Text: [facility] Today's Date: 02/27/2024 Last visit: 11/28/2023 Name: Lou Oliver : 1945 Purpose: Follow-up Patient Evaluation - This is an established patient, returning today for continued evaluation and management of the chief complaint noted below Chief complaint: neck pain Referring Clinician: Lucía Rizzo MD Pertinent Past Medical History: Migraine, [...] BID Lidocaine patches, 2 daily, #60 Functional Quaker: Advised soft tissue massage Referrals: No additional [...] (Obtained by Jak Diaz M.D.). Referred by Lucía Rizzo MD, for evaluation AND management of neck pain Duration: 10 years Sudden onset? no, Trauma? no Prior Treatments: Medications (See below), Modalities (eg. Heat, Ice), Physical Therapy , Home Exercise Program , and Activity Modification PT - 12 visits (04/09/2023 - 06/11/2023) Worked for years at [employer], reports she frequently hunched in her job Seen previously (last on ) by an Anesthesia Pain Physician. She had trigger point injections multiple times, without sustained relief. This is her first evaluation by a [facility] Pain Physician. Takes Tylenol OTC, minimal relief Has Parkinson's Treatment History: PAIN PROCEDURES: DATE PROCEDURE IMPROVEMENT 10/02/2023 RFA, Bilat C4-5 and C5-6 >50% (02/27/2024) 08/17/2021 TPI 50% relief x 6 weeks MEDICATIONS Taken TO DATE (for the chief complaint(s)): Neuropathics: Neurontin (Gabapentin) NSAIDS: Naprosyn (Naproxen), Mobic (Meloxicam) Muscle Relaxants: Zanaflex (Tizanidine) (more content not included)... [facility] 01-13-2024 History of Present illness Narrative CC: [...] F) Resp 12 Ht 162.6 cm (5' 4) Wt 59 kg (130 lb) SpO2 99% [...] being. Patient is opting to see Dr. Mabry, Parkinson's specialist, for another opinion. 2. Syncope, [...] symptoms occur. Patient agreeable to treatment plan. Sandra Centeno PA-C documented in this encounter [facility] 12-27-2023 Miscellaneous Notes Patient calling to check if any information from Zhane SHI. Went over my chart message from Zhane SHI, patient said she was exercising again this morning and after stood up and fainted again. Advised to keep well hydrated. Patient said she was going to send her a my chart message back. documented in this encounter [facility] 12-03-2023 Miscellaneous Notes Pt scheduled. Paula Nugent LPN Please try to get pt in with me, or Alberto RIVERA. Also would advise PCP office that it might be best she again have an event monitor. Ranjan Connolly MD ----- Message ----- From: Sandra Centeno PA-C Sent: 12/02/2023 12:23 PM EST To: Zhane Sylvester PA-C; Ranjan Connolly Jr., MD [place]! I just wanted to reach out due to patient having recent syncopal episode last week -- seems to be less frequent than the bouts were previously, but I just worry about her and the fact that she resides alone. Just wanted to send you this FYI in the case her Florinef or Sinemet needed adjusted accordingly. documented in this encounter [facility] 12-02-2023 History of Present illness Narrative Please [...] at her parkinsons exercise class on 11/27/2023. [place] like she was lightheaded prior to. Her [...] F) Resp 12 Ht 162.6 cm (5' 4) Wt 59.9 kg (132 lb) SpO2 100% [...] symptoms occur. Patient agreeable to treatment plan. Sandra Centeno PA-C documented in this encounter [facility] 12-02-2023 Miscellaneous Notes Duplicate. duplicate documented in this encounter [facility] 12-02-2023 Nurse Note Eye doctor is , [facility] due in December for appt documented in this encounter [facility] 11-28-2023 Note HNO ID: [id number] Author: BEULAH HUYNH MA Service: ? Author Type: Deputy Director Of Nursing Type: Progress Notes Filed: 11/28/2023 13:23 Note [...] and suicidal ideas. The patient is nervous/anxious. [facility] 11-28-2023 History of Present illness Narrative [...] not included. [facility] Today's Date: 11/28/2023 Last visit: 07/04/2023 08/13/2023 , 08/28/2023 , 10/31/2023 Name: Lou Oliver : 1945 Purpose: Follow-up Patient Evaluation - This is an established patient, returning today for continued evaluation and management of the chief complaint noted below Chief complaint: neck pain Referring Clinician: Lucía Rizzo MD Pertinent Past Medical History: Migraine, Lt. Knee pain, Parkinson disease, Neck pain, Intracranial meningioma, HTN, HLD, Tachycardia, Hypothyroidism, Cervical spondylosis, Anxiety, Pes anserinus bursitis of left knee, Neck muscle weakness, Spinal stenosis of cervical region, Pertinent Past Surgeries: none 08/13/2023 PHILIPPE Oliver is a 78 year old female [...] BILATERAL SIDES at C4-5 and C5-6 08/28/2023 PHILIPPE Oliver is a 78 year old female [...] has had 2 + MBB 10/31/2023 PHILIPPE Oliver is a 78 year old female [...] Mobic contraindicated due to Sulfa allergy) Functional Quaker: No changes-continue current regimen Depending on response [...] (Obtained by Jak Diaz M.D.). Referred by Lucía Rizzo MD, for evaluation & management of neck pain Duration: 10 years Sudden onset? no, Trauma? no Prior Treatments: Medications (See below), Modalities (eg. Heat, Ice), Physical Therapy , Home Exercise Program , and Activity Modification PT - 12 visits (04/09/2023 - 06/11/2023) Worked for years at [employer], reports she frequently hunched in her job [...] are appropriate unless indicated otherwise) Risk Assessment: EVAN-7: EVAN - 7 SCORES 05/12/2023 07/04/2023 10/22/2023 EVAN-7 Score 12 8 7 (0-4) minimal anxiety, [...] vertebrae with counting from the craniocervical junction. [facility]ux[facility] Transcribe Date/Time: May 10 2020 8:36A Dictated [...] #60 Interventional Procedures: none Studies: None Functional Quaker: Advised soft tissue massage Referrals: No additional [...] medical decision making from today's date. Jak STEVENSONA Pain Management [facility] [place] [facility] documented in this encounter [facility] 11-25-2023 Note HNO ID: [id number] Author: JAK DIAZ MD Service: ? Author Type: Physician Type: Progress Notes Filed: 11/28/2023 13:23 Note Text: [facility] Today's Date: 11/28/2023 Last visit: 07/04/2023 08/13/2023 , 08/28/2023 , 10/31/2023 Name: Lou Aguayo Melody : 1945 Purpose: Follow-up Patient Evaluation - This is an established patient, returning today for continued evaluation and management of the chief complaint noted below Chief complaint: neck pain Referring Clinician: Lucía Rizzo MD Pertinent Past Medical History: Migraine, [...] BILATERAL SIDES at C4-5 and C5-6 08/28/2023 PHILIPPE Dunn Lou Oliver is a 78 year old [...] Mobic contraindicated due to Sulfa allergy) Functional Quaker: No changes-continue current regimen Depending on response [...] C-collar (uses sparingly) (more content not included)... [facility] 10-02-2023 Nurse Note Order has been placed [...] tablePatient s procedure was performed in an [facility] Procedure room. Pause completed at each [...] procedure site, laterality, and allergies Procedure Start: 100 Procedure End: 1025 Machine Puller's Name: HIRO Are you on a blood thinner: NO [...] receive one? NO documented in this encounter [facility] 10-02-2023 History of Present illness Narrative [facility] [place] [facility] Date: 10/02/2023 Patient name: Lou Oliver Physician [...] or double vision) Respiratory: Negative (No Cough, Nwwdhrtmw-ao-tnwjhx, Dyspnea on exertion, wheezing) Cardiovascular: Negative (No [...] appropriate Assessment and Plan: As noted above [place] protocol documentation / Pre-Procedure Checklist: Consent: Obtained [...] MBA Pain Management [facility] [place] [facility] Review of Systems Constitutional: Positive for activity [...] patient is nervous/anxious. documented in this encounter [facility] 10-02-2023 Instructions Nicole Flores LPN - 10/02/2023 [...] care and why. documented in this encounter [facility] 09-17-2023 Note HNO ID: [id number] Author: Nano Schuster CCC-CORPORATE SECURITY MANAGER Service: ? Author Type: Speech Language Pathologist Type: Progress Notes Filed: 09/17/2023 10:15 AM Note Text: Episode Visit Count: 2 Therapist That Will Accept/Oversee The Plan Of Care: Kevin Start of Care Date: 09/17/23 Onset Date: 10/21/22 Plan of Care Certification Date: 08/01/23 Patient Identified by Name and Date of : Alisha [facility] MODIFIED BARIUM [...] Results and Recommendations Discussed With: Patient, Family ([id number]) SUBJECTIVE: Lou Oliver is a 78 year [...] pulmonary complications, pain with PO intake -Marylu (oosven-aj-mfd) accompanies patient to today's assessment Patient Goals: [...] education provided Education Provided To: Patient, Caregiver (udywqs-li-qig) Education Mode/Type: Explanation/Discussion, Video Response to Education/Teach Back: States/Identifies TREATMENT: Performed Modified Barium Swallowing Study (56437). - Provided education related to a typical [...] instruction, images and/or (more content not included)... [facility] 09-17-2023 History of Present illness Narrative Episode Visit Count: 2 Therapist That Will Accept/Oversee The Plan Of Care: Kevin Start of Care Date: 09/17/23 Onset Date: 10/21/22 Plan of Care Certification Date: 08/01/23 Patient Identified by Name and Date of : Yes [facility] MODIFIED BARIUM [...] Results and Recommendations Discussed With: Patient, Family ([id number]-iov) SUBJECTIVE: Lou Oliver is a 78 year [...] pulmonary complications, pain with PO intake -Marylu (uoxrel-fx-fiy) accompanies patient to today's assessment Patient Goals: [...] education provided Education Provided To: Patient, Caregiver (kultch-kl-zll) Education Mode/Type: Explanation/Discussion, Video Response to Education/Teach Back: States/Identifies TREATMENT: Performed Modified Barium Swallowing Study (53488). - Provided education related to a typical [...] provided this date. Billing: Modified Barium Swallow (99343) Total time: 44 minutes Session Start Time : 929 Session Stop Time : 1013 Nano Alejandre CCC-CORPORATE SECURITY MANAGER documented in this encounter [facility] 09-17-2023 History of Present illness Narrative Radiology [...] 2023 9:57 AM documented in this encounter [facility] 09-17-2023 Note HNO ID: [id number] Author: Candis Gordon CT Service: Radiology Author [...] OBIE Rich September 17, 2023 9:57 AM [facility] 08-28-2023 History of Present illness Narrative VIRTUAL VISIT PROGRESS NOTE This is a virtual visit using [employer] Perch[employer] Video Visit. It required patient-provider interaction for the medical decision making as documented below. I have communicated my name and active licensure. The patient's identity and physical location were verified at the time of this visit. Either the patient or their legal auto service representative has been informed of the risks [...] 2 Date: 08/26/2023 Pain response post procedure: 0-110 Pain response pre procedure: 3/10 % overall [...] - minimal disability Ht 162.6 cm (5' 4) Wt 61.7 kg (136 lb) BMI 23.34 [...] which included preparing to see the patient, ajfs-ac-kjhj patient care, completing clinical documentation, and ordering medications, tests, or procedures Estelle Dodge APRN.ADRIANNA I have communicated my name and active licensure. The patient's identity and physical location were verified at the time of this visit. Either the patient or their legal auto service representative has been informed of the risks and benefits of -- and alternatives to -- treatment through a remote evaluation and consents to proceed with the evaluation remotely. documented in this encounter [facility] 08-28-2023 Instructions Estelle Dodge APRN.ADRIANNA - 08/28/2023 1:31 PM EST Ice and heat as tolerated Activity as tolerated documented in this encounter [facility] 08-26-2023 Nurse Note Order has been placed [...] tablePatient s procedure was performed in an [facility] Procedure room. Pause completed at each [...] allergies Procedure Start: 1357 Procedure End: 1408 Machine Puller's Name: HIRO Are you on a blood thinner: NO [...] receive one? NO documented in this encounter [facility] 08-26-2023 Instructions Kaiser Ag LPN - 08/26/2023 1:46 PM EST [...] care and why. documented in this encounter [facility] 08-26-2023 History of Present illness Narrative Review [...] patient is nervous/anxious. [facility] Date: 08/26/2023 Patient name: Lou Oliver Physician [...] or double vision) Respiratory: Negative (No Cough, Evpwpnlod-[id number], Dyspnea on exertion, wheezing) Cardiovascular: Negative (No [...] appropriate Assessment and Plan: As noted above [place] protocol documentation / Pre-Procedure Checklist: Consent: Obtained [...] MBA Pain Management [facility] documented in this encounter [facility] 08-13-2023 Instructions Giuliana Ernst APRN.CNP - 08/13/2023 11:24 AM EDT Ice and heat as tolerated Activity as tolerated documented in this encounter [facility] 08-13-2023 History of Present illness Narrative VIRTUAL VISIT PROGRESS NOTE This is a virtual visit using Asurvest Zoom Video Visit. It required patient-provider interaction for the medical decision making as documented below. I have communicated my name and active licensure. The patient's identity and physical location were verified at the time of this visit. Either the patient or their legal auto service representative has been informed of the risks and benefits of -- and alternatives to -- treatment through a remote evaluation and consents to proceed with the evaluation remotely. Lou Oliver is a 78 year old female seen for 08/07/23 #1.Medial Branch Block (Diagnostic only, NO STEROIDS) under fluoroscopic guidance BILATERAL at C4-5 and C5-6 Pain level today: 11/30 Ht 162.6 cm (5' 4) Wt 61.7 kg (136 lb) BMI 23.34 [...] which included preparing to see the patient, [id number] patient care, completing clinical documentation, obtaining and/or [...] current medical decision making from today Giuliana Ernst APRN.DEALMAKER MRI Spine Report MRI CERVICAL SPINE WO IVCON Exam End: 05/10/2020 8:23 AM (Final result) Narrative: * * *Final Report* * * DATE OF EXAM: May 10 2020 8:15AM [facility] 0297 - MRI CERVICAL SPINE WO IVCON [...] vertebrae with counting from the craniocervical junction. Pot Fluxer: PSCLane Transcribe Date/Time: May 10 2020 8:36A Dictated by : MARIS REMY MD This examination was interpreted and the report reviewed and electronically signed by: MARIS REMY MD on May 10 2020 8:46AM EST PDMP website checked and validated. All prescriptions have been APPROPRIATELY filled. No suspicious activity was identified. 08/12/2023 by Giuliana Ernst APRN.DEALMAKER documented in this encounter [facility] 08-12-2023 Aminata Underwood APRN.DEALMAKER - 08/12/2023 3:56 PM EDT Try denny tea Also put something like a wedge pillow under your mattress to elevate the head of your bed. documented in this encounter [facility] 08-12-2023 History of Present illness Narrative CC: [...] Advance Directive Discussion due on 10/21/2022 Covid-19 Vaccine(2022- season) due on 06/21/2023 Annual PCP Team [...] Aminata Royal APRN.ADRIANNA documented in this encounter [facility] 08-09-2023 Miscellaneous Notes Attempted to contact patient to follow up after procedure. Left a brief message asking patient to return call if they have any questions or concerns. Anne-Marie Ghotra LPN documented in this encounter [facility] 08-07-2023 Nurse Note Order has been placed [...] tablePatient s procedure was performed in an [facility] Procedure room. Pause completed at each [...] procedure site, laterality, and allergies Procedure Start: 1011 Procedure End: 1026 Machine Puller's Name: KIM Are you on a blood [...] receive one? NO documented in this encounter [facility] 08-07-2023 History of Present illness Narrative [facility] Date: 08/07/2023 Patient name: Lou Oliver Physician [...] or double vision) Respiratory: Negative (No Cough, [id number]-xl-[id number], Dyspnea on exertion, wheezing) Cardiovascular: Negative (No [...] appropriate Assessment and Plan: As noted above [place] protocol documentation / Pre-Procedure Checklist: Consent: Obtained [...] MBA Pain Management [facility] Review of Systems Constitutional: Positive for activity [...] patient is nervous/anxious. documented in this encounter [facility] 08-07-2023 Instructions Kori Dumas LPN - 08/07/2023 [...] care and why. documented in this encounter [facility] 08-01-2023 Note HNO ID: [id number] Author: Nabeel Francis CCC-CORPORATE SECURITY MANAGER Service: ? Author Type: Speech Language Pathologist Type: Progress Notes Filed: 08/01/2023 3:16 PM Note Text: Episode Visit Count: 1 Therapist That Will Accept/Oversee The Plan Of Care: Gikhai Start of Care Date: 08/01/23 Onset Date: (last 6 months) Plan of Care Certification Date: 08/01/23 Patient Identified by Name and Date of : Yes [facility] SPEECH THERAPY [...] precautions, Alternate bites and sips, Double swallows CORPORATE SECURITY MANAGER Recommendations: Diet, Instrumental Swallow Assessment Recommendations, Swallowing [...] and plan of care. Patient and daughter Hiro agreed with plan. SUBJECTIVE: Lou Oliver is [...] Self-monitoring, Use extra moistening agents Clinical Swallow Orient Swallow Protocol: Pass Oral Pharyngeal Swallow Assessment: [...] Return Demonstration TREATMENT: Evaluation: Swallow Eval Func (72337) Evaluation: Swallow Eval Func (16560) Swallow / Dysphagia (32511): Skilled Intervention: Provided education related to a [...] strategies; MBS results Billing: Clinical Swallow Evaluation (66787) and Dysphagia Treatment (08587) Total time / Length of visit: 4 (more content not included)... [facility] 08-01-2023 History of Present illness Narrative Episode Visit Count: 1 Therapist That Will Accept/Oversee The Plan Of Care: Kevin Start of Care Date: 08/01/23 Onset Date: (last 6 months) Plan of Care Certification Date: 08/01/23 Patient Identified by Name and Date of : Yes [facility] SPEECH THERAPY [...] precautions, Alternate bites and sips, Double swallows CORPORATE SECURITY MANAGER Recommendations: Diet, Instrumental Swallow Assessment Recommendations, Swallowing [...] and plan of care. Patient and daughter Hiro agreed with plan. SUBJECTIVE: Lou Oliver is [...] Self-monitoring, Use extra moistening agents Clinical Swallow Aida Swallow Protocol: Pass Oral Pharyngeal Swallow Assessment: [...] Return Demonstration TREATMENT: Evaluation: Swallow Eval Func (09461) Evaluation: Swallow Eval Func (77526) Swallow / Dysphagia (21281): Skilled Intervention: Provided education related to a [...] strategies; MBS results Billing: Clinical Swallow Evaluation (77670) and Dysphagia Treatment (03978) Total time / Length of visit: 45 minutes Session Start Time : 1330 Session Stop Time : 1415 Nabeel Francis CCC-CORPORATE SECURITY MANAGER documented in this encounter [facility] 07-25-2023 Instructions Zhane Sylvester PA-C - 07/25/2023 [...] in 4-5 months documented in this encounter [facility] 07-25-2023 History of Present illness Narrative ESTABLISHED [...] year old female, Ht 163.8 cm (5' 4.5) BMI 22.98 kg/m2 with a PMH significant [...] No PHYSICAL EXAMINATION Ht 163.8 cm (5' 4.5) Wt 61.7 kg (136 lb) BMI 22.98 kg/m GENERAL EXAM: General appearance: NAD, pleasant. HEENT: NC/AT, nasal congestion absent, no oral lesions, membranes moist. NECK: No masses, supple. Lungs: Breathing comfortably Extr: Moves all extremities without difficulty Skin: Cool to touch. No rash. NEUROLOGICAL EXAM: General: Awake, alert, oriented x3 (person,place,time), speech fluent, no dysarthria; comprehension, naming, repetition intact. Short and long-term memory intact. CN: PERRL, EOMI and without [...] which included preparing to see the patient, [id number]-qx-lacc patient care, completing clinical documentation, obtaining and/or [...] study not recommended) documented in this encounter [facility] 07-19-2023 History of Present illness Narrative CC: [...] F) Resp 12 Ht 163.8 cm (5' 4.5) Wt 61.7 kg (136 lb) SpO2 92% [...] symptoms occur. Patient agreeable to treatment plan. Sandra Centeno PA-C documented in this encounter [facility] 07-08-2023 History of Present illness Narrative Images from the original note were not included. Raman Greenwood MD Interventional Cardiology [place] [address] [place], [place] [address] [phone] Chief Complaint Patient presents with: Established Patient [...] correct any errors. documented in this encounter [facility] 07-08-2023 Miscellaneous Notes LYNDON 01/18/23 NOV 07/30/23 Sandra Myrick MA Patient has been identified by [...] advise. Beulah Ochoa documented in this encounter [facility] 07-04-2023 Miscellaneous Notes Procedure(s) being scheduled: 1.Are [...] No 9. Does this procedure require a cryogenic transport driver? Yes If yes, has patient been notified that a cryogenic transport driver is needed and must be present [...] vaccine.) Rere Kumar documented in this encounter [facility] 07-04-2023 History of Present illness Narrative Review [...] not included. [facility] Today's Date: 07/04/2023 Last Visit: N/A [...] Treatment: 07/01/2023 - Initial HPI: Referred by Lucía Rizzo MD, for evaluation & management of neck pain Duration: 10 years Sudden onset? no, Trauma? no Prior Treatments: Medications (See below), Modalities (eg. Heat, Ice), Physical Therapy , Home Exercise Program , and Activity Modification PT - 12 visits (04/09/2023 - 06/11/2023) Worked for years at a [employer], reports she frequently hunched in her job [...] Completed Date 05/12/2020 06/22/2021 07/04/2023 Risk Assessment: EVAN-7: EVAN - 7 SCORES 03/18/2023 05/12/2023 07/04/2023 EVAN-7 Score 4 12 8 (0-4) minimal anxiety, [...] DATE OF EXAM: May 10 2020 8:15AM [facility] 0297 - MRI CERVICAL SPINE WO IVCON [...] vertebrae with counting from the craniocervical junction. [facility] Transcribe Date/Time: May 10 2020 8:36A Dictated [...] was advised that they will need a cryogenic transport driver for after the procedure and that if no cryogenic transport driver is available and on site at [...] Referrals: No additional considerations at present Functional Quaker: No changes-continue current regimen Depending on response [...] MD Pain Management [facility] documented in this encounter [facility] 06-18-2023 Miscellaneous Notes Addended by: ZHANE SYLVESTER on: 06/18/2023 02:01 PM Modules accepted: Orders documented in this encounter [facility] 06-18-2023 Instructions Zhane Sylvester PA-C - 06/18/2023 12:50 PM EDT Consult to neuromuscular Compression stockings or abdominal binder (bike shorts) Continue florinef Increase 330PM dose of sinemet to 1.5 tablets Follow up in two months documented in this encounter [facility] 06-18-2023 History of Present illness Narrative ESTABLISHED [...] sinus rhythm, without any evidence of acute TN, ischemia, or abnormal rhythm. Patient was started [...] dysarthria; comprehension, naming, repetition intact. Short and long-term memory intact. CN: PERRL, EOMI and without [...] which included preparing to see the patient, dxnf-eb-gcbs patient care, completing clinical documentation, obtaining and/or reviewing separately obtained history, performing a medically appropriate examination, counseling and educating the patient/family/caregiver, and ordering medications, tests, or procedures. This document has been created with the use of voice recognition technology. It may contain inaccuracies: (e.g. misspellings, inaccurate syntax or word sense) that have escaped review. documented in this encounter [facility] 06-05-2023 Miscellaneous Notes Received a message the patient needs to be scheduled for a hospital follow-up appointment. Left the patient a voice message with the scheduled appointment information. Asked the patient to call the office to confirm the appointment date and time. Sent a Asurvest message with the scheduled appointment. Mailed an appointment reminder. documented in this encounter [facility] 06-05-2023 History of Present illness Narrative CC: Patient presents with: ED Follow-up: faiting and low BP and labs HPI Lou Oliver is a 78 year old female who presents with daughter, Hiro, today for 2-week follow-up on low BPs, as well as follow-up for recent ED visit. Regarding ED follow-up: Facility: [facility] ED Date of visit: 05/31/2023 Reason for [...] sinus rhythm, without any evidence of acute TN, ischemia, or abnormal rhythm. Patient was started [...] F) Resp 12 Ht 163.8 cm (5' 4.5) Wt 63.5 kg (140 lb) SpO2 100% [...] of Parkinson's medication. Continue current management on [facility] for the time being, will defer long-term [...] symptoms occur. Patient agreeable to treatment plan. Sandra Centeno PA-C documented in this encounter [facility] 06-03-2023 History of Present illness Narrative Episode [...] manual PRN; balancing progression. Assess what Dr. Centeno had to say at patients appt. SUBJECTIVE: [...] with orthostatic hypotension following evaluations. Patient sees Sandra Centeno this Saturday. Pain: Pain Pain Level: 4 [...] with use of gait belt & supervision. Self-Mcc Management: 1: Long discussion about current POC along with patients othewr disease process of Parkinsons, Orthostatic Hypotension and recent increase in falls/fainting episodes. Discussion about neck stiffness being the least of therapists worries currently and wanting the patient to get back her health and for PT services to now overwhelm her currently. Patient agrees and is going to discuss with Dr. Centeno overall plan with current symptoms. Skilled Intervention: [...] 1500 Session Stop Time : 1540 Steve Chavez PT documented in this encounter [facility] 05-31-2023 Discharge summary Note Date/Time May 31, 2023 3:17pm [facility] Medical Records Department [address] [place] [address] Emergency Department Summary 05/31/23 MR#: [id number] Acct: [id number] Name: LOU OLIVER Rep #:[id number] : 1945 78 From: [place] MD PCP: Dr. Lucía Rizzo MD Status:REG E R Location: ED HPI History of Present Illness Chief Complaint: Syncope Detail of Chief Complaint: Passed out at a restaurant. Informant: patient Onset/Context/Timing Onset: Today Context: Sudden Onset Timing: Intermittent Current Severity: Gone Maximum Severity: Moderate Narrative Narrative: 78-year-old female history of Parkinson's disease. States that the Parkinson's medications have been causing her to have episodes of low blood pressure. They have been running relatively well this week 111/60 or so. Today she was in a dance class. After that she and friends went out to eat. While in the restaurant she felt lightheaded with standing and they lowered her to the ground. She did not fall or get hurt. Denies any headache, chest pain, shortness of breath or abdominal pain. Denies any nausea, vomiting, diarrhea orfever. No melena. No cardiac history. Prior similar symptoms: No Recent Illness/Hospitalization: No PFSH PFSH Medical History High cholesterol Hyperthyroidism Parkinson disease Home Medications pravastatin 20 mg tablet 20 mg PO QHS 05/13/19 [History Last Taken Unknown] carbidopa 25 mg-levodopa 100 mg tablet 1 ea PO .QID 10/04/20 [History Last Taken 05/31/23] carbidopa ER 50 mg-levodopa 200 mg tablet,extended release 1 tab PO BID 10/04/20[History Last Taken 05/31/23] fludrocortisone 0.1 mg tablet 0.1 mg PO BID #60 tabs 05/31/23 [Rx Last Taken Unknown] gabapentin 100 mg capsule 100 mg PO TID 05/31/23 [History Last Taken 05/31/23] levothyroxine 75 mcg tablet 75 mcg PO .QD 05/31/23 [History Last Taken 05/31/23] lorazepam 0.5 mg tablet 0.5 mg PO DAILY PRN PRN anxiety 05/31/23 [History Last Taken Unknown] sertraline 100 mg tablet 100 mg PO DAILY 05/31/23 [History Last Taken 05/31/23] Allergy/AdvReac Type Severity Reaction Status Date / Time Sulfa (Sulfonamide Allergy Hives Verified 05/31/23 14:40 Antibiotics) Social History Smoking Status: Never smoker ROS ROS ED ROS Narrative Denies recent illness. Review of Systems ROS Unobtainable: Denies due to encephalopathy Constitutional Constitutional ED: Denies chills or fever(s) Eyes Eyes: Denies blurry vision ENT ENT ED: Denies ear pain Cardiovascular Cardiovascular: Denies chest pain Respiratory/Chest Respiratory/Chest: Denies cough or dyspnea Gastrointestinal Gastrointestinal: Denies abdominal pain, diarrhea, melena, nausea or vomiting Genitourinary Genitourinary ED: Denies dysuria Musculoskeletal Musculoskeletal: Denies arthralgias Integumentary Denies abscess Neurologic Neurologic: Denies headache(s) Psychiatric Psychiatric: Denies anxiety Endocrine Endocrinology: Denies cold intolerance Hematologic/Lymphatic Hematologic/Lymphatic: Reports none Allergic/Immunologic Allergic/Immunologic ED: Denies mouth swelling, tongue swelling or urticaria EXAM Physical Exam Narrative Exam Narrative: ?-year-old female no acute distress. Vital signs stable afebrile. Sitting upright in bed. Does not look ill. Clinically doing well at this time. Initial blood pressure 109/44. She does not look septic or toxic. H EENT exam unremarkable. Neck nontender no lymphadenopathy. Lungs clear to auscultation bilaterally. Heart regular rhythm rate about 75 no murmur. Chest wall nontender. Abdomen soft nontender. Moving all 4 extremities. Nontender no edema. Normal range of motion. Normal healthcare customer service strength. Neurologically she is awake and alert with no focal motor deficits. Const Vital Signs: 05/31/23 14:36 05/31/23 14:44 05/31/23 15:09 Temperature 98 F Temperature Source Temporal Pulse Rate 77 Pulse Rate [Lying] Pulse Rate [Standing (for 1 minute prior to obtaining)] Respiratory Rate 14 Respiratory Effort Normal Non-Labored Respiratory Pattern Normal Blood Pressure 109/44 L Blood Pressure [Lying] Blood Pressure [Sitting (for 1 minute prior to obtaining)] Blood Pressure [Standing (for 1 minute prior to obtaining)] Blood Pressure Mean 65 Blood Pressure Mean [Lying] Blood Pressure Mean [Sitting (for 1 minute prior to obtaining)] Blood Pressure Mean [Standing (for 1 minute prior to obtaining)] Pulse Ox 94 Oxygen Delivery Method Room Air Room Air 05/31/23 16:50 05/31/23 16:59 Temperature Temperature Source Pulse Rate 71 Pulse Rate [Lying] 71 Pulse Rate [Standing (for 1 minute prior to obtaining)] 87 Respiratory Rate Respiratory Effort Respiratory Pattern Blood Pressure 131/71 H Blood Pressure [Lying] 124/77 H Blood Pressure [Sitting (for 1 minute prior to obtaining)] 123/77 H Blood Pressure [Standing (for 1 minute prior to obtaining)] 79/51 L Blood Pressure Mean 91 Blood Pressure Mean [Lying] 92 Blood Pressure Mean [Sitting (for 1 minute prior to obtaining)] 92 Blood Pressure Mean [Standing (for 1 minute prior to obtaining)] 60 Pulse Ox Oxygen Delivery Method Positive well nourished and well developed; Negative for cachectic, contracturesor unkempt General Appearance ED: well developed and NAD; Negative for unkempt, cachectic, contractures, cyanotic, diaphoretic or pallor Nutritional Appearance: Negative for cachectic HEENT Reports moist mucous membranes; Denies dry mucous membranes Negative for trauma or tenderness Mouth ED: No dry mucous membranes Mouth: No dry mucous membranes Eyes PERRL and EOMs intact bilaterally General Eye ED: Negative for pale conjunctiva or scleral icterus Neck no lymphadenopathy, supple and no JVD General: Negative for tenderness Chest Wall inspection of chest normal and palpation of chest normal Chest: Negative for other Resp normal respiratory effort and clear to auscultation bilaterally Effort and Inspection: Negative for retractions Auscultation: Negative for rales, rhonchi or wheezes Cardio regular rate, regular rhythm, S1 normal heart sound, S2 normal heart sound and no murmurs GI normal to inspection, nondistended, normoactive bowel sounds, non-tender, non-distended and no masses Inspection: Negative for abdominal distention Auscultation: normoactive bowel sounds Palpation: soft; Negative for tender, guarding, splenomegaly or mass Back/Spine no CVA tenderness General Back: Negative for CVA tenderness Cervical Spine: Negative for cervical spine tenderness Thoracic Spine / Upper Back: Negative for thoracic spinal tenderness or paraspinal muscle tenderness Extremity normal to inspection General Extremety ED: Negative for edema or tenderness General Extremity: Negative for edema Neuro oriented x3, CN's II-XII intact bilaterally and no sensory deficits noted Sensorium / Orientation: alert; Negative for orientation impaired Motor Exam: strength 5/5 throughout Psych mental status grossly normal Appearance: Negative for unkempt Attitude: No agitated Mood & Affect: Negative for depressed, anxious or tearful Skin no rashes or lesions noted, no wounds and skin turgor normal General Skin Exam: elasticity normal; Negative for jaundice or pallor Lesions: No lesion noted Rashes: No rashes noted Trauma: Negative for abrasion Wounds: Negative for wounds noted MDM MDM MDM Narrative Medical decision making narrative: 78-year-old female Parkinson's with a syncopal episode. Currently vital signs and exam are unremarkable. She undergo cardiac work-up. Repeat exam patient doing well at 4:17 PM. Blood pressure is 137/65. She is clinically doing well. She passed out several weeks ago also. She has not had any work-up for this. It is being assumed that her Parkinson's medication is causing her low blood pressure. They have adjusted her meds but she has had continued problems. Repeat exam patient is doing well at 5 PM. I did speak to her neurologist Dr. Allen Connolly out of [place]. He states the patient's had difficulty with autonomic dysfunction which lowers her blood pressure and also the medication are used to treat her Parkinson's disease. They are going to switch meds but the patient could not afford the other medication. So he has been adjusting the dosages. Patient was orthostatic positive so was treated with a liter normal saline. On repeat exam at 7:05 PM she is doing well standing up in the room. Orthostatics will be rechecked. She will be discharged home. She will be started on Florinef which Dr. Connolly and I discussed. And she will follow-up with his office. Lab Data Attestation: I reviewed the patient's lab results. Lab results narrative: CBC shows white count 5.6. H&H 10.7 and 31.2. Platelets are 182. Electrolytes show a gap of 3. BUN and creatinine 21.1. Glucose 113. Troponin is normal at 4. EKG is a sinus rhythm at 75. Chest x-ray remarkable. Orthostatic vital signs were positive when she stood up her blood pressure went to 81 systolic. She had symptoms. Labs: Laboratory Results - last 24 hr 05/31/23 15:20 WBC 5.6 RBC 3.37 L Hgb 10.7 L Hct 31.2 L MCV 92.6 MCH 31.8 MCHC 34.3 RDW Std Deviation 41.5 RDW Coeff of Kris 12.1 Plt Count 182 MPV 9.9 Immature Gran % (Auto) 0.400 Neut % (Auto) 65.5 Lymph % (Auto) 25.2 [place] % (Auto) 7.3 Eos % (Auto) 1.2 Baso % (Auto) 0.4 Absolute Neuts (auto) 3.7 Absolute Lymphs (auto) 1.42 Nucleated RBC % 0 Sodium 138 Potassium 3.9 Chloride 107 Carbon Dioxide 28.0 Anion Gap 3 L BUN 20 H Creatinine 1.10 H Estim Creat Clear Calc 36.98 Est GFR (MDRD) Af Amer 62 Est GFR (MDRD) Non-Af 51 L BUN/Creatinine Ratio 18.2 Glucose 113 H Calcium 8.4 L Troponin I High Sens 4 Radiography Chest X-Ray - ED: 1 View, Read by ED Physician, Read by Radiologist, Normal, Heart, Lungs, Mediastinum, Bony Structures, No Acute Disease and Chronic Changes Diagnostic Testing: Clinical Impression(s) from Imaging Studies Chest X-Ray 05/31/23 15:08 IMPRESSION: Minimal atelectasis in the left midlung. Electronically Signed: Helder Napoles MD at 15:29 EDT , Chest x-ray, portable, single view shows no acute abnormality. Interpreted by myself and radiologist. Normal cardiac silhouette and mediastinum. Rhythm Strip Rhythm Strip: Sinus Rhythm Rate: 75 Ectopy: None EKG Initial EKG: Attestation: I personally reviewed and interpreted this EKG as follows: Interpretation: Sinus Rhythm and No Acute Injury Pattern Comments: Sinus rhythm rate 75 no acute signs of TN, ischemia or dysrhythmia. Discharge Plan Triage Chief Complaint: Syncope ED Provider: Bay Barton Dx/Rx/DC Orders Clinical Impression: Acute dehydration, History of Parkinson's disease, Orthostatic hypotension, Syncope Instructions: ED Hypotension, Orthostatic Prescriptions: New fludrocortisone 0.1 mg tablet 0.1 mg PO BID Qty: 60 0RF No Action pravastatin 20 MG tablet 20 mg PO QHS Patient Comments: TAKE 1 TABLET BY MOUTH EVERYDAY AT BEDTIME carbidopa-levodopa 1 TABLET tablet extended release 1 tab PO BID Rx Instructions: AM AND HS carbidopa-levodopa 1 EACH tablet 1 ea PO .QID gabapentin 100 mg capsule 100 mg PO TID Patient Comments: TAKE 1 CAPSULE BY MOUTH THREE TIMES DAILY FOR 180 DAYS. lorazepam 0.5 mg tablet 0.5 mg PO DAILY PRN PRN (Reason: anxiety) Patient Comments: TAKE 1 TABLET BY MOUTH ONCE DAILY NEEDED (ANXIETY, PANIC) FOR UP TO 30 DAYS. levothyroxine 75 mcg tablet 75 mcg PO .QD Patient Comments: TAKE 1 TABLET BY MOUTH ONCE DAILY. TAKE ON EMPTY STOMACH. FOR THYROID. sertraline 100 mg tablet 100 mg PO DAILY Patient Comments: TAKE 1 TABLET BY MOUTH EVERY DAY Primary Care Provider: Lucía Rizzo Referrals: Lucía Rizzo MD [Primary Care Provider] - As Needed Ranjan Connolly MD [Non-Staff] - As soon as possible Activity Restrictions/Additional Instructions: You have low blood pressure with standing called orthostatic hypotension. It isprobably from a combination of being mildly dehydrated and also from the Parkinson's medication. Continue your current meds. Plenty of fluids. Follow-up with Dr. Connolly for further evaluation and adjustments as needed of your Parkinson's meds. You will be started on a new medication called Florinef which is a steroid whichwill help you retain fluids and hopefully increase your blood pressure Disposition Disposition: Home, Self Care What to do if you have Problems For any increased pain, shortness of breath, bleeding, nausea or vomiting, chestpain, or any unexpected problems, contact your Primary Care Provider. Call [employer] [facility] [employer] [facility] ([phone]) or report to the closest Emergency Room. Call 911 if necessary. 05/31/231912 <Electronically signed by Bay Barton MD> Cosigner Signature (if applicable): CC: Dr. Lucía Rizzo MD ~ Signed [facility] Work Phone: [phone] Miscellaneous Notes* Telephone Encounter - Sandra Centeno PA-C - 05/31/2023 2:20 PM EDT Can we check in on this next week? Pt will need hospital f/u when she is out. Also when appt is made, can we let her know she should bring her cuff to next visit to cross check her readings to ours. Sandra Centeno PA-C * Telephone Encounter - Sariah Gomez RN - 05/31/2023 2:13 PM EDT Will send this note to PCP office as well as Neurologist for their update. Pt agreeable to follow triage recommendations as states below. Sariah Gomez RN * Telephone Encounter - Sariah Gomez RN - 05/31/2023 2:03 PM EDT Triage Protocol Recommends: Call 911 now. Patient agreeable. Pt at home with other people to assisther. Reason for Disposition [1] Systolic BP < [...] post menopausal Protocols used: Blood Pressure - [id number] documented in this encounterKind[facility]08-08-2023 History of Present illness Narrative* Steve Chavez, PT - 05/28/2023 11:23 AM EDT Episode Visit Count: 10 Therapist That Will [...] manual PRN; balance progressions. SUBJECTIVE: Pt. reports DrMia visits last week she was told her [...] Therapeutic Exercise: 1: Standing Shoulder Extension: 2x15 [facility] 2: Standing Rows: 2x15 [facility] 3: Standing Horz. ABD Pull-Aparts with [...] 1201 Steve Chavez PT documented in this encounterKindred Healthcare08-07-2023 Miscellaneous Notes* Telephone Encounter - Leia Mancini LPN - 2023 3:19 PM EDT Patient has been identified by name and [...] you. Leia Mancini LPN documented in this encounterKindred [facility]08-01-2023 Instructions* Patient Instructions* Zhane Sylvester PA-C - 05/21/2023 3:01 PM EDT Follow [...] up in 8 weeks documented in this encounterKindred [facility]08-01-2023 History of Present illness Narrative* Zhane Sylvester PA-C - 05/21/2023 2:39 PM EDT ESTABLISHED PATIENT VISIT Last visit: 03/25/[address] Connolly ASSESSMENT/PLAN: 1. Parkinson disease (HCC) - ICD9: 332.0, ICD10: G20 (primary diagnosis) Patient with increasing on-off effect of Sinemet as noted above. Most of visit was spent focused onthis condition and discussing ways to treat. We did discuss meds such as Rytary and Comtan but pt concerned about costs of such and/or increased number of meds needing to be taken. After further discussion, attempt will be made to take Sinemet less frequent through the day but at a higher dose withsuperimposed dosing of Sinemet CR in attempt to [...] noted significant positional lightheadedness and low blood pressures.She also notes some increase sleepiness since increasing [...] 6 months. Recent MRI showed no evidence ofstroke. Patient does state that she sees shadow [...] disturbance, mood disorder and recent psychosocial stressors. HEMATOLOGIC/LYMPHATIC/IMMUNOLOGIC:Negative for prolonged bleeding, bruising easily or swollen [...] as needed (anxiety, panic) for up to 30days. carbidopa-levodopa (SINEMET) 25-100 mg per tablet Take [...] dysarthria; comprehension, naming, repetition intact. Short and long-term memory intact. CN: PERRL, EOMI and without nystagmus, VFF to confrontation, facial sensation and strength are normal and symmetric, hearing is intact to finger rub bilaterally, palate and tongue movements are intact and symmetric. SCM and trapezius strength normal. Motor: Normal tone, bulk and strength (5/5) bilaterally (throughout extremities x4). Reflexes: 2/4 and symmetric Coordination: FNF intact. Suai-ck-zdap intact. Bilateral upper extremity tremor with finger-nose [...] Recent brain MRI did not show any signsof stroke or etiology of patient's symptoms. New regimen noted below. Patient does note significantnausea after medication which last for an hour or so after taking it. May consider adding carbidopawith her medication. Sinemet 25/100mg dose: -Take 1 [...] her neighbors and family. Had 1 fall secondaryto syncope, but no other falls or concerns. Family not concerned with patient living alone. Patientcontinues to drive locally when she feels her [...] patient to follow-up in 8 weeks or soonershould any symptoms change or worsen. Zhane Sylvester PA-C I spent a total of 40 minutes on the date of the service which included preparing to see the patient, [id number]-ro-czgn patient care, completing clinical documentation, obtaining and/or reviewing separately obtained history, performing a medically appropriate examination, counseling and educating the pat ient/family/caregiver, and ordering medications, tests, or procedures. This document has been created with the use of voice recognition technology. It may contain inaccuracies: (e.g. misspellings, inaccurate syntax or word sense) that have escaped review. documented in this encounterKindred Healthcare07-31-2023 History of Present illness Narrative* Steve Chavez, PT - 05/20/2023 11:48 AM EDT Episode Visit Count: 9 Therapist That Will [...] D2 Flexion pattern overall, however improved following v erbal/tactile cues. The patient will continue to benefit [...] initial dizziness following transitional movements. Saw Dr. Centeno and had lab work done/increased Zoloft. Pt. [...] 1230 Steve Chavez PT documented in this encounterKindred Healthcare07-19-2023 History of Present illness Narrative* Paula Abreu APRN.DEALMAKER - 05/08/2023 4:37 PM EDT 77 year old female with PMH HTN, thyroid, and Parkinson presents for low BP and feeling faint Accompanied by family Patient endorses she passed out 6 days ago, but was not evaluated. She presented to health center today thinking she had an appointment, but it is next week. Discussed with family and patient her symptoms required further work up then [facility] can provide, Concerns for life anemia, cardiac, intracranial etc. Referred to ED. documented in this encounterKindred [facility]07-17-2023 History of Present illness Narrative* Deandra Ely APRN.ADRIANNA - 05/06/2023 8:45 AM EDT Images from the original note were not included. Neurological [facility] NEURO-ONCOLOGY VIRTUAL VISIT NOTE I have communicated my name and active licensure. The patient's identity and physical location wereverified at the time of this visit. Either the patient or their legal auto service representative has been informed of the risks and benefits of -- and alternatives to -- treatment through a remote evaluation andconsents to proceed with the evaluation remotely. PURPOSE [...] new MRI brain in 6 months at [place] - Reviewed signs and symptoms that would prompt sooner evaluation - The patient has our contact information and was advised to call if new symptoms, questions or concerns arise prior to next scheduled visit. - All questions were answered. Deandra Ely APRN.ADRIANNA Certified Nurse Practitioner cc: Semaj Rodriguez MD--[facility] Subjective HISTORY OF PRESENT ILLNESS: Lou [...] DATE OF EXAM: May 02 2023 3:46PM [facility] 0295 - MRI BRAIN WO/W IVCON / [...] of vasogenic edema within the adjacent parenchyma. Pot Fluxer: DOMENIC Transcribe Date/Time: May 02 2023 5:29P Dictated by : FELIX SAHNI MD This examination was interpreted and the report reviewed and electronically signed by: FELIX SAHNI MD on May 02 2023 5:40PM EST documented in this encounterKindred Healthcare07-13-2023 History of Present illness Narrative* Steve Chavez PT - 05/02/2023 1:57 PM EDT Episode Visit Count: 8 Therapist That Will [...] progressed toward goals. Patient continues to present withimpairments in ADL's, balance, coordination, gait, independence in [...] Care: created on 04/09/23 through 06/04/23 1. [place] in home exercise program. - Goal Met [...] Patient to be seen for Therapeutic exercise (15332), Neuromuscular re-education (79521), Manual therapy (23505), Therapeutic activities (45949), Self-residential management (68663), Patient/Family/Caregiver Education, Body Mechanics Training PLAN FOR [...] Endurance Test (16.3 sec), Cervical Neck Extensor EnduranceTest (8.4 sec). Functional Performance Test Results 30 [...] and assessment of patient's response to intervention. Self-Mcc Management: 1: Education regarding updated POC, HEP, [...] 44 Steve Chavez PT documented in this encounterKindred [facility]07-10-2023 History of Present illness Narrative* Steve Chavez, HANS - 04/29/2023 12:42 PM EDT Episode Visit Count: 7 Therapist That Will [...] tactile cueing. The patient will continue to benefitfrom ongoing skilled physical therapy to progress toward [...] 45 Steve Chavez PT documented in this encounterKind[facility]07-03-2023 History of Present illness Narrative* Steve Chavez PT - 04/22/2023 11:15 AM EDT Episode Visit Count: 5 Therapist That Will [...] neck pain this date. Will begin next visitas able and as chief complaint of neck [...] movements. Subjective taken.) 7: Standing Rows: 3x12 [facility] 9: Serratus Punch: 2x15 3#db ea. [...] 45 Steve Chavez PT documented in this encounterKind[facility]06-29-2023 History of Present illness Narrative* Steve Chavez PT, DPT - 04/18/2023 10:32 AM EDT Episode Visit Count: 4 Therapist That Will [...] tenderness on left side of the neck today.States overall she is noticing progress being made in tissue tightness, posture and strength. Majorcomplaint remains a heavy head during prolonged positions [...] 2 hold 3: Standing Pallof Press: 2x12 [facility] TB each way 5: Fwd Step Ups: 2x10 ea. leg up 1st holding 2#db 6: Standing Shoulder Extension: 3x12 [facility] 7: Standing Rows: 3x12 [facility] 8: Marching in place w/ arenas [...] Time Minutes (timed/untimed): 45 Steve Chavez PT DPAshwin documented in this encounterKindred Healthcare06-26-2023 History of Present illness Narrative* Steve Chavez PT, DPT - 04/15/2023 11:10 AM EDT Episode Visit Count: 3 Therapist That Will Accept/Oversee The Plan Of Care: Steve Chaevz PT DPT Start of Care Date: 04/09/23 Onset Date: 10/21/22 Plan of Care Certification Date: 04/09/23 Next Certification Due Date: 05/14/23 [facility] PHYSICAL THERAPY TREATMENT NOTE ASSESSMENT: Lou Oliver tolerated the session with fatigue, no change in symptoms, and expected muscle soreness. She demonstrated difficulty with the soft tissue restriction in the R UT and wasunable to tolerate deep manual work. She demonstrated [...] trying to hold the head up. States complia nce with HEP. Reports scheduled appt. with pain [...] Tenderness to palpation, causing referral pain down tothe shoulder with deep push. Went to patient tolerance. Patient unable to tolerate trigger point release. TREATMENT: Therapeutic Exercise: 1: Supine Chin Tucks: 2x15 3-5 hold 2: Isometric C/S Extension: 2x15 5 hold 3: *Standing Pallof Press: 2x12 [facility] TB each way 4: Sci-fit: 5 Minutes (For cardiovascular endurance of whole body for PD as well as for muscle endurance of posterior neck to hold head up with arm movements. Subjective taken and HEP assessed.) 6: Standing Shoulder Extension: 3x12 [facility] TB 7: *Standing Rows: 3x12 [facility] 8: Marching in place w/ arenas [...] Steve Chavez PT DPT documented in this encounterKindred Healthcare06-22-2023 Miscellaneous Notes* Telephone Encounter - Demetrice Fischer Ma - 04/11/2023 2:51 PM EDT Left detailed message on [employer]. * Telephone Encounter - Demetrice Fischer Ma - 04/11/2023 2:50 PM EDT ----- Message from Lucía Rizzo MD sent at 04/11/2023 2:09 PM EDT ----- I want her to see pain management who may refer her to spine if neede Her degeneration is getting significantly worse and she is having a deformity Regards, Lucía Rizzo MD documented in this encounterKindred Healthcare06-22-2023 History of Present illness Narrative* Steve Chavez PT, DPT - 04/11/2023 11:23 AM EDT Episode Visit Count: 2 Therapist That Will Accept/Oversee The Plan Of Care: Steve Chavez PT DPT Start of Care Date: 04/09/23 Onset [...] to benefit from ongoing skilled physical therapy toprogress toward set goals. PLAN FOR NEXT VISIT: [...] 5 hold 3: Standing Pallof Press: 2x10 [facility] TB each way 4: Sci-fit: 5 Minutes (For cardiovascular endurance of whole body for PD as well as for muscle endurance of posterior neck to hold head up with arm movements. Subjective taken and HEP assessed.) 5: Active cervical extension ROM w/ 3 eccentric lower into neutral: 3x10 6: Standing Shoulder Extension: 2x10 [facility] TB 7: Standing Rows: 2x10 [facility] 8: Marching in place w/ arenas [...] Total Treatment Time Minutes (timed/untimed): 47 Steve Chavez, PT, DPT documented in this encounterKindred Healthcare06-20-2023 History of Present illness Narrative* Steve Chavez PT, DPT - 04/09/2023 1:10 PM EDT Episode Visit Count: 1 Therapist That Will Accept/Oversee The Plan Of Care: Steve Chavez PT DPT Start of Care Date: 04/09/23 Onset [...] ADL's, balance, independence in exercise, joint mobility, o verall function, posture, range of motion, soft tissue [...] of Care: created on 04/09/23 through 06/04/23 [place] in home exercise program. Patient will decrease pain rating by 2 points to meet minimal clinical important difference for numeric pain rating scale. Patient will demonstrate increase in cervical strength to 5/5 during manual muscle testing in orderto improve function for basic self-care tasks and light functional tasks. Restore pain free cervical ROM by 10 degrees each direction to allow for improved posture. Patient will improve performance on Deep Neck Flexor Endurance Test to 20 seconds to demonstrate improved neuromuscular coordination & endurance. Patient will improve performance on Cervical Neck Extensor Endurance Test to 12- 15 seconds to demonstrate improved cervical paraspinal strength to improve posture & function for prior functional tasks. Patient Goals: Decrease cervical pain. Return to walking exercise Planned Interventions, Frequency, and Duration: Current Frequency: 2x/week Duration: 4 weeks Total Number of Visits Planned: 8 Planned Treatment Interventions: Therapeutic exercise (52926), Neuromuscular re- education (01294), Manual therapy (82389), Therapeutic activities (41247), Self- residential management (96499), Patient/Family/Caregiver Education, Body Mechanics Training Patient demonstrates good understanding of plan of care and treatment. The above goals and plan of care were discussed and agreed upon by patient/family. SUBJECTIVE: Lou Oliver is a 77 year old female seen today for Pt. with cheif complaint of Phillip posterior cervical pain (feels L worse than right). This concordant next pain has been ongoing forthe past 3 years. She has received injections, had pain mgmt for it and completed PT prior (which she states helped initiallly), however over time condition seems to decline. Her major issue is her weakness in the neck causing the a forward flexing posture, [id number]. She is unable to hold her head up for prolonged time as it just feels to heavy, often she holds her head up with her UEs. Pt. has Parkinson's and attends classes for it and tries to stay as active as possible, but the neck pain /heaviness/posturing has limited her everyday function. Patient Goals: Decrease cervical pain. Return to walking exercise Functional Limitations: cleaning, dressing, grooming, pulling, pushing, carrying, lifting, physicalactivities, recreational activities, walking in the community, use [...] Rot & side-bend (4/5), R Rot & side- bend (4/5) R UE Strength: Grossly 4+/5 L [...] program, Plan of Care, Posture, Health promotion, Safety,Lifestyle changes, Body Mechanics TREATMENT: PT Treatment Interventions: Manual Therapy, Therapeutic Exercise, Self-Mcc Management Evaluation Evaluation Therapeutic Exercise: 1: *Supine [...] and assessment of patient's response to intervention. 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 Pot Fluxer: DOMENIC Transcribe Date/Time: Apr 08 2023 3:48P Dictated by : ANA MARIA JALLOH MD This examination was interpreted and the report reviewed and electronically signed by: ANA MARIA JALLOH MD on Apr 08 2023 3:55PM EST DIVISION OF [id number] History of Present illness Narrative* Haley Prince RT(R) - 04/05/2023 2:50 PM EDT Radiology Service Progress Note PATIENT NAME: Lou Oliver DATE OF SERVICE: April 05, 2023 TIME: 2:44 PM PATIENT IDENTITY VERIFICATION COMPLETED USING TWO (2) IDENTIFIERS: Name and Date of confirmedby patient verbally. FALL SCREENING: Has the patient had 2 falls in the last year or 1 fall with injury or currently using an Ambulatory Assistive Device (Walker, Cane, Wheelchair, Crutches, etc.)? No PATIENT GENDER DATA: Female. status: : No status: NO. PATIENT RELEVANT IMPLANT DATA REVIEWED: Not Applicable RADIOLOGY DEPARTMENT: General X-ray: Exam(s) Completed: Spine X-Ray(s): Cervical AP / LAT / OBL andThoracic PERIPHERAL IV DATA: Not applicable SIGNED BY: RT Heidi(R) April 05, 2023 2:44 PM documented in this encounterKindred Healthcare06-16-2023 History of Present illness Narrative* Lucía Rizzo MD - 04/05/2023 1:45 PM EDT Reason for Visit Patient presents with: Recheck: [...] regimen got tritrated but it is too earlyto say how she is doing. The neck pain is caused her to not do as much as before, cannot do yard work, anything that involves heavy lifting, House hold chores takes her a while to do. She cannot ride her bycyle any more. Activities of dailyliving are intact. Sill able to drive to [place] area. Doing meals and wheels , does not [...] M40.204 - XR THORACIC LIMITED 2V AP/LAT Lucía Rizzo MD documented in this encounterKindred Healthcare06-05-2023 Instructions* Patient Instructions* Ranjan Connolly Jr., MD - 03/25/2023 3:53 PM EDT Sinemet 25/100mg dose: -Take 1.5 tabs at 730AM (after eating something). -Take 1.5 tabs at 1130AM. -Take 1.5 tabs at 330PM (after lunch). -Take 1.5 tabs at 730 PM 2. Sinemet CR 50/200mg dose: -Take 1 tablet with your 730AM dose of short acting Sinemet. -Take 1 tablet at 10-11 PM. documented in this encounterKindred Healthcare06-05-2023 History of Present illness Narrative* Ranjan Connolly Jr., MD - 03/25/2023 3:21 PM EDT ESTABLISHED PATIENT VISIT CHIEF COMPLAINT: Follow Up [...] for 3 hours and then feels crappy again. Currently taking Sinemet 25/100mg - 730AM, 1030AM, [...] kg (148 lb 3.2 oz) SpO2 97% BMI25.05 kg/m (Sinemet taken 1 hour before visit) GENERAL EXAM: General appearance: NAD, pleasant. HEENT: NC/AT, nasal congestion absent, no oral lesions, membranes moist. NECK: No masses, supple. Lungs: CTA bilaterally. CV: RRR nl S1, S2. Extr: No cyanosis, clubbing or edema. Skin: Cool to touch. NEUROLOGICAL EXAM: General: Awake, alert, oriented x3 (person,place,time), speech fluent, no dysarthria; comprehension, naming, repetition intact. Short and long-term memory intact. Fund of knowledge grossly normal [...] above. Most of visit was spent focused onthis condition and discussing ways to treat. We did discuss meds such as Rytary and Comtan but pt concerned about costs of such and/or increased number of meds needing to be taken. After further discussion, attempt will be made to take Sinemet less frequent through the day but at a higher dose withsuperimposed dosing of Sinemet CR in attempt to [...] which included preparing to see the patient, [id number] patient care, completing clinical documentation, obtaining and/or reviewing separately obtained history, performing a medically appropriate examination, counseling and educating the pat ient/family/caregiver, ordering medications, tests, or procedures, and communicating results to thepatient/family/caregiver. documented in this encounterKindred Healthcare03-10-2023 History of Present illness Narrative* Lucía Rizzo MD - 12/28/2022 2:28 PM EST Reason for Visit Patient presents with: Follow [...] F) Resp 12 Ht 163.8 cm (5' 4.5) Wt 69.4 kg (153 lb) SpO2 97% [...] - good control - Continue current medication. Lucía Rizzo MD documented in this encounterKindred Healthcare02-03-2023 History of Present illness Narrative* Ranjan Connolly Jr., MD - 11/23/2022 3:17 PM EST ESTABLISHED PATIENT VISIT CHIEF COMPLAINT: Follow Up HISTORY OF PRESENT ILLNESS: Lou Oliver is a 77 year old female, with a PMH significant for and per last office visit of 07/26/22 with Erica Madden DEALMAKER: G20 Parkinson disease (HCC) (primary encounter diagnosis) Comment: Pt reports concerns today similar to those at time of last OV. Neurological exam remains stable with only PD finding again being retropulsion. Gait is stable on ambulation. Only SE with medication is mild nausea which she reports has been chronic. Discussed medication and as there has beenno changes on exam since time of previous [...] TID and today she reports improvement in symptoms.Still noting mild n/t with occasional pain overnight, [...] which included preparing to see the patient, [id number] patient care, completing clinical documentation, obtaining and/or reviewing separately obtained history, performing a medically appropriate examination, counseling and educating the pat ient/family/caregiver, and ordering medications, tests, or procedures. PDMP website checked and validated. All prescriptions have been APPROPRIATELY filled. No suspiciousactivity was identified. 11/23/2022 by Ranjan Connolly MD documented in this encounterKindred Healthcare10-28-2022 History of Present illness Narrative* Momo Keene MD - 08/17/2022 12:00 AM EDT LOU OLIVER [id number] 08/17/2022 [facility] [place] Keisha Lin Alvino [facility] Center [facility] STEREOTACTIC RADIOSURGERY (SRS) DAILY PROCEDURE NOTE DATE [...] identity and treatment site. CBCT obtained which wasco-registered using the treatment planning system. Adaptive replan was verified and approved. Once the beam was turned on, the patient position and target location were continuously monitored during delivery of the SRS using infrared tracking. At all points of decision- making with regard to patientsetup, I conferred with the medical consultant to approve the final setup. I was [...] We will continue as planned. Electronically Signed ODILON KEENE M.D. 10/28/39550:01 PM documented in this encounterKindred Healthcare10-27-2022 Instructions* Patient Instructions* Ramona Flores RN - 08/16/2022 11:[address] Denny at [phone] documented in this encounterKindred Healthcare10-27-2022 History of Present illness Narrative* Ramona Flores RN - 08/16/2022 9:17 AM EDT August 16, 2022 09 Lou Oliver here for treatment # 4 of 5 Transportation home verified: yes, with family Is patient on immunotherapy? No. 0925 Xanax 0.25 mg po given prior to Gamma Knife SRS per order of MD. 09 Patient assisted to treatment room. Gamma Knife SRS begun. 1008 Gamma Knife Stereotactic Radiosurgery completed. 1015 Patient then discharged. Ramona Flores RN documented in this encounterKindred Healthcare10-27-2022 History of Present illness Narrative* Xochilt Muller MD - 08/16/2022 12:00 AM EDT LOU OLIVER [id number] 08/16/2022 [facility] [place] Keisha De Oliveira [facility] Center [facility] STEREOTACTIC RADIOSURGERY (SRS) DAILY PROCEDURE NOTE DATE [...] identity and treatment site. CBCT obtained which wasco-registered using the treatment planning system. Adaptive replan was verified and approved. Once the beam was turned on, the patient position and target location were continuously monitored during delivery of the SRS using infrared tracking. At all points of decision- making with regard to patientsetup, I conferred with the medical consultant to approve the final setup. I was [...] We will continue as planned. Electronically Signed XOCHILT MULLER M.D. 22:02 PM documented in this encounterKindred Healthcare10-26-2022 History of Present illness Narrative* Gisselle Lindsay RN - 08/15/2022 9:53 AM EDT August 15, 2022 0940 Lou Oliver here [...] discharged. Gisselle Lindsay RN documented in this encounterKindred Healthcare10-26-2022 History of Present illness Narrative* [facility] Provider - 08/15/2022 12:00 AM EDT LOU OLIVER [id number] 08/15/2022 [facility] [place] Keisha DeO liveira Brain Tumor and Neuro-On[facility] Center [facility] STEREOTACTIC RADIOSURGERY (SRS) DAILY PROCEDURE NOTE DATE [...] identity and treatment site. CBCT obtained which wasco-registered using the treatment planning system. Adaptive replan was verified and approved. Once the beam was turned on, the patient position and target location were continuously monitored during delivery of the SRS using infrared tracking. At all points of decision- making with regard to patientsetup, I conferred with the medical consultant to approve the final setup. I was [...] MANTILLA M.D. 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 COURSE: definitive Area Treated: GKRS -- Left RITCHIE corado Current dose: 1000 cGy in 2 fx [...] by: Momo Keene MD documented in this encounterKindred Healthcare10-25-2022 History of Present illness Narrative* Gisselle Lindsay RN - 08/14/2022 9:57 AM EDT August 14, 2022 0928 Lou Oliver here [...] discharged. Gisselle Lindsay RN documented in this encounterKindred Healthcare10-25-2022 History of Present illness Narrative* Momo Keene MD - 08/14/2022 12:00 AM EDT LOU OLIVER [id number] 08/14/2022 [facility] [place] Keisha De Oliveira [facility] Center [facility] STEREOTACTIC RADIOSURGERY (SRS) DAILY PROCEDURE NOTE DATE [...] identity and treatment site. CBCT obtained which wasco-registered using the treatment planning system. Adaptive replan was verified and approved. Once the beam was turned on, the patient position and target location were continuously monitored during delivery of the SRS using infrared tracking. At all points of decision- making with regard to patientsetup, I conferred with the medical consultant to approve the final setup. I was [...] We will continue as planned. Electronically Signed ODILON KEENE M.D. 24:02 PM documented in this encounterKindred Healthcare10-18-2022 History of Present illness Narrative* Tori Abbott, RT(R) - 08/07/2022 9:00 AM EDT Radiology Service Progress Note PATIENT NAME: Lou Oliver DATE OF SERVICE: August 07, 2022 TIME: 8:15 AM PATIENT IDENTITY VERIFICATION COMPLETED USING TWO (2) IDENTIFIERS: Name and Date of confirmedby patient verbally and Name and Date of [...] 07, 2022 8:15 AM documented in this encounterKindred Healthcare10-18-2022 History of Present illness Narrative* Momo Keene MD - 08/07/2022 12:00 AM EDT LOU OLIVER [id number] 08/07/2022 [facility] [place] Keisha De Oliveira [facility]On[facility] Center Department of Radiation Oncology [facility] RADIATION ONCOLOGY GAMMA KNIFE SIMULATION NOTE DATE [...] be initiated after treatment planning. Electronically Signed Odilon Keene M.D. 1:49 AM documented in this encounterKindred Healthcare10-18-2022 History of Present illness Narrative* Momo Keene MD - 08/07/2022 12:00 AM EDT LOU OLIVER [id number] 08/07/2022 [facility] [place] Department of Radiation Oncology [facility] RADIATION ONCOLOGY GAMMA KNIFE TREATMENT PLANNING NOTE For reasons stated in the consult note, LOU OLIVER is a candidate for definitive radiosurgery.Based on review and interpretation of the relevant [...] dose, isodose distribution and DVH. Electronically Signed Odilon Keene M.D. / SHARLENE 25:38 PM documented in this encounterKindred Healthcare10-17-2022 Miscellaneous Notes* Telephone Encounter - Eunice Camarena Therapist - 08/06/2022 12:20 PM EDT I spoke with Lou regarding Gamma Knife Mask Simulation day on 08/07/2022. Instructed Lou willseport to [facility] at 7:00 am for mask simulation. Pt will then be escorted to imaging for MRI/CT. Does not have to be NPO. Directions given regarding data communications technician parking at main entrance. Instructed to ignore MyChart reminders and voice messages. All questions answered and Lou receptive to information and verbalized understanding. Isha Dickerson documented in this encounterKindred Healthcare10-06-2022 History of Present illness Narrative* Era Madden APRN.DEALMAKER - 07/26/2022 2:30 PM EDT Images from the original note were not included. [facility] [place] Follow-up Visit Follow-up note July 26, 2022 [...] significant neuro impairments secondary to PD in 2020 before onset of treatment. With patient not [...] questions and did my best to answer. However,many of these questions were specifically regarding surgery, post op... and explained that these best be discussed with the surgeons. As with PD, I cannot predict the growth of her meningioma and explained to the patient. However, I have reviewed the surgery office visit notes and agree with their c oncerns and considerations regarding treatment. 3. Small fiber neuropathy - ICD9: 356.9, ICD10: G62.9 Numbness in feet, based on exam, I suspect is due to small fiber neuropathy. Basic neuropathy lab workup has been unremarkable. Discussed further evaluations - I suspect EMG/NCV would be unremarkableand patient declines skin bx. Discussed treatment options [...] like the timing she feels nauseated is shorterthan before however. Denies falls. Balance has been off. Has been using her cane often. Has been yelling out in her sleep and acting out dreams. No wandering or getting out of bed. Denies speech changes; states she livesalone so sometimes it is hard to tell. Slightly more difficulty with fine motor coordination. Feelsunstable. Goes to class three times per week; delay the disease. States this has been very helpful. Has been walking daily and using stationary bike. Has also been doing her own housekeeping as well. States she is sleeping much better. Has been sleeping 5-6 hours. Has been taking gabapentin which she feels has helped with her symptoms. Feet don't feel completelynormal but it has helped. Feels a tingling [...] tremor with arms outstretched. No tremor at rest.No drift seen. FALLON of pronation and supination, [...] Abs Lymph 1.00 - 4.00 k/uL 1.65 [place]% % 9.5 Abs [place] <0.87 k/uL 0.36 Eosin% % 2.9 Abs [...] DATE OF EXAM: Mar 26 2022 12:08PM REMA 0295 - MRI BRAIN WO/W IVCON [...] 02/15/2021. Otherwise stable appearance of the brain. Pot Fluxer: DOMENIC Transcribe Date/Time: Mar 26 2022 12:43P [...] chronic. Discussed medication and as there has beenno changes on exam since time of previous [...] TID and today she reports improvement in symptoms.Still noting mild n/t with occasional pain overnight, however, she feels symptoms are managed with current dose of medication. She denies SE. Will continue as previously prescribed. RF provided. D32.0 Intracranial meningioma (HCC) Comment: Following with neurosurgery. Plan is for Gamma Knife later this month. Continue follow up as scheduled. Era Madden APRN.ADRIANNA I spent a total of 40 minutes on the date of the service which included preparing to see the patient, [id number] patient care, completing clinical documentation, obtaining and/or reviewing separately obtained history, performing a medically appropriate examination, counseling and educating the pat ient/family/caregiver, and ordering medications, tests, or procedures. PDMP website checked and validated. All prescriptions have been APPROPRIATELY filled. No suspiciousactivity was identified. July 26, 2022 Era Madden APRN.ADRIANNA documented in this encounterKindred Healthcare08-22-2022 History of Present illness Narrative* Raman Greenwood MD - 06/11/2022 10:19 AM EDT Images from the original note were not included. Raman Greenwood MD Interventional Cardiology [facility] [place] [address] [place], [place] [address] [phone] Chief Complaint Patient presents with: Follow Up HISTORY OF PRESENT ILLNESS: Ms. Oliver is a 77 year old female seen in my office for follow-up prior history of sinus tachycardia related to medications she is doing well from the cardiac point of view EKG today sinus rhythm heart rate of 66 blood pressures well controlled without blood pressure medication no angina no signsor symptoms of congestive heart failure Patient is [...] to correct any errors. documented in this encounterKindred Healthcare08-01-2022 History of Present illness Narrative* Ranjan Connolly Jr., MD - 05/21/2022 4:49 PM EDT ESTABLISHED PATIENT VISIT CHIEF COMPLAINT: Follow Up, [...] things start to slow down a bit aswell as movements. Can also feel anxious. States [...] HPI. SKIN:Negative for lesions, rash, and itching. HEMATOLOGIC/LYMPHATIC/IMMUNOLOGIC:Negative for prolonged bleeding, bruising easily or swollen [...] units) Date Value 08/01/2016 Negative URINALYSIS Specific [place], Ur Date Value Ref Range Status 10/09/2013 [...] TABLET BY MOUTH AT 11PM AND 1 TABLETIN THE AM. diclofenac sodium (VOLTAREN) 1 % [...] significant neuro impairments secondary to PD in 2020 before onset of treatment. With patient not [...] questions and did my best to answer. However,many of these questions were specifically regarding surgery, post op... and explained that these best be discussed with the surgeons. As with PD, I cannot predict the growth of her meningioma and explained to the patient. However, I have reviewed the surgery office visit notes and agree with their c oncerns and considerations regarding treatment. 3. Small fiber neuropathy - ICD9: 356.9, ICD10: G62.9 Numbness in feet, based on exam, I suspect is due to small fiber neuropathy. Basic neuropathy lab workup has been unremarkable. Discussed further evaluations - I suspect EMG/NCV would be unremarkableand patient declines skin bx. Discussed treatment options and needing to weigh risks vs benefits. Pt would like to trial gabapentin. Will place on 100mg TID. SE and ADRs d/w pt. Follow up in 2 months. Ranjan Connolly MD PDMP website checked and validated. All prescriptions have been APPROPRIATELY filled. No suspiciousactivity was identified. 05/21/2022 by Ranjan Connolly MD I spent a total of 50+ minutes on the date of the service which included preparing to see the patient, [id number] patient care, completing clinical documentation, obtaining and/or reviewing separately obtained history, performing a medically appropriate examination, counseling and educating the pa tient/family/caregiver, ordering medications, tests, or procedures, independently interpreting results (not separately reported) and communicating results to the patient/family/caregiver. documented in this encounterKindred Healthcare07-14-2022 History of Present illness Narrative* Momo Keene MD - 05/03/2022 1:00 PM EDT Radiation Oncology - New Patient/Consult Note This [...] physician by way of the shared medical record,or letter to requesting physician via US mail. [...] based mass measuring 3.3 cm in greatest dimensionwith mild localized mass effect and without vasogenic edema. An MRI cervical spine was obtained 05/10/20 showing mild cervical spondylosis without high-grade canal or foraminal stenosis. Her Parkinsonian symptoms improved with Sinemet 25/100 mg TID and her neck discomfort improved withphysical therapy. However her cervical discomfort recurred and [...] measuring up to 3.3 cm, likely representing ameningioma with only mild localized mass effect and [...] TABLET BY MOUTH AT 11PM AND 1 TABLETIN THE AM. diclofenac sodium (VOLTAREN) 1 % [...] Maternal Grandmother SOCIAL HISTORY: Lives alone in [facility]. Manages ADLs fine on her own. Has [...] now is reasonable given her current good performancestatus. Should her tumor progress, her health or age may limit her candidacy for surgery and Gamma Knife. The risks and benefits of Gamma Knife radiosurgery were discussed in detail with Ms. Oliver. Additionally, the expected side effect profile and logistics of Gamma Knife were fully explored. At this time she is leaning toward surgery or observation but would like to take time to consider the options. Our contact information was provided and reviewed with plan for titrating her if she elects to pursue radiation. Ronald Zuleta MD PGY-2, Radiation Oncology [phone] STAFF ADDENDUM I saw and evaluated the patient. I personally obtained the cool and critical portions of the historyand physical exam. I reviewed the resident's documentation and discussed the patient with the resident. I agree with the resident's medical decision making as documented in the resident's note. 76 year old woman with left lateral sphenoid meningioma having grown approximately 1 mm/year since diagnosis in 2020. I discussed options, focusing on fractionated GKRS, also discussing conventionally fractionated RT. R/B/A/P of fractionated GKRS were discussed. She would like to think about her options including surgery, which she discussed with Dr. Rodriguez,and get back to us. Signed by: Momo Keene MD cc: Lucía Rizzo [id number] [facility] [facility] [place] [place] [address] Deandra Ely [address] [facility] [address] Semaj Rodriguez MD - [facility] documented in this encounterKindred Healthcare07-14-2022 History of Present illness Narrative* Semaj Rodriguez MD - 05/03/2022 8:21 AM EDT Images from the original note were not included. SECTION OF SKULL BASE SURGERY MINIMALLY INVASIVE CRANIAL BASE & PITUITARY SURGERY PROGRAM Keisha De Oliveira [facility]- On[facility] Center & [facility] Ne[facility] [place], [facility] [place] TELEMEDICINE FOLLOW-UP VISIT This is a virtual visit. It required patient-provider interaction for the medical decision making as documented below. CC: MD Deandra Lewis MD Assessment/Plan: Lou Oliver presents for follow-up of left lateral sphenoid wing meningioma that has demonstrated small amount of growth, approximately 1 mm/year over the last couple years with new adjacent brain edema. She does have some speech and cognitive symptoms but difficult to say whe ther meningioma has any relation or if this is due to Parkinson's disease or age. We discussed thatat this trajectory, I am concerned that in [...] presence of existing edema. My main concern withsurgery is that she might have slightly more [...] decision. I spent approximately 40 minutes of vivr-yk-juyd time with the patient of which >50% was spent in counseling the patient and/or coordinating care Semaj Rodriguez MD Staff, Skull Base & Cerebrovascular Surgery Department of Neurological Surgery [facility] Subjective: Left handed Mild WFD - finding [...] TABLET BY MOUTH AT 11PM AND 1 TABLETIN THE AM. diclofenac sodium (VOLTAREN) 1 % [...] not present in 2019 documented in this encounterKindred Healthcare07-12-2022 History of Present illness Narrative* Lucía Rizzo MD - 05/01/2022 2:24 PM EDT Reason for Visit Patient presents with: Established [...] more trouble keeping her balance. Uses her canknow. Side effect of the levodopa was nausea, [...] F) Resp 12 Ht 163.8 cm (5' 4.5) Wt 65.3 kg (144 lb) SpO2 97% [...] B12 deficiency - ICD9: 266.2, ICD10: E53.8 Lucía Rizzo MD documented in this encounterKindred Healthcare06-21-2022 History of Present illness Narrative* Hina Murillo PA-C - 04/10/2022 1:25 PM EDT Images from the original note were not included. This note was created using English TVriter. Subjective Lou Oliver is a 76 year [...] TABLET BY MOUTH AT 11PM AND 1 TABLETIN THE AM. 180 tablet 1 diclofenac sodium [...] worsen. Hina Murillo PA-C documented in this encounterKindred Healthcare06-21-2022 Instructions* Patient Instructions* Hina Murillo PA-C - 04/10/2022 11:32 AM EDT Claritin otc for itch documented in this encounterKindred Healthcare06-16-2022 Miscellaneous Notes* Telephone Encounter - Deandra Ely APRN.CNP - 04/05/2022 10:05 AM EDT Reviewed patient's case with Dr. Rodriguez and he is recommending seeing both himself and rad onc for consideration of fractionated GK. Relayed to patient. Deandra Ely APRN.CNP documented in this encounterKindred Healthcare06-08-2022 History of Present illness Narrative* Deandra Ely APRN.CNP - 03/28/2022 9:30 AM EDT Images from the original note were not included. Neurological [place] [facility] NEURO-ONCOLOGY VIRTUAL VISIT NOTE [...] increase FLAIR changes when compared to 2020. - Images reviewed with the patient - [...] patient/family/caregiver and care coordination (not separately reported). Deandra Ely APRN.[facility] Certified Nurse Practitioner cc: Semaj Rodriguez MD [...] TABLET BY MOUTH AT 11PM AND 1 TABLETIN THE AM. diclofenac sodium (VOLTAREN) 1 % [...] DATE OF EXAM: Mar 26 2022 12:08PM REMA 0295 - MRI BRAIN WO/W IVCON [...] 02/15/2021. Otherwise stable appearance of the brain. Pot Fluxer: DOMENIC Transcribe Date/Time: Mar 26 2022 12:43P Dictated by : TANYA ADAMES MD This examination was interpreted and the report reviewed and electronically signed by: TANYA ADAMES MD on Mar 26 2022 12:54PM EST Complete Results documented in this encounterKindred Healthcare06-06-2022 History of Present illness Narrative* RT Radha(R) - 03/26/2022 11:20 AM EDT Radiology Service Progress Note DATE OF SERVICE: [...] 2022 TIME: 11:41 AM documented in this encounterKindred Healthcare05-23-2022 Miscellaneous Notes* Telephone Encounter - Ranjan Connolly Jr., MD - 03/12/2022 6:18 PM EDT Please schedule appt with Erica RIVERA. If needed, perhaps movement disorders [facility] in [place] could also assist if willing. Thank you, Ranjan Connolly MD documented in this encounterKindred HealthcareEval[facility] note* Diagnosis Benign neoplasm of brain, unspecified brain region (HCC) documented in this encounter [facility]* Diagnosis Intracranial meningioma (HCC)- Primary Benign neoplasm of cerebral meninges documented in this encounter [facility]* Diagnosis Allergic contact dermatitis due to plants, except food- Primary Contact dermatitis and other eczema due to plants (except food) documented in this encounter [facility]* Diagnosis Balance problem- Primary Other symptoms involving nervous and musculoskeletal systems Hypothyroidism, unspecified type Numbness and tingling Disturbance of skin sensation Vitamin D deficiency Unspecified vitamin D deficiency Vitamin B12 deficiency Other B-complex deficiencies documented in this encounter [facility]* Diagnosis Meningioma (HCC)- Primary Benign neoplasm of cerebral meninges [facility]* Diagnosis Intracranial meningioma (HCC)- Primary Benign neoplasm of cerebral meninges documented in this encounter [facility]* Diagnosis Parkinson disease (HCC)- Primary Paralysis agitans Intracranial meningioma (HCC) Benign neoplasm of cerebral meninges Small fiber 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 documented in this encounter [facility]* Diagnosis Essential hypertension, benign- Primary documented in this encounter [facility]* Diagnosis Parkinson disease (HCC)- Primary Paralysis [...] of cerebral meninges documented in this [facility]* Diagnosis Meningioma (HCC) Benign neoplasm of cerebral meninges Meningioma (HCC) Benign neoplasm of cerebral meninges Meningioma (HCC) Benign neoplasm of cerebral meninges Meningioma (HCC) Benign neoplasm of cerebral meninges Meningioma (HCC) Benign neoplasm of cerebral meninges Meningioma (HCC) Benign neoplasm of cerebral meninges documented in this encounter [facility]* Diagnosis Meningioma (HCC)- Primary Benign neoplasm [...] [facility] Diagnosis Recurrent major depressive disorder, remission status unspecified (HCC)- Primary Intracranial meningioma (HCC) Benign neoplasm of cerebral meninges Parkinson disease (HCC) Paralysis agitans Essential hypertension, benign Mixed hyperlipidemia Major depressive disorder, single episode, 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) Major depressive disorder, single episode, severe, without mention of psychotic behavior [facility]* Diagnosis Hypothyroidism Unspecified hypothyroidism Essential hypertension, benign [facility]* [...] unspecified kyphosis type [facility]* Diagnosis Neck pain- Primary Cervicalgia Neck muscle weakness Unspecified musculoskeletal disorders and symptoms referable to neck [facility] Diagnosis Neck pain- Primary Cervicalgia Neck muscle weakness Unspecified musculoskeletal disorders and symptoms referable to neck [facility]* Diagnosis Other cervical disc degeneration at C5-C6 level- Primary Kyphosis of thoracic region, unspecified kyphosis type Neck muscle weakness Unspecified musculoskeletal disorders and symptoms referable to neck Neck deformity, acquired Acquired deformity of neck [facility] Diagnosis Neck pain- Primary Cervicalgia Neck muscle weakness Unspecified musculoskeletal disorders and symptoms referable to neck [facility] Diagnosis Neck pain- Primary Cervicalgia Neck muscle weakness Unspecified musculoskeletal disorders and symptoms referable to neck [facility]* Diagnosis Neck pain- Primary Cervicalgia Neck muscle weakness Unspecified musculoskeletal disorders and symptoms referable to neck documented in this encounter [facility] note* Diagnosis Neck pain- Primary Cervicalgia Neck muscle weakness Unspecified musculoskeletal disorders and symptoms referable to neck [facility]* Diagnosis Neck pain- Primary Cervicalgia Neck muscle weakness Unspecified musculoskeletal disorders and symptoms referable to neck [facility]* Diagnosis Meningioma (HCC)- Primary Benign neoplasm of cerebral meninges [facility]* Diagnosis Syncope, unspecified syncope type- Primary [facility]* Diagnosis Neck pain- Primary Cervicalgia Neck muscle weakness Unspecified musculoskeletal disorders and symptoms referable to neck [facility]* Diagnosis Parkinson disease (HCC)- Primary Paralysis agitans Intracranial meningioma (HCC) Benign neoplasm of cerebral meninges documented [facility]* Diagnosis Mixed hyperlipidemia [facility]* Diagnosis Neck pain- Primary Cervicalgia Neck muscle weakness Unspecified musculoskeletal disorders and symptoms referable to neck documented in this encounter [facility] noteNo assessment information availableWAdena [facility] Work Phone: Evaluation note* Diagnosis Neck pain- Primary Cervicalgia Neck muscle weakness Unspecified musculoskeletal disorders and symptoms referable to neck [facility]* Diagnosis Hypotension, unspecified hypotension type- Primary Parkinson disease (HCC) Paralysis agitans Adjustment disorder with anxiety Panic attacks Panic disorder without agoraphobia [facility]* Diagnosis Parkinson's disease (HCC)- Primary Paralysis agitans Orthostatic hypotension Imbalance Abnormality of gait Dysphagia, unspecified type [facility]* Diagnosis Cervical spondylosis without myelopathy- Primary Myofascial pain Mylagia and myositis, unspecified documented in this encounter [facility] note* Diagnosis Hypotension, unspecified hypotension type documented in this encounter [facility] note* Diagnosis Tachycardia- Primary Tachycardia, unspecified Mixed hyperlipidemia documented in this encounter [facility] note* Diagnosis Hypotension, unspecified hypotension type- Primary Abdominal bloating Flatulence, eructation, and gas pain Need for influenza vaccination Need for prophylactic vaccination and inoculation against influenza documented in this encounter [facility] note* Diagnosis Parkinson's disease, unspecified whether dyskinesia present, unspecified whether manifestations fluctuate- Primary Orthostatic intolerance documented in this encounter [facility] note* Diagnosis Parkinson's disease, unspecified whether dyskinesia present, unspecified whether manifestations fluctuate Dysphagia, unspecified type documented in this encounter [facility] note* Diagnosis Dysphagia, unspecified type- Primary documented in this encounter [facility] note* Diagnosis Cervical spondylosis without myelopathy- Primary documented in this encounter [facility] note* Diagnosis Cervical spondylosis without myelopathy- Primary documented in this encounter [facility] note* Diagnosis Parkinson's disease, unspecified whether dyskinesia present, unspecified whether manifestations fluctuate- Primary Mixed hyperlipidemia Hypothyroidism, unspecified type Gastroesophageal reflux disease, unspecified whether esophagitis present Hypotension, unspecified hypotension type Vitamin D deficiency Unspecified vitamin D deficiency documented in this encounter [facility] note* Diagnosis Cervical spondylosis without myelopathy- Primary documented in this encounter [facility] note* Diagnosis Cervical spondylosis without myelopathy- Primary documented in this encounter [facility] note* Diagnosis Dysphagia, unspecified type- Primary Parkinson's disease, unspecified whether dyskinesia present, unspecified whether manifestations fluctuate documented in this encounter [facility] note* Diagnosis Dysphagia, unspecified type documented in this encounter [facility] note* Diagnosis Cervical spondylosis without myelopathy- Primary documented in this encounter [facility] note* Diagnosis Cervical spondylosis without myelopathy- Primary Myofascial pain Mylagia and myositis, unspecified Parkinson's disease with dyskinesia, unspecified whether manifestations fluctuate documented in this encounter [facility] note* Diagnosis Dysphagia, unspecified type Abnormal findings on diagnostic imaging of digestive system Nonspecific (abnormal) findings on radiological and other examination of gastrointestinal tract documented in this encounter [facility] note* Diagnosis Syncope, unspecified syncope type- Primary Mixed hyperlipidemia Parkinson's disease with dyskinesia, unspecified whether manifestations fluctuate Gastroesophageal reflux disease, unspecified whether esophagitis present documented in this encounter [facility] note* Diagnosis Orthostatic hypotension- Primary Syncope, unspecified syncope type Parkinson's disease with dyskinesia, unspecified whether manifestations fluctuate (HCC) Mixed hyperlipidemia documented in this encounter [facility] note* Diagnosis Myofascial pain- Primary Mylagia and myositis, unspecified [facility]* Diagnosis Rash- Primary Rash and other nonspecific skin eruption Sore throat Acute pharyngitis [facility]* Diagnosis Gastroesophageal reflux disease with esophagitis without hemorrhage- Primary Schatzki's ring Congenital tracheoesophageal fistula, esophageal atresia and stenosis Other constipation [facility]* Diagnosis Orthostatic hypotension Syncope, unspecified syncope type Parkinson's disease with dyskinesia, unspecified whether manifestations fluctuate (HCC) documented in this encounter [facility] note* Diagnosis Myofascial pain- Primary Mylagia and myositis, unspecified Cervical spondylosis without myelopathy Parkinson's disease with dyskinesia, unspecified whether manifestations fluctuate (HCC) documented in this encounter [facility] note* Diagnosis Parkinson disease (HCC) Paralysis agitans [facility]* Diagnosis Rash- Primary Rash and other nonspecific skin eruption [facility]* Diagnosis Adjustment disorder with anxiety Hypotension, unspecified hypotension type Hypothyroidism, unspecified type documented in this encounter [facility] note* Diagnosis Depression, unspecified depression type- Primary [...] Other B-complex deficiencies documented in this encounter [facility] note* Diagnosis Hypothyroidism, unspecified type- Primary Essential hypertension, benign Mixed hyperlipidemia Myofascial pain- Primary Mylagia and myositis, unspecified Cervical spondylosis without myelopathy documented in this encounter [facility] note* Diagnosis Hypothyroidism, unspecified type- Primary Essential hypertension, benign Mixed hyperlipidemia Meningioma (HCC) Benign neoplasm of cerebral meninges [facility]* Diagnosis Hypothyroidism, unspecified type- Primary Essential hypertension, benign Mixed hyperlipidemia Gastroesophageal reflux disease with esophagitis without hemorrhage- Primary Other constipation [facility]* Diagnosis Hypothyroidism, unspecified type- Primary Essential hypertension, benign Mixed hyperlipidemia Myofascial pain- Primary Mylagia and myositis, unspecified Cervical spondylosis without myelopathy Parkinson's disease with dyskinesia, unspecified whether manifestations fluctuate (HCC) documented in this encounter [facility] note* Diagnosis Hypothyroidism, unspecified type- Primary Essential hypertension, benign Mixed hyperlipidemia Myofascial pain- Primary Mylagia and myositis, unspecified [facility]* Diagnosis Hypothyroidism, unspecified type- Primary Essential hypertension, benign Mixed hyperlipidemia Neck pain Cervicalgia Kyphosis of thoracic region, unspecified kyphosis type documented [facility] this [facility]* Diagnosis Hypothyroidism, unspecified type- Primary Essential hypertension, benign Mixed hyperlipidemia Hyponatremia- Primary Hyposmolality and/or hyponatremia Hypotension, unspecified hypotension type Parkinson's disease with dyskinesia, unspecified whether manifestations fluctuate (HCC) Orthostatic hypotension Weight loss Loss of weight documented in this encounter [facility] note* Diagnosis Hypothyroidism, unspecified type- Primary Essential hypertension, benign Mixed hyperlipidemia Parkinson's disease with dyskinesia, unspecified whether manifestations fluctuate (HCC)- Primary [facility]* Diagnosis Hypothyroidism, unspecified type- Primary Essential hypertension, benign Mixed hyperlipidemia Impaired functional mobility, balance, gait, and endurance- Primary Parkinson's disease with dyskinesia, unspecified whether manifestations fluctuate (HCC) documented in this encounter [facility] note* Diagnosis Hypothyroidism, unspecified type- Primary Essential hypertension, benign Mixed hyperlipidemia Parkinson's disease with dyskinesia, unspecified whether manifestations fluctuate (HCC)- Primary Dysphagia, unspecified type documented in this encounter [facility] note* Diagnosis Hypothyroidism, unspecified type- Primary Essential hypertension, benign Mixed hyperlipidemia Impaired functional mobility, balance, gait, and endurance- Primary documented in this encounter [facility] note* Diagnosis Hypothyroidism, unspecified type- Primary Essential hypertension, benign Mixed hyperlipidemia Impaired functional mobility, balance, gait, and endurance- Primary documented in this encounter [facility] note* Diagnosis Hypothyroidism, unspecified type- Primary Essential hypertension, benign Mixed hyperlipidemia Impaired functional mobility, balance, gait, and endurance- Primary Parkinson's disease with dyskinesia, unspecified whether manifestations fluctuate (HCC) documented in this encounter [facility] note* Diagnosis Hypothyroidism, unspecified type- Primary Essential hypertension, benign Mixed hyperlipidemia Hyponatremia- Primary Hyposmolality and/or hyponatremia Gastroesophageal reflux disease with esophagitis without hemorrhage Orthostatic hypotension documented in this encounter [facility] note* Diagnosis Hypothyroidism, unspecified type- Primary Essential hypertension, benign Mixed hyperlipidemia Orthostatic hypotension documented in this encounter [facility] note* Diagnosis Hypothyroidism, unspecified type- Primary Essential hypertension, benign Mixed hyperlipidemia Impaired functional mobility, balance, gait, and endurance- Primary Parkinson's disease with dyskinesia, unspecified whether manifestations fluctuate (HCC) documented in this encounter [facility] note* Diagnosis Hypothyroidism, unspecified type- Primary Essential hypertension, benign Mixed hyperlipidemia Problem with voice production- Primary Problems with voice production Parkinson's disease with dyskinesia, unspecified whether manifestations fluctuate (HCC) Dysphagia, unspecified type documented in this encounter [facility] note* Diagnosis Hypothyroidism, unspecified type- Primary Essential hypertension, benign Mixed hyperlipidemia Impaired functional mobility, balance, gait, and endurance- Primary Parkinson's disease with dyskinesia, unspecified whether manifestations fluctuate (HCC) documented in this encounter [facility] note* Diagnosis Hypothyroidism, unspecified type- Primary Essential hypertension, benign Mixed hyperlipidemia Dysphagia, unspecified type- Primary Problem with voice production Problems with voice production documented in this encounter [facility] note* Diagnosis Hypothyroidism, unspecified type- Primary Essential hypertension, benign Mixed hyperlipidemia Parkinson's disease with dyskinesia, unspecified whether manifestations fluctuate (HCC)- Primary Orthostatic hypotension documented in this encounter [facility] note* Diagnosis Hypothyroidism, unspecified type- Primary Essential hypertension, benign Mixed hyperlipidemia Mixed hyperlipidemia documented in this encounter [facility] note* Diagnosis Hypothyroidism, unspecified type- Primary Essential hypertension, benign Mixed hyperlipidemia Impaired functional mobility, balance, gait, and endurance- Primary Parkinson's disease with dyskinesia, unspecified whether manifestations fluctuate (HCC) documented [facility]* Diagnosis Hypothyroidism, unspecified type- Primary Essential hypertension, benign Mixed hyperlipidemia Dysphagia, unspecified type- Primary documented [facility] this [facility]* Diagnosis Hypothyroidism, unspecified type- Primary Essential hypertension, benign Mixed hyperlipidemia Anxiety- Primary Anxiety state, unspecified Parkinson's disease with dyskinesia, unspecified whether manifestations fluctuate (HCC) documented in this encounter [facility] note* Diagnosis Hypothyroidism, unspecified type- Primary Essential hypertension, benign Mixed hyperlipidemia Moderate episode of recurrent major depressive disorder (HCC)- Primary Parkinson's disease with dyskinesia, unspecified whether manifestations fluctuate (HCC) Anxiety Anxiety state, unspecified EVAN (generalized anxiety disorder) Generalized anxiety disorder Substance or medication-induced anxiety disorder (HCC) Other specified drug-induced mental disorder documented [facility]* Diagnosis Hypothyroidism, unspecified type- Primary Essential hypertension, benign Mixed hyperlipidemia Anxiety- Primary Anxiety state, unspecified Parkinson's disease with dyskinesia, unspecified whether manifestations fluctuate (HCC) documented in this encounter [facility] note* Diagnosis Hypothyroidism, unspecified type- Primary Essential hypertension, benign Mixed hyperlipidemia EVAN (generalized anxiety disorder)- Primary Generalized anxiety disorder Parkinson's disease with dyskinesia, unspecified whether manifestations fluctuate (HCC) Recurrent major depressive disorder, in full remission (HCC) documented [facility]* Diagnosis Hypothyroidism, unspecified type- Primary Essential hypertension, benign Mixed hyperlipidemia Anxiety Anxiety state, unspecified [facility]* Diagnosis Hypothyroidism, unspecified type- Primary Essential hypertension, benign Mixed hyperlipidemia Generalized anxiety disorder- Primary documented [facility]* Diagnosis Hypothyroidism, unspecified type- Primary Essential hypertension, benign Mixed hyperlipidemia Moderate episode of recurrent major depressive disorder (HCC)- Primary Meningioma (HCC) Benign neoplasm of cerebral meninges EVAN (generalized anxiety disorder) Generalized anxiety disorder Essential hypertension, benign Orthostatic hypotension Parkinson's disease with dyskinesia, unspecified whether manifestations fluctuate (HCC) Anemia, unspecified type documented [facility]* Diagnosis Hypothyroidism, unspecified type- Primary Essential hypertension, benign Mixed hyperlipidemia Generalized anxiety disorder- Primary documented in this encounter [facility] note* Diagnosis Hypothyroidism, unspecified type- Primary Essential hypertension, benign Mixed hyperlipidemia Generalized anxiety disorder- Primary documented in this encounter [facility] note* Diagnosis Hypothyroidism, unspecified type- Primary Essential hypertension, benign Mixed hyperlipidemia Adjustment disorder with anxiety Anxiety Anxiety state, unspecified documented in this encounter [facility] note* Diagnosis Hypothyroidism, unspecified type- Primary Essential hypertension, benign Mixed hyperlipidemia Orthostatic hypotension- Primary Acute pain of left knee Essential hypertension, benign Parkinson's disease with dyskinesia and fluctuating manifestations (HCC) documented in this encounter [facility] note* Diagnosis Hypothyroidism, unspecified type- Primary Essential hypertension, benign Mixed hyperlipidemia EVAN (generalized anxiety disorder)- Primary Generalized anxiety disorder Recurrent major depressive disorder, in full remission Substance or medication-induced anxiety disorder (HCC) Other specified drug-induced mental disorder Parkinson's disease with dyskinesia, unspecified whether manifestations fluctuate (HCC) documented in this encounter [facility] note* Diagnosis Hypothyroidism, unspecified type- Primary Essential hypertension, benign Mixed hyperlipidemia Anxiety Anxiety state, unspecified documented in this encounter [facility] note* Diagnosis Hypothyroidism, unspecified type- Primary Essential hypertension, benign Mixed hyperlipidemia Hypothyroidism, unspecified type documented in this encounter [facility] note* Diagnosis Hypothyroidism, unspecified type- Primary Essential hypertension, benign Mixed hyperlipidemia Superficial burn of right hand, unspecified site of hand, initial encounter- Primary documented in this encounter [facility] note* Diagnosis Hypothyroidism, unspecified type- Primary Essential hypertension, benign Mixed hyperlipidemia Meningioma (HCC) Benign neoplasm of cerebral meninges documented in this encounter [facility] note* Diagnosis Hypothyroidism, unspecified type- Primary Essential hypertension, benign Mixed hyperlipidemia Anxiety Anxiety state, unspecified documented in this encounter [facility] note* Diagnosis Hypothyroidism, unspecified type- Primary Essential hypertension, benign Mixed hyperlipidemia Anxiety Anxiety state, unspecified documented in this encounter [facility] note* Diagnosis Hypothyroidism, unspecified type- Primary Essential hypertension, benign Mixed hyperlipidemia Benign neoplasm of meninges (HCC)- Primary Benign neoplasm of cerebral meninges [facility] Additional Instructions You have low blood pressure with standing called orthostatic hypotension. It is probably from a combination of being mildly dehydrated and also from the Parkinson's medication. Continue your current meds. Plenty of fluids. Follow-up with Dr. Connolly for further evaluation and adjustments as needed of your Parkinson's meds. You will be started on a new medication called Florinef which is a steroid which will help you retain fluids and hopefully increase your blood pressureWAdena Pike [facility] Center Work Phone: Reason for referral (narrative)* Diagnostic Procedure Only (Routine) - Closed Specialty Diagnoses / Procedures Referred By Contac t Referred To Contact XR IMAGING Diagnoses Kyphosis of thoracic region, unspecified kyphosis type Procedures XR THORACIC LIMITED 2V AP/LAT RADEX SPINE THORACIC 2 VIEWS Lucía Rizzo MD [address] [place] [address] Xr Imaging Referral ID Status Reason Start Date Expiration Date V isits Requested Visits Authorized [id number] Closed Auto-Generate d Referral 04/05/2023 05/04/2024 1 1 * Physical Therapy (Routine) - Authorized Specialty Diagnoses / Procedures Referred By Contac t Referred To Contact [facility] Diagnoses Neck pain Neck muscle weakness Procedures CONSULT TO PHYSICAL THERAPY PHYSICAL THERAPY EVALUATION HIGH COMPLEX 45 MINS Lucía Rizzo MD [address] [place] [address] [facility] [place] [address] [place] [address] Referral ID Status Reason Start Date Expiration Date Visits Requested Visits Authorized [id number] Authorized PCP Requested Referral Auto-Generate d Referral 04/05/2023 04/04/2024 99 99 * Diagnostic Procedure Only (Routine) - Closed Specialty Diagnoses / Procedures Referred By Contac t Referred To Contact XR IMAGING Diagnoses Neck pain Procedures XR CERV OTHER 4V AP/LAT/OBL RADEX SPINE CERVICAL 4 OR 5 VIEWS Lucía Rizzo MD [address] [place] [address] Xr Imaging Referral ID Status Reason Start Date Expiration Date V isits Requested Visits Authorized [id number] Closed Auto-Generate d Referral 04/05/2023 05/04/2024 1 1 [facility] for referral (narrative)* Outpatient Procedure (Routine) - Closed [facility]ty Diagnoses / [facility] Diagnoses Dysphagia, unspecified type Abnormal findings on diagnostic imaging of digestive system Procedures EGD DIAGNOSTIC EGD DIAGNOSTIC ESOPHAGOGASTRODUODENOSC OPY TRANSORAL DIAGNOSTIC Era Gagnon PA-C [address] [place] [address] [facility] [place] [address] [place] [address] Referral ID Status Reason Start Date Expiration Date V isits Requested Visits Authorized [id number] Closed Auto-Generate d Referral 11/19/2023 11/19/2024 1 1 [facility] for referral (narrative)* Diagnostic Procedure Only (Routine) - Closed Specialty Diagnoses / [facility] X[facility] Diagnoses Kyphosis of thoracic region, unspecified kyphosis type Procedures XR THORACIC LIMITED 2V AP/LAT RADEX SPINE THORACIC 2 VIEWS Lucía Rizzo MD [facility] [place], [place] [address] [place] [address] Referral ID Status Reason Start Date Expiration Date V isits Requested Visits Authorized [id number] Closed Auto-Generate d Referral 04/05/2023 05/04/2024 1 1 * Diagnostic Procedure Only (Routine) - Closed Specialty Diagnoses / [facility] XR IMAG[facility] Diagnoses Neck pain Procedures XR CERV OTHER 4V AP/LAT/OBL RADEX SPINE CERVICAL 4 OR 5 VIEWS Lucía Rizzo MD [address] [place] [address] [place] [address] Referral ID Status Reason Start Date Expiration Date V isits Requested Visits Authorized [id number] Closed Auto-Generate d Referral 04/05/2023 05/04/2024 1 1 [facility] for visit Narrative* Diagnostic Procedure Only (Routine) - Closed Specialty Diagnoses / Procedures Referred By Contac t Referred To Contact XR IMAGING Diagnoses Dysphagia, unspecified type Procedures XR MODIFIED BARIUM SWALLOW W SPEECH THERAPY RADIOLOGIC EXAM SWALLOW FUNCTION CONTRAST STUDY Zhane Sylvester PA-C [address] [place] [address] [place] [address] Referral ID Status Reason Start Date Expiration Date V isits Requested Visits Authorized [id number] Closed Auto-Generate d Referral 08/02/2023 08/31/2024 1 1 [facility] for visit Narrative* Outpatient Procedure (Routine) - Closed Specialty Diagnoses / Procedures [facility] Diagnoses Dysphagia, unspecified type Abnormal findings on diagnostic imaging of digestive system Procedures EGD DIAGNOSTIC EGD DIAGNOSTIC ESOPHAGOGASTRODUODENOSC OPY TRANSORAL DIAGNOSTIC Era Gagnon PA-C [address] [place] [address] [facility] [place] [address] [place] [address] Referral ID Status Reason Start Date Expiration Date V isits Requested Visits Authorized [id number] Closed Auto-Generate d Referral 11/19/2023 11/19/2024 1 1 [facility] for visit Narrative* Diagnostic Procedure Only (Routine) - Closed Specialty Diagnoses / Procedures [facility] To [facility] XR IMAGING Diagnoses Kyphosis of thoracic region, unspecified kyphosis type Procedures XR THORACIC LIMITED 2V AP/LAT RADEX SPINE THORACIC 2 VIEWS Lucía Rizzo MD [address] [place] [address] [place] [address] Referral ID Status Reason Start Date Expiration Date V isits Requested Visits Authorized [id number] Closed Auto-Generate d Referral 04/05/2023 05/04/2024 1 1 [facility] for visit Narrative* MRI/CT (Routine) - Closed Specialty Diagnoses / Procedures [facility] To [facility] MR IMAGING Diagnoses Meningioma (HCC) Procedures MRI BRAIN WO/W IVCON MRI BRAIN BRAIN STEM W/O W/CONTRAST MATERIAL Deandra Ely APRN.DEALMAKER [address] [place] [address] Phone: tel: fax: [place] [phone] Referral ID Status Reason Start Date Expiration Date V isits Requested Visits Authorized [id number] Closed Auto-Generate d Referral 08/04/2024 09/03/2025 1 1 [facility] Chief Complaint and Reason for Visit Chief Complaint sob Chief Complaint SYNCOPE Chief Complaint SYNCOPE GENERAL ILLNESS Advance Directives No Advanced Directives Records FoundDocuments on File Type Date Recorded Patient Warp Doffer Expl anation Advance Directive(s) 06/17/2019 8:42 AM Date Activated Date Inactivated Comments 07/14/2024 6:53 PM Question Answer Comments Full Code Order Discussed With: Patient Advance Directive Response Recorded Date/ Time Living Will No October 04, 020 11:41am Power of Heel Attacher No October 04, 2020 11:41am Documents on File Type Date Recorded Patient Warp Doffer Expl anation Advance Directive(s) 06/17/2019 8:38 AM Advance Directive(s) 06/17/2019 8:42 AM Advance Directive(s) 06/04/2019 12:21 PM Documents on File Type Date Recorded Patient Warp Doffer Expl anation Advance Directive(s) 06/17/2019 8:42 AM Advance Directive Response Recorded Date/ Time Living Will No May 31 2:42pm Power of Heel Attacher No May 31 2 023 2:42pm Advance Directive Response Recorded Date/ Time Living Will Yes September 20 8:20pm Power of Heel Attacher Yes September 20, 2023 8:20pm Name of Medical Power of Heel Attacher nia rios September 20, 2023 8:20pm Date Activated Date Inactivated Comments 07/14/2024 6:53 PM 07/15/2024 8:47 PM Date Activated Date Inactivated Comments 07/14/2024 6:53 PM 07/15/2024 8:47 PM Question Answer Comments Full Code Order Discussed With: Patient Assessments No Assessments Information Available Reason for Referral Specialty Diagnoses / Procedures Referred By Contac t Referred To Contact [facility] Diagnoses Neck pain Neck muscle weakness Procedures PT REHAB FOLLOW UP ORDER THERAPEUTIC EXERCISES RE, EA 15 MIN. Pt [facility] [address] [place] [address] [facility] [address] [address] Referral ID Status Reason Start Date Expiration Date Visits Requested Visits Authorized [id number] Pending Review PCP Requested Referral Auto-Generate d Referral 04/09/2023 07/08/2023 1 1 Specialty Diagnoses / Procedures Referred By Contac t Referred To Contact Pain Management Diagnoses Kyphosis of thoracic region, unspecified kyphosis type Other cervical disc degeneration at C5-C6 level Neck muscle weakness Neck deformity, acquired Procedures CONSULT TO PAIN MGT OFFICE/OUTPATIENT [facility] 60-74 MINUTES Lucía Rizzo MD [address] [place] [address] Referral ID Status Reason Start Date Expiration Date Visits Requested Visits Authorized [id number] Authorized PCP Requested Referral 04/11/2023 07/10/2023 1 1 Specialty Diagnoses / Procedures Referred By Contac t Referred To Contact [facility] Diagnoses Neck pain Neck muscle weakness Procedures PT REHAB FOLLOW UP ORDER THERAPEUTIC EXERCISES RE, EA 15 MIN. Lucía Rizzo MD [address] [place] [address] [facility] [address] [address] Referral ID Status Reason Start Date Expiration Date Visits Requested Visits Authorized [id number] Pending Review PCP Requested Referral Auto-Generate d Referral 05/02/2023 07/31/2023 1 1 Specialty Diagnoses / Procedures Referred By Contac t Referred To Contact MR IMAGING Diagnoses Meningioma (HCC) Procedures MRI BRAIN WO/W IVCON MRI BRAIN BRAIN STEM W/O W/CONTRAST MATERIAL Deandra Ely, ALEKSANDRA.DEALMAKER [address] [place] [address] Mr Imaging Referral ID Status Reason Start Date Expiration Date Visits Requested Visits Authorized [id number] Pending Review Auto-Generat ed Referral 05/06/2023 06/04/2024 1 1 Specialty Diagnoses / Procedures Referred By Contac t Referred To Contact Diagnoses Parkinson's disease (HCC) Dysphagia, unspecified type Procedures CONSULT TO SPEECH THERAPY Zhane Sylvester PA-C [address] [place] [address] Referral ID Status Reason Start Date Expiration Date Visits Requested Visits Authorized [id number] Authorized PCP Requested Referral 06/18/2023 09/16/2023 99 99 Specialty Diagnoses / Procedures Referred By Contac t Referred To Contact Neurology Diagnoses Orthostatic hypotension Procedures CONSULT TO NEUROLOGY OFFICE/OUTPATIENT [facility] 60-74 MINUTES Zhane Sylvester PA-C [address] [place], [place] [id number] Referral ID Status Reason Start Date Expiration Date Visits Requested Visits Authorized [id number] Authorized PCP Requested Referral 06/18/2023 06/17/2024 1 1 Specialty Diagnoses / Procedures Referred By Contac t Referred To Contact Gastroenterology Diagnoses Dysphagia, unspecified type Procedures CONSULT TO GASTROENTEROLOGY OFFICE/OUTPATIENT [facility] 60-74 MINUTES Zhane Sylvester PA-C [address] [place] [address] Referral ID Status Reason Start Date Expiration Date Visits Requested Visits Authorized [id number] Authorized PCP Requested Referral 3 08/01/2024 1 1 Specialty Diagnoses / Procedures Referred By Contac t Referred To Contact XR IMAGING Diagnoses Dysphagia, unspecified type Procedures XR MODIFIED BARIUM SWALLOW W SPEECH THERAPY RADIOLOGIC EXAM SWALLOW FUNCTION CONTRAST STUDY Zhane Sylvester PA-C [address] [place] [address] [place] [address] Referral ID Status Reason Start Date Expiration Date Visits Requested Visits Authorized [id number] Pending Review Auto-Generat ed Referral 3 08/31/2024 1 1 Specialty Diagnoses / Procedures Referred By Contac t Referred To Contact Jak Diaz MD [address] [address] Referral ID Status Reason Start Date Expiration Date Visits Re quested Visits Authorized [id number] Closed 1 1 Specialty Diagnoses / Procedures Referred By Contac t Referred To Contact Neurology Diagnoses Orthostatic hypotension Syncope, unspecified syncope type Parkinson's disease with dyskinesia, unspecified whether manifestations fluctuate (HCC) Procedures CONSULT TO NEUROLOGY OFFICE/OUTPATIENT NEW [facility] 60 MINUTES Sandra Centeno PA-C [address] [place] [address] Sayra Mabry MD [address] [address] Referral ID Status Reason Start Date Expiration Date Visits Requested Visits Authorized [id number] Authorized PCP Requested Referral 01/13/2024 01/12/2025 1 1 Specialty Diagnoses / Procedures Referred By Contac t Referred To Contact Diagnoses Parkinson's disease with dyskinesia, unspecified whether manifestations fluctuate (HCC) Procedures PROVIDER ORDERED FOLLOW UP OFFICE/OUTPATIENT [facility] 60 MINUTES Sayra Mabry MD [address] [place] [address] Referral ID Status Reason Start Date Expiration Date Visits Requested Visits Authorized [id number] Authorized PCP Requested Referral 06/25/2024 03/25/2025 1 1 Specialty Diagnoses / Procedures Referred By Contac t Referred To Contact MR IMAGING Diagnoses Meningioma (HCC) Procedures MRI BRAIN WO/W IVCON MRI BRAIN BRAIN STEM W/O W/CONTRAST MATERIAL Deandra Ely APRN.DEALMAKER [address] [place] [phone] [facility] [place] [address] Referral ID Status Reason Start Date Expiration Date V isits Requested Visits Authorized [id number] Closed Auto-Generate d Referral 11/07/2023 12/06/2024 1 1 Referral ID Status Reason Start Date Expiration Date Visits Requested Visits Authorized [id number] Authorized PCP Requested Referral 10/31/2024 07/31/2025 1 1 Specialty Diagnoses / Procedures Referred By Contac t Referred To Contact [facility] Diagnoses Parkinson's disease with dyskinesia, unspecified whether manifestations fluctuate (HCC) Procedures CONSULT TO PHYSICAL THERAPY PHYSICAL THERAPY EVALUATION HIGH COMPLEX 45 MINS Sayra Mabry MD [address] [address] [facility] [place] [address] [place] [address] Referral ID Status Reason Start Date Expiration Date Visits Requested Visits Authorized [id number] Pending Review PCP Requested Referral Auto-Generate d Referral 4 07/31/2025 99 99 Specialty Diagnoses / Procedures Referred By Contac t Referred To Contact [facility] Diagnoses Parkinson's disease with dyskinesia, unspecified whether manifestations fluctuate (HCC) Dysphagia, unspecified type Procedures CONSULT TO SPEECH THERAPY OFFICE/OUTPATIENT [facility] 60 MINUTES Sayra Mabry MD [address] [place] [phone] [facility] [place] [address] [place] [address] Referral ID Status Reason Start Date Expiration Date Visits Requested Visits Authorized [id number] Pending Review Auto-Generat ed Referral 4 08/11/2025 1 1 Referral ID Status Reason Start Date Expiration Date Visits Requested Visits Authorized [id number] Authorized PCP Requested Referral 02/03/2025 11/05/2025 1 1 Specialty Diagnoses / Procedures Referred By Contac t Referred To Contact Psychology Diagnoses Parkinson's disease with dyskinesia, unspecified whether manifestations fluctuate (HCC) Anxiety Procedures CONSULT TO PSYCHOLOGY OFFICE/OUTPATIENT [facility] 60 MINUTES Sayra Mabry MD [address] [address] Referral ID Status Reason Start Date Expiration Date Visits Requested Visits Authorized [id number] Pending Review PCP Requested Referral 11/05/2024 11/05/2025 1 1 Specialty Diagnoses / Procedures Referred By Contac t Referred To Contact Diagnoses Parkinson's disease with dyskinesia, unspecified whether manifestations fluctuate (HCC) Anxiety Procedures CONSULT TO PSYCHIATRY OFFICE/OUTPATIENT [facility] 60 MINUTES Sayra Mabry MD [address] [address] Referral ID Status Reason Start Date Expiration Date Visits Requested Visits Authorized [id number] Pending Review PCP Requested Referral 11/05/2024 11/05/2025 1 1 Specialty Diagnoses / Procedures Referred By Contac t Referred To Contact Diagnoses Anxiety Juan Carlos Ordoñez MD [address] [place] [address] Referral ID Status Reason Start Date Expiration Date V isits Requested Visits Authorized [id number] Pending Review 1 1 Specialty Diagnoses / Procedures Referred By Timothy ojeda Referred To Contact Diagnoses Parkinson's disease with dyskinesia, unspecified whether manifestations fluctuate (HCC) Anxiety Procedures PROVIDER ORDERED FOLLOW UP OFFICE/OUTPATIENT [facility] 60 MINUTES Juan Carlos Ordoñez MD [address] [place] [address] Referral ID Status Reason Start Date Expiration Date Visits Requested Visits Authorized [id number] Authorized PCP Requested Referral 12/10/2024 11/09/2025 1 1 Medications Administered Section Inactive Administered Medications - up to 3 most recent administrations Medication Order MAR Action Action Date Dose Rate Site BUPivacaine (PF) 0.5 % (5 mg/mL) 5 mg injection 5 mg, OTHER, ONCE, 1 dose, On Sat08/07/23 at 1030 Given by [facility] 08/07/2023 10:13 AM EDT 5 mg iohexol 300 mg IV injection (OMNIPAQUE 300) 300 mg, OTHER, ONCE, 1 dose, On Sat08/07/23 at 1030 Given by [facility] 08/07/2023 10:13 AM EDT 300 mg lidocaine (PF) 10 mg/mL (1 %) 100 mg injection (XYLOCAINE) 100 mg, OTHER, ONCE, 1 dose, On Sat08/07/23 at 1030 Given by [facility] 08/07/2023 10:13 AM EDT 100 mg Inactive Administered Medications - up to 3 most recent administrations Medication Order MAR Action Action Date Dose Rate Site BUPivacaine (PF) 0.5 % (5 mg/mL) 5 mg injection 5 mg, OTHER, ONCE, 1 dose, On Sat08/26/23 at 1000 Given by [facility] 08/26/2023 2:04 PM EST 5 mg iohexol 300 mg IV injection (OMNIPAQUE 300) 300 mg, OTHER, ONCE, 1 dose, On Sat08/26/23 at 1000 Given by [facility] 08/26/2023 2:05 PM EST 300 mg lidocaine (PF) 10 mg/mL (1 %) 100 mg injection (XYLOCAINE) 100 mg, OTHER, ONCE, 1 dose, On Sat08/26/23 at 1000 Given by [facility] 08/26/2023 2:04 PM EST 100 mg Inactive Administered Medications - up to 3 most recent administrations Medication Order MAR Action Action Date Dose Rate Site 0.9% NaCl 10 mL flush 10 mL, OTHER, ONCE, 1 dose, On Sat10/02/23 at 1000 Given by [facility] 10/02/2023 10:02 AM EST 10 mL bupivacaine(PF) 0.75 % (7.5 mg/mL) 7.5 mg injection (MARCAINE PF) 7.5 mg, OTHER, ONCE, 1 dose, On Sat10/02/23 at 1000 Given by [facility] 10/02/2023 10:02 AM EST 7.5 mg dexAMETHasone sodium phosphate 10 mg injection (DECADRON) 10 mg, OTHER, ONCE, 1 dose, On Sat10/02/23 at 1000 Given by [facility] 10/02/2023 10:02 AM EST 10 mg lidocaine (PF) 20 mg/mL (2 %) 200 mg injection (XYLOCAINE) 200 mg, OTHER, ONCE, 1 dose, On Sat10/02/23 at 1000 Given by [facility] 10/02/2023 10:03 AM EST 200 mg [...] or prosecute any alcohol or drug abuse patient.[facility] HealthcareIn the event this information is protected by the Federal Confidentiality of Alcohol and Drug Abuse Patient Records regulations: The Federal rules restrict any use of the information to criminally investigate or prosecute any alcohol or drug abuse patient.[facility] HealthcareIn the event this information is protected by the Federal Confidentiality of Alcohol and Drug Abuse Patient Records regulations: The Federal rules restrict any use of the information to criminally investigate or prosecute any alcohol or drug abuse patient.[facility] HealthcareIn the event this information is protected by the Federal Confidentiality of Alcohol and Drug Abuse Patient Records regulations: The Federal rules restrict any use of the information to criminally investigate or prosecute any alcohol or drug abuse patient.[facility] HealthcareIn the event this information is protected by the Federal Confidentiality of Alcohol and Drug Abuse Patient Records regulations: The Federal rules restrict any use of the information to criminally investigate or prosecute any alcohol or drug abuse patient.[facility] HealthcareIn the event this information is protected by the Federal Confidentiality of Alcohol and Drug Abuse Patient Records regulations: The Federal rules restrict any use of the information to criminally investigate or prosecute any alcohol or drug abuse patient.[facility] HealthcareIn the event this information is protected by the Federal Confidentiality of Alcohol and Drug Abuse Patient Records regulations: The Federal rules restrict any use of the information to criminally investigate or prosecute any alcohol or drug abuse patient.[facility] HealthcareIn the event this information is protected by the Federal Confidentiality of Alcohol and Drug Abuse Patient Records regulations: The Federal rules restrict any use of the information to criminally investigate or prosecute any alcohol or drug abuse patient.[facility] HealthcareIn the event this information is protected by the Federal Confidentiality of Alcohol and Drug Abuse Patient Records regulations: The Federal rules restrict any use of the information to criminally investigate or prosecute any alcohol or drug abuse patient.[facility] HealthcareIn the event this information is protected by the Federal Confidentiality of Alcohol and Drug Abuse Patient Records regulations: The Federal rules restrict any use of the information to criminally investigate or prosecute any alcohol or drug abuse patient.[facility] HealthcareIn the event this information is protected by the Federal Confidentiality of Alcohol and Drug Abuse Patient Records regulations: The Federal rules restrict any use of the information to criminally investigate or prosecute any alcohol or drug abuse patient.[facility] HealthcareIn the event this information is protected by the Federal Confidentiality of Alcohol and Drug Abuse Patient Records regulations: The Federal rules restrict any use of the information to criminally investigate or prosecute any alcohol or drug abuse patient.[facility] HealthcareIn the event this information is protected by the Federal Confidentiality of Alcohol and Drug Abuse Patient Records regulations: The Federal rules restrict any use of the information to criminally investigate or prosecute any alcohol or drug abuse patient.[facility] HealthcareIn the event this information is protected by the Federal Confidentiality of Alcohol and Drug Abuse Patient Records regulations: The Federal rules restrict any use of the information to criminally investigate or prosecute any alcohol or drug abuse patient.[facility] HealthcareIn the event this information is protected by the Federal Confidentiality of Alcohol and Drug Abuse Patient Records regulations: The Federal rules restrict any use of the information to criminally investigate or prosecute any alcohol or drug abuse patient.[facility] HealthcareIn the event this information is protected by the Federal Confidentiality of Alcohol and Drug Abuse Patient Records regulations: The Federal rules restrict any use of the information to criminally investigate or prosecute any alcohol or drug abuse patient.[facility] HealthcareIn the event this information is protected by the Federal Confidentiality of Alcohol and Drug Abuse Patient Records regulations: The Federal rules restrict any use of the information to criminally investigate or prosecute any alcohol or drug abuse patient.[facility] HealthcareIn the event this information is protected by the Federal Confidentiality of Alcohol and Drug Abuse Patient Records regulations: The Federal rules restrict any use of the information to criminally investigate or prosecute any alcohol or drug abuse patient.[facility] HealthcareIn the event this information is protected by the Federal Confidentiality of Alcohol and Drug Abuse Patient Records regulations: The Federal rules restrict any use of the information to criminally investigate or prosecute any alcohol or drug abuse patient.[facility] HealthcareIn the event this information is protected by the Federal Confidentiality of Alcohol and Drug Abuse Patient Records regulations: The Federal rules restrict any use of the information to criminally investigate or prosecute any alcohol or drug abuse patient.[facility] HealthcareIn the event this information is protected by the Federal Confidentiality of Alcohol and Drug Abuse Patient Records regulations: The Federal rules restrict any use of the information to criminally investigate or prosecute any alcohol or drug abuse patient.[facility] HealthcareIn the event this information is protected by the Federal Confidentiality of Alcohol and Drug Abuse Patient Records regulations: The Federal rules restrict any use of the information to criminally investigate or prosecute any alcohol or drug abuse patient.[facility] HealthcareIn the event this information is protected by the Federal Confidentiality of Alcohol and Drug Abuse Patient Records regulations: The Federal rules restrict any use of the information to criminally investigate or prosecute any alcohol or drug abuse patient.[facility] HealthcareIn the event this information is protected by the Federal Confidentiality of Alcohol and Drug Abuse Patient Records regulations: The Federal rules restrict any use of the information to criminally investigate or prosecute any alcohol or drug abuse patient.[facility] HealthcareIn the event this information is protected by the Federal Confidentiality of Alcohol and Drug Abuse Patient Records regulations: The Federal rules restrict any use of the information to criminally investigate or prosecute any alcohol or drug abuse patient.[facility] HealthcareIn the event this information is protected by the Federal Confidentiality of Alcohol and Drug Abuse Patient Records regulations: The Federal rules restrict any use of the information to criminally investigate or prosecute any alcohol or drug abuse patient.[facility] HealthcareIn the event this information is protected by the Federal Confidentiality of Alcohol and Drug Abuse Patient Records regulations: The Federal rules restrict any use of the information to criminally investigate or prosecute any alcohol or drug abuse patient.[facility] HealthcareIn the event this information is protected by the Federal Confidentiality of Alcohol and Drug Abuse Patient Records regulations: The Federal rules restrict any use of the information to criminally investigate or prosecute any alcohol or drug abuse patient.[facility] HealthcareIn the event this information is protected by the Federal Confidentiality of Alcohol and Drug Abuse Patient Records regulations: The Federal rules restrict any use of the information to criminally investigate or prosecute any alcohol or drug abuse patient.[facility] HealthcareIn the event this information is protected by the Federal Confidentiality of Alcohol and Drug Abuse Patient Records regulations: The Federal rules restrict any use of the information to criminally investigate or prosecute any alcohol or drug abuse patient.[facility] HealthcareIn the event this information is protected by the Federal Confidentiality of Alcohol and Drug Abuse Patient Records regulations: The Federal rules restrict any use of the information to criminally investigate or prosecute any alcohol or drug abuse patient.[facility] HealthcareIn the event this information is protected by the Federal Confidentiality of Alcohol and Drug Abuse Patient Records regulations: The Federal rules restrict any use of the information to criminally investigate or prosecute any alcohol or drug abuse patient.[facility] HealthcareIn the event this information is protected by the Federal Confidentiality of Alcohol and Drug Abuse Patient Records regulations: The Federal rules restrict any use of the information to criminally investigate or prosecute any alcohol or drug abuse patient.[facility] HealthcareIn the event this information is protected by the Federal Confidentiality of Alcohol and Drug Abuse Patient Records regulations: The Federal rules restrict any use of the information to criminally investigate or prosecute any alcohol or drug abuse patient.[facility] HealthcareIn the event this information is protected by the Federal Confidentiality of Alcohol and Drug Abuse Patient Records regulations: The Federal rules restrict any use of the information to criminally investigate or prosecute any alcohol or drug abuse patient.[facility] HealthcareIn the event this information is protected by the Federal Confidentiality of Alcohol and Drug Abuse Patient Records regulations: The Federal rules restrict any use of the information to criminally investigate or prosecute any alcohol or drug abuse patient.[facility] HealthcareIn the event this information is protected by the Federal Confidentiality of Alcohol and Drug Abuse Patient Records regulations: The Federal rules restrict any use of the information to criminally investigate or prosecute any alcohol or drug abuse patient.[facility] HealthcareIn the event this information is protected by the Federal Confidentiality of Alcohol and Drug Abuse Patient Records regulations: The Federal rules restrict any use of the information to criminally investigate or prosecute any alcohol or drug abuse patient.[facility] HealthcareIn the event this information is protected by the Federal Confidentiality of Alcohol and Drug Abuse Patient Records regulations: The Federal rules restrict any use of the information to criminally investigate or prosecute any alcohol or drug abuse patient.[facility] HealthcareIn the event this information is protected by the Federal Confidentiality of Alcohol and Drug Abuse Patient Records regulations: The Federal rules restrict any use of the information to criminally investigate or prosecute any alcohol or drug abuse patient.[facility] HealthcareIn the event this information is protected by the Federal Confidentiality of Alcohol and Drug Abuse Patient Records regulations: The Federal rules restrict any use of the information to criminally investigate or prosecute any alcohol or drug abuse patient.[facility] HealthcareIn the event this information is protected by the Federal Confidentiality of Alcohol and Drug Abuse Patient Records regulations: The Federal rules restrict any use of the information to criminally investigate or prosecute any alcohol or drug abuse patient.[facility] HealthcareIn the event this information is protected by the Federal Confidentiality of Alcohol and Drug Abuse Patient Records regulations: The Federal rules restrict any use of the information to criminally investigate or prosecute any alcohol or drug abuse patient.[facility] HealthcareIn the event this information is protected by the Federal Confidentiality of Alcohol and Drug Abuse Patient Records regulations: The Federal rules restrict any use of the information to criminally investigate or prosecute any alcohol or drug abuse patient.[facility] HealthcareIn the event this information is protected by the Federal Confidentiality of Alcohol and Drug Abuse Patient Records regulations: The Federal rules restrict any use of the information to criminally investigate or prosecute any alcohol or drug abuse patient.[facility] HealthcareIn the event this information is protected by the Federal Confidentiality of Alcohol and Drug Abuse Patient Records regulations: The Federal rules restrict any use of the information to criminally investigate or prosecute any alcohol or drug abuse patient.[facility] HealthcareIn the event this information is protected by the Federal Confidentiality of Alcohol and Drug Abuse Patient Records regulations: The Federal rules restrict any use of the information to criminally investigate or prosecute any alcohol or drug abuse patient.[facility] HealthcareIn the event this information is protected by the Federal Confidentiality of Alcohol and Drug Abuse Patient Records regulations: The Federal rules restrict any use of the information to criminally investigate or prosecute any alcohol or drug abuse patient.[facility] HealthcareIn the event this information is protected by the Federal Confidentiality of Alcohol and Drug Abuse Patient Records regulations: The Federal rules restrict any use of the information to criminally investigate or prosecute any alcohol or drug abuse patient.[facility] HealthcareIn the event this information is protected by the Federal Confidentiality of Alcohol and Drug Abuse Patient Records regulations: The Federal rules restrict any use of the information to criminally investigate or prosecute any alcohol or drug abuse patient.[facility] HealthcareIn the event this information is protected by the Federal Confidentiality of Alcohol and Drug Abuse Patient Records regulations: The Federal rules restrict any use of the information to criminally investigate or prosecute any alcohol or drug abuse patient.[facility] HealthcareIn the event this information is protected by the Federal Confidentiality of Alcohol and Drug Abuse Patient Records regulations: The Federal rules restrict any use of the information to criminally investigate or prosecute any alcohol or drug abuse patient.[facility] HealthcareIn the event this information is protected by the Federal Confidentiality of Alcohol and Drug Abuse Patient Records regulations: The Federal rules restrict any use of the information to criminally investigate or prosecute any alcohol or drug abuse patient.[facility] HealthcareIn the event this information is protected by the Federal Confidentiality of Alcohol and Drug Abuse Patient Records regulations: The Federal rules restrict any use of the information to criminally investigate or prosecute any alcohol or drug abuse patient.[facility] HealthcareIn the event this information is protected by the Federal Confidentiality of Alcohol and Drug Abuse Patient Records regulations: The Federal rules restrict any use of the information to criminally investigate or prosecute any alcohol or drug abuse patient.[facility] HealthcareIn the event this information is protected by the Federal Confidentiality of Alcohol and Drug Abuse Patient Records regulations: The Federal rules restrict any use of the information to criminally investigate or prosecute any alcohol or drug abuse patient.[facility] HealthcareIn the event this information is protected by the Federal Confidentiality of Alcohol and Drug Abuse Patient Records regulations: The Federal rules restrict any use of the information to criminally investigate or prosecute any alcohol or drug abuse patient.[facility] HealthcareIn the event this information is protected by the Federal Confidentiality of Alcohol and Drug Abuse Patient Records regulations: The Federal rules restrict any use of the information to criminally investigate or prosecute any alcohol or drug abuse patient.[facility] HealthcareIn the event this information is protected by the Federal Confidentiality of Alcohol and Drug Abuse Patient Records regulations: The Federal rules restrict any use of the information to criminally investigate or prosecute any alcohol or drug abuse patient.[facility] HealthcareIn the event this information is protected by the Federal Confidentiality of Alcohol and Drug Abuse Patient Records regulations: The Federal rules restrict any use of the information to criminally investigate or prosecute any alcohol or drug abuse patient.[facility] HealthcareIn the event this information is protected by the Federal Confidentiality of Alcohol and Drug Abuse Patient Records regulations: The Federal rules restrict any use of the information to criminally investigate or prosecute any alcohol or drug abuse patient.[facility] HealthcareIn the event this information is protected by the Federal Confidentiality of Alcohol and Drug Abuse Patient Records regulations: The Federal rules restrict any use of the information to criminally investigate or prosecute any alcohol or drug abuse patient.[facility] HealthcareIn the event this information is protected by the Federal Confidentiality of Alcohol and Drug Abuse Patient Records regulations: The Federal rules restrict any use of the information to criminally investigate or prosecute any alcohol or drug abuse patient.[facility] HealthcareIn the event this information is protected by the Federal Confidentiality of Alcohol and Drug Abuse Patient Records regulations: The Federal rules restrict any use of the information to criminally investigate or prosecute any alcohol or drug abuse patient.[facility] HealthcareIn the event this information is protected by the Federal Confidentiality of Alcohol and Drug Abuse Patient Records regulations: The Federal rules restrict any use of the information to criminally investigate or prosecute any alcohol or drug abuse patient.[facility] HealthcareIn the event this information is protected by the Federal Confidentiality of Alcohol and Drug Abuse Patient Records regulations: The Federal rules restrict any use of the information to criminally investigate or prosecute any alcohol or drug abuse patient.[facility] HealthcareIn the event this information is protected by the Federal Confidentiality of Alcohol and Drug Abuse Patient Records regulations: The Federal rules restrict any use of the information to criminally investigate or prosecute any alcohol or drug abuse patient.[facility] HealthcareIn the event this information is protected by the Federal Confidentiality of Alcohol and Drug Abuse Patient Records regulations: The Federal rules restrict any use of the information to criminally investigate or prosecute any alcohol or drug abuse patient.[facility] HealthcareIn the event this information is protected by the Federal Confidentiality of Alcohol and Drug Abuse Patient Records regulations: The Federal rules restrict any use of the information to criminally investigate or prosecute any alcohol or drug abuse patient.[facility] HealthcareIn the event this information is protected by the Federal Confidentiality of Alcohol and Drug Abuse Patient Records regulations: The Federal rules restrict any use of the information to criminally investigate or prosecute any alcohol or drug abuse patient.[facility] HealthcareIn the event this information is protected by the Federal Confidentiality of Alcohol and Drug Abuse Patient Records regulations: The Federal rules restrict any use of the information to criminally investigate or prosecute any alcohol or drug abuse patient.[facility] HealthcareIn the event this information is protected by the Federal Confidentiality of Alcohol and Drug Abuse Patient Records regulations: The Federal rules restrict any use of the information to criminally investigate or prosecute any alcohol or drug abuse patient.[facility] HealthcareIn the event this information is protected by the Federal Confidentiality of Alcohol and Drug Abuse Patient Records regulations: The Federal rules restrict any use of the information to criminally investigate or prosecute any alcohol or drug abuse patient.[facility] HealthcareIn the event this information is protected by the Federal Confidentiality of Alcohol and Drug Abuse Patient Records regulations: The Federal rules restrict any use of the information to criminally investigate or prosecute any alcohol or drug abuse patient.[facility] HealthcareIn the event this information is protected by the Federal Confidentiality of Alcohol and Drug Abuse Patient Records regulations: The Federal rules restrict any use of the information to criminally investigate or prosecute any alcohol or drug abuse patient.[facility] HealthcareIn the event this information is protected by the Federal Confidentiality of Alcohol and Drug Abuse Patient Records regulations: The Federal rules restrict any use of the information to criminally investigate or prosecute any alcohol or drug abuse patient.[facility] HealthcareIn the event this information is protected by the Federal Confidentiality of Alcohol and Drug Abuse Patient Records regulations: The Federal rules restrict any use of the information to criminally investigate or prosecute any alcohol or drug abuse patient.[facility] HealthcareIn the event this information is protected by the Federal Confidentiality of Alcohol and Drug Abuse Patient Records regulations: The Federal rules restrict any use of the information to criminally investigate or prosecute any alcohol or drug abuse patient.[facility] HealthcareIn the event this information is protected by the Federal Confidentiality of Alcohol and Drug Abuse Patient Records regulations: The Federal rules restrict any use of the information to criminally investigate or prosecute any alcohol or drug abuse patient.[facility] HealthcareIn the event this information is protected by the Federal Confidentiality of Alcohol and Drug Abuse Patient Records regulations: The Federal rules restrict any use of the information to criminally investigate or prosecute any alcohol or drug abuse patient.[facility] HealthcareIn the event this information is protected by the Federal Confidentiality of Alcohol and Drug Abuse Patient Records regulations: The Federal rules restrict any use of the information to criminally investigate or prosecute any alcohol or drug abuse patient.[facility] HealthcareIn the event this information is protected by the Federal Confidentiality of Alcohol and Drug Abuse Patient Records regulations: The Federal rules restrict any use of the information to criminally investigate or prosecute any alcohol or drug abuse patient.[facility] HealthcareIn the event this information is protected by the Federal Confidentiality of Alcohol and Drug Abuse Patient Records regulations: The Federal rules restrict any use of the information to criminally investigate or prosecute any alcohol or drug abuse patient.[facility] HealthcareIn the event this information is protected by the Federal Confidentiality of Alcohol and Drug Abuse Patient Records regulations: The Federal rules restrict any use of the information to criminally investigate or prosecute any alcohol or drug abuse patient.[facility] HealthcareIn the event this information is protected by the Federal Confidentiality of Alcohol and Drug Abuse Patient Records regulations: The Federal rules restrict any use of the information to criminally investigate or prosecute any alcohol or drug abuse patient.[facility] HealthcareIn the event this information is protected by the Federal Confidentiality of Alcohol and Drug Abuse Patient Records regulations: The Federal rules restrict any use of the information to criminally investigate or prosecute any alcohol or drug abuse patient.[facility] HealthcareIn the event this information is protected by the Federal Confidentiality of Alcohol and Drug Abuse Patient Records regulations: The Federal rules restrict any use of the information to criminally investigate or prosecute any alcohol or drug abuse patient.[facility] HealthcareIn the event this information is protected by the Federal Confidentiality of Alcohol and Drug Abuse Patient Records regulations: The Federal rules restrict any use of the information to criminally investigate or prosecute any alcohol or drug abuse patient.[facility] HealthcareIn the event this information is protected by the Federal Confidentiality of Alcohol and Drug Abuse Patient Records regulations: The Federal rules restrict any use of the information to criminally investigate or prosecute any alcohol or drug abuse patient.[facility] HealthcareIn the event this information is protected by the Federal Confidentiality of Alcohol and Drug Abuse Patient Records regulations: The Federal rules restrict any use of the information to criminally investigate or prosecute any alcohol or drug abuse patient.[facility] HealthcareIn the event this information is protected by the Federal Confidentiality of Alcohol and Drug Abuse Patient Records regulations: The Federal rules restrict any use of the information to criminally investigate or prosecute any alcohol or drug abuse patient.[facility] HealthcareIn the event this information is protected by the Federal Confidentiality of Alcohol and Drug Abuse Patient Records regulations: The Federal rules restrict any use of the information to criminally investigate or prosecute any alcohol or drug abuse patient.[facility] HealthcareIn the event this information is protected by the Federal Confidentiality of Alcohol and Drug Abuse Patient Records regulations: The Federal rules restrict any use of the information to criminally investigate or prosecute any alcohol or drug abuse patient.[facility] HealthcareIn the event this information is protected by the Federal Confidentiality of Alcohol and Drug Abuse Patient Records regulations: The Federal rules restrict any use of the information to criminally investigate or prosecute any alcohol or drug abuse patient.[facility] HealthcareIn the event this information is protected by the Federal Confidentiality of Alcohol and Drug Abuse Patient Records regulations: The Federal rules restrict any use of the information to criminally investigate or prosecute any alcohol or drug abuse patient.[facility] HealthcareIn the event this information is protected by the Federal Confidentiality of Alcohol and Drug Abuse Patient Records regulations: The Federal rules restrict any use of the information to criminally investigate or prosecute any alcohol or drug abuse patient.[facility] HealthcareIn the event this information is protected by the Federal Confidentiality of Alcohol and Drug Abuse Patient Records regulations: The Federal rules restrict any use of the information to criminally investigate or prosecute any alcohol or drug abuse patient.[facility] HealthcareIn the event this information is protected by the Federal Confidentiality of Alcohol and Drug Abuse Patient Records regulations: The Federal rules restrict any use of the information to criminally investigate or prosecute any alcohol or drug abuse patient.[facility] HealthcareIn the event this information is protected by the Federal Confidentiality of Alcohol and Drug Abuse Patient Records regulations: The Federal rules restrict any use of the information to criminally investigate or prosecute any alcohol or drug abuse patient.[facility] HealthcareIn the event this information is protected by the Federal Confidentiality of Alcohol and Drug Abuse Patient Records regulations: The Federal rules restrict any use of the information to criminally investigate or prosecute any alcohol or drug abuse patient.[facility] HealthcareIn the event this information is protected by the Federal Confidentiality of Alcohol and Drug Abuse Patient Records regulations: The Federal rules restrict any use of the information to criminally investigate or prosecute any alcohol or drug abuse patient.[facility] HealthcareIn the event this information is protected by the Federal Confidentiality of Alcohol and Drug Abuse Patient Records regulations: The Federal rules restrict any use of the information to criminally investigate or prosecute any alcohol or drug abuse patient.[facility] HealthcareIn the event this information is protected by the Federal Confidentiality of Alcohol and Drug Abuse Patient Records regulations: The Federal rules restrict any use of the information to criminally investigate or prosecute any alcohol or drug abuse patient.[facility] HealthcareIn the event this information is protected by the Federal Confidentiality of Alcohol and Drug Abuse Patient Records regulations: The Federal rules restrict any use of the information to criminally investigate or prosecute any alcohol or drug abuse patient.[facility] HealthcareIn the event this information is protected by the Federal Confidentiality of Alcohol and Drug Abuse Patient Records regulations: The Federal rules restrict any use of the information to criminally investigate or prosecute any alcohol or drug abuse patient.[facility] HealthcareIn the event this information is protected by the Federal Confidentiality of Alcohol and Drug Abuse Patient Records regulations: The Federal rules restrict any use of the information to criminally investigate or prosecute any alcohol or drug abuse patient.[facility] HealthcareIn the event this information is protected by the Federal Confidentiality of Alcohol and Drug Abuse Patient Records regulations: The Federal rules restrict any use of the information to criminally investigate or prosecute any alcohol or drug abuse patient.[facility] HealthcareIn the event this information is protected by the Federal Confidentiality of Alcohol and Drug Abuse Patient Records regulations: The Federal rules restrict any use of the information to criminally investigate or prosecute any alcohol or drug abuse patient.[facility] HealthcareIn the event this information is protected by the Federal Confidentiality of Alcohol and Drug Abuse Patient Records regulations: The Federal rules restrict any use of the information to criminally investigate or prosecute any alcohol or drug abuse patient.[facility] HealthcareIn the event this information is protected by the Federal Confidentiality of Alcohol and Drug Abuse Patient Records regulations: The Federal rules restrict any use of the information to criminally investigate or prosecute any alcohol or drug abuse patient.[facility] HealthcareIn the event this information is protected by the Federal Confidentiality of Alcohol and Drug Abuse Patient Records regulations: The Federal rules restrict any use of the information to criminally investigate or prosecute any alcohol or drug abuse patient.[facility] HealthcareIn the event this information is protected by the Federal Confidentiality of Alcohol and Drug Abuse Patient Records regulations: The Federal rules restrict any use of the information to criminally investigate or prosecute any alcohol or drug abuse patient.[facility] HealthcareIn the event this information is protected by the Federal Confidentiality of Alcohol and Drug Abuse Patient Records regulations: The Federal rules restrict any use of the information to criminally investigate or prosecute any alcohol or drug abuse patient.[facility] HealthcareIn the event this information is protected by the Federal Confidentiality of Alcohol and Drug Abuse Patient Records regulations: The Federal rules restrict any use of the information to criminally investigate or prosecute any alcohol or drug abuse patient.[facility] HealthcareIn the event this information is protected by the Federal Confidentiality of Alcohol and Drug Abuse Patient Records regulations: The Federal rules restrict any use of the information to criminally investigate or prosecute any alcohol or drug abuse patient.[facility] HealthcareIn the event this information is protected by the Federal Confidentiality of Alcohol and Drug Abuse Patient Records regulations: The Federal rules restrict any use of the information to criminally investigate or prosecute any alcohol or drug abuse patient.[facility] HealthcareIn the event this information is protected by the Federal Confidentiality of Alcohol and Drug Abuse Patient Records regulations: The Federal rules restrict any use of the information to criminally investigate or prosecute any alcohol or drug abuse patient.[facility] HealthcareIn the event this information is protected by the Federal Confidentiality of Alcohol and Drug Abuse Patient Records regulations: The Federal rules restrict any use of the information to criminally investigate or prosecute any alcohol or drug abuse patient.[facility] HealthcareIn the event this information is protected by the Federal Confidentiality of Alcohol and Drug Abuse Patient Records regulations: The Federal rules restrict any use of the information to criminally investigate or prosecute any alcohol or drug abuse patient.[facility] HealthcareIn the event this information is protected by the Federal Confidentiality of Alcohol and Drug Abuse Patient Records regulations: The Federal rules restrict any use of the information to criminally investigate or prosecute any alcohol or drug abuse patient.[facility] HealthcareIn the event this information is protected by the Federal Confidentiality of Alcohol and Drug Abuse Patient Records regulations: The Federal rules restrict any use of the information to criminally investigate or prosecute any alcohol or drug abuse patient.[facility]red HealthcareIn the event this information is protected by the Federal Confidentiality of Alcohol and Drug Abuse Patient Records regulations: The Federal rules restrict any use of the information to criminally investigate or prosecute any alcohol or drug abuse patient.[facility] HealthcareIn the event this information is protected by the Federal Confidentiality of Alcohol and Drug Abuse Patient Records regulations: The Federal rules restrict any use of the information to criminally investigate or prosecute any alcohol or drug abuse patient.[facility] HealthcareIn the event this information is protected by the Federal Confidentiality of Alcohol and Drug Abuse Patient Records regulations: The Federal rules restrict any use of the information to criminally investigate or prosecute any alcohol or drug abuse patient.[facility] HealthcareIn the event this information is protected by the Federal Confidentiality of Alcohol and Drug Abuse Patient Records regulations: The Federal rules restrict any use of the information to criminally investigate or prosecute any alcohol or drug abuse patient.[facility] HealthcareIn the event this information is protected by the Federal Confidentiality of Alcohol and Drug Abuse Patient Records regulations: The Federal rules restrict any use of the information to criminally investigate or prosecute any alcohol or drug abuse patient.[facility] HealthcareIn the event this information is protected by the Federal Confidentiality of Alcohol and Drug Abuse Patient Records regulations: The Federal rules restrict any use of the information to criminally investigate or prosecute any alcohol or drug abuse patient.[facility] HealthcareIn the event this information is protected by the Federal Confidentiality of Alcohol and Drug Abuse Patient Records regulations: The Federal rules restrict any use of the information to criminally investigate or prosecute any alcohol or drug abuse patient.[facility] HealthcareIn the event this information is protected by the Federal Confidentiality of Alcohol and Drug Abuse Patient Records regulations: The Federal rules restrict any use of the information to criminally investigate or prosecute any alcohol or drug abuse patient.[facility] HealthcareIn the event this information is protected by the Federal Confidentiality of Alcohol and Drug Abuse Patient Records regulations: The Federal rules restrict any use of the information to criminally investigate or prosecute any alcohol or drug abuse patient.[facility] HealthcareIn the event this information is protected by the Federal Confidentiality of Alcohol and Drug Abuse Patient Records regulations: The Federal rules restrict any use of the information to criminally investigate or prosecute any alcohol or drug abuse patient.[facility] HealthcareIn the event this information is protected by the Federal Confidentiality of Alcohol and Drug Abuse Patient Records regulations: The Federal rules restrict any use of the information to criminally investigate or prosecute any alcohol or drug abuse patient.[facility] HealthcareIn the event this information is protected by the Federal Confidentiality of Alcohol and Drug Abuse Patient Records regulations: The Federal rules restrict any use of the information to criminally investigate or prosecute any alcohol or drug abuse patient.[facility] HealthcareIn the event this information is protected by the Federal Confidentiality of Alcohol and Drug Abuse Patient Records regulations: The Federal rules restrict any use of the information to criminally investigate or prosecute any alcohol or drug abuse patient.[facility] HealthcareIn the event this information is protected by the Federal Confidentiality of Alcohol and Drug Abuse Patient Records regulations: The Federal rules restrict any use of the information to criminally investigate or prosecute any alcohol or drug abuse patient.[facility] HealthcareIn the event this information is protected by the Federal Confidentiality of Alcohol and Drug Abuse Patient Records regulations: The Federal rules restrict any use of the information to criminally investigate or prosecute any alcohol or drug abuse patient.[facility] HealthcareIn the event this information is protected by the Federal Confidentiality of Alcohol and Drug Abuse Patient Records regulations: The Federal rules restrict any use of the information to criminally investigate or prosecute any alcohol or drug abuse patient.[facility] HealthcareIn the event this information is protected by the Federal Confidentiality of Alcohol and Drug Abuse Patient Records regulations: The Federal rules restrict any use of the information to criminally investigate or prosecute any alcohol or drug abuse patient.[facility] HealthcareIn the event this information is protected by the Federal Confidentiality of Alcohol and Drug Abuse Patient Records regulations: The Federal rules restrict any use of the information to criminally investigate or prosecute any alcohol or drug abuse patient.[facility] HealthcareIn the event this information is protected by the Federal Confidentiality of Alcohol and Drug Abuse Patient Records regulations: The Federal rules restrict any use of the information to criminally investigate or prosecute any alcohol or drug abuse patient.[facility] HealthcareIn the event this information is protected by the Federal Confidentiality of Alcohol and Drug Abuse Patient Records regulations: The Federal rules restrict any use of the information to criminally investigate or prosecute any alcohol or drug abuse patient.[facility] HealthcareIn the event this information is protected by the Federal Confidentiality of Alcohol and Drug Abuse Patient Records regulations: The Federal rules restrict any use of the information to criminally investigate or prosecute any alcohol or drug abuse patient.[facility] HealthcareIn the event this information is protected by the Federal Confidentiality of Alcohol and Drug Abuse Patient Records regulations: The Federal rules restrict any use of the information to criminally investigate or prosecute any alcohol or drug abuse patient.[facility] Care Teams (unrecognized sec tion and content) Practice Support Specialist Relationship Specialty Start Date End Date Lucía Rizzo MD [address] [place], [place] [address] PCP - General Internal Medicine 08/06/16 Practice Support Specialist Relationship Specialty Start Date End Date Lucía Rizzo MD [address] [place], [place] [id number] PCP - General Internal Medicine 08/06/16 Practice Support Specialist Relationship Specialty Start Date End Date Lucía Rizzo MD [address] [place] [address] PCP - General Internal Medicine 08/06/16 Practice Support Specialist Relationship Specialty Start Date End Date Lucía Rizzo MD [address] [place] [address] PCP - General Internal Medicine 08/06/16 Practice Support Specialist Relationship Specialty Start Date End Date Lucía Rizzo MD [address] [place] [address] PCP - General Internal Medicine 08/06/16 Practice Support Specialist Relationship Specialty Start Date End Date Lucía Rizzo MD [address] [place] [address] PCP - General Internal Medicine 08/06/16 Practice Support Specialist Relationship Specialty Start Date End Date Lucía Rizzo MD [address] [place] [address] PCP - General Internal Medicine 08/06/16 Practice Support Specialist Relationship Specialty Start Date End Date Lucía Rizzo MD [address] [place] [address] PCP - General Internal Medicine 08/06/16 Practice Support Specialist Relationship Specialty Start Date End Date Lucía Rizzo MD [address] [place] [address] PCP - General Internal Medicine 08/06/16 Practice Support Specialist Relationship Specialty Start Date End Date Lucía Rizzo MD [address] [place] [address] PCP - General Internal Medicine 08/06/16 Practice Support Specialist Relationship Specialty Start Date End Date Lucía Rizzo MD [address] [place] [address] PCP - General Internal Medicine 08/06/16 Practice Support Specialist Relationship Specialty Start Date End Date Lucía Rizzo MD [address] [place] [address] PCP - General Internal Medicine 08/06/16 Practice Support Specialist Relationship Specialty Start Date End Date Lucía Rizzo MD [address] [place] [address] PCP - General Internal Medicine 08/06/16 Practice Support Specialist Relationship Specialty Start Date End Date Lucía Rizzo MD [address] [place] [address] PCP - General Internal Medicine 08/06/16 Practice Support Specialist Relationship Specialty Start Date End Date Lucía Rizzo MD [address] [place] [address] PCP - General Internal Medicine 08/06/16 Practice Support Specialist Relationship Specialty Start Date End Date Lucía Rizzo MD [address] [place] [address] PCP - General Internal Medicine 08/06/16 Practice Support Specialist Relationship Specialty Start Date End Date Lucía Rizzo MD [address] [place] [address] PCP - General Internal Medicine 08/06/16 Practice Support Specialist Relationship Specialty Start Date End Date Lucía Rizzo MD [address] [place] [address] PCP - General Internal Medicine 08/06/16 Practice Support Specialist Relationship Specialty Start Date End Date Lucía Rizzo MD [address] [place] [address] PCP - General Internal Medicine 08/06/16 Practice Support Specialist Relationship Specialty Start Date End Date Lucía Rizzo MD [address] [place] [address] PCP - General Internal Medicine 08/06/16 Practice Support Specialist Relationship Specialty Start Date End Date Lucía Rizzo MD [address] [place] [address] PCP - General Internal Medicine 08/06/16 Practice Support Specialist Relationship Specialty Start Date End Date Lucía Rizzo MD [address] [place] [address] PCP - General Internal Medicine 08/06/16 Practice Support Specialist Relationship Specialty Start Date End Date Lucía Rizzo MD [address] [place] [address] PCP - General Internal Medicine 08/06/16 Practice Support Specialist Relationship Specialty Start Date End Date Lucía Rizzo MD [address] [place] [address] PCP - General Internal Medicine 08/06/16 Practice Support Specialist Relationship Specialty Start Date End Date Lucía Rizzo MD [address] [place] [address] PCP - General Internal Medicine 08/06/16 Practice Support Specialist Relationship Specialty Start Date End Date Lucía Rizzo MD [address] [place] [address] PCP - General Internal Medicine 08/06/16 Practice Support Specialist Relationship Specialty Start Date End Date Lucía Rizzo MD [address] [place] [address] PCP - General Internal Medicine 08/06/16 Practice Support Specialist Relationship Specialty Start Date End Date Lucía Rizzo MD [address] [place] [address] PCP - General Internal Medicine 08/06/16 Practice Support Specialist Relationship Specialty Start Date End Date Lucía Rizzo MD [address] [facility] [address] PCP - General Internal Medicine 08/06/16 Practice Support Specialist Relationship Specialty Start Date End Date Lucía Rizzo MD [address] [facility] [address] PCP - General Internal Medicine 08/06/16 Practice Support Specialist Relationship Specialty Start Date End Date Lucía Rizzo MD [address] [place] [address] PCP - General Internal Medicine 08/06/16 Practice Support Specialist Relationship Specialty Start Date End Date Lucía Rizzo MD [address] [place] [address] PCP - General Internal Medicine 08/06/16 Practice Support Specialist Relationship Specialty Start Date End Date Lucía Rizzo MD [address] [place] [address] PCP - General Internal Medicine 08/06/16 Team Status: Active Member Role Status Dates Dr. Lucía Rizzo MD Family Provider Active Dr. Lucía Rizzo MD Primary Care Provider Active Team Status: Inactive Member Role Status Dates Dr. Lucía Rizzo MD Primary Care Provider Active Dr. Bay Barton MD Emergency Provider Active Practice Support Specialist Relationship Specialty Start Date End Date Lucía Rizzo MD [address] [place] [address] PCP - General Internal Medicine 08/06/16 Practice Support Specialist Relationship Specialty Start Date End Date Lucía Rizzo MD [address] [place] [address] PCP - General Internal Medicine 08/06/16 Practice Support Specialist Relationship Specialty Start Date End Date Lucía Rizzo MD [address] [facility] [address] PCP - General Internal Medicine 08/06/16 Practice Support Specialist Relationship Specialty Start Date End Date Lucía Rizzo MD [address] [facility] [address] PCP - General Internal Medicine 08/06/16 Practice Support Specialist Relationship Specialty Start Date End Date Lucía Rizzo MD [address] [facility] [address] PCP - General Internal Medicine 08/06/16 Practice Support Specialist Relationship Specialty Start Date End Date Lucía Rizzo MD [address] [facility] [address] PCP - General Internal Medicine 08/06/16 Practice Support Specialist Relationship Specialty Start Date End Date Lucía Rizzo MD [address] [facility] [address] PCP - General Internal Medicine 08/06/16 Practice Support Specialist Relationship Specialty Start Date End Date Lucía Rizzo MD [address] [facility] [address] PCP - General Internal Medicine 08/06/16 Practice Support Specialist Relationship Specialty Start Date End Date Lucía Rizzo MD [address] [facility] [address] PCP - General Internal Medicine 08/06/16 Practice Support Specialist Relationship Specialty Start Date End Date Lucía Rizzo MD [address] [facility] [address] PCP - General Internal Medicine 08/06/16 Team Status: Inactive Member Role Status Dates Dr. Lucía Rizzo MD Primary Care Provider Active Dr. Dennise Ramires MD Emergency Provider Active Team Status: Inactive Member Role Status Dates Dr. Lucía Rizzo MD Primary Care Provider Active Dr. Bay Barton MD Attending Provider, Emergency Pro vider Active Practice Support Specialist Relationship Specialty Start Date End Date Lucía Rizzo MD [address] [facility] [address] PCP - General Internal Medicine 08/06/16 Practice Support Specialist Relationship Specialty Start Date End Date Lucía Rizzo MD [address] [facility] [address] PCP - General Internal Medicine 08/06/16 Practice Support Specialist Relationship Specialty Start Date End Date Lucía Rizzo MD [address] [facility] [address] PCP - General Internal Medicine 08/06/16 Practice Support Specialist Relationship Specialty Start Date End Date Lucía Rizzo MD [address] [facility] [address] PCP - General Internal Medicine 08/06/16 Practice Support Specialist Relationship Specialty Start Date End Date Lucía Rizzo MD [address] [facility] [address] PCP - General Internal Medicine 08/06/16 Practice Support Specialist Relationship Specialty Start Date End Date Lucía Rizzo MD [address] [facility] [address] PCP - General Internal Medicine 08/06/16 Practice Support Specialist Relationship Specialty Start Date End Date Lucía Rizzo MD [address] [facility] [address] PCP - General Internal Medicine 08/06/16 Practice Support Specialist Relationship Specialty Start Date End Date Lucía Rizzo MD [address] [place] [address] PCP - General Internal Medicine 08/06/16 Practice Support Specialist Relationship Specialty Start Date End Date Lucía Rizzo MD [address] [place] [address] PCP - General Internal Medicine 08/06/16 Practice Support Specialist Relationship Specialty Start Date End Date Lucía Rizzo MD [address] [place] [address] PCP - General Internal Medicine 08/06/16 Practice Support Specialist Relationship Specialty Start Date End Date Lucía Rizzo MD [address] [place] [address] PCP - General Internal Medicine 08/06/16 Practice Support Specialist Relationship Specialty Start Date End Date Lucía Rizzo MD [address] [place] [address] PCP - General Internal Medicine 08/06/16 Kim Crockett RN [address] [place] [address] Primary Care Surveillance Monitor 07/16/24 Practice Support Specialist Relationship Specialty Start Date End Date Lucía Rizzo MD [address] [place] [address] PCP - General Internal Medicine 08/06/16 Kim Crockett, TUYET [address] [place], [place] [id number] Primary Care Surveillance Monitor 07/16/24 Practice Support Specialist Relationship Specialty Start Date End Date Lucía Rizzo MD [address] [place] [address] PCP - General Internal Medicine 08/06/16 Kim Crockett, TUYET [address] [place] [address] Primary Care Surveillance Monitor 07/16/24 Practice Support Specialist Relationship Specialty Start Date End Date Lucía Rizzo MD [address] [place] [address] PCP - General Internal Medicine 08/06/16 Kim Crockett, TUYET [address] [place] [address] Primary Care Surveillance Monitor 07/16/24 Practice Support Specialist Relationship Specialty Start Date End Date Lucía Rizzo MD [address] [place] [address] PCP - General Internal Medicine 08/06/16 Kim Crockett, TUYET [address] [place] [address] Primary Care Surveillance Monitor 07/16/24 Practice Support Specialist Relationship Specialty Start Date End Date Lucía Rizzo MD [address] [place] [address] PCP - General Internal Medicine 08/06/16 Practice Support Specialist Relationship Specialty Start Date End Date Lucía Rizzo MD [address] [place] [address] PCP - General Internal Medicine 08/06/16 Practice Support Specialist Relationship Specialty Start Date End Date Lucía Rizzo MD [address] [place] [address] PCP - General Internal Medicine 08/06/16 Sandra Centeno PA-C [address] [place] [address] [facility] 09/27/24 Aminata Royal APRN.DEALMAKER [address] [place] [address] [facility] 09/27/24 Jean Carlos Resendiz PA-C [address] [place] [address] [facility] Practice Support Specialist Relationship Specialty Start Date End Date Lucía Rizzo MD [address] [place] [address] PCP - General Internal Medicine 08/06/16 Sandra Centeno PA-C [address] [place] [address] [facility] 09/27/24 Aminata Royal APRN.DEALMAKER [address] [place] [address] [facility] Internal Medicine 09/27/24 Jean Carlos Resendiz PA-C [address] [place] [address] [facility] 09/27/24 Practice Support Specialist Relationship Specialty Start Date End Date Lucía Rizzo MD [address] [place] [address] PCP - General Internal Medicine 08/06/16 Sandra Centeno PA-C [address] [place] [address] [facility] 09/27/24 Aminata Royal APRN.DEALMAKER [address] [place] [address] [facility] 09/27/24 Jean Carlos Resendiz PA-C [address] [place] [address] [facility] 09/27/24 Practice Support Specialist Relationship Specialty Start Date End Date Lucía Rizzo MD [address] [place] [address] PCP - General Internal Medicine 08/06/16 Sandra Centeno PA-C [address] [place] [address] [phone] [facility] 09/27/24 Aminata Royal APRN.DEALMAKER [address] [place] [address] [facility] 09/27/24 Jean Carlos Resendiz PA-C [address] [place] [address] [facility] 09/27/24 Practice Support Specialist Relationship Specialty Start Date End Date Lucía Rizzo MD [address] [place] [address] PCP - General Internal Medicine 08/06/16 Sandra Centeno PA-C [address] [place] [address] [phone] [facility] 09/27/24 Aminata Royal APRN.DEALMAKER [address] [place] [address] [facility] 09/27/24 Jean Carlos Resendiz PA-C [address] [place] [address] [facility] Family [facility] 09/27/24 Practice Support Specialist Relationship Specialty Start Date End Date Lucía Rizzo MD [address] [place] [address] PCP - General Internal Medicine 08/06/16 Sandra Centeno PA-C [address] [place], [place] [phone] [facility] 09/27/24 Aminata Royal APRN.DEALMAKER [address] [place] [address] [facility] 09/27/24 Jean Carlos Resendiz PA-C [address] [place] [address] [facility] 09/27/24 Practice Support Specialist Relationship Specialty Start Date End Date Lucía Rizzo MD [address] [place] [address] PCP - General Internal Medicine 08/06/16 Sandra Centeno PA-C [address] [place], [place] [phone] [facility] Family Medicine 09/27/24 Aminata Royal APRN.DEALMAKER [address] [place] [address] [facility] 09/27/24 Jean Carlos Resendiz PA-C [address] [place] [address] [facility] 09/27/24 Practice Support Specialist Relationship Specialty Start Date End Date Lucía Rizzo MD [address] [place] [address] PCP - General Internal Medicine 08/06/16 Sandra Centeno PA-C [address] [place] [address] [phone] [facility] 09/27/24 Aminata Royal APRN.DEALMAKER [address] [place] [address] [facility] 09/27/24 Jean Carlos Resendiz PA-C [address] [place] [address] [facility] 09/27/24 Juan Carlos Ordoñez MD [address] [place], [place] [phone] Consulting Psychiat[facility] 11/09/24 Practice Support Specialist Relationship Specialty Start Date End Date Lucía Rizzo MD [address] [place] [address] PCP - General Internal Medicine 08/06/16 Sandra Centeno PA-C [address] [place] [address] [phone] [facility] 09/27/24 Aminata Royal APRN.DEALMAKER [address] [place] [address] [facility] 09/27/24 Jean Carlos Resendiz PA-C [address] [place] [address] [facility] 09/27/24 Juan Carlos Ordoñez MD [address] [place] [address] Specialty Certified Master Locksmith Psychiatry 11/09/24 Practice Support Specialist Relationship Specialty Start Date End Date Lucía Rizzo MD [address] [place]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
[2025-09-20] MEDS: hydrOXYzine PAM 25 MG Capsule PO (22:35)
[2025-09-21 04:22] VITALS: BP 136/79; PULSE 80; RESP 18; TEMP 36.8; O2SAT 97
[2025-09-21 06:16] LABS: Hematocrit 28.0 % (37-47); Hemoglobin 9.5 g/dL (12.0-15.0); Immature Granulocytes Count 0.010 X10^3/uL (0.0-0.0); Mean Corp Hgb Conc 33.9 g/dL (32-36); Mean Corpuscular Volume 90.3 fL (81-99); Mean Platelet Vol. 10.0 fl (6.2-12.0); NRBC Flagged by Analyzer 0 % (0-5); Platelet Count 169 K/mm3 (150-450); RBC Distribution Width CV 13.8 % (11.6-14.6); RBC Distribution Width SD 45.2 fl (35.1-43.9); Red Blood Count 3.10 M/mm3 (4.2-5.4); White Blood Count 4.9 K/mm3 (4.4-11.0)
[2025-09-21] MEDS: hydrOXYzine PAM 25 MG Capsule PO ×3 (06:28→21:12)
[2025-09-21 06:38] LABS: Anion Gap 11 (5-15); BUN 27 mg/dL (4-19); BUN/Creat Ratio 33.8 RATIO (10-20); Calcium,Total 8.1 mg/dL (7.6-11.0); Carbon Dioxide 20.9 mmol/L (21.0-32.0); Chloride 109 mmol/L (98-108); Estimated Creatinine Clearance 49.00 ml/min (50-250); Glucose 98 mg/dL (70-99); Potassium 3.4 mmol/L (3.3-5.1)
--- NOTE | 2025-09-21 08:21 | PN.HOSP_ITS ---
Reason for Visit Chief Complaint: Found down Subjective Subjective Patient reports she is having hallucinations and she knows she is but they are quite disturbing. She also states she is having people break into her home. I have verified with family that this is also a hallucination. The patient is quite terrified about the whole situation though. I did discuss with the family and the patient about discontinuing her Seroquel and trying Aricept for her hallucinations that I suspect they may be related to some mild Lewy body memory impairment. Hallucinations seem to be essentially visual. She states she is feeling okay and had no injury related to the fall. She is aware she needs placement at discharge as an amenable to that as is her family. Objective Data Objective Data Vital Signs: Vital Signs Temp Pulse Resp BP Pulse Ox O2 Del Method 98.2 F 80 18 136/79 H 97 Room Air 09/21/25 04:22 09/21/25 04:22 09/21/25 04:22 09/21/25 04:22 09/21/25 04:22 09/21/25 04:22 Oxygen Delivery Method Room Air Weight: 54.431 kg Body Mass Index (BMI) 20.5 Intake & Output: Intake and Output for Last 24 Hours 09/19/25 09/20/25 09/21/25 23:59 23:59 23:59 Intake Total 2480 / 2480 Output Total 700 / 700 Balance 1780 / 1780 Lab / Micro Data 09/21/25 05:48 09/21/25 05:48 Labs: Laboratory Results - last 24 hr 09/20/25 11:25: WBC 8.5, RBC 3.96 L, Hgb 11.9 L, Hct 35.8 L, MCV 90.4, MCH 30.1, MCHC 33.2, RDW Std Deviation 45.3 H, RDW Coeff of Kris 13.6, Plt Count 210, MPV 10.0, Immature Gran % (Auto) 0.400, Neut % (Auto) 87.7 H, Lymph % (Auto) 7.3 L, Toole % (Auto) 4.5, Eos % (Auto) 0.0, Baso % (Auto) 0.1, Absolute Neuts (auto) 7.5, Absolute Lymphs (auto) 0.62 L, Nucleated RBC % 0, PT 14.3, INR 1.1, APTT 28.0, Sodium 143, Potassium 4.1, Chloride 104, Carbon Dioxide 18.4 L, Anion Gap 21 H, BUN 34 H, Creatinine 1.03, Estim Creat Clear Calc 37.62 L, Est GFR (MDRD) Non-Af 55 L, BUN/Creatinine Ratio 33.0 H, Glucose 88, Lactic Acid 1.5, Calcium 9.5, Magnesium 2.3 H, Total Bilirubin 1.15, Direct Bilirubin 0.54 H, AST 48 H, ALT 11, Alkaline Phosphatase 100, Total Creatine Kinase 1935 H, Troponin T High Sens 44 H D, Total Protein 7.3, Albumin 4.5, Globulin 2.8, Lipase 34 09/20/25 11:40: Urine Color Yellow, Urine Clarity Sl. Cloudy, Urine pH 6.0, Ur Specific [place] 1.025, Urine Protein 100 H, Urine Glucose (UA) Normal, Urine Ketones 150 A*, Urine Occult Blood 150 H, Urine Nitrite Negative, Urine Bilirubin Negative, Urine Urobilinogen Normal, Ur Leukocyte Esterase 500 H, Urine RBC 0-5 SEEN, Urine WBC 5-10 SEEN, Ur Squamous Epith Cells 0 SEEN, Ur Transition Epith Cell 0-5 SEEN, Calcium Oxalate Crystal 1+, Urine Bacteria 1+, Hyaline Casts 0-5 SEEN, Urine Mucus 1+ 09/20/25 13:35: Troponin T Hi Sens 2 Hr 45 H 09/21/25 05:48: WBC 4.9, RBC 3.10 L, Hgb 9.5 L, Hct 28.0 L, MCV 90.3, MCH 30.6, MCHC 33.9, RDW Std Deviation 45.2 H, RDW Coeff of Kris 13.8, Plt Count 169, MPV 10.0, Immature Gran % (Auto) 0.200, Neut % (Auto) 77.1 H, Lymph % (Auto) 15.8 L, Toole % (Auto) 6.1, Eos % (Auto) 0.6, Baso % (Auto) 0.2, Absolute Neuts (auto) 3.8, Absolute Lymphs (auto) 0.78 L, Nucleated RBC % 0, Sodium 141, Potassium 3.4, Chloride 109 H, Carbon Dioxide 20.9 L, Anion Gap 11, BUN 27 H, Creatinine 0.80, Estim Creat Clear Calc 49.00 L, Est GFR (MDRD) Non-Af 75, BUN/Creatinine Ratio 33.8 H, Glucose 98, Calcium 8.1 Radiography Diagnostic Testing: Radiology Impression Brain CT 09/20/25 12:00 IMPRESSION: No acute intracranial abnormalities. No acute injury to the cervical spine. Reading Location: [id number] Cervical Spine CT 09/20/25 12:00 IMPRESSION: No acute intracranial abnormalities. No acute injury to the cervical spine. Reading Location: [id number] Chest X-Ray 09/20/25 12:00 IMPRESSION: No acute cardiopulmonary abnormalities. Reading Location: [id number] Femur X-Ray 09/20/25 12:00 IMPRESSION: No acute osseous abnormalities. Reading Location: [id number] Pelvis X-Ray 09/20/25 12:00 IMPRESSION: No acute osseous abnormalities. Reading Location: [id number] Physical Exam Const alert, oriented x3, no apparent distress and average body habitus Constitutional Narrative: Thin, somewhat frail-appearing, older, white female, sitting up in a chair at the bedside, appears nontoxic, pleasant, in no acute distress, having intermittent hallucinations HEENT head/scalp atraumatic and moist oral mucous membranes HEENT Narrative: Mallampati 2, no thrush Head and Scalp: normocephalic Resp normal respiratory effort, no retractions, no use of accessory muscles and clear to auscultation bilaterally Auscultation: Negative for rales, rhonchi or wheezes Cardio regular rate, regular rhythm, S1 normal heart sound, S2 normal heart sound, no murmurs, no rub, no gallops and no clicks GI normal to inspection, nondistended, normoactive bowel sounds, soft to palpation and non-tender Extremity Extremity Narrative: Pedal and radial pulses are 2+, trace bilateral lower extremity edema, no cyanosis or clubbing Neuro moves all extremities and no focal motor deficits Neuro Narrative: Patient with significant bradykinesia and mild word finding difficulties with delayed responses Speech: Negative for speech normal Psych Psych Narrative: Affect is normal and patient interacts appropriately, she is having hallucinations that are visual and is aware she is having them Assessment & Plan Assessment/Plan (1) Parkinson's disease: (2) Rhabdomyolysis: (3) Debility: (4) Visual hallucinations: (5) Abnormal urinalysis: PLAN: Plan Mild rhabdomyolysis - CK was almost 2000 - UA is consistent with rhabdo showing occult blood but negative RBCs - CK trending down with no HOOD - No need to follow any further at this time Visual hallucinations - I suspect this may be related to some Lewy body dementia - Patient does appear to have some mild cognitive impairment - Is alert and oriented x 3 and is aware she is having visual hallucinations - Has been on Seroquel but does not appear to be helpful - This is second-line for hallucinations related to Lewy body dementia so we will transition to Aricept 10 mg nightly and see if this helps - Monitor Troponin elevation - Likely related to the above however will check echocardiogram to rule out any wall motion abnormality if no wall motion abnormality is identified no further workup required Generalized weakness and debility related to Parkinson's disease - Patient will need placement at discharge and is amenable to SNF - Family is currently choosing which SNF they would like to pursue - Case management/social work following for assistance with discharge planning - PT/OT following Abnormal UA - Culture sent and shows growth of Staph aureus however only half thousand CFU's per high-powered field so not consistent with infection - No further workup required Parkinson's disease - Continue home Sinemet - Follow-up as an outpatient with neurologist at [facility] Chronic hypotension - Continue home midodrine - Continue home fludrocortisone Hypothyroidism - Continue home levothyroxine GERD - Continue home PPI Hyperlipidemia - Continue home pravastatin Anxiety/depression - Continue home mirtazapine - Continue home sertraline - Has been on hydroxyzine and this could exacerbate her hallucinations so we will discontinue DVT prophylaxis - Continue subcu enoxaparin CODE STATUS - Full code was verified at the time of admission with family Charges/Coding Visit Charges Inpatient E&M: 29492 Subs Hosp L2
[2025-09-21 09:24] VITALS: BP 115/67; PULSE 86; RESP 18; TEMP 36.2; O2SAT 97
[2025-09-21 09:51] LABS: CPK Total, Creatine Kinase 1287 U/L (24-195)
--- NOTE | 2025-09-21 11:15 | CASEMGMT ---
RN CM Assessment Face to Face with patient for initial transition planning/care coordination assessment. RN REGINO introduced self and role at [facility], pt voices understanding. Pt is A&Ox2-3 and is resting comfortably in bed and is calm. Pt is able to answer this RN CM questions appropriately. Pt's family at the bedside and willing to assist as needed. Care providers, pharmacy, and demographics verified. Admitting dx: Rhabdomyolysis LACE Strata: 1 PCP: Lucía Ortiz Specialists: Roscoe (CC Neuro), Cathleen (Neuro) Preferred Pharmacy: [facility] Insurance: [facility] A/B, AARP Prescription Benefit: Yes LNOK: Nia (Daughter), Debra (Daughter) Living Arrangements: Pt lives alone in a single story home with one step to enter ADLs/IADLs: Indep at baseline. However, pt is currently requiring assistance. Transportation: Pt reports that she quit driving around 2 months ago. Pt states that she has been using [facility] Transportation Services lately. DME: Cane, FWW, Rollator x2, Grab bars, shower chair HHC/SNF: Denies hx of. Pt reports that she is active with OP Tx through [facility] Pt?s goal: Return to PLOF Plan: Anticipate additional rehab prior to the pt returning home. PT and Dr Calvillo are recommending rehab for the pt. This RN CM explained the 3 MN MCR rule and the option to potentially go to a rehab unit instead where MCR A will be billed and the 3 MN MCR stay is not needed. Pt and family state understanding and prefer to stay at [facility]. Pt prefers the RU at [facility] as the FOC and denies wanting to review a list of other options at this time. MS3 RN CM notified. Pt and family deny further questions or concerns now. CM to follow. Lane Wesley RN, CM
--- NOTE | 2025-09-21 11:23 | CASEMGMT ---
Addendum entered by Ca Arellano 09/21/25 14:51: 1400- TUYET LACY into pt room, pt two dtrs present. Introduced self and role to pt, dtrs and family present. Pt and dtrs agreeable to discuss dc planning with all members in room. Pt dtr Nia is POA for healthcare, requested she provide documents to be scanned into the chart at her convenience. Pt dtrs state they want their mother to be a part of the decision making process. Discussed options for dc planning. Pt dtrs state they have been looking into [place] and they feel that is where they would like pt to ultimately end up. Discussed skilled care and they are agreeable to this. Provided patient and dtrs with a list of SNF providers including quality and resource use data and consistent with the patient?s preferred geographic region, medical needs, and insurance network were provided from the [facility] Guide. Also made note of providers who offer memory care. This is not something they are interested in at this time. Answered questions regarding which facilities accept sigifredo for AL, what skilled care entails, etc. Pt dtrs is planning on touring facilities today. They plan to provide RN CM with 3 choices by morning. Pt and family thank RN REGINO for answering questions and assistance. Addendum entered by Ca Arellano 09/21/25 12:30: Noted pt with hallucinations, no POA listed in chart. TUYET LACY into pt room, pt brother present as pt being taken to restroom. Pt brother states pt has 2 dtrs and he thinks Nia is pt POA for healthcare. He states both dtrs will be present today. TC to January, left message requesting returned call. Original Note: Referral made to [facility] Rehab unit at this time.
[2025-09-21 14:41] VITALS: BP 102/58; PULSE 84; RESP 18; TEMP 36.4; O2SAT 97
--- NOTE | 2025-09-21 16:23 | ECHOD_ITS ---
Reason For Study Reason For Study: TROPONIN ELEVATION Procedure This was a 2D Doppler, Color Flow transthoracic echocardiogram. Exam performed portable in patient room. Left Ventricle Normal size and thickness. Mild posterior and inferior hypokinesis. Estimated LVEF 50%. Stage I diastolic dysfunction. Right Ventricle Normal right ventricle. Atria The left and right atria are normal. Mitral Valve Mild (1+) mitral valve insufficiency. Tricuspid Valve Trivial tricuspid valve insufficiency. Normal pulmonary artery pressure. Aortic Valve Trisinus/trileaflet aortic valve. Mild-Moderate (1-2+) aortic valve insufficiency. Pulmonic Valve The pulmonic valve is not well visualized. Great Vessels Normal sized aortic root. Pericardium/Pleural No pericardial effusion. MMode/2D Measurements & Calculations LVIDd: 4.8 cm IVSd: 0.84 cm Ao root diam: 3.1 cm LVIDs: 3.4 cm LVPWd: 0.83 cm RVDd: 2.5 cm FS: 29.1 % LAV(MOD-bp): 40.7 ml LVAd ap4: 23.1 cm2 LVAd ap2: 22.0 cm2 LAV(MOD-bp) Indexed: 25.9 ml/m2 LVLd ap4: 7.1 cm LVLd ap2: 6.7 cm LAV(MOD-sp2): 34.3 ml EDV(MOD-sp4): 63.4 ml EDV(MOD-sp2): 59.8 ml LAV(MOD-sp4): 43.3 ml EDV(sp4-el): 64.2 ml EDV(sp2-el): 61.1 ml LVAs ap4: 13.7 cm2 LVAs ap2: 13.6 cm2 LVLs ap4: 6.0 cm LVLs ap2: 5.8 cm ESV(MOD-sp4): 26.1 ml ESV(MOD-sp2): 26.2 ml ESV(sp4-el): 26.6 ml ESV(sp2-el): 27.0 ml EF(MOD-sp4): 58.8 % EF(MOD-sp2): 56.2 % EF(sp4-el): 58.6 % SV(MOD-sp4): 37.2 ml SV(MOD-sp2): 33.6 ml SV(sp4-el): 37.6 ml SI(MOD-sp4): 23.7 ml/m2 SI(MOD-sp2): 21.4 ml/m2 LA A4 area: 15.2 cm2 LA dimension(2D): 3.3 cm RA A4 area: 7.8 cm2 TAPSE: 1.8 cm Time Measurements MV dec time: 0.17 sec Doppler Measurements & Calculations MV E max rachid: 36.1 cm/sec Lat Peak E' Rachid: 7.0 cm/sec Med Peak E' Rachid: 7.8 cm/sec MV A max rachid: 82.1 cm/sec E/E' lat: 5.1 E/E' med: 4.6 MV E/A: 0.44 Ao V2 max: 133.9 cm/sec AI max rachid: 498.8 cm/sec MV dec slope: 214.3 cm/sec2 Ao max P.2 mmHg AI max P.5 mmHg Ao V2 mean: 91.6 cm/sec Ao mean P.8 mmHg AI dec slope: 190.3 cm/sec2 Ao V2 VTI: 28.2 cm AI P1/2t: 767.5 msec AV (velocity ratio): 0.66 LV V1 max: 84.9 cm/sec PA V2 max: 82.4 cm/sec TR max rachid: 208.2 cm/sec LV V1 max P.9 mmHg TR max P.3 mmHg LV V1 mean P.6 mmHg LV V1 mean: 58.3 cm/sec LV V1 VTI: 18.6 cm ECHO/Echo Complete Interpretation Summary Mild posterior and inferior hypokinesis. Estimated LVEF 50%. Stage I diastolic dysfunction. Mild (1+) mitral valve insufficiency. Mild-Moderate (1-2+) aortic valve insufficiency. Ordering Physician: Ramila Calvillo Referring Physician: Lucía Ortiz Performed By: Miguel Cheng RDCS
[2025-09-21 20:34] VITALS: BP 157/90; PULSE 75; RESP 15; TEMP 36.8; O2SAT 99
[2025-09-22 05:00] VITALS: BP 143/80; PULSE 94; RESP 15; TEMP 36.6; O2SAT 95
--- NOTE | 2025-09-22 06:50 | NURSING ---
into patient's room as heard yelling- nightshift charge and Indu RN bedside with patient, pt angry aggitated, and hitting at staff. Pt confused unable to orient and states they've been trying to kill me since i came to this organization pt verbalized she wants to go home. noted soiled attends on floor. pt given walker as noted unsteady, attempted to push walker at staff. pt refused to go back to bed. pt eventually to recliner with legs elevated. pt continues to be argumentative stating she doesn't want her legs up that staff only want her legs up so she doesn't get up. attempted to reorient and discuss safety with patient. chair alarm noted to be on. call light within reach. telegraph installer charge nurse went to talk with Dr. Garcia on unit.
--- NOTE | 2025-09-22 07:02 | NURSING ---
this nurse and night charge nurse heard yelling and staff running. found patient on floor laying on left side. America BENZ at patients side states she saw patient come out of her room unsteady and feel onto left side. states did not see her hit her head but landed on left side/hip. Dr. Garcia on unit to patient's side for evaluation.
--- NOTE | 2025-09-22 07:05 | NURSING ---
pt assisted back to room by night warehouse manager staff and Dr. Garcia- primary RN to bedside. Prudence cardiac care unit nurse bedside. housekeeping coordinator notified of need for sitter- CURING FINISHER tatyana to bedside as sitter.
--- NOTE | 2025-09-22 07:05 | PCM.PN.BLA ---
Assessment & Plan Assessment/Plan (1) Fall: PLAN: Plan Was notified by patient's nurse regarding patient being extremely agitated plan was to have given 1 mg of IV Ativan. Prior to patient receiving Ativan patient was found to be on the floor. An assessment of unwitnessed fall was made. Patient seen and examined. No evidence of bruises. Patient appeared delirious. Did order CT of the head. Will sign out to attending physician to assume management subsequently
--- NOTE | 2025-09-22 07:07 | CT_ITS ---
PROCEDURE: BRAIN/HEAD WITHOUT CONTRAST 09/22/2025 REASON FOR EXAM: FALL TECHNIQUE: Procedure Code: CTBR Modality: CT Procedure: BRAIN/HEAD WITHOUT CONTRAST Coronal and Sagittal reconstruction series were provided. One or more dose reduction techniques were used (e.g., Automated exposure control, adjustment of the mA and/or kV according to patient size, use of iterative reconstruction technique. RADIATION DOSE SUMMARY: CTDlvol: 47 mGy DLP: 890 mGycm COMPARISON: 1 day prior FINDINGS: Brain: There is no evidence of hemorrhage or mass. No extra-axial fluid collection, midline shift or mass effect. Geographic hypodensity in the deep white matter and subcortical white matter of the left frontal lobe. There is a relative paucity of white matter disease elsewhere. CSF Spaces: Mild generalized cerebral atrophy Sinuses/Mastoids: Clear Bones: No fracture CT/Brain/Head without Contrast IMPRESSION: 1. No evidence of hemorrhage. 2. Geographic hypodensity left frontal lobe may represent the sequelae of yola te ischemia. However, acute ischemia or small underlying mass with vasogenic edema is not entirely excluded. If there is hig h pretest probability for ischemia or mass, consider contrast-enhanced MRI as it is more sensitive. Fleischmanns Alert: As above The critical findings in the findings and impression above were relayed directl y by me by telephone to Dr. Humphreys on 09/22/2025 at 8:13 am EST with readback verification. Reading Location: [id number]
--- NOTE | 2025-09-22 07:12 | PCM.PN.HOSP ---
Reason for Visit Chief Complaint: Found down Subjective Subjective Patient got fairly confused overnight was having severe hallucinations. Daughter was at the bedside during my evaluation today and this has been the most significant factor for her. Family states it seems to have increased after they increased her Sinemet and was mild and nonintrusive initially but now the hallucinations are very debilitating. No other medication changes were made. Seroquel does not seem to be helping. I did discuss with the daughter who is the POA that we will discontinue the Seroquel. I placed her on Aricept and will schedule melatonin. Also I did discuss with her that I plan to discuss the case with Dr. Pringle who is our hospitalist/psychiatrist for any other recommendations. We did discuss the abnormalities found on her CT and family indicates this is a known entity and she has a meningioma for which she follows at [facility]. Family does indicate they have noticed some lowly developing memory impairment compared to her previous baseline Objective Data Objective Data Vital Signs: Vital Signs Temp Pulse Resp BP Pulse Ox O2 Del Method 97.9 F 94 15 143/80 H 95 Room Air 09/22/25 05:00 09/22/25 05:00 09/22/25 05:00 09/22/25 05:00 09/22/25 05:00 09/22/25 05:00 Oxygen Delivery Method Room Air Weight: 54.4 kg Body Mass Index (BMI) 20.5 Intake & Output: Intake and Output for Last 24 Hours 09/20/25 09/21/25 09/22/25 23:59 23:59 23:59 Intake Total 2480 / 2480 Output Total 700 / 700 Balance 1780 / 1780 Medical Nutrition Assessment Dietitian: Malnutrition Criteria Met Start: 09/21/25 14:32 Freq: Status: Active Protocol: Document 09/21/25 14:32 RMA (Rec: 09/21/25 14:32 RMA [id number]) Nutrition Malnutrition Evidence of Yes Malnutrition Exists Malnutrition (severe Chronic ): Evidenced By Suboptimal Energy Intake (Severe),Weight Loss (Severe), Physical Changes (Severe) Clinical Problem Chronic Disease or Condition Related Malnutrition Etiology severe protein-calorie malnutrition in the context of chronic disease related to inadequate energy/oral intake Signs/Symptoms as evidenced by BMI 20.6, PO meeting less than 50% estimated nutrition needs x past 2-4 weeks and less than 75% estimated nutrition needs x past 6-12 months; ~11% unintentional weight loss x past 6 months and ~5% unintentional weight loss x past 1 month; severe muscle wasting and fat depletion in the clavicle, face, arms and legs. Status Active Problem Recommendation Dietitian Continue liberalized regular diet as ordered. Recommendations/ Will add magic cup with lunch and dinner tray. Changes Will add 240mL strawberry milkshake with lunch and dinner tray. Re-offer ensure plus HP if pt accepting. Trend weight and adjust ONS as needed. Lab / Micro Data 09/22/25 08:51 09/22/25 08:51 Labs: Laboratory Results - last 24 hr 09/21/25 05:48: Total Creatine Kinase 1287 H Micro: Microbiology 09/20/25 11:40 Urine, Catheterized Urine Culture - Preliminary Staphylococcus aureus Physical Exam Const alert, oriented x3, no apparent distress and average body habitus Constitutional Narrative: Thin, somewhat frail-appearing, older, white female, lying in bed, daughter at bedside, appears calm and nontoxic at this time, radiation technician at bedside, no confusion at this time HEENT head/scalp atraumatic and moist oral mucous membranes Head and Scalp: normocephalic Resp normal respiratory effort, no retractions, no use of accessory muscles and clear to auscultation bilaterally Auscultation: Negative for rales, rhonchi or wheezes Cardio regular rate, regular rhythm, S1 normal heart sound, S2 normal heart sound, no murmurs, no rub, no gallops and no clicks GI normal to inspection, nondistended, normoactive bowel sounds, soft to palpation and non-tender Extremity Extremity Narrative: Pedal and radial pulses are 2+, trace bilateral lower extremity edema, no cyanosis or clubbing Neuro moves all extremities and no focal motor deficits Neuro Narrative: Bradykinesia, still some word finding impairment Speech: Negative for speech normal Psych Psych Narrative: Affect is normal and patient interacts appropriately, mildly anxious about all the events last night Assessment & Plan Assessment/Plan (1) Fall: PLAN: Plan Mild rhabdomyolysis - Resolved Visual hallucinations - I suspect this may be related to some Lewy body dementia versus psychosis related to Parkinson's - Patient does appear to have some mild cognitive impairment - Patient had significant hallucinations last night - Continue Aricept - Will schedule melatonin 10 mg at at bedtime - Discontinue hydroxyzine at discharge as well as Seroquel - Add trazodone 50 mg at at bedtime - Increase Remeron to 15 mg at at bedtime - Reassess tomorrow as her hallucinations seem to be most severe in the evening Troponin elevation - Patient with mild posterior and inferior hypokinesis with an estimated EF of 50% and stage I diastolic dysfunction along with mild to moderate aortic valve insufficiency and mild mitral valve insufficiency - Will obtain stress test in a.m. - Start aspirin 81 mg daily - Continue home pravastatin - Check lipids Generalized weakness and debility related to Parkinson's disease - Patient will need placement at discharge and is amenable to SNF - Family is currently choosing which SNF they would like to pursue - Case management/social work following for assistance with discharge planning -Family is currently visiting sites - PT/OT following Parkinson's disease - Continue home Sinemet - Follow-up as an outpatient with neurologist at [facility] Meningioma in the frontal lobe - I was called by radiology today based on some hypodense area in the frontal lobe on her CT - Initially plan was to order MRI however upon further discussion with family she has a known meningioma with previous radiation and follows at [facility] for this Fall - Likely related to agitation and hallucinations - Avoid benzodiazepines - Reassurance and behavioral redirection is the best course for this at this time Chronic hypotension - Continue home midodrine - Continue home fludrocortisone - Blood pressures have been stable Hypothyroidism - Continue home levothyroxine GERD - Continue home PPI Hyperlipidemia - Continue home pravastatin Anxiety/depression - Continue home mirtazapine with increased dose as noted above - Continue home sertraline - Has been on hydroxyzine and this could exacerbate her hallucinations so we will discontinue DVT prophylaxis - Continue subcu enoxaparin CODE STATUS - Full code Charges/Coding Visit Charges Inpatient E&M: 42926 Subs Hosp L3
--- NOTE | 2025-09-22 08:15 | RAD_ITS ---
PROCEDURE: HIP, UNI W/ PELVIS 2-3 VIEWS 09/22/2025 REASON FOR EXAM: FALL TECHNIQUE: Procedure Code: RAD Modality: DX Procedure: HIP, UNI W/ PELVIS 2-3 VIEWS Laterality: Left COMPARISON: 09/20/2025. FINDINGS: No significant interval change. No acute fracture or dislocation. Enthesophytes extend off the greater trochanters of the proximal bilateral femurs. Numerous round calcifications within the lower pelvis are unchanged and likely represent phleboliths. RAD/HIP, UNI W/ Pelvis 2-3 Views IMPRESSION: As above. Reading Location: [id number]
[2025-09-22 08:59] VITALS: BP 141/88; PULSE 82; RESP 18; TEMP 36.4; O2SAT 98
[2025-09-22 09:05] LABS: Hematocrit 34.6 % (37-47); Hemoglobin 11.7 g/dL (12.0-15.0); Immature Granulocytes Count 0.020 X10^3/uL (0.0-0.0); Mean Corp Hgb Conc 33.8 g/dL (32-36); Mean Corpuscular Volume 89.6 fL (81-99); Mean Platelet Vol. 9.7 fl (6.2-12.0); NRBC Flagged by Analyzer 0 % (0-5); Platelet Count 196 K/mm3 (150-450); RBC Distribution Width CV 13.4 % (11.6-14.6); RBC Distribution Width SD 43.8 fl (35.1-43.9); Red Blood Count 3.86 M/mm3 (4.2-5.4); White Blood Count 5.7 K/mm3 (4.4-11.0)
[2025-09-22 09:32] LABS: Magnesium 2.1 mg/dL (1.5-2.2)
[2025-09-22 09:33] LABS: AST(SGOT) 49 U/L (<=31); Alanine Aminotransfer ALT/SGPT < 5 U/L (<=34); Albumin, Serum 4.3 g/dL (3.4-4.8); Alkaline Phosphatase 102 U/L (35-104); Anion Gap 15 (5-15); BUN 17 mg/dL (4-19); BUN/Creat Ratio 23.6 RATIO (10-20); Calcium,Total 9.0 mg/dL (7.6-11.0); Carbon Dioxide 25.0 mmol/L (21.0-32.0); Chloride 104 mmol/L (98-108); Estimated Creatinine Clearance 48.97 ml/min (50-250); Globulin 2.9 g/dL (2.2-4.2); Glucose 113 mg/dL (70-99); Potassium 3.6 mmol/L (3.3-5.1)
--- NOTE | 2025-09-22 12:22 | CASEMGMT ---
Addendum entered by Ca Arellano 09/22/25 15:55: TUYET LACY into pt room, pt family aware that [facility] if pt does not need memory care and her hallucinations are resolved. They are aware that the referral will be sent to [facility] but if pt does not have hallucinations this evening [facility] may still be an option. Addendum entered by Ca Arellano 09/22/25 15:07: TUYET LACY into pt room, pt dtr Debra hussein, she states they [facility]. Pt states this is her preference as well. Received POA for healthcare, copied documents and placed in chart. Returned original documents to the dtr. Requested dc health information assistant make referral to [facility]. Original Note: TUYET LACY into pt room, pt sitting up in chair in no distress with niece Negar at bedside. Pt states her dtrs are touring [facility] at this time. Pt states once her dtrs come back, she will notify TUYET LACY. Pt denies further needs at this time.
--- NOTE | 2025-09-22 15:18 | CASEMGMT ---
Addendum entered by Beulah Palafox 09/22/25 15:59: [facility] given pts hallucinations resolve. Updates to be sent in the morning. TUYET LACY updated. Original Note: Discharge Planning Referral sent via [facility] to [facility]. Phone call attempted to update pts daughter/POA (January) of pt choice but her vm was not set up. TUYET LACY updated. Beulah Palafox DC Planning Asst.
--- NOTE | 2025-09-22 15:59 | CASEMGMT ---
Addendum entered by Beulah Palafox 09/23/25 08:20: [facility]. [facility] updated. Original Note: Discharge Planning Referral sent via [facility] to [facility]. Beulah Palafox DC Planning Asst.
[2025-09-22 16:41] VITALS: BP 139/82; PULSE 81; RESP 18; TEMP 36.3; O2SAT 98
[2025-09-22 21:47] VITALS: BP 138/72; PULSE 70; RESP 18; TEMP 37; O2SAT 96
[2025-09-22] MEDS: MELATONIN 10 MG TABLET PO (21:51)
[2025-09-22] MEDS: 0.9% Saline Lock 10 ML Syringe IV (21:52)
[2025-09-22] MEDS: Senna Tablet 2 TABLET PO (21:59)
[2025-09-22 23:53] VITALS: BP 113/67; PULSE 84; RESP 16; TEMP 36.8; O2SAT 96
[2025-09-23 04:26] VITALS: BP 128/55; PULSE 71; RESP 16; TEMP 36.5; O2SAT 96
[2025-09-23 07:07] LABS: Cholesterol 137 mg/dL (<=200); Low Density Lipoprotein Calc. 80 mg/dL; Triglycerides 67 mg/dL; Very Low Density Lipoprotein 13 mg/dL (5-40); cholesterol:hdl ratio screen 3.15
[2025-09-23 07:09] LABS: AST(SGOT) 31 U/L (<=31); Alanine Aminotransfer ALT/SGPT < 5 U/L (<=34); Albumin, Serum 3.6 g/dL (3.4-4.8); Alkaline Phosphatase 81 U/L (35-104); Anion Gap 10 (5-15); BUN 23 mg/dL (4-19); BUN/Creat Ratio 29.5 RATIO (10-20); Calcium,Total 8.7 mg/dL (7.6-11.0); Carbon Dioxide 25.6 mmol/L (21.0-32.0); Chloride 105 mmol/L (98-108); Estimated Creatinine Clearance 48.97 ml/min (50-250); Globulin 2.3 g/dL (2.2-4.2); Glucose 106 mg/dL (70-99); Potassium 3.2 mmol/L (3.3-5.1)
[2025-09-23 07:50] VITALS: BP 121/63; PULSE 77; RESP 16; TEMP 37.1; O2SAT 96
[2025-09-23 07:51] VITALS: RESP 18
--- NOTE | 2025-09-23 08:45 | CASEMGMT ---
Addendum entered by Ca Arellano 09/23/25 12:48: TUYET LACY into pt room, pt and family (including two dtrs) aware that [facility] for care. Pt is aware once medically ready, she will be trf'd over to [facility]. Family would like pt to be transported. Original Note: Spoke with pt nurse, pt did not have any hallucinations lastnight reported. Pt was not combative. Pt does still have a sitter for safety for falls. Updated dc engineer first assistant to notify [facility] for acceptance.
--- NOTE | 2025-09-23 08:55 | CASEMGMT ---
Discharge Planning Note sent via [facility] to [facility] that pt did not have continued hallucinations throughout the night. Beulah Palafox DC Planning Asst.
[2025-09-23] MEDS: Senna Tablet 2 TABLET PO ×2 (10:25→22:09)
[2025-09-23] MEDS: Polyethylene Glycol 3350 17 GM PACKET PO (10:28)
[2025-09-23] MEDS: Ensure Plus High Protein 120 ML LIQUID PO (10:30)
[2025-09-23] MEDS: Potassium Chloride Oral Tablet 20 MEQ 40 MEQ PO (10:33)
--- NOTE | 2025-09-23 15:37 | PCM.TXEXTCAR ---
Diet Diet Order/Speech Therapy: INPATIENT Hospital Diet / Speech Therapy Order(s) 09/23/25 09:45 Diet: Regular - General Type of Dietary Supplement:: Magic Cup w/ L & D Diet Comments: 8oz strawberry milk shake (ice cream/milk) w/ lunch and dinner tray Routine Orders/Code Status Suppository Frequency: Daily PRN Routine Lab Work: CBC (As needed) and BMP (As needed) Code Status: Full Code DC O2, CPAP, BIPAP needs Home O2 Discharge instructions: No Therapies Weight Bearing: Full weight bearing Physical Therapy: Eval and Treat Occupational Therapy: Eval and Treat Speech Therapy: Eval and Treat Problem/Diagnosis (1) Fall: Status: Acute Code(s): W19.XXXA - Unspecified fall, initial encounter Allergies/Procedures Done in Hospital Allergies Sulfa (Sulfonamide Antibiotics) Allergy (Verified 09/20/25 11:15) Hives Procedures: 2-D Echocardiogram, EKG, Nuclear Stress Test and - (CT brain/CT cervical spine/x-ray chest/x-ray femur/x-ray pelvis/x-ray hip and pelvis) Type of Care/Length of Stay Estimated LOS: Convalescent Care Less Than 30 days Type of Care Needed: Skilled Rehab Potential: Good Prognosis: Fair Additional Orders/Day of Discharge Day of Discharge: 09/23/25 Dietary and Speech Recommendations Dietitian Recommendations/Changes: Continue liberalized regular diet as ordered. Will add magic cup with lunch and dinner tray. Will add 240mL strawberry milkshake with lunch and dinner tray. Re-offer ensure plus HP if pt accepting. Trend weight and adjust ONS as needed. Discharge Plan Admission Admit Date/Time: 09/20/25 14:43 Attending Provider: Ramial Calvillo Primary Care Provider: Lucía Ortiz Consulting Providers: Gerhard Pires Discharge Orders/Prescriptions Prescriptions: No Action pravastatin 20 MG tablet 20 mg PO QHS Patient Comments: TAKE 1 TABLET BY MOUTH EVERYDAY AT BEDTIME Rx Instructions: at 2300 carbidopa-levodopa 1 TABLET tablet extended release 1 tab PO BID Rx Instructions: 1 tab at 0730, 1 tab at 2300 carbidopa-levodopa 1 EACH tablet See Rx Instructions PO .COMPLEX Rx Instructions: orally ; 1 tab at 4am, 1 tab at 0730, 1.5 tab at 1030, 1.5 tab at 1330, 1.5 tab at 1630, 1.5 tab at 1930, 1.5 tab at 2300.; fludrocortisone 0.1 mg tablet 0.1 mg PO DAILY Rx Instructions: at 0400 levothyroxine 75 mcg tablet 75 mcg PO DAILY Patient Comments: TAKE 1 TABLET BY MOUTH ONCE DAILY. TAKE ON EMPTY STOMACH. FOR THYROID. Rx Instructions: at 0400 sertraline 100 mg tablet 100 mg PO DAILY Patient Comments: TAKE 1 TABLET BY MOUTH EVERY DAY Rx Instructions: at 1930 hydroxyzine HCl 25 mg tablet 25 mg PO TID Rx Instructions: at 1 at 1030, 1 tab at 1330, 1 tab 1930 quetiapine 25 mg tablet 25 mg PO QHS Rx Instructions: at 2300 pantoprazole 40 mg tablet,delayed release (DR/EC) 40 mg PO DAILY Rx Instructions: at 0400 sertraline 50 mg tablet 50 mg PO DAILY Rx Instructions: at 1930 mirtazapine 7.5 mg tablet 7.5 mg PO QHS Rx Instructions: at 2300 midodrine 5 mg Tablet 10 mg PO DAILY PRN Rx Instructions: at 1330 Referrals / Follow Up: Lucía Ortiz MD [Primary Care Provider, Internal Medicine]
[2025-09-23 16:02] VITALS: BP 110/63; PULSE 79; RESP 16; TEMP 36.8; O2SAT 96
--- NOTE | 2025-09-23 16:27 | CASEMGMT ---
Social Work- met with pt, pt dtr Debra to discuss d/c planning. Pt imaging not reported yet; hospitalist will plan for d/c tomorrow morning. Family reports agreement, citing concerns regarding late d/c with cognitive issues that have been prevalent while admitted. RNCM updated. Debra requests a call with transport time in the morning. Plan: [facility]
--- NOTE | 2025-09-23 16:50 | STRESSREP ---
Stress Test Report Pharmacologic myocardial perfusion stress test. 80-year-old lady with a history of chest pain. Resting EKG demonstrates normal sinus with a rate of 60 bpm. Resting blood pressure is 118/72 mmHg. 0.4 mg of regadenoson was infused per usual protocol followed by rapid intravenous saline flush injection. Continuous EKG monitoring was performed. The maximum heart rate was 87 bpm which was 61% of max impacted heart rate the maximum workload was 1 metabolic equivalent. At rest there were no ST or T wave changes noted to suggest ischemia and at peak infusion nonspecific ST changes were noted which did not meet the criteria for ischemia. No clinical angina is noted. The final blood pressure was 124/70 mmHg. Myocardial perfusion protocol. 10 mCi of technetium 99m sestamibi was injected at rest. 0.4 mg of regadenoson was infused per usual protocol. At peak infusion 33 mCi of technetium 99m sestamibi was injected stress images were obtained stress and rest images were reconstructed and compared in the short axis vertical long and horizontal long axis. Gated images were also obtained. Perfusion SPECT analysis: Review of the stress images demonstrate normal uptake of tracer noted in all areas of the myocardium. The resting images similar demonstrated normal uptake of tracer noted in all areas of the myocardium. No areas of reversibility are noted to suggest ischemia and no previous infarct is noted. Gated SPECT analysis: The gated ejection fraction is 70%. Conclusion: Normal pharmacologic myocardial perfusion stress test. Preserved ejection fraction.
--- NOTE | 2025-09-23 18:16 | PCM.PN.HOSP ---
Reason for Visit Chief Complaint: Found down Subjective Subjective Pt had a good night. Slept well. No noted hallucinations overnight. Did try to get out of bed early this am and fell to knees. No injury. Now has sitter. Objective Data Objective Data Vital Signs: Vital Signs Temp Pulse Resp BP Pulse Ox O2 Del Method 98.3 F 79 16 110/63 96 Room Air 09/23/25 16:02 09/23/25 16:02 09/23/25 16:02 09/23/25 16:02 09/23/25 16:02 09/23/25 16:02 Oxygen Delivery Method Room Air Weight: 54.4 kg Body Mass Index (BMI) 20.5 Intake & Output: Intake and Output for Last 24 Hours 09/21/25 09/22/25 09/23/25 23:59 23:59 23:59 Intake Total 700 / 700 Output Total 0 / 0 Balance 700 / 700 Medical Nutrition Assessment Dietitian: Malnutrition Criteria Met Start: 09/21/25 14:32 Freq: Status: Active Protocol: Document 09/21/25 14:32 RMA (Rec: 09/21/25 14:32 RMA [id number]) Nutrition Malnutrition Evidence of Yes Malnutrition Exists Malnutrition (severe Chronic ): Evidenced By Suboptimal Energy Intake (Severe),Weight Loss (Severe), Physical Changes (Severe) Clinical Problem Chronic Disease or Condition Related Malnutrition Etiology severe protein-calorie malnutrition in the context of chronic disease related to inadequate energy/oral intake Signs/Symptoms as evidenced by BMI 20.6, PO meeting less than 50% estimated nutrition needs x past 2-4 weeks and less than 75% estimated nutrition needs x past 6-12 months; ~11% unintentional weight loss x past 6 months and ~5% unintentional weight loss x past 1 month; severe muscle wasting and fat depletion in the clavicle, face, arms and legs. Status Active Problem Recommendation Dietitian Continue liberalized regular diet as ordered. Recommendations/ Will add magic cup with lunch and dinner tray. Changes Will add 240mL strawberry milkshake with lunch and dinner tray. Re-offer ensure plus HP if pt accepting. Trend weight and adjust ONS as needed. Lab / Micro Data 09/22/25 08:51 09/23/25 06:23 Labs: Laboratory Results - last 24 hr 09/23/25 06:23: Sodium 141, Potassium 3.2 L, Chloride 105, Carbon Dioxide 25.6, Anion Gap 10, BUN 23 H, Creatinine 0.78, Estim Creat Clear Calc 48.97 L, Est GFR (MDRD) Non-Af 78, BUN/Creatinine Ratio 29.5 H, Glucose 106 H, Calcium 8.7, Phosphorus 3.3, Total Bilirubin 1.03, AST 31, ALT < 5, Alkaline Phosphatase 81, Total Protein 6.0, Albumin 3.6, Globulin 2.3, Albumin/Globulin Ratio 1.6, Triglycerides 67, Cholesterol 137, LDL Cholesterol, Calc 80, VLDL Cholesterol 13, HDL Cholesterol 44, Cholesterol/HDL Ratio 3.15 Micro: Microbiology 09/20/25 11:40 Urine, Catheterized Urine Culture - Final Staphylococcus aureus Physical Exam Const alert, oriented x3, no apparent distress and average body habitus Constitutional Narrative: Thin, somewhat frail-appearing, older, white female, lying in bed, daughter at bedside, appears calm and nontoxic at this time, surgical services tech at bedside, no confusion at this time HEENT head/scalp atraumatic and moist oral mucous membranes Resp normal respiratory effort, no retractions, no use of accessory muscles and clear to auscultation bilaterally Auscultation: Negative for rales, rhonchi or wheezes Cardio regular rate, regular rhythm, S1 normal heart sound, S2 normal heart sound, no murmurs, no rub, no gallops and no clicks GI normal to inspection, nondistended, normoactive bowel sounds, soft to palpation and non-tender Extremity Extremity Narrative: Pedal and radial pulses are 2+, trace bilateral lower extremity edema, no cyanosis or clubbing Neuro moves all extremities and no focal motor deficits Neuro Narrative: Bradykinesia, still some word finding impairment Speech: Negative for speech normal Psych Psych Narrative: Affect is normal and patient interacts appropriately, mildly anxious about all the events last night Assessment & Plan Assessment/Plan (1) Fall: PLAN: Plan Visual hallucinations - Much improved with medications changes - Continue Aricept - continue melatonin 10 mg at at bedtime - continue trazodone 50 mg at at bedtime - continue Remeron to 15 mg at at bedtime Hypokalemia -Po replacement and recheck in am Troponin elevation/Abn Echo - Patient with mild posterior and inferior hypokinesis with an estimated EF of 50% and stage I diastolic dysfunction along with mild to moderate aortic valve insufficiency and mild mitral valve insufficiency - Stress test was negative and no further workup - continue aspirin 81 mg daily - Continue home pravastatin but increase to Pravastatin 40 mg with LDL 80 Generalized weakness and debility related to Parkinson's disease - Patient will need placement at discharge and is amenable to SNF - plan for d/c tomorrow - PT/OT following Parkinson's disease - Continue home Sinemet - Follow-up as an outpatient with neurologist at [facility] Meningioma in the frontal lobe - I was called by radiology today based on some hypodense area in the frontal lobe on her CT - Initially plan was to order MRI however upon further discussion with family she has a known meningioma with previous radiation and follows at [facility] for this Fall - Likely related to agitation and hallucinations - Avoid benzodiazepines - Reassurance and behavioral redirection is the best course for this at this time Chronic hypotension - Continue home midodrine - Continue home fludrocortisone - Blood pressures have been stable Hypothyroidism - Continue home levothyroxine GERD - Continue home PPI Hyperlipidemia - Continue home pravastatin Anxiety/depression - Continue home mirtazapine with increased dose as noted above - Continue home sertraline - Has been on hydroxyzine and this could exacerbate her hallucinations so we will discontinue DVT prophylaxis - Continue subcu enoxaparin CODE STATUS - Full code Charges/Coding Visit Charges Inpatient E&M: 97443 Subs Hosp L2
[2025-09-23 19:42] VITALS: BP 137/70; PULSE 79; RESP 16; TEMP 36.6; O2SAT 96
[2025-09-23] MEDS: MELATONIN 10 MG TABLET PO (22:10)
[2025-09-24 04:46] VITALS: BP 125/68; PULSE 68; RESP 18; TEMP 36.9; O2SAT 95
--- NOTE | 2025-09-24 06:57 | PCM.DC.SUM ---
Providers Date of Admission: 09/20/25 Date of Discharge: 09/24/25 Primary Care Physician: Dr. Lucía Ortiz MD Reason For Visit: RHABDOMYOLYSIS Diagnosis Discharge Diagnosis (1) Fall: Status: Acute Code(s): W19.XXXA - Unspecified fall, initial encounter Medications at Discharge Home Medications carbidopa 25 mg-levodopa 100 mg tablet See Rx Instructions PO .COMPLEX parkinsons 10/04/20 carbidopa ER 50 mg-levodopa 200 mg tablet,extended release 1 tab PO BID parkinson 10/04/20 levothyroxine 75 mcg tablet 75 mcg PO DAILY thyroid 05/31/23 sertraline 100 mg tablet 100 mg PO DAILY depression 05/31/23 fludrocortisone 0.1 mg tablet 0.1 mg PO DAILY low bp 09/20/23 midodrine 5 mg tablet 10 mg PO DAILY PRN low bp 09/20/25 pantoprazole 40 mg tablet,delayed release 40 mg PO DAILY gerd 09/20/25 sertraline 50 mg tablet 50 mg PO DAILY depression 09/20/25 donepezil 10 mg tablet (Aricept) 10 mg PO QHS #30 tabs 09/24/25 melatonin 10 mg disintegrating tablet 10 mg PO QHS #0 tabs 09/24/25 mirtazapine 15 mg tablet 15 mg PO QHS #0 tabs 09/24/25 pravastatin 40 mg tablet 40 mg PO 2300 #0 tabs 09/24/25 sennosides 8.6 mg tablet (senna) 8.6 mg PO BID #1 TAB 09/24/25 trazodone 50 mg tablet 50 mg PO QHS #0 tabs 09/24/25 Hospital Course Operations None Procedures 2-D Echocardiogram, Nuclear stress test and - (CT brain/CT cervical spine/CXR/femur xray/Hip and Pelvic xray) Summary of Care Provided Minutes Spent on Discharge: 42 Hospital Course: Mrs. Oliver is a 80-year-old white female who presents emergency department [facility] on 09/20/2025 after being found on the ground in her bedroom at home. She has a history of Parkinson's disease with adjustment in her Sinemet in the last few months. Since that point in time patient had been having new hallucinations that had progressively gotten worse. Family states that they were initially nonthreatening and to the point where she hallucinates that people are breaking into her house. They do feel that she was having such as a hallucination when they did find her on the ground as the room was in disarray. Patient was not clear on when she fell but family thought was about Saturday afternoon or evening upon presentation to the emergency room she was found to have an elevated CPK and her urinalysis was consistent with mild rhabdomyolysis. Vital signs on presentation show that she was normothermic with a heart rate of 80, respiratory 14, initial blood pressure was 159/77 with a repeat of 135/73 and pulse ox was 100% on room air. CBC showed mild chronic stable anemia with a hemoglobin of 11.9 but was otherwise unremarkable. Chemistry panel was overall unremarkable. Initial troponin was 44 with a delta of 45 and her UA was not consistent with infection. CT of the brain was unremarkable. CT of the cervical spine was unremarkable. Chest x-ray was unremarkable. Femoral x-ray is unremarkable. Hip and pelvis was unremarkable. She was admitted to medical floor and placed on IV fluids. Physical and Occupational Therapy evaluated the patient. An echocardiogram was obtained due to her troponin elevation. Echocardiogram done on 09/22/2025 showed EF of 50% with stage I diastolic dysfunction, mild posterior and inferior hypokinesis, and 1-2+ aortic valve insufficiency. Given the abnormal finding on the echo A stress test was ordered and was normal. We did check her lipids and her LDL was elevated so we increased her pravastatin from 20-40. We also placed her on a baby aspirin 81 mg daily. With regards to her hallucinations medication adjustments were made. We added Aricept 10 mg at at bedtime to help with hallucinations. We discontinued her Seroquel and hydroxyzine. We increased her mirtazapine from 7.5 to 15 mg daily and added nightly melatonin. All of this seemed to help considerably. She was still having minimal hallucinations but overall this abated the most disturbing hallucinations she was having and I do anticipate with time that should improve. She already follows with neurology for both her Parkinson's and she has history of meningioma at [facility] Main [facility] and does have upcoming appointments with both neurology and her psychiatrist. I do recommend she follow-up with her primary care physician within 1 week after discharge from [facility]. Patient was able to be discharged to SNF on 09/24/2025 in stable condition. 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 Feeling well. States she had maybe a couple of very nondisturbing hallucinations but overall much improved. Const alert, oriented x3, no apparent distress and average body habitus; Negative for well nourished Constitutional Narrative: Thin, somewhat frail-appearing, older, white female, sitting up in a chair at the bedside, appears comfortable, nontoxic General Appearance: cooperative, comfortable, well kempt and well developed Exam Limitations: no limitations HEENT normocephalic, head/scalp atraumatic and moist oral mucous membranes HEENT Narrative: mallampati 2, no thrush Eyes EOMs intact bilaterally and conjunctivae normal Eyes Narrative: no icterus Neck supple Neck Narrative: trachea midline Resp normal respiratory effort, no retractions, no use of accessory muscles and clear to auscultation bilaterally Auscultation: Negative for rales, rhonchi or wheezes Cardio regular rate, regular rhythm, S1 normal heart sound, S2 normal heart sound, no murmurs, no rub, no gallops and no clicks GI normal to inspection, nondistended, normoactive bowel sounds, soft to palpation and non-tender Extremity Extremity Narrative: Pedal and radial pulses are 2+, trace bilateral lower extremity edema, no cyanosis or clubbing Skin skin turgor normal, no jaundice, no petechiae and no mottling Neuro moves all extremities and no focal motor deficits Neuro Narrative: Bradykinesia, some word finding impairment, very mild tremor with rest today Speech: Negative for speech normal Psych Psych Narrative: Affect is normal and patient interacts appropriately, calm and very pleasant Medical Records Data Medical Nutrition Assessment Dietitian: Malnutrition Criteria Met Start: 09/21/25 14:32 Freq: Status: Active Protocol: Document 09/21/25 14:32 RMA (Rec: 09/21/25 14:32 RMA [id number]) Nutrition Malnutrition Evidence of Yes Malnutrition Exists Malnutrition (severe Chronic ): Evidenced By Suboptimal Energy Intake (Severe),Weight Loss (Severe), Physical Changes (Severe) Clinical Problem Chronic Disease or Condition Related Malnutrition Etiology severe protein-calorie malnutrition in the context of chronic disease related to inadequate energy/oral intake Signs/Symptoms as evidenced by BMI 20.6, PO meeting less than 50% estimated nutrition needs x past 2-4 weeks and less than 75% estimated nutrition needs x past 6-12 months; ~11% unintentional weight loss x past 6 months and ~5% unintentional weight loss x past 1 month; severe muscle wasting and fat depletion in the clavicle, face, arms and legs. Status Active Problem Recommendation Dietitian Continue liberalized regular diet as ordered. Recommendations/ Will add magic cup with lunch and dinner tray. Changes Will add 240mL strawberry milkshake with lunch and dinner tray. Re-offer ensure plus HP if pt accepting. Trend weight and adjust ONS as needed. Weight / BMI Weight Weight: 54.4 kg Body Mass Index (BMI) 20.5 ABG / Lab / Microbiology Data 09/22/25 08:51 09/24/25 06:07 Laboratory: Laboratory Results - last 24 hr 09/24/25 06:07: Sodium 138, Potassium 3.9, Chloride 103, Carbon Dioxide 24.6, Anion Gap 11, BUN 22 H, Creatinine 0.78, Estim Creat Clear Calc 48.97 L, Est GFR (MDRD) Non-Af 77, BUN/Creatinine Ratio 27.7 H, Glucose 105 H, Calcium 8.6 Microbiology: Microbiology 09/22/25 08:51 Blood Culture (Wb) - Right Forearm Blood Culture - Preliminary No growth in 48 hours. 09/20/25 11:40 Urine, Catheterized Urine Culture - Final Staphylococcus aureus D/C Instructions DC O2, CPAP, BIPAP Needs Home O2 Discharge instructions: No DC home with Oxygen: No Meaningful Use Info Meaningful Use Meaningful Use Diagnoses (Choose all that apply): None applicable Discharge Plan Admission Admit Date/Time: 09/20/25 14:43 Primary Reason for Your Visit: Fall/hallucinations Attending Provider: Ramila Calvillo Primary Care Provider: Lucía Ortiz Consulting Providers: Gerhard Pires Discharge Orders/Prescriptions Prescriptions: New mirtazapine 15 mg Tablet 15 mg PO QHS Qty: 0 0RF sennosides [senna] 8.6 mg Tablet 8.6 mg PO BID Qty: 1 0RF trazodone 50 mg Tablet 50 mg PO QHS Qty: 0 0RF pravastatin 40 mg Tablet 40 mg PO 2300 Qty: 0 0RF melatonin 10 mg Tablet,Disintegrating 10 mg PO QHS Qty: 0 0RF donepezil [Aricept] 10 mg tablet 10 mg PO QHS Qty: 30 0RF Continued carbidopa-levodopa 1 TABLET tablet extended release 1 tab PO BID Rx Instructions: 1 tab at 0730, 1 tab at 2300 carbidopa-levodopa 1 EACH tablet See Rx Instructions PO .COMPLEX Rx Instructions: orally ; 1 tab at 4am, 1 tab at 0730, 1.5 tab at 1030, 1.5 tab at 1330, 1.5 tab at 1630, 1.5 tab at 1930, 1.5 tab at 2300.; fludrocortisone 0.1 mg tablet 0.1 mg PO DAILY Rx Instructions: at 0400 levothyroxine 75 mcg tablet 75 mcg PO DAILY Patient Comments: TAKE 1 TABLET BY MOUTH ONCE DAILY. TAKE ON EMPTY STOMACH. FOR THYROID. Rx Instructions: at 0400 sertraline 100 mg tablet 100 mg PO DAILY Patient Comments: TAKE 1 TABLET BY MOUTH EVERY DAY Rx Instructions: at 1930 pantoprazole 40 mg tablet,delayed release (DR/EC) 40 mg PO DAILY Rx Instructions: at 0400 sertraline 50 mg tablet 50 mg PO DAILY Rx Instructions: at 1930 midodrine 5 mg Tablet 10 mg PO DAILY PRN Rx Instructions: at 1330 Discontinued pravastatin 20 MG tablet 20 mg PO QHS Patient Comments: TAKE 1 TABLET BY MOUTH EVERYDAY AT BEDTIME Rx Instructions: at 2300 hydroxyzine HCl 25 mg tablet 25 mg PO TID Rx Instructions: at 1 at 1030, 1 tab at 1330, 1 tab 1930 quetiapine 25 mg tablet 25 mg PO QHS Rx Instructions: at 2300 mirtazapine 7.5 mg tablet 7.5 mg PO QHS Rx Instructions: at 2300 Referrals / Follow Up: Lucía Ortiz MD [Primary Care Provider, Internal Medicine] - See Referral Note Referral Note: 1 week after d/c from SNF Disposition Disposition (needs filled in before D/C Order can be placed): [facility] Charges/Coding Visit Charges Inpatient E&M: 69287 SNF Disch >30 Min
[2025-09-24 07:51] LABS: Anion Gap 11 (5-15); BUN 22 mg/dL (4-19); BUN/Creat Ratio 27.7 RATIO (10-20); Calcium,Total 8.6 mg/dL (7.6-11.0); Carbon Dioxide 24.6 mmol/L (21.0-32.0); Chloride 103 mmol/L (98-108); Estimated Creatinine Clearance 48.97 ml/min (50-250); Glucose 105 mg/dL (70-99); Potassium 3.9 mmol/L (3.3-5.1)
[2025-09-24 09:19] VITALS: BP 107/57; PULSE 85; RESP 15; TEMP 36.6; O2SAT 99
--- NOTE | 2025-09-24 09:40 | CASEMGMT ---
Social Work [facility] exemption completed in the [facility] system. CHRISTIANO Lovell
--- NOTE | 2025-09-24 09:43 | CASEMGMT ---
Discharge Planning Discharge orders, signed med list, and transport time sent via [facility] to [place] [facility] [place]. Physicians will transport pt by wheelchair at 10:30a. Nursing, RN CM, and pt updated. VM left for pts daughter/HC POA (January). Beulah Palafox DC Planning Asst.
--- NOTE | 2025-09-24 10:21 | NURSING ---
ATTEMPTED TO CALL REPORT, SPOKE W/A HAILE ON [facility] THE THRESHING DEPARTMENT SUPERVISOR SENT CALL TO AND I WAS TOLD HER AND HER NURSE DO NOT KNOW ANYTHING ABOUT AN ADMISSION. INFORMED HER THAT PT WAS GOING TO BE PICKED UP IN ABOUT 10 MINUTES. SHE SAID SHE WOULD CALL AROUND TO THE OTHER HOMES AND PASS THAT INFORMATION ON. THIS NURSE REQUESTED A CALL BACK FOR REPORT FROM [facility] PT WAS GOING TO
--- NOTE | 2025-09-24 11:28 | NURSING ---
[facility] CALLED AND GOT REPORT.
== END 2025-09-24 11:00 | DRG 564 ==
LOC: ED 15:13 → MS3 15:33
PROVIDERS: Emergency Provider Emergency Medicine; PCP Internal Medicine; Visit Provider Internal Medicine
DX: T79.6XXA Traumatic ischemia of muscle, initial encounter (principal); E43 Unspecified severe protein-calorie malnutrition; I24.89 Other forms of acute ischemic heart disease; G20.A1 Parkinson's disease without dyskinesia, without mention of fluctuations; E03.9 Hypothyroidism, unspecified; F32.A Depression, unspecified; I35.1 Nonrheumatic aortic (valve) insufficiency; D32.0 Benign neoplasm of cerebral meninges; E78.00 Pure hypercholesterolemia, unspecified; I95.89 Other hypotension; K21.9 Gastro-esophageal reflux disease without esophagitis; R44.1 Visual hallucinations; E87.6 Hypokalemia; F41.9 Anxiety disorder, unspecified; K59.00 Constipation, unspecified; W19.XXXA Unspecified fall, initial encounter; R93.1 Abnormal findings on diagnostic imaging of heart and coronary circulation; Z68.20 Body mass index [BMI] 20.0-20.9, adult; Z79.01 Long term (current) use of anticoagulants; Z79.82 Long term (current) use of aspirin; Z79.890 Hormone replacement therapy; Z79.899 Other long term (current) drug therapy
CPT/HCPCS: 36415; 51702; 70450; 71045; 72125; 72170; 73502; 73552; 78452; 80048; 80053; 80061; 80076; 81001; 82550; 83605; 83690; 83735; 84100; 84484; 85025; 85610; 85730; 87040; 87077; 87086; 87088; 87186; 93005; 93017; 93306; 97116; 97162; 97165; 97530; 97535; 97802; 99285; A9500; A4216; J2405; J2785